=== PATIENT | female | born 1990 | race Caucasian/White ===

== ENCOUNTER 2019-07-28 18:10 | Observation (INO) | payer OTHER, SELFPAY ==
--- NOTE | ~2019-07-28 | CT_ITS ---
EXAMINATION: CT abdomen pelvis w con EXAM DATE: 07/28/2019 20:17 INDICATION: Abdominal pain. TECHNIQUE: Spiral CT of the abdomen and pelvis was performed following intravenous injection of 100 m L Omnipaque 350. Axial, coronal and sagittal images were reviewed. The dose-length product (DLP) fo r this examination was 205.25 mGy-cm. The exposure was tailored according to patient size (auto mA e xposure control), and iterative reconstruction (ASIR) was used as additional dose reduction technique . There is no prior study for comparison. FINDINGS: Bilobulated arterially enhancing small right liver lobe region likely flash filling hemangi madan or benign perfusion anomaly. No suspicious liver lesions. Spleen, adrenal glands, pancreas are un remarkable. There are cholecystectomy clips. Portal and splenic veins are patent. Kidneys enhance s ymmetrically. There is no hydronephrosis. The uterus is retroverted and morphologically normal. The bladder is collapsed at time of imaging limiting evaluation. There is no retroperitoneal or pelv ic lymphadenopathy. Probable identification of a normal appendix. No pericecal inflammation. The stomach and small johanna l are unremarkable. There is expected amount of colonic stool. No free intraperitoneal gas. The heart is normal in size. There are no pericardial or pleural effusions. The lung bases are unremark able. The bones are unremarkable. IMPRESSION: 1. No acute intra-abdominal findings. Reviewed, dictated and finalized at location A. ESS TRACK VEHICLE MECHANIC
--- NOTE | ~2019-07-28 | US_ITS ---
EXAMINATION: US pelvic complete w TV DATE: 07/29/2019 09:59 INDICATION: Pelvic pain. Mid abdominal pain. TECHNIQUE: Multiple transabdominal and transvaginal sonographic images of the pelvis were obtained. COMPARISON: CT abdomen and pelvis 07/28/2019 FINDINGS: TRANSABDOMINAL ULTRASOUND: The uterus measures 6.6 x 6.0 x 3.7 cm. There is no free fluid in the pelvis. TRANSVAGINAL ULTRASOUND: The endometrial complex measures 7 mm in thickness. There are small nabothian cysts in the cervix. Th e right ovary measures 3.1 x 1.5 x 1.2 cm. The left ovary measures 3.3 x 2.8 x 2.0 cm. There is shea l vascular flow in the ovaries. IMPRESSION: 1. Normal pelvis. Reviewed, dictated and finalized at location A. UTER SYSTEMS INTEGRATOR IMPRESSION: 1. Normal pelvis.
[2019-07-28 18:53] VITALS: BP 94/64; PULSE 100; RESP 18; TEMP 36.3; O2SAT 99
--- NOTE | 2019-07-28 19:00 | ED.ABDPAIN ---
HPI - Abdominal Pain General Chief Complaint: Abdominal Pain Stated Complaint: severe abdominal pain Time Seen by Provider: 07/28/19 18:58 Source: patient and RN notes reviewed Mode of arrival: ambulatory Limitations: no limitations History of Present Illness HPI narrative: Pt is a 28 y/o female who presents to the ED with c/o intermittent diffuse lower ABD pain starting several months ago. She notes that she has had intense lower ABD pain accompanying her periods for the past several months. Pt states that she began her most recent period earlier today, noting that she was passing clots of blood this morning. She states that she was evaluated for her symptoms at [facility] in [place], [place] earlier today. According to their records, she was discharged home with Oxycodone. Pt notes that due to her pain persisting, she wanted to be re-evaluated. She reports nausea and vomiting accompanying her pain, but denies any diarrhea. Pt states that she is scheduled to receive a pelvic laparoscopy procedure by her BIOMETRIC FINGERPRINTING TECHNICIAN, Dr. Worley. elicited complaint: abdominal pain Onset (ago): month(s) (several) Pain Consistency: intermittent Location: other (diffuse lower ABD) Exacerbating factors: other (menstruation) Associated symptoms: nausea, vomiting and other (vaginal bleeding) Related Data Home Medications Medication Instructions Recorded Confirmed ibuprofen 400 mg PO PRN PRN 07/25/19 07/25/19 insulin lispro [Admelog U-100 3 unit CONTINUOUS SUBCUTANEOUS 07/25/19 07/25/19 Insulin lispro] INFUSION DIRECTED levothyroxine 25 mcg PO DAILY 07/25/19 07/25/19 pantoprazole [Protonix] 40 mg PO QAM 07/25/19 07/25/19 Allergies Allergy/AdvReac Type Severity Reaction Status Date / Time No Known Allergies Allergy Verified 07/25/19 09:26 Review of Systems Review of Systems: All systems reviewed & are unremarkable except as noted in HPI and below Gastrointestinal: Gastrointestinal: Reports abdominal pain (diffuse lower ABD pain), Denies diarrhea, Reports nausea and Reports vomiting Genitourinary: Genitourinary: Reports other (vaginal bleeding) [facility] Past Medical History Medical History Healthy female adult Surgical History Surgical History No significant past surgical history Exam Narrative: Exam Narrative: APPEARANCE: No acute distress, nontoxic, resting in bed HEENT: Normocephalic, atraumatic, OMM RESPIRATORY: No respiratory distress, clear to auscultation bilaterally with no rhonchi wheezing or rales CARDIOVASCULAR: RRR s murmur ABDOMINAL: Soft, nondistended, tender palpation right lower quadrant left lower quadrant, no tenderness right upper quadrant left upper quadrant, no rebound or guarding MUSCULOSKELETAl: Moves all extremities. No clubbing, cyanosis or edema. NEURO: Awake and alert. Following commands, speech normal, no focal deficits SKIN:: Warm, dry. Normal Color PSYCHIATRIC: Normal affect/mood Course Course Emergency Course: Reviewed records patient brought from [facility]. Patient states she has chronically low blood pressure in the 90s Patient continues to have abdominal pain at this time will admit Discussed with patient and family results of workup and diagnosis. Discussed need for admission. Patient and family understand and agree to current treatment plan Consultations Consultation #1: Discussed case with pt's BIOMETRIC FINGERPRINTING TECHNICIAN, Dr. Worley. Advised to admit the pt to his service. Date: 07/28/19 Time: 20:35 Vital Signs Vital signs: Vital Signs Temperature 97.3 F L 07/28/19 18:53 Pulse Rate 100 07/28/19 18:53 Respiratory Rate 18 07/28/19 18:53 Blood Pressure 94/64 L 07/28/19 18:53 Pulse Oximetry 99 07/28/19 18:53 Temperature 97.3 F L 07/28/19 18:53 Pulse Rate 100 07/28/19 18:53 Respiratory Rate 18 07/28/19 18:53 Blood Pressure 94/64 L 07/28/19 18:53 Pulse Oximetry 99 07/28/19 18:53
[2019-07-28] MEDS: SODIUM CHLORIDE 0.9% IV 1,000 ML 999 ML IV CONT (19:32)
[2019-07-28] MEDS: KETOROLAC 30 MG/ML VIAL (*BKC) IV PUSH (19:32)
[2019-07-28] MEDS: ONDANSETRON INJ 4 MG/2 ML VIAL IV PUSH ×2 (19:32→23:38)
[2019-07-28 19:51] LABS: Basophils Absolute Auto 0.1 K/mm3 (0.0-0.1); Basophils Percent Auto 0.8 % (0.2-1.2); Eosinophils Absolute Auto 0.1 K/mm3 (0-0.3); Eosinophils Percent Auto 1.5 % (0-4.4); Hematocrit 44.6 % (37.0-47.0); Immature Granulocyte Absolute 0.01 K/mm3 (0.00-0.031); Immature Granulocyte Percent A 0.1 % (0-0.5); Lymphocytes Absolute Auto 2.45 K/mm3 (0.9-3.2); Lymphocytes Percent Auto 33.4 % (18.3-44.2); Mean Corpuscular HGB Conc 33.6 g/dl (32-36); Mean Corpuscular Hemoglobin 30.9 pg (26-34); Mean Platelet Volume 9.7 fl (7.4-10.4); Monocytes Absolute Auto 0.5 K/mm3 (0.1-0.6); Monocytes Percent Auto 7.1 % (2.6-8.5); Neutrophils Absolute Auto 4.2 K/mm3 (1.3-6.7); Neutrophils Percent Auto 57.1 % (45.5-73.1); Platelet Count Result 328 k/mm3 (150-375); Red Blood Count 4.85 M/mm3 (4.2-5.4); White Blood Count 7.3 K/mm3 (4.5-10.0)
[2019-07-28 19:56] LABS: Add Urine Microscopic? YES; Appearance Urine Clear (Clear); Bilirubin Urine Negative (Negative); Blood Urine Negative (Negative); Color Urine Yellow (Yellow); Glucose Urine UA Negative (Negative); Ketones Urine Trace mg/dL (Negative); Leukocyte Esterase Ur Negative LEU/UL (Negative); Mucus Urine Few /lpf; Nitrate Urine Negative (Negative); Protein Urine Negative (Negative); RBC Urine 0-2 /hpf (0-2); Specific Grav Ur 1.014 (1.001-1.035); Squamous Epithelial Cell Urine Many /hpf (Few); WBC Urine 0-3 /hpf
[2019-07-28 20:03] LABS: Alanine Aminotransferase 31 U/L (4-35); Albumin Level 4.8 g/dL (3.5-5.1); Alkaline Phosphatase 93 U/L (38-126); Aspartate Amino Transferase 36 U/L (14-36); Bilirubin,Total 0.6 mg/dL (0.2-1.3); Blood Urea Nitrogen 15 mg/dL (7-17); Calcium 10.1 mg/dL (8.4-10.2); Carbon Dioxide 28 mmol/L (22-30); Chloride 98 mmol/L (98-107); Estimated CRCL calculation 92 ml/min; Estimated Glomerular Filt Rate > 60; Glucose 143 mg/dL (65-105); Potassium 4.3 mmol/L (3.4-5.0); Sodium 138 mmol/L (137-145)
[2019-07-28 21:34] VITALS: BP 97/72; PULSE 81; RESP 19; TEMP 36.6; O2SAT 100
[2019-07-28 22:00] VITALS: BP 114/65; PULSE 92; RESP 18; TEMP 36.7; O2SAT 98; BMI 18.3
--- NOTE | 2019-07-28 22:07 | ADMGEN ---
This patient, Steph Camacho, was admitted to Medical Room 347-. Patient/family oriented to hospital policies and general routines including ID bracelet, bed and alarms, visiting hours, pain management, procedures, bathroom and other care routines, personal items, smoking policy, room service/diet, and visiting hours. Valuables list has been completed. Information on how to activate the Rapid Response Team has been discussed. Patient/Family are encouraged to report perceived risks to care and to ask questions if they do not understand what they are told or what they should do.
[2019-07-28] MEDS: LACTATED RINGERS 1,000 ML 125 ML IV CONT (22:15)
[2019-07-29] MEDS: ONDANSETRON INJ 4 MG/2 ML VIAL IV PUSH ×3 (04:01→21:19)
[2019-07-29 06:00] VITALS: BP 101/63; PULSE 81; RESP 16; TEMP 36.6; O2SAT 100
[2019-07-29] MEDS: LACTATED RINGERS 1,000 ML 125 ML IV CONT ×3 (06:12→22:34)
[2019-07-29 06:37] LABS: Basophils Percent Auto 0.5 % (0.2-1.2); Eosinophils Absolute Auto 0.1 K/mm3 (0-0.3); Eosinophils Percent Auto 1.7 % (0-4.4); Hematocrit 35.5 % (37.0-47.0); Hemoglobin 11.7 g/dL (12.0-15.0); Immature Granulocyte Absolute 0.01 K/mm3 (0.00-0.031); Immature Granulocyte Percent A 0.2 % (0-0.5); Lymphocytes Absolute Auto 2.35 K/mm3 (0.9-3.2); Lymphocytes Percent Auto 40.4 % (18.3-44.2); Mean Corpuscular Volume 93.9 fl (80-100); Mean Platelet Volume 10.1 fl (7.4-10.4); Monocytes Absolute Auto 0.5 K/mm3 (0.1-0.6); Monocytes Percent Auto 8.4 % (2.6-8.5); Neutrophils Absolute Auto 2.8 K/mm3 (1.3-6.7); Neutrophils Percent Auto 48.8 % (45.5-73.1); Platelet Count Result 264 k/mm3 (150-375); Red Blood Count 3.78 M/mm3 (4.2-5.4); Red Cell Distribution Width 11.9 % (11.5-14.5); White Blood Count 5.8 K/mm3 (4.5-10.0)
[2019-07-29 06:49] LABS: Alanine Aminotransferase 19 U/L (4-35); Albumin Level 3.2 g/dL (3.5-5.1); Alkaline Phosphatase 83 U/L (38-126); Aspartate Amino Transferase 21 U/L (14-36); Bilirubin,Total 0.2 mg/dL (0.2-1.3); Blood Urea Nitrogen 16 mg/dL (7-17); Calcium 8.2 mg/dL (8.4-10.2); Carbon Dioxide 26 mmol/L (22-30); Chloride 102 mmol/L (98-107); Estimated CRCL calculation 92 ml/min; Estimated Glomerular Filt Rate > 60; Glucose 244 mg/dL (65-105); Sodium 134 mmol/L (137-145)
--- NOTE | 2019-07-29 13:11 | PM.IMHP ---
H&P: HPI History of Present Illness Chief complaint: Abdominal pain-intractable Narrative: Steph Camacho is a 28 year old female this patient is a 28-year-old female presents for severe pelvic pain. Patient is incapacitated with pelvic pain. It appears to be strictly associated with her bleeding. She started having a regular. Yesterday and shortly after that she started having severe pain. Patient is known to have pelvic pain. She was diagnosed with pelvic pain in the clinic. She is also known to have some severe menorrhagia. She is not bleeding much at this time. She has a surgical plan that was proceed later this month. That includes diagnostic laparoscopy with tubal and endometrial ablation. She denies any nausea, vomiting, fever, chills. She denies any chest pain or shortness of breath. She reports normal bowel movements. Review of Systems Constitutional: Constitutional: Reports no additional constitutional complaints, Denies fatigue, Denies headache(s), Denies lethargy and Denies weakness Eyes: Eyes: Reports no additional eye complaints, Denies blurry vision and Denies photophobia ENT: Reports as per HPI, Denies headache(s) and Denies neck pain Cardiovascular: Cardiovascular: Denies chest pain, Denies diaphoresis, Denies leg edema, Denies palpitations and Denies dyspnea Respiratory: Respiratory: Denies hemoptysis, Denies dyspnea and Denies wheezing Gastrointestinal: Gastrointestinal: Denies abdominal pain, Denies melena, Denies bloating, Denies hematochezia, Denies nausea and Denies vomiting Genitourinary: Genitourinary: Reports no additional female genitourinary complaints Musculoskeletal: Musculoskeletal: Denies joint swelling, Denies neck pain, Denies numbness and Denies stiffness Neurologic: Denies Abnormal speech present, Denies confusion, Denies headache(s), Denies numbness and Denies weakness Psychiatric: Psychiatric: Denies anxiety, Denies confusion, Denies depression, Denies homicidal ideation and Denies suicidal ideation Endocrine: Endocrine: Denies fatigue and Denies palpitations Allergic/Immunologic: Allergic/Immunologic: Denies wheezing PMFSH Past Medical History Medical History Healthy female adult Surgical History Surgical History No significant past surgical history Social History Social History Alcohol intake: never Substance use: never Gender identity (if verbalized by the patient): Female Spiritual care concerns: No Agree to blood products: No Meds Home Medications and Allergies Home Medications Medication Instructions Recorded Confirmed Type ibuprofen 400 mg PO Q4-6H PRN 07/25/19 07/28/19 History insulin lispro [Admelog U-100 3 unit CONTINUOUS SUBCUTANEOUS 07/25/19 07/28/19 History Insulin lispro] INFUSION DIRECTED pantoprazole [Protonix] 40 mg PO QAM 07/25/19 07/28/19 History levothyroxine 25 mcg PO DAILY 07/28/19 07/28/19 History Allergies Allergy/AdvReac Type Severity Reaction Status Date / Time No Known Allergies Allergy Verified 07/25/19 09:26 Vital Signs Vital Signs - 24 hr 07/28/19 18:53 07/28/19 21:34 07/28/19 22:00 Temperature 97.3 F L 97.9 F 98.1 F Pulse Rate 100 81 92 Respiratory Rate 18 19 18 Blood Pressure 94/64 L 97/72 L 114/65 Pulse Oximetry 99 100 98 07/29/19 06:00 Temperature 97.8 F Pulse Rate 81 Respiratory Rate 16 Blood Pressure 101/63 Pulse Oximetry 100 Exam Const: General: healthy appearing, comfortable and no acute distress; No confused Orientation/consciousness: No confused Eyes: Direct Ophthalmoscopy: No photophobia Resp: Auscultation: clear to auscultation bilaterally, no rales, no rhonchi and no wheezes Cardio: Rate: regular rate Heart sounds: no click, no murmurs and no rubs GI: Inspection: non-distended GI Palp: No abdominal tenderness Auscultation: normal bowel sounds Neuro: General: No
[2019-07-29] MEDS: DEXTROSE 50% 25 GM/50 ML SYRINGE IV PUSH (13:21)
[2019-07-29 13:59] LABS: Glucose Point of Care 45 (65-105)
[2019-07-29 13:59] LABS: Glucose Point of Care 144 (65-105)
[2019-07-29 13:59] LABS: Glucose Point of Care 41 (65-105)
[2019-07-29 13:59] LABS: Glucose Point of Care 43 (65-105)
[2019-07-29 14:00] VITALS: BP 92/59; PULSE 89; RESP 16; TEMP 36.2; O2SAT 99
[2019-07-29 14:27] VITALS: BMI 18.3
[2019-07-29] MEDS: ESTROGENS, CONJUGATED 25 MG/5 ML VIAL IM (14:43)
[2019-07-29] MEDS: WATER, STERILE FOR INJECTION 10 ML VIAL XX (15:06)
[2019-07-29 16:49] LABS: Glucose Point of Care 228 (65-105)
[2019-07-29 21:33] LABS: Glucose Point of Care 223 (65-105)
[2019-07-29 22:00] VITALS: BP 82/54; PULSE 80; RESP 16; TEMP 36.2; O2SAT 100
[2019-07-29] MEDS: LACTATED RINGERS 500 ML 999 ML IV CONT (22:31)
--- NOTE | 2019-07-29 22:38 | ECG_ITS ---
Measurements Intervals Claude Rate: 86 P: 43 MT: 161 QRS: 68 QRSD: 78 T: 58 QT: 375 QTc: 449 Interpretive Statements SINUS RHYTHM NORMAL ECG Electronically Signed On 07-30-2019 7:27:25 CLOTH EXAMINER by Pete Hernandez D.O.
[2019-07-29 23:42] VITALS: BP 109/68
[2019-07-30] MEDS: LACTATED RINGERS 1,000 ML 125 ML IV CONT (03:17)
[2019-07-30] MEDS: ONDANSETRON INJ 4 MG/2 ML VIAL IV PUSH ×2 (03:19→09:00)
[2019-07-30 05:40] VITALS: BP 110/64; PULSE 92; RESP 18; TEMP 36.1; O2SAT 98
[2019-07-30 05:41] LABS: Glucose Point of Care 200 (65-105)
--- NOTE | 2019-07-30 05:43 | PC.NURSE ---
Patient has been NPO since midnight
[2019-07-30 10:00] LABS: Hematocrit 33.4 % (37.0-47.0); Hemoglobin 11.3 g/dL (12.0-15.0); Mean Corpuscular HGB Conc 33.8 g/dl (32-36); Mean Corpuscular Hemoglobin 31.6 pg (26-34); Mean Corpuscular Volume 93.3 fl (80-100); Platelet Count Result 262 k/mm3 (150-375); Red Blood Count 3.58 M/mm3 (4.2-5.4); Red Cell Distribution Width 11.9 % (11.5-14.5); White Blood Count 6.6 K/mm3 (4.5-10.0)
[2019-07-30 10:16] LABS: Blood Urea Nitrogen 12 mg/dL (7-17); Calcium 8.3 mg/dL (8.4-10.2); Carbon Dioxide 28 mmol/L (22-30); Chloride 101 mmol/L (98-107); Estimated CRCL calculation 108 ml/min; Estimated Glomerular Filt Rate > 60; Glucose 192 mg/dL (65-105); Potassium 3.8 mmol/L (3.4-5.0); Sodium 132 mmol/L (137-145)
[2019-07-30 12:24] LABS: Glucose Point of Care 173 (65-105)
--- NOTE | 2019-07-30 13:22 | PM.GYNPNOP ---
ASW SPECIALIST - A/P Assessment and plan (1) Dysmenorrhea: Code(s): N94.6 - Dysmenorrhea, unspecified Status: Acute (2) Intractable lower abdominal pain: Code(s): R10.30 - Lower abdominal pain, unspecified Status: Acute Assessment and Plan: Successful trial of oral pain medication was conducted this morning. She got IM Premarin yesterday. Her bleeding has tapered off. We have agreed to discharge her home a with oral pain medication. She is going to have diagnostic scope in ablation next week. Time Spent With Patient Time: Total time spent is greater than 50% in coordination of care (as documented) at patient's floor/unit and/or counseling patient: Time with patient: less than 15 minutes ASW SPECIALIST- PN:Subj Post-Op Subjective Date/time seen: 07/30/19 13:22 The patient was given an IM Premarin yesterday. Her bleeding has tapered off. Her pain is improved. She was given oral pain medication. Her pain is reasonably managed. Subjective: patient reports feeling better and patient is tolerating oral intake Exam Const: General: healthy appearing, comfortable and no acute distress Resp: Auscultation: clear to auscultation bilaterally, no rales, no rhonchi and no wheezes Cardio: Rate: regular rate Heart sounds: no click, no murmurs and no rubs GI: Inspection: non-distended GI Palp: No abdominal tenderness Auscultation: normal bowel sounds Extrem: General: normal to inspection, no pedal edema and no calf tenderness ASW SPECIALIST - PN: Obj Data Vital Signs Vital Signs: Vital Signs - 24 hr 07/29/19 14:00 07/29/19 22:00 07/29/19 23:42 Temperature 97.1 F L 97.2 F L Pulse Rate 89 80 Respiratory Rate 16 16 Blood Pressure 92/59 L 82/54 L 109/68 Pulse Oximetry 99 100 07/30/19 05:40 Temperature 97 F L Pulse Rate 92 Respiratory Rate 18 Blood Pressure 110/64 Pulse Oximetry 98 Intake/Output Intake/Output: Intake & Output 07/27/19 07/28/19 07/29/19 07/30/19 23:59 23:59 23:59 23:59 Intake Total 1000 4630 2690 Output Total 1800 200 Balance 1000 2830 2490 Meds/Results Medications: Active Medications Generic Name Dose Route Start Last Admin Trade Name Rohit PRN Reason Stop Dose Admin Dextrose 12.5 gm 07/29/19 12:49 07/29/19 13:21 Dextrose 50% Syringe IV PUSH 12.5 gm PRN PRN Administration Hypoglycemia Protocol Fentanyl Citrate 50 mcg 07/29/19 08:05 07/30/19 09:00 Sublimaze IV PUSH 50 mcg Q2HR PRN Administration Pain Rated 7-10 Glucagon 1 mg 07/29/19 12:49 Glucagon For Inj IM PRN PRN Hypoglycemia Protocol Glucose 15 gm 07/29/19 12:49 Glutose 15 PO PRN PRN Hypoglycemia Protocol Dextrose 1,000 mls @ 100 mls/hr 07/29/19 12:49 Dextrose 5% 1,000 Ml IVPB PRN PRN Hypoglycemia Protocol Insulin Aspart 2 - 5 units 07/29/19 17:00 07/30/19 11:34 Novolog SUB-Q Not Given TIDWM RACH Protocol Naloxone HCl 2 mg 07/29/19 13:03 Narcan IV PUSH ONCE PRN Opioid Reversal Ondansetron HCl 4 mg 07/28/19 20:48 07/30/19 09:00 Zofran Inj IV PUSH 4 mg Q4H PRN Administration Nausea Radiology Results: ITS Impressions Abdomen/Pelvis CT 07/28/19 20:20 IMPRESSION: 1. No acute intra-abdominal findings. Pelvic/Transvag US 07/29/19 10:05 IMPRESSION: 1. Normal pelvis. Labs CBC & Chem 7: 07/30/19 09:29 07/30/19 09:29 Labs: Laboratory Results - last 24 hr 07/29/19 07/29/19 07/29/19 12:45 13:01 13:18 WBC RBC Hgb Hct MCV MCH MCHC RDW Plt Count MPV Sodium Potassium Chloride Carbon Dioxide BUN Creatinine Estim Creat Clear Calc Estimated GFR Glucose POC Capillary Glucose 41 L* 45 L* 43 L* Calcium 07/29/19 07/29/19 07/29/19 13:44 16:44 21:25 WBC RBC Hgb Hct MCV MCH MCHC RDW Plt Count MPV So
--- NOTE | 2019-07-30 14:41 | PM.IMCN ---
Assessment and Plan Assessment and plan (1) Dysmenorrhea: Code(s): N94.6 - Dysmenorrhea, unspecified Status: Acute Assessment and Plan: Steph Camacho is a 28 year old female presented emergency department with a complaint of pelvic pain patient has history of endometriosis and menometrorrhagia patient was seen by her OBGYN started the patient on IV pain medication as well as or we were consulted as patient has history of type 1 diabetes and using her pump, and the blood sugars are reasonably well controlled patient denies any complaint of polyuria polydipsia polyphagia, denies any fever or chills, (2) Diabetes: Code(s): E11.9 - Type 2 diabetes mellitus without complications Status: Acute Assessment and Plan: Patient with history of type 1 diabetes on insulin pump which is managed by herself will continue to monitor with sliding scale if needed HPI Data of Consult Consult date: 08/04/19 Requesting Physician: Andreas Worley MD Primary Care Provider: Rodney Grier MD Consult Narrative Narrative: Steph Camacho is a 28 year old female presented emergency department with a complaint of pelvic pain patient has history of endometriosis and menometrorrhagia patient was seen by her OBGYN started the patient on IV pain medication as well as or we were consulted as patient has history of type 1 diabetes and using her pump, and the blood sugars are reasonably well controlled patient denies any complaint of polyuria polydipsia polyphagia, denies any fever or chills, Review of Systems Review of Systems: All systems reviewed & are unremarkable except as noted in HPI and below PMFSH Past Medical History Medical History Healthy female adult Surgical History Surgical History No significant past surgical history Social History Social History Smoking status: Never smoker Alcohol intake: never Substance use: never Gender identity (if verbalized by the patient): Female Spiritual care concerns: No Agree to blood products: No Meds Home Medications and Allergies Home Medications Medication Instructions Recorded Confirmed Type ibuprofen 400 mg PO Q4-6H PRN 07/25/19 07/28/19 History insulin lispro [Admelog U-100 3 unit CONTINUOUS SUBCUTANEOUS 07/25/19 07/28/19 History Insulin lispro] INFUSION DIRECTED pantoprazole [Protonix] 40 mg PO QAM 07/25/19 07/28/19 History levothyroxine 25 mcg PO DAILY 07/28/19 07/28/19 History hydrocodone-acetaminophen 1 - 2 tablet PO Q4H PRN #35 tablet 07/30/19 Rx Allergies Allergy/AdvReac Type Severity Reaction Status Date / Time No Known Allergies Allergy Verified 07/25/19 09:26 Vital Signs Vital Signs - 24 hr 07/29/19 22:00 07/29/19 23:42 07/30/19 05:40 Temperature 97.2 F L 97 F L Pulse Rate 80 92 Respiratory Rate 16 18 Blood Pressure 82/54 L 109/68 110/64 Pulse Oximetry 100 98 Exam Narrative: Exam Narrative: Patient does appear to be in pain Const: General: no acute distress and uncomfortable HENMT: General nose exam: nares normal Mouth: Yes moist mucous membranes Eyes: General: appearance normal, both eyes and all related structures Sclera: sclerae normal Neck: Neck: supple Resp: Effort & Inspection: normal respiratory effort Auscultation: clear to auscultation bilaterally Cardio: Rate: regular rate Rhythm: regular rhythm GI: Auscultation: normal bowel sounds Other: Diffusely tender Skin: General skin exam: normal color and no rashes or lesions noted Neuro: Speech: normal speech Sensory Exam: normal sensation Extrem: General: normal to inspection Psych: Affect: anxious affect Results Labs CBC & Chem 7: 07/30/19 09:29 07/30/19 09:29 Labs: Short CBC 07/30/19 Range/Units 09:29 WBC 6.6 (4.5-10.0) K/mm3 Hgb 11.3 L (12.0-15.0) g/dL Hct 33.4 L (37.0-
--- NOTE | 2019-08-16 12:56 | PM.DS ---
DS: Diagnosis Admitting Diagnosis Admitting Diagnosis: Lower abdominal pain, unspecified DS: Summary Hospital Course Reason for hospitalization: Severe pelvic pain Hospital Course: Patient was observed in the hospital for pain management and evaluation of pelvic pain. Over time she had better pain control. We able to discharge her after about 48 hours in the hospital. She was discharged to home with the hopes of completing a procedure to help for her bleeding and dysmenorrhea within a short time frame. Status at Discharge Functional status at discharge: independent ambulation Time Spent with Patient Time attestation: Total time spent providing and/or coordinating discharge services: Time spent: Less than 30 minutes Discharge Plan Discharge Consulting providers: Marisa Renee ; Pete Hernandez ; Mukund Troncoso V. ; Kulwinder Rankin Discharging Clinician: Andreas Worley Patient Disposition: Home, Self-Care Activity: as tolerated Diet: diabetic Patient Instructions: Antibiotic Form, Conjugated Estrogens (By injection), Pain Management Older Adults (DC), Opioid Pain Management (DC) Stand Alone Forms: General Discharge Information Follow-up/Referrals: primary care provider [Other] - 1 Week Discharge Medications: Continued pantoprazole [Protonix] 40 mg Tablet,Delayed Release (Dr/Ec) 40 mg PO QAM RF: 0 insulin lispro [Admelog U-100 Insulin lispro] 100 unit/mL Solution 3 unit continuous subcutaneous infusion DIRECTED RF: 0 ibuprofen 400 mg Tablet 400 mg PO Q4-6H PRN (Reason: Pain) RF: 0 levothyroxine 25 mcg Tablet 25 mcg PO DAILY RF: 0 No Action hydrocodone-acetaminophen 5-325 mg tablet 1 - 2 tablet PO Q4H PRN (Reason: pain) Qty: 25 RF: 0 Date of admission: 07/28/19 20:48 Primary Care Provider: Rodney Grier Admitting Provider: Andreas Worley Discharge Date/Time: 07/30/19 14:56 Attending physician on admission: Andreas Worley Condition: Stable
== END 2019-07-30 14:56 | disposition home or self-care (01) ==
LOC: ANHED 19:06 → ANH3MED 20:58
PROVIDERS: Family Medicine; Admitting Provider Obstetrics & Gynecology; Emergency Provider Emergency Medicine; PCP Family Medicine; Visit Provider Obstetrics & Gynecology
DX: R10.2 Pelvic and perineal pain (principal); N94.6 Dysmenorrhea, unspecified; N92.0 Excessive and frequent menstruation with regular cycle; E10.9 Type 1 diabetes mellitus without complications; Z79.4 Long term (current) use of insulin; Z96.41 Presence of insulin pump (external) (internal); Z79.899 Other long term (current) drug therapy
CPT/HCPCS: 36415; 74177; 76830; 76856; 80048; 80053; 81001; 81025; 85025; 85027; 93005; 96361; 96372; 96374; 96375; 96376; 99285; A9270; G0378; G0379; J1410; J1885; J2405; J3010; J7030; J7120; Q9967

== ENCOUNTER 2019-08-22 17:32 | Inpatient (IN) | payer OTHER, SELFPAY ==
[2019-08-22] VITALS (12 sets, daily range): BP systolic 86–113; BP diastolic 47–82; PULSE 93–109; RESP 13–22; TEMP 36.6–36.9; O2SAT 98–100
--- NOTE | ~2019-08-22 | CT_ITS ---
EXAMINATION: CT abdomen pelvis w con DATE: 08/22/2019 20:37 INDICATION: Abdominal pain TECHNIQUE: Computed tomography (CT) of the abdomen and pelvis was performed with 100 cc Omnipaque 350 intravenous contrast. The dose-length product was 203.34 mGy-cm. Automated exposure control and iterative reconstruction technique were employed. COMPARISON: CT dated 08/14/2019 FINDINGS: Lung bases are unremarkable. Heart size normal. No pleural or pericardial effusion. Status post cholecystectomy. The liver, spleen, pancreas, adrenal glands and kidneys are unremarkable. 3.7 c m left ovarian cyst. Small amount of free fluid in the left adnexa. There is fluid in the endometrial canal. No evidence for abscess. There is fluid with air-fluid levels throughout the small bowel whic h may reflect ileus or enteritis. Interval resolution of free air since prior examination. No acute o sseous abnormality. No significant vascular abnormality. No lymphadenopathy. IMPRESSION: 1. Small bowel contains fluid throughout with a few scattered air-fluid levels, ileus versus enteriti s. 2: 3.7 cm left ovarian cyst with small amount of adjacent free fluid. 3: Fluid in the endometrial canal, nonspecific. Reviewed, dictated and finalized at location A. ERY ATTENDANT IMPRESSION: 1. Small bowel contains fluid throughout with a few scattered air-fluid levels, ileus versus enteritis. 2: 3.7 cm left ovarian cyst with small amount of adjacent free fluid. 3: Fluid in the endometrial canal, nonspecific.
--- NOTE | ~2019-08-22 | XR_ITS ---
EXAMINATION: XR abdomen obstructive series DATE: 08/23/2019 08:03 INDICATION: Abdominal pain. TECHNIQUE: Upright and supine views of the abdomen on 3 radiographs were obtained. COMPARISON: CT abdomen and pelvis 08/22/2019 FINDINGS: There are no dilated loops of bowel. There is a large volume of stool in the colon. No free intraperitoneal gas. Surgical clips in the right upper quadrant are likely from cholecystectomy. IMPRESSION: 1. Nonobstructive bowel gas pattern. Reviewed, dictated and finalized at location A. ER
--- NOTE | ~2019-08-22 | XR_ITS ---
EXAMINATION: XR abdomen obstructive series DATE: 08/24/2019 09:40 INDICATION: Abdomen pain. Follow up obstipation/enteritis. TECHNIQUE: Supine and upright views of the abdomen. FINDINGS: 08/23/2019 The visualized lung parenchyma is normal.. There is a nonobstructive bowel gas pattern. Gas and stool are seen throughout the colon to the level of the rectum. There is no free air. Moderate colonic fe brittany loading. There are cholecystectomy clips. IMPRESSION: 1. No acute abdominal abnormality. Reviewed, dictated and finalized at location A. OOLER
--- NOTE | ~2019-08-22 | US_ITS ---
EXAMINATION: US pelvic complete DATE: 08/25/2019 16:35 INDICATION: Status post operative infection TECHNIQUE: Multiple transabdominal sonographic images of the pelvis were obtained. Patient refused tr ansvaginal imaging. COMPARISON: None. FINDINGS: The anteverted uterus measures 9.6 x 2.6 x 6.9 cm. The endometrial complex measures 6-7 mm in thickn ess. The right ovary measures 3.7 x 2.3 x 2.2 cm. After flow is identified in the right ovary on colo r Doppler. The left ovary is not visualized. There is a small amount of free fluid in the cul-de-sac. IMPRESSION: 1. Small amount of likely physiologic free fluid in the cul-de-sac. Otherwise unremarkable pelvic ult rasound. Reviewed, dictated and finalized at location A. OFF DRIVER IMPRESSION: 1. Small amount of likely physiologic free fluid in the cul-de-sac. Otherwise u nremarkable pelvic ultrasound.
[2019-08-22 18:46] LABS: Basophils Absolute Auto 0.1 K/mm3 (0.0-0.1); Basophils Percent Auto 1.3 % (0.2-1.2); Eosinophils Absolute Auto 0.1 K/mm3 (0-0.3); Eosinophils Percent Auto 2.2 % (0-4.4); Hematocrit 38.9 % (37.0-47.0); Immature Granulocyte Absolute 0.01 K/mm3 (0.00-0.031); Immature Granulocyte Percent A 0.2 % (0-0.5); Lymphocytes Absolute Auto 1.42 K/mm3 (0.9-3.2); Mean Corpuscular HGB Conc 33.4 g/dl (32-36); Mean Corpuscular Hemoglobin 30.5 pg (26-34); Mean Corpuscular Volume 91.3 fl (80-100); Mean Platelet Volume 9.9 fl (7.4-10.4); Monocytes Absolute Auto 0.6 K/mm3 (0.1-0.6); Monocytes Percent Auto 11.5 % (2.6-8.5); Neutrophils Absolute Auto 3.2 K/mm3 (1.3-6.7); Neutrophils Percent Auto 58.8 % (45.5-73.1); Platelet Count Result 304 k/mm3 (150-375); Red Blood Count 4.26 M/mm3 (4.2-5.4); Red Cell Distribution Width 12.3 % (11.5-14.5); White Blood Count 5.5 K/mm3 (4.5-10.0)
[2019-08-22 18:47] LABS: Glucose Point of Care 111 (65-105)
[2019-08-22 19:00] LABS: Alanine Aminotransferase 22 U/L (4-35); Albumin Level 4.3 g/dL (3.5-5.1); Alkaline Phosphatase 60 U/L (38-126); Aspartate Amino Transferase 30 U/L (14-36); Bilirubin,Total 0.7 mg/dL (0.2-1.3); Blood Urea Nitrogen 13 mg/dL (7-17); Calcium 9.3 mg/dL (8.4-10.2); Carbon Dioxide 22 mmol/L (22-30); Chloride 99 mmol/L (98-107); Estimated CRCL calculation 111 ml/min; Estimated Glomerular Filt Rate > 60; Glucose 122 mg/dL (65-105); Potassium 4.1 mmol/L (3.4-5.0); Sodium 133 mmol/L (137-145)
--- NOTE | 2019-08-22 19:28 | ED.FEVER ---
HPI - Fever General Chief Complaint: Fever Stated Complaint: FEVER, ABD PAIN, VOMITING Time Seen by Provider: 08/22/19 19:18 Source: patient and old records reviewed Mode of arrival: EMS Limitations: no limitations History of Present Illness HPI Narrative: The pt is a 28 y/o female who presents to the ED, via EMS, c/o fever onset 2-3 days ago. Pt states that her fever peaked at around 101 degrees at home, while EMS had a recorded temperature of 100.4 today. Pt states that she had an endometrial ablation, tubal ligation, and ovarian cyst removal. Old records indicate this was performed on 08/06/[address] Worley. Pt states that she had a bad infection at that time, so she was kept inpatient and discharged six days ago. Pt states that she received [place], Levofloxacin, and Metronidazole. She states that she has not been able to take her medications due to N/V. Pt reports cramping and stabbing lower ABD pain and brown vaginal discharge. MD elicited complaint: fever Onset (ago): day(s) (2-3) Context: recent procedure (Endometrial ablation, tubal ligation, ovarian cyst removal) Associated symptoms: abdominal pain (Cramping, stabbing, lower), nausea, vomiting and vaginal discharge (Brown) Treatments prior to arrival fever: antibiotics (Metronidazole and Levofloxacin) Related Data Home Medications Medication Instructions Recorded Confirmed ibuprofen 400 mg PO Q4-6H PRN 07/25/19 08/23/19 insulin lispro [Admelog U-100 3 unit CONTINUOUS SUBCUTANEOUS 07/25/19 08/23/19 Insulin lispro] INFUSION DIRECTED pantoprazole [Protonix] 40 mg PO QAM 07/25/19 08/23/19 levothyroxine 25 mcg PO QAM 07/28/19 08/23/19 Allergies Allergy/AdvReac Type Severity Reaction Status Date / Time Latex, Natural Rubber Allergy Hives Verified 08/14/19 12:28 peanut oil Allergy Difficulty Verified 08/14/19 12:28 Breathing metoclopramide [From Reglan] AdvReac Anxiety Verified 08/23/19 00:26 Review of Systems Review of Systems: Narrative: Review of Systems Constitutional: Positive for fever. Gastrointestinal: Positive for nausea, vomiting, and cramping/stabbing lower ABD pain. Genitourinary: Positive for brown vaginal discharge. All systems reviewed & are unremarkable except as noted in HPI and below PMFSH Past Medical History Medical History (Updated 08/23/19 @ 01:01 by Izzy Rosario MD) Acute cervicitis Dysmenorrhea Endometritis GERD (gastroesophageal reflux disease) History of seizure As a child. History of UTI Hypothyroidism Ovarian cyst Type 1 diabetes mellitus Surgical History Surgical History (Updated 08/14/19 @ 19:02 by Sigrid Mejía PA-C) Status post cholecystectomy Status post endometrial ablation Status post ovarian cystectomy Status post tubal ligation Social History Social History (Updated 08/14/19 @ 19:03 by Sigrid Mejía PA-C) Social History: The patient lives in [place], [place] with her 8-year-old daughter. She is a [id number] mother. She denies alcohol and drug abuse. Smoking packs per day: 0.33 Smoking cigarettes per day: 6.6 Years smoked: 10 Smoking pack-years: 3.30 Smoking status: Current every day smoker Tobacco type: cigarettes Second hand tobacco smoke exposure: Yes (significant other smokes) Alcohol intake: never Substance use: former Substance use type: marijuana Gender identity (if verbalized by the patient): Female Spiritual care concerns: No Agree to blood products: Yes Comments PCP: Dr. Grier LINE PERSON: Dr. Worley Exam Narrative: Exam Narrative: Constitutional: Appears well-developed. No distress. HENT: Head: Normocephalic. Nose: Nose normal. Mouth/Throat: Oropharynx is clear and moist. Eyes: Conjunctiva are normal. Neck: Normal range of motion. Neck supple. Cardiovascular: Normal rate and regular rhythm. Pulmonary/Chest: Effort normal and breath sounds normal. Abdominal: Soft. There is bilateral lower abdominal tenderness. Musculoskeletal:
[2019-08-22] MEDS: KETOROLAC 15 MG/ML VIAL (*BKC) IV PUSH (20:05)
--- NOTE | 2019-08-22 20:46 | PC.NURSE ---
PT STILL C/O PAIN. MADE AWARE, NO NEW ORDERS
[2019-08-22] MEDS: TRIMETHOBENZAMIDE HCL 200 MG/2 ML VIAL IM (20:47)
[2019-08-22 22:15] LABS: Glucose Point of Care 87 (65-105)
[2019-08-22 23:30] LABS: Glucose Point of Care 93 (65-105)
[2019-08-23] VITALS: BP 108/61; PULSE 92; RESP 16; TEMP 36.8; O2SAT 100; BMI 19.2
--- NOTE | 2019-08-23 | ADMGEN ---
This patient, Steph Camacho, was admitted to 3 [facility] Surg Room 304-01. Patient/family oriented to hospital policies and general routines including ID bracelet, bed and alarms, visiting hours, pain management, procedures, bathroom and other care routines, personal items, smoking policy, room service/diet, and visiting hours. Valuables list has been completed. Information on how to activate the Rapid Response Team has been discussed. Patient/Family are encouraged to report perceived risks to care and to ask questions if they do not understand what they are told or what they should do.
[2019-08-23] MEDS: DEXTROSE 5%/0.45% SOD CHL 1,000 ML 100 ML IV CONT ×3 (00:05→19:23)
[2019-08-23] MEDS: SODIUM CHLORIDE 0.9% IV 500 ML 999 ML IV CONT (02:15)
[2019-08-23] MEDS: HYDROMORPHONE HCL 1 MG/ML INJ 0.5 MG IV PUSH ×5 (02:35→20:46)
[2019-08-23 05:45] VITALS: BP 112/66; PULSE 88; RESP 18
[2019-08-23 06:00] VITALS: BP 90/48; PULSE 81; RESP 16; TEMP 36.7; O2SAT 98
[2019-08-23] MEDS: LEVOTHYROXINE SODIUM INJ 100 MCG/5 ML VIAL 12.5 MCG IV PUSH (06:04)
[2019-08-23] MEDS: PROMETHAZINE HCL 25 MG/ML AMPUL IM (06:15)
[2019-08-23 06:20] VITALS: BP 88/48
[2019-08-23 06:30] LABS: Glucose Point of Care 185 (65-105)
[2019-08-23 06:35] LABS: Basophils Percent Auto 1.1 % (0.2-1.2); Eosinophils Absolute Auto 0.1 K/mm3 (0-0.3); Eosinophils Percent Auto 3.2 % (0-4.4); Hematocrit 34.8 % (37.0-47.0); Hemoglobin 11.6 g/dL (12.0-15.0); Immature Granulocyte Absolute 0.01 K/mm3 (0.00-0.031); Immature Granulocyte Percent A 0.3 % (0-0.5); Lymphocytes Absolute Auto 1.65 K/mm3 (0.9-3.2); Lymphocytes Percent Auto 43.4 % (18.3-44.2); Mean Corpuscular HGB Conc 33.3 g/dl (32-36); Mean Corpuscular Hemoglobin 30.8 pg (26-34); Mean Corpuscular Volume 92.3 fl (80-100); Mean Platelet Volume 9.8 fl (7.4-10.4); Monocytes Absolute Auto 0.6 K/mm3 (0.1-0.6); Monocytes Percent Auto 15.8 % (2.6-8.5); Neutrophils Absolute Auto 1.4 K/mm3 (1.3-6.7); Neutrophils Percent Auto 36.2 % (45.5-73.1); Platelet Count Result 252 k/mm3 (150-375); Red Blood Count 3.77 M/mm3 (4.2-5.4); Red Cell Distribution Width 12.3 % (11.5-14.5); White Blood Count 3.8 K/mm3 (4.5-10.0)
[2019-08-23 06:49] LABS: Blood Urea Nitrogen 16 mg/dL (7-17); Calcium 8.4 mg/dL (8.4-10.2); Carbon Dioxide 22 mmol/L (22-30); Chloride 100 mmol/L (98-107); Estimated CRCL calculation 96 ml/min; Estimated Glomerular Filt Rate > 60; Glucose 176 mg/dL (65-105); Magnesium 1.8 mg/dL (1.6-2.3); Potassium 3.6 mmol/L (3.4-5.0); Sodium 132 mmol/L (137-145)
--- NOTE | 2019-08-23 08:21 | PM.CNGS ---
Assessment and Plan Assessment and plan (1) Ileus: Onset Date: ~08/22/19 Code(s): K56.7 - Ileus, unspecified Status: Acute Assessment and Plan: This time I would recommend NPO status until it appears by radiology radiologic studies that the ileus is resolving. Will also follow clinically to see if the patient is passing flatus and having bowel movements. If not nauseated may move patient to clear liquids and try MiraLax p.o. in the next 24-48 hours. Even though she has been on antibiotics will check urinalysis since she is having increased pain after each void. (2) Ovarian cyst: Qualifiers: Laterality: left Qualified Code(s): N83.202 - Unspecified ovarian cyst, left side Code(s): N83.209 - Unspecified ovarian cyst, unspecified side Status: Acute (3) Pelvic pain: Code(s): R10.2 - Pelvic and perineal pain Status: Acute Assessment and Plan: This may be constipation vs the endometritis suspected by Dr. San. Will give Fleets enema this AM as Pt states she has not had a normal BM in sometime and none at all since Thrus. (4) Smoker: Code(s): F17.200 - Nicotine dependence, unspecified, uncomplicated Status: Acute (5) Type 1 diabetes mellitus: Code(s): E10.9 - Type 1 diabetes mellitus without complications Status: Acute (6) Status post endometrial ablation: Code(s): Z98.890 - Other specified postprocedural states Status: Acute History of Present Illness Consult details Consult date: 08/23/19 Reason for consult: abdominal pain Narrative: This patient is a pleasant 28-year-old white female who approximately 2 weeks ago underwent an elective laparoscopy, D&C, hysteroscopy with uterine ablation. Please see Dr. Adams's note for details. Patient states that Dr. San noted a cyst at the time of her laparoscopy and tubal ligation. Otherwise the laparoscopy was apparently unremarkable. During her D and C however, he apparently found a area of blood clot within the uterus and then proceeded to a uterine ablation. Since her surgery on 08/06/2019 she has typically had an increase in pain each time after she urinated. Otherwise she has been OK with the expected amount of abd pain [id number]. Approximately 7 days after her surgery she was admitted to the hospital and just went home about 5 days ago. At that time she was placed on IV antibiotics and she went home on metronidazole and Levaquin. She has continued to experience lower abdominal pain. She states that she took hydrocodone pain medication for several days after the initial surgery but because she does not like the way it makes her feel she stopped it and then has been trying to stay off of it. She became somewhat constipated while on the hydrocodone and this has not yet resolved. She denies diarrhea over the last 2-3 days. She has continued and was still on the metronidazole and Levaquin when she return to the emergency room last night. She was not running a fever here but claimed to have a fever of 102 at home yesterday. Patient's age states she continues to have a brownish discharge from the vagina and pain with urination. Repeat urinalysis was not done last night in the emergency room probably because she has been on the antibiotics but I think it is reasonable to repeat this. (This was ordered for this morning). Workup in the [facility] ER last night including a CT scan of the abdomen [place] pelvis revealed that the patient has what is appears to be either an ileus or enteritis of the small bowel. She also had some free fluid in the lower abdomen. This was compared to a CT scan done when she came into the hospital on 08/12/2019 and apparently at that time she still had a little free air or CO2 gas in the abdomen and this had resolved. There was also a 3.7 cm left ovarian cyst which is probably the cyst that Dr. san mention seen when he did the laparoscopy. At this time have discus
[2019-08-23] MEDS: GLYCERIN ADULT 1 SUPP.RECT RECTAL (10:06)
--- NOTE | 2019-08-23 11:29 | PM.IMHP ---
H&P: HPI History of Present Illness Chief complaint: ileus Narrative: Date of Service 08/23/19 The supervising physician for this history and physical is Dr. Fariba Martin. Ms. Camacho is a 28 yo F with history of type 1 diabetes, hypothyroidism, GERD who presented to the ED for evaluation of pelvic pain, vaginal discharge, and nausea and vomiting. She underwent diagnostic laparoscopy, bilateral tubal ligation, left ovarian cystectomy, and adhesiolysis, endometrial ablation with hysteroscopy by Dr. Worley 08/06/19 for pelvic pain and menorrhagia. She notes that after her procedure she developed pelvic pain, nausea, and vomiting and [facility]. She was discharged from the ED and she called Dr. Worley's office and I believe directed her to [facility] ED same day 08/14/19. She was admitted from 08/14/19 to 08/16/19 under the care of Dr. Worley during which time postoperative infection, and endometritis is documented and she was treated with IV ampicillin and discharged with oral Levaquin and metronidazole. She was also noted to have malodorous vaginal discharge at that time. She re-presented to the ED yesterday 08/22/19 again with pelvic pain, nausea, and vomiting. She is still having brown malodorous vaginal discharge. She describes a constant pain across her lower abdomen/pelvis on both sides with intermittent episodes of sharp stabbing pain that are occurring around 4-5 times per hour. She tells me her last BM was 2 days ago. She reports she stopped taking [place] at home 08/20 due to constipation that she attributed to narcotics. She reports still feeling nauseous this morning at time of my exam, however has not vomited since she has been here. She continues with significant pelvic pain this morning that she rates 8/10 at time my exam. She is not designated any relieving or aggravating factors to her pain. She denies any chest pain, shortness of breath, dizziness, or calf tenderness. She reports constipation; denies hematochezia, melena, or hematemesis. She reports a fever at home up to 101 but has been afebrile here. CT abdomen/pelvis shows small bowel ileus vs. enteritis, fluid in the endometrial canal, 3.7 cm left ovarian cyst with a small amount of adjacent free fluid. Dr. Adams has been consulted for postoperative pelvic pain, nausea and vomiting. Dr Wills has been consulted for postoperative ileus. Review of Systems Review of Systems: Narrative: Nausea and vomiting have improved. Persistent pelvic pain continues this morning. Malodorous brown vaginal discharge still noted this morning. Twelve systems were reviewed with pertinent positives and negatives as per HPI. Except as documented, all other systems were reviewed and are negative. [facility] Past Medical History Medical History (Updated 08/23/19 @ 12:54 by Janae Adams MD) Acute cervicitis Dysmenorrhea Endometritis GERD (gastroesophageal reflux disease) History of seizure As a child. History of UTI Hypothyroidism Ovarian cyst Type 1 diabetes mellitus Surgical History Surgical History (Updated 08/23/19 @ 12:14 by Sabra Bro PA-C) Status post cholecystectomy Status post endometrial ablation 08/06/19 Dr Worley. Status post ovarian cystectomy 08/06/19 Dr Worley. Status post tubal ligation 08/06/19 Dr Worley. Family History Family History Mother Diabetes mellitus Lupus (systemic lupus erythematosus) Scleroderma Renal disease Heart disease Grandparent Hypertension Social History Social History (Updated 08/23/19 @ 12:19 by Sabra Bro PA-C) Social History: The patient lives in [place], [place] with her 8-year-old daughter. 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 She tells me she smokes 7-8 cigarettes a day for the last 10 years. She reports occasional marijuana use. She denies alcohol use. Her PCP is Dr. Ceja
[2019-08-23] MEDS: SCOPOLAMINE 1.5 MG PATCH TRANSDERM (12:27)
--- NOTE | 2019-08-23 12:48 | WPDCN ---
Assessment and Plan Assessment and plan (1) Pelvic pain: Code(s): R10.2 - Pelvic and perineal pain Status: Acute Assessment and Plan: Likely secondary to ileus / constipation. Management per hospitalist / surgery (2) Ovarian cyst: Qualifiers: Laterality: left Qualified Code(s): N83.202 - Unspecified ovarian cyst, left side Code(s): N83.209 - Unspecified ovarian cyst, unspecified side Status: Acute Assessment and Plan: Small left ovarian cyst, unlikely to be causing acute symptoms. She had ovarian cystectomy at surgery 08/06. Symptoms are more prominent on her right side currently. Behzad need outpatient ultrasound in 6-8 weeks (3) Endometritis: Code(s): N71.9 - Inflammatory disease of uterus, unspecified Status: Acute Assessment and Plan: Recent endometritis but no current evidence of infection. Observe closely for signs / symptoms of infection including fever, elevated WBC, uterine tenderness, foul vaginal discharge. Will stay off antibiotics for now HPI Data of Consult Date/Time: 08/23/19 12:48 Requesting Physician: EULA Sheth Primary Care Provider: Isaias GrierMD Consult Narrative Narrative: Steph Camacho is a 28 year old female who had L/S BTL, ovarian cystectomy, and endometrial ablation 08/[address] Worley and was admitted for IV antibiotics for endometritis postoperatively. She came to ER yesterday for N/V and increasing low abdominal pain. She was admitted for ileus. She still has nausea. She did have small BM in response to suppository this morning. She does have brownish vaginal discharge/bleeding but no itching or burning. No foul-smelling discharge. No dysuria or frequency. She has worsening pain just after urinating. Review of Systems Review of Systems: All systems reviewed & are unremarkable except as noted in HPI and below PMFSH Past Medical History Medical History (Updated 08/23/19 @ 12:54 by Janae Adams MD) Acute cervicitis Dysmenorrhea Endometritis GERD (gastroesophageal reflux disease) History of seizure As a child. History of UTI Hypothyroidism Ovarian cyst Type 1 diabetes mellitus Surgical History Surgical History (Updated 08/23/19 @ 12:14 by Sabra Bro PA-C) Status post cholecystectomy Status post endometrial ablation 08/06/19 Dr Worley. Status post ovarian cystectomy 08/06/19 Dr Worley. Status post tubal ligation 08/06/19 Dr Worley. Family History Family History Mother Diabetes mellitus Lupus (systemic lupus erythematosus) Scleroderma Renal disease Heart disease Grandparent Hypertension Social History Social History (Updated 08/23/19 @ 12:19 by Sabra Bro PA-C) Social History: The patient lives in [place], [place] with her 8-year-old daughter. 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 She tells me she smokes 7-8 cigarettes a day for the last 10 years. She reports occasional marijuana use. She denies alcohol use. Her PCP is Dr. Rodney Grier. She designates her mother, Olya Rodriguez, as her surrogate decision maker and she is full code status. Smoking packs per day: 0.33 Smoking cigarettes per day: 6.6 Years smoked: 10 Smoking pack-years: 3.30 Smoking status: Current every day smoker Tobacco type: cigarettes Second hand tobacco smoke exposure: Yes (significant other smokes) Alcohol intake: never Substance use: former Substance use type: marijuana Gender identity (if verbalized by the patient): Female Spiritual care concerns: No Agree to blood products: Yes Meds Home Medications and Allergies Home Medications Medication Instructions Recorded Confirmed Type ibuprofen 400 mg PO Q4-6H PRN 07/25/19 08/23/19 History insulin lispro [Admelog U-100 3 unit CONTINUOUS SUBCUTANEOUS 07/25/19 08/23/19 History Insulin lispro] INFUSION
[2019-08-23 12:52] LABS: Glucose Point of Care 204 (65-105)
[2019-08-23] MEDS: PANTOPRAZOLE SODIUM IV 40 MG VIAL IV PUSH (13:37)
[2019-08-23] MEDS: PROMETHAZINE HCL 25 MG SUPP.RECT 12.5 MG RECTAL (13:38)
[2019-08-23 14:22] LABS: Add Urine Microscopic? NO; Appearance Urine Clear (Clear); Bilirubin Urine Negative (Negative); Blood Urine Negative (Negative); Color Urine Straw (Yellow); Glucose Urine UA Negative (Negative); Ketones Urine Negative (Negative); Leukocyte Esterase Ur Negative LEU/UL (Negative); Nitrate Urine Negative (Negative); Protein Urine Negative (Negative); Specific Grav Ur 1.013 (1.001-1.035); Urobilinogen Urine Negative mg/dL (<2.0)
[2019-08-23 14:43] VITALS: BP 93/57; PULSE 82; RESP 16; TEMP 36.9; O2SAT 100
[2019-08-23 17:37] LABS: Glucose Point of Care 167 (65-105)
[2019-08-23 22:00] VITALS: BP 98/51; PULSE 88; RESP 16; TEMP 37.4; O2SAT 99
[2019-08-24 01:23] LABS: Glucose Point of Care 128 (65-105)
[2019-08-24] MEDS: HYDROMORPHONE HCL 1 MG/ML INJ 0.5 MG IV PUSH ×5 (02:13→21:21)
[2019-08-24 02:28] LABS: Glucose Point of Care 168 (65-105)
[2019-08-24 05:00] LABS: Glucose Point of Care 163 (65-105)
[2019-08-24 06:00] VITALS: BP 99/56; PULSE 88; RESP 16; TEMP 37.4; O2SAT 97
[2019-08-24 06:04] LABS: Basophils Percent Auto 0.8 % (0.2-1.2); Eosinophils Absolute Auto 0.2 K/mm3 (0-0.3); Hematocrit 35.3 % (37.0-47.0); Hemoglobin 11.6 g/dL (12.0-15.0); Lymphocytes Absolute Auto 1.87 K/mm3 (0.9-3.2); Lymphocytes Percent Auto 49.9 % (18.3-44.2); Mean Corpuscular HGB Conc 32.9 g/dl (32-36); Mean Corpuscular Hemoglobin 30.3 pg (26-34); Mean Corpuscular Volume 92.2 fl (80-100); Mean Platelet Volume 9.8 fl (7.4-10.4); Monocytes Absolute Auto 0.5 K/mm3 (0.1-0.6); Monocytes Percent Auto 12.3 % (2.6-8.5); Neutrophils Absolute Auto 1.2 K/mm3 (1.3-6.7); Platelet Count Result 258 k/mm3 (150-375); Red Blood Count 3.83 M/mm3 (4.2-5.4); Red Cell Distribution Width 12.2 % (11.5-14.5); White Blood Count 3.8 K/mm3 (4.5-10.0)
[2019-08-24 06:07] LABS: Blood Urea Nitrogen 7 mg/dL (7-17); Calcium 8.4 mg/dL (8.4-10.2); Carbon Dioxide 22 mmol/L (22-30); Chloride 105 mmol/L (98-107); Estimated CRCL calculation 114 ml/min; Estimated Glomerular Filt Rate > 60; Glucose 159 mg/dL (65-105); Magnesium 1.8 mg/dL (1.6-2.3); Phosphorus 3.2 mg/dL (2.5-4.5); Potassium 3.7 mmol/L (3.4-5.0); Sodium 137 mmol/L (137-145)
[2019-08-24] MEDS: LEVOTHYROXINE SODIUM INJ 100 MCG/5 ML VIAL 12.5 MCG IV PUSH (06:45)
[2019-08-24] MEDS: DEXTROSE 5%/0.45% SOD CHL 1,000 ML 100 ML IV CONT ×2 (06:45→15:24)
[2019-08-24] MEDS: PROMETHAZINE HCL 25 MG/ML AMPUL IM (06:45)
[2019-08-24] MEDS: PANTOPRAZOLE SODIUM IV 40 MG VIAL IV PUSH (08:46)
[2019-08-24 08:54] LABS: Glucose Point of Care 208 (65-105)
[2019-08-24 12:15] LABS: Glucose Point of Care 185 (65-105)
--- NOTE | 2019-08-24 12:25 | PM.PNGS ---
Progress Note: A&P Assessment and Plan (1) Ileus: Onset Date: ~08/22/19 Code(s): K56.7 - Ileus, unspecified Status: Acute Assessment and Plan: This appears to be resolving. It may be that the patient had constipation/obstipation and never really had an ileus. Will order daily MiraLax doses. Will start on clear liquids and see how she does. She still does complain of nausea so will leave treatment of this up to the hospitalist service since she has multiple reasons including her diabetes and chronic pelvic issues that could lead to this. (2) H/O tubal ligation: Code(s): Z98.51 - Tubal ligation status Status: Acute (3) Intractable lower abdominal pain: Code(s): R10.30 - Lower abdominal pain, unspecified Status: Acute (4) Type 1 diabetes mellitus: Code(s): E10.9 - Type 1 diabetes mellitus without complications Status: Acute (5) Smoker: Code(s): F17.200 - Nicotine dependence, unspecified, uncomplicated Status: Acute (6) Status post endometrial ablation: Code(s): Z98.890 - Other specified postprocedural states Status: Acute (7) Ovarian cyst: Qualifiers: Laterality: left Qualified Code(s): N83.202 - Unspecified ovarian cyst, left side Code(s): N83.209 - Unspecified ovarian cyst, unspecified side Status: Acute Subjective Subjective Date/Time Seen: 08/24/19 12:25 Patient seen earlier this morning. She is feeling somewhat better but still complaining of a lower abdominal pain and nausea. Did have 3 bowel movements yesterday the largest after a fleets enema. No vomiting overnight. Review of Systems Constitutional: Constitutional: Reports no additional constitutional complaints ENT: Reports other (Mucous Membranes moist.) Cardiovascular: Cardiovascular: Denies dyspnea Respiratory: Respiratory: Denies pain on inspiration and Denies dyspnea Musculoskeletal: Musculoskeletal: Reports other (No calf swelling or edema) Integumentary/Breasts: Skin/Breast: Reports system reviewed and no additional complaints, except as docu Exam Const: General: cooperative, no acute distress, alert and awake Orientation/consciousness: patient oriented x3 HENMT: Mouth: Yes moist mucous membranes Neck: Neck: normal visual inspection Chest: Chest palpation & inspection: normal inspection of the chest Resp: Effort & Inspection: normal respiratory effort Auscultation: clear to auscultation bilaterally Cardio: Jugular venous distension: no JVD Rate: regular rate Rhythm: regular rhythm GI: Inspection: incision (Clean and dry) and scar (From previous laparoscopic cholecystectomy) Auscultation: normal bowel sounds Rectal Exam: deferred Neuro: General: patient oriented x3 and moves all extremities Speech: normal speech Extrem: General: normal exam except as noted Psych: Mental Status: mental status grossly normal Speech and movement: Normal speech and movement present Affect: normal affect Thought content: Yes Normal thought content present Objective Data Vital Signs Vital Signs: Vital Signs - 24 hr 08/23/19 14:43 08/23/19 22:00 08/24/19 06:00 Temperature 36.9 C 37.4 C 37.4 C Pulse Rate 82 88 88 Respiratory Rate 16 16 16 Blood Pressure 93/57 L 98/51 L 99/56 L Pulse Oximetry 100 99 97 Intake/Output Intake/Output: Intake & Output 08/21/19 08/22/19 08/23/19 08/24/19 23:59 23:59 23:59 23:59 Intake Total 2600 1100 Output Total 700 800 Balance 1900 300 Meds/Results Medications: Active Medications Generic Name Dose Route Start Last Admin Trade Name Freq PRN Reason Stop Dose Admin Dextrose 12.5 gm 08/23/19 08:52 Dextrose 50% Syringe IV PUSH PRN PRN Hypoglycemia Protocol Glucagon 1 mg 08/23/19 08:52 Glucagon For Inj IM PRN PRN Hypoglycemia Protocol Glucose 15 gm 08/23/19 08:52 Glutose 15 PO PRN PRN Hypoglycemia Protocol
--- NOTE | 2019-08-24 12:53 | PM.GYNPNOP ---
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 Based on that history and pelvic exam findings, start IV gentamicin and clindamycin for probable endometritis. Plan to treat for 24-48 hours and await clinical improvement prior to discharge (2) Ileus: Onset Date: ~08/22/19 Code(s): K56.7 - Ileus, unspecified Status: Acute Assessment and Plan: Improving. Currently on clear liquid diet and consider advancing as tolerated Time Spent With Patient Time: Total time spent is greater than 50% in coordination of care (as documented) at patient's floor/unit and/or counseling patient: Time with patient: less than 15 minutes PIPE CLEANING MACHINE OPERATOR- PN:Subj Post-Op Subjective Date/time seen: 08/24/19 12:53 Interval history: She has had several BMs in response to suppository and Fleets enema and one spontaneous BM. She still c/o pelvic midline / RLQ pain shooting through vagina, and when pain comes she gets nausea. No emesis. No urinary complaints. Heavy yellowish brown vaginal discharge with foul smell. No parish bleeding Subjective: patient reports feeling better, pain is well controlled and patient reports nausea Review of Systems Review of Systems: All systems reviewed & are unremarkable except as noted in HPI and below Exam Const: General: no acute distress Resp: Auscultation: clear to auscultation bilaterally Cardio: Rate: regular rate Rhythm: regular rhythm GI: Inspection: non-distended Other: soft, mildlyl tender suprapubic / RLQ. No rebound/guarding : Other: bedside pelvic exam done. Uterus tender. + cervical motion tenderness. Dark yellow thick foul-smelling discharge noted. Minimal adnexal tenderness Extrem: General: no calf tenderness Psych: Mental Status: mental status grossly normal PIPE CLEANING MACHINE OPERATOR - PN: Obj Data Vital Signs Vital Signs: Vital Signs - 24 hr 08/23/19 14:43 08/23/19 22:00 08/24/19 06:00 Temperature 36.9 C 37.4 C 37.4 C Pulse Rate 82 88 88 Respiratory Rate 16 16 16 Blood Pressure 93/57 L 98/51 L 99/56 L Pulse Oximetry 100 99 97 Intake/Output Intake/Output: Intake & Output 08/21/19 08/22/19 08/23/19 08/24/19 23:59 23:59 23:59 23:59 Intake Total 2600 1100 Output Total 700 800 Balance 1900 300 Meds/Results Medications: Active Medications Generic Name Dose Route Start Last Admin Trade Name Freq PRN Reason Stop Dose Admin Dextrose 12.5 gm 08/23/19 08:52 Dextrose 50% Syringe IV PUSH PRN PRN Hypoglycemia Protocol Glucagon 1 mg 08/23/19 08:52 Glucagon For Inj IM PRN PRN Hypoglycemia Protocol Glucose 15 gm 08/23/19 08:52 Glutose 15 PO PRN PRN Hypoglycemia Protocol Hydromorphone HCl 0.5 mg 08/23/19 10:43 08/24/19 11:00 Dilaudid Inj IV PUSH 0.5 mg Q4H PRN Administration Pain Rated 7-10 Dextrose/Sodium Chloride 1,000 mls @ 100 mls/hr 08/22/19 23:40 08/24/19 06:45 Dextrose 5% Sodium Chloride 0.45% IV CONT 100 mls/hr .Q10H RACH Administration Dextrose 1,000 mls @ 100 mls/hr 08/23/19 08:52 Dextrose 5% 1,000 Ml IVPB PRN PRN Hypoglycemia Protocol Insulin Human Regular 3 each 08/23/19 10:45 Home Medication Insulin SUB-Q DIRECTED RACH Levothyroxine Sodium 12.5 mcg 08/23/19 06:30 08/24/19 06:45 Levothyroxine Sodium Inj IV PUSH 12.5 mcg DAILY@0630 RACH Administration Pantoprazole Sodium 40 mg 08/23/19 12:35 08/24/19 08:46 Protonix Iv IV PUSH 40 mg QAM RACH Administration Polyethylene Glycol 17 gm 08/24/19 10:40 Miralax PO BID RACH Promethazine HCl 12.5 mg 08/23/19 12:50 08/23/19 13:38 Phenergan Supp RECTAL 12.5 mg Q6H PRN Administration NAUSEA AND VOMITING Scopolamine 1.5 mg 08/23/19 09:00 08/23/19 12:27 Transderm-Sco
--- NOTE | 2019-08-24 13:11 | PM.IMPN ---
Progress Note: A&P Assessment and Plan (1) Postoperative complication: Qualifiers: Surgical complication system/body Area: genitourinary Surgical complication type: unspecified Procedure type: genitourinary Qualified Code(s): N99.89 - Other postprocedural complications and disorders of genitourinary system Code(s): T81.9XXA - Unspecified complication of procedure, initial encounter Status: Acute Assessment and Plan: Patient has postoperative pelvic pain, malodorous up vaginal discharge, nausea and vomiting. Discussed case with Dr Adams; she suspects probable endometritis and has started IV gentamicin and clindamycin. Appreciate recommendations. She is s/p diagnostic laparoscopy, bilateral tubal ligation, left ovarian cystectomy, and adhesiolysis, endometrial ablation with hysteroscopy by Dr. Worley 08/06/19. She was admitted 08/14/19 - 08/16/[address] Worley for similar symptoms and treated with IV antibiotics, discharged with oral levaquin and metronidazole. She has been afebrile. Blood cultures 08/14/19 are negative. Vital signs are stable aside from hypotension which appears to be near her baseline after review of previous records. Will defer antibiotic recommendations and pain control management per HEAD ESTHETICIAN. (2) Ileus: Onset Date: ~08/22/19 Code(s): K56.7 - Ileus, unspecified Status: Acute Assessment and Plan: Improving. Dr Wills consulted for postoperative ileus - appreciate recommendations. May be related to narcotic use postoperatively. Tolerating clear liquids today. No evidence of obstruction on imaging. (3) Type 1 diabetes mellitus: Qualifiers: Diabetes mellitus complication status: without complication Qualified Code(s): E10.9 - Type 1 diabetes mellitus without complications Code(s): E10.9 - Type 1 diabetes mellitus without complications Status: Acute Assessment and Plan: Continue insulin pump with her home Admelog and monitor with accu-cheks. (4) Hypothyroidism: Code(s): E03.9 - Hypothyroidism, unspecified Status: Acute Assessment and Plan: Her home Synthroid has been continued IV. (5) GERD (gastroesophageal reflux disease): Code(s): K21.9 - Gastro-esophageal reflux disease without esophagitis Status: Acute Assessment and Plan: Continue Protonix IV. Can switch to oral once she tolerates a diet. (6) DVT prophylaxis: Code(s): Z29.9 - Encounter for prophylactic measures, unspecified Status: Acute Assessment and Plan: SCDs Subjective Date/time seen: 08/24/19 13:15 Interval history: Ms. Camacho is a 28yo F admitted with postoperative pelvic pain felt to be endometritis. She continues to have significant pelvic pain today but overall feels a little better than yesterday. She has had a large BM last night that was soft, and another smaller BM this morning. Nausea has improved today. No chest pain or shortness of breath. Review of Systems Review of Systems: Narrative: Twelve systems were reviewed with pertinent positives and negatives as per HPI. Exam Narrative: Exam Narrative: General: Thin female resting supine in bed in no acute distress. HEENT: Normocephalic, EOMI, oral mucosa moist. Neck: Supple. Chest: Lungs clear to auscultation all perdue. Nonlabored breathing. Heart: Heart rate and rhythm regular with S1-S2. Abdomen: Soft, nondistended, bowel sounds present. Diffuse tenderness to palpation across lower abdomen/pelvis with guarding. Extremities: Peripheral pulses intact. No edema erythema, or pain to palpation. Neurologic: Alert and oriented. No focal neurological deficits noted. Speech is clear. Objective Data Vital Signs Vital Signs: Vital Signs - 24 hr 08/23/19 14:43 08/23/19 22:00 08/24/19 06:00
[2019-08-24 14:00] VITALS: BP 110/58; PULSE 79; RESP 16; TEMP 37.1; O2SAT 100
[2019-08-24] MEDS: CLINDAMYCIN 900 MG/NS 50 ML 900 MG/50 ML PIGGYBACK 50 MG IVPB (14:21)
[2019-08-24 17:21] LABS: Glucose Point of Care 301 (65-105)
[2019-08-24 20:45] VITALS: PULSE 79; RESP 16; O2SAT 100
[2019-08-24] MEDS: CLINDAMYCIN 900 MG/NS 50 ML 900 MG/50 ML PIGGYBACK 100 MG IVPB (21:20)
[2019-08-24 21:24] VITALS: BP 96/56; PULSE 91; RESP 16; TEMP 37.4; O2SAT 99
[2019-08-24 21:30] LABS: Glucose Point of Care 286 (65-105)
[2019-08-24 23:42] LABS: Glucose Point of Care 329 (65-105)
[2019-08-25] MEDS: HYDROMORPHONE HCL 1 MG/ML INJ 0.5 MG IV PUSH ×6 (01:43→21:42)
[2019-08-25 02:27] LABS: Gentamicin Random 1.5 ug/mL (5.0-12.0)
[2019-08-25] MEDS: DEXTROSE 5%/0.45% SOD CHL 1,000 ML 100 ML IV CONT (03:29)
[2019-08-25] MEDS: PROMETHAZINE HCL 25 MG SUPP.RECT 12.5 MG RECTAL (04:34)
[2019-08-25] MEDS: CLINDAMYCIN 900 MG/NS 50 ML 900 MG/50 ML PIGGYBACK 100 MG IVPB ×2 (04:56→13:12)
[2019-08-25 06:00] VITALS: BP 121/88; PULSE 86; RESP 16; TEMP 36.7; O2SAT 96
[2019-08-25 06:33] LABS: Basophils Percent Auto 0.8 % (0.2-1.2); Eosinophils Absolute Auto 0.2 K/mm3 (0-0.3); Eosinophils Percent Auto 6.3 % (0-4.4); Hematocrit 35.1 % (37.0-47.0); Hemoglobin 11.9 g/dL (12.0-15.0); Immature Granulocyte Absolute 0.01 K/mm3 (0.00-0.031); Immature Granulocyte Percent A 0.3 % (0-0.5); Lymphocytes Percent Auto 49.6 % (18.3-44.2); Mean Corpuscular HGB Conc 33.9 g/dl (32-36); Mean Corpuscular Volume 91.4 fl (80-100); Mean Platelet Volume 9.4 fl (7.4-10.4); Monocytes Absolute Auto 0.4 K/mm3 (0.1-0.6); Monocytes Percent Auto 10.2 % (2.6-8.5); Neutrophils Absolute Auto 1.3 K/mm3 (1.3-6.7); Neutrophils Percent Auto 32.8 % (45.5-73.1); Platelet Count Result 268 k/mm3 (150-375); Red Blood Count 3.84 M/mm3 (4.2-5.4); Red Cell Distribution Width 11.9 % (11.5-14.5); White Blood Count 3.8 K/mm3 (4.5-10.0)
[2019-08-25] MEDS: LEVOTHYROXINE SODIUM INJ 100 MCG/5 ML VIAL 12.5 MCG IV PUSH (06:41)
[2019-08-25 06:47] LABS: Blood Urea Nitrogen 5 mg/dL (7-17); Calcium 8.5 mg/dL (8.4-10.2); Carbon Dioxide 25 mmol/L (22-30); Chloride 101 mmol/L (98-107); Estimated CRCL calculation 114 ml/min; Estimated Glomerular Filt Rate > 60; Glucose 217 mg/dL (65-105); Magnesium 1.7 mg/dL (1.6-2.3); Phosphorus 3.6 mg/dL (2.5-4.5); Potassium 3.6 mmol/L (3.4-5.0); Sodium 134 mmol/L (137-145)
[2019-08-25 08:44] LABS: Glucose Point of Care 248 (65-105)
[2019-08-25] MEDS: SODIUM CHLORIDE 0.9% IV 1,000 ML 75 ML IV CONT (09:11)
[2019-08-25] MEDS: PANTOPRAZOLE SODIUM IV 40 MG VIAL IV PUSH (09:11)
[2019-08-25] MEDS: MAGNESIUM SULF 2 GM/WATER 50ML 2 GM/50 ML BAG IVPB (09:11)
--- NOTE | 2019-08-25 10:39 | PM.PNGS ---
Progress Note: A&P Assessment and Plan (1) Ileus: Onset Date: ~08/22/19 Code(s): K56.7 - Ileus, unspecified Status: Acute Assessment and Plan: This seems to be resolving and it is likely that she was dealing more with constipation/obstipation rather than an ileus. Bowels are moving. Patient refusing oral laxatives, but will take suppositories. I will advance her diet to a full liquid diet today. May advance her diet as tolerated. We will sign off at this point. Please let us know if you need our assistance for any surgical needs in the future. (2) H/O tubal ligation: Code(s): Z98.51 - Tubal ligation status Status: Acute (3) Intractable lower abdominal pain: Code(s): R10.30 - Lower abdominal pain, unspecified Status: Acute (4) Type 1 diabetes mellitus: Qualifiers: Diabetes mellitus complication status: without complication Qualified Code(s): E10.9 - Type 1 diabetes mellitus without complications Code(s): E10.9 - Type 1 diabetes mellitus without complications Status: Acute (5) Smoker: Code(s): F17.200 - Nicotine dependence, unspecified, uncomplicated Status: Acute (6) Status post endometrial ablation: Code(s): Z98.890 - Other specified postprocedural states Status: Acute (7) Ovarian cyst: Qualifiers: Laterality: left Qualified Code(s): N83.202 - Unspecified ovarian cyst, left side Code(s): N83.209 - Unspecified ovarian cyst, unspecified side Status: Acute Subjective Subjective Date/Time Seen: 08/25/19 10:15 Patient reports: no new complaints, tolerating liquids well, flatus and bowel movement Interval history: Patient seen and examined. Reports still having pelvic pain pointing primarily towards right side of midline. Denies vomiting or bloating. Reports only having nausea when her pain becomes intense. Tolerating liquids well but is only taking in very little due to the taste of the clear liquid diet. Reports having a good bowel movement this morning. No other complaints at this time. Review of Systems Review of Systems: All systems reviewed & are unremarkable except as noted in HPI and below Exam Const: General: cooperative, no acute distress, alert and awake Orientation/consciousness: patient oriented x3 GI: Inspection: normal to inspection, non-distended and incision (Clean and dry, healing well) GI Palp: Yes Soft to palpation, Yes Tenderness to palpation present (GI) (tender over entire very lower abdomen, no peritoneal signs), No Guarding due to palpation present (GI) and No Rebound tenderness present Auscultation: Hypoactive bowel sounds present Rectal Exam: deferred Skin: General skin exam: normal color Neuro: General: moves all extremities and no focal motor deficits Extrem: General: normal to inspection Psych: Appearance: grossly normal Mental Status: mental status grossly normal Attitude: cooperative Objective Data Vital Signs Vital Signs: Vital Signs - 24 hr 08/24/19 14:00 08/24/19 20:45 08/24/19 21:24 Temperature 37.1 C 37.4 C Pulse Rate 79 79 91 Respiratory Rate 16 16 16 Blood Pressure 110/58 L 96/56 L Pulse Oximetry 100 100 99 08/25/19 06:00 Temperature 36.7 C Pulse Rate 86 Respiratory Rate 16 Blood Pressure 121/88 Pulse Oximetry 96 Intake/Output Intake/Output: Intake & Output 08/22/19 08/23/19 08/24/19 08/25/19 23:59 23:59 23:59 23:59 Intake Total 2600 3656.5 1505 Output Total 698 551 6333 Balance 1900 2856.5 -95 Meds/Results Medications: Active Medications Generic Name Dose Route Start Last Admin Trade Name Freq PRN Reason Stop Dose Admin Dextrose 12.5 gm 08/23/19 08:52 Dextrose 50% Syringe IV PUSH PRN PRN Hypoglycemia Protocol Glucagon 1 mg 08/23/19 08:52 Glucagon For Inj IM PRN PRN Hypoglycemia Protocol Glucose 15 gm 08/23/19 08:52 Glutose 15 PO PRN PRN Hypoglycem
[2019-08-25 12:26] VITALS: BMI 19.2
--- NOTE | 2019-08-25 12:38 | PM.GYNPNOP ---
KOHINOOR OPERATOR - A/P Assessment and plan (1) Endometritis: Code(s): N71.9 - Inflammatory disease of uterus, unspecified Status: Acute (2) Ileus: Onset Date: ~08/22/19 Code(s): K56.7 - Ileus, unspecified Status: Acute (3) Intractable lower abdominal pain: Code(s): R10.30 - Lower abdominal pain, unspecified Status: Acute Assessment and Plan: Patient is a 28-year-old female who is approximately 4 weeks postop from an endometrial ablation. For the past 2 weeks she has been treated with antibiotics for endometritis. She was hospitalized previously for IV antibiotics for this endometritis. We continue IV antibiotics at this visit. Her gestational diabetes is being managed by internal medicine. Her ileus is been managed by General surgery. She also has constipation management General surgery. That appears to be improved. We are going to obtain a pelvic ultrasound to rule out pelvic abscess. Time Spent With Patient Time: Total time spent is greater than 50% in coordination of care (as documented) at patient's floor/unit and/or counseling patient: Time with patient: 15 - 25 minutes KOHINOOR OPERATOR- PN:Subj Post-Op Subjective Date/time seen: 08/25/19 12:38 persistent lower abdominal pain, persistent vaginal discharge. She says it is foul smelling. Purulence, by her estimation. She denies any overt recent fever. Interval history: Ms. Camacho is a 28yo F admitted with postoperative pelvic pain felt to be endometritis. She continues to have significant pelvic pain today but overall feels a little better than yesterday. She has had a large BM last night that was soft, and another smaller BM this morning. Nausea has improved today. No chest pain or shortness of breath. Exam Const: General: healthy appearing, comfortable and no acute distress Resp: Auscultation: clear to auscultation bilaterally, no rales, no rhonchi and no wheezes Cardio: Rate: regular rate Heart sounds: no click, no murmurs and no rubs GI: Inspection: non-distended Auscultation: normal bowel sounds Extrem: General: normal to inspection, no pedal edema and no calf tenderness KOHINOOR OPERATOR - PN: Obj Data Vital Signs Vital Signs: Vital Signs - 24 hr 08/24/19 14:00 08/24/19 20:45 08/24/19 21:24 Temperature 98.8 F 99.3 F Pulse Rate 79 79 91 Respiratory Rate 16 16 16 Blood Pressure 110/58 L 96/56 L Pulse Oximetry 100 100 99 08/25/19 06:00 Temperature 98.1 F Pulse Rate 86 Respiratory Rate 16 Blood Pressure 121/88 Pulse Oximetry 96 Intake/Output Intake/Output: Intake & Output 08/22/19 08/23/19 08/24/19 08/25/19 23:59 23:59 23:59 23:59 Intake Total 2600 3656.5 1505 Output Total 585 232 4229 Balance 1900 2856.5 -95 Meds/Results Medications: Active Medications Generic Name Dose Route Start Last Admin Trade Name Freq PRN Reason Stop Dose Admin Dextrose 12.5 gm 08/23/19 08:52 Dextrose 50% Syringe IV PUSH PRN PRN Hypoglycemia Protocol Glucagon 1 mg 08/23/19 08:52 Glucagon For Inj IM PRN PRN Hypoglycemia Protocol Glucose 15 gm 08/23/19 08:52 Glutose 15 PO PRN PRN Hypoglycemia Protocol Hydromorphone HCl 0.5 mg 08/23/19 10:43 08/25/19 09:36 Dilaudid Inj IV PUSH 0.5 mg Q4H PRN Administration Pain Rated 7-10 Dextrose 1,000 mls @ 100 mls/hr 08/23/19 08:52 Dextrose 5% 1,000 Ml IVPB PRN PRN Hypoglycemia Protocol Clindamycin/Sodium Chloride 900 mg in 50 mls @ 50 mls/hr 08/24/19 14:00 08/25/19 05:25 Cleocin 900 Mg/Ns 50 Ml IVPB Infused Q8HR RACH Infusion Gentamicin Sulfate 260 mg/ 106.5 mls @ 100 mls/hr 08/25/19 15:00 Dextrose IVPB Q24H RACH Sodium Chloride 1,000 mls @ 75 mls/hr 08/25/19 09:00 08/25/19 09:11 Normal Saline Iv IV CONT 75 mls/hr .[id number] RACH Administration Insulin Human Regular 3 each 08/23/19 10:45 Home Medication Insulin SUB-Q DIRECTED RACH Levothyroxine Sod
[2019-08-25 13:15] LABS: Glucose Point of Care 125 (65-105)
[2019-08-25 14:00] VITALS: BP 90/52; PULSE 81; RESP 16; TEMP 36.9; O2SAT 100
[2019-08-25 14:51] LABS: Glucose Point of Care 129 (65-105)
--- NOTE | 2019-08-25 15:13 | PCNSR ---
On 08/25/19, the student, Silvia Antunez, provided care and completed [facility] documentation on this patient. I have reviewed the student's documentation and agree with the findings.
--- NOTE | 2019-08-25 16:13 | PM.IMPN ---
Progress Note: A&P Assessment and Plan (1) Endometritis: Code(s): N71.9 - Inflammatory disease of uterus, unspecified Status: Acute Assessment and Plan: Patient has postoperative pelvic pain, malodorous up vaginal discharge, nausea and vomiting. She is s/p diagnostic laparoscopy, bilateral tubal ligation, left ovarian cystectomy, and adhesiolysis, endometrial ablation with hysteroscopy by Dr. Worley 08/06/19. She was admitted 08/14/19 - 08/16/[address] Worley for similar symptoms and treated with IV antibiotics, discharged with oral levaquin and metronidazole. She has been afebrile. Blood cultures 08/14/19 are negative. Vital signs are stable aside from hypotension which appears to be near her baseline after review of previous records. Will defer antibiotic recommendations and pain control management per TOLL BRIDGE OPERATOR. She remains on IV gentamicin and clindamycin. US shows small amount of free fluid in the pelvis likely physiologic. (2) Ileus: Onset Date: ~08/22/19 Code(s): K56.7 - Ileus, unspecified Status: Acute Assessment and Plan: Improving. Surgery consulted and has signed off. May be related to narcotic use postoperatively. Recommend continuing Dulcolax suppositories PRN. She is refusing her MiraLax. (3) Type 1 diabetes mellitus: Qualifiers: Diabetes mellitus complication status: without complication Qualified Code(s): E10.9 - Type 1 diabetes mellitus without complications Code(s): E10.9 - Type 1 diabetes mellitus without complications Status: Acute Assessment and Plan: Continue insulin pump with her home Admelog and monitor with accu-cheks. (4) Hypothyroidism: Code(s): E03.9 - Hypothyroidism, unspecified Status: Acute Assessment and Plan: Her home Synthroid has been continued IV, will switch back to PO. (5) GERD (gastroesophageal reflux disease): Code(s): K21.9 - Gastro-esophageal reflux disease without esophagitis Status: Acute Assessment and Plan: Continue Protonix IV, switch to PO. (6) DVT prophylaxis: Code(s): Z29.9 - Encounter for prophylactic measures, unspecified Status: Acute Assessment and Plan: SCDs Subjective Date/time seen: 08/25/19 1400 Interval history: Ms. Camacho is a 28yo F admitted with postoperative pelvic pain felt to be endometritis. She is upset because she is starving. We will advance her diet. She continues to have pelvic pain and tells me the pain feels like it shoots up into her vagina. She had a BM yesterday, but none so far today. She denies nausea or vomiting. She denies chest pain or shortness of breath. Review of Systems Review of Systems: Narrative: Twelve systems were reviewed with pertinent positives and negatives as per HPI. Exam Narrative: Exam Narrative: General: Thin female resting supine in bed in no acute distress. HEENT: Normocephalic, EOMI, oral mucosa moist. Neck: Supple. Chest: Lungs clear to auscultation all perdue. Nonlabored breathing. Heart: Heart rate and rhythm regular with S1-S2. Abdomen: Soft, nondistended, bowel sounds present. Diffuse tenderness to palpation across lower abdomen/pelvis with voluntary guarding. Extremities: Peripheral pulses intact. No edema erythema, or pain to palpation. Neurologic: Alert and oriented. No focal neurological deficits noted. Speech is clear. Objective Data Vital Signs Vital Signs: Last Vital Signs Temp 98.4 F 08/25/19 14:00 Pulse 81 08/25/19 14:00 Resp 16 08/25/19 14:00 BP 90/52 L 08/25/19 14:00 Pulse Ox 100 08/25/19 14:00 Intake/Output Intake/Output: Intake & Output 08/22/19 08/23/19 08/24/19 08/25/19 23:59 23:59 23:59 23:59 Intake Total 2600 3656.5 1675 Output Total 819 133 2864 Balance 1900 2856.5 75 Meds/
[2019-08-25 17:16] LABS: Glucose Point of Care 115 (65-105)
[2019-08-25] MEDS: CLINDAMYCIN 900 MG/NS 50 ML 900 MG/50 ML PIGGYBACK 50 MG IVPB (21:43)
[2019-08-25 21:46] VITALS: BP 99/58; PULSE 99; RESP 16; TEMP 37.3; O2SAT 98
[2019-08-25 21:52] LABS: Glucose Point of Care 120 (65-105)
[2019-08-26] MEDS: HYDROMORPHONE HCL 1 MG/ML INJ 0.5 MG IV PUSH ×3 (00:47→08:18)
[2019-08-26] MEDS: SODIUM CHLORIDE 0.9% IV 1,000 ML 75 ML IV CONT (02:30)
[2019-08-26] MEDS: CLINDAMYCIN 900 MG/NS 50 ML 900 MG/50 ML PIGGYBACK 100 MG IVPB (05:59)
[2019-08-26 06:00] VITALS: BP 103/56; PULSE 86; RESP 18; TEMP 37; O2SAT 100
[2019-08-26] MEDS: LEVOTHYROXINE SODIUM 25 MCG TABLET PO (06:00)
[2019-08-26 06:09] LABS: Glucose Point of Care 199 (65-105)
[2019-08-26 06:15] LABS: Basophils Percent Auto 0.7 % (0.2-1.2); Eosinophils Absolute Auto 0.4 K/mm3 (0-0.3); Eosinophils Percent Auto 7.1 % (0-4.4); Hematocrit 33.8 % (37.0-47.0); Hemoglobin 11.1 g/dL (12.0-15.0); Immature Granulocyte Absolute 0.01 K/mm3 (0.00-0.031); Immature Granulocyte Percent A 0.2 % (0-0.5); Lymphocytes Absolute Auto 2.31 K/mm3 (0.9-3.2); Lymphocytes Percent Auto 43.3 % (18.3-44.2); Mean Corpuscular HGB Conc 32.8 g/dl (32-36); Mean Corpuscular Hemoglobin 30.7 pg (26-34); Mean Corpuscular Volume 93.4 fl (80-100); Mean Platelet Volume 9.6 fl (7.4-10.4); Monocytes Absolute Auto 0.5 K/mm3 (0.1-0.6); Monocytes Percent Auto 8.6 % (2.6-8.5); Neutrophils Absolute Auto 2.1 K/mm3 (1.3-6.7); Neutrophils Percent Auto 40.1 % (45.5-73.1); Platelet Count Result 255 k/mm3 (150-375); Red Blood Count 3.62 M/mm3 (4.2-5.4); White Blood Count 5.3 K/mm3 (4.5-10.0)
[2019-08-26 06:27] LABS: Blood Urea Nitrogen 8 mg/dL (7-17); Calcium 8.3 mg/dL (8.4-10.2); Carbon Dioxide 26 mmol/L (22-30); Chloride 101 mmol/L (98-107); Estimated CRCL calculation 96 ml/min; Estimated Glomerular Filt Rate > 60; Glucose 163 mg/dL (65-105); Magnesium 1.6 mg/dL (1.6-2.3); Potassium 3.8 mmol/L (3.4-5.0); Sodium 135 mmol/L (137-145)
[2019-08-26 07:43] LABS: Glucose Point of Care 146 (65-105)
[2019-08-26] MEDS: SCOPOLAMINE 1.5 MG PATCH TRANSDERM (08:20)
[2019-08-26] MEDS: PANTOPRAZOLE 40 MG TABLET PO (08:21)
[2019-08-26 10:46] LABS: Glucose Point of Care 42 (65-105)
[2019-08-26 11:12] LABS: Glucose Point of Care 45 (65-105)
[2019-08-26 11:35] LABS: Glucose Point of Care 52 (65-105)
--- NOTE | 2019-08-26 12:07 | PM.DS ---
DS: Diagnosis Admitting Diagnosis Admitting Diagnosis: Ileus, unspecified Discharge Diagnosis (1) Ileus: Onset Date: ~08/22/19 Code(s): K56.7 - Ileus, unspecified Status: Acute Assessment and Plan: Pt eating and drinking well and did have a BM. Recommend continuing stool softners outpt. (2) Endometritis: Code(s): N71.9 - Inflammatory disease of uterus, unspecified Status: Acute Assessment and Plan: Continue clindamycin outpatient. She has had multiple antibiotics throughout this postop period. She sees Dr. san. Patient given a probiotic at discharge (3) Type 1 diabetes mellitus: Qualifiers: Diabetes mellitus complication status: without complication Qualified Code(s): E10.9 - Type 1 diabetes mellitus without complications Code(s): E10.9 - Type 1 diabetes mellitus without complications Status: Acute Assessment and Plan: Patient did have a few hypoglycemic events which responded to oral treatment. She is going to suspend her pump until she has improvement in her blood glucose. (4) Hypothyroidism: Code(s): E03.9 - Hypothyroidism, unspecified Status: Acute Assessment and Plan: Continue outpatient levothyroxine (5) GERD (gastroesophageal reflux disease): Code(s): K21.9 - Gastro-esophageal reflux disease without esophagitis Status: Acute Assessment and Plan: No acute symptoms (6) DVT prophylaxis: Code(s): Z29.9 - Encounter for prophylactic measures, unspecified Status: Acute Assessment and Plan: SCDs DS: Summary Hospital Course Reason for hospitalization: Abdominal pain Hospital Course: Patient is a 28-year-old female who was previously hospitalized after postop infection who presented emergency room for fever of 101 and nausea vomiting with inability to take her antibiotics. Vitals in the ER were temperature 36.9?, pulse 109, respiratory rate 16, blood pressure 101/63, pulse ox 100 on room air. White blood cell count 5.5. BMP within normal limits with the exception of sodium slightly low 133. Abdominal pelvis CT showed small-bowel fluid with scattered air-fluid levels ileus versus enteritis. She had a 3.7 cm left ovarian cyst with a small amount of adjacent free fluid and she also had fluid in the endometrial canal. Patient was admitted to the hospitalist service and started on clindamycin and gentamicin with conservative treatment for the ileus. She utilize a Dulcolax suppositories but refuse the MiraLax. She was having bowel movements and this ileus was thought to be due to narcotic use. Overall, the patient improved with IV antibiotics and conservative bowel treatment. The day of discharge she did have some low blood glucose and was able to call out and let us know that she was having symptoms. This improved with orange juice and breakfast. She knows had to suspend her insulin pump when she sick and she is going to do that. I talked to Dr. San who recommended a few more days of antibiotics in the follow up with him in his office. The patient was educated about the worrisome signs and symptoms come back to emergency room for was discharged stable condition. Status at Discharge Functional status at discharge: independent ambulation Overall status at discharge: patient is back to baseline Time Spent with Patient Time attestation: Total time spent providing and/or coordinating discharge services: 38 minutes Time spent: Greater than 30 minutes Exam Narrative: Exam Narrative: General: Well developed well nourished patient resting comfortably in bed in NAD HEENT: normocephalic Neck: supple Neuro: Alert and oriented x 4. CV:RRR Resp: CTA Abd: Soft, non distended. No pain to palpation to the abdomen. Incision sites clean and dry without dehiscence, bleeding, or discharge. Extremities: No swelling, erythema, or pain to palpation. DS: Data Data Completed and Pend
[2019-08-26 12:09] LABS: Glucose Point of Care 106 (65-105)
== END 2019-08-26 12:50 | disposition home or self-care (01) | DRG 247 ==
LOC: ANHED 22:47 → ANH3MEDSUR 23:10
PROVIDERS: Obstetrics & Gynecology; Physician Assistant; Surgery; Admitting Provider Family Medicine; Emergency Provider Emergency Medicine; PCP Family Medicine; Visit Provider Family Medicine
DX: K56.7 Ileus, unspecified (principal); N71.9 Inflammatory disease of uterus, unspecified; T40.605A Adverse effect of unspecified narcotics, initial encounter; E10.8 Type 1 diabetes mellitus with unspecified complications; E03.9 Hypothyroidism, unspecified; K21.9 Gastro-esophageal reflux disease without esophagitis; Z90.49 Acquired absence of other specified parts of digestive tract; F17.210 Nicotine dependence, cigarettes, uncomplicated; Z96.41 Presence of insulin pump (external) (internal)
CPT/HCPCS: 36415; 74019; 74177; 76856; 80048; 80053; 80170; 81003; 83735; 84100; 85025; 96361; 96365; 96372; 96374; 96375; 96376; 99285; A9270; C9113; G0378; G0379; J0131; J1170; J1580; J1885; J2550; J3010; J3250; J3475; J7030; J7040; Q9967

== ENCOUNTER 2019-12-02 01:35 | Observation (INO) | payer OTHER, SELFPAY ==
[2019-12-02] VITALS (7 sets, daily range): BP systolic 90–114; BP diastolic 53–71; PULSE 83–97; RESP 16–20; TEMP 36.6–37.1; O2SAT 97–100; BMI 19.6
--- NOTE | ~2019-12-02 | CT_ITS ---
EXAMINATION: CT abdomen pelvis w con DATE: 12/02/2019 03:16 INDICATION: Abdominal pain. TECHNIQUE: Computed tomography (CT) of the abdomen and pelvis was performed with 100 mL Omnipaque 350 intravenous contrast. Automated exposure control and iterative reconstruction technique were employe d. The dose-length product was 217.13 mGy-cm. COMPARISON: CT abdomen and pelvis 08/22/2019, 07/28/2019 FINDINGS: The visualized portions of the lung bases demonstrate minimal atelectasis. There are a few pulmonary nodules measuring up to 3 mm, likely benign. No pleural effusion. The heart size is normal. No pericardial effusion. Again seen is a 2.0 cm hyperdense mass in right hepatic lobe, likely a jessy ngioma or focal nodular hyperplasia. There are changes of cholecystectomy. The spleen, pancreas, and adrenal glands are normal. There are small areas of volume loss in the kidneys. There are no dilated loops of bowel. The appendix is normal. There are no pathologically enlarged lymph nodes. There is tr nimesh pelvic ascites. The bones are unremarkable. IMPRESSION: 1. 2.0 cm hyperdense liver mass without change from 07/28/2019, likely a hemangioma or focal nodular hy perplasia. Reviewed, dictated and finalized at location A. IMPRESSION: 1. 2.0 cm hyperdense liver mass without change from 07/28/2019, likely a hemangio ma or focal nodular hyperplasia.
--- NOTE | 2019-12-02 02:00 | ECG_ITS ---
Measurements Intervals [place] Rate: 93 P: 33 W[place]: 123 QRS: 70 QRSD: 77 T: 55 QT: 364 QTc: 453 Interpretive Statements SINUS RHYTHM NONSPECIFIC T-WAVE ABNORMALITY- INFERIOR LEADS BASELINE ARTIFACT- I, II, III, AVR, AVL, AVF, V1-V2 BORDERLINE ECG Electronically Signed On 12-02-2019 8:50:56 CDT by Pete Hernandez D.O.
[2019-12-02] MEDS: MORPHINE SULFATE 4 MG/ML INJ IV PUSH ×2 (02:27→06:31)
[2019-12-02] MEDS: ONDANSETRON INJ 4 MG/2 ML VIAL IV PUSH ×2 (02:30→07:41)
[2019-12-02] MEDS: PANTOPRAZOLE SODIUM IV 40 MG VIAL IV PUSH ×3 (02:31→20:51)
[2019-12-02] MEDS: SODIUM CHLORIDE 0.9% IV 1,000 ML 999 ML IV CONT (02:32)
[2019-12-02 02:34] LABS: Basophils Absolute Auto 0.06 K/mm3 (0.00-0.10); Basophils Percent Auto 0.5 % (0.0-1.0); Eosinophils Absolute Auto 0.06 K/mm3 (0.02-0.50); Eosinophils Percent Auto 0.5 % (1.0-6.0); Hematocrit 38.9 % (35.0-49.0); Hemoglobin 13.5 g/dL (12.0-15.0); Immature Granulocyte Absolute 0.03 K/mm3 (0.00-0.00); Immature Granulocyte Percent A 0.3 % (0.0-0.0); Lymphocytes Absolute Auto 2.14 K/mm3 (1.10-4.50); Lymphocytes Percent Auto 19.2 % (18.0-42.0); Mean Corpuscular HGB Conc 34.7 g/dL (32.0-36.0); Mean Corpuscular Hemoglobin 30.8 pg (27.0-31.0); Mean Corpuscular Volume 88.8 fL (78.0-102.0); Mean Platelet Volume 9.9 fl (9.2-11.8); Monocytes Absolute Auto 0.66 K/mm3 (0.10-0.90); Monocytes Percent Auto 5.9 % (2.0-11.0); Neutrophils Absolute Auto 8.2 K/mm3 (1.7-7.2); Neutrophils Percent Auto 73.6 % (50.0-70.0); Platelet Count Result 265 K/mm3 (150-420); Red Blood Count 4.38 M/mm3 (4.20-5.40); Red Cell Distribution Width 11.9 % (11.6-14.4); White Blood Count 11.2 K/mm3 (4.8-10.8)
[2019-12-02 02:35] LABS: Add Urine Microscopic? YES; Appearance Urine Sl Cloudy (Clear); Bilirubin Urine Negative (Negative); Blood Urine Negative (Negative); Color Urine Yellow (Yellow); Glucose Urine UA Negative (Negative); Ketones Urine 1+ (Negative); Leukocyte Esterase Ur Negative LEU/UL (Negative); Nitrate Urine Negative (Negative); Protein Urine Negative (Negative); Specific Grav Ur <= 1.005 (1.010-1.020); Urobilinogen Urine 0.2 mg/dL (0.2-1.0)
[2019-12-02 02:39] LABS: Pregnancy On Board Control Positive; Specific Gravity Ur < 1.005 (1.010-1.035); Urine Pregnancy Test Negative
[2019-12-02 02:47] LABS: Bacteria Urine 3+ /hpf; RBC Urine 0-2 /hpf (0-2); Squamous Epithelial Cell Urine Many /hpf (Few); WBC Urine 0-3 /hpf (0-3)
[2019-12-02 02:52] LABS: Occult Blood Positive (Negative)
[2019-12-02 02:53] LABS: Alanine Aminotransferase 17 U/L (14-59); Albumin Level 3.6 g/dL (3.4-5.0); Alkaline Phosphatase 62 U/L (46-116); Anion Gap 13.4 mmol/L (7-16); Aspartate Amino Transferase 18 U/L (15-37); Bilirubin,Total 0.6 mg/dL (0.00-1.00); Blood Urea Nitrogen 11 mg/dL (7-18); Calcium 8.6 mg/dL (8.5-10.1); Carbon Dioxide 26 mmol/L (21-32); Chloride 102 mmol/L (98-108); Estimated CRCL calculation 74 ml/min; Estimated Glomerular Filt Rate > 60; Glucose 142 mg/dL (70-99); Lipase 61 U/L (73-393); Osmolality Calculated 287 mOsm/kg (285-295); Partial Thromboplastin Time 29.3 SEC (22.3-31.6); Potassium 3.4 mmol/L (3.5-5.1); Prothrombin Time 10.7 Seconds (9.64-11.0); Sodium 138 mmol/L (136-145); Total Protein 7.3 g/dL (6.4-8.2)
[2019-12-02 02:58] LABS: Lactic Acid Reflex 1.1 mmol/L (0.4-2.0)
--- NOTE | 2019-12-02 03:05 | PC.NURSE ---
pt to xray per stretcher
--- NOTE | 2019-12-02 03:14 | PC.NURSE ---
pt returns to room, lights out for comfort. blanket on.
--- NOTE | 2019-12-02 03:36 | ED.ABDPAIN ---
HPI - Abdominal Pain General Chief Complaint: Abdominal Pain Stated Complaint: Abdominal Pain Source: patient Mode of arrival: EMS Limitations: no limitations History of Present Illness HPI narrative: this is a 29-year-old female with some presents via EMS with abdominal pain periumbilical and pelvic pain that started approximately 3 days ago and has intensified over the last 24 hours and got even worse overnight called EMS and she presented to our emergency department. Patient states she had a low-grade fever currently she is afebrile does have some nausea with no vomiting no radiation however abdominal pain, currently there is no dysuria no hematuria. No chest pain shortness of breath no diarrhea or constipation. The patient has an history of bilateral tubal ligation / adhesio lysis, and ablation of her endometrium. The patient has a nuclear logging engineer Dr. san and some is scheduled for hysterectomy in the beginning of December. The patient had admission at [facility] in August of 2019 for an ileus / enteritis and was treated with clindamycin and gentamicin and conservative treatment. Patient has been followed by her nuclear logging engineer and is status post laparoscopic bilateral tubal ligation, and endometrial ablation. Patient has a history of diabetes and hypothyroidism, for diabetes is currently on insulin pump. MD elicited complaint: abdominal pain Onset (ago): day(s) Pain Consistency: constant Location: periumbilical and pelvis Severity: severe Pain scale (0-10): 10 Quality: aching Migration to: periumbilical and suprapubic Exacerbating factors: nothing Relieving factors: nothing Associated symptoms: nausea and fever Related Data Home Medications Medication Instructions Recorded Confirmed ibuprofen 400 mg PO Q4-6H PRN 07/25/19 12/02/19 insulin lispro [Admelog U-100 3 unit CONTINUOUS SUBCUTANEOUS 07/25/19 12/02/19 Insulin lispro] INFUSION DIRECTED levothyroxine 25 mcg PO QAM 07/28/19 12/02/19 Allergies Allergy/AdvReac Type Severity Reaction Status Date / Time Latex, Natural Rubber Allergy Hives Verified 08/14/19 12:28 peanut oil Allergy Difficulty Verified 08/14/19 12:28 Breathing metoclopramide [From Reglan] AdvReac Anxiety Verified 08/23/19 00:26 Review of Systems Review of Systems: All systems reviewed & are unremarkable except as noted in HPI and below PMFSH Past Medical History Medical History Acute cervicitis Dysmenorrhea Endometritis GERD (gastroesophageal reflux disease) History of seizure As a child. History of UTI Hypothyroidism Ovarian cyst Type 1 diabetes mellitus Surgical History Surgical History Status post cholecystectomy Status post endometrial ablation 08/06/19 Dr San. Status post ovarian cystectomy 08/06/19 Dr San. Status post tubal ligation 08/06/19 Dr San. Family History Family History Mother Diabetes mellitus Lupus (systemic lupus erythematosus) Scleroderma Renal disease Heart disease Grandparent Hypertension Social History Social History (Updated 08/23/19 @ 12:19 by Sabra Bro PA-C) Social History: The patient lives in [place], [place] with her 8-year-old daughter. 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 She tells me she smokes 7-8 cigarettes a day for the last 10 years. She reports occasional marijuana use. She denies alcohol use. Her PCP is Dr. Rodney Grier. She designates her mother, Olya Rodriguez, as her surrogate decision maker and she is full code status. Smoking packs per day: 0.33 Smoking cigarettes per day: 6.6 Years smoked: 10 Smoking pack-years: 3.30 Smoking status: Current every day smoker Tobacco type: cigarettes Second hand tobacco smoke exposure: Yes (significant other smokes) Alcohol intake: never Substance us
[2019-12-02] MEDS: HYDROMORPHONE HCL 2 MG/ML VIAL IV PUSH (03:45)
[2019-12-02] MEDS: CLINDAMYCIN 600 MG/D5W 50 ML 600 MG/50 ML PIGGYBACK 100 MG IVPB ×2 (03:51→04:18)
--- NOTE | 2019-12-02 04:34 | PC.NURSE ---
pt to floor per stretcher with all personal belongings with rodriguez vilchis pt stable . states itching has improved since benadryl.
--- NOTE | 2019-12-02 05:00 | PC.NURSE ---
Patient on gentamiacin 60 mg. 80 mg/2ml vial available. Pharmacy called to verify dosing at 1.5 ml/50 ml bag.
[2019-12-02] MEDS: GENTAMICIN 60 MG/50 ML NS 60 MG/50 ML BAG 100 MG IVPB (05:10)
[2019-12-02] MEDS: SODIUM CHLORIDE 0.9% IV 1,000 ML 100 ML IV CONT ×2 (05:45→16:32)
--- NOTE | 2019-12-02 06:04 | ADMGEN ---
This patient, Steph Camacho, was admitted to 2nd Floor Room 208-2. Patient oriented to hospital policies and general routines including ID bracelet, bed and alarms, visiting hours, pain management, procedures, bathroom and other care routines, personal items, smoking policy, room service/diet, and visiting hours. Valuables list includes boots, clothes, purse, glasses, silver colored amanda ring. Patient had $630 in [place] with her and patient, this nurse and charge nurse all counted the money together and money is in med room. Information on how to activate the Rapid Response Team has been discussed. Patient are encouraged to report perceived risks to care and to ask questions if they do not understand what they are told or what they should do.
[2019-12-02 08:22] LABS: Glucose Point of Care 261 (65-105)
--- NOTE | 2019-12-02 08:38 | PC.NURSE ---
Diphenhydramine 25mg given at [address] Carrera. Give another 25mg in 30 minutes as needed for itching x1.
[2019-12-02] MEDS: HYDROMORPHONE HCL 2 MG/ML VIAL 1 MG IV PUSH (11:30)
[2019-12-02] MEDS: KETOROLAC 15 MG/ML VIAL (*BKC) IV PUSH ×2 (11:31→21:14)
[2019-12-02 11:42] LABS: Basophils Absolute Auto 0.05 K/mm3 (0.00-0.10); Basophils Percent Auto 0.9 % (0.0-1.0); Eosinophils Absolute Auto 0.06 K/mm3 (0.02-0.50); Eosinophils Percent Auto 1.1 % (1.0-6.0); Hematocrit 39.5 % (35.0-49.0); Hemoglobin 12.9 g/dL (12.0-15.0); Immature Granulocyte Absolute 0.01 K/mm3 (0.00-0.00); Immature Granulocyte Percent A 0.2 % (0.0-0.0); Lymphocytes Absolute Auto 2.25 K/mm3 (1.10-4.50); Lymphocytes Percent Auto 41.7 % (18.0-42.0); Mean Corpuscular HGB Conc 32.7 g/dL (32.0-36.0); Mean Corpuscular Hemoglobin 31.1 pg (27.0-31.0); Mean Corpuscular Volume 95.2 fL (78.0-102.0); Mean Platelet Volume 10.6 fl (9.2-11.8); Monocytes Absolute Auto 0.36 K/mm3 (0.10-0.90); Monocytes Percent Auto 6.7 % (2.0-11.0); Neutrophils Absolute Auto 2.7 K/mm3 (1.7-7.2); Neutrophils Percent Auto 49.4 % (50.0-70.0); Platelet Count Result 149 K/mm3 (150-420); Red Blood Count 4.15 M/mm3 (4.20-5.40); White Blood Count 5.4 K/mm3 (4.8-10.8)
[2019-12-02 12:02] LABS: Alanine Aminotransferase 15 U/L (14-59); Albumin Level 3.3 g/dL (3.4-5.0); Alkaline Phosphatase 57 U/L (46-116); Anion Gap 14.9 mmol/L (7-16); Aspartate Amino Transferase 16 U/L (15-37); Bilirubin,Total 0.7 mg/dL (0.00-1.00); Blood Urea Nitrogen 7 mg/dL (7-18); Carbon Dioxide 24 mmol/L (21-32); Chloride 106 mmol/L (98-108); Estimated CRCL calculation 88 ml/min; Estimated Glomerular Filt Rate > 60; Glucose 124 mg/dL (70-99); Osmolality Calculated 291 mOsm/kg (285-295); Potassium 3.9 mmol/L (3.5-5.1); Sodium 141 mmol/L (136-145); Total Protein 6.2 g/dL (6.4-8.2)
[2019-12-02 12:24] LABS: Gentamicin Trough 0.8 ug/mL (0.0-2.0)
--- NOTE | 2019-12-02 13:38 | PM.IMHP ---
H&P: HPI History of Present Illness Chief complaint: Abdominal Pain Narrative: Steph Camacho is a 29 year old female who was admitted with abdominal pain periumbilical and pelvic pain that started approximately 3 days ago and has intensified over the last 24 hours prior to calling EMS. Her pain worsened overnight and she presented to our emergency department. Patient states she had a low-grade fever at home, but in the ED whe was afebrile. She did have some nausea with no vomiting no radiation however abdominal pain, currently there is no dysuria no hematuria. No chest pain shortness of breath no diarrhea or constipation. The patient has an history of bilateral tubal ligation / adhesio lysis, and ablation of her endometrium. The patient has a OB/investigator internal revenue Dr. Worley in [place], [place] and is scheduled for hysterectomy in the beginning of December. The patient had admission at [facility] in August of 2019 for an ileus / enteritis and was treated with clindamycin and gentamicin and conservative treatment. Patient has been followed by her investigator internal revenue and is status post laparoscopic bilateral tubal ligation, and endometrial ablation. Patient has a history of diabetes and hypothyroidism, for diabetes is currently on insulin pump. The patient stated that she was instructed by her OBGYN to continue oral antibiotics, until her surgery in December. But she can't remember the name of the antibiotic, and admitted finally that she is out of the antibiotic at home and has no longer been taking it. I reviewed her discharge orders for when she was last at [facility] in August and she was discharged on Flagyl and Levaquin. She did not recognize either of those medications, but stated that she finished all of those doses as instructed. Possible related history: Acute cervicitis, Dysmenorrhea , Endometritis, History of UTI, Ovarian cyst, Status post cholecystectomy, Status post endometrial ablation, Status post ovarian cystectomy, Status post tubal ligation. This morning and went to examine the page Marry Choi and she did complain of lower abdominal suprapubic pain, slightly to the left lower abdomen. She has no distension, there is no palpable mass, she is not firm, her belly is soft and palpable with no rebound pain. Her abdominal exam is really asymptomatic. But when you ask her where her pain is located, she points to her left lower abdomen and suprapubic area. She states that this pain does not tied to any physical position her and is not related to eating or not eating. Steph did admit to taking high doses of ibuprofen anywhere from 800 mg to 1000 mg at a time, multiple times a day to relieve her inflammation at her teeth as well as her pelvic discomfort and inflammation due to endometriosis. This may have contributed to the creation of an ulcer in some form, within the GI tract. I highly recommended to the patient that she see a GI physician immediately after discharge to get any EGD and a colonoscopy. We tried clear liquids this morning and with her lunch, she denied having any worsening abdominal pain, no nausea vomiting or nausea today. She is concerned about her blood sugars and feels that they are bottoming out despite all the glucose checks we have today being above 90. She requested that her evening meal tonight be advanced to regular diet as she is very concerned about hypoglycemia. I did go ahead and advance her diet, but did warn the patient that advancing her diet too fast could cause a significant increase in her abdominal pain as well as return her nausea and vomiting. She voiced understanding. She denied IV fluids including dextrose IV fluids. I did speak with her about why we switched from IV clindamycin and gentamicin back to IV Flagyl and Cipro; as we feel this is more GI /Enteritis/ Ileus related than OBGYN/ pelvic abscess /endometriosis related. Her labs all remained stable today , blood cultures remain pending, her UA showed posit
[2019-12-02] MEDS: LORATADINE 10 MG TABLET PO (14:01)
[2019-12-02] MEDS: LORATADINE 10 MG TABLET (14:33)
[2019-12-02] MEDS: CIPROFLOXACIN 400 MG/D5W 200ML 200 ML 200 MG IVPB ×2 (14:33→21:13)
[2019-12-02 15:49] LABS: Add Urine Microscopic? NO; Appearance Urine Clear (Clear); Bilirubin Urine Negative (Negative); Blood Urine Negative (Negative); Color Urine Yellow (Yellow); Glucose Urine UA Negative (Negative); Ketones Urine Negative (Negative); Leukocyte Esterase Ur Negative (Negative); Nitrate Urine Negative (Negative); Protein Urine Negative (Negative); Specific Grav Ur 1.015 (1.010-1.020); Urobilinogen Urine 0.2 mg/dL (0.2-1.0)
--- NOTE | 2019-12-02 16:30 | PC.NURSE ---
Patient states she is bottoming out, blood sugar. Patient has automatic blood sugar monitor. Lowest blood sugar is 86.
[2019-12-02] MEDS: HYDROCORTISONE 1% 30 GM CREAM 1 APPLIC TOPICAL (16:32)
[2019-12-02] MEDS: metroNIDAZOLE 500 MG/ISO 100ML 500 MG/100 ML BAG 100 MG IVPB ×2 (16:41→23:30)
--- NOTE | 2019-12-02 21:00 | PC.NURSE ---
Blood sugar from patients sensor is 190
[2019-12-03] VITALS: BP 91/57; PULSE 86; RESP 18; TEMP 36.3; O2SAT 97
[2019-12-03] MEDS: KETOROLAC 15 MG/ML VIAL (*BKC) IV PUSH (03:52)
[2019-12-03] MEDS: SODIUM CHLORIDE 0.9% IV 1,000 ML 100 ML IV CONT (03:52)
[2019-12-03 04:00] VITALS: BP 93/59; PULSE 94; RESP 20; TEMP 36.8; O2SAT 99
--- NOTE | 2019-12-03 04:25 | PC.NURSE ---
Patient reporting increased abdominal pain and urinary urgency. She is reporting whitich, mucus consistency discharge when she voids. Production Crew Supervisor noted urine to be clear, dark yellow, with no visible mucus.
--- NOTE | 2019-12-03 04:53 | PC.NURSE ---
Dr. Carrera called regarding pt's c/o abdominal pain and discomfort. Orders received and noted.
[2019-12-03] MEDS: CIPROFLOXACIN 400 MG/D5W 200ML 200 ML 200 MG IVPB (05:00)
[2019-12-03] MEDS: MORPHINE SULFATE 2 MG/ML INJ (05:17)
[2019-12-03 06:06] LABS: Anion Gap 12.5 mmol/L (7-16); Blood Urea Nitrogen 6 mg/dL (7-18); Calcium 7.6 mg/dL (8.5-10.1); Carbon Dioxide 24 mmol/L (21-32); Chloride 106 mmol/L (98-108); Estimated CRCL calculation 73 ml/min; Estimated Glomerular Filt Rate > 60; Glucose 270 mg/dL (70-99); Magnesium 1.4 mg/dL (1.8-2.4); Osmolality Calculated 295 mOsm/kg (285-295); Phosphorus 3.8 mg/dL (2.6-4.7); Potassium 3.5 mmol/L (3.5-5.1); Sodium 139 mmol/L (136-145)
[2019-12-03] MEDS: metroNIDAZOLE 500 MG/ISO 100ML 500 MG/100 ML BAG 100 MG IVPB (06:12)
[2019-12-03] MEDS: MORPHINE SULFATE 2 MG/ML INJ IV PUSH (06:44)
--- NOTE | 2019-12-03 07:09 | PC.NURSE ---
Patient continues to report worsening abdominal pain after morphine. Patient states that she is miserable. She states that she feels worse now than she did when she came in. She states that her outpatient dietitian Dr. Worley [place] She also states that she has seen a dry cleaner apprentice at [facility] in the past. Patient states that she would like to transfer to [facility] if possible. Truck Shop Mechanic informed patient that charge nurse would be made aware of her wishes. Charge nurse was notified of the patients desire to transfer.
[2019-12-03 08:00] VITALS: BP 95/56; PULSE 88; RESP 16; TEMP 36.9; O2SAT 97
[2019-12-03] MEDS: LEVOTHYROXINE SODIUM 25 MCG TABLET PO (08:45)
[2019-12-03] MEDS: LORATADINE 10 MG TABLET PO (08:45)
[2019-12-03] MEDS: PANTOPRAZOLE SODIUM IV 40 MG VIAL IV PUSH (08:45)
[2019-12-03] MEDS: MAGNESIUM SULF 2 GM/WATER 50ML 2 GM/50 ML BAG IVPB (09:36)
[2019-12-03] MEDS: HYDROMORPHONE HCL 2 MG/ML VIAL 1 MG IV PUSH (09:50)
--- NOTE | 2019-12-03 10:31 | PCDIET ---
1905 pt will not allow staff to do fingerstick. has her own dexa-scan. claims bs @ this time. 179. wants to talk to . does not want to stay here. wants to go to [facility] were her personal doctor is. everyone aware.
--- NOTE | 2019-12-03 10:33 | PC.NURSE ---
0815 claims breakfast is to cold. wants more. did bring her did bring more. still wants to transfer out. wants Dilaudid back. would rather itch than have no pain control with morphine or oral meds. claims pain is constant pressure in lower abd and radiates to her back. CLAIM PROCESSOR aware.
--- NOTE | 2019-12-03 10:37 | PC.NURSE ---
1025 calls out claims her dexi scan claims she is 77 did show staff the reading. claims still feels fine but wants something sweet to keep her from dropping. candy bars at bedside and oj given with metamucil
[2019-12-03] MEDS: PSYLLIUM POWDER PACKET 1 PACKET PO (10:56)
[2019-12-03 12:00] VITALS: BP 102/45; PULSE 78; RESP 18; TEMP 36.6; O2SAT 96
--- NOTE | 2019-12-03 13:04 | PM.DS ---
DS: Diagnosis Admitting Diagnosis Admitting Diagnosis: Other fecal abnormalities Discharge Diagnosis (1) Occult blood positive stool: Code(s): R19.5 - Other fecal abnormalities Status: Acute Assessment and Plan: she has a recent history of diarrhea prior to this admission, with the patient stating that her diarrhea looked like coffee grinds Her H&H is stable and she has had no active bleeding today patient denies history of hemorrhoids but did admit that she was having 2-3 diarrhea episodes a day prior to this admission so perhaps that is why her stool sample showed occult blood. Educated the patient about the importance of her stopping her daily ibuprofen dosing at home, educated her about how ibuprofen can erode her GI tract and causes small bleeds. Emphasized the importance of her following up with GI after discharge, and encouraged her to get an EGD and a colonoscopy I was able to get a copy of her EGD and her colonoscopy completed at [facility] on December 12, 2018, those results show normal duodenum with biopsies collected to assess for celiac disease, minimal gastritis of the stomach and a normal esophagus, Dr. Valadez said he was going to order a new gastric emptying study to assess for gastroparesis. Her colonoscopy showed small internal hemorrhoids, a polyp in the sigmoid with a polypectomy and otherwise unremarkable colon mucosa with normal terminal ileum. Her CBC showed stable hemoglobin and hematocrit today, I have ordered repeat labs to be done in 3 days with results to go to Dr. Grier her primary care doctor I have instructed her to follow-up with Dr. Valadez and her primary care doctor within the next 1-2 weeks she was able to eat and drink today without any difficulty, no diarrhea no nausea no vomiting today or yesterday. (2) Suprapubic abdominal pain: Code(s): R10.2 - Pelvic and perineal pain Status: Acute Assessment and Plan: Change Protonix to IV b.i.d. will try clear liquid diet today, may advance diet as tolerated discontinued her Dilaudid, as the patient felt that was causing her hives and itching continued her IV fluids change her IV antibiotics from clindamycin and gentamicin to IV Flagyl and IV Cipro. Emphasize the importance of her following up with GI after discharge, and encouraged her to get an EGD and a colonoscopy I was able to get a copy of her EGD and her colonoscopy completed at [facility] on December 12, 2018, those results show normal duodenum with biopsies collected to assess for celiac disease, minimal gastritis of the stomach and a normal esophagus, Dr. Valadez said he was going to order a new gastric emptying study to assess for gastroparesis. Her colonoscopy showed small internal hemorrhoids, a polyp in the sigmoid with a polypectomy and otherwise unremarkable colon mucosa with normal terminal ileum. Her CBC showed stable hemoglobin and hematocrit today, I have ordered repeat labs to be done in 3 days with results to go to Dr. Grier her primary care doctor I have instructed her to follow-up with Dr. Valadez and her primary care doctor within the next 1-2 weeks she was able to eat and drink today without any difficulty, no diarrhea no nausea no vomiting today or yesterday. Continued her on oral Flagyl and oral Cipro at discharge continued her on oral Protonix, as well as a bland diet at discharge (3) Enteritis: Code(s): K52.9 - Noninfective gastroenteritis and colitis, unspecified Status: Acute Assessment and Plan: was likely the cause of her discomfort and abdominal pain she has a recent history of this as well and [facility] in August and October I have instructed her to follow-up with Dr. Valadez and her primary care doctor within the next 1-2 weeks she was able to eat and drink today without any difficulty, no diarrhea no nausea no vomiting today or yesterday. Continued her on oral Flagyl and oral Cip
[2019-12-03 13:14] LABS: Basophils Absolute Auto 0.03 K/mm3 (0.00-0.10); Basophils Percent Auto 0.7 % (0.0-1.0); Eosinophils Absolute Auto 0.08 K/mm3 (0.02-0.50); Eosinophils Percent Auto 1.9 % (1.0-6.0); Hematocrit 34.1 % (35.0-49.0); Hemoglobin 11.8 g/dL (12.0-15.0); Lymphocytes Absolute Auto 1.74 K/mm3 (1.10-4.50); Lymphocytes Percent Auto 41.4 % (18.0-42.0); Mean Corpuscular HGB Conc 34.6 g/dL (32.0-36.0); Mean Corpuscular Volume 89.5 fL (78.0-102.0); Mean Platelet Volume 9.8 fl (9.2-11.8); Monocytes Absolute Auto 0.37 K/mm3 (0.10-0.90); Monocytes Percent Auto 8.8 % (2.0-11.0); Neutrophils Percent Auto 47.2 % (50.0-70.0); Platelet Count Result 208 K/mm3 (150-420); Red Blood Count 3.81 M/mm3 (4.20-5.40); Red Cell Distribution Width 11.9 % (11.6-14.4); White Blood Count 4.2 K/mm3 (4.8-10.8)
[2019-12-03 13:37] LABS: SARS-CoV-2 RNA PCR Negative
--- NOTE | 2019-12-03 15:54 | PC.NURSE ---
1200 claims dexi scan reads 129. crying at this time. claims pain is better, but she needs to be discharged at this time.because she has no grid trimmer for childern. denies any itching from pain meds.
--- NOTE | 2019-12-03 15:57 | PC.NURSE ---
1400 ready for dc at this time. claims she will call her own dr for follow ups. Counted out $630 dollars and she placed in purse and was discharged to family roll picker at this time.
--- NOTE | 2019-12-03 22:30 | PM.EVENT ---
Event Note Event Note Event Note: The patient told me this morning that she does feel like her pain is well controlled. Her appetite is poor but feels that she must eat noted to keep her blood sugars from going down. Patient is checking her blood sugars frequently and adjusting her insulin pump on her own. She is not allowing fingersticks. Alert oriented. Mild acute distress. Lungs are clear to auscultation. Regular rate and rhythm without murmur rub or gallop. Extremities are warm dry and pink. Modest tenderness to palpation the abdomen without guarding or rigidity. Patient states that she must go home today to provide care for her child. She states that she is aware of the potential complications including hypoglycemia, further GI bleeding, and difficulty with pain control. She wants to sign out AMA. I have examined the patient and reviewed the chart. I discussed the patient's care with A Homero PERRY and agree with her assessment and plan
--- NOTE | 2019-12-12 15:05 | PC.NURSE ---
12-03-2019 !350 ns ivf stopped at this time.
--- NOTE | 2019-12-29 23:24 | PC.NURSE ---
Late entry for 12/02/2019 Gentamicin sulfate/sodium chloride started at 0510. Completed at 0540 12/03/2019
--- NOTE | 2019-12-30 16:53 | PC.NURSE ---
late entry on 12-03-2019 mag durhmafernando chew started @ 0936 and stopped 2 1036.
== END 2019-12-03 14:00 | disposition home or self-care (01) ==
LOC: CHSED 03:48 → CHS2ND 03:54
PROVIDERS: Nurse Practitioner; Admitting Provider Emergency Medicine; Emergency Provider Emergency Medicine; PCP Family Medicine; Visit Provider Emergency Medicine
DX: K52.9 Noninfective gastroenteritis and colitis, unspecified (principal); R19.5 Other fecal abnormalities; R82.90 Unspecified abnormal findings in urine; E03.9 Hypothyroidism, unspecified; K21.9 Gastro-esophageal reflux disease without esophagitis; E10.9 Type 1 diabetes mellitus without complications; N80.9 Endometriosis, unspecified; Z96.41 Presence of insulin pump (external) (internal); F17.210 Nicotine dependence, cigarettes, uncomplicated; Z20.828 Contact with and (suspected) exposure to other viral communicable diseases
CPT/HCPCS: 36415; 74177; 80048; 80053; 80170; 81001; 81003; 81025; 83605; 83690; 83735; 84100; 85025; 85610; 85730; 87040; 87635; 87661; 93005; 96361; 96365; 96367; 96368; 96375; 96376; 99285; A9270; C9113; G0378; G0379; J0744; J1170; J1200; J1580; J1885; J2270; J2405; J3475; J7030; Q9965; U0003

== ENCOUNTER 2019-12-20 00:08 | Outpatient (CLI) | payer OTHER, SELFPAY ==
[2019-12-20 18:00] LABS: SARS-CoV-2 RNA PCR Negative
== END 2019-12-20 00:09 | disposition home or self-care (01) ==
LOC: ANHCOVIDDT 00:08
PROVIDERS: PCP Family Medicine; Visit Provider Obstetrics & Gynecology
DX: Z01.818 Encounter for other preprocedural examination (principal); Z11.59 Encounter for screening for other viral diseases
CPT/HCPCS: 87635; C9803; U0003

== ENCOUNTER 2019-12-22 11:02 | Outpatient (CLI) | payer OTHER, SELFPAY | END 2019-12-22 11:03 | disposition home or self-care (01) | PROVIDERS: PCP Family Medicine; Referring Provider Anesthesiology; Visit Provider Obstetrics & Gynecology | DX: E10.9 Type 1 diabetes mellitus without complications (principal); R10.2 Pelvic and perineal pain; Z01.818 Encounter for other preprocedural examination | CPT/HCPCS: 36415; 83036; 86850; 86900; 86901 ==

== ENCOUNTER 2019-12-24 15:30 | Observation (INO) | payer OTHER, SELFPAY ==
[2019-12-16 07:28] VITALS: BMI 20.5
[2019-12-23] VITALS (18 sets, daily range): BP systolic 77–112; BP diastolic 37–72; PULSE 75–107; RESP 12–18; TEMP 36.4–37.4; O2SAT 95–100
[2019-12-23] MEDS: LACTATED RINGERS 1,000 ML 30 ML IV CONT ×2 (06:35→10:27)
[2019-12-23 06:53] LABS: Glucose Point of Care 127 (65-105)
--- NOTE | 2019-12-23 07:00 | WPDANESEPPF ---
Anes - Initial Pre Proc Eval Procedure: Operation Date: 12/23/19 07:30 Proposed Procedures p Total Laparoscopic Hysterectomy - Andreas Worley MD Date/Time: 12/23/19 07:00 Surgeon: Andreas Worley MD Pre Op Diagnosis: Menorrhea, dyspareunia and Pelvic Pain Patient Data Age: 29 Gender: F Height: 5 ft 5 in Weight: 55.79 kg Allergies Allergy/AdvReac Type Severity Reaction Status Date / Time Latex, Natural Rubber Allergy Severe Hives Verified 12/23/19 06:08 peanut oil Allergy Severe Difficulty Verified 12/23/19 06:08 Breathing metoclopramide [From Reglan] AdvReac Mild Anxiety Verified 12/23/19 06:08 Home Medications Medication Instructions Recorded Confirmed Type insulin lispro [Admelog U-100 3 unit CONTINUOUS SUBCUTANEOUS 07/25/19 12/23/19 History Insulin lispro] INFUSION DIRECTED hydrocortisone 1 applic TOPICAL Q4H PRN #28 gm 12/03/19 12/23/19 Rx levothyroxine 50 mcg PO DAILY 12/16/19 12/23/19 History loratadine 10 mg PO QAM PRN 12/16/19 12/23/19 History tramadol 50 mg PO Q8H PRN 12/16/19 12/23/19 History Laboratory Tests 12/23/19 06:38 POC Capillary Glucose 127 mg/dl H mg/dl (65-105) Patient hx anesthesia problems: none Family hx anesthesia problems: none [facility] Social History Social History (Updated 08/23/19 @ 12:19 by Sabra Bro PA-C) Social History: The patient lives in [place], [place] with her 8-year-old daughter. 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 She tells me she smokes 7-8 cigarettes a day for the last 10 years. She reports occasional marijuana use. She denies alcohol use. Her PCP is Dr. Rodney Grier. She designates her mother, Olya Rodriguez, as her surrogate decision maker and she is full code status. Smoking packs per day: 0.33 Smoking cigarettes per day: 6.6 Years smoked: 10 Smoking pack-years: 3.30 Smoking status: Current every day smoker Tobacco type: cigarettes Second hand tobacco smoke exposure: Yes Alcohol intake: never Substance use: former Substance use type: marijuana Gender identity (if verbalized by the patient): Female Spiritual care concerns: No Agree to blood products: Yes Anes - Eval Final PreProcedure Day of Procedure 12/23/19 07:00 Patient weight: normal Heart: regular rate and rhythm Lungs: clear to auscultation Airway: Mallampati scale class II Neurological: alert and oriented Last oral intake: >/= 8 hours ASA classification: III Emergent: no Anesthetic plan: proceed Anesthesia type and monitoring: general ETT and standard monitoring Informed Consent: The patient's anesthetic plan and its attendant risks and benefits were discussed with the patient/family/POA. Questions were solicited and answers provided to the satisfaction of the patient/family/POA.
[2019-12-23] MEDS: IBUPROFEN IV 800 MG/200 ML 800 MG/200 ML BAG 400 MG IVPB (07:04)
--- NOTE | 2019-12-23 07:19 | WPDHPUPDATE1 ---
History and Physical Update Update Date/Time: 12/23/19 07:19 History and Physical has been reviewed, including an updated exam of the patient. There are NO changes in the patient's condition. Risks, benefits, and alternatives have been discussed and questions answered. Patient agrees to proceed with procedure.
[2019-12-23] MEDS: ceFAZolin 2 GM/D5W 50 ML 2 GM/50 ML BAG IVPB (07:47)
--- NOTE | 2019-12-23 10:35 | P.OP_ITS ---
Procedure Note - Detailed Date of procedure: 12/23/19 Pre-op diagnosis: Menorrhea, dyspareunia and Pelvic Pain Severe menorrhagia, endometriosis Post-op diagnosis: same Procedure performed: Total laparoscopic hysterectomy bilateral salpingo- oophorectomy Description of procedure: The patient was taken to the operating room. She was prepped and draped in the dorsal lithotomy position. A speculum was placed in the vagina. The cervix was grasped with a tenaculum. Stay sutures were placed at 3 and 9:00 a.m. of 0 Vicryl. The stay sutures were brought through the Jorge up. The NITESH manipulator was placed in the vagina with a fixed Jorge cup. The cup was then pushed up around the cervix. The sutures were tied to the handle of the NITESH manipulator. A 5 mm incision was made on the abdominal skin of the left upper quadrant using a scalpel. A 5 mm trocar was inserted into the intra-abdominal cavity under direct visualization the scope. Pneumoperitoneum was achieved. An 11 mm incision was made in the left lower quadrant of the abdomen with a scalpel. A 11 mm trocar was inserted into the intra-abdominal cavity under direct visualization the scope. A 5 mm periumbilical incision was made. A 5 mm scope was placed into the intra-abdominal cavity under direct visualization of the scope. The ureters were identified. The ureters were observed to be away from the infundibulopelvic ligaments. These infundibulopelvic ligaments were isolated, cauterized, and transected with LigaSure cautery. This was done in a bilateral fashion. The para ovarian tissue along the pelvic sidewall was cauterized and transected in a bilateral fashion using the ligature cautery. The round ligaments were cauterized and transected bilaterally with LigaSure cautery. The broad ligaments were cauterized and transected along the lateral aspects of the uterus down the level of the uterine arteries. A bladder flap was created using sharp and blunt dissection. The ureters were dissected out bilaterally down to the level of the uterine arteries. The could be visualized from the pelvic brim down the uterine arteries. Staying very close to the cervix the parametrium was cauterized transected in a stepwise fashion down to the level of the Jorge cup. The Bladder flap was moved distally over the Jorge cup using sharp and blunt dissection. The cup was visualized and a complete 360 degree papillary around the cervix. An incision was made with unipolar cautery down under the Jorge cup creating a colpotomy incision all the way around the cervix. The uterus tubes and ovaries were taken out through the vagina. A pneumo occluder was placed in the vagina. The vagina was closed with 0 V lock suture in a running fashion. The ureters were identified again and found to be intact elevated and the uterine arteries. The pelvis was irrigated with a copious amount of antibiotic irrigation. The pneumoperitoneum was reduced. The trocars were removed. The skin was closed subcuticular 4 Monocryl covered with Dermabond. The pneumo occluder was removed from the vagina. The vagina was irrigated with Betadine. The patient tolerated the procedure well. She was taken to the recovery room in stable condition. Sponge lap and needle counts were correct x2. Anesthesia: GETA Surgeon: Andreas Worley MD Estimated blood loss (mL): 200 Drains: No Packing: No Pathology: yes Complications: No immediate complications Condition: stable Disposition: PACU Findings: Grossly normal-appearing uterus tubes and ovaries. Thickened peritoneum, endometriosis lesions - post cul de sac
[2019-12-23] MEDS: HYDROMORPHONE HCL 1 MG/ML INJ 0.5 MG IV PUSH ×2 (11:00→11:17)
[2019-12-23 11:04] LABS: Glucose Point of Care 215 (65-105)
[2019-12-23] MEDS: ONDANSETRON INJ 4 MG/2 ML VIAL IV PUSH (11:28)
--- NOTE | 2019-12-23 12:52 | PC.NURSE ---
This patient, Steph Camacho, was received from PACU on 12/23/19 at 1145. Patient/family oriented to unit policies and routines
[2019-12-23] MEDS: HYDROMORPHONE HCL 1 MG/ML INJ IV PUSH ×3 (13:15→23:40)
[2019-12-23 13:27] LABS: Glucose Point of Care 412 (65-105)
[2019-12-23] MEDS: PROMETHAZINE HCL 25 MG/ML AMPUL IV PUSH (14:03)
[2019-12-23] MEDS: SODIUM CHLORIDE 0.45% 1,000 ML 125 ML IV CONT ×2 (14:03→23:30)
[2019-12-23 15:12] LABS: Glucose Point of Care 333 (65-105)
--- NOTE | 2019-12-23 16:00 | PC.NURSE ---
Pt. insulin pump alerting to high level. Accu check done at bedside results of 412 at 1320. Pt. gave herself bolus through pump. Dr. Worley notified at 1326. IV fluids changed from D5 and 1/2 to .45 NaCl. Accu check done again at 1505 with result of 333. Pt gave herself another bolus.
--- NOTE | 2019-12-23 17:07 | PC.NURSE ---
Blood sugar per pt's monitor 303 at 1600, pt states I turned it off for a while, that is probably why it is high Blood sugar 270 per pt's monitor at 1700.
[2019-12-23] MEDS: ONDANSETRON INJ 4 MG/2 ML VIAL 8 MG IV PUSH (19:21)
--- NOTE | 2019-12-23 23:37 | PC.NURSE ---
1800 Patient has a continuous glucose monitor and her blood sugar is 233. Brandon DAVIS
--- NOTE | 2019-12-23 23:39 | PC.NURSE ---
2100 Patient has a CGM and her blood glucose is 210 with a basal rate of 3. Brandon DAVIS
[2019-12-24] MEDS: ONDANSETRON INJ 4 MG/2 ML VIAL 8 MG IV PUSH ×2 (03:32→09:19)
[2019-12-24 05:25] VITALS: BP 106/51; PULSE 101; RESP 14; TEMP 37.2; O2SAT 97
[2019-12-24] MEDS: IBUPROFEN 600 MG TABLET PO ×2 (09:20→15:12)
[2019-12-24] MEDS: LEVOTHYROXINE SODIUM 50 MCG TABLET PO (09:22)
[2019-12-24 09:30] VITALS: BP 89/51; PULSE 99; RESP 18; TEMP 37.2; O2SAT 99
--- NOTE | 2019-12-24 10:16 | PM.GYNPNOP ---
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 We will continue to observe. Postoperative day: 1 Postoperative status: doing well Time Spent With Patient Time: Total time spent is greater than 50% in coordination of care (as documented) at patient's floor/unit and/or counseling patient: Time with patient: less than 15 minutes VOYAGE MANAGEMENT SYSTEM OPERATOR- PN:Subj Post-Op Subjective Date/time seen: 12/24/19 10:16 Subjective: patient reports feeling better, pain is well controlled and patient reports nausea Exam Const: General: healthy appearing, comfortable and no acute distress Resp: Auscultation: clear to auscultation bilaterally, no rales, no rhonchi and no wheezes Cardio: Rate: regular rate Heart sounds: no click, no murmurs and no rubs GI: Inspection: non-distended Auscultation: normal bowel sounds Extrem: General: normal to inspection, no pedal edema and no calf tenderness VOYAGE MANAGEMENT SYSTEM OPERATOR - PN: Obj Data Vital Signs Vital Signs: Vital Signs - 24 hr 12/23/19 10:27 12/23/19 10:40 12/23/19 10:55 Temperature 97.6 F Pulse Rate 94 92 103 H Respiratory Rate 14 16 18 Blood Pressure 106/62 107/67 104/60 Pulse Oximetry 100 100 98 12/23/19 11:10 12/23/19 11:25 12/23/19 11:45 Temperature 97.5 F L Pulse Rate 103 H 100 98 Respiratory Rate 18 12 16 Blood Pressure 105/60 95/65 L 93/55 L Pulse Oximetry 95 97 100 12/23/19 12:00 12/23/19 12:15 12/23/19 12:30 Temperature Pulse Rate 99 99 Respiratory Rate Blood Pressure 101/55 L 104/56 L 95/53 L Pulse Oximetry 99 98 97 12/23/19 12:45 12/23/19 13:00 12/23/19 13:30 Temperature Pulse Rate 98 100 102 H Respiratory Rate Blood Pressure 96/49 L 77/37 L 104/61 Pulse Oximetry 98 95 95 12/23/19 14:00 12/23/19 15:00 12/23/19 16:00 Temperature 98.1 F Pulse Rate 100 107 H 99 Respiratory Rate 18 Blood Pressure 100/57 L 95/56 L 94/65 L Pulse Oximetry 99 98 12/23/19 20:00 12/23/19 23:00 12/24/19 05:25 Temperature 98.9 F 99.3 F 99.0 F Pulse Rate 75 102 H 101 H Respiratory Rate 18 12 14 Blood Pressure 112/64 105/57 L 106/51 L Pulse Oximetry 100 98 97 Intake/Output Intake/Output: Intake & Output 12/21/19 12/22/19 12/23/19 12/24/19 23:59 23:59 23:59 23:59 Intake Total 2752 0 Output Total 1665 500 Balance 1087 -500 Meds/Results Medications: Active Medications Generic Name Dose Route Start Last Admin Trade Name Freq PRN Reason Stop Dose Admin Hydrocodone Bitart/Acetaminophen 1 tab 12/23/19 11:30 [place] 5-325 Mg PO Q3H PRN Pain Rated 5 or Less Hydrocodone Bitart/Acetaminophen 1 tab 12/23/19 11:30 12/24/19 09:20 [place] 10-325 Mg PO 1 tab Q3H PRN Administration Pain Rated 6 or Greater Hydrocortisone 1 applic 12/23/19 11:30 Hydrocortisone 1% Cream TOPICAL Q4H PRN itching Hydromorphone HCl 1 mg 12/23/19 11:55 12/23/19 23:40 Dilaudid Inj IV PUSH 1 mg Q2H PRN Administration Pain Rated 7-10 Sodium Chloride 1,000 mls @ 125 mls/hr 12/23/19 13:45 12/24/19 07:18 Sodium Chloride 0.45% IV CONT Not Given .Q8H RACH Ibuprofen 600 mg 12/23/19 11:30 12/24/19 09:20 Motrin PO 600 mg Q6H PRN Administration Cramping Levothyroxine Sodium 50 mcg 12/24/19 06:30 12/24/19 09:22 Synthroid PO 50 mcg DAILY@0630 RACH Administration Loratadine 10 mg 12/23/19 11:30 Claritin PO QAM PRN Allergic Symptoms Naloxone HCl 0.1 mg 12/23/19 11:30 Narcan IV PUSH Q2M PRN Respiratory rate less than 10 Insulin Lispro [ 0 unit 12/23/19 11:30 Admelog U-100 SUB-Q 01/22/20 11:31 Insulin Lispro] Home DIRECTED [facility] Infusion Pump Per Home Instructions Ondansetron HCl 8 mg 12/23/19 19:00 12/24/19 09:19 Zofran Inj IV PUSH 8 mg Q6H PRN Administration Nausea And Vomiting Pr
--- NOTE | 2019-12-24 16:30 | PC.NURSE ---
PT received discharge instructions per protocol and verbalized understanding of such care.
--- NOTE | 2019-12-24 16:45 | PC.NURSE ---
PT discharged to home via wheelchair accompanied by spouse to waiting car. Follow up appts confirmed
--- NOTE | 2020-01-20 11:47 | PM.DS ---
DS: Admitting Diagnosis Admitting Diagnosis Admitting Diagnosis: Pelvic and perineal pain DS: Discharge Diagnosis Discharge Diagnosis (1) Pelvic pain: Code(s): R10.2 - Pelvic and perineal pain Status: Acute (2) Menorrhagia: Code(s): N92.0 - Excessive and frequent menstruation with regular cycle Status: Acute DS: Summary Hospital Course Reason for hospitalization: surgery - TLH/BSO Hospital Course: The hospital course is largely unremarkable. She has trouble with pain management, She required an addition day of observation for pain. She ambulated and ate at appropriate times. She was afebrile throughou. Status at Discharge Functional status at discharge: independent ambulation Overall status at discharge: patient is progressing back to baseline Time Spent with Patient Time attestation: Total time spent providing and/or coordinating discharge services: Time spent: Less than 30 minutes DS: Data Data Completed and Pending Completed studies during hospitalization: Pending at discharge 12/23/19 09:07 Surgical [PTH] Routine Surgical [PTH] Routine Discharge Plan Discharge Discharging Clinician: Andreas Worley Patient Disposition: Home, Self-Care Activity: may shower, no driving, as tolerated and pelvic rest Diet: as tolerated and diabetic Patient Instructions: Pain Management (DC), Laparoscopic Hysterectomy (DC) Follow-up/Referrals: Andreas Worley MD [Physician] - 1 Week (Call for appointment in one week) Discharge Medications: New hydrocodone-acetaminophen 5-325 mg tablet 1 - 2 tablet PO Q4H PRN (Reason: pain) Qty: 25 RF: 0 Continued hydrocortisone 1 % Cream 1 applic topical Q4H PRN (Reason: itching) Qty: 28 RF: 0 insulin lispro [Admelog U-100 Insulin lispro] 100 unit/mL Solution 3 unit continuous subcutaneous infusion DIRECTED RF: 0 tramadol 50 mg Tablet 50 mg PO Q8H PRN (Reason: Pain) RF: 0 levothyroxine 50 mcg Capsule 50 mcg PO DAILY RF: 0 loratadine 10 mg tablet 10 mg PO QAM PRN (Reason: Allergic Symptoms) RF: 0 No Action ondansetron 8 mg tablet,disintegrating 8 mg translingual DAILY PRN (Reason: Nausea) RF: 0 estradiol 1 mg tablet 7 mg PO DAILY RF: 0 Date of admission: 12/24/19 15:30 Primary Care Provider: Marvel,Isaias Admitting Provider: Andreas Worley Discharge Date/Time: 12/24/19 16:45 Attending physician on admission: Andreas Worley
== END 2019-12-24 16:45 | disposition home or self-care (01) ==
LOC: ANHSURGERY 15:44 → ANHOB2 15:44
PROVIDERS: Admitting Provider Obstetrics & Gynecology; PCP Family Medicine; Visit Provider Obstetrics & Gynecology
PROC: 0UT9FZZ Resection of Uterus, Via Natural or Artificial Opening With Percutaneous Endoscopic Assistance (ICD-10-PCS; CPT 58552; principal; 2019-12-23 07:30)
DX: N92.0 Excessive and frequent menstruation with regular cycle (principal); N80.0 Endometriosis of uterus; N83.02 Follicular cyst of left ovary; N94.89 Other specified conditions associated with female genital organs and menstrual cycle; N94.6 Dysmenorrhea, unspecified; N94.10 Unspecified dyspareunia; R10.2 Pelvic and perineal pain; F17.210 Nicotine dependence, cigarettes, uncomplicated
CPT/HCPCS: 58552; 88304; 88305; 88307; 99199; A9270; G0378; G0379; J0690; J1100; J1170; J1741; J2250; J2370; J2405; J2550; J2704; J2710; J3010; J7030; J7120

== ENCOUNTER 2019-12-26 07:31 | Observation (INO) | payer OTHER, SELFPAY ==
--- NOTE | ~2019-12-26 | CT_ITS ---
EXAMINATION: CT abdomen pelvis w con DATE: 12/26/2019 08:29 INDICATION: Low abdominal pain. TECHNIQUE: Computed tomography (CT) of the abdomen and pelvis was performed with 100 mL Omnipaque 350 intravenous contrast. Automated exposure control and iterative reconstruction technique were employe d. The dose-length product was 193.18 mGy-cm. COMPARISON: CT abdomen and pelvis 12/02/2019, 07/28/2019 FINDINGS: The visualized portions of the lung bases demonstrate mild atelectasis. No pleural effusion . The heart size is normal. No pericardial effusion. There is a 2.0 cm hyperdense mass in right hepat ic lobe. The spleen is normal. There are changes of cholecystectomy. The pancreas and adrenal glands are normal. There is cortical thinning of the kidneys. There are no dilated loops of bowel. The appen angel is not visualized. There is a small volume of pelvic ascites. There is free intraperitoneal gas, consistent with recent surgery. There are no pathologically enlarged lymph nodes. The bones are unrem arkable. IMPRESSION: 1. Small volume of pelvic ascites. 2. 2.0 cm hyperdense liver mass without change from 07/28/2019, likely a hemangioma or focal nodular hy perplasia. Reviewed, dictated and finalized at location A. IMPRESSION: 1. Small volume of pelvic ascites. 2. 2.0 cm hyperdense liver mass without change from 07/28/2019, likely a hemangio ma or focal nodular hyperplasia.
[2019-12-26 07:37] VITALS: BP 113/73; PULSE 100; RESP 24; TEMP 36.8; O2SAT 100
--- NOTE | 2019-12-26 07:46 | ED.ABDPAIN ---
HPI - Abdominal Pain General Chief Complaint: Abdominal Pain Stated Complaint: abd pain Time Seen by Provider: 12/26/19 07:38 History of Present Illness HPI narrative: BIBEMS c/o Suprapubic abdominal pain since laprascopic hysterectomy by Dr. Worley 3 days ago. Increasing in intensity to 10/10. Stabbing in quality. No radiation. Associated with constipation and nausea. She has been taking 1-2 [place] 5-325 without relief of her symptoms. No fever, distention, vomiting. Related Data Home Medications Medication Instructions Recorded Confirmed insulin lispro [Admelog U-100 3 unit CONTINUOUS SUBCUTANEOUS 07/25/19 12/26/19 Insulin lispro] INFUSION DIRECTED levothyroxine 50 mcg PO DAILY 12/16/19 12/26/19 loratadine 10 mg PO QAM PRN 12/16/19 12/26/19 tramadol 50 mg PO Q8H PRN 12/16/19 12/26/19 Allergies Allergy/AdvReac Type Severity Reaction Status Date / Time Latex, Natural Rubber Allergy Severe Hives Verified 12/26/19 07:43 peanut oil Allergy Severe Difficulty Verified 12/26/19 07:43 Breathing metoclopramide [From Reglan] AdvReac Mild Anxiety Verified 12/26/19 07:43 Review of Systems Review of Systems: All systems reviewed & are unremarkable except as noted in HPI and below Constitutional: Constitutional: Denies fever(s) Cardiovascular: Cardiovascular: Denies chest pain Respiratory: Respiratory: Denies dyspnea Gastrointestinal: Gastrointestinal: Reports abdominal pain, Reports constipation and Reports nausea Genitourinary: Genitourinary: Denies hematuria and Denies dysuria Musculoskeletal: Musculoskeletal: Denies back pain Neurologic: Denies weakness [facility] Past Medical History Medical History Acute cervicitis Dysmenorrhea Endometritis GERD (gastroesophageal reflux disease) History of seizure As a child. History of UTI Hypothyroidism Ovarian cyst Type 1 diabetes mellitus Surgical History Surgical History Status post cholecystectomy Status post endometrial ablation 08/06/19 Dr Worley. Status post ovarian cystectomy 08/06/19 Dr Worley. Status post tubal ligation 08/06/19 Dr Worley. Family History Family History (Updated 12/26/19 @ 10:58 by Kajal Banks RN) Mother Lupus (systemic lupus erythematosus) Scleroderma Diabetes mellitus Heart disease Renal disease Cerebrovascular accident History of blood clots Grandparent Hypertension Social History Social History Social History: The patient lives in [place], [place] with her 8-year-old daughter. 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 She tells me she smokes 7-8 cigarettes a day for the last 10 years. She reports occasional marijuana use. She denies alcohol use. Her PCP is Dr. Rodney Grier. She designates her mother, Olya Rodriguez, as her surrogate decision maker and she is full code status. Smoking packs per day: 0.5 Smoking cigarettes per day: 10.0 Years smoked: 13 Smoking pack-years: 6.50 Smoking status: Current every day smoker Tobacco type: cigarettes Second hand tobacco smoke exposure: Yes (significant other smokes daily) Alcohol intake: current Drinks per week: 1 Substance use: current Substance use type: marijuana Last use: Patient reports last use of Marijuana about 3 weeks ago Gender identity (if verbalized by the patient): Female Spiritual care concerns: No Agree to blood products: Yes Exam Const: General: healthy appearing, no acute distress and alert Nutritional Appearance: well nourished Orientation/consciousness: patient oriented x3 HENMT: Head: normal to inspection Resp: Effort & Inspection: normal respiratory effort Auscultation: clear to auscultation bilaterally Cardio: Rate: regular rate Rhythm: regular rhythm GI: GI Palp: Yes Soft to palpation, Yes Tendernes
[2019-12-26] MEDS: SODIUM CHLORIDE 0.9% IV 1,000 ML 999 ML IV CONT (07:48)
[2019-12-26] MEDS: MORPHINE SULFATE 4 MG/ML INJ IV PUSH ×4 (07:49→19:19)
[2019-12-26] MEDS: ONDANSETRON INJ 4 MG/2 ML VIAL IV PUSH ×4 (07:56→18:10)
[2019-12-26 08:17] LABS: Basophils Percent Auto 0.6 % (0.2-1.2); Eosinophils Absolute Auto 0.1 K/mm3 (0-0.3); Eosinophils Percent Auto 1.4 % (0-4.4); Hematocrit 40.1 % (37.0-47.0); Hemoglobin 13.4 g/dL (12.0-15.0); Immature Granulocyte Absolute 0.01 K/mm3 (0.00-0.031); Immature Granulocyte Percent A 0.2 % (0-0.5); Lymphocytes Absolute Auto 2.12 K/mm3 (0.9-3.2); Lymphocytes Percent Auto 33.1 % (18.3-44.2); Mean Corpuscular HGB Conc 33.4 g/dl (32-36); Mean Corpuscular Hemoglobin 30.5 pg (26-34); Mean Corpuscular Volume 91.1 fl (80-100); Mean Platelet Volume 10.1 fl (7.4-10.4); Monocytes Absolute Auto 0.4 K/mm3 (0.1-0.6); Monocytes Percent Auto 5.9 % (2.6-8.5); Neutrophils Absolute Auto 3.8 K/mm3 (1.3-6.7); Neutrophils Percent Auto 58.8 % (45.5-73.1); Platelet Count Result 235 k/mm3 (150-375); Red Cell Distribution Width 12.2 % (11.5-14.5); White Blood Count 6.4 K/mm3 (4.5-10.0)
[2019-12-26 08:23] LABS: Estimated CRCL calculation 106 ml/min; Estimated Glomerular Filt Rate > 60
[2019-12-26 08:29] LABS: Lactic Acid Reflex 1.1 mmol/L (0.7-2.1)
--- NOTE | 2019-12-26 08:29 | PC.NURSE ---
Pt taken to CT scan
[2019-12-26 08:30] LABS: Alanine Aminotransferase 13 U/L (4-35); Albumin Level 4.3 g/dL (3.5-5.1); Alkaline Phosphatase 69 U/L (38-126); Aspartate Amino Transferase 21 U/L (14-36); Bilirubin,Total 0.8 mg/dL (0.2-1.3); Blood Urea Nitrogen 12 mg/dL (7-17); Calcium 8.8 mg/dL (8.4-10.2); Carbon Dioxide 17 mmol/L (22-30); Chloride 101 mmol/L (98-107); Estimated CRCL calculation 78 ml/min; Estimated Glomerular Filt Rate > 60; Glucose 194 mg/dL (65-105); Lipase 29 U/L (23-300); Potassium 3.9 mmol/L (3.4-5.0); Sodium 134 mmol/L (137-145)
[2019-12-26 09:05] LABS: Add Urine Microscopic? YES; Appearance Urine Clear (Clear); Bilirubin Urine Negative (Negative); Blood Urine Negative (Negative); Color Urine Colorless (Yellow); Glucose Urine UA Negative (Negative); Ketones Urine 2+ mg/dL (Negative); Leukocyte Esterase Ur Negative LEU/UL (Negative); Mucus Urine Rare /lpf; Nitrate Urine Negative (Negative); Protein Urine Negative (Negative); Squamous Epithelial Cell Urine Many /hpf (Few); Urobilinogen Urine Negative mg/dL (<2.0); WBC Urine 0-3 /hpf
[2019-12-26 09:11] LABS: Specific Grav Ur 1.062 (1.001-1.035)
[2019-12-26] MEDS: MORPHINE SULFATE 2 MG/ML INJ IV PUSH (09:51)
[2019-12-26] MEDS: PROMETHAZINE HCL 25 MG/ML AMPUL 12.5 MG IV PUSH (09:54)
[2019-12-26 09:59] VITALS: BP 113/74; PULSE 99; RESP 18; O2SAT 98
--- NOTE | 2019-12-26 10:26 | PC.NURSE ---
Called to give report. Was told by nurse that accepting nurse was in middle of discharge and would call me back.
--- NOTE | 2019-12-26 10:30 | PC.NURSE ---
This patient, Steph Camacho, was admitted to Medical Room 252-01. Patient/family oriented to hospital policies and general routines including ID bracelet, bed and alarms, visiting hours, pain management, procedures, bathroom and other care routines, personal items, smoking policy, room service/diet, and visiting hours. Valuables list has been completed. Information on how to activate the Rapid Response Team has been discussed. Patient/Family are encouraged to report perceived risks to care and to ask questions if they do not understand what they are told or what they should do.
[2019-12-26 10:32] VITALS: BP 105/68; PULSE 100; RESP 17; O2SAT 100
[2019-12-26 11:04] VITALS: BP 93/60; PULSE 98; RESP 16; TEMP 36.7; O2SAT 99; BMI 19.1
[2019-12-26 12:52] VITALS: BMI 19.1
[2019-12-26 13:44] VITALS: BMI 19.1
[2019-12-26 14:00] VITALS: BP 108/53; PULSE 90; RESP 16; TEMP 36.9; O2SAT 96
--- NOTE | 2019-12-26 14:30 | PC.NURSE ---
Patient's insulin pump basal rate order adjusted to Admelog 0.6 units/hour. Original order placed by mistake for Admelog 3 units/hour.
[2019-12-26 16:48] LABS: Glucose Point of Care 118 (65-105)
[2019-12-26 16:48] LABS: Glucose Point of Care 92 (65-105)
[2019-12-26 16:49] LABS: Glucose Point of Care 73 (65-105)
[2019-12-26 17:58] LABS: Glucose Point of Care 62 (65-105)
[2019-12-26] MEDS: DEXTROSE 50% 25 GM/50 ML SYRINGE IV PUSH (18:10)
--- NOTE | 2019-12-26 18:12 | PC.NURSE ---
Patient found to have removed insulin pump while this RN out of room. Educated patient on importance of recognizing and reporting hypoglycemia, along with importance of complying with hospital's policy in regards to insulin pump use and management. Patient verbalized understanding. Notified her Dr. Worley would be notified and new orders obtained to manage diabetes during hospitalization. Obtained orders to discontinue use of insulin pump and start low dose sliding scale novolog.
[2019-12-26 18:45] LABS: Glucose Point of Care 153 (65-105)
[2019-12-26 21:03] VITALS: BP 88/46; PULSE 91; RESP 18; TEMP 36.6; O2SAT 97
--- NOTE | 2019-12-26 21:18 | PC.NURSE ---
At 2114 Pt said she has to leave now to be with her daughter. Its a family emergency. She signed AMA form and I removed her IV. She is crying and said she has to leave now. Notified nursing general car yard supervisor Che DAVIS.
--- NOTE | 2019-12-26 21:27 | PC.NURSE ---
Pt has all over her belongings and I unlocked the closet and gave her dexcon to her. She voiced she had all belongings with her.
--- NOTE | 2020-01-19 08:13 | P.PNOB_ITS ---
OB - Triage/Final Diagnosis Visit Information Date of evaluation: 12/27/19 Evaluation Laboratory results: Laboratory Tests 12/26/19 12/26/19 12/26/19 08:10 08:11 08:11 WBC 6.4 RBC 4.40 Hgb 13.4 Hct 40.1 MCV 91.1 MCH 30.5 MCHC 33.4 RDW 12.2 Plt Count 235 MPV 10.1 Immature Gran % (Auto) 0.2 Neut % (Auto) 58.8 Lymph % (Auto) 33.1 [place] % (Auto) 5.9 Eos % (Auto) 1.4 Baso % (Auto) 0.6 Lymph # (Auto) 2.12 [place] # (Auto) 0.4 Eos # (Auto) 0.1 Baso # (Auto) 0.0 Abs Immat Gran (auto) 0.01 Absolute Neuts (auto) 3.8 Absolute Nucleated RBC 0.0 Nucleated RBC % 0.0 Sodium 134 L Potassium 3.9 Chloride 101 Carbon Dioxide 17 L BUN 12 Creatinine 0.70 Estim Creat Clear Calc 78 Estimated GFR > 60 Glucose 194 H POC Capillary Glucose Lactic Acid 1.1 Calcium 8.8 Total Bilirubin 0.8 AST 21 ALT 13 Alkaline Phosphatase 69 Total Protein 7.0 Albumin 4.3 Lipase 29 Urine Color Urine Appearance Urine pH Ur Specific [place] Urine Protein Urine Glucose (UA) Urine Ketones Ur Blood (Man) Urine Nitrate Urine Bilirubin Urine Urobilinogen Leukocyte Esterase Rfl Urine RBC Urine WBC Ur Squamous Epith Cells Urine Mucus 12/26/19 12/26/19 12/26/19 08:22 08:49 11:13 WBC RBC Hgb Hct MCV MCH MCHC RDW Plt Count MPV Immature Gran % (Auto) Neut % (Auto) Lymph % (Auto) [place] % (Auto) Eos % (Auto) Baso % (Auto) Lymph # (Auto) [place] # (Auto) Eos # (Auto) Baso # (Auto) Abs Immat Gran (auto) Absolute Neuts (auto) Absolute Nucleated RBC Nucleated RBC % Sodium Potassium Chloride Carbon Dioxide BUN Creatinine 0.50 Estim Creat Clear Calc 106 Estimated GFR > 60 Glucose POC Capillary Glucose 118 H Lactic Acid Calcium Total Bilirubin AST ALT Alkaline Phosphatase Total Protein Albumin Lipase Urine Color Colorless Urine Appearance Clear Urine pH 6.0 Ur Specific [place] 1.062 H Urine Protein Negative Urine Glucose (UA) Negative Urine Ketones 2+ H Ur Blood (Man) Negative Urine Nitrate Negative Urine Bilirubin Negative Urine Urobilinogen Negative Leukocyte Esterase Rfl Negative Urine RBC 3-5 H Urine WBC 0-3 Ur Squamous Epith Cells Many H Urine Mucus Rare 12/26/19 12/26/19 12/26/19 11:42 16:42 17:54
--- NOTE | 2020-01-20 11:40 | PM.OBTRLD ---
OB - Triage/Final Diagnosis Visit Information Date of evaluation: 12/28/19 Evaluation Laboratory results: Laboratory Tests 12/26/19 12/26/19 12/26/19 08:10 08:11 08:11 WBC 6.4 RBC 4.40 Hgb 13.4 Hct 40.1 MCV 91.1 MCH 30.5 MCHC 33.4 RDW 12.2 Plt Count 235 MPV 10.1 Immature Gran % (Auto) 0.2 Neut % (Auto) 58.8 Lymph % (Auto) 33.1 [place] % (Auto) 5.9 Eos % (Auto) 1.4 Baso % (Auto) 0.6 Lymph # (Auto) 2.12 [place] # (Auto) 0.4 Eos # (Auto) 0.1 Baso # (Auto) 0.0 Abs Immat Gran (auto) 0.01 Absolute Neuts (auto) 3.8 Absolute Nucleated RBC 0.0 Nucleated RBC % 0.0 Sodium 134 L Potassium 3.9 Chloride 101 Carbon Dioxide 17 L BUN 12 Creatinine 0.70 Estim Creat Clear Calc 78 Estimated GFR > 60 Glucose 194 H POC Capillary Glucose Lactic Acid 1.1 Calcium 8.8 Total Bilirubin 0.8 AST 21 ALT 13 Alkaline Phosphatase 69 Total Protein 7.0 Albumin 4.3 Lipase 29 Urine Color Urine Appearance Urine pH Ur Specific [place] Urine Protein Urine Glucose (UA) Urine Ketones Ur Blood (Man) Urine Nitrate Urine Bilirubin Urine Urobilinogen Leukocyte Esterase Rfl Urine RBC Urine WBC Ur Squamous Epith Cells Urine Mucus 12/26/19 12/26/19 12/26/19 08:22 08:49 11:13 WBC RBC Hgb Hct MCV MCH MCHC RDW Plt Count MPV Immature Gran % (Auto) Neut % (Auto) Lymph % (Auto) [place] % (Auto) Eos % (Auto) Baso % (Auto) Lymph # (Auto) [place] # (Auto) Eos # (Auto) Baso # (Auto) Abs Immat Gran (auto) Absolute Neuts (auto) Absolute Nucleated RBC Nucleated RBC % Sodium Potassium Chloride Carbon Dioxide BUN Creatinine 0.50 Estim Creat Clear Calc 106 Estimated GFR > 60 Glucose POC Capillary Glucose 118 H Lactic Acid Calcium Total Bilirubin AST ALT Alkaline Phosphatase Total Protein Albumin Lipase Urine Color Colorless Urine Appearance Clear Urine pH 6.0 Ur Specific [place] 1.062 H Urine Protein Negative Urine Glucose (UA) Negative Urine Ketones 2+ H Ur Blood (Man) Negative Urine Nitrate Negative Urine Bilirubin Negative Urine Urobilinogen Negative Leukocyte Esterase Rfl Negative Urine RBC 3-5 H Urine WBC 0-3 Ur Squamous Epith Cells Many H Urine Mucus Rare 12/26/19 12/26/19 12/26/19 11:42 16:42 17:54 WBC RBC Hgb Hct MCV MCH MCHC RDW Plt Count MPV Immature Gran % (Auto) Neut % (Auto) Lymph % (Auto) [place] % (Auto) Eos % (Auto) Baso % (Auto) Lymph # (Auto) [place] # (Auto) Eos # (Auto) Baso # (Auto) Abs Immat Gran (auto) Absolute Neuts (auto) Absolute Nucleated RBC Nucleated RBC % Sodium Potassium Chloride Carbon Dioxide BUN Creatinine Estim Creat Clear Calc Estimated GFR Glucose POC Capillary Glucose 92 73 62 L Lactic Acid Calcium Total Bilirubin AST ALT Alkaline Phosphatase Total Protein Albumin Lipase Urine Color Urine Appearance Urine pH Ur Specific [place] Urine Protein Urine Glucose (UA) Urine Ketones Ur Blood (Man) Urine Nitrate Urine Bilirubin Urine Urobilinogen Leukocyte Esterase Rfl Urine RBC Urine WBC Ur Squamous Epith Cells Urine Mucus 12/26/19 18:33 WBC RBC Hgb Hct MCV MCH MCHC RDW Plt Count MPV Immature Gran % (Auto) Neut % (Auto) Lymph % (Auto) [place] % (Auto) Eos % (Auto) Baso % (Auto) Lymph # (Auto) [place] # (Auto) Eos # (Auto) Baso # (Auto) Abs Immat Gran (auto) Absolute Neuts (auto) Absolute Nucleated RBC Nucleated RBC % Sodium Potassium Chloride Carbon Dioxide BUN Creatinine Estim Creat Clear Calc
== END 2019-12-26 21:15 | disposition home or self-care (01) ==
LOC: ANHED 09:40 → ANH2MED 09:57
PROVIDERS: Admitting Provider Obstetrics & Gynecology; Emergency Provider Emergency Medicine; PCP Family Medicine; Visit Provider Obstetrics & Gynecology
DX: G89.18 Other acute postprocedural pain (principal); E10.10 Type 1 diabetes mellitus with ketoacidosis without coma; F17.210 Nicotine dependence, cigarettes, uncomplicated; E03.9 Hypothyroidism, unspecified; Z79.4 Long term (current) use of insulin
CPT/HCPCS: 36415; 74177; 80053; 81001; 83605; 83690; 85025; 96361; 96365; 96375; 96376; 99285; G0378; G0379; J0131; J1200; J2270; J2405; J2550; J7030; Q9967

== ENCOUNTER 2019-12-27 16:16 | Observation (INO) | payer OTHER, SELFPAY ==
[2019-12-27] VITALS (9 sets, daily range): BP systolic 102–122; BP diastolic 59–71; PULSE 122–137; RESP 16–26; TEMP 36.9–37.4; O2SAT 99–100; BMI 18.4
--- NOTE | ~2019-12-27 | XR_ITS ---
XR abdomen/kub 1V DATE: 12/28/2019 05:22 INDICATION: Abdominal pain. Constipation. TECHNIQUE: Portable supine AP view on 12/28/2019 at 0514 hours COMPARISON: 08/24/2019 obstructive series 12/26/2019 CT abdomen pelvis FINDINGS: Surgical clips, right upper quadrant, consistent with cholecystectomy. The psoas shadows are intact. No visceromegaly is evident. No significant abnormal calcification. There is a moderately prominent of fecal material in the colon. No bowel obstruction is detected. The lung bases appear clear. Included skeletal structures are unremarkable. IMPRESSION: Moderately prominent amount of fecal material within the colon; no evidence of bowel obst ruction Reviewed, dictated and finalized at Location A. Reviewed, dictated and finalized at location A. IMPRESSION: Moderately prominent amount of fecal material within the colon; no evidence of bowel obstruction
[2019-12-27] MEDS: PROMETHAZINE HCL 25 MG/ML AMPUL 12.5 MG IV PUSH ×2 (17:00→18:44)
[2019-12-27] MEDS: SODIUM CHLORIDE 0.9% IV 1,000 ML 999 ML IV CONT ×2 (17:00→17:54)
[2019-12-27 17:14] LABS: Basophils Absolute Auto 0.1 K/mm3 (0.0-0.1); Basophils Percent Auto 0.8 % (0.2-1.2); Eosinophils Absolute Auto 0.1 K/mm3 (0-0.3); Eosinophils Percent Auto 0.6 % (0-4.4); Hematocrit 39.9 % (37.0-47.0); Hemoglobin 13.3 g/dL (12.0-15.0); Immature Granulocyte Absolute 0.02 K/mm3 (0.00-0.031); Immature Granulocyte Percent A 0.2 % (0-0.5); Lymphocytes Absolute Auto 1.87 K/mm3 (0.9-3.2); Lymphocytes Percent Auto 20.2 % (18.3-44.2); Mean Corpuscular HGB Conc 33.3 g/dl (32-36); Mean Corpuscular Hemoglobin 30.5 pg (26-34); Mean Corpuscular Volume 91.5 fl (80-100); Mean Platelet Volume 10.2 fl (7.4-10.4); Monocytes Absolute Auto 0.6 K/mm3 (0.1-0.6); Monocytes Percent Auto 6.3 % (2.6-8.5); Neutrophils Absolute Auto 6.7 K/mm3 (1.3-6.7); Neutrophils Percent Auto 71.9 % (45.5-73.1); Platelet Count Result 273 k/mm3 (150-375); Red Blood Count 4.36 M/mm3 (4.2-5.4); Red Cell Distribution Width 12.2 % (11.5-14.5); White Blood Count 9.3 K/mm3 (4.5-10.0)
--- NOTE | 2019-12-27 17:22 | ED.ABDPAIN ---
HPI - Abdominal Pain General Chief Complaint: Abdominal Pain Stated Complaint: POST OP PAIN Time Seen by Provider: 12/27/19 16:33 History of Present Illness HPI narrative: Patient is a 29-year-old female who presents ER with abdominal pain as well as nausea and vomiting. Patient recently underwent laparoscopic hysterectomy by Dr. Worley. She was seen in the ER yesterday admitted to the hospital for intractable pain nausea and vomiting however she decided to leave AGAINST MEDICAL ADVICE because she went to be near her daughter. Patient requires an insulin pump for type 1 diabetes. Patient persistently retching upon arrival to ER. Reports vomit has been dark in color over the last 24 hours. No dark black stools. Reports she has not had a bowel movement since prior to her surgery. CT scan from yesterday shows no acute intra-abdominal pathology. Related Data Home Medications Medication Instructions Recorded Confirmed insulin lispro [Admelog U-100 3 unit CONTINUOUS SUBCUTANEOUS 07/25/19 12/26/19 Insulin lispro] INFUSION DIRECTED levothyroxine 50 mcg PO DAILY 12/16/19 12/26/19 loratadine 10 mg PO QAM PRN 12/16/19 12/26/19 tramadol 50 mg PO Q8H PRN 12/16/19 12/26/19 Allergies Allergy/AdvReac Type Severity Reaction Status Date / Time Latex, Natural Rubber Allergy Severe Hives Verified 12/27/19 16:40 peanut oil Allergy Severe Difficulty Verified 12/27/19 16:40 Breathing metoclopramide [From Reglan] AdvReac Mild Anxiety Verified 12/27/19 16:40 Review of Systems Review of Systems: All systems reviewed & are unremarkable except as noted in HPI and below Constitutional: Constitutional: Denies chills, Reports fatigue, Denies fever(s) and Reports weakness ENT: Denies nasal congestion and Denies sore throat Respiratory: Respiratory: Denies cough, Denies dyspnea and Denies wheezing Gastrointestinal: Gastrointestinal: Reports abdominal pain, Reports constipation, Reports nausea and Reports vomiting PMF Family History Family History (Updated 12/26/19 @ 10:58 by Kajal Banks RN) Mother Lupus (systemic lupus erythematosus) Scleroderma Diabetes mellitus Heart disease Renal disease Cerebrovascular accident History of blood clots Grandparent Hypertension Social History Social History Social History: The patient lives in [place], [place] with her 8-year-old daughter. 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 She tells me she smokes 7-8 cigarettes a day for the last 10 years. She reports occasional marijuana use. She denies alcohol use. Her PCP is Dr. Rodney Grier. She designates her mother, Olya Rodriguez, as her surrogate decision maker and she is full code status. Smoking packs per day: 0.5 Smoking cigarettes per day: 10.0 Years smoked: 13 Smoking pack-years: 6.50 Smoking status: Current every day smoker Tobacco type: cigarettes Second hand tobacco smoke exposure: Yes (significant other smokes daily) Alcohol intake: current Drinks per week: 1 Substance use: current Substance use type: marijuana Last use: Patient reports last use of Marijuana about 3 weeks ago Gender identity (if verbalized by the patient): Female Spiritual care concerns: No Agree to blood products: Yes Exam Narrative: Exam Narrative: GENERAL: Uncomfortable-appearing, well-nourished, and in mild distress. HEAD: Normocephalic, atraumatic. ENT: Mucous membranes moist. Breath smells like ketones. NECK: Supple. CHEST: Clear to auscultation. No respiratory distress. HEART: Tachycardic and regular. Normal peripheral pulses. ABDOMEN: Soft, mild diffuse tenderness, well-healing port sites, nondistended. EXTREMITIES: Normal range of motion. No edema. SKIN: Warm, dry, no rash. NEURO: Alert and oriented x3. PSYCH: Normal mood and affect. Course Course Emergency Course: Admit to the hospitalist service, ICU cont
[2019-12-27 17:23] LABS: Alveolar/Arterial O2 Gradient 6.6 mmHg; Base Excess ABG -21.4 mEq/l (+/-2.0); Carboxyhemoglobin 0.5 % THb (0-2.0); Fractional Inspired Oxygen 21 %; HCO3 ABG 6.5 mEq/l (22.0-26.0); Methemoglobin ABG 0.4 %THb (0-1.5); Oxygen Content ABG 16.8 %vol (16.0-22.0); Oxygen Saturation ABG 96.9 % (95.0-100.0); Oxyhemoglobin 96.1 % THb (90.0-100.0); PO2 ABG 117.7 mmHg (80.0-100.0); Total Hemoglobin 12.3 g/dL (12.0-18.0)
[2019-12-27 17:26] LABS: Device ROOM AIR; Modified Allen's Test Pass; PCO2 ABG 21.2 mmHg (35.0-45.0); Site Drawn RIGHT RADIAL; pH ABG 7.102 (7.350-7.450)
[2019-12-27] MEDS: PANTOPRAZOLE SODIUM IV 40 MG VIAL IV PUSH (17:27)
[2019-12-27 17:33] LABS: Alanine Aminotransferase 14 U/L (4-35); Albumin Level 4.4 g/dL (3.5-5.1); Alkaline Phosphatase 69 U/L (38-126); Aspartate Amino Transferase 21 U/L (14-36); Bilirubin,Total 0.6 mg/dL (0.2-1.3); Blood Urea Nitrogen 12 mg/dL (7-17); Calcium 8.9 mg/dL (8.4-10.2); Carbon Dioxide 7 mmol/L (22-30); Chloride 104 mmol/L (98-107); Estimated CRCL calculation 81 ml/min; Estimated Glomerular Filt Rate > 60; Glucose 415 mg/dL (65-105); Lipase 38 U/L (23-300); Sodium 133 mmol/L (137-145)
[2019-12-27 18:40] LABS: Add Urine Microscopic? YES; Appearance Urine Clear (Clear); Bilirubin Urine Negative (Negative); Blood Urine Negative (Negative); Color Urine Straw (Yellow); Glucose Urine UA 3+ mg/dL (Negative); Ketones Urine 2+ mg/dL (Negative); Leukocyte Esterase Ur Negative LEU/UL (Negative); Mucus Urine Rare /lpf; Nitrate Urine Negative (Negative); Protein Urine 1+ mg/dL (Negative); RBC Urine 0-2 /hpf (0-2); Specific Grav Ur 1.017 (1.001-1.035); Squamous Epithelial Cell Urine Rare /hpf (Few); Urobilinogen Urine Negative mg/dL (<2.0); WBC Urine 0-3 /hpf
[2019-12-27 19:03] LABS: Amphetamine Screen Urine Negative (Negative); Barbiturate Screen Urine Negative (Negative); Benzodiazepines Screen Urine Negative (Negative); Cannabinoid Screen Urine Positive (Negative); Cocaine Screen Urine Negative (Negative); Methadone Screen Urine Negative (Negative); Opiate Screen Urine Positive (Negative); Phencyclidine Screen Urine Negative (Negative)
[2019-12-27] MEDS: INSULIN HUMAN REGULAR (*BKC) 100 UNITS/ML IV PUSH (19:03)
[2019-12-27] MEDS: INSULIN HUMAN REGULAR (*BKC) 100 UNITS in SODIUM CHLORIDE 0.9% IV 99 ML 7.1 UNITS IV CONT (19:04)
[2019-12-27 19:12] LABS: Glucose Point of Care 361 (65-105)
[2019-12-27 19:50] LABS: Glucose Point of Care 350 (65-105)
[2019-12-27] MEDS: SODIUM CHLORIDE 0.9% IV 1,000 ML 125 ML IV CONT (19:58)
[2019-12-27] MEDS: ONDANSETRON INJ 4 MG/2 ML VIAL IV PUSH (20:19)
--- NOTE | 2019-12-27 20:31 | ADMGEN ---
This patient, Steph Camacho, was admitted to Intensive Care Unit-10. Patient/family oriented to hospital policies and general routines including ID bracelet, bed and alarms, visiting hours, pain management, procedures, bathroom and other care routines, personal items, smoking policy, room service/diet, and visiting hours. Valuables list has been completed. Information on how to activate the Rapid Response Team has been discussed. Patient/Family are encouraged to report perceived risks to care and to ask questions if they do not understand what they are told or what they should do.
[2019-12-27 20:53] LABS: Glucose Point of Care 241 (65-105)
[2019-12-27] MEDS: KCL 20 MEQ/D5/0.45% SOD CHL 1,000 ML 150 ML IV CONT (20:57)
[2019-12-27 21:24] LABS: Hemoglobin A1C 9.4 % (<5.7)
[2019-12-27 21:26] LABS: Blood Urea Nitrogen 12 mg/dL (7-17); Carbon Dioxide < 5 mmol/L (22-30); Chloride 111 mmol/L (98-107); Estimated CRCL calculation 80 ml/min; Estimated Glomerular Filt Rate > 60; Glucose 211 mg/dL (65-105); Potassium 4.5 mmol/L (3.4-5.0); Sodium 136 mmol/L (137-145)
[2019-12-27 21:27] LABS: Magnesium 1.5 mg/dL (1.6-2.3); Phosphorus 2.8 mg/dL (2.5-4.5)
[2019-12-27 21:35] LABS: Glucose Point of Care 209 (65-105)
[2019-12-27] MEDS: KETOROLAC 30 MG/ML VIAL (*BKC) IV PUSH (22:08)
[2019-12-27] MEDS: MAGNESIUM SULF 1 GM/D5W 100 ML 1 GM/100 ML BAG IVPB (22:11)
--- NOTE | 2019-12-27 22:20 | PM.IMHP ---
H&P: HPI History of Present Illness Chief complaint: dka Narrative: Steph Camacho is a 29 year old female who has a history of diabetes type 1. The patient stated that she had a hysterectomy by Dr. san this past Sunday. The patient has been having a lot of abdominal discomfort. She stated that she was sent home on [place] and that did seem to help. She stated that she was nauseated and not eating very well and her blood sugars were low so she took her insulin pump off. The patient was here yesterday for complaints of abdominal pain with nausea vomiting she was to be admitted however the patient's son out AMA due to family problems. Her CT from yesterday shows small volume of pelvic ascites. 2.0 cm hyperdense liver mass without change from 07/28/2019 likely hemangioma orfocal nodule hyperplasia. Blood sugar when she came to the emergency room today was 361 when it was checked last night it was only 153. Arterial blood gases pH 7.10 to CO2 21.2 PO2 was 117.7 bicarb 6.5. Magnesium was 1.5 I did replace that. DKA protocol was started and the patient was admitted to ICU. To be 9.4. She was given IV fluids in the emergency room as well as Phenergan IV. She states that the Zofran does not help her. Patient is complaining of some abdominal discomfort that she rates 7-10. Date of service 12/27/2019 Review of Systems Review of Systems: Narrative: No fever no chills no diarrhea. All systems reviewed & are unremarkable except as noted in HPI and below Constitutional: Constitutional: Reports as per HPI and Reports no additional constitutional complaints Eyes: Eyes: Reports as per HPI and Reports no additional eye complaints ENT: Reports system reviewed and no additional complaints, except as documented and Reports Normal hearing present Cardiovascular: Cardiovascular: Reports no additional cardiovascular complaints Respiratory: Respiratory: Reports no additional respiratory complaints and Reports no additional respiratory complaints Gastrointestinal: Gastrointestinal: Reports as per HPI and Reports no additional gastrointestinal complaints Musculoskeletal: Musculoskeletal: Reports no additional musculoskeletal complaints Integumentary/Breasts: Skin/Breast: Reports system reviewed and no additional complaints, except as docu and Reports as per HPI Neurologic: Reports system reviewed and no additional complaints, except as documented, Reports as per HPI and Reports Normal hearing present Psychiatric: Psychiatric: Reports no additional psychiatric complaints and Reports as per HPI Endocrine: Endocrine: Reports no additional endocrine complaints Hematologic/Lymphatic: Hematologic/Lymphatic: Reports no additional hematologic/lymphatic complaints Allergic/Immunologic: Allergic/Immunologic: Reports no additional allergic/immunologic complaints [facility] Past Medical History Medical History (Updated 12/27/19 @ 22:41 by Radha Owen NP) Acute cervicitis Dysmenorrhea Endometritis GERD (gastroesophageal reflux disease) History of seizure As a child. History of UTI Hypothyroidism Ovarian cyst Type 1 diabetes mellitus Surgical History Surgical History (Updated 12/27/19 @ 22:28 by Radha Owen NP) H/O: hysterectomy 12/23/[address] san Status post cholecystectomy Status post endometrial ablation 08/06/19 Dr San. Status post ovarian cystectomy 08/06/19 Dr San. Status post tubal ligation 08/06/19 Dr San. Family History Family History Mother Lupus (systemic lupus erythematosus) Scleroderma Diabetes mellitus Heart disease Renal disease Cerebrovascular accident History of blood clots Grandparent Hypertension Father CAD (coronary artery disease) Social History Social History Social History: The patient lives in [place], [place] with her 8-year-old daughter. She is a [id number]
[2019-12-27] MEDS: PROMETHAZINE HCL 12.5 MG SUPP.RECT RECTAL (22:42)
[2019-12-27 22:49] LABS: Glucose Point of Care 190 (65-105)
[2019-12-27 23:45] LABS: Glucose Point of Care 172 (65-105)
[2019-12-28] VITALS (14 sets, daily range): BP systolic 92–116; BP diastolic 53–71; PULSE 92–118; RESP 14–19; TEMP 36.7–37.4; O2SAT 99–100
[2019-12-28 00:40] LABS: Glucose Point of Care 154 (65-105)
[2019-12-28 01:17] LABS: Blood Urea Nitrogen 10 mg/dL (7-17); Calcium 8.4 mg/dL (8.4-10.2); Carbon Dioxide 11 mmol/L (22-30); Chloride 112 mmol/L (98-107); Estimated CRCL calculation 80 ml/min; Estimated Glomerular Filt Rate > 60; Glucose 154 mg/dL (65-105); Potassium 4.5 mmol/L (3.4-5.0); Sodium 135 mmol/L (137-145)
[2019-12-28 01:50] LABS: Glucose Point of Care 163 (65-105)
[2019-12-28 02:59] LABS: Glucose Point of Care 102 (65-105)
[2019-12-28] MEDS: KCL 20 MEQ/D5/0.45% SOD CHL 1,000 ML 150 ML IV CONT ×3 (03:49→17:31)
[2019-12-28 03:54] LABS: Glucose Point of Care 97 (65-105)
[2019-12-28 04:56] LABS: Basophils Absolute Auto 0.1 K/mm3 (0.0-0.1); Basophils Percent Auto 0.5 % (0.2-1.2); Eosinophils Percent Auto 0.3 % (0-4.4); Hematocrit 34.3 % (37.0-47.0); Hemoglobin 11.6 g/dL (12.0-15.0); Immature Granulocyte Absolute 0.01 K/mm3 (0.00-0.031); Immature Granulocyte Percent A 0.1 % (0-0.5); Lymphocytes Absolute Auto 1.84 K/mm3 (0.9-3.2); Lymphocytes Percent Auto 19.7 % (18.3-44.2); Mean Corpuscular HGB Conc 33.8 g/dl (32-36); Mean Corpuscular Hemoglobin 30.6 pg (26-34); Mean Corpuscular Volume 90.5 fl (80-100); Mean Platelet Volume 9.6 fl (7.4-10.4); Monocytes Absolute Auto 0.8 K/mm3 (0.1-0.6); Monocytes Percent Auto 8.1 % (2.6-8.5); Neutrophils Absolute Auto 6.7 K/mm3 (1.3-6.7); Neutrophils Percent Auto 71.3 % (45.5-73.1); Platelet Count Result 258 k/mm3 (150-375); Red Blood Count 3.79 M/mm3 (4.2-5.4); Red Cell Distribution Width 12.2 % (11.5-14.5); White Blood Count 9.4 K/mm3 (4.5-10.0)
[2019-12-28] MEDS: SODIUM CHLORIDE 0.9% IV 500 ML 999 ML IV CONT (04:58)
[2019-12-28 05:05] LABS: Glucose Point of Care 105 (65-105)
[2019-12-28 05:08] LABS: Blood Urea Nitrogen 9 mg/dL (7-17); Calcium 8.4 mg/dL (8.4-10.2); Carbon Dioxide 14 mmol/L (22-30); Chloride 111 mmol/L (98-107); Estimated CRCL calculation 93 ml/min; Estimated Glomerular Filt Rate > 60; Glucose 102 mg/dL (65-105); Potassium 4.6 mmol/L (3.4-5.0); Sodium 134 mmol/L (137-145)
[2019-12-28 05:10] LABS: CRP < 0.5 mg/dL (<1.0); Magnesium 1.9 mg/dL (1.6-2.3)
[2019-12-28 05:54] LABS: Glucose Point of Care 71 (65-105)
[2019-12-28 05:59] LABS: Thyroid Stimulating Hormone Reflex 0.912 uIU/mL (0.465-4.68)
[2019-12-28] MEDS: BISACODYL 10 MG SUPPOSITORY RECTAL (06:41)
[2019-12-28 06:52] LABS: Glucose Point of Care 106 (65-105)
[2019-12-28] MEDS: ONDANSETRON INJ 4 MG/2 ML VIAL IV PUSH ×4 (07:54→21:09)
[2019-12-28 08:05] LABS: Glucose Point of Care 97 (65-105)
--- NOTE | 2019-12-28 08:23 | WPDCNINT ---
Assessment and Plan Assessment and plan (1) DKA, type 1: Code(s): E10.10 - Type 1 diabetes mellitus with ketoacidosis without coma Status: Acute Assessment and Plan: Continue insulin drip and IV fluid resuscitation. She is currently on D5 half-normal saline. Her anion gap is down to 9 now but her bicarb is still 14. Will draw beta hydroxybutyric acid with the next set of labs which is scheduled for around 9 a.m.. If she continued to be nauseous and unable to tolerate anything p.o. then she may end up staying on insulin drip along with IV fluid until she is able to take anything p.o.. If she is able to take anything p.o. and once her anion gap closed, beta hydroxybutyric acid is within normal range and bicarb is within acceptable range then she can be transitioned to basal bolus insulin. She may need Endocrine consult/clinical unit educator consult to resume her insulin pump at the time of discharge. (2) Type 1 diabetes mellitus: Qualifiers: Diabetes mellitus complication status: without complication Qualified Code(s): E10.9 - Type 1 diabetes mellitus without complications Code(s): E10.9 - Type 1 diabetes mellitus without complications Status: Acute Assessment and Plan: She is currently on insulin drip and IV fluid. Continue it until her anion gap closed, bicarb is within acceptable range, beta hydroxybutyric acid is within acceptable range and she is able to tolerate p.o. diet. She will be transitioned to basal bolus insulin once her anion gap closed. She would need to be started on insulin pump at the time of discharge. Can consider endocrine consult/clinical unit educator consult for the same purpose. (3) Post-operative pain: Code(s): G89.18 - Other acute postprocedural pain Status: Acute Assessment and Plan: She had hysterectomy on 12/[address] Worley. Habitat Conservation Planner service has been consulted for their inputs. Continue pain control with Dilaudid. She did not have adequate pain control with fentanyl before which will be stopped. Her clinical presentation and abdominal imaging is not suggestive of any infectious process. Hold of antibiotics for now until metallurgist process recommendations. (4) Hypothyroidism: Code(s): E03.9 - Hypothyroidism, unspecified Status: Acute Assessment and Plan: Continue levothyroxine. Additional Plan DVT prophylaxis with subcu heparin GI prophylaxis not indicated Full code She will be downgraded to floor status later today when she is off insulin drip. Retail Client Solutions Analyst Consult Note Consult date: 12/28/19 Time Seen: 11:43 HPI: Steph Camacho is a 29 year old female with past medical history of type 1 diabetes mellitus and on insulin pump. She had hysterectomy performed on 12/22. She has been having significant abdominal pain/discomfort since then and has taking Williams. She was nauseous as well and was not eating well. She had been checking her blood sugar which are staying low. She has stopped her insulin pump because of her blood sugars on the lower side. She was evaluated in the emergency department yesterday with abdominal pain and nausea and vomiting. CT scan done yesterday showed small volume of pelvic ascites with 2 cm hyperdense liver mass with no change from prior CT scan. She was offered admission but she signed out against medical advice. She came in again to the emergency department yesterday with same symptoms. She was found to have DKA with pH of 7.1 bicarb of 6.5. She was started on insulin drip and IV fluids. Her labs are improving. She is still symptomatic with significant nausea and abdominal pain. Review of Systems Review of Systems: Narrative: A comprehensive review of systems has been reviewed with the patient and most of the symptoms are negative except the one's mentioned above in HPI. [facility] Past Medical History Medical History Acute cerviciti
[2019-12-28] MEDS: HYDROMORPHONE HCL 1 MG/ML INJ 0.5 MG IV PUSH ×3 (08:36→18:09)
[2019-12-28] MEDS: LACTULOSE 20 GM/30 ML UDC PO (09:13)
[2019-12-28 09:17] LABS: Glucose Point of Care 102 (65-105)
[2019-12-28 10:16] LABS: Glucose Point of Care 117 (65-105)
[2019-12-28 11:07] LABS: Blood Urea Nitrogen 8 mg/dL (7-17); Calcium 8.1 mg/dL (8.4-10.2); Carbon Dioxide 14 mmol/L (22-30); Chloride 111 mmol/L (98-107); Estimated CRCL calculation 109 ml/min; Estimated Glomerular Filt Rate > 60; Glucose 124 mg/dL (65-105); Potassium 4.1 mmol/L (3.4-5.0); Sodium 133 mmol/L (137-145)
[2019-12-28 11:20] LABS: Glucose Point of Care 110 (65-105)
[2019-12-28 11:40] LABS: Lactic Acid < 0.5 mmol/L (0.7-2.1)
[2019-12-28 12:15] LABS: Glucose Point of Care 105 (65-105)
--- NOTE | 2019-12-28 13:26 | PM.GYNPNOP ---
TRAVELING CLERK - A/P Assessment and plan (1) Low magnesium level: Code(s): R79.0 - Abnormal level of blood mineral Status: Acute (2) DKA, type 1: Code(s): E10.10 - Type 1 diabetes mellitus with ketoacidosis without coma Status: Acute (3) Post-operative pain: Code(s): G89.18 - Other acute postprocedural pain Status: Acute (4) Post-op pain: Code(s): G89.18 - Other acute postprocedural pain Status: Acute Assessment and Plan: Moderate abdominal pain - likely postop and severe constipation associated, medicine is treating both pain and constipation, she needs treatment for surgical menopause - estradiol patch. Time Spent With Patient Time: Total time spent is greater than 50% in coordination of care (as documented) at patient's floor/unit and/or counseling patient: Time with patient: 15 - 25 minutes TRAVELING CLERK- PN:[place] [facility] Subjective Date/time seen: 12/28/19 13:26 Interval history: Improved nausea and vomitting. reports abdominal pain - crampy, sharp, moderate Subjective: patient reports feeling better Exam Const: General: healthy appearing, comfortable and no acute distress Resp: Auscultation: clear to auscultation bilaterally, no rales, no rhonchi and no wheezes Cardio: Rate: regular rate Heart sounds: no click, no murmurs and no rubs GI: Inspection: non-distended Auscultation: normal bowel sounds Other: incisions are CDI, no erythema or tenderness Extrem: General: normal to inspection, no pedal edema and no calf tenderness TRAVELING CLERK - PN: Obj Data Vital Signs Vital Signs: Vital Signs - 24 hr 12/27/19 16:18 12/27/19 17:00 12/27/19 17:30 Temperature 98.4 F Pulse Rate 123 H 122 H 137 H Respiratory Rate 16 22 H 24 H Blood Pressure 102/71 107/71 115/69 Pulse Oximetry 99 100 100 12/27/19 18:00 12/27/19 18:30 12/27/19 19:00 Temperature Pulse Rate 135 H 131 H 132 H Respiratory Rate 22 H 26 H 22 H Blood Pressure 122/59 L 119/62 110/62 Pulse Oximetry 100 100 100 12/27/19 19:25 12/27/19 20:00 12/27/19 22:00 Temperature 99.3 F Pulse Rate 130 H 137 H 128 H Respiratory Rate 22 H 24 H 22 H Blood Pressure 109/61 117/63 102/63 Pulse Oximetry 100 100 99 12/28/19 00:00 12/28/19 02:00 12/28/19 04:00 Temperature 98.5 F 98.7 F Pulse Rate 116 H 105 H 97 Respiratory Rate 17 19 15 Blood Pressure 101/58 L 101/61 99/56 L Pulse Oximetry 100 100 100 12/28/19 06:00 12/28/19 08:00 12/28/19 10:00 Temperature 98.2 F Pulse Rate 100 111 H 98 Respiratory Rate 16 16 17 Blood Pressure 100/66 92/53 L 95/65 L Pulse Oximetry 99 100 100 12/28/19 12:00 Temperature Pulse Rate 98 Respiratory Rate 15 Blood Pressure 101/64 Pulse Oximetry 100 Intake/Output Intake/Output: Intake & Output 12/25/19 12/26/19 12/27/19 12/28/19 23:59 23:59 23:59 23:59 Intake Total 2200 2100 Output Total 700 Balance 2200 1400 Meds/Results Medications: Active Medications Generic Name Dose Route Start Last Admin Trade Name Freq PRN Reason Stop Dose Admin Bisacodyl 10 mg 12/27/19 22:16 12/28/19 06:41 Dulcolax Suppository RECTAL 10 mg QAM PRN Administration Constipation Dextrose 12.5 gm 12/27/19 18:24 Dextrose 50% Syringe IV PUSH PRN PRN Hypoglycemia Protocol Glucagon 1 mg 12/27/19 18:24 Glucagon For Inj IM PRN PRN Hypoglycemia Protocol Glucose 15 gm 12/27/19 18:24 Glutose 15 PO PRN PRN Hypoglycemia Protocol Hydrocortisone 1 applic 12/27/19 22:20 Hydrocortisone 1% Cream TOPICAL Q4H PRN itching Hydromorphone HCl 0.5 mg 12/28/19 07:22 12/28/19 12:27 Dilaudid Inj IV PUSH 0.5 mg Q3H PRN Administration Pain Rated 7-10 Hydromorphone HCl 0.25 mg 12/28/19 07:22 Dilaudid Inj IV PUSH Q3H PRN Pain Rated 4-6 Dextrose 1,000 mls @ 100 mls/hr 12/27/19 18:24 Dextrose 5% 1,000 Ml IVPB PRN PRN Hypoglycemia Protocol Insulin Asp
[2019-12-28 13:39] LABS: Glucose Point of Care 98 (65-105)
[2019-12-28 14:47] LABS: Glucose Point of Care 105 (65-105)
[2019-12-28] MEDS: ESTRADIOL 7 DAY 0.1 MG PATCH TRANSDERM (15:52)
[2019-12-28 15:56] LABS: Blood Urea Nitrogen 6 mg/dL (7-17); Calcium 8.1 mg/dL (8.4-10.2); Carbon Dioxide 17 mmol/L (22-30); Chloride 109 mmol/L (98-107); Estimated CRCL calculation 109 ml/min; Estimated Glomerular Filt Rate > 60; Glucose 108 mg/dL (65-105); Potassium 4.2 mmol/L (3.4-5.0); Sodium 133 mmol/L (137-145)
[2019-12-28 16:01] LABS: Glucose Point of Care 102 (65-105)
--- NOTE | 2019-12-28 16:13 | PM.IMPN ---
Progress Note: A&P Assessment and Plan (1) DKA, type 1: Code(s): E10.10 - Type 1 diabetes mellitus with ketoacidosis without coma Status: Acute Assessment and Plan: Hemoglobin A1c is 9.4. Her blood sugar was 350 when she came in to ER. Patient had taken her insulin pump off due to low readings. Patient is on DKA protocol with BMPs every 4 hours. . She is on insulin drip at this time. And would like to continue until CO2 rises and beta hydroxybutyrate decrease as per chicken stuffer planned. We will cover her with Lantus when she gets off of the drip. (2) Hypothyroidism: Code(s): E03.9 - Hypothyroidism, unspecified Status: Acute Assessment and Plan: Holding her levothyroxine at this time. Will check her thyroid levels. She is NPO at this time. (3) Post-operative pain: Code(s): G89.18 - Other acute postprocedural pain Status: Acute Assessment and Plan: Dr. san has seen the patient had agree with him the lot of her abdominal complaints are from the DKA and constipation. She stated she has had this postop pain since then. Try to avoid narcotics if possible which will only aggravate the constipation. Will try a Dulcolax suppository and transitioned MiraLax when she is able to take orally. She stated she was taking Colace. She did have a EGD and colonoscope exam at the end of November which were unrevealing CT scan from yesterday which shows postop changes. MPRESSION: 1. Small volume of pelvic ascites. 2. 2.0 cm hyperdense liver mass without change from 07/28/2019, likely a hemangioma or focal nodular hyperplasia. Pain could also be due to her gastroparesis. (4) Low magnesium level: Code(s): R79.0 - Abnormal level of blood mineral Status: Acute Assessment and Plan: Replace as necessary. Recheck in a.m. with phosphorus level Subjective Date/time seen: 12/28/19 16:13 Interval history: Date of visit 12/27. 29-year-old white female status post laparoscopic hysterectomy 12/22 admitted in diabetic ketoacidosis. She had taken her insulin pump off off because her sugars running low and continued to have more abdominal pain and nausea. She presented to the emergency room with abdominal discomfort found to be acidotic and diabetic ketoacidosis and transferred to the ICU for insulin drip. Presently Improved nausea and vomitting. But still reports abdominal pain - crampy, sharp, moderate Exam Narrative: Exam Narrative: Blood pressure 102/70 pulse is 94 saturating 100% on room air respirations 14 per minute afebrile Neck supple no adenopathy Lungs clear CV regular rate rhythm no murmurs Abdomen soft bowel sounds decreased no rebound or guarding Extremities without edema distal pulses are 2+ Neuro alert in some distress no focal deficits Objective Data Vital Signs Vital Signs: Vital Signs - 24 hr 12/27/19 16:18 12/27/19 17:00 12/27/19 17:30 Temperature 36.9 C Pulse Rate 123 H 122 H 137 H Respiratory Rate 16 22 H 24 H Blood Pressure 102/71 107/71 115/69 Pulse Oximetry 99 100 100 12/27/19 18:00 12/27/19 18:30 12/27/19 19:00 Temperature Pulse Rate 135 H 131 H 132 H Respiratory Rate 22 H 26 H 22 H Blood Pressure 122/59 L 119/62 110/62 Pulse Oximetry 100 100 100 12/27/19 19:25 12/27/19 20:00 12/27/19 22:00 Temperature 37.4 C Pulse Rate 130 H 137 H 128 H Respiratory Rate 22 H 24 H 22 H Blood Pressure 109/61 117/63 102/63 Pulse Oximetry 100 100 99 12/28/19 00:00 12/28/19 02:00 12/28/19 04:00 Temperature 36.9 C 37.1 C Pulse Rate 116 H 105 H 97 Respiratory Rate 17 19 15 Blood Pressure 101/58 L 101/61 99/56 L Pulse Oximetry 100 100 100 12/28/19 06:00 12/28/19 08:00 12/28/19 10:00 Temperature 36.8 C Pulse Rate 100 111 H 98 Respiratory Rate 16 16 17 Blood Pressure 100/66 92/53 L 95/65 L Pulse Oximetry 99 100 100 12/28/19 12:00 12/28/19 14:00 Temperature Pulse Rate 98 94 Respiratory Rate 15 15 Blood Pressure 101/64 102/71 Pulse
[2019-12-28 16:19] LABS: Beta-Hydroxybutyrate/Acetoacetate 2.46 mmol/L (0.02-0.27)
[2019-12-28 17:16] LABS: Glucose Point of Care 102 (65-105)
--- NOTE | 2019-12-28 17:56 | PC.NURSE ---
Dr. Almodovar notified of 1500 BMP/BetaHydroxy results. Will continue insulin drip per dka protocol. Patient tolerating well. Soap suds enema given, patient tolerated well. No bowel movement noted at this time, Will continue to monitor.
[2019-12-28 18:18] LABS: Glucose Point of Care 122 (65-105)
[2019-12-28 19:16] LABS: Glucose Point of Care 114 (65-105)
[2019-12-28 19:27] LABS: Blood Urea Nitrogen 4 mg/dL (7-17); Carbon Dioxide 16 mmol/L (22-30); Chloride 107 mmol/L (98-107); Estimated CRCL calculation 109 ml/min; Estimated Glomerular Filt Rate > 60; Glucose 126 mg/dL (65-105); Potassium 3.7 mmol/L (3.4-5.0); Sodium 133 mmol/L (137-145)
[2019-12-28 19:31] LABS: Beta-Hydroxybutyrate/Acetoacetate 2.74 mmol/L (0.02-0.27)
[2019-12-28 20:14] LABS: Glucose Point of Care 111 (65-105)
[2019-12-28 21:07] LABS: Glucose Point of Care 133 (65-105)
[2019-12-28] MEDS: HYDROMORPHONE HCL 1 MG/ML INJ 0.25 MG IV PUSH (21:09)
[2019-12-28] MEDS: polyethylene glycoL 3350 17 GM POWD.PACK PO (21:11)
[2019-12-28] MEDS: PROMETHAZINE HCL 12.5 MG SUPP.RECT RECTAL (21:17)
[2019-12-28 22:09] LABS: Glucose Point of Care 129 (65-105)
[2019-12-28] MEDS: KCL 20 MEQ/D5/0.45% SOD CHL 1,000 ML 250 ML IV CONT (23:02)
--- NOTE | 2019-12-28 23:22 | PC.NURSE ---
In to patient's room at 12/28/2019 at 2210 for capillary blood glucose reading and insulin titration. Patient states she is hungry and would like to eat now. States she has not eaten in 2 days. Discussed DKA protocols and that eating is contraindicatd in nauseated patients. I had just given her a phenergan suppository and zofran 2 hours prior for nausea and patient admitted she could not finish her miralax because I'll throw up. Patient states she would like to sign out AMA. Dr. Weinberg and Dr. Almodovar informed. Paperwork provided, but patient found to be on her cell phone at time papers were presented and refused to speak this nurse at that time. States I know my body and if you are giving me antibiotics, my sugar is just going to spike.
[2019-12-28 23:30] LABS: Glucose Point of Care 134 (65-105)
--- NOTE | 2019-12-28 23:37 | PC.NURSE ---
Dr Almodovar called on 12/28/2019 at 2034 with updated lab results. Notified of decreasing CO2 and increasing beta hydroxy. New orders received. Patient encouraged to try miralax due this evening due to significant constipation.
[2019-12-28 23:44] LABS: Blood Urea Nitrogen 2 mg/dL (7-17); Calcium 8.2 mg/dL (8.4-10.2); Carbon Dioxide 18 mmol/L (22-30); Chloride 107 mmol/L (98-107); Estimated CRCL calculation 93 ml/min; Estimated Glomerular Filt Rate > 60; Glucose 144 mg/dL (65-105); Potassium 3.5 mmol/L (3.4-5.0); Sodium 134 mmol/L (137-145)
[2019-12-29] VITALS: BP 124/76; PULSE 101; RESP 14; O2SAT 100
[2019-12-29 00:17] LABS: Glucose Point of Care 135 (65-105)
--- NOTE | 2019-12-29 01:11 | PC.NURSE ---
In to take patient's glucose. Patient noted to be pulling off electrodes. States Please take out my IV's I'm going home. Dr. Worley will fix this. Patient encouraged to stay. Educated on rebound hyperglycemia. Patient encouraged to return if glucose increases above 250 mg/dl or becomes unmanageable. Encouraged to see PCP in am. Patient's IV's removed with catheter tips intact. Gauze dressings applied and secured with tape. Patient belongings list reviewed and signed. Patient ambulatory out. Gait steady. No shortness of breath observed.
--- NOTE | 2019-12-29 01:44 | PC.NURSE ---
Patient requested AMA paperwork on 12/28/[address] Almodovar called. Patient offered half a turkey sandwich per Dr. Almodovar order. Patient refused. States My anxiety is just too high right now. Offered lorazepam. Patient began talking on cell phone. Capillary blood glucose obtained and insulin drip adjusted accordingly.
== END 2019-12-29 01:10 | disposition left against medical advice (07) ==
LOC: ANHED 19:07 → ANHICU 19:15
PROVIDERS: Family Medicine; Internal Medicine Critical Care Medicine; Nurse Practitioner; Admitting Provider Internal Medicine; Emergency Provider Emergency Medicine; PCP Family Medicine; Visit Provider Internal Medicine
DX: E10.10 Type 1 diabetes mellitus with ketoacidosis without coma (principal); E03.9 Hypothyroidism, unspecified; K59.00 Constipation, unspecified; G89.18 Other acute postprocedural pain; Z90.710 Acquired absence of both cervix and uterus; R79.0 Abnormal level of blood mineral; K21.9 Gastro-esophageal reflux disease without esophagitis; F17.210 Nicotine dependence, cigarettes, uncomplicated; Z79.4 Long term (current) use of insulin; Z96.41 Presence of insulin pump (external) (internal)
CPT/HCPCS: 36415; 36600; 74018; 80048; 80053; 80307; 81001; 82010; 82375; 82805; 83036; 83050; 83605; 83690; 83735; 84100; 84443; 85025; 86140; 96361; 96365; 96366; 96367; 96368; 96375; 96376; 99285; A9270; C9113; G0378; G0379; J0131; J1170; J1815; J1885; J2405; J2543; J2550; J3010; J3475; J3480; J7030; J7040

== ENCOUNTER 2020-06-10 07:17 | Inpatient (IN) | payer OTHER, SELFPAY ==
[2020-06-10] VITALS (10 sets, daily range): BP systolic 89–118; BP diastolic 45–62; PULSE 76–120; RESP 16–20; TEMP 36.4–37.4; O2SAT 98; BMI 19.1
--- NOTE | ~2020-06-10 | XR_ITS ---
EXAMINATION: XR chest 1V portable DATE: 06/10/2020 07:48 INDICATION: Chest pain. TECHNIQUE: A single frontal view of the chest was obtained. COMPARISON: Chest 2 views 08/16/2019, CT abdomen and pelvis 08/27/2019 FINDINGS: There is mild scarring at the lung apices. No pleural effusion or pneumothorax. The heart s ize is normal. Surgical clips in the right upper quadrant are likely from cholecystectomy. IMPRESSION: 1. Mild scarring at the lung apices. Reviewed, dictated and finalized at location A. IDE COLLECTOR
--- NOTE | ~2020-06-10 | CT_ITS ---
EXAMINATION: CT abd pelvis lumbar w con DATE: 06/10/2020 08:49 INDICATION: Nausea and vomiting. TECHNIQUE: Computed tomography (CT) of the abdomen and pelvis and lumbar spine was performed with 100 mL Omnipaque 350 intravenous contrast. Automated exposure control and iterative reconstruction techn ique were employed. The dose-length product was 229.23 mGy-cm. COMPARISON: CT abdomen and pelvis 12/26/2019, 07/28/19 FINDINGS: CT ABDOMEN AND PELVIS: The visualized portions of the lung bases demonstrate minimal atelectasis on t he right. No pleural effusion. The heart size is normal. No pericardial effusion. There is a 2.3 cm h yperenhancing mass in right hepatic lobe. There are changes of cholecystectomy. The spleen, pancreas, and adrenal glands are normal. There is cortical thinning of the kidneys. There are no dilated loops of bowel. The appendix is normal. There are no pathologically enlarged lymph nodes. There is no free intraperitoneal fluid. The bladder is distended. CT LUMBAR SPINE: Bone alignment is normal. Vertebral body heights and intervertebral disc heights are normal. The following disc levels are specifically discussed: L1-L2: The disc does not extend beyond the endplate margin. There is mild bilateral facet joint osteo arthritis. There is no neural foraminal stenosis. There is no central canal stenosis. L2-L3: The disc does not extend beyond the endplate margin. There is mild bilateral facet joint osteo arthritis. There is no neural foraminal stenosis. There is no central canal stenosis. L3-L4: The disc does not extend beyond the endplate margin. There is mild bilateral facet joint osteo arthritis. There is no neural foraminal stenosis. There is no central canal stenosis. L4-L5: The disc does not extend beyond the endplate margin. There is mild bilateral facet joint osteo arthritis. There is no neural foraminal stenosis. There is no central canal stenosis. L5-S1: The disc is bulging. There is mild bilateral facet joint osteoarthritis. There is no neural fo raminal stenosis. There is mild central canal stenosis. IMPRESSION: 1. 2.3 cm liver mass, stable from 07/28/2019, likely a hemangioma or focal nodular hyperplasia. 2. Mild lumbar spondylosis. Reviewed, dictated and finalized at location A. IFIED CRAFT WORKER ELECTRICIAN IMPRESSION: 1. 2.3 cm liver mass, stable from 07/28/2019, likely a hemangioma or focal nodula r hyperplasia. 2. Mild lumbar spondylosis.
--- NOTE | 2020-06-10 07:24 | ECG_ITS ---
Measurements Intervals [place] Rate: 96 P: 59 IA: 143 QRS: 82 QRSD: 78 T: 42 QT: 361 QTc: 456 Interpretive Statements SINUS RHYTHM NORMAL ECG Electronically Signed On 06-10-2020 8:45:33 COMPUTER TRAINER by Pete Hernandez D.O.
[2020-06-10 07:47] LABS: Basophils Absolute Auto 0.06 K/mm3 (0.00-0.10); Basophils Percent Auto 0.5 % (0.0-1.0); Eosinophils Absolute Auto 0.08 K/mm3 (0.02-0.50); Eosinophils Percent Auto 0.7 % (1.0-6.0); Hematocrit 39.2 % (35.0-49.0); Hemoglobin 12.9 g/dL (12.0-15.0); Immature Granulocyte Absolute 0.06 K/mm3 (0.00-0.00); Immature Granulocyte Percent A 0.5 % (0.0-0.0); Lymphocytes Absolute Auto 2.16 K/mm3 (1.10-4.50); Lymphocytes Percent Auto 18.8 % (18.0-42.0); Mean Corpuscular HGB Conc 32.9 g/dL (32.0-36.0); Mean Corpuscular Hemoglobin 29.9 pg (27.0-31.0); Mean Platelet Volume 10.6 fl (9.2-11.8); Monocytes Absolute Auto 0.71 K/mm3 (0.10-0.90); Monocytes Percent Auto 6.2 % (2.0-11.0); Neutrophils Absolute Auto 8.4 K/mm3 (1.7-7.2); Neutrophils Percent Auto 73.3 % (50.0-70.0); Platelet Count Result 232 K/mm3 (150-420); Red Blood Count 4.31 M/mm3 (4.20-5.40); Red Cell Distribution Width 12.7 % (11.6-14.4); White Blood Count 11.5 K/mm3 (4.8-10.8)
[2020-06-10 08:06] LABS: Lactic Acid Reflex 2.1 mmol/L (0.4-2.0)
[2020-06-10] MEDS: ONDANSETRON INJ 4 MG/2 ML VIAL IV PUSH ×4 (08:13→21:03)
[2020-06-10] MEDS: SODIUM CHLORIDE 0.9% IV 1,000 ML 999 ML IV CONT ×3 (08:14→09:54)
[2020-06-10 08:16] LABS: Alanine Aminotransferase 53 U/L (14-59); Alkaline Phosphatase 108 U/L (46-116); Anion Gap 21 mmol/L (8-16); Aspartate Amino Transferase 40 U/L (15-37); Bilirubin,Total 1.1 mg/dL (0.00-1.00); Blood Urea Nitrogen 27 mg/dL (7-18); Calcium 9.1 mg/dL (8.5-10.1); Carbon Dioxide 17 mmol/L (21-32); Chloride 95 mmol/L (98-108); Estimated CRCL calculation 54 ml/min; Estimated Glomerular Filt Rate 57; Glucose 532 mg/dL (70-99); Magnesium 1.7 mg/dL (1.8-2.4); Osmolality Calculated 305 mOsm/kg (285-295); Phosphorus 3.7 mg/dL (2.6-4.7); Potassium 4.2 mmol/L (3.5-5.1); Sodium 133 mmol/L (136-145)
[2020-06-10 08:17] LABS: Troponin I < 0.02 ng/mL (0.00-0.056)
[2020-06-10 09:11] LABS: Glucose Point of Care 399 (65-105)
[2020-06-10 09:12] LABS: Add Urine Microscopic? YES; Appearance Urine Clear (Clear); Bilirubin Urine Negative (Negative); Blood Urine Negative (Negative); Color Urine Yellow (Yellow); Glucose Urine UA 3+ (Negative); Ketones Urine 3+ (Negative); Leukocyte Esterase Ur Negative LEU/UL (Negative); Nitrate Urine Negative (Negative); Protein Urine Negative (Negative); Specific Grav Ur 1.015 (1.010-1.020); Urobilinogen Urine 0.2 mg/dL (0.2-1.0)
[2020-06-10 09:13] LABS: Amphetamine Screen Urine Negative (Negative); Barbiturate Screen Urine Negative (Negative); Benzodiazepines Screen Urine Negative (Negative); Cannabinoid Screen Urine Positive (Negative); Cocaine Screen Urine Negative (Negative); Methadone Screen Urine Negative (Negative); Opiate Screen Urine Negative (Negative); Phencyclidine Screen Urine Negative (Negative)
[2020-06-10 09:24] LABS: Bacteria Urine Trace /hpf; RBC Urine 0-2 /hpf (0-2); Squamous Epithelial Cell Urine Rare /hpf (Few); WBC Urine 0-3 /hpf (0-3)
[2020-06-10] MEDS: KCL 20 MEQ/SW 100 ML 100 ML 50 MEQ IVPB (09:32)
[2020-06-10] MEDS: INSULIN HUMAN REGULAR (*BKC) 100 UNITS in SODIUM CHLORIDE 0.9% IV 99 ML IV CONT (09:33)
[2020-06-10 09:44] LABS: Glucose Point of Care > 450 (65-105)
[2020-06-10] MEDS: LORazepam INJ (*CRX) 2 MG/ML VIAL 0.5 MG IV PUSH ×2 (10:00→13:28)
[2020-06-10 10:22] LABS: Glucose Point of Care 354 (65-105)
--- NOTE | 2020-06-10 10:22 | PC.NURSE ---
call to navid , health care consultant for pt admission for inpatient status. call to 2nd floor for bed assignment. pt to go to room 203.
--- NOTE | 2020-06-10 10:30 | PC.NURSE ---
report to denice serra
--- NOTE | 2020-06-10 10:50 | ED.GENADULT ---
HPI - General Adult General Chief complaint: Chest Pain Stated complaint: AMBULANCE Source: patient Mode of arrival: EMS Limitations: no limitations History of Present Illness HPI narrative: This is a 29-year-old female with a history of type 1 diabetes and hypothyroidism presents via EMS with increased blood sugars with persistent nausea and vomiting had received Zofran and IV fluids EN route via EMS. Currently the patient is having abdominal epigastric and chest pain with numerous episodes of nausea and vomiting with no fever or chills. The patient had elevated glucose level at over 400 via AMS. The patient has a history of type 1 diabetes and is on insulin, along with some hypo thyroidism and on levothyroxine. The patient is afebrile with no diarrhea or constipation initially upon arrival was confused and had altered mental status. Patient did receive IV fluids via EMS. Currently there is no dysuria no diarrhea constipation no shortness of breath. Onset (ago): hour(s) Location: abdomen Radiation: abdomen Severity: moderate Severity scale (1-10): 8 Quality: dull Pain Consistency: constant Exacerbating factors: none Associated symptoms: confusion, chest pain, loss of appetite and nausea/vomiting Treatments prior to arrival: none Related Data Home Medications Medication Instructions Recorded Confirmed insulin lispro [Admelog U-100 3 unit CONTINUOUS SUBCUTANEOUS 07/25/19 06/10/20 Insulin lispro] INFUSION DIRECTED levothyroxine 50 mcg PO DAILY 12/16/19 06/10/20 ondansetron 8 mg TRANSLINGUAL DAILY PRN 12/27/19 06/10/20 Allergies Allergy/AdvReac Type Severity Reaction Status Date / Time Latex, Natural Rubber Allergy Severe Hives Verified 12/27/19 16:40 peanut oil Allergy Severe Difficulty Verified 12/27/19 16:40 Breathing metoclopramide [From Reglan] AdvReac Mild Anxiety Verified 12/27/19 16:40 Review of Systems Review of Systems: All systems reviewed & are unremarkable except as noted in HPI and below PMFSH Past Medical History Medical History (Updated 06/10/20 @ 10:59 by Mik Henley MD) Acute cervicitis Dysmenorrhea Endometritis GERD (gastroesophageal reflux disease) History of seizure As a child. History of UTI Hypothyroidism Ovarian cyst Type 1 diabetes mellitus Surgical History Surgical History H/O: hysterectomy 12/23/[address] san Status post cholecystectomy Status post endometrial ablation 08/06/19 Dr San. Status post ovarian cystectomy 08/06/19 Dr San. Status post tubal ligation 08/06/19 Dr San. Family History Family History Mother Lupus (systemic lupus erythematosus) Scleroderma Diabetes mellitus Heart disease Renal disease Cerebrovascular accident History of blood clots Grandparent Hypertension Father CAD (coronary artery disease) Social History Social History Social History: The patient lives in [place], [place] with her 8-year-old daughter. 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 She tells me she smokes 7-8 cigarettes a day for the last 10 years. She reports occasional marijuana use. She denies alcohol use. Her PCP is Dr. Rodney Grier. She designates her mother, Olya Rodriguez, as her surrogate decision maker and she is full code status. Smoking packs per day: 0.5 Smoking cigarettes per day: 10.0 Years smoked: 10 Smoking pack-years: 5.00 Smoking status: Current some day smoker Tobacco type: cigarettes Second hand tobacco smoke exposure: Yes (significant other smokes daily) Smoking end date: 12/22/19 Alcohol intake: never Drinks per week: 1 Substance use: current Substance use type: marijuana Last use: Patient reports last use of Marijuana about 3 weeks ago Gender identity (if verbalized by the patient): Female Sp
[2020-06-10 10:57] LABS: Potassium 4.6 mmol/L (3.5-5.1)
[2020-06-10 10:57] LABS: Glucose 363 mg/dL (70-99)
[2020-06-10 11:07] LABS: Reflex Lactic Acid Yes or No Add Lactic
--- NOTE | 2020-06-10 11:13 | PC.NURSE ---
ADDITIONAL LITER STARTED AT TIME OF TRANSPORT AND INFUSING TO FLOOR
[2020-06-10 11:44] LABS: Glucose Point of Care 195 (65-105)
[2020-06-10 12:47] LABS: Base Excess ABG -9.5 mmol/L (0-2); HCO3 ABG 15.8 mmol/L (23-29); Oxygen Content ABG 14.6 %vol (16.0-22.0); Oxygen Saturation ABG 96.9 % (95-97); Oxyhemoglobin 96.2 % (94-100); PCO2 ABG 32.7 mmHg (35-45); PO2 ABG 98.2 mmHg (80-90); Total Hemoglobin 10.7 g/dL
[2020-06-10 12:48] LABS: Device ROOM AIR; Modified Allen's Test Pass; Site Drawn RIGHT RADIAL
--- NOTE | 2020-06-10 12:54 | PM.IMHP ---
H&P: HPI History of Present Illness Date/Time: 06/10/20 12:54 Chief complaint: DKA AMS Narrative: Steph Camacho is a 29 year old female that presented to the ED with nausea and vomiting patient has a past medical history of type 1 diabetes, hypothyroidism, GERD, and history of seizure. According to patient 2 days ago she started feeling fatigued with nauseated. According to patient she woke up this morning with several episodes of nausea and vomiting , chest discomfort according to patient after she vomited she felt pain in her abdominal area and on the left side of her chest that radiating from her back . She also noted that she had diarrhea she usually is constipation. she has episodes of DKA once before but she said it did not feel like this one. She noted that this particular episode hit her quicker than most. According to patient her Dexcom meter had malfunction she was unable to get her blood sugar reading. She did note that on occasion she manually checked her blood sugar. she is a brittle diabetic and her blood sugars fluctuates quickly. Patient is being admitted admitted for DKA. She does continue to have abdominal tenderness that she believes occurred as a result of her vomiting, she also remains fatigued and her vomiting is controlled with Zofran. She was able to tolerate her meals the patient denies SOB, CP, palpitation, extremity numbness, lightheadedness, dizziness, constipation, chills, or fever. Review of Systems Review of Systems: All systems reviewed & are unremarkable except as noted in HPI and below (10 point system review) [facility] Past Medical History Medical History (Updated 06/10/20 @ 13:14 by JJ Ignacio-William) Acute cervicitis Dysmenorrhea Endometritis GERD (gastroesophageal reflux disease) History of seizure As a child. History of UTI Hypothyroidism Ovarian cyst Type 1 diabetes mellitus Surgical History Surgical History H/O: hysterectomy 12/23/[address] san Status post cholecystectomy Status post endometrial ablation 08/06/19 Dr San. Status post ovarian cystectomy 08/06/19 Dr San. Status post tubal ligation 08/06/19 Dr San. Family History Family History Mother Lupus (systemic lupus erythematosus) Scleroderma Diabetes mellitus Heart disease Renal disease Cerebrovascular accident History of blood clots Grandparent Hypertension Father CAD (coronary artery disease) Social History Social History Social History: The patient lives in [place], [place] with her 8-year-old daughter. 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 She tells me she smokes 7-8 cigarettes a day for the last 10 years. She reports occasional marijuana use. She denies alcohol use. Her PCP is Dr. Rodney Grier. She designates her mother, Olya Rodriguez, as her surrogate decision maker and she is full code status. Smoking packs per day: 0.5 Smoking cigarettes per day: 10.0 Years smoked: 4 Smoking pack-years: 2.00 Smoking status: Current every day smoker Tobacco type: cigarettes Second hand tobacco smoke exposure: Yes Smoking end date: 12/22/19 Alcohol intake: never Drinks per week: 1 Substance use: current Substance use type: marijuana Last use: Patient reports last use of Marijuana about 3 weeks ago Gender identity (if verbalized by the patient): Female Sexual Orientation (if Verbalized by the Patient): Straight or Heterosexual Spiritual care concerns: No Agree to blood products: Yes Meds Home Medications and Allergies Home Medications Medication Instructions Recorded Confirmed Type insulin lispro [Admelog U-100 3 unit CONTINUOUS SUBCUTANEOUS 07/25/19 06/10/20 History Insulin lispro] INFUSION DIRECTED levothyroxine 50 mcg PO DAILY 12/16/19 1
[2020-06-10 13:05] LABS: Hemoglobin A1C 10.3 % (<5.7)
[2020-06-10 13:06] LABS: Alanine Aminotransferase 39 U/L (14-59); Alkaline Phosphatase 84 U/L (46-116); Anion Gap 12 mmol/L (8-16); Aspartate Amino Transferase 27 U/L (15-37); Bilirubin,Total 0.5 mg/dL (0.00-1.00); Blood Urea Nitrogen 19 mg/dL (7-18); Carbon Dioxide 19 mmol/L (21-32); Chloride 106 mmol/L (98-108); Estimated CRCL calculation 77 ml/min; Estimated Glomerular Filt Rate > 60; Glucose 122 mg/dL (70-99); Osmolality Calculated 287 mOsm/kg (285-295); Sodium 137 mmol/L (136-145)
[2020-06-10 13:10] LABS: Magnesium 1.3 mg/dL (1.8-2.4)
[2020-06-10] MEDS: MAGNESIUM SULF 2 GM/WATER 50ML 2 GM/50 ML BAG IVPB ×2 (13:38→20:02)
[2020-06-10] MEDS: DEXTROSE 5%/0.45% SOD CHL 1,000 ML 100 ML IV CONT ×2 (14:00→23:48)
[2020-06-10] MEDS: INSULIN GLARGINE (*BKC) 100 UNITS/ML 10 UNITS SUB-Q (14:01)
[2020-06-10 14:08] LABS: Glucose Point of Care 129 (65-105)
[2020-06-10 15:59] LABS: Glucose Point of Care 200 (65-105)
[2020-06-10 18:02] LABS: Glucose Point of Care 226 (65-105)
[2020-06-10 20:23] LABS: Glucose Point of Care 168 (65-105)
[2020-06-10] MEDS: traZODone HCL 25 MG TABLET PO (21:03)
--- NOTE | 2020-06-11 00:04 | PC.NURSE ---
Sleeping, D5.045NS infusing @ 100ml/hr per IV pump.
[2020-06-11] MEDS: ONDANSETRON INJ 4 MG/2 ML VIAL IV PUSH ×3 (03:39→23:39)
--- NOTE | 2020-06-11 03:46 | PC.NURSE ---
C/O of nausea, Zofran 4mg IVP given. Ambulated to bathroom with steady gait. Tolerated well.
[2020-06-11 04:00] VITALS: PULSE 90
[2020-06-11 05:26] LABS: Basophils Absolute Auto 0.05 K/mm3 (0.00-0.10); Basophils Percent Auto 0.6 % (0.0-1.0); Eosinophils Absolute Auto 0.05 K/mm3 (0.02-0.50); Eosinophils Percent Auto 0.6 % (1.0-6.0); Hematocrit 32.4 % (35.0-49.0); Hemoglobin 10.2 g/dL (12.0-15.0); Immature Granulocyte Absolute 0.02 K/mm3 (0.00-0.00); Immature Granulocyte Percent A 0.2 % (0.0-0.0); Lymphocytes Absolute Auto 1.95 K/mm3 (1.10-4.50); Lymphocytes Percent Auto 23.8 % (18.0-42.0); Mean Corpuscular HGB Conc 31.5 g/dL (32.0-36.0); Mean Corpuscular Hemoglobin 29.9 pg (27.0-31.0); Mean Platelet Volume 10.3 fl (9.2-11.8); Monocytes Absolute Auto 0.69 K/mm3 (0.10-0.90); Monocytes Percent Auto 8.4 % (2.0-11.0); Neutrophils Absolute Auto 5.4 K/mm3 (1.7-7.2); Neutrophils Percent Auto 66.4 % (50.0-70.0); Platelet Count Result 216 K/mm3 (150-420); Red Blood Count 3.41 M/mm3 (4.20-5.40); Red Cell Distribution Width 12.9 % (11.6-14.4); White Blood Count 8.2 K/mm3 (4.8-10.8)
[2020-06-11 05:44] LABS: Lactic Acid Reflex 0.5 mmol/L (0.4-2.0)
[2020-06-11 05:48] LABS: Magnesium 1.8 mg/dL (1.8-2.4)
[2020-06-11] MEDS: LEVOTHYROXINE SODIUM 50 MCG TABLET PO (05:55)
[2020-06-11 06:00] VITALS: BP 94/46; PULSE 98; RESP 20; TEMP 36.5; O2SAT 97
--- NOTE | 2020-06-11 06:31 | PC.NURSE ---
No further complaints of nausea.
--- NOTE | 2020-06-11 06:34 | PC.NURSE ---
Patient IV site began to leak. IV removed intact. Doctor notified and order received to DC fluids and allow patient to have breakfast.
--- NOTE | 2020-06-11 07:28 | ECG_ITS ---
Measurements Intervals [place] Rate: 91 P: 60 NV: 133 QRS: 89 QRSD: 75 T: 72 QT: 357 QTc: 440 Interpretive Statements SINUS RHYTHM CANNOT RULE OUT SEPTAL INFARCT, AGE INDETERMINATE ABNORMAL ECG Electronically Signed On 06-11-2020 9:33:08 CERTIFIED OPHTHALMIC TECHNOLOGIST by Pete Hernandez D.O.
[2020-06-11] MEDS: INSULIN GLARGINE (*BKC) 100 UNITS/ML 10 UNITS SUB-Q (07:48)
[2020-06-11 07:49] LABS: Alanine Aminotransferase 28 U/L (14-59); Albumin Level 2.9 g/dL (3.4-5.0); Alkaline Phosphatase 79 U/L (46-116); Anion Gap 21 mmol/L (8-16); Aspartate Amino Transferase 18 U/L (15-37); Blood Urea Nitrogen 11 mg/dL (7-18); Carbon Dioxide 13 mmol/L (21-32); Chloride 99 mmol/L (98-108); Estimated CRCL calculation 67 ml/min; Estimated Glomerular Filt Rate > 60; Glucose 327 mg/dL (70-99); Osmolality Calculated 288 mOsm/kg (285-295); Potassium 4.4 mmol/L (3.5-5.1); Sodium 133 mmol/L (136-145); Total Protein 5.7 g/dL (6.4-8.2)
[2020-06-11 08:00] VITALS: PULSE 97
[2020-06-11 08:23] VITALS: BP 91/47; PULSE 97; RESP 18; TEMP 37.1; O2SAT 98
[2020-06-11 08:29] LABS: Bilirubin,Total < 0.1 mg/dL (0.00-1.00)
[2020-06-11 08:48] LABS: Troponin I 0.07 ng/mL (0.00-0.056)
[2020-06-11] MEDS: PANTOPRAZOLE SOD SESQUIHYDRATE 20 MG TAB PO (08:59)
[2020-06-11] MEDS: MAG HYDROX/AL HYDROX/SIMETH 30 ML UDC PO (09:47)
--- NOTE | 2020-06-11 11:21 | P.PN_ITS ---
Progress Note: A&P Assessment and Plan (1) DKA (diabetic ketoacidoses): Qualifiers: Diabetes mellitus complication detail: without coma Diabetes mellitus type: type 1 Qualified Code(s): E10.10 - Type 1 diabetes mellitus with ketoacidosis without coma Code(s): E11.10 - Type 2 diabetes mellitus with ketoacidosis without coma Status: Acute Assessment and Plan: * As evidenced by patient's anion gap at 21, blood sugar 532, osmolarity and 305 * After insulin pump initiated patient's pH 7.30 and bicarb 15.8 * potassium 4.2, phosphorus 37, magnesium 1.7. Patient given potassium 20 mEq in ED and magnesium 2 g. * Insulin pump started in ED at 1 unit/h patient also received 3 L of fluid * Repeat labs collected at 1300 patient anion gap within normal limits blood sugar at 122, osmolarity at within normal limits insulin pump discontinued 10 units of Lantus given with moderate sliding scale and Accu-Cheks every 2 hours until 8:00 PM * D5 0.45 NACL started at 100 mL/h 06/11/2020 * Patient anion gap back at 21 restarted insulin pump at 1 unit/h with normal saline will monitor serum blood sugars every 4 hours and Accu-Cheks every 2 hours. (2) Diabetes 1.5, managed as type 1: Code(s): E13.9 - Other specified diabetes mellitus without complications Status: Acute Assessment and Plan: * Patient A1c 10.3 * Continue diabetic diet * Continue sliding scale with Accu-Cheks and hypoglycemic protocol * Will closely monitor patient's blood sugars (3) Nausea & vomiting: Qualifiers: Vomiting Intractability: non-intractable Vomiting type: unspecified Qualified Code(s): R11.2 - Nausea with vomiting, unspecified Code(s): R11.2 - Nausea with vomiting, unspecified Status: Acute Assessment and Plan: * Secondary to DKA * Resolved * Continue Zofran (4) Low magnesium level: Code(s): R79.0 - Abnormal level of blood mineral Status: Acute Assessment and Plan: * Replaced via IV * Will recheck level regularly 06/11/20-today within normal limits (5) Suprapubic abdominal pain: Code(s): R10.2 - Pelvic and perineal pain Status: Acute Assessment and Plan: * Secondary to DKA and vomiting * Resolved (6) GERD (gastroesophageal reflux disease): Code(s): K21.9 - Gastro-esophageal reflux disease without esophagitis Status: Acute Assessment and Plan: * Will start Protonix (7) Hypothyroidism: Code(s): E03.9 - Hypothyroidism, unspecified Status: Acute Assessment and Plan: * Continue Synthroid 50 mcg daily (8) DVT prophylaxis: Code(s): Z29.9 - Encounter for prophylactic measures, unspecified Status: Acute Assessment and Plan: * Started Lovenox (9) Smoker: Code(s): F17.200 - Nicotine dependence, unspecified, uncomplicated Status: Acute Assessment and Plan: * Started nicotine patch * Educated on cessation * (10) Substance abuse: Code(s): F19.10 - Other psychoactive substance abuse, uncomplicated Status: Acute Assessment and Plan: * Tested positive for cannabis * Educated on cessation Review of Systems Review of Systems: All systems reviewed & are unremarkable except as noted in HPI and below (10 point system review) Exam Narrative: Exam Narrative: GENERAL: This is a well-nourished, well-developed patient, in no apparent distress. HEAD: normocephalic, atraumatic. EYES: PERRL. Sclera clear/white. Vision is grossl
--- NOTE | 2020-06-11 11:21 | WPDPN ---
Progress Note: A&P Assessment and Plan (1) DKA (diabetic ketoacidoses): Qualifiers: Diabetes mellitus complication detail: without coma Diabetes mellitus type: type 1 Qualified Code(s): E10.10 - Type 1 diabetes mellitus with ketoacidosis without coma Code(s): E11.10 - Type 2 diabetes mellitus with ketoacidosis without coma Status: Acute Assessment and Plan: As evidenced by patient's anion gap at 21, blood sugar 532, osmolarity and 305 After insulin pump initiated patient's pH 7.30 and bicarb 15.8 potassium 4.2, phosphorus 37, magnesium 1.7. Patient given potassium 20 mEq in ED and magnesium 2 g. Insulin pump started in ED at 1 unit/h patient also received 3 L of fluid Repeat labs collected at 1300 patient anion gap within normal limits blood sugar at 122, osmolarity at within normal limits insulin pump discontinued 10 units of Lantus given with moderate sliding scale and Accu-Cheks every 2 hours until 8:00 PM D5 0.45 NACL started at 100 mL/h 06/11/2020 Patient anion gap back at 21 restarted insulin pump at 1 unit/h with normal saline will monitor serum blood sugars every 4 hours and Accu-Cheks every 2 hours. (2) Diabetes 1.5, managed as type 1: Code(s): E13.9 - Other specified diabetes mellitus without complications Status: Acute Assessment and Plan: Patient A1c 10.3 Continue diabetic diet Continue sliding scale with Accu-Cheks and hypoglycemic protocol Will closely monitor patient's blood sugars (3) Nausea & vomiting: Qualifiers: Vomiting Intractability: non-intractable Vomiting type: unspecified Qualified Code(s): R11.2 - Nausea with vomiting, unspecified Code(s): R11.2 - Nausea with vomiting, unspecified Status: Acute Assessment and Plan: Secondary to DKA Resolved Continue Zofran (4) Low magnesium level: Code(s): R79.0 - Abnormal level of blood mineral Status: Acute Assessment and Plan: Replaced via IV Will recheck level regularly 06/11/20-today within normal limits (5) Suprapubic abdominal pain: Code(s): R10.2 - Pelvic and perineal pain Status: Acute Assessment and Plan: Secondary to DKA and vomiting Resolved (6) GERD (gastroesophageal reflux disease): Code(s): K21.9 - Gastro-esophageal reflux disease without esophagitis Status: Acute Assessment and Plan: Will start Protonix (7) Hypothyroidism: Code(s): E03.9 - Hypothyroidism, unspecified Status: Acute Assessment and Plan: Continue Synthroid 50 mcg daily (8) DVT prophylaxis: Code(s): Z29.9 - Encounter for prophylactic measures, unspecified Status: Acute Assessment and Plan: Started Lovenox (9) Smoker: Code(s): F17.200 - Nicotine dependence, unspecified, uncomplicated Status: Acute Assessment and Plan: Started nicotine patch Educated on cessation (10) Substance abuse: Code(s): F19.10 - Other psychoactive substance abuse, uncomplicated Status: Acute Assessment and Plan: Tested positive for cannabis Educated on cessation Review of Systems Review of Systems: All systems reviewed & are unremarkable except as noted in HPI and below (10 point system review) Exam Narrative: Exam Narrative: GENERAL: This is a well-nourished, well-developed patient, in no apparent distress. HEAD: normocephalic, atraumatic. EYES: PERRL. Sclera clear/white. Vision is grossly intact. EARS: External ears normal, auditory canals clear and without drainage, TMs normal without perforation. Hearing grossly intact. NOSE: External nose normal with no obvious nasal discharge, nares without redness, no rhinorrhea. THROAT: Mucous membranes moist, posterior pharynx clear. NECK: Neck supple, non-tender without lymphadenopathy, masses or thyromegaly. CARDIOVASCULAR: Regular rate and rhythm without murmurs, gallops, or rubs. RESPIRATORY: Clear to auscu
[2020-06-11 11:35] LABS: Glucose Point of Care 257 (65-105)
[2020-06-11 11:36] LABS: Glucose Point of Care 319 (65-105)
[2020-06-11] MEDS: SODIUM CHLORIDE 0.9% IV 1,000 ML 150 ML IV CONT ×2 (12:06→20:12)
[2020-06-11] MEDS: INSULIN HUMAN REGULAR (*BKC) 100 UNITS in SODIUM CHLORIDE 0.9% IV 99 ML IV CONT (12:08)
[2020-06-11] MEDS: LORazepam INJ (*CRX) 2 MG/ML VIAL 0.5 MG IV PUSH (13:02)
[2020-06-11 14:00] VITALS: BP 108/54; PULSE 90; RESP 18; TEMP 36.8; O2SAT 99
[2020-06-11 14:47] LABS: Anion Gap 8 mmol/L (8-16); Blood Urea Nitrogen 8 mg/dL (7-18); Calcium 8.2 mg/dL (8.5-10.1); Carbon Dioxide 25 mmol/L (21-32); Chloride 103 mmol/L (98-108); Estimated CRCL calculation 71 ml/min; Estimated Glomerular Filt Rate > 60; Glucose 163 mg/dL (70-99); Osmolality Calculated 284 mOsm/kg (285-295); Potassium 3.6 mmol/L (3.5-5.1); Sodium 136 mmol/L (136-145)
[2020-06-11 15:07] LABS: Magnesium 1.5 mg/dL (1.8-2.4); Phosphorus 2.3 mg/dL (2.6-4.7)
[2020-06-11] MEDS: HYDROcodone/acetaminophen (*CRX) 5-325 MG TABLET 1 TAB PO (15:50)
[2020-06-11 16:45] LABS: Glucose Point of Care 86 (65-105)
[2020-06-11] MEDS: traZODone HCL 25 MG TABLET PO (20:22)
[2020-06-11] MEDS: LORazepam (*CRX) 0.5 MG TABLET PO (20:22)
[2020-06-11 21:08] LABS: Anion Gap 11 mmol/L (8-16); Blood Urea Nitrogen 8 mg/dL (7-18); Calcium 8.2 mg/dL (8.5-10.1); Carbon Dioxide 24 mmol/L (21-32); Chloride 104 mmol/L (98-108); Estimated CRCL calculation 68 ml/min; Estimated Glomerular Filt Rate > 60; Glucose 91 mg/dL (70-99); Osmolality Calculated 286 mOsm/kg (285-295); Potassium 3.9 mmol/L (3.5-5.1); Sodium 139 mmol/L (136-145)
[2020-06-11 22:00] VITALS: BP 101/60; PULSE 89; RESP 16; TEMP 36.6; O2SAT 98
[2020-06-11 23:32] LABS: Glucose Point of Care 81 (65-105)
[2020-06-11 23:33] LABS: Glucose Point of Care 85 (65-105)
--- NOTE | 2020-06-12 00:28 | PC.NURSE ---
0000 Pt. sleeping when entering room for assessment. Pt. awakens easily and reports still having nausea, Zofran 4 mg IVP given as per order for nausea. Pt. noted to be diaphoretic and requested dry gown. linen changed, VSS. Pt. refuses any drink due to nausea. BS checked and noted 81.
--- NOTE | 2020-06-12 01:27 | PC.NURSE ---
Pt. c/o increasing abd. pain, cramping and discomfort and feeling nauseated. Recheck of BS noted now at 78. ERP Dr. Padilla informed of pt. status and c/o, new orders received.
[2020-06-12] MEDS: METOCLOPRAMIDE HCL INJ 10 MG/2 ML VIAL IV PUSH (02:05)
--- NOTE | 2020-06-12 02:06 | PC.NURSE ---
Addendum entered by Billie Kaye RN 06/12/20 02:07: Dr. Padilla notified at 0136 for new orders. Original Note: Dr. Padilla notified of pt's c/o nausea and stomach cramps; New orders received and noted.
[2020-06-12] MEDS: DEXTROSE 5%/0.9% SOD CHL 1,000 ML 100 ML IV CONT (02:08)
[2020-06-12] MEDS: LORazepam (*CRX) 0.5 MG TABLET PO ×2 (02:23→10:24)
[2020-06-12 02:25] LABS: Glucose Point of Care 78 (65-105)
--- NOTE | 2020-06-12 02:27 | PC.NURSE ---
0200 New IV site placed in Lt. FA as Lt. hand is infiltrated. Pt. now c/o feeling agitated and restless p given Reglan and wanting something to help her rest. IV fluids infusing in new site s difficulty.
[2020-06-12 06:06] LABS: Alanine Aminotransferase 29 U/L (14-59); Alkaline Phosphatase 72 U/L (46-116); Anion Gap 14 mmol/L (8-16); Aspartate Amino Transferase 21 U/L (15-37); Bilirubin,Total 0.4 mg/dL (0.00-1.00); Blood Urea Nitrogen 8 mg/dL (7-18); Calcium 8.1 mg/dL (8.5-10.1); Carbon Dioxide 21 mmol/L (21-32); Chloride 105 mmol/L (98-108); Estimated CRCL calculation 74 ml/min; Estimated Glomerular Filt Rate > 60; Glucose 184 mg/dL (70-99); Osmolality Calculated 293 mOsm/kg (285-295); Potassium 3.9 mmol/L (3.5-5.1); Sodium 140 mmol/L (136-145); Total Protein 5.8 g/dL (6.4-8.2)
[2020-06-12 07:00] VITALS: BP 98/59; PULSE 84; RESP 18; TEMP 36.6; O2SAT 95
[2020-06-12 07:07] LABS: Glucose Point of Care 236 (65-105)
[2020-06-12] MEDS: LEVOTHYROXINE SODIUM 50 MCG TABLET PO (07:42)
[2020-06-12] MEDS: CALCIUM CARBONATE (OSCAL) 500 MG TABLET PO (07:42)
[2020-06-12] MEDS: ONDANSETRON INJ 4 MG/2 ML VIAL IV PUSH (07:48)
[2020-06-12 07:49] LABS: Hematocrit 32.1 % (35.0-49.0); Hemoglobin 10.7 g/dL (12.0-15.0); Mean Corpuscular HGB Conc 33.3 g/dL (32.0-36.0); Mean Corpuscular Hemoglobin 30.3 pg (27.0-31.0); Mean Corpuscular Volume 90.9 fL (78.0-102.0); Mean Platelet Volume 10.6 fl (9.2-11.8); Platelet Count Result 207 K/mm3 (150-420); Red Blood Count 3.53 M/mm3 (4.20-5.40); White Blood Count 4.4 K/mm3 (4.8-10.8)
[2020-06-12] MEDS: PANTOPRAZOLE SOD SESQUIHYDRATE 20 MG TAB PO (09:03)
--- NOTE | 2020-06-12 09:13 | P.DS_ITS ---
DS: Admitting Diagnosis Admitting Diagnosis Admitting Diagnosis: DKA AMS DS: Discharge Diagnosis Discharge Diagnosis (1) DKA (diabetic ketoacidoses): Qualifiers: Diabetes mellitus complication detail: without coma Diabetes mellitus type: type 1 Qualified Code(s): E10.10 - Type 1 diabetes mellitus with ketoaci dosis without coma Code(s): E11.10 - Type 2 diabetes mellitus with ketoacidosis without coma Status: Acute Assessment and Plan: * As evidenced by patient's anion gap at 21, blood sugar 532, osmolarity and 305 on admission * Currently anion gap a 14, blood sugar 184 and osmolality 293 * After insulin pump initiated patient's pH 7.30 and bicarb 15.8 * Electrolytes within normal limits * Patient was placed on a insulin pump with fluids her condition improved she is discharging home today * Patient will need to follow-up with her primary care physician to get a replacement dexcon.patient insulin pump restarted (2) Diabetes 1.5, managed as type 1: Code(s): E13.9 - Other specified diabetes mellitus without complications Status: Acute Assessment and Plan: * Patient A1c 10.3 * Continue insulin pump at home medication (3) Nausea & vomiting: Qualifiers: Vomiting Intractability: non-intractable Vomiting type: unspecified Qualified Code(s): R11.2 - Nausea with vomiting, unspecified Code(s): R11.2 - Nausea with vomiting, unspecified Status: Acute Assessment and Plan: * Secondary to DKA * Resolved * Continue Zofran (4) Low magnesium level: Code(s): R79.0 - Abnormal level of blood mineral Status: Acute Assessment and Plan: * Replaced via IV * Will recheck level regularly 06/11/20-today within normal limits (5) Suprapubic abdominal pain: Code(s): R10.2 - Pelvic and perineal pain Status: Acute Assessment and Plan: * Secondary to DKA and vomiting * Resolved (6) GERD (gastroesophageal reflux disease): Code(s): K21.9 - Gastro-esophageal reflux disease without esophagitis Status: Acute Assessment and Plan: * Will start Protonix (7) Hypothyroidism: Code(s): E03.9 - Hypothyroidism, unspecified Status: Acute Assessment and Plan: * Continue Synthroid 50 mcg daily (8) DVT prophylaxis: Code(s): Z29.9 - Encounter for prophylactic measures, unspecified Status: Acute Assessment and Plan: * Lovenox (9) Smoker: Code(s): F17.200 - Nicotine dependence, unspecified, uncomplicated Status: Acute Assessment and Plan: * Started nicotine patch * Educated on cessation * (10) Substance abuse: Code(s): F19.10 - Other psychoactive substance abuse, uncomplicated Status: Acute Assessment and Plan: * Tested positive for cannabis * Educated on cessation DS: Summary Time Spent with Patient Time attestation: Total time spent providing and/or coordinating discharge services: Exam Narrative: Exam Narrative: GENERAL: This is a well-nourished, well-developed patient, in no apparent distress. HEAD: normocephalic, atraumatic. EYES: PERRL. Sclera clear/white. Vision is grossly intact. EARS: External ears normal, auditory canals clear and without drainage, TMs normal without perforation. Hearing grossly intact. NOSE: External nose normal with no obvious nasal discharge, nares without redness, no rhinorrhea. THROAT: Mucous membranes moist, posterior pharynx clear. NECK: Neck supple, non-tende
--- NOTE | 2020-06-12 09:13 | PM.DS ---
DS: Admitting Diagnosis Admitting Diagnosis Admitting Diagnosis: DKA AMS DS: Discharge Diagnosis Discharge Diagnosis (1) DKA (diabetic ketoacidoses): Qualifiers: Diabetes mellitus complication detail: without coma Diabetes mellitus type: type 1 Qualified Code(s): E10.10 - Type 1 diabetes mellitus with ketoacidosis without coma Code(s): E11.10 - Type 2 diabetes mellitus with ketoacidosis without coma Status: Acute Assessment and Plan: As evidenced by patient's anion gap at 21, blood sugar 532, osmolarity and 305 on admission Currently anion gap a 14, blood sugar 184 and osmolality 293 After insulin pump initiated patient's pH 7.30 and bicarb 15.8 Electrolytes within normal limits Patient was placed on a insulin pump with fluids her condition improved she is discharging home today Patient will need to follow-up with her primary care physician to get a replacement dexcon.patient insulin pump restarted (2) Diabetes 1.5, managed as type 1: Code(s): E13.9 - Other specified diabetes mellitus without complications Status: Acute Assessment and Plan: Patient A1c 10.3 Continue insulin pump at home medication (3) Nausea & vomiting: Qualifiers: Vomiting Intractability: non-intractable Vomiting type: unspecified Qualified Code(s): R11.2 - Nausea with vomiting, unspecified Code(s): R11.2 - Nausea with vomiting, unspecified Status: Acute Assessment and Plan: Secondary to DKA Resolved Continue Zofran (4) Low magnesium level: Code(s): R79.0 - Abnormal level of blood mineral Status: Acute Assessment and Plan: Replaced via IV Will recheck level regularly 06/11/20-today within normal limits (5) Suprapubic abdominal pain: Code(s): R10.2 - Pelvic and perineal pain Status: Acute Assessment and Plan: Secondary to DKA and vomiting Resolved (6) GERD (gastroesophageal reflux disease): Code(s): K21.9 - Gastro-esophageal reflux disease without esophagitis Status: Acute Assessment and Plan: Will start Protonix (7) Hypothyroidism: Code(s): E03.9 - Hypothyroidism, unspecified Status: Acute Assessment and Plan: Continue Synthroid 50 mcg daily (8) DVT prophylaxis: Code(s): Z29.9 - Encounter for prophylactic measures, unspecified Status: Acute Assessment and Plan: Lovenox (9) Smoker: Code(s): F17.200 - Nicotine dependence, unspecified, uncomplicated Status: Acute Assessment and Plan: Started nicotine patch Educated on cessation (10) Substance abuse: Code(s): F19.10 - Other psychoactive substance abuse, uncomplicated Status: Acute Assessment and Plan: Tested positive for cannabis Educated on cessation DS: Summary Time Spent with Patient Time attestation: Total time spent providing and/or coordinating discharge services: Exam Narrative: Exam Narrative: GENERAL: This is a well-nourished, well-developed patient, in no apparent distress. HEAD: normocephalic, atraumatic. EYES: PERRL. Sclera clear/white. Vision is grossly intact. EARS: External ears normal, auditory canals clear and without drainage, TMs normal without perforation. Hearing grossly intact. NOSE: External nose normal with no obvious nasal discharge, nares without redness, no rhinorrhea. THROAT: Mucous membranes moist, posterior pharynx clear. NECK: Neck supple, non-tender without lymphadenopathy, masses or thyromegaly. CARDIOVASCULAR: Regular rate and rhythm without murmurs, gallops, or rubs. RESPIRATORY: Clear to auscultation. Breath sounds equal bilaterally. No wheezes, rales, or rhonchi. GASTROINTESTINAL: Abdomen soft, with tenderness, nondistended. Bowel sounds are active. No hepato-splenomegaly, or palpable masses. No guarding. SKIN: warm, intact with no suspicious lesions or rash, good texture and turgor. NEURO: awake, alert,
[2020-06-12 09:18] LABS: Add Urine Microscopic? YES; Appearance Urine Clear (Clear); Bilirubin Urine 1+ (Negative); Blood Urine Negative (Negative); Color Urine Yellow (Yellow); Glucose Urine UA Trace (Negative); Ketones Urine 3+ (Negative); Leukocyte Esterase Ur Negative LEU/UL (Negative); Nitrate Urine Negative (Negative); Protein Urine Negative (Negative); Specific Grav Ur >= 1.030 (1.010-1.020); Urobilinogen Urine 0.2 mg/dL (0.2-1.0)
[2020-06-12 09:24] LABS: RBC Urine None seen /hpf (0-2); Squamous Epithelial Cell Urine Few /hpf (Few); WBC Urine None seen /hpf (0-3)
[2020-06-12 09:25] LABS: Bacteria Urine Trace /hpf; Mucus Urine Few /lpf
--- NOTE | 2020-06-12 09:30 | PC.NURSE ---
Had small loose stool, urine obtained and taken to lab for testing, did not eat much breakfast, no vomiting, feeling better, less nausea
--- NOTE | 2020-06-12 10:15 | PC.NURSE ---
pacing in room, trying to get insurance to refill her dexcom, no mattress spring encaser today at her insurance and will have to call back on sunday, states frustrated due to not being able to have her monitor to check her sugars regularly, does have a manual one but feels that will not be enough once at home, her monitor that is needing re ordered early checks her sugars every 5 min, other jade she will have to finger stick to spot check her sugar and regulate her pump, it can be done but not as regular with her device
[2020-06-12 11:15] LABS: Glucose Point of Care 174 (65-105)
--- NOTE | 2020-06-12 13:15 | PC.NURSE ---
Discharged to home via wheel chair, instructons reviewed and verbalized understanding, no questions upon discharge home
--- NOTE | 2020-06-14 13:01 | PC.NURSE ---
Pt states she received and understood her discharge instructions. She also stated everything was excellent .
== END 2020-06-12 13:15 | disposition home or self-care (01) | DRG 420 ==
LOC: CHSED 10:59 → CHS2ND 11:13
PROVIDERS: Nurse Practitioner; Admitting Provider Emergency Medicine; Emergency Provider Emergency Medicine; PCP Family Medicine; Visit Provider Emergency Medicine
DX: E10.10 Type 1 diabetes mellitus with ketoacidosis without coma (principal); R11.2 Nausea with vomiting, unspecified; E03.9 Hypothyroidism, unspecified; K21.9 Gastro-esophageal reflux disease without esophagitis; F17.210 Nicotine dependence, cigarettes, uncomplicated; F12.90 Cannabis use, unspecified, uncomplicated; R16.0 Hepatomegaly, not elsewhere classified; E83.42 Hypomagnesemia; Z90.710 Acquired absence of both cervix and uterus
CPT/HCPCS: 36415; 36600; 71045; 72132; 74177; 80048; 80053; 80307; 81001; 82010; 82805; 82947; 82948; 83036; 83605; 83735; 84100; 84132; 84484; 85025; 85027; 86850; 86900; 86901; 87040; 93005; 96361; 96365; 96368; 96375; 96376; 99285; A9270; J1815; J2060; J2405; J2765; J3475; J3480; J7030; J7042; Q9965

== ENCOUNTER 2020-06-26 10:39 | Emergency (ER) | payer OTHER, SELFPAY ==
--- NOTE | ~2020-06-26 | CT_ITS ---
EXAMINATION: CT BRAIN W/O DATE: 06/26/2020 11:24 INDICATION: History of seizures. TECHNIQUE: Computed tomography (CT) of the head was performed without intravenous contrast. The dose- length product was 605.33 mGy-cm. Automated exposure control and iterative reconstruction technique w ere employed. COMPARISON: No prior studies for comparison. FINDINGS: Normal brain parenchymal volume for age. Normal link-white differentiation. No acute intrac ranial hemorrhage, infarction, mass or mass effect. No ventriculomegaly or midline shift. Midline sagittal images demonstrate a normal corpus callosum, c raniovertebral junction and sella turcica. Basilar cisterns are patent. Paranasal sinuses and mastoids are pneumatized. No depressed skull fractures. IMPRESSION: 1. No acute intracranial abnormality. Reviewed, dictated and finalized at location A. [employer]
--- NOTE | 2020-06-26 10:43 | ECG_ITS ---
Measurements Intervals [place] Rate: 80 P: 38 AR: 134 QRS: 77 QRSD: 78 T: 62 QT: 374 QTc: 433 Interpretive Statements SINUS RHYTHM CANNOT RULE OUT SEPTAL INFARCT, AGE INDETERMINATE BASELINE ARTIFACT- I, II, III, AVR, AVL, AVF ABNORMAL ECG Electronically Signed On 06-27-2020 7:24:37 SMELTER LINER by Pete Hernandez D.O.
[2020-06-26 10:51] VITALS: BP 109/84; PULSE 84; RESP 16; TEMP 36.7; O2SAT 95
[2020-06-26] MEDS: NALOXONE HCL INJ 2 MG/2 ML AMP 4 MG IV PUSH (10:59)
[2020-06-26] MEDS: SODIUM CHLORIDE 0.9% IV 1,000 ML 999 ML IV CONT (11:00)
[2020-06-26 11:12] LABS: Basophils Absolute Auto 0.06 K/mm3 (0.00-0.10); Basophils Percent Auto 1.2 % (0.0-1.0); Eosinophils Absolute Auto 0.05 K/mm3 (0.02-0.50); Hematocrit 41.3 % (35.0-49.0); Hemoglobin 13.9 g/dL (12.0-15.0); Immature Granulocyte Absolute 0.01 K/mm3 (0.00-0.00); Immature Granulocyte Percent A 0.2 % (0.0-0.0); Lymphocytes Absolute Auto 1.68 K/mm3 (1.10-4.50); Lymphocytes Percent Auto 33.3 % (18.0-42.0); Mean Corpuscular HGB Conc 33.7 g/dL (32.0-36.0); Mean Corpuscular Hemoglobin 29.9 pg (27.0-31.0); Mean Corpuscular Volume 88.8 fL (78.0-102.0); Mean Platelet Volume 9.6 fl (9.2-11.8); Monocytes Absolute Auto 0.44 K/mm3 (0.10-0.90); Monocytes Percent Auto 8.7 % (2.0-11.0); Neutrophils Absolute Auto 2.8 K/mm3 (1.7-7.2); Neutrophils Percent Auto 55.6 % (50.0-70.0); Platelet Count Result 309 K/mm3 (150-420); Red Blood Count 4.65 M/mm3 (4.20-5.40); Red Cell Distribution Width 12.7 % (11.6-14.4)
[2020-06-26 11:15] LABS: Add Urine Microscopic? YES; Appearance Urine Sl Cloudy (Clear); Bilirubin Urine Negative (Negative); Blood Urine Negative (Negative); Color Urine Yellow (Yellow); Glucose Urine UA 1+ (Negative); Ketones Urine Negative (Negative); Leukocyte Esterase Ur Negative LEU/UL (Negative); Nitrate Urine Negative (Negative); Protein Urine Negative (Negative); Specific Grav Ur 1.025 (1.010-1.020); Urobilinogen Urine 0.2 mg/dL (0.2-1.0)
[2020-06-26 11:19] LABS: Bacteria Urine Trace /hpf; RBC Urine None seen /hpf (0-2); Squamous Epithelial Cell Urine Few /hpf (Few); WBC Urine 0-3 /hpf (0-3)
[2020-06-26 11:23] LABS: Amphetamine Screen Urine Negative (Negative); Barbiturate Screen Urine Negative (Negative); Benzodiazepines Screen Urine Negative (Negative); Cannabinoid Screen Urine Positive (Negative); Cocaine Screen Urine Negative (Negative); Methadone Screen Urine Negative (Negative); Opiate Screen Urine Negative (Negative); Phencyclidine Screen Urine Negative (Negative)
[2020-06-26 11:25] LABS: Pregnancy On Board Control Positive; Urine Pregnancy Test Negative
[2020-06-26 11:32] LABS: Alanine Aminotransferase 32 U/L (14-59); Albumin Level 4.1 g/dL (3.4-5.0); Alkaline Phosphatase 100 U/L (46-116); Anion Gap 9 mmol/L (8-16); Aspartate Amino Transferase 21 U/L (15-37); Bilirubin,Total 0.6 mg/dL (0.00-1.00); Blood Urea Nitrogen 18 mg/dL (7-18); Calcium 9.6 mg/dL (8.5-10.1); Carbon Dioxide 28 mmol/L (21-32); Chloride 99 mmol/L (98-108); Estimated CRCL calculation 45 ml/min; Estimated Glomerular Filt Rate > 60; Glucose 175 mg/dL (70-99); Osmolality Calculated 287 mOsm/kg (285-295); Potassium 4.2 mmol/L (3.5-5.1); Sodium 136 mmol/L (136-145); Total Protein 8.5 g/dL (6.4-8.2)
[2020-06-26 11:39] LABS: Creatine Kinase 55 U/L (26-192)
[2020-06-26] MEDS: ONDANSETRON INJ 4 MG/2 ML VIAL IV PUSH (11:51)
[2020-06-26 11:54] VITALS: BP 118/70; PULSE 85; RESP 18; O2SAT 99
--- NOTE | 2020-06-26 12:07 | ED.SEIZURE ---
HPI - Seizure General Chief Complaint: Altered Mental Status Stated Complaint: ambulance Source: patient and EMS Mode of arrival: EMS Limitations: no limitations History of Present Illness HPI Narrative: this is a 29-year-old female with a history of diabetes presents via EMS for a possible seizure activity while at home witnessed by her not sure if an actual seizure the patient was brought in by EMS and with some weakness and confusion initially did receive 4 of Narcan and the patient became more alert. Currently there is some nausea with no vomiting no abdominal pain no fever chills, no chest pain or shortness of breath no flank pain or dysuria. Patient recently discharged about 2 to 3 weeks ago was admitted for DKA but currently her blood sugars via EMS were 118 and repeat blood sugar was in the 120s. Patient is alert responding appropriately to questions and currently in no acute distress no seizure activity witnessed in the emergency department. complaint: possible seizure Onset (ago): hour(s) Description of Episode: loss of consciousness Witnessed: Yes - by Other Trauma: No Seizure History: No (as a baby, and Diabetic induced seizures, last one in 2017) Place: home Possible Precipitating Event: none Associated symptoms: weakness and other ( Nausea) Treatments prior to arrival: none Related Data Home Medications Medication Instructions Recorded Confirmed insulin lispro [Admelog U-100 3 unit CONTINUOUS SUBCUTANEOUS 07/25/19 06/26/20 Insulin lispro] INFUSION DIRECTED levothyroxine 50 mcg PO DAILY 12/16/19 06/26/20 Allergies Allergy/AdvReac Type Severity Reaction Status Date / Time Latex, Natural Rubber Allergy Severe Hives Verified 12/27/19 16:40 peanut oil Allergy Severe Difficulty Verified 12/27/19 16:40 Breathing metoclopramide [From Reglan] AdvReac Mild Anxiety Verified 12/27/19 16:40 Review of Systems Review of Systems: All systems reviewed & are unremarkable except as noted in HPI and below PMFSH Past Medical History Medical History (Updated 06/26/20 @ 12:13 by Mik Henley MD) Acute cervicitis Dysmenorrhea Endometritis GERD (gastroesophageal reflux disease) History of seizure As a child. History of UTI Hypothyroidism Ovarian cyst Type 1 diabetes mellitus Surgical History Surgical History H/O: hysterectomy 12/23/[address] san Status post cholecystectomy Status post endometrial ablation 08/06/19 Dr San. Status post ovarian cystectomy 08/06/19 Dr San. Status post tubal ligation 08/06/19 Dr San. Family History Family History Mother Lupus (systemic lupus erythematosus) Scleroderma Diabetes mellitus Heart disease Renal disease Cerebrovascular accident History of blood clots Grandparent Hypertension Father CAD (coronary artery disease) Social History Social History Social History: The patient lives in [place], [place] with her 8-year-old daughter. 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 She tells me she smokes 7-8 cigarettes a day for the last 10 years. She reports occasional marijuana use. She denies alcohol use. Her PCP is Dr. Rodney Grier. She designates her mother, Olya Rodriguez, as her surrogate decision maker and she is full code status. Smoking packs per day: 0.5 Smoking cigarettes per day: 10.0 Years smoked: 4 Smoking pack-years: 2.00 Smoking status: Current every day smoker Tobacco type: cigarettes Second hand tobacco smoke exposure: Yes Smoking end date: 12/22/19 Alcohol intake: never Drinks per week: 1 Substance use: current Substance use type: marijuana Last use: Patient reports last use of Marijuana about 3 weeks ago Gender identity (if verbalized by the patient): Female Spiritual care concerns: No
== END 2020-06-26 12:27 | disposition home or self-care (01) ==
PROVIDERS: Emergency Provider Emergency Medicine; PCP Family Medicine
DX: R56.9 Unspecified convulsions (principal); R11.2 Nausea with vomiting, unspecified
CPT/HCPCS: 36415; 70450; 80053; 80307; 81001; 81025; 82550; 85025; 93005; 96361; 96374; 96375; 99284; J2310; J2405; J7030

== ENCOUNTER 2020-08-03 08:43 | Outpatient (CLI) | payer OTHER, SELFPAY ==
--- NOTE | ~2020-08-03 | US_ITS ---
EXAMINATION: US right upper quadrant EXAM DATE: 08/03/2020 09:31 INDICATION: Elevated liver enzymes. TECHNIQUE: Multiple grayscale and Doppler images of the abdomen right upper quadrant were obtained (b y a technologist who performed the scan) and subsequently reviewed. There is no prior study for dilip barajas. FINDINGS: The pancreatic head and body are normal in appearance. The pancreatic tail is not visualized. The l iver has normal echogenicity and contour. There are no focal liver lesions identified. There is no evidence of intrahepatic biliary duct dilation. Portal venous flow was seen in the hepatopedal, nor mal direction and has normal Doppler waveform. No right-sided hydronephrosis. Common bile duct measures 5 mm, which is normal. The gallbladder fossa is unremarkable. IMPRESSION: 1. Unremarkable abdominal ultrasound exam. Reviewed, dictated and finalized at location B. WINDER
== END 2020-08-03 08:44 | disposition home or self-care (01) ==
LOC: CHSIMG 08:45
PROVIDERS: PCP Family Medicine; Visit Provider Family Medicine
DX: R74.8 Abnormal levels of other serum enzymes (principal)
CPT/HCPCS: 76705

== ENCOUNTER 2020-11-06 20:49 | Emergency (ER) | payer OTHER, SELFPAY ==
[2020-11-06 21:10] VITALS: BP 117/79; PULSE 110; RESP 20; TEMP 36.5; O2SAT 100
--- NOTE | 2020-11-06 21:18 | ED.NAVMDI ---
HPI - Nausea/Vomiting/Diarrhea General Chief complaint: Nausea/Vomiting/Diarrhea Stated complaint: not feeling well Time Seen by Provider: 11/06/20 21:10 Source: patient Mode of arrival: ambulatory Limitations: no limitations History of Present Illness HPI Narrative: This young woman comes in complaining of recurrent nausea and vomiting. she states that she has had nausea and vomiting for the last 2 days. He tells me she does not feel that she is in DKA. She says that her blood sugar was 237. She states that she has had no fever or chills. She states that she has had some nasal discharge. She has had some minimal cough. This has been nonproductive. she denies shortness of breath. She denies any specific abdominal pain. She denies dysuria. She consumes comes into the hospital because of recurring nausea, this has lasted most of the day off and on. Related Data Home Medications Medication Instructions Recorded Confirmed insulin lispro [Admelog U-100 3 unit CONTINUOUS SUBCUTANEOUS 07/25/19 11/06/20 Insulin lispro] INFUSION DIRECTED levothyroxine 50 mcg PO DAILY 12/16/19 11/06/20 sucralfate 1 gram tablet 1 g PO Q4H tablet 08/10/20 11/06/20 blood-glucose sensor [Dexcom G6 11/06/20 11/06/20 Sensor] citalopram 20 mg PO DAILY 11/06/20 11/06/20 pantoprazole 40 mg PO BID 11/06/20 11/06/20 Allergies Allergy/AdvReac Type Severity Reaction Status Date / Time Latex, Natural Rubber Allergy Severe Hives Verified 08/10/20 14:56 peanut oil Allergy Severe Difficulty Verified 08/10/20 14:56 Breathing metoclopramide [From Reglan] AdvReac Mild Anxiety Verified 08/10/20 14:56 Review of Systems Constitutional: Constitutional: Reports fatigue and Reports weakness Eyes: Eyes: Reports no additional eye complaints ENT: Comments: some nasal discharge mostly clear, but some green nasal discharge. Cardiovascular: Cardiovascular: Reports no additional cardiovascular complaints Respiratory: Respiratory: Reports no additional respiratory complaints Gastrointestinal: Gastrointestinal: Reports no additional gastrointestinal complaints Genitourinary: Genitourinary: Reports no additional female genitourinary complaints Musculoskeletal: Musculoskeletal: Reports no additional musculoskeletal complaints Integumentary/Breasts: Skin/Breast: Reports system reviewed and no additional complaints, except as docu Neurologic: Reports system reviewed and no additional complaints, except as documented Psychiatric: Psychiatric: Reports no additional psychiatric complaints Endocrine: Endocrine: Reports no additional endocrine complaints Hematologic/Lymphatic: Hematologic/Lymphatic: Reports no additional hematologic/lymphatic complaints Allergic/Immunologic: Allergic/Immunologic: Reports no additional allergic/immunologic complaints [facility] Past Medical History Medical History Acute cervicitis Dysmenorrhea Endometriosis Endometritis GERD (gastroesophageal reflux disease) History of seizure As a child. History of UTI Hypothyroidism Irritable bowel syndrome with constipation Ovarian cyst Type 1 diabetes mellitus Surgical History Surgical History H/O: hysterectomy 12/23/[address] san Status post cholecystectomy Status post endometrial ablation 08/06/19 Dr San. Status post ovarian cystectomy 08/06/19 Dr San. Status post tubal ligation 08/06/19 Dr San. Family History Family History Mother Lupus (systemic lupus erythematosus) Scleroderma Diabetes mellitus Heart disease Renal disease Cerebrovascular accident History of blood clots Grandparent Hypertension Father CAD (coronary artery disease) Social History Social History Social History: The patient lives in [place], [place] with her 8-year-old daug
[2020-11-06] MEDS: SODIUM CHLORIDE 0.9% IV 1,000 ML 500 ML IV CONT (21:40)
[2020-11-06 21:41] LABS: Basophils Absolute Auto 0.05 K/mm3 (0.00-0.10); Basophils Percent Auto 0.8 % (0.0-1.0); Eosinophils Absolute Auto 0.09 K/mm3 (0.02-0.50); Eosinophils Percent Auto 1.4 % (1.0-6.0); Hematocrit 40.3 % (35.0-49.0); Hemoglobin 13.7 g/dL (12.0-15.0); Immature Granulocyte Absolute 0.02 K/mm3 (0.00-0.00); Immature Granulocyte Percent A 0.3 % (0.0-0.0); Lymphocytes Absolute Auto 1.56 K/mm3 (1.10-4.50); Lymphocytes Percent Auto 24.3 % (18.0-42.0); Mean Corpuscular Hemoglobin 30.5 pg (27.0-31.0); Mean Corpuscular Volume 89.8 fL (78.0-102.0); Mean Platelet Volume 9.7 fl (9.2-11.8); Monocytes Absolute Auto 0.56 K/mm3 (0.10-0.90); Monocytes Percent Auto 8.7 % (2.0-11.0); Neutrophils Absolute Auto 4.1 K/mm3 (1.7-7.2); Neutrophils Percent Auto 64.5 % (50.0-70.0); Platelet Count Result 265 K/mm3 (150-420); Red Blood Count 4.49 M/mm3 (4.20-5.40); Red Cell Distribution Width 12.4 % (11.6-14.4); White Blood Count 6.4 K/mm3 (4.8-10.8)
[2020-11-06] MEDS: ONDANSETRON INJ 4 MG/2 ML VIAL IV PUSH (21:45)
[2020-11-06 21:59] LABS: Add Urine Microscopic? YES; Appearance Urine Clear (Clear); Bilirubin Urine 2+ (Negative); Blood Urine Negative (Negative); Color Urine Yellow (Yellow); Glucose Urine UA 3+ (Negative); Ketones Urine 3+ (Negative); Leukocyte Esterase Ur Negative (Negative); Nitrate Urine Negative (Negative); Protein Urine Negative (Negative); Specific Grav Ur 1.025 (1.010-1.020); Urobilinogen Urine 0.2 mg/dL (0.2-1.0)
[2020-11-06 22:01] LABS: Alanine Aminotransferase 22 U/L (14-59); Albumin Level 3.8 g/dL (3.4-5.0); Alkaline Phosphatase 142 U/L (46-116); Anion Gap 11 mmol/L (8-16); Aspartate Amino Transferase 14 U/L (15-37); Bilirubin,Total 0.7 mg/dL (0.00-1.00); Blood Urea Nitrogen 19 mg/dL (7-18); Calcium 9.7 mg/dL (8.5-10.1); Carbon Dioxide 28 mmol/L (21-32); Chloride 96 mmol/L (98-108); Estimated CRCL calculation 55 ml/min; Estimated Glomerular Filt Rate > 60; Glucose 237 mg/dL (70-99); Osmolality Calculated 290 mOsm/kg (285-295); Potassium 4.2 mmol/L (3.5-5.1); Sodium 135 mmol/L (136-145); Total Protein 8.4 g/dL (6.4-8.2)
[2020-11-06 22:03] LABS: RBC Urine None seen /hpf (0-2); WBC Urine 0-3 /hpf (0-3)
[2020-11-06 22:05] LABS: Lactic Acid Reflex 1.6 mmol/L (0.4-2.0)
[2020-11-06 22:05] LABS: Squamous Epithelial Cell Urine Few /hpf (Few)
[2020-11-06 22:06] LABS: Bacteria Urine Trace /hpf
[2020-11-06 22:07] LABS: Mucus Urine Few /lpf
[2020-11-06] MEDS: LACTATED RINGERS 1,000 ML 500 ML IV CONT (22:16)
[2020-11-06] MEDS: MAG HYDROX/ALUMINUM HYD/SIMETH 30 ML, PHENobarb/HYOSCY/ATROPINE/SCOP 32.4 MG, LIDOCAINE... PO (22:20)
[2020-11-06 22:25] VITALS: BP 118/76; PULSE 105; RESP 20; O2SAT 100
[2020-11-06 22:36] VITALS: BP 119/76; PULSE 97; RESP 20; TEMP 36.4; O2SAT 97
== END 2020-11-06 23:09 | disposition home or self-care (01) ==
PROVIDERS: Emergency Provider Emergency Medicine; PCP Family Medicine
DX: R11.2 Nausea with vomiting, unspecified (principal)
CPT/HCPCS: 36415; 80053; 81001; 83605; 85025; 96361; 96374; 99283; 99284; A9270; J2405; J7030; J7120

== ENCOUNTER 2020-11-07 09:06 | Emergency (ER) | payer OTHER, SELFPAY ==
[2020-11-07 09:15] VITALS: BP 110/80; PULSE 101; RESP 15; TEMP 37; O2SAT 100
[2020-11-07 09:21] LABS: Glucose Point of Care 280 (65-105)
--- NOTE | 2020-11-07 09:27 | ED.NAVMDI ---
HPI - Nausea/Vomiting/Diarrhea General Chief complaint: Nausea/Vomiting/Diarrhea Stated complaint: sick Source: patient and RN notes reviewed Mode of arrival: wheelchair Limitations: no limitations History of Present Illness HPI Narrative: patient was seen last evening for same complaints. No evidence of DKA at that time. The pharmacy has not been opened so she has not been able to get her anti emetics. She received 2 L of fluid and antiemetics in the ER last evening and discharged home. She continues to have some nausea and vomiting at home she has not been able the eat. MD elicited complaint: nausea and vomiting Onset (ago): day(s) (2) Description of vomiting: bilious Associated nausea: Yes Associated abdominal pain: Yes Location of pain: diffuse ( Sore from vomiting) Severity: moderate Quality: cramping Exacerbating factors: vomiting Relieving factors: none Associated symptoms: weakness Related Data Home Medications Medication Instructions Recorded Confirmed insulin lispro [Admelog U-100 3 unit CONTINUOUS SUBCUTANEOUS 07/25/19 11/07/20 Insulin lispro] INFUSION DIRECTED levothyroxine 50 mcg PO DAILY 12/16/19 11/07/20 sucralfate 1 gram tablet 1 g PO Q4H tablet 08/10/20 11/07/20 blood-glucose sensor [Dexcom G6 11/06/20 11/07/20 Sensor] citalopram 20 mg PO DAILY 11/06/20 11/07/20 pantoprazole 40 mg PO BID 11/06/20 11/07/20 Allergies Allergy/AdvReac Type Severity Reaction Status Date / Time Latex, Natural Rubber Allergy Severe Hives Verified 08/10/20 14:56 peanut oil Allergy Severe Difficulty Verified 08/10/20 14:56 Breathing metoclopramide [From Reglan] AdvReac Mild Anxiety Verified 08/10/20 14:56 Review of Systems Review of Systems: All systems reviewed & are unremarkable except as noted in HPI and below Constitutional: Constitutional: Denies chills, Denies fever(s) and Reports weakness Cardiovascular: Cardiovascular: Reports no additional cardiovascular complaints Respiratory: Respiratory: Reports no additional respiratory complaints Gastrointestinal: Gastrointestinal: Reports as per HPI Genitourinary: Genitourinary: Reports no additional female genitourinary complaints Musculoskeletal: Musculoskeletal: Reports no additional musculoskeletal complaints PMFSH Past Medical History Medical History Acute cervicitis Dysmenorrhea Endometriosis Endometritis GERD (gastroesophageal reflux disease) History of seizure As a child. History of UTI Hypothyroidism Irritable bowel syndrome with constipation Ovarian cyst Type 1 diabetes mellitus Surgical History Surgical History H/O: hysterectomy 12/23/[address] san Status post cholecystectomy Status post endometrial ablation 08/06/19 Dr San. Status post ovarian cystectomy 08/06/19 Dr San. Status post tubal ligation 08/06/19 Dr San. Family History Family History Mother Lupus (systemic lupus erythematosus) Scleroderma Diabetes mellitus Heart disease Renal disease Cerebrovascular accident History of blood clots Grandparent Hypertension Father CAD (coronary artery disease) Social History Social History Social History: The patient lives in [place], [place] with her 8-year-old daughter. 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 She tells me she smokes 7-8 cigarettes a day for the last 10 years. She reports occasional marijuana use. She denies alcohol use. Her PCP is Dr. Rodney Grier. She designates her mother, Olya Rodriguez, as her surrogate decision maker and she is full code status. Smoking packs per day: 0.5 Smoking cigarettes per day: 10.0 Years smoked: 4 Smoking pack-years: 2.00 Smoking status: Current some day smoker Tobacco type: cigarettes Second hand to
[2020-11-07] MEDS: SODIUM CHLORIDE 0.9% IV 1,000 ML 999 ML (09:30)
[2020-11-07] MEDS: ONDANSETRON INJ 4 MG/2 ML VIAL IV PUSH ×2 (09:31→12:45)
[2020-11-07 09:40] LABS: Add Urine Microscopic? YES; Appearance Urine Clear (Clear); Bilirubin Urine 1+ (Negative); Blood Urine Negative (Negative); Color Urine Yellow (Yellow); Glucose Urine UA 2+ (Negative); Ketones Urine 3+ (Negative); Leukocyte Esterase Ur Negative LEU/UL (Negative); Nitrate Urine Negative (Negative); Protein Urine Negative (Negative); Specific Grav Ur 1.025 (1.010-1.020); Urobilinogen Urine 0.2 mg/dL (0.2-1.0); pH Urine 5.5 (5.0-8.0)
[2020-11-07 09:44] LABS: Bacteria Urine Trace /hpf; RBC Urine None seen /hpf (0-2); Squamous Epithelial Cell Urine Few /hpf (Few); WBC Urine 0-3 /hpf (0-3)
[2020-11-07 10:03] LABS: Base Excess ABG -3.9 mmol/L (0-2); Oxygen Saturation ABG 96.1 % (95-97); Oxyhemoglobin 95.1 % (94-100); PCO2 ABG 37.6 mmHg (35-45); PO2 ABG 83.5 mmHg (80-90); Total Hemoglobin 11.9 g/dL; pH ABG 7.37 (7.35-7.45)
[2020-11-07 10:04] LABS: Device ROOM AIR; Site Drawn LEFT BRACHIAL
[2020-11-07 10:06] LABS: Basophils Absolute Auto 0.03 K/mm3 (0.00-0.10); Basophils Percent Auto 0.4 % (0.0-1.0); Eosinophils Absolute Auto 0.08 K/mm3 (0.02-0.50); Eosinophils Percent Auto 1.2 % (1.0-6.0); Hematocrit 34.3 % (35.0-49.0); Hemoglobin 11.4 g/dL (12.0-15.0); Immature Granulocyte Absolute 0.02 K/mm3 (0.00-0.00); Immature Granulocyte Percent A 0.3 % (0.0-0.0); Lymphocytes Absolute Auto 1.39 K/mm3 (1.10-4.50); Lymphocytes Percent Auto 20.4 % (18.0-42.0); Mean Corpuscular HGB Conc 33.2 g/dL (32.0-36.0); Mean Corpuscular Hemoglobin 30.2 pg (27.0-31.0); Mean Platelet Volume 10.4 fl (9.2-11.8); Monocytes Absolute Auto 0.51 K/mm3 (0.10-0.90); Monocytes Percent Auto 7.5 % (2.0-11.0); Neutrophils Absolute Auto 4.8 K/mm3 (1.7-7.2); Neutrophils Percent Auto 70.2 % (50.0-70.0); Platelet Count Result 204 K/mm3 (150-420); Red Blood Count 3.77 M/mm3 (4.20-5.40); Red Cell Distribution Width 12.3 % (11.6-14.4); White Blood Count 6.8 K/mm3 (4.8-10.8)
[2020-11-07] MEDS: PROMETHAZINE HCL 25 MG/ML AMPUL (10:08)
[2020-11-07 10:21] LABS: Alanine Aminotransferase 17 U/L (14-59); Alkaline Phosphatase 115 U/L (46-116); Anion Gap 18 mmol/L (8-16); Aspartate Amino Transferase 14 U/L (15-37); Bilirubin,Total 0.7 mg/dL (0.00-1.00); Blood Urea Nitrogen 15 mg/dL (7-18); Calcium 8.2 mg/dL (8.5-10.1); Carbon Dioxide 18 mmol/L (21-32); Chloride 98 mmol/L (98-108); Estimated Glomerular Filt Rate > 60; Glucose 291 mg/dL (70-99); Osmolality Calculated 289 mOsm/kg (285-295); Sodium 134 mmol/L (136-145); Total Protein 6.6 g/dL (6.4-8.2)
[2020-11-07 10:22] LABS: Lipase 31 U/L (73-393)
[2020-11-07 10:26] LABS: Lactic Acid Reflex 0.9 mmol/L (0.4-2.0)
[2020-11-07] MEDS: LACTATED RINGERS 1,000 ML 999 ML IV CONT (11:00)
[2020-11-07] MEDS: INSULIN HUMAN REGULAR (*BKC) 100 UNITS/ML 12 UNITS SUB-Q (11:00)
[2020-11-07 11:59] LABS: Glucose Point of Care 132 (65-105)
[2020-11-07 12:10] VITALS: BP 106/70
== END 2020-11-07 12:10 | disposition home or self-care (01) ==
PROVIDERS: Emergency Provider Emergency Medicine; PCP Family Medicine
DX: R11.2 Nausea with vomiting, unspecified (principal)
CPT/HCPCS: 36415; 36600; 80053; 81001; 82805; 82948; 83605; 83690; 85025; 96361; 96374; 96375; 96376; 99283; 99284; J1815; J2405; J2550; J7030; J7120

== ENCOUNTER 2021-04-01 04:39 | Emergency (ER) | payer OTHER, SELFPAY ==
--- NOTE | ~2021-04-01 | CT_ITS ---
EXAMINATION: CT abdomen pelvis wo con DATE: 04/01/2021 05:33 INDICATION: Mid abdominal pain. Nausea and vomiting. TECHNIQUE: Computed tomography (CT) of the abdomen and pelvis was performed without intravenous contr ast. Automated exposure control and iterative reconstruction technique were employed. The dose-length product was 185.90 mGy-cm. COMPARISON: CT abdomen and pelvis 06/10/2020 FINDINGS: The visualized portions of the lung bases are clear without pneumonia or pleural effusion. The heart size is normal. No pericardial effusion. The liver demonstrates focal steatosis adjacent to ligamentum teres. Again seen is a 2.3 cm mass in the liver, most likely a hemangioma or focal nodula r hyperplasia. There are changes of cholecystectomy. The spleen, pancreas, adrenal glands, and kidney s are normal. There is no urolithiasis. There are no dilated loops of bowel. The appendix is normal. There are no pathologically enlarged lymph nodes. There is no free intraperitoneal fluid. The bones a re unremarkable. IMPRESSION: 1. No etiology for the patient's symptoms. Reviewed, dictated and finalized at location A.
[2021-04-01] MEDS: SODIUM CHLORIDE 0.9% IV 1,000 ML 999 ML IV CONT (04:39)
[2021-04-01 04:52] VITALS: BP 112/60; PULSE 106; RESP 16; TEMP 35.8; O2SAT 98
[2021-04-01] MEDS: METOCLOPRAMIDE HCL INJ 10 MG/2 ML VIAL IV PUSH (04:52)
--- NOTE | 2021-04-01 05:31 | PC.NURSE ---
PT CONTINUES WITH VOMITING PHLEGM BROWNISH IN COLOR.
[2021-04-01 05:42] LABS: Basophils Absolute Auto 0.05 K/mm3 (0.00-0.10); Basophils Percent Auto 0.8 % (0.0-1.0); Eosinophils Absolute Auto 0.03 K/mm3 (0.02-0.50); Eosinophils Percent Auto 0.5 % (1.0-6.0); Hematocrit 39.8 % (35.0-49.0); Hemoglobin 13.4 g/dL (12.0-15.0); Immature Granulocyte Absolute 0.02 K/mm3 (0.00-0.00); Immature Granulocyte Percent A 0.3 % (0.0-0.0); Lymphocytes Absolute Auto 1.71 K/mm3 (1.10-4.50); Lymphocytes Percent Auto 26.4 % (18.0-42.0); Mean Corpuscular HGB Conc 33.7 g/dL (32.0-36.0); Mean Corpuscular Hemoglobin 30.6 pg (27.0-31.0); Mean Corpuscular Volume 90.9 fL (78.0-102.0); Mean Platelet Volume 9.4 fl (9.2-11.8); Monocytes Absolute Auto 0.46 K/mm3 (0.10-0.90); Monocytes Percent Auto 7.1 % (2.0-11.0); Neutrophils Absolute Auto 4.2 K/mm3 (1.7-7.2); Neutrophils Percent Auto 64.9 % (50.0-70.0); Platelet Count Result 289 K/mm3 (150-420); Red Blood Count 4.38 M/mm3 (4.20-5.40); Red Cell Distribution Width 12.2 % (11.6-14.4); White Blood Count 6.5 K/mm3 (4.8-10.8)
[2021-04-01] MEDS: SODIUM CHLORIDE 0.9% IV 1,000 ML 999 ML (05:48)
[2021-04-01 05:59] LABS: Alanine Aminotransferase 20 U/L (14-59); Albumin Level 4.2 g/dL (3.4-5.0); Alkaline Phosphatase 95 U/L (46-116); Anion Gap 21 mmol/L (8-16); Aspartate Amino Transferase 18 U/L (15-37); Bilirubin,Total 0.7 mg/dL (0.00-1.00); Blood Urea Nitrogen 25 mg/dL (7-18); Calcium 9.3 mg/dL (8.5-10.1); Carbon Dioxide 18 mmol/L (21-32); Chloride 96 mmol/L (98-108); Estimated CRCL calculation 51 ml/min; Estimated Glomerular Filt Rate 59; Glucose 305 mg/dL (70-99); Lipase 25 U/L (73-393); Osmolality Calculated 295 mOsm/kg (285-295); Potassium 4.1 mmol/L (3.5-5.1); Sodium 135 mmol/L (136-145)
[2021-04-01 06:02] LABS: Lactic Acid Reflex 1.7 mmol/L (0.4-2.0)
[2021-04-01 06:04] LABS: Troponin I < 4.0 ng/L (0.00-60.4)
[2021-04-01 06:12] LABS: Add Urine Microscopic? YES; Appearance Urine Clear (Clear); Bilirubin Urine Negative (Negative); Blood Urine Negative (Negative); Color Urine Light Yellow (Yellow); Glucose Urine UA 2+ (Negative); Ketones Urine 3+ (Negative); Leukocyte Esterase Ur Negative (Negative); Nitrate Urine Negative (Negative); Protein Urine Negative (Negative); Specific Grav Ur >= 1.030 (1.010-1.020); Urobilinogen Urine 0.2 mg/dL (0.2-1.0); pH Urine 5.5 (5.0-8.0)
[2021-04-01 06:16] LABS: Bacteria Urine Trace /hpf; RBC Urine None seen /hpf (0-2); Squamous Epithelial Cell Urine Few /hpf (Few); WBC Urine 0-3 /hpf (0-3)
--- NOTE | 2021-04-01 06:35 | ED.ABDPAIN ---
HPI - Abdominal Pain General Chief Complaint: Abdominal Pain Stated Complaint: Vomiting Source: patient and EMS Mode of arrival: EMS Limitations: no limitations History of Present Illness HPI narrative: this is a 30-year-old insulin-dependent diabetic presents via EMS with abdominal pain with nausea vomiting over the past few days has had lower blood sugars and currently via EMS her blood sugars were in the low 200s. The patient recently had dental extraction was put on antibiotics. Currently afebrile with no shortness of breath no chest pain no dysuria. MD elicited complaint: abdominal pain Onset (ago): day(s) Pain Consistency: intermittent Location: diffuse Severity: mild Quality: aching Related Data Home Medications Medication Instructions Recorded Confirmed insulin lispro [Admelog U-100 3 unit CONTINUOUS SUBCUTANEOUS 07/25/19 04/01/21 Insulin lispro] INFUSION DIRECTED levothyroxine 50 mcg PO DAILY 12/16/19 04/01/21 blood-glucose sensor [Dexcom G6 11/06/20 04/01/21 Sensor] pantoprazole 40 mg PO BID 11/06/20 04/01/21 Allergies Allergy/AdvReac Type Severity Reaction Status Date / Time Latex, Natural Rubber Allergy Severe Hives Verified 08/10/20 14:56 peanut oil Allergy Severe Difficulty Verified 08/10/20 14:56 Breathing Review of Systems Review of Systems: All systems reviewed & are unremarkable except as noted in HPI and below PMFSH Past Medical History Medical History Acute cervicitis Dysmenorrhea Endometriosis Endometritis GERD (gastroesophageal reflux disease) History of seizure As a child. History of UTI Hypothyroidism Irritable bowel syndrome with constipation Ovarian cyst Type 1 diabetes mellitus Surgical History Surgical History H/O: hysterectomy 12/23/[address] san Status post cholecystectomy Status post endometrial ablation 08/06/19 Dr San. Status post ovarian cystectomy 08/06/19 Dr San. Status post tubal ligation 08/06/19 Dr San. Family History Family History Mother Lupus (systemic lupus erythematosus) Scleroderma Diabetes mellitus Heart disease Renal disease Cerebrovascular accident History of blood clots Grandparent Hypertension Father CAD (coronary artery disease) Social History Social History Social History: The patient lives in [place], [place] with her 8-year-old daughter. 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 She tells me she smokes 7-8 cigarettes a day for the last 10 years. She reports occasional marijuana use. She denies alcohol use. Her PCP is Dr. Rodney Grier. She designates her mother, Olya Rodriguez, as her surrogate decision maker and she is full code status. Smoking packs per day: 0.5 Smoking cigarettes per day: 10.0 Years smoked: 4 Smoking pack-years: 2.00 Smoking status: Current some day smoker Tobacco type: cigarettes Second hand tobacco smoke exposure: Yes Smoking end date: 12/22/19 Alcohol intake: never Drinks per week: 1 Substance use: current Substance use type: marijuana Last use: Patient reports last use of Marijuana about 3 weeks ago Gender identity (if verbalized by the patient): Female Sexual Orientation (if Verbalized by the Patient): Straight or Heterosexual Spiritual care concerns: No Agree to blood products: Yes Exam Const: General: no acute distress and alert Orientation/consciousness: patient oriented x3 HENMT: Head: normal to inspection Eyes: Conjunctivae: conjunctivae normal Pupils: Equal, round and reactive pupils present Neck: Neck: normal visual inspection Chest: Chest palpation & inspection: normal inspection of the chest Resp: Effort & Inspection: normal respiratory effort Auscultation: clear t
[2021-04-01 06:39] VITALS: BP 105/62; PULSE 99; RESP 20; TEMP 36.3; O2SAT 99
[2021-04-01] MEDS: METOCLOPRAMIDE HCL 10 MG TABLET PO (06:43)
== END 2021-04-01 06:58 | disposition home or self-care (01) ==
PROVIDERS: Emergency Provider Emergency Medicine; PCP Family Medicine
DX: E10.8 Type 1 diabetes mellitus with unspecified complications (principal); Z79.4 Long term (current) use of insulin; R11.2 Nausea with vomiting, unspecified
CPT/HCPCS: 36415; 74176; 80053; 81001; 83605; 83690; 84484; 85025; 96361; 96374; 99283; 99284; A9270; J2765; J7030

== ENCOUNTER 2021-05-30 13:12 | Outpatient (CLI) | payer OTHER, SELFPAY ==
--- NOTE | ~2021-05-30 | XR_ITS ---
EXAMINATION: XR ankle RT min 3V, XR foot RT min 3V EXAM DATE: 05/30/2021 13:45 INDICATION: Ankle and foot joint pain after jumping yesterday. Initial encounter. TECHNIQUE: Right foot dorsoplantar, lateral and oblique projections obtained and reviewed. Right ank le frontal, lateral and oblique projections obtained and reviewed. There is no prior study for samy oden. FINDINGS: Right metatarsal bones unremarkable. The right ankle mortise appears intact. There are no acute fractures or dislocations identified. There is no subcutaneous gas. The soft tissue is un remarkable. There are no radiopaque foreign bodies. IMPRESSION: Unremarkable right foot, ankle exam. Reviewed, dictated and finalized at location A. [employer] IMPRESSION: Unremarkable right foot, ankle exam.
--- NOTE | ~2021-05-30 | XR_ITS ---
EXAMINATION: XR ankle LT min 3V, XR foot LT min 3V EXAM DATE: 05/30/2021 13:45 (accession [id number]), 05/30/2021 13:46 (accession [id number]) INDICATION: Ankle and foot joint pain after jumping yesterday. TECHNIQUE: Left foot dorsoplantar, lateral and oblique projections obtained and reviewed. Left ankle frontal, lateral and oblique projections obtained and reviewed. There is no prior study for compari son. FINDINGS: Left metatarsal bones unremarkable. The left ankle mortise appears intact. There are no acute fractures or dislocations identified. There is no subcutaneous gas. The soft tissue is unrem arkable. There are no radiopaque foreign bodies. IMPRESSION: Unremarkable left ankle, foot exam. Reviewed, dictated and finalized at location A. SHAPER GRINDER IMPRESSION: Unremarkable left ankle, foot exam.
== END 2021-05-30 13:13 | disposition home or self-care (01) ==
LOC: CHSIMG 13:14
PROVIDERS: PCP Family Medicine; Visit Provider Family Medicine
DX: M24.9 Joint derangement, unspecified (principal)
CPT/HCPCS: 73610; 73630

== ENCOUNTER 2021-06-08 10:01 | Emergency (ER) | payer OTHER, SELFPAY ==
--- NOTE | ~2021-06-08 | CT_ITS ---
EXAMINATION: CT diagnostic chest wo con DATE: 06/08/2021 13:23 INDICATION: Left pleuritic chest pain for 6 months swelling and pain in the feet for 2 weeks. Smoker. TECHNIQUE: Computed tomography (CT) of the chest was performed without intravenous contrast. Automate d exposure control and iterative reconstruction technique were employed. Exam dose: 128.65 mGy-cm to mario exam DLP. COMPARISON: 06/10/2020 portable AP chest FINDINGS: There is focal atelectasis/consolidation at the medial segment of the middle lobe and minim al groundglass infiltrates of the remainder of the middle lobe. Mild bilateral apical scarring. Occasional probable calcified pulmonary granulomas. Normal heart size. No pericardial or pleural effusion. No hilar or mediastinal mass lesion or lymphad enopathy is evident. No thoracic aortic aneurysm. Normal morphology of the adrenal glands. Status post cholecystectomy. IMPRESSION: Medial segment middle lobe focal atelectasis/consolidation and scattered mild groundglas s infiltrates of the remainder of the middle lobe, suggesting middle pneumonia Reviewed, dictated and finalized at Location A. Reviewed, dictated and finalized at location A. OL BASED THERAPIST IMPRESSION: Medial segment middle lobe focal atelectasis/consolidation and sca ttered mild groundglass infiltrates of the remainder of the middle lobe, sugges ting middle pneumonia
[2021-06-08 12:54] VITALS: BP 112/81; PULSE 95; RESP 20; TEMP 37.1; O2SAT 100
--- NOTE | 2021-06-08 12:55 | ECG_ITS ---
Measurements Intervals [place] Rate: 91 P: 36 MS: 120 QRS: 80 QRSD: 78 T: 25 QT: 353 QTc: 435 Interpretive Statements SINUS RHYTHM CANNOT RULE OUT SEPTAL INFARCT, AGE INDETERMINATE NONSPECIFIC T-WAVE ABNORMALITY- INFERIOR LEADS BASELINE ARTIFACT- I, II, III, AVR, AVL, AVF, V1-V6 ABNORMAL ECG Electronically Signed On 06-08-2021 14:20:03 CATTERY OPERATOR by Pete Hernandez D.O.
[2021-06-08] MEDS: ACETAMINOPHEN 325 MG TABLET 650 MG PO (13:28)
[2021-06-08] MEDS: PROMETHAZINE HCL 25 MG/ML AMPUL IM (13:29)
[2021-06-08] MEDS: FUROSEMIDE INJ 40 MG/4 ML VIAL IV PUSH (13:29)
[2021-06-08 13:46] LABS: Basophils Absolute Auto 0.04 K/mm3 (0.00-0.10); Basophils Percent Auto 0.7 % (0.0-1.0); Eosinophils Absolute Auto 0.09 K/mm3 (0.02-0.50); Eosinophils Percent Auto 1.5 % (1.0-6.0); Hematocrit 41.4 % (35.0-49.0); Hemoglobin 13.9 g/dL (12.0-15.0); Immature Granulocyte Absolute 0.01 K/mm3 (0.00-0.00); Immature Granulocyte Percent A 0.2 % (0.0-0.0); Lymphocytes Absolute Auto 2.08 K/mm3 (1.10-4.50); Mean Corpuscular HGB Conc 33.6 g/dL (32.0-36.0); Mean Corpuscular Hemoglobin 30.8 pg (27.0-31.0); Mean Corpuscular Volume 91.8 fL (78.0-102.0); Mean Platelet Volume 9.3 fl (9.2-11.8); Monocytes Absolute Auto 0.41 K/mm3 (0.10-0.90); Monocytes Percent Auto 6.7 % (2.0-11.0); Neutrophils Absolute Auto 3.5 K/mm3 (1.7-7.2); Neutrophils Percent Auto 56.9 % (50.0-70.0); Platelet Count Result 407 K/mm3 (150-420); Red Blood Count 4.51 M/mm3 (4.20-5.40); Red Cell Distribution Width 11.7 % (11.6-14.4); White Blood Count 6.1 K/mm3 (4.8-10.8)
[2021-06-08 14:01] LABS: Lactic Acid Reflex 0.9 mmol/L (0.4-2.0)
[2021-06-08 14:05] LABS: Alanine Aminotransferase 15 U/L (14-59); Alkaline Phosphatase 195 U/L (46-116); Anion Gap 12 mmol/L (8-16); Aspartate Amino Transferase 10 U/L (15-37); Bilirubin,Total 0.4 mg/dL (0.00-1.00); Blood Urea Nitrogen 14 mg/dL (7-18); Calcium 9.8 mg/dL (8.5-10.1); Carbon Dioxide 29 mmol/L (21-32); Chloride 96 mmol/L (98-108); Estimated CRCL calculation 54 ml/min; Estimated Glomerular Filt Rate > 60; Glucose 108 mg/dL (70-99); NT Pro B Type Natriuretic Pept 75 pg/mL (0-125); Osmolality Calculated 285 mOsm/kg (285-295); Potassium 3.9 mmol/L (3.5-5.1); Sodium 137 mmol/L (136-145); Total Protein 8.9 g/dL (6.4-8.2)
[2021-06-08 14:08] LABS: Troponin I < 4.0 ng/L (0.00-60.4)
[2021-06-08 14:34] LABS: Add Urine Microscopic? NO; Appearance Urine Clear (Clear); Bilirubin Urine Negative (Negative); Blood Urine Negative (Negative); Color Urine Light Yellow (Yellow); Glucose Urine UA Negative (Negative); Ketones Urine Negative (Negative); Leukocyte Esterase Ur Negative (Negative); Nitrate Urine Negative (Negative); Protein Urine Negative (Negative); Urobilinogen Urine 0.2 mg/dL (0.2-1.0)
[2021-06-08] MEDS: AZITHROMYCIN 250 MG TABLET 500 MG PO (15:59)
--- NOTE | 2021-06-08 16:04 | PHAR ---
06/08/21: DISCUSSED POTENTIAL ALLERGY INTXN OF PT.'S PEANUT ALLERGY WITH ANGELYNN. AZITHROMYCIN CAN POTENTIALLY HAVE SOY LECITHIN IN IT, WHICH CAN HAVE PEANUT PROTEIN. PT IS GOING TO BE CLOSELY MONITORED. TLS
--- NOTE | 2021-06-08 16:13 | ED.GENADULT ---
HPI - General Adult General Chief complaint: Unspecified Stated complaint: both legs swollen and painful diabetic Time Seen by Provider: 06/08/21 10:05 Source: patient and RN notes reviewed Mode of arrival: wheelchair Limitations: no limitations History of Present Illness complaint: mild leg swelling, persistent Onset (ago): day(s) (2) Location: lower extremity Radiation: non-radiation Severity: mild Severity scale (1-10): 2 Quality: dull Pain Consistency: constant Relieving factors: none Exacerbating factors: movement Associated symptoms: denies other symptoms Treatments prior to arrival: none Related Data Home Medications Medication Instructions Recorded Confirmed insulin lispro [Admelog U-100 3 unit CONTINUOUS SUBCUTANEOUS 07/25/19 06/08/21 Insulin lispro] INFUSION DIRECTED levothyroxine 50 mcg PO DAILY 12/16/19 06/08/21 blood-glucose sensor [Dexcom G6 11/06/20 04/01/21 Sensor] Allergies Allergy/AdvReac Type Severity Reaction Status Date / Time Latex, Natural Rubber Allergy Severe Hives Verified 06/08/21 14:40 peanut oil Allergy Severe Difficulty Verified 06/08/21 14:40 Breathing Review of Systems Review of Systems: All systems reviewed & are unremarkable except as noted in HPI and below PMFSH Past Medical History Medical History Acute cervicitis Dysmenorrhea Endometriosis Endometritis GERD (gastroesophageal reflux disease) History of seizure As a child. History of UTI Hypothyroidism Irritable bowel syndrome with constipation Ovarian cyst Type 1 diabetes mellitus Surgical History Surgical History H/O: hysterectomy 12/23/[address] san Status post cholecystectomy Status post endometrial ablation 08/06/19 Dr San. Status post ovarian cystectomy 08/06/19 Dr San. Status post tubal ligation 08/06/19 Dr San. Family History Family History Mother Lupus (systemic lupus erythematosus) Scleroderma Diabetes mellitus Heart disease Renal disease Cerebrovascular accident History of blood clots Grandparent Hypertension Father CAD (coronary artery disease) Social History Social History Social History: The patient lives in [place], [place] with her 8-year-old daughter. 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 She tells me she smokes 7-8 cigarettes a day for the last 10 years. She reports occasional marijuana use. She denies alcohol use. Her PCP is Dr. Rodney Grier. She designates her mother, Olya Rodriguez, as her surrogate decision maker and she is full code status. Smoking packs per day: 0.5 Smoking cigarettes per day: 10.0 Years smoked: 4 Smoking pack-years: 2.00 Smoking status: Current some day smoker Tobacco type: cigarettes Second hand tobacco smoke exposure: Yes Smoking end date: 12/22/19 Alcohol intake: never Drinks per week: 1 Substance use: current Substance use type: marijuana Last use: Patient reports last use of Marijuana about 3 weeks ago Gender identity (if verbalized by the patient): Female Sexual Orientation (if Verbalized by the Patient): Straight or Heterosexual Spiritual care concerns: No Agree to blood products: Yes Exam Const: General: cooperative and comfortable Nutritional Appearance: thin Orientation/consciousness: oriented to person Limitations: no limitations HENMT: Head: normal to inspection, normocephalic and atraumatic Ears: hearing grossly normal bilaterally, external ears normal and TM's normal bilaterally General nose exam: Normal external nose present and Normal nares present Face and sinus: normal facial exam Mouth: Yes Normal oral and palatal mucosa present Eyes: General: appearance normal, both eyes and all related structures EO
[2021-06-08] MEDS: methylPREDNISolone SOD SUCC 125 MG VIAL IV PUSH (16:24)
[2021-06-08 16:27] VITALS: BP 91/62; PULSE 103; RESP 20; TEMP 36.9; O2SAT 100
[2021-06-08 16:53] LABS: SARS-CoV-2 RNA PCR Negative (Negative)
== END 2021-06-08 16:32 | disposition home or self-care (01) ==
PROVIDERS: Emergency Provider Emergency Medicine; PCP Family Medicine
DX: J18.9 Pneumonia, unspecified organism (principal); R60.9 Edema, unspecified; Z20.822 Contact with and (suspected) exposure to COVID-19; F17.200 Nicotine dependence, unspecified, uncomplicated
CPT/HCPCS: 36415; 71250; 80053; 81003; 83605; 83880; 84484; 85025; 87040; 93005; 96365; 96372; 96375; 99283; 99284; A9270; C9803; J0696; J1940; J2550; J2930; U0003; U0005

== ENCOUNTER 2021-07-29 13:18 | Emergency (ER) | payer OTHER, SELFPAY ==
--- NOTE | ~2021-07-29 | XR_ITS ---
EXAMINATION: XR chest 1V portable EXAM DATE: 07/29/2021 16:40 INDICATION: Cough w/ centralized chest pain x today. TECHNIQUE: Portable AP frontal chest x-ray was obtained. Comparison is made to prior examination from 06/10/2020. FINDINGS: The lungs are clear. There are no pleural effusions. The cardiomediastinal silhouette is within normal limits. There is no pneumothorax suspected. The bones and soft tissues are unremarkab le. There are cholecystectomy clips. IMPRESSION: No acute cardiopulmonary findings. Reviewed, dictated and finalized at location A. TENDER
[2021-07-29 13:31] VITALS: BP 103/72; PULSE 128; RESP 22; TEMP 36.2; O2SAT 98
[2021-07-29] MEDS: LORazepam INJ (*CRX) 2 MG/ML VIAL 1 MG IV PUSH (13:57)
[2021-07-29] MEDS: SODIUM CHLORIDE 0.9% IV 2,000 ML 999 ML IV CONT (13:57)
[2021-07-29] MEDS: ONDANSETRON INJ 4 MG/2 ML VIAL IV PUSH ×2 (13:57→17:09)
[2021-07-29 14:32] LABS: Acetone Moderate (Negative)
[2021-07-29 14:47] LABS: Glucose Point of Care 286 mg/dl (65-105)
--- NOTE | 2021-07-29 14:53 | ED.NAVMDI ---
HPI - Nausea/Vomiting/Diarrhea General Chief complaint: Nausea/Vomiting/Diarrhea Stated complaint: diabetic sick Related Data Home Medications Medication Instructions Recorded Confirmed insulin lispro [Admelog U-100 3 unit CONTINUOUS SUBCUTANEOUS 07/25/19 06/08/21 Insulin lispro] INFUSION DIRECTED levothyroxine 50 mcg PO DAILY 12/16/19 06/08/21 blood-glucose sensor [Dexcom G6 11/06/20 04/01/21 Sensor] Allergies Allergy/AdvReac Type Severity Reaction Status Date / Time Latex, Natural Rubber Allergy Severe Hives Verified 07/29/21 13:34 peanut oil Allergy Severe Difficulty Verified 07/29/21 13:34 Breathing PMFSH Past Medical History Medical History Acute cervicitis Dysmenorrhea Endometriosis Endometritis GERD (gastroesophageal reflux disease) History of seizure As a child. History of UTI Hypothyroidism Irritable bowel syndrome with constipation Ovarian cyst Type 1 diabetes mellitus Surgical History Surgical History H/O: hysterectomy 12/23/[address] san Status post cholecystectomy Status post endometrial ablation 08/06/19 Dr San. Status post ovarian cystectomy 08/06/19 Dr San. Status post tubal ligation 08/06/19 Dr San. Family History Family History Mother Lupus (systemic lupus erythematosus) Scleroderma Diabetes mellitus Heart disease Renal disease Cerebrovascular accident History of blood clots Grandparent Hypertension Father CAD (coronary artery disease) Social History Social History Social History: The patient lives in [place], [place] with her 8-year-old daughter. 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 She tells me she smokes 7-8 cigarettes a day for the last 10 years. She reports occasional marijuana use. She denies alcohol use. Her PCP is Dr. Rodney Grier. She designates her mother, Olya Rodriguez, as her surrogate decision maker and she is full code status. Smoking packs per day: 0.5 Smoking cigarettes per day: 10.0 Years smoked: 4 Smoking pack-years: 2.00 Smoking status: Current some day smoker Tobacco type: cigarettes Second hand tobacco smoke exposure: Yes Smoking end date: 12/22/19 Alcohol intake: never Drinks per week: 1 Substance use: current Substance use type: marijuana Last use: Patient reports last use of Marijuana about 3 weeks ago Gender identity (if verbalized by the patient): Female Sexual Orientation (if Verbalized by the Patient): Straight or Heterosexual Spiritual care concerns: No Agree to blood products: Yes Course Course Emergency Course: pts insulin pump is attached and working, bs is in 2--300 range, will support with IVF and moniter BS Pt related that she disconnected her pump this am and forgot about it. SHe states that what started this. She was told that i recommended admission, however she want to go home. SHe is aware of risks, and will sign out AMA Vital Signs Vital signs: Vital Signs Temperature 36.2 C L 07/29/21 13:31 Pulse Rate 128 H 07/29/21 13:31 Respiratory Rate 22 H 07/29/21 13:31 Blood Pressure 103/72 07/29/21 13:31 Pulse Oximetry 98 07/29/21 13:31 Temperature 36.6 C 07/29/21 15:00 Pulse Rate 89 07/29/21 15:00 Respiratory Rate 16 07/29/21 15:00 Blood Pressure 109/64 07/29/21 15:00 Pulse Oximetry 97 07/29/21 15:00 MDM - Nausea/Vomiting/Diarrhea Lab Data Result diagrams: 07/29/21 14:25 Labs: Lab Results 07/29/21 07/29/21 07/29/21 Range/Units 14:20 14:25 14:44 Sodium 136 (136-145) mmol/L Potassium 4.6 (3.5-5.1) mmol/L Chloride 95 L (98-108) mmol/L Carbon Dioxide 17 L (21-32) mmol/L Anion Gap 24 H (8-16) mmol/L BUN 41 H (7-18)
[2021-07-29 15:00] VITALS: BP 109/64; PULSE 89; RESP 16; TEMP 36.6; O2SAT 97
[2021-07-29 15:08] LABS: Anion Gap 24 mmol/L (8-16); Blood Urea Nitrogen 41 mg/dL (7-18); Calcium 9.7 mg/dL (8.5-10.1); Carbon Dioxide 17 mmol/L (21-32); Chloride 95 mmol/L (98-108); Estimated CRCL calculation 35 ml/min; Estimated Glomerular Filt Rate 38; Glucose 394 mg/dL (70-99); Osmolality Calculated 308 mOsm/kg (285-295); Potassium 4.6 mmol/L (3.5-5.1); Sodium 136 mmol/L (136-145)
[2021-07-29 17:14] VITALS: BP 111/65; PULSE 71; RESP 16; TEMP 36.7; O2SAT 97
== END 2021-07-29 17:16 | disposition left against medical advice (07) ==
PROVIDERS: Emergency Provider Emergency Medicine; PCP Family Medicine
DX: E10.10 Type 1 diabetes mellitus with ketoacidosis without coma (principal)
CPT/HCPCS: 36415; 71045; 80048; 82010; 82948; 96361; 96374; 96375; 99283; 99284; J2060; J2405; J7030

== ENCOUNTER 2021-10-14 17:28 | Emergency (ER) | payer OTHER, SELFPAY ==
--- NOTE | ~2021-10-14 | XR_ITS ---
EXAMINATION: XR chest 1V portable EXAM DATE: 10/14/2021 18:01 INDICATION: Central/RT sided chest pain x 4 days worsening today. TECHNIQUE: Portable AP frontal chest x-ray was obtained. Comparison is made to prior examination from 07/29/2021. FINDINGS: The lungs are clear. There are no pleural effusions. The cardiomediastinal silhouette is within normal limits. There is no pneumothorax suspected. The bones and soft tissues are unremarkab le. There are cholecystectomy clips. IMPRESSION: No acute cardiopulmonary findings. Reviewed, dictated and finalized at location G.
[2021-10-14 17:28] VITALS: BP 139/94; PULSE 95; RESP 18; TEMP 36.7; O2SAT 100
--- NOTE | 2021-10-14 17:46 | ECG_ITS ---
Measurements Intervals [place] Rate: 78 P: 42 AL: 133 QRS: 75 QRSD: 82 T: 62 QT: 358 QTc: 409 Interpretive Statements BASELINE ARTIFACT PRESENT SINUS RHYTHM CANNOT RULE OUT PREVIOUS SEPTAL INFARCTION COMPARED TO ECG 06/08/2021 13:23:36 NO SIGNIFICANT CHANGES Electronically Signed On 10-15-2021 8:43:31 CDT by Mik Newberry M.D.
--- NOTE | 2021-10-14 17:48 | ED.GENADULT ---
HPI - General Adult General Chief complaint: Abdominal Pain Stated complaint: chest pain Source: patient Mode of arrival: ambulatory Limitations: no limitations History of Present Illness HPI narrative: Steph is a 30F with a PMH of DMI, CAP, GERD, and a cholecystectomy that presented to the ED with epigastric/Right inferior chest pain that radiates to the back. It has been worsening for a few days. It is worse with palpation/movement but better with lying still. She has a lot of nausea but no vomiting. Related Data Home Medications Medication Instructions Recorded Confirmed insulin lispro [Admelog U-100 3 unit CONTINUOUS SUBCUTANEOUS 07/25/19 10/14/21 Insulin lispro] INFUSION DIRECTED levothyroxine 50 mcg PO DAILY 12/16/19 10/14/21 blood-glucose sensor [Dexcom G6 11/06/20 04/01/21 Sensor] Allergies Allergy/AdvReac Type Severity Reaction Status Date / Time Latex, Natural Rubber Allergy Severe Hives Verified 10/14/21 17:37 peanut oil Allergy Severe Difficulty Verified 07/29/21 13:34 Breathing Review of Systems Constitutional: Constitutional: Reports no additional constitutional complaints Eyes: Eyes: Reports no additional eye complaints ENT: Reports system reviewed and no additional complaints, except as documented Cardiovascular: Cardiovascular: Reports as per HPI Respiratory: Respiratory: Reports no additional respiratory complaints Gastrointestinal: Gastrointestinal: Reports as per HPI Genitourinary: Genitourinary: Reports no additional female genitourinary complaints Musculoskeletal: Musculoskeletal: Reports no additional musculoskeletal complaints Integumentary/Breasts: Skin/Breast: Reports system reviewed and no additional complaints, except as docu Neurologic: Reports system reviewed and no additional complaints, except as documented Psychiatric: Psychiatric: Reports no additional psychiatric complaints Endocrine: Endocrine: Reports no additional endocrine complaints Hematologic/Lymphatic: Hematologic/Lymphatic: Reports no additional hematologic/lymphatic complaints Allergic/Immunologic: Allergic/Immunologic: Reports no additional allergic/immunologic complaints [facility] Past Medical History Medical History Acute cervicitis Dysmenorrhea Endometriosis Endometritis GERD (gastroesophageal reflux disease) History of seizure As a child. History of UTI Hypothyroidism Irritable bowel syndrome with constipation Ovarian cyst Type 1 diabetes mellitus Surgical History Surgical History H/O: hysterectomy 12/23/[address] san Status post cholecystectomy Status post endometrial ablation 08/06/19 Dr San. Status post ovarian cystectomy 08/06/19 Dr San. Status post tubal ligation 08/06/19 Dr San. Family History Family History Mother Lupus (systemic lupus erythematosus) Scleroderma Diabetes mellitus Heart disease Renal disease Cerebrovascular accident History of blood clots Grandparent Hypertension Father CAD (coronary artery disease) Social History Social History Social History: The patient lives in [place], [place] with her 8-year-old daughter. 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 She tells me she smokes 7-8 cigarettes a day for the last 10 years. She reports occasional marijuana use. She denies alcohol use. Her PCP is Dr. Rodney Grier. She designates her mother, Olya Rodriguez, as her surrogate decision maker and she is full code status. Smoking packs per day: 0.5 Smoking cigarettes per day: 10.0 Years smoked: 4 Smoking pack-years: 2.00 Smoking status: Current some day smoker Tobacco type: cigarettes Second hand tobacco smoke exposure: Yes Smoking end date: 12/22/19 Alcohol intake:
[2021-10-14 18:04] LABS: Basophils Absolute Auto 0.03 K/mm3 (0.00-0.10); Basophils Percent Auto 0.5 % (0.0-1.0); Eosinophils Absolute Auto 0.06 K/mm3 (0.02-0.50); Eosinophils Percent Auto 1.1 % (1.0-6.0); Hematocrit 38.9 % (35.0-49.0); Immature Granulocyte Absolute 0.01 K/mm3 (0.00-0.00); Immature Granulocyte Percent A 0.2 % (0.0-0.0); Lymphocytes Absolute Auto 2.21 K/mm3 (1.10-4.50); Lymphocytes Percent Auto 38.8 % (18.0-42.0); Mean Corpuscular HGB Conc 33.4 g/dL (32.0-36.0); Mean Corpuscular Hemoglobin 30.9 pg (27.0-31.0); Mean Corpuscular Volume 92.4 fL (78.0-102.0); Mean Platelet Volume 9.8 fl (9.2-11.8); Monocytes Absolute Auto 0.32 K/mm3 (0.10-0.90); Monocytes Percent Auto 5.6 % (2.0-11.0); Neutrophils Absolute Auto 3.1 K/mm3 (1.7-7.2); Neutrophils Percent Auto 53.8 % (50.0-70.0); Platelet Count Result 282 K/mm3 (150-420); Red Blood Count 4.21 M/mm3 (4.20-5.40); Red Cell Distribution Width 12.2 % (11.6-14.4); White Blood Count 5.7 K/mm3 (4.8-10.8)
[2021-10-14] MEDS: MORPHINE SULFATE (*CRX) 4 MG/ML INJ IV PUSH (18:07)
[2021-10-14 18:16] LABS: Prothrombin Time 10.8 Seconds (9.50-12.10)
[2021-10-14 18:25] VITALS: BP 135/84; PULSE 88; RESP 18; O2SAT 100
[2021-10-14 18:27] LABS: CRP < 0.2 mg/dL (0.0-0.9); Lactic Acid Reflex 0.8 mmol/L (0.4-2.0)
[2021-10-14 18:30] LABS: Alanine Aminotransferase 57 U/L (14-59); Alkaline Phosphatase 121 U/L (46-116); Anion Gap 9 mmol/L (8-16); Aspartate Amino Transferase 26 U/L (15-37); Bilirubin,Total 0.4 mg/dL (0.00-1.00); Blood Urea Nitrogen 23 mg/dL (7-18); Calcium 9.3 mg/dL (8.5-10.1); Carbon Dioxide 29 mmol/L (21-32); Chloride 97 mmol/L (98-108); Estimated CRCL calculation 55 ml/min; Estimated Glomerular Filt Rate > 60; Glucose 213 mg/dL (70-99); Lipase 131 U/L (73-393); Magnesium 1.6 mg/dL (1.8-2.4); NT Pro B Type Natriuretic Pept 111 pg/mL (0-125); Osmolality Calculated 289 mOsm/kg (285-295); Sodium 135 mmol/L (136-145); Total Protein 7.7 g/dL (6.4-8.2)
[2021-10-14 18:31] LABS: Troponin I < 4.0 ng/L (0.00-60.4)
[2021-10-14 18:42] VITALS: BP 130/78; PULSE 81; RESP 16; O2SAT 99
[2021-10-14 18:55] LABS: Add Urine Microscopic? YES; Appearance Urine Clear (Clear); Bilirubin Urine Negative (Negative); Blood Urine Negative (Negative); Color Urine Yellow (Yellow); Glucose Urine UA Trace (Negative); Ketones Urine Negative (Negative); Leukocyte Esterase Ur Negative (Negative); Nitrate Urine Negative (Negative); Protein Urine Negative (Negative); Urobilinogen Urine 0.2 mg/dL (0.2-1.0); pH Urine 6.5 (5.0-8.0)
[2021-10-14 19:00] LABS: RBC Urine 0-2 /hpf (0-2); Squamous Epithelial Cell Urine Rare /hpf (Few); WBC Urine 0-3 /hpf (0-3)
[2021-10-14 19:01] LABS: Bacteria Urine Trace /hpf
[2021-10-14] MEDS: MAG HYDROX/ALUMINUM HYD/SIMETH 30 ML, PHENobarb/HYOSCY/ATROPINE/SCOP 32.4 MG, LIDOCAINE... PO (19:09)
[2021-10-14 19:40] VITALS: BP 115/80; PULSE 84; RESP 16; O2SAT 97
== END 2021-10-14 19:42 | disposition home or self-care (01) ==
PROVIDERS: Emergency Provider Family Medicine; PCP Family Medicine
DX: R07.81 Pleurodynia (principal); R07.9 Chest pain, unspecified; K21.9 Gastro-esophageal reflux disease without esophagitis
CPT/HCPCS: 36415; 71045; 80053; 81001; 83605; 83690; 83735; 83880; 84484; 85025; 85610; 86140; 93005; 96374; 99284; A9270; J2270

== ENCOUNTER 2022-10-05 10:45 | Emergency (ER) | payer OTHER, SELFPAY ==
[2022-10-05 10:45] VITALS: BP 130/80; PULSE 100; RESP 18; TEMP 36.2; O2SAT 100
[2022-10-05 10:50] VITALS: BP 130/80; PULSE 101; RESP 14; TEMP 36.4; O2SAT 100
[2022-10-05 10:54] VITALS: BP 130/80; PULSE 101; RESP 14; TEMP 36.4; O2SAT 100
--- NOTE | 2022-10-05 10:59 | ED.DENTAL ---
HPI - Dental/Oral General Chief complaint: Dental/Oral Stated complaint: Tooth Injury Time Seen by Provider: 10/05/22 10:57 Source: patient and family Mode of arrival: ambulatory Limitations: no limitations History of Present Illness HPI Narrative: this is a 31-year-old female with some dental pain with some history of tooth decay currently having increased pain with swelling in the right lower jaw area and dental pain with surrounding gum inflammation with no fever chills no shortness of breath, does have episodes of nausea and vomiting with no abdominal pain. MD Complaint: tooth pain Teeth map: 1. dental decay with surrounding gum inflammation and right-sided jaw swelling Onset (ago): day(s) Duration: constant Severity: moderate Severity scale (1-10): 7 Relieving factors: nothing Exacerbating factors: chewing and cold Context: history of dental caries Associated symptoms: gum swelling Related Data Home Medications Medication Instructions Recorded Confirmed insulin lispro 100 unit/mL 3 unit continuous subcutaneous 07/25/19 10/05/22 subcutaneous solution (Admelog infusion DIRECTED U-100 Insulin lispro) levothyroxine 50 mcg capsule 50 mcg PO DAILY 12/16/19 10/05/22 blood-glucose sensor (Dexcom G6 11/06/20 04/01/21 Sensor device) alprazolam 0.25 mg tablet 0.25 mg PO TID PRN Anxiety 10/05/22 10/05/22 Allergies Allergy/AdvReac Type Severity Reaction Status Date / Time Latex, Natural Rubber Allergy Severe Hives Verified 10/05/22 10:52 peanut oil Allergy Severe Difficulty Verified 10/05/22 10:52 Breathing Review of Systems Review of Systems: All systems reviewed & are unremarkable except as noted in HPI and below PMFSH Past Medical History Medical History Acute cervicitis Dysmenorrhea Endometriosis Endometritis GERD (gastroesophageal reflux disease) History of seizure As a child. History of UTI Hypothyroidism Irritable bowel syndrome with constipation Ovarian cyst Type 1 diabetes mellitus Surgical History Surgical History H/O: hysterectomy 12/23/[address] san Status post cholecystectomy Status post endometrial ablation 08/06/19 Dr San. Status post ovarian cystectomy 08/06/19 Dr San. Status post tubal ligation 08/06/19 Dr San. Family History Family History Mother Lupus (systemic lupus erythematosus) Scleroderma Diabetes mellitus Heart disease Renal disease Cerebrovascular accident History of blood clots Grandparent Hypertension Father CAD (coronary artery disease) Social History Social History Social History: The patient lives in [place], [place] with her 8-year-old daughter. 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 She tells me she smokes 7-8 cigarettes a day for the last 10 years. She reports occasional marijuana use. She denies alcohol use. Her PCP is Dr. Rodney Grier. She designates her mother, Olya Rodriguez, as her surrogate decision maker and she is full code status. Smoking packs per day: 0.5 Smoking cigarettes per day: 10.0 Years smoked: 4 Smoking pack-years: 2.00 Smoking status: Current some day smoker Tobacco type: cigarettes Second hand tobacco smoke exposure: Yes Smoking end date: 12/22/19 Alcohol intake: never Drinks per week: 1 Substance use: current Substance use type: marijuana Last use: Patient reports last use of Marijuana about 3 weeks ago Gender identity (if verbalized by the patient): Female Sexual Orientation (if Verbalized by the Patient): Straight or Heterosexual Spiritual care concerns: No Agree to blood products: Yes Exam Const: General: healthy appearing Nutritional Appearance: well nourished Orientation/consciousness: patient [place]
[2022-10-05] MEDS: KETOROLAC (*BKC) 60 MG/2 ML VIAL IM (11:13)
[2022-10-05] MEDS: cefTRIAXone 1 GM, LIDOCAINE HCL 1% LOCAL INJ 2.1 ML IM (11:13)
[2022-10-05] MEDS: ONDANSETRON HCL ODT 4 MG TABLET PO (11:13)
== END 2022-10-05 11:23 | disposition home or self-care (01) ==
PROVIDERS: Emergency Provider Emergency Medicine; PCP Family Medicine
DX: K02.9 Dental caries, unspecified (principal); K04.7 Periapical abscess without sinus; E10.9 Type 1 diabetes mellitus without complications; E03.9 Hypothyroidism, unspecified; F17.210 Nicotine dependence, cigarettes, uncomplicated; Z79.4 Long term (current) use of insulin
CPT/HCPCS: 96372; 99284; A9270; J0696; J1885

== ENCOUNTER 2023-01-07 06:01 | Emergency (ER) | payer OTHER, SELFPAY ==
[2023-01-07 06:01] VITALS: BP 111/89; PULSE 78; RESP 20; TEMP 37.1; O2SAT 96
--- NOTE | 2023-01-07 06:10 | ED.GENADULT ---
HPI - General Adult General Chief complaint: Nausea/Vomiting/Diarrhea Stated complaint: Belly Pain/Vomiting Time Seen by Provider: 01/07/23 06:56 History of Present Illness HPI narrative: This is a 32-year-old female presenting ED with a chief complaint of abdominal pain, nausea, vomiting. Three days ago she started a stabbing pain in the epigastric area that radiates to her back. Is 10 out 10 intensity and constant. She was seen in our emergency department in September of this year for similar complaints. Patient notes that she has had multiple episodes of nausea vomiting has difficulty keeping down water. No fever chills chest pain difficulty breathing or diarrhea. She does have an insulin pump and states that her blood sugars have actually been running low, likely due to decreased oral intake. Patient says she does not feel like DKA. Patient has not been placed on a PPI. Related Data Home Medications Medication Instructions Recorded Confirmed insulin lispro 100 unit/mL 3 unit continuous subcutaneous 07/25/19 10/05/22 subcutaneous solution (Admelog infusion DIRECTED U-100 Insulin lispro) levothyroxine 50 mcg capsule 50 mcg PO DAILY 12/16/19 10/05/22 blood-glucose sensor (Dexcom G6 11/06/20 04/01/21 Sensor device) alprazolam 0.25 mg tablet 0.25 mg PO TID PRN Anxiety 10/05/22 10/05/22 Allergies Allergy/AdvReac Type Severity Reaction Status Date / Time Latex, Natural Rubber Allergy Severe Hives Verified 10/05/22 10:52 peanut oil Allergy Severe Difficulty Verified 10/05/22 10:52 Breathing PMFSH Past Medical History Medical History Acute cervicitis Dysmenorrhea Endometriosis Endometritis GERD (gastroesophageal reflux disease) History of seizure As a child. History of UTI Hypothyroidism Irritable bowel syndrome with constipation Ovarian cyst Type 1 diabetes mellitus Surgical History Surgical History H/O: hysterectomy 12/23/[address] san Status post cholecystectomy Status post endometrial ablation 08/06/19 Dr San. Status post ovarian cystectomy 08/06/19 Dr San. Status post tubal ligation 08/06/19 Dr San. Family History Family History Mother Lupus (systemic lupus erythematosus) Scleroderma Diabetes mellitus Heart disease Renal disease Cerebrovascular accident History of blood clots Grandparent Hypertension Father CAD (coronary artery disease) Social History Social History Social History: The patient lives in [place], [place] with her 8-year-old daughter. 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 She tells me she smokes 7-8 cigarettes a day for the last 10 years. She reports occasional marijuana use. She denies alcohol use. Her PCP is Dr. Rodney Grier. She designates her mother, Olya Rodriguez, as her surrogate decision maker and she is full code status. Smoking packs per day: 0.5 Smoking cigarettes per day: 10.0 Years smoked: 4 Smoking pack-years: 2.00 Smoking status: Current some day smoker Tobacco type: cigarettes Second hand tobacco smoke exposure: Yes Smoking end date: 12/22/19 Alcohol intake: never Drinks per week: 1 Substance use: current Substance use type: marijuana Last use: Patient reports last use of Marijuana about 3 weeks ago Gender identity (if verbalized by the patient): Female Sexual Orientation (if Verbalized by the Patient): Straight or Heterosexual Spiritual care concerns: No Agree to blood products: Yes Exam Narrative: APPEARANCE: No apparent distress. Head: atraumatic. EYES: EOMI, NOSE: Atraumatic NECK: Trachea midline RESPIRATORY: No increased rate of breathing, clear to auscultation CARDIOVASCULAR: RRR, no peripheral edema ABDOMINAL: Tenderness palpat
[2023-01-07] MEDS: SODIUM CHLORIDE 0.9% IV 2,000 ML 999 ML IV CONT (06:26)
[2023-01-07 06:27] LABS: Basophils Absolute Auto 0.07 K/mm3 (0.00-0.10); Basophils Percent Auto 1.1 % (0.0-1.0); Eosinophils Percent Auto 1.6 % (1.0-6.0); Hematocrit 42.2 % (35.0-49.0); Hemoglobin 14.7 g/dL (12.0-15.0); Immature Granulocyte Absolute 0.01 K/mm3 (0.00-0.00); Immature Granulocyte Percent A 0.2 % (0.0-0.0); Lymphocytes Absolute Auto 2.45 K/mm3 (1.10-4.50); Lymphocytes Percent Auto 39.5 % (18.0-42.0); Mean Corpuscular HGB Conc 34.8 g/dL (32.0-36.0); Mean Corpuscular Hemoglobin 30.6 pg (27.0-31.0); Mean Corpuscular Volume 87.7 fL (78.0-102.0); Mean Platelet Volume 10.1 fl (9.2-11.8); Monocytes Absolute Auto 0.54 K/mm3 (0.10-0.90); Monocytes Percent Auto 8.7 % (2.0-11.0); Neutrophils Percent Auto 48.9 % (50.0-70.0); Platelet Count Result 264 K/mm3 (150-420); Red Blood Count 4.81 M/mm3 (4.20-5.40); Red Cell Distribution Width 11.6 % (11.6-14.4); White Blood Count 6.2 K/mm3 (4.8-10.8)
[2023-01-07] MEDS: ONDANSETRON INJ 4 MG/2 ML VIAL IV PUSH (06:27)
[2023-01-07] MEDS: FAMOTIDINE 20 MG/2 ML VIAL IV PUSH (06:27)
[2023-01-07 06:31] LABS: Appearance Urine Clear (Clear); Bilirubin Urine 2+ (Negative); Blood Urine Negative (Negative); Color Urine Light Yellow (Yellow); Glucose Urine UA Negative (Negative); Ketones Urine 2+ (Negative); Leukocyte Esterase Ur Trace LEU/UL (Negative); Nitrate Urine Negative (Negative); Protein Urine Trace (Negative); Urobilinogen Urine 0.2 mg/dL (0.2-1.0)
[2023-01-07 06:37] LABS: Amphetamine Screen Urine Negative (Negative); Barbiturate Screen Urine Negative (Negative); Benzodiazepines Screen Urine Negative (Negative); Cannabinoid Screen Urine Positive (Negative); Cocaine Screen Urine Negative (Negative); Methadone Screen Urine Negative (Negative); Opiate Screen Urine Negative (Negative); Phencyclidine Screen Urine Negative (Negative)
[2023-01-07 06:40] LABS: Add Urine Microscopic? YES; Amorphous Sediment Urine Moderate; Mucus Urine Moderate /lpf; Squamous Epithelial Cell Urine Few /hpf (Few); WBC Urine None seen /hpf (0-3)
[2023-01-07 06:41] LABS: Alanine Aminotransferase 29 U/L (14-59); Albumin Level 4.4 g/dL (3.4-5.0); Alkaline Phosphatase 113 U/L (46-116); Anion Gap 18 mmol/L (8-16); Aspartate Amino Transferase 23 U/L (15-37); Bilirubin,Total 0.8 mg/dL (0.00-1.00); Blood Urea Nitrogen 30 mg/dL (7-18); Calcium 9.8 mg/dL (8.5-10.1); Carbon Dioxide 23 mmol/L (21-32); Chloride 96 mmol/L (98-108); Estimated Glomerular Filt Rate 50; Glucose 131 mg/dL (70-99); Lipase 18 U/L (16-77); Magnesium 1.6 mg/dL (1.8-2.4); Osmolality Calculated 292 mOsm/kg (285-295); Potassium 3.8 mmol/L (3.5-5.1); Sodium 137 mmol/L (136-145); Total Protein 8.6 g/dL (6.4-8.2)
[2023-01-07] MEDS: HYDROmorphone HCL INJ (*CRX) 2 MG/ML VIAL 0.5 MG IV PUSH (06:53)
[2023-01-07] MEDS: MAG HYDROX/AL HYDROX/SIMETH 30 ML UDC PO (06:54)
--- NOTE | 2023-01-07 06:57 | ED.GENADULT ---
HPI - General Adult General Chief complaint: Nausea/Vomiting/Diarrhea Stated complaint: Belly Pain/Vomiting Time Seen by Provider: 01/07/23 06:56 History of Present Illness HPI narrative: Steph presented to the ED with abdominal pain, nausea, and vomiting. Please see Dr. Owusu's note for detail. Related Data Home Medications Medication Instructions Recorded Confirmed insulin lispro 100 unit/mL 3 unit continuous subcutaneous 07/25/19 10/05/22 subcutaneous solution (Admelog infusion DIRECTED U-100 Insulin lispro) levothyroxine 50 mcg capsule 50 mcg PO DAILY 12/16/19 10/05/22 blood-glucose sensor (Dexcom G6 11/06/20 04/01/21 Sensor device) alprazolam 0.25 mg tablet 0.25 mg PO TID PRN Anxiety 10/05/22 10/05/22 Allergies Allergy/AdvReac Type Severity Reaction Status Date / Time Latex, Natural Rubber Allergy Severe Hives Verified 10/05/22 10:52 peanut oil Allergy Severe Difficulty Verified 10/05/22 10:52 Breathing Review of Systems Review of Systems: All systems reviewed & are unremarkable except as noted in HPI and below PMFSH Past Medical History Medical History Acute cervicitis Dysmenorrhea Endometriosis Endometritis GERD (gastroesophageal reflux disease) History of seizure As a child. History of UTI Hypothyroidism Irritable bowel syndrome with constipation Ovarian cyst Type 1 diabetes mellitus Surgical History Surgical History H/O: hysterectomy 12/23/[address] san Status post cholecystectomy Status post endometrial ablation 08/06/19 Dr San. Status post ovarian cystectomy 08/06/19 Dr San. Status post tubal ligation 08/06/19 Dr San. Family History Family History Mother Lupus (systemic lupus erythematosus) Scleroderma Diabetes mellitus Heart disease Renal disease Cerebrovascular accident History of blood clots Grandparent Hypertension Father CAD (coronary artery disease) Social History Social History Social History: The patient lives in [place], [place] with her 8-year-old daughter. 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 She tells me she smokes 7-8 cigarettes a day for the last 10 years. She reports occasional marijuana use. She denies alcohol use. Her PCP is Dr. Rodney Grier. She designates her mother, Olya Rodriguez, as her surrogate decision maker and she is full code status. Smoking packs per day: 0.5 Smoking cigarettes per day: 10.0 Years smoked: 4 Smoking pack-years: 2.00 Smoking status: Current some day smoker Tobacco type: cigarettes Second hand tobacco smoke exposure: Yes Smoking end date: 12/22/19 Alcohol intake: never Drinks per week: 1 Substance use: current Substance use type: marijuana Last use: Patient reports last use of Marijuana about 3 weeks ago Gender identity (if verbalized by the patient): Female Sexual Orientation (if Verbalized by the Patient): Straight or Heterosexual Spiritual care concerns: No Agree to blood products: Yes Exam Const: General: healthy appearing and no acute distress Nutritional Appearance: well nourished HENMT: Head: normal to inspection Ears: external ears normal Face/Nose/Sinus: Normal external nose present Eyes: Conjunctivae: conjunctivae normal Pupils: Equal, round and reactive pupils present EOM: EOMs intact bilaterally Neck: Neck: normal visual inspection Chest: Chest palpation & inspection: normal inspection of the chest Resp: Effort & Inspection: normal respiratory effort Cardio: Rate: regular rate Rhythm: regular rhythm GI: Inspection: non-distended GI Palp: Yes Soft to palpation, No Tenderness to palpation present (GI) and No Guarding due to palpation present (GI) Auscultation: normal bowel sounds :
[2023-01-07] MEDS: METOCLOPRAMIDE HCL INJ 10 MG/2 ML VIAL IV PUSH (07:29)
[2023-01-07 07:30] VITALS: BP 121/68; PULSE 64; RESP 16; TEMP 36.8; O2SAT 98
[2023-01-07 08:40] VITALS: BP 103/61; PULSE 96; RESP 18; TEMP 36.6; O2SAT 98
[2023-01-25 12:36] LABS: Glucose Point of Care 131 mg/dl (65-105)
== END 2023-01-07 08:50 | disposition home or self-care (01) ==
PROVIDERS: Emergency Medicine; Emergency Provider Family Medicine; PCP Family Medicine
DX: K29.70 Gastritis, unspecified, without bleeding (principal); N17.9 Acute kidney failure, unspecified; E03.9 Hypothyroidism, unspecified; E10.9 Type 1 diabetes mellitus without complications; F17.210 Nicotine dependence, cigarettes, uncomplicated; Z79.4 Long term (current) use of insulin
CPT/HCPCS: 36415; 80053; 80307; 81001; 82948; 83690; 83735; 85025; 96361; 96374; 96375; 99284; A9270; J1170; J2405; J2765; J7030

== ENCOUNTER 2023-01-09 10:05 | Emergency (ER) | payer OTHER, SELFPAY ==
--- NOTE | ~2023-01-09 | CT_ITS ---
CT of the Abdomen and Pelvis: Indication: Abdominal pain Technique: 2.5 mm axial scans were obtained through the abdomen and pelvis following intravenous adm inistration of 100 cc of Omnipaque 350. Dose reduction technique was used on this scan by utilizing a utomated exposure control and iterative reconstruction technique. The dose-length product (DLP) was 1 88.08 mGy-cm. COMPARISON: 04/01/2021 Findings: Scans through the lung bases are unremarkable. The liver, spleen, pancreas, adrenals and kidneys are within normal limits. Cholecystectomy clips are present. No evidence of aortic aneurysm. No lymphadenopathy. Suspected mild wall thickening of ascending and transverse colon. No bowel obstruction. No abscess or free air. Images through the pelvis were performed. Urinary bladder unremarkable. No adnexal mass evident. No a scites. Impression: Suspected wall thickening of the ascending and transverse colon. Correlate for infectious/inflammator y colitis. Reviewed, dictated and finalized at [facility]. Impression: Suspected wall thickening of the ascending and transverse colon. Correlate for infectious/inflammatory colitis.
[2023-01-09 10:05] VITALS: BP 108/82; PULSE 99; RESP 18; TEMP 36.5; O2SAT 99
--- NOTE | 2023-01-09 10:19 | ED.ABDPAIN ---
HPI - Abdominal Pain General Chief Complaint: Abdominal Pain Stated Complaint: abdominal pain Time Seen by Provider: 01/09/23 10:14 Source: patient Mode of arrival: ambulatory Limitations: no limitations History of Present Illness HPI narrative: 32-year-old female with a history of smoking, diabetes mellitus on an insulin pump, anxiety, hypothyroidism, endometriosis status post hysterectomy status post tubal ligation, GERD, presents to the ER with a 7 day history of -- epigastric pain radiating to the back. The patient presented to our ER 2 days ago and had a workup which revealed normal blood counts, normal sugar and renal insufficiency. The patient received IV fluids and was discharged home on Pepcid and Zofran. she she saw her primary care physician yesterday. She is scheduled to see a podiatry doctor and have an endoscopy on the of next month. Currently the patient has ongoing pain -- multiple episodes of nausea and vomiting. Patient has had 2 episodes of vomiting today. The vomitus is green. No fever or chills. MD elicited complaint: abdominal pain Onset (ago): day(s) ( Started 7 days ago) Pain Consistency: constant Location: epigastric Severity: severe Quality: aching Radiation: back Exacerbating factors: nothing Relieving factors: nothing Associated symptoms: denies other symptoms, nausea and vomiting Related Data Patient : No Home Medications Medication Instructions Recorded Confirmed insulin lispro 100 unit/mL 3 unit continuous subcutaneous 07/25/19 01/09/23 subcutaneous solution (Admelog infusion DIRECTED U-100 Insulin lispro) levothyroxine 50 mcg capsule 50 mcg PO DAILY 12/16/19 01/09/23 blood-glucose sensor (Dexcom G6 11/06/20 01/09/23 Sensor device) Allergies Allergy/AdvReac Type Severity Reaction Status Date / Time Latex, Natural Rubber Allergy Severe Hives Verified 01/09/23 10:11 peanut oil Allergy Severe Difficulty Verified 01/09/23 10:11 Breathing Review of Systems Review of Systems: All systems reviewed & are unremarkable except as noted in HPI and below Constitutional: Constitutional: Reports as per HPI and Reports no additional constitutional complaints Eyes: Eyes: Reports as per HPI and Reports no additional eye complaints ENT: Reports system reviewed and no additional complaints, except as documented and Reports as per HPI Cardiovascular: Cardiovascular: Reports as per HPI and Reports no additional cardiovascular complaints Respiratory: Respiratory: Reports as per HPI and Reports no additional respiratory complaints Gastrointestinal: Gastrointestinal: Reports as per HPI, Reports no additional gastrointestinal complaints, Reports abdominal pain, Reports nausea and Reports vomiting Genitourinary: Genitourinary: Reports no additional female genitourinary complaints and Reports as per HPI Musculoskeletal: Musculoskeletal: Reports no additional musculoskeletal complaints and Reports as per HPI Integumentary/Breasts: Skin/Breast: Reports system reviewed and no additional complaints, except as docu and Reports as per HPI Neurologic: Reports system reviewed and no additional complaints, except as documented and Reports as per HPI Psychiatric: Psychiatric: Reports no additional psychiatric complaints and Reports as per HPI Endocrine: Endocrine: Reports no additional endocrine complaints and Reports as per HPI Hematologic/Lymphatic: Hematologic/Lymphatic: Reports no additional hematologic/lymphatic complaints and Reports as per HPI Allergic/Immunologic: Allergic/Immunologic: Reports no additional allergic/immunologic complaints and Reports as per HPI [facility] Past Medical History Medical History Acute cervicitis Dysmenorrhea Endometriosis Endometritis GERD (gastroesophageal reflux disease) History of seizure As a child. History of UTI Hypothyroidism Irritable bowel syndrome with constipation Ovarian
[2023-01-09 11:00] LABS: Basophils Absolute Auto 0.05 K/mm3 (0.00-0.10); Basophils Percent Auto 1.1 % (0.0-1.0); Eosinophils Absolute Auto 0.11 K/mm3 (0.02-0.50); Eosinophils Percent Auto 2.4 % (1.0-6.0); Hematocrit 37.3 % (35.0-49.0); Immature Granulocyte Absolute 0.01 K/mm3 (0.00-0.00); Immature Granulocyte Percent A 0.2 % (0.0-0.0); Lymphocytes Absolute Auto 2.01 K/mm3 (1.10-4.50); Lymphocytes Percent Auto 43.6 % (18.0-42.0); Mean Corpuscular HGB Conc 34.9 g/dL (32.0-36.0); Mean Corpuscular Hemoglobin 30.7 pg (27.0-31.0); Mean Platelet Volume 9.6 fl (9.2-11.8); Monocytes Absolute Auto 0.45 K/mm3 (0.10-0.90); Monocytes Percent Auto 9.8 % (2.0-11.0); Neutrophils Percent Auto 42.9 % (50.0-70.0); Platelet Count Result 203 K/mm3 (150-420); Red Blood Count 4.24 M/mm3 (4.20-5.40); Red Cell Distribution Width 11.7 % (11.6-14.4); White Blood Count 4.6 K/mm3 (4.8-10.8)
[2023-01-09] MEDS: LACTATED RINGERS 1,000 ML 999 ML IV CONT (11:12)
--- NOTE | 2023-01-09 11:14 | PC.NURSE ---
PT IS LYING ON STRETCHER WITH DAUGHTER AT BEDSIDE. PT IS AWAITING LAB AT THIS TIME. PT IS REQUESTING PAIN MEDICATION, TO NOTIFY ERP. WILL CONTINUE TO MONITOR.
[2023-01-09 11:15] VITALS: BP 117/77; PULSE 95; RESP 18; O2SAT 98
[2023-01-09 11:17] LABS: Anion Gap 12 mmol/L (8-16); Blood Urea Nitrogen 15 mg/dL (7-18); Calcium 9.3 mg/dL (8.5-10.1); Carbon Dioxide 26 mmol/L (21-32); Chloride 100 mmol/L (98-108); Estimated CRCL calculation 53 ml/min; Estimated Glomerular Filt Rate > 60; Glucose 190 mg/dL (70-99); Magnesium 1.4 mg/dL (1.8-2.4); Osmolality Calculated 291 mOsm/kg (285-295); Potassium 4.2 mmol/L (3.5-5.1); Sodium 138 mmol/L (136-145)
[2023-01-09 11:18] LABS: Troponin I < 4.0 ng/L (0.00-60.4)
--- NOTE | 2023-01-09 11:59 | PC.NURSE ---
ERP HAS ORDERED [facility] FOR PAIN, PT DROVE HERSELF TO ER WITH HER PEDIATRIC CHILD. PT HAS NO ONE TO PICK HER UP. MEDICATION IS HELD AT THIS TIME. ERP IS AWARE. PT IS TO HAVE CT, AWAITING ORDERS AT THIS TIME. WILL CONTINUE TO MONITOR.
[2023-01-09 12:02] VITALS: BP 103/87; PULSE 88; RESP 18; O2SAT 99
--- NOTE | 2023-01-09 12:33 | PC.NURSE ---
PT RETURNS FROM CT, CONTINUES TO COMPLAIN OF PAIN. PT NOW REPORTS SHE IS ABLE TO HAVE SOMEONE PICK HER UP AND WOULD LIKE PAIN MEDICATION. ERP NOTIFIED.
[2023-01-09] MEDS: HYDROcodone/acetaminophen (*CRX) 5-325 MG TABLET 1 TAB PO (12:48)
[2023-01-09 12:51] VITALS: BP 104/72; PULSE 92; RESP 18; O2SAT 98
== END 2023-01-09 13:07 | disposition home or self-care (01) ==
PROVIDERS: Emergency Provider Internal Medicine Critical Care Medicine; PCP Family Medicine
DX: K27.9 Peptic ulcer, site unspecified, unspecified as acute or chronic, without hemorrhage or perforation (principal); R10.13 Epigastric pain; E10.9 Type 1 diabetes mellitus without complications; E03.9 Hypothyroidism, unspecified; N80.9 Endometriosis, unspecified; F17.210 Nicotine dependence, cigarettes, uncomplicated; Z79.4 Long term (current) use of insulin; Z90.710 Acquired absence of both cervix and uterus
CPT/HCPCS: 36415; 74177; 80048; 83735; 84484; 85025; 96360; 99284; A9270; J7120; Q9967

== ENCOUNTER 2023-06-12 15:24 | Emergency (ER) | payer OTHER, SELFPAY ==
[2023-06-12 15:24] VITALS: BP 111/85; PULSE 100; RESP 16; TEMP 36.6; O2SAT 98
--- NOTE | 2023-06-12 15:27 | ED.URI ---
HPI - URI/Sore Throat General Chief Complaint: Upper Respiratory Infection Stated Complaint: congestion vomitimg Time Seen by Provider: 06/12/23 15:27 Source: patient and RN notes reviewed Mode of arrival: ambulatory Limitations: no limitations History of Present Illness MD elicited complaint: cough Onset (ago): day(s) (4) Consistency: intermittent Severity: moderate Description of mucous: clear Able to tolerate fluids by mouth: Yes Exacerbating factors: other ( coughing) Relieving factors: nothing Associated symptoms: chills, nasal congestion, cough and vomiting Treatments prior to arrival: none Related Data Home Medications Medication Instructions Recorded Confirmed insulin lispro 100 unit/mL 3 unit continuous subcutaneous 07/25/19 06/12/23 subcutaneous solution (Admelog infusion DIRECTED U-100 Insulin lispro) levothyroxine 50 mcg capsule 50 mcg PO DAILY 12/16/19 06/12/23 blood-glucose sensor (Dexcom G6 11/06/20 06/12/23 Sensor device) Allergies Allergy/AdvReac Type Severity Reaction Status Date / Time Latex, Natural Rubber Allergy Severe Hives Verified 06/12/23 15:29 peanut oil Allergy Severe Difficulty Verified 06/12/23 15:29 Breathing Review of Systems Review of Systems: All systems reviewed & are unremarkable except as noted in HPI and below PMFSH Past Medical History Medical History Acute cervicitis Dysmenorrhea Endometriosis Endometritis GERD (gastroesophageal reflux disease) History of seizure As a child. History of UTI Hypothyroidism Irritable bowel syndrome with constipation Ovarian cyst Type 1 diabetes mellitus Surgical History Surgical History H/O: hysterectomy 12/23/[address] san Status post cholecystectomy Status post endometrial ablation 08/06/19 Dr San. Status post ovarian cystectomy 08/06/19 Dr San. Status post tubal ligation 08/06/19 Dr San. Family History Family History Mother Lupus (systemic lupus erythematosus) Scleroderma Diabetes mellitus Heart disease Renal disease Cerebrovascular accident History of blood clots Grandparent Hypertension Father CAD (coronary artery disease) Social History Social History Social History: The patient lives in [place], [place] with her 8-year-old daughter. 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 She tells me she smokes 7-8 cigarettes a day for the last 10 years. She reports occasional marijuana use. She denies alcohol use. Her PCP is Dr. Rodney Grier. She designates her mother, Olya Rodriguez, as her surrogate decision maker and she is full code status. Smoking packs per day: 0.5 Smoking cigarettes per day: 10.0 Years smoked: 4 Smoking pack-years: 2.00 Smoking status: Current some day smoker Tobacco type: cigarettes Second hand tobacco smoke exposure: Yes Smoking end date: 12/22/19 Alcohol intake: never Drinks per week: 1 Substance use: current Substance use type: marijuana Last use: Patient reports last use of Marijuana about 3 weeks ago Gender identity (if verbalized by the patient): Female Sexual Orientation (if Verbalized by the Patient): Straight or Heterosexual Spiritual care concerns: No Agree to blood products: Yes Exam Const: General: no acute distress, alert and ill appearing acutely Nutritional Appearance: well nourished and thin Orientation/consciousness: patient oriented x3 Limitations: no limitations Other: female nurse in room during examination HENMT: Head: normal to inspection Ears: external ears normal Face/Nose/Sinus: Normal external nose present Face and sinus: normal facial exam Mouth: Yes moist mucous membranes Throat: posterior oropharynx normal and uvula midline Eyes: Conjunct
[2023-06-12 15:33] VITALS: O2SAT 100
[2023-06-12 16:15] LABS: Influenza A QL RT-PCR Negative (Negative); Influenza B QL RT-PCR Negative (Negative); SARS-CoV-2 RNA PCR Negative (Negative)
[2023-06-12 16:40] VITALS: BP 111/85; PULSE 100; RESP 16; TEMP 36.7; O2SAT 100
== END 2023-06-12 16:40 | disposition home or self-care (01) ==
PROVIDERS: Emergency Provider Emergency Medicine; PCP Family Medicine
DX: J00 Acute nasopharyngitis [common cold] (principal); E03.9 Hypothyroidism, unspecified; E10.9 Type 1 diabetes mellitus without complications; F17.210 Nicotine dependence, cigarettes, uncomplicated; Z79.4 Long term (current) use of insulin; Z79.899 Other long term (current) drug therapy; Z20.822 Contact with and (suspected) exposure to COVID-19
CPT/HCPCS: 87636; 99283

== ENCOUNTER 2023-07-05 16:43 | Emergency (ER) | payer OTHER, SELFPAY ==
[2023-07-05 16:43] VITALS: BP 102/71; PULSE 56; RESP 20; TEMP 36.6; O2SAT 97
[2023-07-05] MEDS: ONDANSETRON INJ 4 MG/2 ML VIAL IV PUSH (17:09)
[2023-07-05 17:17] LABS: Hematocrit 41.8 % (35.0-49.0); Hemoglobin 13.9 g/dL (12.0-15.0); Mean Corpuscular HGB Conc 33.3 g/dL (32.0-36.0); Mean Corpuscular Hemoglobin 30.4 pg (27.0-31.0); Mean Corpuscular Volume 91.5 fL (78.0-102.0); Mean Platelet Volume 10.6 fl (9.2-11.8); Platelet Count Result 152 K/mm3 (150-420); Red Blood Count 4.57 M/mm3 (4.20-5.40); Red Cell Distribution Width 11.9 % (11.6-14.4); White Blood Count 2.4 K/mm3 (4.8-10.8)
[2023-07-05] MEDS: SODIUM CHLORIDE 0.9% IV 1,000 ML 999 ML IV CONT (17:17)
[2023-07-05 17:44] LABS: SARS-CoV-2 RNA PCR Positive (Negative)
[2023-07-05 17:44] LABS: Band Neutrophils Percent 0 % (0-6); Basophils Percent Manual 0 % (0-1); Eosinophils Percent Manual 0 % (1-6); Lymphocytes Absolute Manual 0.55 K/mm3 (1.1-4.5); Lymphocytes Percent Manual 23 % (18-44); Monocytes Absolute Manual 0.43 K/mm3 (0.1-0.90); Monocytes Percent Manual 18 % (3-9); Neutrophils Absolute Manual 1.41 K/mm3 (1.7-7.2); Neutrophils Percent Manual 59 % (46-73); Platelet Estimate Adequate (Adequate); Total Cells Counted 100
[2023-07-05 17:45] LABS: Influenza A QL RT-PCR Negative (Negative); Influenza B QL RT-PCR Negative (Negative); RSV RNA, RT-PCR Negative (Negative)
--- NOTE | 2023-07-05 18:18 | ED.NAVMDI ---
HPI - Nausea/Vomiting/Diarrhea General Chief complaint: Nausea/Vomiting/Diarrhea Stated complaint: sick Time Seen by Provider: 07/05/23 16:57 Source: patient Mode of arrival: ambulatory Limitations: no limitations History of Present Illness HPI Narrative: this is a 32 year presents with nausea and episodes of vomiting with no fever chills patient states that she feels like she has body aches and weakness with no diarrhea or constipation no chest pain or shortness of breath. MD elicited complaint: nausea and vomiting Onset (ago): day(s) Related Data Home Medications Medication Instructions Recorded Confirmed insulin lispro 100 unit/mL 3 unit continuous subcutaneous 07/25/19 07/05/23 subcutaneous solution (Admelog infusion DIRECTED U-100 Insulin lispro) levothyroxine 50 mcg capsule 50 mcg PO DAILY 12/16/19 07/05/23 blood-glucose sensor (Dexcom G6 11/06/20 07/05/23 Sensor device) omeprazole 40 mg capsule,delayed 40 mg PO DAILY 07/05/23 07/05/23 release sucralfate 1 gram tablet 1 g PO QID 07/05/23 07/05/23 Allergies Allergy/AdvReac Type Severity Reaction Status Date / Time Latex, Natural Rubber Allergy Severe Hives Verified 07/05/23 17:23 peanut oil Allergy Severe Difficulty Verified 07/05/23 17:23 Breathing Review of Systems Review of Systems: All systems reviewed & are unremarkable except as noted in HPI and below PMFSH Past Medical History Medical History Acute cervicitis Dysmenorrhea Endometriosis Endometritis GERD (gastroesophageal reflux disease) History of seizure As a child. History of UTI Hypothyroidism Irritable bowel syndrome with constipation Ovarian cyst Type 1 diabetes mellitus Surgical History Surgical History H/O: hysterectomy 12/23/[address] san Status post cholecystectomy Status post endometrial ablation 08/06/19 Dr San. Status post ovarian cystectomy 08/06/19 Dr San. Status post tubal ligation 08/06/19 Dr San. Family History Family History Mother Lupus (systemic lupus erythematosus) Scleroderma Diabetes mellitus Heart disease Renal disease Cerebrovascular accident History of blood clots Grandparent Hypertension Father CAD (coronary artery disease) Social History Social History Social History: The patient lives in [place], [place] with her 8-year-old daughter. 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 She tells me she smokes 7-8 cigarettes a day for the last 10 years. She reports occasional marijuana use. She denies alcohol use. Her PCP is Dr. Rodney Grier. She designates her mother, Olya Rodriguez, as her surrogate decision maker and she is full code status. Smoking packs per day: 0.5 Smoking cigarettes per day: 10.0 Years smoked: 4 Smoking pack-years: 2.00 Smoking status: Current some day smoker Tobacco type: cigarettes Second hand tobacco smoke exposure: Yes Smoking end date: 12/22/19 Alcohol intake: never Drinks per week: 1 Substance use: current Substance use type: marijuana Last use: Patient reports last use of Marijuana about 3 weeks ago Gender identity (if verbalized by the patient): Female Sexual Orientation (if Verbalized by the Patient): Straight or Heterosexual Spiritual care concerns: No Agree to blood products: Yes Exam Const: General: no acute distress Nutritional Appearance: thin Orientation/consciousness: patient oriented x3 Limitations: no limitations Eyes: Conjunctivae: conjunctivae normal Pupils: Equal, round and reactive pupils present Neck: Neck: normal visual inspection and no lymphadenopathy Chest: Chest palpation & inspection: normal inspection of the chest Resp: Effort & Inspection: normal respiratory effort A
[2023-07-05] MEDS: METOCLOPRAMIDE HCL INJ 10 MG/2 ML VIAL IV PUSH (18:30)
[2023-07-05 18:47] VITALS: BP 94/64; PULSE 100; RESP 20; TEMP 36.7; O2SAT 99
== END 2023-07-05 18:57 | disposition home or self-care (01) ==
PROVIDERS: Emergency Provider Emergency Medicine; PCP Family Medicine
DX: U07.1 COVID-19 (principal); R11.2 Nausea with vomiting, unspecified; E03.9 Hypothyroidism, unspecified; E10.9 Type 1 diabetes mellitus without complications; F17.210 Nicotine dependence, cigarettes, uncomplicated; Z79.4 Long term (current) use of insulin; Z79.899 Other long term (current) drug therapy
CPT/HCPCS: 36415; 85025; 87637; 96361; 96374; 96375; 99284; J2405; J2765; J7030

== ENCOUNTER 2023-11-02 00:51 | Emergency (ER) | payer OTHER, SELFPAY ==
[2023-11-02 00:51] VITALS: BP 117/91; PULSE 101; RESP 18; TEMP 37.2; O2SAT 100
--- NOTE | 2023-11-02 01:23 | ED.SKABFB ---
HPI - Skin/Abscess/Foreign Bdy General Chief complaint: Skin/Abscess/Foreign Body Stated complaint: Insect Bite Time Seen by Provider: 11/02/23 01:22 Source: patient Mode of arrival: ambulatory Limitations: no limitations History of Present Illness HPI narrative: patient is a 32-year-old female present tense with a lesion on the left lower extremity it is red erythematous warm to touch about size of a dime with no drainage there is mild warmth and tenderness no fever chills no chest pain no shortness his breath. complaint: lesion Related Data Home Medications Medication Instructions Recorded Confirmed insulin lispro 100 unit/mL 3 unit continuous subcutaneous 07/25/19 11/02/23 subcutaneous solution (Admelog infusion DIRECTED U-100 Insulin lispro) levothyroxine 50 mcg capsule 50 mcg PO DAILY 12/16/19 11/02/23 blood-glucose sensor (Dexcom G6 11/06/20 11/02/23 Sensor device) omeprazole 40 mg capsule,delayed 40 mg PO DAILY 07/05/23 11/02/23 release Allergies Allergy/AdvReac Type Severity Reaction Status Date / Time Latex, Natural Rubber Allergy Severe Hives Verified 07/05/23 17:23 peanut oil Allergy Severe Difficulty Verified 07/05/23 17:23 Breathing Review of Systems Review of Systems: All systems reviewed & are unremarkable except as noted in HPI and below PMFSH Past Medical History Medical History Acute cervicitis Dysmenorrhea Endometriosis Endometritis GERD (gastroesophageal reflux disease) History of seizure As a child. History of UTI Hypothyroidism Irritable bowel syndrome with constipation Ovarian cyst Type 1 diabetes mellitus Surgical History Surgical History H/O: hysterectomy 12/23/[address] san Status post cholecystectomy Status post endometrial ablation 08/06/19 Dr San. Status post ovarian cystectomy 08/06/19 Dr San. Status post tubal ligation 08/06/19 Dr San. Family History Family History Mother Lupus (systemic lupus erythematosus) Scleroderma Diabetes mellitus Heart disease Renal disease Cerebrovascular accident History of blood clots Grandparent Hypertension Father CAD (coronary artery disease) Social History Social History Social History: The patient lives in [place], [place] with her 8-year-old daughter. 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 She tells me she smokes 7-8 cigarettes a day for the last 10 years. She reports occasional marijuana use. She denies alcohol use. Her PCP is Dr. Rodney Grier. She designates her mother, Olya Rodriguez, as her surrogate decision maker and she is full code status. Smoking packs per day: 0.5 Smoking cigarettes per day: 10.0 Years smoked: 4 Smoking pack-years: 2.00 Smoking status: Current some day smoker Tobacco type: cigarettes Second hand tobacco smoke exposure: Yes Smoking end date: 12/22/19 Alcohol intake: never Drinks per week: 1 Substance use: current Substance use type: marijuana Last use: Patient reports last use of Marijuana about 3 weeks ago Gender identity (if verbalized by the patient): Female Sexual Orientation (if Verbalized by the Patient): Straight or Heterosexual Spiritual care concerns: No Agree to blood products: Yes Exam Const: General: healthy appearing Nutritional Appearance: well nourished Orientation/consciousness: patient oriented x3 Limitations: no limitations Chest: Chest palpation & inspection: normal inspection of the chest Resp: Effort & Inspection: normal respiratory effort Auscultation: clear to auscultation bilaterally Cardio: Rate: regular rate Rhythm: regular rhythm GI: GI Palp: Yes Soft to palpation Auscultation: normal bowel sounds Skin: Wounds: wounds noted
[2023-11-02] MEDS: AMOXICILLIN/CLAVULANATE K 875-125 MG TAB 1 TABLET PO (01:35)
== END 2023-11-02 01:42 | disposition home or self-care (01) ==
LOC: CHSED 01:38
PROVIDERS: Emergency Provider Emergency Medicine; PCP Family Medicine
DX: L03.116 Cellulitis of left lower limb (principal); W57.XXXA Bitten or stung by nonvenomous insect and other nonvenomous arthropods, initial encounter; K21.9 Gastro-esophageal reflux disease without esophagitis; E03.9 Hypothyroidism, unspecified; E10.9 Type 1 diabetes mellitus without complications; Z79.4 Long term (current) use of insulin; F17.210 Nicotine dependence, cigarettes, uncomplicated
CPT/HCPCS: 99283; A9270

== ENCOUNTER 2024-01-04 01:27 | Emergency (ER) | payer OTHER, SELFPAY ==
--- NOTE | ~2024-01-04 | CT_ITS ---
CT of the Abdomen and Pelvis: Indication: Abdominal pain Technique: 2.5 mm axial scans were obtained through the abdomen and pelvis following intravenous adm inistration of 100 cc of Omnipaque 350. Dose reduction technique was used on this scan by utilizing a utomated exposure control and iterative reconstruction technique. The dose-length product (DLP) was 1 90.57 mGy-cm. COMPARISON: 01/09/2023 Findings: Scans through the lung bases are unremarkable. The liver, spleen, pancreas, adrenals and kidneys are within normal limits. Probable increased enhanc ement of the urothelium of the renal pelves and ureters bilaterally. Gallbladder absent. No evidence of aortic aneurysm. No lymphadenopathy. No bowel obstruction or bowel wall thickening. There is no evidence to suggest acute appendicitis. Images through the pelvis were performed. There is diffuse urinary bladder wall thickening. No pelvic mass seen. No ascites. Impression: Urinary bladder wall thickening is compatible with cystitis. Enhancing urothelium of the ureters and renal pelves suggests ascending urinary tract infection. No C T evidence of parish pyelonephritis at this time. Reviewed, dictated and finalized at location . Impression: Urinary bladder wall thickening is compatible with cystitis. Enhancing urothelium of the ureters and renal pelves suggests ascending urinary tract infection. No CT evidence of parish pyelonephritis at this time.
[2024-01-04 01:30] VITALS: BP 117/89; PULSE 110; RESP 18; TEMP 36.4; O2SAT 100
--- NOTE | 2024-01-04 01:46 | ECG_ITS ---
Test Date: 2024-01-04 01:56:49 Measurements Intervals [place] Rate: 104 P: 68 NM: 126 QRS: 78 QRSD: 68 T: 60 QT: 321 QTc: 424 Interpretive Statements SINUS TACHYCARDIA NONSPECIFIC T-WAVE ABNORMALITY ABNORMAL RHYTHM ECG No previous ECG available for comparison Electronically Signed On 01-04-2024 07:21:25 CDT by Mik Newberry M.D.
[2024-01-04 02:02] LABS: Basophils Absolute Auto 0.04 K/mm3 (0.00-0.10); Basophils Percent Auto 0.4 % (0.0-1.0); Eosinophils Absolute Auto 0.03 K/mm3 (0.02-0.50); Eosinophils Percent Auto 0.3 % (1.0-6.0); Hematocrit 44.4 % (35.0-49.0); Hemoglobin 14.8 g/dL (12.0-15.0); Immature Granulocyte Absolute 0.04 K/mm3 (0.00-0.00); Immature Granulocyte Percent A 0.4 % (0.0-0.0); Lymphocytes Absolute Auto 1.62 K/mm3 (1.10-4.50); Lymphocytes Percent Auto 14.9 % (18.0-42.0); Mean Corpuscular HGB Conc 33.3 g/dL (32-36); Mean Corpuscular Hemoglobin 30.2 pg (27.0-31.0); Mean Corpuscular Volume 90.6 fL (78.0-102.0); Mean Platelet Volume 10.4 fl (9.2-11.8); Monocytes Absolute Auto 1.09 K/mm3 (0.10-0.90); Neutrophils Absolute Auto 8.06 K/mm3 (1.70-7.20); Platelet Count Result 246 K/mm3 (150-420); Red Cell Distribution Width 11.7 % (11.6-14.4); White Blood Count 10.9 K/mm3 (4.8-10.8)
[2024-01-04] MEDS: SODIUM CHLORIDE 0.9% IV 1,000 ML 999 ML IV CONT (02:08)
[2024-01-04] MEDS: MORPHINE SULFATE (*CRX) 4 MG/ML INJ IV PUSH ×2 (02:08→05:20)
[2024-01-04 02:09] LABS: Appearance Urine Cloudy (Clear); Bilirubin Urine 1+ (Negative); Blood Urine 3+ (Negative); Color Urine Yellow (Yellow); Glucose Urine UA Negative (Negative); Ketones Urine Trace (Negative); Leukocyte Esterase Ur 2+ LEU/UL (Negative); Nitrate Urine Positive (Negative); Protein Urine 3+ (Negative); Specific Grav Ur 1.025 (1.010-1.020); Urobilinogen Urine 0.2 mg/dL (0.2-1.0)
[2024-01-04] MEDS: ONDANSETRON INJ 4 MG/2 ML VIAL IV PUSH ×2 (02:09→05:21)
[2024-01-04 02:16] LABS: INR 0.9; Partial Thromboplastin Time 28.9 Sec (23.9-30.70); Prothrombin Time 10.4 Seconds (9.50-12.1)
[2024-01-04 02:19] LABS: Lactic Acid Reflex 1.3 mmol/L (0.4-2.0)
[2024-01-04 02:22] LABS: Add Urine Microscopic? YES
[2024-01-04 02:23] LABS: Bacteria Urine 3+ /hpf; Squamous Epithelial Cell Urine Rare /hpf (Few); WBC Clumps Urine Present /hpf; WBC Urine >75 /hpf (0-3)
[2024-01-04 02:35] LABS: Alanine Aminotransferase 31 U/L (14-59); Albumin Level 3.7 g/dL (3.4-5.0); Alkaline Phosphatase 124 U/L (46-116); Anion Gap 12 mmol/L (4-12); Aspartate Amino Transferase 20 U/L (15-37); Bilirubin,Total 0.9 mg/dL (0.00-1.00); Blood Urea Nitrogen 38 mg/dL (7-18); Calcium 9.1 mg/dL (8.5-10.1); Carbon Dioxide 27 mmol/L (21-32); Chloride 93 mmol/L (98-108); Estimated CRCL calculation 37 ml/min; Estimated Glomerular Filt Rate 45; Glucose 201 mg/dL (70-99); Lipase 14 U/L (16-77); Osmolality Calculated 289 mOsm/kg (285-295); Potassium 4.5 mmol/L (3.5-5.1); Sodium 132 mmol/L (136-145); Total Protein 8.4 g/dL (6.4-8.2)
--- NOTE | 2024-01-04 05:13 | ED.ABDPAIN ---
HPI - Abdominal Pain General Chief Complaint: Abdominal Pain Stated Complaint: lower back pain Time Seen by Provider: 01/04/24 01:46 Source: patient and family Mode of arrival: ambulatory Limitations: no limitations History of Present Illness HPI narrative: this a 33-year-old female diabetes presents right flank pain radiating to her right groin right lower abdomen with no fever chills does have nausea and vomiting since Sunday with dysuria no hematuria no fever chills no chest pain no shortness of breath. MD elicited complaint: abdominal pain and flank pain Onset (ago): day(s) Pain Consistency: constant Location: RLQ and R flank Severity: severe Pain scale (0-10): 10 Related Data Home Medications Medication Instructions Recorded Confirmed insulin lispro 100 unit/mL 3 unit continuous subcutaneous 07/25/19 01/04/24 subcutaneous solution (Admelog infusion DIRECTED U-100 Insulin lispro) levothyroxine 50 mcg capsule 50 mcg PO DAILY 12/16/19 01/04/24 blood-glucose sensor (Dexcom G6 11/06/20 01/04/24 Sensor device) omeprazole 40 mg capsule,delayed 40 mg PO DAILY 07/05/23 01/04/24 release Allergies Allergy/AdvReac Type Severity Reaction Status Date / Time Latex, Natural Rubber Allergy Severe Hives Verified 01/04/24 01:55 peanut oil Allergy Severe Difficulty Verified 01/04/24 01:55 Breathing Review of Systems Review of Systems: All systems reviewed & are unremarkable except as noted in HPI and below PMFSH Past Medical History Medical History (Updated 01/04/24 @ 06:36 by Mik Henley MD) Acute cervicitis Dysmenorrhea Endometriosis Endometritis GERD (gastroesophageal reflux disease) History of seizure As a child. History of UTI Hypothyroidism Irritable bowel syndrome with constipation Ovarian cyst Type 1 diabetes mellitus Urinary tract infection Surgical History Surgical History H/O: hysterectomy 12/23/[address] san Status post cholecystectomy Status post endometrial ablation 08/06/19 Dr San. Status post ovarian cystectomy 08/06/19 Dr San. Status post tubal ligation 08/06/19 Dr San. Family History Family History Mother Lupus (systemic lupus erythematosus) Scleroderma Diabetes mellitus Heart disease Renal disease Cerebrovascular accident History of blood clots Grandparent Hypertension Father CAD (coronary artery disease) Social History Social History Social History: The patient lives in [place], [place] with her 8-year-old daughter. 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 She tells me she smokes 7-8 cigarettes a day for the last 10 years. She reports occasional marijuana use. She denies alcohol use. Her PCP is Dr. Rodney Grier. She designates her mother, Olya Rodriguez, as her surrogate decision maker and she is full code status. Smoking packs per day: 0.5 Smoking cigarettes per day: 10.0 Years smoked: 4 Smoking pack-years: 2.00 Smoking status: Current some day smoker Tobacco type: cigarettes Second hand tobacco smoke exposure: Yes Smoking end date: 12/22/19 Alcohol intake: never Drinks per week: 1 Substance use: current Substance use type: marijuana Last use: Patient reports last use of Marijuana about 3 weeks ago Gender identity (if verbalized by the patient): Female Sexual Orientation (if Verbalized by the Patient): Straight or Heterosexual Spiritual care concerns: No Agree to blood products: Yes Exam Const: General: no acute distress Nutritional Appearance: well nourished Orientation/consciousness: patient oriented x3 Limitations: no limitations Eyes: Conjunctivae: conjunctivae normal Pupils: Equal, round and reactive pupils present Chest: Chest palpation & inspection: normal inspection of the chest
[2024-01-04] MEDS: levoFLOXacin 500 MG/D5W 100 ML 500 MG/100 ML BAG 100 MG IVPB (06:39)
[2024-01-04] MEDS: KETOROLAC 30 MG/ML VIAL (*BKC) IV PUSH (06:45)
[2024-01-04 06:55] VITALS: BP 90/65; PULSE 83; RESP 18; O2SAT 100
--- NOTE | 2024-01-06 16:13 | PC.NURSE ---
final urine culture report reviewed. > [id number] E. coli isolated. pt discharged with levofloxacin rx. susceptibility report shows sensitivity to levofloxacin. no change in plan of care.
--- NOTE | 2024-01-10 12:41 | PC.NURSE ---
final blood cultures x2 reviewed. no growth after 5 days. no change in plan of care
--- NOTE | 2024-01-12 03:35 | PC.NURSE ---
stop time for Levaquin was 0715 on 01/04/24. PIV was then taken out per protocol with tip intact.
== END 2024-01-04 07:25 | disposition home or self-care (01) ==
PROVIDERS: Emergency Provider Emergency Medicine; PCP Family Medicine
DX: N39.0 Urinary tract infection, site not specified (principal); K21.9 Gastro-esophageal reflux disease without esophagitis; E03.9 Hypothyroidism, unspecified; E10.9 Type 1 diabetes mellitus without complications
CPT/HCPCS: 36415; 74177; 80053; 81001; 83605; 83690; 85025; 85610; 85730; 87040; 87077; 87086; 87088; 87186; 93005; 96361; 96365; 96375; 96376; 99284; J1885; J1956; J2270; J2405; J7030; Q9967

== ENCOUNTER 2024-05-30 23:36 | Emergency (ER) | payer OTHER, SELFPAY ==
[2024-05-30 23:37] VITALS: BP 122/94; PULSE 98; RESP 14; TEMP 36.7; O2SAT 99
[2024-05-30 23:44] VITALS: PULSE 94; RESP 23; O2SAT 100
[2024-05-30 23:45] VITALS: BP 117/76; PULSE 98; RESP 16; O2SAT 99
[2024-05-30 23:46] VITALS: PULSE 96; RESP 13; O2SAT 99
[2024-05-30 23:47] LABS: Glucose Point of Care 351 mg/dl (65-105)
--- NOTE | 2024-05-30 23:47 | PC.NURSE ---
Patient advised to turn insulin pump on for the time being since her blood sugar is so high until treatment plan is established. ERP aware.
--- NOTE | 2024-05-30 23:57 | ED_ITS ---
HPI - General Adult General Chief complaint: Abdominal Pain Stated complaint: abdominal pain Time Seen by Provider: 05/30/24 23:51 Source: patient Mode of arrival: ambulatory Limitations: no limitations History of Present Illness HPI narrative: 33 YEARS OLD WHITE FEMALE DROVE HERSELF TO THE EMERGENCY ROOM COMPLAINING OF NAUSEA AND VOMITING FOR OVER 2 WEEKS. PATIENT IS TELLING ME THAT SHE CANNOT STOP VOMITING FOR 2 WEEKS. PATIENT WAS SEEN BY HER FAMILY PHYSICIAN TWICE SINCE. PATIENT IS TELLING ME THAT HER THYROID HORMONE IS VERY HIGH AND HER FAMILY PHYSICIAN DID NOT DO ANYTHING FOR IT. HISTORY OF DIABETES, HYSTERECTOMY, CHOLECYSTECTOMY, SECTION. PATIENT SMOKES CIGARETTE AND USES MARIJUANA. DENIES ALCOHOL INTAKE. Related Data Home Medications Medication Instructions Recorded Confirmed insulin lispro 100 unit/mL 3 unit continuous subcutaneous 07/25/19 05/30/24 subcutaneous solution (Admelog infusion DIRECTED U-100 Insulin lispro) levothyroxine 50 mcg capsule 50 mcg PO DAILY 12/16/19 05/30/24 blood-glucose sensor (Dexcom G6 11/06/20 05/30/24 Sensor device) omeprazole 40 mg capsule,delayed 40 mg PO DAILY 07/05/23 05/30/24 release Allergies Allergy/AdvReac Type Severity Reaction Status Date / Time Latex, Natural Rubber Allergy Severe Hives Verified 05/30/24 23:55 peanut oil Allergy Severe Difficulty Verified 05/30/24 23:55 Breathing Review of Systems Review of Systems: All systems reviewed & are unremarkable except as noted in HPI and below PMFSH Past Medical History Medical History Acute cervicitis Dysmenorrhea Endometriosis Endometritis GERD (gastroesophageal reflux disease) History of seizure As a child. History of UTI Hypothyroidism Irritable bowel syndrome with constipation Ovarian cyst Type 1 diabetes mellitus Urinary tract infection Surgical History Surgical History H/O: hysterectomy 12/23/[address] san Status post cholecystectomy Status post endometrial ablation 08/06/19 Dr San. Status post ovarian cystectomy 08/06/19 Dr San. Status post tubal ligation 08/06/19 Dr San. Family History Family History Mother Lupus (systemic lupus erythematosus) Scleroderma Diabetes mellitus Heart disease Renal disease Cerebrovascular accident History of blood clots Grandparent Hypertension Father CAD (coronary artery disease) Social History Social History Social History: The patient lives in [place], [place] with her 8-year-old daughter. 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 She tells me she smokes 7-8 cigarettes a day for the last 10 years. She reports occasional marijuana use. She denies alcohol use. Her PCP is Dr. Rodney Grier. She designates her mother, Olya Rodriguez, as her surrogate decision maker and she is full code status. Smoking packs per day: 0.5 Smoking cigarettes per day: 10.0 Years smoked: 4 Smoking pack-years: 2.00 Smoking status: Current some day smoker Tobacco type: cigarettes Second hand tobacco smoke exposure: Yes Smoking end date: 12/22/19 Alcohol intake: never Drinks per week: 1 Substance use: current Substance use type: marijuana Last use: Patient reports last use of Marijuana about 3 weeks ago Gender identity (if verbalized by the patient): Female Sexual Orientation (if Verbalized by the Patient): Straight or Heterosexual Spiritual care concerns: No Agree to blood products: Yes Exam Narrative: GENERAL APPEARANCE: WELL-DEVELOPED, MALNOURISHED SKIN: NORMAL COLOR HEAD: NORMOCEPHALIC, NONTRAUMATIC EYES: CLEAR CONJUNCTIVA ENT: OROPHARYNX NORMAL, EARS NORMAL, NOSE NORMAL NECK: SUPPLE, NONTENDER CHEST AND RESPIRATORY: AIRWAY PATENT, NO RESPIRATORY DISTRESS, NO ACCESSORY MUSCLE USE HEART: REGULAR RATE/RHYTHM ABDOMEN: SOFT, MILD RIGHT UPPER QUADRANT TENDERNESS, NO GUARDING OR REBOUND, NO ORGANOMEGALY, QUIET BOWEL SOUNDS VASCULAR: NORMAL PERIPHERAL PULSES, NORMAL CAPILLARY REFILL. MUSCULOSKELETAL: NORMAL RANGE OF MOTION, NONTENDER BACK NEUROLOGIC: ALERT AND ORIENTED ?3, EPIC AMBULATORY ANALYST IS NORMAL TESTED, NO GROSS MOTOR DEFICIT Course Vital Signs Vital signs: Vital Signs Temperature 36.7 C 05/30/24 23:37 Pulse Rate 98 05/30/24 23:37 Respiratory Rate 14 05/30/24 23:37 Blood Pressure 122/94 H 05/30/24 23:37 Pulse Oximetry 99 05/30/24 23:37 Oxygen Delivery Room Air 05/30/24 23:37 Temperature 36.7 C 05/30/24 23:37 Pulse Rate 89 05/31/24 02:46 Respiratory Rate 17 05/31/24 02:46 Blood Pressure 104/73 05/31/24 02:45 Pulse Oximetry 98 05/31/24 02:46 Oxygen Delivery Room Air 05/30/24 23:37 Medical Decision Making MDM Narrative Medical decision making narrative: PATIENT DROVE HERSELF TO THE EMERGENCY ROOM WITH SEVERE NAUSEA AND VOMITING FOR OVER 2 WEEKS. VITAL SIGNS ARE STABLE PHYSICAL EXAMINATION SHOWING DEBILITATING MALNOURISHED PATIENT, DKA, MARIJUANA INDUCED HYPEREMESIS, ELECTROLYTE IMBALANCE, DEHYDRATION BLOOD WORKUP TODAY SHOWED BLOOD GLUCOSE OF 351, CREATININE OF 1.3, MAGNESIUM OF 1.7, HEMOGLOBIN A1C 11.9 TSH OF 12.25, VENOUS BLOOD GAS SHOWED PH OF 7.3 URINALYSIS SHOWED NO SIGN OF INFECTION PATIENT DECLINED TO BE TRANSFERRED FOR DKA MANAGEMENT AND SIGNED AMA. I DECLARE THAT I HAVE PERSONALLY EXPLAINED TO THE PATIENT THE RISKS AND CONSEQUENCES INVOLVED IN LEAVING THIS FACILITY AT THIS TIME. THE BENEFITS OF CONTINUED TREATMENT AND/OR HOSPITALIZATION. AND THE ALTERNATIVES. IF ANY. TO CONTINUED TREATMENT AND/OR HOSPITALIZATION. IF APPLICABLE.I HAVE NOT IDENTIFIED ANY PSYCHOSIS, DRUGS, MENTAL ILLNESS, OR MEDICAL ILLNESS THAT ALTERS DECISION- MAKING CAPACITY (REASONING ABILITIES ). Differential Diagnosis Differential Diagnosis: ABOVE Vital Signs Vital Signs: Vital Signs Temperature 36.7 C 05/30/24 23:37 Pulse Rate 98 05/30/24 23:37 Respiratory Rate 14 05/30/24 23:37 Blood Pressure 122/94 H 05/30/24 23:37 Pulse Oximetry 99 05/30/24 23:37 Oxygen Delivery Room Air 05/30/24 23:37 Temperature 36.7 C 05/30/24 23:37 Pulse Rate 89 05/31/24 02:46 Respiratory Rate 17 05/31/24 02:46 Blood Pressure 104/73 05/31/24 02:45 Pulse Oximetry 98 05/31/24 02:46 Oxygen Delivery Room Air 05/30/24 23:37 Lab Data 05/30/24 23:40 05/31/24 01:18 Labs: Lab Results 05/30/24 05/30/24 05/30/24 Range/Units 00:25 23:40 23:46 WBC 7.2 (4.8-10.8) K/mm3 RBC 4.67 (4.20-5.40) M/mm3 Hgb 14.4 (12.0-15.0) g/dL Hct 41.5 (35.0-49.0) % MCV 88.9 (78.0-102.0) fL MCH 30.8 (27.0-31.0) pg MCHC 34.7 (32-36) g/dL RDW 12.2 (11.6-14.4) % Plt Count 294 (150-420) K/mm3 MPV 9.9 (9.2-11.8) fl Immature Gran % (Auto) 0.3 H (0.0-0.0) % Neut % (Auto) 58.5 (50.0-70.0) % Lymph % (Auto) 33.4 (18.0-42.0) % [place] % (Auto) 5.6 (2.0-11.0) % Eos % (Auto) 1.1 (1.0-6.0) % Baso % (Auto) 1.1 H (0.0-1.0) % Lymph # (Auto) 2.39 (1.10-4.50) K/mm3 [place] # (Auto) 0.40 (0.10-0.90) K/mm3 Eos # (Auto) 0.08 (0.02-0.50) K/mm3 Baso # (Auto) 0.08 (0.00-0.10) K/mm3 Abs Immat Gran (auto) 0.02 H (0.00-0.00) K/mm3 Absolute Neuts (auto) 4.19 (1.70-7.20) K/mm3 Absolute Nucleated RBC 0.00 (0.00-0.00) K/mm3 Nucleated RBC % 0.0 (0-0.0) % Sodium 133 L (136-145) mmol/L Potassium 5.5 H (3.5-5.1) mmol/L Chloride 94 L (98-108) mmol/L Carbon Dioxide 26 (21-32) mmol/L Anion Gap 13 H (4-12) mmol/L BUN 26 H (7-18) mg/dL Creatinine 1.55 H (0.55-1.02) mg/dL Estim Creat Clear Calc 34 ml/min Estimated GFR 38 L (59 - ) Glucose 351 H (70-99) mg/dL POC Capillary Glucose 351 H (65-105) mg/dl Hemoglobin A1c (<5.7) % Calculated Osmolality 294 (285-295) mOsm/kg Calcium 9.7 (8.5-10.1) mg/dL Phosphorus (2.6-4.7) mg/dL Magnesium (1.8-2.4) mg/dL Total Bilirubin 0.8 (0.00-1.00) mg/dL AST 28 (15-37) U/L ALT 49 (14-59) U/L Alkaline Phosphatase 120 H (46-116) U/L Total Protein 8.9 H (6.4-8.2) g/dL Albumin 4.3 (3.4-5.0) g/dL Lipase 30 (16-77) U/L Beta-Hydroxybutyrate/Acetoacetate Pending TSH 12.25 H (0.36-3.74) uIU/mL Urine Color Yellow (Yellow) Urine Appearance Clear (Clear) Urine pH 5.0 (5.0-8.0) Ur Specific [place] >= 1.030 H (1.010-1.020) Urine Protein 1+ H (Negative) Urine Glucose (UA) 3+ H (Negative) Urine Ketones 1+ H (Negative) Ur Blood (Man) Negative (Negative) Urine Nitrate Negative (Negative) Urine Bilirubin 2+ H (Negative) Urine Urobilinogen 0.2 (0.2-1.0) mg/dL Leukocyte Esterase Rfl Negative (Negative) KURT/UL Urine RBC 0-2 (0-2) /hpf Urine WBC 4-6 H (0-3) /hpf Ur Squamous Epith Cells Few (Few) /hpf Urine Bacteria Trace (None) /hpf Urine Mucus Few H /lpf Urine Opiates Screen Negative (Negative) Urine Methadone Screen Negative (Negative) Ur Barbiturates Screen Negative (Negative) Ur Phencyclidine Scrn Negative (Negative) Ur Amphetamine Screen Negative (Negative) U Benzodiazepines Scrn Negative (Negative) Urine Cocaine Screen Negative (Negative) U Cannabinoids Screen Positive A (Negative) 05/31/24 05/31/24 Range/Units 01:18 01:59 WBC (4.8-10.8) K/mm3 RBC (4.20-5.40) M/mm3 Hgb (12.0-15.0) g/dL Hct (35.0-49.0) % MCV (78.0-102.0) fL MCH (27.0-31.0) pg MCHC (32-36) g/dL RDW (11.6-14.4) % Plt Count (150-420) K/mm3 MPV (9.2-11.8) fl Immature Gran % (Auto) (0.0-0.0) % Neut % (Auto) (50.0-70.0) % Lymph % (Auto) (18.0-42.0) % [place] % (Auto) (2.0-11.0) % Eos % (Auto) (1.0-6.0) % Baso % (Auto) (0.0-1.0) % Lymph # (Auto) (1.10-4.50) K/mm3 [place] # (Auto) (0.10-0.90) K/mm3 Eos # (Auto) (0.02-0.50) K/mm3 Baso # (Auto) (0.00-0.10) K/mm3 Abs Immat Gran (auto) (0.00-0.00) K/mm3 Absolute Neuts (auto) (1.70-7.20) K/mm3 Absolute Nucleated RBC (0.00-0.00) K/mm3 Nucleated RBC % (0-0.0) % Sodium 135 L (136-145) mmol/L Potassium 4.5 (3.5-5.1) mmol/L Chloride 100 (98-108) mmol/L Carbon Dioxide 27 (21-32) mmol/L Anion Gap 8 (4-12) mmol/L BUN 25 H (7-18) mg/dL Creatinine 1.33 H (0.55-1.02) mg/dL Estim Creat Clear Calc 40 ml/min Estimated GFR 45 L (59 - ) Glucose 266 H (70-99) mg/dL POC Capillary Glucose 220 H (65-105) mg/dl Hemoglobin A1c 11.9 H (<5.7) % Calculated Osmolality 293 (285-295) mOsm/kg Calcium 8.5 (8.5-10.1) mg/dL Phosphorus 4.5 (2.6-4.7) mg/dL Magnesium 1.7 L (1.8-2.4) mg/dL Total Bilirubin (0.00-1.00) mg/dL AST (15-37) U/L ALT (14-59) U/L Alkaline Phosphatase (46-116) U/L Total Protein (6.4-8.2) g/dL Albumin (3.4-5.0) g/dL Lipase (16-77) U/L Beta-Hydroxybutyrate/Acetoacetate TSH (0.36-3.74) uIU/mL Urine Color (Yellow) Urine Appearance (Clear) Urine pH (5.0-8.0) Ur Specific [place] (1.010-1.020) Urine Protein (Negative) Urine Glucose (UA) (Negative) Urine Ketones (Negative) Ur Blood (Man) (Negative) Urine Nitrate (Negative) Urine Bilirubin (Negative) Urine Urobilinogen (0.2-1.0) mg/dL Leukocyte Esterase Rfl (Negative) KURT/UL Urine RBC (0-2) /hpf Urine WBC (0-3) /hpf Ur Squamous Epith Cells (Few) /hpf Urine Bacteria (None) /hpf Urine Mucus /lpf Urine Opiates Screen (Negative) Urine Methadone Screen (Negative) Ur Barbiturates Screen (Negative) Ur Phencyclidine Scrn (Negative) Ur Amphetamine Screen (Negative) U Benzodiazepines Scrn (Negative) Urine Cocaine Screen (Negative) U Cannabinoids Screen (Negative) ABG Data ABG results: 05/30/24 23:40 VBG pH 7.30 L VBG pCO2 53.4 H VBG pO2 24.5 L VBG HCO3 25.7 O2 Delivery Device Room air O2 Liters/Min 0.0 Critical Care Time Critical Care Time Critical Care Time: No Discharge Plan Discharge Clinical Impression: DKA, type 1, Hypothyroidism, Left against medical advice Patient Disposition: Left Against Medical Advice Condition: Guarded Prognosis Additional Instructions: RETURN IF SYMPTOMS ARE WORSENING , CALL YOUR FAMILY PHYSICIAN FOR APPOINTMENT, Prescriptions: No Action (DME) Dexcom G6 Sensor Device MISCELLANEOUS omeprazole 40 mg capsule,delayed release(DR/EC) 40 mg PO DAILY levofloxacin 500 mg tablet 500 mg PO DAILY 6 Days Qty: 6 0RF tramadol 50 mg tablet 50 mg PO Q6H PRN (Reason: pain) Qty: 20 0RF insulin lispro [Admelog U-100 Insulin lispro] 100 unit/mL Solution 3 unit continuous subcutaneous infusion DIRECTED Rx Instructions: 3 UNITS/PER HOUR CONTINOUS INSULIN PUMP- BOLUS DOSE W MEALS levothyroxine 50 mcg Capsule 50 mcg PO DAILY Follow-up/Referrals: Mary,Renee Amato MD [Primary Care Provider] -
[2024-05-31] VITALS (32 sets, daily range): BP systolic 95–116; BP diastolic 57–79; PULSE 81–105; RESP 9–26; O2SAT 97–100
[2024-05-31] MEDS: ONDANSETRON INJ 4 MG/2 ML VIAL 8 MG IV PUSH
[2024-05-31] MEDS: SODIUM CHLORIDE 0.9% IV 1,000 ML 999 ML IV CONT ×2 (00:01→02:20)
[2024-05-31 00:06] LABS: Basophils Absolute Auto 0.08 K/mm3 (0.00-0.10); Basophils Percent Auto 1.1 % (0.0-1.0); Eosinophils Absolute Auto 0.08 K/mm3 (0.02-0.50); Eosinophils Percent Auto 1.1 % (1.0-6.0); Hematocrit 41.5 % (35.0-49.0); Hemoglobin 14.4 g/dL (12.0-15.0); Immature Granulocyte Absolute 0.02 K/mm3 (0.00-0.00); Immature Granulocyte Percent A 0.3 % (0.0-0.0); Lymphocytes Absolute Auto 2.39 K/mm3 (1.10-4.50); Lymphocytes Percent Auto 33.4 % (18.0-42.0); Mean Corpuscular HGB Conc 34.7 g/dL (32-36); Mean Corpuscular Hemoglobin 30.8 pg (27.0-31.0); Mean Corpuscular Volume 88.9 fL (78.0-102.0); Mean Platelet Volume 9.9 fl (9.2-11.8); Monocytes Percent Auto 5.6 % (2.0-11.0); Neutrophils Absolute Auto 4.19 K/mm3 (1.70-7.20); Neutrophils Percent Auto 58.5 % (50.0-70.0); Platelet Count Result 294 K/mm3 (150-420); Red Blood Count 4.67 M/mm3 (4.20-5.40); Red Cell Distribution Width 12.2 % (11.6-14.4); White Blood Count 7.2 K/mm3 (4.8-10.8)
[2024-05-31 00:22] LABS: HCO3 VBG 25.7 mEq/l (24.0-30.0); PCO2 VBG 53.4 mmHg (42.0-48.0)
[2024-05-31 00:24] LABS: Device ROOM AIR; PO2 VBG 24.5 mmHg (35.0-45.0)
[2024-05-31 00:28] LABS: Alanine Aminotransferase 49 U/L (14-59); Albumin Level 4.3 g/dL (3.4-5.0); Alkaline Phosphatase 120 U/L (46-116); Anion Gap 13 mmol/L (4-12); Aspartate Amino Transferase 28 U/L (15-37); Bilirubin,Total 0.8 mg/dL (0.00-1.00); Blood Urea Nitrogen 26 mg/dL (7-18); Calcium 9.7 mg/dL (8.5-10.1); Carbon Dioxide 26 mmol/L (21-32); Chloride 94 mmol/L (98-108); Estimated CRCL calculation 34 ml/min; Estimated Glomerular Filt Rate 38; Glucose 351 mg/dL (70-99); Lipase 30 U/L (16-77); Osmolality Calculated 294 mOsm/kg (285-295); Potassium 5.5 mmol/L (3.5-5.1); Sodium 133 mmol/L (136-145); Total Protein 8.9 g/dL (6.4-8.2)
[2024-05-31 00:29] LABS: Thyroid Stimulating Hormone 12.25 uIU/mL (0.36-3.74)
[2024-05-31 00:34] LABS: Bilirubin Urine 2+ (Negative); Blood Urine Negative (Negative); Glucose Urine UA 3+ (Negative); Ketones Urine 1+ (Negative); Leukocyte Esterase Ur Negative LEU/UL (Negative); Nitrate Urine Negative (Negative); Protein Urine 1+ (Negative); Specific Grav Ur >= 1.030 (1.010-1.020); Urobilinogen Urine 0.2 mg/dL (0.2-1.0)
[2024-05-31 00:40] LABS: Add Urine Microscopic? YES; Appearance Urine Clear (Clear); Bacteria Urine Trace /hpf; Color Urine Yellow (Yellow); Mucus Urine Few /lpf; RBC Urine 0-2 /hpf (0-2); Squamous Epithelial Cell Urine Few /hpf (Few)
[2024-05-31 00:43] LABS: Amphetamine Screen Urine Negative (Negative); Barbiturate Screen Urine Negative (Negative); Benzodiazepines Screen Urine Negative (Negative); Cannabinoid Screen Urine Positive (Negative); Cocaine Screen Urine Negative (Negative); Methadone Screen Urine Negative (Negative); Opiate Screen Urine Negative (Negative); Phencyclidine Screen Urine Negative (Negative)
--- NOTE | 2024-05-31 01:14 | PC.NURSE ---
patient updated on plan of care per ERP, also told to turn her insulin pump off at this time for insulin gtt management.
[2024-05-31 01:43] LABS: Anion Gap 8 mmol/L (4-12); Blood Urea Nitrogen 25 mg/dL (7-18); Calcium 8.5 mg/dL (8.5-10.1); Carbon Dioxide 27 mmol/L (21-32); Chloride 100 mmol/L (98-108); Estimated CRCL calculation 40 ml/min; Estimated Glomerular Filt Rate 45; Glucose 266 mg/dL (70-99); Osmolality Calculated 293 mOsm/kg (285-295); Potassium 4.5 mmol/L (3.5-5.1); Sodium 135 mmol/L (136-145)
[2024-05-31 01:48] LABS: Hemoglobin A1C 11.9 % (<5.7)
[2024-05-31 01:51] LABS: Magnesium 1.7 mg/dL (1.8-2.4); Phosphorus 4.5 mg/dL (2.6-4.7)
[2024-05-31 02:01] LABS: Glucose Point of Care 220 mg/dl (65-105)
[2024-05-31] MEDS: LEVOTHYROXINE SODIUM 100 MCG TABLET PO (02:20)
[2024-05-31] MEDS: diphenhydrAMINE HCl INJ 50 MG/ML VIAL 25 MG IV PUSH (02:20)
[2024-05-31] MEDS: METOCLOPRAMIDE HCL INJ 10 MG/2 ML VIAL IV PUSH (02:20)
--- NOTE | 2024-05-31 02:27 | PC.NURSE ---
This RN and ERP have spoke extensively with patient about not leaving AMA and trying to get transferred to another facility for further treatment. Patient states that she is willing to go but she needs to drive herself because she needs to check on her child before she arrive at the next facility. Patient educated on consequences of driving herself and not receiving further treatment as planned. Patient stated that she understands but she is not willing to take an ambulance to the next facility and would rather sign out AMA at this time. Patient educated on DKA and ROSEY and non treatment consequences, however patient is A/O x 4 and states that if she needs further treatment after here, she will drive to [place] if she needs to later to get further treatment.
[2024-05-31 03:06] LABS: Glucose Point of Care 178 mg/dl (65-105)
[2024-06-02 03:45] LABS: Beta-Hydroxybutyrate/Acetoacetate 0.98 mmol/L (0.02-0.27)
== END 2024-05-31 04:01 | disposition left against medical advice (07) ==
PROVIDERS: Emergency Provider Emergency Medicine; PCP Family Medicine
DX: E10.10 Type 1 diabetes mellitus with ketoacidosis without coma (principal); E03.9 Hypothyroidism, unspecified; F17.210 Nicotine dependence, cigarettes, uncomplicated; Z79.4 Long term (current) use of insulin; Z79.899 Other long term (current) drug therapy
CPT/HCPCS: 36415; 80048; 80053; 80307; 81001; 82010; 82803; 82948; 83036; 83690; 83735; 84100; 84443; 85025; 96361; 96374; 96375; 99284; A9270; J1200; J2405; J2765; J7030

== ENCOUNTER 2024-07-27 02:49 | Emergency (ER) | payer OTHER, SELFPAY ==
[2024-07-27 02:55] VITALS: BP 129/80; PULSE 107; RESP 18; TEMP 35.8; O2SAT 100
[2024-07-27 02:56] LABS: Glucose Point of Care 205 mg/dl (65-105)
--- NOTE | 2024-07-27 03:02 | ED_ITS ---
HPI - Nausea/Vomiting/Diarrhea General Chief complaint: Abdominal Pain Stated complaint: n/v/d Time Seen by Provider: 07/27/24 03:01 Source: patient Mode of arrival: EMS Limitations: no limitations History of Present Illness HPI Narrative: 33-year-old female with a history of diabetes mellitus, hypothyroidism, GERD, IBS presents to the ED with a 3 day history of -- multiple episodes of nausea and vomiting. no diarrhea. -- diffuse abdominal pain -- Fever with a T-max of 101? patient had a blood sugar of 205. MD elicited complaint: nausea and vomiting Pertinent past history: anorexia Onset (ago): day(s) ( Three days) Description of vomiting: watery Associated nausea: Yes Associated abdominal pain: Yes Location of pain: epigastric Pain consistency: constant Severity: moderate Quality: aching Exacerbating factors: none Relieving factors: none Associated symptoms: nausea/vomiting Related Data Home Medications ?Medication ?Instructions ?Recorded ?Confirmed ?Last Taken ?Type insulin lispro 100 unit/mL 3 unit continuous subcutaneous 07/25/19 07/27/24 07/27/24 History subcutaneous solution (Admelog infusion DIRECTED U-100 Insulin lispro) levothyroxine 50 mcg capsule 50 mcg PO DAILY 12/16/19 07/27/24 07/26/24 History blood-glucose sensor (Dexcom G6 11/06/20 07/27/24 05/30/24 History Sensor device) omeprazole 40 mg capsule,delayed 40 mg PO DAILY 07/05/23 07/27/24 07/26/24 History release Allergies Allergy/AdvReac Type Severity Reaction Status Date / Time Latex, Natural Rubber Allergy Severe Hives Verified 07/27/24 03:09 peanut oil Allergy Severe Difficulty Verified 07/27/24 03:09 Breathing Review of Systems 2 Review of Systems: All systems reviewed & are unremarkable except as noted in HPI and below Constitutional: Constitutional: Reports as per HPI, Reports no additional constitutional complaints and Reports fever(s) Eyes: Eyes: Reports as per HPI and Reports no additional eye complaints ENT: Reports system reviewed and no additional complaints, except as documented and Reports as per HPI Cardiovascular: Cardiovascular: Reports as per HPI and Reports no additional cardiovascular complaints Respiratory: Respiratory: Reports as per HPI and Reports no additional respiratory complaints Gastrointestinal: Gastrointestinal: Reports as per HPI, Reports no additional gastrointestinal complaints, Reports abdominal pain, Reports nausea and Reports vomiting Genitourinary: Genitourinary: Reports no additional female genitourinary complaints and Reports as per HPI Musculoskeletal: Musculoskeletal: Reports no additional musculoskeletal complaints and Reports as per HPI Integumentary/Breasts: Skin/Breast: Reports system reviewed and no additional complaints, except as docu and Reports as per HPI Neurologic: Reports system reviewed and no additional complaints, except as documented and Reports as per HPI Psychiatric: Psychiatric: Reports no additional psychiatric complaints and Reports as per HPI Endocrine: Endocrine: Reports no additional endocrine complaints and Reports as per HPI Hematologic/Lymphatic: Hematologic/Lymphatic: Reports no additional hematologic/lymphatic complaints and Reports as per HPI Allergic/Immunologic: Allergic/Immunologic: Reports no additional allergic/immunologic complaints and Reports as per HPI [facility] Past Medical History Medical History Urinary tract infection Endometriosis Irritable bowel syndrome with constipation Ovarian cyst Endometritis History of seizure As a child. History of UTI Hypothyroidism Type 1 diabetes mellitus Acute cervicitis GERD (gastroesophageal reflux disease) Dysmenorrhea Surgical History Surgical History H/O: hysterectomy 12/23/[address] san Status post cholecystectomy Status post ovarian cystectomy 08/06/19 Dr San. Status post tubal ligation 08/06/19 Dr San. Status post endometrial ablation 08/06/19 Dr San. Family History Family History Mother Lupus (systemic lupus erythematosus) Scleroderma Diabetes mellitus Heart disease Renal disease Cerebrovascular accident History of blood clots Grandparent Hypertension Father CAD (coronary artery disease) Social History Social History Social History: The patient lives in [place], [place] with her 8-year-old daughter. 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 She tells me she smokes 7-8 cigarettes a day for the last 10 years. She reports occasional marijuana use. She denies alcohol use. Her PCP is Dr. Rodney Grier. She designates her mother, Olya Rodriguez, as her surrogate decision maker and she is full code status. Smoking packs per day: 0.5 Smoking cigarettes per day: 10.0 Years smoked: 4 Smoking pack-years: 2.00 Smoking status: Current some day smoker Tobacco type: cigarettes Second hand tobacco smoke exposure: Yes Smoking end date: 12/22/19 Alcohol intake: never Drinks per week: 1 Substance use: current Substance use type: marijuana Last use: Patient reports last use of Marijuana about 3 weeks ago Gender identity (if verbalized by the patient): Female Sexual Orientation (if Verbalized by the Patient): Straight or Heterosexual Spiritual care concerns: No Agree to blood products: Yes Exam 2 Const: General: ill appearing Nutritional Appearance: thin O rientation/consciousness: patient oriented x3 Limitations: no limitations HENMT: Head: normal to inspection Ears: external ears normal F nimesh/Nose/Sinus: Normal external nose present Face and sinus: normal facial exam Mouth: Yes Normal oral and palatal mucosa present Throat: posterior oropharynx normal Eyes: Conjunctivae: conjunctivae normal Cornea: corneas normal Pupils: E qual, round and reactive pupils present EOM: EOMs intact bilaterally D irect Ophthalmoscopy: no photophobia Neck: Neck: normal visual inspection, no lymphadenopathy and no meningeal signs Chest: Chest palpation & inspection: normal inspection of the chest Resp: Effort & Inspection: normal respiratory effort Auscultation: clear to auscultation bilaterally Cardio: Rate: regular rate Rhythm: regular rhythm GI: GI Palp: Yes Soft to palpation Auscultation: normal bowel sounds O ther: Diffuse tenderness without any rigidity / rebound. : General: Yes no CVA tenderness Back/Spine/Pelvis: Back: no CVA tenderness Skin: General skin exam: normal color Rashes: no rashes Wounds: no wounds Neuro: General: patient oriented x3, moves all extremities, no meningeal signs, no focal motor deficits and CN's II-XI intact bilaterally Cranial nerves: Yes Nystagmus not present Speech: normal speech Extrem: General: normal to inspection and no clubbing, cyanosis or edema Psych: Mental Status: mental status grossly normal Affect: normal affect Attitude: cooperative Course Course Emergency Course: fever diabetes mellitus with elevated blood sugar of 200 with an anion gap of 16. serum bicarbonate and is noted to be 23. Will give IV fluids and IV insulin. Patient is on an insulin pump. nausea/vomiting /abdominal pain-- patient is noted to have a normal white cell count, normal lactate and normal lipase level. dehydration/ renal insufficiency BUN/ creatinine noted to be 36/1.3 Hypothyroidism influenza a repeat chemistry revealed a blood sugar of 126. BUN/ creatinine was noted to be 31/1.1 Vital Signs Vital signs: Vital Signs Oxygen Delivery Room Air 07/27/24 02:49 Temperature 35.8 C L 07/27/24 02:55 Pulse Rate 107 H 07/27/24 02:55 Respiratory Rate 18 07/27/24 02:55 Blood Pressure 129/80 07/27/24 02:55 Pulse Oximetry 100 07/27/24 02:55 Oxygen Delivery Room Air 07/27/24 02:55 MDM - Nausea/Vomiting/Diarrhea MDM Narrative Medical decision making narrative: influenza a hypothyroidism gastritis Type 1 diabetes mellitus with elevated blood sugars renal insufficiency secondary to dehydration Differential Diagnosis Differential diagnosis: Likely traveler's diarrhea and food poisoning Medical Records Attestation: I reviewed the patient's medical records. Lab Data Attestation: I reviewed the patient's lab results. 07/27/24 03:14 07/27/24 06:21 Labs: Lab Results 07/27/24 07/27/24 07/27/24 Range/Units 02:53 03:14 05:37 WBC 5.3 (4.8-10.8) K/mm3 RBC 4.66 (4.20-5.40) M/mm3 Hgb 14.2 (12.0-15.0) g/dL Hct 41.3 (35.0-49.0) % MCV 88.6 (78.0-102.0) fL MCH 30.5 (27.0-31.0) pg MCHC 34.4 (32-36) g/dL RDW 11.9 (11.6-14.4) % Plt Count 221 (150-420) K/mm3 MPV 9.7 (9.2-11.8) fl Immature Gran % (Auto) 0.2 H (0.0-0.0) % Neut % (Auto) 70.5 H (50.0-70.0) % Lymph % (Auto) 17.5 L (18.0-42.0) % Appling % (Auto) 10.4 (2.0-11.0) % Eos % (Auto) 0.8 L (1.0-6.0) % Baso % (Auto) 0.6 (0.0-1.0) % Lymph # (Auto) 0.93 L (1.10-4.50) K/mm3 Appling # (Auto) 0.55 (0.10-0.90) K/mm3 Eos # (Auto) 0.04 (0.02-0.50) K/mm3 Baso # (Auto) 0.03 (0.00-0.10) K/mm3 Abs Immat Gran (auto) 0.01 H (0.00-0.00) K/mm3 Absolute Neuts (auto) 3.74 (1.70-7.20) K/mm3 Absolute Nucleated RBC 0.00 (0.00-0.00) K/mm3 Nucleated RBC % 0.0 (0-0.0) % Sodium 134 L (136-145) mmol/L Potassium 3.9 (3.5-5.1) mmol/L Chloride 95 L (98-108) mmol/L Carbon Dioxide 23 (21-32) mmol/L Anion Gap 16 H (4-12) mmol/L BUN 36 H (7-18) mg/dL Creatinine 1.31 H (0.55-1.02) mg/dL Estim Creat Clear Calc 40 ml/min Estimated GFR 46 L (59 - ) Glucose 200 H (70-99) mg/dL POC Capillary Glucose 205 H 179 H (65-105) mg/dl Calculated Osmolality 292 (285-295) mOsm/kg Lactic Acid 1.3 (0.4-2.0) mmol/L Calcium 9.3 (8.5-10.1) mg/dL Total Bilirubin 0.5 (0.00-1.00) mg/dL AST 25 (15-37) U/L ALT 36 (14-59) U/L Alkaline Phosphatase 102 (46-116) U/L Troponin I < 4.0 (0.00-60.4) ng/L Total Protein 8.5 H (6.4-8.2) g/dL Albumin 4.2 (3.4-5.0) g/dL Lipase 22 (16-77) U/L TSH 17.37 H (0.36-3.74) uIU/mL Urine Color Yellow (Yellow) Urine Appearance Clear (Clear) Urine pH 5.5 (5.0-8.0) Ur Specific Deweese >= 1.030 H (1.010-1.020) Urine Protein 2+ H (Negative) Urine Glucose (UA) Negative (Negative) Urine Ketones 2+ H (Negative) Ur Blood (Man) Negative (Negative) Urine Nitrate Negative (Negative) Urine Bilirubin 2+ H (Negative) Urine Urobilinogen 0.2 (0.2-1.0) mg/dL Leukocyte Esterase Rfl Negative (Negative) KURT/UL Ur Squamous Epith Cells Moderate H (Few) /hpf Amorphous Sediment Heavy H (None) Urine Mucus Moderate H /lpf Influenza A (RT-PCR) Positive A (Negative) Influenza B (RT-PCR) Negative (Negative) RSV (RT-PCR) Negative (Negative) SARS-CoV-2 RNA (RT-PCR) Negative (Negative) 07/27/24 Range/Units 06:21 WBC (4.8-10.8) K/mm3 RBC (4.20-5.40) M/mm3 Hgb (12.0-15.0) g/dL Hct (35.0-49.0) % MCV (78.0-102.0) fL MCH (27.0-31.0) pg MCHC (32-36) g/dL RDW (11.6-14.4) % Plt Count (150-420) K/mm3 MPV (9.2-11.8) fl Immature Gran % (Auto) (0.0-0.0) % Neut % (Auto) (50.0-70.0) % Lymph % (Auto) (18.0-42.0) % Appling % (Auto) (2.0-11.0) % Eos % (Auto) (1.0-6.0) % Baso % (Auto) (0.0-1.0) % Lymph # (Auto) (1.10-4.50) K/mm3 Appling # (Auto) (0.10-0.90) K/mm3 Eos # (Auto) (0.02-0.50) K/mm3 Baso # (Auto) (0.00-0.10) K/mm3 Abs Immat Gran (auto) (0.00-0.00) K/mm3 Absolute Neuts (auto) (1.70-7.20) K/mm3 Absolute Nucleated RBC (0.00-0.00) K/mm3 Nucleated RBC % (0-0.0) % Sodium 137 (136-145) mmol/L Potassium 3.7 (3.5-5.1) mmol/L Chloride 102 (98-108) mmol/L Carbon Dioxide 23 (21-32) mmol/L Anion Gap 12 (4-12) mmol/L BUN 31 H (7-18) mg/dL Creatinine 1.08 H (0.55-1.02) mg/dL Estim Creat Clear Calc 49 ml/min Estimated GFR 58 L (59 - ) Glucose 126 H (70-99) mg/dL POC Capillary Glucose (65-105) mg/dl Calculated Osmolality 292 (285-295) mOsm/kg Lactic Acid (0.4-2.0) mmol/L Calcium 8.1 L (8.5-10.1) mg/dL Total Bilirubin (0.00-1.00) mg/dL AST (15-37) U/L ALT (14-59) U/L Alkaline Phosphatase (46-116) U/L Troponin I (0.00-60.4) ng/L Total Protein (6.4-8.2) g/dL Albumin (3.4-5.0) g/dL Lipase (16-77) U/L TSH (0.36-3.74) uIU/mL Urine Color (Yellow) Urine Appearance (Clear) Urine pH (5.0-8.0) Ur Specific Deweese (1.010-1.020) Urine Protein (Negative) Urine Glucose (UA) (Negative) Urine Ketones (Negative) Ur Blood (Man) (Negative) Urine Nitrate (Negative) Urine Bilirubin (Negative) Urine Urobilinogen (0.2-1.0) mg/dL Leukocyte Esterase Rfl (Negative) KURT/UL Ur Squamous Epith Cells (Few) /hpf Amorphous Sediment (None) Urine Mucus /lpf Influenza A (RT-PCR) (Negative) Influenza B (RT-PCR) (Negative) RSV (RT-PCR) (Negative) SARS-CoV-2 RNA (RT-PCR) (Negative) Discharge Plan Discharge Clinical Impression: Influenza A, Hyperglycemia due to diabetes mellitus Hypothyroidism Qualifiers: Hypothyroidism type: unspecified Qualified Code(s): E03.9 - Hypothyroidism, unspecified Gastritis Qualifiers: Gastritis type: unspecified gastritis Chronicity: unspecified Gastritis bleeding: without bleeding Qualified Code(s): K29.70 - Gastritis, unspecified, without bleeding Patient Disposition: Home, Self-Care Condition: Stable Instructions: Antibiotic Form, Gastritis (ED), Hypothyroidism (ED), Influenza (ED) Patient Language: Malian Prescriptions: New levothyroxine 75 mcg capsule 75 mcg PO DAILY Qty: 90 0RF prochlorperazine [Compazine] 25 mg suppository 25 mg RECTAL Q12H PRN (Reason: nausea and vomiting) Qty: 12 0RF No Action (DME) Dexcom G6 Sensor Device MISCELLANEOUS omeprazole 40 mg capsule,delayed release(DR/EC) 40 mg PO DAILY insulin lispro [Admelog U-100 Insulin lispro] 100 unit/mL Solution 3 unit continuous subcutaneous infusion DIRECTED Rx Instructions: 3 UNITS/PER HOUR CONTINOUS INSULIN PUMP- BOLUS DOSE W MEALS levothyroxine 50 mcg Capsule 50 mcg PO DAILY Follow-up/Referrals: Mary,Renee Amato MD [Primary Care Provider] - Time of Disposition: 06:46
--- NOTE | 2024-07-27 03:17 | PC.NURSE ---
COVID PCR obtained and sent to lab
[2024-07-27 03:30] LABS: Basophils Absolute Auto 0.03 K/mm3 (0.00-0.10); Basophils Percent Auto 0.6 % (0.0-1.0); Eosinophils Absolute Auto 0.04 K/mm3 (0.02-0.50); Eosinophils Percent Auto 0.8 % (1.0-6.0); Hematocrit 41.3 % (35.0-49.0); Hemoglobin 14.2 g/dL (12.0-15.0); Immature Granulocyte Absolute 0.01 K/mm3 (0.00-0.00); Immature Granulocyte Percent A 0.2 % (0.0-0.0); Lymphocytes Absolute Auto 0.93 K/mm3 (1.10-4.50); Lymphocytes Percent Auto 17.5 % (18.0-42.0); Mean Corpuscular HGB Conc 34.4 g/dL (32-36); Mean Corpuscular Hemoglobin 30.5 pg (27.0-31.0); Mean Corpuscular Volume 88.6 fL (78.0-102.0); Mean Platelet Volume 9.7 fl (9.2-11.8); Monocytes Absolute Auto 0.55 K/mm3 (0.10-0.90); Monocytes Percent Auto 10.4 % (2.0-11.0); Neutrophils Absolute Auto 3.74 K/mm3 (1.70-7.20); Neutrophils Percent Auto 70.5 % (50.0-70.0); Platelet Count Result 221 K/mm3 (150-420); Red Blood Count 4.66 M/mm3 (4.20-5.40); Red Cell Distribution Width 11.9 % (11.6-14.4); White Blood Count 5.3 K/mm3 (4.8-10.8)
[2024-07-27 03:51] LABS: Lactic Acid Reflex 1.3 mmol/L (0.4-2.0)
[2024-07-27 03:54] LABS: Alanine Aminotransferase 36 U/L (14-59); Albumin Level 4.2 g/dL (3.4-5.0); Alkaline Phosphatase 102 U/L (46-116); Anion Gap 16 mmol/L (4-12); Aspartate Amino Transferase 25 U/L (15-37); Bilirubin,Total 0.5 mg/dL (0.00-1.00); Blood Urea Nitrogen 36 mg/dL (7-18); Calcium 9.3 mg/dL (8.5-10.1); Carbon Dioxide 23 mmol/L (21-32); Chloride 95 mmol/L (98-108); Estimated CRCL calculation 40 ml/min; Estimated Glomerular Filt Rate 46; Glucose 200 mg/dL (70-99); Lipase 22 U/L (16-77); Osmolality Calculated 292 mOsm/kg (285-295); Potassium 3.9 mmol/L (3.5-5.1); Sodium 134 mmol/L (136-145); Thyroid Stimulating Hormone 17.37 uIU/mL (0.36-3.74); Total Protein 8.5 g/dL (6.4-8.2)
[2024-07-27] MEDS: LACTATED RINGERS 1,000 ML 999 ML IV CONT (03:54)
[2024-07-27 03:55] LABS: Troponin I < 4.0 ng/L (0.00-60.4)
[2024-07-27] MEDS: ONDANSETRON INJ 4 MG/2 ML VIAL IV PUSH (03:56)
[2024-07-27] MEDS: HYDROmorphone HCL INJ (*CRX) 2 MG/ML VIAL 0.5 MG IV PUSH (03:56)
[2024-07-27 04:07] LABS: SARS-CoV-2 RNA PCR Negative (Negative)
[2024-07-27 04:08] LABS: Influenza A QL RT-PCR Positive (Negative); Influenza B QL RT-PCR Negative (Negative); RSV RNA, RT-PCR Negative (Negative)
[2024-07-27 04:29] LABS: Add Urine Microscopic? YES; Appearance Urine Clear (Clear); Bilirubin Urine 2+ (Negative); Blood Urine Negative (Negative); Color Urine Yellow (Yellow); Glucose Urine UA Negative (Negative); Ketones Urine 2+ (Negative); Leukocyte Esterase Ur Negative LEU/UL (Negative); Nitrate Urine Negative (Negative); Protein Urine 2+ (Negative); Specific Grav Ur >= 1.030 (1.010-1.020); Urobilinogen Urine 0.2 mg/dL (0.2-1.0); pH Urine 5.5 (5.0-8.0)
[2024-07-27 04:35] LABS: Amorphous Sediment Urine Heavy; Squamous Epithelial Cell Urine Moderate /hpf (Few)
[2024-07-27 04:36] LABS: Mucus Urine Moderate /lpf
[2024-07-27] MEDS: PROCHLORPERAZINE EDISYLATE 10 MG/2 ML VIAL IV PUSH (04:54)
--- NOTE | 2024-07-27 05:19 | PC.NURSE ---
Gave pt cup of apple juice per ERP request.
[2024-07-27 05:40] LABS: Glucose Point of Care 179 mg/dl (65-105)
[2024-07-27] MEDS: SODIUM CHLORIDE 0.9% IV 1,000 ML 999 ML IV CONT (05:40)
[2024-07-27] MEDS: INSULIN HUMAN REGULAR (*BKC) 1,000 UNITS/10 ML VIAL 5 UNITS IV PUSH (05:41)
[2024-07-27 06:37] LABS: Anion Gap 12 mmol/L (4-12); Blood Urea Nitrogen 31 mg/dL (7-18); Calcium 8.1 mg/dL (8.5-10.1); Carbon Dioxide 23 mmol/L (21-32); Chloride 102 mmol/L (98-108); Estimated CRCL calculation 49 ml/min; Estimated Glomerular Filt Rate 58; Glucose 126 mg/dL (70-99); Osmolality Calculated 292 mOsm/kg (285-295); Potassium 3.7 mmol/L (3.5-5.1); Sodium 137 mmol/L (136-145)
[2024-07-27 07:07] LABS: Glucose Point of Care 122 mg/dl (65-105)
[2024-07-27 07:10] VITALS: BP 112/70; PULSE 110; RESP 18; TEMP 36.6; O2SAT 98
--- OUTSIDE RECORDS SUMMARY | 2024-08-03 01:10 | XMS_ITS | Encounter Summary ---
Author Organization [facility] Address Formerly [facility], [facility] [place] [address] [place] [address] Care Team Providers Care Pin Chaser Name Role Phone Renee Hernandez MD Primary Care Provider [phone] Encounter Details Date Type Department Care Team (Latest Contact Info) Description 05/22/2024 Travel Social History Tobacco Use Types Packs/Day Years Used Date Smoking Tobacco: Every Day Cigarettes Smokeless Tobacco: Never Alcohol Use Standard Drinks/Week Comments No 0 (1 standard drink = 0.6 oz pur e alcohol) AUDIT-C Answer Date Recorded Frequency of Alcohol Consumption Never 04/09/2018 Average Number of Drinks Not on file 018 Frequency of Binge Drinking Not on file 03/23 Comments No Sex and Gender Information Value Date Recorded Sex Assigned at Female 04/08/2018 12:39 PM CDT Legal Sex Female 10:27 PM CDT Gender Identity Female 04/08/2018 12:39 PM CDT Sexual Orientation Straight 04/08/2018 12 :39 PM CDT documented as of this encounter Plan of Treatment Not on file documented as of this encounter Visit Diagnoses Not on filedocumented in this encounter Additional Health Concerns Infection Onset Date Last Indicated Resolved Time COVID-19 Rule Out 05/22/2024 05/22/2024 05/23/2024 2:08 PM CDT documented as of this encounter Care Teams Pin Chaser Relationship Specialty Start Date End Date Renee Hernandez MD [address] [place] [address] PCP - General FAMILY PRACTICE 03/19/21 documented as of this encounter
--- OUTSIDE RECORDS SUMMARY | 2024-08-03 01:10 | XMS_ITS | Encounter Summary ---
Author Organization [facility] Address [address] [place] [address]. [place] [address] [place] [address] Care Team Providers Care Associate Professor Of Theatre Name Role Phone Renee Hernandez MD Primary Care Provider [phone] Encounter Details Date Type Department Care Team (Late st Contact Info) Description 07/29/2021 Orders Only [facility] [address] [place], [place] [id number] Renee Hernandez MD [address] [place] [address] Social History Tobacco Use Types Packs/Day Years [...] Orientation Straight 04/08/2018 12 :39 PM CDT COVID-19 Exposure Response Date Recorded In the last month, have you been in contact with someone who was confirmed or suspected to have Coronavirus / COVID-19? No / Unsure 07/29/2021 11:22 AM BLOOD SPLATTER ANALYST documented as of this encounter Plan of Treatment Not on file documented as of this encounter Results * AMYLASE (07/29/2021 11:47 AM BLOOD SPLATTER ANALYST) AMYLASE S/P/B 49 25 - 115 UNITS/L 07/29/2021 12:08 PM BLOOD SPLATTER ANALYST [facility] 07/29/2021 11:4 7 AM BLOOD SPLATTER ANALYST us Renee Hernandez MD LABORATORY Final Result Performing Organization Address [facility] Co de Phone Number [facility] [address] [place] [phone], * (ABNORMAL) LIPASE (07/29/2021 11:47 AM BLOOD SPLATTER ANALYST) LIPASE 52(L) 73 - 393 UNITS/L 07/29/2021 12:08 PM BLOOD SPLATTER ANALYST [facility] 07/29/2021 11:4 7 AM BLOOD SPLATTER ANALYST us Renee Hernandez MD LABORATORY Final Result Performing Organization Address [facility] de Phone Number [facility] [address] [place] [address], [place] [phone] * LACTIC ACID (07/29/2021 11:47 AM BLOOD SPLATTER ANALYST) LACTIC ACID VENOUS 1.9 0.4 - 2.0 MMOL/L 07/29/2021 12:11 PM BLOOD SPLATTER ANALYST [facility] 07/29/2021 11:4 7 AM BLOOD SPLATTER ANALYST us Renee Hernandez MD LABORATORY Final Result Performing Organization Address [facility] de Phone Number [facility] [address] [place] [address], [place] [phone] * (ABNORMAL) COMPREHENSIVE METABOLIC PANEL (07/29/2021 11:47 AM BLOOD SPLATTER ANALYST) SODIUM S/P/B 135(L) 136 - 145 MMOL/L 07/29/2021 12:08 PM BLOOD SPLATTER ANALYST [facility] POTASSIUM S/P/B 5.5(H) 3.5 - 5.1 MMOL/L 07/29/2021 12:08 PM [facility] CHLORIDE S/P/B 96(L) 98 - 107 MMOL/L 07/29/2021 12:08 PM [facility] CO2 20.5(L) 21.0 - 32.0 MMOL/L 07/29/2021 12:08 PM [facility] GLUCOSE 452(H) 70 - 99 MG/DL 07/29/2021 12:08 PM [facility] Comment: FASTING GLUCOSE 100 TO 125 MG/DL IS CONSISTENT WITH IMPAIRED FASTING GLUCOSE. FASTING GLUCOSE >125 MG/DL IS CONSISTENT WITH DIABETES. RANDOM GLUCOSE >200 MG/DL WITH HYPERGLYCEMIC SYMPTOMS IS CONSISTENT WITH DIABETES. PER ADA GUIDELINES BUN 38(H) 6 - 24 MG/DL 07/29/2021 12:08 PM [facility] CREATININE S/P/B 1.44(H) 0.55 - 1.02 MG/DL 07/29/2021 12:08 PM [facility] CALCIUM S/P/B 9.4 8.4 - 10.5 MG/DL 07/29/2021 12:08 PM [facility] BILIRUBIN TOTAL S/P/B 0.9 0.2 - 1.0 MG/DL 07/29/2021 12:08 PM [facility] Comment: THIS ASSAY IS NOT RECOMMENDED FOR PATIENTS UNDERGOING TREATMENT WITH ELTROMBOPAG DUE TO THE POTENTIAL FOR FALSELY ELEVATED RESULTS. ALKALINE PHOSPHATASE S/P/B 136(H) 37 - 98 U/L 07/29/2021 12:08 PM [facility] AST 25 15 - 37 U/L 07/29/2021 12:08 PM [facility] ALT 35 14 - 59 U/L 07/29/2021 12:08 PM [facility] TOTAL PROTEIN S/P/B 8.3(H) 6.4 - 8.2 G/DL 07/29/2021 12:08 PM [facility] ALBUMIN S/P/B 4.4 3.4 - 5.0 G/DL 07/29/2021 12:08 PM [facility] ANION GAP 18.5(H) 5.0 - 15.0 MMOL/L 07/29/2021 12:08 PM [facility] OSMOLALITY (CALC) 309 MOSM/KG 022 12:08 PM [facility] Comment:REFERENCE RANGE NOT ESTABLISHED EGFR NON-AFR. AMER. 48(L) >89 ML/MIN/1. 73 M2 07/29/2021 12:08 PM [facility] EGFR AFR. AMER. 56(L) >89 ML/MIN/1. 73 M2 07/29/2021 12:08 PM [facility] GFR NOTES GFR REFERENCE S: 07/29/2021 12:08 PM [facility] Comment: THE ESTIMATED GFR IS CALCULATED USING THE 2009 CKD-EPI EQUATION. THE FOLLOWING CATEGORIES FOR GRADING RENAL FUNCTION ARE RECOMMENDED BY THE INTERNATIONAL SOCIETY OF NEPHROLOGY (KDIGO 2012 CLINICAL PRACTICE GUIDELINE). G1,NORMAL OR HIGH: >89 ml/min/1.73 m2 G2,MILDLY DECREASED: 60-89 ml/min/1.73 m2 G3A,MILDLY TO MODERATELY DECREASED: 45-59 ml/min/1.73 m2 G3B,MODERATELY TO SEVERELY DECREASED: 30-44 ml/min/1.73 m2 G4,SEVERELY DECREASED: 15-29 ml/min/1.73 m2 G5,KIDNEY FAILURE: <15 ml/min/1.73 m2 07/29/2021 11:4 7 AM BLOOD SPLATTER ANALYST us Renee Hernandez MD LABORATORY Final Result [facility] [address] [place] [address], * (ABNORMAL) CBC W/DIFF AUTOMATED (07/29/2021 11:47 AM BLOOD SPLATTER ANALYST) WBC 8.7 4.0 - 10.8 x10'3/uL 07/29/2021 11:55 AM BLOOD SPLATTER ANALYST [facility] RBC 4.52 4.10 - 5.40 x10'6/uL 07/29/2021 11:55 AM BLOOD SPLATTER ANALYST [facility] HGB 13.6 12.0 - 16.0 G/DL 07/29/2021 11:55 AM [facility] HCT 42.2 36.0 - 47.0 % 07/29/2021 11:55 AM [facility] MCV 93.4 78.0 - 100.0 FL 07/29/2021 11:55 AM [facility] MCH 30.1 27.0 - 31.0 PG 07/29/2021 11:55 AM [facility] MCHC 32.2(L) 33.0 - 36.0 G/DL 07/29/2021 11:55 AM [facility] RDW 12.6 11.5 - 14.5 % 07/29/2021 11:55 AM [facility] PLT 256 150 - 350 x10'3/uL 07/29/2021 11:55 AM [facility] MPV 9.9 7.4 - 10.4 FL 07/29/2021 11:55 AM [facility] DIFFERENTIAL COMMENT NORMAL REFERENCE RANGE NOT ESTABLISHED FOR THE PROPORTIONAL LEUKOCYTE DIFFERENTIAL. 07/29/2021 11:55 AM [facility] SEG NEUTROPHILS 70.1 % 11:55 AM [facility] LYMPHOCYTES 23.5 % 07/29/2021 11:55 AM [facility] MONOCYTES 5.2 % 07/29/2021 11:55 AM [facility] EOSINOPHILS 0.5 % 07/29/2021 11:55 AM [facility] BASOPHILS 0.5 % 07/29/2021 11:55 AM [facility] IMMATURE GRANS % 0.2 % 07/29/19 11:55 AM [facility] NRBC 0.0 % 07/29/2021 11:55 AM [facility] ABS. NEUTROPHILS 6.07 1.60 - 8.30 x10'3/uL 07/29/2021 11:55 AM [facility] ABS. LYMPHOCYTES 2.03 0.80 - 4.70 x10'3/uL 07/29/2021 11:55 AM BLOOD SPLATTER ANALYST [facility] ABS. MONOCYTES 0.45 0.00 - 1.50 x10'3/uL 07/29/2021 11:55 AM BLOOD SPLATTER ANALYST [facility] ABS. EOSINOPHILS 0.04 0.00 - 0.40 x10'3/uL 07/29/2021 11:55 AM BLOOD SPLATTER ANALYST [facility] ABS. BASOPHILS 0.04 0.00 - 0.20 x10'3/uL 07/29/2021 11:55 AM BLOOD SPLATTER ANALYST [facility] ABS. IMMATURE GRANULOCYTES 0.02 0.00 - 0.03 x10'3/uL 07/29/2021 11:55 AM BLOOD SPLATTER ANALYST [facility] ABS. NUCLEATED RBC'S 0.00 0.00 x10'3/uL 07/29/2021 11:55 AM BLOOD SPLATTER ANALYST [facility] 07/29/2021 11:4 7 AM BLOOD SPLATTER ANALYST us Renee Hernandez MD LABORATORY Final Result [facility] [address] [place], [place] [address] [phone] documented in this encounter Visit Diagnoses Diagnosis Abdominal pain, acute- Primary Abdominal pain, unspecified site documented in this encounter Care Teams Associate Professor Of Theatre Relationship Specialty Start Date End Date Renee Hernandez MD [address] [place] [address] PCP - General FAMILY PRACTICE 03/19/21 documented as of this encounter
--- OUTSIDE RECORDS SUMMARY | 2024-08-03 01:10 | XMS_ITS | Encounter Summary ---
Author Organization [facility] Address [facility] [place] [address] [place] [address] Care Team Providers Care Breeder Hen Service Technician Name Role Phone Renee Hernandez MD Primary Care Provider [phone] Reason for Visit * Reason Comments Dental Pain Encounter Details Date Type Department Care Team ([facility] st Contact Info) Description 03/30/2021 6:37 PM CDT - 03/30/2021 7:08 PM CDT Emergency [facility] [place] [address] Sami Aguilera MD [address] [place] [id number] Dental Pain Discharge Disposition: Home or Self Care (Routine Discharge) Social History Tobacco Use Types Packs/Day Years [...] have Coronavirus / COVID-19? No / Unsure 03/30/2021 6:39 PM CDT documented as of this encounter Last Filed Vital Signs Vital Sign Reading Time Taken Comments Blood Pressure 119/76 03/30/2021 6:40 PM CDT Pulse 110 03/30/2021 6:40 PM CDT Temperature 36.4 ??C (97.5 ??F) 03/30/2021 6:40 PM CD T Respiratory Rate 18 03/30/2021 6:40 PM CDT Oxygen Saturation 97% 03/30/2021 6:40 PM CDT Inhaled Oxygen Concentration - - Weight 48.7 kg (107 lb 6 oz) 03/30/2021 6:40 PM CDT Height 165.1 cm (5' 5 ) 03/30/2021 6:40 PM CDT Body Mass Index 17.87 03/30/2021 6:40 PM CDT documented in this encounter Discharge Instructions * Attachments The following attachments cannot be sent through Care Everywhere. * Dental Pain (Colombian) documented in this encounter Medications at Time of Discharge HYDROcodone-acetami nophen 5-325 MG tabletIndications:A cute Pain < 7 Day Supply Take 1-2 tablets by mouth every 6 (six) hours as needed. Indications: Acute Pain < 7 Day Supply 20 tablet 03/30/2021 levothyroxine 25 MCG tablet Take 40 mcg by mouth daily. 4 05/22/2019 NON FORMULARYIndication s:avalog insulin via continuous pump Indications: avalog insulin via continuous pump ondansetron 4 MG disintegrating tablet Take 1 tablet (4 mg total) by mouth every 8 (eight) hours as needed for Nausea. 20 tablet 03/01/2020 pantoprazole EC 40 MG tablet Take 40 mg by mouth daily. 3 05/22/2019 metoclopramide 10 MG tablet Take 1 tablet (10 mg total) by mouth 2 (two) times daily as needed. 15 tablet 03/19/2021 1 penicillin VK 500 MG tabletIndications:P ain, dental Take 1 tablet (500 mg total) by mouth 4 (four) times daily for 7 days. 28 tablet 03/30/2021 1 documented as of this encounter ED Notes * Millie Cintron, RN - 03/30/2021 6:41 PM CDT Arrives ambulatory with c/o mouth pain. Pt reports she got all of her top teeth pulled Sunday and now her face is swollen and she is having a lot of pain. Taking ibuprofen as prescribed per dentist. * Sami Aguilera MD - 03/30/2021 6:36 PM CDT eMERGENCY dEPARTMENT eNCOUnter CHIEF COMPLAINT Chief Complaint Patient presents with ??? Dental Pain HPI HPI Steph Camacho is a 30-year-old female who presents to the ER with a complaint of pain related tohaving her teeth pulled. Patient states she had all of her top teeth pulled on Sunday last week. She states she is not prescribed any antibiotics has been taking ibuprofen for pain but she had increased pain over the last 48 hours. She feels like her gums are more swollen and she believes there aresome remnants of teeth in the left upper area. She has not spoken to the dentist nor talk to her primary care physician but decided to come to the emergency department tonight. Denies fevers chills or other complaints. ALLERGIES Allergies Allergen Reactions ??? Peanut-Containing Drug Products Anaphylaxis ??? Latex Hives CURRENT MEDICATIONS Current Outpatient Medications Medication Sig ??? HYDROcodone-acetaminophen 5-325 MG tablet Take 1-2 tablets by mouth every 6 (six) hours as needed. Indications: Acute Pain < 7 Day Supply ??? levothyroxine 25 MCG tablet Take 40 mcg by mouth daily. ??? metoclopramide 10 MG tablet Take 1 tablet (10 mg total) by mouth 2 (two) times daily as needed. ??? NON FORMULARY Indications: avalog insulin via continuous pump ??? ondansetron 4 MG disintegrating tablet Take 1 tablet (4 mg total) by mouth every 8 (eight) hours as needed for Nausea. (Patient taking differently: Take 8 mg by mouth every 8 (eight) hours as needed for Nausea. ) ??? pantoprazole EC 40 MG tablet Take 40 mg by mouth daily. ??? penicillin VK 500 MG tablet Take 1 tablet (500 mg total) by mouth 4 (four) times daily for 7 days. PAST MEDICAL HISTORY Past Medical History: Diagnosis Date ??? Anxiety ??? Bronchitis ??? Diabetes mellitus (CMS/HCC) ??? Gastrointestinal ulcer ??? GERD (gastroesophageal reflux disease) ??? Hx of insertion of insulin pump has been removed ??? Hypercholesteremia ??? Hypotension ??? UTI (urinary tract infection) SURGICAL HISTORY Past Surgical History: Procedure Laterality Date ??? COLONOSCOPY SOCIAL HISTORY Social History Socioeconomic History ??? Marital status: Spouse name: Not on file ??? Number of children: Not on file ??? Years of education: Not on file ??? Highest education level: Not on file Occupational History ??? Not on file Tobacco Use ??? Smoking status: Current Every Day Smoker Types: Cigarettes ??? Smokeless tobacco: Never Used Substance and Sexual Activity ??? Alcohol use: No ??? Drug use: Yes Types: Marijuana ??? Sexual activity: Not on file Other Topics Concern ??? Not on file Social History Narrative ??? Not on file Social Determinants of Health Financial Resource Strain: ??? Difficulty of Paying Living Expenses: Food Insecurity: ??? Worried About Running Out of Food in the Last Year: ??? Ran Out of Food in the Last Year: Transportation Needs: ??? Lack of Transportation (Medical): ??? Lack of Transportation (Non-Medical): Physical Activity: ??? Days of Exercise per Week: ??? Minutes of Exercise per Session: Stress: ??? Feeling of Stress : Social Connections: ??? Frequency of Communication with Friends and Family: ??? Frequency of Social Gatherings with Friends and Family: ??? Attends Baptism Services: ??? Active Member of Clubs or Organizations: ??? Attends Club or Organization Meetings: ??? Marital Status: Intimate Partner Violence: ??? Fear of Current or Ex-Partner: ??? Emotionally Abused: ??? Physically Abused: ??? Sexually Abused: FAMILY HISTORY Family History Problem Relation Name Age of Onset ??? Diabetes Mother ??? Asthma Mother REVIEW OF SYSTEMS Review of Systems All other ROS negative unless noted above in HPI. PHYSICAL EXAM Physical Exam Filed Vitals: 03/30/21 1840 BP: 119/76 Pulse: 110 Resp: 18 Temp: 97.5 ??F (36.4 ??C) TempSrc: Oral SpO2: 97% Weight: 48.7 kg (107 lb 6 oz) Height: 5' 5 (1.651 m) The patient is a well developed and well nourished adult female in moderate painful distress, alertand oriented, tearful. HEENT: PERRL, EOMI Nose without drainage Throat without lesions, mucous membranes moist, generalized gingival inflammation of the maxillary region, edentulous, no active bleeding NECK: Supple without adenopathy or rigidity CHEST: Respirations are easy and unlabored EXT: No clubbing, cyanosis, edema NEURO: CN II-XII intact, no focal weakness EKG RADIOLOGY No orders to display LABS No results found for this visit on 03/30/21. ED MEDICATIONS Medications - No data to display PROCEDURES Procedures CONSULTS: ED COURSE & MEDICAL DECISION MAKING MDM Explained to the patient that I am not completely sure that she has an infection as this all might be within normal limits, but that being said because of her insulin-dependent diabetes we should probably cover her with an antibiotic. I will prescribe a small quantity of narcotic pain medication told her we cannot prescribe any more she really need to follow-up with her primary care physician Hamzah strongly recommend she contact her dentist tomorrow for follow-up. FINAL IMPRESSION SNOMED CT(R) 1. Pain, dental TOOTHACHE Renee Hernandez MD [address] [place] [address] In 2 days If not improving as well as recommended speaking to your dentist tomorrow. New Prescriptions HYDROCODONE-ACETAMINOPHEN 5-325 MG TABLET Take 1-2 tablets by mouth every 6 (six) hours as needed. Indications: Acute Pain < 7 Day Supply PENICILLIN VK 500 MG TABLET Take 1 tablet (500 mg total) by mouth 4 (four) times daily for 7 days. Sami Aguilera MD 03/30/211900 documented in this encounter Plan of Treatment Not on file documented as of this encounter Visit Diagnoses Diagnosis Pain, dental- Primary Unspecified disorder of the teeth and supporting structures documented in this encounter Care Teams Breeder Hen Service Technician Relationship Specialty Start Date End Date Renee Hernandez MD [address] [place] [id number] PCP - General FAMILY PRACTICE 03/19/21 documented as of this encounter
--- OUTSIDE RECORDS SUMMARY | 2024-08-03 01:10 | XMS_ITS | Encounter Summary ---
Author Organization [facility] Address [facility] [facility] [place] [address] [place] [address] Care Team Providers Care Body Design Checker Name Role Phone Renee Hernandez MD Primary Care Provider [phone] Encounter Details Date Type Department Care Team (Late st Contact Info) Description 05/22/2024 Orders Only [facility] [address] [place] [address] Rayna Irving NP [address] [employer] [place] [address] Social History Tobacco Use Types Packs/Day Years [...] documented as of this encounter Results * RESPIRATORY PCR PANEL (W COVID) (05/22/2024 2:11 PM CDT) ADENOVIRUS PCR (RESP) NOT DETECTED NOT DETECTED 05/23/2024 2:08 PM CDT [facility] CORONAVIRUS 229E PCR (RESP) NOT DETECTED NOT DETECTED 05/23/2024 2:08 PM CDT [facility] CORONAVIRUS HKU1 PCR (RESP) NOT DETECTED NOT DETECTED 05/23/2024 2:08 PM CDT [facility] CORONAVIRUS NL63 PCR (RESP) NOT DETECTED NOT DETECTED 05/23/2024 2:08 PM CDT [facility] CORONAVIRUS OC43 PCR (RESP) NOT DETECTED NOT DETECTED 05/23/2024 2:08 PM CDT [facility] METAPNEUMOVIRUS PCR (RESP) NOT DETECTED NOT DETECTED 05/23/2024 2:08 PM CDT [facility] RHINOVIRUS/ENTEROV IRUS PCR (RESP) NOT DETECTED NOT DETECTED 05/23/2024 2:08 PM CDT [facility] INFLUENZA A PCR (RESP) NOT DETECTED NOT DETECTED 05/23/2024 2:08 PM CDT [facility] INFLUENZA B PCR (RESP) NOT DETECTED NOT DETECTED 05/23/2024 2:08 PM CDT [facility] PARAINFLUENZA 1 PCR (RESP) NOT DETECTED NOT DETECTED 05/23/2024 2:08 PM CDT [facility] PARAINFLUENZA 2 PCR (RESP) NOT DETECTED NOT DETECTED 05/23/2024 2:08 PM CDT [facility] PARAINFLUENZA 3 PCR (RESP) NOT DETECTED NOT DETECTED 05/23/2024 2:08 PM CDT [facility] PARAINFLUENZA 4 PCR (RESP) NOT DETECTED NOT DETECTED 05/23/2024 2:08 PM CDT [facility] RSV PCR (RESP) NOT DETECTED NOT DETECTED 05/23/2024 2:08 PM CDT [facility] B PARAPERTUSIS PCR (RESP) NOT DETECTED NOT DETECTED 05/23/2024 2:08 PM CDT [facility] BORDETELLA PERTUSSIS PCR (RESP) NOT DETECTED NOT DETECTED 05/23/2024 2:08 PM CDT [facility] CHLAMYDOPHILA PNEUMONIAE PCR (RESP) NOT DETECTED NOT DETECTED 05/23/2024 2:08 PM CDT [facility] MYCOPLASMA PNEUMONIAE PCR (RESP) NOT DETECTED NOT DETECTED 05/23/2024 2:08 PM CDT [facility] CORONAVIRUS SARS COV 2 PCR (RESP) NOT DETECTED NOT DETECTED 05/23/2024 2:08 PM CDT [facility] NASOPHARYNGEAL SWAB / Unknown 05/22/2024 2:11 PM CDT Rayna Irving SENIOR ABAP DEVELOPER MICROBIOLOGY - GENERAL ORDERABLE S Final Result [facility] [address] [place] [address], [id number] documented in this encounter Visit Diagnoses Diagnosis Acute upper respiratory infection- Primary Acute upper respiratory infections of unspecified site documented in this encounter Care Teams Body Design Checker Relationship Specialty Start Date End Date Renee Hernandez MD [address] [place] [address] PCP - General FAMILY PRACTICE 03/19/21 documented as of this encounter
--- OUTSIDE RECORDS SUMMARY | 2024-08-03 01:10 | XMS_ITS | Encounter Summary ---
Author Organization [facility] Address [facility] [facility] [place] [address] [place] [address] Care Team Providers Care Production Artist Name Role Phone Renee Hernandez MD Primary Care Provider [phone] Encounter Details Date Type Department Care Team (Late st Contact Info) Description 05/22/2024 Orders Only [facility] [address] [place] [address] Rayna Irving NP [address] [place] [address] Social History Tobacco Use Types [...] documented as of this encounter Results * CBC W/DIFF AUTOMATED (05/22/2024 2:11 PM CDT) WBC 5.55 4.00 - 10.80 x10'3/uL 05/22/2024 2:39 PM CDT [facility] RBC 4.38 4.10 - 5.40 x10'6/uL 05/22/2024 2:39 PM CDT [facility] HGB 13.4 12.0 - 16.0 G/DL 05/22/2024 2:39 PM CDT [facility] HCT 39.2 36.0 - 47.0 % 05/22/2024 2:39 PM CDT [facility] MCV 89.5 78.0 - 100.0 FL 05/22/2024 2:39 PM CDT [facility] MCH 30.6 27.0 - 31.0 PG 05/22/2024 2:39 PM CDT [facility] MCHC 34.2 33.0 - 36.0 G/DL 05/22/2024 2:39 PM CDT [facility] RDW 11.9 11.5 - 14.5 % 05/22/2024 2:39 PM CDT [facility] PLT 255 150 - 350 x10'3/uL 05/22/2024 2:39 PM CDT [facility] MPV 9.4 7.4 - 10.4 FL 05/22/2024 2:39 PM CDT [facility] CBC COMMENT NORMAL REFERENCE RANGE NOT ESTABLISHED FOR THE PROPORTIONAL LEUKOCYTE DIFFERENTIAL. 05/22/2024 2:39 PM CDT [facility] NEUTROPHILS % 47.8 % 05/22/2024 2:39 PM CDT [facility] LYMPHOCYTES % 42.0 % 05/22/2024 2:39 PM CDT [facility] MONOCYTES % 7.9 % 05/22/2024 2:39 PM CDT [facility] EOSINOPHILS % 1.4 % 05/22/2024 2:39 PM CDT [facility] BASOPHILS % 0.9 % 05/22/2024 2:39 PM CDT [facility] IMMATURE GRANS % 0.0 % 05/22/20 2:39 PM CDT [facility] NRBC % 0.0 % 05/22/2024 2:39 PM CDT [facility] ABS. NEUTROPHILS 2.65 1.60 - 8.30 x10'3/uL 05/22/2024 2:39 PM CDT [facility] ABS. LYMPHOCYTES 2.33 0.80 - 4.70 x10'3/uL 05/22/2024 2:39 PM CDT [facility] ABS. MONOCYTES 0.44 0.00 - 1.50 x10'3/uL 05/22/2024 2:39 PM CDT [facility] ABS. EOSINOPHILS 0.08 0.00 - 0.40 x10'3/uL 05/22/2024 2:39 PM CDT [facility] ABS. BASOPHILS 0.05 0.00 - 0.20 x10'3/uL 05/22/2024 2:39 PM CDT [facility] ABS. IMMATURE GRANULOCYTES 0.00 0.00 - 0.03 x10'3/uL 05/22/2024 2:39 PM CDT [facility] ABS. NUCLEATED RBC'S 0.00 0.00 - 0.01 x10'3/uL 05/22/2024 2:39 PM CDT [facility] 05/22/2024 2:11 PM CDT Rayna Irving NP LABORATORY Final Result [facility] [place] [address], * (ABNORMAL) COMPREHENSIVE METABOLIC PANEL (05/22/2024 2:11 PM CDT) SODIUM S/P/B 136 136 - 145 MMOL/L 05/22/2024 3:00 PM CDT [facility] POTASSIUM S/P/B 5.2(H) 3.5 - 5.1 MMOL/L 05/22/2024 3:00 PM CDT [facility] CHLORIDE S/P/B 98 98 - 107 MMOL/L 05/22/2024 3:00 PM CDT [facility] CO2 30.3 21.0 - 32.0 MMOL/L 05/22/2024 3:00 PM CDT [facility] GLUCOSE 174(H) 70 - 99 MG/DL 05/22/2024 3:00 PM [facility] Comment: FASTING GLUCOSE 100 TO 125 MG/DL IS CONSISTENT WITH IMPAIRED FASTING GLUCOSE. FASTING GLUCOSE >125 MG/DL IS CONSISTENT WITH DIABETES. RANDOM GLUCOSE >200 MG/DL WITH HYPERGLYCEMIC SYMPTOMS IS CONSISTENT WITH DIABETES. PER ADA GUIDELINES BUN 21 6 - 24 MG/DL 05/22/2024 3:00 PM T [facility] CREATININE S/P/B 0.98 0.55 - 1.02 MG/DL 05/22/2024 3:00 PM [facility] CALCIUM S/P/B 9.5 8.4 - 10.5 MG/DL 05/22/2024 3:00 PM [facility] BILIRUBIN TOTAL S/P/B 0.5 0.2 - 1.0 MG/DL 05/22/2024 3:00 PM T [facility] Comment: THIS ASSAY IS NOT RECOMMENDED FOR PATIENTS UNDERGOING TREATMENT WITH ELTROMBOPAG DUE TO THE POTENTIAL FOR FALSELY ELEVATED RESULTS. ALKALINE PHOSPHATASE S/P/B 120(H) 37 - 98 U/L 05/22/2024 3:00 PM T [facility] AST 26 15 - 37 U/L 05/22/2024 3:00 PM [facility] ALT 44 14 - 59 U/L 05/22/2024 3:00 PM [facility] TOTAL PROTEIN S/P/B 8.2 6.4 - 8.2 G/DL 05/22/2024 3:00 PM [facility] ALBUMIN S/P/B 4.0 3.4 - 5.0 G/DL 05/22/2024 3:00 PM [facility] ANION GAP 7.7 5.0 - 15.0 MMOL/L 05/22/2024 3:00 PM [facility] OSMOLALITY (CALC) 289 MOSM/KG 024 3:00 PM T [facility] Comment:REFERENCE RANGE NOT ESTABLISHED GFR ESTIMATE 77(L) >89 ML/MIN/1. 73 M2 05/22/2024 3:00 PM CDT [facility] GFR NOTES GFR REFERENCE S: 05/22/2024 3:00 PM CDT [facility] Comment: THE ESTIMATED GFR IS CALCULATED USING THE 2020 CKD-EPI EQUATION. THE FOLLOWING CATEGORIES FOR GRADING RENAL FUNCTION ARE RECOMMENDED BY THE INTERNATIONAL SOCIETY OF NEPHROLOGY (KDIGO 2012 CLINICAL PRACTICE GUIDELINE). G1,NORMAL OR HIGH: >89 ml/min/1.73 m2 G2,MILDLY DECREASED: 60-89 ml/min/1.73 m2 G3A,MILDLY TO MODERATELY DECREASED: 45-59 ml/min/1.73 m2 G3B,MODERATELY TO SEVERELY DECREASED: 30-44 ml/min/1.73 m2 G4,SEVERELY DECREASED: 15-29 ml/min/1.73 m2 G5,KIDNEY FAILURE: <15 ml/min/1.73 m2 05/22/2024 2:11 PM CDT Rayna Irving NP LABORATORY Final Result [facility] [address] [place] [address], * THYROXINE, FREE (FT4) (05/22/2024 2:11 PM CDT) FREE T4 0.93 0.76 - 1.46 NG/DL 05/22/2024 3:00 PM CDT [facility] 05/22/2024 2:11 PM CDT Rayna Irving NP LABORATORY Final Result [facility] [address] [place] [address], * (ABNORMAL) THYROID STIM HORMONE TSH (05/22/2024 2:11 PM CDT) TSH 6.564(H) 0.358 - 3.740 uIU/ML 05/22/2024 3:00 PM CDT [facility] Comment: ASSAY PERFORMED BY CHEMILUMINESCENT IMMUNOASSAY METHODOLOGY USING SIEMENS DIMENSION REAGENT. PATIENT RESULTS DETERMINED BY ASSAYS FROM DIFFERENT MANUFACTURERS AND/OR BY DIFFERENT METHODS MAY NOT BE COMPARABLE. 05/22/2024 2:11 PM CDT Rayna Irving NP LABORATORY Final Result [facility] [address] [place] [address], documented in this encounter Visit Diagnoses Diagnosis Hypothyroidism- Primary Unspecified hypothyroidism Hematemesis Acute upper respiratory infection Acute upper respiratory infections of unspecified site documented in this encounter Care Teams Production Artist Relationship Specialty Start Date End Date Renee Hernandez MD [address] [place] [address] PCP - General FAMILY PRACTICE 03/19/21 documented as of this encounter
--- OUTSIDE RECORDS SUMMARY | 2024-08-03 01:10 | XMS_ITS | Encounter Summary ---
Author Organization [facility] Address [facility] [place] [address] [place] [address] Care Team Providers Care Treatment Supervisor Name Role Phone Renee Hernandez MD Primary Care Provider [phone] Encounter Details Date Type Department Care Team (Latest Contact Info) Description 07/29/2021 Travel Social History Tobacco Use Types Packs/Day [...] COVID-19? No / Unsure 07/29/2021 11:22 AM CLEAN ROOM ASSEMBLER documented as of this encounter Plan of Treatment Not on file documented as of this encounter Visit Diagnoses Not on filedocumented in this encounter Care Teams Treatment Supervisor Relationship Specialty [place] [address] [place] [address] [place] [address] PCP - General FAMILY PRACTICE 03/19/21 documented as of this encounter
--- OUTSIDE RECORDS SUMMARY | 2024-08-03 01:10 | XMS_ITS | Encounter Summary ---
Author Organization [facility] Address [facility] [place] [address] [place] [address] Care Team Providers Care Ict Security Specialist Name Role Phone Isaias Grier MD Primary Care Provider [phone]- [phone] Reason for Referral * Imaging (Emergency) - Closed Specialty Diagnoses / Procedures Referred By Alexis salazar Referred To Contact RADIOLOGY Procedures CT ABD+PEL W IV CON ONLY Sami Aguilera MD Phone: tel: fax: Referral ID Status Reason Start Date Expiration Date Visits Re quested Visits Authorized [id number] Closed 12/04/2019 01/03/2021 1 1 Reason for Visit * Reason Comments Abdominal Pain Encounter Details Date Type Department Care Team (Late st Contact Info) Description 12/04/2019 3:46 PM CDT - 12/04/2019 6:05 PM CDT Emergency [facility] [address] [place] [address] [place] [address] Sami Aguilera MD [address] [place] [address] [id number] Abdominal Pain Discharge Disposition: Home or Self Care [...] have Coronavirus / COVID-19? No / Unsure 12/04/2019 3:59 PM CDT documented as of this encounter Last Filed Vital Signs Vital Sign Reading Time Taken Comments Blood Pressure 118/83 12/04/2019 6:00 PM CDT Pulse 108 12/04/2019 5:45 PM CDT Temperature 37.2 ??C (98.9 ??F) 12/04/2019 3:48 PM CD T Respiratory Rate 18 12/04/2019 5:45 PM CDT Oxygen Saturation 100% 12/04/2019 6:00 PM CDT Inhaled Oxygen Concentration - - Weight 54 kg (119 lb) 12/04/2019 3:48 PM CDT Height 165.1 cm (5' 5 ) 12/04/2019 3:48 PM CDT Body Mass Index 19.8 12/04/2019 3:48 PM CDT documented in this encounter Discharge Instructions * Attachments The following attachments cannot be sent through Care Everywhere. * Severe Abdominal Pain Discharge Instructions, Adult (Mongolian) * Gastritis Discharge Instructions (Mongolian) documented in this encounter Medications at Time of Discharge levothyroxine 25 MCG tablet Take 40 mcg by mouth daily. 4 05/22/2019 NON FORMULARYIndica tions:avalog insulin via continuous pump Indications: avalog insulin via continuous pump pantoprazole EC 40 MG tablet Take 40 mg by mouth daily. 3 05/22/2019 albuterol sulfate HFA (PROAIR HFA) 108 (90 Base) MCG/ACT inhaler Inhale 2 puffs into the lungs every 6 (six) hours as needed for Wheezing. 0 B-D UF III MINI PEN NEEDLES 31G X 5 MM Misc USE FOR INJECTIONS FOUR TIMES A DAY 5 01/02/2018 0 Blood Glucose Monitoring Suppl (ONE TOUCH ULTRA MINI) w/Device Kit see administration instructions. 0 04/24/2017 0 ciprofloxacin 500 MG tablet Take 500 mg by mouth 2 (two) times daily. 0 docusate sodium 100 MG capsule Take 100 mg by mouth 2 (two) times daily. 0 HYDROcodone-nimesh taminophen 5-325 MG tablet Take 1 tablet by mouth every 6 (six) hours as needed for Pain. 0 HYDROcodone-nimesh taminophen 5-325 MG tabletIndicatio ns:Acute Pain < 3 Day Supply Take 1-2 tablets by mouth every 6 (six) hours as needed. Indications: Acute Pain < 3 Day Supply 12 tablet 12/04/2019 0 KETOCARE Strip USE FOR TESTING DIRECTED 0 07/20/2017 0 metroNIDAZOLE 500 MG tablet Take 500 mg by mouth 2 (two) times a day. 0 ONE TOUCH ULTRA TEST STRIPS test strip CHECK BLOOD SUGARS FOUR TIMES A DAY NEEDED 1 11/09/2017 0 ONETOUCH DELICA LANCETS 33G Misc TEST BLOOD BLOOD SUGAR FOUR TIMES A DAY AND NEEDED 1 04/24/2017 0 documented as of this encounter ED Notes * Evi Martinez RN - 12/04/2019 4:50 PM CDT Pt states blood sugar monitor is reading 79 and needs some sugar intake. Dr aguilera consulted; ok for pt to drink oj, 4 oz provided. Pt's mom also calls to check on pt; pt states 'can tell her anything' and report given * Evi Martinez RN - 12/04/2019 4:25 PM CDT Blood drawn by lab * Evi Martinez RN - 12/04/2019 3:45 PM CDT Pt arrives via ems from friend's home where friend called ems when pt was found on floor of bathroom while vomiting. Pt states on 11/29 noted black on tp after bm and went to [facility] where was admitted, discharged yest with rx cipro and flagyl and referral to see gi specialist in a few weeks. Pt states has been having abd pain and intermittent n/v since. Took last norco 5/325 at 1100. Came home from [facility] with worsening of pain, went to bathroom to vomit and doesn't remember if passed out or fell. * Sami Aguilera MD - 12/04/2019 3:43 PM CDT eMERGENCY dEPARTMENT eNCOUnter CHIEF COMPLAINT Chief Complaint Patient presents with ??? Abdominal Pain HPI HPI Steph Camacho is a 29-year-old female who presents to the ER with a complaint of recurrent abdominal pain with vomiting and possibly a syncopal episode. Patient states that 48 hours ago or so she developed abdominal pain and some blood in her stool. She was seen at [facility] and apparently kept overnight and was advised to follow-up with a GI specialist. She states that she made an appointment with her specialist in [place] but will be for several weeks. She is been taking Rock for the pain is not really controlling it well. She took her last dose this morning. Afternoon the pain became worse and she was vomiting and may have had a brief syncopal episode. EMS was called to transport her to the hospital. Denies possibility being as she is had tubal ligation in the past. She also had her gallbladder removed and believes that she will be getting a hysterectomy soon due to some chronic gynecological issues as well. Is never had GI bleeding before. No other complaints at this time including fevers chills or other illness. ALLERGIES Allergies Allergen Reactions ??? Peanut-Containing Drug Products Anaphylaxis ??? Latex Hives CURRENT MEDICATIONS Current Outpatient Medications Medication Sig ??? albuterol sulfate HFA (PROAIR HFA) 108 (90 Base) MCG/ACT inhaler Inhale 2 puffs into the lungs every 6 (six) hours as needed for Wheezing. ??? ciprofloxacin 500 MG tablet Take 500 mg by mouth 2 (two) times daily. ??? docusate sodium 100 MG capsule Take 100 mg by mouth 2 (two) times daily. ??? HYDROcodone-acetaminophen 5-325 MG tablet Take 1 tablet by mouth every 6 (six) hours as needed for Pain. ??? HYDROcodone-acetaminophen 5-325 MG tablet Take 1-2 tablets by mouth every 6 (six) hours as needed. Indications: Acute Pain < 3 Day Supply ??? levothyroxine 25 MCG tablet Take 25 mcg by mouth daily. ??? metroNIDAZOLE 500 MG tablet Take 500 mg by mouth 2 (two) times a day. ??? NON FORMULARY Indications: avalog insulin via continuous pump ??? pantoprazole EC 40 MG tablet Take 40 mg by mouth daily. ??? B-D UF III MINI PEN NEEDLES 31G X 5 MM Misc USE FOR INJECTIONS FOUR TIMES A DAY ??? Blood Glucose Monitoring Suppl (ONE TOUCH ULTRA MINI) w/Device Kit see administration instructions. ??? KETOCARE Strip USE FOR TESTING DIRECTED ??? ONE TOUCH ULTRA TEST STRIPS test strip CHECK BLOOD SUGARS FOUR TIMES A DAY NEEDED ??? ONETOUCH DELICA LANCETS 33G Misc TEST BLOOD BLOOD SUGAR FOUR TIMES A DAY AND NEEDED PAST MEDICAL HISTORY Past Medical History: Diagnosis [...] file Occupational History ??? Not on file Social Needs ??? Financial resource strain: Not on file ??? Food insecurity: Worry: Not on file Inability: Not on file ??? Transportation needs: Medical: Not on file Non-medical: Not on file Tobacco Use ??? Smoking status: Current Every Day Smoker Types: Cigarettes ??? Smokeless tobacco: Never Used Substance and Sexual Activity ??? Alcohol use: No Frequency: Never ??? Drug use: Yes Types: Marijuana ??? Sexual activity: Not on file Lifestyle ??? Physical activity: Days per week: Not on file Minutes per session: Not on file ??? Stress: Not on file Relationships ??? Social connections: Talks on phone: Not on file Gets together: Not on file Attends protestant service: Not on file Active member of club or organization: Not on file Attends meetings of clubs or organizations: Not on file Relationship status: Not on file ??? Intimate partner violence: Fear of current or ex partner: Not on file Emotionally abused: Not on file Physically abused: Not on file Forced sexual activity: Not on file Other Topics Concern ??? Not on file Social History Narrative ??? Not on file FAMILY HISTORY Family History Problem Relation Name Age of Onset ??? Diabetes Mother ??? Asthma Mother REVIEW OF SYSTEMS Review of Systems All other ROS negative unless noted above in HPI. PHYSICAL EXAM Physical Exam Filed Vitals: 12/04/19 1630 12/04/19 1700 12/04/19 1730 12/04/19 1745 BP: 103/70 99/63 116/73 Pulse: 108 Resp: 16 18 Temp: TempSrc: SpO2: 100% 100% 100% 100% Weight: Height: The patient is a well developed and well nourished adult female in no painful distress, alert and oriented. HEENT: PERRL, EOMI Throat without lesions, mucous membranes moist NECK: Supple without adenopathy or rigidity CHEST: Lungs clear and equal to auscultation Heart regular rate and rhythm without murmur ABD: Soft, NABS, mild diffuse tenderness without rebound guarding or mass RECTAL: Patient brown stool sent for guaiac EXT: No clubbing, cyanosis, edema NEURO: CN II-XII intact, no focal weakness SKIN: No rash or significant lesions EKG RADIOLOGY CT ABD+PEL W IV CON ONLY Final Result by User, [id number] (12/03 1354) Examination: CT ABD+PEL W CON Clinical history: Abdominal pain, bloody stool Comparison: 04/10/2018, 04/10/2018, 09/15/2017, 06/15/2014 DATE/TIME: 12/04/2019 5:20 PM Technique: Multiplanar images of the abdomen and pelvis were obtained following the uneventful intravenous administration of 95 mL Isovue 370. A dose lowering technique was used for this procedure, which may include, but is not limited to, dose reduction technique, automated exposure control, the use of iterative reconstruction, and ALARA (As Low As Reasonably Achievable) / Image Gently techniques. Findings: Stable 4 mm left lower lobe nodule, benign. Minimal centrally located patchy ground glass opacity in the left lower lobe, entirely nonspecific but could be infectious/inflammatory. Viral infection not excluded, correlate clinically. Included right lung base is clear. Liver is normal in size and contour. Oval enhancing 2 cm lesion in the right hepatic lobe, stable from 2018. This has been present since at least 2013 but may be slightly enlarged since that time. Somewhat discontinuous nodular enhancement on the ninth 04/10/2018 exam suggestive of hemangioma. Could consider nonemergent contrast-enhanced liver MRI for more detailed characterization. Liver otherwise negative. Stable faint low density 1 cm lesion in the anterior aspect of the spleen, nonspecific. This could also be evaluated further with MRI if desired. Spleen otherwise negative. Pancreas negative. Cholecystomy. No bile duct dilatation. Adrenal glands are negative. Kidneys are normal size and enhance symmetrically. There is mild right hydronephrosis and hydroureter. No left hydronephrosis. No renal or ureteral calculi identified. No renal mass. There is marked distention of the urinary bladder which extends the level of the umbilicus. Abdominal aorta normal caliber. Uterus and ovaries are within normal limits with a left ovarian corpus luteum. Uterus is retroflexed. No free intraperitoneal air or fluid. No bowel obstruction or bowel wall thickening. Moderate to large amount stool throughout colon. Appendix within normal limits. Tiny umbilical hernia containing only fat. Question mild wall thickening of the gastric antrum/pylorus, mild gastritis not excluded. No acute osseous abnormality or destructive bone lesion. IMPRESSION: 1. Question mild gastritis. Otherwise no acute gastrointestinal abnormality identified. 2. Markedly distended urinary bladder. Mild right hydronephrosis without urinary tract stone disease. 3. Minimal patchy left lower lobe ground glass opacity, nonspecific but possibly infectious/inflammatory. Recommend clinical correlation for fever/respiratory symptoms. 4. Small stable nonspecific lesions in the liver and spleen, as above. Interpreted By: Sami Castillo MD, 12/04/2019 5:25 PM LABS Results for orders placed or performed during the hospital encounter of 12/04/19 CBC W/DIFF AUTOMATED Result Value Ref Range WBC 9.1 4.5 - 10.8 x10'3/uL RBC 3.70 (L) 4.10 - 5.40 x10'6/uL HGB 11.3 (L) 12.0 - 16.0 G/DL HCT 32.8 (L) 36.0 - 47.0 % MCV 88.6 78.0 - 100.0 FL MCH 30.5 27.0 - 31.0 PG MCHC 34.5 33.0 - 36.0 G/DL RDW 12.0 11.5 - 14.5 % PLT 218 150 - 350 x10'3/uL MPV 9.6 7.4 - 10.4 FL Differential Comment NORMAL REFERENCE RANGE NOT ESTABLISHED FOR THE PROPORTIONAL LEUKOCYTE DIFFERENTIAL. SEG NEUTROPHILS 69.4 % LYMPHOCYTES 22.4 % MONOCYTES 6.6 % EOSINOPHILS 1.0 % BASOPHILS 0.3 % IMMATURE GRANS 0.3 % NRBC 0.0 % ABS. NEUTROPHILS 6.29 1.60 - 8.30 x10'3/uL ABS. LYMPHOCYTES 2.03 0.80 - 4.70 x10'3/uL ABS. MONOCYTES 0.60 0.00 - 1.50 x10'3/uL ABS. EOSINOPHILS 0.09 0.00 - 0.40 x10'3/uL ABS. BASOPHILS 0.03 0.00 - 0.20 x10'3/uL ABS. IMMATURE GRANULOCYTES 0.03 0.00 - 0.03 x10'3/uL ABS. NUCLEATED RBC'S 0.00 0.00 x10'3/uL COMPREHENSIVE METABOLIC PANEL Result Value Ref Range SODIUM 143 136 - 145 MMOL/L POTASSIUM 3.6 3.5 - 5.1 MMOL/L CHLORIDE S/P/B 108 (H) 98 - 107 MMOL/L CO2 28.7 21.0 - 32.0 MMOL/L GLUCOSE 82 70 - 99 MG/DL BUN 8 6 - 24 MG/DL CREATININE S/P/B 0.74 0.55 - 1.02 MG/DL CALCIUM 8.4 8.4 - 10.5 MG/DL BILIRUBIN TOTAL S/P/B 0.5 0.2 - 1.0 MG/DL ALK PHOS 48 37 - 98 U/L AST 13 (L) 15 - 37 U/L ALT 16 14 - 59 U/L TOTAL PROTEIN 6.4 6.4 - 8.2 G/DL ALBUMIN S/P/B 3.3 (L) 3.4 - 5.0 G/DL ANION GAP 6.3 5.0 - 15.0 MMOL/L OSMOLALITY (CALC) 293 MOSM/KG eGFR Non-Afr. Amer. >90 >89 ML/MIN/1.73 M2 eGFR Afr. Amer. >90 >89 ML/MIN/1.73 M2 GFR NOTES GFR REFERENCES: LIPASE Result Value Ref Range LIPASE 56 (L) 73 - 393 UNITS/L BETA-HYDROXYBUTYRATE Result Value Ref Range BETA-HYDROXYBUTYRATE 0.5 (H) 0.0 - 0.3 MMOL/L Blood gas, venous Result Value Ref Range O2 SAT VENOUS 47 40 - 70 % PH VENOUS 7.37 7.35 - 7.45 PC02 VENOUS 44.1 41.0 - 51.0 MMHG PO2 VENOUS 34.0 20.0 - 40.0 MM HG VENOUS BASE EXCESS 0.0 MMOL/L BICARB-VENOUS 24.9 22.0 - 29.0 MMOL/L TCO2 26.3 25.0 - 29.0 MMOL/L LITER FLOW ROOM AIR OCCULT BLOOD, FECES Result Value Ref Range OCCULT BLOOD, FECAL NEGATIVE NEGATIVE ED MEDICATIONS Medications sodium chloride 0.9% bolus infusion SOLN 1,000 mL (0 mLs Intravenous Infusion Stop Time 12/04/19 1745) ondansetron (ZOFRAN) injection 4 mg (4 mg Intravenous Given 12/04/19 1621) morphine injection 4 mg (4 mg Intravenous Given 12/04/19 1622) iopamidol (ISOVUE-370) 76 % injection 95 mL (95 mLs Intravenous Given 12/04/19 1710) PROCEDURES Procedures CONSULTS: ED COURSE & MEDICAL DECISION MAKING MDM Patient presents with recurrent abdominal pain and history of possibly gastrointestinal bleeding. Her work-up in the emergency department is fairly unremarkable in terms of her labs were things in her CT scan shows possible gastritis which certainly could be causing her symptoms. However she is already on a proton pump inhibitor. She is also concerned because her blood sugars been on the low sideemergency department but she also has not been eating well today and also vomited so she is turned off her insulin pump. We are giving her some food. She has an appointment scheduled with her GI specialist I have encouraged her to call to see if they can move that up. Meantime she will continue her proton pump another and I will prescribe a very small quantity of pain medication and attempt to bridge her over but I did explain to her we cannot prescribe further narcotics for the same condition. FINAL IMPRESSION SNOMED CT(R) 1. Abdominal pain ABDOMINAL PAIN 2. Gastritis GASTRITIS Isaias Grier MD [address] [place] [phone] Call As well as call your GI specialist tomorrow to see if they can move up your appointment New Prescriptions HYDROCODONE-ACETAMINOPHEN 5-325 MG TABLET Take 1-2 tablets by mouth every 6 (six) hours as needed. Indications: Acute Pain < 3 Day Supply Sami Aguilera MD 12/04/19 8836 documented in this encounter Plan of Treatment Not on file documented as of this encounter Procedures Procedure Name Priority Date/Time Associated Diagnosis Comments CT ABD+PEL W CON STAT 12/04/2019 5:20 PM CDT BETA-HYDROXYBUTYRATE STAT 12/04/2019 4:30 PM CDT BLOOD GAS, VENOUS STAT 12/04/2019 4:3 0 PM CDT COMPREHENSIVE METABOLIC PANEL STAT 12/04/2019 4:30 PM CDT CBC W/DIFF AUTOMATED STAT 12/04/2019 4:30 PM CDT LIPASE STAT 12/04/2019 4:30 PM CDT OCCULT BLOOD, FECES STAT 12/04/2019 4 :05 PM CDT documented in this encounter Results * CT ABD+PEL W IV CON ONLY (12/04/2019 5:20 PM CDT) Anatomical Region Laterality Modality Abdomen Computed Tomogra phy 12/04/2019 5:25 PM CDT Impressions 12/04/2019 5:37 PM CDT IMPRESSION: 1. ??Question mild gastritis. ??Otherwise no acute gastrointestinal abnormality identified. 2. ??Markedly distended urinary bladder. ??Mild right hydronephrosis without urinary tract stone disease. 3. ??Minimal patchy left lower lobe ground glass opacity, nonspecific but possibly infectious/inflammatory. ??Recommend clinical correlation for fever/respiratory symptoms. 4. ??Small stable nonspecific lesions in the liver and spleen, as above. Interpreted By: Sami Castillo MD, 12/04/2019 5:25 PM Narrative 12/04/2019 5:37 PM CDT Examination: CT ABD+PEL W CON Clinical history: Abdominal pain, bloody stool Comparison: 04/10/2018, 04/10/2018, 09/15/2017, 06/15/2014 DATE/TIME: 12/04/2019 5:20 PM Technique: Multiplanar images of the abdomen and pelvis were obtained following the uneventful intravenous administration of 95 mL Isovue 370. A dose lowering technique was used for this procedure, which may include, but is not limited to, dose reduction technique, automated exposure control, the use of iterative reconstruction, and ALARA (As Low As Reasonably Achievable) / Image Gently techniques. Findings: Stable 4 mm left lower lobe nodule, benign. ??Minimal centrally located patchy ground glass opacity in the left lower lobe, entirely nonspecific but could be infectious/inflammatory. ??Viral infection not excluded, correlate clinically. ??Included right lung base is clear. Liver is normal in size and contour. ??Oval enhancing 2 cm lesion in the right hepatic lobe, stable from 2017. ??This has been present since at least 2013 but may be slightly enlarged since that time. ??Somewhat discontinuous nodular enhancement on the ninth 04/10/2018 exam suggestive of hemangioma. ??Could consider nonemergent contrast-enhanced liver MRI for more detailed characterization. ??Liver otherwise negative. ??Stable faint low density 1 cm lesion in the anterior aspect of the spleen, nonspecific. ??This could also be evaluated further with MRI if desired. ??Spleen otherwise negative. ??Pancreas negative. ??Cholecystomy. ??No bile duct dilatation. Adrenal glands are negative. ??Kidneys are normal size and enhance symmetrically. ??There is mild right hydronephrosis and hydroureter. ??No left hydronephrosis. ??No renal or ureteral calculi identified. ??No renal mass. ??There is marked distention of the urinary bladder which extends the level of the umbilicus. Abdominal aorta normal caliber. ??Uterus and ovaries are within normal limits with a left ovarian corpus luteum. ??Uterus is retroflexed. No free intraperitoneal air or fluid. ??No bowel obstruction or bowel wall thickening. ??Moderate to large amount stool throughout colon. ??Appendix within normal limits. ??Tiny umbilical hernia containing only fat. ??Question mild wall thickening of the gastric antrum/pylorus, mild gastritis not excluded. ??No acute osseous abnormality or destructive bone lesion. Procedure Note Sami Castillo MD - 12/04/2019 Examination: CT ABD+PEL W CON Clinical history: Abdominal pain, bloody stool Comparison: 04/10/2018, 04/10/2018, 09/15/2017, 06/15/2014 DATE/TIME: 12/04/2019 5:20 PM Technique: Multiplanar images of the abdomen and pelvis were obtainedfollowing the uneventful intravenous administration of 95 mL Isovue 370. Adose lowering technique was used for this procedure, which may include,but is not limited to, dose reduction technique, automated exposurecontrol, the use of iterative reconstruction, and ALARA (As Low AsReasonably Achievable) / Image Gently techniques. Findings: Stable 4 mm left lower lobe nodule, benign. Minimal centrallylocated patchy ground glass opacity in the left lower lobe, entirelynonspecific but could be infectious/inflammatory. Viral infection notexcluded, correlate clinically. Included right lung base is clear. Liver is normal in size and contour. Oval enhancing 2 cm lesion in theright hepatic lobe, stable from 2018. This has been present since atleast 2013 but may be slightly enlarged since that time. Somewhatdiscontinuous nodular enhancement on the ninth 04/10/2018 exam suggestiveof hemangioma. Could consider nonemergent contrast- enhanced liver MRI formore detailed characterization. Liver otherwise negative. Stable faintlow density 1 cm lesion in the anterior aspect of the spleen, nonspecific.This could also be evaluated further with MRI if desired. Spleenotherwise negative. Pancreas negative. Cholecystomy. No bile ductdilatation. Adrenal glands are negative. Kidneys are normal size and enhancesymmetrically. There is mild right hydronephrosis and hydroureter. Noleft hydronephrosis. No renal or ureteral calculi identified. No renalmass. There is marked distention of the urinary bladder which extends thelevel of the umbilicus. Abdominal aorta normal caliber. Uterus and ovaries are within normallimits with a left ovarian corpus luteum. Uterus is retroflexed. No free intraperitoneal air or fluid. No bowel obstruction or bowel wallthickening. Moderate to large amount stool throughout colon. Appendixwithin normal limits. Tiny umbilical hernia containing only fat.Question mild wall thickening of the gastric antrum/pylorus, mildgastritis not excluded. No acute osseous abnormality or destructive bonelesion. IMPRESSION: 1. Question mild gastritis. Otherwise no acute gastrointestinalabnormality identified. 2. Markedly distended urinary bladder. Mild right hydronephrosis withouturinary tract stone disease. 3. Minimal patchy left lower lobe ground glass opacity, nonspecific butpossibly infectious/inflammatory. Recommend clinical correlation forfever/respiratory symptoms. 4. Small stable nonspecific lesions in the liver and spleen, as above. Interpreted By: Sami Castillo MD, 12/04/2019 5:25 PM Sami Aguilera MD CT Final Result * Blood gas, venous (12/04/2019 4:30 PM CDT) O2 SAT VENOUS 47 40 - 70 % 12/04/2019 4:42 PM CDT [facility] PH VENOUS 7.37 7.35 - 7.45 12/04/2019 4:42 PM CDT [facility] PCO2 VENOUS 44.1 41.0 - 51.0 MMHG 12/04/2019 4:42 PM CDT [facility] PO2 VENOUS 34.0 20.0 - 40.0 MM HG 12/04/2019 4:42 PM CDT [facility] VENOUS BASE EXCESS 0.0 MMOL/L 12/04/2019 4:42 PM CDT [facility] BICARB VENOUS 24.9 22.0 - 29.0 MMOL/L 12/04/2019 4:42 PM CDT [facility] TCO2 26.3 25.0 - 29.0 MMOL/L 12/04/2019 4:42 PM CDT [facility] LITER FLOW ROOM AIR 12/04/2019 4:33 PM CDT [facility] Blood specimen (specimen) 12/04/2019 4:30 PM CDT us Sami Aguilera MD LABORATORY Final Result Performing Organization Address [facility] Co de Phone Number [facility] [address] [place] [address], * (ABNORMAL) BETA-HYDROXYBUTYRATE (12/04/2019 4:30 PM CDT) BETA-HYDROXYBU TYRATE 0.5(H) 0.0 - 0.3 MMOL/L 12/04/2019 4:42 PM CDT [facility] 12/04/2019 4:30 PM CDT us Sami Aguilera MD LABORATORY Final Result Performing Organization Address [facility] Co de Phone Number [facility] [address] [place] [address], * (ABNORMAL) LIPASE (12/04/2019 4:30 PM CDT) LIPASE 56(L) 73 - 393 UNITS/L 12/04/2019 4:59 PM CDT [facility] 12/04/2019 4:30 PM CDT us Sami Aguilera MD LABORATORY Final Result Performing Organization Address [facility] Co de Phone Number [facility] [address] [place] [address], [place] [phone] * (ABNORMAL) COMPREHENSIVE METABOLIC PANEL (12/04/2019 4:30 PM CDT) SODIUM S/P/B 143 136 - 145 MMOL/L 12/04/2019 4:59 PM CDT [facility] POTASSIUM S/P/B 3.6 3.5 - 5.1 MMOL/L 12/04/2019 4:59 PM CDT [facility] CHLORIDE S/P/B 108(H) 98 - 107 MMOL/L 12/04/2019 4:59 PM CDT [facility] CO2 28.7 21.0 - 32.0 MMOL/L 12/04/2019 4:59 PM T [facility] GLUCOSE 82 70 - 99 MG/DL 12/04/2019 4:59 PM T [facility] Comment: FASTING GLUCOSE 100 TO 125 MG/DL IS CONSISTENT WITH IMPAIRED FASTING GLUCOSE. FASTING GLUCOSE >125 MG/DL IS CONSISTENT WITH DIABETES. RANDOM GLUCOSE >200 MG/DL WITH HYPERGLYCEMIC SYMPTOMS IS CONSISTENT WITH DIABETES. PER ADA GUIDELINES BUN 8 6 - 24 MG/DL 12/04/2019 4:59 PM CDT [facility] CREATININE S/P/B 0.74 0.55 - 1.02 MG/DL 12/04/2019 4:59 PM CDT [facility] CALCIUM S/P/B 8.4 8.4 - 10.5 MG/DL 12/04/2019 4:59 PM CDT [facility] BILIRUBIN TOTAL S/P/B 0.5 0.2 - 1.0 MG/DL 12/04/2019 4:59 PM T [facility] Comment: THIS ASSAY IS NOT RECOMMENDED FOR PATIENTS UNDERGOING TREATMENT WITH ELTROMBOPAG DUE TO THE POTENTIAL FOR FALSELY ELEVATED RESULTS. ALKALINE PHOSPHATASE S/P/B 48 37 - 98 U/L 12/04/2019 4:59 PM T [facility] AST 13(L) 15 - 37 U/L 12/04/2019 4:59 PM CDT [facility] ALT 16 14 - 59 U/L 12/04/2019 4:59 PM CDT [facility] TOTAL PROTEIN S/P/B 6.4 6.4 - 8.2 G/DL 12/04/2019 4:59 PM T [facility] ALBUMIN S/P/B 3.3(L) 3.4 - 5.0 G/DL 12/04/2019 4:59 PM T [facility] ANION GAP 6.3 5.0 - 15.0 MMOL/L 12/04/2019 4:59 PM CDT [facility] OSMOLALITY (CALC) 293 MOSM/KG 05/14/2 020 4:59 PM CDT [facility] Comment:REFERENCE RANGE NOT ESTABLISHED EGFR NON-AFR. AMER. >90 >89 ML/MIN/1. 73 M2 12/04/2019 4:59 PM CDT [facility] EGFR AFR. AMER. >90 >89 ML/MIN/1. 73 M2 12/04/2019 4:59 PM CDT [facility] GFR NOTES GFR REFERENCE S: 12/04/2019 4:59 PM CDT [facility] Comment: THE ESTIMATED GFR IS [...] ml/min/1.73 m2 G5,KIDNEY FAILURE: <15 ml/min/1.73 m2 12/04/2019 4:30 PM CDT Sami Aguilera MD LABORATORY Final Result [facility] [address] [place] [address], * (ABNORMAL) CBC W/DIFF AUTOMATED (12/04/2019 4:30 PM CDT) WBC 9.1 4.5 - 10.8 x10'3/uL 12/04/2019 4:39 PM CDT [facility] RBC 3.70(L) 4.10 - 5.40 x10'6/uL 12/04/2019 4:39 PM CDT [facility] HGB 11.3(L) 12.0 - 16.0 G/DL 12/04/2019 4:39 PM CDT [facility] HCT 32.8(L) 36.0 - 47.0 % 12/04/2019 4:39 PM CDT [facility] MCV 88.6 78.0 - 100.0 FL 12/04/2019 4:39 PM CDT [facility] MCH 30.5 27.0 - 31.0 PG 12/04/2019 4:39 PM CDT [facility] MCHC 34.5 33.0 - 36.0 G/DL 12/04/2019 4:39 PM CDT [facility] RDW 12.0 11.5 - 14.5 % 12/04/2019 4:39 PM CDT [facility] PLT 218 150 - 350 x10'3/uL 12/04/2019 4:39 PM CDT [facility] MPV 9.6 7.4 - 10.4 FL 12/04/2019 4:39 PM CDT [facility] DIFFERENTIAL COMMENT NORMAL REFERENCE RANGE NOT ESTABLISHED FOR THE PROPORTIONAL LEUKOCYTE DIFFERENTIAL. 12/04/2019 4:39 PM CDT [facility] SEG NEUTROPHILS 69.4 % 0 4:39 PM CDT [facility] LYMPHOCYTES 22.4 % 12/04/2019 4:39 PM CDT [facility] MONOCYTES 6.6 % 12/04/2019 4:39 PM CDT [facility] EOSINOPHILS 1.0 % 12/04/2019 4:39 PM CDT [facility] BASOPHILS 0.3 % 12/04/2019 4:39 PM CDT [facility] IMMATURE GRANS % 0.3 % 12/04/19 20 4:39 PM CDT [facility] NRBC 0.0 % 12/04/2019 4:39 PM CDT [facility] ABS. NEUTROPHILS 6.29 1.60 - 8.30 x10'3/uL 12/04/2019 4:39 PM CDT [facility] ABS. LYMPHOCYTES 2.03 0.80 - 4.70 x10'3/uL 12/04/2019 4:39 PM CDT [facility] ABS. MONOCYTES 0.60 0.00 - 1.50 x10'3/uL 12/04/2019 4:39 PM CDT [facility] ABS. EOSINOPHILS 0.09 0.00 - 0.40 x10'3/uL 12/04/2019 4:39 PM CDT [facility] ABS. BASOPHILS 0.03 0.00 - 0.20 x10'3/uL 12/04/2019 4:39 PM CDT [facility] ABS. IMMATURE GRANULOCYTES 0.03 0.00 - 0.03 x10'3/uL 12/04/2019 4:39 PM CDT [facility] ABS. NUCLEATED RBC'S 0.00 0.00 x10'3/uL 12/04/2019 4:39 PM CDT [facility] 12/04/2019 4:30 PM CDT us Sami Aguilera MD LABORATORY Final Result Performing Organization Address [facility] [place] [place] [address], * OCCULT BLOOD, FECES (12/04/2019 4:05 PM CDT) OCCULT BLOOD FECAL NEGATIVE NEGATIVE 12/04/2019 4:41 PM CDT [facility] STOOL SPECIMEN / Unknown 12/04/2019 4:05 PM CDT us Sami Aguilera MD BODY FLUIDS AND STOOLS ORDERA BLES Final Result Performing Organization Address [facility] de Phone Number [facility] [address] [place] [address], documented in this encounter Visit Diagnoses Diagnosis Abdominal pain- Primary Abdominal pain, unspecified site Gastritis Unspecified gastritis and gastroduodenitis without mention of hemorrhage documented in this encounter Administered Medications Inactive Administered Medications - up to 3 most recent administrations Medication Order MAR Action Action Date Dose Rate Site iopamidol (ISOVUE-370) 76 % injection 95 mL 95 mL, Intravenous, IMG once as needed, Contrast, 1 dose, Starting on Sun12/04/19 at 1710, Until Dennise 12/04/19 at 1710 Given 12/04/2019 5:10 PM CDT 95 mLs Left Arm morphine injection 4 mg 4 mg, Intravenous, Once, 1 dose, On Dennise 12/04/19 at 1615 Given 12/04/2019 4:22 PM CDT 4 mg ondansetron (ZOFRAN) injection 4 mg 4 mg, Intravenous, Once, 1 dose, On Dennise 12/04/19 at 1615, IV push over 2-5 minutes. Given 12/04/2019 4:21 PM CDT 4 mg sodium chloride 0.9% bolus infusion SOLN 1,000 mL 1,000 mL, Intravenous, Administer over 15 Minutes, Once, 1 dose, On Dennise 12/04/19 at 1615 New Bag 12/04/2019 4:22 PM CDT 1,000 mLs 999 mL/hr documented in this encounter Active and Recently Administered Medications Times are shown in CDT. Scheduled Medication Order 12/02/2019 12/03/2019 12/04/2019 morphine injection 4 mg (COMPLETED) 4 mg, Intravenous, Once, 1 dose, On Dennise 12/04/19 at 1615 1622 (Given - Provid er: Evi Martinez RN) ondansetron (ZOFRAN) injection 4 mg (COMPLETED) 4 mg, Intravenous, Once, 1 dose, On Dennise 12/04/19 at 1615, IV push over 2-5 minutes. 1621 (Given - Provid er: Evi Martinez RN) sodium chloride 0.9% bolus infusion SOLN 1,000 mL (COMPLETED) 1,000 mL, Intravenous, Administer over 15 Minutes, Once, 1 dose, On Dennise 12/04/19 at 1615 1622 (New Bag - Prov ider: Evi Martinez RN)1745 (Infusion Stop Time - Provider: Evi Martinez RN) PRN Medication Order 12/02/2019 12/03/2019 12/04/2019 iopamidol (ISOVUE-370) 76 % injection 95 mL (COMPLETED) 95 mL, Intravenous, IMG once as needed, Contrast, 1 dose, Starting on Dennise 12/04/19 at 1710, Until Dennise 12/04/19 at 1710 1710 (Given - Provid er: Agustin Cortes RTR) documented in this encounter Care Teams Ict Security Specialist Relationship Specialty Start Date End Date Isaias Grier MD [address] [place] [phone] PCP - General FAMILY PRACTICE 01/29/19 03/18/21 documented as of this encounter
--- OUTSIDE RECORDS SUMMARY | 2024-08-03 01:10 | XMS_ITS | Encounter Summary ---
Author Organization [facility] Address [facility]6 [facility]. [place], [place] [address] [place] [id number] Care Team Providers Care Sewer Cleaner Name Role Phone Isaias Grier MD Primary Care Provider Encounter Details Date Type Department Care Team (Latest Contact Info) Description 12/04/2019 Travel Social History Tobacco Use Types Packs/Day [...] on filedocumented in this encounter Care Teams Sewer Cleaner Relationship Specialty Start Date End Date Isaias Grier MD [address] [place] [phone] PCP - General FAMILY PRACTICE 01/29/19 03/18/21 documented as of this encounter
--- OUTSIDE RECORDS SUMMARY | 2024-08-03 01:10 | XMS_ITS | Encounter Summary ---
Author Organization [facility] Address [facility] [place] [address] [place] [address] Care Team Providers Care Welding Machine Operator Friction Name Role Phone Isaias Grier MD Primary Care Provider Encounter Details Date Type Department Care Team (Latest Contact Info) Description 11/26/2019 3:12 PM CDT - 11/26/2019 11:59 PM CDT Hospital Encounter [facility] [address] [place] [address] Isaias Grier MD [address] [place] [phone] Discharge Disposition: Home or Self Care (Routine [...] have Coronavirus / COVID-19? No / Unsure 11/26/2019 3:09 PM CDT documented as of this encounter Medications at Time of Discharge levothyroxine 25 MCG tablet Take 40 mcg by mouth daily. 4 05/22/2019 pantoprazole EC 40 MG tablet Take 40 [...] Kit see administration instructions. 0 04/24/2017 0 docusate sodium 100 MG capsule Take 100 mg by mouth 2 (two) times daily. 0 IBU 800 MG tablet TAKE 1 TABLET BY MOUTH THREE TIMES A DAY NEEDED 0 03/20/2019 0 insulin glargine 100 UNIT/ML injection (VIAL) Inject 20 Units into the skin 2 (two) times daily. 0 insulin lispro (ADMELOG) 100 UNIT/ML injection (VIAL) 85 unit daily as directed per information provided seperatly per insulin pump, max daily dose 85 Unit 06/26/2018 0 insulin lispro 100 UNIT/ML injection (VIAL) Inject 10 Units into the skin 3 (three) times daily before meals. This is average dose, but uses sliding scale with it 0 KETOCARE Strip USE FOR TESTING DIRECTED 0 07/20/2017 0 metroNIDAZOLE 0.75 % gel Apply topically 2 (two) times daily. 0 ONE TOUCH ULTRA TEST STRIPS test strip CHECK BLOOD SUGARS FOUR TIMES A DAY NEEDED 1 11/09/2017 0 ONETOUCH DELICA LANCETS 33G Misc TEST BLOOD BLOOD SUGAR FOUR TIMES A DAY AND NEEDED 1 04/24/2017 0 documented as of this encounter Plan of Treatment Not on file documented as of this encounter Procedures Procedure Name Priority Date/Time Associated Diagnosis Comments XR CHEST PA+LAT Routine 11/26/2019 3:18 PM CDT Cough documented in this encounter Results * XR CHEST PA+LAT (11/26/2019 3:18 PM CDT) Anatomical Region Laterality Modality Chest Radiographic Angela ging 11/26/2019 3:20 PM CDT Impressions 11/26/2019 3:21 PM CDT IMPRESSION: No radiographic evidence of active chest disease. Interpreted By: Syl Puentes MD, 11/26/2019 3:20 PM Narrative 11/26/2019 3:21 PM CDT EXAMINATION: XR CHEST PA+LAT HISTORY:Cough. COMPARISON:Radiograph October 10, 2019. TECHNIQUE: PA and lateral images were obtained. FINDINGS: The cardiomediastinal silhouette is normal. There is no pulmonary consolidation, pleural effusion or pneumothorax. The pulmonary vasculature is normal. Procedure Note Sly Puentes MD - 11/26/2019 EXAMINATION: XR CHEST PA+LAT HISTORY:Cough. COMPARISON:Radiograph October 10, 2019. TECHNIQUE: PA and lateral images were obtained. FINDINGS: The cardiomediastinal silhouette is normal. There is no pulmonaryconsolidation, pleural effusion or pneumothorax. The pulmonary vasculatureis normal. IMPRESSION: No radiographic evidence of active chest disease. Interpreted By: Sly Puentes MD, 11/26/2019 3:20 PM us Isaias Grier MD GENERAL IMAGING Final Resul t documented in this encounter Visit Diagnoses Diagnosis Cough documented in this encounter Care Teams Welding Machine Operator Friction Relationship Specialty Start Date End Date Isaias Grier MD [address] [place] [phone] PCP - General FAMILY PRACTICE 01/29/19 03/18/21 documented as of this encounter
--- OUTSIDE RECORDS SUMMARY | 2024-08-03 01:10 | XMS_ITS | Encounter Summary ---
Author Organization [facility] Address [facility]6 [facility] [place], [place] [address] [place] [address] Care Team Providers Care Retail Coordinator Name Role Phone Isaias Grier MD Primary Care Provider [phone] Encounter Details Date Type Department Care Team (Latest Contact Info) Description 11/26/2019 Travel Social History Tobacco Use Types Packs/Day [...] on filedocumented in this encounter Care Teams Retail Coordinator Relationship Specialty Start Date End Date Isaias Grier MD [address] [place] [phone] PCP - General FAMILY PRACTICE 01/29/19 03/18/21 documented as of this encounter
--- OUTSIDE RECORDS SUMMARY | 2024-08-03 01:10 | XMS_ITS | Encounter Summary ---
Author Organization [facility] Address [facility]6 [facility] [place] [address] [place] [address] Care Team Providers Care Assembly Associate Name Role Phone Renee Hernandez MD Primary Care Provider [phone] Encounter Details Date Type Department Care Team (Latest Contact Info) Description 03/30/2021 Travel Social History Tobacco Use Types Packs/Day [...] on filedocumented in this encounter Care Teams Assembly Associate Relationship Specialty Start Date End Date Renee Hernandez MD [address] [place] [phone] PCP - General FAMILY PRACTICE 03/19/21 documented as of this encounter
--- OUTSIDE RECORDS SUMMARY | 2024-08-03 01:10 | XMS_ITS | Encounter Summary ---
Author Organization [facility] Address [facility]6 [facility] [place] [address] [place] [address] Care Team Providers Care Exerciser Name Role Phone Renee Hernandez MD Primary Care Provider [phone] Encounter Details Date Type Department Care Team (Late st Contact Info) Description 07/29/2021 11:25 AM SEISMIC OBSERVER - 07/29/2021 11:59 PM SEISMIC OBSERVER Hospital Encounter [facility] [address] [place] [id number] Renee Hernandez MD [address] [place] [phone] Discharge Disposition: Home or Self Care (Routine [...] COVID-19? No / Unsure 07/29/2021 11:22 AM SEISMIC OBSERVER documented as of this encounter Medications at [...] 40 mg by mouth daily. 3 05/22/2019 documented as of this encounter Plan of Treatment Not on file documented as of this encounter Procedures Procedure Name Priority Date/Time Associated Diagnosis Comments COMPREHENSIVE METABOLIC PANEL STAT 07/29/2021 11:47 AM SEISMIC OBSERVER Abdominal pain, acute LACTIC ACID STAT 07/29/2021 11:47 AM SEISMIC OBSERVER Abdominal pain, acute CBC W/DIFF AUTOMATED STAT 07/29/2021 11:47 AM SEISMIC OBSERVER Abdominal pain, acute AMYLASE STAT 07/29/2021 11:47 AM SEISMIC OBSERVER Abdominal pain, acute LIPASE STAT 07/29/2021 11:47 AM SEISMIC OBSERVER Abdominal pain, acute documented in this encounter Results * AMYLASE (07/29/2021 11:47 AM SEISMIC OBSERVER) AMYLASE S/P/B 49 25 - 115 UNITS/L 07/29/2021 12:08 PM SEISMIC OBSERVER [facility] 07/29/2021 11:4 7 AM SEISMIC OBSERVER us Renee Hernandez MD LABORATORY Final Result [facility] [address] [place] [address], * (ABNORMAL) LIPASE (07/29/2021 11:47 AM SEISMIC OBSERVER) LIPASE 52(L) 73 - 393 UNITS/L 07/29/2021 12:08 PM SEISMIC OBSERVER [facility] 07/29/2021 11:4 7 AM SEISMIC OBSERVER us Renee Hernandez MD LABORATORY Final Result Performing Organization Address [facility]/ZIP Co de Phone Number [facility] [address] [place] [address], * LACTIC ACID (07/29/2021 11:47 AM SEISMIC OBSERVER) LACTIC ACID VENOUS 1.9 0.4 - 2.0 MMOL/L 07/29/2021 12:11 PM [facility] 07/29/2021 11:4 7 AM SEISMIC OBSERVER Renee Hernandez MD LABORATORY Final Result Performing Organization Address [facility] Co de Phone Number [facility] [address] [place] [address], * (ABNORMAL) COMPREHENSIVE METABOLIC PANEL (07/29/2021 11:47 AM SEISMIC OBSERVER) SODIUM S/P/B 135(L) 136 - 145 MMOL/L 07/29/2021 12:08 PM [facility] POTASSIUM S/P/B 5.5(H) 3.5 - 5.1 MMOL/L 07/29/2021 12:08 PM [facility] CHLORIDE S/P/B 96(L) 98 - 107 MMOL/L 07/29/2021 12:08 PM [facility] CO2 20.5(L) 21.0 - 32.0 MMOL/L 07/29/2021 12:08 PM [facility] GLUCOSE 452(H) 70 - 99 MG/DL 07/29/2021 12:08 PM [facility] Comment: FASTING GLUCOSE 100 TO 125 MG/DL IS CONSISTENT WITH IMPAIRED FASTING GLUCOSE. FASTING GLUCOSE >125 MG/DL IS CONSISTENT WITH DIABETES. RANDOM GLUCOSE >200 MG/DL WITH HYPERGLYCEMIC SYMPTOMS IS CONSISTENT WITH DIABETES. PER ADA GUIDELINES BUN 38(H) 6 - 24 MG/DL 07/29/2021 12:08 PM [facility] CREATININE S/P/B 1.44(H) 0.55 - 1.02 MG/DL 07/29/2021 12:08 PM [facility] CALCIUM S/P/B 9.4 8.4 - 10.5 MG/DL 07/29/2021 12:08 PM [facility] BILIRUBIN TOTAL S/P/B 0.9 0.2 - 1.0 MG/DL 07/29/2021 12:08 PM [facility] Comment: THIS ASSAY IS NOT RECOMMENDED FOR PATIENTS UNDERGOING TREATMENT WITH ELTROMBOPAG DUE TO THE POTENTIAL FOR FALSELY ELEVATED RESULTS. ALKALINE PHOSPHATASE S/P/B 136(H) 37 - 98 U/L 07/29/2021 12:08 PM [facility] AST 25 15 - 37 U/L 07/29/2021 12:08 PM [facility] ALT 35 14 - 59 U/L 07/29/2021 12:08 PM [facility] TOTAL PROTEIN S/P/B 8.3(H) 6.4 - 8.2 G/DL 07/29/2021 12:08 PM [facility] ALBUMIN S/P/B 4.4 3.4 - 5.0 G/DL 07/29/2021 12:08 PM [facility] ANION GAP 18.5(H) 5.0 - 15.0 MMOL/L 07/29/2021 12:08 PM [facility] OSMOLALITY (CALC) 309 MOSM/KG 022 12:08 PM [facility] Comment:REFERENCE RANGE NOT ESTABLISHED EGFR NON-AFR. AMER. 48(L) >89 ML/MIN/1. 73 M2 07/29/2021 12:08 PM [facility] EGFR AFR. AMER. 56(L) >89 ML/MIN/1. 73 M2 07/29/2021 12:08 PM SEISMIC OBSERVER [facility] GFR NOTES GFR REFERENCE S: 07/29/2021 12:08 PM SEISMIC OBSERVER [facility] Comment: THE ESTIMATED GFR IS [...] <15 ml/min/1.73 m2 07/29/2021 11:4 7 AM SEISMIC OBSERVER us Renee Hernandez MD LABORATORY Final Result [facility] [employer] [place] [address], * (ABNORMAL) CBC W/DIFF AUTOMATED (07/29/2021 11:47 AM SEISMIC OBSERVER) WBC 8.7 4.0 - 10.8 x10'3/uL 07/29/2021 11:55 AM SEISMIC OBSERVER [facility] RBC 4.52 4.10 - 5.40 x10'6/uL 07/29/2021 11:55 AM [facility] HGB 13.6 12.0 - 16.0 G/DL 07/29/2021 11:55 AM [facility] HCT 42.2 36.0 - 47.0 % 07/29/2021 11:55 AM [facility] MCV 93.4 78.0 - 100.0 FL 07/29/2021 11:55 AM [facility] MCH 30.1 27.0 - 31.0 PG 07/29/2021 11:55 AM [facility] MCHC 32.2(L) 33.0 - 36.0 G/DL 07/29/2021 11:55 AM [facility] RDW 12.6 11.5 - 14.5 % 07/29/2021 11:55 AM [facility] PLT 256 150 - 350 x10'3/uL 07/29/2021 11:55 AM [facility] MPV 9.9 7.4 - 10.4 FL 07/29/2021 11:55 AM [facility] DIFFERENTIAL COMMENT NORMAL REFERENCE RANGE NOT ESTABLISHED FOR THE PROPORTIONAL LEUKOCYTE DIFFERENTIAL. 07/29/2021 11:55 AM [facility] SEG NEUTROPHILS 70.1 % 11:55 AM [facility] LYMPHOCYTES 23.5 % 07/29/2021 11:55 AM [facility] MONOCYTES 5.2 % 07/29/2021 11:55 AM [facility] EOSINOPHILS 0.5 % 07/29/2021 11:55 AM [facility] BASOPHILS 0.5 % 07/29/2021 11:55 AM [facility] IMMATURE GRANS % 0.2 % 07/29/19 11:55 AM [facility] NRBC 0.0 % 07/29/2021 11:55 AM [facility] ABS. NEUTROPHILS 6.07 1.60 - 8.30 x10'3/uL 07/29/2021 11:55 AM [facility] ABS. LYMPHOCYTES 2.03 0.80 - 4.70 x10'3/uL 07/29/2021 11:55 AM [facility] ABS. MONOCYTES 0.45 0.00 - 1.50 x10'3/uL 07/29/2021 11:55 AM [facility] ABS. EOSINOPHILS 0.04 0.00 - 0.40 x10'3/uL 07/29/2021 11:55 AM [facility] ABS. BASOPHILS 0.04 0.00 - 0.20 x10'3/uL 07/29/2021 11:55 AM [facility] ABS. IMMATURE GRANULOCYTES 0.02 0.00 - 0.03 x10'3/uL 07/29/2021 11:55 AM SEISMIC OBSERVER [facility] ABS. NUCLEATED RBC'S 0.00 0.00 x10'3/uL 07/29/2021 11:55 AM SEISMIC OBSERVER [facility] 07/29/2021 11:4 7 AM SEISMIC OBSERVER us Renee Hernandez MD LABORATORY Final Result [facility] [address] [place] [address], documented in this encounter Visit Diagnoses Diagnosis Abdominal pain, acute Abdominal pain, unspecified site documented in this encounter Care Teams Exerciser Relationship Specialty Start Date End Date Renee Hernandez MD [address] [place] [place] [phone] PCP - General FAMILY PRACTICE 03/19/21 documented as of this encounter
--- OUTSIDE RECORDS SUMMARY | 2024-08-03 01:10 | XMS_ITS | Encounter Summary ---
Author Organization [facility] Address [address] [place] [address]. [place] [address] [place] [address] Care Team Providers Care Service Order Taker Name Role Phone Isaias Grier MD Primary Care Provider Reason for Visit * Reason Comments Medical Problem Encounter Details Date Type Department Care Team (Late st Contact Info) Description 10/10/2019 4:22 PM CDT - 10/10/2019 7:03 PM CDT Emergency [facility] [facility] [place] [address] Antonia Ambriz, DO [address] [place] [address] Medical Problem Discharge Disposition: Home or Self Care (Routine [...] Sign Reading Time Taken Comments Blood Pressure 107/75 10/10/2019 6:30 PM CDT Pulse 110 10/10/2019 4:26 PM CDT Temperature 37.2 ??C (99 ??F) 10/10/2019 4:26 PM CDT Respiratory Rate 18 10/10/2019 4:26 PM CDT Oxygen Saturation 99% 10/10/2019 6:30 PM CDT Inhaled Oxygen Concentration - - Weight 49.9 kg (110 lb 0.2 oz) 10/10/2019 4:26 P M CDT Height 165.1 cm (5' 5 ) 10/10/2019 4:26 PM CDT Body Mass Index 18.31 10/10/2019 4:26 PM CDT documented in this encounter Discharge Instructions * Discharge Instructions* Antonia Ambriz DO - 10/10/2019 6:57 PM CDT Continue medications as previously prescribed. * Attachments The following attachments cannot be sent through Care Everywhere. * Acute Bronchitis Discharge Instructions, Adult (Martiniquais) * Smoking: Not Just Harmful to Your Lungs and Heart (Martiniquais) documented in this encounter Medications at Time [...] unit daily as directed per information provided austintlsergo per insulin pump, max daily dose 85 [...] as of this encounter ED Notes * Martina Lee RN - 10/10/2019 5:42 PM CDT Pt has insulin pump. Updated that Glucose on labs was 420. Pt giving self insulin bolus. * Antonia Ambriz DO - 10/10/2019 4:44 PM CDT I, ar Patton, am personally taking down the notes in the presence of Antonia Ambriz DO.?Take no action on this note until reviewed and authenticated??by the physician. Chief Complaint Chief Complaint Patient presents with ??? Medical Problem History of Present Illness History provided by: Patient Steph Camacho is a 28-year-old female presenting to the ED for evaluation of medical problem x 2weeks. The patient reports that she has been having a fever, cough, TIJERINA, myalgias, SOB, and sore throat. She states that her daughter was sick and when she took her to the PCP they gave them both a Zpack and prednisone. The patient reports that her symptoms have just been getting worse with a fever of 101 and worsening TIJERINA. Patient denies N/V/D abdominal pain, and chest pain. The patient states that she was swabbed for strep and was negative. She has a medical history of DM, and HLD. She has a social history of smoking and was advised to stop. They report no alleviating or exacerbating factors.Patient is otherwise in their baseline state of health and no other positive complaints were reported upon review of systems. Medical History ALLERGIES: Allergies Allergen Reactions ??? Peanut-Containing Drug Products Anaphylaxis ??? Latex Hives MEDICATIONS: Prior to Admission medications Medication Sig Start Date End Date Taking? Authorizing Provider albuterol sulfate HFA (PROAIR HFA) 108 (90 Base) MCG/ACT inhaler Inhale 2 puffs into the lungs every 6 (six) hours as needed for Wheezing. Yes Doc Abstract docusate sodium 100 MG capsule Take 100 mg by mouth 2 (two) times daily. Yes Doc Abstract metroNIDAZOLE 0.75 % gel Apply topically 2 (two) times daily. Yes Doc Abstract B-D UF III MINI PEN NEEDLES 31G X 5 MM [facility] [place] INJECTIONS FOUR TIMES A DAY 01/02/18 Doc Abstract Blood Glucose Monitoring Suppl (ONE TOUCH ULTRA MINI) w/Device Kit see administration instructions.04/24/17 Doc Abstract IBU 800 MG tablet TAKE 1 TABLET BY MOUTH THREE TIMES A DAY NEEDED 03/20/19 Doc Abstract insulin glargine 100 UNIT/ML injection (VIAL) Inject 20 Units into the skin 2 (two) times daily. Doc Abstract insulin lispro (ADMELOG) 100 UNIT/ML injection (VIAL) 85 unit daily as directed per information provided seperatly per insulin pump, max daily dose 85 Unit 06/26/18 Doc Abstract insulin lispro 100 UNIT/ML injection (VIAL) Inject 10 Units into the skin 3 (three) times daily before meals. This is average dose, but uses sliding scale with it Doc Abstract KETOCARE Strip USE FOR TESTING DIRECTED 07/20/17 Doc Abstract levothyroxine 25 MCG tablet Take 25 mcg by mouth daily. 05/22/19 Doc Abstract ONE TOUCH ULTRA TEST STRIPS test strip CHECK BLOOD SUGARS FOUR TIMES A DAY NEEDED 11/09/17 Doc Abstract ONETOUCH DELICA LANCETS 33G Misc TEST BLOOD BLOOD SUGAR FOUR TIMES A DAY AND NEEDED 04/24/17 DocAbstract pantoprazole EC 40 MG tablet Take 40 mg by mouth daily. 05/22/19 Doc Abstract PAST MEDICAL HISTORY: Past Medical History: Diagnosis Date ??? Anxiety ??? Bronchitis ??? Diabetes mellitus (CMS/HCC) ??? Gastrointestinal ulcer ??? GERD (gastroesophageal reflux disease) ??? Hx of insertion of insulin pump has been removed ??? Hypercholesteremia ??? Hypotension ??? UTI (urinary tract infection) PAST SURGICAL HISTORY: Past Surgical History: Procedure Laterality Date ??? COLONOSCOPY FAMILY HISTORY: Family History Problem Relation Name Age of Onset ??? Diabetes Mother ??? Asthma Mother SOCIAL HISTORY: Social History Tobacco Use ??? Smoking status: Current Every Day Smoker Types: Cigarettes ??? Smokeless tobacco: Never Used Substance Use Topics ??? Alcohol use: No Frequency: Never ??? Drug use: No Review of Systems Review of Systems Constitutional: Positive for fever. HENT: Positive for sore throat. Eyes: Negative. Respiratory: Positive for cough and shortness of breath. Cardiovascular: Negative. Negative for chest pain. Gastrointestinal: Negative. Negative for abdominal pain, diarrhea, nausea and vomiting. Endocrine: Negative. Genitourinary: Negative. Musculoskeletal: Positive for myalgias. Skin: Negative. Allergic/Immunologic: Negative. Neurological: Positive for headaches. Hematological: Negative. Psychiatric/Behavioral: Negative. Physical Exam Filed Vitals: 10/10/19 1740 10/10/19 1750 10/10/19 1800 10/10/19 1830 BP: 112/76 109/73 107/75 Pulse: Resp: Temp: TempSrc: SpO2: 100% 98% 99% 99% Weight: Height: Physical Exam Nursing note and vitals reviewed. Generalized Appearance: No apparent distress. Well developed. Well nourished. Skin: Warm and dry. No rash. Head: Normocephalic and atraumatic Eyes: Conjunctiva clear with no scleral icterus or jaundice. PERRL/EOMI ENT: TM's are clear. Oral mucosa is moist. Uvula is midline and nonedematous. Tonsils are normal size and symmetric with no erythema present. Oropharynx is clear. Chest and Respiratory: Airway patent. Breath sounds equal. Lungs clear with auscultation. No stridor, wheezes, rales, or rhonchi. No accessory muscle use. No respiratory distress. Cardiovascular: Regular rate and rhythm. No murmur, rubs, or gallops. Abdominal: Non-tender. Bowel sounds present. Soft. Non-distended. No obvious masses or hernias. No rebound, guarding, or rigidity. Musculoskeletal: Normal ROM. No deformity. Neurologic: Alert and oriented x 3. No gross motor deficits. Mental Status: Normal affect. Genital-Rectal: female deferred Diagnostic Studies / Procedures ELECTROCARDIOGRAMS: No results found for this visit on 10/10/19. LABORATORY STUDIES: Results for orders placed or performed during the hospital encounter of 10/10/19 CBC W/DIFF AUTOMATED Result Value Ref Range WBC 7.3 4.5 - 10.8 x10'3/uL RBC 4.02 (L) 4.10 - 5.40 x10'6/uL HGB 12.4 12.0 - 16.0 G/DL HCT 36.5 36.0 - 47.0 % MCV 90.8 78.0 - 100.0 FL MCH 30.8 27.0 - 31.0 PG MCHC 34.0 33.0 - 36.0 G/DL RDW 12.3 11.5 - 14.5 % PLT 251 150 - 350 x10'3/uL MPV 10.2 7.4 - 10.4 FL Differential Comment NORMAL REFERENCE RANGE NOT ESTABLISHED FOR THE PROPORTIONAL LEUKOCYTE DIFFERENTIAL. SEG NEUTROPHILS 87 % LYMPHOCYTES 8 % MONOCYTES 4 % EOSINOPHILS 1 % ABS. NEUTROPHIL COUNT 6.36 1.60 - 8.30 x10'3/uL ABS. LYMPHOCYTES 0.58 (L) 0.80 - 4.70 x10'3/uL ABS. MONOCYTES 0.29 0.10 - 1.50 x10'3/uL ABS. EOSINOPHILS 0.07 0.00 - 0.40 x10'3/uL PLT MORPH. NORMAL RBC MORPHOLOGY NORMAL COMPREHENSIVE METABOLIC PANEL Result Value Ref Range SODIUM 134 (L) 136 - 145 MMOL/L POTASSIUM 4.5 3.5 - 5.1 MMOL/L CHLORIDE S/P/B 99 98 - 107 MMOL/L CO2 24.4 21.0 - 32.0 MMOL/L GLUCOSE 420 (H) 70 - 99 MG/DL BUN 18 6 - 24 MG/DL CREATININE S/P/B 1.17 (H) 0.55 - 1.02 MG/DL CALCIUM 8.3 (L) 8.4 - 10.5 MG/DL TOTAL BILIRUBIN S/P/B 0.2 0.2 - 1.0 MG/DL ALK PHOS 114 (H) 37 - 98 U/L AST 11 (L) 15 - 37 U/L ALT 25 14 - 59 U/L TOTAL PROTEIN 7.0 6.4 - 8.2 G/DL ALBUMIN S/P/B 3.3 (L) 3.4 - 5.0 G/DL ANION GAP 10.6 5.0 - 15.0 MMOL/L OSMOLALITY (CALC) 298 MOSM/KG eGFR Non-Afr. Amer. 62 (L) >89 ML/MIN/1.73 M2 eGFR Afr. Amer. 72 (L) >89 ML/MIN/1.73 M2 GFR NOTES GFR REFERENCES: HCG QUANT (SERUM)-CHORIONIC GONADOTROPIN Result Value Ref Range HCG, QUANTITATIVE <1 0.0 - 6.0 MIU/ML POCT glucose Result Value Ref Range GLUCOSE POC 345 (H) 70 - 99 MG/DL INFLUENZA A & B Result Value Ref Range Spec. Description NASOPHARYNGEAL SWAB Special Requests: NO SPECIAL REQUEST Result NEGATIVE Result A NEGATIVE RESULT DOES NOT EXCLUDE INFLUENZA VIRUS INFECTION. IF INFLUENZA IS CIRCULATING IN YOUR COMMUNITY, A DIAGNOSIS OF INFLUENZA SHOULD BE CONSIDERED BASED ON A PATIENT'S CLINICAL PRESENTATION AND EMPIRIC ANTIVIRAL TREATMENT SHOULD BE CONSIDERED IF INDICATED. RAPID STREP A Result Value Ref Range Spec. Description THROAT Special Requests: NO SPECIAL REQUEST RAPID STREP TEST NEGATIVE STREP A, DNA Result Value Ref Range Spec. Description THROAT Special Requests: NO SPECIAL REQUEST Result NEGATIVE IMAGING STUDIES XR CHEST PA+LAT Final Result by User, [id number] (10/09 1800) Date: 10/10/2019 5:51 PM Exam: XR CHEST PA+LAT Comparison: Chest radiography dated 12/07/2018. Technique: Two-view chest. History: Cough and shortness of breath. Chest tightness since Sunday. Diabetes, current smoker. Findings: The cardiac silhouette and pulmonary vascularity are within normal limits. The lungs are clear without consolidation or pleural effusion. There is no pneumothorax. There is bronchial wall thickening. The osseous structures appear normal. Impression: Bronchial wall thickening could indicate bronchitis, reactive airway disease and/or be attributable to smoking. Interpreted By: Adolfo Brush, 10/10/2019 5:59 PM ED Course / Medical Decision Making MDM Number of Diagnoses or Management Options Acute bronchitis: new and requires workup Tobacco abuse: minor Amount and/or Complexity of Data Reviewed Clinical lab tests: reviewed and ordered Tests in the radiology section of CPT??: reviewed and ordered Risk of Complications, Morbidity, and/or Mortality Presenting problems: moderate Diagnostic procedures: moderate Management options: low Patient Progress Patient progress: stable Clinical Impression Acute bronchitis (Primary) Tobacco abuse Medications - No data to display Discharge Medication List as of 10/10/2019 6:59 PM Isaias Grier MD [address] [place] [phone] In 1 week If symptoms not improving Disposition: Discharge Phani Cruz, 10/10/19, 17:13. Provider Attestation: I,ANTONIA AMBRIZ DO attest that I supervised the patient care provided and have reviewed the documentation recorded by the scribe in conjunction with myself for the duration of our concurrent shift. Any documentation I have added that may be in conflict with that documented by the scribe should be considered the documentation of record. Antonia Ambriz DO 10/26/19 1357 * Fela Rojas RN - 10/10/2019 4:23 PM CDT Arrives w cough, and is sob, seen PCP on Sunday and was Rx'd Zpack, and Prednisone, called her PCP today due to having a temp of 99, was directed to come into ED. documented in this encounter Plan of Treatment Not on file documented as of this encounter Procedures Procedure Name Priority Date/Time Associated Diagnosis Comments POCT GLUCOSE - ALARCON DOCKED DEVICE Routine 10/10/2019 6:14 PM CDT XR CHEST PA+LAT STAT 10/10/2019 5:51 PM CDT INFLUENZA A & B STAT 10/10/2019 5:20 PM CDT COMPREHENSIVE METABOLIC PANEL STAT 10/10/2019 5:07 PM CDT HCG QUANT (SERUM)-CHORIONIC GONADOTROPIN STAT 10/10/2019 5:07 PM CDT CBC W/DIFF AUTOMATED STAT 10/10/2019 5:07 PM CDT STREP A, DNA Routine 10/10/2019 5:00 PM CDT RAPID STREP A STAT 10/10/2019 5:00 PM CDT documented in this encounter Results * (ABNORMAL) POCT glucose (10/10/2019 6:14 PM CDT) GLUCOSE POC 345(H) 70 - 99 MG/DL 10/10/2019 6:15 PM CDT [facility] ORDERS INTERFACE 10/10/2019 6:14 PM CDT us Antonia Ambriz DO POCT ORDERABLES - DEVICE Final R esult [facility] ORDERS INTERFACE US * XR CHEST PA+LAT (10/10/2019 5:51 PM CDT) Anatomical Region Laterality Modality Chest Radiographic Angela ging 10/10/2019 5:59 PM CDT Impressions 10/10/2019 6:00 PM CDT Impression: Bronchial wall thickening could indicate bronchitis, reactive airway disease and/or be attributable to smoking. Interpreted By: Adolfo Brush, 10/10/2019 5:59 PM Narrative 10/10/2019 6:00 PM CDT Date: 10/10/2019 5:51 PM Exam: XR CHEST PA+LAT Comparison: Chest radiography dated 12/07/2018. Technique: Two-view chest. History: Cough and shortness of breath. Chest tightness since Sunday. Diabetes, current smoker. Findings: The cardiac silhouette and pulmonary vascularity are within normal limits. The lungs are clear without consolidation or pleural effusion. There is no pneumothorax. There is bronchial wall thickening. The osseous structures appear normal. Procedure Note Adolfo Brush MD - 10/10/2019 Date: 10/10/2019 5:51 PM Exam: XR CHEST PA+LAT Comparison: Chest radiography dated 12/07/2018. Technique: Two-view chest. History: Cough and shortness of breath. Chest tightness since Sunday. Diabetes, current smoker. Findings: The cardiac silhouette and pulmonary vascularity are within normal limits. The lungs are clear without consolidation or pleural effusion. There is no pneumothorax. There is bronchial wall thickening.The osseous structures appear normal. Impression: Bronchial wall thickening could indicate bronchitis,reactive airway disease and/or be attributable to smoking. Interpreted By: Adolfo Brush, 10/10/2019 5:59 PM us Antonia Ambriz DO GENERAL IMAGING Final Result * INFLUENZA A & B (10/10/2019 5:20 PM CDT) SPEC DESCRIPTION NASOPHARYNGEAL SWAB 10/10/2019 5:07 PM CDT [facility] SPECIAL REQUESTS NO SPECIAL REQUEST 10/10/2019 5:07 PM CDT [facility] RESULT NEGATIVE 10/10/2019 5:44 PM CDT [facility] RESULT A NEGATIVE RESULT DOES NOT EXCLUDE INFLUENZA VIRUS INFECTION. ??IF INFLUENZA IS CIRCULATING IN YOUR COMMUNITY, A DIAGNOSIS OF INFLUENZA SHOULD BE CONSIDERED BASED ON A PATIENT'S CLINICAL PRESENTATION AND EMPIRIC ANTIVIRAL TREATMENT SHOULD BE CONSIDERED IF INDICATED. 10/10/2019 5:44 PM CDT [facility] NASOPHARYNGEAL SWAB / Unknown 10/10/2019 5:20 PM CDT 10/10/2019 5:23 PM CDT us Antonia Ambriz DO MICROBIOLOGY - GENERAL ORDERABLE S Final Result [facility] [address] [place] [address], * HCG QUANT (SERUM)-CHORIONIC GONADOTROPIN (10/10/2019 5:07 PM CDT) HCG QUANTITATIVE <1 0.0 - 6.0 MIU/ML 10/10/2019 5:34 PM CDT [facility] Comment:NON- FEMALE 0-6 10/10/2019 5:07 PM CDT Antonia Ambriz DO LABORATORY Final Result [facility] [address] [place] [address], * (ABNORMAL) COMPREHENSIVE METABOLIC PANEL (10/10/2019 5:07 PM CDT) SODIUM S/P/B 134(L) 136 - 145 MMOL/L 10/10/2019 5:34 PM CDT [facility] POTASSIUM S/P/B 4.5 3.5 - 5.1 MMOL/L 10/10/2019 5:34 PM CDT [facility] CHLORIDE S/P/B 99 98 - 107 MMOL/L 10/10/2019 5:34 PM CDT [facility] CO2 24.4 21.0 - 32.0 MMOL/L 10/10/2019 5:34 PM CDT [facility] GLUCOSE 420(H) 70 - 99 MG/DL 10/10/2019 5:34 PM CDT [facility] Comment: FASTING GLUCOSE 100 TO 125 MG/DL IS CONSISTENT WITH IMPAIRED FASTING GLUCOSE. FASTING GLUCOSE >125 MG/DL IS CONSISTENT WITH DIABETES. RANDOM GLUCOSE >200 MG/DL WITH HYPERGLYCEMIC SYMPTOMS IS CONSISTENT WITH DIABETES. PER ADA GUIDELINES BUN 18 6 - 24 MG/DL 10/10/2019 5:34 PM CDT [facility] CREATININE S/P/B 1.17(H) 0.55 - 1.02 MG/DL 10/10/2019 5:34 PM CDT [facility] CALCIUM S/P/B 8.3(L) 8.4 - 10.5 MG/DL 10/10/2019 5:34 PM CDT [facility] BILIRUBIN TOTAL S/P/B 0.2 0.2 - 1.0 MG/DL 10/10/2019 5:34 PM CDT [facility] Comment: THIS ASSAY IS NOT RECOMMENDED FOR PATIENTS UNDERGOING TREATMENT WITH ELTROMBOPAG DUE TO THE POTENTIAL FOR FALSELY ELEVATED RESULTS. ALKALINE PHOSPHATASE S/P/B 114(H) 37 - 98 U/L 10/10/2019 5:34 PM T [facility] AST 11(L) 15 - 37 U/L 10/10/2019 5:34 PM [facility] ALT 25 14 - 59 U/L 10/10/2019 5:34 PM [facility] TOTAL PROTEIN S/P/B 7.0 6.4 - 8.2 G/DL 10/10/2019 5:34 PM [facility] ALBUMIN S/P/B 3.3(L) 3.4 - 5.0 G/DL 10/10/2019 5:34 PM [facility] ANION GAP 10.6 5.0 - 15.0 MMOL/L 10/10/2019 5:34 PM T [facility] OSMOLALITY (CALC) 298 MOSM/KG 020 5:34 PM [facility] Comment:REFERENCE RANGE NOT ESTABLISHED EGFR NON-AFR. AMER. 62(L) >89 ML/MIN/1. 73 M2 10/10/2019 5:34 PM [facility] EGFR AFR. AMER. 72(L) >89 ML/MIN/1. 73 M2 10/10/2019 5:34 PM [facility] GFR NOTES GFR REFERENCE S: 10/10/2019 5:34 PM [facility] Comment: THE ESTIMATED GFR IS CALCULATED [...] ml/min/1.73 m2 G5,KIDNEY FAILURE: <15 ml/min/1.73 m2 10/10/2019 5:07 PM CDT us Antonia Ambriz DO LABORATORY Final Result [facility] [address] [place] [address], * (ABNORMAL) CBC W/DIFF AUTOMATED (10/10/2019 5:07 PM CDT) WBC 7.3 4.5 - 10.8 x10'3/uL 10/10/2019 5:31 PM CDT [facility] RBC 4.02(L) 4.10 - 5.40 x10'6/uL 10/10/2019 5:31 PM CDT [facility] HGB 12.4 12.0 - 16.0 G/DL 10/10/2019 5:31 PM CDT [facility] HCT 36.5 36.0 - 47.0 % 10/10/2019 5:31 PM CDT [facility] MCV 90.8 78.0 - 100.0 FL 10/10/2019 5:31 PM CDT [facility] MCH 30.8 27.0 - 31.0 PG 10/10/2019 5:31 PM CDT [facility] MCHC 34.0 33.0 - 36.0 G/DL 10/10/2019 5:31 PM CDT [facility] RDW 12.3 11.5 - 14.5 % 10/10/2019 5:31 PM CDT [facility] PLT 251 150 - 350 x10'3/uL 10/10/2019 5:31 PM CDT [facility] MPV 10.2 7.4 - 10.4 FL 10/10/2019 5:31 PM CDT [facility] DIFFERENTIAL COMMENT NORMAL REFERENCE RANGE NOT ESTABLISHED FOR THE PROPORTIONAL LEUKOCYTE DIFFERENTIAL. 10/10/2019 5:31 PM CDT [facility] SEG NEUTROPHILS 87 % 0 5:39 PM CDT [facility] LYMPHOCYTES 8 % 10/10/2019 5:39 PM CDT [facility] MONOCYTES 4 % 10/10/2019 5:39 PM CDT [facility] EOSINOPHILS 1 % 10/10/2019 5:39 PM CDT [facility] ABS. NEUTROPHILS CALCULATED 6.36 1.60 - 8.30 x10'3/uL 10/10/2019 5:39 PM CDT [facility] ABS. LYMPHOCYTES 0.58(L) 0.80 - 4.70 x10'3/uL 10/10/2019 5:39 PM CDT [facility] ABS. MONOCYTES 0.29 0.10 - 1.50 x10'3/uL 10/10/2019 5:39 PM CDT [facility] ABS. EOSINOPHILS 0.07 0.00 - 0.40 x10'3/uL 10/10/2019 5:39 PM CDT [facility] PLT MORPH. NORMAL 10/10/2019 5:39 PM CDT [facility] RBC MORPHOLOGY NORMAL 10/10/2019 5:39 PM CDT [facility] 10/10/2019 5:07 PM CDT us Antonia Ambriz DO LABORATORY Final Result [facility] [address] [place] [address], * STREP A, DNA (10/10/2019 5:00 PM CDT) SPEC DESCRIPTION THROAT 10/10/2019 5:30 PM CDT [facility] SPECIAL REQUESTS NO SPECIAL REQUEST 10/10/2019 5:30 PM CDT [facility] RESULT NEGATIVE 10/10/2019 6:33 PM CDT [facility] THROAT SWAB / Unknown 10/10/2019 5:00 PM CDT 10/10/2019 5:30 PM CDT us Antonia Ambriz DO MICROBIOLOGY - GENERAL ORDERABLE S Final Result [facility] [address] [place] [address], * RAPID STREP A (10/10/2019 5:00 PM CDT) SPEC DESCRIPTION THROAT 10/10/2019 5:07 PM CDT [facility] SPECIAL REQUESTS NO SPECIAL REQUEST 10/10/2019 5:07 PM CDT [facility] RAPID STREP TEST NEGATIVE 10/10/2019 5:30 PM CDT [facility] THROAT SWAB / Unknown 10/10/2019 5:00 PM CDT 10/10/2019 5:12 PM CDT Antonia Ambriz DO MICROBIOLOGY - GENERAL ORDERABLE S Final Result [facility] [place] [id number] [place] [address], documented in this encounter Visit Diagnoses Diagnosis Acute bronchitis- Primary Tobacco abuse Tobacco use disorder documented in this encounter Care Teams Service Order Taker Relationship Specialty Start Date End Date Isaias Grier MD [address] [place] [phone] PCP - General FAMILY PRACTICE 01/29/19 03/18/21 documented as of this encounter
--- OUTSIDE RECORDS SUMMARY | 2024-08-03 01:10 | XMS_ITS | Clinical Summary ---
Author Organization [facility] Address [facility] [place] [address] [place] [address] Care Team Providers Care Brazer Electronic Name Role Phone Renee Hernandez MD Primary Care Provider [phone] Allergies Active Allergy Reactions Criticality Noted Date Comments Latex Hives 07/27/2019 Peanut-Containing Drug Products Anaphylaxis High 11/2019 Medications levothyroxine 25 MCG tablet Take 40 mcg by mouth daily. 4 05/22/20 19 Active pantoprazole EC 40 MG tablet Take 40 mg by mouth daily. 3 05/22/20 Active NON FORMULARYIndicatio ns:avalog insulin via continuous pump Indications: avalog insulin via continuous pump Active ondansetron 4 MG disintegrating tablet Take 1 tablet (4 mg total) by mouth every 8 (eight) hours as needed for Nausea. 20 tablet 03/01/20 20 Active Additional Information Patient taking differently: 8 mgOral Every 8 hours PRN, Nausea, Reported on 03/19/2021 HYDROcodone-acetam inophen 5-325 MG tabletIndications: Acute Pain < 7 Day Supply Take 1-2 tablets by mouth every 6 (six) hours as needed. Indications: Acute Pain < 7 Day Supply 20 tablet 03/30/20 21 Active Active Problems Problem Noted Date Diagnosed Date Diabetic ketoacidosis ([facility]) 04/08/20 18 High anion gap metabolic acidosis 04/08/2018 Type 1 diabetes mellitus ([facility]) 04/08 Hyponatremia 04/08/2018 Hyperglycemia 04/08/2018 Hyperlipidemia 04/08/2018 Smoker 04/08/2018 Anxiety 04/08/2018 Depression 04/08/2018 UTI (urinary tract infection) 04/08/2018 Encounters Date Type Department Care Team Description 05/22/2024 2:02 PM CDT - 05/22/2024 11:59 PM CDT Hospital Encounter [facility] [address] [place] [address] Rayna Dior NP Discharge Disposition: Home or Self Care (Routine Discharge) 05/22/2024 2:00 PM CDT - 05/22/2024 2:01 PM CDT Hospital Encounter [facility] [address] [place] [address] Rayna Dior NP Discharge Disposition: Home or Self Care (Routine Discharge) 05/22/[address] [facility] [address] [place] [address] Rayna Dior NP 05/22/[address] [facility] [address] [place] [address] Rayna Dior NP 05/22/2024 Travel from Last 3 Months Immunizations Name Administration Dates Next Due Dtp (Generic) 03/01/1994,10/10/1991,01/31/1991 ,09/07/1989 Fluarix (IIV4) 04/09/2018 Hepatitis B Pediatric 10/11/1998,06/14/1998,03/24 Influenza Adult (Generic) 04/24/2017 MMR (Generic) 03/01/1994,10/10/1991 Opv 03/01/1994,10/10/1991,01/31/1991 ,09/07/1989 Pneumococcal (Pneumovax 23) 06/23/2015 Td (Tenivac) preservative free 03/06/2003 Family History Medical History Relation Comments Asthma Mother Diabetes Mother Relation Status Comments Mother Social History Tobacco Use Types Packs/Day Years [...] Orientation Straight 04/08/2018 12 :39 PM CDT Last Filed Vital Signs Vital Sign Reading [...] Mass Index 17.87 03/30/2021 6:40 PM CDT Plan of Treatment Health Maintenance Due Date Last Done Comments Kidney Health Evaluation 1988 Annual Physical 11/28/1991 DTaP, Tdap and Td Vaccines (5 - Tdap) 03/07/2003 03/06/2003, 03/01/1994, 10/10/1991, Additional history exists Diabetes: Retinopathy Eye Exam 2006 Hepatitis C 2006 Pneumococcal Vaccine: Pediatrics (0 to 5 Years) and At-Risk Patients (6 to 64 Years) (2 of 2 - PCV) 06/23/2016 06/23/2015 Hemoglobin A1C 10/06/2018 04/08/2018, 04/24/2017 Lipid Panel 04/08/2019 04/08/2018 Cervical Cancer Screening Pap Smear (Age 21 to 29) Every 3 Years 04/08/2021 04/08/2018, 04/08/2018 Cervical Cancer Screening 04/08/2021 COVID-19 Vaccine ( season) 2024 Influenza Adult (#1) 2024 04/09/2018, 04/24/20 17 Hepatitis B Vaccines Completed 10/11/1998, 06/14/1998, 04/15/1998 HPV Vaccines Aged Out No longer eligi ble based on patient's age to complete this topic Meningococcal Vaccine Aged Out No fernanda criselda eligible based on patient's age to complete this topic RSV Immunizations Under 20 Months Aged Out No longer eligible based on patient's age to complete this topic Procedures Procedure Name Priority Date/Time Associated Diagnosis Comments XR CHEST PA+LAT Routine 05/22/2024 2:40 PM CDT Upper respiratory virus RESPIRATORY PCR PANEL 2 Routine 05/22/2024 2:11 PM CDT Acute upper respiratory infection CBC W/DIFF AUTOMATED Routine 05/22/2024 2:11 PM CDT Hypothyroidism Hematemesis Acute upper respiratory infection COMPREHENSIVE METABOLIC PANEL Routine 05/22/2024 2:11 PM CDT Hypothyroidism Hematemesis Acute upper respiratory infection THYROXINE, FREE (FT4) Routine 05/22/2024 2:11 PM CDT Hypothyroidism Hematemesis Acute upper respiratory infection THYROID STIM HORMONE TSH Routine 05/22/2024 2:11 PM CDT Hypothyroidism Hematemesis Acute upper respiratory infection HEMOGLOBIN, GLYCOSYLATED Routine 04/08/2018 12:41 PM CDT LIPID PANEL Routine 04/08/2018 12:13 PM CDT CYTOPATH CERV/VAG THIN LAYER Routine 04/08/2018 6:52 AM CDT from Last 3 Months or Most Recently Relevant to Health Maintenance Results * XR CHEST PA+LAT (05/22/2024 2:40 PM CDT) Anatomical Region Laterality Modality Chest Radiographic Anglea ging 05/22/2024 2:46 PM CDT Impressions 05/22/2024 2:48 PM CDT IMPRESSION: No active cardiopulmonary disease. Ordered By: RAYNA DIOR Interpreted By: Rodger Andrade MD, 05/22/2024 2:46 PM Narrative 05/22/2024 2:48 PM [address]T [address] [place] [address] 05/22/2024, 1423 hours. HISTORY: Upper respiratory virus. Cough and chest congestion for one week. EXAM: PA and lateral views of chest. Correlation to study 03/19/2021. FINDINGS: The lungs are clear of active infiltrates. The heart size and pulmonary vascularity are within normal limits. No pleural effusion. No pneumothorax. Surgical clips right upper quadrant of the abdomen suggesting previous cholecystectomy. Procedure Note Rodger Andrade MD - 05/22/2024 [facility] [address] [place] [address] 05/22/2024, 1423 hours. HISTORY: Upper respiratory virus. Cough and chest congestion for oneweek. EXAM: PA and lateral views of chest. Correlation to study 03/19/2021. FINDINGS: The lungs are clear of active infiltrates. The heart size andpulmonary vascularity are within normal limits. No pleural effusion. Nopneumothorax. Surgical clips right upper quadrant of the abdomensuggesting previous cholecystectomy. IMPRESSION: No active cardiopulmonary disease. Ordered By: RAYNA DIOR Interpreted By: Rodger Andrade MD, 05/22/2024 2:46 PM Rayna Dior MATERIAL DAMAGE APPRAISER GENERAL IMAGING Final Result * RESPIRATORY PCR PANEL (W COVID) (05/22/2024 2:11 PM CDT) ADENOVIRUS PCR (RESP) NOT DETECTED NOT DETECTED 05/23/2024 2:08 PM CDT [facility] CORONAVIRUS 229E PCR (RESP) NOT DETECTED NOT DETECTED 05/23/2024 2:08 PM CDT [facility] CORONAVIRUS HKU1 PCR (RESP) NOT DETECTED NOT DETECTED 05/23/2024 2:08 PM CDT [facility] CORONAVIRUS NL63 PCR (RESP) NOT DETECTED NOT DETECTED 05/23/2024 2:08 PM CDT [facility] CORONAVIRUS OC43 PCR (RESP) NOT DETECTED NOT DETECTED 05/23/2024 2:08 PM CDT [facility] METAPNEUMOVIRUS PCR (RESP) NOT DETECTED NOT DETECTED 05/23/2024 2:08 PM CDT [facility] RHINOVIRUS/ENTEROV IRUS PCR (RESP) NOT DETECTED NOT DETECTED 05/23/2024 2:08 PM CDT [facility] INFLUENZA A PCR (RESP) NOT DETECTED NOT DETECTED 05/23/2024 2:08 PM CDT [facility] INFLUENZA B PCR (RESP) NOT DETECTED NOT DETECTED 05/23/2024 2:08 PM CDT [facility] PARAINFLUENZA 1 PCR (RESP) NOT DETECTED NOT DETECTED 05/23/2024 2:08 PM CDT [facility] PARAINFLUENZA 2 PCR (RESP) NOT DETECTED NOT DETECTED 05/23/2024 2:08 PM CDT [facility] PARAINFLUENZA 3 PCR (RESP) NOT DETECTED NOT DETECTED 05/23/2024 2:08 PM CDT [facility] PARAINFLUENZA 4 PCR (RESP) NOT DETECTED NOT DETECTED 05/23/2024 2:08 PM CDT [facility] RSV PCR (RESP) NOT DETECTED NOT DETECTED 05/23/2024 2:08 PM CDT [facility] B PARAPERTUSIS PCR (RESP) NOT DETECTED NOT DETECTED 05/23/2024 2:08 PM CDT [facility] BORDETELLA PERTUSSIS PCR (RESP) NOT DETECTED NOT DETECTED 05/23/2024 2:08 PM CDT [facility] CHLAMYDOPHILA PNEUMONIAE PCR (RESP) NOT DETECTED NOT DETECTED 05/23/2024 2:08 PM CDT [facility] MYCOPLASMA PNEUMONIAE PCR (RESP) NOT DETECTED NOT DETECTED 05/23/2024 2:08 PM CDT [facility] CORONAVIRUS SARS COV 2 PCR (RESP) NOT DETECTED NOT DETECTED 05/23/2024 2:08 PM CDT [facility] NASOPHARYNGEAL SWAB / Unknown 05/22/2024 2:11 PM CDT us Rayna Dior MAIDA MICROBIOLOGY - GENERAL ORDERABLE S Final Result [facility] [address] [place] [address], [id number] * (ABNORMAL) COMPREHENSIVE METABOLIC PANEL (05/22/2024 2:11 PM CDT) SODIUM S/P/B 136 136 - 145 MMOL/L 05/22/2024 3:00 PM CDT [facility] POTASSIUM S/P/B 5.2(H) 3.5 - 5.1 MMOL/L 05/22/2024 3:00 PM CDT [facility] CHLORIDE S/P/B 98 98 - 107 MMOL/L 05/22/2024 3:00 PM CDT [facility] CO2 30.3 21.0 - 32.0 MMOL/L 05/22/2024 3:00 PM CDT [facility] GLUCOSE 174(H) 70 - 99 MG/DL 05/22/2024 3:00 PM CDT [facility] Comment: FASTING GLUCOSE 100 TO 125 MG/DL IS CONSISTENT WITH IMPAIRED FASTING GLUCOSE. FASTING GLUCOSE >125 MG/DL IS CONSISTENT WITH DIABETES. RANDOM GLUCOSE >200 MG/DL WITH HYPERGLYCEMIC SYMPTOMS IS CONSISTENT WITH DIABETES. PER ADA GUIDELINES BUN 21 6 - 24 MG/DL 05/22/2024 3:00 PM CDT [facility] CREATININE S/P/B 0.98 0.55 - 1.02 MG/DL 05/22/2024 3:00 PM CDT [facility] CALCIUM S/P/B 9.5 8.4 - 10.5 MG/DL 05/22/2024 3:00 PM CDT [facility] BILIRUBIN TOTAL S/P/B 0.5 0.2 - 1.0 MG/DL 05/22/2024 3:00 PM CDT [facility] Comment: THIS ASSAY IS NOT RECOMMENDED FOR PATIENTS UNDERGOING TREATMENT WITH ELTROMBOPAG DUE TO THE POTENTIAL FOR FALSELY ELEVATED RESULTS. ALKALINE PHOSPHATASE S/P/B 120(H) 37 - 98 U/L 05/22/2024 3:00 PM CDT [facility] AST 26 15 - 37 U/L 05/22/2024 3:00 PM CDT [facility] ALT 44 14 - 59 U/L 05/22/2024 3:00 PM CDT [facility] TOTAL PROTEIN S/P/B 8.2 6.4 - 8.2 G/DL 05/22/2024 3:00 PM CDT [facility] ALBUMIN S/P/B 4.0 3.4 - 5.0 G/DL 05/22/2024 3:00 PM CDT [facility] ANION GAP 7.7 5.0 - 15.0 MMOL/L 05/22/2024 3:00 PM CDT [facility] OSMOLALITY (CALC) 289 MOSM/KG 024 3:00 PM CDT [facility] Comment:REFERENCE RANGE NOT ESTABLISHED GFR ESTIMATE 77(L) >89 ML/MIN/1. 73 M2 05/22/2024 3:00 PM CDT [facility] GFR NOTES GFR REFERENCE S: 05/22/2024 3:00 PM CDT [facility] Comment: THE ESTIMATED GFR IS [...] <15 ml/min/1.73 m2 05/22/2024 2:11 PM CDT us Rayna Dior NP LABORATORY Final Result [facility] [address] [place] [address], * CBC W/DIFF AUTOMATED (05/22/2024 2:11 PM CDT) WBC 5.55 4.00 - 10.80 x10'3/uL 05/22/2024 2:39 PM CDT [facility] RBC 4.38 4.10 - 5.40 x10'6/uL 05/22/2024 2:39 PM CDT [facility] HGB 13.4 12.0 - 16.0 G/DL 05/22/2024 2:39 PM CDT [facility] HCT 39.2 36.0 - 47.0 % 05/22/2024 2:39 PM CDT [facility] MCV 89.5 78.0 - 100.0 FL 05/22/2024 2:39 PM CDT [facility] MCH 30.6 27.0 - 31.0 PG 05/22/2024 2:39 PM CDT [facility] MCHC 34.2 33.0 - 36.0 G/DL 05/22/2024 2:39 PM CDT [facility] RDW 11.9 11.5 - 14.5 % 05/22/2024 2:39 PM CDT [facility] PLT 255 150 - 350 x10'3/uL 05/22/2024 2:39 PM CDT [facility] MPV 9.4 7.4 - 10.4 FL 05/22/2024 2:39 PM CDT [facility] CBC COMMENT NORMAL REFERENCE RANGE NOT ESTABLISHED FOR THE PROPORTIONAL LEUKOCYTE DIFFERENTIAL. 05/22/2024 2:39 PM CDT [facility] NEUTROPHILS % 47.8 % 05/22/2024 2:39 PM CDT [facility] LYMPHOCYTES % 42.0 % 05/22/2024 2:39 PM CDT [facility] MONOCYTES % 7.9 % 05/22/2024 2:39 PM CDT [facility] EOSINOPHILS % 1.4 % 05/22/2024 2:39 PM CDT [facility] BASOPHILS % 0.9 % 05/22/2024 2:39 PM CDT [facility] IMMATURE GRANS % 0.0 % 05/22/20 2:39 PM CDT [facility] NRBC % 0.0 % 05/22/2024 2:39 PM CDT [facility] ABS. NEUTROPHILS 2.65 1.60 - 8.30 x10'3/uL 05/22/2024 2:39 PM CDT [facility] ABS. LYMPHOCYTES 2.33 0.80 - 4.70 x10'3/uL 05/22/2024 2:39 PM CDT [facility] ABS. MONOCYTES 0.44 0.00 - 1.50 x10'3/uL 05/22/2024 2:39 PM CDT [facility] ABS. EOSINOPHILS 0.08 0.00 - 0.40 x10'3/uL 05/22/2024 2:39 PM CDT [facility] ABS. BASOPHILS 0.05 0.00 - 0.20 x10'3/uL 05/22/2024 2:39 PM CDT [facility] ABS. IMMATURE GRANULOCYTES 0.00 0.00 - 0.03 x10'3/uL 05/22/2024 2:39 PM CDT [facility] ABS. NUCLEATED RBC'S 0.00 0.00 - 0.01 x10'3/uL 05/22/2024 2:39 PM CDT [facility] 05/22/2024 2:11 PM CDT us Rayna Dior NP LABORATORY Final Result [facility] [address] [place] [address], * THYROXINE, FREE (FT4) (05/22/2024 2:11 PM CDT) FREE T4 0.93 0.76 - 1.46 NG/DL 05/22/2024 3:00 PM CDT [facility] 05/22/2024 2:11 PM CDT Rayna Dior NP LABORATORY Final Result Performing Organization Address [facility] Co de Phone Number [facility] [address] [place] [phone], * (ABNORMAL) THYROID STIM HORMONE TSH (05/22/2024 2:11 PM CDT) TSH 6.564(H) 0.358 - 3.740 uIU/ML 05/22/2024 3:00 PM CDT [facility] Comment: ASSAY PERFORMED BY CHEMILUMINESCENT IMMUNOASSAY METHODOLOGY USING [employer] REAGENT. PATIENT RESULTS DETERMINED BY ASSAYS FROM DIFFERENT MANUFACTURERS AND/OR BY DIFFERENT METHODS MAY NOT BE COMPARABLE. 05/22/2024 2:11 PM CDT Rayna Dior NP LABORATORY Final Result Performing Organization Address [facility] Co de Phone Number [facility] [place] [address], * (ABNORMAL) HEMOGLOBIN, GLYCATED (04/08/2018 12:41 PM CDT) HGB A1C 10.2(H) 4.2 - 6.3 % 04/09/2018 4:13 AM CDT [facility] ESTIMATED AVG GLUCOSE 246(H) 74 - 106 MG/DL 04/09/2018 4:13 AM CDT [facility] 04/08/2018 12:4 1 PM CDT [facility] Godfrey APRN LABORATORY Final R esult Performing Organization Address City/[facility]/ZIP Co de Phone Number [facility] [address] [place] [address], [place] [phone] * (ABNORMAL) LIPID PANEL (04/08/2018 12:13 PM CDT) CHOLESTEROL 206 MG/DL 04/08/2018 2:19 PM CDT [facility] Comment:HIGH: > OR = 240 TRIGLYCERIDES 385 MG/DL 04/08/2018 2:19 PM CDT [facility] Comment:200-499 HIGH HDL 43(L) >49 MG/DL 04/08/2018 2:19 PM CDT [facility] LDL (CALCULATED) 86 MG/DL 04/08/20 18 2:19 PM CDT [facility] Comment:<100 OPTIMAL VLDL CALCULATION 77 MG/DL 04/08/20 18 2:19 PM CDT [facility] Comment:REFERENCE RANGE NOT ESTABLISHED CHOL/HDL RATIO 4.8 04/08/2018 2:19 PM CDT [facility] Comment:REFERENCE RANGE NOT ESTABLISHED LDL/HDL 2.0 04/08/2018 2:19 PM CDT [facility] Comment:REFERENCE RANGE NOT ESTABLISHED NON HDL CHOLESTEROL 163 MG/DL 04/08/2018 2:19 PM CDT [facility] Comment:REFERENCE RANGE NOT ESTABLISHED 04/08/2018 12:1 3 PM CDT [facility] LABORATORY Final R esult [facility] [address] [place] [id number], [id number] * Cytopath Cerv/Vag Thin Layer (04/08/2018 6:52 AM CDT) PAP SMEAR [facility] ?[address] ?[place] [address] ? Department of Pathology ? Pathology Report ? CERVICAL/VAGINAL PAP SMEAR REPORT Name: KATHY ROBERTO ? Age: 5 1990 (Age: 27) ? Location: [id number] Sex: F ?Collected Date: 04/08/2018 Hospital #: [id number] ?Date Received: 04/11/2018 Date Reported: 04/12/2018 Provider: SABA JUDGE ?ANSON MICHAELSIKH INTERPRETATION CERVICAL/ENDOCERVIC AL, PAP TEST: ? SATISFACTORY FOR EVALUATION. ENDOCERVICAL/TRANSF ORMATION ZONE COMPONENT PRESENT. ? NEGATIVE FOR INTRAEPITHELIAL LESION OR MALIGNANCY. SHIFT IN BACTERIAL DENNIS SUGGESTIVE OF BACTERIAL VAGINOSIS. Electronically Signed Out Chet Durant M.D. Brooke [place], [place] ([facility]) CLINICAL HISTORY HEALTH MAINTENANCE ThinPrep Pap Test Only Date of Last Menstrual Period: ? 03/16/18 Menstrual Status: Regular SPECIMEN SUBMITTED CERVICAL/ENDOCERVIC AL ?Specimen Received:1 Thin Prep Vial, Image Assisted Pap (SMD) Please note: The Pap smear is not a diagnostic test. ??It is a screening test. ??Negative results on combined screening (Pap test and HPV-DNA) have a high negative predictive value (99.1-100 percent) for cervical cancer. ?? The pap test is not effective in detecting cervical adenocarcinoma. [employer] TO EPIC CONVERSION 04/08/2018 6:52 AM CDT 04/08/2018 6:52 AM CDT Narrative [employer] TO EPIC CONVERSION - 04/11/2018 6:52 AM CDT Result Communication: No patient communication needed at this time us Generic Conversion Md MIR PATHOLOGY/CYTOLOGY SIA ARMENTA Final Result [employer] TO EPIC CONVERSION from Last 3 Months or Most Recently Relevant to Health Maintenance Insurance [address] [place] [address] Advance Directives * Full Code (Latest Code Status on File) Date Activated Date Inactivated Comments 04/08/2018 12:45 PM 04/11/2018 7:42 PM Care Teams Brazer Electronic Relationship Specialty Start Date End Date Renee Hernandez MD [address] [place] [address] PCP - General FAMILY PRACTICE 03/19/21
--- OUTSIDE RECORDS SUMMARY | 2024-08-03 01:10 | XMS_ITS | Encounter Summary ---
Author Organization [facility] Address [facility] [place] [address] [place] [address] Care Team Providers Care Business Office Technician Name Role Phone Rodri Hernandez MD Primary Care Provider [phone] Reason for Referral * Imaging (Emergency) - Closed Specialty Diagnoses / Procedures Referred By Sanyaac marie Referred To Contact RADIOLOGY Diagnoses Acute abdominal pain Procedures CT ABD+PEL WO CON Rodri Hernandez MD [address] [place] [address] Phone: tel: fax: Referral ID Status Reason Start Date Expiration Date Visits Re quested Visits Authorized [id number] Closed 07/29/2021 07/29/2022 1 1 NESS LAW PROFESSOR Reason for Visit * Imaging (Emergency) - Closed Specialty Diagnoses / Procedures Referred By Alexis salazar Referred To Contact RADIOLOGY Diagnoses Acute abdominal pain Procedures CT ABD+PEL WO CON Rodri Hernandez MD [address] [place] [address] Phone: tel: fax: Referral ID Status Reason Start Date Expiration Date Visits Re quested Visits Authorized [id number] Closed 07/29/2021 07/29/2022 1 1 Encounter Details Date Type Department Care Team (Late st Contact Info) Description 07/29/2021 11:00 AM BUSINESS LAW PROFESSOR - 07/29/2021 11:24 AM BUSINESS LAW PROFESSOR Hospital Encounter [facility] [address] [place] [address] Rodri Hernandez MD [address] [place] [address] Discharge Disposition: Home or Self Care (Routine [...] COVID-19? No / Unsure 07/29/2021 11:22 AM BUSINESS LAW PROFESSOR documented as of this encounter Medications at [...] Priority Date/Time Associated Diagnosis Comments CT ABD+PEL WO CON STAT 07/29/2021 11: 34 AM BUSINESS LAW PROFESSOR Acute abdominal pain documented in this encounter Results * CT ABD+PEL WO CON (07/29/2021 11:34 AM BUSINESS LAW PROFESSOR) Anatomical Region Laterality Modality Abdomen Computed Tomogra phy 07/29/2021 11:5 2 AM BUSINESS LAW PROFESSOR Impressions 07/29/2021 12:07 PM BUSINESS LAW PROFESSOR IMPRESSION: 1. No definite acute CT findings within the abdomen or pelvis. 2. Mild arteriosclerotic calcification of the abdominal aorta greater than expected for age. 3. Slightly increased size of the probable hemangioma within the right hepatic lobe, better demonstrated on the prior CT abdomen and pelvis examination from 12/04/2019 Ordered By: RODRI HERNANDEZ Interpreted By: Adolfo Millan MD, 07/29/2021 11:52 AM Narrative 07/29/2021 12:07 PM BUSINESS LAW PROFESSOR Examination: CT ABD+PEL WO CON, 07/29/2021 11:53 AM. Technique: Computed tomographic images of the abdomen and pelvis were obtained without intravenous contrast. Additional coronal and sagittal reformatted images were generated at a separate workstation. A dose lowering technique was used for this procedure, which may include, but is not limited to, dose reduction technique, automated exposure control, the use of iterative reconstruction, and ALARA (As Low As Reasonably Achievable) / Image Gently techniques. Clinical history: Diffuse abdominal pain, nausea and vomiting for one month. Comparison: CT abdomen and pelvis 12/04/2019 Findings: The lung bases are clear. ABDOMEN: Focal fat about the falciform ligament within the left hepatic lobe. There is slightly increased prominence of the 2.4 x 1.8 centimeter hypoattenuating focus within the superior portion of the right hepatic lobe when compared with the prior CT abdomen and pelvis examination from 12/04/2019. Prior cholecystectomy. No bile duct dilation. No peripancreatic inflammatory change. The spleen is normal in size. There is no adrenal mass. There is no perinephric abnormality. There is no nephrolithiasis. There is no hydronephrosis. The caliber of the abdominal aorta is normal. Minimal arteriosclerotic calcification of the distal abdominal aorta. No retroperitoneal adenopathy. PELVIS: The appendix is normal. There is no bowel dilation or wall thickening. Hysterectomy. No pelvic mass or adenopathy. Urinary bladder is decompressed. Right abdominal insulin pump. No acute fracture nor destructive process of the visualized osseous structures. Procedure Note Adolfo Millan MD - 07/29/2021 Examination: CT ABD+PEL WO CON, 07/29/2021 11:53 AM. Technique: Computed tomographic images of the abdomen and pelvis wereobtained without intravenous contrast. Additional coronal and sagittalreformatted images were generated at a separate workstation. A doselowering technique was used for this procedure, which may include, but isnot limited to, dose reduction technique, automated exposure control, theuse of iterative reconstruction, and ALARA (As Low As ReasonablyAchievable) / Image Gently techniques. Clinical history: Diffuse abdominal pain, nausea and vomiting for onemonth. Comparison: CT abdomen and pelvis 12/04/2019 Findings: The lung bases are clear. ABDOMEN: Focal fat about the falciform ligament within the left hepaticlobe. There is slightly increased prominence of the 2.4 x 1.8 centimeterhypoattenuating focus within the superior portion of the right hepaticlobe when compared with the prior CT abdomen and pelvis examination from12/04/2019. Prior cholecystectomy. No bile duct dilation. No peripancreaticinflammatory change. The spleen is normal in size. There is no adrenalmass. There is no perinephric abnormality. There is no nephrolithiasis.There is no hydronephrosis. The caliber of the abdominal aorta is normal.Minimal arteriosclerotic calcification of the distal abdominal aorta. Noretroperitoneal adenopathy. PELVIS: The appendix is normal. There is no bowel dilation or wallthickening. Hysterectomy. No pelvic mass or adenopathy. Urinary bladder isdecompressed. Right abdominal insulin pump. No acute fracture nordestructive process of the visualized osseous structures. IMPRESSION: 1. No definite acute CT findings within the abdomen or pelvis. 2. Mild arteriosclerotic calcification of the abdominal aorta greater thanexpected for age. 3. Slightly increased size of the probable hemangioma within the righthepatic lobe, better demonstrated on the prior CT abdomen and pelvisexamination from 12/04/2019 Ordered By: RODRI HERNANDEZ Interpreted By: Adolfo Millan MD, 07/29/2021 11:52 AM us Rodri Hernandez MD CT Final Result documented in this encounter Visit Diagnoses Diagnosis Acute abdominal pain Abdominal pain, unspecified site documented in this encounter Care Teams Business Office Technician Relationship Specialty Start Date End Date Rodri Hernandez MD [address] [place] [address] PCP - General FAMILY PRACTICE 03/19/21 documented as of this encounter
--- OUTSIDE RECORDS SUMMARY | 2024-08-03 01:10 | XMS_ITS | Encounter Summary ---
Author Organization [place] Address [facility] [place] [address] [place] [address] Care Team Providers Care Timber Trimmer Name Role Phone Renee Hernandez MD Primary Care Provider [phone] Encounter Details Date Type Department Care Team (Late st Contact Info) Description 05/22/2024 2:00 PM CDT - 05/22/2024 2:01 PM CDT Hospital Encounter [facility] [address] [place] [address] Rayna Dior NP [address] [place] [address] Discharge Disposition: Home or Self Care (Routine [...] 05/22/2024 2:40 PM CDT Upper respiratory virus documented in this encounter Results * XR CHEST PA+LAT (05/22/2024 2:40 PM CDT) Anatomical Region Laterality Modality Chest Radiographic Angela ging 05/22/2024 2:46 PM CDT Impressions 05/22/2024 2:48 PM CDT IMPRESSION: No active cardiopulmonary disease. Ordered By: RAYNA DIOR Interpreted By: Rodger Andrade MD, 05/22/2024 2:46 PM Narrative 05/22/2024 2:[address]T [address] [place] [address] 05/22/2024, 1423 hours. HISTORY: Upper respiratory virus. [...] Procedure Note Rodger Andrade MD - 05/22/[address] [place] [address] 05/22/2024, 1423 hours. HISTORY: Upper respiratory virus. [...] Andrade MD, 05/22/2024 2:46 PM Rayna Dior MILITARY COMMUNICATIONS SPECIALIST GENERAL IMAGING Final Result documented in this encounter Visit Diagnoses Diagnosis Upper respiratory virus Acute upper respiratory infections of unspecified site documented in this encounter Care Teams Timber Trimmer Relationship Specialty Start Date End Date Renee Hernandez MD [address] [place] [address] PCP - General FAMILY PRACTICE 03/19/21 documented as of this encounter
--- OUTSIDE RECORDS SUMMARY | 2024-08-03 01:10 | XMS_ITS | Encounter Summary ---
Author Organization [facility] Address [facility]6 [facility] [place] [address] [place] [address] Care Team Providers Care Sheep Farm Worker Name Role Phone Renee Hernandez MD Primary Care Provider [phone] Encounter Details Date Type Department Care Team (Late st Contact Info) Description 05/22/2024 2:02 PM CDT - 05/22/2024 11:59 PM CDT Hospital Encounter [facility] [address] [place] [address] Rayna Irving NP [address] [place] [address] Discharge Disposition: Home or Self [...] Procedure Name Priority Date/Time Associated Diagnosis Comments RESPIRATORY PCR PANEL 2 Routine 05/22/2024 2:11 PM CDT Acute upper respiratory infection COMPREHENSIVE METABOLIC PANEL Routine 05/22/2024 2:11 PM CDT Hypothyroidism Hematemesis Acute upper respiratory infection CBC W/DIFF AUTOMATED Routine 05/22/2024 2:11 PM CDT Hypothyroidism Hematemesis Acute upper respiratory infection THYROXINE, FREE (FT4) Routine 05/22/2024 2:11 PM CDT Hypothyroidism Hematemesis Acute upper respiratory infection THYROID STIM HORMONE TSH Routine 05/22/2024 2:11 PM CDT Hypothyroidism Hematemesis Acute upper respiratory infection documented in this encounter Results * RESPIRATORY PCR PANEL (W COVID) (05/22/2024 2:11 PM CDT) ADENOVIRUS PCR (RESP) NOT DETECTED NOT DETECTED 05/23/2024 2:08 PM CDT [facility] CORONAVIRUS 229E PCR (RESP) NOT DETECTED NOT DETECTED 05/23/2024 2:08 PM CDT [facility] CORONAVIRUS HKU1 PCR (RESP) NOT DETECTED NOT DETECTED 05/23/2024 2:08 PM CDT [facility] CORONAVIRUS NL63 PCR (RESP) NOT DETECTED NOT DETECTED 05/23/2024 2:08 PM CDT [facility] CORONAVIRUS OC43 PCR (RESP) NOT DETECTED NOT DETECTED 05/23/2024 2:08 PM CDT [facility] METAPNEUMOVIRUS PCR (RESP) NOT DETECTED NOT DETECTED 05/23/2024 2:08 PM CDT [facility] RHINOVIRUS/ENTEROV IRUS PCR (RESP) NOT DETECTED NOT DETECTED 05/23/2024 2:08 PM CDT [facility] INFLUENZA A PCR (RESP) NOT DETECTED NOT DETECTED 05/23/2024 2:08 PM CDT [facility] INFLUENZA B PCR (RESP) NOT DETECTED NOT DETECTED 05/23/2024 2:08 PM CDT [facility] PARAINFLUENZA 1 PCR (RESP) NOT DETECTED NOT DETECTED 05/23/2024 2:08 PM CDT [facility] PARAINFLUENZA 2 PCR (RESP) NOT DETECTED NOT DETECTED 05/23/2024 2:08 PM CDT [facility] PARAINFLUENZA 3 PCR (RESP) NOT DETECTED NOT DETECTED 05/23/2024 2:08 PM CDT [facility] PARAINFLUENZA 4 PCR (RESP) NOT DETECTED NOT DETECTED 05/23/2024 2:08 PM CDT [facility] RSV PCR (RESP) NOT DETECTED NOT DETECTED 05/23/2024 2:08 PM CDT [facility] B PARAPERTUSIS PCR (RESP) NOT DETECTED NOT DETECTED 05/23/2024 2:08 PM CDT [facility] BORDETELLA PERTUSSIS PCR (RESP) NOT DETECTED NOT DETECTED 05/23/2024 2:08 PM CDT [facility] CHLAMYDOPHILA PNEUMONIAE PCR (RESP) NOT DETECTED NOT DETECTED 05/23/2024 2:08 PM CDT [facility] MYCOPLASMA PNEUMONIAE PCR (RESP) NOT DETECTED NOT DETECTED 05/23/2024 2:08 PM CDT [facility] CORONAVIRUS SARS COV 2 PCR (RESP) NOT DETECTED NOT DETECTED 05/23/2024 2:08 PM CDT [facility] NASOPHARYNGEAL SWAB / Unknown 05/22/2024 2:11 PM CDT us Rayna Irving NP MICROBIOLOGY - GENERAL ORDERABLE S Final Result [facility] [address] [place] [address], [place] [phone] * CBC W/DIFF AUTOMATED (05/22/2024 2:11 PM CDT) WBC 5.55 4.00 - 10.80 x10'3/uL 05/22/2024 2:39 PM CDT [facility] RBC 4.38 4.10 - 5.40 x10'6/uL 05/22/2024 2:39 PM CDT [facility] HGB 13.4 12.0 - 16.0 G/DL 05/22/2024 2:39 PM CDT [facility] HCT 39.2 36.0 - 47.0 % 05/22/2024 2:39 PM CDT [facility] MCV 89.5 78.0 - 100.0 FL 05/22/2024 2:39 PM CDT [facility] MCH 30.6 27.0 - 31.0 PG 05/22/2024 2:39 PM CDT [facility] MCHC 34.2 33.0 - 36.0 G/DL 05/22/2024 2:39 PM CDT [facility] RDW 11.9 11.5 - 14.5 % 05/22/2024 2:39 PM CDT [facility] PLT 255 150 - 350 x10'3/uL 05/22/2024 2:39 PM CDT [facility] MPV 9.4 7.4 - 10.4 FL 05/22/2024 2:39 PM CDT [facility] CBC COMMENT NORMAL REFERENCE RANGE NOT ESTABLISHED FOR THE PROPORTIONAL LEUKOCYTE DIFFERENTIAL. 05/22/2024 2:39 PM CDT [facility] NEUTROPHILS % 47.8 % 05/22/2024 2:39 PM CDT [facility] LYMPHOCYTES % 42.0 % 05/22/2024 2:39 PM CDT [facility] MONOCYTES % 7.9 % 05/22/2024 2:39 PM CDT [facility] EOSINOPHILS % 1.4 % 05/22/2024 2:39 PM CDT [facility] BASOPHILS % 0.9 % 05/22/2024 2:39 PM CDT [facility] IMMATURE GRANS % 0.0 % 05/22/20 2:39 PM CDT [facility] NRBC % 0.0 % 05/22/2024 2:39 PM CDT [facility] ABS. NEUTROPHILS 2.65 1.60 - 8.30 x10'3/uL 05/22/2024 2:39 PM CDT [facility] ABS. LYMPHOCYTES 2.33 0.80 - 4.70 x10'3/uL 05/22/2024 2:39 PM CDT [facility] ABS. MONOCYTES 0.44 0.00 - 1.50 x10'3/uL 05/22/2024 2:39 PM CDT [facility] ABS. EOSINOPHILS 0.08 0.00 - 0.40 x10'3/uL 05/22/2024 2:39 PM CDT [facility] ABS. BASOPHILS 0.05 0.00 - 0.20 x10'3/uL 05/22/2024 2:39 PM CDT [facility] ABS. IMMATURE GRANULOCYTES 0.00 0.00 - 0.03 x10'3/uL 05/22/2024 2:39 PM CDT [facility] ABS. NUCLEATED RBC'S 0.00 0.00 - 0.01 x10'3/uL 05/22/2024 2:39 PM CDT [facility] 05/22/2024 2:11 PM CDT us Rayna Irving NP LABORATORY Final Result [facility] [address] [place], [place] [address] [phone] * (ABNORMAL) COMPREHENSIVE METABOLIC PANEL (05/22/2024 2:11 PM CDT) SODIUM S/P/B 136 136 - 145 MMOL/L 05/22/2024 3:00 PM CDT [facility] POTASSIUM S/P/B 5.2(H) 3.5 - 5.1 MMOL/L 05/22/2024 3:00 PM CDT [facility] CHLORIDE S/P/B 98 98 - 107 MMOL/L 05/22/2024 3:00 PM CDT [facility] CO2 30.3 21.0 - 32.0 MMOL/L 05/22/2024 3:00 PM CDT [facility] GLUCOSE 174(H) 70 - 99 MG/DL 05/22/2024 3:00 PM CDT [facility] Comment: FASTING GLUCOSE 100 TO 125 MG/DL IS CONSISTENT WITH IMPAIRED FASTING GLUCOSE. FASTING GLUCOSE >125 MG/DL IS CONSISTENT WITH DIABETES. RANDOM GLUCOSE >200 MG/DL WITH HYPERGLYCEMIC SYMPTOMS IS CONSISTENT WITH DIABETES. PER ADA GUIDELINES BUN 21 6 - 24 MG/DL 05/22/2024 3:00 PM CDT [facility] CREATININE S/P/B 0.98 0.55 - 1.02 MG/DL 05/22/2024 3:00 PM CDT [facility] CALCIUM S/P/B 9.5 8.4 - 10.5 MG/DL 05/22/2024 3:00 PM CDT [facility] BILIRUBIN TOTAL S/P/B 0.5 0.2 - 1.0 MG/DL 05/22/2024 3:00 PM CDT [facility] Comment: THIS ASSAY IS NOT RECOMMENDED FOR PATIENTS UNDERGOING TREATMENT WITH ELTROMBOPAG DUE TO THE POTENTIAL FOR FALSELY ELEVATED RESULTS. ALKALINE PHOSPHATASE S/P/B 120(H) 37 - 98 U/L 05/22/2024 3:00 PM CDT [facility] AST 26 15 - 37 U/L 05/22/2024 3:00 PM CDT [facility] ALT 44 14 - 59 U/L 05/22/2024 3:00 PM CDT [facility] TOTAL PROTEIN S/P/B 8.2 6.4 - 8.2 G/DL 05/22/2024 3:00 PM CDT [facility] ALBUMIN S/P/B 4.0 3.4 - 5.0 G/DL 05/22/2024 3:00 PM CDT [facility] ANION GAP 7.7 5.0 - 15.0 MMOL/L 05/22/2024 3:00 PM CDT [facility] OSMOLALITY (CALC) 289 MOSM/KG 024 3:00 PM CDT [facility] Comment:REFERENCE RANGE NOT ESTABLISHED GFR ESTIMATE 77(L) >89 ML/MIN/1. 73 M2 05/22/2024 3:00 PM CDT [facility] GFR NOTES GFR REFERENCE S: 05/22/2024 3:00 PM CDT [facility] Comment: THE ESTIMATED GFR IS CALCULATED [...] m2 05/22/2024 2:11 PM CDT us Rayna Irving NP LABORATORY Final Result [facility] [address] [place] [address], * THYROXINE, FREE (FT4) (05/22/2024 2:11 PM CDT) FREE T4 0.93 0.76 - 1.46 NG/DL 05/22/2024 3:00 PM CDT [facility] 05/22/2024 2:11 PM CDT Rayna Irving NP LABORATORY Final Result Performing Organization Address [facility] Co de Phone Number [facility] [address] [place] [address], * (ABNORMAL) THYROID STIM HORMONE TSH (05/22/2024 2:11 PM CDT) TSH 6.564(H) 0.358 - 3.740 uIU/ML 05/22/2024 3:00 PM CDT [facility] Comment: ASSAY PERFORMED BY CHEMILUMINESCENT IMMUNOASSAY METHODOLOGY USING SIEMENS DIMENSION REAGENT. PATIENT RESULTS DETERMINED BY ASSAYS FROM DIFFERENT MANUFACTURERS AND/OR BY DIFFERENT METHODS MAY NOT BE COMPARABLE. 05/22/2024 2:11 PM CDT Rayna Irving NP LABORATORY Final Result Performing Organization Address [facility] de Phone Number [facility] [address] [place] [id number], documented in this encounter Visit Diagnoses Diagnosis Hypothyroidism Unspecified hypothyroidism Hematemesis Acute upper respiratory infection Acute upper respiratory infections of unspecified site documented in this encounter Additional Health Concerns Infection Onset Date Last Indicated Resolved Time COVID-19 Rule Out 05/22/2024 05/22/2024 05/23/2024 2:08 PM CDT documented as of this encounter Care Teams Sheep Farm Worker Relationship Specialty Start Date End Date Renee Hernandez MD [address] [place] [address] PCP - General FAMILY PRACTICE 03/19/21 documented as of this encounter
--- OUTSIDE RECORDS SUMMARY | 2024-08-03 01:10 | XMS_ITS | Encounter Summary ---
Author Organization [facility] Address [address] [place] [address]. [place] [address] [place] [address] Care Team Providers Care Project Structural Engineer Name Role Phone Renee Hernandez MD Primary Care Provider [phone] Encounter Details Date Type Department Care Team (Latest Contact Info) Description 03/19/2021 Travel Social History Tobacco Use Types Packs/Day [...] have Coronavirus / COVID-19? No / Unsure 03/19/2021 12:15 PM CDT documented as of this encounter Plan of Treatment Not on file documented as of this encounter Visit Diagnoses Not on filedocumented in this encounter Additional Health Concerns Infection Onset Date Last Indicated Resolved Time COVID-19 Rule Out 03/19/2021 03/19/2021 03/19/2021 1:12 PM CDT documented as of this encounter Care Teams Project Structural Engineer Relationship Specialty Start Date End Date Renee Hernandez MD [address] [place] [address] [place] [address] PCP - General FAMILY PRACTICE 03/19/21 documented as of this encounter
--- OUTSIDE RECORDS SUMMARY | 2024-08-03 01:10 | XMS_ITS | Encounter Summary ---
Author Organization [facility] Address [address] [place] [address]. [place] [address] [place] [address] Care Team Providers Care Crm Solution Architect Name Role Phone Isaias Grier MD Primary Care Provider Reason for Visit * Reason Comments Vomiting Encounter Details Date Type Department Care Team ([facility] st Contact Info) Description 03/01/2020 10:32 AM CDT - 03/01/2020 1:45 PM CDT Emergency [facility] [place] [address] Harvinder Stallings Jr., MD [address] [place] [address] Vomiting Discharge Disposition: Home or Self Care (Routine [...] have Coronavirus / COVID-19? No / Unsure 03/01/2020 10:33 AM CDT documented as of this encounter Last Filed Vital Signs Vital Sign Reading Time Taken Comments Blood Pressure 112/72 03/01/2020 1:45 PM CDT Pulse 91 03/01/2020 10:32 AM CDT Temperature 36.5 ??C (97.7 ??F) 03/01/2020 10:41 AM C DT Respiratory Rate 16 03/01/2020 1:45 PM CDT Oxygen Saturation 98% 03/01/2020 1:45 PM CDT Inhaled Oxygen Concentration - - Weight 51.3 kg (113 lb) 03/01/2020 10:32 AM CDT Height 165.1 cm (5' 5 ) 03/01/2020 10:32 AM CDT Body Mass Index 18.8 03/01/2020 10:32 AM CDT documented in this encounter Discharge Instructions * Discharge Instructions* Harvinder Stallings Jr., MD - 03/01/2020 1:40 PM CDT Recommend you self quarantine at home and to you have received your COVID testing results. Once received please contact your primary care physician's office for further instructions * Attachments The following attachments cannot be sent through Care Everywhere. * Coronavirus Disease 2019 (COVID-19) Discharge Instructions (Frisian) documented in this encounter Medications at Time [...] 3 05/22/2019 documented as of this encounter ED Notes * Christelle Da Silva RN - 03/01/2020 1:45 PM CDT 03/03/2020 0745 Steph calls requesting results of Coronavirus test. Job Analysis Manager advises that test is negative. * Millie Cintron RN - 03/01/2020 1:15 PM CDT Pt inquires about plan. Advised pt dr janna almazan at all results and speak with her. Pt states she feels like crap and doesn't want to go home . * Millie Cintron RN - 03/01/2020 12:45 PM CDT Pt asks xray for more meds for nausea. no vomiting while in er. Dr. Stallings advised. * Harvinder Stallings Jr., MD - 03/01/2020 11:02 AM CDT eMERGENCY dEPARTMENT eNCOUnter CHIEF COMPLAINT Chief Complaint Patient presents with ??? Vomiting HPI HPI Steph Camacho is a 29-year-old female who presents to the ER with a complaint of cough, dyspnea,runny nose, and general malaise for 1 week. Her cough is productive of discolored sputum. she denies any fevers at home. But her symptoms have progressed and she developed nausea and vomiting this morning. She is a juvenile diabetic. She denies any chest pain, abdominal pain or dysuria, with the exception of pain on coughing. ALLERGIES Allergies Allergen Reactions ??? Peanut-Containing Drug Products Anaphylaxis ??? Latex Hives CURRENT MEDICATIONS Current Outpatient Medications Medication Sig ??? ondansetron 4 MG disintegrating tablet Take 1 tablet (4 mg total) by mouth every 8 (eight) hours as needed for Nausea. ??? levothyroxine 25 MCG tablet Take 40 mcg by mouth daily. ??? NON FORMULARY Indications: avalog insulin via continuous pump ??? pantoprazole EC 40 MG tablet Take 40 mg by mouth daily. PAST MEDICAL HISTORY Past Medical History: Diagnosis [...] file Gets together: Not on file Attends druze service: Not on file Active member of [...] Mother REVIEW OF SYSTEMS Review of Systems No change in bowel habits All other ROS negative unless noted above in HPI. PHYSICAL EXAM Physical Exam Filed Vitals: 03/01/20 1032 03/01/20 1041 BP: 100/76 Pulse: 91 Resp: 20 Temp: 97.7 ??F (36.5 ??C) SpO2: 97% Weight: 51.3 kg (113 lb) Height: 5' 5 (1.651 m) General; patient appears mildly ill H EENT; unremarkable Neck supple; Heart; regular Lungs; clear Abdomen; soft nontender Extremities; unremarkable Neuro; nonfocal EKG RADIOLOGY XR CHEST PORTABLE Final Result by User, [id number] (03/01 131) EXAMINATION: Chest radiograph EXAM DATE: 03/01/2020 12:45 PM REASON FOR EXAM: cough COMPARISON: 11/26/2019 TECHNIQUE: Single view FINDINGS: Heart size normal. Proximal airways unremarkable. No pneumothorax or pleural effusion. IMPRESSION: 1. No acute findings. Interpreted By: Star Castillo MD, 03/01/2020 1:17 PM LABS Results for orders placed or performed during the hospital encounter of 03/01/20 CBC W/DIFF AUTOMATED Result Value Ref Range WBC 6.7 4.5 - 10.8 x10'3/uL RBC 4.07 (L) 4.10 - 5.40 x10'6/uL HGB 12.4 12.0 - 16.0 G/DL HCT 36.9 36.0 - 47.0 % MCV 90.7 78.0 - 100.0 FL MCH 30.5 27.0 - 31.0 PG MCHC 33.6 33.0 - 36.0 G/DL RDW 12.2 11.5 - 14.5 % PLT 214 150 - 350 x10'3/uL MPV 10.1 7.4 - 10.4 FL Differential Comment NORMAL REFERENCE RANGE NOT ESTABLISHED FOR THE PROPORTIONAL LEUKOCYTE DIFFERENTIAL. SEG NEUTROPHILS 71.7 % LYMPHOCYTES 20.8 % MONOCYTES 6.1 % EOSINOPHILS 0.9 % BASOPHILS 0.4 % IMMATURE GRANS 0.1 % NRBC 0.0 % ABS. NEUTROPHILS 4.83 1.60 - 8.30 x10'3/uL ABS. LYMPHOCYTES 1.40 0.80 - 4.70 x10'3/uL ABS. MONOCYTES 0.41 0.00 - 1.50 x10'3/uL ABS. EOSINOPHILS 0.06 0.00 - 0.40 x10'3/uL ABS. BASOPHILS 0.03 0.00 - 0.20 x10'3/uL ABS. IMMATURE GRANULOCYTES 0.01 0.00 - 0.03 x10'3/uL ABS. NUCLEATED RBC'S 0.00 0.00 x10'3/uL COMPREHENSIVE METABOLIC PANEL Result Value Ref Range SODIUM 137 136 - 145 MMOL/L POTASSIUM 4.2 3.5 - 5.1 MMOL/L CHLORIDE S/P/B 101 98 - 107 MMOL/L CO2 26.4 21.0 - 32.0 MMOL/L GLUCOSE 175 (H) 70 - 99 MG/DL BUN 12 6 - 24 MG/DL CREATININE S/P/B 0.75 0.55 - 1.02 MG/DL CALCIUM 8.7 8.4 - 10.5 MG/DL BILIRUBIN TOTAL S/P/B 0.3 0.2 - 1.0 MG/DL ALKALINE PHOSPHATASE S/P/B 84 37 - 98 U/L AST 14 (L) 15 - 37 U/L ALT 29 14 - 59 U/L TOTAL PROTEIN S/P/B 7.4 6.4 - 8.2 G/DL ALBUMIN S/P/B 3.2 (L) 3.4 - 5.0 G/DL ANION GAP 9.6 5.0 - 15.0 MMOL/L OSMOLALITY (CALC) 288 MOSM/KG eGFR Non-Afr. Amer. >90 >89 ML/MIN/1.73 M2 eGFR Afr. Amer. >90 >89 ML/MIN/1.73 M2 GFR NOTES GFR REFERENCES: URINALYSIS Result Value Ref Range COLOR (U) YELLOW TRANSPARENCY SLIGHTLY CLOUDY Specific [place] (U) 1.020 1.000 - 1.025 U PH 7.5 5.0 - 8.0 LEUKOCYTE ESTERASE NEGATIVE NEGATIVE NITRITES NEGATIVE NEGATIVE PROTEIN (U) NEGATIVE NEGATIVE URINE GLUCOSE TRACE (A) NEGATIVE U KETONES TRACE (A) NEGATIVE UROBILINOGEN 0.2 <1.0 EU/DL BILIRUBIN (U) NEGATIVE NEGATIVE BLOOD NEGATIVE NEGATIVE WBC/HPF 0-5 0 - 5 /HPF EPI/HPF MODERATE /LPF BACTERIA (URINE) TRACE /HPF TEST URINE Result Value Ref Range PREG TEST NEGATIVE Specific [place] (U) 1.020 ED MEDICATIONS Medications ondansetron (ZOFRAN) 4 MG/2ML injection (has no administration in time range) ondansetron (ZOFRAN) injection 4 mg (4 mg Intravenous Given 03/01/20 1136) sodium chloride 0.9% bolus infusion SOLN 1,000 mL (0 mLs Intravenous Infusion Stop Time 03/01/20 1230) metoclopramide (REGLAN) injection 10 mg (10 mg Intravenous Given 03/01/20 1316) PROCEDURES Procedures CONSULTS: ED COURSE & MEDICAL DECISION MAKING MDM Upper respiratory infection, pneumonia, viral syndrome FINAL IMPRESSION SNOMED CT(R) 1. Viral syndrome VIRAL DISEASE 2. Person under investigation for COVID-19 SUSPECTED COVID-19 Isaias Grier MD [address] [place] [phone] In 1 week New Prescriptions ONDANSETRON 4 MG DISINTEGRATING TABLET Take 1 tablet (4 mg total) by mouth every 8 (eight) hours as needed for Nausea. Harvinder Stallings Jr., MD 03/01/20 1340 * Veronica Ferreira RN - 03/01/2020 10:35 AM CDT PT ARRIVES EMS FROM HOME. PT C/O RUNNY NOSE AND COUGH THAT STARTED LAST . PT STATES SX HAVEPROGRESSED AND STATES NOW SHE FEELS WORSE. PT C/O WEAKNESS AND VOMITING. PT STATES VOMITING STARTEDTODAY. PT STATES COUGH IS WORSE AND NOW SHE IS COUGHING UP NASTY STUFF . PT ALERT ORIENTED. documented in this encounter Plan of Treatment Not on file documented as of this encounter Procedures Procedure Name Priority Date/Time Associated Diagnosis Comments XR CHEST PORTABLE STAT 03/01/2020 1:0 8 PM CDT HC URINALYSIS AUTO W/MICRO STAT 03/01/2020 12:35 PM CDT TEST URINE STAT 03/01/2020 12:35 PM CDT CORONAVIRUS (COVID 19) Routine 0 11:28 AM CDT COMPREHENSIVE METABOLIC PANEL STAT 03/01/2020 11:25 AM CDT CBC W/DIFF AUTOMATED STAT 03/01/2020 11:25 AM CDT documented in this encounter Results * XR CHEST PORTABLE (03/01/2020 1:08 PM CDT) Anatomical Region Laterality Modality Chest Radiographic Angela ging 03/01/2020 1:17 PM CDT Impressions 03/01/2020 1:18 PM CDT IMPRESSION: 1. ?? No acute findings. Interpreted By: Star Castillo MD, 03/01/2020 1:17 PM Narrative 03/01/2020 1:18 PM CDT EXAMINATION: Chest radiograph EXAM DATE: 03/01/2020 12:45 PM REASON FOR EXAM: ??cough ?? COMPARISON: 11/26/2019 TECHNIQUE: Single view FINDINGS: Heart size normal. ??Proximal airways unremarkable. ??No pneumothorax or pleural effusion. Procedure Note Star Castillo MD - 03/01/2020 EXAMINATION: Chest radiograph EXAM DATE: 03/01/2020 12:45 PM REASON FOR EXAM: cough COMPARISON: 11/26/2019 TECHNIQUE: Single view FINDINGS: Heart size normal. Proximal airways unremarkable. No pneumothorax orpleural effusion. IMPRESSION: 1. No acute findings. Interpreted By: Star Castillo MD, 03/01/2020 1:17 PM Harvinder Stallings Jr., MD GENERAL IMAGING Final Re sult * TEST URINE (03/01/2020 12:35 PM CDT) Pathologist [facility] PREG TEST NEGATIVE 03/01/2020 12:[address] [facility] SPECIFIC GRAVITY (U) 1.020 03/01/2020 12:[address] [facility] URINE SPECIMEN FROM URETHRA / Unknown 03/01/2020 12:35 PM CDT Harvinder Stallings Jr., MD URINE ORDERABLES Final R esult [facility] [address] [place] [address], * (ABNORMAL) URINALYSIS (03/01/2020 12:35 PM CDT) Pathologist [facility] COLOR (U) YELLOW 03/01/2020 12:[address] [facility] TRANSPARENCY SLIGHTLY CLOUDY 03/01/2020 12:[address] [facility] SPECIFIC GRAVITY (U) 1.020 1.000 - 1.025 03/01/2020 12:[address] [facility] U PH 7.5 5.0 - 8.0 03/01/2020 12:[address] [facility] LEUKOCYTES (U) NEGATIVE NEGATIVE 03/01/2020 12:[address] [facility] NITRITES NEGATIVE NEGATIVE 03/01/2020 12:[address] [facility] PROTEIN (U) NEGATIVE NEGATIVE 03/01/2020 12:[address] [facility] URINE GLUCOSE TRACE(A) NEGATIVE 03/01/2020 12:[address] [facility] KETONES MG/DL (U) TRACE(A) NEGATIVE 03/01/2020 12:[address] [facility] UROBILINOGEN 0.2 <1.0 EU/DL 03/01/2020 12:[address] [facility] BILIRUBIN (U) NEGATIVE NEGATIVE 03/01/2020 12:[address] [facility] BLOOD (U) NEGATIVE NEGATIVE 03/01/2020 12:[address] [facility] WBC/HPF 0-5 0 - 5 /HPF 03/01/2020 12:[address] [facility] EPI/HPF MODERATE /LPF 03/01/2020 12:[address] [facility] BACTERIA (U) TRACE /HPF 03/01/2020 12:[address] [facility] URINE SPECIMEN OBTAINED BY CLEAN CATCH PROCEDURE / Unknown 03/01/2020 12:35 PM CDT us Harvinder Stallings Jr., MD URINE ORDERABLES Final R esult [facility] [address] [place] [address], * CORONAVIRUS (COVID 19) (03/01/2020 11:28 AM CDT) CORONAVIRUS SARS COV 2 PCR (RESP) NOT DETECTED NOT DETECTED 03/02/2020 10:[address] [facility] Comment:REFER TO [facility] REPORT 03/01/2020 11:2 8 AM CDT us Harvinder Stallings Jr., MD MICROBIOLOGY - GENERAL O RDERABLES Final Result [facility] [address] [place] [address], * (ABNORMAL) COMPREHENSIVE METABOLIC PANEL (03/01/2020 11:25 AM CDT) SODIUM S/P/B 137 136 - 145 MMOL/L 03/01/2020 11:[address] [facility] POTASSIUM S/P/B 4.2 3.5 - 5.1 MMOL/L 03/01/2020 11:[address] [facility] CHLORIDE S/P/B 101 98 - 107 MMOL/L 03/01/2020 11:[address] [facility] CO2 26.4 21.0 - 32.0 MMOL/L 03/01/2020 11:[address] [facility] GLUCOSE 175(H) 70 - 99 MG/DL 03/01/2020 11:[address] [facility] Comment: FASTING GLUCOSE 100 TO 125 MG/DL IS CONSISTENT WITH IMPAIRED FASTING GLUCOSE. FASTING GLUCOSE >125 MG/DL IS CONSISTENT WITH DIABETES. RANDOM GLUCOSE >200 MG/DL WITH HYPERGLYCEMIC SYMPTOMS IS CONSISTENT WITH DIABETES. PER ADA GUIDELINES BUN 12 6 - 24 MG/DL 03/01/2020 11:[address] [facility] CREATININE S/P/B 0.75 0.55 - 1.02 MG/DL 03/01/2020 11:[address] [facility] CALCIUM S/P/B 8.7 8.4 - 10.5 MG/DL 03/01/2020 11:52 AM [facility] BILIRUBIN TOTAL S/P/B 0.3 0.2 - 1.0 MG/DL 03/01/2020 11:52 AM [facility] Comment: THIS ASSAY IS NOT RECOMMENDED FOR PATIENTS UNDERGOING TREATMENT WITH ELTROMBOPAG DUE TO THE POTENTIAL FOR FALSELY ELEVATED RESULTS. ALKALINE PHOSPHATASE S/P/B 84 37 - 98 U/L 03/01/2020 11:52 AM [facility] AST 14(L) 15 - 37 U/L 03/01/2020 11:52 AM [facility] ALT 29 14 - 59 U/L 03/01/2020 11:52 AM [facility] TOTAL PROTEIN S/P/B 7.4 6.4 - 8.2 G/DL 03/01/2020 11:52 AM [facility] ALBUMIN S/P/B 3.2(L) 3.4 - 5.0 G/DL 03/01/2020 11:52 AM [facility] ANION GAP 9.6 5.0 - 15.0 MMOL/L 03/01/2020 11:52 AM [facility] OSMOLALITY (CALC) 288 MOSM/KG 020 11:52 AM [facility] Comment:REFERENCE RANGE NOT ESTABLISHED EGFR NON-AFR. AMER. >90 >89 ML/MIN/1. 73 M2 03/01/2020 11:52 AM [facility] EGFR AFR. AMER. >90 >89 ML/MIN/1. 73 M2 03/01/2020 11:52 AM [facility] GFR NOTES GFR REFERENCE S: 03/01/2020 11:52 AM [facility] Comment: THE ESTIMATED GFR IS [...] ml/min/1.73 m2 G5,KIDNEY FAILURE: <15 ml/min/1.73 m2 03/01/2020 11:2 5 AM CDT us Harvinder Stallings Jr., MD LABORATORY Final Re sult [facility] [address] [place] [address], * (ABNORMAL) CBC W/DIFF AUTOMATED (03/01/2020 11:25 AM CDT) WBC 6.7 4.5 - 10.8 x10'3/uL 03/01/2020 11:[address] [facility] RBC 4.07(L) 4.10 - 5.40 x10'6/uL 03/01/2020 11:[address] [facility] HGB 12.4 12.0 - 16.0 G/DL 03/01/2020 11:[address] [facility] HCT 36.9 36.0 - 47.0 % 03/01/2020 11:[address] [facility] MCV 90.7 78.0 - 100.0 FL 03/01/2020 11:[address] [facility] MCH 30.5 27.0 - 31.0 PG 03/01/2020 11:[address] [facility] MCHC 33.6 33.0 - 36.0 G/DL 03/01/2020 11:[address] [facility] RDW 12.2 11.5 - 14.5 % 03/01/2020 11:[address] [facility] PLT 214 150 - 350 x10'3/uL 03/01/2020 11:[address] [facility] MPV 10.1 7.4 - 10.4 FL 03/01/2020 11:[address] [facility] DIFFERENTIAL COMMENT NORMAL REFERENCE RANGE NOT ESTABLISHED FOR THE PROPORTIONAL LEUKOCYTE DIFFERENTIAL. 03/01/2020 11:[address] [facility] SEG NEUTROPHILS 71.7 % 0 11:[address] [facility] LYMPHOCYTES 20.8 % 03/01/2020 11:[address] [facility] MONOCYTES 6.1 % 03/01/2020 11:[address] [facility] EOSINOPHILS 0.9 % 03/01/2020 11:[address] [facility] BASOPHILS 0.4 % 03/01/2020 11:[address] [facility] IMMATURE GRANS % 0.1 % 03/01/20 20 11:[address] [facility] NRBC 0.0 % 03/01/2020 11:[address] [facility] ABS. NEUTROPHILS 4.83 1.60 - 8.30 x10'3/uL 03/01/2020 11:[address] [facility] ABS. LYMPHOCYTES 1.40 0.80 - 4.70 x10'3/uL 03/01/2020 11:[address] [facility] ABS. MONOCYTES 0.41 0.00 - 1.50 x10'3/uL 03/01/2020 11:[address] [facility] ABS. EOSINOPHILS 0.06 0.00 - 0.40 x10'3/uL 03/01/2020 11:[address] [facility] ABS. BASOPHILS 0.03 0.00 - 0.20 x10'3/uL 03/01/2020 11:[address] [facility] ABS. IMMATURE GRANULOCYTES 0.01 0.00 - 0.03 x10'3/uL 03/01/2020 11:[address] [facility] ABS. NUCLEATED RBC'S 0.00 0.00 x10'3/uL 03/01/2020 11:[address] [facility] 03/01/2020 11:2 5 AM CDT Harvinder Stallings Jr., MD LABORATORY Final Re sult [facility] [address] [place] [address], documented in this encounter Visit Diagnoses Diagnosis Viral syndrome- Primary Unspecified viral infection, in conditions classified elsewhere and of unspecified site Person under investigation for COVID-19 documented in this encounter Administered Medications Inactive Administered Medications - up to 3 most recent administrations Medication Order MAR Action Action Date Dose Rate Site metoclopramide (REGLAN) injection 10 mg 10 mg, Intravenous, Once, 1 dose, On Sun03/01/20 at 1300, Administer IV over 1-2 minutes Given 03/01/2020 1:16 PM CDT 10 mg ondansetron (ZOFRAN) injection 4 mg 4 mg, Intravenous, Once, 1 dose, On Sun03/01/20 at 1115, IV push over 2-5 minutes. Given 03/01/2020 11:36 AM CDT 4 mg sodium chloride 0.9 % infusion 1 dose, Starting on Sun03/01/20 at 1037, Until Sun03/01/20 at 1230, [place]: luciano rueda sodium chloride 0.9% bolus infusion SOLN 1,000 mL 1,000 mL, Intravenous, Administer over 15 Minutes, Once, 1 dose, On Sun03/01/20 at 1115 New Bag 03/01/2020 11:36 AM CDT 1,000 mLs 999 mL/hr documented in this encounter Active and Recently Administered Medications Times are shown in CDT. Scheduled Medication Order 02/28/2020 02/29/2020 03/01/2020 metoclopramide (REGLAN) injection 10 mg (COMPLETED) 10 mg, Intravenous, Once, 1 dose, On Sun03/01/20 at 1300, Administer IV over 1-2 minutes 1316 (Given - Provid er: Millie Cintron RN) ondansetron (ZOFRAN) injection 4 mg (COMPLETED) 4 mg, Intravenous, Once, 1 dose, On Sun03/01/20 at 1115, IV push over 2-5 minutes. 1136 (Given - Provid er: Millie Cintron RN) sodium chloride 0.9% bolus infusion SOLN 1,000 mL (COMPLETED) 1,000 mL, Intravenous, Administer over 15 Minutes, Once, 1 dose, On Sun03/01/20 at 1115 1136 (New Bag - Prov ider: Millie Cintron RN)1230 (Infusion Stop Time - Provider: Millie Cintron RN) documented in this encounter Additional Health Concerns Infection Onset Date Last Indicated Resolved Time COVID-19 Rule Out 03/01/2020 03/01/2020 03/02/2020 10:39 PM CDT documented as of this encounter Care Teams Crm Solution Architect Relationship Specialty Start Date End Date Isaias Grier MD [address] [place] [phone] PCP - General FAMILY PRACTICE 01/29/19 03/18/21 documented as of this encounter
--- OUTSIDE RECORDS SUMMARY | 2024-08-03 01:10 | XMS_ITS | Encounter Summary ---
Author Organization [facility] Address [address] [place] [address]. [place] [address] [place] [address] Care Team Providers Care Recycler Name Role Phone Renee Hernandez MD Primary Care Provider [phone] Reason for Visit * Reason Comments Vomiting Weakness Encounter Details Date Type Department Care Team ([facility] st Contact Info) Description 03/19/2021 12:11 PM CDT - 03/19/2021 4:12 PM CDT Emergency [facility] [address] [place] [address] [place] [address] Bernardo Gale MD [address] [place] [id number] Vomiting; Weakness Discharge Disposition: Home or Self Care (Routine [...] Sign Reading Time Taken Comments Blood Pressure 100/67 03/19/2021 3:00 PM CDT Pulse 89 03/19/2021 3:00 PM CDT Temperature 36.7 ??C (98.1 ??F) 03/19/2021 12:22 PM C DT Respiratory Rate 17 03/19/2021 3:00 PM CDT Oxygen Saturation 100% 03/19/2021 3:00 PM CDT Inhaled Oxygen Concentration - - Weight 49 kg (108 lb) 03/19/2021 12:22 PM CDT Height 165.1 cm (5' 5 ) 03/19/2021 12:22 PM CDT Body Mass Index 17.97 03/19/2021 12:22 PM CDT documented in this encounter Discharge Instructions * Discharge Instructions* Bernardo Gale MD - 03/19/2021 4:06 PM CDT Rest, stay well-hydrated. Add Pedialyte or Gatorade for fluids. Use medication as prescribed. Closefollow-up with primary care-call for appointment. Return to the ER for any worsening symptoms or concerns. * Attachments The following attachments cannot be sent through Care Everywhere. * Nausea and Vomiting Discharge Instructions, Adult (Armenian) documented in this encounter Medications at Time [...] times daily as needed. 15 tablet 03/19/2021 documented as of this encounter ED Notes * Bernardo Gale MD - 03/19/2021 2:59 PM CDT Chief Complaint Chief Complaint Patient presents with ??? Vomiting ??? Weakness History of Present Illness 30-year-old female presents with nausea, vomiting, dehydration. She states that the symptoms began on Sunday. She was prescribed doxycycline by her primary care physician for a MRSA infection of herscalp. She since stopped the medication but has persistent emesis. This is been nonbloody or nonbilious. No fevers or chills. She does have some abdominal discomfort around the time when she vomits. Currently no abdominal pain. No back or flank pain. She has been urinating normally. No frequency, dysuria, hematuria. No fevers or chills. No chest pain or shortness of breath. No diarrhea. No other GI or complaints. No other complaints at this time. Medical History ALLERGIES: Allergies Allergen Reactions ??? Peanut-Containing Drug Products Anaphylaxis ??? Latex Hives MEDICATIONS: Prior to Admission medications Medication Sig Start Date End Date Taking? Authorizing Provider levothyroxine 25 MCG tablet Take 40 mcg by mouth daily. 05/22/19 Yes Doc Abstract metoclopramide 10 MG tablet Take 1 tablet (10 mg total) by mouth 2 (two) times daily as needed. 03/19/21 04/03/21 Yes Bernardo Gale MD NON FORMULARY Indications: avalog insulin via continuous pump Yes Doc Abstract ondansetron 4 MG disintegrating tablet Take 1 tablet (4 mg total) by mouth every 8 (eight) hours asneeded for Nausea. Patient taking differently: Take 8 mg by mouth every 8 (eight) hours as needed for Nausea. 03/01/20 Yes Harvinder Stallings Jr., MD pantoprazole EC 40 MG tablet Take 40 mg by mouth daily. 05/22/19 Yes Doc Abstract PAST MEDICAL HISTORY: Past Medical [...] Substance Use Topics ??? Alcohol use: No ??? Drug use: Yes Types: Marijuana Review of Systems Review of Systems All other systems reviewed and are negative. Physical Exam Filed Vitals: 03/19/21 1222 BP: 116/79 Pulse: 103 Resp: 16 Temp: 98.1 ??F (36.7 ??C) TempSrc: Temporal SpO2: 98% Weight: 49 kg (108 lb) Height: 5' 5 (1.651 m) Physical Exam Gen: alert and oriented x 3. GCS 15. Well nourished, well hydrated in no distress. Heent: perrl, eomi, op clear, neck supple no meningismus/meningitic signs, no lad Cardiac: Nl S1/S2, RRR, no murmurs rubs gallops. Pulmonary: Clear to auscultation b/l. No wheeze, rhonchi, crackles Abdomen: s/nt/nd NABS. No rebound, guarding or rigidity. No CVA tenderness Extremity: Pt. able to move all four extremities. No rash, Cyanosis, Edema Neuro: Moves all four extremities equally Diagnostic Studies / Procedures ELECTROCARDIOGRAMS: No results found for this visit on 03/19/21. LABORATORY STUDIES: Results for orders placed or performed during the hospital encounter of 03/19/21 CBC W/DIFF AUTOMATED Result Value Ref Range WBC 7.8 4.0 - 10.8 x10'3/uL RBC 4.53 4.10 - 5.40 x10'6/uL HGB 13.6 12.0 - 16.0 G/DL HCT 41.0 36.0 - 47.0 % MCV 90.5 78.0 - 100.0 FL MCH 30.0 27.0 - 31.0 PG MCHC 33.2 33.0 - 36.0 G/DL RDW 12.3 11.5 - 14.5 % PLT 281 150 - 350 x10'3/uL MPV 9.8 7.4 - 10.4 FL Differential Comment NORMAL REFERENCE RANGE NOT ESTABLISHED FOR THE PROPORTIONAL LEUKOCYTE DIFFERENTIAL. SEG NEUTROPHILS 60.6 % LYMPHOCYTES 30.2 % MONOCYTES 7.5 % EOSINOPHILS 0.8 % BASOPHILS 0.8 % IMMATURE GRANS 0.1 % NRBC 0.0 % ABS. NEUTROPHILS 4.71 1.60 - 8.30 x10'3/uL ABS. LYMPHOCYTES 2.35 0.80 - 4.70 x10'3/uL ABS. MONOCYTES 0.58 0.00 - 1.50 x10'3/uL ABS. EOSINOPHILS 0.06 0.00 - 0.40 x10'3/uL ABS. BASOPHILS 0.06 0.00 - 0.20 x10'3/uL ABS. IMMATURE GRANULOCYTES 0.01 0.00 - 0.03 x10'3/uL ABS. NUCLEATED RBC'S 0.00 0.00 x10'3/uL COMPREHENSIVE METABOLIC PANEL Result Value Ref Range SODIUM 133 (L) 136 - 145 MMOL/L POTASSIUM 4.5 3.5 - 5.1 MMOL/L CHLORIDE S/P/B 96 (L) 98 - 107 MMOL/L CO2 24.5 21.0 - 32.0 MMOL/L GLUCOSE 152 (H) 70 - 99 MG/DL BUN 20 6 - 24 MG/DL CREATININE S/P/B 1.02 0.55 - 1.02 MG/DL CALCIUM 9.3 8.4 - 10.5 MG/DL BILIRUBIN TOTAL S/P/B 0.9 0.2 - 1.0 MG/DL ALKALINE PHOSPHATASE S/P/B 123 (H) 37 - 98 U/L AST 16 15 - 37 U/L ALT 21 14 - 59 U/L TOTAL PROTEIN S/P/B 8.9 (H) 6.4 - 8.2 G/DL ALBUMIN S/P/B 4.4 3.4 - 5.0 G/DL ANION GAP 12.5 5.0 - 15.0 MMOL/L OSMOLALITY (CALC) 282 MOSM/KG eGFR Non-Afr. Amer. 73 (L) >89 ML/MIN/1.73 M2 eGFR Afr. Amer. 84 (L) >89 ML/MIN/1.73 M2 GFR NOTES GFR REFERENCES: Blood gas, venous Result Value Ref Range O2 SAT VENOUS 46 40 - 70 % PH VENOUS 7.38 7.35 - 7.45 PC02 VENOUS 40.9 (L) 41.0 - 51.0 MMHG PO2 VENOUS 27.0 20.0 - 40.0 MM HG BASE DEFICIT,VENOUS 0.9 MMOL/L BICARB-VENOUS 23.6 22.0 - 29.0 MMOL/L TCO2 24.9 (L) 25.0 - 29.0 MMOL/L LITER FLOW ROOM AIR BETA-HYDROXYBUTYRATE Result Value Ref Range BETA-HYDROXYBUTYRATE 4.1 (H) 0.0 - 0.3 MMOL/L URINALYSIS WI REFLEX TO CULTURE Specimen: URINE, CLEAN CATCH Result Value Ref Range COLOR (U) YELLOW TRANSPARENCY SLIGHTLY CLOUDY Specific [place] (U) 1.030 (H) 1.000 - 1.025 U PH 5.5 5.0 - 8.0 LEUKOCYTE ESTERASE NEGATIVE NEGATIVE NITRITES NEGATIVE NEGATIVE PROTEIN (U) 1+ (A) NEGATIVE URINE GLUCOSE NEGATIVE NEGATIVE U KETONES 4+ (A) NEGATIVE UROBILINOGEN 1.0 (H) <1.0 EU/DL BLOOD TRACE (A) NEGATIVE WBC/HPF 5-10 (A) 0 - 5 /HPF RBC/HPF 5-10 (A) 0 - 5 /HPF EPI/HPF FEW /LPF BACTERIA (URINE) 3+ /HPF MUCUS PRESENT URINE, OTHER CASTS HYALINE /LPF BILIRUBIN (U) POSITIVE (A) NEGATIVE CULTURE & SENSITIVITY INDICATED? SPECIMEN SETUP FOR CULTURE TEST URINE Result Value Ref Range PREG TEST NEGATIVE Specific [place] (U) >1.030 LIPASE Result Value Ref Range LIPASE 75 73 - 393 UNITS/L POCT glucose Result Value Ref Range GLUCOSE POC 136 (H) 70 - 99 MG/DL POCT glucose Result Value Ref Range GLUCOSE POC 71 70 - 99 MG/DL CORONAVIRUS (COVID-19) ANTIGEN DIRECT OPTICAL Specimen: NASAL Result Value Ref Range CORONAVIRUS ANTIGEN IA NEGATIVE NEGATIVE Specimen Type NASAL FIRST TEST YES EMPLOYED IN HEALTHCARE NO SYMPTOMATIC DEFINED BY CDC YES DATE OF SYMPTOM ONSET [id number] HOSPITALIZATION STATUS NO RESIDENT OF [facility] CARE NO UNKNOWN IMAGING STUDIES XR ABD SERIES W CHEST 1V Final Result by User, [id number] (03/19 6294) Examination: XR ABD SERIES W CHEST 1V Exam time: 03/19/2021 3:34 PM Clinical history: Nausea and vomiting Comparison: Chest radiograph 03/01/2020 Technique: Single view chest, supine and upright abdomen/pelvis Findings: CHEST: Heart size and pulmonary vasculature within normal limits. No pulmonary parenchymal opacity. No pleural effusion. No hyperinflation. ABDOMEN: Nonobstructive bowel gas pattern. No evidence of free air. No evidence of organomegaly nor mass lesion. IMPRESSION: 1) No radiographic evidence of active disease the chest. 2. Nonobstructive bowel gas, no evidence of free air. Referred By: BERNARDO GALE Interpreted By: Zain Calles MD, 03/19/2021 3:38 PM ED Course / Medical Decision Making Patient had IV placed and was given 2 L of normal saline. COVID-19 screen is negative. All labs arereviewed. This is consistent with dehydration. No evidence for DKA. Patient was given Zofran and Reglan with Benadryl for nausea. She has had no further episodes of emesis in the ED. She does currently feel improved. Surgical series of the abdomen is unremarkable. Patient will be prescribed a course of Reglan to use as needed for nausea and vomiting. Recommend close follow-up with primary care for recheck return to the ER for any worsening symptoms or concerns. Patient expressed understanding. We will wait for the results of the urine culture given the patient has no urinary symptoms at this t afshan. Clinical Impression Vomiting (Primary) Dehydration Disposition: Discharge Bernardo Gale MD 03/19/21 1606 * Millie Cintron RN - 03/19/2021 12:18 PM CDT Arrives per w/c with c/ovomiting and weakness. Was on abx 9 days ago for abscess on head, was getting sick taking it so dr had her stop. States she is sicker since she stopped taking it. Reports her blood sugar has been under control. documented in this encounter Plan of Treatment Not on file documented as of this encounter Procedures Procedure Name Priority Date/Time Associated Diagnosis Comments XR ABD SERIES W CHEST 1V STAT 03/19/2021 3:34 PM CDT POCT GLUCOSE - ALARCON DOCKED DEVICE Routine 03/19/2021 2:45 PM CDT URINALYSIS WI REFLEX TO CULTURE STAT 03/19/2021 1:25 PM CDT TEST URINE STAT 03/19/2021 1:25 PM CDT URINE BACTERIA CULTURE Routine 1:25 PM CDT CORONAVIRUS (COVID-19) ANTIGEN DIRECT OPTICAL STAT 03/19/2021 12:38 PM CDT BETA-HYDROXYBUTYRATE STAT 03/19/2021 12:21 PM CDT BLOOD GAS, VENOUS STAT 03/19/2021 12: 21 PM CDT COMPREHENSIVE METABOLIC PANEL STAT 03/19/2021 12:21 PM CDT CBC W/DIFF AUTOMATED STAT 03/19/2021 12:21 PM CDT LIPASE STAT 03/19/2021 12:21 PM CDT POCT GLUCOSE - ALARCON DOCKED DEVICE Routine 03/19/2021 12:17 PM CDT documented in this encounter Results * XR ABD SERIES W CHEST 1V (03/19/2021 3:34 PM CDT) Anatomical Region Laterality Modality Abdomen, Chest Radiographic Angela ging 03/19/2021 3:38 PM CDT Impressions 03/19/2021 3:39 PM CDT IMPRESSION: 1) No radiographic evidence of active disease the chest. 2. Nonobstructive bowel gas, no evidence of free air. Referred By: BERNARDO GALE Interpreted By: Zain Calles MD, 03/19/2021 3:38 PM Narrative 03/19/2021 3:39 PM CDT Examination: XR ABD SERIES W CHEST 1V Exam time: 03/19/2021 3:34 PM Clinical history: Nausea and vomiting Comparison: Chest radiograph 03/01/2020 Technique: Single view chest, supine and upright abdomen/pelvis Findings: CHEST: Heart size and pulmonary vasculature within normal limits. No pulmonary parenchymal opacity. No pleural effusion. No hyperinflation. ABDOMEN: Nonobstructive bowel gas pattern. No evidence of free air. No evidence of organomegaly nor mass lesion. Procedure Note Zain Calles MD - 03/19/2021 Examination: XR ABD SERIES W CHEST 1V Exam time: 03/19/2021 3:34 PM Clinical history: Nausea and vomiting Comparison: Chest radiograph 03/01/2020 Technique: Single view chest, supine and upright abdomen/pelvis Findings: CHEST: Heart size and pulmonary vasculature within normal limits. Nopulmonary parenchymal opacity. No pleural effusion. No hyperinflation. ABDOMEN: Nonobstructive bowel gas pattern. No evidence of free air. Noevidence of organomegaly nor mass lesion. IMPRESSION: 1) No radiographic evidence of active disease the chest. 2. Nonobstructive bowel gas, no evidence of free air. Referred By: BERNARDO GALE Interpreted By: Zain Calles MD, 03/19/2021 3:38 PM Bernardo Gale MD GENERAL IMAGING Final Resul t * POCT glucose (03/19/2021 2:45 PM CDT) [facility] GLUCOSE POC 71 70 - 99 MG/DL 03/19/2021 2:47 PM CDT [facility] 03/19/2021 2:45 PM CDT Bernardo Gale MD POCT ORDERABLES - DEVICE Fi nal Result [facility] [address] [place] [address], [place] [phone] * CULTURE URINE (03/19/2021 1:25 PM CDT) [facility] SPEC DESCRIPTION URINE CLEAN CATCH 03/19/2021 1:44 PM CDT [facility] SPECIAL REQUESTS NO SPECIAL REQUEST 03/19/2021 1:44 PM CDT [facility] CULTURE RESULT FEW CONTAMINANTS 02/21 3:33 PM CDT [facility] URINE SPECIMEN OBTAINED BY CLEAN CATCH PROCEDURE / Unknown 03/19/2021 1:25 PM CDT 03/19/2021 1:44 PM CDT us Bernardo Gale MD MICROBIOLOGY - [facility]AL [facility] Final Result Performing Organization Address [facility] de Phone Number [facility] [address] [place] [address], [id number] [facility] [address] [place] [id number], * TEST URINE (03/19/2021 1:25 PM CDT) PREG TEST NEGATIVE 03/19/2021 1:40 PM CDT [facility] SPECIFIC GRAVITY (U) >1.030 03/19/2021 1:40 PM CDT [facility] URINE SPECIMEN OBTAINED BY CLEAN CATCH PROCEDURE / Unknown 03/19/2021 1:25 PM CDT us Bernardo Gale MD URINE ORDERABLES Final Resu lt Performing Organization Address [facility] de Phone Number [facility] [address] [place] [phone], * (ABNORMAL) URINALYSIS WI REFLEX TO CULTURE (03/19/2021 1:25 PM CDT) COLOR (U) YELLOW 03/19/2021 1:43 PM CDT [facility] TRANSPARENCY SLIGHTLY CLOUDY 03/19/2021 1:43 PM CDT [facility] SPECIFIC GRAVITY (U) 1.030(H) 1.000 - 1.025 03/19/2021 1:43 PM CDT [facility] Comment:EQUAL TO OR GREATER THAN U PH 5.5 5.0 - 8.0 03/19/2021 1:43 PM CDT [facility] LEUKOCYTES (U) NEGATIVE NEGATIVE 03/19/2021 1:43 PM CDT [facility] NITRITES NEGATIVE NEGATIVE 03/19/2021 1:43 PM CDT [facility] PROTEIN (U) 1+(A) NEGATIVE 03/19/2021 1:43 PM CDT [facility] URINE GLUCOSE NEGATIVE NEGATIVE 03/19/2021 1:43 PM CDT [facility] KETONES MG/DL (U) 4+(A) NEGATIVE 03/19/2021 1:43 PM CDT [facility] UROBILINOGEN 1.0(H) <1.0 EU/DL 03/19/2021 1:43 PM CDT [facility] BLOOD (U) TRACE(A) NEGATIVE 03/19/2021 1:43 PM CDT [facility] WBC/HPF 5-10(A) 0 - 5 /HPF 03/19/2021 1:43 PM CDT [facility] RBC/HPF 5-10(A) 0 - 5 /HPF 03/19/2021 1:43 PM CDT [facility] EPI/HPF FEW /LPF 03/19/2021 1:43 PM CDT [facility] BACTERIA (U) 3+ /HPF 03/19/2021 1:43 PM CDT [facility] MUCUS PRESENT 03/19/2021 1:43 PM CDT [facility] OTHER CASTS (U) HYALINE /LPF 1:43 PM CDT [facility] Comment:50-100 BILIRUBIN (U) POSITIVE(A) NEGATIVE 03/19/2021 1:43 PM CDT [facility] CULTURE & SENSITIVITY INDICATED? SPECIMEN SETUP FOR CULTURE 03/19/2021 1:43 PM CDT [facility] URINE SPECIMEN OBTAINED BY CLEAN CATCH PROCEDURE / Unknown 03/19/2021 1:25 PM CDT us Bernardo Gale MD URINE ORDERABLES Final Resu lt [facility] [address] [place] [address], * CORONAVIRUS (COVID-19) ANTIGEN DIRECT OPTICAL (03/19/2021 12:38 PM CDT) CORONAVIRUS ANTIGEN IA NEGATIVE NEGATIVE 03/19/2021 1:11 PM CDT [facility] Comment: NEGATIVE RESULTS DO NOT RULE OUT SARS-COV-2 INFECTION AND SHOULD NOT BE USED THE SOLE BASIS FOR TREATMENT OR PATIENT MANAGEMENT DECISIONS, INCLUDING INFECTION CONTROL DECISIONS. NEGATIVE RESULTS SHOULD BE CONSIDERED IN THE CONTEXT OF A PATIENT'S RECENT EXPOSURES, HISTORY AND THE PRESENCE OF CLINICAL SIGNS AND SYMPTOMS CONSISTENT WITH COVID 19. THIS TEST HAS BEEN AUTHORIZED BY THE FDA UNDER AN EMERGENCY USE AUTHORIZATION (EUA) FOR USE BY AUTHORIZED LABORATORIES. SPECIMEN TYPE NASAL 03/19/2021 12:48 PM CDT [facility] FIRST TEST YES 03/19/2021 12:48 PM CDT [facility] EMPLOYED IN HEALTHCARE NO 03/19/2021 12:48 PM CDT [facility] SYMPTOMATIC DEFINED BY CDC YES 03/19/2021 12:48 PM CDT [facility] DATE OF SYMPTOM ONSET 2021031703/19/2021 12:48 PM CDT [facility] HOSPITALIZATION STATUS NO 03/19/2021 12:48 PM CDT [facility] RESIDENT OF [facility] NO 03/19/2021 12:48 PM CDT [facility] UNKNOWN 03/19/2021 12:48 PM CDT [facility] Specimen from nose (specimen) NASAL STRUCTURE / Unknown 03/19/2021 12:38 PM CDT Bernardo Gale MD MICROBIOLOGY - GENERAL SIA ARMENTA Final Result [facility] [address] [place] [address], * LIPASE (03/19/2021 12:21 PM CDT) LIPASE 75 73 - 393 UNITS/L 03/19/2021 2:18 PM CDT [facility] 03/19/2021 12:2 1 PM CDT us Bernardo Gale MD LABORATORY Final Resul t Performing Organization Address [facility]/ZIP Co de Phone Number [facility] [address] [place] [address], * (ABNORMAL) BETA-HYDROXYBUTYRATE (03/19/2021 12:21 PM CDT) BETA-HYDROXYBU TYRATE 4.1(H) 0.0 - 0.3 MMOL/L 03/19/2021 12:33 PM CDT [facility] 03/19/2021 12:2 1 PM CDT us Bernardo Gale MD LABORATORY Final Resul t Performing Organization Address [facility] Co de Phone Number [facility] [address] [place] [address], * (ABNORMAL) Blood gas, venous (03/19/2021 12:21 PM CDT) O2 SAT VENOUS 46 40 - 70 % 03/19/2021 12:35 PM CDT [facility] PH VENOUS 7.38 7.35 - 7.45 03/19/2021 12:35 PM CDT [facility] PCO2 VENOUS 40.9(L) 41.0 - 51.0 MMHG 03/19/2021 12:35 PM CDT [facility] PO2 VENOUS 27.0 20.0 - 40.0 MM HG 03/19/2021 12:35 PM CDT [facility] BASE DEFICIT VENOUS 0.9 MMOL/L 03/19/2021 12:35 PM CDT [facility] BICARB VENOUS 23.6 22.0 - 29.0 MMOL/L 03/19/2021 12:35 PM CDT [facility] TCO2 24.9(L) 25.0 - 29.0 MMOL/L 03/19/2021 12:35 PM CDT [facility] LITER FLOW ROOM AIR 03/19/2021 12:34 PM CDT [facility] Blood specimen (specimen) 03/19/2021 12:21 PM CDT us Bernardo Gale MD LABORATORY Final Resul t [facility] [address] [place] [address], * (ABNORMAL) COMPREHENSIVE METABOLIC PANEL (03/19/2021 12:21 PM CDT) SODIUM S/P/B 133(L) 136 - 145 MMOL/L 03/19/2021 12:54 PM CDT [facility] POTASSIUM S/P/B 4.5 3.5 - 5.1 MMOL/L 03/19/2021 12:54 PM CDT [facility] CHLORIDE S/P/B 96(L) 98 - 107 MMOL/L 03/19/2021 12:54 PM CDT [facility] CO2 24.5 21.0 - 32.0 MMOL/L 03/19/2021 12:54 PM CDT [facility] GLUCOSE 152(H) 70 - 99 MG/DL 03/19/2021 12:54 PM CDT [facility] Comment: FASTING GLUCOSE 100 TO 125 MG/DL IS CONSISTENT WITH IMPAIRED FASTING GLUCOSE. FASTING GLUCOSE >125 MG/DL IS CONSISTENT WITH DIABETES. RANDOM GLUCOSE >200 MG/DL WITH HYPERGLYCEMIC SYMPTOMS IS CONSISTENT WITH DIABETES. PER ADA GUIDELINES BUN 20 6 - 24 MG/DL 03/19/2021 12:54 PM CDT [facility] CREATININE S/P/B 1.02 0.55 - 1.02 MG/DL 03/19/2021 12:54 PM CDT [facility] CALCIUM S/P/B 9.3 8.4 - 10.5 MG/DL 03/19/2021 12:54 PM [facility] BILIRUBIN TOTAL S/P/B 0.9 0.2 - 1.0 MG/DL 03/19/2021 12:54 PM [facility] Comment: THIS ASSAY IS NOT RECOMMENDED FOR PATIENTS UNDERGOING TREATMENT WITH ELTROMBOPAG DUE TO THE POTENTIAL FOR FALSELY ELEVATED RESULTS. ALKALINE PHOSPHATASE S/P/B 123(H) 37 - 98 U/L 03/19/2021 12:54 PM [facility] AST 16 15 - 37 U/L 03/19/2021 12:54 PM [facility] ALT 21 14 - 59 U/L 03/19/2021 12:54 PM [facility] TOTAL PROTEIN S/P/B 8.9(H) 6.4 - 8.2 G/DL 03/19/2021 12:54 PM [facility] ALBUMIN S/P/B 4.4 3.4 - 5.0 G/DL 03/19/2021 12:54 PM [facility] ANION GAP 12.5 5.0 - 15.0 MMOL/L 03/19/2021 12:54 PM [facility] OSMOLALITY (CALC) 282 MOSM/KG 021 12:54 PM [facility] Comment:REFERENCE RANGE NOT ESTABLISHED EGFR NON-AFR. AMER. 73(L) >89 ML/MIN/1. 73 M2 03/19/2021 12:54 PM [facility] EGFR AFR. AMER. 84(L) >89 ML/MIN/1. 73 M2 03/19/2021 12:54 PM [facility] GFR NOTES GFR REFERENCE S: 03/19/2021 12:54 PM [facility] Comment: THE ESTIMATED GFR IS [...] ml/min/1.73 m2 G5,KIDNEY FAILURE: <15 ml/min/1.73 m2 03/19/2021 12:2 1 PM CDT us Bernardo Gale MD LABORATORY Final Resul t [facility] [address] [place] [address], * CBC W/DIFF AUTOMATED (03/19/2021 12:21 PM CDT) WBC 7.8 4.0 - 10.8 x10'3/uL 03/19/2021 12:32 PM CDT [facility] RBC 4.53 4.10 - 5.40 x10'6/uL 03/19/2021 12:32 PM CDT [facility] HGB 13.6 12.0 - 16.0 G/DL 03/19/2021 12:32 PM CDT [facility] HCT 41.0 36.0 - 47.0 % 03/19/2021 12:32 PM CDT [facility] MCV 90.5 78.0 - 100.0 FL 03/19/2021 12:32 PM CDT [facility] MCH 30.0 27.0 - 31.0 PG 03/19/2021 12:32 PM CDT [facility] MCHC 33.2 33.0 - 36.0 G/DL 03/19/2021 12:32 PM CDT [facility] RDW 12.3 11.5 - 14.5 % 03/19/2021 12:32 PM CDT [facility] PLT 281 150 - 350 x10'3/uL 03/19/2021 12:32 PM CDT [facility] MPV 9.8 7.4 - 10.4 FL 03/19/2021 12:32 PM CDT [facility] DIFFERENTIAL COMMENT NORMAL REFERENCE RANGE NOT ESTABLISHED FOR THE PROPORTIONAL LEUKOCYTE DIFFERENTIAL. 03/19/2021 12:32 PM CDT [facility] SEG NEUTROPHILS 60.6 % 12:32 PM CDT [facility] LYMPHOCYTES 30.2 % 03/19/2021 12:32 PM CDT [facility] MONOCYTES 7.5 % 03/19/2021 12:32 PM CDT [facility] EOSINOPHILS 0.8 % 03/19/2021 12:32 PM CDT [facility] BASOPHILS 0.8 % 03/19/2021 12:32 PM CDT [facility] IMMATURE GRANS % 0.1 % 03/19/20 12:32 PM CDT [facility] NRBC 0.0 % 03/19/2021 12:32 PM CDT [facility] ABS. NEUTROPHILS 4.71 1.60 - 8.30 x10'3/uL 03/19/2021 12:32 PM CDT [facility] ABS. LYMPHOCYTES 2.35 0.80 - 4.70 x10'3/uL 03/19/2021 12:32 PM CDT [facility] ABS. MONOCYTES 0.58 0.00 - 1.50 x10'3/uL 03/19/2021 12:32 PM CDT [facility] ABS. EOSINOPHILS 0.06 0.00 - 0.40 x10'3/uL 03/19/2021 12:32 PM CDT [facility] ABS. BASOPHILS 0.06 0.00 - 0.20 x10'3/uL 03/19/2021 12:32 PM CDT [facility] ABS. IMMATURE GRANULOCYTES 0.01 0.00 - 0.03 x10'3/uL 03/19/2021 12:32 PM CDT [facility] ABS. NUCLEATED RBC'S 0.00 0.00 x10'3/uL 03/19/2021 12:32 PM CDT [facility] 03/19/2021 12:2 1 PM CDT us Bernardo Gale MD LABORATORY Final Resul t [facility] [address] [place] [address], [place] [phone] * (ABNORMAL) POCT glucose (03/19/2021 12:17 PM CDT) GLUCOSE POC 136(H) 70 - 99 MG/DL 03/19/2021 12:23 PM CDT [facility] 03/19/2021 12:1 7 PM CDT us Bernardo Gale MD POCT ORDERABLES - DEVICE Fi nal Result Performing Organization Address [facility] Co de Phone Number [facility] [place] [address], [place] [phone] documented in this encounter Visit Diagnoses Diagnosis Vomiting- Primary Vomiting alone Dehydration documented in this encounter Administered Medications Inactive Administered Medications - up to 3 most recent administrations Medication Order MAR Action Action Date Dose Rate Site dextrose 10 % bolus infusion 250 mL 250 mL, Intravenous, Administer over 15 Minutes, Once, 1 dose, On 03/19/21 at 1500 New Bag 03/19/2021 2:57 PM CDT 250 mLs dextrose 10 % infusion 1 dose, Starting on 03/19/21 at 1451, Until 03/19/21 at 1607, Created by luciano rueda diphenhydrAMINE (BENADRYL) injection 25 mg 25 mg, Intravenous, Once, 1 dose, On 03/19/21 at 1400, For IV administration, give no faster than 25 mg/min. Given 03/19/2021 2:08 PM CDT 25 mg metoclopramide (REGLAN) injection 10 mg 10 mg, Intravenous, Once, 1 dose, On 03/19/21 at 1400, Administer IV over 1-2 minutes Given 03/19/2021 2:08 PM CDT 10 mg ondansetron (ZOFRAN) 4 MG/2ML injection 1 dose, Starting on 03/19/21 at 1235, Until 03/19/21 at 1248, Created by cabinet override ondansetron (ZOFRAN) injection 4 mg 4 mg, Intravenous, Once, 1 dose, On 03/19/21 at 1215, IV push over 2-5 minutes. Given 03/19/2021 12:48 PM CDT 4 mg ondansetron (ZOFRAN) injection 4 mg 4 mg, Intravenous, Once, 1 dose, On 03/19/21 at 1400, IV push over 2-5 minutes. Given 03/19/2021 1:53 PM CDT 4 mg sodium chloride 0.9 % infusion 1 dose, Starting on 03/19/21 at 1235, Until 03/19/21 at 1304, Created by cabinet override sodium chloride 0.9% bolus infusion SOLN 1,000 mL 1,000 mL, Intravenous, Administer over 15 Minutes, Bolus (Once), 1 dose, On 03/19/21 at 1215 New Bag 03/19/2021 12:49 PM CDT 1,000 mLs sodium chloride 0.9% bolus infusion SOLN 1,000 mL 1,000 mL, Intravenous, Administer over 15 Minutes, Bolus (Once), 1 dose, On 03/19/21 at 1445 New Bag 03/19/2021 2:41 PM CDT 1,000 mLs documented in this encounter Active and Recently Administered Medications Times are shown in CDT. Scheduled Medication Order 03/17/2021 03/18/2021 03/19/2021 dextrose 10 % bolus infusion 250 mL (COMPLETED) 250 mL, Intravenous, Administer over 15 Minutes, Once, 1 dose, On 03/19/21 at 1500 1457 (New Bag - Prov ider: Fela Rojas RN)1607 (Infusion Stop Time - Provider: Fela Rojas RN) diphenhydrAMINE (BENADRYL) injection 25 mg (COMPLETED) 25 mg, Intravenous, Once, 1 dose, On 03/19/21 at 1400, For IV administration, give no faster than 25 mg/min. 1408 (Given - Provid er: Fela Rojas RN) metoclopramide (REGLAN) injection 10 mg (COMPLETED) 10 mg, Intravenous, Once, 1 dose, On 03/19/21 at 1400, Administer IV over 1-2 minutes 1408 (Given - Provid er: Fela Rojas, RYAN) ondansetron (ZOFRAN) injection 4 mg (COMPLETED) 4 mg, Intravenous, Once, 1 dose, On 03/19/21 at 1215, IV push over 2-5 minutes. 1248 (Given - Provid er: Fela Rojas, RYAN) ondansetron (ZOFRAN) injection 4 mg (COMPLETED) 4 mg, Intravenous, Once, 1 dose, On 03/19/21 at 1400, IV push over 2-5 minutes. 1353 (Given - Provid er: Fela Rojas RN) sodium chloride 0.9% bolus infusion SOLN 1,000 mL (COMPLETED) 1,000 mL, Intravenous, Administer over 15 Minutes, Bolus (Once), 1 dose, On 03/19/21 at 1215 1249 (New Bag - Prov ider: Fela Rojas RN)1304 (Infusion Stop Time - Provider: Fela Rojas RN) sodium chloride 0.9% bolus infusion SOLN 1,000 mL (COMPLETED) 1,000 mL, Intravenous, Administer over 15 Minutes, Bolus (Once), 1 dose, On 03/19/21 at 1445 1441 (New Bag - Prov ider: Fela Rojas RN)1607 (Infusion Stop Time - Provider: Fela Rojas RN) documented in this encounter Additional Health Concerns Infection Onset Date Last Indicated Resolved Time COVID-19 Rule Out 03/19/2021 03/19/2021 03/19/2021 1:12 PM CDT documented as of this encounter Care Teams Recycler Relationship Specialty Start Date End Date Renee Hernandez MD [address] [place] [phone] PCP - General FAMILY PRACTICE 03/19/21 documented as of this encounter
--- OUTSIDE RECORDS SUMMARY | 2024-08-03 01:10 | XMS_ITS | Encounter Summary ---
Author Organization [facility] Address [facility]. [place], [place] [address] [place] [id number] Care Team Providers Care Hydroelectric Operator Name Role Phone Isaias Grier MD Primary Care Provider +- [phone] Encounter Details Date Type Department Care Team (Latest Contact Info) Description 03/01/2020 Travel Social History Tobacco Use Types Packs/Day [...] AM CDT documented as of this encounter Plan of Treatment Not on file documented as of this encounter Visit Diagnoses Not on filedocumented in this encounter Additional Health Concerns Infection Onset Date Last Indicated Resolved Time COVID-19 Rule Out 03/01/2020 03/01/2020 03/02/2020 10:39 PM CDT documented as of this encounter Care Teams Hydroelectric Operator Relationship Specialty Start Date End Date Isaias Grier MD [address] [place] [phone] PCP - General FAMILY PRACTICE 01/29/19 03/18/21 documented as of this encounter
--- OUTSIDE RECORDS SUMMARY | 2024-08-03 01:11 | XMS_ITS | Encounter Summary ---
Author Organization [facility] Address [facility] [place] [address] [place] [address] Care Team Providers Care Manager Infusion Name Role Phone Unavailable Primary Care Provider Unavailabl e Reason for Visit * Reason Comments Echo (SCAN) Encounter Details Date Type Department Care Team ([facility] st Contact Info) Description 09/30/2018 Scan [facility] [address] [place] [phone] Scanned, Documents Echo (SCAN) Social History Tobacco Use Types Packs/Day Years Used Date Smoking Tobacco: Every Day Cigarettes Smokeless Tobacco: Never Alcohol Use Standard Drinks/Week Comments No 0 (1 standard drink = 0.6 oz pur e alcohol) AUDIT-C Answer Date Recorded Frequency of Alcohol Consumption Never 04/09/2018 Average Number of Drinks Not on file 018 Frequency of Binge Drinking Not on file 03/23 Comments Unknown Sex and Gender Information Value Date Recorded Sex Assigned at Female 04/08/2018 12:39 PM CDT Legal Sex Female 10:27 PM CDT Gender Identity Female 04/08/2018 12:39 PM CDT Sexual Orientation Straight 04/08/2018 12 :39 PM CDT documented as of this encounter Plan of Treatment Not on file documented as of this encounter Procedures Procedure Name Priority Date/Time Associated Diagnosis Comments ECHO GENERIC (SCAN ORDER) Routine 09/30/2018 documented in this encounter Results * ECHO (09/30/2018) Anatomical Region Laterality Modality Other us Documents Scanned SCANNING Final Result documented in this encounter Visit Diagnoses Not on filedocumented in this encounter
--- OUTSIDE RECORDS SUMMARY | 2024-08-03 01:11 | XMS_ITS | Encounter Summary ---
Author Organization [facility] Address [facility] [place] [address] [place] [address] Care Team Providers Care Pencil Sorter Name Role Phone Unavailable Primary Care Provider Unavailabl e Encounter Details Date Type Department Care Team (Late st Contact Info) Description 01/01/2018 Abstract [facility] [address] [place] [address] Sami Aguilera MD [address] [place] [id number] Social History Tobacco Use Types Packs/Day Years Used Date Smoking Tobacco: Never Assessed AUDIT-C Answer Date Recorded Frequency of Alcohol [...] as of this encounter Visit Diagnoses Diagnosis Acute bronchitis documented in this encounter
--- OUTSIDE RECORDS SUMMARY | 2024-08-03 01:11 | XMS_ITS | Encounter Summary ---
Author Organization [facility] Address [facility] [place] [address] [place] [address] Care Team Providers Care Regasification Plant Operator Name Role Phone Unavailable Primary Care Provider Unavailabl e Encounter Details Date Type Department Care Team (Late st Contact Info) Description 09/30/[address] [address] [place] [address] Isaias Grier MD [address] [place] [phone] Social History Tobacco Use Types Packs/Day Years [...] as of this encounter Visit Diagnoses Diagnosis Family history of ischemic heart disease and other diseases of the circulatory system documented in this encounter
--- OUTSIDE RECORDS SUMMARY | 2024-08-03 01:11 | XMS_ITS | Encounter Summary ---
Author Organization [facility] Address [facility] [place] [address] [place] [address] Care Team Providers Care Ripshear Operator Name Role Phone Unavailable Primary Care Provider Unavailabl e Encounter Details Date Type Department Care Team (Late st Contact Info) Description 04/04/2018 Abstract [facility] [address] [place] [address] Sami Aguilera MD [address] [place] [phone] Social History Tobacco Use Types Packs/Day [...] Procedure Name Priority Date/Time Associated Diagnosis Comments URINALYSIS STAT 04/04/2018 7:35 AM CDT TEST URINE STAT 04/04/2018 7:35 AM CDT URINE BACTERIA CULTURE Routine 04/04/2018 7:35 AM CDT documented in this encounter Results * CULTURE URINE (04/04/2018 7:35 AM CDT) SPEC DESCRIPTION URINE CLEAN CATCH 04/04/2018 7:49 AM CDT [facility] SPECIAL REQUESTS NO SPECIAL REQUEST 04/04/2018 7:49 AM CDT [facility] CULTURE RESULT >25,000 TO 50,000 CFU/mLESCHE RICHIA COLI 04/05/2018 9:51 PM CDT [facility] URINE SPECIMEN OBTAINED BY CLEAN CATCH PROCEDURE / Unknown 04/04/2018 7:35 AM CDT 04/04/2018 7:49 AM CDT Narrative Organism Antibiotic Method Susceptibility Unknown AMPICILLIN JASON (VITEK) Sensitive Unknown AMOXICILLIN/CLAVULANIC A JASON (VITEK) Sensitive Unknown AZTREONAM JASON (VITEK) Sensitive Unknown CEFEPIME JASON (VITEK) Sensitive Unknown CEFTRIAXONE JASON (VITEK) Sensitive Unknown CEFAZOLIN JASON (VITEK) Sensitive Unknown CIPROFLOXACIN JASON (VITEK) Sensitive Unknown ESBL JASON (VITEK) NEG: Sensitive Unknown ERTAPENEM JASON (VITEK) Sensitive Unknown NITROFURANTOIN AJSON (VITEK) Sensitive Unknown GENTAMICIN JASON (VITEK) Sensitive Unknown IMIPENEM JASON (VITEK) Sensitive Unknown LEVOFLOXACIN JASON (VITEK) Sensitive Unknown MEROPENEM JASON (VITEK) Sensitive Unknown PIPRACIL/TAZO JASON (VITEK) Sensitive Unknown TRIMETH-SULFAMETH. JASON (VITEK) Sensitive Unknown TETRACYCLINE JASON (VITEK) Sensitive Comment: Organism code(s) sent by the ancillary, '>25,000 TO 50,000 CFU/mLESCHERICHIA COLI', not recognized. Organism 'UNKNOWN' was substituted in its place. us Generic Conversion Md MIR MICROBIOLOGY - GENERAL ORDERABLES Final Result [facility] [address] [place] [address], [place] [phone] [id number] [facility] [address] [place] [address], * (ABNORMAL) URINALYSIS (04/04/2018 7:35 AM CDT) COLOR (U) BRIGHT 04/04/2018 7:53 AM CDT [facility] TRANSPARENCY CLOUDY 04/04/2018 7:53 AM CDT [facility] SPECIFIC GRAVITY (U) 1.010 1.000 - 1.025 04/04/2018 7:53 AM CDT [facility] U PH 7.0 5.0 - 8.0 04/04/2018 7:53 AM CDT [facility] LEUKOCYTES (U) TRACE(A) NEGATIVE 04/04/2018 7:53 AM CDT [facility] NITRITES POSITIVE(A) NEGATIVE 04/04/2018 7:53 AM CDT [facility] PROTEIN (U) 1+(A) NEGATIVE 04/04/2018 7:53 AM CDT [facility] URINE GLUCOSE 3+(A) NEGATIVE 04/04/2018 7:53 AM CDT [facility] KETONES MG/DL (U) NEGATIVE NEGATIVE 04/04/2018 7:53 AM CDT [facility] UROBILINOGEN 1.0(H) <1.0 EU/DL 04/04/2018 7:53 AM CDT [facility] BILIRUBIN (U) NEGATIVE NEGATIVE 04/04/2018 7:53 AM CDT [facility] BLOOD (U) TRACE(A) NEGATIVE 04/04/2018 7:53 AM CDT [facility] WBC/HPF 20-50(A) 0 - 5 /HPF 04/04/2018 7:53 AM CDT [facility] RBC/HPF 0-5 0 - 5 /HPF 04/04/2018 7:53 AM CDT [facility] EPI/HPF MANY /LPF 04/04/2018 7:53 AM CDT [facility] BACTERIA (U) 2+ /HPF 04/04/2018 7:53 AM CDT [facility] MUCUS PRESENT 04/04/2018 7:53 AM CDT [facility] COMMENT (U) FEW WHITE BLOOD CELL CLUMPS. 04/04/2018 7:53 AM CDT [facility] 04/04/2018 7:35 AM CDT 04/04/2018 7:42 AM CDT us Generic Conversion Md MIR URINE ORDERABLES Final Result Performing Organization Address [facility]/ZIP Co de Phone Number [facility] [address] [place] [address], [place] [phone] * TEST URINE (04/04/2018 7:35 AM CDT) PREG TEST NEGATIVE 04/04/2018 7:48 AM CDT [facility] SPECIFIC GRAVITY (U) 1.010 04/04/2018 7:48 AM CDT [facility] URINE SPECIMEN / Unknown 04/04/2018 7:35 AM CDT 04/04/2018 7:42 AM CDT us Generic Conversion Md MIR URINE ORDERABLES Final Result Performing Organization Address [facility] Co de Phone Number [facility] [address] [place] [address], [place] [phone] documented in this encounter Visit Diagnoses Diagnosis Acute bronchitis documented in this encounter
--- OUTSIDE RECORDS SUMMARY | 2024-08-03 01:11 | XMS_ITS | Encounter Summary ---
Author Organization [facility] Address [facility] [place] [address] [place] [address] Care Team Providers Care Quarrying Manager Name Role Phone Unavailable Primary Care Provider Unavailabl e Reason for Referral * Imaging (Urgent) - Closed Specialty Diagnoses / Procedures Referred By Alexis t Referred To Contact Procedures CT ABD+PEL W CON Aissatou Hughes MD Phone: tel: fax: Referral ID Status Reason Start Date Expiration Date Visits Re quested Visits Authorized [id number] Closed 04/10/2018 05/10/2019 1 1 * Imaging (Urgent) - Closed Specialty Diagnoses / Procedures Referred By Alexis t Referred To Contact Procedures US RETROPERITONEAL COMP US RENAL Anson Dominique DO Referral ID Status Reason Start Date Expiration Date Visits Re quested Visits Authorized [id number] Closed 04/08/2018 05/08/2019 1 1 * Imaging (Routine) - Closed Specialty Diagnoses / Procedures Referred By Alexis t Referred To Contact Procedures USE ECHOCARDIOGRAM Lissy Godfrey APRN Phone: tel: fax: Referral ID Status Reason Start Date Expiration Date Visits Re quested Visits Authorized [id number] Closed 04/08/2018 05/08/2019 1 1 Reason for Visit * Auth/Cert Specialty Diagnoses / Procedures Referred By Alexis t Referred To Contact Diagnoses DKA Diabetic ketoacidosis Procedures GENERAL Referral ID Status Reason Start Date Expiration Date Visits Re quested Visits Authorized [id number] 1 1 Encounter Details Date Type Department Care Team (Latest Contact Info) Description 04/08/2018 12:18 PM CDT - 04/11/2018 5:41 PM CDT Hospital Encounter [facility] [address] [place] [address] Anson Dominique DO Patel, Parth R, MD [address] [place] [id number] Sanjana Samson MD Discharge Disposition: Left Against Medical Advice Social History Tobacco Use Types Packs/Day Years [...] Sign Reading Time Taken Comments Blood Pressure 115/71 04/11/2018 12:41 PM CDT Pulse 77 04/11/2018 12:41 PM CDT Temperature 36.7 ??C (98.1 ??F) 04/11/2018 12:41 PM C DT Respiratory Rate 04/11/2018 12:41 PM CDT Oxygen Saturation 100% 04/11/2018 12:41 PM CDT Inhaled Oxygen Concentration - - Weight 50.4 kg (111 lb 1.8 oz) 04/10/2018 4:27 A M CDT Height 165.1 cm (5' 5 ) 04/08/2018 12:36 PM CDT Body Mass Index 18.49 04/08/2018 12:36 PM CDT documented in this encounter Discharge Summaries * Sanjana Samson MD - 04/11/2018 4:59 PM CDT Physician Discharge Summary Patient ID: Steph Roberto [id number] 27-year-old 1990 Admit date: 04/08/2018 Expected Discharge Date: Admitting Physician: Sanjana Samson MD Discharge Physician: SANJANA SAMSON MD Admission Diagnoses: DKA Diabetic ketoacidosis Discharge Diagnoses: DKA, hypoglycemia, UTI Discharged Condition: fair Hospital Course: A 27-year-old female with a past medical history of DMI, HLD, GERD, anxiety, depression, smoker, and UTI who presented to [facility] ICU from [facility] in [place] for Diabetic Ketoacidosis. .? #Diabetic Ketoacidosis: with High anion gap metabolic acidosis, admited to ICU, s/p IV insulin, total of 6L+ IVFs for hypovolemia, gap is closed -hypoglysemia to 40s this am symptomatic, give juice, pt refused D50. -on hypoglycemic protocol -consult [place] [facility]o for futher rec ?? #UTI: failed PO ABO, on Vancomycin and Zosyn on admission. UC fond contamination, deescalated to Nitrofurantoin BID x 5 days -UC from [facility] grew E.Coli SS to Macrobid ?? #Concern for PID as patient reports new sexual partner and poor adherence to condom use, along withnot being seen by her BEHAVIORAL HEALTH COUNSELOR for pap or STI testing in several years. Urine test negative. Renal US negative for pyelonephritis -[facility]INDI BEHAVIORAL HEALTH COUNSELOR consulted for suspected PID, we appreciate your help -Chlamydia neg and gonorrhea pending -Vaginitis showed gardnerella but no trichomonas, likely an overgrowth of the normal vaginal bacteria and not a sexually transmitted infection -recommend flagyl 500mg BID x7 days ?? #Palpitations; last night noted feeling palpitation and EKG showed possible a flutter, mg 1.5, givemg supplement -appreciated EP input, Echo EF 67%, EP think possibility of movement of the arms or leads during this timeframe, no further w/u at this point. ?? # N/V: Beside of DKA patient report having intermittent nauseous vomiting for a few month, ?patienthas gastroparesis from uncontrolled DM. also noted splited out black staff frequently,? Manuel Cabrera related to nauseous vomiting,appreciated GI rec. -Gastric emptying study when not on pain medications (outpatient) -Possible EGD if there is a significant drop in hemoglobin or patient experiences overt bleeding. -CT a/p no mass noted -c/w Protonix, relan ?? #Active smoker: Discussed with patient about quitting smoking, counseling time 5 minute, offered nicotine patch , but refused. ?? #??Anxiety/Depression:Did not take any medications for this at home, continue to monitor for s/s ?? #Hyperlipidemia: LDL of 86, was initiate Pravastatin 20mg daily and recommend OP follow-up ?? #DVT prophylaxis: no SQH possibel GIB, on SCD # Code status is full code. # Pt wants to go home, d/w her that she had hypoglycemic, neeed to be mornitor 24 hr, once her FS stable she can be d/c. Pt voiced understanding but upset that she can't go home, her father agreed onplan. However later in PM, Patient desires to leave against medical advice. I came to d/w pt at length. The patient has expressed an understanding of these risks and the evaluation and treatment that we would like to perform. The patient is able to repeat the risks, and desired treatment being refused back to me. Patient has the capacity to understand, is clearly competent, but continues to want to leav e, and is not intoxicated. The patient was advised that there is always a possibility that a more serious condition could develop. The patient was instructed to arrange mandatory close follow-up with their physician, or with the referral physician given within 24 hours. The patient is encouraged to return immediately to the Emergency Department for completion of the work-up if they change their mind. Consults: pulmonary/intensive care and Endo and EP Code Status: Full Code Procedures: Procedures (From admission, onward) CT ABD+PEL W CON Today THYROID STIM HORMONE, TSH Routine ECG 12-LEAD Routine URINALYSIS Routine BASIC METABOLIC PANEL Routine MAGNESIUM Routine PHOSPHORUS,INORGANIC PHOSPHATE Routine ELECTROLYTE PANEL Routine MAGNESIUM Routine CBC, AUTO, NO DIFF Routine BASIC METABOLIC PANEL Routine MAGNESIUM Routine PHOSPHORUS,INORGANIC PHOSPHATE Routine HEMOGLOBIN GLYCOSYLATED Routine BETA-HYDROXYBUTYRATE Routine MAGNESIUM Routine, Status: Canceled PHOSPHORUS,INORGANIC PHOSPHATE Routine, Status: Canceled CHLAMYDIA GC RNA Routine VAGINITIS SCREEN Routine CYTOPATH CERV/VAG THIN LAYER Routine US RETROPERITONEAL COMP Today HIV - RAPID Routine SYPHILIS/RPR/VDRL; QUAL Routine MRSA SCREENING Routine LIPID PANEL Routine URINALYSIS Routine URINE TEST Routine ECG 12-LEAD Routine USE ECHOCARDIOGRAM Routine COMPREHENSIVE METABOLIC PANEL Routine CK (CPK) Routine TROPONIN, QUANT Routine MAGNESIUM Routine LACTIC ACID Routine PHOSPHORUS,INORGANIC PHOSPHATE Routine THYROID STIM HORMONE, TSH Routine LIPASE Routine CBC W/DIFF AUTOMATED Routine PROTHROMBIN TIME, VENOUS Routine PARTIAL THROMBOPLASTIN TIME,PTT Routine CULTURE, BACTERIA, BLOOD (BLOOD CULTURE X2) Routine CULTURE, BACTERIA, BLOOD (BLOOD CULTURE X2) Routine CULTURE URINE Routine XR CHEST PORTABLE STAT BASIC METABOLIC PANEL Routine, Status: Canceled PHOSPHORUS,INORGANIC PHOSPHATE Routine, Status: Canceled BETA-HYDROXYBUTYRATE Routine, Status: Canceled BLOOD GAS VENOUS Routine, Status: Canceled Referrals: No orders of the defined types were placed in this encounter. Significant Diagnostic Studies: Ct Abd+pel W Con Result Date: 04/10/2018 PATIENT NAME: STEPH ROBERTO EXAM: CT abdomen/pelvis with contrast DATE OF EXAM: 04/10/2018 COMPARISON EXAM: None INDICATION: Pelvic pain, vaginal discharge, evaluation for PID. Negative test. TECHNIQUE: Axial images obtained from the xiphoid process to pubic symphysis with intravenous injection of 100 cc Isovue 370 contrast using low-dose CT technique. Sagittal and coronal reconstruction. FINDINGS: CT ABDOMEN: Shortness portions of the lung bases are unremarkable. The liver is normal in size. No focal intrahepatic lesions are demonstrated. The gallbladder is been removed. No biliary duct dilatation. The spleen, pancreas, and the adrenal glands are unremarkable. Kidneys demonstrate no evidence of abnormal striated nephrogram or perirenal inflammatory stranding or fluid. There is no evidence of ureteral stone nor hydronephrosis on either side. No evidence of renal mass lesion.There is no acute inflammatory change, abscess or ascites. Bowel gas pattern suggests mild diffuse ileus. No evidence of mechanical bowel obstruction or perforation. No evidence of adenopathy. Abdominal aorta and IVC are unremarkable. CT PELVIS: The uterus is retroverted but otherwise unremarkable.There is a focal dense rim cystic structure in the right adnexa suggesting a recently ruptured right ovarian follicle. No left adnexal mass or fluid collection. Small amount of slightly high attenuation pelvic ascites suggesting small amount of hemorrhagic ascites related to recent follicular rupture. No evidence of inflammatory change or abscess. IMPRESSION: 1. NO ACUTE INFLAMMATORY CHANGE, NOR ABSCESS. 2. DENSE RIM CYSTIC STRUCTURE WITHIN THE RIGHT OVARY ASSOCIATED WITH SMALL AMOUNT OF HEMORRHAGIC ASCITES IN THE PELVIS SUGGESTING RECENT RUPTURED OVARIAN FOLLICLE. 3. BOWEL GAS PATTERN SUGGESTING ILEUS. NO MECHANICAL BOWEL OBSTRUCTION OR PERFORATION. Signed: Zain Calles MD Interpreted By: Zain Calles MD,04/10/2018 6:47 PM Order Doctor: AISSATOU Oconnell Echocardiogram Result Date: 04/09/2018 Echocardiography Report Pat.Name: STEPH ROBERTO Pat.ID: [id number] St.Date: 04/08/2018 Refer.MD: LISSY GODFREY Exam Time: 2:27:00 PM Study Type:ECHO WITH CARDIAC DOPPLER COMP Height: 165cmWeight: 50kg BSA: 1.53 m2 Age: 5 1990,27Y Sex: FEMALE BP: 108/57 HR: 97 bpm Sonogrphr: Noel Alfonso [facility] Pat. Stat.:Inpatient Room: [place] [address] CPT: 85737 Reason for Study:LV function assessment Procedures:2D, M-mode, Doppler, Color Flow, Portable Race: W ++++++++++++++++++++++++++++++++++++ SUMMARY: ++++++++++++++++++++++++++++++++++++ The calculated ejection fraction is 67%. Left ventricular diastolic function is normal. The right ventricular size is normal. Right ventricular systolic function is normal. Right ventricular systolic pressure is 25 mmHg. No significant valve stenosis or regurgitation. ++++++++++++++++++++++++++++++++++++ FINDINGS: ++++++++++++++++++++++++++++++++++++ LV:The left ventricular size is normal. The left ventricular systolic function is normal. The calculated ejection fraction is 67%. The septal E/e' is indeterminate at 8-15. The lateral E/e' is normal at <8. The average E/e' is normal at <8. Left ventricular diastolic function is normal. Left ventricular filling pressure is normal. Overall wall motion is normal. All uribe are normal WM: Wall motion appears normal in all segments. LVOT: The left ventricular outflow tract size is normal. The LVOT stroke volume index is 41.8 ml/m2. RV: The right ventricular size is normal. Right ventricular systolic function is normal. Right ventricular systolic pressure is 25 mmHg. TAPSE = 21.1mm (<16 mm indicates systolic RV dysfunction). LA: The left atrial volume is normal ( less than 34 ml/M2). RA: Right atrial size is normal. YORDY: No evidence of pericardial effusion. AO: Aortic root is not dilated. PA: Estimated right atrial pressure of 3 mmHg. PVn: The pulmonary vein doppler wave form is normal suggestive of normal left atrial pressures. SVn: Inferior vena cava shows >50% collapse withrespiration consistent with normal right atrial pressure. AV: The aortic valve is trileaflet. No evidence of aortic valve stenosis. No evidence of aortic valve regurgitation. MV: Trace mitral regurgi tation. No evidence of mitral stenosis. PV: The pulmonic valve is normal There is trace pulmonic regurgitation TV: The tricuspid valve appears structurally normal. There is trace tricuspid regurgitation. ++++++++++++++++++++++++++++++++++++ MEASUREMENTS: ++++++++++++++++++++++++++++++++++++ DOPPLERLVOT LVOTpkPG 5 mmHg LVOTmnPG 2 mmHg LVOTpkVel 113 cm/s (70-110)* LVOT SV 64 ml Index 41.8 ml/m2 LVOT TVI 20.5 cm LVOT CO 106.6688 l/min AV Forward Flow AV TVI 25.2 cm AV pkPG 7 mmHg AV pkVel 135 cm/s (100-170) Area (TVI) 2.55 cm2 (3-5)* Index 1.67 cm2/m2 AV mnVel 92.8 cm/s Area (Jesus) 2.63 cm2 (3-5)* AV mnPG 4 mmHg MV Forward Flow MV DeTm 151 msec MV E/A 1 MV mnPG 3 mmHg MV pkE 90.7 cm/s (60-130) MV pkPG 6 mmHg MV pkA 94.1 cm/s TV Regurg Flow TV pkPG 22 mmHg TV pkVel 235 cm/s (30-70)* Lat E'Lat e 14.1 cm/s Lat E/E' Lat E/e 6.4 Med E' Med e 9.57 cm/s Med E/E' Med E/e 9.5 Aortic Valve Aortic Valve Ar 1.67 Aortic Valve Ve 0.84 AV DI Value 0.8 DORIS (VTI) Index Value 1.67 LV Mass 2D Value 79.7 g LV Mass Nuosg3Z Value 52.1 g/m2 RA Volume Atrial Vaz 3.99 cm Atrial Vaz 8.17 cm2 Atrial Vaz 14.2 ml Right Ventricle Right Ventricle 13.5 cm/s 2D Left Ventricle LVIDd 4.08 cm (3.6-5.2)LV EF(Bi-Plane) 66.5 % (55-75) LVIDs 2.56 cm (2.3-3.9) LVPW LVPWd 0.706 cm LVPWth 43.1 % LVPWs 1.01cm Ventricular Septum IVSd 0.676 cm IVSs 0.879 cm Aorta Ao Rtd 2.9 cm (zsc 1.4) Ao Asc 2.6 cm (zsc 1.6) Index 1.7 cm/m2 LVOT LVOT 2 cm Ratios IVS Aortic Sinotubular Junction Diameter 2.51 cm LA Biplane LAVol I BP 17.6 ml/m2 Right Ventricle Right Ventricle 2.46 cm Right Ventricle 2.53 cm Major [place] 6.37 cm MMODE TA Tricuspid Annul 2.11 cm ++++++++++++++++++++++++++++++++++++ WALL MOTION: ++++++++++++++++++++++++++++++++++++ RESTING WALL MOTION: All uribe are normal Wall Index = 1 Signed 04/09/2018 06:59 AM Adama Hicks M.D. Xr Chest Portable Result Date: 04/08/2018 Exam description: Chest 1 view Exam Time : 1407 hours Comparison Film : 11/28/2015 Indications: DKA, SOB Findings: Semiupright portable AP film obtained.Heart and mediastinum within normal limits. Lungs clear of active disease. No consolidation, CHF or effusions. No pneumothorax. No acute bony abnormality. IMPRESSION: No active chest disease. Interpreted By: Israel Huber MD, 04/08/2018 2:30 PM Order Doctor: LISSY GODFREY Us Retroperitoneal Comp Result Date: 04/08/2018 EXAM: ULTRASOUND BILATERAL KIDNEYS AND BLADDER CLINICAL STATEMENT: Evaluate for Pyelonephritis COMPARISON: None available. TECHNIQUE: Focused sonographic images of the kidneys and bladder are obtained to assess grayscale appearance color flow. FINDINGS: The right kidney measures 9.7 x 4.4 x 4.7 cm.The right renal parenchymal echogenicity is unremarkable . There is no evidence for masses, calculi, or hydronephrosis.. There is appropriate color flow to the right kidney. The left kidney measures 11.7 x 5.2 x 4.6 cm. The left renal parenchymal echogenicity is unremarkable . There is no evidence for masses, calculi, or hydronephrosis. . There is appropriate color flow to the left kidney. The handy dder is physiologically distended. There is normal wall thickness. The Left and right ureteral jetsis identified. IMPRESSION: Unremarkable ultrasound of the kidneys Nonvisualization of the ureters Interpreted By: Harpreet Khan, 04/08/2018 3:22 PM Order Doctor: ANSON DOMINIQUE Discharge Exam: Filed Vitals: 04/11/18 0442 04/11/18 0500 04/11/18 0617 04/11/18 1241 BP: (!) 85/50 100/65 115/71 Pulse: 77 Resp: 20 Temp: 98.5 ??F (36.9 ??C) 98.1 ??F (36.7 ??C) TempSrc: Oral SpO2: 98% 100% Weight: Height: PainSc: Patient sleeping (0-3) General Appearance: : No Apparent Distress: Well Developed: Thin skin: : Normal Color: Warm/Dry Head: : Normocephalic Eyes: : Conjunctiva Clear: PERRL/EOMI ENT: : Ears Normal: Nose Normal: Oropharynx Normal Neck: : Non-Tender: Supple Chest and Respiratory: : Airway Patent: Breath Sounds Equal: Lungs Clear-Auscultation Heart: : Regular Rate/Rythm Abdominal: No Organomegaly Non-Tender Normal Bowel Sounds Soft Vascular: : Normal Capillary Refill: Normal Peripheral Musculoskeletal: : Normal Range of Motion Neurologic: : Alert and Oriented X3: Generalized motor weakness but no Gross Motor Deficits Mental Status: : Normal Affect Back: : Non Tender Genital-Rectal : Deferred Rectal: : Deferred Disposition: Leave AMA Patient Instructions: Current Discharge Medication List START taking these medications Details metroNIDAZOLE 500 MG tablet Take 1 tablet (500 mg total) by mouth every 12 (twelve) hours for 4 days. Qty: 8 tablet, Refills: 0 nitrofurantoin, macrocrystal-monohydrate, 100 MG capsule Take 1 capsule (100 mg total) by mouth every 12 (twelve) hours for 2 days. Qty: 4 capsule, Refills: 0 CONTINUE these medications which have NOT CHANGED Details amoxicillin-clavulanate 875-125 MG tablet Take 1 tablet by mouth 2 (two) times daily. benzonatate 100 MG capsule Take 200 mg by mouth 3 (three) times daily as needed for Cough. insulin glargine 100 UNIT/ML injection (VIAL) Inject 20 Units into the skin 2 (two) times daily. insulin lispro 100 UNIT/ML injection (VIAL) Inject 10 Units into the skin 3 (three) times daily before meals. This is average dose, but uses sliding scale with it B-D UF III MINI PEN NEEDLES 31G X 5 MM [facility] USE FOR INJECTIONS FOUR TIMES A DAY Refills: 5 Blood Glucose Monitoring Suppl (ONE TOUCH ULTRA MINI) w/Device Kit see administration instructions. Refills: 0 KETOCARE Strip USE FOR TESTING DIRECTED Refills: 0 NOVOLOG FLEXPEN 100 UNIT/ML injection (PEN) INJECT THREE TIMES A DAY AFTER MEALS PER INSULIN TO CARB RATIO AND SLIDING SCALE. UP TO 90 UNITS DAILY Refills: 0 ondansetron 4 MG disintegrating tablet dissolve 1 tablet BY MOUTH EVERY 6 HOURS NEEDED FOR NAUSEA / VOMITING Refills: 0 ONE TOUCH ULTRA TEST STRIPS test strip CHECK BLOOD SUGARS FOUR TIMES A DAY NEEDED Refills: 1 ONETOUCH DELICA LANCETS 33G Misc TEST BLOOD BLOOD SUGAR FOUR TIMES A DAY AND NEEDED Refills: 1 Activity: activity as tolerated Diet: diabetic diet Wound Care: none needed Signed: SANJANA SAMSON MD 04/11/2018 4:59 PM documented in this encounter Medications at Time of Discharge amoxicillin-clavula debbie 875-125 MG tablet Take 1 tablet by mouth 2 (two) times daily. 06/04/20 19 B-D UF III MINI PEN NEEDLES 31G X 5 MM Misc USE FOR INJECTIONS FOUR TIMES A DAY 5 8 03/01/20 20 benzonatate 100 MG capsule Take 200 mg by mouth 3 (three) times daily as needed for Cough. 06/04/20 19 Blood Glucose Monitoring Suppl (ONE TOUCH ULTRA MINI) w/Device Kit see administration instructions. 0 7 03/01/20 20 insulin glargine 100 UNIT/ML injection (VIAL) Inject 20 Units into the skin 2 (two) times daily. 12/04/19 20 insulin lispro 100 UNIT/ML injection (VIAL) Inject 10 Units into the skin 3 (three) times daily before meals. This is average dose, but uses sliding scale with it 12/04/19 KETOCARE Strip USE FOR TESTING DIRECTED 0 7 03/01/20 20 metroNIDAZOLE 500 MG tablet Take 1 tablet (500 mg total) by mouth every 12 (twelve) hours for 4 days. 8 tablet 8 04/15/20 18 nitrofurantoin, macrocrystal-monohy drate, 100 MG capsule Take 1 capsule (100 mg total) by mouth every 12 (twelve) hours for 2 days. 4 capsule 8 04/13/20 18 NOVOLOG FLEXPEN 100 UNIT/ML injection (PEN) INJECT THREE TIMES A DAY AFTER MEALS PER INSULIN TO CARB RATIO AND SLIDING SCALE. UP TO 90 UNITS DAILY 0 8 07/27/19 20 ondansetron 4 MG disintegrating tablet dissolve 1 tablet BY MOUTH EVERY 6 HOURS NEEDED FOR NAUSEA / VOMITING 0 8 10/10/19 20 ONE TOUCH ULTRA TEST STRIPS test strip CHECK BLOOD SUGARS FOUR TIMES A DAY NEEDED 1 8 03/01/20 20 ONETOUCH DELICA LANCETS 33G Misc TEST BLOOD BLOOD SUGAR FOUR TIMES A DAY AND NEEDED 1 7 03/01/20 20 documented as of this encounter Progress Notes * Wallace Neville, MAIDA - 04/11/2018 2:43 PM CDT Gastroenterology Progress Note Steph Roberto is a 27-year-old female patient. Subjective:Patient denies any nausea or vomiting, but states that her abdominal pain is unchanged. No diagnosis found. Past Medical History: Diagnosis Date ??? Anxiety ??? Bronchitis ??? Diabetes mellitus ??? Gastrointestinal ulcer ??? GERD (gastroesophageal reflux disease) ??? Hx of insertion of insulin pump has been removed ??? Hypercholesteremia ??? Hypotension ??? UTI (urinary tract infection) Current Facility-Administered Medications Medication Dose Route Frequency Provider Last Rate Last Dose ??? acetaminophen (TYLENOL) tablet 650 mg 650 mg Oral Q4H PRN Lissy Godfrey APRN 650 mg at 04/09/182127 Or ??? acetaminophen (TYLENOL) suppository 650 mg 650 mg Rectal Q4H PRN Lissy Godfrey APRN Or ??? acetaminophen (TYLENOL) 160 MG/5ML solution 650 mg 650 mg Oral Q4H PRN Lissy Godfrey APRN ??? dextrose (GLUTOSE) 40 % oral gel 15-30 g 15-30 g Oral PRN Lissy Godfrey APRN ??? dextrose 50 % solution 12.5 g 12.5 g Intravenous Once Sanjana Samson MD ??? dextrose 50 % solution 25-50 mL 25-50 mL Intravenous PRN Lissy Godfrey APRN ??? docusate sodium (COLACE) capsule 100 mg 100 mg Oral Daily Lissy Godfrey APRN 100 mg at 04/11/18 0759 ??? glucagon injection 1 mg 1 mg Intramuscular Once PRN Lissy Godfrey APRN ??? hydrocodone-acetaminophen (NORCO) 5-325 MG tablet 1 tablet 1 tablet Oral Q6H PRN Rand Loredo APRN 1 tablet at 04/11/18 0954 ??? insulin glargine (LANTUS) injection 20 Units 20 Units Subcutaneous Nightly at bedtime Hui Sampson MD ??? insulin lispro (HUMALOG) injection 1-4 Units 1-4 Units Subcutaneous TID AC Hui Sampson MD ??? insulin lispro (HUMALOG) injection 6 Units 6 Units Subcutaneous TID AC Hui Sampson MD ??? ipratropium-albuterol (DUONEB) 0.5-2.5 (3) MG/3ML nebulizer solution 3 mL 3 mL Nebulization Q4HPRN Lissy Godfrey, PAYROLL [employer] BENEFITS SPECIALIST ??? magnesium oxide (MAG-OX) tablet 400 mg 400 mg Oral Daily Sanjana Samson MD 400 mg at 04/11/18758 ??? metoclopramide (REGLAN) tablet 10 mg 10 mg Oral BID AC Sanjana Samson MD ??? metroNIDAZOLE (FLAGYL) tablet 500 mg 500 mg Oral 2 times per day Saba Judge MD 500 mg at 04/11/18758 ??? nitrofurantoin (macrocrystal-monohydrate) (MACROBID) capsule 100 mg 100 mg Oral 2 times per dayAnson Dominique DO 100 mg at 04/11/18758 ??? ondansetron (ZOFRAN) injection 4 mg 4 mg Intravenous Q6H PRN Eder Sexton MD 4 mg at 04/09/18 0557 ??? pantoprazole (PROTONIX) EC tablet 40 mg 40 mg Oral Daily Sanjana Samson MD 40 mg at 04/11/18 0800 ??? pravastatin (PRAVACHOL) tablet 20 mg 20 mg Oral QPM Lissy Godfrey, PAYRO[employer] AND BENEFITS SPECIALIST 20 mg at ??? senna-docusate (SENOKOT-S) 8.6-50 MG tablet 1 tablet 1 tablet Oral Nightly at bedtime Lissy Godfrey, PA[employer] AND BENEFITS SPECIALIST 1 tablet at 04/09/182128 Allergies Allergen Reactions ??? Peanut-Containing Drug Products Anaphylaxis ??? Latex Hives Principal Problem: Diabetic ketoacidosis SNOMED CT(R): DIABETIC KETOACIDOSIS Active Problems: High anion gap metabolic acidosis SNOMED CT(R): METABOLIC ACIDOSIS, INCREASED ANION GAP (IAG) Type [address](R): TYPE 1 DIABETES MELLITUS Hyponatremia SNOMED CT(R): HYPONATREMIA Hyperglycemia SNOMED CT(R): HYPERGLYCEMIA Hyperlipidemia SNOMED CT(R): HYPERLIPIDEMIA Smoker SNOMED CT(R): SMOKER Anxiety SNOMED CT(R): ANXIETY Depression SNOMED CT(R): DEPRESSIVE DISORDER UTI (urinary tract infection) SNOMED CT(R): URINARY TRACT INFECTIOUS DISEASE Review of Systems See HPI for positives Constitutional: Negative for chills, fever and weight loss. HENT: Negative for nosebleeds and sore throat. Eyes: Negative for discharge. Respiratory: Negative for cough and shortness of breath. Cardiovascular: Negative for chest pain and palpitations. Genitourinary: Negative for hematuria. Musculoskeletal: Negative for back pain and joint pain. Skin: Negative for rash. Neurological: Negative for dizziness and loss of consciousness. Endo/Heme/Allergies: Does not bruise/bleed easily. Psychiatric/Behavioral: Negative for memory loss. The patient is not nervous/anxious. All other systems reviewed and are negative. Blood pressure 115/71, pulse 77, temperature 98.1 ??F (36.7 ??C), resp. rate 14, height 5' 5 (1.651 m), weight 50.4 kg (111 lb 1.8 oz), SpO2 100 %. Physical Exam Constitutional: Patient is oriented to person, place, and time. Appears well- developed and well-nourished. Head: Normocephalic and atraumatic. Mouth/Throat: Oropharynx is clear and moist. Eyes: Conjunctivae are normal. Pupils are equal, round, and reactive to light. No scleral icterus. Cardiovascular: Normal rate, regular rhythm and normal heart sounds. Pulmonary/Chest: Effort normal and breath sounds normal. Abdominal: Soft. Tenderness. Musculoskeletal: He exhibits no edema. Lymphadenopathy: No cervical adenopathy. Neurological: Patient is alert and oriented to person, place, and time. Skin: No rash noted. No erythema. Labs: Recent Labs Lab 04/08/18 1241 04/09/18 0405 04/10/18 0330 04/11/18 0748 WBC 8.0 5.9 3.8* 2.6* RBC 4.09* 3.31* 3.67* 3.95* HGB 12.6 10.2* 11.3* 12.1 HCT 37.2 29.1* 32.8* 34.5* MCV 91.0 87.9 89.4 87.3 MCH 30.8 30.8 30.8 30.6 MCHC 33.9 35.1 34.5 35.1 PLT 210 210 182 167 RDW 11.9 11.9 11.9 11.7 MPV 10.3 9.7 9.8 9.6 LYMC 1.81 -- -- -- MONOC 0.49 -- -- -- EOSC 0.04 -- -- -- BASOC 0.06 -- -- -- Recent Labs Lab 04/08/18 1213 04/09/18 0405 04/10/18 0329 04/11/18 0748 NA 132* < > 141 136 136 139 K 4.4 < > 3.6 4.2 4.2 3.5 CL 104 < > 113* 105 105 104 CO2 12.3* < > 19.2* 24.5 24.3 29.3 AGAP 15.7 < > 8.8 6.5 6.7 5.7 BUN 16 < > 5* 5* 5* CR 0.95 < > 0.62 0.63 0.55 GFRNON 81* < > >90 >90 >90 GFR >90 < > >90 >90 >90 GLU 264* < > 171* 245* 55* CA 7.8* < > 7.4* 8.1* 8.4 TP 7.8 -- -- -- -- ALB 3.7 -- -- -- -- TBIL 0.6 -- -- -- -- ALKP 85 -- -- -- -- AST 18 -- -- -- -- ALT 27 -- -- -- -- < > = values in this interval not displayed. Recent Labs Lab 04/08/18 1313 PTT 24.6 INR 1.1 Radiology: Ct Abd+pel W Con Result Date: 04/10/2018 PATIENT NAME: STEPH ROBERTO EXAM: CT abdomen/pelvis with contrast DATE OF EXAM: 04/10/2018 COMPARISON EXAM: None INDICATION: Pelvic pain, vaginal discharge, evaluation for PID. Negative test. TECHNIQUE: Axial images obtained from the xiphoid process to pubic symphysis with intravenous injection of 100 cc Isovue 370 contrast using low-dose CT technique. Sagittal and coronal reconstruction. FINDINGS: CT ABDOMEN: Shortness portions of the lung bases are unremarkable. The liver is normal in size. No focal intrahepatic lesions are demonstrated. The gallbladder is been removed. No biliary duct dilatation. The spleen, pancreas, and the adrenal glands are unremarkable. Kidneys demonstrate no evidence of abnormal striated nephrogram or perirenal inflammatory stranding or fluid. There is no evidence of ureteral stone nor hydronephrosis on either side. No evidence of renal mass lesion.There is no acute inflammatory change, abscess or ascites. Bowel gas pattern suggests mild diffuse ileus. No evidence of mechanical bowel obstruction or perforation. No evidence of adenopathy. Abdominal aorta and IVC are unremarkable. CT PELVIS: The uterus is retroverted but otherwise unremarkable.There is a focal dense rim cystic structure in the right adnexa suggesting a recently ruptured right ovarian follicle. No left adnexal mass or fluid collection. Small amount of slightly high attenuation pelvic ascites suggesting small amount of hemorrhagic ascites related to recent follicular rupture. No evidence of inflammatory change or abscess. IMPRESSION: 1. NO ACUTE INFLAMMATORY CHANGE, NOR ABSCESS. 2. DENSE RIM CYSTIC STRUCTURE WITHIN THE RIGHT OVARY ASSOCIATED WITH SMALL AMOUNT OF HEMORRHAGIC ASCITES IN THE PELVIS SUGGESTING RECENT RUPTURED OVARIAN FOLLICLE. 3. BOWEL GAS PATTERN SUGGESTING ILEUS. NO MECHANICAL BOWEL OBSTRUCTION OR PERFORATION. Signed: Zain Calles MD Interpreted By: Zain Calles MD,04/10/2018 6:47 PM Order Doctor: AISSATOU Oconnell Echocardiogram Result Date: 04/09/2018 Echocardiography Report Pat.Name: PARDEEPRAFATTabitha Huffman Pat.ID: [id number] St.Date: 04/08/2018 Refer.:LISSY GODFREY Exam Time: 2:27:00 PM Study Type:ECHO WITH CARDIAC DOPPLER COMP Height: 165cm Weight: 50kg BSA: 1.53 m2 Age: 5 1990,27Y Sex: FEMALE BP: 108/57 HR: 97 bpm Sonogrphr: Noel Alfonso [facility] Pat. Stat.:Inpatient Room: [place] [address] CPT: 51818 Reason for Study:LV function assessment Procedures:2D, M-mode, Doppler, Color Flow, Portable Race: W ++++++++++++++++++++++++++++++++++++ SUMMARY: ++++++++++++++++++++++++++++++++++++ The calculated ejection fraction is 67%. Left ventricular diastolic function is normal. The right ventricular size is normal. Right ventricular systolic function is normal. Right ventricular systolic pressure is 25 mmHg. No significant valve stenosis or regurgitation. ++++++++++++++++++++++++++++++++++++ FINDINGS: ++++++++++++++++++++++++++++++++++++ LV: The left ventricular size is normal. The left ventricular systolic function is normal. The calculated ejection fraction is 67%. The septal E/e' is indeterminate at 8-15. The lateral E/e' is normal at <8. The average E/e' is normal at <8. Left ventricular diastolic function is normal. Left ventricular filling pressure is normal. Overall wall motion is normal. All uribe are normal WM: Wall motion appears normal in all segments. LVOT: The left ventricular outflow tract size is normal. The LVOT stroke volume index is 41.8 ml/m2. RV: The right ventricular size is normal. Right ventricular systolic function is normal. Right ventricular systolic pressure is 25 mmHg. TAPSE = 21.1mm (<16 mm indicates systolic RV dysfunction). LA: The left atrial volume is normal ( less than 34 ml/M2). RA: Right atrial size is normal. YORDY: No evidence of pericardial effusion. AO: Aortic root is not dilated. PA: Estimated right atrial pressure of 3 mmHg. PVn: The pulmonary vein doppler wave form is normal suggestive of normal left atrial pressures. SVn: Inferior vena cava shows >50% collapse with respiration consistent with normal right atrial pressure. AV: The aortic valve is trileaflet. No evidence of aortic valve stenosis. No evidence of aortic valve regurgitation. MV: Trace mitral regurgitation. No evidence of mitral stenosis. PV: The pulmonic valve is normal There is trace pulmonic regurgitation TV: The tricuspid valve appears structurally normal. There is trace tricuspid regurgitation. ++++++++++++++++++++++++++++++++++++ MEASUREMENTS: ++++++++++++++++++++++++++++++++++++ DOPPLER LVOT LVOTpkPG 5 mmHg LVOTmnPG 2 mmHg LVOTpkVel 113 cm/s (70-110)* LVOT SV 64 ml Index 41.8 ml/m2 LVOT TVI 20.5 cm LVOT CO 106.6688 l/min AV Forward Flow AV TVI 25.2 cm AV pkPG 7 mmHg AV pkVel 135 cm/s (100-170) Area (TVI) 2.55 cm2 (3-5)* Index 1.67 cm2/m2 AV mnVel 92.8 cm/s Area (Jesus) 2.63 cm2 (3-5)* AV mnPG 4 mmHg MV Forward Flow MV DeTm 151 msec MV E/A 1 MV mnPG 3 mmHg MV pkE 90.7 cm/s (60-130) MV pkPG 6 mmHg MV pkA 94.1 cm/s TV Regurg Flow TV pkPG 22 mmHg TV pkVel 235 cm/s (30-70)* Lat E'Lat e 14.1 cm/s Lat E/E' Lat E/e 6.4 Med E' Med e 9.57 cm/s Med E/E' Med E/e 9.5 Aortic Valve Aortic Valve Ar 1.67 Aortic Valve Ve 0.84 AV DI Value 0.8 DORIS (VTI) Index Value 1.67 LV Mass 2D Value 79.7 g LV Mass Fyppj1K Value 52.1 g/m2 RA Volume Atrial Vaz 3.99 cm Atrial Vaz 8.17 cm2 Atrial Vaz 14.2 ml Right Ventricle Right Ventricle 13.5 cm/s 2D Left Ventricle LVIDd 4.08 cm (3.6-5.2) LV EF(Bi-Plane) 66.5 % (55-75) LVIDs 2.56 cm (2.3-3.9) LVPW LVPWd 0.706 cm LVPWth 43.1 % LVPWs 1.01 cm Ventricular Septum IVSd 0.676 cm IVSs 0.879 cm Aorta Ao Rtd 2.9 cm (zsc 1.4) Ao Asc 2.6 cm (zsc 1.6) Index 1.7 cm/m2 LVOT LVOT 2 cm Ratios IVS Aortic Sinotubular Junction Diameter 2.51 cm LA Bip christ LAVol I BP 17.6 ml/m2 Right Ventricle Right Ventricle 2.46 cm Right Ventricle 2.53 cm Major [place] 6.37 cm MMODE TA Tricuspid Annul 2.11 cm ++++++++++++++++++++++++++++++++++++ WALL MOTION: ++++++ ++++++++++++++++++++++++++++++ RESTING WALL MOTION: All uribe are normal Wall Index = 1 Signed 04/09/2018 06:59 AM Adama Hicks M.D. Xr Chest Portable Result Date: 04/08/2018 Exam description: Chest 1 view Exam Time : 1407 hours Comparison Film : 11/28/2015 Indications: DKA, SOB Findings: Semiupright portable AP film obtained.Heart and mediastinum within normal limits. Lungs clear of active disease. No consolidation, CHF or effusions. No pneumothorax. No acute bony abnormality. IMPRESSION: No active chest disease. Interpreted By: Israel Huber MD, 04/08/2018 2:30 PM Order Doctor: LISSY GODFREY Us Retroperitoneal Comp Result Date: 04/08/2018 EXAM: ULTRASOUND BILATERAL KIDNEYS AND BLADDER CLINICAL STATEMENT: Evaluate for Pyelonephritis COMPARISON: None available. TECHNIQUE: Focused sonographic images of the kidneys and bladder are obtained to assess grayscale appearance color flow. FINDINGS: The right kidney measures 9.7 x 4.4 x 4.7 cm.The right renal parenchymal echogenicity is unremarkable . There is no evidence for masses, calculi, or hydronephrosis.. There is appropriate color flow to the right kidney. The left kidney measures 11.7 x 5.2 x 4.6 cm. The left renal parenchymal echogenicity is unremarkable . There is no evidence for masses, calculi, or hydronephrosis. . There is appropriate color flow to the left kidney. The handy dder is physiologically distended. There is normal wall thickness. The Left and right ureteral jetsis identified. IMPRESSION: Unremarkable ultrasound of the kidneys Nonvisualization of the ureters Interpreted By: Harpreet Khan, 04/08/2018 3:22 PM Order Doctor: ANSON DOMINIQUE Assessment /Recommendations: Patient is a 27-year-old female with a past medical history of DMI, HLD, GERD, anxiety, depression,smoker, and UTI who presented to [facility] ICU from [facility] in [place] for DKA. GI was consulted for abdominal pain, nausea, and vomiting. CT scan revealed bowel gas pattern suggesting ileus,but no bowel obstruction or perforation; small amount of hemorrhagic ascites in the right ovary suggesting recent ruptured ovarian follicle. ?? -Miralax daily for constipation -Minimize pain medication -PPI daily-continue PPI at discharge -Possible EGD if there is a significant drop in hemoglobin or patient experiences overt bleeding. WALLACE NEVILLE NP 04/11/2018 Cosigned by Aissatou Hughes MD at 04/11/2018 3:20 PM CDT Associated attestation - Aissatou Hughes MD - 04/11/2018 3:20 PM CDT I, AISSATOU HUGHES MD, performed an examination of the patient and discussed the management with the Advanced Practice Provider (ERIC). I reviewed the ERIC's progress note and agree with the findings andplan of care, except as I have documented. * Scott Gonzalez MD - 04/11/2018 1:51 PM CDT Electrophysiology Progress Note ID: Steph Roberto is a 27-year-old female : 1990 LOS: 3 days SUBJECTIVE Telemetry revealed possibly atrial flutter, atypical in nature at a cycle length of 200 milliseconds with apparent approximately 5-1 AV conduction. I am not, however, convinced that it is in fact an atrial arrhythmia as the QRS cycle length does not seem to change virtually at all. There were minorfluctuations in the RR interval, but there does not appear to be any difference in the RR interval compared to the cycle length of the QRS not associated with the deflections on the baseline. Cannot rule out the possibility of movement of the arms or leads during this timeframe. On the other hand, I am not convinced that is not a problem. In any event, it was very short duration, less than 15 seconds and asymptomatic occurring in the timeframe of diabetic ketoacidosis. ?? 04-11-2018 - nsr, no arrhythmia noted REVIEW OF SYSTEMS: Review of Systems Constitutional: Negative. HENT: Negative. Respiratory: Negative. Cardiovascular: Negative. Gastrointestinal: Negative. Genitourinary: Negative. Skin: Negative. Neurological: Negative. Psychiatric/Behavioral: Negative. All other systems reviewed and are negative. Medications: Scheduled Meds: ??? dextrose 12.5 g Intravenous Once ??? docusate sodium 100 mg Oral Daily ??? insulin glargine 20 Units Subcutaneous Nightly at bedtime ??? insulin lispro 1-4 Units Subcutaneous TID AC ??? insulin lispro 6 Units Subcutaneous TID AC ??? magnesium oxide 400 mg Oral Daily ??? metoclopramide 10 mg Oral BID AC ??? metroNIDAZOLE 500 mg Oral 2 times per day ??? nitrofurantoin (macrocrystal-monohydrate) 100 mg Oral 2 times per day ??? pantoprazole 40 mg Oral Daily ??? pravastatin 20 mg Oral QPM ??? senna-docusate 1 tablet Oral Nightly at bedtime Continuous Infusions: PRN Meds: acetaminophen OR acetaminophen OR acetaminophen, dextrose, dextrose, glucagon, hydrocodone-acetaminophen, ipratropium-albuterol, ondansetron OBJECTIVE Intake/Output last 3 shifts: I/O last 3 completed shifts: In: 960 [P.O.:960] Out: 940 [Urine:940] Today's Weight: Last Recorded Weight 04/10/18 0427 Weight: 50.4 kg (111 lb 1.8 oz) Weight change in the last 24 hours: 0.5 kg (1 lb 1.6 oz) Vital signs in the last 24 hours: Temp: [98.1 ??F (36.7 ??C)-98.7 ??F (37.1 ??C)] 98.1 ??F (36.7 ??C) Pulse: [73-92] 77 Resp: [12-14] 14 BP: (85-119)/(50-75) 115/71 Physical Exam Constitutional: She is oriented to person, place, and time. She appears well- developed and well-nourished. No distress. HENT: Nose: No mucosal edema. Mouth/Throat: Oropharynx is clear and moist and mucous membranes are normal. No oropharyngeal exudate. Neck: Neck supple. No JVD present. Carotid bruit is not present. Cardiovascular: Normal rate, regular rhythm, S1 normal, S2 normal and intact distal pulses. No extrasystoles are present. Exam reveals no gallop. No murmur heard. Pulmonary/Chest: Effort normal and breath sounds normal. No respiratory distress. Abdominal: She exhibits no mass. There is no hepatosplenomegaly. There is no tenderness. Musculoskeletal: She exhibits no deformity. Neurological: She is alert and oriented to person, place, and time. Skin: Skin is warm and dry. No erythema. Psychiatric: She has a normal mood and affect. Her behavior is normal. Thought content normal. Telemetry and 12 lead ECG: nsr Results for orders placed or performed during the hospital encounter of 04/08/18 ECG 12 lead Narrative [place] [address] [place] [address] Test Date: 2018-04-08 Pat Name: STEPH ROBERTO Department: 1 Room: [place] [address] Gender: Female Maintenance Instructor: TERESA RM : 1990 Requested By: LISSY GODFREY Order Number: [id number] Reading MD: Galen Hernandez Measurements Intervals [place] Rate: 99 P: 57 MA: 135 QRS: 68 QRSD: 73 T: 44 QT: 348 QTc: 447 Interpretive Statements SINUS RHYTHM ECG 12 lead Narrative [place] [address] [place] [address] Test Date: 2018-04-10 Pat Name: SETPH ROBERTO Department: 1 Room: [facility] Gender: Female Maintenance Instructor: [place] : 1990 Requested By: SANJANA SAMSON Order Number: [id number] Reading MD: Galen Hernandez Measurements Intervals [place] Rate: 82 P: 34 MA: 132 QRS: 63 QRSD: 78 T: 43 QT: 356 QTc: 418 Interpretive Statements SINUS RHYTHM POSSIBLE RIGHT VENTRICULAR CONDUCTION DELAY NONSPECIFIC T-WAVE ABNORMALITY Labs and Cultures: Recent Results (from the past 24 hour(s)) POCT glucose Collection Time: 04/10/18 2:31 PM Result Value Ref Range GLUCOSE POC 54 (L) 70 - 109 POCT glucose Collection Time: 04/10/18 2:49 PM Result Value Ref Range GLUCOSE POC 87 70 - 109 POCT glucose Collection Time: 04/10/18 4:21 PM Result Value Ref Range GLUCOSE POC 168 (H) 70 - 109 POCT glucose Collection Time: 04/10/18 8:17 PM Result Value Ref Range GLUCOSE POC 237 (H) 70 - 109 POCT glucose Collection Time: 04/10/18 9:31 PM Result Value Ref Range GLUCOSE POC 188 (H) 70 - 109 POCT glucose Collection Time: 04/10/18 11:33 PM Result Value Ref Range GLUCOSE POC 168 (H) 70 - 109 POCT glucose Collection Time: 04/11/18 3:38 AM Result Value Ref Range GLUCOSE POC 130 (H) 70 - 109 POCT glucose Collection Time: 04/11/18 5:33 AM Result Value Ref Range GLUCOSE POC 95 70 - 109 CBC, AUTO, NO DIFF Collection Time: 04/11/18 7:48 AM Result Value Ref Range WBC 2.6 (L) 4.0 - 10.8 x10'3/uL RBC 3.95 (L) 4.10 - 5.40 x10'6/uL HGB 12.1 12.0 - 16.0 G/DL HCT 34.5 (L) 36.0 - 47.0 % MCV 87.3 78.0 - 100.0 FL MCH 30.6 27.0 - 31.0 PG MCHC 35.1 33.0 - 36.0 G/DL RDW 11.7 11.5 - 14.5 % PLT 167 150 - 350 x10'3/uL MPV 9.6 7.4 - 10.4 FL BASIC METABOLIC PANEL Collection Time: 04/11/18 7:48 AM Result Value Ref Range SODIUM 139 136 - 145 MMOL/L POTASSIUM 3.5 3.5 - 5.1 MMOL/L CHLORIDE 104 98 - 107 MMOL/L CO2 29.3 21.0 - 32.0 MMOL/L GLUCOSE 55 (L) 74 - 106 MG/DL BUN 5 (L) 7 - 18 MG/DL CREATININE 0.55 0.55 - 1.02 MG/DL CALCIUM 8.4 8.4 - 10.5 MG/DL ANION GAP 5.7 MMOL/L OSMOLALITY (CALC) 283 MOSM/KG eGFR Non-Afr. Amer. >90 >90 ML/MIN/1.73 M2 eGFR Afr. Amer. >90 >90 ML/MIN/1.73 M2 POCT glucose Collection Time: 04/11/18 8:42 AM Result Value Ref Range GLUCOSE POC 43 (L) 70 - 109 POCT glucose Collection Time: 04/11/18 9:10 AM Result Value Ref Range GLUCOSE POC 74 70 - 109 POCT glucose Collection Time: 04/11/18 10:28 AM Result Value Ref Range GLUCOSE POC 229 (H) 70 - 109 ASSESSMENT Patient Active Problem List Diagnosis ??? Diabetic ketoacidosis ??? High anion gap metabolic acidosis ??? Type 1 diabetes mellitus ??? Hyponatremia ??? Hyperglycemia ??? Hyperlipidemia ??? Smoker ??? Anxiety ??? Depression ??? UTI (urinary tract infection) PLAN monitor - ok with me for discharge Signed SCOTT GONZALEZ MD 04/11/2018 * Sanjana Samson MD - 04/11/2018 1:11 PM CDT Progress note SUBJECTIVE Patient seen and examined. Not in acute distress, feel better, no N/V. Her FS 40s this am with symptomatic. Pt wants to go home, V/S stable, no fever. OBJECTIVE Wt Readings from Last 3 Encounters: 04/10/18 50.4 kg (111 lb 1.8 oz) Temp: 98.1 ??F (36.7 ??C) BP Readings from Last 3 Encounters: 04/11/18 115/71 Pulse Readings from Last 3 Encounters: 04/11/18 77 ROS Positive for palpitation, no chest pain, no shortness of breath, the remainder of the systems were negative except that mentioned in HPI. PHYSICAL EXAMINATION: General Appearance: : No Apparent Distress: Well Developed: Thin skin: : Normal Color: Warm/Dry Head: : Normocephalic Eyes: : Conjunctiva Clear: PERRL/EOMI ENT: : Ears Normal: Nose Normal: Oropharynx Normal Neck: : Non-Tender: Supple Chest and Respiratory: : Airway Patent: Breath Sounds Equal: Lungs Clear-Auscultation Heart: : Regular Rate/Rythm Abdominal: No Organomegaly Non-Tender Normal Bowel Sounds Soft Vascular: : Normal Capillary Refill: Normal Peripheral Musculoskeletal: : Normal Range of Motion Neurologic: : Alert and Oriented X3: Generalized motor weakness but no Gross Motor Deficits Mental Status: : Normal Affect Back: : Non Tender Genital-Rectal : Deferred Rectal: : Deferred LABS: Recent Labs 04/09/18 0405 04/10/18 0330 04/11/18 0748 WBC 5.9 3.8* 2.6* HGB 10.2* 11.3* 12.1 HCT 29.1* 32.8* 34.5* MCV 87.9 89.4 87.3 PLT 210 182 167 RBC 3.31* 3.67* 3.95* Recent Labs 04/09/18 0405 04/10/18 0329 04/11/18 0748 CO2 19.2* 24.5 24.3 29.3 CL 113* 105 105 104 GLU 171* 245* 55* K 3.6 4.2 4.2 3.5 NA 141 136 136 139 BUN 5* 5* 5* Intake/Output Summary (Last 24 hours) at 04/11/2018 1311 Last data filed at 04/10/2018 1443 Gross per 24 hour Intake 480 ml Output 400 ml Net 80 ml RADIOLOGY : REVIEWED MEDICATIONS Scheduled medications ??? dextrose 12.5 g Intravenous Once ??? docusate sodium 100 mg Oral Daily ??? insulin glargine 20 Units Subcutaneous Nightly at bedtime ??? insulin lispro 1-4 Units Subcutaneous TID AC ??? insulin lispro 6 Units Subcutaneous TID AC ??? magnesium oxide 400 mg Oral Daily ??? metoclopramide 10 mg Oral TID AC ??? metroNIDAZOLE 500 mg Oral 2 times per day ??? nitrofurantoin (macrocrystal-monohydrate) 100 mg Oral 2 times per day ??? pantoprazole 40 mg Oral Daily ??? pravastatin 20 mg Oral QPM ??? senna-docusate 1 tablet Oral Nightly at bedtime Infusion PRN acetaminophen OR acetaminophen OR acetaminophen, dextrose, dextrose, glucagon, hydrocodone-acetaminophen, ipratropium-albuterol, ondansetron @LASTMICRO@ ASSESSMENT /PLAN Steph Roberto is a 27-year-old female with the following history as recorded in EpicCare: Problem List Items Addressed This Visit None PLAN: A 27-year-old female with a past medical history of DMI, HLD, GERD, anxiety, depression, smoker, and UTI who presented to [facility] ICU from [facility] in [place] for Diabetic Ketoacidosis. . ? #Diabetic Ketoacidosis: with High anion gap metabolic acidosis, admited to ICU, s/p IV insulin, total of 6L+ IVFs for hypovolemia, gap is closed -hypoglysemia to 40s this am symptomatic, give juice, pt refused D50. -will d/c Lantus 20 u BID, add pre meal lispro 4 U, and sliding scale Humalog for now -on hypoglycemic protocol -consult [place] [facility] for futher rec ?? #UTI: failed PO ABO, on Vancomycin and Zosyn on admission. UC fond contamination, deescalated to Nitrofurantoin BID x 5 days -UC from [facility] grew E.Coli SS to Macrobid #Concern for PID as patient reports new sexual partner and poor adherence to condom use, along withnot being seen by her BEHAVIORAL HEALTH COUNSELOR for pap or STI testing in several years. Urine test negative. Renal US negative for pyelonephritis -MINDI BEHAVIORAL HEALTH COUNSELOR consulted for suspected PID, we appreciate your help -Chlamydia neg and gonorrhea pending -Vaginitis showed gardnerella but no trichomonas, likely an overgrowth of the normal vaginal bacteria and not a sexually transmitted infection -recommend flagyl 500mg BID x7 days #Palpitations; last night noted feeling palpitation and EKG showed possible a flutter, mg 1.5, givemg supplement -appreciated EP input, Echo EF 67% -Continue on telemetry # N/V: Beside of DKA patient report having intermittent nauseous vomiting for a few month, ?patienthas gastroparesis from uncontrolled DM. also noted splited out black staff frequently,? Manuel Cabrera related to nauseous vomiting,appreciated GI rec. -Gastric emptying study when not on pain medications (outpatient) -Possible EGD if there is a significant drop in hemoglobin or patient experiences overt bleeding. -CT a/p no mass noted -c/w Protonix, relan -monitor H&H #Active smoker: Discussed with patient about quitting smoking, counseling time 5 minute, offered nicotine patch , but refused. ?? # Anxiety/Depression:Did not take any medications for this at home, continue to monitor for s/s ?? #Hyperlipidemia: LDL of 86, was initiate Pravastatin 20mg daily and recommend OP follow-up ?? #DVT prophylaxis: no SQH possibel GIB, on SCD # Code status is full code. # Pt wants to go home, d/w her that she had hypoglycemic, neeed to be mornitor 24 hr, once her FS stable she can be d/c. Pt voiced understanding but upset that she can't go home, her father agreed onplan. All questions answered. ?? SANJANA SAMSON MD 1:11 PM 04/11/2018 * Emely Edouard - 04/11/2018 12:11 PM CDT ACCOUNTANT SUPERVISOR provided Pt a list of endocrinologists that cover Pt's area. 1 listed in [place]. Pt frustrated and trying to get a diffferent insurance assigned. * Saba Judge MD - 04/10/2018 4:11 PM CDT Brief Progress Note SUBJECTIVE Patient having some loose stools and some cramping abdominal pain as a result of this. She also complains of some urinary urgency but not dysuria. Says vaginal discharge is the same and denies vaginal bleeding. OBJECTIVE Temp: [97.6 ??F (36.4 ??C)-98.7 ??F (37.1 ??C)] 98.7 ??F (37.1 ??C) Pulse: [86-92] 92 Resp: [12-19] 12 BP: (101-119)/(40-71) 119/71 GEN: AAOx3, NAD, appears comfortable in bed ABD: soft, nontender, nondistended ASSESSMENT/PLAN Steph Roberto??is a 27-year-old?? with Type 1 Diabetes who presents as a transport from [facility] in [place] due to concern for diabetic ketoacidosis.??MINDI BEHAVIORAL HEALTH COUNSELOR consulted dueto concern for PID with new sexual partner and vaginal discharge -vaginitis positive for BV, receiving treatment with flagyl 500mg BID x7 days. GC negative. -pap collected 04/08 and still pending final result -afebrile and with no uterine or cervical motion tenderness on presentation, very low concern for PID and vaginal discharge is likely due to BV. No further testing for PID is recommended given this clinical picture -MINDI BEHAVIORAL HEALTH COUNSELOR will sign off at this time and defer management to primary team. . Please call for any additional questions or concerns. SABA JUDGE MD 04/10/2018 Cosigned by César Spain MD at 04/14/2018 9:25 AM CDT * Sanjana Samson MD - 04/10/2018 9:38 AM CDT Progress note SUBJECTIVE Patient seen and examined. Not in acute distress, feel better, last night has an episode of palpitation. Denies any chest pain or shortness of breath. Also noted split out black mucus. No vomiting but feels nauseous sometimes. V/S stable, no fever. OBJECTIVE Wt Readings from Last 3 Encounters: 04/10/18 50.4 kg (111 lb 1.8 oz) Temp: 98.7 ??F (37.1 ??C) BP Readings from Last 3 Encounters: 04/10/18 106/68 Pulse Readings from Last 3 Encounters: 04/10/18 86 ROS Positive for palpitation, no chest pain, no shortness of breath, the remainder of the systems were negative except that mentioned in HPI. PHYSICAL EXAMINATION: General Appearance: : No Apparent Distress: Well Developed: Thin skin: : Normal Color: Warm/Dry Head: : Normocephalic Eyes: : Conjunctiva Clear: PERRL/EOMI ENT: : Ears Normal: Nose Normal: Oropharynx Normal Neck: : Non-Tender: Supple Chest and Respiratory: : Airway Patent: Breath Sounds Equal: Lungs Clear-Auscultation Heart: : Regular Rate/Rythm Abdominal: No Organomegaly Non-Tender Normal Bowel Sounds Soft Vascular: : Normal Capillary Refill: Normal Peripheral Musculoskeletal: : Normal Range of Motion Neurologic: : Alert and Oriented X3: Generalized motor weakness but no Gross Motor Deficits Mental Status: : Normal Affect Back: : Non Tender Genital-Rectal : Deferred Rectal: : Deferred LABS: Recent Labs 04/08/18 1241 04/09/18 0405 04/10/18 0330 WBC 8.0 5.9 3.8* HGB 12.6 10.2* 11.3* HCT 37.2 29.1* 32.8* MCV 91.0 87.9 89.4 PLT 210 210 182 RBC 4.09* 3.31* 3.67* Recent Labs 04/08/18 1213 04/09/18 0017 04/09/18 0405 04/10/18 0329 ALT 27 -- -- -- -- AST 18 -- -- -- -- CO2 12.3* < > 18.5* 19.2* 24.3 24.5 CL 104 < > 111* 113* 105 105 GLU 264* < > 174* 171* 245* K 4.4 < > 3.8 3.6 4.2 4.2 NA 132* < > 140 141 136 136 BUN 16 < > 6* 5* 5* < > = values in this interval not displayed. Intake/Output Summary (Last 24 hours) at 04/10/2018937 Last data filed at 04/09/20182035 Gross per 24 hour Intake 240 ml Output 900 ml Net -660 ml RADIOLOGY : REVIEWED MEDICATIONS Scheduled medications ??? docusate sodium 100 mg Oral Daily ??? heparin (porcine) 5,000 Units Subcutaneous 3 times per day ??? insulin glargine 20 Units Subcutaneous BID ??? insulin lispro 0-8 Units Subcutaneous 4x Daily AC and at bedtime ??? insulin lispro 4 Units Subcutaneous TID WC ??? magnesium oxide 400 mg Oral Daily ??? metroNIDAZOLE 500 mg Oral 2 times per day ??? nitrofurantoin (macrocrystal-monohydrate) 100 mg Oral 2 times per day ??? pravastatin 20 mg Oral QPM ??? senna-docusate 1 tablet Oral Nightly at bedtime Infusion PRN acetaminophen OR acetaminophen OR acetaminophen, dextrose, dextrose, glucagon, hydrocodone-acetaminophen, ipratropium-albuterol, ondansetron @BANNERRO@ ASSESSMENT /PLAN Steph Roberto is a 27-year-old female with the following history as recorded in EpicCare: Problem List Items Addressed This Visit None PLAN: A 27-year-old female with a past medical history of DMI, HLD, GERD, anxiety, depression, smoker, and UTI who presented to [facility] ICU from [facility] in [place] for Diabetic Ketoacidosis. . ? #Diabetic Ketoacidosis: with High anion gap metabolic acidosis, admited to ICU, s/p IV insulin, total of 6L+ IVFs for hypovolemia, gap is closed -c/w Lantus 20 u BID, add pre meal lispro 4 U, and sliding scale Humalog ?? #UTI: failed PO ABO, on Vancomycin and Zosyn on admission. UC fond contamination, deescalated to Nitrofurantoin BID x 5 days -will follow UC from [facility] #Concern for PID as patient reports new sexual partner and poor adherence to condom use, along withnot being seen by her BEHAVIORAL HEALTH COUNSELOR for pap or STI testing in several years. Urine test negative. Renal US negative for pyelonephritis -MINDI BEHAVIORAL HEALTH COUNSELOR consulted for suspected PID, we appreciate your help -Chlamydia neg and gonorrhea pending -Vaginitis showed gardnerella but no trichomonas, likely an overgrowth of the normal vaginal bacteria and not a sexually transmitted infection -recommend flagyl 500mg BID x7 days #Palpitations; last night noted feeling palpitation and EKG showed possible a flutter, mg 1.5, givemg supplement -Check EKG, consult EP for further recommendation -Continue on telemetry- # N/V: Beside of DKA patient report having intermittent nauseous vomiting for a few month, ?patienthas gastroparesis from uncontrolled DM. also noted splited out black staff frequently,? Mullally Cabrera related to nauseous vomiting -s/w Protonix, relan -monitor H&H -We will consult GI for further evaluation. #Active smoker: Discussed with patient about quitting smoking, counseling time 5 minute, offered nicotine patch , but refused. ?? # Anxiety/Depression:Did not take any medications for this at home, continue to monitor for s/s ?? #Hyperlipidemia: LDL of 86, was initiate Pravastatin 20mg daily and recommend OP follow-up ?? #DVT prophylaxis:will d/c SQH possibel GIB, on SCD# Code status is full code. Plan of care discussed with patient at bedside the findings and treatment plan. Patient verbalized understanding and agreement. All questions answered. ?? SANJANA SAMSON MD 9:38 AM 04/10/2018 * Marge Leon RN - 04/10/2018 5:03 AM CDT Problem: Venous Thromboembolism - Risk of Goal: Absence of venous thromboembolism Outcome: Progressing Patient refusing VTE prevention, but no S&S of VTE Problem: Injury - Risk of, Abnormal Serum Glucose Level Goal: Glucose level within specified parameters Outcome: Progressing Glucose level being monitored and managed * Saba Judge MD - 04/09/2018 5:35 PM CDT Brief Progress Note SUBJECTIVE Doing well, much quieter room down in C. Says pain is much better. Says no difference in vaginal discharge or in odor. OBJECTIVE Temp: [98.2 ??F (36.8 ??C)-98.8 ??F (37.1 ??C)] 98.4 ??F (36.9 ??C) Pulse: [79-98] 87 Resp: [13-20] 19 BP: (82-120)/(48-87) 109/70 GEN: AAOx3, NAD ASSESSMENT/PLAN Steph Roberto is a 27-year-old with Type 1 Diabetes who presents as a transport from [facility] in [place] due to concern for diabetic ketoacidosis. -discussed vaginitis swab positive for BV and that this is an overgrowth of the normal vaginal bacteria and not a sexually transmitted infection -recommend flagyl 500mg BID x7 days -GC still pending Patient expressed understanding and all questions were answered. SABA JUDGE MD 04/09/2018 Cosigned by César Spain MD at 04/14/2018 9:21 AM CDT * Veronica Melgar - 04/09/2018 4:32 PM CDT Patient lives with her 7 year old daughter and her mother. Patient works for [employer]. Patient has been having difficulty connecting with a PCP due to having [place] managed Medicaid. IT PROJECT COORDINATOR locatedtwo clinics near her that accept that insurance but patient states that she has been to both and does not find the level of care provided at either to be satisfactory. 04/09/18 2929 Referral Data Referral Source Self-referral Referral Reason Discharge Planning Source of Information Patient;Nurse;Chart review Patient Information OB Patient < 19 yrs old No Primary Caregiver Self Support System Immediate family;Extended family;Friends Baseline ADL's Functional Status Independent Living Arrangements Children;Parent Type of Residence Private residence Ambulation Independent Bathing/Grooming Independent Dressing Independent Behavior Oriented;Cooperative Communication Talks;Understands speaking;Understands [place] Socioeconomic Needs Caregiver Needed No At Risk of Abuse or Neglect No Income Information Financial Concerns Medication;Other (comment) (Patient has [place] managed Medicaid and is having difficulty finding a satisfactory PCP that accepts her insurance) Psychological Needs: Mental health concerns No Potential Harm to Self or Others No Suspected Drug or Alcohol Abuse No Inappropriate Patient/Family Behaviors No Difficult Adjustment to Diagnosis No Recent Hospitalization Recent Hospitalization within 30 days No Anticipated Discharge Needs Change in Living Arrangements No In-Home Care or Equipment No Vocational and/or Role Loss No Inability to Complete ADL's No Discharge Planning Living Arrangements Children;Parent Support Systems Parent;Children;Family members;Friends/neighbors Type of Residence Private residence Assistance Needed No Patient expects to be discharged to: Home * Lissy Godfrey APRN - 04/09/2018 1:58 PM CDT ASSESSMENT AND PLAN Admitting Diagnosis: Diabetic Ketoacidosis HPI: The presenting patient is a pleasant 27-year-old female with a past medical history of DMI, HLD, GERD, anxiety, depression, smoker, and UTI who presented to [facility] ICU from [facility] in [place] for Diabetic Ketoacidosis. The patient had been seen in [facility] ED about a week prior to this for UTI and bronchitis, for which she was sent home on Augmentin. The patient went back to the [facility] ED on 04/08 in the morning with complaints of nausea/vomiting with inability to take PO x 2 days and abdominal pain. Upon evaluation, she was found to be in DKA, she was transferred to [facility] ICU for a higher level of care. Interval History: The patient remained stable overnight with no issues of note. She explains she feels much better and actually has an appetite now. Problems: 1. Diabetic Ketoacidosis 2. High anion gap metabolic acidosis --DKA protocol initiated on admission --Q4H labs no longer needed as patient's gap is closed --Transitioned off insulin drip to home dose of Lantus and sliding scale Humalog --Received a total of 6L+ IVFs for hypovolemia --Carb controlled diet with ACHS blood sugar monitoring, goal to keep between 80 and 180 3. Urinary tract infection --Despite completion of Augmentin course --Initiate Vancomycin and Zosyn on admission --> deescalated to Nitrofurantoin BID x 5 days --Concern for PID as patient reports new sexual partner and poor adherence to condom use, along with not being seen by her BEHAVIORAL HEALTH COUNSELOR for pap or STI testing in several years --MINDI BEHAVIORAL HEALTH COUNSELOR consulted for suspected PID, we appreciate your help --Urine test negative --Yellow vaginal discharge noted by patient --No CVA tenderness on physical exam --Renal US negative for pyelonephritis --Chlamydia and gonorrhea pending --Vaginitis showed gardnerella but no trichomonas --BEHAVIORAL HEALTH COUNSELOR to follow-up on swab results with no plans for further PID testing given patient's clinical picture 4. Smoker --Educated on smoking cessation --Denies current need for nicotine patch 5. Anxiety/Depression --Did not take any medications for this at home, continue to monitor for s/s 6. Hyperlipidemia --Total cholesterol this morning of 206 with LDL of 86, will initiate Pravastatin 20mg daily and recommend OP follow-up VTE Mechanical Prophylaxis: SCDs VTE Pharmacological Prophylaxis: Sub-cu Heparin TID GI Prophylaxis: Not indicated Pack Catheter: Not indicated Central Line: Not indicated Arterial Line: Not indicated Restraints: Not indicated Code Status: FULL CODE Disposition: The patient is hemodynamically stable with a closed anion gap and tolerating PO carb controlled diet. She is able to be transferred out of ICU to [facility] Hospitalist Dr. Albin Sims. Past Medical History: Diagnosis Date ??? Anxiety ??? Bronchitis ??? Diabetes mellitus ??? Gastrointestinal ulcer ??? GERD (gastroesophageal reflux disease) ??? Hx of insertion of insulin pump has been removed ??? Hypercholesteremia ??? Hypotension ??? UTI (urinary tract infection) Current Facility-Administered Medications Medication Dose Route Frequency Provider Last Rate Last Dose ??? acetaminophen (TYLENOL) tablet 650 mg 650 mg Oral Q4H PRN Lissy Godfrey APRN 650 mg at 04/08/183 Or ??? acetaminophen (TYLENOL) suppository 650 mg 650 mg Rectal Q4H PRN Lissy Godfrey APRN Or ??? acetaminophen (TYLENOL) 160 MG/5ML solution 650 mg 650 mg Oral Q4H PRN Lissy Godfrey, PAYROLL AND BENEFITS SPECIALIST ??? dextrose (GLUTOSE) 40 % oral gel 15-30 g 15-30 g Oral PRN Lissy Godfrey APRN ??? dextrose 50 % solution 25-50 mL 25-50 mL Intravenous PRN Lissy Godfrey APRN ??? docusate sodium (COLACE) capsule 100 mg 100 mg Oral Daily Lissy Godfrey APRN 100 mg at 04/09/18 0819 ??? glucagon injection 1 mg 1 mg Intramuscular Once PRN Lissy Godfrey APRN ??? heparin (porcine) injection 5,000 Units 5,000 Units Subcutaneous 3 times per day Lissy Godfrey APRN 5,000 Units at 04/08/18 1844 ??? insulin glargine (LANTUS) injection 20 Units 20 Units Subcutaneous BID Anson Dominique, 20 Units at 04/09/18 0820 ??? insulin lispro (HUMALOG) injection 0-8 Units 0-8 Units Subcutaneous 4x Daily AC and at bedtime Anson Dominique, DO ??? ipratropium-albuterol (DUONEB) 0.5-2.5 (3) MG/3ML nebulizer solution 3 mL 3 mL Nebulization Q4HPRN Lissy Godfrey, PAYROLL AND BENEFITS SPECIALIST ??? nitrofurantoin (macrocrystal-monohydrate) (MACROBID) capsule 100 mg 100 mg Oral 2 times per dayAnsno Dominique, DO 100 mg at 04/09/18 1122 ??? ondansetron (ZOFRAN) injection 4 mg 4 mg Intravenous Q6H PRN Eder Sexton MD 4 mg at 04/09/18 0557 ??? pravastatin (PRAVACHOL) tablet 20 mg 20 mg Oral QPM Lissy Godfrey, PAYROLL AND BENEFITS SPECIALIST ??? senna-docusate (SENOKOT-S) 8.6-50 MG tablet 1 tablet 1 tablet Oral Nightly at bedtime Lissy Godfrey, PAYROLL AND BENEFITS SPECIALIST 1 tablet at 04/08/182032 Allergies Allergen Reactions ??? Peanut-Containing Drug Products Anaphylaxis ??? Latex Hives Principal Problem: Diabetic ketoacidosis SNOMED CT(R): DIABETIC KETOACIDOSIS Active Problems: High anion gap metabolic acidosis SNOMED CT(R): METABOLIC ACIDOSIS, INCREASED ANION GAP (IAG) Type [address](R): TYPE 1 DIABETES MELLITUS Hyponatremia SNOMED CT(R): HYPONATREMIA Hyperglycemia SNOMED CT(R): HYPERGLYCEMIA Hyperlipidemia SNOMED CT(R): HYPERLIPIDEMIA Smoker SNOMED CT(R): SMOKER Anxiety SNOMED CT(R): ANXIETY Depression SNOMED CT(R): DEPRESSIVE DISORDER UTI (urinary tract infection) SNOMED CT(R): URINARY TRACT INFECTIOUS DISEASE Blood pressure 108/68, pulse 90, temperature 98.2 ??F (36.8 ??C), temperature source Axillary, resp. rate 19, height 5' 5 (1.651 m), weight 49.9 kg (110 lb 0.2 oz), SpO2 100 %. The patient was seen and examined during multidisciplinary rounds and overnight events were reviewed. The patient's labs and medications were addressed. The patient's ROS and PE are as mentioned below. Review of Systems Constitutional: Negative for chills and fever. Respiratory: Negative for cough and shortness of breath. Cardiovascular: Negative for chest pain, palpitations and leg swelling. Gastrointestinal: Negative for abdominal pain, nausea and vomiting. Genitourinary: Positive for urgency. Negative for dysuria, flank pain, frequency and hematuria. Musculoskeletal: Negative for back pain. Physical Exam Constitutional: She is oriented to person, place, and time. No distress. Eyes: Pupils are equal, round, and reactive to light. Cardiovascular: Normal rate, regular rhythm, normal heart sounds and intact distal pulses. Pulmonary/Chest: No respiratory distress. She has no wheezes. She has no rales. Abdominal: Soft. Bowel sounds are normal. There is no tenderness. Neurological: She is alert and oriented to person, place, and time. Skin: Skin is warm and dry. LISSY GARCIA APRN 04/09/2018 Cosigned by Anson Dominique DO at 04/09/2018 2:20 PM CDT Associated attestation - Anson Dominique DO - 04/09/2018 2:20 PM CDT ICU Attending Note S: Patient seen and examined at multidisciplinary rounds this morning. O: Vital signs reviewed. Physical exam: Awake alert and oriented, S1-S2, decreased breath sounds at bilateral bases, soft nontender nondistended abdomen with positive bowel sounds, minimal lower extremity edema bilaterally. Outside hospital records, labs, microbiologic studies, radiologic studies, EKG, echo report, medications were all reviewed by myself. A: DKA, urinary tract infection. P: Restarted on home dose Lantus with sliding scale coverage. Follow-up on RPR, chlamydia and gonorrhea NAAT. De-escalate antibiotics to nitrofurantoin ??5 days. Patient advised of orange discoloration of bodily fluids and skin. [facility]. Patient will be signed out to Dr. Nancy Sims by TRAFFIC CLERK. * Adam Waters [facility] - 04/09/2018 1:09 PM CDT Pharmacy Clinical Services: Sign off note Pharmacy has been consulted to dose vancomycin per Dr. Dominique. Pharmacy will now sign off dosing asthe drug has been discontinued. Thank you for allowing us the opportunity to participate in the care of Steph Roberto. Please let pharmacy know if we can be of further assistance. ADAM WATERS [facility] Phone number: [phone] 04/09/2018 1:09 PM * Leta Saenz, RD - 04/09/2018 8:22 AM CDT CLINICAL DIETITIAN ASSESSMENT NUTRITION ASSESSMENT RD completing an initial assessment secondary to BMI<19. Patient is a 27-year-old female admitted secondary to DKA Diabetic ketoacidosis. Past Medical History: Diagnosis Date ??? Anxiety ??? Bronchitis ??? Diabetes mellitus ??? Gastrointestinal ulcer ??? GERD (gastroesophageal reflux disease) ??? Hx of insertion of insulin pump has been removed ??? Hypercholesteremia ??? Hypotension ??? UTI (urinary tract infection) Weight history: Pt states that she has always been thin. Pt has a UBW of 117#, which she remembers weighing last month. She states she does not know why she has lost this weight. Current weight is 110# indicating a 6% weight loss within 1 month (significant). Diet history: Pt has not had a decrease in appetite or intake recently and states that she has beentaking her insulin regularly as indicated/prescribed. Pt eats 3 meals per day with a snack at timeswhen she feels her BG is low. Pt then went on to say that she actually had been eating less due to feeling sick for the past 5 days. Chewing/swallowing problems: No Food allergies/intolerances: peanuts in large quantities but she states she iis able to choose foods for herself and has never had a problem eating foods that contain small amounts of peanuts. Cultural/Baptism food preferences: none Neuro: WDL Cardiorespiratory: room air Edema: none Skin: no breakdown GI: WDL Nutrition-focused physical findings (04/09/2018): Pt appears well-nourished, not underweight, with no overt signs of subcutaneous fat or muscle losses seen. Labs: Mg 1.5 (L), glucose 171 (H), POC glucose 114-174 past 24 hours. Nutrition-related meds: Lantus, Humalog, magnesium replacements, ABx, Zofran Anthropometrics Height: 165.1 cm ABW: 49.9 kg IBW: 56.7 kg (ABW is 88% of IBW) UBW: 53.2 kg (ABW is 94% of UBW) DW: 49.9 kg BMI: 18.3 kg/m?? (underweight) Admission weight: 49.9 kg (Date: 04/08/18; Method: bed) Last 5 Recorded Weights 04/08/18 1236 Weight: 49.9 kg (110 lb 0.2 oz) Admission weight was taken using bed scale. Summary of Estimated Nutrient Needs Calories: 1531 kcal/day, based on Walworth-St Jeor x 1.25 Protein: 60 gm/day, based on 1.2 gm/kg using ABW of 49.9 kg Fluid: 1531 mL/day, based on1 mL/kcal estimated needs Current diet order: Diet Carb Controlled Appropriate; 60g/meal Current diet appropriate? Yes Current intake sufficient to meet nutritional needs? Pt just had diet advanced this morning. No meals consumed yet. Pain affecting PO intake? No Nutrition Education: Pt has no questions at this time. Pt has had T1DM for past 10 years and is usually able to control BG very well. NUTRITION DIAGNOSIS Malnutrition Severe in the context of acute illness related to inadequate protein/energy intake as evidenced by weight loss of 6% BW within 1 month and intake Meeting <50% estimated needs for 5 days. Nutrition risk: moderate NUTRITION INTERVENTION Nutrition prescription: CHO controlled with 60 gm/meal Plan: 1. Continue current diet 2. Weights at least q72h to monitor fluid and nutritional status Discharge nutrition plan: Discharge needs assessed. Will provide/update discharge instructions as needed. MONITORING/EVALUATION 04/09/2018 Goals: 1. Pt will consume at least 50% of 3 meals daily through follow up 2. Pt wt will stay within +/-2% current weight (49.9 kg) at follow up LETA SAENZ RD, LDN * Veronica Jiménez RN - 04/08/2018 11:47 PM CDT Problem: Venous Thromboembolism - Risk of Goal: Absence of venous thromboembolism Outcome: Progressing Will continue to monitor Problem: Discharge Planning Goal: Knowledge of discharge instructions Outcome: Progressing Will continue to monitor Problem: Injury - Risk of, Abnormal Serum Glucose Level Goal: Glucose level within specified parameters Outcome: Progressing Pt confused. Unable to participate. * Adam Waters RP - 04/08/2018 2:49 PM CDT Vancomycin Protocol: Pharmacokinetic note Steph Roberto is a 27-year-old female for which pharmacy has been consulted to dose vancomycin for Pelvic Inflammatory disease/sepsis. Goal trough is 15 - 20 mcg/mL. Today is day 0 of therapy. Other antibiotics being used include zosyn. Height: 5' 5 (1.651 m) Weight: 49.9 kg (110 lb 0.2 oz) Today's labs and vitals: WBC Date Value Ref Range Status 04/08/2018 8.0 4.0 - 10.8 x10'3/uL Final CREATININE (MG/DL) Date Value 04/08/2018 0.95 CrCl = estimated creatinine clearance is 68.8 mL/min (based on SCr of 0.95 mg/dL). No intake or output data in the 24 hours ending 04/08/18 1450 Temp Readings from Last 1 Encounters: 04/08/18 98.8 ??F (37.1 ??C) (Tympanic) Cultures: Date Drawn Site Organism Pertinent Sensitivity Levels: Date Time Level Trough or Random? Drawn appropriately? Dose/frequency According to the patient's age, weight, renal function, and level, vancomycin will be dosed at 750 mg every 12 hours with a trough level on 04/10 at 1200 prior to the fifth dose. Pharmacy will monitordosing, labs, and cultures daily adjusting the dose/regimen as clinically appropriate. Thank you for the consult. Pharmacy to dose per Dr. Sheikh ADAM WATERS RP Phone number: [phone] 04/08/2018 2:50 PM * Anson Dominique DO - 04/08/2018 1:28 PM CDT ICU Attending Note S: Patient seen and examined at multidisciplinary rounds this morning. Complaining of vaginal discharge along with abdominal pain, positive new sexual partner. O: Vital signs reviewed. Physical exam: Awake alert and oriented, S1-S2, decreased breath sounds at bilateral bases, soft nontender nondistended abdomen with positive bowel sounds, minimal lower extremity edema bilaterally. Outside hospital records, labs, microbiologic studies, radiologic studies, EKG, echo report, medications were all reviewed by myself. A: DKA, rule out pelvic inflammatory disease, venereal diseases, urinary tract infection. P: Serial labs, IV fluids and insulin drip per DKA protocol. Anticipate converting to subcu insulinonce gap closes. We will obtain a test along with RPR, chlamydia and gonorrhea NAAT, HIV and STD screen. Will obtain an OB consult to assess for cervical motion tenderness to rule out PID. We will utilize broad-spectrum antibiotics (vancomycin, Zosyn) pending cultures. We will obtain a renal bladder ultrasound to rule out pyelonephritis as failed outpatient therapy for urinary tract infection. ANSON DOMINIQUE DO documented in this encounter H&P Notes * Lissy Armida Godfrey, PAYROLL AND BENEFITS SPECIALIST - 04/08/2018 3:59 PM CDT Attending Provider: Anson Dominique DO Primary Care Provider: No primary care provider on file. Reason for Admission: Diabetic ketoacidosis High anion gap metabolic acidosis Type 1 diabetes mellitus Hyponatremia Hyperglycemia Hyperlipidemia Smoker Anxiety Depression UTI (urinary tract infection) HPI: The presenting patient is a pleasant 27-year-old female with a past medical history of DMI, HLD, GERD, anxiety, depression, smoker, and UTI who presented to [facility] ICU from [facility] in [place] for Diabetic Ketoacidosis. The patient had been seen in [place]'s ED about a week prior to this for UTI and bronchitis, for which she was sent home on Augmentin. The patient went back to the [facility] ED on 04/08 in the morning with complaints of nausea/vomiting with inability to take PO x 2 days and abdominal pain. Upon evaluation, she was found to be in DKA, she [facility]. Past Medical History: DMI, HLD, GERD, anxiety, depression, smoker Past Surgical History: N/A Social History: Smoker Family History: Mother (asthma, diabetes) Allergies: Peanut (anaphylaxis), Latex (hives) Travel Exposure: None Principal Problem: Diabetic ketoacidosis SNOMED CT(R): DIABETIC KETOACIDOSIS Active Problems: High anion gap metabolic acidosis SNOMED CT(R): METABOLIC ACIDOSIS, INCREASED ANION GAP (IAG) Type [address](R): TYPE 1 DIABETES MELLITUS Hyponatremia SNOMED CT(R): HYPONATREMIA Hyperglycemia SNOMED CT(R): HYPERGLYCEMIA Hyperlipidemia SNOMED CT(R): HYPERLIPIDEMIA Smoker SNOMED CT(R): SMOKER Anxiety SNOMED CT(R): ANXIETY Depression SNOMED CT(R): DEPRESSIVE DISORDER UTI (urinary tract infection) SNOMED CT(R): URINARY TRACT INFECTIOUS DISEASE Blood pressure 117/63, pulse 104, temperature 98.8 ??F (37.1 ??C), temperature source Tympanic, resp. rate 16, height 5' 5 (1.651 m), weight 49.9 kg (110 lb 0.2 oz), SpO2 97 %. Review of Systems Constitutional: Positive for malaise/fatigue. Negative for chills and fever. Eyes: Negative for blurred vision. Respiratory: Negative for cough and shortness of breath. Cardiovascular: Negative for chest pain, palpitations and leg swelling. Gastrointestinal: Positive for abdominal pain and nausea. Negative for constipation, diarrhea and vomiting. Genitourinary: Positive for dysuria and urgency. Negative for flank pain, frequency and hematuria. Neurological: Positive for weakness. Negative for dizziness and headaches. Physical Exam Constitutional: She is oriented to person, place, and time. She appears distressed. Eyes: Pupils are equal, round, and reactive to light. Cardiovascular: Regular rhythm, normal heart sounds and intact distal pulses. ST Pulmonary/Chest: No respiratory distress. She has no wheezes. She has rales. Abdominal: Soft. Bowel sounds are normal. There is tenderness. Neurological: She is alert and oriented to person, place, and time. Skin: Skin is warm and dry. ASSESSMENT AND PLAN Admitting Diagnosis: Diabetic Ketoacidosis HPI: The presenting patient is a pleasant 27-year-old female with a past medical history of DMI, HLD, GERD, anxiety, depression, smoker, and UTI who presented to [facility] ICU from [facility] in [place] for Diabetic Ketoacidosis. The patient had been seen in [place]'s ED about a week prior to this for UTI and bronchitis, for which she was sent home on Augmentin. The patient went back to the [facility] ED on 04/08 in the morning with complaints of nausea/vomiting with inability to take PO x 2 days and abdominal pain. Upon evaluation, she was found to be in DKA, she was transferred to [facility] ICU for a higher level of care. Problems: 1. Diabetic Ketoacidosis 2. High anion gap metabolic acidosis --DKA protocol initiated with serial labs ordered --Replace electrolytes aggressively --Plan to transition off insulin drip once gap is closed --Received a total of 6L+ IVFs for hypovolemia --Will resume patient's home dose of Lantus 20u BID and sliding scale Humalog --NPO diet except minimal sips of water --Suspect DKA episode stemmed from persistent UTI and possibly PID, for which BEHAVIORAL HEALTH COUNSELOR consulted for further work-up --Testing also being performed to rule out STIs, HIV, , etc. as mentioned below 3. Urinary tract infection --Despite completion of Augmentin course --Initiate Vancomycin and Zosyn and deescalate as appropriate --Concern for PID as patient reports new sexual partner and poor adherence to condom use, along with not being seen by her BEHAVIORAL HEALTH COUNSELOR for pap or STI testing in several years --MINDI BEHAVIORAL HEALTH COUNSELOR consulted for suspected PID, we appreciate your help --Urine test negative --Yellow vaginal discharge noted by patient --No CVA tenderness on physical exam --Renal US negative for pyelonephritis --Chlamydia and gonorrhea pending --Vaginitis pending 4. Smoker --Educated on smoking cessation --Denies current need for nicotine patch 5. Anxiety/Depression --Did not take any medications for this at home, continue to monitor for s/s 6. Hyperlipidemia --Lipid panel ordered and pending ?? VTE Mechanical Prophylaxis: SCDs VTE Pharmacological Prophylaxis: Sub-cu Heparin TID GI Prophylaxis: Not indicated Pack Catheter: Not indicated Central Line: Not indicated Arterial Line: Not indicated Restraints: Not indicated Code Status: FULL CODE Disposition: The patient is suffering from diabetic ketoacidosis along with elevated anion gap metabolic acidosis requiring insulin drip, fluid boluses, and further diagnostic work-up to determine the cause of her DKA episode. She will remain in ICU overnight. Critical Care Time: 42 minutes excluding billable procedures and teaching. LISSY GARCIA APRN 04/08/2018 Cosigned by Anson Dominique DO at 04/09/2018 2:20 PM CDT Associated attestation - Anson Dominique DO - 04/09/2018 2:20 PM CDT See ICU attending attestation note timed earlier today. documented in this encounter Consult Notes * Hui Sampson MD - 04/11/2018 10:58 AM CDTAssociated Order(s): IP CONSULT TO ENDOCRINOLOGY Patient Name: Steph Roberto Date of : 1990 Admission Date: 04/08/2018 Requested Consult By: Inpatient Consult to Endocrinology Consult performed by: Hui Sampson MD Consult ordered by: Sanjana Samson MD Reason for Consult: diabetes type 1, Consult Date: 04/11/2018 HPI: Steph Roberto is a 27-year-old female patient With history of DM type 1 who was admitted with DKA, secondary to Bronchitis, and insufficient insulin dosing. She was switched to basal bolus insulinregimen ( home regimen) Yesterday. Today morning she had an episode of severe hypoglycemia when herblood sugar dropped in 40s and [facility] endocrinology was consulted to assist in management of her type 1 diabetes. She was diagnosed with diabetes type 1 in 2007 . Her diabetes is complicated with micro-vascular complications; Peripheral neuropathy, she denies any worsening of tingling and numbness on her feet. Last Last dilated eye examination was 2 years ago , no DR. . No known Macrovascular complications. Patient Denies polyuria, polydipsia, change in weight, blurry vision. She follow up with Dr. Graham in clinic. Her alst Ac was 10.9 %. Home diabetes regimen. Lantus 20 units BID, Humalog with ICR 1: 10 and ISF 1: 50 > 150 AC TID and she usually takes 10 units AC TID She checks her Bg 5 to 6 times a day and her BG runes in 200s at home. Hypoglycemia pattern. She denies any hypoglycemia at home MEAL PATTERN; She eats 3 meals and 3 snacks at home PHYSICAL ACTIVITY; She does not have regular exercise schedule at home Review of systems: REVEIW OF SYSTEMS 10 point review of systems was obtained, it was negative except for symptoms mentioned above Past Medical History: Past Medical History: Diagnosis Date ??? Anxiety ??? Bronchitis ??? Diabetes mellitus ??? Gastrointestinal ulcer ??? GERD (gastroesophageal reflux disease) ??? Hx of insertion of insulin pump has been removed ??? Hypercholesteremia ??? Hypotension ??? UTI (urinary tract infection) Surgical History: No past surgical history on file. Allergies: Allergies Allergen Reactions ??? Peanut-Containing Drug Products Anaphylaxis ??? Latex Hives Social History: Social History Socioeconomic History ??? Marital status: Spouse name: Not on file ??? Number of children: Not on file ??? Years of education: Not on file ??? Highest education level: Not on file Social Needs ??? Financial resource strain: Not on file ??? Food insecurity - worry: Not on file ??? Food insecurity - inability: Not on file ??? Transportation needs - medical: Not on file ??? Transportation needs - non-medical: Not on file Occupational History ??? Not on file Tobacco Use ??? Smoking status: Current Every Day Smoker Types: Cigarettes ??? Smokeless tobacco: Never Used Substance and Sexual Activity ??? Alcohol use: No Frequency: Never ??? Drug use: No ??? Sexual activity: Not on file Other Topics Concern ??? Not on file Social History Narrative ??? Not on file Family History: Family History Problem Relation Age of Onset ??? Diabetes Mother ??? Asthma Mother Medications: No current outpatient medications on file. Weight: Last Recorded Weight 04/10/18 0427 Weight: 50.4 kg (111 lb 1.8 oz) Height: Ht Readings from Last 1 Encounters: 04/08/18 5' 5 (1.651 m) BMI: Body mass index is 18.49 kg/m??. Current Vitals: Vitals: 04/11/18 0617 BP: 100/65 Pulse: Resp: Temp: SpO2: Physical Exam: PHYSICAL EXAMINATION: GENERAL: well-developed, well-nourished .No apparent distress. Alert and oriented x3. VITAL SIGNS: As above HEENT: Head is normocephalic and atraumatic. Extraocular muscles are intact. Pupils are equal, round, and reactive to light and accommodation. Nares appeared normal. Mouth is well hydrated and without lesions. Mucous membranes are moist. Posterior pharynx clear of any exudate or lesions. NECK: Supple. No carotid bruits. No lymphadenopathy, no acanthosis or skin tag on ncek LUNGS: Clear to auscultation. Normal respiratory effort HEART: Regular rate and rhythm without murmur. ABDOMEN: Soft, nontender, and nondistended. Positive bowel sounds. No hepatosplenomegaly was noted. EXTREMITIES: Without any cyanosis or edema. NEUROLOGIC: Grossly intact. Power is 5/5 in all extremities. Reflexes 1+ PSYCHIATRIC: Normal mood and affect. Labs: Recent Results (from the past 24 hour(s)) URINALYSIS Collection Time: 04/10/18 11:40 AM Result Value Ref Range COLOR YELLOW TRANSPARENCY HAZY Specific [place] (U) 1.013 1.002 - 1.035 U PH 6.0 5 - 8 PROTEIN, URINE NEGATIVE NEGATIVE URINE GLUCOSE NEGATIVE NEGATIVE MG/DL U KETONES 20 (A) NEGATIVE Urine Bilirubin NEGATIVE NEGATIVE BLOOD NEGATIVE NEGATIVE NITRITES NEGATIVE NEGATIVE UROBILINOGEN NORMAL 0 - 1 EU/DL LEUKOCYTE ESTERASE NEGATIVE NEGATIVE RBC/HPF <1 0 - 3 /HPF WBC/HPF 1 0 - 6 /HPF BACTERIA (URINE) NONE /HPF SQUAMOUS EPITHELIALS 12 POCT glucose Collection Time: 04/10/18 2:31 PM Result Value Ref Range GLUCOSE POC 54 (L) 70 - 109 POCT glucose Collection Time: 04/10/18 2:49 PM Result Value Ref Range GLUCOSE POC 87 70 - 109 POCT glucose Collection Time: 04/10/18 4:21 PM Result Value Ref Range GLUCOSE POC 168 (H) 70 - 109 POCT glucose Collection Time: 04/10/18 8:17 PM Result Value Ref Range GLUCOSE POC 237 (H) 70 - 109 POCT glucose Collection Time: 04/10/18 9:31 PM Result Value Ref Range GLUCOSE POC 188 (H) 70 - 109 POCT glucose Collection Time: 04/10/18 11:33 PM Result Value Ref Range GLUCOSE POC 168 (H) 70 - 109 POCT glucose Collection Time: 04/11/18 3:38 AM Result Value Ref Range GLUCOSE POC 130 (H) 70 - 109 POCT glucose Collection Time: 04/11/18 5:33 AM Result Value Ref Range GLUCOSE POC 95 70 - 109 CBC, AUTO, NO DIFF Collection Time: 04/11/18 7:48 AM Result Value Ref Range WBC 2.6 (L) 4.0 - 10.8 x10'3/uL RBC 3.95 (L) 4.10 - 5.40 x10'6/uL HGB 12.1 12.0 - 16.0 G/DL HCT 34.5 (L) 36.0 - 47.0 % MCV 87.3 78.0 - 100.0 FL MCH 30.6 27.0 - 31.0 PG MCHC 35.1 33.0 - 36.0 G/DL RDW 11.7 11.5 - 14.5 % PLT 167 150 - 350 x10'3/uL MPV 9.6 7.4 - 10.4 FL BASIC METABOLIC PANEL Collection Time: 04/11/18 7:48 AM Result Value Ref Range SODIUM 139 136 - 145 MMOL/L POTASSIUM 3.5 3.5 - 5.1 MMOL/L CHLORIDE 104 98 - 107 MMOL/L CO2 29.3 21.0 - 32.0 MMOL/L GLUCOSE 55 (L) 74 - 106 MG/DL BUN 5 (L) 7 - 18 MG/DL CREATININE 0.55 0.55 - 1.02 MG/DL CALCIUM 8.4 8.4 - 10.5 MG/DL ANION GAP 5.7 MMOL/L OSMOLALITY (CALC) 283 MOSM/KG eGFR Non-Afr. Amer. >90 >90 ML/MIN/1.73 M2 eGFR Afr. Amer. >90 >90 ML/MIN/1.73 M2 POCT glucose Collection Time: 04/11/18 8:42 AM Result Value Ref Range GLUCOSE POC 43 (L) 70 - 109 POCT glucose Collection Time: 04/11/18 9:10 AM Result Value Ref Range GLUCOSE POC 74 70 - 109 POCT glucose Collection Time: 04/11/18 10:28 AM Result Value Ref Range GLUCOSE POC 229 (H) 70 - 109 Problem List: Patient Active Problem List Diagnosis ??? Diabetic ketoacidosis ??? High anion gap metabolic acidosis ??? Type 1 diabetes mellitus ??? Hyponatremia ??? Hyperglycemia ??? Hyperlipidemia ??? Smoker ??? Anxiety ??? Depression ??? UTI (urinary tract infection) Assessment: Ms. Steph Roberto, is a 27-year-old female, with DM type 2 who was admitted for DKA and she had an episode of sever hypoglycemia today morning after that her insulin was held and she had hyperglycemia with bg of 243. In the hospital her insulin requirement is less because she eats differently at home and her home diet is high in carbs while in the hospital she is on carbohydrate consistent diet. I will adjust herinsulin regimen. I will start her on Lispro 6 units AC TID in addition to correctional scale of 1:50 >150 --Lantus 20 units at HS -- Accucheck AC and HS --Please call [facility] for BG < 70 or > 280 -- Carbohydrate consistent diet Thank you for consulting us, will follow HUI SAMPSON MD 04/11/2018 * Wallace Neville NP - 04/10/2018 1:32 PM CDTAssociated Order(s): IP CONSULT TO GASTROENTEROLOGY Gastroenterology Consult Note Consulting Provider: WALLACE NEVILLE NP Attending Provider: Sanjana Samson MD PCP: No primary care provider on file. Reason for Consult: Abdominal pain, nausea, vomiting HPI: Steph Roberto is an 27-year-old female.consulted for abdominal pain, nausea, and vomiting. Patient states that she has been having lower abdominal pain for several months. Patient states that she only has 1-2 BM per week, but when she does have a BM it is loose. She describes having occasional extreme abdominal pain that causes her to experience nausea and vomiting. She states that sometimes when she vomits it is black in color. Patient also adds that she has on occasion had black stool. Patient denies any history of EGD, but states that she had a colonoscopy at the age of 13 or 14. Past Medical History: Diagnosis Date ??? Anxiety ??? Bronchitis ??? Diabetes mellitus ??? Gastrointestinal ulcer ??? GERD (gastroesophageal reflux disease) ??? Hx of insertion of insulin pump has been removed ??? Hypercholesteremia ??? Hypotension ??? UTI (urinary tract infection) Allergies: Allergies Allergen Reactions ??? Peanut-Containing Drug Products Anaphylaxis ??? Latex Hives Social History Tobacco Use ??? Smoking status: Current Every Day Smoker Types: Cigarettes ??? Smokeless tobacco: Never Used Substance Use Topics ??? Alcohol use: No Frequency: Never No past surgical history on file. Family History Problem Relation Age of Onset ??? Diabetes Mother ??? Asthma Mother No current facility-administered medications on file prior to encounter. Current Outpatient Medications on File Prior to Encounter Medication Sig ??? amoxicillin-clavulanate 875-125 MG tablet Take 1 tablet by mouth 2 (two) times daily. ??? benzonatate 100 MG capsule Take 200 mg by mouth 3 (three) times daily as needed for Cough. ??? insulin glargine 100 UNIT/ML injection (VIAL) Inject 20 Units into the skin 2 (two) times daily. ??? insulin lispro 100 UNIT/ML injection (VIAL) Inject 10 Units into the skin 3 (three) times dailybefore meals. This is average dose, but uses sliding scale with it ??? B-D UF III MINI PEN NEEDLES 31G X 5 MM Misc USE FOR INJECTIONS FOUR TIMES A DAY ??? Blood Glucose Monitoring Suppl (ONE TOUCH ULTRA MINI) w/Device Kit see administration instructions. ??? KETOCARE Strip USE FOR TESTING DIRECTED ??? NOVOLOG FLEXPEN 100 UNIT/ML injection (PEN) INJECT THREE TIMES A DAY AFTER MEALS PER INSULIN TOCARB RATIO AND SLIDING SCALE. UP TO 90 UNITS DAILY ??? ondansetron 4 MG disintegrating tablet dissolve 1 tablet BY MOUTH EVERY 6 HOURS NEEDED FOR NAUSEA / VOMITING ??? ONE TOUCH ULTRA TEST STRIPS test strip CHECK BLOOD SUGARS FOUR TIMES A DAY NEEDED ??? ONETOUCH DELICA LANCETS 33G Misc TEST BLOOD BLOOD SUGAR FOUR TIMES A DAY AND NEEDED Principal Problem: Diabetic ketoacidosis SNOMED CT(R): DIABETIC KETOACIDOSIS Active Problems: High anion gap metabolic acidosis SNOMED CT(R): METABOLIC ACIDOSIS, INCREASED ANION GAP (IAG) Type [address](R): TYPE 1 DIABETES MELLITUS Hyponatremia SNOMED CT(R): HYPONATREMIA Hyperglycemia SNOMED CT(R): HYPERGLYCEMIA Hyperlipidemia SNOMED CT(R): HYPERLIPIDEMIA Smoker SNOMED CT(R): SMOKER Anxiety SNOMED CT(R): ANXIETY Depression SNOMED CT(R): DEPRESSIVE DISORDER UTI (urinary tract infection) SNOMED CT(R): URINARY TRACT INFECTIOUS DISEASE Review of Systems See HPI for positives Constitutional: Negative for chills, fever and weight loss. HENT: Negative for nosebleeds and sore throat. Eyes: Negative for discharge. Respiratory: Negative for cough and shortness of breath. Cardiovascular: Negative for chest pain and palpitations. Genitourinary: Negative for hematuria. Musculoskeletal: Negative for back pain and joint pain. Skin: Negative for rash. Neurological: Negative for dizziness and loss of consciousness. Endo/Heme/Allergies: Does not bruise/bleed easily. Psychiatric/Behavioral: Negative for memory loss. The patient is not nervous/anxious. All other systems reviewed and are negative. Blood pressure 106/68, pulse 86, temperature 98.7 ??F (37.1 ??C), temperature source Oral, resp. rate 14, height 5' 5 (1.651 m), weight 50.4 kg (111 lb 1.8 oz), SpO2 96 %. Physical Exam Constitutional: Patient is oriented to person, place, and time. Appears well- developed and well-nourished. Head: Normocephalic and atraumatic. Mouth/Throat: Oropharynx is clear and moist. Eyes: Conjunctivae are normal. Pupils are equal, round, and reactive to light. No scleral icterus. Cardiovascular: Normal rate, regular rhythm and normal heart sounds. Pulmonary/Chest: Effort normal and breath sounds normal. Abdominal: Soft. Tenderness. Musculoskeletal: He exhibits no edema. Lymphadenopathy: No cervical adenopathy. Neurological: Patient is alert and oriented to person, place, and time. Skin: No rash noted. No erythema. Labs: Recent Labs Lab 04/08/18 1241 04/09/18 0405 04/10/18 0330 WBC 8.0 5.9 3.8* RBC 4.09* 3.31* 3.67* HGB 12.6 10.2* 11.3* HCT 37.2 29.1* 32.8* MCV 91.0 87.9 89.4 MCH 30.8 30.8 30.8 MCHC 33.9 35.1 34.5 PLT 210 210 182 RDW 11.9 11.9 11.9 MPV 10.3 9.7 9.8 LYMC 1.81 -- -- MONOC 0.49 -- -- EOSC 0.04 -- -- BASOC 0.06 -- -- Recent Labs Lab 04/08/18 1213 04/09/18 0017 04/09/18 0405 04/10/18 0329 NA 132* < > 140 141 136 136 K 4.4 < > 3.8 3.6 4.2 4.2 CL 104 < > 111* 113* 105 105 CO2 12.3* < > 18.5* 19.2* 24.3 24.5 AGAP 15.7 < > 10.5 8.8 6.7 6.5 BUN 16 < > 6* 5* 5* CR 0.95 < > 0.61 0.62 0.63 GFRNON 81* < > >90 >90 >90 GFR >90 < > >90 >90 >90 GLU 264* < > 174* 171* 245* CA 7.8* < > 7.7* 7.4* 8.1* TP 7.8 -- -- -- -- ALB 3.7 -- -- -- -- TBIL 0.6 -- -- -- -- ALKP 85 -- -- -- -- AST 18 -- -- -- -- ALT 27 -- -- -- -- < > = values in this interval not displayed. Recent Labs Lab 04/08/18 1313 PTT 24.6 INR 1.1 Radiology: Use Echocardiogram Result Date: 04/09/2018 Echocardiography Report Pat.Name: STEPH ROBERTO Armida Pat.ID: [id number] .Date: 04/08/2018 Refer.MD:LISSY GODFREY Exam Time: 2:27:00 PM Study Type:ECHO WITH CARDIAC DOPPLER COMP Height: 165cm Weight: 50kg BSA: 1.53 m2 Age: 5 1990,27Y Sex: FEMALE BP: 108/57 HR: 97 bpm Sonogrphr: Noel Alfonso [facility] Pat. Stat.:Inpatient Room: [place] [address] CPT: 97570 Reason for Study:LV function assessment Procedures:2D, M-mode, Doppler, Color Flow, Portable Race: W ++++++++++++++++++++++++++++++++++++ SUMMARY: ++++++++++++++++++++++++++++++++++++ The calculated ejection fraction is 67%. Left ventricular diastolic function is normal. The right ventricular size is normal. Right ventricular systolic function is normal. Right ventricular systolic pressure is 25 mmHg. No significant valve stenosis or regurgitation. ++++++++++++++++++++++++++++++++++++ FINDINGS: ++++++++++++++++++++++++++++++++++++ LV:The left ventricular size is normal. The left ventricular systolic function is normal. The calculated ejection fraction is 67%. The septal E/e' is indeterminate at 8-15. The lateral E/e' is normal at <8. The average E/e' is normal at <8. Left ventricular diastolic function is normal. Left ventricular filling pressure is normal. Overall wall motion is normal. All uribe are normal WM: Wall motion appears normal in all segments. LVOT: The left ventricular outflow tract size is normal. The LVOT stroke volume index is 41.8 ml/m2. RV: The right ventricular size is normal. Right ventricular systolic function is normal. Right ventricular systolic pressure is 25 mmHg. TAPSE = 21.1mm (<16 mmindicates systolic RV dysfunction). LA: The left atrial volume is normal ( less than 34 ml/M2). RA:Right atrial size is normal. YORDY: No evidence of pericardial effusion. AO: Aortic root is not dilated. PA: Estimated right atrial pressure of 3 mmHg. PVn: The pulmonary vein doppler wave form is normal suggestive of normal left atrial pressures. SVn: Inferior vena cava shows >50% collapse with respiration consistent with normal right atrial pressure. AV: The aortic valve is trileaflet. No evidence of aortic valve stenosis. No evidence of aortic valve regurgitation. MV: Trace mitral regurgitation. No evidence of mitral stenosis. PV: The pulmonic valve is normal There is trace pulmonic regurgitation TV: The tricuspid valve appears structurally normal. There is trace tricuspid regurgitation. ++++++++++++++++++++++++++++++++++++ MEASUREMENTS: ++++++++++++++++++++++++++++++++++++ DOPPLER LVOT LVOTpkPG 5 mmHg LVOTmnPG 2 mmHg LVOTpkVel 113 cm/s (70-110)* LVOT SV 64 ml Index 41.8 ml/m2 LVOT TVI 20.5 cm LVOT CO 106.6688 l/min AV Forward Flow AV TVI 25.2 cm AV pkPG 7 mmHg AV pkVel 135 cm/s (100-170) Area (TVI) 2.55 cm2 (3-5)* Index 1.67 cm2/m2 AV mnVel 92.8 cm/s Area (Jesus) 2.63 cm2 (3-5)*AV mnPG 4 mmHg MV Forward Flow MV DeTm 151 msec MV E/A 1 MV mnPG 3 mmHg MV pkE 90.7 cm/s (60-130) MV pkPG 6 mmHg MV pkA 94.1 cm/s TV Regurg Flow TV pkPG 22 mmHg TV pkVel 235 cm/s (30-70)* Lat E' Late 14.1 cm/s Lat E/E' Lat E/e 6.4 Med E' Med e 9.57 cm/s Med E/E' Med E/e 9.5 Aortic Valve Aortic Valve Ar 1.67 Aortic Valve Ve 0.84 AV DI Value 0.8 DORIS (VTI) Index Value 1.67 LV Mass 2D Value 79.7 gLV Mass Unfaf9S Value 52.1 g/m2 RA Volume Atrial Vaz 3.99 cm Atrial Vaz 8.17 cm2 Atrial Vaz 14.2 ml Right Ventricle Right Ventricle 13.5 cm/s 2D Left Ventricle LVIDd 4.08 cm (3.6- 5.2) LV EF(Bi-Plane) 66.5 % (55-75) LVIDs 2.56 cm (2.3-3.9) LVPW LVPWd 0.706 cm LVPWth 43.1 % LVPWs 1.01 cmVentricular Septum IVSd 0.676 cm IVSs 0.879 cm Aorta Ao Rtd 2.9 cm (zsc 1.4) Ao Asc 2.6 cm (zsc 1.6) Index 1.7 cm/m2 LVOT LVOT 2 cm Ratios IVS Aortic Sinotubular Junction Diameter 2.51 cm LA Biplane LAVol I BP 17.6 ml/m2 Right Ventricle Right Ventricle 2.46 cm Right Ventricle 2.53 cm Major [place] 6.37 cm MMODE TA Tricuspid Annul 2.11 cm ++++++++++++++++++++++++++++++++++++ WALL MOTION: ++++++++++ ++++++++++++++++++++++++++ RESTING WALL MOTION: All uribe are normal Wall Index = 1 Signed 04/09/2018 06:59 AM Adama Hicks M.D. Xr Chest Portable Result Date: 04/08/2018 Exam description: Chest 1 view Exam Time : 1407 hours Comparison Film : 11/28/2015 Indications: DKA, SOB Findings: Semiupright portable AP film obtained.Heart and mediastinum within normal limits. Lungs clear of active disease. No consolidation, CHF or effusions. No pneumothorax. No acute bony abnormality. IMPRESSION: No active chest disease. Interpreted By: Israel Huber MD, 04/08/2018 2:30 PM Order Doctor: LISSY GODFREY Us Retroperitoneal Comp Result Date: 04/08/2018 EXAM: ULTRASOUND BILATERAL KIDNEYS AND BLADDER CLINICAL STATEMENT: Evaluate for Pyelonephritis COMPARISON: None available. TECHNIQUE: Focused sonographic images of the kidneys and bladder are obtained to assess grayscale appearance color flow. FINDINGS: The right kidney measures 9.7 x 4.4 x 4.7 cm.The right renal parenchymal echogenicity is unremarkable . There is no evidence for masses, calculi, or hydronephrosis.. There is appropriate color flow to the right kidney. The left kidney measures 11.7 x 5.2 x 4.6 cm. The left renal parenchymal echogenicity is unremarkable . There is no evidence for masses, calculi, or hydronephrosis. . There is appropriate color flow to the left kidney. The handy dder is physiologically distended. There is normal wall thickness. The Left and right ureteral jetsis identified. IMPRESSION: Unremarkable ultrasound of the kidneys Nonvisualization of the ureters Interpreted By: Harpreet Khan, 04/08/2018 3:22 PM Order Doctor: ANSON DOMINIQUE Assessment/Recommendations: Patient is a 27-year-old female with a past medical history of DMI, HLD, GERD, anxiety, depression,smoker, and UTI who presented to [facility] ICU from [facility] in [place] for DKA. GI was consulted for abdominal pain, nausea, and vomiting. Hemoglobin stable at 11.3. -Miralax daily for constipation -Minimize pain medication -PPI daily -Gastric emptying study when not on pain medications (outpatient) -Possible EGD if there is a significant drop in hemoglobin or patient experiences overt bleeding. WALLACE NEVILLE NP 04/10/2018 Cosigned by Aissatou Hughes MD at 04/10/2018 8:26 PM CDT Associated attestation - Aissatou Hughes MD - 04/10/2018 8:26 PM CDT I, AISSATOU HUGHES MD, performed a Consultation and History & Physical examination of the patientand discussed the management with the Advanced Practice Provider (ERIC). I reviewed the ERIC's note and agree with the findings and plan of care, except as I have documented. Plan of care developed under my direct supervision. Will order CT abdomen since pt reports concern about FH of pancreatic cancer. Will order TSH for weight loss & heat intolerance. Pt reports she had a GES before which was normal. If PPI does not improve symptoms in 2 weeks, will plan for outpatient EGD. * Scott Gonzalez MD - 04/10/2018 12:00 AM CDT HISTORY OF PRESENT ILLNESS: This is a 27-year-old woman who has a prior history of type 1 diabetes mellitus, who was admitted with diabetic ketoacidosis, electrolyte disorders with a urinary tract infection. The patient has been treated for such and retrospectively over the last 2 months has been having some palpitations described as a butterfly in her chest. No chest pressure or chest pain, just an unusual sensation. This usually occurs at night when she is sleeping, not during the daytime. Nothing seems to provoke it. Nothing occurring in the previous day or previous evening prior to going to bed associated with these spells seem to be provoking. Denies TIA, denies CVA, denies angina. Overnight, the patient on telemetry was thought to possibly have a rhythm abnormality developed. This is asymptomatic, short duration while she was sleeping. PAST MEDICAL HISTORY: Includes that of: 1. Diabetes mellitus type 1. 2. Hyperlipidemia. 3. GERD. 4. Anxiety disorder. 5. Depression. 6. Smoking history. 7. UTI, this hospitalization SOCIAL HISTORY: Smoker, as above. FAMILY HISTORY: Mother with asthma and diabetes. ALLERGIES: HAS ALLERGY TO PEANUTS -ANAPHYLAXIS AND LATEX. - HIVES. REVIEW OF SYSTEMS: Otherwise negative. MEDICATIONS: Currently include Amoxicillin-Clavulanate 875/125 twice a day, Tessalon Perles 3 timesa day p.r.n. narcotics for pain, Glargine and Lispro Insulin, Magnesium Oxide, Flagyl 500 mg twice a day, Nitrofurantoin 100 mg twice a day, Pravastatin 20 mg a day, Protonix 40 mg a day, and stool softener. PHYSICAL EXAMINATION: General: Patient is awake, she is alert. She appears to be thin, certainly not obese. Vital Signs: Blood pressure is 118/75, heart rate is 86, respiratory rate is 14, patient isafebrile. Eyes: There are no xanthelasma. Ears, Nose and Throat: Oral mucosa is without pallor or cyanosis. Neck: Supple, without jugulovenous distention. Carotids are 2+ bilaterally, without bruits. Respiratory: No intercostal retractions noted. Chest is clear to auscultation. Cardiovascular: The point of maximal impulse is of normal size and nondisplaced. Normal S1 and S2, without S3 or S4 gallop. No significant murmur is present. Abdomen: Benign, without hepatosplenomegaly, mass or tenderness. The abdominal aorta is not palpably enlarged. No abdominal bruit. Extremities: No clubbing, cyanosis, or edema. The femoral and pedal pulses are 2+ bilaterally. Musculoskeletal: No severe kyphoscoliosis. Skin: Without evidence of xanthoma. Neurologic: Alert and oriented x3. Affect appropriate. Neurologic examination is grossly normal. A 12-lead EKG reveals normal sinus rhythm, minimal nonspecific ST-T wave changes. Laboratories were reviewed. IMPRESSION: Telemetry revealed possibly atrial flutter, atypical in nature at a cycle length of 200milliseconds with apparent approximately 5-1 AV conduction. I am not, however, convinced that it isin fact an atrial arrhythmia as the QRS cycle length does not seem to change virtually at all. There were minor fluctuations in the RR interval, but there does not appear to be any difference in the RR interval compared to the cycle length of the QRS not associated with the deflections on the baseline. Cannot rule out the possibility of movement of the arms or leads during this timeframe. On the other hand, I am not convinced that is not a problem. In any event, it was very short duration, lessthan 15 seconds and asymptomatic occurring in the timeframe of diabetic ketoacidosis. At this point, I will continue to monitor, obtain echocardiogram, and I believe thyroid function thyroid function should have already been ordered. #[id number] /[id number] * Saba Judge MD - 04/08/2018 3:44 PM CDTAssociated Order(s): IP CONSULT TO INSTRUMENT MECHANICS SUPERVISOR OBGYN Consult Note Patient Name: Steph Roberto Date of : 1990 Admission Date: 04/08/2018 Attending Physician: César Jenkins MD Resident Physician: Saba Judge MD Reason for Consultation: R/O pelvic inflammatory disease History of Present Illness: Steph Roberto is a 27-year-old with Type 1 Diabetes who presents as a transport from [facility] in [place] due to concern for diabetic ketoacidosis. MINDI BEHAVIORAL HEALTH COUNSELOR is consulted dueto concern for pelvic inflammatory disease. She was initially seen at [facility] 4 days ago with cough, urinary frequency and nausea and vomiting. It was determined that she had a UTI and bronchitis and was sent home on augmentin. For the past 2 days her nausea and vomiting has become worse and she was unable to tolerate PO. She additionally began to experience lower cramping abdominal pain. She was found to have laboratory studies consistent with diabetic ketoacidosis and was transpor jacob from [place] [facility] to [facility] ICU. Her abdominal pain is localized to the suprapubic area and rated 8/10 that she describes as cramping pain. She also reports malodorous yellow vagnal discharge for the past few months. Denies any fevers, chills, vaginal spotting, diarrhea. OBHx: G1 IUFD at 8 months G2 C/S due to arrest of stage 2 GYNHx: LMP: 03/16/18, has regular menses q4 weeks. Last 3 days. Reports last pap 7 months ago but unable to see this result in [employer]. Reports remote history of yeast and chlamydia infection 6 years ago for which she was treated. She has had 2 sexual partners in the past year and does not consistently use condoms. Uses OCPs for contraception but reports poor compliance as the result of her nausea and vomiting. PMH: Type 1 diabetes, seizure disorder, last seizure 6 years ago PSxH: x1, cholecystectomy, excision of chest lesion FH: Reports history of cervical and ovarian cancer in her aunts on both her maternal and paternal sides SOC: current smoker, smokes 4-5 cig/day, denies alcohol or illicit drug use MEDS: lantus 20U QAM, lantus 20U QHS, humalog sliding scale ALL: Allergies Allergen Reactions ??? Peanut-Containing Drug Products Anaphylaxis ??? Latex Hives ROS: GEN: denies fever, weight loss, or weight gain. Reports fatigue, weakness HEAD: denies headaches, dizziness, or lightheadedness. EYES: denies visual changes or blurry vision. EARS: denies hearing loss or ear pain. NOSE/THROAT: denies rhinnorhea, or painful swallowing. Reports sore throat. CHEST: denies chest pain, SOB, or palpitations. Reports cough. GI: denies diarrhea, melena, or hematochezia. Reports nausea, vomiting, constipation- has not had bowel movement in a few days. : denies urinary urgency, dysuria, hematuria, or urinary incontinence. Reports increased urinary frequency. SKIN: denies any rashes or lesions. ADMISSIONS ADVISOR: see HPI PHYSICAL Temp: [98.8 ??F (37.1 ??C)] 98.8 ??F (37.1 ??C) Pulse: [95-108] 104 Resp: [16-26] 16 BP: (107-117)/(57-68) 117/63 GEN: AAOx3, thin woman, not in acute distress. HEENT: normocephalic, atraumatic CV: RRR, no murmurs PULM: CTAB, breaths non-labored on room air ABD: soft, nontender, non-distended. Positive bowel sounds. Well healed phannenstiel scar No palpable masses. BACK: no CVA tenderness bilaterally EXT: warm, well perfused, no edema. SKIN: no lesions : normal appearing external genitalia. Vaginal mucosa is pink and moist. Copious amounts of milkywhite-yellow discharge seen from the cervix. Cervix is friable with bleeding upon collection of pap. SVE: cervix is closed. Bimanual exam well tolerated. Uterus is anteverted with no uterine tenderness. No adnexal fullness appreciated. No cervical motion tenderness. LABS Results for orders placed or performed during the hospital encounter of 04/08/18 XR CHEST PORTABLE Narrative Exam description: Chest 1 view Exam Time : 1407 hours Comparison Film : 11/28/2015 Indications: DKA, SOB Findings: Semiupright portable AP film obtained.Heart and mediastinum within normal limits. Lungs clear of active disease. No consolidation, CHF or effusions. No pneumothorax. No acute bony abnormality. Impression IMPRESSION: No active chest disease. Interpreted By: Israel Huber MD, 04/08/2018 2:30 PM Order Doctor: LISSY GODFREY COMPREHENSIVE METABOLIC PANEL Result Value Ref Range SODIUM 132 (L) 136 - 145 MMOL/L POTASSIUM 4.4 3.5 - 5.1 MMOL/L CHLORIDE 104 98 - 107 MMOL/L CO2 12.3 (L) 21.0 - 32.0 MMOL/L GLUCOSE 264 (H) 74 - 106 MG/DL BUN 16 7 - 18 MG/DL CREATININE 0.95 0.55 - 1.02 MG/DL CALCIUM 7.8 (L) 8.4 - 10.5 MG/DL TOTAL BILIRUBIN 0.6 0.2 - 1.0 MG/DL ALK PHOS 85 37 - 98 U/L AST 18 15 - 37 U/L ALT 27 13 - 56 U/L TOTAL PROTEIN 7.8 6.4 - 8.2 G/DL ALBUMIN 3.7 3.4 - 5.0 G/DL ANION GAP 15.7 MMOL/L OSMOLALITY (CALC) 284 MOSM/KG eGFR Non-Afr. Amer. 81 (L) >90 ML/MIN/1.73 M2 eGFR Afr. Amer. >90 >90 ML/MIN/1.73 M2 CK (CPK) Result Value Ref Range CPK 52 26 - 192 U/L TROPONIN, QUANT Result Value Ref Range TROPONIN I <0.015 <0.045 ng/mL. MAGNESIUM Result Value Ref Range MAGNESIUM 1.7 1.6 - 2.6 MG/DL LACTIC ACID Result Value Ref Range LACTIC ACID 0.8 0.4 - 2.0 MMOL/L PHOSPHORUS, INORGANIC PHOSPHATE Result Value Ref Range PHOSPHORUS 2.6 2.5 - 4.9 MG/DL THYROID STIM HORMONE, TSH Result Value Ref Range TSH 3.200 0.358 - 3.740 uIU/ML LIPASE Result Value Ref Range LIPASE 60 (L) 73 - 393 UNITS/L CBC W/DIFF AUTOMATED Result Value Ref Range WBC 8.0 4.0 - 10.8 x10'3/uL RBC 4.09 (L) 4.10 - 5.40 x10'6/uL HGB 12.6 12.0 - 16.0 G/DL HCT 37.2 36.0 - 47.0 % MCV 91.0 78.0 - 100.0 FL MCH 30.8 27.0 - 31.0 PG MCHC 33.9 33.0 - 36.0 G/DL RDW 11.9 11.5 - 14.5 % PLT 210 150 - 350 x10'3/uL MPV 10.3 7.4 - 10.4 FL ABS. NEUTROPHILS TOTAL 5.55 1.60 - 8.30 x10'3/uL ABS. LYMPHOCYTES 1.81 0.80 - 4.70 x10'3/uL ABS. MONOCYTES 0.49 0.00 - 1.50 x10'3/uL ABS. EOSINOPHILS 0.04 0.00 - 0.40 x10'3/uL ABS. BASOPHILS 0.06 0.00 - 0.20 x10'3/uL ABS. IMMATURE GRANULOCYTES 0.02 0.00 - 0.03 x10'3/uL ABS. NUCLEATED RBC'S 0.00 0.0 x10'3/uL PROTHROMBIN TIME, VENOUS Result Value Ref Range Protime 13.7 11.6 - 14.3 SEC INR 1.1 0.9 - 1.1 THROMBOPLASTIN TIME PARTIAL,PTT Result Value Ref Range PTT 24.6 22.0 - 35.0 SEC URINALYSIS Result Value Ref Range COLOR LIGHT YELLOW TRANSPARENCY SLIGHTLY CLOUDY Specific Moseley (U) 1.017 1.002 - 1.035 U PH 5.0 5 - 8 PROTEIN, URINE NEGATIVE NEGATIVE URINE GLUCOSE >=500 (A) NEGATIVE MG/DL U KETONES 80 (A) NEGATIVE Urine Bilirubin NEGATIVE NEGATIVE BLOOD NEGATIVE NEGATIVE NITRITES NEGATIVE NEGATIVE UROBILINOGEN NORMAL 0 - 1 EU/DL LEUKOCYTE ESTERASE NEGATIVE NEGATIVE RBC/HPF 3 0 - 3 /HPF WBC/HPF 1 0 - 6 /HPF BACTERIA (URINE) NONE /HPF SQUAMOUS EPITHELIALS 20 TEST URINE Result Value Ref Range PREG TEST NEGATIVE BETA-HYDROXYBUTYRATE Result Value Ref Range BETA-HYDROXYBUTYRATE 6.1 (H) 0.0 - 0.3 MMOL/L Blood gas, venous Result Value Ref Range pH-Venous 7.20 (L) 7.32 - 7.42 PCO2 29.7 (L) 41 - 51 MMHG pO2-Venous 116.0 (H) 25 - 40 MM HG Bicarb-Venous 11.2 (L) 24 - 28 MMOL/L TCO2 12.1 (L) 25 - 40 MMOL/L Base Deficit,Venous 15.6 (H) 0 - 2 MMOL/L CARBONIC ACID, VENOUS 0.9 MMOL/L LIPID PANEL Result Value Ref Range CHOLESTEROL 206 MG/DL TRIGLYCERIDE 385 MG/DL HDL 43 (L) >49 MG/DL LDL (CALCULATED) 86 MG/DL VLDL Calculation 77 MG/DL CHOL/HDL RATIO 4.8 LDL/HDL 2.0 NON HDL CHOLESTEROL 163 MG/DL US RETROPERITONEAL COMP Narrative EXAM: ULTRASOUND BILATERAL KIDNEYS AND BLADDER CLINICAL STATEMENT: Evaluate for Pyelonephritis COMPARISON: None available. TECHNIQUE: Focused sonographic images of the kidneys and bladder are obtained to assess grayscale appearance color flow. FINDINGS: The right kidney measures 9.7 x 4.4 x 4.7 cm. The right renal parenchymal echogenicity is unremarkable . There is no evidence for masses, calculi, or hydronephrosis.. There is appropriate color flow to the right kidney. The left kidney measures 11.7 x 5.2 x 4.6 cm. The left renal parenchymal echogenicity is unremarkable . There is no evidence for masses, calculi, or hydronephrosis. . There is appropriate color flow to the left kidney. The bladder is physiologically distended. There is normal wall thickness. The Left and right ureteral jets is identified. Impression IMPRESSION: Unremarkable ultrasound of the kidneys Nonvisualization of the ureters Interpreted By: Harpreet Khan, 04/08/2018 3:22 PM Order Doctor: ANSON DOMINIQUE POCT glucose Result Value Ref Range GLUCOSE POC 247 (H) 70 - 109 ECG 12 lead Narrative [facility] [place] [address] [place] [address] Test Date: 2018-04-08 Pat Name: STEPH ROBERTO Department: 1 Room: [id number] Gender: Female Maintenance Instructor: TERESA RM : 1990 Requested By: LISSY GODFREY Order Number: [id number] Reading MD: Galen Hernandez Measurements Intervals [place] Rate: 99 P: 57 MA: 135 QRS: 68 QRSD: 73 T: 44 QT: 348 QTc: 447 Interpretive Statements SINUS RHYTHM ASSESSMENT/PLAN Steph Roberto is a 27-year-old with Type 1 Diabetes who presents as a transport from [facility] in [place] due to concern for diabetic ketoacidosis. MINDI BEHAVIORAL HEALTH COUNSELOR is consulted dueto concern for pelvic inflammatory disease. -Low concern for PID given no uterine or cervical motion tenderness, normal white count and afebrile. Vaginal discharge is likely physiologic or infectious etiology. -gonorrhea, chlamydia and vaginitis swabs collected. Pap collected -MINDI BEHAVIORAL HEALTH COUNSELOR will follow up results of swabs. No further testing for PID is recommended given this clinical picture. Please call for any additional concerns or questions. SABA JUDGE MD 04/08/2018 Cosigned by César Spain MD at 04/12/2018 2:01 PM CDT Associated attestation - César Spain MD - 04/12/2018 2:01 PM CDT Teaching Physician - I, CÉSAR SPAIN MD, performed a History and Physical examination of the patient and discussed the management with the resident. I reviewed the Resident's note and agree with the findings and plan of care, except as I have documented. documented in this encounter Nursing Notes * Milli Bean RN - 04/11/2018 3:40 PM CDT Patient leaving AMA. Risks of leaving against medical advice explained to patient. * Sarah Guzman RN - 04/11/2018 3:44 AM CDT Patient voiced concerns to ad writer about becoming hypoglycemic related to insulin dosages prescribedand being sent diabetic foods (diet soda, diet desserts, etc.). Patient states that that is not the way I eat at home so when I am served that food and given high amounts of insulin, I bottom out . Patient did have an hypoglycemic episode during day shift yesterday. Blood glucose has been stable during this shift but patient did refuse some humalog because she felt it would bottom her out . Gave patient education about importance of insulin and diet management. Will continue to monitor blood glucose closely. * Harjinder Olmstead RN - 04/10/2018 5:49 PM CDT Pt will go to new room on third floor directly after CT. Vitals WNL, report called to new nurse andall questions answered. HARJINDER OLMSTEAD RN documented in this encounter Plan of Treatment Not on file documented as of this encounter Procedures Procedure Name Priority Date/Time Associated Diagnosis Comments POCT GLUCOSE - ALARCON DOCKED DEVICE Routine 04/11/2018 12:43 PM CDT POCT GLUCOSE - ALARCON DOCKED DEVICE Routine 04/11/2018 10:28 AM CDT POCT GLUCOSE - ALARCON DOCKED DEVICE Routine 04/11/2018 9:10 AM CDT POCT GLUCOSE - ALARCON DOCKED DEVICE Routine 04/11/2018 8:42 AM CDT BASIC METABOLIC PANEL Routine 04/11/2018 7:48 AM CDT CBC, AUTO, NO DIFF Routine 04/11/2018 7: 48 AM CDT POCT GLUCOSE - ALARCON DOCKED DEVICE Routine 04/11/2018 5:33 AM CDT POCT GLUCOSE - ALARCON DOCKED DEVICE Routine 04/11/2018 3:38 AM CDT POCT GLUCOSE - ALARCON DOCKED DEVICE Routine 04/10/2018 11:33 PM CDT POCT GLUCOSE - ALARCON DOCKED DEVICE Routine 04/10/2018 9:31 PM CDT POCT GLUCOSE - ALARCON DOCKED DEVICE Routine 04/10/2018 8:[address] ABD+PEL W CON Today 04/10/2018 5:47 PM CDT POCT GLUCOSE - ALARCON DOCKED DEVICE Routine 04/10/2018 4:21 PM CDT POCT GLUCOSE - ALARCON DOCKED DEVICE Routine 04/10/2018 2:49 PM CDT POCT GLUCOSE - ALARCON DOCKED DEVICE Routine 04/10/2018 2:31 PM CDT ECG 12-LEAD Routine 04/10/2018 12:24 PM CDT URINALYSIS Nurse Collected Priority 04/10/2018 11:40 AM CDT POCT GLUCOSE - ALARCON DOCKED DEVICE Routine 04/10/2018 10:27 AM CDT CBC, AUTO, NO DIFF Routine 04/10/2018 3: 30 AM CDT BASIC METABOLIC PANEL Routine 04/10/2018 3:29 AM CDT ELECTROLYTE PANEL STAT 04/10/2018 3:2 9 AM CDT THYROID STIM HORMONE TSH Routine 04/10/2018 3:29 AM CDT PHOSPHORUS, INORGANIC PHOSPHATE Routine 04/10/2018 3:29 AM CDT MAGNESIUM STAT 04/10/2018 3:29 AM CDT MAGNESIUM Routine 04/10/2018 3:29 AM CDT POCT GLUCOSE - ALARCON DOCKED DEVICE Routine 04/10/2018 2:38 AM CDT POCT GLUCOSE - ALARCON DOCKED DEVICE Routine 04/09/2018 8:35 PM CDT POCT GLUCOSE - ALARCON DOCKED DEVICE Routine 04/09/2018 4:11 PM CDT POCT GLUCOSE - ALARCON DOCKED DEVICE Routine 04/09/2018 9:53 AM CDT POCT GLUCOSE - ALARCON DOCKED DEVICE Routine 04/09/2018 6:53 AM CDT POCT GLUCOSE - ALARCON DOCKED DEVICE Routine 04/09/2018 6:00 AM CDT POCT GLUCOSE - ALARCON DOCKED DEVICE Routine 04/09/2018 4:10 AM CDT BETA-HYDROXYBUTYRATE TIMED 04/09/2018 4:05 AM CDT BASIC METABOLIC PANEL TIMED 04/09/2018 4:05 AM CDT CBC, AUTO, NO DIFF Routine 04/09/2018 4: 05 AM CDT PHOSPHORUS, INORGANIC PHOSPHATE TIMED 04/09/2018 4:05 AM CDT MAGNESIUM TIMED 04/09/2018 4:05 AM CDT POCT GLUCOSE - ALARCON DOCKED DEVICE Routine 04/09/2018 2:04 AM CDT POCT GLUCOSE - ALARCON DOCKED DEVICE Routine 04/09/2018 12:17 AM CDT BETA-HYDROXYBUTYRATE TIMED 04/09/2018 12:17 AM CDT BASIC METABOLIC PANEL Routine 04/09/2018 12:17 AM CDT PHOSPHORUS, INORGANIC PHOSPHATE Routine 04/09/2018 12:17 AM CDT MAGNESIUM Routine 04/09/2018 12:17 AM CDT POCT GLUCOSE - ALARCON DOCKED DEVICE Routine 04/08/2018 11:11 PM CDT BETA-HYDROXYBUTYRATE Routine 04/08/2018 8:58 PM CDT BASIC METABOLIC PANEL TIMED 04/08/2018 8:58 PM CDT PHOSPHORUS, INORGANIC PHOSPHATE TIMED 04/08/2018 8:58 PM CDT MAGNESIUM TIMED 04/08/2018 8:58 PM CDT POCT GLUCOSE - ALARCON DOCKED DEVICE Routine 04/08/2018 7:14 PM CDT POCT GLUCOSE - ALARCON DOCKED DEVICE Routine 04/08/2018 6:10 PM CDT POCT GLUCOSE - ALARCON DOCKED DEVICE Routine 04/08/2018 5:10 PM CDT HIV - RAPID Routine 04/08/2018 4:30 PM CDT BASIC METABOLIC PANEL TIMED 04/08/2018 4:30 PM CDT SYPHILIS/RPR/VDRL; QUAL Routine 04/08/2018 4:30 PM CDT PHOSPHORUS, INORGANIC PHOSPHATE TIMED 04/08/2018 4:30 PM CDT POCT GLUCOSE - ALARCON DOCKED DEVICE Routine 04/08/2018 3:57 PM CDT VAGINITIS SCREEN Nurse Collected Priority 04/08/2018 3:28 PM CDT US RETROPERITONEAL COMP Today 04/08/2018 3:21 PM CDT USE ECHOCARDIOGRAM Routine 04/08/2018 3: 08 PM CDT CHLAMYDIA GC RNA Nurse Collected Priority 04/08/2018 3:00 PM CDT URINALYSIS Nurse Collected Priority 04/08/2018 2:25 PM CDT TEST URINE Nurse Collected Priority 04/08/2018 2:25 PM CDT URINE BACTERIA CULTURE Nurse Collected Priority 04/08/2018 2:25 PM CDT XR CHEST PORTABLE STAT 04/08/2018 2:0 5 PM CDT POCT GLUCOSE - ALARCON DOCKED DEVICE Routine 04/08/2018 1:52 PM CDT ECG 12-LEAD Routine 04/08/2018 1:15 PM CDT BETA-HYDROXYBUTYRATE TIMED 04/08/2018 1:13 PM CDT MRSA SCREENING Nurse Collected Priority 04/08/2018 1:13 PM CDT BLOOD GAS, VENOUS TIMED 04/08/2018 1:1 3 PM CDT PARTIAL THROMBOPLASTIN TIME,PTT Routine 04/08/2018 1:13 PM CDT PROTHROMBIN TIME, VENOUS Routine 04/08/2018 1:13 PM CDT HEMOGLOBIN, GLYCOSYLATED Routine 04/08/2018 12:41 PM CDT LACTIC ACID Routine 04/08/2018 12:41 PM CDT CULTURE, BACTERIA, BLOOD Routine 04/08/2018 12:41 PM CDT CULTURE, BACTERIA, BLOOD Routine 04/08/2018 12:41 PM CDT CBC W/DIFF AUTOMATED Routine 04/08/2018 12:41 PM CDT POCT GLUCOSE - ALARCON DOCKED DEVICE Routine 04/08/2018 12:26 PM CDT COMPREHENSIVE METABOLIC PANEL Routine 04/08/2018 12:13 PM CDT LIPID PANEL Routine 04/08/2018 12:13 PM CDT TROPONIN, QUANT Routine 04/08/2018 12:13 PM CDT THYROID STIM HORMONE TSH Routine 04/08/2018 12:13 PM CDT PHOSPHORUS, INORGANIC PHOSPHATE Routine 04/08/2018 12:13 PM CDT MAGNESIUM Routine 04/08/2018 12:13 PM CDT LIPASE Routine 04/08/2018 12:13 PM CDT CK (CPK) Routine 04/08/2018 12:13 PM CDT CYTOPATH CERV/VAG THIN LAYER Routine 04/08/2018 6:52 AM CDT documented in this encounter Results * (ABNORMAL) POCT glucose (04/11/2018 12:43 PM CDT) GLUCOSE POC 209(H) 70 - 109 04/11/2018 6:12 PM CDT [facility] INTERFACE 04/11/2018 12:4 3 PM CDT us Sanjana Samson MD POCT ORDERABLES - DEVICE Fi nal Result [facility] INTERFACE US * (ABNORMAL) POCT glucose (04/11/2018 10:28 AM CDT) GLUCOSE POC 229(H) 70 - 109 04/11/2018 10:30 AM CDT [facility] INTERFACE 04/11/2018 10:2 8 AM CDT us Sanjana Samson MD POCT ORDERABLES - DEVICE Fi nal Result [facility] INTERFACE US * POCT glucose (04/11/2018 9:10 AM CDT) GLUCOSE POC 74 70 - 109 04/11/2018 9:15 AM CDT [facility] INTERFACE 04/11/2018 9:10 AM CDT us Sanjana Samson MD POCT ORDERABLES - DEVICE Fi nal Result Performing Organization Address [facility] de Phone Number [facility] INTERFACE US * (ABNORMAL) POCT glucose (04/11/2018 8:42 AM CDT) GLUCOSE POC 43(L) 70 - 109 04/11/2018 9:14 AM CDT [facility] INTERFACE 04/11/2018 8:42 AM CDT us Sanjana Samson MD POCT ORDERABLES - DEVICE Fi nal Result Performing Organization Address [facility] de Phone Number [facility] INTERFACE US * (ABNORMAL) BASIC METABOLIC PANEL (04/11/2018 7:48 AM CDT) SODIUM S/P/B 139 136 - 145 MMOL/L 04/11/2018 8:27 AM CDT [facility] POTASSIUM S/P/B 3.5 3.5 - 5.1 MMOL/L 04/11/2018 8:27 AM CDT [facility] CHLORIDE S/P/B 104 98 - 107 MMOL/L 04/11/2018 8:27 AM CDT [facility] CO2 29.3 21.0 - 32.0 MMOL/L 04/11/2018 8:27 AM CDT [facility] GLUCOSE 55(L) 74 - 106 MG/DL 04/11/2018 8:27 AM CDT [facility] BUN 5(L) 7 - 18 MG/DL 04/11/2018 8:27 AM CDT [facility] CREATININE S/P/B 0.55 0.55 - 1.02 MG/DL 04/11/2018 8:27 AM T [facility] CALCIUM S/P/B 8.4 8.4 - 10.5 MG/DL 04/11/2018 8:27 AM [facility] ANION GAP 5.7 MMOL/L 04/11/2018 8:27 AM [facility] Comment:REFERENCE RANGE NOT ESTABLISHED OSMOLALITY (CALC) 283 MOSM/KG 018 8:27 AM [facility] Comment:REFERENCE RANGE NOT ESTABLISHED EGFR NON-AFR. AMER. >90 >90 ML/MIN/1.7 3 M2 04/11/2018 8:27 AM [facility] Comment: THE ESTIMATED GFR IS CALCULATED [...] ml/min/1.73 m2 G5,KIDNEY FAILURE: <15 ml/min/1.73 m2 EGFR AFR. AMER. >90 >90 ML/MIN/1.7 3 M2 04/11/2018 8:27 AM [facility] Comment: THE ESTIMATED GFR IS CALCULATED [...] ml/min/1.73 m2 G5,KIDNEY FAILURE: <15 ml/min/1.73 m2 04/11/2018 7:48 AM CDT Anson Dominique DO LABORATORY Final Result [facility] [address] [place] [address], [place] [phone] * (ABNORMAL) CBC, AUTO, NO DIFF (04/11/2018 7:48 AM CDT) WBC 2.6(L) 4.0 - 10.8 x10'3/uL 04/11/2018 8:04 AM CDT [facility] RBC 3.95(L) 4.10 - 5.40 x10'6/uL 04/11/2018 8:04 AM CDT [facility] HGB 12.1 12.0 - 16.0 G/DL 04/11/2018 8:04 AM CDT [facility] HCT 34.5(L) 36.0 - 47.0 % 04/11/2018 8:04 AM CDT [facility] MCV 87.3 78.0 - 100.0 FL 04/11/2018 8:04 AM CDT [facility] MCH 30.6 27.0 - 31.0 PG 04/11/2018 8:04 AM CDT [facility] MCHC 35.1 33.0 - 36.0 G/DL 04/11/2018 8:04 AM CDT [facility] RDW 11.7 11.5 - 14.5 % 04/11/2018 8:04 AM CDT [facility] PLT 167 150 - 350 x10'3/uL 04/11/2018 8:04 AM CDT [facility] MPV 9.6 7.4 - 10.4 FL 04/11/2018 8:04 AM CDT [facility] 04/11/2018 7:48 AM CDT Lissy Godfrey [employer]EF[employer] SPECIALIST LABORATORY Final R esult [facility] [address] [place] [address], [id number] * POCT glucose (04/11/2018 5:33 AM CDT) GLUCOSE POC 95 70 - 109 04/11/2018 5:34 AM CDT [facility] ORDERS INTERFACE 04/11/2018 5:33 AM CDT Sanjana Samson MD POCT ORDERABLES - DEVICE Fi nal Result Performing Organization Address [facility] Co de Phone Number [facility] ORDERS INTERFACE US * (ABNORMAL) POCT glucose (04/11/2018 3:38 AM CDT) GLUCOSE POC 130(H) 70 - 109 04/11/2018 3:41 AM CDT [facility] ORDERS INTERFACE 04/11/2018 3:38 AM CDT Sanjana Samson MD POCT ORDERABLES - DEVICE Fi nal Result Performing Organization Address [facility] Co de Phone Number [facility] ORDERS INTERFACE US * (ABNORMAL) POCT glucose (04/10/2018 11:33 PM CDT) GLUCOSE POC 168(H) 70 - 109 04/10/2018 11:37 PM CDT [facility] ORDERS INTERFACE 04/10/2018 11:3 3 PM CDT us Sanjana Samson MD POCT ORDERABLES - DEVICE Fi nal Result Performing Organization Address [facility] Co de Phone Number [facility] ORDERS INTERFACE US * (ABNORMAL) POCT glucose (04/10/2018 9:31 PM CDT) GLUCOSE POC 188(H) 70 - 109 04/10/2018 9:45 PM CDT [facility] ORDERS INTERFACE 04/10/2018 9:31 PM CDT us Sanjana Samson MD POCT ORDERABLES - DEVICE Fi nal Result Performing Organization Address [facility] Co de Phone Number [facility] ORDERS INTERFACE US * (ABNORMAL) POCT glucose (04/10/2018 8:17 PM CDT) GLUCOSE POC 237(H) 70 - 109 04/10/2018 8:20 PM CDT [facility] ORDERS INTERFACE 04/10/2018 8:17 PM CDT us Sanjana Samson MD POCT ORDERABLES - DEVICE Fi nal Result Performing Organization Address [facility] de Phone Number [facility] LAB ORDERS INTERFACE US * CT ABD+PEL W CON (04/10/2018 5:47 PM CDT) Anatomical Region Laterality Modality Abdomen Computed Tomogra phy 04/10/2018 6:47 PM CDT Narrative 04/10/2018 7:04 PM CDT PATIENT NAME: STEPH ROBERTO EXAM: CT abdomen/pelvis with contrast DATE OF EXAM: 04/10/2018 COMPARISON EXAM: None INDICATION: Pelvic pain, vaginal discharge, evaluation for PID. ??Negative test. TECHNIQUE: Axial images obtained from the xiphoid process to pubic symphysis with intravenous injection of 100 cc Isovue 370 contrast using low-dose CT technique. ??Sagittal and coronal reconstruction. FINDINGS: CT ABDOMEN: Shortness portions of the lung bases are unremarkable. The liver is normal in size. ??No focal intrahepatic lesions are demonstrated. ??The gallbladder is been removed. ??No biliary duct dilatation. The spleen, pancreas, and the adrenal glands are unremarkable. Kidneys demonstrate no evidence of abnormal striated nephrogram or perirenal inflammatory stranding or fluid. ??There is no evidence of ureteral stone nor hydronephrosis on either side. ??No evidence of renal mass lesion. There is no acute inflammatory change, abscess or ascites. ??Bowel gas pattern suggests mild diffuse ileus. ??No evidence of mechanical bowel obstruction or perforation. ??No evidence of adenopathy. ??Abdominal aorta and IVC are unremarkable. CT PELVIS: The uterus is retroverted but otherwise unremarkable. ??There is a focal dense rim cystic structure in the right adnexa suggesting a recently ruptured right ovarian follicle. ??No left adnexal mass or fluid collection. ??Small amount of slightly high attenuation pelvic ascites suggesting small amount of hemorrhagic ascites related to recent follicular rupture. ??No evidence of inflammatory change or abscess. IMPRESSION: 1. ??NO ACUTE INFLAMMATORY CHANGE, NOR ABSCESS. 2. DENSE RIM CYSTIC STRUCTURE WITHIN THE RIGHT OVARY ASSOCIATED WITH SMALL AMOUNT OF HEMORRHAGIC ASCITES IN THE PELVIS SUGGESTING RECENT RUPTURED OVARIAN FOLLICLE. 3. ??BOWEL GAS PATTERN SUGGESTING ILEUS. ??NO MECHANICAL BOWEL OBSTRUCTION OR PERFORATION. Signed: Zain Calles MD Interpreted By: Zain Calles MD, 04/10/2018 6:47 PM Order Doctor: AISSATOU HUGHES Procedure Note Zain Calles MD - 04/10/2018 PATIENT NAME: STEPH ROBERTO EXAM: CT abdomen/pelvis with contrast DATE OF EXAM: 04/10/2018 COMPARISON EXAM: None INDICATION: Pelvic pain, vaginal discharge, evaluation for PID. Negativepregnancy test. TECHNIQUE: Axial images obtained from the xiphoid process to pubicsymphysis with intravenous injection of 100 cc Isovue 370 contrast usinglow-dose CT technique. Sagittal and coronal reconstruction. FINDINGS: CT ABDOMEN: Shortness portions of the lung bases are unremarkable. The liver is normal in size. No focal intrahepatic lesions aredemonstrated. The gallbladder is been removed. No biliary ductdilatation. The spleen, pancreas, and the adrenal glands are unremarkable. Kidneys demonstrate no evidence of abnormal striated nephrogram orperirenal inflammatory stranding or fluid. There is no evidence ofureteral stone nor hydronephrosis on either side. No evidence of renalmass lesion. There is no acute inflammatory change, abscess or ascites. Bowel gaspattern suggests mild diffuse ileus. No evidence of mechanical bowelobstruction or perforation. No evidence of adenopathy. Abdominal aortaand IVC are unremarkable. CT PELVIS: The uterus is retroverted but otherwise unremarkable. There sade focal dense rim cystic structure in the right adnexa suggesting arecently ruptured right ovarian follicle. No left adnexal mass or fluidcollection. Small amount of slightly high attenuation pelvic ascitessuggesting small amount of hemorrhagic ascites related to recentfollicular rupture. No evidence of inflammatory change or abscess. IMPRESSION: 1. NO ACUTE INFLAMMATORY CHANGE, NOR ABSCESS. 2. DENSE RIM CYSTIC STRUCTURE WITHIN THE RIGHT OVARY ASSOCIATED WITH SMALLAMOUNT OF HEMORRHAGIC ASCITES IN THE PELVIS SUGGESTING RECENT RUPTUREDOVARIAN FOLLICLE. 3. BOWEL GAS PATTERN SUGGESTING ILEUS. NO MECHANICAL BOWEL OBSTRUCTIONOR PERFORATION. Signed: Zain Calles MD Interpreted By: Zain Calles MD, 04/10/2018 6:47 PM Order Doctor: AISSATOU HUGHES Aissatou Hughes MD CT Final Result * (ABNORMAL) POCT glucose (04/10/2018 4:21 PM CDT) GLUCOSE POC 168(H) 70 - 109 04/10/2018 5:12 PM CDT [facility] ORDERS INTERFACE 04/10/2018 4:21 PM CDT Sanjana Samson MD POCT ORDERABLES - DEVICE Fi nal Result Performing Organization Address [facility]/ZIP Co de Phone Number [facility] ORDERS INTERFACE US * POCT glucose (04/10/2018 2:49 PM CDT) GLUCOSE POC 87 70 - 109 04/10/2018 2:52 PM CDT [facility] ORDERS INTERFACE Comment:RN Notified 04/10/2018 2:49 PM CDT Sanjana Samson MD POCT ORDERABLES - DEVICE Fi nal Result Performing Organization Address [facility]/State/ZIP Co de Phone Number [facility] ORDERS INTERFACE US * (ABNORMAL) POCT glucose (04/10/2018 2:31 PM CDT) GLUCOSE POC 54(L) 70 - 109 04/10/2018 2:33 PM CDT [facility] ORDERS INTERFACE Comment:RN Notified 04/10/2018 2:31 PM CDT us Sanjana Samson MD POCT ORDERABLES - DEVICE Fi nal Result [facility] ORDERS INTERFACE US * ECG 12 lead (04/10/2018 12:24 PM CDT) 04/10/2018 12:2 4 PM CDT Narrative [facility] - 04/10/2018 1:45 PM CDT ? [facility] ? [address] [place], [place] ??[address] ? Test Date: ?2018-04-10 Pat Name: ? STEPHTabitha ROBERTO ? Department: ?? 1 ? Room: ? 712AA Gender: ? Female ? 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 [place] : ?1990 ? Requested By: SANJANA SAMSON Order Number: [id number] ? Reading : ?? Galen Hernandez ? Measurements Intervals ?[place] ? Rate: ? 82 ? P: ?34 MA: ? 132 ?QRS: ?63 QRSD: ? 78 ? T: ?43 QT: ? 356 ? QTc: ?418 ? 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: [place] : 1990 Requested By: SANJANA SAMSON Order Number: [id number] Rony MD: Galen Hernandez Measurements Intervals [place] Rate: 82 P: 34 MA: 132 QRS: 63 QRSD: 78 T: 43 QT: 356 QTc: 418 Interpretive Statements SINUS RHYTHM POSSIBLE RIGHT VENTRICULAR CONDUCTION DELAY NONSPECIFIC T-WAVE ABNORMALITY us Sanjana Samson MD ECG ORDERABLES Final Resul t [facility] * (ABNORMAL) URINALYSIS (04/10/2018 11:40 AM CDT) COLOR (U) YELLOW 04/10/2018 1:32 PM CDT [facility] TRANSPARENCY HAZY 04/10/2018 1:32 PM CDT [facility] SPECIFIC GRAVITY (U) 1.013 1.002 - 1.035 04/10/2018 1:32 PM CDT [facility] U PH 6.0 5 - 8 04/10/2018 1:32 PM CDT [facility] PROTEIN (U) NEGATIVE NEGATIVE 04/10/2018 1:32 PM CDT [facility] URINE GLUCOSE NEGATIVE NEGATIVE MG/DL 04/10/2018 1:32 PM CDT [facility] KETONES MG/DL (U) 20(A) NEGATIVE 04/10/2018 1:32 PM CDT [facility] BILIRUBIN (U) NEGATIVE NEGATIVE 04/10/2018 1:32 PM CDT [facility] BLOOD (U) NEGATIVE NEGATIVE 04/10/2018 1:32 PM CDT [facility] NITRITES NEGATIVE NEGATIVE 04/10/2018 1:32 PM CDT [facility] UROBILINOGEN NORMAL 0 - 1 EU/DL 04/10/2018 1:32 PM CDT [facility] LEUKOCYTES (U) NEGATIVE NEGATIVE 04/10/2018 1:32 PM CDT [facility] RBC/HPF <1 0 - 3 /HPF 04/10/2018 1:32 PM CDT [facility] WBC/HPF 1 0 - 6 /HPF 04/10/2018 1:32 PM CDT [facility] BACTERIA (U) NONE /HPF 04/10/2018 1:32 PM CDT [facility] SQUAMOUS EPITHELIALS 12 04/10/2018 1:32 PM CDT [facility] URINE SPECIMEN OBTAINED BY CLEAN CATCH PROCEDURE / Unknown 04/10/2018 11:40 AM CDT Sanjana Samson MD URINE ORDERABLES Final Resu lt Performing Organization Address City/[facility]/ZIP Co de Phone Number [facility] [address] [place] [address], [phone] * (ABNORMAL) POCT glucose (04/10/2018 10:27 AM CDT) GLUCOSE POC 162(H) 70 - 109 04/10/2018 10:34 AM CDT [facility] ORDERS INTERFACE 04/10/2018 10:2 7 AM CDT Albin Sims MD POCT ORDERABLES - DEVICE Final Result Performing Organization Address [facility] Co de Phone Number [facility] ORDERS INTERFACE US * (ABNORMAL) CBC, AUTO, NO DIFF (04/10/2018 3:30 AM CDT) WBC 3.8(L) 4.0 - 10.8 x10'3/uL 04/10/2018 3:54 AM CDT [facility] RBC 3.67(L) 4.10 - 5.40 x10'6/uL 04/10/2018 3:54 AM CDT [facility] HGB 11.3(L) 12.0 - 16.0 G/DL 04/10/2018 3:54 AM CDT [facility] HCT 32.8(L) 36.0 - 47.0 % 04/10/2018 3:54 AM CDT [facility] MCV 89.4 78.0 - 100.0 FL 04/10/2018 3:54 AM CDT [facility] MCH 30.8 27.0 - 31.0 PG 04/10/2018 3:54 AM CDT [facility] MCHC 34.5 33.0 - 36.0 G/DL 04/10/2018 3:54 AM CDT [facility] RDW 11.9 11.5 - 14.5 % 04/10/2018 3:54 AM CDT [facility] PLT 182 150 - 350 x10'3/uL 04/10/2018 3:54 AM CDT [facility] MPV 9.8 7.4 - 10.4 FL 04/10/2018 3:54 AM CDT [facility] 04/10/2018 3:30 AM CDT Lissy Godfrey APRN LABORATORY Final R esult Performing Organization Address [facility] Co de Phone Number [facility] [address] [place] [address], [phone] * (ABNORMAL) THYROID STIM HORMONE, TSH (04/10/2018 3:29 AM CDT) TSH 6.290(H) 0.358 - 3.740 uIU/ML 04/10/2018 5:59 PM CDT [facility] 04/10/2018 3:29 AM CDT Aissatou Hughes MD LABORATORY Final Result Performing Organization Address [facility] Co de Phone Number [facility] [address] [place] [address], [id number] * (ABNORMAL) MAGNESIUM (04/10/2018 3:29 AM CDT) MAGNESIUM 1.5(L) 1.6 - 2.6 MG/DL 04/10/2018 4:03 AM CDT [facility] 04/10/2018 3:29 AM CDT Albin Sims MD LABORATORY Final Result Performing Organization Address [facility] de Phone Number [facility] [address] [place] [address], [phone] * ELECTROLYTE PANEL (04/10/2018 3:29 AM CDT) SODIUM S/P/B 136 136 - 145 MMOL/L 04/10/2018 5:35 PM CDT [facility] Comment: ELECTROLYTE PANEL AND MG CREDITED. DUPLICATE ORDER POTASSIUM S/P/B 4.2 3.5 - 5.1 MMOL/L 04/10/2018 4:03 AM CDT [facility] CHLORIDE S/P/B 105 98 - 107 MMOL/L 04/10/2018 4:03 AM CDT [facility] CO2 24.5 21.0 - 32.0 MMOL/L 04/10/2018 4:03 AM CDT [facility] ANION GAP 6.5 MMOL/L 04/10/2018 5:35 PM CDT [facility] Comment:REFERENCE RANGE NOT ESTABLISHED 04/10/2018 3:29 AM CDT Albin Sims MD LABORATORY Final Result Performing Organization Address [facility] de Phone Number [facility] [address] [place] [address], [phone] * (ABNORMAL) BASIC METABOLIC PANEL (04/10/2018 3:29 AM CDT) SODIUM S/P/B 136 136 - 145 MMOL/L 04/10/2018 4:07 AM CDT [facility] POTASSIUM S/P/B 4.2 3.5 - 5.1 MMOL/L 04/10/2018 4:07 AM CDT [facility] CHLORIDE S/P/B 105 98 - 107 MMOL/L 04/10/2018 4:07 AM CDT [facility] CO2 24.3 21.0 - 32.0 MMOL/L 04/10/2018 4:07 AM [facility] GLUCOSE 245(H) 74 - 106 MG/DL 04/10/2018 4:07 AM [facility] BUN 5(L) 7 - 18 MG/DL 04/10/2018 4:07 AM [facility] CREATININE S/P/B 0.63 0.55 - 1.02 MG/DL 04/10/2018 4:07 AM [facility] CALCIUM S/P/B 8.1(L) 8.4 - 10.5 MG/DL 04/10/2018 4:07 AM [facility] ANION GAP 6.7 MMOL/L 04/10/2018 4:07 AM [facility] Comment:REFERENCE RANGE NOT ESTABLISHED OSMOLALITY (CALC) 287 MOSM/KG 018 4:07 AM [facility] Comment:REFERENCE RANGE NOT ESTABLISHED EGFR NON-AFR. AMER. >90 >90 ML/MIN/1.7 3 M2 04/10/2018 4:07 AM [facility] Comment: THE ESTIMATED GFR IS CALCULATED [...] ml/min/1.73 m2 G5,KIDNEY FAILURE: <15 ml/min/1.73 m2 EGFR AFR. AMER. >90 >90 ML/MIN/1.7 3 M2 04/10/2018 4:07 AM [facility] Comment: THE ESTIMATED GFR IS CALCULATED [...] ml/min/1.73 m2 G5,KIDNEY FAILURE: <15 ml/min/1.73 m2 04/10/2018 3:29 AM CDT [facility] LABORATORY Final Result Performing Organization Address [facility] de Phone Number [facility] [address] [place] [address], [phone] * PHOSPHORUS, INORGANIC PHOSPHATE (04/10/2018 3:29 AM CDT) PHOSPHORUS 2.9 2.5 - 4.9 MG/DL 04/10/2018 4:07 AM CDT [facility] 04/10/2018 3:29 AM CDT [facility] LABORATORY Final Result Performing Organization Address [facility] de Phone Number [facility] [address] [place] [address], [place] [phone] * MAGNESIUM (04/10/2018 3:29 AM CDT) MAGNESIUM 1.6 1.6 - 2.6 MG/DL 04/10/2018 4:07 AM CDT [facility] 04/10/2018 3:29 AM CDT [facility] LABORATORY Final Result Performing Organization Address [facility] Co de Phone Number [facility] [address] [place] [address], [place] [phone] * (ABNORMAL) POCT glucose (04/10/2018 2:38 AM CDT) GLUCOSE POC 254(H) 70 - 109 04/10/2018 2:43 AM CDT [facility] ORDERS INTERFACE 04/10/2018 2:38 AM CDT us Albin Sims MD POCT ORDERABLES - DEVICE Final Result Performing Organization Address [facility] Co de Phone Number [facility] ORDERS INTERFACE US * (ABNORMAL) POCT glucose (04/09/2018 8:35 PM CDT) GLUCOSE POC 121(H) 70 - 109 04/09/2018 9:13 PM CDT [facility] ORDERS INTERFACE 04/09/2018 8:35 PM CDT us Albin Sims MD POCT ORDERABLES - DEVICE Final Result Performing Organization Address [facility] de Phone Number [facility] ORDERS INTERFACE US * (ABNORMAL) POCT glucose (04/09/2018 4:11 PM CDT) GLUCOSE POC 372(H) 70 - 109 04/09/2018 4:13 PM CDT [facility] ORDERS INTERFACE Comment:RN Notified 04/09/2018 4:11 PM CDT us Albin Sims MD POCT ORDERABLES - DEVICE Final Result Performing Organization Address [facility] Co de Phone Number [facility] ORDERS INTERFACE US * POCT glucose (04/09/2018 9:53 AM CDT) GLUCOSE POC 77 70 - 109 04/09/2018 9:55 AM CDT [facility] ORDERS INTERFACE Comment:RN Notified 04/09/2018 9:53 AM CDT us Anson Dominique DO POCT ORDERABLES - DEVICE Final Result Performing Organization Address [facility] Co de Phone Number [facility] ORDERS INTERFACE US * (ABNORMAL) POCT glucose (04/09/2018 6:53 AM CDT) GLUCOSE POC 130(H) 70 - 109 04/09/2018 6:55 AM CDT [facility] ORDERS INTERFACE 04/09/2018 6:53 AM CDT us Anson Dominique DO POCT ORDERABLES - DEVICE Final Result Performing Organization Address City/[facility]/ZIP Co de Phone Number [facility] ORDERS INTERFACE US * (ABNORMAL) POCT glucose (04/09/2018 6:00 AM CDT) GLUCOSE POC 154(H) 70 - 109 04/09/2018 6:03 AM CDT [facility] ORDERS INTERFACE 04/09/2018 6:00 AM CDT us Anson Dominique DO POCT ORDERABLES - DEVICE Final Result Performing Organization Address [facility] Co de Phone Number [facility] ORDERS INTERFACE US * (ABNORMAL) POCT glucose (04/09/2018 4:10 AM CDT) GLUCOSE POC 195(H) 70 - 109 04/09/2018 4:14 AM CDT [facility] ORDERS INTERFACE 04/09/2018 4:10 AM CDT us Anson Dominique DO POCT ORDERABLES - DEVICE Final Result Performing Organization Address [facility] Co de Phone Number [facility] ORDERS INTERFACE US * PHOSPHORUS, INORGANIC PHOSPHATE (04/09/2018 4:05 AM CDT) PHOSPHORUS 2.7 2.5 - 4.9 MG/DL 04/09/2018 4:49 AM CDT [facility] 04/09/2018 4:05 AM CDT us Anson Dominique DO LABORATORY Final Result Performing Organization Address City/[facility]/ZIP Co de Phone Number [facility] [address] [place] [address], [place] [phone] * (ABNORMAL) MAGNESIUM (04/09/2018 4:05 AM CDT) Pathologist [facility] MAGNESIUM 1.5(L) 1.6 - 2.6 MG/DL 04/09/2018 4:49 AM CDT [facility] 04/09/2018 4:05 AM CDT [facility] LABORATORY Final Result [facility] [address] [place] [address], [phone] * (ABNORMAL) CBC, AUTO, NO DIFF (04/09/2018 4:05 AM CDT) Pathologist [facility] WBC 5.9 4.0 - 10.8 x10'3/uL 04/09/2018 4:25 AM CDT [facility] RBC 3.31(L) 4.10 - 5.40 x10'6/uL 04/09/2018 4:25 AM CDT [facility] HGB 10.2(L) 12.0 - 16.0 G/DL 04/09/2018 4:25 AM CDT [facility] HCT 29.1(L) 36.0 - 47.0 % 04/09/2018 4:25 AM CDT [facility] MCV 87.9 78.0 - 100.0 FL 04/09/2018 4:25 AM CDT [facility] MCH 30.8 27.0 - 31.0 PG 04/09/2018 4:25 AM CDT [facility] MCHC 35.1 33.0 - 36.0 G/DL 04/09/2018 4:25 AM CDT [facility] RDW 11.9 11.5 - 14.5 % 04/09/2018 4:25 AM CDT [facility] PLT 210 150 - 350 x10'3/uL 04/09/2018 4:25 AM CDT [facility] MPV 9.7 7.4 - 10.4 FL 04/09/2018 4:25 AM CDT [facility] 04/09/2018 4:05 AM CDT Lissy Godfrey [employer]EF[employer] SPECIALIST LABORATORY Final R esult [facility] [address] [place] [address], [phone] * (ABNORMAL) BASIC METABOLIC PANEL (04/09/2018 4:05 AM CDT) SODIUM S/P/B 141 136 - 145 MMOL/L 04/09/2018 4:49 AM CDT [facility] POTASSIUM S/P/B 3.6 3.5 - 5.1 MMOL/L 04/09/2018 4:49 AM CDT [facility] CHLORIDE S/P/B 113(H) 98 - 107 MMOL/L 04/09/2018 4:49 AM CDT [facility] CO2 19.2(L) 21.0 - 32.0 MMOL/L 04/09/2018 4:49 AM CDT [facility] GLUCOSE 171(H) 74 - 106 MG/DL 04/09/2018 4:49 AM CDT [facility] BUN 5(L) 7 - 18 MG/DL 04/09/2018 4:49 AM CDT [facility] CREATININE S/P/B 0.62 0.55 - 1.02 MG/DL 04/09/2018 4:49 AM CDT [facility] CALCIUM S/P/B 7.4(L) 8.4 - 10.5 MG/DL 04/09/2018 4:49 AM CDT [facility] ANION GAP 8.8 MMOL/L 04/09/2018 4:49 AM CDT [facility] Comment:REFERENCE RANGE NOT ESTABLISHED OSMOLALITY (CALC) 293 MOSM/KG 018 4:49 AM CDT [facility] Comment:REFERENCE RANGE NOT ESTABLISHED EGFR NON-AFR. AMER. >90 >90 ML/MIN/1. 73 M2 04/09/2018 4:49 AM CDT [facility] Comment: THE ESTIMATED GFR [...] ml/min/1.73 m2 G5,KIDNEY FAILURE: <15 ml/min/1.73 m2 EGFR AFR. AMER. >90 >90 ML/MIN/1. 73 M2 04/09/2018 4:49 AM CDT [facility] Comment: THE ESTIMATED GFR [...] ml/min/1.73 m2 G5,KIDNEY FAILURE: <15 ml/min/1.73 m2 04/09/2018 4:05 AM CDT us Lissy Godfrey [employer] [facility] Final R esult [facility] [address] [place] [address], [id number] * BETA-HYDROXYBUTYRATE (04/09/2018 4:05 AM CDT) BETA-HYDROXYBUT YRATE 0.3 0.0 - 0.3 MMOL/L 04/09/2018 4:47 AM CDT [facility] 04/09/2018 4:05 AM CDT Anson Dominique DO LABORATORY Final Result Performing Organization Address City/[facility] Co de Phone Number [facility] [address] [place] [address], [id number] * (ABNORMAL) POCT glucose (04/09/2018 2:04 AM CDT) GLUCOSE POC 199(H) 70 - 109 04/09/2018 2:06 AM CDT [facility] ORDERS INTERFACE 04/09/2018 2:04 AM CDT [place] [facility] POCT ORDERABLES - DEVICE Final Result Performing Organization Address [facility] de Phone Number [facility] ORDERS INTERFACE US * PHOSPHORUS, INORGANIC PHOSPHATE (04/09/2018 12:17 AM CDT) PHOSPHORUS 3.8 2.5 - 4.9 MG/DL 04/09/2018 12:55 AM CDT [facility] 04/09/2018 12:1 7 AM CDT Lissy Godfrey [employer]EF[employer] SPECIALIST LABORATORY Final R esult Performing Organization Address [facility] Co de Phone Number [facility] [address] [place] [address], [phone] * MAGNESIUM (04/09/2018 12:17 AM CDT) MAGNESIUM 1.7 1.6 - 2.6 MG/DL 04/09/2018 12:53 AM CDT [facility] 04/09/2018 12:1 7 AM CDT us Lissy Godfrey [employer]IST LABORATORY Final R esult [facility] [address] [place] [address], [phone] * (ABNORMAL) BASIC METABOLIC PANEL (04/09/2018 12:17 AM CDT) SODIUM S/P/B 140 136 - 145 MMOL/L 04/09/2018 12:53 AM CDT [facility] POTASSIUM S/P/B 3.8 3.5 - 5.1 MMOL/L 04/09/2018 12:53 AM CDT [facility] CHLORIDE S/P/B 111(H) 98 - 107 MMOL/L 04/09/2018 12:53 AM CDT [facility] CO2 18.5(L) 21.0 - 32.0 MMOL/L 04/09/2018 12:53 AM CDT [facility] GLUCOSE 174(H) 74 - 106 MG/DL 04/09/2018 12:53 AM CDT [facility] BUN 6(L) 7 - 18 MG/DL 04/09/2018 12:53 AM CDT [facility] CREATININE S/P/B 0.61 0.55 - 1.02 MG/DL 04/09/2018 12:53 AM CDT [facility] CALCIUM S/P/B 7.7(L) 8.4 - 10.5 MG/DL 04/09/2018 12:53 AM CDT [facility] ANION GAP 10.5 MMOL/L 04/09/2018 12:53 AM CDT [facility] Comment:REFERENCE RANGE NOT ESTABLISHED OSMOLALITY (CALC) 292 MOSM/KG 018 12:53 AM CDT [facility] Comment:REFERENCE RANGE NOT ESTABLISHED EGFR NON-AFR. AMER. >90 >90 ML/MIN/1. 73 M2 04/09/2018 12:53 AM CDT [facility] Comment: THE ESTIMATED GFR [...] ml/min/1.73 m2 G5,KIDNEY FAILURE: <15 ml/min/1.73 m2 EGFR AFR. AMER. >90 >90 ML/MIN/1. 73 M2 04/09/2018 12:53 AM CDT [facility] Comment: THE ESTIMATED GFR [...] ml/min/1.73 m2 G5,KIDNEY FAILURE: <15 ml/min/1.73 m2 04/09/2018 12:1 7 AM CDT us Lissy Godfrey [employer]IST LABORATORY Final R esult [facility] [address] [place] [address], [phone] * (ABNORMAL) POCT glucose (04/09/2018 12:17 AM CDT) [facility] Signature GLUCOSE POC 184(H) 70 - 109 04/09/2018 12:21 AM CDT [facility] ORDERS INTERFACE 04/09/2018 12:1 7 AM CDT us Anson Dominique DO POCT ORDERABLES - DEVICE Final Result Performing Organization Address [facility] Co de Phone Number [facility] ORDERS INTERFACE US * (ABNORMAL) BETA-HYDROXYBUTYRATE (04/09/2018 12:17 AM CDT) BETA-HYDROXYBU TYRATE 0.4(H) 0.0 - 0.3 MMOL/L 04/09/2018 12:30 AM CDT [facility] 04/09/2018 12:1 7 AM CDT us Anson Dominique DO LABORATORY Final Result Performing Organization Address [facility] de Phone Number [facility] [address] [place] [address], [phone] * (ABNORMAL) POCT glucose (04/08/2018 11:11 PM CDT) GLUCOSE POC 178(H) 70 - 109 04/08/2018 11:13 PM CDT [facility] ORDERS INTERFACE 04/08/2018 11:1 1 PM CDT us Anson Dominique DO POCT ORDERABLES - DEVICE Final Result Performing Organization Address [facility] Co de Phone Number [facility] ORDERS INTERFACE US * (ABNORMAL) PHOSPHORUS, INORGANIC PHOSPHATE (04/08/2018 8:58 PM CDT) PHOSPHORUS 1.2(L) 2.5 - 4.9 MG/DL 04/08/2018 9:58 PM CDT [facility] 04/08/2018 8:58 PM CDT us Anson Dominique DO LABORATORY Final Result Performing Organization Address [facility] Co de Phone Number [facility] [address] [place] [address], [phone] * MAGNESIUM (04/08/2018 8:58 PM CDT) MAGNESIUM 2.0 1.6 - 2.6 MG/DL 04/08/2018 9:40 PM CDT [facility] 04/08/2018 8:58 PM CDT [facility] LABORATORY Final Result Performing Organization Address [facility] Co de Phone Number [facility] [address] [place] [address], [phone] * (ABNORMAL) BETA-HYDROXYBUTYRATE (04/08/2018 8:58 PM CDT) BETA-HYDROXYBU TYRATE 0.8(H) 0.0 - 0.3 MMOL/L 04/08/2018 9:16 PM CDT [facility] 04/08/2018 8:58 PM CDT [facility] LABORATORY Final Result Performing Organization Address City/State/[facility] Co de Phone Number [facility] [address] [place] [address], [id number] * (ABNORMAL) BASIC METABOLIC PANEL (04/08/2018 8:58 PM CDT) SODIUM S/P/B 138 136 - 145 MMOL/L 04/08/2018 9:40 PM CDT [facility] POTASSIUM S/P/B 3.8 3.5 - 5.1 MMOL/L 04/08/2018 9:40 PM CDT [facility] CHLORIDE S/P/B 110(H) 98 - 107 MMOL/L 04/08/2018 9:40 PM CDT [facility] CO2 18.5(L) 21.0 - 32.0 MMOL/L 04/08/2018 9:40 PM [facility] GLUCOSE 137(H) 74 - 106 MG/DL 04/08/2018 9:40 PM [facility] BUN 7 7 - 18 MG/DL 04/08/2018 9:42 PM [facility] CREATININE S/P/B 0.68 0.55 - 1.02 MG/DL 04/08/2018 9:40 PM [facility] CALCIUM S/P/B 7.6(L) 8.4 - 10.5 MG/DL 04/08/2018 9:40 PM [facility] ANION GAP 9.5 MMOL/L 04/08/2018 9:40 PM [facility] Comment:REFERENCE RANGE NOT ESTABLISHED OSMOLALITY (CALC) 286 MOSM/KG 018 9:42 PM [facility] Comment:REFERENCE RANGE NOT ESTABLISHED EGFR NON-AFR. AMER. >90 >90 ML/MIN/1. 73 M2 04/08/2018 9:40 PM [facility] Comment: THE ESTIMATED GFR IS CALCULATED [...] ml/min/1.73 m2 G5,KIDNEY FAILURE: <15 ml/min/1.73 m2 EGFR AFR. AMER. >90 >90 ML/MIN/1. 73 M2 04/08/2018 9:40 PM [facility] Comment: THE ESTIMATED GFR IS CALCULATED [...] ml/min/1.73 m2 G5,KIDNEY FAILURE: <15 ml/min/1.73 m2 04/08/2018 8:58 PM CDT Lissy Godfrey [employer] SPECIALIST LABORATORY Final R esult [facility] [address] [place] [id number], [phone] * (ABNORMAL) POCT glucose (04/08/2018 7:14 PM CDT) GLUCOSE POC 151(H) 70 - 109 04/08/2018 7:26 PM CDT [facility] ORDERS INTERFACE 04/08/2018 7:14 PM CDT Anson Dominique DO POCT ORDERABLES - DEVICE Final Result Performing Organization Address [facility] Co de Phone Number [facility] ORDERS INTERFACE US * (ABNORMAL) POCT glucose (04/08/2018 6:10 PM CDT) GLUCOSE POC 154(H) 70 - 109 04/08/2018 6:40 PM CDT [facility] ORDERS INTERFACE 04/08/2018 6:10 PM CDT Anson Dominique DO POCT ORDERABLES - DEVICE Final Result [facility] ORDERS INTERFACE US * (ABNORMAL) POCT glucose (04/08/2018 5:10 PM CDT) GLUCOSE POC 132(H) 70 - 109 04/08/2018 5:11 PM CDT [facility] ORDERS INTERFACE 04/08/2018 5:10 PM CDT us Anson Dominique POCT ORDERABLES - DEVICE Final Result Performing Organization Address [facility] Co de Phone Number [facility] ORDERS INTERFACE US * SYPHILIS/RPR/VDRL; QUAL (04/08/2018 4:30 PM CDT) RPR NON-REACTIV E NON-REACTI VE 04/09/2018 11:29 AM CDT [facility] 04/08/2018 4:30 PM CDT Lissy Godfrey APRN LABORATORY Final R esult Performing Organization Address [facility] de Phone Number [facility] [address] [place] [address], [phone] * HIV - RAPID (04/08/2018 4:30 PM CDT) HIV RAPID NON-REACTI VE NON-REACTI VE 04/08/2018 8:08 PM CDT [facility] Comment:HIV 1 p24 Ag and HIV 1/ HIV 2 Ab not detected. 04/08/2018 4:30 PM CDT Lissy Godfrey APRN LABORATORY Final R esult Performing Organization Address [facility] de Phone Number [facility] [address] [place] [address], [place] [phone] * (ABNORMAL) PHOSPHORUS, INORGANIC PHOSPHATE (04/08/2018 4:30 PM CDT) PHOSPHORUS 1.3(L) 2.5 - 4.9 MG/DL 04/08/2018 5:36 PM CDT [facility] 04/08/2018 4:30 PM CDT us Lissy Godfrey [employer] SPECIALIST LABORATORY Final R esult [facility] [address] [place] [address], [phone] * (ABNORMAL) BASIC METABOLIC PANEL (04/08/2018 4:30 PM CDT) SODIUM S/P/B 134(L) 136 - 145 MMOL/L 04/08/2018 5:36 PM CDT [facility] POTASSIUM S/P/B 4.0 3.5 - 5.1 MMOL/L 04/08/2018 5:36 PM CDT [facility] CHLORIDE S/P/B 112(H) 98 - 107 MMOL/L 04/08/2018 5:36 PM CDT [facility] CO2 11.7(L) 21.0 - 32.0 MMOL/L 04/08/2018 5:36 PM CDT [facility] GLUCOSE 114(H) 74 - 106 MG/DL 04/08/2018 5:36 PM CDT [facility] BUN 11 7 - 18 MG/DL 04/08/2018 5:36 PM CDT [facility] CREATININE S/P/B 0.75 0.55 - 1.02 MG/DL 04/08/2018 5:36 PM CDT [facility] CALCIUM S/P/B 6.8(L) 8.4 - 10.5 MG/DL 04/08/2018 5:36 PM CDT [facility] ANION GAP 10.3 MMOL/L 04/08/2018 5:36 PM CDT [facility] Comment:REFERENCE RANGE NOT ESTABLISHED OSMOLALITY (CALC) 278 MOSM/KG 018 5:36 PM CDT [facility] Comment:REFERENCE RANGE NOT ESTABLISHED EGFR NON-AFR. AMER. >90 >90 ML/MIN/1. 73 M2 04/08/2018 5:36 PM CDT [facility] Comment: THE ESTIMATED GFR [...] ml/min/1.73 m2 G5,KIDNEY FAILURE: <15 ml/min/1.73 m2 EGFR AFR. AMER. >90 >90 ML/MIN/1. 73 M2 04/08/2018 5:36 PM CDT [facility] Comment: THE ESTIMATED GFR [...] ml/min/1.73 m2 G5,KIDNEY FAILURE: <15 ml/min/1.73 m2 04/08/2018 4:30 PM CDT Lissy Godfrey APRN LABORATORY Final R esult [facility] [address] [place] [address], [id number] * (ABNORMAL) POCT glucose (04/08/2018 3:57 PM CDT) GLUCOSE POC 120(H) 70 - 109 04/08/2018 5:11 PM CDT [facility] ORDERS INTERFACE 04/08/2018 3:57 PM CDT Anson Dominique DO POCT ORDERABLES - DEVICE Final Result [facility] ORDERS INTERFACE US * VAGINITIS SCREEN (04/08/2018 3:28 PM CDT) SPEC DESCRIPTION CERVIX 04/08/2018 4:33 PM CDT [facility] SPECIAL REQUESTS NO SPECIAL REQUEST 04/08/2018 4:33 PM CDT [facility] RESULT TRICHOMONAS VAGINALIS NEGATIVE 04/08/2018 5:21 PM CDT [facility] RESULT GARDNERELLA VAGINALIS POSITIVE 04/08/2018 5:21 PM CDT [facility] RESULT JOHNY SPECIES NEGATIVE 04/08/2018 5:21 PM CDT [facility] SPECIMEN FROM UTERINE CERVIX / Unknown 04/08/2018 3:28 PM CDT 04/08/2018 4:33 PM CDT us Saba Judge MD MICROBIOLOGY - GENERAL ORDERABL ES Final Result Performing Organization Address [facility] Co de Phone Number [facility] [address] [place] [address], [phone] * US RETROPERITONEAL COMP (04/08/2018 3:21 PM CDT) Anatomical Region Laterality Modality Abdomen Ultrasound 04/08/2018 3:22 PM CDT Impressions 04/08/2018 3:23 PM CDT IMPRESSION: Unremarkable ultrasound of the kidneys Nonvisualization of the ureters Interpreted By: Harpreet Khan, 04/08/2018 3:22 PM Order Doctor: ANSON Vázquez 04/08/2018 3:23 PM CDT EXAM: ULTRASOUND BILATERAL ??KIDNEYS AND BLADDER CLINICAL STATEMENT: ? Evaluate for Pyelonephritis ?? COMPARISON: None available. TECHNIQUE: Focused sonographic images of the kidneys and bladder are obtained to assess grayscale appearance color flow. FINDINGS: The right kidney measures ??9.7 x 4.4 x 4.7 cm. The right renal parenchymal echogenicity is unremarkable . ??There is no evidence for masses, calculi, or hydronephrosis.. There is appropriate color flow to the right kidney. The left kidney measures ??11.7 x 5.2 x 4.6 cm. The left renal parenchymal echogenicity is unremarkable . ??There is no evidence for masses, calculi, or hydronephrosis. . There is appropriate color flow to the left kidney. The bladder is physiologically distended. There is normal wall thickness. The Left and right ureteral jets is identified. Procedure Note Harpreet Khan MD - 04/08/2018 EXAM: ULTRASOUND BILATERAL KIDNEYS AND BLADDER CLINICAL STATEMENT: Evaluate for Pyelonephritis COMPARISON: None available. TECHNIQUE: Focused sonographic images of the kidneys and bladder are obtained to assess grayscale appearance color flow. FINDINGS: The right kidney measures 9.7 x 4.4 x 4.7 cm. The right renalparenchymal echogenicity is unremarkable . There is no evidence for masses,calculi, or hydronephrosis.. There is appropriate color flow to the right kidney. The left kidney measures 11.7 x 5.2 x 4.6 cm. The left renalparenchymal echogenicity is unremarkable . There is no evidence for masses,calculi, or hydronephrosis. . There is appropriate color flow to the left kidney. The bladder is physiologically distended. There is normal wallthickness. The Left and right ureteral jets is identified. IMPRESSION: Unremarkable ultrasound of the kidneys Nonvisualization of the ureters Interpreted By: Harpreet Khan, 04/08/2018 3:22 PM Order Doctor: ANSON DOMINIQUE us Anson Dominique DO ULTRASOUND Final Result * USE ECHOCARDIOGRAM (04/08/2018 3:08 PM CDT) Anatomical Region Laterality Modality Cardiac Echocardiogram 04/08/2018 2:27 PM CDT Narrative 04/09/2018 6:59 AM CDT ?Echocardiography Report Pat.Name: ??STEPH ROBERTO ? Pat.ID: ?[id number] ? St.Date: ?? 04/08/2018 ? Refer.MD: ??LISSY GODFREY ? Exam Time: 2:27:00 PM ? Study Type:ECHO WITH CARDIAC DOPPLER COMP Height: ?165cm ? Weight: ?50kg ? BSA: ? 1.53 m2 ?Age: ??1990,27Y ? Sex: ? FEMALE ?BP: ?108/57 ? HR: ?97 bpm ?Sonogrphr: Noel Alfonso RDCS ? Pat. Stat.:Inpatient ? Room: ?[facility] ? CPT: ?? 24709 ? Reason for Study:LV function assessment Procedures:2D, M-mode, Doppler, Color Flow, Portable Race: ?W ? ++++++++++++++++++++++++++++++++++++ SUMMARY: ++++++++++++++++++++++++++++++++++++ The calculated ejection fraction is 67%. Left ventricular diastolic function is normal. The right ventricular size is normal. Right ventricular systolic function is normal. Right ventricular systolic pressure is 25 mmHg. No significant valve stenosis or regurgitation. ++++++++++++++++++++++++++++++++++++ FINDINGS: ++++++++++++++++++++++++++++++++++++ LV: ? The left ventricular size is normal. The left ventricular ?systolic ??function is normal. The calculated ejection ?fraction ??is 67%. The septal E/e' is indeterminate at 8-15. ?The ??lateral E/e' is normal at <8. The average E/e' is ?normal ??at <8. Left ventricular diastolic function is ?normal. ??Left ventricular filling pressure is normal. ?Overall ??wall motion is normal. All uribe are normal WM: ? Wall motion appears normal in all segments. LVOT: ? The left ventricular outflow tract size is normal. The LVOT ?stroke ??volume index is 41.8 ml/m2. RV: ? The right ventricular size is normal. Right ventricular ?systolic ??function is normal. Right ventricular systolic ?pressure ??is 25 mmHg. TAPSE = 21.1mm (<16 mm indicates ?systolic ??RV dysfunction). LA: ? The left atrial volume is normal ( less than 34 ml/M2). RA: ? Right atrial size is normal. YORDY: ? No evidence of pericardial effusion. AO: ? Aortic root is not dilated. PA: ? Estimated right atrial pressure of 3 mmHg. PVn: ?The pulmonary vein doppler wave form is normal suggestive of ?normal ??left atrial pressures. SVn: ?Inferior vena cava shows >50% collapse with respiration ?consistent ??with normal right atrial pressure. AV: ? The aortic valve is trileaflet. No evidence of aortic valve ?stenosis. ??No evidence of aortic valve regurgitation. MV: ? Trace mitral regurgitation. No evidence of mitral stenosis. PV: ? The pulmonic valve is normal There is trace pulmonic ?regurgitation TV: ? The tricuspid valve appears structurally normal. There is ?trace ??tricuspid regurgitation. ++++++++++++++++++++++++++++++++++++ MEASUREMENTS: ++++++++++++++++++++++++++++++++++++ ?DOPPLER LVOT ?? LVOTpkPG ? 5 mmHg ?LVOTmnPG ? 2 mmHg LVOTpkVel ?113 cm/s (70-110)* LVOT SV ? 64 ml ?? Index ?41.8 ml/m2 LVOT TVI ?20.5 cm ?LVOT CO ?106.6688 l/min AV Forward Flow AV TVI ?25.2 cm ?AV pkPG ?7 mmHg AV pkVel ? 135 cm/s (100-170) Area (TVI) ?2.55 cm2 ??(3-5)* Index ?1.67 cm2/m2 AV mnVel ?92.8 cm/s ?Area (Jesus) ?2.63 cm2 ??(3-5)* AV mnPG ?4 mmHg ? MV Forward Flow MV DeTm ?151 msec ?MV E/A ? 1 ? MV mnPG ?3 mmHg ?MV pkE ?90.7 cm/s (60-130) MV pkPG ?6 mmHg ?MV pkA ?94.1 cm/s TV Regurg Flow TV pkPG ? 22 mmHg ?TV pkVel ? 235 cm/s (30- 70)* Lat E' ?? Lat e ? 14.1 cm/s ? Lat E/E' ?? Lat E/e ?6.4 ? Med E' ?? Med e ? 9.57 cm/s ? Med E/E' ?? Med E/e ?9.5 ? Aortic Valve ?? Aortic Valve Ar ??1.67 ?Aortic Valve Ve ??0.84 ? AV DI ?? Value ?0.8 ? DORIS (VTI) Index ?? Value ? 1.67 ? LV Mass 2D ?? Value ? 79.7 g ? LV Mass [id number] ?? Value ? 52.1 g/m2 ? RA Volume ?? Atrial Vaz ?? 3.99 cm ? Atrial Vaz ?? 8.17 cm2 Atrial Vaz ?? 14.2 ml ? Right Ventricle ?? Right Ventricle ??13.5 cm/s ?2D Left Ventricle ?? LVIDd ? 4.08 cm ?? (3.6-5.2) LV EF(Bi-Plane) ??66.5 % ?(55-75) LVIDs ? 2.56 cm ?? (2.3-3.9) LVPW ?? LVPWd ?0.706 cm ?LVPWth ?43.1 % ?? LVPWs ? 1.01 cm ? Ventricular Septum ?? IVSd ? 0.676 cm ?IVSs ? 0.879 cm ?? Aorta ?? Ao Rtd ? 2.9 cm ?? (zsc 1.4) Ao Asc ? 2.6 cm ?? (zsc 1.6) Index ?1.7 cm/m2 LVOT ?? LVOT ? 2 cm ? Ratios ?? IVS Aortic Sinotubular Junction ?? Diameter ?2.51 cm ? LA Biplane LAVol I BP ?17.6 ml/m2 ? Right Ventricle ?? Right Ventricle ??2.46 cm ? Right Ventricle ??2.53 cm ?? Major [place] ?6.37 cm ?MMODE TA ?? Tricuspid Annul ??2.11 cm ? ++++++++++++++++++++++++++++++++++++ WALL MOTION: ++++++++++++++++++++++++++++++++++++ RESTING WALL MOTION: All uribe are normal Wall Index = 1 Signed 04/09/2018 06:59 AM Adama Hicks M.D. Procedure Note Osmar Hicks MD - 04/09/2018 Echocardiography Report Pat.Name: STEPH ROBERTO Pat.ID: [id number] .Date: 04/08/2018 Refer.MD: LISSY GODFREY Exam Time: 2:27:00 PM Study Type:ECHO WITH CARDIAC DOPPLER COMP Height: 165cm Weight: 50kg BSA: 1.53 m2 Age: 5 1990,27Y Sex: FEMALE BP: 108/57 HR: 97 bpm Sonogrphr: Noel Alfonso [facility] Pat. Stat.:Inpatient Room: [place] [address] CPT: 20925 Reason for Study:LV function assessment Procedures:2D, M-mode, Doppler, Color Flow, Portable Race: W ++++++++++++++++++++++++++++++++++++ SUMMARY: ++++++++++++++++++++++++++++++++++++ The calculated ejection fraction is 67%. Left ventricular diastolic function is normal. The right ventricular size is normal. Right ventricular systolic function is normal. Right ventricular systolic pressure is 25 mmHg. No significant valve stenosis or regurgitation. ++++++++++++++++++++++++++++++++++++ FINDINGS: ++++++++++++++++++++++++++++++++++++ LV: The left ventricular size is normal. The left ventricular systolic function is normal. The calculated ejection fraction is 67%. The septal E/e' is indeterminate at 8-15. The lateral E/e' is normal at <8. The average E/e' is normal at <8. Left ventricular diastolic function is normal. Left ventricular filling pressure is normal. Overall wall motion is normal. All uribe are normal WM: Wall motion appears normal in all segments. LVOT: The left ventricular outflow tract size is normal. The LVOT stroke volume index is 41.8 ml/m2. RV: The right ventricular size is normal. Right ventricular systolic function is normal. Right ventricular systolic pressure is 25 mmHg. TAPSE = 21.1mm (<16 mm indicates systolic RV dysfunction). LA: The left atrial volume is normal ( less than 34 ml/M2). RA: Right atrial size is normal. YORDY: No evidence of pericardial effusion. AO: Aortic root is not dilated. PA: Estimated right atrial pressure of 3 mmHg. PVn: The pulmonary vein doppler wave form is normal suggestive of normal left atrial pressures. SVn: Inferior vena cava shows >50% collapse with respiration consistent with normal right atrial pressure. AV: The aortic valve is trileaflet. No evidence of aortic valve stenosis. No evidence of aortic valve regurgitation. MV: Trace mitral regurgitation. No evidence of mitral stenosis. PV: The pulmonic valve is normal There is trace pulmonic regurgitation TV: The tricuspid valve appears structurally normal. There is trace tricuspid regurgitation. ++++++++++++++++++++++++++++++++++++ MEASUREMENTS: ++++++++++++++++++++++++++++++++++++ DOPPLER LVOT LVOTpkPG 5 mmHg LVOTmnPG 2 mmHg LVOTpkVel 113 cm/s (70-110)* LVOT SV 64 ml Index 41.8 ml/m2 LVOT TVI 20.5 cm LVOT CO 106.6688 l/min AV Forward Flow AV TVI 25.2 cm AV pkPG 7 mmHg AV pkVel 135 cm/s (100-170) Area (TVI) 2.55 cm2 (3-5)* Index 1.67 cm2/m2 AV mnVel 92.8 cm/s Area (Jesus) 2.63 cm2 (3-5)* AV mnPG 4 mmHg MV Forward Flow MV DeTm 151 msec MV E/A 1 MV mnPG 3 mmHg MV pkE 90.7 cm/s (60-130) MV pkPG 6 mmHg MV pkA 94.1 cm/s TV Regurg Flow TV pkPG 22 mmHg TV pkVel 235 cm/s (30-70)* Lat E' Lat e 14.1 cm/s Lat E/E' Lat E/e 6.4 Med E' Med e 9.57 cm/s Med E/E' Med E/e 9.5 Aortic Valve Aortic Valve Ar 1.67 Aortic Valve Ve 0.84 AV DI Value 0.8 DORIS (VTI) Index Value 1.67 LV Mass 2D Value 79.7 g LV Mass [id number] Value 52.1 g/m2 RA Volume Atrial Vaz 3.99 cm Atrial Vaz 8.17 cm2 Atrial Vaz 14.2 ml Right Ventricle Right Ventricle 13.5 cm/s 2D Left Ventricle LVIDd 4.08 cm (3.6-5.2) LV EF(Bi-Plane) 66.5 % (55-75) LVIDs 2.56 cm (2.3-3.9) LVPW LVPWd 0.706 cm LVPWth 43.1 % LVPWs 1.01 cm Ventricular Septum IVSd 0.676 cm IVSs 0.879 cm Aorta Ao Rtd 2.9 cm (zsc 1.4) Ao Asc 2.6 cm (zsc 1.6) Index 1.7 cm/m2 LVOT LVOT 2 cm Ratios IVS Aortic Sinotubular Junction Diameter 2.51 cm LA Biplane LAVol I BP 17.6 ml/m2 Right Ventricle Right Ventricle 2.46 cm Right Ventricle 2.53 cm [place] 6.37 cm MMODE TA Tricuspid Annul 2.11 cm ++++++++++++++++++++++++++++++++++++ WALL MOTION: ++++++++++++++++++++++++++++++++++++ RESTING WALL MOTION: All uribe are normal Wall Index = 1 Signed 04/09/2018 06:59 AM Adama Hicks M.D. us Lissy Godfrey [employer] SPECIALIST ECHO Final R esult * CHLAMYDIA GC RNA (04/08/2018 3:00 PM CDT) SPECIMEN CERVIX 04/09/2018 10:39 AM CDT [facility] CHLAMYDIA RNA TMA NEGATIVE NEGATIVE 04/10/2018 2:32 PM CDT [facility] Comment: A NEGATIVE RESULT DOES NOT PRECLUDE THE PRESENCE OF A CT INFECTION BECAUSE RESULTS ARE DEPENDENT ON ADEQUATE SPECIMEN COLLECTION, ABSENCE OF INHIBITORS, AND SUFFICIENT rRNA TO BE DETECTED. N.GONORRHOEAE RNA TMA NEGATIVE NEGATIVE 04/10/2018 2:32 PM CDT [facility] Comment: A NEGATIVE RESULT DOES NOT PRECLUDE THE PRESENCE OF A GC INFECTION BECAUSE RESULTS ARE DEPENDENT ON ADEQUATE SPECIMEN COLLECTION, ABSENCE OF INHIBITORS, AND SUFFICIENT rRNA TO BE DETECTED. CERVIX UTERI STRUCTURE / Unknown 04/08/2018 3:00 PM CDT Saba Judge MD MICROBIOLOGY - GENERAL ORDERABL ES Final Result [facility] [address] [place] [address], [facility] [address] [place] [address], [id number] * TEST URINE (04/08/2018 2:25 PM CDT) PREG TEST NEGATIVE 04/08/2018 2:50 PM CDT [facility] URINE SPECIMEN FROM URETHRA / Unknown 04/08/2018 2:25 PM CDT us Lissy Godfrey APRN URINE ORDERABLES Final Result [facility] [address] [place] [address], [place] [phone] [id number] * (ABNORMAL) URINALYSIS (04/08/2018 2:25 PM CDT) COLOR (U) LIGHT YELLOW 04/08/2018 2:58 PM CDT [facility] TRANSPARENCY SLIGHTLY CLOUDY 04/08/2018 2:58 PM CDT [facility] SPECIFIC GRAVITY (U) 1.017 1.002 - 1.035 04/08/2018 2:58 PM CDT [facility] U PH 5.0 5 - 8 04/08/2018 2:58 PM CDT [facility] PROTEIN (U) NEGATIVE NEGATIVE 04/08/2018 2:58 PM CDT [facility] URINE GLUCOSE >=500(A) NEGATIVE MG/DL 04/08/2018 2:58 PM CDT [facility] KETONES MG/DL (U) 80(A) NEGATIVE 04/08/2018 2:58 PM CDT [facility] BILIRUBIN (U) NEGATIVE NEGATIVE 04/08/2018 2:58 PM CDT [facility] BLOOD (U) NEGATIVE NEGATIVE 04/08/2018 2:58 PM CDT [facility] NITRITES NEGATIVE NEGATIVE 04/08/2018 2:58 PM CDT [facility] UROBILINOGEN NORMAL 0 - 1 EU/DL 04/08/2018 2:58 PM CDT [facility] LEUKOCYTES (U) NEGATIVE NEGATIVE 04/08/2018 2:58 PM CDT [facility] RBC/HPF 3 0 - 3 /HPF 04/08/2018 2:58 PM CDT [facility] WBC/HPF 1 0 - 6 /HPF 04/08/2018 2:58 PM CDT [facility] BACTERIA (U) NONE /HPF 04/08/2018 2:58 PM CDT [facility] SQUAMOUS EPITHELIALS 20 04/08/2018 2:58 PM CDT [facility] URINE SPECIMEN OBTAINED BY CLEAN CATCH PROCEDURE / Unknown 04/08/2018 2:25 PM CDT Lissy Godfrey [employer]YROLL AND BENEFITS SPECIALIST URINE ORDERABLES Final Result [facility] [address] [place] [address], [id number] * CULTURE URINE (04/08/2018 2:25 PM CDT) SPEC DESCRIPTION URINE CLEAN CATCH 04/08/2018 2:23 PM CDT [facility] SPECIAL REQUESTS NO SPECIAL REQUEST 04/08/2018 2:23 PM CDT [facility] CULTURE RESULT FEW CONTAMINANTS 03/23 8:41 PM CDT [facility] URINE SPECIMEN OBTAINED BY CLEAN CATCH PROCEDURE / Unknown 04/08/2018 2:25 PM CDT 04/08/2018 2:31 PM CDT us Lissy Godfrey [employer] BENEFITS SPECIALIST MICROBIOLOGY - GENERAL ORDERABLES Final Result [facility] [address] [place] [address], [id number] * XR CHEST PORTABLE (04/08/2018 2:05 PM CDT) Anatomical Region Laterality Modality Chest Radiographic Angela ging 04/08/2018 2:30 PM CDT Impressions 04/08/2018 2:30 PM CDT IMPRESSION: No active chest disease. Interpreted By: Israel Huber MD, 04/08/2018 2:30 PM Order Doctor: LISSY GODFREY Narrative 04/08/2018 2:30 PM CDT Exam description: Chest 1 view Exam Time : 1407 hours Comparison Film : 11/28/2015 Indications: DKA, SOB ?? Findings: Semiupright portable AP film obtained.Heart and mediastinum within normal limits. ??Lungs clear of active disease. No consolidation, CHF or effusions. ?No pneumothorax. No acute bony abnormality. Procedure Note Israel Huber MD - 04/08/2018 Exam description: Chest 1 view Exam Time : 1407 hours Comparison Film : 11/28/2015 Indications: DKA, SOB Findings: Semiupright portable AP film obtained.Heart and mediastinum withinnormal limits. Lungs clear of active disease. No consolidation, CHF oreffusions. No pneumothorax. No acute bony abnormality. IMPRESSION: No active chest disease. Interpreted By: Israel Huber MD, 04/08/2018 2:30 PM Order Doctor: LISSY GODFREY Lissy Godfrey [employer] BENEFITS SPECIALIST GENERAL IMAGING Final R esult * (ABNORMAL) POCT glucose (04/08/2018 1:52 PM CDT) GLUCOSE POC 274(H) 70 - 109 04/08/2018 5:11 PM CDT [facility] ORDERS INTERFACE 04/08/2018 1:52 PM CDT Anson Dominique DO POCT ORDERABLES - DEVICE Final Result [facility] ORDERS INTERFACE US * ECG 12 lead (04/08/2018 1:15 PM CDT) 04/08/2018 1:15 PM CDT Narrative [facility] - 04/08/2018 3:49 PM CDT ? [facility] ? [address], [place] ??[address] ? Test Date: ?2018-04-08 Pat Name: ? STEPH PARDEEP ? Department: ?? 1 ? Room: ? [id number] Gender: ? Female ? 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 TERESA RM : ?1990 ? Requested By: LISSY MENDESWORTH Order Number: [id number] ? Reading MD: ?? Galen eHrnandez ? Measurements Intervals ?[place] ? Rate: ? 99 ? P: ?57 MA: ? 135 ?QRS: ?68 QRSD: ? 73 ? T: ?44 QT: ? 348 ? QTc: ?447 ? Interpretive Statements SINUS RHYTHM Procedure Note Galen Hernandez MD - 04/08/2018 [facility] [address] [place] [address] Test Date: 2018-04-08 Pat Name: STEPH ROBERTO Department: 1 Room: [place] [address] Gender: Female Maintenance Instructor: TERESA RM : 1990 Requested By: LISSY GODFREY Order Number: [id number] Reading MD: Galen Hernandez Measurements Intervals [place] Rate: 99 P: 57 MA: 135 QRS: 68 QRSD: 73 T: 44 QT: 348 QTc: 447 Interpretive Statements SINUS RHYTHM us Lissy Godfrey [employer] BENEFITS SPECIALIST ECG ORDERABLES Final R esult Performing Organization Address City/[facility]/ZIP Co de Phone Number [facility] * MRSA PCR nares Screening (04/08/2018 1:13 PM CDT) SPECIMEN SOURCE RESPIRATORY, NOSE 04/08/2018 1:18 PM CDT [facility] MRSA BY PCR NASAL METHICILLIN RESISTANT STAPH AUREUS NOT DETECTED 04/09/2018 11:49 AM CDT [facility] NASAL STRUCTURE / Unknown 04/08/2018 1:13 PM CDT Anson Dominique DO MICROBIOLOGY - GENERAL ORDERABL ES Final Result Performing Organization Address [facility] Co de Phone Number [facility] [address] [place] [address], [phone] * (ABNORMAL) Blood gas, venous (04/08/2018 1:13 PM CDT) PH VENOUS 7.20(L) 7.32 - 7.42 04/08/2018 1:53 PM CDT [facility] PCO2 29.7(L) 41 - 51 MMHG 04/08/2018 1:53 PM CDT [facility] PO2 VENOUS 116.0(H) 25 - 40 MM HG 04/08/2018 1:53 PM CDT [facility] BICARB VENOUS 11.2(L) 24 - 28 MMOL/L 04/08/2018 1:53 PM CDT [facility] TCO2 12.1(L) 25 - 40 MMOL/L 04/08/2018 1:53 PM CDT [facility] BASE DEFICIT VENOUS 15.6(H) 0 - 2 MMOL/L 04/08/2018 1:53 PM CDT [facility] CARBONIC ACID VENOUS 0.9 MMOL/L 04/08/2018 1:53 PM CDT [facility] Blood specimen (specimen) 04/08/2018 1:13 PM CDT Lissy Godfrey [employer] BENEFITS SPECIALIST LABORATORY Final R esult Performing Organization Address [facility] Co de Phone Number [facility] [address] [place] [address], [phone] * (ABNORMAL) BETA-HYDROXYBUTYRATE (04/08/2018 1:13 PM CDT) BETA-HYDROXYBU TYRATE 6.1(H) 0.0 - 0.3 MMOL/L 04/08/2018 1:51 PM CDT [facility] 04/08/2018 1:13 PM CDT Lissy Godfrey APRN LABORATORY Final R esult Performing Organization Address [facility] Co de Phone Number [facility] [address] [place] [address], [place] [phone] * THROMBOPLASTIN TIME PARTIAL,PTT (04/08/2018 1:13 PM CDT) PTT 24.6 22.0 - 35.0 SEC 04/08/2018 1:54 PM CDT [facility] 04/08/2018 1:13 PM CDT Lissy Godfrey APRN LABORATORY Final R esult Performing Organization Address [facility] Co de Phone Number [facility] [address] [place] [address], [place] [phone] * PROTHROMBIN TIME, VENOUS (04/08/2018 1:13 PM CDT) [facility] PROTIME 13.7 11.6 - 14.3 SEC 04/08/2018 1:53 PM CDT [facility] INR 1.1 0.9 - 1.1 04/08/2018 1:53 PM CDT [facility] 04/08/2018 1:13 PM CDT Lissy Godfrey APRN LABORATORY Final R [facility] Performing Organization Address [facility] Co de Phone Number [facility] [address] [place] [address], [phone] * (ABNORMAL) HEMOGLOBIN, GLYCATED (04/08/2018 12:41 PM CDT) [facility] HGB A1C 10.2(H) 4.2 - 6.3 % 04/09/2018 4:13 AM CDT [facility] ESTIMATED AVG GLUCOSE 246(H) 74 - 106 MG/DL 04/09/2018 4:13 AM CDT [facility] 04/08/2018 12:4 1 PM CDT Lissy Godfrey APRN LABORATORY Final R eslucina Performing Organization Address City/[facility] Co de Phone Number [facility] [address] [place] [address], [place] [phone] * CULTURE, BACTERIA, BLOOD (04/08/2018 12:41 PM CDT) [facility] SPEC DESCRIPTION BLOOD 04/08/2018 12:47 PM CDT [facility] SPECIAL REQUESTS NO SPECIAL REQUEST 04/08/2018 12:47 PM CDT [facility] CULTURE RESULT NO GROWTH 5 DAYS 04/13/2018 11:45 PM CDT [facility] BLOOD SPECIMEN OBTAINED FOR BLOOD CULTURE / Unknown 04/08/2018 12:41 PM CDT 04/08/2018 5:04 PM CDT Lissy Godfrey [employer]EF[employer] SPECIALIST MICROBIOLOGY - GENERAL ORDERABLES Final Result Performing Organization Address [facility]/ZIP Co de Phone Number [facility] [address] [place] [address], [phone] * CULTURE, BACTERIA, BLOOD (04/08/2018 12:41 PM CDT) SPEC DESCRIPTION BLOOD 04/08/20 5:05 PM CDT [facility] SPECIAL REQUESTS BLOOD-AERO BIC BOTTLE ONLY 04/08/2018 5:05 PM CDT [facility] CULTURE RESULT NO GROWTH 5 DAYS 04/13/2018 11:45 PM CDT [facility] BLOOD SPECIMEN OBTAINED FOR BLOOD CULTURE / Unknown 04/08/2018 12:41 PM CDT 04/08/2018 5:05 PM CDT Lissy Godfrey [employer]EF[employer] SPECIALIST MICROBIOLOGY - GENERAL ORDERABLES Final Result Performing Organization Address [facility] Co de Phone Number [facility] [address] [place] [address], [phone] * (ABNORMAL) CBC W/DIFF AUTOMATED (04/08/2018 12:41 PM CDT) WBC 8.0 4.0 - 10.8 x10'3/uL 04/08/2018 2:14 PM CDT [facility] RBC 4.09(L) 4.10 - 5.40 x10'6/uL 04/08/2018 2:14 PM CDT [facility] HGB 12.6 12.0 - 16.0 G/DL 04/08/2018 2:14 PM CDT [facility] HCT 37.2 36.0 - 47.0 % 04/08/2018 2:14 PM CDT [facility] MCV 91.0 78.0 - 100.0 FL 04/08/2018 2:14 PM CDT [facility] MCH 30.8 27.0 - 31.0 PG 04/08/2018 2:14 PM CDT [facility] MCHC 33.9 33.0 - 36.0 G/DL 04/08/2018 2:14 PM CDT [facility] RDW 11.9 11.5 - 14.5 % 04/08/2018 2:14 PM CDT [facility] PLT 210 150 - 350 x10'3/uL 04/08/2018 2:14 PM CDT [facility] MPV 10.3 7.4 - 10.4 FL 04/08/2018 2:14 PM CDT [facility] ABS. NEUTROPHILS TOTAL 5.55 1.60 - 8.30 x10'3/uL 04/08/2018 2:14 PM CDT [facility] ABS. LYMPHOCYTES 1.81 0.80 - 4.70 x10'3/uL 04/08/2018 2:14 PM CDT [facility] ABS. MONOCYTES 0.49 0.00 - 1.50 x10'3/uL 04/08/2018 2:14 PM CDT [facility] ABS. EOSINOPHILS 0.04 0.00 - 0.40 x10'3/uL 04/08/2018 2:14 PM CDT [facility] ABS. BASOPHILS 0.06 0.00 - 0.20 x10'3/uL 04/08/2018 2:14 PM CDT [facility] ABS. IMMATURE GRANULOCYTES 0.02 0.00 - 0.03 x10'3/uL 04/08/2018 2:14 PM CDT [facility] ABS. NUCLEATED RBC'S 0.00 0.0 x10'3/uL 04/08/2018 2:14 PM CDT [facility] 04/08/2018 12:4 1 PM CDT us Donaldson Armida Godfrey [employer]ENEFITS SPECIALIST LABORATORY Final R esult Performing Organization Address [facility] Co de Phone Number [facility] [address] [place] [address], [id number] * LACTIC ACID (04/08/2018 12:41 PM CDT) Pathologist [facility] LACTIC ACID VENOUS 0.8 0.4 - 2.0 MMOL/L 04/08/2018 2:49 PM CDT [facility] 04/08/2018 12:4 1 PM CDT us Donaldson Armida Godfrey APRN LABORATORY Final R esult Performing Organization Address [facility] de Phone Number [facility] [address] [place] [address], [place] [phone] * (ABNORMAL) POCT glucose (04/08/2018 12:26 PM CDT) [facility] GLUCOSE POC 247(H) 70 - 109 04/08/2018 12:31 PM CDT [facility] ORDERS INTERFACE 04/08/2018 12:2 6 PM CDT Anson Dominique DO POCT ORDERABLES - DEVICE Final Result Performing Organization Address [facility] Co de Phone Number [facility] ORDERS INTERFACE US * (ABNORMAL) LIPID PANEL (04/08/2018 12:13 PM CDT) CHOLESTEROL 206 MG/DL 04/08/2018 2:19 PM CDT [facility] Comment:HIGH: > OR = 240 TRIGLYCERIDES 385 MG/DL 04/08/2018 2:19 PM CDT [facility] Comment:200-499 HIGH HDL 43(L) >49 MG/DL 04/08/2018 2:19 PM CDT [facility] LDL (CALCULATED) 86 MG/DL 04/08/20 18 2:19 PM CDT [facility] Comment:<100 OPTIMAL VLDL CALCULATION 77 MG/DL 04/08/20 18 2:19 PM CDT [facility] Comment:REFERENCE RANGE NOT ESTABLISHED CHOL/HDL RATIO 4.8 04/08/2018 2:19 PM CDT [facility] Comment:REFERENCE RANGE NOT ESTABLISHED LDL/HDL 2.0 04/08/2018 2:19 PM CDT [facility] Comment:REFERENCE RANGE NOT ESTABLISHED NON HDL CHOLESTEROL 163 MG/DL 04/08/2018 2:19 PM CDT [facility] Comment:REFERENCE RANGE NOT ESTABLISHED 04/08/2018 12:1 3 PM CDT Lissy Godfrey [facility] LABORATORY Final R [facility] Performing Organization Address City/[facility] Co de Phone Number [facility] [address] [place] [address], [phone] * (ABNORMAL) LIPASE (04/08/2018 12:13 PM CDT) Pathologist [facility] LIPASE 60(L) 73 - 393 UNITS/L 04/08/2018 2:19 PM CDT [facility] 04/08/2018 12:1 3 PM CDT Lissy Godfrey [facility] LABORATORY Final R [facility] Performing Organization Address [facility] Co de Phone Number [facility] [address] [place] [address], [phone] * THYROID STIM HORMONE, TSH (04/08/2018 12:13 PM CDT) TSH 3.200 0.358 - 3.740 uIU/ML 04/08/2018 2:19 PM CDT [facility] 04/08/2018 12:1 3 PM CDT us Lissy Godfrey APRN LABORATORY Final R esult Performing Organization Address [facility] Co de Phone Number [facility] [address] [place] [address], [place] [phone] * PHOSPHORUS, INORGANIC PHOSPHATE (04/08/2018 12:13 PM CDT) PHOSPHORUS 2.6 2.5 - 4.9 MG/DL 04/08/2018 2:19 PM CDT [facility] 04/08/2018 12:1 3 PM CDT us Lissy Godfrey APRN LABORATORY Final R esult Performing Organization Address [facility] de Phone Number [facility] [address] [place] [address], [place] [phone] * MAGNESIUM (04/08/2018 12:13 PM CDT) MAGNESIUM 1.7 1.6 - 2.6 MG/DL 04/08/2018 2:19 PM CDT [facility] 04/08/2018 12:1 3 PM CDT us Lissy Godfrey APRN LABORATORY Final R esult Performing Organization Address [facility] Co de Phone Number [facility] [address] [place] [address], [place] [phone] * TROPONIN, QUANT (04/08/2018 12:13 PM CDT) TROPONIN I <0.015 <0.045 ng/mL. 04/08/2018 2:19 PM CDT [facility] 04/08/2018 12:1 3 PM CDT us Lissy Huffman Garett [employer]EF[employer] SPECIALIST LABORATORY Final R esult Performing Organization Address City/[facility]/ZIP Co de Phone Number [facility] [address] [place] [address], [place] [phone] * CK (CPK) (04/08/2018 12:13 PM CDT) CPK 52 26 - 192 U/L 04/08/2018 2:19 PM CDT [facility] 04/08/2018 12:1 3 PM CDT Lissy Godfrey [employer]EF[employer] SPECIALIST LABORATORY Final R esult Performing Organization Address [facility] Co de Phone Number [facility] [address] [place] [address], [place] [phone] * (ABNORMAL) COMPREHENSIVE METABOLIC PANEL (04/08/2018 12:13 PM CDT) SODIUM S/P/B 132(L) 136 - 145 MMOL/L 04/08/2018 2:19 PM CDT [facility] POTASSIUM S/P/B 4.4 3.5 - 5.1 MMOL/L 04/08/2018 2:19 PM CDT [facility] CHLORIDE S/P/B 104 98 - 107 MMOL/L 04/08/2018 2:19 PM CDT [facility] CO2 12.3(L) 21.0 - 32.0 MMOL/L 04/08/2018 2:19 PM CDT [facility] GLUCOSE 264(H) 74 - 106 MG/DL 04/08/2018 2:19 PM CDT [facility] BUN 16 7 - 18 MG/DL 04/08/2018 2:19 PM CDT [facility] CREATININE S/P/B 0.95 0.55 - 1.02 MG/DL 04/08/2018 2:19 PM CDT [facility] CALCIUM S/P/B 7.8(L) 8.4 - 10.5 MG/DL 04/08/2018 2:19 PM T [facility] BILIRUBIN TOTAL S/P/B 0.6 0.2 - 1.0 MG/DL 04/08/2018 2:19 PM [facility] ALKALINE PHOSPHATASE S/P/B 85 37 - 98 U/L 04/08/2018 2:19 PM [facility] AST 18 15 - 37 U/L 04/08/2018 2:19 PM [facility] ALT 27 13 - 56 U/L 04/08/2018 2:19 PM [facility] TOTAL PROTEIN S/P/B 7.8 6.4 - 8.2 G/DL 04/08/2018 2:19 PM [facility] ALBUMIN S/P/B 3.7 3.4 - 5.0 G/DL 04/08/2018 2:19 PM [facility] ANION GAP 15.7 MMOL/L 04/08/2018 2:19 PM [facility] Comment:REFERENCE RANGE NOT ESTABLISHED OSMOLALITY (CALC) 284 MOSM/KG 018 2:19 PM [facility] Comment:REFERENCE RANGE NOT ESTABLISHED EGFR NON-AFR. AMER. 81(L) >90 ML/MIN/1. 73 M2 04/08/2018 2:19 PM [facility] Comment: THE ESTIMATED GFR IS CALCULATED [...] ml/min/1.73 m2 G5,KIDNEY FAILURE: <15 ml/min/1.73 m2 EGFR AFR. AMER. >90 >90 ML/MIN/1. 73 M2 04/08/2018 2:19 PM CDT [facility] Comment: THE ESTIMATED GFR [...] ml/min/1.73 m2 G5,KIDNEY FAILURE: <15 ml/min/1.73 m2 04/08/2018 12:1 3 PM CDT us Lissy Godfrey [employer]EF[employer] SPECIALIST LABORATORY Final R esult [facility] [address] [place] [address], [phone] * Cytopath Cerv/Vag Thin Layer (04/08/2018 6:52 AM CDT) THIN PREP PAP ? [facility] ?[address] ?[place] [address] ? Department of Pathology ? Pathology Report ? CERVICAL/VAGINAL PAP SMEAR REPORT Name: STEPH ROBERTO ? Age: 5 1990 (Age: 27) ? Location: [address] Sex: F ?Collected Date: 04/08/2018 Hospital #: [id number] ?Date Received: 04/11/2018 Date Reported: 04/12/2018 Provider: SABA JUDGE ?[facility] INTERPRETATION CERVICAL/ENDOCERVI KENN, PAP TEST: ? SATISFACTORY FOR EVALUATION. ENDOCERVICAL/TRANS FORMATION ZONE COMPONENT PRESENT. ? NEGATIVE FOR INTRAEPITHELIAL LESION OR MALIGNANCY. SHIFT IN BACTERIAL DENNIS SUGGESTIVE OF BACTERIAL VAGINOSIS. Electronically Signed Out ? Chet Durant M.D. Brooke Stoll, LYNDSEY (ASCP) CLINICAL HISTORY HEALTH MAINTENANCE ThinPrep Pap Test Only Date of Last Menstrual Period: ? 03/16/18 Menstrual Status: Regular SPECIMEN SUBMITTED CERVICAL/ENDOCERVI KENN ?Specimen Received:1 Thin Prep Vial, Image Assisted Pap (SMD) ? Please note: The Pap smear is not a diagnostic test. ??It is a screening test. ??Negative results on combined screening (Pap test and HPV-DNA) have a high negative predictive value (99.1-100 percent) for cervical cancer. ??The pap test is not effective in detecting cervical adenocarcinoma. [facility] 04/08/2018 6:52 AM CDT 04/11/2018 6:52 AM CDT Comment:CERVICAL/ENDOCERVICA L us Saba Judge MD PATHOLOGY/CYTOLOGY ORDERABLES F inal Result [facility] [address] [place] [address], documented in this encounter Visit Diagnoses Diagnosis Diabetic ketoacidosis ([facility])- Primary Type II or unspecified type diabetes mellitus with ketoacidosis, not stated as uncontrolled High anion gap metabolic acidosis Acidosis Type 1 diabetes mellitus ([facility]) Type I (juvenile type) diabetes mellitus without mention of complication, not stated as uncontrolled Hyponatremia Hyposmolality and/or hyponatremia Hyperglycemia Other abnormal glucose Hyperlipidemia Other and unspecified hyperlipidemia Smoker Tobacco use disorder Anxiety Anxiety state, unspecified Depression Depressive disorder, not elsewhere classified UTI (urinary tract infection) Urinary tract infection, site not specified documented in this encounter Administered Medications Inactive Administered Medications - up to 3 most recent administrations Medication Order MAR Action Action Date Dose Rate Site 0.45 % NaCl with KCl 20 mEq infusion at 300 mL/hr, Intravenous, Continuous, Starting on Sun04/08/18 at 1315, Until Sun04/09/18 at 0749, IV fluid #1 until glucose is less than 200 mg/dL. Do not give if potassium is greater than 5 mEq/L. New Bag 04/08/2018 2:49 PM CDT 300 mL/hr acetaminophen (TYLENOL) 160 MG/5ML solution 650 mg 650 mg, Oral, Every 4 hours PRN, Mild pain (Scale 1 - 3), Starting on Sun04/08/18 at 1242, Until Dennise 04/11/18 at 1942, Give if unable to swallow tablets/capsules or if patient prefers liquid. Maximum dose of acetaminophen is 4000 mg from all sources in 24 hours. acetaminophen (TYLENOL) suppository 650 mg 650 mg, Rectal, Every 4 hours PRN, Mild pain (Scale 1 - 3), Starting on Sun04/08/18 at 1242, Until Dennise 04/11/18 at 1942, Give if unable to take PO. Maximum dose of acetaminophen is 4000 mg from all sources in 24 hours. acetaminophen (TYLENOL) tablet 650 mg 650 mg, Oral, Every 4 hours PRN, Mild pain (Scale 1 - 3), Starting on Sun04/08/18 at 1242, Until Dennise 04/11/18 at 1942, Maximum dose of acetaminophen is 4000 mg from all sources in 24 hours. Given 04/09/2018 9:28 PM CDT 650 mg Given 04/08/2018 6:43 PM CDT 650 mg calcium chloride 1 g in sodium chloride 0.9 % 100 mL IVPB 1 g, Intravenous, Administer over 60 Minutes, Once, 1 dose, On Sun04/08/18 at 1900, Maximum concentration is 20 mg/ml. Rate should not exceed 1 gm/hr. New Bag 04/08/2018 8:29 PM CDT 1 g 100 mL/hr dextrose (GLUTOSE) 40 % oral gel 15-30 g 15-30 g, Oral, As needed, Low blood sugar, Starting on Sun04/08/18 at 1238, Until Dennise 04/11/18 at 1942, If patient is verbally responsive and taking thickened liquids or oral medications: Blood glucose less than 50 mg/dL - give 30 g (2 tubes), repeat until blood glucose reaches 70 mg/dL Blood glucose 50-69 mg/dL - give 15 g (1 tube), repeat until blood glucose reaches 70 mg/dL dextrose 5 % and 0.45 % NaCl with KCl 20 mEq infusion at 250 mL/hr, Intravenous, Continuous, Starting on Sun04/08/18 at 1315, Until Sun04/09/18 at 0749, IV fluid #2 after glucose is less than 200 mg/dL. Do not give if potassium is greater than 5 mEq/L. New Bag 04/09/2018 4:15 AM CDT 250 mL/hr New Bag 04/09/2018 12:22 AM CDT 250 mL/hr New Bag 04/08/2018 8:27 PM CDT 250 mL/hr dextrose 50 % solution 25-50 mL 25-50 mL, Intravenous, As needed, Low blood sugar, Starting on Sun04/08/18 at 1238, Until Sun04/11/18 at 1942, If patient is verbally responsive and NPO or unable to swallow: Blood glucose less than 50 mg/dL - give 50 mL (1 syringe), repeat until blood glucose reaches 70 mg/dL Blood glucose 50-69 mg/dL - give 25 mL (0.5 syringe), repeat until blood glucose reaches 70 mg/dL If patient is verbally UNresponsive and NPO or unable to swallow: Blood glucose less than 70 mg/dL - give 50 mL (1 syringe), repeat until blood glucose reaches 70 mg/dL docusate sodium (COLACE) capsule 100 mg 100 mg, Oral, Daily, First dose on Sun04/09/18 at 0900, Until Discontinued Given 04/11/2018 7:59 AM CDT 100 mg Given 04/09/2018 8:19 AM CDT 100 mg fentaNYL (SUBLIMAZE) injection 25 mcg 25 mcg, Intravenous, Every 4 hours PRN, Severe pain (Scale 8 - 10), Starting on Sun04/08/18 at 1800, Until Sun04/09/18 at 1329, If intravenous (IV) route has been ordered, give over 1-2 minutes. Given 04/09/2018 6:04 AM CDT 25 mcg Given 04/09/2018 1:09 AM CDT 25 mcg Given 04/08/2018 9:04 PM CDT 25 mcg glucagon injection 1 mg 1 mg, Intramuscular, Once as needed, Other, Low blood sugar, 1 dose, Starting on Sun04/08/18 at 1238, Until Sun04/11/18 at 194, If patient is verbally UNresponsive and no IV access with blood glucose less than 70 mg/dL. Do NOT repeat administration. heparin (porcine) injection 5,000 Units 5,000 Units, Subcutaneous, Every 8 hours scheduled (3 times per day), First dose on Sun04/08/18 at 1700, Until Discontinued Given 04/08/2018 6:44 PM CDT 5,000 Units hydrocodone-acetaminophen (NORCO) 5-325 MG tablet 1 tablet 1 tablet, Oral, Every 6 hours PRN, Moderate pain (Scale 4 - 7), Starting on Sun04/09/18 at 2234, Until Sun04/11/18 at 1942, Maximum dose of acetaminophen is 4000 mg from all sources in 24 hours. Given 04/11/2018 9:54 AM CDT 1 t ablet Given 04/11/2018 3:42 AM CDT 1 tablet Given 04/10/2018 9:36 PM CDT 1 tablet insulin glargine (LANTUS) injection 20 Units 20 Units, Subcutaneous, 2 times daily, First dose on Sun04/09/18 at 0815, Until Discontinued Given 04/10/2018 11:40 PM CDT 20 Units Given 04/10/2018 9:10 AM CDT 20 Units Given 04/09/2018 9:34 PM CDT 20 Units insulin glargine (LANTUS) injection 20 Units 20 Units, Subcutaneous, Nightly at bedtime, First dose on Sun04/11/18 at 2100, Until Discontinued insulin lispro (HUMALOG) injection 0-8 Units 0-8 Units, Subcutaneous, 4 times daily before meals and nightly, First dose on Sun04/09/18 at 1100, Until Discontinued, From sliding scale insulin subcut med order set - For TDI 30 - 59 units Blood Glucose: (Less than 70: Initiate Hypoglycemia Standing Orders) (70 - 149, administer 0 units) (150 - 199, administer 2 units) (200 - 249, administer 3 units) (250 - 299, administer 5 units) (300 - 349, administer 7 units) (Greater than 349, administer 8 units and Call Physician) Given 04/10/2018 8:33 PM CDT 3 Units Given 04/10/2018 10:29 AM CDT 2 Units Given 04/09/2018 4:27 PM CDT 8 Units insulin lispro (HUMALOG) injection 1-4 Units 1-4 Units, Subcutaneous, 3 times daily before meals, First dose on Sun04/11/18 at 1130, Until Discontinued, BG-- 150--200-- GIVE 1 UNIT OF INSULIN BG-- 201--250-- GIVE 2 UNIT OF INSULIN BG-- 251--300-- GIVE 3 UNIT OF INSULIN Blood sugar above 300 give 4 units of insulin and call [facility] insulin lispro (HUMALOG) injection 4 Units 4 Units, Subcutaneous, 3 times daily with meals, First dose on Sun04/10/18 at 1200, Until Discontinued, For sliding scale, activate Sliding Scale Insulin order set Given 04/10/2018 9:12 AM CDT 4 Units insulin lispro (HUMALOG) injection 6 Units 6 Units, Subcutaneous, 3 times daily before meals, First dose on Dennise 04/11/18 at 1130, Until Discontinued, For sliding scale, activate Sliding Scale Insulin order set insulin regular (NOVOLIN R/HUMULIN R) 1 Units/mL in sodium chloride 0.9 % 100 mL infusion 0.05 Units/kg/hr ? 49.9 kg (2.495 mL/hr, rounded to 2.5 mL/hr), Intravenous, Continuous, Starting on Sun04/08/18 at 1345, Until Sun04/09/18 at 0747, Step 1 - Initial rate of 0.14 unit/kg/hr. Notify MD if glucose has not fallen by at least 10% from presenting value after one hour. Step 2 - When glucose first falls below 200 mg/dL REDUCE to 0.05 unit/kg/hr and notify MD. Step 3 - If any subsequent glucose above 200 mg/dL or below 150 mg/dL contact MD for orders Rate/Dose Change 04/09/2018 2:20 AM CDT 0.05 Units/kg/hr 2.5 mL/hr Rate/Dose Change 04/08/2018 6:41 PM CDT 0.025 Units/kg/hr 1.25 mL/hr Rate/Dose Change 04/08/2018 3:59 PM CDT 0.05 Units/kg/hr 2 .5 mL/hr iopamidol (ISOVUE-370) 76 % injection 100 mL 100 mL, Intravenous, IMG once as needed, Contrast, 1 dose, Starting on Sun04/10/18 at 1747, Until Sun04/10/18 at 1747 Given 04/10/2018 5:47 PM CDT 100 mLs ipratropium-albuterol (DUONEB) 0.5-2.5 (3) MG/3ML nebulizer solution 3 mL 3 mL, Nebulization, Every 4 hours PRN, Shortness of breath, respiratory distress, Starting on Sun04/08/18 at 1242, Until Dennise 04/11/18 at 1942 lactated ringers bolus infusion 1,000 mL 1,000 mL, Intravenous, Administer over 15 Minutes, Once, 1 dose, On Sun04/08/18 at 1415 New Bag 04/08/2018 2:59 PM CDT 1,000 mLs lactated ringers bolus infusion 1,000 mL 1,000 mL, Intravenous, Administer over 15 Minutes, Once, 1 dose, On Sun04/08/18 at 1415 [facility] 04/08/2018 2:59 PM CDT 1,000 mLs lactated ringers bolus infusion 2,000 mL 2,000 mL, Intravenous, Administer over 15 Minutes, Once, 1 dose, On Sun04/08/[address] [facility] 04/08/2018 6:39 PM CDT 2,000 mLs magnesium oxide (MAG-OX) tablet 400 mg 400 mg, Oral, Daily, First dose on Sun04/10/18 at 1000, Until Discontinued Given 04/11/2018 7:59 AM CDT 400 mg Given 04/10/2018 11:00 AM CDT 400 mg magnesium sulfate IVPB 2 g 2 g, Intravenous, at 25 mL/hr, Once, 1 dose, On Sun04/08/[address] [facility] 04/08/2018 6:43 PM CDT 2 g 25 mL/hr magnesium sulfate IVPB 2 g 2 g, Intravenous, at 25 mL/hr, Once, 1 dose, On Sun04/09/[address] [facility] 04/09/2018 8:21 AM CDT 2 g 25 mL/hr metoclopramide (REGLAN) tablet 10 mg 10 mg, Oral, 2 times daily before meals, First dose (after last modification) on Sun04/11/18 at 1600, Until Discontinued metroNIDAZOLE (FLAGYL) tablet 500 mg 500 mg, Oral, Every 12 hours scheduled (2 times per day), 14 doses, First dose on Sun04/09/18 at 2100, Last dose on Sun04/16/18 at 0900 Given 04/11/2018 7:59 AM CDT 500 mg Given 04/10/2018 8:35 PM CDT 500 mg Given 04/10/2018 9:10 AM CDT 500 mg nitrofurantoin (macrocrystal-monohydrate) (MACROBID) capsule 100 mg 100 mg, Oral, Every 12 hours scheduled (2 times per day), 10 doses, First dose (after last modification) on Sun04/09/18 at 1030, Last dose on Sun04/13/18 at 2100 Given 04/11/2018 7:59 AM CDT 100 mg Given 04/10/2018 8:35 PM CDT 100 mg Given 04/10/2018 9:10 AM CDT 100 mg ondansetron (ZOFRAN) injection 4 mg 4 mg, Intravenous, Once, 1 dose, On Sun04/08/18 at 1315, IV push over 2-5 minutes. Given 04/08/2018 1:56 PM CDT 4 mg ondansetron (ZOFRAN) injection 4 mg 4 mg, Intravenous, Every 6 hours PRN, Nausea, Starting on Sun04/08/18 at 2034, Until Dennise 04/11/18 at 1942, IV push over 2-5 minutes. Given 04/09/2018 5:57 AM CDT 4 mg Given 04/08/2018 8:49 PM CDT 4 mg pantoprazole (PROTONIX) EC tablet 40 mg 40 mg, Oral, Daily, First dose on Sun04/10/18 at 1330, Until Discontinued Given 04/11/2018 8:00 AM CDT 40 mg Given 04/10/2018 1:51 PM CDT 40 mg piperacillin-tazobactam (ZOSYN) 3.375 g in sodium chloride 0.9 % 50 mL IVPB 3.375 g, Intravenous, Administer over 30 Minutes, Once, 1 dose, On Sun04/08/18 at 1400, Administer over 30 minutes. New Bag 04/08/2018 3:57 PM CDT 3.375 g 100 mL/hr piperacillin-tazobactam (ZOSYN) 3.375 g in sodium chloride 0.9 % 50 mL IVPB 3.375 g, Intravenous, Administer over 240 Minutes, Every 8 hours, First dose (after last modification) on Sun04/09/18 at 0000, Until Discontinued, Administer over 4 hours (extended infusion). New Bag 04/09/2018 8:19 AM CDT 3.375 g 12.5 mL/hr New Bag 04/09/2018 12:04 AM CDT 3.375 g 12.5 mL/hr potassium chloride CR (KLOR-CON M) tablet 40 mEq 40 mEq, Oral, Once, 1 dose, On Sun04/09/18 at 0815 Given 04/09/2018 8:20 AM CDT 40 mEq pravastatin (PRAVACHOL) tablet 20 mg 20 mg, Oral, Every evening, First dose on Sun04/09/18 at 2100, Until Discontinued Given 04/10/2018 8:35 PM CDT 20 mg Given 04/09/2018 9:29 PM CDT 20 mg senna-docusate (SENOKOT-S) 8.6-50 MG tablet 1 tablet 1 tablet, Oral, Nightly at bedtime, First dose on Sun04/08/18 at 2100, Until Discontinued Given 04/09/2018 9:29 PM CDT 1 tablet Given 04/08/2018 8:33 PM CDT 1 tablet sodium chloride 0.9% bolus infusion SOLN 2,000 mL 2,000 mL, Intravenous, Administer over 15 Minutes, Once, 1 dose, On Sun04/08/18 at 1315, Minimum of 2 liters if not already given in ED New Bag 04/08/2018 1:55 PM CDT 2,000 mLs 999 mL/hr sodium phosphate 30 mmol in sodium chloride 0.45 % 500 mL IVPB 30 mmol, Intravenous, Once, 1 dose, On Sun04/08/18 at 1900, Infuse at a rate of up to 15 mmol/hr. Given 04/08/2018 8:29 PM CDT 30 mmol vancomycin (VANCOCIN) 750 mg in sodium chloride 0.9 % 250 mL IVPB 750 mg, Intravenous, at 265 mL/hr, Every 12 hours, First dose on Sun04/08/18 at 1445, Until Discontinued New Bag 04/09/2018 2:44 AM CDT 750 mg 265 mL/hr New Bag 04/08/2018 5:13 PM CDT 750 mg 265 mL/hr documented in this encounter Active and Recently Administered Medications Times are shown in CDT. Scheduled Medication Order 04/09/2018 04/10/2018 04/11/2018 dextrose 50 % solution 12.5 g 12.5 g, Intravenous, Once, 1 dose, On Dennise 04/11/18 at 0915, Administration rate 3 mL/min 0934 (Not Given - Provider: Milli Bean RN - Reason: Patient/family declined) docusate sodium (COLACE) capsule 100 mg 100 mg, Oral, Daily, First dose on Sun04/09/18 at 0900, Until Discontinued 08 (Given - Provider: Martina Benitez RN) 0911 (Not Given - Provider: Harjinder Olmstead RN - Reason: Patient/family declined) 0759 (Given - Provider: Milli Bean, RYAN) insulin glargine (LANTUS) injection 20 Units (CANCELED) 20 Units, Subcutaneous, 2 times daily, First dose on Sun04/09/18 at 0815, Until Discontinued 0820 (Given - Provider: Martina Benitez RN)213 (Given - Provider: Marge Leon RN) 09 (Given - Provider: Harjinder Olmstead RN)234 (Given - Provider: Sarah Guzman, RYAN) insulin glargine (LANTUS) injection 20 Units 20 Units, Subcutaneous, Nightly at bedtime, First dose on Sun04/11/18 at 2100, Until Discontinued insulin lispro (HUMALOG) injection 0-8 Units (CANCELED) 0-8 Units, Subcutaneous, 4 times daily before meals and nightly, First dose on Sun04/09/18 at 1100, Until Discontinued, From sliding scale insulin subcut med order set - For TDI 30 - 59 units Blood Glucose: (Less than 70: Initiate Hypoglycemia Standing Orders) (70 - 149, administer 0 units) (150 - 199, administer 2 units) (200 - 249, administer 3 units) (250 - 299, administer 5 units) (300 - 349, administer 7 units) (Greater than 349, administer 8 units and Call Physician) 1046 (Not Given - Provider: Martina Benitez RN - Reason: Other)1627 (Given - Provider: Martina Benitez RN)213 (Not Given - Provider: Marge Leon RN - Reason: Order parameters not met) 1029 (Given - Provider: Harjinder Olmstead RN)1508 (Not Given - Provider: Harjinder Olmstead RN - Reason: Order parameters not met - Comment: pt hypoglycemic)2032 (Given - Provider: Sarah Guzman, RYAN)233 (Not Given - Provider: Sarah Guzman RN - Reason: Patient/family declined) 0935 (Not Given - Provider: Milli Bean RN - Reason: Order parameters not met) insulin lispro (HUMALOG) injection 1-4 Units 1-4 Units, Subcutaneous, 3 times daily before meals, First dose on Sun04/11/18 at 1130, Until Discontinued, BG-- 150--200-- GIVE 1 UNIT OF INSULIN BG-- 201--250-- GIVE 2 UNIT OF INSULIN BG-- 251--300-- GIVE 3 UNIT OF INSULIN Blood sugar above 300 give 4 units of insulin and call [facility] 1549 (Not Given - Provider: Milli Bean RN - Reason: Patient/family declined)1600 (Canceled Entry - Provider: Automatic Discharge Provider - Comment: Automatically canceled at discontinue of medication order) insulin lispro (HUMALOG) injection 4 Units (CANCELED) 4 Units, Subcutaneous, 3 times daily with meals, First dose on Sun04/10/18 at 1200, Until Discontinued, For sliding scale, activate Sliding Scale Insulin order set 0912 (Given - Provider: Harjinder Olmstead RN)1028 (Not Given - Provider: Harijnder Olmstead RN - Reason: Other - Comment: double charting)2032 (Not Given - Provider: Sarah Guzman RN - Reason: Patient/family declined) insulin lispro (HUMALOG) injection 6 Units 6 Units, Subcutaneous, 3 times daily before meals, First dose on Sun04/11/18 at 1130, Until Discontinued, For sliding scale, activate Sliding Scale Insulin order set 1549 (Not Given - Provider: Milli Bean RN - Reason: Patient/family declined)1600 (Canceled Entry - Provider: Automatic Discharge Provider - Comment: Automatically canceled at discontinue of medication order) magnesium oxide (MAG-OX) tablet 400 mg 400 mg, Oral, Daily, First dose on Sun04/10/18 at 1000, Until Discontinued 1100 (Given - Provider: Harjinder Olmstead RN) 0759 (Given - Provider: Milli Bean, RYAN) magnesium sulfate IVPB 2 g (COMPLETED) 2 g, Intravenous, at 25 mL/hr, Once, 1 dose, On Sun04/09/18 at 0815 0821 (New Bag - Provider: Martina Benitez, RN)1021 (Infusion Stop Time - Provider: Martina Benitez, RN) metoclopramide (REGLAN) tablet 10 mg 10 mg, Oral, 2 times daily before meals, First dose (after last modification) on Sun04/11/18 at 1600, Until Discontinued 1600 (Canceled Entry - Provider: Automatic Discharge Provider - Comment: Automatically canceled at discontinue of medication order) metroNIDAZOLE (FLAGYL) tablet 500 mg 500 mg, Oral, Every 12 hours scheduled (2 times per day), 14 doses, First dose on Sun04/09/18 at 2100, Last dose on Sun04/16/18 at 0900 212 (Given - Provider: Marge Leon, RYAN) 09 (Given - Provider: Harjinder Olmstead RN)2034 (Given - Provider: Sarah Guzman, RYAN) 075 (Given - Provider: Milli Bean RN) nitrofurantoin (macrocrystal-monohydrat e) (MACROBID) capsule 100 mg 100 mg, Oral, Every 12 hours scheduled (2 times per day), 10 doses, First dose (after last modification) on Sun04/09/18 at 1030, Last dose on Sun04/13/18 at 2100 1122 (Given - Provider: Martina Benitez RN)2128 (Given - Provider: Marge Leon RN) 09 (Given - Provider: Harjinder Olmstead RN)2034 (Given - Provider: Sarah Guzman, RYAN) 0759 (Given - Provider: Milli Bean RN) pantoprazole (PROTONIX) EC tablet 40 mg 40 mg, Oral, Daily, First dose on Sun04/10/18 at 1330, Until Discontinued 1351 (Given - Provider: Harjinder Olmstead RN) 0800 (Given - Provider: Milli Bean RN) piperacillin-tazobactam (ZOSYN) 3.375 g in sodium chloride 0.9 % 50 mL IVPB (CANCELED)(Linked Group 1) 3.375 g, Intravenous, Administer over 240 Minutes, Every 8 hours, First dose (after last modification) on Sun04/09/18 at 0000, Until Discontinued, Administer over 4 hours (extended infusion). 0004 (New Bag - Provider: Veronica Jiménez RN)0415 (Infusion Stop Time - Provider: Veronica Jiménez RN)0819 (New Bag - Provider: Martina Benitez RN)1738 (Infusion Stop Time - Provider: Maylin Fontaine RN) potassium chloride CR (KLOR-CON M) tablet 40 mEq (COMPLETED) 40 mEq, Oral, Once, 1 dose, On Sun04/09/18 at 0815 0820 (Given - Provider: Martina Benitez RN) pravastatin (PRAVACHOL) tablet 20 mg 20 mg, Oral, Every evening, First dose on Sun04/09/18 at 2100, Until Discontinued 2128 (Given - Provider: Marge Leon, RYNA) 2034 (Given - Provider: Sarah Guzman, RYAN) senna-docusate (SENOKOT-S) 8.6-50 MG tablet 1 tablet 1 tablet, Oral, Nightly at bedtime, First dose on Sun04/08/18 at 2100, Until Discontinued 2128 (Given - Provider: Marge Leon RN) 2035 (Not Given - Provider: Sarah Guzman RN - Reason: Patient/family declined) vancomycin (VANCOCIN) 750 mg in sodium chloride 0.9 % 250 mL IVPB (CANCELED) 750 mg, Intravenous, at 265 mL/hr, Every 12 hours, First dose on Sun04/08/18 at 1445, Until Discontinued 243 (New Bag - Provider: Veronica Jiménez, RYAN)0344 (Infusion Stop Time - Provider: Veronica Jiménez RN) Continuous Medication Order 04/09/2018 04/10/2018 04/11/2018 dextrose 5 % and 0.45 % NaCl with KCl 20 mEq infusion (CANCELED) at 250 mL/hr, Intravenous, Continuous, Starting on Sun04/08/18 at 1315, Until Sun04/09/18 at 0749, IV fluid #2 after glucose is less than 200 mg/dL. Do not give if potassium is greater than 5 mEq/L. 0022 (New Bag - Provider: Veronica Jiménez, RYAN)0415 (New Bag - Provider: Veronica Jiménez RN) insulin regular (NOVOLIN R/HUMULIN R) 1 Units/mL in sodium chloride 0.9 % 100 mL infusion (CANCELED) 0.05 Units/kg/hr ? 49.9 kg (2.495 mL/hr, rounded to 2.5 mL/hr), Intravenous, Continuous, Starting on Sun04/08/18 at 1345, Until Sun18 at 0747, Step 1 - Initial rate of 0.14 unit/kg/hr. Notify MD if glucose has not fallen by at least 10% from presenting value after one hour. Step 2 - When glucose first falls below 200 mg/dL REDUCE to 0.05 unit/kg/hr and notify MD. Step 3 - If any subsequent glucose above 200 mg/dL or below 150 mg/dL contact MD for orders 0220 (Rate/Dose Change - Provider: Veronica Jiménez RN) PRN Medication Order 04/09/2018 04/10/2018 04/11/2018 acetaminophen (TYLENOL) 160 MG/5ML solution 650 mg(Linked Group 2) 650 mg, Oral, Every 4 hours PRN, Mild pain (Scale 1 - 3), Starting on Sun04/08/18 at 1242, Until Dennise 04/11/18 at 1942, Give if unable to swallow tablets/capsules or if patient prefers liquid. Maximum dose of acetaminophen is 4000 mg from all sources in 24 hours. 2127 (See Alternative - Provider: Marge Leon RN) acetaminophen (TYLENOL) suppository 650 mg(Linked Group 2) 650 mg, Rectal, Every 4 hours PRN, Mild pain (Scale 1 - 3), Starting on Sun04/08/18 at 1242, Until Dennise 04/11/18 at 1942, Give if unable to take PO. Maximum dose of acetaminophen is 4000 mg from all sources in 24 hours. 2127 (See Alternative - Provider: Marge Leon RN) acetaminophen (TYLENOL) tablet 650 mg(Linked Group 2) 650 mg, Oral, Every 4 hours PRN, Mild pain (Scale 1 - 3), Starting on Sun04/08/18 at 1242, Until Dennise 04/11/18 at 1942, Maximum dose of acetaminophen is 4000 mg from all sources in 24 hours. 2127 (Given - Provider: Marge Leon RN) dextrose (GLUTOSE) 40 % oral gel 15-30 g 15-30 g, Oral, As needed, Low blood sugar, Starting on Sun04/08/18 at 1238, Until Dennise 04/11/18 at 1942, If patient is verbally responsive and taking thickened liquids or oral medications: Blood glucose less than 50 mg/dL - give 30 g (2 tubes), repeat until blood glucose reaches 70 mg/dL Blood glucose 50-69 mg/dL - give 15 g (1 tube), repeat until blood glucose reaches 70 mg/dL dextrose 50 % solution 25-50 mL 25-50 mL, Intravenous, As needed, Low blood sugar, Starting on Sun04/08/18 at 1238, Until Sun04/11/18 at 1942, If patient is verbally responsive and NPO or unable to swallow: Blood glucose less than 50 mg/dL - give 50 mL (1 syringe), repeat until blood glucose reaches 70 mg/dL Blood glucose 50-69 mg/dL - give 25 mL (0.5 syringe), repeat until blood glucose reaches 70 mg/dL If patient is verbally UNresponsive and NPO or unable to swallow: Blood glucose less than 70 mg/dL - give 50 mL (1 syringe), repeat until blood glucose reaches 70 mg/dL fentaNYL (SUBLIMAZE) injection 25 mcg (CANCELED) 25 mcg, Intravenous, Every 4 hours PRN, Severe pain (Scale 8 - 10), Starting on Sun04/08/18 at 1800, Until Sun04/09/18 at 1329, If intravenous (IV) route has been ordered, give over 1-2 minutes. 0109 (Given - Provider: Veronica Jiménez RN)0604 (Given - Provider: Veronica Jiménez RN) glucagon injection 1 mg 1 mg, Intramuscular, Once as needed, Other, Low blood sugar, 1 dose, Starting on Sun04/08/18 at 1238, Until Sun04/11/18 at 1942, If patient is verbally UNresponsive and no IV access with blood glucose less than 70 mg/dL. Do NOT repeat administration. hydrocodone-acetaminophe n (NORCO) 5-325 MG tablet 1 tablet 1 tablet, Oral, Every 6 hours PRN, Moderate pain (Scale 4 - 7), Starting on Sun04/09/18 at 2234, Until Sun04/11/18 at 1942, Maximum dose of acetaminophen is 4000 mg from all sources in 24 hours. 2242 (Given - Provider: Marge Leon RN) 0653 (Given - Provider: Marge Leon RN)1355 (Given - Provider: Katharyn S Havey, RN)2136 (Given - Provider: Sarah Guzman, RN) 0342 (Given - Provider: Sarah Guzman, RYAN)0981 (Given - Provider: Milli Bean RN) iopamidol (ISOVUE-370) 76 % injection 100 mL (COMPLETED) 100 mL, Intravenous, IMG once as needed, Contrast, 1 dose, Starting on Sun04/10/18 at 1747, Until Sun04/10/18 at 1747 1747 (Given - Provider: Katiana Fuentes, RTR) ipratropium-albuterol (DUONEB) 0.5-2.5 (3) MG/3ML nebulizer solution 3 mL 3 mL, Nebulization, Every 4 hours PRN, Shortness of breath, respiratory distress, Starting on Sun04/08/18 at 1242, Until Dennise 04/11/18 at 194 ondansetron (ZOFRAN) injection 4 mg 4 mg, Intravenous, Every 6 hours PRN, Nausea, Starting on Sun04/08/18 at 2034, Until Sun04/11/18 at 194, IV push over 2-5 minutes. 0557 (Given - Provider: Veronica Jiménez RN) Linked Groups Order Group 1: piperacillin-tazobactam (ZOSYN) 3.375 g in sodium chloride 0.9 % 50 mL IVPB (CANCELED)Jump to med 3.375 g, Intravenous, Administer over 240 Minutes, Every 8 hours, First dose (after last modification) on Sun04/09/18 at 0000, Until Discontinued, Administer over 4 hours (extended infusion). Group 2: acetaminophen (TYLENOL) tablet 650 mgJump to med 650 mg, Oral, Every 4 hours PRN, Mild pain (Scale 1 - 3), Starting on Sun04/08/18 at 1242, Until Dennise 04/11/18 at 1942, Maximum dose of acetaminophen is 4000 mg from all sources in 24 hours. Or acetaminophen (TYLENOL) suppository 650 mgJump to med 650 mg, Rectal, Every 4 hours PRN, Mild pain (Scale 1 - 3), Starting on Sun04/08/18 at 1242, Until Sun04/11/18 at 194, Give if unable to take PO. Maximum dose of acetaminophen is 4000 mg from all sources in 24 hours. Or acetaminophen (TYLENOL) 160 MG/5ML solution 650 mgJump to med 650 mg, Oral, Every 4 hours PRN, Mild pain (Scale 1 - 3), Starting on 04/08/18 at 1242, Until Dennise 04/11/18 at 1942, Give if unable to swallow tablets/capsules or if patient prefers liquid. Maximum dose of acetaminophen is 4000 mg from all sources in 24 hours. documented in this encounter
--- OUTSIDE RECORDS SUMMARY | 2024-08-03 01:11 | XMS_ITS | Encounter Summary ---
Author Organization [facility] Address [facility] [facility] 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 [address] [place] [address] Isaias Grier MD [address] [place] [id number] Social History Tobacco Use Types Packs/Day [...] as of this encounter Visit Diagnoses Diagnosis Other specified noninflammatory disorders of cervix uteri documented in this encounter
--- OUTSIDE RECORDS SUMMARY | 2024-08-03 01:11 | XMS_ITS | Encounter Summary ---
Author Organization [facility] Address [address] 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 Phone Unavailable Primary Care Provider Unavailabl e Encounter Details Date Type Department Care Team (Late st Contact Info) Description 12/07/2018 Abstract [facility] [address] [place] [address] Nahum Bang MD [address] [address] Social History Tobacco Use Types Packs/Day Years [...] Name Priority Date/Time Associated Diagnosis Comments URINALYSIS WI REFLEX TO CULTURE STAT 12/07/2018 2:25 PM CDT DRUG SCREEN RAPID STAT 12/07/2018 2:2 5 PM CDT COMPREHENSIVE METABOLIC PANEL STAT 12/07/2018 1:15 PM CDT CBC W/DIFF AUTOMATED STAT 12/07/2018 1:15 PM CDT LIPASE STAT 12/07/2018 1:15 PM CDT documented in this encounter Results * (ABNORMAL) URINALYSIS WI REFLEX TO CULTURE (12/07/2018 2:25 PM CDT) COLOR (U) YELLOW 12/07/2018 2:55 PM CDT [facility] TRANSPARENCY CLEAR 12/07/2018 2:55 PM CDT [facility] SPECIFIC GRAVITY (U) 1.020 1.000 - 1.025 12/07/2018 2:55 PM CDT [facility] U PH 7.0 5.0 - 8.0 12/07/2018 2:55 PM CDT [facility] LEUKOCYTES (U) NEGATIVE NEGATIVE 12/07/2018 2:55 PM CDT [facility] NITRITES NEGATIVE NEGATIVE 12/07/2018 2:55 PM CDT [facility] PROTEIN (U) NEGATIVE NEGATIVE 12/07/2018 2:55 PM CDT [facility] URINE GLUCOSE 2+(A) NEGATIVE 12/07/2018 2:55 PM CDT [facility] KETONES MG/DL (U) TRACE(A) NEGATIVE 12/07/2018 2:55 PM CDT [facility] UROBILINOGEN 1.0(H) <1.0 EU/DL 12/07/2018 2:55 PM CDT [facility] BILIRUBIN (U) NEGATIVE NEGATIVE 12/07/2018 2:55 PM CDT [facility] BLOOD (U) NEGATIVE NEGATIVE 12/07/2018 2:55 PM CDT [facility] WBC/HPF 0-5 0 - 5 /HPF 12/07/2018 2:55 PM CDT [facility] EPI/HPF OCCASIONAL /LPF 12/07/2018 2:55 PM CDT [facility] MUCUS PRESENT 12/07/2018 2:55 PM CDT [facility] CULTURE & SENSITIVITY INDICATED? NOT INDICATED 12/07/2018 2:55 PM CDT [facility] OTHER (type in comments) 12/07/2018 2:25 PM CDT 12/07/2018 2:42 PM CDT Comment:URINE SPECIMEN~URINE SPECIMEN us Generic Conversion Md MIR URINE ORDERABLES Final Result [facility] [address] [place] [address], * (ABNORMAL) DRUG SCREEN RAPID (12/07/2018 2:25 PM CDT) CANNABINOIDS SCREEN (U) POSITIVE(A) NEGATIVE 12/07/2018 3:04 PM CDT [facility] PHENCYCLIDINE PCP (U) NEGATIVE NEGATIVE 12/07/2018 3:04 PM CDT [facility] COCAINE METABOLITES (U) NEGATIVE NEGATIVE 12/07/2018 3:04 PM CDT [facility] METHAMPHETAMINE (U) NEGATIVE NEGATIVE 12/07/2018 3:04 PM CDT [facility] OPIATE SCREEN (U) NEGATIVE NEGATIVE 019 3:04 PM CDT [facility] AMPHETAMINE (U) NEGATIVE NEGATIVE 9 3:04 PM CDT [facility] BENZODIAZEPINES SCREEN (U) NEGATIVE NEGATIVE 12/07/2018 3:04 PM CDT [facility] TRICYCLIC ANTIDEPRESSANT SCREEN (U) NEGATIVE NEGATIVE 12/07/2018 3:04 PM CDT [facility] METHADONE (U) NEGATIVE NEGATIVE 12/07/2018 3:04 PM CDT [facility] BARBITURATES SCREEN (U) NEGATIVE NEGATIVE 12/07/2018 3:04 PM CDT [facility] OXYCODONE SCREEN (U) NEGATIVE NEGATIVE 12/07/2018 3:04 PM CDT [facility] PROPOXYPHENE SCREEN (U) NEGATIVE NEGATIVE 12/07/2018 3:04 PM CDT [facility] URINE TOX COMMENT THIS TEST METHODOLOGY IS DESIGNED AND OFFERED A RAPID TURNAROUND, QUALITATIVE SCREENING PROCEDURE TO AID IN THE IMMEDIATE MEDICAL ASSESSMENT OF PATIENTS SUSPECTED OF SUBSTANCE ABUSE. 12/07/2018 2:26 PM CDT [facility] Comment: CLINICAL CONSIDERATION AND PROFESSIONAL JUDGMENT MUST BE APPLIED TO ANY DRUG OF ABUSE TEST RESULT, BOTH POSITIVE AND NEGATIVE. CONFIRMATORY QUANTITATIVE RESULTS ARE AVAILABLE THROUGH OUR [facility]. 12/07/2018 2:25 PM CDT 12/07/2018 2:42 PM CDT us Generic Conversion Md MIR URINE ORDERABLES Final Result Performing Organization Address [facility]/ZIP Co de Phone Number [facility] [address] [place] [address], [place] [phone] * (ABNORMAL) LIPASE (12/07/2018 1:15 PM CDT) LIPASE 68(L) 73 - 393 UNITS/L 12/07/2018 2:04 PM CDT [facility] SERUM OR PLASMA SPECIMEN / Unknown 12/07/2018 1:15 PM CDT 12/07/2018 1:45 PM CDT us Generic Conversion Md MIR LABORATORY Final R esult Performing Organization Address [facility] Co de Phone Number [facility] [address] [place] [address], [place] [phone] * (ABNORMAL) COMPREHENSIVE METABOLIC PANEL (12/07/2018 1:15 PM CDT) SODIUM S/P/B 135(L) 136 - 145 MMOL/L 12/07/2018 2:04 PM CDT [facility] POTASSIUM S/P/B 3.8 3.5 - 5.1 MMOL/L 12/07/2018 2:04 PM CDT [facility] CHLORIDE S/P/B 99 98 - 107 MMOL/L 12/07/2018 2:04 PM CDT [facility] CO2 24.5 21.0 - 32.0 MMOL/L 12/07/2018 2:04 PM CDT [facility] GLUCOSE 148(H) 70 - 140 MG/DL 12/07/2018 2:04 [facility] BUN 13 6 - 24 MG/DL 12/07/2018 2:04 PM [facility] CREATININE S/P/B 0.80 0.55 - 1.02 MG/DL 12/07/2018 2:04 PM [facility] CALCIUM S/P/B 9.6 8.4 - 10.5 MG/DL 12/07/2018 2:04 PM [facility] BILIRUBIN TOTAL S/P/B 0.6 0.2 - 1.0 MG/DL 12/07/2018 2:04 PM [facility] ALKALINE PHOSPHATASE S/P/B 87 37 - 98 U/L 12/07/2018 2:04 PM [facility] AST 20 15 - 37 U/L 12/07/2018 2:04 PM [facility] ALT 27 14 - 59 U/L 12/07/2018 2:04 PM [facility] TOTAL PROTEIN S/P/B 8.7(H) 6.4 - 8.2 G/DL 12/07/2018 2:04 PM [facility] ALBUMIN S/P/B 4.3 3.4 - 5.0 G/DL 12/07/2018 2:04 PM [facility] ANION GAP 11.5 5.0 - 15.0 MMOL/L 12/07/2018 2:04 PM [facility] OSMOLALITY (CALC) 283 MOSM/KG 12/07/2018 2:04 PM [facility] Comment:REFERENCE RANGE NOT ESTABLISHED EGFR NON-AFR. AMER. >90 >89 ML/MIN/1 .73 M2 12/07/2018 2:04 PM [facility] EGFR AFR. AMER. >90 >89 ML/MIN/1 .73 M2 12/07/2018 2:04 PM [facility] GFR NOTES THE ESTIMATED GFR IS CALCULATED USING THE 2009 CKD-EPI EQUATION. THE FOLLOWING CATEGORIES FOR GRADING RENAL FUNCTION ARE RECOMMENDED BY THE INTERNATIONAL SOCIETY OF NEPHROLOGY (KDIGO 2012 CLINICAL PRACTICE GUIDELINE). 12/07/2018 2:04 PM [facility] Comment: G1,NORMAL OR HIGH: >89 ml/min/1.73 m2G2,MILDLY DECREASED: 60-89 ml/min/1.73 m2G3A,MILDLY TO MODERATELY DECREASED: 45-59 ml/min/1.73 m2G3B,MODERATELY TO SEVERELY DECREASED: 30-44 ml/min/1.73 m2G4,SEVERELY DECREASED: 15-29 ml/min/1.73 m2G5,KIDNEY FAILURE: <15 ml/min/1.73 m2 PLASMA SPECIMEN / Unknown 12/07/2018 1:15 PM CDT 12/07/2018 1:45 PM CDT us Generic Conversion Md MIR LABORATORY Final R esult [facility] [address] [place] [address], * CBC W/DIFF AUTOMATED (12/07/2018 1:15 PM CDT) WBC 6.1 4.5 - 10.8 x10'3/uL 12/07/2018 1:47 PM CDT [facility] RBC 4.71 4.10 - 5.40 x10'6/uL 12/07/2018 1:47 PM CDT [facility] HGB 14.6 12.0 - 16.0 G/DL 12/07/2018 1:47 PM CDT [facility] HCT 42.4 36.0 - 47.0 % 12/07/2018 1:47 PM CDT [facility] MCV 90.0 78.0 - 100.0 FL 12/07/2018 1:47 PM CDT [facility] MCH 31.0 27.0 - 31.0 PG 12/07/2018 1:47 PM CDT [facility] MCHC 34.4 33.0 - 36.0 G/DL 12/07/2018 1:47 PM CDT [facility] RDW 12.2 11.5 - 14.5 % 12/07/2018 1:47 PM CDT [facility] PLT 283 150 - 350 x10'3/uL 12/07/2018 1:47 PM CDT [facility] MPV 10.0 7.4 - 10.4 FL 12/07/2018 1:47 PM CDT [facility] DIFFERENTIAL COMMENT NORMAL REFERENCE RANGE NOT ESTABLISHED FOR THE PROPORTIONAL LEUKOCYTE DIFFERENTIAL. 12/07/2018 1:47 PM CDT [facility] SEG NEUTROPHILS 51.6 % 9 1:47 PM CDT [facility] LYMPHOCYTES 36.6 % 12/07/2018 1:47 PM CDT [facility] MONOCYTES 8.3 % 12/07/2018 1:47 PM CDT [facility] EOSINOPHILS 2.5 % 12/07/2018 1:47 PM CDT [facility] BASOPHILS 1.0 % 12/07/2018 1:47 PM CDT [facility] IMMATURE GRANS % 0.0 % 12/08/19 19 1:47 PM CDT [facility] NRBC 0.0 % 12/07/2018 1:47 PM CDT [facility] ABS. NEUTROPHILS 3.16 1.60 - 8.30 x10'3/uL 12/07/2018 1:47 PM CDT [facility] ABS. LYMPHOCYTES 2.24 0.80 - 4.70 x10'3/uL 12/07/2018 1:47 PM CDT [facility] ABS. MONOCYTES 0.51 0.00 - 1.50 x10'3/uL 12/07/2018 1:47 PM CDT [facility] ABS. EOSINOPHILS 0.15 0.00 - 0.40 x10'3/uL 12/07/2018 1:47 PM CDT [facility] ABS. BASOPHILS 0.06 0.00 - 0.20 x10'3/uL 12/07/2018 1:47 PM CDT [facility] ABS. IMMATURE GRANULOCYTES 0.00 0.00 - 0.03 x10'3/uL 12/07/2018 1:47 PM CDT [facility] ABS. NUCLEATED RBC'S 0.00 0.00 x10'3/uL 12/07/2018 1:47 PM CDT [facility] OTHER (type in comments) 12/07/2018 1:15 PM CDT 12/07/2018 1:45 PM CDT Comment:WHOLE BLOOD SAMPLE us Generic Conversion Md MIR LABORATORY Final R esult [facility] [address] [place] [address], documented in this encounter Visit Diagnoses Not on filedocumented in this encounter
--- OUTSIDE RECORDS SUMMARY | 2024-08-03 01:11 | XMS_ITS | Encounter Summary ---
Author Organization [facility] Address [address] [place] [address]. [place] [address] [place] [address] Care Team Providers Care Pulmonary Fellow Name Role Phone Isaias Grier MD Primary Care Provider Reason for Visit * Reason Comments Abdominal Pain Encounter Details Date Type Department Care Team ([facility] st Contact Info) Description 06/04/2019 8:19 AM STEEL WOOL MACHINE OPERATOR - 06/04/2019 10:34 AM [facility] Emergency [facility] [place], [place] [id number] Sami Aguilera MD [address] [place] [id number] Abdominal Pain Discharge Disposition: Home or Self [...] Sign Reading Time Taken Comments Blood Pressure 92/65 06/04/2019 10:30 AM STEEL WOOL MACHINE OPERATOR Pulse 84 06/04/2019 9:45 AM STEEL WOOL MACHINE OPERATOR Temperature 36.3 ??C (97.4 ??F) 06/04/2019 8:20 AM CS T Respiratory Rate 18 06/04/2019 9:45 AM STEEL WOOL MACHINE OPERATOR Oxygen Saturation 100% 06/04/2019 10:30 AM STEEL WOOL MACHINE OPERATOR Inhaled Oxygen Concentration - - Weight 49.9 kg (110 lb) 06/04/2019 8:20 AM STEEL WOOL MACHINE OPERATOR Height 165.1 cm (5' 5 ) 06/04/2019 8:20 AM STEEL WOOL MACHINE OPERATOR Body Mass Index 18.3 06/04/2019 8:20 AM STEEL WOOL MACHINE OPERATOR documented in this encounter Discharge Instructions * Attachments The following attachments cannot be sent through Care Everywhere. * Severe Abdominal Pain (Georgian) documented in this encounter Medications at Time of Discharge levothyroxine 25 MCG tablet Take 40 mcg by mouth daily. 4 9 pantoprazole EC 40 MG tablet Take 40 mg by mouth daily. 3 9 B-D UF III MINI PEN NEEDLES 31G X 5 MM Misc USE FOR INJECTIONS FOUR TIMES A DAY 5 8 03/01/20 20 Blood Glucose Monitoring Suppl (ONE TOUCH ULTRA MINI) w/Device Kit see administration instructions. 0 7 03/01/20 20 citalopram 20 MG tablet Take 20 mg by mouth daily. 3 9 10/10/19 20 fluconazole 150 MG tablet Take 150 mg by mouth every other day. 1 9 10/10/19 20 HM MAGNESIUM CITRATE 1.745 GM/30ML Solution USE DIRECTED PER INSTRUCTIONS PROVIDED SEPARATELY 0 9 10/10/19 20 hydrocodone-acetami nophen 5-325 MG tabletIndications:A cute Pain < 3 Day Supply Take 1-2 tablets by mouth every 6 (six) hours as needed. Indications: Acute Pain < 3 Day Supply 12 tablet 9 06/10/20 19 IBU 800 MG tablet TAKE 1 TABLET BY MOUTH THREE TIMES A DAY NEEDED 0 9 12/04/19 20 insulin glargine 100 UNIT/ML injection (VIAL) Inject 20 Units into the skin 2 (two) times daily. 12/04/19 insulin lispro (ADMELOG) 100 UNIT/ML injection (VIAL) 85 unit daily as directed per information provided seperatly per insulin pump, max daily dose 85 Unit 8 12/04/19 20 insulin lispro 100 UNIT/ML injection (VIAL) Inject 10 Units into the skin 3 (three) times daily before meals. This is average dose, but uses sliding scale with it 12/04/19 KETOCARE Strip USE FOR TESTING DIRECTED 0 7 03/01/20 metroNIDAZOLE 0.75 % vaginal gel INSTILL ONE APPLICATORFUL VAGINALLY EVERY DAY AT BEDTIME 1 9 10/10/19 NOVOLOG FLEXPEN 100 UNIT/ML injection (PEN) INJECT THREE TIMES A DAY AFTER MEALS PER INSULIN TO CARB RATIO AND SLIDING SCALE. UP TO 90 UNITS DAILY 0 8 07/27/19 ondansetron 4 MG disintegrating tablet dissolve 1 tablet BY MOUTH EVERY 6 HOURS NEEDED FOR NAUSEA / VOMITING 0 8 10/10/19 ondansetron 4 MG tablet TAKE 1 TABLET BY MOUTH THREE TIMES A DAY NEEDED FOR NAUSEA / VOMITING 0 8 07/27/19 ONE TOUCH ULTRA TEST STRIPS test strip CHECK BLOOD SUGARS FOUR TIMES A DAY NEEDED 1 8 03/01/[address]ICA LANCETS [address] [facility] TEST BLOOD BLOOD SUGAR FOUR TIMES A DAY AND NEEDED 1 7 03/01/20 traMADol 50 MG tablet TAKE 1 TO 2 TABLETS BY MOUTH TWO TIMES A DAY 0 9 10/10/19 documented as of this encounter ED Notes * Martina Lee RN - 06/04/2019 9:39 AM CST Patient to xray 0935 L WOOL MACHINE OPERATOR * Martina Lee RN - 06/04/2019 8:20 AM CST amb to er with c/o abdominal pain for a week, worse today. Threw up once this am. States it was bloody. Pain to center of abdomen 03/01. Blood sugar 305. L WOOL MACHINE OPERATOR L WOOL MACHINE OPERATOR * Sami Aguilera MD - 06/04/2019 8:17 AM CST eMERGENCY dEPARTMENT eNCOUnter CHIEF COMPLAINT Chief Complaint Patient presents with ??? Abdominal Pain HPI HPI Steph Camacho is a 28-year-old female who presents to the ER with a complaint of 1 week of abdominal pain getting progressively worse. Patient states the pain is not related to eating urinating ormoving her bowels. Its in the lower abdomen and nonradiating. She is had a previous section as well as cholecystectomy. She states her blood sugar was high this morning but in general is been well controlled. She is been prescribed tramadol for her pain but is not helping. No other complaints this time. ALLERGIES Allergies Allergen Reactions ??? Peanut-Containing Drug Products Anaphylaxis ??? Latex Hives CURRENT MEDICATIONS Current Outpatient Medications Medication Sig ??? hydrocodone-acetaminophen 5-325 MG tablet Take 1-2 tablets by mouth every 6 (six) hours as needed. Indications: Acute Pain < 3 Day Supply ??? B-D UF III MINI PEN NEEDLES 31G X 5 MM Misc USE FOR INJECTIONS FOUR TIMES A DAY ??? Blood Glucose Monitoring Suppl (ONE TOUCH ULTRA MINI) w/Device Kit see administration instructions. ??? insulin glargine 100 UNIT/ML injection (VIAL) Inject 20 Units into the skin 2 (two) times daily. ??? insulin lispro 100 UNIT/ML injection (VIAL) Inject 10 Units into the skin 3 (three) times dailybefore meals. This is average dose, but uses sliding scale with it ??? KETOCARE Strip USE FOR TESTING DIRECTED [...] No ??? Sexual activity: Not on file Lifestyle ??? Physical activity: Days per week: Not on file Minutes per session: Not on file ??? Stress: Not on file Relationships ??? Social connections: Talks on phone: Not on file Gets together: Not on file Attends mandaen service: Not on file Active member of [...] HPI. PHYSICAL EXAM Physical Exam Filed Vitals: 06/04/19 0830 06/04/19 0900 06/04/19 0915 06/04/19 0945 BP: 113/80 (!) 170/75 107/75 100/76 Pulse: 84 Resp: 18 Temp: TempSrc: SpO2: 100% 100% 99% 100% Weight: Height: The patient is a well developed and well nourished adult female in mild painful distress, alert andoriented. HEENT: PERRL, EOMI Nose without drainage Throat without lesions, mucous membranes moist NECK: Supple without adenopathy or rigidity CHEST: Lungs clear and equal to auscultation Heart regular rate and rhythm without murmur ABD: Soft, NABS, mild diffuse tenderness without rebound guarding or mass EXT: No clubbing, cyanosis, edema NEURO: CN II-XII intact, no focal weakness SKIN: No rash or significant lesions EKG RADIOLOGY XR ABD FLAT+UPRIGHT Final Result by User, [id number] (06/04 948) Examination: Two-view abdomen. Exam time: 0935 hours. Clinical history: Abdominal and low back pain. Vomiting. Comparison: 09/02/2014. Technique: AP supine and upright views. Findings: The visualized lungs are clear. There is no free air. The bowel gas pattern is unremarkable. No organomegaly, mass or significant calcification is identified. The bony structures are unremarkable for age. Clips from cholecystectomy are again evident. IMPRESSION: No acute findings. Interpreted By: Otis Anders, 06/04/2019 9:46 AM LABS Results for orders placed or performed during the hospital encounter of 06/04/19 CBC W/DIFF AUTOMATED Result Value Ref Range WBC 7.1 4.5 - 10.8 x10'3/uL RBC 5.22 4.10 - 5.40 x10'6/uL HGB 16.3 (H) 12.0 - 16.0 G/DL HCT 47.3 (H) 36.0 - 47.0 % MCV 90.6 78.0 - 100.0 FL MCH 31.2 (H) 27.0 - 31.0 PG MCHC 34.5 33.0 - 36.0 G/DL RDW 12.1 11.5 - 14.5 % PLT 355 (H) 150 - 350 x10'3/uL MPV 10.4 7.4 - 10.4 FL Differential Comment NORMAL REFERENCE RANGE NOT ESTABLISHED FOR THE PROPORTIONAL LEUKOCYTE DIFFERENTIAL. SEG NEUTROPHILS 63.7 % LYMPHOCYTES 26.6 % MONOCYTES 7.6 % EOSINOPHILS 1.0 % BASOPHILS 0.8 % IMMATURE GRANS 0.3 % NRBC 0.0 % ABS. NEUTROPHILS 4.55 1.60 - 8.30 x10'3/uL ABS. LYMPHOCYTES 1.90 0.80 - 4.70 x10'3/uL ABS. MONOCYTES 0.54 0.00 - 1.50 x10'3/uL ABS. EOSINOPHILS 0.07 0.00 - 0.40 x10'3/uL ABS. BASOPHILS 0.06 0.00 - 0.20 x10'3/uL ABS. IMMATURE GRANULOCYTES 0.02 0.00 - 0.03 x10'3/uL ABS. NUCLEATED RBC'S 0.00 0.00 x10'3/uL COMPREHENSIVE METABOLIC PANEL Result Value Ref Range SODIUM 135 (L) 136 - 145 MMOL/L POTASSIUM 4.7 3.5 - 5.1 MMOL/L CHLORIDE 96 (L) 98 - 107 MMOL/L CO2 28.3 21.0 - 32.0 MMOL/L GLUCOSE 358 (H) 70 - 99 MG/DL BUN 20 6 - 24 MG/DL CREATININE 0.87 0.55 - 1.02 MG/DL CALCIUM 9.8 8.4 - 10.5 MG/DL TOTAL BILIRUBIN 0.8 0.2 - 1.0 MG/DL ALK PHOS 100 (H) 37 - 98 U/L AST 28 15 - 37 U/L ALT 31 14 - 59 U/L TOTAL PROTEIN 8.9 (H) 6.4 - 8.2 G/DL ALBUMIN 4.2 3.4 - 5.0 G/DL ANION GAP 10.7 5.0 - 15.0 MMOL/L OSMOLALITY (CALC) 297 MOSM/KG eGFR Non-Afr. Amer. 89 (L) >89 ML/MIN/1.73 M2 eGFR Afr. Amer. >90 >89 ML/MIN/1.73 M2 GFR NOTES THE ESTIMATED GFR IS CALCULATED USING THE 2009 CKD-EPI EQUATION. THE FOLLOWING CATEGORIES FOR GRADING RENAL FUNCTION ARE RECOMMENDED BY THE INTERNATIONAL SOCIETY OF NEPHROLOGY (KDIGO 2012 CLINICAL PRACTICE GUIDELINE). LIPASE Result Value Ref Range LIPASE 71 (L) 73 - 393 UNITS/L BETA-HYDROXYBUTYRATE Result Value Ref Range BETA-HYDROXYBUTYRATE 0.7 (H) 0.0 - 0.3 MMOL/L Blood gas, venous Result Value Ref Range O2 Sat.-Venous 29 (L) 40 - 70 % pH-Venous 7.37 7.35 - 7.45 PC02 VENOUS 49.7 41.0 - 51.0 MMHG PO2 VENOUS 25.0 20.0 - 40.0 MM HG VENOUS BASE EXCESS 2.0 MMOL/L Bicarb-Venous 27.9 22.0 - 29.0 MMOL/L TCO2 29.4 (H) 25.0 - 29.0 MMOL/L LITER FLOW ROOM AIR TEST URINE Result Value Ref Range PREG TEST NEGATIVE Specific [place] (U) >1.030 URINALYSIS WI REFLEX TO CULTURE Result Value Ref Range COLOR YELLOW TRANSPARENCY CLEAR Specific [place] (U) 1.030 (H) 1.000 - 1.025 U PH 5.5 5.0 - 8.0 LEUKOCYTE ESTERASE NEGATIVE NEGATIVE NITRITES NEGATIVE NEGATIVE PROTEIN, URINE 2+ (A) NEGATIVE URINE GLUCOSE 2+ (A) NEGATIVE U KETONES 1+ (A) NEGATIVE UROBILINOGEN 0.2 <1.0 EU/DL BLOOD 2+ (A) NEGATIVE WBC/HPF 0-5 0 - 5 /HPF RBC/HPF 5-10 (A) 0 - 5 /HPF EPI/HPF MANY /LPF BACTERIA (URINE) 1+ /HPF MUCUS PRESENT Urine Bilirubin NEGATIVE NEGATIVE CULTURE & SENSITIVITY INDICATED? NOT INDICATED POCT glucose Result Value Ref Range GLUCOSE POC 305 (H) 70 - 99 MG/DL POCT glucose Result Value Ref Range GLUCOSE POC 294 (H) 70 - 99 MG/DL ED MEDICATIONS Medications sodium chloride 0.9% bolus infusion SOLN 1,000 mL (0 mLs Intravenous Infusion Stop Time 06/04/19957) morphine injection 4 mg (4 mg Intravenous Given 06/04/19 0859) ondansetron (ZOFRAN) injection 4 mg (4 mg Intravenous Given 06/04/19 0858) insulin regular (NOVOLIN R/HUMULIN R) injection 5 Units (5 Units Intravenous Given 06/04/19 0948) morphine injection 4 mg (4 mg Intravenous Given 06/04/19 1004) PROCEDURES Procedures CONSULTS: ED COURSE & MEDICAL DECISION MAKING MDM Patient with hyperglycemia but no sign of acidosis and normal anion gap. In terms of her abdominal pain is unclear to me what is causing it and I do not feel that she needs a CT as she is had severalin the past since all her labs are really normal aside from the elevated blood sugar. She states that the pain is mainly around her menstrual cycle and so likely gynecological causes need to be further investigated. At this point time she is feeling better after pain medication and her blood sugarsdown so we will discharge her and she will follow-up with either her primary care physician or hardboard grinder for further evaluation. FINAL IMPRESSION SNOMED CT(R) 1. Abdominal pain ABDOMINAL PAIN 2. Hyperglycemia HYPERGLYCEMIA Isaias Grier MD [address] [facility] [id number] Schedule an appointment as soon as possible for a visit New Prescriptions HYDROCODONE-ACETAMINOPHEN 5-325 MG TABLET Take 1-2 tablets by mouth every 6 (six) hours as needed. Indications: Acute Pain < 3 Day Supply Sami Aguilera MD 06/04/19 1028 L WOOL MACHINE OPERATOR documented in this encounter Plan of Treatment Not on file documented as of this encounter Procedures Procedure Name Priority Date/Time Associated Diagnosis Comments POCT GLUCOSE - ALARCON DOCKED DEVICE Routine 06/04/2019 9:47 AM STEEL WOOL MACHINE OPERATOR XR ABD FLAT+UPRIGHT STAT 06/04/2019 9 :42 AM STEEL WOOL MACHINE OPERATOR BETA-HYDROXYBUTYRATE STAT 06/04/2019 8:40 AM STEEL WOOL MACHINE OPERATOR BLOOD GAS, VENOUS STAT 06/04/2019 8:4 0 AM STEEL WOOL MACHINE OPERATOR COMPREHENSIVE METABOLIC PANEL STAT 06/04/2019 8:40 AM STEEL WOOL MACHINE OPERATOR CBC W/DIFF AUTOMATED STAT 06/04/2019 8:40 AM STEEL WOOL MACHINE OPERATOR LIPASE STAT 06/04/2019 8:40 AM STEEL WOOL MACHINE OPERATOR URINALYSIS WI REFLEX TO CULTURE STAT 06/04/2019 8:30 AM STEEL WOOL MACHINE OPERATOR TEST URINE STAT 06/04/2019 8:30 AM STEEL WOOL MACHINE OPERATOR POCT GLUCOSE - ALARCON DOCKED DEVICE Routine 06/04/2019 8:23 AM STEEL WOOL MACHINE OPERATOR documented in this encounter Results * (ABNORMAL) POCT glucose (06/04/2019 9:47 AM STEEL WOOL MACHINE OPERATOR) GLUCOSE POC 294(H) 70 - 99 MG/DL 06/04/2019 9:51 AM STEEL WOOL MACHINE OPERATOR [facility] INTERFACE 06/04/2019 9:47 AM STEEL WOOL MACHINE OPERATOR us Sami Aguilera MD POCT ORDERABLES - DEVICE Lavern l Result [facility] INTERFACE US * XR ABD FLAT+UPRIGHT (06/04/2019 9:42 AM STEEL WOOL MACHINE OPERATOR) Anatomical Region Laterality Modality Abdomen Radiographic Angela ging 06/04/2019 9:46 AM STEEL WOOL MACHINE OPERATOR Impressions 06/04/2019 9:47 AM STEEL WOOL MACHINE OPERATOR IMPRESSION: No acute findings. Interpreted By: Otis Anders, 06/04/2019 9:46 AM Narrative 06/04/2019 9:47 AM STEEL WOOL MACHINE OPERATOR Examination: Two-view abdomen. Exam time: 0935 hours. Clinical history: Abdominal and low back pain. Vomiting. Comparison: 09/02/2014. Technique: AP supine and upright views. Findings: The visualized lungs are clear. There is no free air. The bowel gas pattern is unremarkable. No organomegaly, mass or significant calcification is identified. The bony structures are unremarkable for age. Clips from cholecystectomy are again evident. Procedure Note Otis Anders MD - 06/04/2019 Examination: Two-view abdomen. Exam time: 0935 hours. Clinical history: Abdominal and low back pain. Vomiting. Comparison: 09/02/2014. Technique: AP supine and upright views. Findings: The visualized lungs are clear. There is no free air. Thebowel gas pattern is unremarkable. No organomegaly, mass or significant calcification is identified. The bony structures are unremarkable forage. Clips from cholecystectomy are again evident. IMPRESSION: No acute findings. Interpreted By: Otis Anders, 06/04/2019 9:46 AM Sami Aguilera MD GENERAL IMAGING Final Result * (ABNORMAL) Blood gas, venous (06/04/2019 8:40 AM STEEL WOOL MACHINE OPERATOR) O2 SAT VENOUS 29(L) 40 - 70 % 06/04/2019 8:53 AM STEEL WOOL MACHINE OPERATOR [facility] PH VENOUS 7.37 7.35 - 7.45 06/04/2019 8:53 AM [facility] PCO2 VENOUS 49.7 41.0 - 51.0 MMHG 06/04/2019 8:53 AM [facility] PO2 VENOUS 25.0 20.0 - 40.0 MM HG 06/04/2019 8:53 AM [facility] VENOUS BASE EXCESS 2.0 MMOL/L 06/04/2019 8:53 AM [facility] BICARB VENOUS 27.9 22.0 - 29.0 MMOL/L 06/04/2019 8:53 AM [facility] TCO2 29.4(H) 25.0 - 29.0 MMOL/L 06/04/2019 8:53 AM [facility] LITER FLOW ROOM AIR 06/04/2019 8:48 AM [facility] Blood specimen (specimen) 06/04/2019 8:40 AM STEEL WOOL MACHINE OPERATOR us Sami Aguilera MD LABORATORY Final Result Performing Organization Address City/[facility]/ZIP Co de Phone Number [facility] [address] [place] [address], * (ABNORMAL) BETA-HYDROXYBUTYRATE (06/04/2019 8:40 AM STEEL WOOL MACHINE OPERATOR) BETA-HYDROXYBU TYRATE 0.7(H) 0.0 - 0.3 MMOL/L 06/04/2019 8:53 AM STEEL WOOL MACHINE OPERATOR [facility] 06/04/2019 8:40 AM STEEL WOOL MACHINE OPERATOR us Sami Aguilera MD LABORATORY Final Result [facility] [address] [place] [address], * (ABNORMAL) LIPASE (06/04/2019 8:40 AM STEEL WOOL MACHINE OPERATOR) LIPASE 71(L) 73 - 393 UNITS/L 06/04/2019 9:21 AM STEEL WOOL MACHINE OPERATOR [facility] 06/04/2019 8:40 AM STEEL WOOL MACHINE OPERATOR us Sami Aguilera MD LABORATORY Final Result [facility] [address] [place] [address], * (ABNORMAL) COMPREHENSIVE METABOLIC PANEL (06/04/2019 8:40 AM STEEL WOOL MACHINE OPERATOR) SODIUM S/P/B 135(L) 136 - 145 MMOL/L 06/04/2019 9:11 AM [facility] POTASSIUM S/P/B 4.7 3.5 - 5.1 MMOL/L 06/04/2019 9:11 AM [facility] Comment:SLIGHT HEMOLYSIS, RE SULT MAY BE AFFECTED. CHLORIDE S/P/B 96(L) 98 - 107 MMOL/L 06/04/2019 9:11 AM [facility] CO2 28.3 21.0 - 32.0 MMOL/L 06/04/2019 9:11 AM [facility] GLUCOSE 358(H) 70 - 99 MG/DL 06/04/2019 9:11 AM [facility] Comment: FASTING GLUCOSE 100 TO 125 MG/DL IS CONSISTENT WITH IMPAIRED FASTING GLUCOSE. FASTING GLUCOSE >125 MG/DL IS CONSISTENT WITH DIABETES. RANDOM GLUCOSE >200 MG/DL WITH HYPERGLYCEMIC SYMPTOMS IS CONSISTENT WITH DIABETES. PER ADA GUIDELINES BUN 20 6 - 24 MG/DL 06/04/2019 9:11 AM [facility] CREATININE S/P/B 0.87 0.55 - 1.02 MG/DL 06/04/2019 9:11 AM [facility] CALCIUM S/P/B 9.8 8.4 - 10.5 MG/DL 06/04/2019 9:11 AM [facility] BILIRUBIN TOTAL S/P/B 0.8 0.2 - 1.0 MG/DL 06/04/2019 9:11 AM [facility] ALKALINE PHOSPHATASE S/P/B 100(H) 37 - 98 U/L 06/04/2019 9:11 AM [facility] AST 28 15 - 37 U/L 06/04/2019 9:11 AM [facility] ALT 31 14 - 59 U/L 06/04/2019 9:11 AM [facility] TOTAL PROTEIN S/P/B 8.9(H) 6.4 - 8.2 G/DL 06/04/2019 9:11 AM [facility] ALBUMIN S/P/B 4.2 3.4 - 5.0 G/DL 06/04/2019 9:11 AM [facility] ANION GAP 10.7 5.0 - 15.0 MMOL/L 06/04/2019 9:11 AM [facility] OSMOLALITY (CALC) 297 MOSM/KG 06/04/2019 9:11 AM [facility] Comment:REFERENCE RANGE NOT ESTABLISHED EGFR NON-AFR. AMER. 89(L) >89 ML/MIN/1 .73 M2 06/04/2019 9:11 AM STEEL WOOL MACHINE OPERATOR [facility] EGFR AFR. AMER. >90 >89 ML/MIN/1 .73 M2 06/04/2019 9:11 AM [facility] GFR NOTES THE ESTIMATED GFR IS CALCULATED USING THE 2009 CKD-EPI EQUATION. THE FOLLOWING CATEGORIES FOR GRADING RENAL FUNCTION ARE RECOMMENDED BY THE INTERNATIONAL SOCIETY OF NEPHROLOGY (KDIGO 2012 CLINICAL PRACTICE GUIDELINE). 06/04/2019 9:11 AM [facility] Comment: G1,NORMAL OR HIGH: >89 ml/min/1.73 m2 G2,MILDLY DECREASED: 60-89 ml/min/1.73 m2 G3A,MILDLY TO MODERATELY DECREASED: 45-59 ml/min/1.73 m2 G3B,MODERATELY TO SEVERELY DECREASED: 30-44 ml/min/1.73 m2 G4,SEVERELY DECREASED: 15-29 ml/min/1.73 m2 G5,KIDNEY FAILURE: <15 ml/min/1.73 m2 06/04/2019 8:40 AM STEEL WOOL MACHINE OPERATOR us Sami Aguilera MD LABORATORY Final Result [facility] [address] [place] [address], * (ABNORMAL) CBC W/DIFF AUTOMATED (06/04/2019 8:40 AM STEEL WOOL MACHINE OPERATOR) WBC 7.1 4.5 - 10.8 x10'3/uL 06/04/2019 8:55 AM [facility] RBC 5.22 4.10 - 5.40 x10'6/uL 06/04/2019 8:55 AM [facility] HGB 16.3(H) 12.0 - 16.0 G/DL 06/04/2019 8:55 AM [facility] HCT 47.3(H) 36.0 - 47.0 % 06/04/2019 8:55 AM [facility] MCV 90.6 78.0 - 100.0 FL 06/04/2019 8:55 AM [facility] MCH 31.2(H) 27.0 - 31.0 PG 06/04/2019 8:55 AM [facility] MCHC 34.5 33.0 - 36.0 G/DL 06/04/2019 8:55 AM [facility] RDW 12.1 11.5 - 14.5 % 06/04/2019 8:55 AM [facility] PLT 355(H) 150 - 350 x10'3/uL 06/04/2019 8:55 AM [facility] MPV 10.4 7.4 - 10.4 FL 06/04/2019 8:55 AM [facility] DIFFERENTIAL COMMENT NORMAL REFERENCE RANGE NOT ESTABLISHED FOR THE PROPORTIONAL LEUKOCYTE DIFFERENTIAL. 06/04/2019 8:55 AM [facility] SEG NEUTROPHILS 63.7 % 9 8:55 AM [facility] LYMPHOCYTES 26.6 % 06/04/2019 8:55 AM [facility] MONOCYTES 7.6 % 06/04/2019 8:55 AM [facility] EOSINOPHILS 1.0 % 06/04/2019 8:55 AM [facility] BASOPHILS 0.8 % 06/04/2019 8:55 AM [facility] IMMATURE GRANS % 0.3 % 06/04/20 19 8:55 AM [facility] NRBC 0.0 % 06/04/2019 8:55 AM [facility] ABS. NEUTROPHILS 4.55 1.60 - 8.30 x10'3/uL 06/04/2019 8:55 AM [facility] ABS. LYMPHOCYTES 1.90 0.80 - 4.70 x10'3/uL 06/04/2019 8:55 AM [facility] ABS. MONOCYTES 0.54 0.00 - 1.50 x10'3/uL 06/04/2019 8:55 AM [facility] ABS. EOSINOPHILS 0.07 0.00 - 0.40 x10'3/uL 06/04/2019 8:55 AM [facility] ABS. BASOPHILS 0.06 0.00 - 0.20 x10'3/uL 06/04/2019 8:55 AM [facility] ABS. IMMATURE GRANULOCYTES 0.02 0.00 - 0.03 x10'3/uL 06/04/2019 8:55 AM [facility] ABS. NUCLEATED RBC'S 0.00 0.00 x10'3/uL 06/04/2019 8:55 AM [facility] 06/04/2019 8:40 AM STEEL WOOL MACHINE OPERATOR us Sami Aguilera MD LABORATORY Final Result [place] [id number] [place] [address], * (ABNORMAL) URINALYSIS WI REFLEX TO CULTURE (06/04/2019 8:30 AM STEEL WOOL MACHINE OPERATOR) COLOR (U) YELLOW 06/04/2019 9:01 AM [facility] TRANSPARENCY CLEAR 06/04/2019 9:01 AM [facility] SPECIFIC GRAVITY (U) 1.030(H) 1.000 - 1.025 06/04/2019 9:01 AM [facility] Comment:EQUAL TO OR GREATER THAN U PH 5.5 5.0 - 8.0 06/04/2019 9:01 AM [facility] LEUKOCYTES (U) NEGATIVE NEGATIVE 06/04/2019 9:01 AM [facility] NITRITES NEGATIVE NEGATIVE 06/04/2019 9:01 AM [facility] PROTEIN (U) 2+(A) NEGATIVE 06/04/2019 9:01 AM [facility] URINE GLUCOSE 2+(A) NEGATIVE 06/04/2019 9:01 AM [facility] KETONES MG/DL (U) 1+(A) NEGATIVE 06/04/2019 9:01 AM [facility] UROBILINOGEN 0.2 <1.0 EU/DL 06/04/2019 9:01 AM [facility] BLOOD (U) 2+(A) NEGATIVE 06/04/2019 9:01 AM [facility] WBC/HPF 0-5 0 - 5 /HPF 06/04/2019 9:01 AM [facility] RBC/HPF 5-10(A) 0 - 5 /HPF 06/04/2019 9:01 AM [facility] EPI/HPF MANY /LPF 06/04/2019 9:01 AM [facility] BACTERIA (U) 1+ /HPF 06/04/2019 9:01 AM [facility] MUCUS PRESENT 06/04/2019 9:01 AM [facility] BILIRUBIN (U) NEGATIVE NEGATIVE 06/04/2019 9:01 AM [facility] CULTURE & SENSITIVITY INDICATED? NOT INDICATED 06/04/2019 9:01 AM [facility] URINE SPECIMEN OBTAINED BY CLEAN CATCH PROCEDURE / Unknown 06/04/2019 8:30 AM [employer]ACHINE OPERATOR us Sami Aguilera MD URINE ORDERABLES Final Result [facility] [address] [place] [address], * TEST URINE (06/04/2019 8:30 AM [employer] MACHINE OPERATOR) PREG TEST NEGATIVE 06/04/2019 8:59 AM [employer] MACHINE OPERATOR [facility] SPECIFIC GRAVITY (U) >1.030 06/04/2019 8:59 AM [employer] MACHINE OPERATOR [facility] URINE SPECIMEN OBTAINED BY CLEAN CATCH PROCEDURE / Unknown 06/04/2019 8:30 AM [employer] MACHINE OPERATOR Sami Aguilera MD URINE ORDERABLES Final Result Performing Organization Address City/[facility]/ZIP Co de Phone Number [facility] [place] [address], * (ABNORMAL) POCT glucose (06/04/2019 8:23 AM [employer] MACHINE OPERATOR) [facility] GLUCOSE POC 305(H) 70 - 99 MG/DL 06/04/2019 8:25 AM [employer] MACHINE OPERATOR [facility] ORDERS INTERFACE 06/04/2019 8:23 AM [employer] MACHINE OPERATOR Sami Aguilera MD POCT ORDERABLES - DEVICE Lavern l Result Performing Organization Address [facility]/ZIP Co de Phone Number [facility] ORDERS INTERFACE US documented in this encounter Visit Diagnoses Diagnosis Abdominal pain- Primary Abdominal pain, unspecified site Hyperglycemia Other abnormal glucose documented in this encounter Administered Medications Inactive Administered Medications - up to 3 most recent administrations Medication Order MAR Action Action Date Dose Rate Site insulin regular (NOVOLIN R/HUMULIN R) injection 5 Units 5 Units, Intravenous, Once, 1 dose, On Sun06/04/19 at 0930 Given 06/04/2019 9:48 AM STEEL WOOL MACHINE OPERATOR 5 Units morphine injection 4 mg 4 mg, Intravenous, Once, 1 dose, On Sun06/04/19 at 0830 Given 06/04/2019 8:59 AM STEEL WOOL MACHINE OPERATOR 4 mg morphine injection 4 mg 4 mg, Intravenous, Once, 1 dose, On Sun06/04/19 at 1000 Given 06/04/2019 10:04 AM STEEL WOOL MACHINE OPERATOR 4 mg ondansetron (ZOFRAN) injection 4 mg 4 mg, Intravenous, Once, 1 dose, On Sun06/04/19 at 0830, IV push over 2-5 minutes. Given 06/04/2019 8:58 AM STEEL WOOL MACHINE OPERATOR 4 mg sodium chloride 0.9% bolus infusion SOLN 1,000 mL 1,000 mL, Intravenous, Administer over 15 Minutes, Once, 1 dose, On Sun06/04/19 at 0830 New Bag 06/04/2019 8:57 AM STEEL WOOL MACHINE OPERATOR 1,000 mLs documented in this encounter Active and Recently Administered Medications Times are shown in STEEL WOOL MACHINE OPERATOR. Scheduled Medication Order 06/02/2019 06/03/2019 06/04/2019 insulin regular (NOVOLIN R/HUMULIN R) injection 5 Units (COMPLETED) 5 Units, Intravenous, Once, 1 dose, On Sun06/04/19 at 0930 0948 (Given - Provid er: Martina Lee RN) morphine injection 4 mg (COMPLETED) 4 mg, Intravenous, Once, 1 dose, On Sun06/04/19 at 0830 0859 (Given - Provid er: Martina Lee RN) morphine injection 4 mg (COMPLETED) 4 mg, Intravenous, Once, 1 dose, On Sun06/04/19 at 1000 1004 (Given - Provid er: Martina Lee RN) ondansetron (ZOFRAN) injection 4 mg (COMPLETED) 4 mg, Intravenous, Once, 1 dose, On Sun06/04/19 at 0830, IV push over 2-5 minutes. 0858 (Given - Provid er: Martina Lee RN) sodium chloride 0.9% bolus infusion SOLN 1,000 mL (COMPLETED) 1,000 mL, Intravenous, Administer over 15 Minutes, Once, 1 dose, On Sun06/04/19 at 0830 0857 (New Bag - Prov ider: Martina Lee RN)0958 (Infusion Stop Time - Provider: Marge Diez RN) documented in this encounter Care Teams Pulmonary Fellow Relationship Specialty Start Date End Date Isaias Grier MD [address] [place] [address] PCP - General FAMILY PRACTICE 01/29/19 03/18/21 documented as of this encounter
--- OUTSIDE RECORDS SUMMARY | 2024-08-03 01:11 | XMS_ITS | Encounter Summary ---
Author Organization [facility] Address [address] [place] [address] [place] [address] Care Team Providers Care Electronic Components Assembler Name Role Phone Unavailable Primary Care Provider Unavailabl e Encounter Details Date Type Department Care Team (Late st Contact Info) Description 04/08/2018 Abstract [facility] [address] [place] [address] Sami Aguilera MD [address] [place] [id number] Social History Tobacco Use Types Packs/Day [...] Procedure Name Priority Date/Time Associated Diagnosis Comments GLUCOSE BLOOD, QNT Routine 04/08/2018 10 :56 AM CDT BETA-HYDROXYBUTYRATE STAT 04/08/2018 10:04 AM CDT BLOOD GAS, VENOUS STAT 04/08/2018 10: 04 AM CDT COMPREHENSIVE METABOLIC PANEL STAT 04/08/2018 8:48 AM CDT CBC W/DIFF AUTOMATED STAT 04/08/2018 8:48 AM CDT documented in this encounter Results * (ABNORMAL) GLUCOSE BLOOD, QNT (04/08/2018 10:56 AM CDT) [facility] GLUCOSE POC 224(H) 70 - 140 MG/DL 04/08/2018 10:57 AM CDT [facility] ORDERS INTERFACE 04/08/2018 10:5 6 AM CDT 04/08/2018 10:57 AM CDT us Generic Conversion Md [facility] Final R esult [facility] ORDERS INTERFACE US * (ABNORMAL) BETA-HYDROXYBUTYRATE (04/08/2018 10:04 AM CDT) [facility] BETA-HYDROXYBU TYRATE 6.5(H) 0.0 - 0.3 MMOL/L 04/08/2018 10:10 AM CDT [facility] SERUM OR PLASMA SPECIMEN / Unknown 04/08/2018 10:04 AM CDT 04/08/2018 10:06 AM CDT us Generic Conversion Md [facility] Final R esult [facility] [place] [address], * (ABNORMAL) Blood gas, venous (04/08/2018 10:04 AM CDT) [facility] O2 SAT VENOUS 39(L) 40 - 70 % 04/08/2018 10:10 AM CDT [facility] PH VENOUS 7.23(L) 7.35 - 7.45 04/08/2018 10:10 AM CDT [facility] PCO2 32.9(L) 41.0 - 51.0 MMHG 04/08/2018 10:10 AM CDT [facility] PO2 VENOUS 33.0 20.0 - 40.0 MM HG 04/08/2018 10:10 AM CDT [facility] BASE DEFICIT VENOUS 13.0 MMOL/L 04/08/2018 10:10 AM CDT [facility] BICARB VENOUS 13.3(L) 22.0 - 29.0 MMOL/L 04/08/2018 10:10 AM CDT [facility] TCO2 14.3(L) 25.0 - 29.0 MMOL/L 04/08/2018 10:10 AM CDT [facility] LITER FLOW ROOM AIR 04/08/2018 10:06 AM CDT [facility] 04/08/2018 10:0 4 AM CDT 04/08/2018 10:06 AM CDT us Generic Conversion Md [facility] Final R esult [facility] [address] [place] [address], * (ABNORMAL) COMPREHENSIVE METABOLIC PANEL (04/08/2018 8:48 AM CDT) SODIUM S/P/B 129(L) 136 - 145 MMOL/L 04/08/2018 9:10 AM CDT [facility] POTASSIUM S/P/B 4.4 3.5 - 5.1 MMOL/L 04/08/2018 9:10 AM CDT [facility] CHLORIDE S/P/B 93(L) 98 - 107 MMOL/L 04/08/2018 9:10 AM CDT [facility] CO2 15.2(L) 21.0 - 32.0 MMOL/L 04/08/2018 9:10 AM CDT [facility] GLUCOSE 387(H) 70 - 140 MG/DL 04/08/2018 9:10 AM CDT [facility] BUN 21 6 - 24 MG/DL 04/08/2018 9:10 AM CDT [facility] CREATININE S/P/B 1.13(H) 0.55 - 1.02 MG/DL 04/08/2018 9:10 AM CDT [facility] CALCIUM S/P/B 9.0 8.4 - 10.5 MG/DL 04/08/2018 9:10 AM [facility] BILIRUBIN TOTAL S/P/B 0.8 0.2 - 1.0 MG/DL 04/08/2018 9:10 AM [facility] ALKALINE PHOSPHATASE S/P/B 94 37 - 98 U/L 04/08/2018 9:10 AM [facility] AST 19 15 - 37 U/L 04/08/2018 9:10 AM [facility] ALT 30 14 - 59 U/L 04/08/2018 9:10 AM [facility] TOTAL PROTEIN S/P/B 8.2 6.4 - 8.2 G/DL 04/08/2018 9:10 AM [facility] ALBUMIN S/P/B 3.8 3.4 - 5.0 G/DL 04/08/2018 9:10 AM [facility] ANION GAP 20.8 MMOL/L 04/08/2018 9:10 AM [facility] Comment:REFERENCE RANGE NOT ESTABLISHED OSMOLALITY (CALC) 287 MOSM/KG 018 9:10 AM [facility] Comment:REFERENCE RANGE NOT ESTABLISHED EGFR NON-AFR. AMER. 66(L) >89 ML/MIN/1. 73 M2 04/08/2018 9:10 AM [facility] Comment: THE ESTIMATED GFR IS CALCULATED USING THE 2009 CKD-EPI EQUATION. THE FOLLOWING CATEGORIES FOR GRADING RENAL FUNCTION ARE RECOMMENDED BY THE INTERNATIONAL SOCIETY OF NEPHROLOGY (KDIGO 2012 CLINICAL PRACTICE GUIDELINE).G1,NORMAL OR HIGH: >89 ml/min/1.73 m2G2,MILDLY DECREASED: 60-89 ml/min/1.73 m2G3A,MILDLY TO MODERATELY DECREASED: 45-59 ml/min/1.73 m2G3B,MODERATELY TO SEVERELY DECREASED: 30-44 ml/min/1.73 m2G4,SEVERELY DECREASED: 15-29 ml/min/1.73 m2G5,KIDNEY FAILURE: <15 ml/min/1.73 m2 EGFR AFR. AMER. 76(L) >89 ML/MIN/1. 73 M2 04/08/2018 9:10 AM CDT [facility] Comment: THE ESTIMATED GFR IS CALCULATED USING THE 2009 CKD-EPI EQUATION. THE FOLLOWING CATEGORIES FOR GRADING RENAL FUNCTION ARE RECOMMENDED BY THE INTERNATIONAL SOCIETY OF NEPHROLOGY (KDIGO 2012 CLINICAL PRACTICE GUIDELINE).G1,NORMAL OR HIGH: >89 ml/min/1.73 m2G2,MILDLY DECREASED: 60-89 ml/min/1.73 m2G3A,MILDLY TO MODERATELY DECREASED: 45-59 ml/min/1.73 m2G3B,MODERATELY TO SEVERELY DECREASED: 30-44 ml/min/1.73 m2G4,SEVERELY DECREASED: 15-29 ml/min/1.73 m2G5,KIDNEY FAILURE: <15 ml/min/1.73 m2 PLASMA SPECIMEN / Unknown 04/08/2018 8:48 AM CDT 04/08/2018 8:51 AM CDT us Generic Conversion Md [facility] Final R esult [facility] [address] [place] [address], * (ABNORMAL) CBC W/DIFF AUTOMATED (04/08/2018 8:48 AM CDT) WBC 7.4 4.5 - 10.8 x10'3/uL 04/08/2018 8:53 AM CDT [facility] RBC 4.39 4.10 - 5.40 x10'6/uL 04/08/2018 8:53 AM CDT [facility] HGB 13.7 12.0 - 16.0 G/DL 04/08/2018 8:53 AM CDT [facility] HCT 39.7 36.0 - 47.0 % 04/08/2018 8:53 AM CDT [facility] MCV 90.4 78.0 - 100.0 FL 04/08/2018 8:53 AM CDT [facility] MCH 31.2(H) 27.0 - 31.0 PG 04/08/2018 8:53 AM CDT [facility] MCHC 34.5 33.0 - 36.0 G/DL 04/08/2018 8:53 AM CDT [facility] RDW 11.6 11.5 - 14.5 % 04/08/2018 8:53 AM CDT [facility] PLT 252 150 - 350 x10'3/uL 04/08/2018 8:53 AM CDT [facility] MPV 9.8 7.4 - 10.4 FL 04/08/2018 8:53 AM CDT [facility] SEG NEUTROPHILS 70.1 % 8 8:53 AM CDT [facility] LYMPHOCYTES 21.1 % 04/08/2018 8:53 AM CDT [facility] MONOCYTES 7.3 % 04/08/2018 8:53 AM CDT [facility] EOSINOPHILS 0.5 % 04/08/2018 8:53 AM CDT [facility] BASOPHILS 0.7 % 04/08/2018 8:53 AM CDT [facility] IMMATURE GRANS % 0.3 % 04/08/20 18 8:53 AM CDT [facility] NRBC 0.0 % 04/08/2018 8:53 AM CDT [facility] ABS. NEUTROPHILS 5.20 1.60 - 8.30 x10'3/uL 04/08/2018 8:53 AM CDT [facility] ABS. LYMPHOCYTES 1.56 0.80 - 4.70 x10'3/uL 04/08/2018 8:53 AM CDT [facility] ABS. MONOCYTES 0.54 0.00 - 1.50 x10'3/uL 04/08/2018 8:53 AM CDT [facility] ABS. EOSINOPHILS 0.04 0.00 - 0.40 x10'3/uL 04/08/2018 8:53 AM CDT [facility] ABS. BASOPHILS 0.05 0.00 - 0.20 x10'3/uL 04/08/2018 8:53 AM CDT [facility] ABS. IMMATURE GRANULOCYTES 0.02 0.00 - 0.03 x10'3/uL 04/08/2018 8:53 AM CDT [facility] ABS. NUCLEATED RBC'S 0.00 0.00 x10'3/uL 04/08/2018 8:53 AM CDT [facility] OTHER (type in comments) 04/08/2018 8:48 AM CDT 04/08/2018 8:51 AM CDT Comment:WHOLE BLOOD SAMPLE us Generic Conversion Md [facility] Final R esult [facility] [address] [place] [address], documented in this encounter Visit Diagnoses Diagnosis Type 1 diabetes mellitus with ketoacidosis and without coma (CMS/HCC HHS/HCC) Type I (juvenile type) diabetes mellitus with ketoacidosis, not stated as uncontrolled documented in this encounter
--- OUTSIDE RECORDS SUMMARY | 2024-08-03 01:11 | XMS_ITS | Encounter Summary ---
Author Organization [facility] Address [facility] [place] [address] [place] [address] Care Team Providers Care Education Research Analyst Name Role Phone Isaias Grier MD Primary Care Provider [phone] Encounter Details Date Type Department Care Team (Latest Contact Info) Description 03/20/2019 3:26 PM CDT - 03/20/2019 11:59 PM CDT Hospital Encounter [facility] [address] [facility] [place] [address] Isaias Grier MD [address] [place] [phone] Discharge Disposition: Home or Self Care [...] FOR INJECTIONS FOUR TIMES A DAY 5 06/13/201 8 03/01/20 benzonatate 100 MG capsule Take 200 mg by mouth 3 (three) times daily as needed for Cough. 06/04/20 Blood Glucose Monitoring Suppl (ONE TOUCH ULTRA MINI) w/Device Kit see administration instructions. 0 7 03/01/20 citalopram 20 MG tablet Take 20 mg by mouth daily. 3 9 10/10/19 fluconazole 150 MG tablet Take 150 mg by mouth every other day. 1 9 10/10/19 HM MAGNESIUM CITRATE 1.745 GM/30ML Solution USE DIRECTED PER INSTRUCTIONS PROVIDED SEPARATELY 0 9 10/10/19 IBU 800 MG tablet TAKE 1 TABLET BY MOUTH THREE TIMES A DAY NEEDED 0 9 12/04/19 insulin glargine 100 UNIT/ML injection (VIAL) Inject 20 Units into the skin 2 (two) times daily. 12/04/19 insulin lispro (ADMELOG) 100 UNIT/ML injection (VIAL) 85 unit daily as directed per information provided frederick per insulin pump, max daily dose 85 Unit 8 12/04/19 insulin lispro 100 UNIT/ML injection (VIAL) Inject [...] 03/01/20 20 documented as of this encounter Plan of Treatment Not on file documented as of this encounter Procedures Procedure Name Priority Date/Time Associated Diagnosis Comments XR TMJ BILAT Routine 03/20/2019 3:59 PM CDT TMJ arthralgia documented in this encounter Results * XR TMJ BILAT (03/20/2019 3:59 PM CDT) Anatomical Region Laterality Modality Head Radiographic Angela ging 03/21/2019 1:09 PM CDT Impressions 03/21/2019 1:12 PM CDT IMPRESSION: Limited degree of anterior mandibular condyle motion during mouth opening both temporomandibular joints, see report. Interpreted By: Rodger Andrade MD, 03/21/2019 1:09 PM Narrative 03/21/2019 1:12 PM CDT 03/20/2019, 1545 hours. HISTORY: Pain left side of face for 2 weeks. Temporomandibular joint arthralgia. EXAM: Temporomandibular joints, 5 views. Oblique lateral open and closed mouth views of the temporomandibular joints and in either AP or condylar view of the temporomandibular joints. No comparison. FINDINGS: No fracture. No gross bone destruction. No remarkable narrowing of the temporomandibular joints. No bony sclerosis nor cystic lucency in the head of either mandibular condyle. On mouth opening, each mandibular condyle does not pass anterior to the anterior cortical surface of the articular eminence of either temporal bone. This could be due to incomplete mouth opening or could be due to obstruction amount opening by displaced meniscus. Intrameniscal anatomy is required one could consider MR evaluation with open and closed mouth imaging. Procedure Note Rodger Andrade MD - 03/21/2019 03/20/2019, 1545 hours. HISTORY: Pain left side of face for 2 weeks. Temporomandibular joint arthralgia. EXAM: Temporomandibular joints, 5 views. Oblique lateral open and closed mouth views of the temporomandibular joints and in either AP or condylar view of the temporomandibular joints. No comparison. FINDINGS: No fracture. No gross bone destruction. No remarkablenarrowing of the temporomandibular joints. No bony sclerosis nor cystic lucency in the head of either mandibular condyle. On mouth opening, each mandibular condyle does not pass anterior to the anterior cortical surface of the articular eminence of either temporal bone. This could be due toincomplete mouth opening or could be due to obstruction amount opening by displaced meniscus. Intrameniscal anatomy is required one could consider MR evaluation with open and closed mouth imaging. IMPRESSION: Limited degree of anterior mandibular condyle motion during mouthopening both temporomandibular joints, see report. Interpreted By: Rodger Andrade MD, 03/21/2019 1:09 PM us Isaias Grier MD GENERAL IMAGING Final Resul t documented in this encounter Visit Diagnoses Diagnosis TMJ arthralgia Arthralgia of temporomandibular joint documented in this encounter Care Teams Education Research Analyst Relationship Specialty Start Date End Date Isaias Grier MD [address] [place] [address] PCP - General FAMILY PRACTICE 01/29/19 03/18/21 documented as of this encounter
--- OUTSIDE RECORDS SUMMARY | 2024-08-03 01:11 | XMS_ITS | Encounter Summary ---
Author Organization [facility] Address [facility] [place] [address] [place] [address] Care Team Providers Care Real Property Evaluator Name Role Phone Unavailable Primary Care Provider Unavailabl e Reason for Visit * Reason Comments Holter Monitor Report (SCAN) Encounter Details Date Type Department Care Team ([facility] Contact Info) Description 12/20/2018 Scan [facility] [address] [place] [id number] Scanned, Documents Holter Monitor Report (SCAN) Social History Tobacco Use Types Packs/Day [...] Procedure Name Priority Date/Time Associated Diagnosis Comments HOLTER DOCUMENT (SCAN ORDER) Routine 12/20/2018 ECHO GENERIC (SCAN ORDER) Routine 12/20/2018 documented in this encounter Results * ECHO (12/20/2018) Anatomical Region Laterality Modality Other us Documents Scanned SCANNING Final Result * HOLTER DOCUMENT (12/20/2018) us Documents Scanned SCANNING Final Result documented in this encounter Visit Diagnoses Not on filedocumented in this encounter
--- OUTSIDE RECORDS SUMMARY | 2024-08-03 01:11 | XMS_ITS | Encounter Summary ---
Author Organization [facility] Address [address] [place] [address] [place] [address] Care Team Providers Care Vitamin Manager Name Role Phone Unavailable Primary Care Provider Unavailabl e Encounter Details Date Type Department Care Team (Latest Contact Info) Description 04/10/2018 Abstract [facility] Aissatou Pascal MD [address] [place] [address] Social History Tobacco Use Types Packs/Day Years [...] Associated Diagnosis Comments CT ABD+PEL W CON Routine 04/10/2018 5:10 PM CDT documented in this encounter Results * CT ABD+PEL W CON (04/10/2018 5:10 PM CDT) Anatomical Region Laterality Modality Abdomen Computed Tomogra phy 04/10/2018 5:10 PM CDT 04/10/2018 5:10 PM CDT Narrative 04/10/2018 7:05 [address] [address] PATIENT NAME: STEPH ROBERTO EXAM: CT abdomen/pelvis [...] MD, 04/10/2018 6:47 PM Order Doctor: AISSATOU Mccray Procedure Note Carolee Back MD - 06/04/2018 [facility] [address] [place], [place] [address] PATIENT NAME: STEPH ROBERTO EXAM: CT abdomen/pelvis [...] either side. No evidence of renal mass lesion. There is no acute inflammatory change, abscess or ascites. Bowel gas pattern suggests mild diffuse ileus. No evidence of mechanical bowel obstruction or perforation. No evidence of adenopathy. Abdominal aorta and IVC are unremarkable. CT PELVIS: The uterus is retroverted but otherwise unremarkable. There is a focal dense rim cystic structure [...] MD, 04/10/2018 6:47 PM Order Doctor: AISSATOU Mccray Aissatou Pascal MD CT Final Result documented in this encounter Visit Diagnoses Not on filedocumented in this encounter
--- OUTSIDE RECORDS SUMMARY | 2024-08-03 01:11 | XMS_ITS | Encounter Summary ---
Author Organization [facility] Address [facility] [facility] [place] [address] [place] [address] Care Team Providers Care Clean In Places Operator Name Role Phone Isaias Grier MD Primary Care Provider [phone] Encounter Details Date Type Department Care Team (Latest Contact Info) Description 01/29/2019 3:54 PM CDT - 01/29/2019 11:59 PM CDT Hospital Encounter [facility] [address] [facility] [place] [address] Isaias Grier MD [address] [place] [phone] Discharge Disposition: Home or Self Care [...] PER INSTRUCTIONS PROVIDED SEPARATELY 0 9 10/10/19 insulin glargine 100 UNIT/ML injection (VIAL) Inject [...] 1 8 03/01/20 ONETOUCH DELICA LANCETS 33G [facility] TEST BLOOD BLOOD SUGAR FOUR TIMES A DAY AND NEEDED 1 7 03/01/20 20 documented as of this encounter Plan of Treatment Not on file documented as of this encounter Procedures Procedure Name Priority Date/Time Associated Diagnosis Comments XR KNEE LT 3V Routine 01/29/2019 4:15 PM CDT Left knee pain documented in this encounter Results * XR KNEE LT 3V (01/29/2019 4:15 PM CDT) Anatomical Region Laterality Modality Knee Radiographic Angela ging 01/29/2019 4:59 PM CDT Impressions 01/29/2019 5:00 PM CDT IMPRESSION: No acute bony abnormality. Interpreted By: Homero Navarrete MD, 01/29/2019 4:59 PM Narrative 01/29/2019 5:00 PM CDT Examination: Left knee, 3 views Exam time: 01/29/2019 Clinical history: Pain all around knee. Fall. Injury. Comparison: None. Technique: Frontal, lateral, and sunrise views of the left knee were obtained. Findings: No acute fracture. No dislocation. No evidence of bone destruction or erosive arthropathy. No pathologic soft tissue calcifications. Procedure Note Homero aNvarrete MD - 01/29/2019 Examination: Left knee, 3 views Exam time: 01/29/2019 Clinical history: Pain all around knee. Fall. Injury. Comparison: None. Technique: Frontal, lateral, and sunrise views of the left knee were obtained. Findings: No acute fracture. No dislocation. No evidence of bone destruction or erosive arthropathy. No pathologic soft tissue calcifications. IMPRESSION: No acute bony abnormality. Interpreted By: Homero Navarrete MD, 01/29/2019 4:59 PM Isaias Grier MD GENERAL IMAGING Final Resul t documented in this encounter Visit Diagnoses Diagnosis Left knee pain Pain in joint, lower leg documented in this encounter Care Teams Clean In Places Operator Relationship Specialty Start Date End Date Isaias Grier MD [address] [place] [phone] PCP - General FAMILY PRACTICE 01/29/19 03/18/21 documented as of this encounter
--- OUTSIDE RECORDS SUMMARY | 2024-08-03 01:11 | XMS_ITS | Encounter Summary ---
Author Organization [facility] Address [address] [place] [address]. [place] [address] [place] [address] Care Team Providers Care Assistant Housekeeping Manager Name Role Phone Isaias Grier MD Primary Care Provider [phone] Reason for Visit * Reason Comments Abdominal Pain Encounter Details Date Type Department Care Team (Late st Contact Info) Description 07/27/2019 1:49 PM WINDOW/DISTRIBUTION CLERK - 07/27/2019 6:53 PM WINDOW/DISTRIBUTION CLERK Emergency [place] [facility] [place] [address] Antonia Ambriz, DO [address] [place] [address] Abdominal Pain Discharge Disposition: Home or Self [...] Sign Reading Time Taken Comments Blood Pressure 93/70 07/27/2019 6:30 PM WINDOW/DISTRIBUTION CLERK Pulse 86 07/27/2019 5:00 PM WINDOW/DISTRIBUTION CLERK Temperature 36.3 ??C (97.4 ??F) 07/27/2019 1:53 PM CS T Respiratory Rate 16 07/27/2019 5:00 PM WINDOW/DISTRIBUTION CLERK Oxygen Saturation 100% 07/27/2019 6:30 PM WINDOW/DISTRIBUTION CLERK Inhaled Oxygen Concentration - - Weight 49.9 kg (110 lb) 07/27/2019 1:53 PM WINDOW/DISTRIBUTION CLERK Height 165.1 cm (5' 5 ) 07/27/2019 1:53 PM WINDOW/DISTRIBUTION CLERK Body Mass Index 18.3 07/27/2019 1:53 PM WINDOW/DISTRIBUTION CLERK documented in this encounter Discharge Instructions * Attachments The following attachments cannot be sent through Care Everywhere. * Endometriosis Discharge Instructions (Lithuanian) documented in this encounter Medications at Time [...] INSTRUCTIONS PROVIDED SEPARATELY 0 9 10/10/19 20 IBU 800 MG tablet TAKE 1 TABLET [...] but uses sliding scale with it 12/04/19 20 KETOCARE Strip USE FOR TESTING DIRECTED 0 7 03/01/20 metroNIDAZOLE 0.75 % vaginal gel INSTILL ONE APPLICATORFUL VAGINALLY EVERY DAY AT BEDTIME 1 9 10/10/19 ondansetron 4 MG disintegrating tablet dissolve 1 tablet BY MOUTH EVERY 6 HOURS NEEDED FOR NAUSEA / VOMITING 0 8 10/10/19 ONE TOUCH ULTRA TEST STRIPS test strip CHECK BLOOD SUGARS FOUR TIMES A DAY NEEDED 1 8 03/01/20 ONETOUCH DELICA LANCETS 33G Misc TEST BLOOD BLOOD SUGAR FOUR TIMES A DAY AND NEEDED 1 7 03/01/20 oxyCODONE-acetamino phen 5-325 MG tabletIndications:A cute Pain < 3 Day Supply Take 1 tablet by mouth every 8 (eight) hours as needed for Pain. Indications: Acute Pain < 3 Day Supply 9 tablet 0 10/10/19 traMADol 50 MG tablet TAKE 1 TO 2 TABLETS BY MOUTH TWO TIMES A DAY 0 9 10/10/19 20 documented as of this encounter ED Notes * Millie Cintron RN - 07/27/2019 5:10 PM CST Pt drinking bruce mist, eating saltine crackers. OW/DISTRIBUTION CLERK * Millie Cintron RN - 07/27/2019 5:03 PM CST Pt states she feels like her blood sugar is dropping. fsbs 112. Dr. ambriz aware. Advised to allow pt to eat. OW/DISTRIBUTION CLERK OW/DISTRIBUTION CLERK * Millie Cintron RN - 07/27/2019 4:00 PM CST Requests additional pain meds. Dr. ambriz aware. Pt advised we need lab results back before he willgive more meds. OW/DISTRIBUTION CLERK * Antonia Ambriz DO - 07/27/2019 2:14 PM CST I, ar Dougherty, am personally taking down the notes in the presence of Antonia Ambriz DO.?Take no action on this note until reviewed and authenticated??by the physician. Chief Complaint Chief Complaint Patient presents with ??? Abdominal Pain History of Present Illness History provided by: Patient Steph Camacho is a 28-year-old female presenting to the ED seeking evaluation for lower abdominal pain x 3 days. She notes the associated symptoms of vomiting x today, nausea, dark colored urine, fever (102F), chills, weakness, dizziness, and light-headedness. She denies diarrhea, blood in vomit, dysuria, and urinary frequency. She reports her vomit is brown colored. Patient states that is she diabetic and due to her pain and vomiting she is unable to keep her sugars under control. They are running in the 200's. Patient reports that she is suppose to have surgery in 10 days to get a tuballigation and burn her uterus due to it causing this pain. Patient states the pain flares up when she is about to start her period. LNMP: 1 month ago. She reports taking tylenol and ibuprofen at home without relief. Patient states a surgical history of a and cholecystectomy. No other pertinent medical history. No other positive complaints were reported upon review of systems. Medical History ALLERGIES: Allergies Allergen Reactions ??? Peanut-Containing Drug Products Anaphylaxis ??? Latex Hives MEDICATIONS: Prior to Admission medications Medication Sig Start Date End Date Taking? Authorizing Provider insulin lispro (ADMELOG) 100 UNIT/ML injection (VIAL) 85 unit daily as directed per information provided seperatly per insulin pump, max daily dose 85 Unit 06/26/18 Yes Doc Abstract levothyroxine 25 MCG tablet Take 25 mcg by mouth daily. 05/22/19 Yes Doc Abstract ondansetron 4 MG disintegrating tablet dissolve 1 tablet BY MOUTH EVERY 6 HOURS NEEDED FOR NAUSEA / VOMITING 04/04/18 Yes Doc Abstract oxyCODONE-acetaminophen 5-325 MG tablet Take 1 tablet by mouth every 8 (eight) hours as needed for Pain. Indications: Acute Pain < 3 Day Supply 07/27/19 Yes Antonia Ambriz, DO pantoprazole EC 40 MG tablet Take 40 mg by mouth daily. 05/22/19 Yes Doc Abstract B-D UF III MINI PEN NEEDLES 31G X 5 MM Misc USE FOR INJECTIONS FOUR TIMES A DAY 01/02/18 Doc Abstract Blood Glucose Monitoring Suppl (ONE TOUCH ULTRA MINI) w/Device Kit see administration instructions.04/24/17 Doc Abstract citalopram 20 MG tablet Take 20 mg by mouth daily. 01/01/19 Doc Abstract fluconazole 150 MG tablet Take 150 mg by mouth every other day. 01/01/19 Doc Abstract HM MAGNESIUM CITRATE 1.745 GM/30ML Solution USE DIRECTED PER INSTRUCTIONS PROVIDED SEPARATELY 12/11/18 Doc Abstract IBU 800 MG tablet TAKE 1 TABLET BY MOUTH THREE TIMES A DAY NEEDED 03/20/19 Doc Abstract insulin glargine 100 UNIT/ML injection (VIAL) Inject 20 Units into the skin 2 (two) times daily. Doc Abstract insulin lispro 100 UNIT/ML injection (VIAL) Inject 10 Units into the skin 3 (three) times daily before meals. This is average dose, but uses sliding scale with it Doc Abstract KETOCARE Strip USE FOR TESTING DIRECTED 07/20/17 Doc Abstract metroNIDAZOLE 0.75 % vaginal gel INSTILL ONE APPLICATORFUL VAGINALLY EVERY DAY AT BEDTIME 01/01/19 Doc Abstract ONE TOUCH ULTRA TEST STRIPS test strip CHECK BLOOD SUGARS FOUR TIMES A DAY NEEDED 11/09/17 Doc Abstract ONETOUCH DELICA LANCETS 33G Misc TEST BLOOD BLOOD SUGAR FOUR TIMES A DAY AND NEEDED 04/24/17 Doc Abstract traMADol 50 MG tablet TAKE 1 TO 2 TABLETS BY MOUTH TWO TIMES A DAY 05/07/19 Doc Abstract PAST MEDICAL HISTORY: Past Medical History: Diagnosis Date ??? Anxiety ??? Bronchitis ??? Diabetes mellitus ([facility]/HCC) ??? Gastrointestinal ulcer ??? GERD (gastroesophageal reflux [...] Systems Review of Systems Constitutional: Positive for chills and fever. HENT: Negative. Eyes: Negative. Respiratory: Negative. Cardiovascular: Negative. Gastrointestinal: Positive for abdominal pain, nausea and vomiting. Negative for diarrhea. Endocrine: Negative. Genitourinary: Negative. Negative for dysuria, frequency and hematuria. Reports: dark colored urine Musculoskeletal: Negative. Skin: Negative. Allergic/Immunologic: Negative. Neurological: Positive for dizziness, weakness and light-headedness. Hematological: Negative. Psychiatric/Behavioral: Negative. Physical Exam Filed Vitals: 07/27/19 1445 07/27/19 1530 07/27/19 1700 07/27/19 1745 BP: 101/79 105/77 94/65 (!) 88/55 Pulse: 88 86 86 Resp: 18 18 16 Temp: SpO2: 98% 98% 99% 98% Weight: Height: Physical Exam Nursing note and [...] with no erythema present. Oropharynx is clear. Dry oral mucosa. Pale lips. Neck: Supple. Back: Normal ROM. Chest and Respiratory: Airway patent. Breath sounds equal. Lungs clear with auscultation. No stridor, wheezes, rales, or rhonchi. No accessory muscle use. No respiratory distress. Cardiovascular: Regular rate and rhythm. No murmur, rubs, or gallops. Abdominal: Bowel sounds present. Soft. Non-distended. No obvious masses or hernias. No rebound, guarding, or rigidity. Periumbilical tenderness to palpation. Vascular: Brisk capillary refill. Radial and pedal pulses 2+ bilaterally. No edema to BLE. Musculoskeletal: Normal ROM. No deformity. Neurologic: Alert and oriented x 3. No gross motor deficits. Mental Status: Normal affect. Genital-Rectal: female deferred Diagnostic Studies / Procedures ELECTROCARDIOGRAMS: No results found for this visit on 07/27/19. LABORATORY STUDIES: Results for orders placed or performed during the hospital encounter of 07/27/19 CBC W/DIFF AUTOMATED Result Value Ref Range WBC 7.5 4.5 - 10.8 x10'3/uL RBC 4.25 4.10 - 5.40 x10'6/uL HGB 13.3 12.0 - 16.0 G/DL HCT 38.4 36.0 - 47.0 % MCV 90.4 78.0 - 100.0 FL MCH 31.3 (H) 27.0 - 31.0 PG MCHC 34.6 33.0 - 36.0 G/DL RDW 11.9 11.5 - 14.5 % PLT 280 150 - 350 x10'3/uL MPV 9.8 7.4 - 10.4 FL Differential Comment NORMAL REFERENCE RANGE NOT ESTABLISHED FOR THE PROPORTIONAL LEUKOCYTE DIFFERENTIAL. SEG NEUTROPHILS 64.3 % LYMPHOCYTES 27.7 % MONOCYTES 5.7 % EOSINOPHILS 1.5 % BASOPHILS 0.7 % IMMATURE GRANS 0.1 % NRBC 0.0 % ABS. NEUTROPHILS 4.81 1.60 - 8.30 x10'3/uL ABS. LYMPHOCYTES 2.07 0.80 - 4.70 x10'3/uL ABS. MONOCYTES 0.43 0.00 - 1.50 x10'3/uL ABS. EOSINOPHILS 0.11 0.00 - 0.40 x10'3/uL ABS. BASOPHILS 0.05 0.00 - 0.20 x10'3/uL ABS. IMMATURE GRANULOCYTES 0.01 0.00 - 0.03 x10'3/uL ABS. NUCLEATED RBC'S 0.00 0.00 x10'3/uL COMPREHENSIVE METABOLIC PANEL Result Value Ref Range SODIUM 134 (L) 136 - 145 MMOL/L POTASSIUM 4.0 3.5 - 5.1 MMOL/L CHLORIDE 98 98 - 107 MMOL/L CO2 27.0 21.0 - 32.0 MMOL/L GLUCOSE 207 (H) 70 - 99 MG/DL BUN 16 6 - 24 MG/DL CREATININE 0.65 0.55 - 1.02 MG/DL CALCIUM 9.4 8.4 - 10.5 MG/DL TOTAL BILIRUBIN 0.6 0.2 - 1.0 MG/DL ALK PHOS 86 37 - 98 U/L AST 18 15 - 37 U/L ALT 32 14 - 59 U/L TOTAL PROTEIN 7.8 6.4 - 8.2 G/DL ALBUMIN 3.8 3.4 - 5.0 G/DL ANION GAP 9.0 5.0 - 15.0 MMOL/L OSMOLALITY (CALC) 285 MOSM/KG eGFR Non-Afr. Amer. >90 >89 ML/MIN/1.73 M2 eGFR Afr. Amer. >90 >89 ML/MIN/1.73 M2 GFR NOTES GFR REFERENCES: HCG QUANT (SERUM)-CHORIONIC GONADOTROPIN Result Value Ref Range HCG, QUANTITATIVE <1 0.0 - 6.0 MIU/ML LIPASE Result Value Ref Range LIPASE 102 73 - 393 UNITS/L MAGNESIUM Result Value Ref Range MAGNESIUM 1.8 1.8 - 2.4 MG/DL TSH W/REFLEX Result Value Ref Range TSH 6.845 (H) 0.358 - 3.740 uIU/ML URINALYSIS WI REFLEX TO CULTURE Result Value Ref Range COLOR YELLOW TRANSPARENCY CLEAR Specific [place] (U) 1.030 (H) 1.000 - 1.025 U PH 6.0 5.0 - 8.0 LEUKOCYTE ESTERASE NEGATIVE NEGATIVE NITRITES NEGATIVE NEGATIVE PROTEIN, URINE 1+ (A) NEGATIVE URINE GLUCOSE TRACE (A) NEGATIVE U KETONES TRACE (A) NEGATIVE UROBILINOGEN 0.2 <1.0 EU/DL Urine Bilirubin NEGATIVE NEGATIVE BLOOD NEGATIVE NEGATIVE WBC/HPF 0-5 0 - 5 /HPF EPI/HPF OCCASIONAL /LPF CULTURE & SENSITIVITY INDICATED? NOT INDICATED Blood gas, venous Result Value Ref Range O2 Sat.-Venous 88 (H) 40 - 70 % pH-Venous 7.44 7.35 - 7.45 PC02 VENOUS 38.7 (L) 41.0 - 51.0 MMHG PO2 VENOUS 59.0 (H) 20.0 - 40.0 MM HG VENOUS BASE EXCESS 1.9 MMOL/L Bicarb-Venous 25.6 22.0 - 29.0 MMOL/L TCO2 26.8 25.0 - 29.0 MMOL/L LITER FLOW ROOM AIR BETA-HYDROXYBUTYRATE Result Value Ref Range BETA-HYDROXYBUTYRATE 0.1 0.0 - 0.3 MMOL/L THYROXINE, FREE (FT4) Result Value Ref Range FREE T4 0.96 0.76 - 1.46 NG/DL IMAGING STUDIES No orders to display ED Course / Medical Decision Making MDM Number of Diagnoses or Management Options Endometriosis: established and worsening Amount and/or Complexity of Data Reviewed Clinical lab tests: reviewed and ordered Risk of Complications, Morbidity, and/or Mortality Presenting problems: low Diagnostic procedures: low Management options: moderate Patient Progress Patient progress: improved ED Course as of Jul 27 1837 Sun Jul 27, [id number] Patient reports that pain is still present but tolerable now. She is comfortable with going home to recover there. Discharge plans with pain control discussed. She is agreeable for a few days ofPercocet and to follow-up with her primary doctors or psych tech if pain is not controllable withthat. She will keep her scheduled appointments with gynecology. [JW] ED Course User Index [JW] Antonia Ambriz DO Clinical Impression Endometriosis (Primary) Medications oxyCODONE-acetaminophen (PERCOCET) 5-325 MG tablet 1 tablet (not administered) ondansetron (ZOFRAN) injection 4 mg (4 mg Intravenous Given 07/27/19 1505) lactated ringers infusion (1,000 mLs Intravenous New Bag 07/27/19 1504) fentaNYL (SUBLIMAZE) injection 25 mcg (25 mcg Intravenous Given 07/27/19 1506) fentaNYL (SUBLIMAZE) injection 50 mcg ( Intravenous Given 07/27/19 1648) Current Discharge Medication List START taking these medications Details oxyCODONE-acetaminophen 5-325 MG tablet Take 1 tablet by mouth every 8 (eight) hours as needed for Pain. Indications: Acute Pain < 3 Day Supply Qty: 9 tablet, Refills: 0 Class: Print Pharmacy: [address] (Ph #: [phone]) Isaias Grier MD [address] [place] [phone] In 3 days If symptoms not improving Zeb Worley MD [address] [facility] [address] As scheduled Disposition: Discharge Douglas Man, 07/27/19, 14:27. Provider Attestation: I,ANTONIA AMBRIZ, DO attest that I supervised the patient care provided and have reviewed the documentation recorded by the scribe in conjunction with myself for the duration of our concurrent shift. Any documentation I have added that may be in conflict with that documented by the scribe should be considered the documentation of record. Antonia Ambriz DO 07/27/19 1838 OW/DISTRIBUTION CLERK * Christelle Da Silva RN - 07/27/2019 1:52 PM CST Here with abdominal pain and vomiting. Onset 3 days ago for abdominal pain. Vomiting at 4 am today. Schedule for gyny procedure 08/06/19 Pt is diabetic last FSBS 271 - has an insulin pump. OW/DISTRIBUTION CLERK documented in this encounter Plan of Treatment Not on file documented as of this encounter Procedures Procedure Name Priority Date/Time Associated Diagnosis Comments POCT GLUCOSE - ALARCON DOCKED DEVICE Routine 07/27/2019 5:04 PM WINDOW/DISTRIBUTION CLERK URINALYSIS WI REFLEX TO CULTURE STAT 07/27/2019 4:00 PM WINDOW/DISTRIBUTION CLERK BETA-HYDROXYBUTYRATE STAT 07/27/2019 2:30 PM WINDOW/DISTRIBUTION CLERK TSH W/REFLEX STAT 07/27/2019 2:30 PM WINDOW/DISTRIBUTION CLERK BLOOD GAS, VENOUS STAT 07/27/2019 2:3 0 PM WINDOW/DISTRIBUTION CLERK COMPREHENSIVE METABOLIC PANEL STAT 07/27/2019 2:30 PM WINDOW/DISTRIBUTION CLERK HCG QUANT (SERUM)-CHORIONIC GONADOTROPIN STAT 07/27/2019 2:30 PM WINDOW/DISTRIBUTION CLERK CBC W/DIFF AUTOMATED STAT 07/27/2019 2:30 PM WINDOW/DISTRIBUTION CLERK THYROXINE, FREE (FT4) STAT 07/27/2019 2:30 PM WINDOW/DISTRIBUTION CLERK MAGNESIUM STAT 07/27/2019 2:30 PM WINDOW/DISTRIBUTION CLERK LIPASE STAT 07/27/2019 2:30 PM WINDOW/DISTRIBUTION CLERK documented in this encounter Results * (ABNORMAL) POCT glucose (07/27/2019 5:04 PM WINDOW/DISTRIBUTION CLERK) GLUCOSE POC 112(H) 70 - 99 MG/DL 07/29/2019 7:07 AM WINDOW/DISTRIBUTION CLERK [facility] ORDERS INTERFACE 07/27/2019 5:04 PM WINDOW/DISTRIBUTION CLERK us Antonia Ambriz DO POCT ORDERABLES - DEVICE Final R esult [facility] ORDERS INTERFACE US * (ABNORMAL) URINALYSIS WI REFLEX TO CULTURE (07/27/2019 4:00 PM WINDOW/DISTRIBUTION CLERK) COLOR (U) YELLOW 07/27/2019 4:14 PM [facility] TRANSPARENCY CLEAR 07/27/2019 4:14 PM [facility] SPECIFIC GRAVITY (U) 1.030(H) 1.000 - 1.025 07/27/2019 4:14 PM [facility] Comment:EQUAL TO OR GREATER THAN U PH 6.0 5.0 - 8.0 07/27/2019 4:14 PM [facility] LEUKOCYTES (U) NEGATIVE NEGATIVE 07/27/2019 4:14 PM [facility] NITRITES NEGATIVE NEGATIVE 07/27/2019 4:14 PM [facility] PROTEIN (U) 1+(A) NEGATIVE 07/27/2019 4:14 PM [facility] URINE GLUCOSE TRACE(A) NEGATIVE 07/27/2019 4:14 PM [facility] KETONES MG/DL (U) TRACE(A) NEGATIVE 07/27/2019 4:14 PM [facility] UROBILINOGEN 0.2 <1.0 EU/DL 07/27/2019 4:14 PM [facility] BILIRUBIN (U) NEGATIVE NEGATIVE 07/27/2019 4:14 PM [facility] BLOOD (U) NEGATIVE NEGATIVE 07/27/2019 4:14 PM [facility] WBC/HPF 0-5 0 - 5 /HPF 07/27/2019 4:14 PM [facility] EPI/HPF OCCASIONAL /LPF 07/27/2019 4:14 PM WINDOW/DISTRIBUTION CLERK [facility] CULTURE & SENSITIVITY INDICATED? NOT INDICATED 07/27/2019 4:14 PM WINDOW/DISTRIBUTION CLERK [facility] URINE SPECIMEN OBTAINED BY CLEAN CATCH PROCEDURE / Unknown 07/27/2019 4:00 PM WINDOW/DISTRIBUTION CLERK us Antonia Ambriz DO URINE ORDERABLES Final Result Performing Organization Address [facility]/ZIP Co de Phone Number [facility] [address] [place] [address], * THYROXINE, FREE (FT4) (07/27/2019 2:30 PM WINDOW/DISTRIBUTION CLERK) FREE T4 0.96 0.76 - 1.46 NG/DL 07/27/2019 3:47 PM WINDOW/DISTRIBUTION CLERK [facility] 07/27/2019 2:30 PM WINDOW/DISTRIBUTION CLERK us Antonia Ambriz DO LABORATORY Final Result Performing Organization Address [facility] Co de Phone Number [facility] [address] [place] [address], * BETA-HYDROXYBUTYRATE (07/27/2019 2:30 PM WINDOW/DISTRIBUTION CLERK) BETA-HYDROXYBUT YRATE 0.1 0.0 - 0.3 MMOL/L 07/27/2019 2:51 PM WINDOW/DISTRIBUTION CLERK [facility] 07/27/2019 2:30 PM WINDOW/DISTRIBUTION CLERK us Antonia Ambriz DO LABORATORY Final Result Performing Organization Address [facility] Co de Phone Number [facility] [address] [place] [address], * (ABNORMAL) Blood gas, venous (07/27/2019 2:30 PM WINDOW/DISTRIBUTION CLERK) O2 SAT VENOUS 88(H) 40 - 70 % 07/27/2019 2:48 PM WINDOW/DISTRIBUTION CLERK [facility] PH VENOUS 7.44 7.35 - 7.45 07/27/2019 2:48 PM WINDOW/DISTRIBUTION CLERK [facility] PCO2 VENOUS 38.7(L) 41.0 - 51.0 MMHG 07/27/2019 2:48 PM WINDOW/DISTRIBUTION CLERK [facility] PO2 VENOUS 59.0(H) 20.0 - 40.0 MM HG 07/27/2019 2:48 PM WINDOW/DISTRIBUTION CLERK [facility] VENOUS BASE EXCESS 1.9 MMOL/L 07/27/2019 2:48 PM WINDOW/DISTRIBUTION CLERK [facility] BICARB VENOUS 25.6 22.0 - 29.0 MMOL/L 07/27/2019 2:48 PM WINDOW/DISTRIBUTION CLERK [facility] TCO2 26.8 25.0 - 29.0 MMOL/L 07/27/2019 2:48 PM WINDOW/DISTRIBUTION CLERK [facility] LITER FLOW ROOM AIR 07/27/2019 2:40 PM WINDOW/DISTRIBUTION CLERK [facility] Blood specimen (specimen) 07/27/2019 2:30 PM WINDOW/DISTRIBUTION CLERK us Antonia Ambriz DO LABORATORY Final Result Performing Organization Address City/[facility]/ZIP Co de Phone Number [facility] [address] [place] [address], * (ABNORMAL) TSH W/REFLEX (07/27/2019 2:30 PM WINDOW/DISTRIBUTION CLERK) TSH 6.845(H) 0.358 - 3.740 uIU/ML 07/27/2019 3:28 PM WINDOW/DISTRIBUTION CLERK [facility] 07/27/2019 2:30 PM WINDOW/DISTRIBUTION CLERK us Antonia Ambriz DO LABORATORY Final Result Performing Organization Address City/[facility]/ZIP Co de Phone Number [facility] [address] [place] [address], * MAGNESIUM (07/27/2019 2:30 PM WINDOW/DISTRIBUTION CLERK) MAGNESIUM 1.8 1.8 - 2.4 MG/DL 07/27/2019 3:05 PM WINDOW/DISTRIBUTION CLERK [facility] 07/27/2019 2:30 PM WINDOW/DISTRIBUTION CLERK us Antonia Ambriz DO LABORATORY Final Result Performing Organization Address [facility] Co de Phone Number [facility] [address] [place] [address], [place] [phone] * LIPASE (07/27/2019 2:30 PM WINDOW/DISTRIBUTION CLERK) LIPASE 102 73 - 393 UNITS/L 07/27/2019 3:05 PM WINDOW/DISTRIBUTION CLERK [facility] 07/27/2019 2:30 PM WINDOW/DISTRIBUTION CLERK us Antonia Ambriz DO LABORATORY Final Result Performing Organization Address [facility] de Phone Number [facility] [address] [place] [address], [place] [phone] * HCG QUANT (SERUM)-CHORIONIC GONADOTROPIN (07/27/2019 2:30 PM WINDOW/DISTRIBUTION CLERK) HCG QUANTITATIVE <1 0.0 - 6.0 MIU/ML 07/27/2019 3:28 PM WINDOW/DISTRIBUTION CLERK [facility] Comment:NON- FEMALE 0-6 07/27/2019 2:3 0 PM WINDOW/DISTRIBUTION CLERK us Antonia Ambriz DO LABORATORY Final Result Performing Organization Address [facility] Co de Phone Number [facility] [address] [place] [address], [place] [phone] * (ABNORMAL) COMPREHENSIVE METABOLIC PANEL (07/27/2019 2:30 PM WINDOW/DISTRIBUTION CLERK) SODIUM S/P/B 134(L) 136 - 145 MMOL/L 07/27/2019 3:05 PM WINDOW/DISTRIBUTION CLERK [facility] POTASSIUM S/P/B 4.0 3.5 - 5.1 MMOL/L 07/27/2019 3:05 PM WINDOW/DISTRIBUTION CLERK [facility] CHLORIDE S/P/B 98 98 - 107 MMOL/L 07/27/2019 3:05 PM [facility] CO2 27.0 21.0 - 32.0 MMOL/L 07/27/2019 3:05 PM [facility] GLUCOSE 207(H) 70 - 99 MG/DL 07/27/2019 3:05 PM [facility] Comment: FASTING GLUCOSE 100 TO 125 MG/DL IS CONSISTENT WITH IMPAIRED FASTING GLUCOSE. FASTING GLUCOSE >125 MG/DL IS CONSISTENT WITH DIABETES. RANDOM GLUCOSE >200 MG/DL WITH HYPERGLYCEMIC SYMPTOMS IS CONSISTENT WITH DIABETES. PER ADA GUIDELINES BUN 16 6 - 24 MG/DL 07/27/2019 3:05 PM [facility] CREATININE S/P/B 0.65 0.55 - 1.02 MG/DL 07/27/2019 3:05 PM [facility] CALCIUM S/P/B 9.4 8.4 - 10.5 MG/DL 07/27/2019 3:05 PM [facility] BILIRUBIN TOTAL S/P/B 0.6 0.2 - 1.0 MG/DL 07/27/2019 3:05 PM [facility] ALKALINE PHOSPHATASE S/P/B 86 37 - 98 U/L 07/27/2019 3:05 PM [facility] AST 18 15 - 37 U/L 07/27/2019 3:05 PM [facility] ALT 32 14 - 59 U/L 07/27/2019 3:05 PM [facility] TOTAL PROTEIN S/P/B 7.8 6.4 - 8.2 G/DL 07/27/2019 3:05 PM [facility] ALBUMIN S/P/B 3.8 3.4 - 5.0 G/DL 07/27/2019 3:05 PM [facility] ANION GAP 9.0 5.0 - 15.0 MMOL/L 07/27/2019 3:05 PM [facility] OSMOLALITY (CALC) 285 MOSM/KG 020 3:05 PM [facility] Comment:REFERENCE RANGE NOT ESTABLISHED EGFR NON-AFR. AMER. >90 >89 ML/MIN/1. 73 M2 07/27/2019 3:05 PM [facility] EGFR AFR. AMER. >90 >89 ML/MIN/1. 73 M2 07/27/2019 3:05 PM [facility] GFR NOTES GFR REFERENCE S: 07/27/2019 3:05 PM [facility] Comment: THE ESTIMATED GFR [...] ml/min/1.73 m2 G5,KIDNEY FAILURE: <15 ml/min/1.73 m2 07/27/2019 2:30 PM WINDOW/DISTRIBUTION CLERK Antonia Ambriz DO LABORATORY Final Result [facility] [address] [place] [address], * (ABNORMAL) CBC W/DIFF AUTOMATED (07/27/2019 2:30 PM WINDOW/DISTRIBUTION CLERK) WBC 7.5 4.5 - 10.8 x10'3/uL 07/27/2019 2:44 PM [facility] RBC 4.25 4.10 - 5.40 x10'6/uL 07/27/2019 2:44 PM [facility] HGB 13.3 12.0 - 16.0 G/DL 07/27/2019 2:44 PM [facility] HCT 38.4 36.0 - 47.0 % 07/27/2019 2:44 PM [facility] MCV 90.4 78.0 - 100.0 FL 07/27/2019 2:44 PM [facility] MCH 31.3(H) 27.0 - 31.0 PG 07/27/2019 2:44 PM [facility] MCHC 34.6 33.0 - 36.0 G/DL 07/27/2019 2:44 PM [facility] RDW 11.9 11.5 - 14.5 % 07/27/2019 2:44 PM [facility] PLT 280 150 - 350 x10'3/uL 07/27/2019 2:44 PM [facility] MPV 9.8 7.4 - 10.4 FL 07/27/2019 2:44 PM [facility] DIFFERENTIAL COMMENT NORMAL REFERENCE RANGE NOT ESTABLISHED FOR THE PROPORTIONAL LEUKOCYTE DIFFERENTIAL. 07/27/2019 2:44 PM [facility] SEG NEUTROPHILS 64.3 % 0 2:44 PM [facility] LYMPHOCYTES 27.7 % 07/27/2019 2:44 PM [facility] MONOCYTES 5.7 % 07/27/2019 2:44 PM [facility] EOSINOPHILS 1.5 % 07/27/2019 2:44 PM [facility] BASOPHILS 0.7 % 07/27/2019 2:44 PM [facility] IMMATURE GRANS % 0.1 % 07/27/19 20 2:44 PM [facility] NRBC 0.0 % 07/27/2019 2:44 PM [facility] ABS. NEUTROPHILS 4.81 1.60 - 8.30 x10'3/uL 07/27/2019 2:44 PM [facility] ABS. LYMPHOCYTES 2.07 0.80 - 4.70 x10'3/uL 07/27/2019 2:44 PM [facility] ABS. MONOCYTES 0.43 0.00 - 1.50 x10'3/uL 07/27/2019 2:44 PM [facility] ABS. EOSINOPHILS 0.11 0.00 - 0.40 x10'3/uL 07/27/2019 2:44 PM [facility] ABS. BASOPHILS 0.05 0.00 - 0.20 x10'3/uL 07/27/2019 2:44 PM WINDOW/DISTRIBUTION CLERK [facility] ABS. IMMATURE GRANULOCYTES 0.01 0.00 - 0.03 x10'3/uL 07/27/2019 2:44 PM WINDOW/DISTRIBUTION CLERK [facility] ABS. NUCLEATED RBC'S 0.00 0.00 x10'3/uL 07/27/2019 2:44 PM WINDOW/DISTRIBUTION CLERK [facility] 07/27/2019 2:30 PM WINDOW/DISTRIBUTION CLERK Antonia Ambriz DO LABORATORY Final Result [facility] [address] [place] [address], documented in this encounter Visit Diagnoses Diagnosis Endometriosis- Primary Endometriosis, site unspecified documented in this encounter Administered Medications Inactive Administered Medications - up to 3 most recent administrations Medication Order MAR Action Action Date Dose Rate Site fentaNYL (SUBLIMAZE) injection 25 mcg 25 mcg, Intravenous, Once, 1 dose, On 07/27/19 at 1430, If intravenous (IV) route has been ordered, give over 1-2 minutes. Given 07/27/2019 3:06 PM WINDOW/DISTRIBUTION CLERK 25 mcg fentaNYL (SUBLIMAZE) injection 50 mcg 50 mcg, Intravenous, Once, 1 dose, On 07/27/19 at 1630, If intravenous (IV) route has been ordered, give over 1-2 minutes. Given 07/27/2019 4:48 PM WINDOW/DISTRIBUTION CLERK lactated ringers infusion at 999 mL/hr, Intravenous, Once, 1 dose, On 07/27/19 at 1430 New Bag 07/27/2019 3:04 PM WINDOW/DISTRIBUTION CLERK 1,000 mLs 999 mL/hr ondansetron (ZOFRAN) injection 4 mg 4 mg, Intravenous, Once, 1 dose, On 07/27/19 at 1430, IV push over 2-5 minutes. Given 07/27/2019 3:05 PM WINDOW/DISTRIBUTION CLERK 4 mg oxyCODONE-acetaminophen (PERCOCET) 5-325 MG tablet 1 tablet 1 tablet, Oral, Every 4 hours PRN, Severe pain (Scale 8 - 10), 3 doses, Starting on 07/27/19 at 1833, Until 07/27/19 at 2101, MEDICATION FOR TAKE HOME Given 07/27/2019 6:53 PM WINDOW/DISTRIBUTION CLERK 1 tablet documented in this encounter Active and Recently Administered Medications Times are shown in WINDOW/DISTRIBUTION CLERK. Scheduled Medication Order 07/25/2019 07/26/2019 07/27/2019 fentaNYL (SUBLIMAZE) injection 25 mcg (COMPLETED) 25 mcg, Intravenous, Once, 1 dose, On 07/27/19 at 1430, If intravenous (IV) route has been ordered, give over 1-2 minutes. 1506 (Given - Provid er: Millie Cintron RN) fentaNYL (SUBLIMAZE) injection 50 mcg (COMPLETED) 50 mcg, Intravenous, Once, 1 dose, On 07/27/19 at 1630, If intravenous (IV) route has been ordered, give over 1-2 minutes. 1648 (Given - Provid er: Millie Cintron RN) lactated ringers infusion (COMPLETED) at 999 mL/hr, Intravenous, Once, 1 dose, On 07/27/19 at 1430 1504 (New Bag - Prov ider: Millie Cintron RN)1606 (Infusion Stop Time - Provider: Millie Cintron RN) ondansetron (ZOFRAN) injection 4 mg (COMPLETED) 4 mg, Intravenous, Once, 1 dose, On 07/27/19 at 1430, IV push over 2-5 minutes. 1505 (Given - Provid er: Millie Cintron RN) PRN Medication Order 07/25/2019 07/26/2019 07/27/2019 oxyCODONE-acetaminophen (PERCOCET) 5-325 MG tablet 1 tablet 1 tablet, Oral, Every 4 hours PRN, Severe pain (Scale 8 - 10), 3 doses, Starting on 07/27/19 at 1833, Until 07/27/19 at 2101, MEDICATION FOR TAKE HOME 1853 (Given - Provid er: Millie Cintron RN) documented in this encounter Care Teams Assistant Housekeeping Manager Relationship Specialty Start Date End Date Isaias Grier MD [address] [place] [phone] PCP - General FAMILY PRACTICE 01/29/19 03/18/21 documented as of this encounter
--- OUTSIDE RECORDS SUMMARY | 2024-08-03 01:11 | XMS_ITS | Encounter Summary ---
Author Organization [facility] Address [facility] [place] [address] [place] [address] Care Team Providers Care Personnel And Payroll Technician Name Role Phone Isaias Grier MD Primary Care Provider [phone] Renee Hernandez MD Primary Care Provider [phone] Encounter Details Date Type Department Care Team (Late st Contact Info) Description 12/28/2018 Abstract [facility] [address] [place] [address] , Generic Conversion, Social History Tobacco Use Types Packs/Day Years [...] Out 03/01/2020 03/01/2020 03/02/2020 10:39 PM CDT COVID-19 Rule Out 03/19/2021 03/19/2021 03/19/2021 1:12 PM CDT COVID-19 Rule Out 05/22/2024 05/22/2024 05/23/2024 2:08 PM CDT documented as of this encounter Care Teams Personnel And Payroll Technician Relationship Specialty Start Date End Date Isaias Grier MD [address] [place] [phone] PCP - General FAMILY PRACTICE 01/29/19 03/18/21 Renee Hernandez MD [address] [place] [address] [place] [phone] PCP - General FAMILY PRACTICE 03/19/21 documented as of this encounter
--- OUTSIDE RECORDS SUMMARY | 2024-08-03 01:11 | XMS_ITS | Encounter Summary ---
Author Organization [facility] Address [address] [facility] [place] [address] [place] [address] Care Team Providers Care Shuttle Van Driver Name Role Phone Unavailable Primary Care Provider Unavailabl e Encounter Details Date Type Department Care Team (Late st Contact Info) Description 09/03/2018 Abstract [facility] [address] [place] [address] Monserrat Kim MD [address] [place] [address] Social History Tobacco Use Types Packs/Day Years [...] Associated Diagnosis Comments GLUCOSE BLOOD, QNT Routine 09/03/2018 8: 46 AM PHYSICIAN ASSISTANT CERTIFIED PARTIAL THROMBOPLASTIN TIME,PTT STAT 09/03/2018 8:25 AM PHYSICIAN ASSISTANT CERTIFIED PROTHROMBIN TIME, VENOUS STAT 09/03/2018 8:25 AM PHYSICIAN ASSISTANT CERTIFIED COMPREHENSIVE METABOLIC PANEL STAT 09/03/2018 8:25 AM PHYSICIAN ASSISTANT CERTIFIED LACTIC ACID STAT 09/03/2018 8:25 AM PHYSICIAN ASSISTANT CERTIFIED CBC W/DIFF AUTOMATED STAT 09/03/2018 8:25 AM PHYSICIAN ASSISTANT CERTIFIED LIPASE STAT 09/03/2018 8:25 AM PHYSICIAN ASSISTANT CERTIFIED documented in this encounter Results * (ABNORMAL) GLUCOSE BLOOD, QNT (09/03/2018 8:46 AM PHYSICIAN ASSISTANT CERTIFIED) GLUCOSE POC 161(H) 70 - 140 MG/DL 09/03/2018 9:48 AM PHYSICIAN ASSISTANT CERTIFIED [facility] ORDERS INTERFACE 09/03/2018 8:46 AM PHYSICIAN ASSISTANT CERTIFIED 09/03/2018 9:48 AM PHYSICIAN ASSISTANT CERTIFIED us Generic Conversion Md MIR LABORATORY Final R esult [facility] ORDERS INTERFACE US * PARTIAL THROMBOPLASTIN TIME,PTT (09/03/2018 8:25 AM PHYSICIAN ASSISTANT CERTIFIED) Pathologist [facility] PTT 29.9 25.0 - 34.0 SEC 09/03/2018 9:45 AM PHYSICIAN ASSISTANT CERTIFIED [facility] Comment:THERAPEUTIC RANGE: 4 5.0-75.0 SEC PLASMA SPECIMEN / Unknown 09/03/2018 8:25 AM PHYSICIAN ASSISTANT CERTIFIED 09/03/2018 9:31 AM PHYSICIAN ASSISTANT CERTIFIED us Generic Conversion Md MIR LABORATORY Final R esult [facility] [place] [address], * PROTIME/INR, VENOUS (09/03/2018 8:25 AM PHYSICIAN ASSISTANT CERTIFIED) PROTIME 12.8 10.9 - 13.3 SEC 09/03/2018 9:45 AM PHYSICIAN ASSISTANT CERTIFIED [facility] INR 1.1 0.9 - 1.1 09/03/2018 9:45 AM PHYSICIAN ASSISTANT CERTIFIED [facility] 09/03/2018 8:25 AM PHYSICIAN ASSISTANT CERTIFIED 09/03/2018 9:31 AM PHYSICIAN ASSISTANT CERTIFIED us Generic Conversion Md MIR LABORATORY Final R eslucina Performing Organization Address [facility]/ZIP Co de Phone Number [facility] [address] [place] [id number], * (ABNORMAL) LIPASE (09/03/2018 8:25 AM PHYSICIAN ASSISTANT CERTIFIED) LIPASE 45(L) 73 - 393 UNITS/L 09/03/2018 9:58 AM PHYSICIAN ASSISTANT CERTIFIED [facility] SERUM OR PLASMA SPECIMEN / Unknown 09/03/2018 8:25 AM PHYSICIAN ASSISTANT CERTIFIED 09/03/2018 9:31 AM PHYSICIAN ASSISTANT CERTIFIED us Generic Conversion Md MIR LABORATORY Final R theo Performing Organization Address [facility] Co de Phone Number [facility] [address] [place] [address], [place] [phone] * LACTIC ACID (09/03/2018 8:25 AM PHYSICIAN ASSISTANT CERTIFIED) LACTIC ACID VENOUS 0.7 0.4 - 2.0 MMOL/L 09/03/2018 10:01 AM PHYSICIAN ASSISTANT CERTIFIED [facility] PLASMA SPECIMEN / Unknown 09/03/2018 8:25 AM PHYSICIAN ASSISTANT CERTIFIED 09/03/2018 9:31 AM PHYSICIAN ASSISTANT CERTIFIED us Generic Conversion Md MIR LABORATORY Final R eslucina Performing Organization Address [facility]/ZIP Co de Phone Number [facility] [address] [place] [phone], [place] [phone] * (ABNORMAL) COMPREHENSIVE METABOLIC PANEL (09/03/2018 8:25 AM PHYSICIAN ASSISTANT CERTIFIED) SODIUM S/P/B 137 136 - 145 MMOL/L 09/03/2018 9:58 AM PHYSICIAN ASSISTANT CERTIFIED [facility] POTASSIUM S/P/B 3.7 3.5 - 5.1 MMOL/L 09/03/2018 9:58 AM [facility] CHLORIDE S/P/B 100 98 - 107 MMOL/L 09/03/2018 9:58 AM [facility] CO2 20.9(L) 21.0 - 32.0 MMOL/L 09/03/2018 9:58 AM [facility] GLUCOSE 175(H) 70 - 140 MG/DL 09/03/2018 9:58 AM [facility] BUN 12 6 - 24 MG/DL 09/03/2018 9:58 AM [facility] CREATININE S/P/B 0.72 0.55 - 1.02 MG/DL 09/03/2018 9:58 AM [facility] CALCIUM S/P/B 8.7 8.4 - 10.5 MG/DL 09/03/2018 9:58 AM [facility] BILIRUBIN TOTAL S/P/B 0.7 0.2 - 1.0 MG/DL 09/03/2018 9:58 AM [facility] ALKALINE PHOSPHATASE S/P/B 67 37 - 98 U/L 09/03/2018 9:58 AM [facility] AST 14(L) 15 - 37 U/L 09/03/2018 9:58 AM [facility] ALT 19 14 - 59 U/L 09/03/2018 9:58 AM [facility] TOTAL PROTEIN S/P/B 7.1 6.4 - 8.2 G/DL 09/03/2018 9:58 AM [facility] ALBUMIN S/P/B 3.4 3.4 - 5.0 G/DL 09/03/2018 9:58 AM [facility] ANION GAP 16.1 MMOL/L 09/03/2018 9:58 AM [facility] Comment:REFERENCE RANGE NOT ESTABLISHED OSMOLALITY (CALC) 288 MOSM/KG 09/03/2018 9:58 AM [facility] Comment:REFERENCE RANGE NOT ESTABLISHED EGFR NON-AFR. AMER. >90 >89 ML/MIN/1 .73 M2 09/03/2018 9:58 AM [facility] EGFR AFR. AMER. >90 >89 ML/MIN/1 .73 M2 09/03/2018 9:58 AM [facility] GFR NOTES THE ESTIMATED GFR IS CALCULATED USING THE 2009 CKD-EPI EQUATION. THE FOLLOWING CATEGORIES FOR GRADING RENAL FUNCTION ARE RECOMMENDED BY THE INTERNATIONAL SOCIETY OF NEPHROLOGY (KDIGO 2012 CLINICAL PRACTICE GUIDELINE). 09/03/2018 9:58 AM [facility] Comment: G1,NORMAL OR HIGH: >89 ml/min/1.73 m2G2,MILDLY DECREASED: 60-89 ml/min/1.73 m2G3A,MILDLY TO MODERATELY DECREASED: 45-59 ml/min/1.73 m2G3B,MODERATELY TO SEVERELY DECREASED: 30-44 ml/min/1.73 m2G4,SEVERELY DECREASED: 15-29 ml/min/1.73 m2G5,KIDNEY FAILURE: <15 ml/min/1.73 m2 PLASMA SPECIMEN / Unknown 09/03/2018 8:25 AM PHYSICIAN ASSISTANT CERTIFIED 09/03/2018 9:31 AM PHYSICIAN ASSISTANT CERTIFIED us Generic Conversion Md MIR LABORATORY Final R esult [facility] [address] [place] [address], * (ABNORMAL) CBC W/DIFF AUTOMATED (09/03/2018 8:25 AM PHYSICIAN ASSISTANT CERTIFIED) WBC 6.0 4.5 - 10.8 x10'3/uL 09/03/2018 9:34 AM [facility] RBC 4.09(L) 4.10 - 5.40 x10'6/uL 09/03/2018 9:34 AM [facility] HGB 12.7 12.0 - 16.0 G/DL 09/03/2018 9:34 AM [facility] HCT 37.7 36.0 - 47.0 % 09/03/2018 9:34 AM [facility] MCV 92.2 78.0 - 100.0 FL 09/03/2018 9:34 AM [facility] MCH 31.1(H) 27.0 - 31.0 PG 09/03/2018 9:34 AM [facility] MCHC 33.7 33.0 - 36.0 G/DL 09/03/2018 9:34 AM [facility] RDW 12.4 11.5 - 14.5 % 09/03/2018 9:34 AM [facility] PLT 244 150 - 350 x10'3/uL 09/03/2018 9:34 AM [facility] MPV 9.9 7.4 - 10.4 FL 09/03/2018 9:34 AM [facility] SEG NEUTROPHILS 64.2 % 9 9:34 AM [facility] LYMPHOCYTES 26.0 % 09/03/2018 9:34 AM [facility] MONOCYTES 7.5 % 09/03/2018 9:34 AM [facility] EOSINOPHILS 1.3 % 09/03/2018 9:34 AM [facility] BASOPHILS 0.7 % 09/03/2018 9:34 AM [facility] IMMATURE GRANS % 0.3 % 09/03/19 19 9:34 AM [facility] NRBC 0.0 % 09/03/2018 9:34 AM [facility] ABS. NEUTROPHILS 3.87 1.60 - 8.30 x10'3/uL 09/03/2018 9:34 AM [facility] ABS. LYMPHOCYTES 1.57 0.80 - 4.70 x10'3/uL 09/03/2018 9:34 AM [facility] ABS. MONOCYTES 0.45 0.00 - 1.50 x10'3/uL 09/03/2018 9:34 AM [facility] ABS. EOSINOPHILS 0.08 0.00 - 0.40 x10'3/uL 09/03/2018 9:34 AM [facility] ABS. BASOPHILS 0.04 0.00 - 0.20 x10'3/uL 09/03/2018 9:34 AM [facility] ABS. IMMATURE GRANULOCYTES 0.02 0.00 - 0.03 x10'3/uL 09/03/2018 9:34 AM PHYSICIAN ASSISTANT CERTIFIED [facility] ABS. NUCLEATED RBC'S 0.00 0.00 x10'3/uL 09/03/2018 9:34 AM PHYSICIAN ASSISTANT CERTIFIED [facility] OTHER (type in comments) 09/03/2018 8:25 AM PHYSICIAN ASSISTANT CERTIFIED 09/03/2018 9:31 AM PHYSICIAN ASSISTANT CERTIFIED Comment:WHOLE BLOOD SAMPLE us Generic Conversion Md MIR LABORATORY Final R esult [facility] [address] [place] [address], documented in this encounter Visit Diagnoses Diagnosis Vomiting Vomiting alone documented in this encounter
--- OUTSIDE RECORDS SUMMARY | 2024-08-03 01:11 | XMS_ITS | Encounter Summary ---
Author Organization [facility] Address [address] [facility] [place] [address] [place] [address] Care Team Providers Care Cork Floor Installer Name Role Phone Unavailable Primary Care Provider Unavailabl e Encounter Details Date Type Department Care Team (Late st Contact Info) Description 01/26/2018 Abstract [place] [address] [place] [address] Nahum Bang MD [address] [address] Social History Tobacco Use Types [...] Comments URINALYSIS WI REFLEX TO CULTURE STAT 01/26/2018 4:42 PM CDT TEST URINE STAT 01/26/2018 4:42 PM CDT COMPREHENSIVE METABOLIC PANEL STAT 01/26/2018 4:34 PM CDT CBC W/DIFF AUTOMATED Routine 01/26/2018 4:34 PM CDT GLUCOSE BLOOD, QNT Routine 01/26/2018 3: 50 PM CDT documented in this encounter Results * (ABNORMAL) URINALYSIS WI REFLEX TO CULTURE (01/26/2018 4:42 PM CDT) COLOR (U) YELLOW 01/26/2018 5:05 PM CDT [facility] TRANSPARENCY CLEAR 01/26/2018 5:05 PM CDT [facility] SPECIFIC GRAVITY (U) 1.015 1.000 - 1.025 01/26/2018 5:05 PM CDT [facility] U PH 6.0 5.0 - 8.0 01/26/2018 5:05 PM CDT [facility] LEUKOCYTES (U) NEGATIVE NEGATIVE 01/26/2018 5:05 PM CDT [facility] NITRITES NEGATIVE NEGATIVE 01/26/2018 5:05 PM CDT [facility] PROTEIN (U) NEGATIVE NEGATIVE 01/26/2018 5:05 PM CDT [facility] URINE GLUCOSE NEGATIVE NEGATIVE 01/26/2018 5:05 PM CDT [facility] KETONES MG/DL (U) NEGATIVE NEGATIVE 01/26/2018 5:05 PM CDT [facility] UROBILINOGEN 0.2 <1.0 EU/DL 01/26/2018 5:05 PM CDT [facility] BILIRUBIN (U) NEGATIVE NEGATIVE 01/26/2018 5:05 PM CDT [facility] BLOOD (U) TRACE(A) NEGATIVE 01/26/2018 5:05 PM CDT [facility] WBC/HPF 0-5 0 - 5 /HPF 01/26/2018 5:05 PM CDT [facility] RBC/HPF 0-5 0 - 5 /HPF 01/26/2018 5:05 PM CDT [facility] EPI/HPF MANY /LPF 01/26/2018 5:05 PM CDT [facility] BACTERIA (U) 1+ /HPF 01/26/2018 5:05 PM CDT [facility] MUCUS PRESENT 01/26/2018 5:05 PM CDT [facility] CULTURE & SENSITIVITY INDICATED? NOT INDICATED 01/26/2018 5:05 PM CDT [facility] OTHER (type in comments) 01/26/2018 4:42 PM CDT 01/26/2018 4:54 PM CDT Comment:URINE SPECIMEN~URINE SPECIMEN us Generic Conversion Md MIR URINE ORDERABLES Final Result Performing Organization Address City/[facility]/ZIP Co de Phone Number [facility] [address] [place] [address], [place] [phone] * TEST URINE (01/26/2018 4:42 PM CDT) PREG TEST NEGATIVE 01/26/2018 4:59 PM CDT [facility] SPECIFIC GRAVITY (U) 1.015 01/26/2018 4:59 PM CDT [facility] URINE SPECIMEN / Unknown 01/26/2018 4:42 PM CDT 01/26/2018 4:54 PM CDT us Generic Conversion Md MIR URINE ORDERABLES Final Result Performing Organization Address [facility] Co de Phone Number [facility] [address] [place] [address], [place] [phone] * (ABNORMAL) COMPREHENSIVE METABOLIC PANEL (01/26/2018 4:34 PM CDT) GLUCOSE 161(H) 70 - 99 MG/DL 01/26/2018 4:56 PM CDT [facility] BUN 9 7 - 19 MG/DL 01/26/2018 4:56 PM CDT [facility] CREATININE S/P/B 0.77 0.57 - 1.11 MG/DL 01/26/2018 4:56 PM CDT [facility] SODIUM S/P/B 138 136 - 145 MMOL/L 01/26/2018 4:56 PM CDT [facility] POTASSIUM S/P/B 3.6 3.5 - 5.1 MMOL/L 01/26/2018 4:56 PM CDT [facility] CHLORIDE S/P/B 103 98 - 107 MMOL/L 01/26/2018 4:56 PM CDT [facility] CO2 25.0 22.0 - 29.0 MMOL/L 01/26/2018 4:56 PM CDT [facility] CALCIUM S/P/B 9.4 8.4 - 10.2 MG/DL 01/26/2018 4:56 PM CDT [facility] BILIRUBIN TOTAL S/P/B 0.5 0.2 - 1.2 MG/DL 01/26/2018 4:56 PM CDT [facility] TOTAL PROTEIN S/P/B 7.3 6.0 - 8.3 G/DL 01/26/2018 4:56 PM CDT [facility] ALBUMIN S/P/B 4.2 3.5 - 5.2 G/DL 01/26/2018 4:56 PM T [facility] AST 19 5 - 34 U/L 01/26/2018 4:56 PM T [facility] ALT 32 0 - 55 U/L 01/26/2018 4:56 PM T [facility] ALKALINE PHOSPHATASE S/P/B 97 50 - 136 U/L 01/26/2018 4:56 PM T [facility] OSMOLALITY (CALC) 278 275 - 300 MOSM/KG 01/26/2018 4:56 PM T [facility] A/G RATIO 1.4 1.0 - 1.6 RATIO 01/26/2018 4:56 PM T [facility] BUN CREATININE RATIO 11.7(L) 12 - 20 01/26/2018 4:56 PM T [facility] ANION GAP 10.0 7 - 16 MMOL/L 01/26/2018 4:56 PM T [facility] EGFR NON-AFR. AMER. >60 >60 ML/MIN/1.7 3 M2 01/26/2018 4:56 PM T [facility] EGFR AFR. AMER. >60 >60 ML/MIN/1.7 3 M2 01/26/2018 4:56 PM CDT [facility] 01/26/2018 4:34 PM CDT 01/26/2018 4:36 PM CDT us Generic Conversion Md MIR LABORATORY Final R esult [facility] [address] [place] [address], * CBC W/DIFF AUTOMATED (01/26/2018 4:34 PM CDT) WBC 5.2 4.5 - 10.8 x10'3/uL 01/26/2018 4:46 PM CDT [facility] RBC 4.23 4.10 - 5.40 x10'6/uL 01/26/2018 4:46 PM CDT [facility] HGB 12.8 12.0 - 16.0 G/DL 01/26/2018 4:46 PM CDT [facility] HCT 37.7 36.0 - 47.0 % 01/26/2018 4:46 PM CDT [facility] MCV 89.1 78.0 - 100.0 FL 01/26/2018 4:46 PM CDT [facility] MCH 30.3 27.0 - 31.0 PG 01/26/2018 4:46 PM CDT [facility] MCHC 34.0 33.0 - 36.0 G/DL 01/26/2018 4:46 PM CDT [facility] RDW 12.1 11.5 - 14.5 % 01/26/2018 4:46 PM CDT [facility] PLT 288 150 - 350 x10'3/uL 01/26/2018 4:46 PM CDT [facility] MPV 9.5 7.4 - 10.4 FL 01/26/2018 4:46 PM CDT [facility] SEG NEUTROPHILS 50 % 8 5:03 PM CDT [facility] LYMPHOCYTES 45 % 01/26/2018 5:03 PM CDT [facility] MONOCYTES 3 % 01/26/2018 5:03 PM CDT [facility] EOSINOPHILS 2 % 01/26/2018 5:03 PM CDT [facility] ABS. NEUTROPHILS CALCULATED 2.60 1.60 - 8.30 x10'3/uL 01/26/2018 5:03 PM CDT [facility] ABS. LYMPHOCYTES 2.34 0.80 - 4.70 x10'3/uL 01/26/2018 5:03 PM CDT [facility] ABS. MONOCYTES 0.16 0.10 - 1.50 x10'3/uL 01/26/2018 5:03 PM CDT [facility] ABS. EOSINOPHILS 0.10 0.00 - 0.40 x10'3/uL 01/26/2018 5:03 PM CDT [facility] PLT MORPH. NORMAL 01/26/2018 5:03 PM CDT [facility] RBC MORPHOLOGY NORMAL 01/26/2018 5:03 PM CDT [facility] WBC MORPHOLOGY ATYPICAL LYMPHS 01/26/2018 5:03 PM CDT [facility] OTHER (type in comments) 01/26/2018 4:34 PM CDT 01/26/2018 4:36 PM CDT Comment:WHOLE BLOOD SAMPLE us Generic Conversion [facility] Final R esult [facility] [address] [phone] * (ABNORMAL) GLUCOSE BLOOD, QNT (01/26/2018 3:50 PM CDT) GLUCOSE POC 157(H) 70 - 99 MG/DL 01/26/2018 3:53 PM CDT [facility] ORDERS INTERFACE 01/26/2018 3:50 PM CDT 01/26/2018 3:53 PM CDT us Generic Conversion [facility] Final R esult [facility] ORDERS INTERFACE US documented in this encounter Visit Diagnoses Diagnosis Nausea with vomiting documented in this encounter
--- OUTSIDE RECORDS SUMMARY | 2024-08-03 01:11 | XMS_ITS | Encounter Summary ---
Author Organization [facility] Address [facility] [place] [address] [place] [address] Care Team Providers Care Mask Designer Name Role Phone Unavailable Primary Care Provider Unavailabl e Encounter Details Date Type Department Care Team (Latest Contact Info) Description 04/08/2018 Abstract [facility] , Carolee Duenas MD Social History Tobacco Use Types Packs/Day Years [...] Procedure Name Priority Date/Time Associated Diagnosis Comments CYTOPATH CERV/VAG THIN LAYER Routine 04/08/2018 6:52 AM CDT documented in this encounter Results * Cytopath Cerv/Vag Thin Layer (04/08/2018 6:52 AM CDT) PAP SMEAR [facility] ?[address] ?[place] [id number] ? Department of Pathology ? Pathology Report ? CERVICAL/VAGINAL PAP SMEAR REPORT Name: STEPH ROBERTO ? Age: 5 1990 (Age: 27) ? Location: [id number] Sex: F ?Collected Date: 04/08/2018 Hospital #: [id number] ?Date Received: 04/11/2018 Date Reported: 04/12/2018 Provider: SABA JUDGE ?[facility] INTERPRETATION CERVICAL/ENDOCERVIC AL, PAP TEST: ? SATISFACTORY FOR EVALUATION. ENDOCERVICAL/TRANSF ORMATION ZONE COMPONENT PRESENT. ? NEGATIVE FOR INTRAEPITHELIAL LESION OR MALIGNANCY. SHIFT IN BACTERIAL DENNIS SUGGESTIVE OF BACTERIAL VAGINOSIS. Electronically Signed Out Chet Durant M.D. Brooke Stoll, [place] [facility] CLINICAL HISTORY HEALTH MAINTENANCE ThinPrep Pap Test [...] ARMENTA Final Result [facility] TO EPIC CONVERSION documented in this encounter Visit Diagnoses Not on filedocumented in this encounter
--- OUTSIDE RECORDS SUMMARY | 2024-08-03 01:11 | XMS_ITS | Encounter Summary ---
Author Organization [facility] Address [facility] access hospital[facility] [place] [address] [place] [address] Care Team Providers Care Furniture Shampooer Name Role Phone Unavailable Primary Care Provider Unavailabl e Encounter Details Date Type Department Care Team (Late st Contact Info) Description 12/09/[address] [address] [place] [address] Isaias Grier MD [address] [place] [phone] Social History Tobacco Use Types Packs/Day [...] as of this encounter Visit Diagnoses Diagnosis Syncope and collapse documented in this encounter
--- OUTSIDE RECORDS SUMMARY | 2024-08-03 01:11 | XMS_ITS | Encounter Summary ---
Author Organization [facility] Address [facility] [place] [address] [place] [address] Care Team Providers Care Manufacturing Maintenance Manager Name Role Phone Unavailable Primary Care Provider Unavailabl e Encounter Details Date Type Department Care Team (Late st Contact Info) Description 10/21/[address] [facility] [address] [facility] [address] [place] [address] Isaias Grier MD [address] [place] [phone] Social History Tobacco Use Types Packs/Day [...] Procedure Name Priority Date/Time Associated Diagnosis Comments HCG QUANT (SERUM)-CHORIONIC GONADOTROPIN Routine 10/21/2018 11:55 AM CDT documented in this encounter Results * HCG QUANT (SERUM)-CHORIONIC GONADOTROPIN (10/21/2018 11:55 AM CDT) HCG QUANTITATIVE <1 0.0 - 6.0 MIU/ML 10/21/2018 12:22 PM CDT [facility] Comment:NON- FEMALE 0-6 SERUM OR PLASMA SPECIMEN / Unknown 10/21/2018 11:55 AM CDT 10/21/2018 11:58 AM CDT us Generic Conversion Md [facility] Final R esult [facility] [address] [place] [address], documented in this encounter Visit Diagnoses Diagnosis Amenorrhea Absence of menstruation documented in this encounter
--- OUTSIDE RECORDS SUMMARY | 2024-08-03 01:11 | XMS_ITS | Encounter Summary ---
Author Organization [facility] Address Formerly [facility], [facility] [facility] [place] [address] [place] [address] Care Team Providers Care Electronics Technician Apprentice Name Role Phone Isaias Grier MD Primary Care Provider [phone] Reason for Referral * Imaging (Emergency) - Closed Specialty Diagnoses / Procedures Referred By Alexis salazar Referred To Contact RADIOLOGY Procedures CT HEAD WO CON Sami Aguilera MD Phone: tel: fax: Referral ID Status Reason Start Date Expiration Date Visits Re quested Visits Authorized [id number] Closed 06/10/2019 07/10/2020 1 1 ERMAKER WELDER Reason for Visit * Reason Comments Abdominal Pain Encounter Details Date Type Department Care Team (Late st Contact Info) Description 06/10/2019 5:57 AM BOILERMAKER WELDER - 06/10/2019 7:42 AM BOILERMAKER WELDER Emergency [facility] [address] [place] [address] [place] [address] Sami Aguilera MD [address] [place] [id number] Abdominal Pain Discharge Disposition: Home or [...] Sign Reading Time Taken Comments Blood Pressure 98/75 06/10/2019 7:00 AM BOILERMAKER WELDER Pulse 95 06/10/2019 6:29 AM BOILERMAKER WELDER Temperature 36.3 ??C (97.3 ??F) 06/10/2019 5:50 AM CS T Respiratory Rate 16 06/10/2019 6:29 AM BOILERMAKER WELDER Oxygen Saturation 100% 06/10/2019 7:30 AM BOILERMAKER WELDER Inhaled Oxygen Concentration - - Weight 50.1 kg (110 lb 6.4 oz) 06/10/2019 5:50 A M BOILERMAKER WELDER Height 165.1 cm (5' 5 ) 06/10/2019 5:50 AM BOILERMAKER WELDER Body Mass Index 18.37 06/10/2019 5:50 AM BOILERMAKER WELDER documented in this encounter Discharge Instructions * Attachments The following attachments cannot be sent through Care Everywhere. * Headache, Adult (Uzbek) * Hyperglycemia Discharge Instructions, Adult (Uzbek) documented in this encounter Medications at Time [...] A DAY AND NEEDED 1 7 03/01/20 promethazine 25 MG tablet Take 1 tablet (25 mg total) by mouth every 6 (six) hours as needed for Nausea. 10 tablet 9 06/17/20 traMADol 50 MG tablet TAKE 1 TO 2 TABLETS BY MOUTH TWO TIMES A DAY 0 9 10/10/19 20 documented as of this encounter ED Notes * Fela Rojas RN - 06/10/2019 6:54 AM CST Report given to RYAN Martin ERMAKER WELDER * Fela Rojas RN - 06/10/2019 6:48 AM CST LEFT ER 0620/RETURN TO ER 0625 ERMAKER WELDER * Fela Rojas RN - 06/10/2019 6:48 AM CST LEFT ER 0620/RETURN TO ER 0625 ERMAKER WELDER * Fela Rojas RN - 06/10/2019 6:47 AM CST LEFT ER 0620/RETURN TO ER 0625 ERMAKER WELDER * Fela Rojas RN - 06/10/2019 6:47 AM CST LEFT ER 0620/RETURN TO ER 0625 ERMAKER WELDER * Fela Rojas RN - 06/10/2019 6:24 AM CST Back from CT ERMAKER WELDER * Fela Rojas RN - 06/10/2019 6:20 AM CST Down to CT ERMAKER WELDER * Soheila Trujillo - 06/10/2019 5:52 AM CST Blood Glucose obtained. 265. ERMAKER WELDER * Fela Rojas RN - 06/10/2019 5:50 AM CST Arrives via EMS, abdominal pain, n/v and head ache. States she might of had a seizure last night, but is unaware. Is a type 1 DM, states her blood sugar has been high. ERMAKER WELDER * Nahum Bang MD - 06/10/2019 5:49 AM CST eMERGENCY dEPARTMENT eNCOUnter CHIEF COMPLAINT Chief Complaint Patient presents with ??? Abdominal Pain HPI HPI Steph Camacho is a 28-year-old female who presents to the ER with a complaint of headache and vomiting by ambulance. Patient was seen by me 6 days ago with abdominal pain and states she feels similar now although she did have abdominal pain she is having a headache. This apparently started last night. She also states her daughter told her that for period of time she was not focused it may havebriefly passed out. She denies fevers or chills but is been having months of left-sided jaw pain. No bowel or bladder symptoms or other complaints. EMS found her blood sugar in the 200s and administered intravenous fluids and Zofran. ALLERGIES Allergies Allergen Reactions ??? Peanut-Containing Drug Products Anaphylaxis ??? Latex Hives CURRENT MEDICATIONS Current Outpatient Medications Medication Sig ??? B-D UF III MINI PEN NEEDLES [...] SUGAR FOUR TIMES A DAY AND NEEDED ??? promethazine 25 MG tablet Take 1 tablet (25 mg total) by mouth every 6 (six) hours as needed for Nausea. PAST MEDICAL HISTORY Past Medical History: Diagnosis [...] file Gets together: Not on file Attends yazdanism service: Not on file Active member of [...] HPI. PHYSICAL EXAM Physical Exam Filed Vitals: 06/10/19 0550 06/10/19 0600 06/10/19 0630 BP: 122/86 98/79 110/60 Pulse: 94 Resp: 16 Temp: 97.3 ??F (36.3 ??C) TempSrc: Temporal SpO2: 100% 100% 100% Weight: 50.1 kg (110 lb 6.4 oz) Height: 5' 5 (1.651 m) The patient is a well developed and well nourished adult female in no distress, alert and oriented. HEENT: PERRL, EOMI Nose without drainage Throat without lesions, mucous membranes slightly dry NECK: Supple without adenopathy or rigidity CHEST: Lungs clear and equal to auscultation Heart regular rate and rhythm without murmur ABD: Soft, NABS, non tender EXT: No clubbing, cyanosis, edema NEURO: CN II-XII intact, no focal weakness SKIN: No rash or significant lesions EKG RADIOLOGY CT HEAD WO CON Final Result by User, [id number] (06/10 639) EXAMINATION: CT HEAD WITHOUT CONTRAST DATE: 06/10/2019 6:17 AM INDICATION: Headache COMPARISON: None available at the time of this dictation. TECHNIQUE: Noncontrast imaging obtained from the vertex to the skull base. CT dose lowering techniques were used, to include: automated exposure control, adjustment for patient size, and or use of iterative reconstruction.? FINDINGS: Soft Tissues: No significant soft tissue abnormality. Skull: No underlying skull fracture or radiopaque foreign body. Sinuses: Paranasal sinuses are clear. Mastoids: Mastoid air cells are clear. Globes and Orbits: Globes and orbits are intact. Brain: No acute hemorrhage. No midline shift, masses, or mass effect. No evidence of acute infarct by noncontrast CT. Ventricles and Cisterns: Ventricular size and configuration is within normal limits. Basal cisterns are patent. No abnormal extra-axial fluid collection. Senescent Changes: None. IMPRESSION: No acute intracranial abnormality. Electronically signed by: Javon Davis M.D. 06/10/2019 6:38:00 AM LABS Results for orders placed or performed during the hospital encounter of 06/10/19 CBC W/DIFF AUTOMATED Result Value Ref Range WBC 7.2 4.5 - 10.8 x10'3/uL RBC 4.51 4.10 - 5.40 x10'6/uL HGB 14.0 12.0 - 16.0 G/DL HCT 40.8 36.0 - 47.0 % MCV 90.5 78.0 - 100.0 FL MCH 31.0 27.0 - 31.0 PG MCHC 34.3 33.0 - 36.0 G/DL RDW 11.9 11.5 - 14.5 % PLT 282 150 - 350 x10'3/uL MPV 10.0 7.4 - 10.4 FL Differential Comment NORMAL REFERENCE RANGE NOT ESTABLISHED FOR THE PROPORTIONAL LEUKOCYTE DIFFERENTIAL. SEG NEUTROPHILS 65.7 % LYMPHOCYTES 26.1 % MONOCYTES 6.3 % EOSINOPHILS 1.1 % BASOPHILS 0.7 % IMMATURE GRANS 0.1 % NRBC 0.0 % ABS. NEUTROPHILS 4.71 1.60 - 8.30 x10'3/uL ABS. LYMPHOCYTES 1.87 0.80 - 4.70 x10'3/uL ABS. MONOCYTES 0.45 0.00 - 1.50 x10'3/uL ABS. EOSINOPHILS 0.08 0.00 - 0.40 x10'3/uL ABS. BASOPHILS 0.05 0.00 - 0.20 x10'3/uL ABS. IMMATURE GRANULOCYTES 0.01 0.00 - 0.03 x10'3/uL ABS. NUCLEATED RBC'S 0.00 0.00 x10'3/uL COMPREHENSIVE METABOLIC PANEL Result Value Ref Range SODIUM 133 (L) 136 - 145 MMOL/L POTASSIUM 4.1 3.5 - 5.1 MMOL/L CHLORIDE 99 98 - 107 MMOL/L CO2 22.0 21.0 - 32.0 MMOL/L GLUCOSE 288 (H) 70 - 99 MG/DL BUN 22 6 - 24 MG/DL CREATININE 0.75 0.55 - 1.02 MG/DL CALCIUM 8.8 8.4 - 10.5 MG/DL TOTAL BILIRUBIN 0.6 0.2 - 1.0 MG/DL ALK PHOS 76 37 - 98 U/L AST 18 15 - 37 U/L ALT 23 14 - 59 U/L TOTAL PROTEIN 7.4 6.4 - 8.2 G/DL ALBUMIN 3.7 3.4 - 5.0 G/DL ANION GAP 12.0 5.0 - 15.0 MMOL/L OSMOLALITY (CALC) 290 MOSM/KG eGFR Non-Afr. Amer. >90 >89 ML/MIN/1.73 M2 eGFR Afr. Amer. >90 >89 ML/MIN/1.73 M2 GFR NOTES THE ESTIMATED GFR IS CALCULATED USING THE 2009 CKD-EPI EQUATION. THE FOLLOWING CATEGORIES FOR GRADING RENAL FUNCTION ARE RECOMMENDED BY THE INTERNATIONAL SOCIETY OF NEPHROLOGY (KDIGO 2012 CLINICAL PRACTICE GUIDELINE). LIPASE Result Value Ref Range LIPASE 84 73 - 393 UNITS/L BETA-HYDROXYBUTYRATE Result Value Ref Range BETA-HYDROXYBUTYRATE 2.9 (H) 0.0 - 0.3 MMOL/L Blood gas, venous Result Value Ref Range O2 Sat.-Venous 93 (H) 40 - 70 % pH-Venous 7.35 7.35 - 7.45 PC02 VENOUS 42.2 41.0 - 51.0 MMHG PO2 VENOUS 74.0 (H) 20.0 - 40.0 MM HG Base Deficit,Venous 2.5 MMOL/L Bicarb-Venous 22.5 22.0 - 29.0 MMOL/L TCO2 23.8 (L) 25.0 - 29.0 MMOL/L LITER FLOW AIR ED MEDICATIONS Medications morphine injection 4 mg (4 mg Intravenous Given 06/10/19625) sodium chloride 0.9% bolus infusion SOLN 1,000 mL (1,000 mLs Intravenous New Bag 06/10/19626) promethazine (PHENERGAN) injection 12.5 mg (12.5 mg Intravenous Given 06/10/19635) PROCEDURES Procedures CONSULTS: ED COURSE & MEDICAL DECISION MAKING MDM Patient with headache and vomiting with a history of insulin-dependent diabetes. Work-up thus far show some ketosis but there is no acidosis or elevated anion gap. CT scan is negative. The end of my shift is approaching and the patient is started her second liter of saline. I anticipate that she will be able to go home at some point in the near future although it be nice to check her urinalysis first. We treated her pain and nausea and I am recommending again follow-up with her primary care physician. Patient is endorsed the next emergency physician pending urinalysis. 7.27 am ua negative will discharge home. FINAL IMPRESSION SNOMED CT(R) 1. Headache HEADACHE 2. Hyperglycemia HYPERGLYCEMIA Isaias Grier MD [address] [place] [phone] Schedule an appointment as soon as possible for a visit New Prescriptions PROMETHAZINE 25 MG TABLET Take 1 tablet (25 mg total) by mouth every 6 (six) hours as needed for Nausea. Sami Aguilera MD 06/10/19 0653 Nahum Bang MD 06/10/19 0728 ERMAKER WELDER ERMAKER WELDER documented in this encounter Plan of Treatment Not on file documented as of this encounter Procedures Procedure Name Priority Date/Time Associated Diagnosis Comments URINALYSIS WI REFLEX TO CULTURE STAT 06/10/2019 7:10 AM BOILERMAKER WELDER TEST URINE STAT 06/10/2019 7:[address] HEAD WO CON STAT 06/10/2019 6:28 AM BOILERMAKER WELDER BETA-HYDROXYBUTYRATE STAT 06/10/2019 6:02 AM BOILERMAKER WELDER BLOOD GAS, VENOUS STAT 06/10/2019 6:0 2 AM BOILERMAKER WELDER COMPREHENSIVE METABOLIC PANEL STAT 06/10/2019 6:02 AM BOILERMAKER WELDER CBC W/DIFF AUTOMATED STAT 06/10/2019 6:02 AM BOILERMAKER WELDER LIPASE STAT 06/10/2019 6:02 AM BOILERMAKER WELDER documented in this encounter Results * (ABNORMAL) URINALYSIS WI REFLEX TO CULTURE (06/10/2019 7:10 AM BOILERMAKER WELDER) COLOR (U) YELLOW 06/10/2019 7:24 AM BOILERMAKER WELDER [facility] TRANSPARENCY CLEAR 06/10/2019 7:24 AM BOILERMAKER WELDER [facility] SPECIFIC GRAVITY (U) 1.025 1.000 - 1.025 06/10/2019 7:24 AM BOILERMAKER WELDER [facility] U PH 5.5 5.0 - 8.0 06/10/2019 7:24 AM BOILERMAKER WELDER [facility] LEUKOCYTES (U) NEGATIVE NEGATIVE 06/10/2019 7:24 AM BOILERMAKER WELDER [facility] NITRITES NEGATIVE NEGATIVE 06/10/2019 7:[address] [facility] PROTEIN (U) NEGATIVE NEGATIVE 06/10/2019 7:[address] [facility] URINE GLUCOSE 2+(A) NEGATIVE 06/10/2019 7:24 AM BOILERMAKER WELDER [facility] KETONES MG/DL (U) 2+(A) NEGATIVE 06/10/2019 7:24 AM BOILERMAKER WELDER [facility] UROBILINOGEN 0.2 <1.0 EU/DL 06/10/2019 7:[address] [facility] BLOOD (U) NEGATIVE NEGATIVE 06/10/2019 7:[address] [facility] WBC/HPF 0-5 0 - 5 /HPF 06/10/2019 7:24 AM BOILERMAKER WELDER [facility] EPI/HPF MANY /LPF 06/10/2019 7:24 AM BOILERMAKER WELDER [facility] BACTERIA (U) 1+ /HPF 06/10/2019 7:[address] [facility] BILIRUBIN (U) NEGATIVE NEGATIVE 06/10/2019 7:24 AM BOILERMAKER WELDER [facility] CULTURE & SENSITIVITY INDICATED? NOT INDICATED 06/10/2019 7:24 AM BOILERMAKER WELDER [facility] URINE SPECIMEN FROM URETHRA / Unknown 06/10/2019 7:10 AM BOILERMAKER WELDER Sami Aguilera MD URINE [place] [address], * TEST URINE (06/10/2019 7:10 AM BOILERMAKER WELDER) PREG TEST NEGATIVE 06/10/2019 7:24 AM BOILERMAKER WELDER [facility] SPECIFIC GRAVITY (U) 1.025 06/10/2019 7:24 AM BOILERMAKER WELDER [facility] URINE SPECIMEN FROM URETHRA / Unknown 06/10/2019 7:10 AM BOILERMAKER WELDER us Sami Aguilera MD URINE ORDERABLES Final Result [facility] [address] [place] [address], [place] [phone] * CT HEAD WO CON (06/10/2019 6:28 AM BOILERMAKER WELDER) Anatomical Region Laterality Modality Head Computed Tomogra phy 06/10/2019 6:36 AM BOILERMAKER WELDER Impressions 06/10/2019 6:38 AM BOILERMAKER WELDER IMPRESSION: No acute intracranial abnormality. Electronically signed by: ??Javon Davis M.D. 06/10/2019 6:38:00 AM Narrative 06/10/2019 6:38 AM BOILERMAKER WELDER EXAMINATION: CT HEAD WITHOUT CONTRAST DATE: 06/10/2019 6:17 AM INDICATION: Headache COMPARISON: None available at the time of this dictation. TECHNIQUE: Noncontrast imaging obtained from the vertex to the skull base. ??CT dose lowering techniques were used, to include: automated exposure control, adjustment for patient size, and or use of iterative reconstruction.? FINDINGS: Soft Tissues: No significant soft tissue abnormality. Skull: No underlying skull fracture or radiopaque foreign body. Sinuses: Paranasal sinuses are clear. Mastoids: Mastoid air cells are clear. Globes and Orbits: Globes and orbits are intact. Brain: No acute hemorrhage. ??No midline shift, masses, or mass effect. ??No evidence of acute infarct by noncontrast CT. Ventricles and Cisterns: Ventricular size and configuration is within normal limits. Basal cisterns are patent. No abnormal extra-axial fluid collection. Senescent Changes: None. Procedure Note Javon Davis MD - 06/10/2019 EXAMINATION: CT HEAD WITHOUT CONTRAST DATE: 06/10/2019 6:17 AM INDICATION: Headache COMPARISON: None available at the time of this dictation. TECHNIQUE: Noncontrast imaging obtained from the vertex to the skull base.CT dose lowering techniques were used, to include: automated exposurecontrol, adjustment for patient size, and or use of iterativereconstruction.? FINDINGS: Soft Tissues: No significant soft tissue abnormality. Skull: No underlying skull fracture or radiopaque foreign body. Sinuses: Paranasal sinuses are clear. Mastoids: Mastoid air cells are clear. Globes and Orbits: Globes and orbits are intact. Brain: No acute hemorrhage. No midline shift, masses, or mass effect. Noevidence of acute infarct by noncontrast CT. Ventricles and Cisterns: Ventricular size and configuration is withinnormal limits. Basal cisterns are patent. No abnormal extra-axial fluidcollection. Senescent Changes: None. IMPRESSION: No acute intracranial abnormality. Electronically signed by: Javon Davis M.D. 06/10/2019 6:38:00 AM Sami Aguilera MD CT Final Result * (ABNORMAL) Blood gas, venous (06/10/2019 6:02 AM BOILERMAKER WELDER) O2 SAT VENOUS 93(H) 40 - 70 % 06/10/2019 6:12 AM BOILERMAKER WELDER [facility] PH VENOUS 7.35 7.35 - 7.45 06/10/2019 6:[address] [facility] PCO2 VENOUS 42.2 41.0 - 51.0 MMHG 06/10/2019 6:[address] [facility] PO2 VENOUS 74.0(H) 20.0 - 40.0 MM HG 06/10/2019 6:[address] [facility] BASE DEFICIT VENOUS 2.5 MMOL/L 06/10/2019 6:[address] [facility] BICARB VENOUS 22.5 22.0 - 29.0 MMOL/L 06/10/2019 6:[address] [facility] TCO2 23.8(L) 25.0 - 29.0 MMOL/L 06/10/2019 6:[address] [facility] LITER FLOW AIR 06/10/2019 6:[address] [facility] Blood specimen (specimen) 06/10/2019 6:02 AM BOILERMAKER WELDER Sami Aguilera MD LABORATORY Final Result [facility] [address] [place] [address], * (ABNORMAL) BETA-HYDROXYBUTYRATE (06/10/2019 6:02 AM BOILERMAKER WELDER) BETA-HYDROXYBU TYRATE 2.9(H) 0.0 - 0.3 MMOL/L 06/10/2019 6:12 AM BOILERMAKER WELDER [facility] 06/10/2019 6:02 AM BOILERMAKER WELDER us Sami Aguilera MD LABORATORY Final Result [facility] [address] [place] [address], * LIPASE (06/10/2019 6:02 AM BOILERMAKER WELDER) LIPASE 84 73 - 393 UNITS/L 06/10/2019 6:[address] [facility] 06/10/2019 6:02 AM BOILERMAKER WELDER Sami Aguilera MD LABORATORY Final Result Performing Organization Address City/[facility]/ZIP Co de Phone Number [facility] [address] [place] [address], * (ABNORMAL) COMPREHENSIVE METABOLIC PANEL (06/10/2019 6:02 AM BOILERMAKER WELDER) SODIUM S/P/B 133(L) 136 - 145 MMOL/L 06/10/2019 6:[address] [facility] POTASSIUM S/P/B 4.1 3.5 - 5.1 MMOL/L 06/10/2019 6:[address] [facility] CHLORIDE S/P/B 99 98 - 107 MMOL/L 06/10/2019 6:[address] [facility] CO2 22.0 21.0 - 32.0 MMOL/L 06/10/2019 6:[address] [facility] GLUCOSE 288(H) 70 - 99 MG/DL 06/10/2019 6:[address] [facility] Comment: FASTING GLUCOSE 100 TO 125 MG/DL IS CONSISTENT WITH IMPAIRED FASTING GLUCOSE. FASTING GLUCOSE >125 MG/DL IS CONSISTENT WITH DIABETES. RANDOM GLUCOSE >200 MG/DL WITH HYPERGLYCEMIC SYMPTOMS IS CONSISTENT WITH DIABETES. PER ADA GUIDELINES BUN 22 6 - 24 MG/DL 06/10/2019 6:[address] [facility] CREATININE S/P/B 0.75 0.55 - 1.02 MG/DL 06/10/2019 6:[address] [facility] CALCIUM S/P/B 8.8 8.4 - 10.5 MG/DL 06/10/2019 6:[address] [facility] BILIRUBIN TOTAL S/P/B 0.6 0.2 - 1.0 MG/DL 06/10/2019 6:[address] [facility] ALKALINE PHOSPHATASE S/P/B 76 37 - 98 U/L 06/10/2019 6:[address] [facility] AST 18 15 - 37 U/L 06/10/2019 6:[address] [facility] ALT 23 14 - 59 U/L 06/10/2019 6:[address] [facility] TOTAL PROTEIN S/P/B 7.4 6.4 - 8.2 G/DL 06/10/2019 6:[address] [facility] ALBUMIN S/P/B 3.7 3.4 - 5.0 G/DL 06/10/2019 6:[address] [facility] ANION GAP 12.0 5.0 - 15.0 MMOL/L 06/10/2019 6:[address] [facility] OSMOLALITY (CALC) 290 MOSM/KG 06/10/2019 6:[address] [facility] Comment:REFERENCE RANGE NOT ESTABLISHED EGFR NON-AFR. AMER. >90 >89 ML/MIN/1 .73 M2 06/10/2019 6:[address] [facility] EGFR AFR. AMER. >90 >89 ML/MIN/1 .73 M2 06/10/2019 6:[address] [facility] GFR NOTES THE ESTIMATED GFR IS CALCULATED USING THE 2009 CKD-EPI EQUATION. THE FOLLOWING CATEGORIES FOR GRADING RENAL FUNCTION ARE RECOMMENDED BY THE INTERNATIONAL SOCIETY OF NEPHROLOGY (KDIGO 2012 CLINICAL PRACTICE GUIDELINE). 06/10/2019 6:[address] [facility] Comment: G1,NORMAL OR HIGH: >89 ml/min/1.73 m2 G2,MILDLY DECREASED: 60-89 ml/min/1.73 m2 G3A,MILDLY TO MODERATELY DECREASED: 45-59 ml/min/1.73 m2 G3B,MODERATELY TO SEVERELY DECREASED: 30-44 ml/min/1.73 m2 G4,SEVERELY DECREASED: 15-29 ml/min/1.73 m2 G5,KIDNEY FAILURE: <15 ml/min/1.73 m2 06/10/2019 6:02 AM BOILERMAKER WELDER Sami Aguilera MD LABORATORY Final Result [facility] [address] [place] [address], * CBC W/DIFF AUTOMATED (06/10/2019 6:02 AM BOILERMAKER WELDER) WBC 7.2 4.5 - 10.8 x10'3/uL 06/10/2019 6:[address] [facility] RBC 4.51 4.10 - 5.40 x10'6/uL 06/10/2019 6:[address] [facility] HGB 14.0 12.0 - 16.0 G/DL 06/10/2019 6:[address] [facility] HCT 40.8 36.0 - 47.0 % 06/10/2019 6:[address] [facility] MCV 90.5 78.0 - 100.0 FL 06/10/2019 6:[address] [facility] MCH 31.0 27.0 - 31.0 PG 06/10/2019 6:[address] [facility] MCHC 34.3 33.0 - 36.0 G/DL 06/10/2019 6:[address] [facility] RDW 11.9 11.5 - 14.5 % 06/10/2019 6:[address] [facility] PLT 282 150 - 350 x10'3/uL 06/10/2019 6:[address] [facility] MPV 10.0 7.4 - 10.4 FL 06/10/2019 6:[address] [facility] DIFFERENTIAL COMMENT NORMAL REFERENCE RANGE NOT ESTABLISHED FOR THE PROPORTIONAL LEUKOCYTE DIFFERENTIAL. 06/10/2019 6:[address] [facility] SEG NEUTROPHILS 65.7 % 9 6:[address] [facility] LYMPHOCYTES 26.1 % 06/10/2019 6:13 AM BOILERMAKER WELDER [facility] MONOCYTES 6.3 % 06/10/2019 6:13 AM BOILERMAKER WELDER [facility] EOSINOPHILS 1.1 % 06/10/2019 6:[address] [facility] BASOPHILS 0.7 % 06/10/2019 6:[address] [facility] IMMATURE GRANS % 0.1 % 06/10/20 6:13 AM BOILERMAKER WELDER [facility] NRBC 0.0 % 06/10/2019 6:13 AM BOILERMAKER WELDER [facility] ABS. NEUTROPHILS 4.71 1.60 - 8.30 x10'3/uL 06/10/2019 6:13 AM BOILERMAKER WELDER [facility] ABS. LYMPHOCYTES 1.87 0.80 - 4.70 x10'3/uL 06/10/2019 6:[address] [facility] ABS. MONOCYTES 0.45 0.00 - 1.50 x10'3/uL 06/10/2019 6:13 AM BOILERMAKER WELDER [facility] ABS. EOSINOPHILS 0.08 0.00 - 0.40 x10'3/uL 06/10/2019 6:13 AM BOILERMAKER WELDER [facility] ABS. BASOPHILS 0.05 0.00 - 0.20 x10'3/uL 06/10/2019 6:[address] [facility] ABS. IMMATURE GRANULOCYTES 0.01 0.00 - 0.03 x10'3/uL 06/10/2019 6:[address] [facility] ABS. NUCLEATED RBC'S 0.00 0.00 x10'3/uL 06/10/2019 6:[address] [facility] 06/10/2019 6:02 AM [employer] [facility] us Sami Aguilera MD LABORATORY Final Result [facility] [address] [place] [address], documented in this encounter Visit Diagnoses Diagnosis Headache- Primary Hyperglycemia Other abnormal glucose documented in this encounter Administered Medications Inactive Administered Medications - up to 3 most recent administrations Medication Order MAR Action Action Date Dose Rate Site morphine injection 4 mg 4 mg, Intravenous, Once, 1 dose, On Sun06/10/19 at 0615 Given 06/10/2019 6:26 AM [employer] [facility] 4 mg promethazine (PHENERGAN) injection 12.5 mg 12.5 mg, Intravenous, Once, 1 dose, On Sun06/10/19 at 0645 Given 06/10/2019 6:36 AM [employer] [facility] 12.5 mg sodium chloride 0.9% bolus infusion SOLN 1,000 mL 1,000 mL, Intravenous, Administer over 15 Minutes, Once, 1 dose, On Sun06/10/19 at 0615 New Bag 06/10/2019 6:27 AM [employer] [facility] 1,000 mLs documented in this encounter Active and Recently Administered Medications Times are shown in [employer] [facility]. Scheduled Medication Order 06/08/2019 06/09/2019 06/10/2019 morphine injection 4 mg (COMPLETED) 4 mg, Intravenous, Once, 1 dose, On Sun06/10/19 at 0615 0626 (Given - Provid er: Fela Rojas RN) promethazine (PHENERGAN) injection 12.5 mg (COMPLETED) 12.5 mg, Intravenous, Once, 1 dose, On Sun06/10/19 at 0645 0636 (Given - Provid er: Fela Rojas RN) sodium chloride 0.9% bolus infusion SOLN 1,000 mL (COMPLETED) 1,000 mL, Intravenous, Administer over 15 Minutes, Once, 1 dose, On Sun06/10/19 at 0615 0627 (New Bag - Prov ider: Fela Rojas RN)[id number] (Infusion Stop Time - Provider: Veronica Ferreira RN) documented in this encounter Care Teams Electronics Technician Apprentice Relationship Specialty Start Date End Date Isaias Grier MD [address] [place] [address] [id number] PCP - General FAMILY PRACTICE 01/29/19 03/18/21 documented as of this encounter
--- OUTSIDE RECORDS SUMMARY | 2024-08-03 01:11 | XMS_ITS | Encounter Summary ---
Author Organization [facility] Address [facility] [place] [address] [place] [address] Care Team Providers Care Primary Special Education Teacher Name Role Phone Unavailable Primary Care Provider Unavailabl e Encounter Details Date Type Department Care Team (Late st Contact Info) Description 11/14/2018 Abstract [facility] [address] [place] [address] Sami Aguilera MD [address] [place] [address] Social History Tobacco Use Types Packs/Day [...] Associated Diagnosis Comments GLUCOSE BLOOD, QNT Routine 11/14/2018 6: 57 AM CDT BETA-HYDROXYBUTYRATE STAT 11/14/2018 5:17 AM CDT BLOOD GAS, VENOUS STAT 11/14/2018 5:1 7 AM CDT COMPREHENSIVE METABOLIC PANEL STAT 11/14/2018 5:17 AM CDT LACTIC ACID STAT 11/14/2018 5:17 AM CDT CBC W/DIFF AUTOMATED STAT 11/14/2018 5:17 AM CDT LIPASE STAT 11/14/2018 5:17 AM CDT GLUCOSE BLOOD, QNT Routine 11/14/2018 5: 05 AM CDT documented in this encounter Results * (ABNORMAL) GLUCOSE BLOOD, QNT (11/14/2018 6:57 AM CDT) [facility] GLUCOSE POC 360(H) 70 - 140 MG/DL 11/14/2018 6:59 AM CDT [facility] ORDERS INTERFACE 11/14/2018 6:57 AM CDT 11/14/2018 6:59 AM CDT us Generic Conversion Md MIR LABORATORY Final R esult [facility] ORDERS INTERFACE US * (ABNORMAL) Blood gas, venous (11/14/2018 5:17 AM CDT) [facility] O2 SAT VENOUS 90(H) 40 - 70 % 11/14/2018 5:30 AM CDT [facility] PH VENOUS 7.17(LL) 7.35 - 7.45 11/14/2018 5:30 AM CDT [facility] Comment:CRITICAL VALUECALLED [facility] AT 0530READ BACK AND VERIFIED PCO2 26.2(L) 41.0 - 51.0 MMHG 11/14/2018 5:30 AM CDT [facility] PO2 VENOUS 82.0(H) 20.0 - 40.0 MM HG 11/14/2018 5:30 AM CDT [facility] BASE DEFICIT VENOUS 18.4 MMOL/L 11/14/2018 5:30 AM CDT [facility] BICARB VENOUS 9.1(L) 22.0 - 29.0 MMOL/L 11/14/2018 5:30 AM CDT [facility] TCO2 9.9(L) 25.0 - 29.0 MMOL/L 11/14/2018 5:30 AM CDT [facility] LITER FLOW ROOM AIR 11/14/2018 5:23 AM CDT [facility] 11/14/2018 5:17 AM CDT 11/14/2018 5:22 AM CDT us Generic Conversion Md MIR LABORATORY Final R esult Performing Organization Address [facility]/ZIP Co de Phone Number [facility] [address] [place] [address], * (ABNORMAL) LIPASE (11/14/2018 5:17 AM CDT) LIPASE 61(L) 73 - 393 UNITS/L 11/14/2018 5:50 AM CDT [facility] SERUM OR PLASMA SPECIMEN / Unknown 11/14/2018 5:17 AM CDT 11/14/2018 5:21 AM CDT us Generic Conversion Md MIR LABORATORY Final R esult Performing Organization Address [facility] Co de Phone Number [facility] [address] [place] [address], [place] [phone] * (ABNORMAL) LACTIC ACID (11/14/2018 5:17 AM CDT) LACTIC ACID VENOUS 3.0(H) 0.4 - 2.0 MMOL/L 11/14/2018 5:44 AM CDT [facility] Comment: AN ORDER FOR A REPEAT LACTIC ACID TEST IS REQUIRED WITHIN 6 HOURS OF DIAGNOSIS ON A PATIENT WITH SEVERE SEPSIS. PLASMA SPECIMEN / Unknown 11/14/2018 5:17 AM CDT 11/14/2018 5:21 AM CDT us Generic Conversion Md MIR LABORATORY Final R esult Performing Organization Address City/[facility]/ZIP Co de Phone Number [facility] [address] [place] [address], * (ABNORMAL) COMPREHENSIVE METABOLIC PANEL (11/14/2018 5:17 AM CDT) SODIUM S/P/B 129(L) 136 - 145 MMOL/L 11/14/2018 5:50 AM CDT [facility] POTASSIUM S/P/B 4.6 3.5 - 5.1 MMOL/L 11/14/2018 5:50 AM CDT [facility] CHLORIDE S/P/B 92(L) 98 - 107 MMOL/L 11/14/2018 5:50 AM CDT [facility] CO2 9.3(LL) 21.0 - 32.0 MMOL/L 11/14/2018 5:50 AM CDT [facility] Comment:ETCR CALLED CRITICAL RESULTS AT [id number] TO AND READ BACK BY DIANDRA GLUCOSE 522(HH) 70 - 140 MG/DL 11/14/2018 5:50 AM CDT [facility] Comment:ETCR CALLED CRITICAL RESULTS AT [id number] TO AND READ BACK BY DIANDRA BUN 28(H) 6 - 24 MG/DL 11/14/2018 5:50 AM CDT [facility] CREATININE S/P/B 1.31(H) 0.55 - 1.02 MG/DL 11/14/2018 5:50 AM CDT [facility] CALCIUM S/P/B 9.3 8.4 - 10.5 MG/DL 11/14/2018 5:50 AM CDT [facility] BILIRUBIN TOTAL S/P/B 1.2(H) 0.2 - 1.0 MG/DL 11/14/2018 5:50 AM CDT [facility] ALKALINE PHOSPHATASE S/P/B 98 37 - 98 U/L 11/14/2018 5:50 AM CDT [facility] AST 26 15 - 37 U/L 11/14/2018 5:50 AM CDT [facility] ALT 29 14 - 59 U/L 11/14/2018 5:50 AM CDT [facility] TOTAL PROTEIN S/P/B 8.7(H) 6.4 - 8.2 G/DL 11/14/2018 5:50 AM CDT [facility] ALBUMIN S/P/B 4.6 3.4 - 5.0 G/DL 11/14/2018 5:50 AM CDT [facility] ANION GAP 27.7 MMOL/L 11/14/2018 5:50 AM CDT [facility] Comment:REFERENCE RANGE NOT ESTABLISHED OSMOLALITY (CALC) 297 MOSM/KG 11/14/2018 5:50 AM CDT [facility] Comment:REFERENCE RANGE NOT ESTABLISHED EGFR NON-AFR. AMER. 55(L) >89 ML/MIN/1 .73 M2 11/14/2018 5:50 AM CDT [facility] EGFR AFR. AMER. 64(L) >89 ML/MIN/1 .73 M2 11/14/2018 5:50 AM CDT [facility] GFR NOTES THE ESTIMATED GFR IS CALCULATED USING THE 2009 CKD-EPI EQUATION. THE FOLLOWING CATEGORIES FOR GRADING RENAL FUNCTION ARE RECOMMENDED BY THE INTERNATIONAL SOCIETY OF NEPHROLOGY (KDIGO 2012 CLINICAL PRACTICE GUIDELINE). 11/14/2018 5:50 AM CDT [facility] Comment: G1,NORMAL OR HIGH: >89 ml/min/1.73 m2G2,MILDLY DECREASED: 60-89 ml/min/1.73 m2G3A,MILDLY TO MODERATELY DECREASED: 45-59 ml/min/1.73 m2G3B,MODERATELY TO SEVERELY DECREASED: 30-44 ml/min/1.73 m2G4,SEVERELY DECREASED: 15-29 ml/min/1.73 m2G5,KIDNEY FAILURE: <15 ml/min/1.73 m2 PLASMA SPECIMEN / Unknown 11/14/2018 5:17 AM CDT 11/14/2018 5:21 AM CDT us Generic Conversion Md MIR LABORATORY Final R esult [facility] [address] [place] [address], * (ABNORMAL) CBC W/DIFF AUTOMATED (11/14/2018 5:17 AM CDT) WBC 20.1(H) 4.5 - 10.8 x10'3/uL 11/14/2018 5:29 AM CDT [facility] RBC 4.75 4.10 - 5.40 x10'6/uL 11/14/2018 5:29 AM CDT [facility] HGB 14.6 12.0 - 16.0 G/DL 11/14/2018 5:29 AM CDT [facility] HCT 43.0 36.0 - 47.0 % 11/14/2018 5:29 AM CDT [facility] MCV 90.5 78.0 - 100.0 FL 11/14/2018 5:29 AM CDT [facility] MCH 30.7 27.0 - 31.0 PG 11/14/2018 5:29 AM CDT [facility] MCHC 34.0 33.0 - 36.0 G/DL 11/14/2018 5:29 AM CDT [facility] RDW 11.4(L) 11.5 - 14.5 % 11/14/2018 5:29 AM CDT [facility] PLT 283 150 - 350 x10'3/uL 11/14/2018 5:29 AM CDT [facility] MPV 10.6(H) 7.4 - 10.4 FL 11/14/2018 5:29 AM CDT [facility] DIFFERENTIAL COMMENT NORMAL REFERENCE RANGE NOT ESTABLISHED FOR THE PROPORTIONAL LEUKOCYTE DIFFERENTIAL. 11/14/2018 5:29 AM CDT [facility] SEG NEUTROPHILS 81.0 % 9 5:29 AM CDT [facility] LYMPHOCYTES 10.8 % 11/14/2018 5:29 AM CDT [facility] MONOCYTES 6.9 % 11/14/2018 5:29 AM CDT [facility] EOSINOPHILS 0.2 % 11/14/2018 5:29 AM CDT [facility] BASOPHILS 0.6 % 11/14/2018 5:29 AM CDT [facility] IMMATURE GRANS % 0.5 % 04/25/20 19 5:29 AM CDT [facility] NRBC 0.0 % 11/14/2018 5:29 AM CDT [facility] ABS. NEUTROPHILS 16.26(H) 1.60 - 8.30 x10'3/uL 11/14/2018 5:29 AM CDT [facility] ABS. LYMPHOCYTES 2.18 0.80 - 4.70 x10'3/uL 11/14/2018 5:29 AM CDT [facility] ABS. MONOCYTES 1.39 0.00 - 1.50 x10'3/uL 11/14/2018 5:29 AM CDT [facility] ABS. EOSINOPHILS 0.04 0.00 - 0.40 x10'3/uL 11/14/2018 5:29 AM CDT [facility] ABS. BASOPHILS 0.13 0.00 - 0.20 x10'3/uL 11/14/2018 5:29 AM CDT [facility] ABS. IMMATURE GRANULOCYTES 0.10(H) 0.00 - 0.03 x10'3/uL 11/14/2018 5:29 AM CDT [facility] ABS. NUCLEATED RBC'S 0.00 0.00 x10'3/uL 11/14/2018 5:29 AM CDT [facility] OTHER (type in comments) 11/14/2018 5:17 AM CDT 11/14/2018 5:21 AM CDT Comment:WHOLE BLOOD SAMPLE us Generic Conversion Md MIR LABORATORY Final R esult [facility] [address] [place] [address], * (ABNORMAL) BETA-HYDROXYBUTYRATE (11/14/2018 5:17 AM CDT) BETA-HYDROXYBU TYRATE 5.6(H) 0.0 - 0.3 MMOL/L 11/14/2018 5:30 AM CDT [facility] SERUM OR PLASMA SPECIMEN / Unknown 11/14/2018 5:17 AM CDT 11/14/2018 5:21 AM CDT us Generic Conversion Md MIR LABORATORY Final R theo [facility] [address] [place] [address], * (ABNORMAL) GLUCOSE BLOOD, QNT (11/14/2018 5:05 AM CDT) Pathologist [facility] GLUCOSE POC 475(H) 70 - 140 MG/DL 11/14/2018 5:06 AM CDT [facility] ORDERS INTERFACE 11/14/2018 5:05 AM CDT 11/14/2018 5:06 AM CDT us Generic Conversion Md MIR LABORATORY Final R theo [facility] ORDERS INTERFACE US documented in this encounter Visit Diagnoses Diagnosis Type 1 diabetes mellitus with ketoacidosis and without coma (CMS/HCC [facility]) Type I (juvenile type) diabetes mellitus with ketoacidosis, not stated as uncontrolled documented in this encounter
--- OUTSIDE RECORDS SUMMARY | 2024-08-03 01:11 | XMS_ITS | Encounter Summary ---
Author Organization [facility] Address [facility] [place] [address] [place] [address] Care Team Providers Care Fire Sprinkler Installer Name Role Phone Unavailable Primary Care Provider Unavailabl e Encounter Details Date Type Department Care Team (Late st Contact Info) Description 01/24/2018 Abstract [facility] [address] [address] eY Vincent MD [address] [place], [place] [id number] Social History Tobacco Use Types Packs/Day Years [...] as of this encounter Visit Diagnoses Diagnosis Latex allergy status Allergy, unspecified not elsewhere classified documented in this encounter
--- OUTSIDE RECORDS SUMMARY | 2024-08-03 01:12 | XMS_ITS | Encounter Summary ---
Author Organization [facility] Address [facility] [place] [address] [place] [address] Care Team Providers Care Traffic Control Specialist Name Role Phone Unavailable Primary Care Provider Unavailabl e Encounter Details Date Type Department Care Team (Late st Contact Info) Description 04/23/2012 Abstract [facility] [address] [place], [place] [id number] Manuel Kwok MD [address] [place] [address] Social History Tobacco Use Types Packs/Day Years [...] as of this encounter Visit Diagnoses Diagnosis Nausea with vomiting documented in this encounter
--- OUTSIDE RECORDS SUMMARY | 2024-08-03 01:12 | XMS_ITS | Encounter Summary ---
Author Organization [facility] Address [address] [facility] [place] [place] [address] [place] [address] Care Team Providers Care Electronic Calibration Technician Name Role Phone Unavailable Primary Care Provider Unavailabl e Encounter Details Date Type Department Care Team (Late st Contact Info) Description 04/22/2017 Abstract [facility] [address] [place] [address] Rudy Martin MD [address] [place] [address] Social History Tobacco Use Types Packs/Day Years [...] Associated Diagnosis Comments GLUCOSE BLOOD, QNT Routine 04/22/2017 12 :05 PM CDT URINALYSIS WI REFLEX TO CULTURE STAT 04/22/2017 10:00 AM CDT BETA-HYDROXYBUTYRATE STAT 04/22/2017 10:00 AM CDT TEST URINE STAT 04/22/2017 10:00 AM CDT COMPREHENSIVE METABOLIC PANEL STAT 04/22/2017 10:00 AM CDT CBC W/DIFF AUTOMATED STAT 04/22/2017 10:00 AM CDT LIPASE STAT 04/22/2017 10:00 AM CDT GLUCOSE BLOOD, QNT Routine 04/22/2017 9: 50 AM CDT documented in this encounter Results * (ABNORMAL) GLUCOSE BLOOD, QNT (04/22/2017 12:05 PM CDT) GLUCOSE POC 235(H) 70 - 99 MG/DL 04/23/2017 7:10 AM CDT [facility] ORDERS INTERFACE 04/22/2017 12:0 5 PM CDT 04/23/2017 7:10 AM CDT us Generic Conversion Md MIR LABORATORY Final R esult Performing Organization Address City/[facility]/ZIP Co de Phone Number [facility] ORDERS INTERFACE US * (ABNORMAL) LIPASE (04/22/2017 10:00 AM CDT) Pathologist [facility] [place] LIPASE 7(L) 8 - 78 UNITS/L 04/22/2017 10:50 AM CDT [facility] SERUM OR PLASMA SPECIMEN / Unknown 04/22/2017 10:00 AM CDT 04/22/2017 10:25 AM CDT us Generic Conversion Md MIR LABORATORY Final R esult [facility] [place] [address], * (ABNORMAL) COMPREHENSIVE METABOLIC PANEL (04/22/2017 10:00 AM CDT) GLUCOSE 328(H) 70 - 99 MG/DL 04/22/2017 10:50 AM CDT [facility] BUN 18 7 - 19 MG/DL 04/22/2017 10:50 AM CDT [facility] CREATININE S/P/B 1.15(H) 0.57 - 1.11 MG/DL 04/22/2017 10:50 AM CDT [facility] SODIUM S/P/B 132(L) 136 - 145 MMOL/L 04/22/2017 10:50 AM CDT [facility] POTASSIUM S/P/B 4.4 3.5 - 5.1 MMOL/L 04/22/2017 10:50 AM CDT [facility] CHLORIDE S/P/B 94(L) 98 - 107 MMOL/L 04/22/2017 10:50 AM CDT [facility] CO2 17.0(L) 22.0 - 29.0 MMOL/L 04/22/2017 10:50 AM CDT [facility] CALCIUM S/P/B 10.4(H) 8.4 - 10.2 MG/DL 04/22/2017 10:50 AM CDT [facility] BILIRUBIN TOTAL S/P/B 1.1 0.2 - 1.2 MG/DL 04/22/2017 10:50 AM CDT [facility] TOTAL PROTEIN S/P/B 9.2(H) 6.0 - 8.3 G/DL 04/22/2017 10:50 AM CDT [facility] ALBUMIN S/P/B 4.9 3.5 - 5.2 G/DL 04/22/2017 10:50 AM CDT [facility] AST 19 5 - 34 U/L 04/22/2017 10:50 AM CDT [facility] ALT 24 0 - 55 U/L 04/22/2017 10:50 AM CDT [facility] ALKALINE PHOSPHATASE S/P/B 122 50 - 136 U/L 04/22/2017 10:50 AM CDT [facility] OSMOLALITY (CALC) 279 275 - 300 MOSM/KG 04/22/2017 10:50 AM CDT [facility] A/G RATIO 1.1 1.0 - 1.6 RATIO 04/22/2017 10:50 AM CDT [facility] BUN CREATININE RATIO 15.7 12 - 20 04/22/2017 10:50 AM CDT [facility] ANION GAP 21.0(H) 7 - 16 MMOL/L 04/22/2017 10:50 AM CDT [facility] EGFR NON-AFR. AMER. >60 >60 ML/MIN/1.7 3 M2 04/22/2017 10:50 AM CDT [facility] EGFR AFR. AMER. >60 >60 ML/MIN/1.7 3 M2 04/22/2017 10:50 AM CDT [facility] 04/22/2017 10:0 0 AM CDT 04/22/2017 10:25 AM CDT us Generic Conversion Md MIR LABORATORY Final R esult [facility] [address] [place] [address], * (ABNORMAL) CBC W/DIFF AUTOMATED (04/22/2017 10:00 AM CDT) WBC 7.4 4.5 - 10.8 x10'3/uL 04/22/2017 10:27 AM CDT [facility] RBC 4.91 4.10 - 5.40 x10'6/uL 04/22/2017 10:27 AM CDT [facility] HGB 14.9 12.0 - 16.0 G/DL 04/22/2017 10:27 AM CDT [facility] HCT 42.4 36.0 - 47.0 % 04/22/2017 10:27 AM CDT [facility] MCV 86.4 78.0 - 100.0 FL 04/22/2017 10:27 AM CDT [facility] MCH 30.3 27.0 - 31.0 PG 04/22/2017 10:27 AM CDT [facility] MCHC 35.1 33.0 - 36.0 G/DL 04/22/2017 10:27 AM CDT [facility] RDW 12.1 11.5 - 14.5 % 04/22/2017 10:27 AM CDT [facility] PLT 290 150 - 350 x10'3/uL 04/22/2017 10:27 AM CDT [facility] MPV 10.2 7.4 - 10.4 FL 04/22/2017 10:27 AM CDT [facility] SEG NEUTROPHILS 54.4 % 7 10:27 AM CDT [facility] LYMPHOCYTES 29.3 % 04/22/2017 10:27 AM CDT [facility] MONOCYTES 6.9 % 04/22/2017 10:27 AM CDT [facility] EOSINOPHILS 8.1 % 04/22/2017 10:27 AM CDT [facility] BASOPHILS 1.2 % 04/22/2017 10:27 AM T [facility] IMMATURE GRANS % 0.1 % 04/22/20 17 10:27 AM CDT [facility] NRBC 0.0 % 04/22/2017 10:27 AM T [facility] ABS. NEUTROPHILS 4.02 1.60 - 8.30 x10'3/uL 04/22/2017 10:27 AM T [facility] ABS. LYMPHOCYTES 2.17 0.80 - 4.70 x10'3/uL 04/22/2017 10:27 AM T [facility] ABS. MONOCYTES 0.51 0.00 - 1.50 x10'3/uL 04/22/2017 10:27 AM T [facility] ABS. EOSINOPHILS 0.60(H) 0.00 - 0.40 x10'3/uL 04/22/2017 10:27 AM T [facility] ABS. BASOPHILS 0.09 0.00 - 0.20 x10'3/uL 04/22/2017 10:27 AM T [facility] ABS. IMMATURE GRANULOCYTES 0.01 0.00 - 0.03 x10'3/uL 04/22/2017 10:27 AM T [facility] ABS. NUCLEATED RBC'S 0.00 0.00 x10'3/uL 04/22/2017 10:27 AM T [facility] OTHER (type in comments) 04/22/2017 10:00 AM CDT 04/22/2017 10:25 AM CDT Comment:WHOLE BLOOD SAMPLE us Generic Conversion Md MIR LABORATORY Final R esult Performing Organization Address [facility]/ZIP Co de Phone Number [facility] [address] [place] [phone], * (ABNORMAL) BETA-HYDROXYBUTYRATE (04/22/2017 10:00 AM CDT) BETA-HYDROXYBU TYRATE 4.9(H) 0.0 - 0.3 MMOL/L 04/22/2017 10:26 AM CDT [facility] SERUM OR PLASMA SPECIMEN / Unknown 04/22/2017 10:00 AM CDT 04/22/2017 10:25 AM CDT us Generic Conversion Md MIR LABORATORY Final R theo Performing Organization Address [facility]/ZIP Co de Phone Number [facility] [address] [place] [phone], * (ABNORMAL) URINALYSIS WI REFLEX TO CULTURE (04/22/2017 10:00 AM CDT) COLOR (U) YELLOW 04/22/2017 10:31 AM CDT [facility] TRANSPARENCY CLEAR 04/22/2017 10:31 AM CDT [facility] SPECIFIC GRAVITY (U) 1.030(H) 1.000 - 1.025 04/22/2017 10:31 AM CDT [facility] Comment:EQUAL TO OR GREATER THAN U PH 6.0 5.0 - 8.0 04/22/2017 10:31 AM CDT [facility] LEUKOCYTES (U) NEGATIVE NEGATIVE 04/22/2017 10:31 AM CDT [facility] NITRITES NEGATIVE NEGATIVE 04/22/2017 10:31 AM CDT [facility] PROTEIN (U) 1+(A) NEGATIVE 04/22/2017 10:31 AM CDT [facility] URINE GLUCOSE 2+(A) NEGATIVE 04/22/2017 10:31 AM CDT [facility] KETONES MG/DL (U) 3+(A) NEGATIVE 04/22/2017 10:31 AM CDT [facility] UROBILINOGEN 0.2 <1.0 EU/DL 04/22/2017 10:31 AM CDT [facility] BLOOD (U) NEGATIVE NEGATIVE 04/22/2017 10:31 AM CDT [facility] WBC/HPF 0-5 0 - 5 /HPF 04/22/2017 10:31 AM CDT [facility] RBC/HPF 0-5 0 - 5 /HPF 04/22/2017 10:31 AM CDT [facility] EPI/HPF MANY /LPF 04/22/2017 10:31 AM CDT [facility] MUCUS PRESENT 04/22/2017 10:31 AM CDT [facility] BILIRUBIN (U) NEGATIVE NEGATIVE 04/22/2017 10:31 AM CDT [facility] CULTURE & SENSITIVITY INDICATED? NOT INDICATED 04/22/2017 10:34 AM CDT [facility] OTHER (type in comments) 04/22/2017 10:00 AM CDT 04/22/2017 10:17 AM CDT Comment:URINE SPECIMEN~URINE SPECIMEN us Generic Conversion Md MIR URINE ORDERABLES Final Result [facility] [address] [place] [address], * TEST URINE (04/22/2017 10:00 AM CDT) PREG TEST NEGATIVE 04/22/2017 10:29 AM CDT [facility] SPECIFIC GRAVITY (U) >1.030 04/22/2017 10:29 AM CDT [facility] URINE SPECIMEN / Unknown 04/22/2017 10:00 AM CDT 04/22/2017 10:17 AM CDT us Generic Conversion Md MIR URINE ORDERABLES Final Result [facility] [place] [address], * (ABNORMAL) GLUCOSE BLOOD, QNT (04/22/2017 9:50 AM CDT) GLUCOSE POC 276(H) 70 - 99 MG/DL 04/22/2017 9:52 AM CDT [facility] ORDERS INTERFACE 04/22/2017 9:50 AM CDT 04/22/2017 9:51 AM CDT us Generic Conversion Md MIR LABORATORY Final R esult [facility] ORDERS INTERFACE US documented in this encounter Visit Diagnoses Diagnosis Noninfective gastroenteritis and colitis Other and unspecified noninfectious gastroenteritis and colitis documented in this encounter
--- OUTSIDE RECORDS SUMMARY | 2024-08-03 01:12 | XMS_ITS | Encounter Summary ---
Author Organization [facility] Address [facility] [facility] [place] [address] [place] [address] Care Team Providers Care Shotblast Operator Name Role Phone Unavailable Primary Care Provider Unavailabl e Encounter Details Date Type Department Care Team (Late st Contact Info) Description 06/22/2015 [facility] [address] [place] [address] Richard Esquivel MD [address] [place] [phone] Social History Tobacco Use Types Packs/Day [...] as of this encounter Visit Diagnoses Diagnosis Dehydration documented in this encounter
--- OUTSIDE RECORDS SUMMARY | 2024-08-03 01:12 | XMS_ITS | Encounter Summary ---
Author Organization [facility] Address [address] 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 Name Role Phone Unavailable Primary Care Provider Unavailabl e Encounter Details Date Type Department Care Team (Late st Contact Info) Description 09/15/2017 Abstract [place] [facility] [address] [place] [address] [place] [address] [place] [address] Social History Tobacco Use Types Packs/Day Years [...] Associated Diagnosis Comments GLUCOSE BLOOD, QNT Routine 09/19/2017 9: 15 AM DISPERSION MIXER GLUCOSE BLOOD, QNT Routine 09/19/2017 5: 57 AM DISPERSION MIXER GLUCOSE BLOOD, QNT Routine 09/18/2017 10 :46 PM DISPERSION MIXER GLUCOSE BLOOD, QNT Routine 09/18/2017 8: 04 PM DISPERSION MIXER GLUCOSE BLOOD, QNT Routine 09/18/2017 7: 09 PM DISPERSION MIXER GLUCOSE BLOOD, QNT Routine 09/18/2017 6: 56 PM DISPERSION MIXER GLUCOSE BLOOD, QNT Routine 09/18/2017 6: 41 PM DISPERSION MIXER GLUCOSE BLOOD, QNT Routine 09/18/2017 4: 13 PM DISPERSION MIXER GLUCOSE BLOOD, QNT Routine 09/18/2017 12 :17 PM DISPERSION MIXER GLUCOSE BLOOD, QNT Routine 09/18/2017 11 :43 AM DISPERSION MIXER GLUCOSE BLOOD, QNT Routine 09/18/2017 10 :59 AM DISPERSION MIXER BASIC METABOLIC PANEL Routine 09/18/2017 5:00 AM DISPERSION MIXER CBC W/DIFF AUTOMATED Routine 09/18/2017 5:00 AM DISPERSION MIXER GLUCOSE BLOOD, QNT Routine 09/18/2017 5: 00 AM DISPERSION MIXER GLUCOSE BLOOD, QNT Routine 09/17/2017 8: 09 PM DISPERSION MIXER GLUCOSE BLOOD, QNT Routine 09/17/2017 4: 22 PM DISPERSION MIXER GLUCOSE BLOOD, QNT Routine 09/17/2017 11 :58 AM DISPERSION MIXER BASIC METABOLIC PANEL Routine 09/17/2017 9:42 AM DISPERSION MIXER CBC W/DIFF AUTOMATED Routine 09/17/2017 9:42 AM DISPERSION MIXER GLUCOSE BLOOD, QNT Routine 09/17/2017 5: 58 AM DISPERSION MIXER GLUCOSE BLOOD, QNT Routine 09/16/2017 9: 10 PM DISPERSION MIXER GLUCOSE BLOOD, QNT Routine 09/16/2017 4: 43 PM DISPERSION MIXER GLUCOSE BLOOD, QNT Routine 09/16/2017 11 :52 AM DISPERSION MIXER BASIC METABOLIC PANEL Routine 09/16/2017 5:45 AM DISPERSION MIXER CBC W/DIFF AUTOMATED Routine 09/16/2017 5:45 AM DISPERSION MIXER GLUCOSE BLOOD, QNT Routine 09/16/2017 3: 15 AM DISPERSION MIXER GLUCOSE BLOOD, QNT Routine 09/16/2017 2: 38 AM DISPERSION MIXER URINALYSIS WI REFLEX TO CULTURE STAT 09/15/2017 7:00 PM DISPERSION MIXER TEST URINE STAT 09/15/2017 7:00 PM DISPERSION MIXER INFLUENZA A & B STAT 09/15/2017 6:34 PM DISPERSION MIXER CULTURE, BACTERIA, BLOOD STAT 09/15/2017 5:42 PM DISPERSION MIXER COMPREHENSIVE METABOLIC PANEL STAT 09/15/2017 5:35 PM DISPERSION MIXER LACTIC ACID STAT 09/15/2017 5:35 PM DISPERSION MIXER CULTURE, BACTERIA, BLOOD STAT 09/15/2017 5:35 PM DISPERSION MIXER CBC W/DIFF AUTOMATED STAT 09/15/2017 5:35 PM DISPERSION MIXER LIPASE STAT 09/15/2017 5:35 PM DISPERSION MIXER documented in this encounter Results * GLUCOSE BLOOD, QNT (09/19/2017 9:15 AM DISPERSION MIXER) [facility] GLUCOSE POC 89 70 - 99 MG/DL 09/19/2017 9:22 AM DISPERSION MIXER [facility] INTERFACE 09/19/2017 9:15 AM DISPERSION MIXER 09/19/2017 9:22 AM DISPERSION MIXER us Generic Conversion Md [facility] LABORAT[facility] Final R esult [facility] INTERFACE US * (ABNORMAL) GLUCOSE BLOOD, QNT (09/19/2017 5:57 AM DISPERSION MIXER) GLUCOSE POC 62(L) 70 - 99 MG/DL 09/19/2017 6:00 AM DISPERSION MIXER [facility] INTERFACE 09/19/2017 5:57 AM DISPERSION MIXER 09/19/2017 6:00 AM DISPERSION MIXER us Generic Conversion Md MIR LABORATORY Final R esult Performing Organization Address [facility] Co de Phone Number [facility] INTERFACE US * (ABNORMAL) GLUCOSE BLOOD, QNT (09/18/2017 10:46 PM DISPERSION MIXER) GLUCOSE POC 126(H) 70 - 99 MG/DL 09/18/2017 10:48 PM DISPERSION MIXER [facility] INTERFACE 09/18/2017 10:4 6 PM DISPERSION MIXER 09/18/2017 10:48 PM DISPERSION MIXER us Generic Conversion Md MIR LABORATORY Final R esult Performing Organization Address [facility] Co de Phone Number [facility] INTERFACE US * GLUCOSE BLOOD, QNT (09/18/2017 8:04 PM DISPERSION MIXER) GLUCOSE POC 83 70 - 99 MG/DL 09/18/2017 8:08 PM DISPERSION MIXER [facility] INTERFACE 09/18/2017 8:04 PM DISPERSION MIXER 09/18/2017 8:08 PM DISPERSION MIXER us Generic Conversion Md MIR LABORATORY Final R esult Performing Organization Address City/[facility]/ZIP Co de Phone Number [facility] INTERFACE US * (ABNORMAL) GLUCOSE BLOOD, QNT (09/18/2017 7:09 PM DISPERSION MIXER) GLUCOSE POC 59(L) 70 - 99 MG/DL 09/18/2017 7:11 PM DISPERSION MIXER [facility] INTERFACE 09/18/2017 7:09 PM DISPERSION MIXER 09/18/2017 7:11 PM DISPERSION MIXER us Generic Conversion Md [facility] LABOR[facility] Final R theo [facility] INTERFACE US * (ABNORMAL) GLUCOSE BLOOD, QNT (09/18/2017 6:56 PM DISPERSION MIXER) GLUCOSE POC 48(L) 70 - 99 MG/DL 09/18/2017 7:11 PM DISPERSION MIXER [facility] INTERFACE 09/18/2017 6:56 PM DISPERSION MIXER 09/18/2017 7:11 PM DISPERSION MIXER us Generic Conversion Md M[facility] LABORAT[facility] Final R esult Performing Organization Address [facility]/ZIP Co de Phone Number [facility] INTERFACE US * (ABNORMAL) GLUCOSE BLOOD, QNT (09/18/2017 6:41 PM DISPERSION MIXER) GLUCOSE POC 35(L) 70 - 99 MG/DL 09/18/2017 7:11 PM DISPERSION MIXER [facility] INTERFACE 09/18/2017 6:41 PM DISPERSION MIXER 09/18/2017 7:11 PM DISPERSION MIXER us Generic Conversion Md MIR LABORATORY Final R [facility] Performing Organization Address [facility] Co de Phone Number [facility] ORDERS INTERFACE US * (ABNORMAL) GLUCOSE BLOOD, QNT (09/18/2017 4:13 PM DISPERSION MIXER) GLUCOSE POC 234(H) 70 - 99 MG/DL 09/18/2017 4:21 PM DISPERSION MIXER [facility] INTERFACE 09/18/2017 4:13 PM DISPERSION MIXER 09/18/2017 4:21 PM DISPERSION MIXER us Generic Conversion Md MIR LABORATORY Final R esult Performing Organization Address City/[facility]/ZIP Co de Phone Number [facility] INTERFACE US * GLUCOSE BLOOD, QNT (09/18/2017 12:17 PM DISPERSION MIXER) GLUCOSE POC 72 70 - 99 MG/DL 09/18/2017 12:21 PM DISPERSION MIXER [facility] INTERFACE 09/18/2017 12:1 7 PM DISPERSION MIXER 09/18/2017 12:21 PM DISPERSION MIXER us Generic Conversion Md M[facility] LABORAT[facility] Final R theo Performing Organization Address [facility] Co de Phone Number [facility] INTERFACE US * (ABNORMAL) GLUCOSE BLOOD, QNT (09/18/2017 11:43 AM DISPERSION MIXER) GLUCOSE POC 52(L) 70 - 99 MG/DL 09/18/2017 11:48 AM DISPERSION MIXER [facility] INTERFACE 09/18/2017 11:4 3 AM DISPERSION MIXER 09/18/2017 11:48 AM DISPERSION MIXER us Generic Conversion Md MIR LABORATORY Final R lucina Performing Organization Address [facility] Phone Number [facility] INTERFACE US * (ABNORMAL) GLUCOSE BLOOD, QNT (09/18/2017 10:59 AM DISPERSION MIXER) GLUCOSE POC 57(L) 70 - 99 MG/DL 09/18/2017 11:01 AM DISPERSION MIXER [facility] INTERFACE 09/18/2017 10:5 9 AM DISPERSION MIXER 09/18/2017 11:01 AM DISPERSION MIXER us Generic Conversion Md MIR LABORATORY Final R [facility] Performing Organization Address [facility] Phone Number [facility] INTERFACE US * GLUCOSE BLOOD, QNT (09/18/2017 5:00 AM DISPERSION MIXER) GLUCOSE POC 82 70 - 99 MG/DL 09/18/2017 5:02 AM DISPERSION MIXER [facility] INTERFACE 09/18/2017 5:00 AM DISPERSION MIXER 09/18/2017 5:02 AM DISPERSION MIXER us Generic Conversion Md MIR LABORATORY Final R [facility] Performing Organization Address [facility] Co de Phone Number [facility] INTERFACE US * (ABNORMAL) CBC W/DIFF AUTOMATED (09/18/2017 5:00 AM DISPERSION MIXER) WBC 6.2 4.5 - 10.8 x10'3/uL 09/18/2017 5:37 AM [facility] RBC 3.38(L) 4.10 - 5.40 x10'6/uL 09/18/2017 5:37 AM [facility] HGB 10.3(L) 12.0 - 16.0 G/DL 09/18/2017 5:37 AM [facility] HCT 30.8(L) 36.0 - 47.0 % 09/18/2017 5:37 AM [facility] MCV 91.1 78.0 - 100.0 FL 09/18/2017 5:37 AM [facility] MCH 30.5 27.0 - 31.0 PG 09/18/2017 5:37 AM [facility] MCHC 33.4 33.0 - 36.0 G/DL 09/18/2017 5:37 AM [facility] RDW 12.1 11.5 - 14.5 % 09/18/2017 5:37 AM [facility] PLT 238 150 - 350 x10'3/uL 09/18/2017 5:37 AM [facility] MPV 9.8 7.4 - 10.4 FL 09/18/2017 5:37 AM [facility] SEG NEUTROPHILS 59.7 % 8 5:37 AM [facility] LYMPHOCYTES 30.6 % 09/18/2017 5:37 AM [facility] MONOCYTES 6.0 % 09/18/2017 5:37 AM [facility] EOSINOPHILS 3.2 % 09/18/2017 5:37 AM [facility] BASOPHILS 0.3 % 09/18/2017 5:37 AM [facility] IMMATURE GRANS % 0.2 % 09/18/19 18 5:37 AM [facility] NRBC 0.0 % 09/18/2017 5:37 AM [facility] ABS. NEUTROPHILS 3.71 1.60 - 8.30 x10'3/uL 09/18/2017 5:37 AM [facility] ABS. LYMPHOCYTES 1.90 0.80 - 4.70 x10'3/uL 09/18/2017 5:37 AM [facility] ABS. MONOCYTES 0.37 0.00 - 1.50 x10'3/uL 09/18/2017 5:37 AM [facility] ABS. EOSINOPHILS 0.20 0.00 - 0.40 x10'3/uL 09/18/2017 5:37 AM DISPERSION MIXER [facility] ABS. BASOPHILS 0.02 0.00 - 0.20 x10'3/uL 09/18/2017 5:37 AM [facility] ABS. IMMATURE GRANULOCYTES 0.01 0.00 - 0.03 x10'3/uL 09/18/2017 5:37 AM [facility] ABS. NUCLEATED RBC'S 0.00 0.00 x10'3/uL 09/18/2017 5:37 AM [facility] OTHER (type in comments) 09/18/2017 5:00 AM DISPERSION MIXER 09/18/2017 5:29 AM DISPERSION MIXER Comment:WHOLE BLOOD SAMPLE us Generic Conversion Md [facility]IR LABORAT[facility] Final R esult [facility] [address] [place] [address], * (ABNORMAL) BASIC METABOLIC PANEL (09/18/2017 5:00 AM DISPERSION MIXER) GLUCOSE 92 70 - 99 MG/DL 09/18/2017 5:52 AM [facility] BUN 4(L) 7 - 19 MG/DL 09/18/2017 5:52 AM [facility] CREATININE S/P/B 0.63 0.57 - 1.11 MG/DL 09/18/2017 5:52 AM [facility] SODIUM S/P/B 141 136 - 145 MMOL/L 09/18/2017 5:52 AM [facility] POTASSIUM S/P/B 3.6 3.5 - 5.1 MMOL/L 09/18/2017 5:52 AM [facility] CHLORIDE S/P/B 109(H) 98 - 107 MMOL/L 09/18/2017 5:52 AM [facility] CO2 25.0 22.0 - 29.0 MMOL/L 09/18/2017 5:52 AM [facility] CALCIUM S/P/B 8.4 8.4 - 10.2 MG/DL 09/18/2017 5:52 AM [facility] EGFR NON-AFR. AMER. >60 >60 ML/MIN/1.7 3 M2 09/18/2017 5:52 AM [facility] EGFR AFR. AMER. >60 >60 ML/MIN/1.7 3 M2 09/18/2017 5:52 AM [facility] ANION GAP 7.0 7 - 16 MMOL/L 09/18/2017 5:52 AM [facility] 09/18/2017 5:00 AM DISPERSION MIXER 09/18/2017 5:29 AM DISPERSION MIXER us Generic Conversion Md MIR LABORATORY Final R esult [facility] [address] [place] [address] * (ABNORMAL) GLUCOSE BLOOD, QNT (09/17/2017 8:09 PM DISPERSION MIXER) GLUCOSE POC 171(H) 70 - 99 MG/DL 09/17/2017 9:07 PM DISPERSION MIXER [facility]DERS INTERFACE 09/17/2017 8:09 PM DISPERSION MIXER 09/17/2017 9:07 PM DISPERSION MIXER us Generic Conversion Md MIR LABORATORY Final R esult [facility] INTERFACE US * GLUCOSE BLOOD, QNT (09/17/2017 4:22 PM DISPERSION MIXER) GLUCOSE POC 96 70 - 99 MG/DL 09/17/2017 4:25 PM DISPERSION MIXER [facility] INTERFACE 09/17/2017 4:22 PM DISPERSION MIXER 09/17/2017 4:25 PM DISPERSION MIXER us Generic Conversion Md MIR LABORATORY Final R esult [facility] INTERFACE US * (ABNORMAL) GLUCOSE BLOOD, QNT (09/17/2017 11:58 AM DISPERSION MIXER) Pathologist [facility] GLUCOSE POC 247(H) 70 - 99 MG/DL 09/17/2017 12:02 PM DISPERSION MIXER [facility] INTERFACE 09/17/2017 11:5 8 AM DISPERSION MIXER 09/17/2017 12:01 PM DISPERSION MIXER us Generic Conversion Md MIR LABORAT[facility] Final R esult Performing Organization Address City/[facility]/ZIP Co de Phone Number [facility] INTERFACE US * (ABNORMAL) CBC W/DIFF AUTOMATED (09/17/2017 9:42 AM DISPERSION MIXER) [facility] WBC 9.2 4.5 - 10.8 x10'3/uL 09/17/2017 9:50 AM [facility] RBC 3.65(L) 4.10 - 5.40 x10'6/uL 09/17/2017 9:50 AM [facility] HGB 11.1(L) 12.0 - 16.0 G/DL 09/17/2017 9:50 AM [facility] HCT 32.9(L) 36.0 - 47.0 % 09/17/2017 9:50 AM [facility] MCV 90.1 78.0 - 100.0 FL 09/17/2017 9:50 AM [facility] MCH 30.4 27.0 - 31.0 PG 09/17/2017 9:50 AM [facility] MCHC 33.7 33.0 - 36.0 G/DL 09/17/2017 9:50 AM [facility] RDW 12.0 11.5 - 14.5 % 09/17/2017 9:50 AM [facility] PLT 199 150 - 350 x10'3/uL 09/17/2017 9:50 AM [facility] MPV 9.8 7.4 - 10.4 FL 09/17/2017 9:50 AM [facility] SEG NEUTROPHILS 81.0 % 8 9:50 AM [facility] LYMPHOCYTES 14.0 % 09/17/2017 9:50 AM [facility] MONOCYTES 4.2 % 09/17/2017 9:50 AM [facility] EOSINOPHILS 0.5 % 09/17/2017 9:50 AM [facility] BASOPHILS 0.1 % 09/17/2017 9:50 AM [facility] IMMATURE GRANS % 0.2 % 09/17/19 18 9:50 AM [facility] NRBC 0.0 % 09/17/2017 9:50 AM [facility] ABS. NEUTROPHILS 7.41 1.60 - 8.30 x10'3/uL 09/17/2017 9:50 AM [facility] ABS. LYMPHOCYTES 1.28 0.80 - 4.70 x10'3/uL 09/17/2017 9:50 AM [facility] ABS. MONOCYTES 0.38 0.00 - 1.50 x10'3/uL 09/17/2017 9:50 AM [facility] ABS. EOSINOPHILS 0.05 0.00 - 0.40 x10'3/uL 09/17/2017 9:50 AM [facility] ABS. BASOPHILS 0.01 0.00 - 0.20 x10'3/uL 09/17/2017 9:50 AM [facility] ABS. IMMATURE GRANULOCYTES 0.02 0.00 - 0.03 x10'3/uL 09/17/2017 9:50 AM [facility] ABS. NUCLEATED RBC'S 0.00 0.00 x10'3/uL 09/17/2017 9:50 AM [facility] OTHER (type in comments) 09/17/2017 9:42 AM DISPERSION MIXER 09/17/2017 9:48 AM DISPERSION MIXER Comment:WHOLE BLOOD SAMPLE us Generic Conversion Md [facility] LABORAT[facility] Final R esult [facility] [address] [place] [address], * (ABNORMAL) BASIC METABOLIC PANEL (09/17/2017 9:42 AM DISPERSION MIXER) GLUCOSE 161(H) 70 - 99 MG/DL 09/17/2017 10:05 AM [facility] BUN 6(L) 7 - 19 MG/DL 09/17/2017 10:05 AM [facility] CREATININE S/P/B 0.65 0.57 - 1.11 MG/DL 09/17/2017 10:05 AM [facility] SODIUM S/P/B 136 136 - 145 MMOL/L 09/17/2017 10:05 AM [facility] POTASSIUM S/P/B 3.8 3.5 - 5.1 MMOL/L 09/17/2017 10:05 AM [facility] CHLORIDE S/P/B 105 98 - 107 MMOL/L 09/17/2017 10:05 AM [facility] CO2 19.0(L) 22.0 - 29.0 MMOL/L 09/17/2017 10:05 AM [facility] CALCIUM S/P/B 8.8 8.4 - 10.2 MG/DL 09/17/2017 10:05 AM [facility] EGFR NON-AFR. AMER. >60 >60 ML/MIN/1.7 3 M2 09/17/2017 10:05 AM [facility] EGFR AFR. AMER. >60 >60 ML/MIN/1.7 3 M2 09/17/2017 10:05 AM [facility] ANION GAP 12.0 7 - 16 MMOL/L 09/17/2017 10:05 AM [facility] 09/17/2017 9:42 AM DISPERSION MIXER 09/17/2017 9:48 AM DISPERSION MIXER us Generic Conversion Md MIR LABORATORY Final R esult [facility] [place] [id number], * (ABNORMAL) GLUCOSE BLOOD, QNT (09/17/2017 5:58 AM DISPERSION MIXER) GLUCOSE POC 288(H) 70 - 99 MG/DL 09/17/2017 6:02 AM DISPERSION MIXER [facility]DERS INTERFACE 09/17/2017 5:58 AM DISPERSION MIXER 09/17/2017 6:02 AM DISPERSION MIXER us Generic Conversion Md MIR LABORATORY Final R theo Performing Organization Address [facility] Co de Phone Number [facility]DERS INTERFACE US * (ABNORMAL) GLUCOSE BLOOD, QNT (09/16/2017 9:10 PM DISPERSION MIXER) GLUCOSE POC 215(H) 70 - 99 MG/DL 09/16/2017 9:15 PM DISPERSION MIXER [facility] INTERFACE 09/16/2017 9:10 PM DISPERSION MIXER 09/16/2017 9:15 PM DISPERSION MIXER us Generic Conversion Md MIR LABORATORY Final [facility] Performing Organization Address [facility] Co de Phone Number [facility]DERS INTERFACE US * (ABNORMAL) GLUCOSE BLOOD, QNT (09/16/2017 4:43 PM DISPERSION MIXER) GLUCOSE POC 296(H) 70 - 99 MG/DL 09/16/2017 4:56 PM DISPERSION MIXER [facility] INTERFACE 09/16/2017 4:43 PM DISPERSION MIXER 09/16/2017 4:55 PM DISPERSION MIXER us Generic Conversion Md MIR LABORATORY Final R [facility] Performing Organization Address City/[facility]/ZIP Co de Phone Number [facility] ORDERS INTERFACE US * (ABNORMAL) GLUCOSE BLOOD, QNT (09/16/2017 11:52 AM DISPERSION MIXER) GLUCOSE POC 160(H) 70 - 99 MG/DL 09/16/2017 12:07 PM DISPERSION MIXER [facility] INTERFACE 09/16/2017 11:5 2 AM DISPERSION MIXER 09/16/2017 12:07 PM DISPERSION MIXER us Generic Conversion Md [facility]IR LABORAT[facility] Final R esult [facility] INTERFACE US * (ABNORMAL) CBC W/DIFF AUTOMATED (09/16/2017 5:45 AM DISPERSION MIXER) WBC 10.7 4.5 - 10.8 x10'3/uL 09/16/2017 6:17 AM [facility] RBC 3.61(L) 4.10 - 5.40 x10'6/uL 09/16/2017 6:17 AM [facility] HGB 11.4(L) 12.0 - 16.0 G/DL 09/16/2017 6:17 AM [facility] HCT 32.5(L) 36.0 - 47.0 % 09/16/2017 6:17 AM [facility] MCV 90.0 78.0 - 100.0 FL 09/16/2017 6:17 AM [facility] MCH 31.6(H) 27.0 - 31.0 PG 09/16/2017 6:17 AM [facility] MCHC 35.1 33.0 - 36.0 G/DL 09/16/2017 6:17 AM [facility] RDW 11.9 11.5 - 14.5 % 09/16/2017 6:17 AM [facility] PLT 155 150 - 350 x10'3/uL 09/16/2017 6:17 AM [facility] MPV 10.1 7.4 - 10.4 FL 09/16/2017 6:17 AM [facility] SEG NEUTROPHILS 82.3 % 8 6:17 AM [facility] LYMPHOCYTES 11.9 % 09/16/2017 6:17 AM [facility] MONOCYTES 5.3 % 09/16/2017 6:17 AM [facility] EOSINOPHILS 0.1 % 09/16/2017 6:17 AM [facility] BASOPHILS 0.1 % 09/16/2017 6:17 AM [facility] IMMATURE GRANS % 0.3 % 09/16/19 18 6:17 AM [facility] NRBC 0.0 % 09/16/2017 6:17 AM [facility] ABS. NEUTROPHILS 8.78(H) 1.60 - 8.30 x10'3/uL 09/16/2017 6:17 AM [facility] ABS. LYMPHOCYTES 1.27 0.80 - 4.70 x10'3/uL 09/16/2017 6:17 AM [facility] ABS. MONOCYTES 0.56 0.00 - 1.50 x10'3/uL 09/16/2017 6:17 AM [facility] ABS. EOSINOPHILS 0.01 0.00 - 0.40 x10'3/uL 09/16/2017 6:17 AM [facility] ABS. BASOPHILS 0.01 0.00 - 0.20 x10'3/uL 09/16/2017 6:17 AM [facility] ABS. IMMATURE GRANULOCYTES 0.03 0.00 - 0.03 x10'3/uL 09/16/2017 6:17 AM [facility] ABS. NUCLEATED RBC'S 0.00 0.00 x10'3/uL 09/16/2017 6:17 AM [facility] OTHER (type in comments) 09/16/2017 5:45 AM DISPERSION MIXER 09/16/2017 6:12 AM DISPERSION MIXER Comment:WHOLE BLOOD SAMPLE us Generic Conversion Md [facility] LABORAT[facility] Final R esult [facility] [address] [employer] [place] [address], * (ABNORMAL) BASIC METABOLIC PANEL (09/16/2017 5:45 AM DISPERSION MIXER) [facility] Signature GLUCOSE 89 70 - 99 MG/DL 09/16/2017 6:37 AM [facility] BUN 5(L) 7 - 19 MG/DL 09/16/2017 6:37 AM [facility] CREATININE S/P/B 0.63 0.57 - 1.11 MG/DL 09/16/2017 6:37 AM [facility] SODIUM S/P/B 139 136 - 145 MMOL/L 09/16/2017 6:37 AM [facility] POTASSIUM S/P/B 3.3(L) 3.5 - 5.1 MMOL/L 09/16/2017 6:37 AM [facility] CHLORIDE S/P/B 106 98 - 107 MMOL/L 09/16/2017 6:37 AM [facility] CO2 23.0 22.0 - 29.0 MMOL/L 09/16/2017 6:37 AM [facility] CALCIUM S/P/B 7.8(L) 8.4 - 10.2 MG/DL 09/16/2017 6:37 AM [facility] EGFR NON-AFR. AMER. >60 >60 ML/MIN/1.7 3 M2 09/16/2017 6:37 AM [facility] EGFR AFR. AMER. >60 >60 ML/MIN/1.7 3 M2 09/16/2017 6:37 AM [facility] ANION GAP 10.0 7 - 16 MMOL/L 09/16/2017 6:37 AM [facility] 09/16/2017 5:45 AM DISPERSION MIXER 09/16/2017 6:12 AM [facility] us Generic Conversion Md [facility]IR LABORATORY Final R esult [facility] [address] [place] [address], * GLUCOSE BLOOD, QNT (09/16/2017 3:15 AM DISPERSION MIXER) GLUCOSE POC 78 70 - 99 MG/DL 09/16/2017 3:17 AM [facility] ORDERS INTERFACE 09/16/2017 3:15 AM DISPERSION MIXER 09/16/2017 3:17 AM DISPERSION MIXER us Generic Conversion Md [facility] LABORATORY Final R esult [facility] ORDERS INTERFACE US * (ABNORMAL) GLUCOSE BLOOD, QNT (09/16/2017 2:38 AM DISPERSION MIXER) GLUCOSE POC 49(L) 70 - 99 MG/DL 09/16/2017 2:40 AM [facility] ORDERS INTERFACE 09/16/2017 2:38 AM DISPERSION MIXER 09/16/2017 2:40 AM DISPERSION MIXER us Generic Conversion Md [facility] LABORAT[facility] Final R esult Performing Organization Address [facility] Co de Phone Number [facility] ORDERS INTERFACE US * (ABNORMAL) URINALYSIS WI REFLEX TO CULTURE (09/15/2017 7:00 PM DISPERSION MIXER) COLOR (U) YELLOW 09/15/2017 7:20 PM [facility] TRANSPARENCY SLIGHTLY CLOUDY 09/15/2017 7:20 PM [facility] SPECIFIC GRAVITY (U) 1.015 1.000 - 1.025 09/15/2017 7:20 PM [facility] U PH 6.0 5.0 - 8.0 09/15/2017 7:20 PM [facility] LEUKOCYTES (U) NEGATIVE NEGATIVE 09/15/2017 7:20 PM [facility] NITRITES NEGATIVE NEGATIVE 09/15/2017 7:20 PM [facility] PROTEIN (U) NEGATIVE NEGATIVE 09/15/2017 7:20 PM [facility] URINE GLUCOSE NEGATIVE NEGATIVE 09/15/2017 7:20 PM [facility] KETONES MG/DL (U) 1+(A) NEGATIVE 09/15/2017 7:20 PM [facility] UROBILINOGEN 0.2 <1.0 EU/DL 09/15/2017 7:20 PM [facility] BILIRUBIN (U) NEGATIVE NEGATIVE 09/15/2017 7:20 PM [facility] BLOOD (U) NEGATIVE NEGATIVE 09/15/2017 7:20 PM DISPERSION MIXER [facility] WBC/HPF 0-5 0 - 5 /HPF 09/15/2017 7:20 PM [facility] RBC/HPF 0-5 0 - 5 /HPF 09/15/2017 7:20 PM [facility] EPI/HPF MODERATE /LPF 09/15/2017 7:20 PM [facility] BACTERIA (U) 1+ /HPF 09/15/2017 7:20 PM [facility] MUCUS PRESENT 09/15/2017 7:20 PM [facility] CULTURE & SENSITIVITY INDICATED? NOT INDICATED NOT INDICATED 09/15/2017 7:20 PM [facility] OTHER (type in comments) 09/15/2017 7:00 PM DISPERSION MIXER 09/15/2017 7:07 PM DISPERSION MIXER Comment:URINE SPECIMEN~URINE SPECIMEN us Generic Conversion Md MIR URINE [place] [address], [place] [phone] * TEST URINE (09/15/2017 7:00 PM DISPERSION MIXER) PREG TEST NEGATIVE 09/15/2017 7:17 PM [facility] SPECIFIC GRAVITY (U) 1.015 09/15/2017 7:17 PM [facility] URINE SPECIMEN / Unknown 09/15/2017 7:00 PM DISPERSION MIXER 09/15/2017 7:07 PM DISPERSION MIXER us Generic Conversion Md MIR URINE ORDERABLES Final Result Performing Organization Address City/[facility]/ZIP Co de Phone Number [facility] [address] [place] [address], [place] [phone] * INFLUENZA A & B (09/15/2017 6:34 PM DISPERSION MIXER) SPEC DESCRIPTION NASOPHARYNGEAL SWAB 09/15/2017 6:13 PM DISPERSION MIXER [facility] SPECIAL REQUESTS NO SPECIAL REQUEST 09/15/2017 6:13 PM DISPERSION MIXER [facility] RESULT NEGATIVE 09/15/2017 7:05 PM DISPERSION MIXER [facility] RESULT A NEGATIVE RESULT DOES NOT EXCLUDE INFLUENZA VIRUS INFECTION. ??IF INFLUENZA IS CIRCULATING IN YOUR COMMUNITY, A DIAGNOSIS OF INFLUENZA SHOULD BE CONSIDERED BASED ON A PATIENT'S CLINICAL PRESENTATION AND EMPIRIC ANTIVIRAL TREATMENT SHOULD BE CONSIDERED IF INDICATED. 09/15/2017 7:05 PM DISPERSION MIXER [facility] NASOPHARYNGEAL SWAB / Unknown 09/15/2017 6:34 PM DISPERSION MIXER 09/15/2017 6:42 PM DISPERSION MIXER us Generic Conversion Md MIR MICROBIOLOGY - GENERAL ORDERABLES Final Result Performing Organization Address City/[facility]/ZIP Co de Phone Number [facility] [address] [place], [place] [address], [place] [phone] * CULTURE, BACTERIA, BLOOD (09/15/2017 5:42 PM DISPERSION MIXER) SPEC DESCRIPTION BLOOD 09/15/2017 5:25 PM DISPERSION MIXER [facility] SPECIAL REQUESTS NO SPECIAL REQUEST 09/15/2017 5:25 PM DISPERSION MIXER [facility] CULTURE RESULT NO GROWTH 5 DAYS 09/20/2017 6:22 AM DISPERSION MIXER [facility] BLOOD SPECIMEN OBTAINED FOR BLOOD CULTURE / Unknown 09/15/2017 5:42 PM DISPERSION MIXER 09/15/2017 5:48 PM DISPERSION MIXER us Generic Conversion Md MIR MICROBIOLOGY - GENERAL ORDERABLES Final Result [facility] [address] [place] [address], [place] [phone] * CULTURE, BACTERIA, BLOOD (09/15/2017 5:35 PM DISPERSION MIXER) SPEC DESCRIPTION BLOOD 09/15/2017 5:25 PM DISPERSION MIXER [facility] SPECIAL REQUESTS NO SPECIAL REQUEST 09/15/2017 5:25 PM DISPERSION MIXER [facility] CULTURE RESULT NO GROWTH 5 DAYS 09/20/2017 6:22 AM DISPERSION MIXER [facility] BLOOD SPECIMEN OBTAINED FOR BLOOD CULTURE / Unknown 09/15/2017 5:35 PM DISPERSION MIXER 09/15/2017 5:48 PM DISPERSION MIXER us Generic Conversion Md MIR MICROBIOLOGY - GENERAL ORDERABLES Final Result Performing Organization Address [facility]/ZIP Co de Phone Number [facility] [address] [place] [address], [place] [phone] * (ABNORMAL) LIPASE (09/15/2017 5:35 PM DISPERSION MIXER) LIPASE <2(L) 8 - 78 UNITS/L 09/15/2017 6:07 PM DISPERSION MIXER [facility] SERUM OR PLASMA SPECIMEN / Unknown 09/15/2017 5:35 PM DISPERSION MIXER 09/15/2017 5:47 PM DISPERSION MIXER us Generic Conversion Md MIR LABORATORY Final R esult Performing Organization Address [facility] Co de Phone Number [facility] [address] [place] [address], [place] [phone] * LACTIC ACID (09/15/2017 5:35 PM DISPERSION MIXER) LACTIC ACID VENOUS 0.9 0.5 - 2.2 MMOL/L 09/15/2017 6:00 PM DISPERSION MIXER [facility] PLASMA SPECIMEN / Unknown 09/15/2017 5:35 PM DISPERSION MIXER 09/15/2017 5:47 PM DISPERSION MIXER us Generic Conversion Md MIR LABORATORY Final R esult Performing Organization Address [facility]/ZIP Co de Phone Number [facility] [address] [place] [address], [place] [phone] * (ABNORMAL) COMPREHENSIVE METABOLIC PANEL (09/15/2017 5:35 PM DISPERSION MIXER) GLUCOSE 151(H) 70 - 99 MG/DL 09/15/2017 6:07 PM DISPERSION MIXER [facility] BUN 6(L) 7 - 19 MG/DL 09/15/2017 6:07 PM [facility] CREATININE S/P/B 0.72 0.57 - 1.11 MG/DL 09/15/2017 6:07 PM [facility] SODIUM S/P/B 133(L) 136 - 145 MMOL/L 09/15/2017 6:07 PM [facility] POTASSIUM S/P/B 3.6 3.5 - 5.1 MMOL/L 09/15/2017 6:07 PM [facility] CHLORIDE S/P/B 98 98 - 107 MMOL/L 09/15/2017 6:07 PM [facility] CO2 24.0 22.0 - 29.0 MMOL/L 09/15/2017 6:07 PM [facility] CALCIUM S/P/B 9.1 8.4 - 10.2 MG/DL 09/15/2017 6:07 PM [facility] BILIRUBIN TOTAL S/P/B 0.4 0.2 - 1.2 MG/DL 09/15/2017 6:07 PM [facility] TOTAL PROTEIN S/P/B 7.6 6.0 - 8.3 G/DL 09/15/2017 6:07 PM [facility] ALBUMIN S/P/B 3.9 3.5 - 5.2 G/DL 09/15/2017 6:07 PM [facility] AST 22 5 - 34 U/L 09/15/2017 6:07 PM [facility] ALT 14 0 - 55 U/L 09/15/2017 6:07 PM [facility] ALKALINE PHOSPHATASE S/P/B 83 50 - 136 U/L 09/15/2017 6:07 PM [facility] OSMOLALITY (CALC) 267(L) 275 - 300 MOSM/KG 09/15/2017 6:07 PM [facility] A/G RATIO 1.1 1.0 - 1.6 RATIO 09/15/2017 6:07 PM [facility] BUN CREATININE RATIO 8.3(L) 12 - 20 09/15/2017 6:07 PM [facility] ANION GAP 11.0 7 - 16 MMOL/L 09/15/2017 6:07 PM DISPERSION MIXER [facility] EGFR NON-AFR. AMER. >60 >60 ML/MIN/1.7 3 M2 09/15/2017 6:07 PM DISPERSION MIXER [facility] EGFR AFR. AMER. >60 >60 ML/MIN/1.7 3 M2 09/15/2017 6:07 PM DISPERSION MIXER [facility] 09/15/2017 5:35 PM DISPERSION MIXER 09/15/2017 5:47 PM DISPERSION MIXER us Generic Conversion Md MIR LABORATORY Final R esult [facility] [address] [employer] [place] [address], * (ABNORMAL) CBC W/DIFF AUTOMATED (09/15/2017 5:35 PM DISPERSION MIXER) WBC 9.0 4.5 - 10.8 x10'3/uL 09/15/2017 5:50 PM [facility] RBC 4.21 4.10 - 5.40 x10'6/uL 09/15/2017 5:50 PM [facility] HGB 13.1 12.0 - 16.0 G/DL 09/15/2017 5:50 PM [facility] HCT 37.1 36.0 - 47.0 % 09/15/2017 5:50 PM [facility] MCV 88.1 78.0 - 100.0 FL 09/15/2017 5:50 PM [facility] MCH 31.1(H) 27.0 - 31.0 PG 09/15/2017 5:50 PM [facility] MCHC 35.3 33.0 - 36.0 G/DL 09/15/2017 5:50 PM [facility] RDW 11.8 11.5 - 14.5 % 09/15/2017 5:50 PM [facility] PLT 183 150 - 350 x10'3/uL 09/15/2017 5:50 PM [facility] MPV 9.6 7.4 - 10.4 FL 09/15/2017 5:50 PM DISPERSION MIXER [facility] SEG NEUTROPHILS 81.3 % 8 5:50 PM [facility] LYMPHOCYTES 14.0 % 09/15/2017 5:50 PM [facility] MONOCYTES 4.1 % 09/15/2017 5:50 PM [facility] EOSINOPHILS 0.2 % 09/15/2017 5:50 PM [facility] BASOPHILS 0.1 % 09/15/2017 5:50 PM [facility] IMMATURE GRANS % 0.3 % 09/15/19 18 5:50 PM [facility] NRBC 0.0 % 09/15/2017 5:50 PM [facility] ABS. NEUTROPHILS 7.31 1.60 - 8.30 x10'3/uL 09/15/2017 5:50 PM [facility] ABS. LYMPHOCYTES 1.26 0.80 - 4.70 x10'3/uL 09/15/2017 5:50 PM [facility] ABS. MONOCYTES 0.37 0.00 - 1.50 x10'3/uL 09/15/2017 5:50 PM [facility] ABS. EOSINOPHILS 0.02 0.00 - 0.40 x10'3/uL 09/15/2017 5:50 PM [facility] ABS. BASOPHILS 0.01 0.00 - 0.20 x10'3/uL 09/15/2017 5:50 PM [facility] ABS. IMMATURE GRANULOCYTES 0.03 0.00 - 0.03 x10'3/uL 09/15/2017 5:50 PM [facility] ABS. NUCLEATED RBC'S 0.00 0.00 x10'3/uL 09/15/2017 5:50 PM [facility] OTHER (type in comments) 09/15/2017 5:35 PM DISPERSION MIXER 09/15/2017 5:47 PM DISPERSION MIXER Comment:WHOLE BLOOD SAMPLE us Generic Conversion Md MIR LABORATORY Final R esult [facility] [address] [place] [address], documented in this encounter Visit Diagnoses Diagnosis Pneumonia Pneumonia, organism unspecified documented in this encounter
--- OUTSIDE RECORDS SUMMARY | 2024-08-03 01:12 | XMS_ITS | Encounter Summary ---
Author Organization [facility] Address [facility] [facility] [place] [address] [place] [address] Care Team Providers Care Truck Washer Name Role Phone Unavailable Primary Care Provider Unavailabl e Encounter Details Date Type Department Care Team (Late st Contact Info) Description 08/07/2017 Abstract [facility] [address] [place] [address] Raz [place] Jr., MD [address] [place] [address] Social History Tobacco Use Types Packs/Day Years Used Date Smoking Tobacco: Never Assessed Comments Unknown Sex and Gender Information Value Date Recorded Sex Assigned at Female 04/08/2018 12:39 PM CDT Legal Sex Female 10:27 PM CDT Gender Identity Female 04/08/2018 12:39 PM CDT Sexual Orientation Straight 04/08/2018 12 :39 PM CDT documented as of this encounter Plan of Treatment Not on file documented as of this encounter Visit Diagnoses Diagnosis Acute noninfective otitis externa of left ear Other acute otitis externa documented in this encounter
--- OUTSIDE RECORDS SUMMARY | 2024-08-03 01:12 | XMS_ITS | Encounter Summary ---
Author Organization [facility] Address [address] [facility] [place] [address] [place] [address] Care Team Providers Care Geological Specialist Name Role Phone Unavailable Primary Care Provider Unavailabl e Encounter Details Date Type Department Care Team (Late st Contact Info) Description 01/05/2017 Abstract [facility] [address] [facility] [place] [address] Cindy Moon MD [address] [place] [address] Social History Tobacco Use Types Packs/Day [...] Priority Date/Time Associated Diagnosis Comments URINALYSIS STAT 01/05/2017 9:10 AM CDT URINE BACTERIA CULTURE STAT 01/05/2017 9:10 AM CDT BETA-HYDROXYBUTYRATE STAT 01/05/2017 9:07 AM CDT BLOOD GAS, VENOUS STAT 01/05/2017 9:0 7 AM CDT PROTHROMBIN TIME, VENOUS STAT 01/05/2017 9:07 AM CDT BASIC METABOLIC PANEL STAT 01/05/2017 9:07 AM CDT CBC W/DIFF AUTOMATED STAT 01/05/2017 9:07 AM CDT POCT GLUCOSE - ALARCON DOCKED DEVICE Routine 01/05/2017 8:42 AM CDT documented in this encounter Results * CULTURE URINE (01/05/2017 9:10 AM CDT) SPEC DESCRIPTION URINE CLEAN CATCH 01/05/2017 9:15 AM CDT [facility] SPECIAL REQUESTS NO SPECIAL REQUEST 01/05/2017 9:15 AM CDT [facility] CULTURE RESULT FEW CONTAMINANTS 12/21 3:59 AM CDT [facility] URINE SPECIMEN OBTAINED BY CLEAN CATCH PROCEDURE / Unknown 01/05/2017 9:10 AM CDT 01/05/2017 9:17 AM CDT us Generic Conversion Md MIR MICROBIOLOGY - GENERAL ORDERABLES Final Result Performing Organization Address City/State/[facility] Co de Phone Number [facility] [address] [place] [address], [place] [phone] [id number] [facility] [address] [place] [address], [place] [phone] * (ABNORMAL) URINALYSIS (01/05/2017 9:10 AM CDT) COLOR (U) YELLOW 01/05/2017 9:32 AM CDT [facility] TRANSPARENCY HAZY 01/05/2017 9:32 AM CDT [facility] SPECIFIC GRAVITY (U) 1.025 1.000 - 1.025 01/05/2017 9:32 AM CDT [facility] U PH 6.0 5.0 - 8.0 01/05/2017 9:32 AM CDT [facility] LEUKOCYTES (U) NEGATIVE NEGATIVE 01/05/2017 9:32 AM CDT [facility] NITRITES NEGATIVE NEGATIVE 01/05/2017 9:32 AM CDT [facility] PROTEIN (U) TRACE(A) NEGATIVE 01/05/2017 9:32 AM CDT [facility] URINE GLUCOSE 2+(A) NEGATIVE 01/05/2017 9:32 AM CDT [facility] KETONES MG/DL (U) TRACE(A) NEGATIVE 01/05/2017 9:32 AM CDT [facility] UROBILINOGEN 0.2 <1.0 EU/DL 01/05/2017 9:32 AM CDT [facility] BILIRUBIN (U) NEGATIVE NEGATIVE 01/05/2017 9:32 AM CDT [facility] BLOOD (U) NEGATIVE NEGATIVE 01/05/2017 9:32 AM CDT [facility] WBC/HPF 5-10(A) 0 - 5 /HPF 01/05/2017 9:32 AM CDT [facility] RBC/HPF 0-5 0 - 5 /HPF 01/05/2017 9:32 AM CDT [facility] EPI/HPF MANY /LPF 01/05/2017 9:32 AM CDT [facility] MUCUS PRESENT 01/05/2017 9:32 AM CDT [facility] 01/05/2017 9:10 AM CDT 01/05/2017 9:17 AM CDT us Generic Conversion Md MIR URINE ORDERABLES Final Result [facility] [address] [place] [address], * Blood gas, venous (01/05/2017 9:07 AM CDT) O2 SAT VENOUS 51 40 - 70 % 01/05/2017 9:22 AM CDT [facility] PH VENOUS 7.39 7.35 - 7.45 01/05/2017 9:22 AM CDT [facility] PCO2 45.6 41.0 - 51.0 MMHG 01/05/2017 9:22 AM CDT [facility] PO2 VENOUS 30.0 20.0 - 40.0 MM HG 01/05/2017 9:22 AM CDT [facility] VENOUS BASE EXCESS 1.9 MMOL/L 01/05/2017 9:22 AM CDT [facility] BICARB VENOUS 26.9 22.0 - 29.0 MMOL/L 01/05/2017 9:22 AM CDT [facility] TCO2 28.3 25.0 - 29.0 MMOL/L 01/05/2017 9:22 AM CDT [facility] LITER FLOW ROOM AIR 01/05/2017 9:13 AM CDT [facility] 01/05/2017 9:07 AM CDT 01/05/2017 9:13 AM CDT us Generic Conversion Md MIR LABORATORY Final R eslucina Performing Organization Address City/[facility]/ZIP Co de Phone Number [facility] [address] [place] [address], [place] [phone] * PROTIME/INR, VENOUS (01/05/2017 9:07 AM CDT) PROTIME 12.0 10.5 - 12.9 SEC 01/05/2017 9:22 AM CDT [facility] INR 1.0 0.9 - 1.1 01/05/2017 9:22 AM CDT [facility] 01/05/2017 9:07 AM CDT 01/05/2017 9:13 AM CDT us Generic Conversion Md MIR LABORATORY Final R eslucina [facility] [address] [place] [address], * CBC W/DIFF AUTOMATED (01/05/2017 9:07 AM CDT) WBC 7.4 4.5 - 10.8 x10'3/uL 01/05/2017 9:15 AM CDT [facility] RBC 4.76 4.10 - 5.40 x10'6/uL 01/05/2017 9:15 AM CDT [facility] HGB 14.6 12.0 - 16.0 G/DL 01/05/2017 9:15 AM CDT [facility] HCT 40.8 36.0 - 47.0 % 01/05/2017 9:15 AM CDT [facility] MCV 85.7 78.0 - 100.0 FL 01/05/2017 9:15 AM CDT [facility] MCH 30.7 27.0 - 31.0 PG 01/05/2017 9:15 AM CDT [facility] MCHC 35.8 33.0 - 36.0 G/DL 01/05/2017 9:15 AM CDT [facility] RDW 11.8 11.5 - 14.5 % 01/05/2017 9:15 AM CDT [facility] PLT 304 150 - 350 x10'3/uL 01/05/2017 9:15 AM CDT [facility] MPV 9.8 7.4 - 10.4 FL 01/05/2017 9:15 AM CDT [facility] SEG NEUTROPHILS 60.2 % 7 9:15 AM CDT [facility] LYMPHOCYTES 31.4 % 01/05/2017 9:15 AM CDT [facility] MONOCYTES 5.9 % 01/05/2017 9:15 AM CDT [facility] EOSINOPHILS 1.9 % 01/05/2017 9:15 AM CDT [facility] BASOPHILS 0.5 % 01/05/2017 9:15 AM CDT [facility] IMMATURE GRANS % 0.1 % 01/06/20 17 9:15 AM CDT [facility] NRBC 0.0 % 01/05/2017 9:15 AM CDT [facility] ABS. NEUTROPHILS 4.45 1.60 - 8.30 x10'3/uL 01/05/2017 9:15 AM CDT [facility] ABS. LYMPHOCYTES 2.32 0.80 - 4.70 x10'3/uL 01/05/2017 9:15 AM CDT [facility] ABS. MONOCYTES 0.44 0.00 - 1.50 x10'3/uL 01/05/2017 9:15 AM CDT [facility] ABS. EOSINOPHILS 0.14 0.00 - 0.40 x10'3/uL 01/05/2017 9:15 AM CDT [facility] ABS. BASOPHILS 0.04 0.00 - 0.20 x10'3/uL 01/05/2017 9:15 AM CDT [facility] ABS. IMMATURE GRANULOCYTES 0.01 0.00 - 0.03 x10'3/uL 01/05/2017 9:15 AM CDT [facility] ABS. NUCLEATED RBC'S 0.00 0.00 x10'3/uL 01/05/2017 9:15 AM CDT [facility] OTHER (type in comments) 01/05/2017 9:07 AM CDT 01/05/2017 9:13 AM CDT Comment:WHOLE BLOOD SAMPLE us Generic Conversion Md MIR LABORATORY Final R esult [facility] [address] [place] [address], * (ABNORMAL) BASIC METABOLIC PANEL (01/05/2017 9:07 AM CDT) GLUCOSE 174(H) 70 - 99 MG/DL 01/05/2017 9:33 AM CDT [facility] BUN 13 7 - 19 MG/DL 01/05/2017 9:33 AM CDT [facility] CREATININE S/P/B 0.81 0.57 - 1.11 MG/DL 01/05/2017 9:33 AM CDT [facility] SODIUM S/P/B 142 136 - 145 MMOL/L 01/05/2017 9:33 AM CDT [facility] POTASSIUM S/P/B 3.9 3.5 - 5.1 MMOL/L 01/05/2017 9:33 AM CDT [facility] CHLORIDE S/P/B 102 98 - 107 MMOL/L 01/05/2017 9:33 AM CDT [facility] CO2 27.0 22.0 - 29.0 MMOL/L 01/05/2017 9:33 AM CDT [facility] CALCIUM S/P/B 10.0 8.4 - 10.2 MG/DL 01/05/2017 9:33 AM CDT [facility] EGFR NON-AFR. AMER. >60 >60 ML/MIN/1.7 3 M2 01/05/2017 9:33 AM CDT [facility] EGFR AFR. AMER. >60 >60 ML/MIN/1.7 3 M2 01/05/2017 9:33 AM CDT [facility] ANION GAP 13.0 7 - 16 MMOL/L 01/05/2017 9:33 AM CDT [facility] 01/05/2017 9:07 AM CDT 01/05/2017 9:13 AM CDT us Generic Conversion Md MIR LABORATORY [place] [address], * (ABNORMAL) BETA-HYDROXYBUTYRATE (01/05/2017 9:07 AM CDT) BETA-HYDROXYBU TYRATE 0.9(H) 0.0 - 0.3 MMOL/L 01/05/2017 9:17 AM CDT [facility] SERUM OR PLASMA SPECIMEN / Unknown 01/05/2017 9:07 AM CDT 01/05/2017 9:13 AM CDT us Generic Conversion Md MIR LABORATORY Final R esult [facility] [address] [place], [place] [address] [address], * (ABNORMAL) POCT glucose (01/05/2017 8:42 AM CDT) GLUCOSE POC 176(H) 70 - 99 MG/DL 01/05/2017 9:12 PM CDT [facility] ORDERS INTERFACE 01/05/2017 8:42 AM CDT 01/05/2017 9:11 PM CDT us Generic Conversion Md MIR POCT ORDERABLES - DEVIC E Final Result [facility] ORDERS INTERFACE US documented in this encounter Visit Diagnoses Diagnosis Gastritis without bleeding Unspecified gastritis and gastroduodenitis without mention of hemorrhage documented in this encounter
--- OUTSIDE RECORDS SUMMARY | 2024-08-03 01:12 | XMS_ITS | Encounter Summary ---
Author Organization [facility] Address [facility] [place] [address] [place] [address] Care Team Providers Care Maintenance Supervisor 2Nd Shift Name Role Phone Unavailable Primary Care Provider Unavailabl e Encounter Details Date Type Department Care Team (Late st Contact Info) Description 12/22/2014 Abstract [facility] [address] [facility] [place] [address] Sami Aguilera MD [address] [place] [address] Social History Tobacco Use Types Packs/Day [...] as of this encounter Visit Diagnoses Diagnosis Allergy to latex documented in this encounter
--- OUTSIDE RECORDS SUMMARY | 2024-08-03 01:12 | XMS_ITS | Encounter Summary ---
Author Organization [facility] Address [facility] [facility] [place] [address] [place] [address] Care Team Providers Care Blending Tank Tender Name Role Phone Unavailable Primary Care Provider Unavailabl e Encounter Details Date Type Department Care Team (Late st Contact Info) Description 07/16/2012 Abstract [facility] [address] [facility] [place] [address] Isaias Grier MD [address] [place] [phone] Social History Tobacco Use Types Packs/Day [...] as of this encounter Visit Diagnoses Diagnosis Acidosis documented in this encounter
--- OUTSIDE RECORDS SUMMARY | 2024-08-03 01:12 | XMS_ITS | Encounter Summary ---
Author Organization [facility] Address [facility] [place] [address] [place] [address] Care Team Providers Care Refractory Furnace Designer Name Role Phone Unavailable Primary Care Provider Unavailabl e Encounter Details Date Type Department Care Team (Late st Contact Info) Description 04/20/2012 Abstract [facility] [address] [facility] [place] [address] Social History Tobacco Use Types Packs/Day Years [...] as of this encounter Visit Diagnoses Diagnosis Intestinal infections due to other organisms documented in this encounter
--- OUTSIDE RECORDS SUMMARY | 2024-08-03 01:12 | XMS_ITS | Encounter Summary ---
Author Organization [facility] Address [facility] [facility] [place] [address] [place] [address] Care Team Providers Care Service Transformer Repair Supervisor Name Role Phone Unavailable Primary Care Provider Unavailabl e Encounter Details Date Type Department Care Team (Late st Contact Info) Description 06/02/[address] [facility] [address] [place] [address] , Carolee Duenas MD Social History Tobacco [...] as of this encounter Visit Diagnoses Diagnosis Abdominal pain Abdominal pain, unspecified site documented in this encounter
--- OUTSIDE RECORDS SUMMARY | 2024-08-03 01:12 | XMS_ITS | Encounter Summary ---
Author Organization [facility] Address [address] [facility] [place] [address] [place] [address] Care Team Providers Care Filtration Supervisor Name Role Phone Unavailable Primary Care Provider Unavailabl e Encounter Details Date Type Department Care Team (Late st Contact Info) Description 11/28/2015 Abstract [facility] [address] [place] [address] Shane De La Rosa MD [address] [facility] [address] [place] [address] Social History Tobacco Use Types Packs/Day Years [...] as of this encounter Visit Diagnoses Diagnosis Type 1 diabetes mellitus with ketoacidosis and without coma ([facility]) Type I (juvenile type) diabetes mellitus with ketoacidosis, not stated as uncontrolled documented in this encounter
--- OUTSIDE RECORDS SUMMARY | 2024-08-03 01:12 | XMS_ITS | Encounter Summary ---
Author Organization [facility] Address [facility] [facility] [place] [address] [place] [address] Care Team Providers Care Network Lead Name Role Phone Unavailable Primary Care Provider Unavailabl e Encounter Details Date Type Department Care Team (Late st Contact Info) Description 06/15/2014 Abstract [facility] [address] [facility] [place] [address] Social History Tobacco Use Types Packs/Day Years [...]
--- OUTSIDE RECORDS SUMMARY | 2024-08-03 01:12 | XMS_ITS | Encounter Summary ---
Author Organization [facility] Address [facility]6 [facility] [place] [address] [place] [address] Care Team Providers Care Cover Mat Machine Operator Name Role Phone Unavailable Primary Care Provider Unavailabl e Encounter Details Date Type Department Care Team (Late st Contact Info) Description 08/07/2017 Abstract [place] [facility] [address] [place] [address] Rigo Le MD [address] [place], [place] [id number] Social History Tobacco Use Types Packs/Day Years [...] Procedure Name Priority Date/Time Associated Diagnosis Comments CULTURE, WOUND, W/GRAM STAIN Routine 08/07/2017 7:30 PM FOUNDRY EQUIPMENT MECHANIC CULTURE, BACTERIA, BLOOD STAT 08/07/2017 7:02 PM FOUNDRY EQUIPMENT MECHANIC BASIC METABOLIC PANEL STAT 08/07/2017 5:05 PM FOUNDRY EQUIPMENT MECHANIC CBC W/DIFF AUTOMATED STAT 08/07/2017 5:05 PM FOUNDRY EQUIPMENT MECHANIC documented in this encounter Results * CULTURE, WOUND, W/GRAM STAIN (08/07/2017 7:30 PM FOUNDRY EQUIPMENT MECHANIC) SPEC DESCRIPTION EAR 08/07/2017 7:28 PM FOUNDRY EQUIPMENT MECHANIC [facility] SPECIAL REQUESTS NO SPECIAL REQUEST 08/07/2017 7:28 PM FOUNDRY EQUIPMENT MECHANIC [facility] CULTURE RESULT MANYSTAPHYLOCOCCUS AUREUS 08/10/2017 10:10 AM FOUNDRY EQUIPMENT MECHANIC [facility] EAR SWAB SPECIMEN / Unknown 08/07/2017 7:30 PM FOUNDRY EQUIPMENT MECHANIC 08/07/2017 7:39 PM FOUNDRY EQUIPMENT MECHANIC Narrative Organism Antibiotic Method Susceptibility Unknown CLINDAMYCIN JASON (VITEK) Sensitive Unknown ERYTHROMYCIN JASON (VITEK) Sensitive Unknown GENTAMICIN JASON (VITEK) Sensitive Unknown OXACILLIN JASON (VITEK) Sensitive Unknown PENICILLIN G JASON (VITEK) Resistant Unknown RIFAMPIN JASON (VITEK) Sensitive Unknown TRIMETH-SULFAMETH. JASON (VITEK) Sensitive Unknown TETRACYCLINE JASON (VITEK) Sensitive Unknown TIGECYCLINE JASON (VITEK) Sensitive Unknown VANCOMYCIN JASON (VITEK) Sensitive Comment: Organism code(s) sent by the ancillary, 'MANYSTAPHYLOCOCCUS AUREUS', not recognized. Organism 'UNKNOWN' was substituted in its place. us Generic Conversion Md MIR MICROBIOLOGY - GENERAL ORDERABLES Final Result [facility] [address] [place] [address], [id number] [facility] [place] [address], * CULTURE, BACTERIA, BLOOD (08/07/2017 7:02 PM FOUNDRY EQUIPMENT MECHANIC) SPEC DESCRIPTION BLOOD 08/07/2017 6:46 PM FOUNDRY EQUIPMENT MECHANIC [facility] SPECIAL REQUESTS NO SPECIAL REQUEST 08/07/2017 6:46 PM FOUNDRY EQUIPMENT MECHANIC [facility] CULTURE RESULT NO GROWTH 5 DAYS 08/12/2017 6:45 AM FOUNDRY EQUIPMENT MECHANIC [facility] BLOOD SPECIMEN OBTAINED FOR BLOOD CULTURE / Unknown 08/07/2017 7:02 PM FOUNDRY EQUIPMENT MECHANIC 08/07/2017 7:07 PM FOUNDRY EQUIPMENT MECHANIC us Generic Conversion Md MIR MICROBIOLOGY - GENERAL ORDERABLES Final Result [facility] [address] [place] [address], * (ABNORMAL) CBC W/DIFF AUTOMATED (08/07/2017 5:05 PM FOUNDRY EQUIPMENT MECHANIC) WBC 10.3 4.5 - 10.8 x10'3/uL 08/07/2017 5:11 PM FOUNDRY EQUIPMENT MECHANIC [facility] RBC 3.67(L) 4.10 - 5.40 x10'6/uL 08/07/2017 5:11 PM FOUNDRY EQUIPMENT MECHANIC [facility] HGB 11.3(L) 12.0 - 16.0 G/DL 08/07/2017 5:11 PM FOUNDRY EQUIPMENT MECHANIC [facility] HCT 32.1(L) 36.0 - 47.0 % 08/07/2017 5:11 PM FOUNDRY EQUIPMENT MECHANIC [facility] MCV 87.5 78.0 - 100.0 FL 08/07/2017 5:11 PM FOUNDRY EQUIPMENT MECHANIC [facility] MCH 30.8 27.0 - 31.0 PG 08/07/2017 5:11 PM FOUNDRY EQUIPMENT MECHANIC [facility] MCHC 35.2 33.0 - 36.0 G/DL 08/07/2017 5:11 PM [facility] RDW 11.9 11.5 - 14.5 % 08/07/2017 5:11 PM FOUNDRY EQUIPMENT MECHANIC [facility] PLT 267 150 - 350 x10'3/uL 08/07/2017 5:11 PM FOUNDRY EQUIPMENT MECHANIC [facility] MPV 9.4 7.4 - 10.4 FL 08/07/2017 5:11 PM FOUNDRY EQUIPMENT MECHANIC [facility] SEG NEUTROPHILS 66.2 % 8 5:11 PM FOUNDRY EQUIPMENT MECHANIC [facility] LYMPHOCYTES 27.0 % 08/07/2017 5:11 PM FOUNDRY EQUIPMENT MECHANIC [facility] MONOCYTES 4.2 % 08/07/2017 5:11 PM FOUNDRY EQUIPMENT MECHANIC [facility] EOSINOPHILS 1.8 % 08/07/2017 5:11 PM [facility] BASOPHILS 0.6 % 08/07/2017 5:11 PM [facility] IMMATURE GRANS % 0.2 % 08/07/19 18 5:11 PM [facility] NRBC 0.0 % 08/07/2017 5:11 PM [facility] ABS. NEUTROPHILS 6.83 1.60 - 8.30 x10'3/uL 08/07/2017 5:11 PM [facility] ABS. LYMPHOCYTES 2.78 0.80 - 4.70 x10'3/uL 08/07/2017 5:11 PM [facility] ABS. MONOCYTES 0.43 0.00 - 1.50 x10'3/uL 08/07/2017 5:11 PM [facility] ABS. EOSINOPHILS 0.19 0.00 - 0.40 x10'3/uL 08/07/2017 5:11 PM [facility] ABS. BASOPHILS 0.06 0.00 - 0.20 x10'3/uL 08/07/2017 5:11 PM [facility] ABS. IMMATURE GRANULOCYTES 0.02 0.00 - 0.03 x10'3/uL 08/07/2017 5:11 PM [facility] ABS. NUCLEATED RBC'S 0.00 0.00 x10'3/uL 08/07/2017 5:11 PM [facility] OTHER (type in comments) 08/07/2017 5:05 PM FOUNDRY EQUIPMENT MECHANIC 08/07/2017 5:09 PM FOUNDRY EQUIPMENT MECHANIC Comment:WHOLE BLOOD SAMPLE us Generic Conversion Md MIR LABORATORY Final R esult [facility] [address] [place] [address], * (ABNORMAL) BASIC METABOLIC PANEL (08/07/2017 5:05 PM FOUNDRY EQUIPMENT MECHANIC) GLUCOSE 318(H) 70 - 99 MG/DL 08/07/2017 5:27 PM [facility] BUN 11 7 - 19 MG/DL 08/07/2017 5:27 PM [facility] CREATININE S/P/B 0.80 0.57 - 1.11 MG/DL 08/07/2017 5:27 PM [facility] SODIUM S/P/B 133(L) 136 - 145 MMOL/L 08/07/2017 5:27 PM [facility] POTASSIUM S/P/B 3.8 3.5 - 5.1 MMOL/L 08/07/2017 5:27 PM [facility] CHLORIDE S/P/B 101 98 - 107 MMOL/L 08/07/2017 5:27 PM [facility] CO2 24.0 22.0 - 29.0 MMOL/L 08/07/2017 5:27 PM [facility] CALCIUM S/P/B 9.0 8.4 - 10.2 MG/DL 08/07/2017 5:27 PM [facility] EGFR NON-AFR. AMER. >60 >60 ML/MIN/1.7 3 M2 08/07/2017 5:27 PM [facility] EGFR AFR. AMER. >60 >60 ML/MIN/1.7 3 M2 08/07/2017 5:27 PM [facility] ANION GAP 8.0 7 - 16 MMOL/L 08/07/2017 5:27 PM [facility] 08/07/2017 5:05 PM FOUNDRY EQUIPMENT MECHANIC 08/07/2017 5:09 PM FOUNDRY EQUIPMENT MECHANIC us Generic Conversion Md MIR LABORATORY Final R esult [facility] [address] [place] [address], documented in this encounter Visit Diagnoses Diagnosis Other otitis externa, left ear documented in this encounter
--- OUTSIDE RECORDS SUMMARY | 2024-08-03 01:12 | XMS_ITS | Encounter Summary ---
Author Organization [facility] Address [facility] [place] [address] [place] [address] Care Team Providers Care Court Specialist Name Role Phone Unavailable Primary Care Provider Unavailabl e Encounter Details Date Type Department Care Team (Late st Contact Info) Description 09/02/2014 Abstract [place] [facility] [address] [place] [address] [place] [address] [facility] [address] [place] [address] Social History Tobacco Use Types Packs/Day Years [...] as of this encounter Visit Diagnoses Diagnosis Person with feared complaint in whom no diagnosis was made documented in this encounter
--- OUTSIDE RECORDS SUMMARY | 2024-08-03 01:12 | XMS_ITS | Encounter Summary ---
Author Organization [facility] Address [facility] [place] [address] [place] [address] Care Team Providers Care Dust Collector Operator Name Role Phone Unavailable Primary Care Provider Unavailabl e Encounter Details Date Type Department Care Team (Late st Contact Info) Description 10/31/2016 Abstract [place] [facility] [address] [place] [address] Sami Aguilera MD [address] [place] [address] Social History Tobacco Use Types Packs/Day [...] as of this encounter Visit Diagnoses Diagnosis Vomiting Vomiting alone documented in this encounter
--- OUTSIDE RECORDS SUMMARY | 2024-08-03 01:12 | XMS_ITS | Encounter Summary ---
Author Organization [facility] Address [facility]6 [facility] [place] [address] [place] [address] Care Team Providers Care Tap And Die Maker Technician Name Role Phone Unavailable Primary Care Provider Unavailabl e Encounter Details Date Type Department Care Team (Late st Contact Info) Description 02/22/2014 Abstract [place] [facility] [address] [place] [address] Jose Delgado MD [address] [place] [address] Social History Tobacco Use Types [...] as of this encounter Visit Diagnoses Diagnosis Uncontrolled type 2 or unspecified diabetes mellitus with ketoacidosis (CMS/HCC HHS/HCC) documented in this encounter
--- OUTSIDE RECORDS SUMMARY | 2024-08-03 01:12 | XMS_ITS | Encounter Summary ---
Author Organization [facility] Address [facility]6 [facility] [place] [address] [place] [address] Care Team Providers Care Bounty Trapper Name Role Phone Unavailable Primary Care Provider Unavailabl e Encounter Details Date Type Department Care Team (Late st Contact Info) Description 07/23/2012 Abstract [place] [facility] [address] [place] [place] [address] Social History Tobacco Use Types Packs/Day Years [...] as of this encounter Visit Diagnoses Diagnosis Urinary tract infection Urinary tract infection, site not specified documented in this encounter
--- OUTSIDE RECORDS SUMMARY | 2024-08-03 01:12 | XMS_ITS | Encounter Summary ---
Author Organization [facility] Address [facility] [facility] [place] [address] [place] [address] Care Team Providers Care Director Of Cardiopulmonary Services Name Role Phone Unavailable Primary Care Provider Unavailabl e Encounter Details Date Type Department Care Team (Late st Contact Info) Description 04/28/2013 Abstract [place] [facility] [address] [place] [place] [address] Karen Jalloh MD [address] [place] [address] Social History Tobacco Use Types [...] of this encounter Visit Diagnoses Diagnosis Type 2 or unspecified type diabetes mellitus, uncontrolled documented in this encounter
--- OUTSIDE RECORDS SUMMARY | 2024-08-03 01:12 | XMS_ITS | Encounter Summary ---
Author Organization [facility] Address [facility] [place] [address] [place] [address] Care Team Providers Care Forest Fire Control Officer Name Role Phone Unavailable Primary Care Provider Unavailabl e Encounter Details Date Type Department Care Team (Late st Contact Info) Description 08/25/2013 Abstract [place] [facility] [address] [place] [address] Social History Tobacco Use Types Packs/Day Years [...]
--- OUTSIDE RECORDS SUMMARY | 2024-08-03 01:12 | XMS_ITS | Encounter Summary ---
Author Organization [facility] Address [facility]6 [facility]. [place], [place] [address] [place] [address] Care Team Providers Care Probate Paralegal Name Role Phone Unavailable Primary Care Provider Unavailabl e Encounter Details Date Type Department Care Team (Latest Contact Info) Description 08/08/2017 Abstract [facility] Social History Tobacco Use Types Packs/Day Years [...]
--- OUTSIDE RECORDS SUMMARY | 2024-08-03 01:12 | XMS_ITS | Encounter Summary ---
Author Organization [facility] Address [address] [place] [address] [place] [address] Care Team Providers Care Neonatal Surgeon Name Role Phone Unavailable Primary Care Provider Unavailabl e Encounter Details Date Type Department Care Team (Late st Contact Info) Description 04/14/2016 Abstract [place] [facility] [address] [place] [address] Eliz Carrera MD [address] [place] [address] Social History Tobacco Use Types Packs/Day Years [...] as of this encounter Visit Diagnoses Diagnosis Chest pain Chest pain, unspecified documented in this encounter
--- OUTSIDE RECORDS SUMMARY | 2024-08-03 01:12 | XMS_ITS | Encounter Summary ---
Author Organization [facility] Address [facility]6 [facility] [place] [address] [place] [address] Care Team Providers Care Medical Technologist Chief Name Role Phone Unavailable Primary Care Provider Unavailabl e Encounter Details Date Type Department Care Team (Late st Contact Info) Description 04/24/[address] [address] [place] [address] Manuel Kwok MD [address] [place] [address] Social History Tobacco Use Types [...] as of this encounter Visit Diagnoses Diagnosis Diverticulitis of colon Diverticulitis of colon (without mention of hemorrhage) documented in this encounter
--- OUTSIDE RECORDS SUMMARY | 2024-08-03 01:12 | XMS_ITS | Encounter Summary ---
Author Organization [facility] Address [facility] [place] [place] [address] [place] [address] Care Team Providers Care Bleach Tester Name Role Phone Unavailable Primary Care Provider Unavailabl e Encounter Details Date Type Department Care Team (Late st Contact Info) Description 09/02/2014 Abstract [place] [facility] [address] [place] [address] [place] [id number] [place] [address] [place] [address] Social History Tobacco Use Types Packs/Day [...] as of this encounter Visit Diagnoses Diagnosis Esophageal reflux documented in this encounter
--- OUTSIDE RECORDS SUMMARY | 2024-08-03 01:12 | XMS_ITS | Encounter Summary ---
Author Organization [place] Address [address] [facility] [place] [address] [place] [address] Care Team Providers Care Track Machine Operator Repairer Name Role Phone Unavailable Primary Care Provider Unavailabl e Encounter Details Date Type Department Care Team (Late st Contact Info) Description 08/08/2017 Orders Only [facility] CONVERSION [address] [place] [address] , Generic Conversion, Social History Tobacco Use [...] POCT GLUCOSE - ALARCON DOCKED DEVICE Routine 08/09/2017 11:35 AM [facility] VANCOMYCIN TROUGH TIMED 08/09/2017 6:3 6 AM [facility] BASIC METABOLIC PANEL TIMED 08/09/2017 6:36 AM [facility] CBC, AUTO, NO DIFF TIMED 08/09/2017 6: 36 AM [facility] POCT GLUCOSE - ALARCON DOCKED DEVICE Routine 08/09/2017 6:23 AM [facility] POCT GLUCOSE - ALARCON DOCKED DEVICE Routine 08/09/2017 3:58 AM [facility] POCT GLUCOSE - ALARCON DOCKED DEVICE Routine 08/08/2017 8:22 PM [facility] POCT GLUCOSE - ALARCON DOCKED DEVICE Routine 08/08/2017 7:42 PM [facility] POCT GLUCOSE - ALARCON DOCKED DEVICE Routine 08/08/2017 4:58 PM [facility] POCT GLUCOSE - ALARCON DOCKED DEVICE Routine 08/08/2017 12:52 PM [facility] POCT GLUCOSE - ALARCON DOCKED DEVICE Routine 08/08/2017 12:12 PM [facility] POCT GLUCOSE - ALARCON DOCKED DEVICE Routine 08/08/2017 10:23 AM [facility] POCT GLUCOSE - ALARCON DOCKED DEVICE Routine 08/08/2017 10:03 AM [facility] POCT GLUCOSE - ALARCON DOCKED DEVICE Routine 08/08/2017 7:42 AM [facility] BASIC METABOLIC PANEL TIMED 08/08/2017 3:41 AM [facility] CBC W/DIFF AUTOMATED TIMED 08/08/2017 3:40 AM [facility] POCT GLUCOSE - ALARCON DOCKED DEVICE Routine 08/08/2017 1:11 AM [facility] documented in this encounter Results * (ABNORMAL) POCT glucose (08/09/2017 11:35 AM [facility]) Pathologist [facility] GLUCOSE POC 157(H) 70 - 109 08/09/2017 12:41 PM [facility] ORDERS INTERFACE WHOLE BLOOD SPECIMEN / Unknown 08/09/2017 11:35 AM [facility] 08/09/2017 12:41 PM [facility] us Generic Conversion Md MIR POCT ORDERABLES - DEVIC E Final Result [facility] ORDERS INTERFACE US * (ABNORMAL) BASIC METABOLIC PANEL (08/09/2017 6:36 AM [facility]) Pathologist [facility] SODIUM S/P/B 134(L) 135 - 147 MMOL/L 08/09/2017 8:10 AM [facility] POTASSIUM S/P/B 4.3 3.5 - 5.0 MMOL/L 08/09/2017 8:10 AM [facility] CHLORIDE S/P/B 105 98 - 107 MMOL/L 08/09/2017 8:10 AM [facility] CO2 22.6 22 - 29 MMOL/L 08/09/2017 8:10 AM [facility] GLUCOSE 403(H) 70 - 109 MG/DL 08/09/2017 8:10 AM [facility] BUN 16 7 - 19 MG/DL 08/09/2017 8:10 AM [facility] CREATININE S/P/B 0.86 0.60 - 1.10 MG/DL 08/09/2017 8:10 AM [facility] CALCIUM S/P/B 8.9 8.4 - 10.2 MG/DL 08/09/2017 8:10 AM [facility] EGFR NON-AFR. AMER. 79 >60 ML/MIN/1.7 3 M2 08/09/2017 8:10 AM [facility] EGFR AFR. AMER. 95 >60 ML/MIN/1.7 3 M2 08/09/2017 8:10 AM [facility] ANION GAP 6.4 MMOL/L 08/09/2017 8:10 AM [facility] OSMOLALITY (CALC) 286 MOSM/KG 08/09/2017 8:10 AM [facility] PLASMA SPECIMEN / Unknown 08/09/2017 6:36 AM [facility] 08/09/2017 7:39 AM [facility] us Generic Conversion Md MIR LABORATORY Final R esult [facility] [address] [place] [address], [id number] * (ABNORMAL) CBC, AUTO, NO DIFF (08/09/2017 6:36 AM [facility]) WBC 6.9 4.0 - 10.8 x10'3/uL 08/09/2017 7:53 AM [facility] RBC 3.91(L) 4.10 - 5.40 x10'6/uL 08/09/2017 7:53 AM [facility] HGB 12.0 12.0 - 16.0 G/DL 08/09/2017 7:53 AM [facility] HCT 34.4(L) 36.0 - 47.0 % 08/09/2017 7:53 AM [facility] MCV 88.0 78.0 - 100.0 FL 08/09/2017 7:53 AM [facility] MCH 30.7 27.0 - 31.0 PG 08/09/2017 7:53 AM [facility] MCHC 34.9 33.0 - 36.0 G/DL 08/09/2017 7:53 AM [facility] RDW 12.1 11.5 - 14.5 % 08/09/2017 7:53 AM [facility] PLT 265 150 - 350 x10'3/uL 08/09/2017 7:53 AM [facility] MPV 10.1 7.4 - 10.4 FL 08/09/2017 7:53 AM [facility] PLASMA SPECIMEN / Unknown 08/09/2017 6:36 AM [facility] 08/09/2017 7:39 AM [facility] us Generic Conversion Md MIR LABORATORY Final R esult [facility] [address] [place] [address], [id number] * VANCOMYCIN TROUGH (08/09/2017 6:36 AM [facility]) VANCOMYCIN TROUGH 15.3 10 - 20 MCG/ML 08/09/2017 10:02 AM [facility] SERUM OR PLASMA SPECIMEN / Unknown 08/09/2017 6:36 AM [facility] 08/09/2017 7:39 AM [facility] us Generic Conversion Md MIR LABORATORY Final R esult Performing Organization Address [facility]/ZIP Co de Phone Number [facility] [address] [place] [address], [id number] * (ABNORMAL) POCT glucose (08/09/2017 6:23 AM [facility]) GLUCOSE POC 382(H) 70 - 109 08/09/2017 7:26 AM [facility] ORDERS INTERFACE WHOLE BLOOD SPECIMEN / Unknown 08/09/2017 6:23 AM [facility] 08/09/2017 7:26 AM [facility] us Generic Conversion Md MIR POCT ORDERABLES - DEVIC E Final Result Performing Organization Address [facility] Co de Phone Number [facility] ORDERS INTERFACE US * (ABNORMAL) POCT glucose (08/09/2017 3:58 AM [facility]) GLUCOSE POC 324(H) 70 - 109 08/09/2017 5:00 AM [facility] ORDERS INTERFACE WHOLE BLOOD SPECIMEN / Unknown 08/09/2017 3:58 AM [facility] 08/09/2017 5:00 AM [facility] us Generic Conversion Md MIR POCT ORDERABLES - DEVIC E Final Result Performing Organization Address City/[facility]/ZIP Co de Phone Number [facility] ORDERS INTERFACE US * (ABNORMAL) POCT glucose (08/08/2017 8:22 PM [facility]) GLUCOSE POC 111(H) 70 - 109 08/09/2017 6:05 AM [facility] ORDERS INTERFACE WHOLE BLOOD SPECIMEN / Unknown 08/08/2017 8:22 PM [facility] 08/09/2017 6:04 AM [facility] us Generic Conversion Md MIR POCT ORDERABLES - DEVIC E Final Result Performing Organization Address City/[facility]/ZIP Co de Phone Number [facility] ORDERS INTERFACE US * (ABNORMAL) POCT glucose (08/08/2017 7:42 PM [facility]) GLUCOSE POC 42(L) 70 - 109 08/08/2017 8:45 PM [facility] ORDERS INTERFACE WHOLE BLOOD SPECIMEN / Unknown 08/08/2017 7:42 PM [facility] 08/08/2017 8:45 PM [facility] us Generic Conversion Md MIR POCT ORDERABLES - DEVIC E Final Result Performing Organization Address [facility]/ZIP Co de Phone Number [facility] ORDERS INTERFACE US * (ABNORMAL) POCT glucose (08/08/2017 4:58 PM [facility]) GLUCOSE POC 112(H) 70 - 109 08/08/2017 6:07 PM [facility] ORDERS INTERFACE WHOLE BLOOD SPECIMEN / Unknown 08/08/2017 4:58 PM [facility] 08/08/2017 6:07 PM [facility] us Generic Conversion Md MIR POCT ORDERABLES - DEVIC E Final Result Performing Organization Address [facility] Co de Phone Number [facility] ORDERS INTERFACE US * (ABNORMAL) POCT glucose (08/08/2017 12:52 PM [facility]) GLUCOSE POC 223(H) 70 - 109 08/08/2017 1:54 PM [facility] ORDERS INTERFACE WHOLE BLOOD SPECIMEN / Unknown 08/08/2017 12:52 PM [facility] 08/08/2017 1:54 PM [facility] us Generic Conversion Md MIR POCT ORDERABLES - DEVIC E Final Result [facility] ORDERS INTERFACE US * (ABNORMAL) POCT glucose (08/08/2017 12:12 PM [facility]) GLUCOSE POC 32(L) 70 - 109 08/08/2017 1:14 PM [facility] ORDERS INTERFACE WHOLE BLOOD SPECIMEN / Unknown 08/08/2017 12:12 PM [facility] 08/08/2017 1:14 PM [facility] us Generic Conversion Md MIR POCT ORDERABLES - DEVIC E Final Result [facility] ORDERS INTERFACE US * (ABNORMAL) POCT glucose (08/08/2017 10:23 AM [facility]) GLUCOSE POC 159(H) 70 - 109 08/08/2017 11:26 AM [facility] ORDERS INTERFACE WHOLE BLOOD SPECIMEN / Unknown 08/08/2017 10:23 AM [facility] 08/08/2017 11:26 AM [facility] us Generic Conversion Md MIR POCT ORDERABLES - DEVIC E Final Result Performing Organization Address [facility] Co de Phone Number [facility] ORDERS INTERFACE US * (ABNORMAL) POCT glucose (08/08/2017 10:03 AM [facility]) GLUCOSE POC 22(L) 70 - 109 08/08/2017 5:42 PM [facility] ORDERS INTERFACE WHOLE BLOOD SPECIMEN / Unknown 08/08/2017 10:03 AM [facility] 08/08/2017 5:42 PM [facility] us Generic Conversion Md MIR POCT ORDERABLES - DEVIC E Final Result Performing Organization Address [facility]/ZIP Co de Phone Number [facility] ORDERS INTERFACE US * POCT glucose (08/08/2017 7:42 AM [facility]) GLUCOSE POC 84 70 - 109 08/08/2017 8:52 AM [facility] ORDERS INTERFACE WHOLE BLOOD SPECIMEN / Unknown 08/08/2017 7:42 AM [facility] 08/08/2017 8:52 AM [facility] us Generic Conversion Md MIR POCT ORDERABLES - DEVIC E Final Result [facility] ORDERS INTERFACE US * (ABNORMAL) BASIC METABOLIC PANEL (08/08/2017 3:41 AM [facility]) SODIUM S/P/B 138 135 - 147 MMOL/L 08/08/2017 5:53 AM [facility] POTASSIUM S/P/B 3.6 3.5 - 5.0 MMOL/L 08/08/2017 5:53 AM [facility] CHLORIDE S/P/B 104 98 - 107 MMOL/L 08/08/2017 5:53 AM [facility] CO2 25.5 22 - 29 MMOL/L 08/08/2017 5:53 AM [facility] GLUCOSE 128(H) 70 - 109 MG/DL 08/08/2017 5:53 AM [facility] BUN 10 7 - 19 MG/DL 08/08/2017 5:53 AM [facility] CREATININE S/P/B 0.72 0.60 - 1.10 MG/DL 08/08/2017 5:53 AM [facility] CALCIUM S/P/B 8.9 8.4 - 10.2 MG/DL 08/08/2017 5:53 AM [facility] EGFR NON-AFR. AMER. 96 >60 ML/MIN/1.7 3 M2 08/08/2017 5:53 AM [facility] EGFR AFR. AMER. 117 >60 ML/MIN/1.7 3 M2 08/08/2017 5:53 AM [facility] ANION GAP 8.5 MMOL/L 08/08/2017 5:53 AM [facility] OSMOLALITY (CALC) 276 MOSM/KG 08/08/2017 5:53 AM [facility] PLASMA SPECIMEN / Unknown 08/08/2017 3:41 AM [facility] 08/08/2017 5:20 AM [facility] us Generic Conversion Md MIR LABORATORY Final R esult [facility] [address] [place] [address], [id number] * (ABNORMAL) CBC W/DIFF AUTOMATED (08/08/2017 3:40 AM [facility]) [facility] WBC 6.9 4.0 - 10.8 x10'3/uL 08/08/2017 5:31 AM [facility] RBC 3.87(L) 4.10 - 5.40 x10'6/uL 08/08/2017 5:31 AM [facility] HGB 11.7(L) 12.0 - 16.0 G/DL 08/08/2017 5:31 AM [facility] HCT 34.3(L) 36.0 - 47.0 % 08/08/2017 5:31 AM [facility] MCV 88.6 78.0 - 100.0 FL 08/08/2017 5:31 AM [facility] MCH 30.2 27.0 - 31.0 PG 08/08/2017 5:31 AM [facility] MCHC 34.1 33.0 - 36.0 G/DL 08/08/2017 5:31 AM [facility] RDW 12.0 11.5 - 14.5 % 08/08/2017 5:31 AM [facility] PLT 292 150 - 350 x10'3/uL 08/08/2017 5:31 AM [facility] MPV 9.8 7.4 - 10.4 FL 08/08/2017 5:31 AM [facility] ABS. NEUTROPHILS TOTAL 3.85 1.60 - 8.30 x10'3/uL 08/08/2017 5:31 AM [facility] ABS. LYMPHOCYTES 2.46 0.80 - 4.70 x10'3/uL 08/08/2017 5:31 AM [facility] ABS. MONOCYTES 0.39 0.00 - 1.50 x10'3/uL 08/08/2017 5:31 AM [facility] ABS. EOSINOPHILS 0.13 0.00 - 0.40 x10'3/uL 08/08/2017 5:31 AM [facility] ABS. BASOPHILS 0.04 0.00 - 0.20 x10'3/uL 08/08/2017 5:31 AM [facility] ABS. IMMATURE GRANULOCYTES 0.04(H) 0.00 - 0.03 x10'3/uL 08/08/2017 5:31 AM [facility] ABS. NUCLEATED RBC'S 0.04(H) 0.0 x10'3/uL 08/08/2017 5:31 AM [facility] PLASMA SPECIMEN / Unknown 08/08/2017 3:40 AM [facility] 08/08/2017 5:20 AM [facility] us Generic Conversion Md MIR LABORATORY Final R esult Performing Organization Address City/[facility]/ZIP Co de Phone Number [facility] [address] [place] [address], [phone] * (ABNORMAL) POCT glucose (08/08/2017 1:11 AM [facility]) [facility] GLUCOSE POC 128(H) 70 - 109 08/08/2017 11:26 AM [facility] ORDERS INTERFACE WHOLE BLOOD SPECIMEN / Unknown 08/08/2017 1:11 AM [facility] 08/08/2017 11:26 AM [facility] us Generic Conversion Md MIR POCT ORDERABLES - DEVIC E Final Result [facility] ORDERS INTERFACE US documented in this encounter Visit Diagnoses Not on filedocumented in this encounter
--- OUTSIDE RECORDS SUMMARY | 2024-08-03 01:12 | XMS_ITS | Encounter Summary ---
Author Organization [facility] Address [facility] [facility] [place] [address] [place] [address] Care Team Providers Care Door Attendant Name Role Phone Unavailable Primary Care Provider Unavailabl e Encounter Details Date Type Department Care Team (Late st Contact Info) Description 05/23/2012 Abstract [facility] [address] [place] [address] Manuel Kwok MD [address] [place] [address] Social History Tobacco Use Types [...] as of this encounter Visit Diagnoses Diagnosis Diarrhea documented in this encounter
--- OUTSIDE RECORDS SUMMARY | 2024-08-03 01:12 | XMS_ITS | Encounter Summary ---
Author Organization [facility] Address [facility] [facility] [place] [address] [place] [address] Care Team Providers Care Vacuum Cleaner Repair Person Name Role Phone Unavailable Primary Care Provider Unavailabl e Encounter Details Date Type Department Care Team (Late st Contact Info) Description 05/15/2012 Abstract [facility] [address] [facility] [address] Isaias Saenz MD [address] [employer] [place] [address] Social History Tobacco Use Types [...] of this encounter Visit Diagnoses Diagnosis Type I diabetes mellitus, uncontrolled Type I (juvenile type) diabetes mellitus without mention of complication, uncontrolled documented in this encounter
--- OUTSIDE RECORDS SUMMARY | 2024-08-03 01:12 | XMS_ITS | Encounter Summary ---
Author Organization [facility] Address [facility] [facility] [place] [address] [place] [address] Care Team Providers Care Operations Administrator Name Role Phone Unavailable Primary Care Provider Unavailabl e Encounter Details Date Type Department Care Team (Late st Contact Info) Description 10/15/2016 Abstract [facility] [address] [address] Social History Tobacco Use Types Packs/Day Years [...]
--- OUTSIDE RECORDS SUMMARY | 2024-08-03 01:12 | XMS_ITS | Encounter Summary ---
Author Organization [facility] Address [facility] [facility] [address] [place] [address] Care Team Providers Care Patrol Community Service Officer Name Role Phone Unavailable Primary Care Provider Unavailabl e Encounter Details Date Type Department Care Team (Late st Contact Info) Description 06/06/2013 Abstract [place] [address] [place] [place] [address] Kaleb Hernandez Jr., MD [address] [place] [address] Social History Tobacco Use Types Packs/Day Years [...] this encounter Visit Diagnoses Diagnosis Abdominal pain of other specified site documented in this encounter
--- OUTSIDE RECORDS SUMMARY | 2024-08-03 01:12 | XMS_ITS | Encounter Summary ---
Author Organization [facility] Address [facility] [place] [address] [place] [address] Care Team Providers Care Chemistry Instructor Name Role Phone Unavailable Primary Care Provider Unavailabl e Encounter Details Date Type Department Care Team (Late st Contact Info) Description 03/10/[address] [facility] [address] [place] [address] Timothy Graham MD [address] [place] [address] Social History Tobacco Use Types Packs/Day Years [...] as of this encounter Visit Diagnoses Diagnosis Dysthymic disorder documented in this encounter
--- OUTSIDE RECORDS SUMMARY | 2024-08-03 01:12 | XMS_ITS | Encounter Summary ---
Author Organization [facility] Address [facility] [place] [address] [place] [address] Care Team Providers Care Banking Pin Adjuster Name Role Phone Unavailable Primary Care Provider Unavailabl e Encounter Details Date Type Department Care Team (Late st Contact Info) Description 04/24/[address] [facility] [address] [place] [address] Timothy Graham MD [address] [place] [address] Social History Tobacco Use Types [...] Diagnoses Diagnosis Type 1 diabetes mellitus with hyperglycemia (CMS/HCC HHS/HCC) Type I (juvenile type) diabetes mellitus without mention of complication, not stated as uncontrolled documented in this encounter
--- OUTSIDE RECORDS SUMMARY | 2024-08-03 01:12 | XMS_ITS | Encounter Summary ---
Author Organization [facility] Address [address] 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 Name Role Phone Unavailable Primary Care Provider Unavailabl e Encounter Details Date Type Department Care Team (Late st Contact Info) Description 04/23/2017 Abstract [facility] [address] [place] [address] Lalit Logan MD [address] [place] [address] Social History Tobacco Use Types [...] Associated Diagnosis Comments GLUCOSE BLOOD, QNT Routine 04/24/2017 6: 30 AM CDT HEMOGLOBIN, GLYCOSYLATED Routine 04/24/2017 5:58 AM CDT THYROID STIM HORMONE TSH Routine 04/24/2017 5:58 AM CDT GLUCOSE BLOOD, QNT TIMED 04/24/2017 5: 58 AM CDT BETA-HYDROXYBUTYRATE TIMED 04/24/2017 4:58 AM CDT BASIC METABOLIC PANEL TIMED 04/24/2017 4:58 AM CDT PHOSPHORUS, INORGANIC PHOSPHATE TIMED 04/24/2017 4:58 AM CDT GLUCOSE BLOOD, QNT TIMED 04/24/2017 3: 53 AM CDT BASIC METABOLIC PANEL TIMED 04/24/2017 2:56 AM CDT GLUCOSE BLOOD, QNT TIMED 04/24/2017 1: 57 AM CDT BASIC METABOLIC PANEL TIMED 04/24/2017 1:06 AM CDT GLUCOSE BLOOD, QNT TIMED 04/24/2017 12 :27 AM CDT BETA-HYDROXYBUTYRATE TIMED 04/23/2017 10:55 PM CDT BASIC METABOLIC PANEL TIMED 04/23/2017 10:55 PM CDT PHOSPHORUS, INORGANIC PHOSPHATE TIMED 04/23/2017 10:55 PM CDT GLUCOSE BLOOD, QNT TIMED 04/23/2017 10 :03 PM CDT BASIC METABOLIC PANEL TIMED 04/23/2017 8:58 PM CDT GLUCOSE BLOOD, QNT TIMED 04/23/2017 7: 57 PM CDT BASIC METABOLIC PANEL TIMED 04/23/2017 7:05 PM CDT BLOOD GAS, ARTERIAL LAB TIMED 04/23/2017 7:05 PM CDT CALCIUM TIMED 04/23/2017 7:05 PM CDT URINALYSIS Routine 04/23/2017 6:00 PM CDT GLUCOSE BLOOD, QNT TIMED 04/23/2017 5: 52 PM CDT GLUCOSE BLOOD, QNT Routine 04/23/2017 5: 16 PM CDT BETA-HYDROXYBUTYRATE TIMED 04/23/2017 5:05 PM CDT BASIC METABOLIC PANEL TIMED 04/23/2017 5:05 PM CDT PHOSPHORUS, INORGANIC PHOSPHATE TIMED 04/23/2017 5:05 PM CDT GLUCOSE BLOOD, QNT Routine 04/23/2017 4: 09 PM CDT BASIC METABOLIC PANEL TIMED 04/23/2017 3:30 PM CDT PH-VENOUS TIMED 04/23/2017 3:30 PM CDT GLUCOSE BLOOD, QNT Routine 04/23/2017 3: 06 PM CDT GLUCOSE BLOOD, QNT Routine 04/23/2017 1: 38 PM CDT BASIC METABOLIC PANEL TIMED 04/23/2017 1:30 PM CDT GLUCOSE BLOOD, QNT Routine 04/23/2017 12 :19 PM CDT URINALYSIS WI REFLEX TO CULTURE STAT 04/23/2017 11:15 AM CDT TEST URINE STAT 04/23/2017 11:15 AM CDT BETA-HYDROXYBUTYRATE TIMED 04/23/2017 11:05 AM CDT BASIC METABOLIC PANEL STAT 04/23/2017 11:05 AM CDT PHOSPHORUS, INORGANIC PHOSPHATE TIMED 04/23/2017 11:05 AM CDT MAGNESIUM STAT 04/23/2017 11:05 AM CDT GLUCOSE BLOOD, QNT Routine 04/23/2017 10 :20 AM CDT BLOOD GAS, VENOUS STAT 04/23/2017 9:3 0 AM CDT BETA-HYDROXYBUTYRATE STAT 04/23/2017 8:35 AM CDT COMPREHENSIVE METABOLIC PANEL STAT 04/23/2017 8:35 AM CDT LACTIC ACID STAT 04/23/2017 8:35 AM CDT CBC W/DIFF AUTOMATED STAT 04/23/2017 8:35 AM CDT LIPASE STAT 04/23/2017 8:35 AM CDT GLUCOSE BLOOD, QNT Routine 04/23/2017 8: 20 AM CDT documented in this encounter Results * GLUCOSE BLOOD, QNT (04/24/2017 6:30 AM CDT) GLUCOSE POC 76 70 - 99 MG/DL 04/24/2017 6:32 AM CDT [facility] ORDERS INTERFACE 04/24/2017 6:30 AM CDT 04/24/2017 6:32 AM CDT us Generic Conversion Md MIR LABORATORY Final R eslucina [facility] ORDERS INTERFACE US * THYROID STIM HORMONE, TSH (04/24/2017 5:58 AM CDT) TSH 4.838 0.350 - 4.940 uIU/ML 04/24/2017 6:45 AM CDT [facility] SERUM OR PLASMA SPECIMEN / Unknown 04/24/2017 5:58 AM CDT 04/24/2017 6:03 AM CDT us Generic Conversion Md MIR LABORATORY Final R esult [facility] [address] [place] [phone], * (ABNORMAL) GLUCOSE BLOOD, QNT (04/24/2017 5:58 AM CDT) GLUCOSE 61(L) 70 - 99 MG/DL 04/24/2017 6:19 AM CDT [facility] SERUM OR PLASMA SPECIMEN / Unknown 04/24/2017 5:58 AM CDT 04/24/2017 6:03 AM CDT us Generic Conversion Md MIR LABORATORY Final R esult Performing Organization Address [facility] Co de Phone Number [facility] [address] [place] [phone], * (ABNORMAL) HEMOGLOBIN, GLYCOSYLATED (04/24/2017 5:58 AM CDT) HGB A1C 12.7(H) 4.5 - 6.0 % 04/24/2017 6:18 AM CDT [facility] Comment: ADA GUIDELINES 22430.7 TO 6.4% INCREASED RISK OF DIABETES> OR = 6.5% CONSISTENT WITH DIABETES ESTIMATED AVG GLUCOSE 318(H) 70 - 99 MG/DL 04/24/2017 6:18 AM CDT [facility] 04/24/2017 5:58 AM CDT 04/24/2017 6:04 AM CDT us Generic Conversion Md MIR LABORATORY Final R esult Performing Organization Address City/[facility]/ZIP Co de Phone Number [facility] [address] [place] [phone], * (ABNORMAL) PHOSPHORUS, INORGANIC PHOSPHATE (04/24/2017 4:58 AM CDT) PHOSPHORUS 1.8(L) 2.5 - 4.9 MG/DL 04/24/2017 5:21 AM CDT [facility] SERUM OR PLASMA SPECIMEN / Unknown 04/24/2017 4:58 AM CDT 04/24/2017 5:01 AM CDT us Generic Conversion Md MIR LABORATORY Final R esult [facility] [address] [place] [phone], * (ABNORMAL) BASIC METABOLIC PANEL (04/24/2017 4:58 AM CDT) GLUCOSE 80 70 - 99 MG/DL 04/24/2017 5:21 AM CDT [facility] BUN 5(L) 7 - 19 MG/DL 04/24/2017 5:21 AM CDT [facility] CREATININE S/P/B 0.69 0.57 - 1.11 MG/DL 04/24/2017 5:21 AM CDT [facility] SODIUM S/P/B 136 136 - 145 MMOL/L 04/24/2017 5:21 AM CDT [facility] POTASSIUM S/P/B 3.7 3.5 - 5.1 MMOL/L 04/24/2017 5:21 AM CDT [facility] CHLORIDE S/P/B 109(H) 98 - 107 MMOL/L 04/24/2017 5:21 AM CDT [facility] CO2 19.0(L) 22.0 - 29.0 MMOL/L 04/24/2017 5:21 AM CDT [facility] CALCIUM S/P/B 8.3(L) 8.4 - 10.2 MG/DL 04/24/2017 5:21 AM CDT [facility] EGFR NON-AFR. AMER. >60 >60 ML/MIN/1.7 3 M2 04/24/2017 5:21 AM CDT [facility] EGFR AFR. AMER. >60 >60 ML/MIN/1.7 3 M2 04/24/2017 5:21 AM CDT [facility] ANION GAP 8.0 7 - 16 MMOL/L 04/24/2017 5:21 AM CDT [facility] 04/24/2017 4:58 AM CDT 04/24/2017 5:01 AM CDT us Generic Conversion Md MIR LABORATORY Final R theo Performing Organization Address [facility]/ZIP Co de Phone Number [facility] [address] [place] [phone], * BETA-HYDROXYBUTYRATE (04/24/2017 4:58 AM CDT) BETA-HYDROXYBUT YRATE 0.2 0.0 - 0.3 MMOL/L 04/24/2017 5:09 AM CDT [facility] SERUM OR PLASMA SPECIMEN / Unknown 04/24/2017 4:58 AM CDT 04/24/2017 5:01 AM CDT us Generic Conversion Md MIR LABORATORY Final R theo Performing Organization Address City/[facility]/ZIP Co de Phone Number [facility] [address] [place] [address], [place] [phone] * GLUCOSE BLOOD, QNT (04/24/2017 3:53 AM CDT) GLUCOSE 89 70 - 99 MG/DL 04/24/2017 4:13 AM CDT [facility] SERUM OR PLASMA SPECIMEN / Unknown 04/24/2017 3:53 AM CDT 04/24/2017 3:59 AM CDT us Generic Conversion Md MIR LABORATORY Final R theo Performing Organization Address City/[facility] Co de Phone Number [facility] [address] [place] [phone], * (ABNORMAL) BASIC METABOLIC PANEL (04/24/2017 2:56 AM CDT) GLUCOSE 127(H) 70 - 99 MG/DL 04/24/2017 3:23 AM CDT [facility] BUN 7 7 - 19 MG/DL 04/24/2017 3:23 AM CDT [facility] CREATININE S/P/B 0.74 0.57 - 1.11 MG/DL 04/24/2017 3:23 AM CDT [facility] SODIUM S/P/B 133(L) 136 - 145 MMOL/L 04/24/2017 3:23 AM CDT [facility] POTASSIUM S/P/B 3.8 3.5 - 5.1 MMOL/L 04/24/2017 3:23 AM CDT [facility] CHLORIDE S/P/B 107 98 - 107 MMOL/L 04/24/2017 3:23 AM CDT [facility] CO2 19.0(L) 22.0 - 29.0 MMOL/L 04/24/2017 3:23 AM CDT [facility] CALCIUM S/P/B 8.3(L) 8.4 - 10.2 MG/DL 04/24/2017 3:23 AM CDT [facility] EGFR NON-AFR. AMER. >60 >60 ML/MIN/1.7 3 M2 04/24/2017 3:23 AM CDT [facility] EGFR AFR. AMER. >60 >60 ML/MIN/1.7 3 M2 04/24/2017 3:23 AM CDT [facility] ANION GAP 7.0 7 - 16 MMOL/L 04/24/2017 3:23 AM CDT [facility] 04/24/2017 2:56 AM CDT 04/24/2017 3:03 AM CDT us Generic Conversion Md MIR LABORATORY Final R esult [facility] [address] [place] [address], * (ABNORMAL) GLUCOSE BLOOD, QNT (04/24/2017 1:57 AM CDT) GLUCOSE 140(H) 70 - 99 MG/DL 04/24/2017 2:23 AM CDT [facility] SERUM OR PLASMA SPECIMEN / Unknown 04/24/2017 1:57 AM CDT 04/24/2017 2:03 AM CDT us Generic Conversion Md MIR LABORATORY Final R esult [facility] [address] [place] [address], * (ABNORMAL) BASIC METABOLIC PANEL (04/24/2017 1:06 AM CDT) GLUCOSE 149(H) 70 - 99 MG/DL 04/24/2017 1:30 AM CDT [facility] BUN 7 7 - 19 MG/DL 04/24/2017 1:30 AM CDT [facility] CREATININE S/P/B 0.79 0.57 - 1.11 MG/DL 04/24/2017 1:30 AM CDT [facility] SODIUM S/P/B 132(L) 136 - 145 MMOL/L 04/24/2017 1:30 AM CDT [facility] POTASSIUM S/P/B 3.9 3.5 - 5.1 MMOL/L 04/24/2017 1:30 AM CDT [facility] CHLORIDE S/P/B 105 98 - 107 MMOL/L 04/24/2017 1:30 AM CDT [facility] CO2 18.0(L) 22.0 - 29.0 MMOL/L 04/24/2017 1:30 AM CDT [facility] CALCIUM S/P/B 8.1(L) 8.4 - 10.2 MG/DL 04/24/2017 1:30 AM CDT [facility] EGFR NON-AFR. AMER. >60 >60 ML/MIN/1.7 3 M2 04/24/2017 1:30 AM CDT [facility] EGFR AFR. AMER. >60 >60 ML/MIN/1.7 3 M2 04/24/2017 1:30 AM CDT [facility] ANION GAP 9.0 7 - 16 MMOL/L 04/24/2017 1:30 AM CDT [facility] 04/24/2017 1:06 AM CDT 04/24/2017 1:09 AM CDT us Generic Conversion Md MIR LABORATORY Final R theo Performing Organization Address [facility]/ZIP Co de Phone Number [facility] [address] [place] [address], [place] [phone] * (ABNORMAL) GLUCOSE BLOOD, QNT (04/24/2017 12:27 AM CDT) GLUCOSE 157(H) 70 - 99 MG/DL 04/24/2017 12:46 AM CDT [facility] SERUM OR PLASMA SPECIMEN / Unknown 04/24/2017 12:27 AM CDT 04/24/2017 12:31 AM CDT us Generic Conversion Md MIR LABORATORY Final R theo Performing Organization Address [facility] Co de Phone Number [facility] [address] [place] [address], [place] [phone] * (ABNORMAL) PHOSPHORUS, INORGANIC PHOSPHATE (04/23/2017 10:55 PM CDT) PHOSPHORUS 1.4(L) 2.5 - 4.9 MG/DL 04/23/2017 11:21 PM CDT [facility] SERUM OR PLASMA SPECIMEN / Unknown 04/23/2017 10:55 PM CDT 04/23/2017 11:01 PM CDT us Generic Conversion Md MIR LABORATORY Final R theo Performing Organization Address [facility]/ZIP Co de Phone Number [facility] [address] [place] [phone], [place] [phone] * (ABNORMAL) BASIC METABOLIC PANEL (04/23/2017 10:55 PM CDT) GLUCOSE 135(H) 70 - 99 MG/DL 04/23/2017 11:21 PM CDT [facility] BUN 8 7 - 19 MG/DL 04/23/2017 11:21 PM CDT [facility] CREATININE S/P/B 0.78 0.57 - 1.11 MG/DL 04/23/2017 11:21 PM CDT [facility] SODIUM S/P/B 133(L) 136 - 145 MMOL/L 04/23/2017 11:21 PM CDT [facility] POTASSIUM S/P/B 3.9 3.5 - 5.1 MMOL/L 04/23/2017 11:21 PM CDT [facility] CHLORIDE S/P/B 106 98 - 107 MMOL/L 04/23/2017 11:21 PM CDT [facility] CO2 20.0(L) 22.0 - 29.0 MMOL/L 04/23/2017 11:21 PM CDT [facility] CALCIUM S/P/B 8.0(L) 8.4 - 10.2 MG/DL 04/23/2017 11:21 PM CDT [facility] EGFR NON-AFR. AMER. >60 >60 ML/MIN/1.7 3 M2 04/23/2017 11:21 PM CDT [facility] EGFR AFR. AMER. >60 >60 ML/MIN/1.7 3 M2 04/23/2017 11:21 PM CDT [facility] ANION GAP 7.0 7 - 16 MMOL/L 04/23/2017 11:21 PM CDT [facility] 04/23/2017 10:5 5 PM CDT 04/23/2017 11:01 PM CDT us Generic Conversion Md MIR LABORATORY Final R esult [facility] [address] [place] [address], * (ABNORMAL) BETA-HYDROXYBUTYRATE (04/23/2017 10:55 PM CDT) BETA-HYDROXYBU TYRATE 0.8(H) 0.0 - 0.3 MMOL/L 04/23/2017 11:04 PM CDT [facility] SERUM OR PLASMA SPECIMEN / Unknown 04/23/2017 10:55 PM CDT 04/23/2017 11:01 PM CDT us Generic Conversion Md MIR LABORATORY Final R esult Performing Organization Address [facility]/ZIP Co de Phone Number [facility] [address] [place] [address], * GLUCOSE BLOOD, QNT (04/23/2017 10:03 PM CDT) GLUCOSE 98 70 - 99 MG/DL 04/23/2017 10:41 PM CDT [facility] SERUM OR PLASMA SPECIMEN / Unknown 04/23/2017 10:03 PM CDT 04/23/2017 10:11 PM CDT us Generic Conversion Md [facility] LABORAT[facility] Final R esult Performing Organization Address City/[facility] Co de Phone Number [facility] [address] [place] [address], [place] [phone] * (ABNORMAL) BASIC METABOLIC PANEL (04/23/2017 8:58 PM CDT) GLUCOSE 97 70 - 99 MG/DL 04/23/2017 9:32 PM CDT [facility] BUN 9 7 - 19 MG/DL 04/23/2017 9:32 PM CDT [facility] CREATININE S/P/B 0.75 0.57 - 1.11 MG/DL 04/23/2017 9:32 PM CDT [facility] SODIUM S/P/B 134(L) 136 - 145 MMOL/L 04/23/2017 9:32 PM CDT [facility] POTASSIUM S/P/B 4.0 3.5 - 5.1 MMOL/L 04/23/2017 9:32 PM CDT [facility] CHLORIDE S/P/B 108(H) 98 - 107 MMOL/L 04/23/2017 9:32 PM CDT [facility] CO2 18.0(L) 22.0 - 29.0 MMOL/L 04/23/2017 9:32 PM CDT [facility] CALCIUM S/P/B 8.0(L) 8.4 - 10.2 MG/DL 04/23/2017 9:32 PM CDT [facility] EGFR NON-AFR. AMER. >60 >60 ML/MIN/1.7 3 M2 04/23/2017 9:32 PM CDT [facility] EGFR AFR. AMER. >60 >60 ML/MIN/1.7 3 M2 04/23/2017 9:32 PM CDT [facility] ANION GAP 8.0 7 - 16 MMOL/L 04/23/2017 9:32 PM CDT [facility] 04/23/2017 8:58 PM CDT 04/23/2017 9:04 PM CDT us Generic Conversion Md MIR LABORAT[facility] Final R esult Performing Organization Address City/[facility]/ZIP Co de Phone Number [facility] [address] [place] [address], * (ABNORMAL) GLUCOSE BLOOD, QNT (04/23/2017 7:57 PM CDT) GLUCOSE 114(H) 70 - 99 MG/DL 04/23/2017 8:20 PM CDT [facility] SERUM OR PLASMA SPECIMEN / Unknown 04/23/2017 7:57 PM CDT 04/23/2017 8:04 PM CDT us Generic Conversion Md MIR LABORATORY Final R esult [facility] [place] [address], [place] [phone] * (ABNORMAL) CALCIUM (04/23/2017 7:05 PM CDT) CALCIUM S/P/B 8.1(L) 8.4 - 10.2 MG/DL 04/23/2017 7:28 PM CDT [facility] SERUM OR PLASMA SPECIMEN / Unknown 04/23/2017 7:05 PM CDT 04/23/2017 7:11 PM CDT us Generic Conversion Md M[facility] LABORAT[facility] Final R esult [facility] [address] [place] [address], * (ABNORMAL) ARTERIAL BLOOD GAS (04/23/2017 7:05 PM CDT) O2 SATURATION 100 95 - 100 % 04/23/2017 7:12 PM CDT [facility] PH ARTERIAL 7.38 7.35 - 7.45 04/23/2017 7:12 PM CDT [facility] PCO2 27.5(L) 34.0 - 45.0 MMHG 04/23/2017 7:12 PM CDT [facility] PO2 139.0(H) 80.0 - 95.0 MMHG 04/23/2017 7:12 PM CDT [facility] BASE DEFICIT 7.4 MMOL/L 04/23/2017 7:12 PM CDT [facility] BICARB ARTERIAL 16.1(L) 18.0 - 23.0 MMOL/L 04/23/2017 7:12 PM CDT [facility] TCO2 16.9(L) 18.0 - 23.0 MMOL/L 04/23/2017 7:12 PM CDT [facility] LITER FLOW ROOM AIR 04/23/2017 7:10 PM CDT [facility] SURJIT TEST N/A 04/23/2017 7:10 PM CDT [facility] DRAW SITE LT BRACH 04/23/2017 7:10 PM CDT [facility] 04/23/2017 7:05 PM CDT 04/23/2017 7:10 PM CDT us Generic Conversion Md [facility] LABORAT[facility] Final R esult [facility] [address] [place] [address], * (ABNORMAL) BASIC METABOLIC PANEL (04/23/2017 7:05 PM CDT) GLUCOSE 151(H) 70 - 99 MG/DL 04/23/2017 7:30 PM CDT [facility] BUN 9 7 - 19 MG/DL 04/23/2017 7:30 PM CDT [facility] CREATININE S/P/B 0.78 0.57 - 1.11 MG/DL 04/23/2017 7:30 PM CDT [facility] SODIUM S/P/B 133(L) 136 - 145 MMOL/L 04/23/2017 7:30 PM CDT [facility] POTASSIUM S/P/B 4.1 3.5 - 5.1 MMOL/L 04/23/2017 7:30 PM CDT [facility] CHLORIDE S/P/B 109(H) 98 - 107 MMOL/L 04/23/2017 7:30 PM CDT [facility] CO2 15.0(L) 22.0 - 29.0 MMOL/L 04/23/2017 7:30 PM CDT [facility] CALCIUM S/P/B 8.0(L) 8.4 - 10.2 MG/DL 04/23/2017 7:30 PM CDT [facility] EGFR NON-AFR. AMER. >60 >60 ML/MIN/1.7 3 M2 04/23/2017 7:30 PM CDT [facility] EGFR AFR. AMER. >60 >60 ML/MIN/1.7 3 M2 04/23/2017 7:30 PM CDT [facility] ANION GAP 9.0 7 - 16 MMOL/L 04/23/2017 7:30 PM CDT [facility] 04/23/2017 7:05 PM CDT 04/23/2017 7:11 PM CDT us Generic Conversion Md MIR LABORATORY Final R esult [facility] [address] [place] [address], * (ABNORMAL) URINALYSIS (04/23/2017 6:00 PM CDT) COLOR (U) STRAW 04/23/2017 6:11 PM CDT [facility] TRANSPARENCY HAZY 04/23/2017 6:11 PM CDT [facility] SPECIFIC GRAVITY (U) 1.020 1.000 - 1.025 04/23/2017 6:11 PM CDT [facility] U PH 5.5 5.0 - 8.0 04/23/2017 6:11 PM CDT [facility] LEUKOCYTES (U) NEGATIVE NEGATIVE 04/23/2017 6:11 PM CDT [facility] NITRITES NEGATIVE NEGATIVE 04/23/2017 6:11 PM CDT [facility] PROTEIN (U) NEGATIVE NEGATIVE 04/23/2017 6:11 PM CDT [facility] URINE GLUCOSE 2+(A) NEGATIVE 04/23/2017 6:11 PM CDT [facility] KETONES MG/DL (U) 3+(A) NEGATIVE 04/23/2017 6:11 PM CDT [facility] UROBILINOGEN 0.2 <1.0 EU/DL 04/23/2017 6:11 PM CDT [facility] BILIRUBIN (U) NEGATIVE NEGATIVE 04/23/2017 6:11 PM CDT [facility] BLOOD (U) NEGATIVE NEGATIVE 04/23/2017 6:11 PM CDT [facility] WBC/HPF 0-5 0 - 5 /HPF 04/23/2017 6:11 PM CDT [facility] EPI/HPF MANY /LPF 04/23/2017 6:11 PM CDT [facility] 04/23/2017 6:00 PM CDT 04/23/2017 6:04 PM CDT us Generic Conversion Md MIR URINE ORDERABLES Final Result Performing Organization Address City/[facility]/ZIP Co de Phone Number [facility] [address] [place] [address], * (ABNORMAL) GLUCOSE BLOOD, QNT (04/23/2017 5:52 PM CDT) GLUCOSE 145(H) 70 - 99 MG/DL 04/23/2017 6:14 PM CDT [facility] SERUM OR PLASMA SPECIMEN / Unknown 04/23/2017 5:52 PM CDT 04/23/2017 5:59 PM CDT us Generic Conversion Md MIR LABORATORY Final R eslucina Performing Organization Address [facility] Co de Phone Number [facility] [address] [place] [id number], * (ABNORMAL) GLUCOSE BLOOD, QNT (04/23/2017 5:16 PM CDT) GLUCOSE POC 164(H) 70 - 99 MG/DL 04/23/2017 5:19 PM CDT [facility] ORDERS INTERFACE 04/23/2017 5:16 PM CDT 04/23/2017 5:19 PM CDT us Generic Conversion Md MIR LABORATORY Final R esult Performing Organization Address City/[facility]/ZIP Co de Phone Number [facility] ORDERS INTERFACE US * (ABNORMAL) PHOSPHORUS, INORGANIC PHOSPHATE (04/23/2017 5:05 PM CDT) PHOSPHORUS 0.8(LL) 2.5 - 4.9 MG/DL 04/23/2017 5:32 PM CDT [facility] Comment:CRITICAL [place] [id number] BACK AND VERIFIED SERUM OR PLASMA SPECIMEN / Unknown 04/23/2017 5:05 PM CDT 04/23/2017 5:06 PM CDT us Generic Conversion Md MIR LABORATORY Final R eslucina [facility] [address] [place] [address], * (ABNORMAL) BASIC METABOLIC PANEL (04/23/2017 5:05 PM CDT) [facility] Signature GLUCOSE 140(H) 70 - 99 MG/DL 04/23/2017 5:32 PM CDT [facility] BUN 9 7 - 19 MG/DL 04/23/2017 5:32 PM CDT [facility] CREATININE S/P/B 0.84 0.57 - 1.11 MG/DL 04/23/2017 5:32 PM CDT [facility] SODIUM S/P/B 135(L) 136 - 145 MMOL/L 04/23/2017 5:32 PM CDT [facility] POTASSIUM S/P/B 3.7 3.5 - 5.1 MMOL/L 04/23/2017 5:32 PM CDT [facility] CHLORIDE S/P/B 108(H) 98 - 107 MMOL/L 04/23/2017 5:32 PM CDT [facility] CO2 14.0(L) 22.0 - 29.0 MMOL/L 04/23/2017 5:32 PM CDT [facility] CALCIUM S/P/B 7.8(L) 8.4 - 10.2 MG/DL 04/23/2017 5:32 PM CDT [facility] EGFR NON-AFR. AMER. >60 >60 ML/MIN/1.7 3 M2 04/23/2017 5:32 PM CDT [facility] EGFR AFR. AMER. >60 >60 ML/MIN/1.7 3 M2 04/23/2017 5:32 PM CDT [facility] ANION GAP 13.0 7 - 16 MMOL/L 04/23/2017 5:32 PM CDT [facility] 04/23/2017 5:05 PM CDT 04/23/2017 5:06 PM CDT us Generic Conversion Md MIR LABORATORY Final R esult [facility] [address] [place] [address], [place] [phone] * (ABNORMAL) BETA-HYDROXYBUTYRATE (04/23/2017 5:05 PM CDT) BETA-HYDROXYBU TYRATE 3.6(H) 0.0 - 0.3 MMOL/L 04/23/2017 5:09 PM CDT [facility] SERUM OR PLASMA SPECIMEN / Unknown 04/23/2017 5:05 PM CDT 04/23/2017 5:06 PM CDT us Generic Conversion Md MIR LABORATORY Final R esult Performing Organization Address City/[facility]/ZIP Co de Phone Number [facility] [place] [address], [place] [phone] * (ABNORMAL) GLUCOSE BLOOD, QNT (04/23/2017 4:09 PM CDT) Pathologist [facility] GLUCOSE POC 219(H) 70 - 99 MG/DL 04/23/2017 4:14 PM CDT [facility] ORDERS INTERFACE 04/23/2017 4:09 PM CDT 04/23/2017 4:14 PM CDT us Generic Conversion Md MIR LABORATORY Final R eslucina Performing Organization Address City/[facility]/ZIP Co de Phone Number [facility] ORDERS INTERFACE US * (ABNORMAL) PH-VENOUS (04/23/2017 3:30 PM CDT) Pathologist [facility] PH VENOUS 7.19(LL) 7.35 - 7.45 04/23/2017 4:17 PM CDT [facility] Comment:CRITICAL [place] [id number] BACK AND VERIFIEDRESULT CHECKED VENOUS BLOOD SPECIMEN / Unknown 04/23/2017 3:30 PM CDT 04/23/2017 4:15 PM CDT us Generic Conversion Md MIR LABORATORY Final R esult [facility] [address] [place] [address], [place] [phone] * (ABNORMAL) BASIC METABOLIC PANEL (04/23/2017 3:30 PM CDT) GLUCOSE 260(H) 70 - 99 MG/DL 04/23/2017 4:06 PM CDT [facility] BUN 10 7 - 19 MG/DL 04/23/2017 4:06 PM CDT [facility] CREATININE S/P/B 0.89 0.57 - 1.11 MG/DL 04/23/2017 4:06 PM CDT [facility] [facility] SODIUM S/P/B 133(L) 136 - 145 MMOL/L 04/23/2017 4:06 PM CDT [facility] POTASSIUM S/P/B 4.1 3.5 - 5.1 MMOL/L 04/23/2017 4:06 PM CDT [facility] CHLORIDE S/P/B 107 98 - 107 MMOL/L 04/23/2017 4:06 PM CDT [facility] CO2 10.0(LL) 22.0 - 29.0 MMOL/L 04/23/2017 4:06 PM CDT [facility] Comment:CRITICAL VALUECALLED TOKATIE IN ICU AT 1607READ BACK AND VERIFIED CALCIUM S/P/B 7.6(L) 8.4 - 10.2 MG/DL 04/23/2017 4:06 PM CDT [facility] EGFR NON-AFR. AMER. >60 >60 ML/MIN/1.7 3 M2 04/23/2017 4:06 PM CDT [facility] EGFR AFR. AMER. >60 >60 ML/MIN/1.7 3 M2 04/23/2017 4:06 PM CDT [facility] ANION GAP 16.0 7 - 16 MMOL/L 04/23/2017 4:06 PM CDT [facility] 04/23/2017 3:30 PM CDT 04/23/2017 3:44 PM CDT us Generic Conversion Md MIR LABORATORY Final R esult Performing Organization Address City/[facility]/ZIP Co de Phone Number [facility] [address] [place] [address], * (ABNORMAL) GLUCOSE BLOOD, QNT (04/23/2017 3:06 PM CDT) GLUCOSE POC 325(H) 70 - 99 MG/DL 04/23/2017 3:07 PM CDT [facility] ORDERS INTERFACE 04/23/2017 3:06 PM CDT 04/23/2017 3:07 PM CDT us Generic Conversion Md M[facility] LABORATORY Final R lucina Performing Organization Address [facility]/ZIP Co de Phone Number [facility] ORDERS INTERFACE US * (ABNORMAL) GLUCOSE BLOOD, QNT (04/23/2017 1:38 PM CDT) GLUCOSE POC 262(H) 70 - 99 MG/DL 04/23/2017 1:41 PM CDT [facility] ORDERS INTERFACE 04/23/2017 1:38 PM CDT 04/23/2017 1:41 PM CDT us Generic Conversion Md [facility] LABORATORY Luis venegas Performing Organization Address [facility]/ZIP Co de Phone Number [facility] ORDERS INTERFACE US * (ABNORMAL) BASIC METABOLIC PANEL (04/23/2017 1:30 PM CDT) GLUCOSE 319(H) 70 - 99 MG/DL 04/23/2017 2:14 PM CDT [facility] BUN 12 7 - 19 MG/DL 04/23/2017 2:14 PM CDT [facility] CREATININE S/P/B 0.86 0.57 - 1.11 MG/DL 04/23/2017 2:14 PM CDT [facility] SODIUM S/P/B 133(L) 136 - 145 MMOL/L 04/23/2017 2:14 PM CDT [facility] POTASSIUM S/P/B 4.9 3.5 - 5.1 MMOL/L 04/23/2017 2:14 PM CDT [facility] CHLORIDE S/P/B 106 98 - 107 MMOL/L 04/23/2017 2:14 PM CDT [facility] CO2 9.0(LL) 22.0 - 29.0 MMOL/L 04/23/2017 2:14 PM CDT [facility] Comment:CRITICAL VALUECALLED TOHEATHER ON 3RD AT 1414READ BACK AND VERIFIED CALCIUM S/P/B 7.6(L) 8.4 - 10.2 MG/DL 04/23/2017 2:14 PM CDT [facility] EGFR NON-AFR. AMER. >60 >60 ML/MIN/1.7 3 M2 04/23/2017 2:14 PM CDT [facility] EGFR AFR. AMER. >60 >60 ML/MIN/1.7 3 M2 04/23/2017 2:14 PM CDT [facility] ANION GAP 18.0(H) 7 - 16 MMOL/L 04/23/2017 2:14 PM CDT [facility] 04/23/2017 1:30 PM CDT 04/23/2017 1:53 PM CDT us Generic Conversion Md M[facility] LABORATORY Final R esult [facility] [place] [address], * (ABNORMAL) GLUCOSE BLOOD, QNT (04/23/2017 12:19 PM CDT) Pathologist [facility] GLUCOSE POC 204(H) 70 - 99 MG/DL 04/24/2017 4:19 AM CDT [facility] ORDERS INTERFACE 04/23/2017 12:1 9 PM CDT 04/24/2017 4:19 AM CDT us Generic Conversion Md M[facility] LABORATORY Final R esult [facility] ORDERS INTERFACE US * (ABNORMAL) URINALYSIS WI REFLEX TO CULTURE (04/23/2017 11:15 AM CDT) COLOR (U) YELLOW 04/23/2017 11:29 AM CDT [facility] TRANSPARENCY CLEAR 04/23/2017 11:29 AM CDT [facility] SPECIFIC GRAVITY (U) 1.030(H) 1.000 - 1.025 04/23/2017 11:29 AM CDT [facility] Comment:EQUAL TO OR GREATER THAN U PH 5.5 5.0 - 8.0 04/23/2017 11:29 AM CDT [facility] LEUKOCYTES (U) NEGATIVE NEGATIVE 04/23/2017 11:29 AM CDT [facility] NITRITES NEGATIVE NEGATIVE 04/23/2017 11:29 AM CDT [facility] PROTEIN (U) TRACE(A) NEGATIVE 04/23/2017 11:29 AM CDT [facility] URINE GLUCOSE NEGATIVE NEGATIVE 04/23/2017 11:29 AM CDT [facility] KETONES MG/DL (U) 3+(A) NEGATIVE 04/23/2017 11:29 AM CDT [facility] UROBILINOGEN 0.2 <1.0 EU/DL 04/23/2017 11:29 AM CDT [facility] BLOOD (U) NEGATIVE NEGATIVE 04/23/2017 11:29 AM CDT [facility] WBC/HPF 0-5 0 - 5 /HPF 04/23/2017 11:29 AM CDT [facility] EPI/HPF MANY /LPF 04/23/2017 11:29 AM CDT [facility] BACTERIA (U) TRACE /HPF 04/23/2017 11:29 AM CDT [facility] MUCUS PRESENT 04/23/2017 11:29 AM CDT [facility] OTHER CASTS (U) HYALINE /LPF 7 11:29 AM CDT [facility] Comment:5-10 BILIRUBIN (U) NEGATIVE NEGATIVE 04/23/2017 11:29 AM CDT [facility] CULTURE & SENSITIVITY INDICATED? NOT INDICATED 04/23/2017 11:29 AM CDT [facility] OTHER (type in comments) 04/23/2017 11:15 AM CDT 04/23/2017 11:18 AM CDT Comment:URINE SPECIMEN~URINE SPECIMEN us Generic Conversion Md MIR URINE ORDERABLES Final Result Performing Organization Address [facility] de Phone Number [address] [address], * TEST URINE (04/23/2017 11:15 AM CDT) PREG TEST NEGATIVE 04/23/2017 11:24 AM CDT [facility] SPECIFIC GRAVITY (U) >1.030 04/23/2017 11:24 AM CDT [facility] URINE SPECIMEN / Unknown 04/23/2017 11:15 AM CDT 04/23/2017 11:18 AM CDT us Generic Conversion Md MIR URINE ORDERABLES Final Result Performing Organization Address [facility] de Phone Number [facility] [address] [place] [address], * (ABNORMAL) PHOSPHORUS, INORGANIC PHOSPHATE (04/23/2017 11:05 AM CDT) PHOSPHORUS 1.9(L) 2.5 - 4.9 MG/DL 04/23/2017 12:13 PM CDT [facility] SERUM OR PLASMA SPECIMEN / Unknown 04/23/2017 11:05 AM CDT 04/23/2017 11:50 AM CDT us Generic Conversion Md M[facility] LABORATORY Final R esult Performing Organization Address [facility] Co de Phone Number [facility] [address] [place] [address], * (ABNORMAL) MAGNESIUM (04/23/2017 11:05 AM CDT) MAGNESIUM 1.4(L) 1.6 - 2.6 MG/DL 04/23/2017 12:13 PM CDT [facility] SERUM OR PLASMA SPECIMEN / Unknown 04/23/2017 11:05 AM CDT 04/23/2017 11:50 AM CDT us Generic Conversion Md M[facility] LABORATORY Final R esult Performing Organization Address City/[facility]/ZIP Co de Phone Number [facility] [address] [place] [address], * (ABNORMAL) BETA-HYDROXYBUTYRATE (04/23/2017 11:05 AM CDT) BETA-HYDROXYBU TYRATE 5.7(H) 0.0 - 0.3 MMOL/L 04/23/2017 11:52 AM CDT [facility] SERUM OR PLASMA SPECIMEN / Unknown 04/23/2017 11:05 AM CDT 04/23/2017 11:50 AM CDT us Generic Conversion Md MIR LABORATORY Final R esult Performing Organization Address City/[facility]/ZIP Co de Phone Number [facility] [address] [place] [address], * (ABNORMAL) BASIC METABOLIC PANEL (04/23/2017 11:05 AM CDT) GLUCOSE 137(H) 70 - 99 MG/DL 04/23/2017 11:34 AM CDT [facility] BUN 16 7 - 19 MG/DL 04/23/2017 11:34 AM CDT [facility] CREATININE S/P/B 0.84 0.57 - 1.11 MG/DL 04/23/2017 11:34 AM CDT [facility] SODIUM S/P/B 135(L) 136 - 145 MMOL/L 04/23/2017 11:34 AM CDT [facility] POTASSIUM S/P/B 4.6 3.5 - 5.1 MMOL/L 04/23/2017 11:34 AM CDT [facility] CHLORIDE S/P/B 105 98 - 107 MMOL/L 04/23/2017 11:34 AM CDT [facility] CO2 14.0(L) 22.0 - 29.0 MMOL/L 04/23/2017 11:34 AM CDT [facility] CALCIUM S/P/B 8.0(L) 8.4 - 10.2 MG/DL 04/23/2017 11:34 AM CDT [facility] EGFR NON-AFR. AMER. >60 >60 ML/MIN/1.7 3 M2 04/23/2017 11:34 AM CDT [facility] EGFR AFR. AMER. >60 >60 ML/MIN/1.7 3 M2 04/23/2017 11:34 AM CDT [facility] ANION GAP 16.0 7 - 16 MMOL/L 04/23/2017 11:34 AM CDT [facility] 04/23/2017 11:0 5 AM CDT 04/23/2017 11:10 AM CDT us Generic Conversion Md [facility] [phone] * (ABNORMAL) GLUCOSE BLOOD, QNT (04/23/2017 10:20 AM CDT) GLUCOSE POC 156(H) 70 - 99 MG/DL 04/23/2017 10:22 AM CDT [facility] ORDERS INTERFACE 04/23/2017 10:2 0 AM CDT 04/23/2017 10:22 AM CDT us Generic Conversion Md MIR LABORATORY Final R esult [facility] ORDERS INTERFACE US * (ABNORMAL) Blood gas, venous (04/23/2017 9:30 AM CDT) O2 SAT VENOUS 51 40 - 70 % 04/23/2017 9:52 AM CDT [facility] PH VENOUS 7.24(L) 7.35 - 7.45 04/23/2017 9:52 AM CDT [facility] PCO2 35.9(L) 41.0 - 51.0 MMHG 04/23/2017 9:52 AM CDT [facility] PO2 VENOUS 28.0 20.0 - 40.0 MM HG 04/23/2017 9:52 AM CDT [facility] BASE DEFICIT VENOUS 11.2 MMOL/L 04/23/2017 9:52 AM CDT [facility] BICARB VENOUS 15.0(L) 22.0 - 29.0 MMOL/L 04/23/2017 9:52 AM CDT [facility] TCO2 16.1(L) 25.0 - 29.0 MMOL/L 04/23/2017 9:52 AM CDT [facility] LITER FLOW ROOM AIR 04/23/2017 9:34 AM CDT [facility] 04/23/2017 9:30 AM CDT 04/23/2017 9:34 AM CDT us Generic Conversion Md MIR LABORATORY Final R esult Performing Organization Address City/[facility]/ZIP Co de Phone Number [facility] [address] [place] [address], * (ABNORMAL) BETA-HYDROXYBUTYRATE (04/23/2017 8:35 AM CDT) BETA-HYDROXYBU TYRATE 5.6(H) 0.0 - 0.3 MMOL/L 04/23/2017 8:52 AM CDT [facility] SERUM OR PLASMA SPECIMEN / Unknown 04/23/2017 8:35 AM CDT 04/23/2017 8:47 AM CDT us Generic Conversion Md MIR LABORATORY Final R esult [facility] [address] [place] [address], * LIPASE (04/23/2017 8:35 AM CDT) LIPASE 8 8 - 78 UNITS/L 04/23/2017 9:31 AM CDT [facility] SERUM OR PLASMA SPECIMEN / Unknown 04/23/2017 8:35 AM CDT 04/23/2017 8:39 AM CDT us Generic Conversion Md MIR LABORATORY Final R esult Performing Organization Address City/[facility]/ZIP Co de Phone Number [facility] [address] [place] [address], * LACTIC ACID (04/23/2017 8:35 AM CDT) [facility] LACTIC ACID VENOUS 1.4 0.5 - 2.2 MMOL/L 04/23/2017 9:10 AM CDT [facility] PLASMA SPECIMEN / Unknown 04/23/2017 8:35 AM CDT 04/23/2017 8:39 AM CDT us Generic Conversion Md [facility] Final R [facility] Performing Organization Address City/[facility]/ZIP Co de Phone Number [facility] [address] [place] [address], * (ABNORMAL) COMPREHENSIVE METABOLIC PANEL (04/23/2017 8:35 AM CDT) [facility] GLUCOSE 250(H) 70 - 99 MG/DL 04/23/2017 9:14 AM CDT [facility] BUN 17 7 - 19 MG/DL 04/23/2017 9:14 AM CDT [facility] CREATININE S/P/B 1.16(H) 0.57 - 1.11 MG/DL 04/23/2017 9:14 AM CDT [facility] SODIUM S/P/B 131(L) 136 - 145 MMOL/L 04/23/2017 9:14 AM CDT [facility] POTASSIUM S/P/B 3.9 3.5 - 5.1 MMOL/L 04/23/2017 9:14 AM [facility] CHLORIDE S/P/B 94(L) 98 - 107 MMOL/L 04/23/2017 9:14 AM [facility] CO2 14.0(L) 22.0 - 29.0 MMOL/L 04/23/2017 9:14 AM [facility] CALCIUM S/P/B 10.3(H) 8.4 - 10.2 MG/DL 04/23/2017 9:14 AM [facility] BILIRUBIN TOTAL S/P/B 1.2 0.2 - 1.2 MG/DL 04/23/2017 9:14 AM [facility] TOTAL PROTEIN S/P/B 9.1(H) 6.0 - 8.3 G/DL 04/23/2017 9:14 AM [facility] ALBUMIN S/P/B 4.9 3.5 - 5.2 G/DL 04/23/2017 9:31 AM [facility] AST 24 5 - 34 U/L 04/23/2017 9:14 AM [facility] ALT 26 0 - 55 U/L 04/23/2017 9:14 AM [facility] ALKALINE PHOSPHATASE S/P/B 116 50 - 136 U/L 04/23/2017 9:14 AM [facility] OSMOLALITY (CALC) 273(L) 275 - 300 MOSM/KG 04/23/2017 9:14 AM [facility] A/G RATIO 1.2 1.0 - 1.6 RATIO 04/23/2017 9:31 AM [facility] BUN CREATININE RATIO 14.7 12 - 20 04/23/2017 9:14 AM [facility] ANION GAP 23.0(H) 7 - 16 MMOL/L 04/23/2017 9:14 AM [facility] EGFR NON-AFR. AMER. 59(L) >60 ML/MIN/1.7 3 M2 04/23/2017 9:14 AM [facility] EGFR AFR. AMER. >60 >60 ML/MIN/1.7 3 M2 04/23/2017 9:14 AM CDT [facility] 04/23/2017 8:35 AM CDT 04/23/2017 8:39 AM CDT us Generic Conversion Md MIR LABORATORY Final R esult [facility] [address] [place] [address], * (ABNORMAL) CBC W/DIFF AUTOMATED (04/23/2017 8:35 AM CDT) WBC 10.3 4.5 - 10.8 x10'3/uL 04/23/2017 8:44 AM CDT [facility] RBC 5.09 4.10 - 5.40 x10'6/uL 04/23/2017 8:44 AM CDT [facility] HGB 15.5 12.0 - 16.0 G/DL 04/23/2017 8:44 AM CDT [facility] HCT 44.9 36.0 - 47.0 % 04/23/2017 8:44 AM CDT [facility] MCV 88.2 78.0 - 100.0 FL 04/23/2017 8:44 AM CDT [facility] MCH 30.5 27.0 - 31.0 PG 04/23/2017 8:44 AM CDT [facility] MCHC 34.5 33.0 - 36.0 G/DL 04/23/2017 8:44 AM CDT [facility] RDW 12.1 11.5 - 14.5 % 04/23/2017 8:44 AM CDT [facility] PLT 314 150 - 350 x10'3/uL 04/23/2017 8:44 AM CDT [facility] MPV 9.5 7.4 - 10.4 FL 04/23/2017 8:44 AM CDT [facility] SEG NEUTROPHILS 56.1 % 7 8:44 AM CDT [facility] LYMPHOCYTES 27.8 % 04/23/2017 8:44 AM CDT [facility] MONOCYTES 6.2 % 04/23/2017 8:44 AM CDT [facility] EOSINOPHILS 8.4 % 04/23/2017 8:44 AM CDT [facility] BASOPHILS 1.2 % 04/23/2017 8:44 AM CDT [facility] IMMATURE GRANS % 0.3 % 04/23/20 17 8:44 AM CDT [facility] NRBC 0.0 % 04/23/2017 8:44 AM CDT [facility] ABS. NEUTROPHILS 5.77 1.60 - 8.30 x10'3/uL 04/23/2017 8:44 AM CDT [facility] ABS. LYMPHOCYTES 2.86 0.80 - 4.70 x10'3/uL 04/23/2017 8:44 AM CDT [facility] ABS. MONOCYTES 0.64 0.00 - 1.50 x10'3/uL 04/23/2017 8:44 AM CDT [facility] ABS. EOSINOPHILS 0.86(H) 0.00 - 0.40 x10'3/uL 04/23/2017 8:44 AM CDT [facility] ABS. BASOPHILS 0.12 0.00 - 0.20 x10'3/uL 04/23/2017 8:44 AM CDT [facility] ABS. IMMATURE GRANULOCYTES 0.03 0.00 - 0.03 x10'3/uL 04/23/2017 8:44 AM CDT [facility] ABS. NUCLEATED RBC'S 0.00 0.00 x10'3/uL 04/23/2017 8:44 AM CDT [facility] OTHER (type in comments) 04/23/2017 8:35 AM CDT 04/23/2017 8:39 AM CDT Comment:WHOLE BLOOD SAMPLE us Generic Conversion Md MIR LABORATORY Final R esult [facility] [address] [place], [place] [address] [phone] * (ABNORMAL) GLUCOSE BLOOD, QNT (04/23/2017 8:20 AM CDT) GLUCOSE POC 188(H) 70 - 99 MG/DL 04/23/2017 8:22 AM CDT [facility] ORDERS INTERFACE 04/23/2017 8:20 AM CDT 04/23/2017 8:22 AM CDT us Generic Conversion Md MIR LABORATORY Final R esult [facility] ORDERS INTERFACE US documented in this encounter Visit Diagnoses Diagnosis Type 1 diabetes mellitus with ketoacidosis and without coma ([facility]/HCC HHS/HCC) Type I (juvenile type) diabetes mellitus with ketoacidosis, not stated as uncontrolled documented in this encounter
--- OUTSIDE RECORDS SUMMARY | 2024-08-03 01:12 | XMS_ITS | Encounter Summary ---
Author Organization [facility] Address [address] [facility] [place] [address] [place] [address] Care Team Providers Care Music Copyist Name Role Phone Unavailable Primary Care Provider Unavailabl e Encounter Details Date Type Department Care Team (Late st Contact Info) Description 08/25/2013 Abstract [facility] [address] [place] [address] Bigg Riley MD [address] [place], [place] [address] Social History Tobacco Use Types Packs/Day Years [...] of this encounter Visit Diagnoses Diagnosis Vomiting alone documented in this encounter
--- OUTSIDE RECORDS SUMMARY | 2024-08-03 01:12 | XMS_ITS | Encounter Summary ---
Author Organization [facility] Address [facility] [facility]. [place], [place] [id number] [place] [address] Care Team Providers Care Heart Specialist Name Role Phone Unavailable Primary Care Provider Unavailabl e Encounter Details Date Type Department Care Team (Latest Contact Info) Description 08/09/[address] [facility] Social History Tobacco Use Types [...]
--- OUTSIDE RECORDS SUMMARY | 2024-08-03 01:12 | XMS_ITS | Encounter Summary ---
Author Organization [facility] Address [address] [facility] [address] [place] [address] Care Team Providers Care Laborer Wrecking And Salvaging Name Role Phone Unavailable Primary Care Provider Unavailabl e Encounter Details Date Type Department Care Team (Late st Contact Info) Description 03/10/2014 Abstract [facility] [address] [place], [place] [address] Kirk Hurtado, ENZYME CHEMIST [address], [place], [place] [address] Social History Tobacco Use Types Packs/Day Years [...]
--- OUTSIDE RECORDS SUMMARY | 2024-08-03 01:12 | XMS_ITS | Encounter Summary ---
Author Organization [facility] Address On license of [facility] [facility] [place] [address] [place] [address] Care Team Providers Care Employment Specialist/Program Manager Name Role Phone Unavailable Primary Care Provider Unavailabl e Encounter Details Date Type Department Care Team (Late st Contact Info) Description 04/28/[address] [facility] [address] [place] [address] Alli Villegas MD [address] [place] [address] Social History Tobacco Use Types Packs/Day Years [...] as of this encounter Visit Diagnoses Diagnosis Gastroparesis documented in this encounter
--- OUTSIDE RECORDS SUMMARY | 2024-08-03 01:12 | XMS_ITS | Encounter Summary ---
Author Organization [facility] Address [facility] [facility]. [place], [place] [address] [place] [address] Care Team Providers Care Blocker Polishing Name Role Phone Unavailable Primary Care Provider Unavailabl e Encounter Details Date Type Department Care Team (Latest Contact Info) Description 08/07/2017 Abstract [facility] Social History Tobacco Use Types [...]
--- OUTSIDE RECORDS SUMMARY | 2024-08-03 01:12 | XMS_ITS | Encounter Summary ---
Author Organization [facility] Address [facility] [facility] [place] [address] [place] [address] Care Team Providers Care Litigation Coordinator Name Role Phone Unavailable Primary Care Provider Unavailabl e Encounter Details Date Type Department Care Team (Late st Contact Info) Description 02/02/2013 Abstract [facility] [address] [place] [address] Social History Tobacco Use Types Packs/Day Years [...]
--- OUTSIDE RECORDS SUMMARY | 2024-08-03 01:12 | XMS_ITS | Encounter Summary ---
Author Organization [facility] Address [facility], [id number] [facility] [place] [address] [place] [address] Care Team Providers Care Leadership Recruiter Name Role Phone Unavailable Primary Care Provider Unavailabl e Encounter Details Date Type Department Care Team (Late st Contact Info) Description 10/04/2015 Abstract [facility] [address] [place] [address] Social History Tobacco Use [...]
--- OUTSIDE RECORDS SUMMARY | 2024-08-03 01:12 | XMS_ITS | Encounter Summary ---
Author Organization [facility] Address [facility] [facility] [place] [address] [place] [address] Care Team Providers Care Felt Puller Name Role Phone Unavailable Primary Care Provider Unavailabl e Encounter Details Date Type Department Care Team (Late st Contact Info) Description 11/28/2015 Abstract [facility] [address] [place] [place] [address] Eduardo Oakley MD [address] [place] [address] Social History Tobacco Use Types Packs/Day [...] Procedure Name Priority Date/Time Associated Diagnosis Comments ECG 12-LEAD Routine 11/28/2015 8:49 AM CDT documented in this encounter Results * ECG 12 lead (11/28/2015 8:49 AM CDT) 11/28/2015 8:49 AM CDT Narrative [facility] - 11/29/2015 9:39 AM CDT ? [facility] ? [address], [place] ??[address] ? Test Date: ?2015-11-28 Pat Name: ? STEPH PARDEEP ? Department: ?? 1 ? Room: ? 0718 Gender: ? F ?Mold Insert Changer: ?? [place] : ?1990 ? Requested By: LETA PERDUE Order Number: [id number] ? Reading MD: ?? Galen Mary ? Measurements Intervals ?[place] ? Rate: ? 87 ? P: ?42 AK: ? 146 ?QRS: ?69 QRSD: ? 79 ? T: ?31 QT: ? 377 ? QTc: ?454 ? Interpretive Statements SINUS RHYTHM NONSPECIFIC T-WAVE ABNORMALITY Procedure Note , Generic Conversion, - 03/18/2019 [facility] [address] [place] [address] Test Date: 2015-11-28 Pat Name: STEPH ROBERTO Department: 1 Room: 0718 Gender: F Mold Insert Changer: [place] : 1990 Requested By: LETA PERDUE Order Number: [id number] Reading MD: Galen Hernandez Measurements Intervals [place] Rate: 87 P: 42 [place]: 146 QRS: 69 QRSD: 79 T: 31 QT: 377 QTc: 454 Interpretive Statements SINUS RHYTHM NONSPECIFIC T-WAVE ABNORMALITY us Generic Conversion Md MIR ECG ORDERABLES Final R esult [facility] documented in this encounter Visit Diagnoses Diagnosis Type 1 diabetes mellitus with ketoacidosis and without coma ([facility]) Type I (juvenile type) diabetes mellitus with ketoacidosis, not stated as uncontrolled documented in this encounter
--- OUTSIDE RECORDS SUMMARY | 2024-08-03 01:12 | XMS_ITS | Encounter Summary ---
Author Organization [facility] Address [address] [facility] [place] [address] [place] [address] Care Team Providers Care Production Machine Shop Supervisor Name Role Phone Unavailable Primary Care Provider Unavailabl e Encounter Details Date Type Department Care Team (Late st Contact Info) Description 08/29/2017 Abstract [facility] [address] [place] [address] Arnoldo Gale MD [address] [place] [address] Social History Tobacco Use Types Packs/Day Years [...] Associated Diagnosis Comments GLUCOSE BLOOD, QNT Routine 08/29/2017 4: 41 PM ACCOUNTING SUPERVISOR BLOOD GAS, VENOUS STAT 08/29/2017 3:4 0 PM ACCOUNTING SUPERVISOR COMPREHENSIVE METABOLIC PANEL STAT 08/29/2017 3:40 PM ACCOUNTING SUPERVISOR LACTIC ACID STAT 08/29/2017 3:40 PM ACCOUNTING SUPERVISOR CULTURE, BACTERIA, BLOOD STAT 08/29/2017 3:40 PM ACCOUNTING SUPERVISOR CULTURE, BACTERIA, BLOOD STAT 08/29/2017 3:40 PM ACCOUNTING SUPERVISOR CBC W/DIFF AUTOMATED STAT 08/29/2017 3:40 PM ACCOUNTING SUPERVISOR PHOSPHORUS, INORGANIC PHOSPHATE STAT 08/29/2017 3:40 PM ACCOUNTING SUPERVISOR MAGNESIUM STAT 08/29/2017 3:40 PM ACCOUNTING SUPERVISOR documented in this encounter Results * (ABNORMAL) GLUCOSE BLOOD, QNT (08/29/2017 4:41 PM ACCOUNTING SUPERVISOR) [facility] GLUCOSE POC 243(H) 70 - 99 MG/DL 08/29/2017 4:42 PM ACCOUNTING SUPERVISOR [facility] ORDERS INTERFACE 08/29/2017 4:41 PM ACCOUNTING SUPERVISOR 08/29/2017 4:42 PM ACCOUNTING SUPERVISOR us Generic Conversion Md MIR LABORATORY Final R esult [facility] ORDERS INTERFACE US * CULTURE, BACTERIA, BLOOD (08/29/2017 3:40 PM ACCOUNTING SUPERVISOR) Pathologist [facility] SPEC DESCRIPTION BLOOD 08/29/2017 3:47 PM ACCOUNTING SUPERVISOR [facility] SPECIAL REQUESTS NO SPECIAL REQUEST 08/29/2017 3:47 PM ACCOUNTING SUPERVISOR [facility] CULTURE RESULT NO GROWTH 5 DAYS 09/03/2017 5:46 AM ACCOUNTING SUPERVISOR [facility] BLOOD SPECIMEN OBTAINED FOR BLOOD CULTURE / Unknown 08/29/2017 3:40 PM ACCOUNTING SUPERVISOR 08/29/2017 3:51 PM ACCOUNTING SUPERVISOR us Generic Conversion Md MIR MICROBIOLOGY - GENERAL ORDERABLES Final Result [facility] [address] [place] [address], * CULTURE, BACTERIA, BLOOD (08/29/2017 3:40 PM ACCOUNTING SUPERVISOR) SPEC DESCRIPTION BLOOD 08/29/2017 3:47 PM ACCOUNTING SUPERVISOR [facility] SPECIAL REQUESTS NO SPECIAL REQUEST 08/29/2017 3:47 PM ACCOUNTING SUPERVISOR [facility] CULTURE RESULT NO GROWTH 5 DAYS 09/03/2017 5:46 AM [facility] BLOOD SPECIMEN OBTAINED FOR BLOOD CULTURE / Unknown 08/29/2017 3:40 PM ACCOUNTING SUPERVISOR 08/29/2017 3:50 PM ACCOUNTING SUPERVISOR us Generic Conversion Md MIR MICROBIOLOGY - GENERAL ORDERABLES Final Result [facility] [address] [place] [address], * (ABNORMAL) Blood gas, venous (08/29/2017 3:40 PM ACCOUNTING SUPERVISOR) O2 SAT VENOUS 92(H) 40 - 70 % 08/29/2017 3:52 PM [facility] PH VENOUS 7.35 7.35 - 7.45 08/29/2017 3:52 PM [facility] PCO2 42.8 41.0 - 51.0 MMHG 08/29/2017 3:52 PM [facility] PO2 VENOUS 66.0(H) 20.0 - 40.0 MM HG 08/29/2017 3:52 PM [facility] BASE DEFICIT VENOUS 2.0 MMOL/L 08/29/2017 3:52 PM [facility] BICARB VENOUS 23.1 22.0 - 29.0 MMOL/L 08/29/2017 3:52 PM [facility] TCO2 24.4(L) 25.0 - 29.0 MMOL/L 08/29/2017 3:52 PM [facility] LITER FLOW ROOM AIR 08/29/2017 3:50 PM [facility] 08/29/2017 3:40 PM ACCOUNTING SUPERVISOR 08/29/2017 3:48 PM ACCOUNTING SUPERVISOR us Generic Conversion Md MIR LABORATORY Final R esult [facility] [address] [place] [address], * PHOSPHORUS, INORGANIC PHOSPHATE (08/29/2017 3:40 PM ACCOUNTING SUPERVISOR) PHOSPHORUS 2.6 2.5 - 4.9 MG/DL 08/29/2017 4:12 PM ACCOUNTING SUPERVISOR [facility] SERUM OR PLASMA SPECIMEN / Unknown 08/29/2017 3:40 PM ACCOUNTING SUPERVISOR 08/29/2017 3:48 PM ACCOUNTING SUPERVISOR us Generic Conversion Md MIR LABORATORY Final R esult Performing Organization Address City/[facility]/[place] [address], * MAGNESIUM (08/29/2017 3:40 PM ACCOUNTING SUPERVISOR) MAGNESIUM 1.8 1.6 - 2.6 MG/DL 08/29/2017 4:12 PM ACCOUNTING SUPERVISOR [facility] SERUM OR PLASMA SPECIMEN / Unknown 08/29/2017 3:40 PM ACCOUNTING SUPERVISOR 08/29/2017 3:48 PM ACCOUNTING SUPERVISOR us Generic Conversion Md MIR LABORATORY Final R eslucina Performing Organization Address City/[facility]/ZIP Co de Phone Number [facility] [address] [place] [address], [place] [phone] * LACTIC ACID (08/29/2017 3:40 PM ACCOUNTING SUPERVISOR) LACTIC ACID VENOUS 1.2 0.5 - 2.2 MMOL/L 08/29/2017 4:06 PM ACCOUNTING SUPERVISOR [facility] PLASMA SPECIMEN / Unknown 08/29/2017 3:40 PM ACCOUNTING SUPERVISOR 08/29/2017 3:48 PM ACCOUNTING SUPERVISOR us Generic Conversion Md MIR LABORATORY Final R theo Performing Organization Address [facility]/ZIP Co de Phone Number [facility] [address] [place] [address], [place] [phone] * (ABNORMAL) COMPREHENSIVE METABOLIC PANEL (08/29/2017 3:40 PM ACCOUNTING SUPERVISOR) GLUCOSE 311(H) 70 - 99 MG/DL 08/29/2017 4:12 PM [facility] BUN 15 7 - 19 MG/DL 08/29/2017 4:12 PM [facility] CREATININE S/P/B 0.85 0.57 - 1.11 MG/DL 08/29/2017 4:12 PM [facility] SODIUM S/P/B 137 136 - 145 MMOL/L 08/29/2017 4:12 PM [facility] POTASSIUM S/P/B 4.1 3.5 - 5.1 MMOL/L 08/29/2017 4:12 PM [facility] CHLORIDE S/P/B 101 98 - 107 MMOL/L 08/29/2017 4:12 PM [facility] CO2 21.0(L) 22.0 - 29.0 MMOL/L 08/29/2017 4:12 PM [facility] CALCIUM S/P/B 9.2 8.4 - 10.2 MG/DL 08/29/2017 4:12 PM [facility] BILIRUBIN TOTAL S/P/B 1.0 0.2 - 1.2 MG/DL 08/29/2017 4:12 PM [facility] TOTAL PROTEIN S/P/B 7.6 6.0 - 8.3 G/DL 08/29/2017 4:12 PM [facility] ALBUMIN S/P/B 4.2 3.5 - 5.2 G/DL 08/29/2017 4:12 PM [facility] AST 18 5 - 34 U/L 08/29/2017 4:12 PM [facility] ALT 14 0 - 55 U/L 08/29/2017 4:12 PM [facility] ALKALINE PHOSPHATASE S/P/B 72 50 - 136 U/L 08/29/2017 4:12 PM [facility] OSMOLALITY (CALC) 286 275 - 300 MOSM/KG 08/29/2017 4:12 PM [facility] A/G RATIO 1.2 1.0 - 1.6 RATIO 08/29/2017 4:12 PM ACCOUNTING SUPERVISOR [facility] BUN CREATININE RATIO 17.6 12 - 20 08/29/2017 4:12 PM [facility] ANION GAP 15.0 7 - 16 MMOL/L 08/29/2017 4:12 PM [facility] EGFR NON-AFR. AMER. >60 >60 ML/MIN/1.7 3 M2 08/29/2017 4:12 PM ACCOUNTING SUPERVISOR [facility] EGFR AFR. AMER. >60 >60 ML/MIN/1.7 3 M2 08/29/2017 4:12 PM [facility] 08/29/2017 3:40 PM ACCOUNTING SUPERVISOR 08/29/2017 3:48 PM ACCOUNTING SUPERVISOR us Generic Conversion Md MIR LABORATORY Final R esult [facility] [place] [address], * CBC W/DIFF AUTOMATED (08/29/2017 3:40 PM ACCOUNTING SUPERVISOR) WBC 8.8 4.5 - 10.8 x10'3/uL 08/29/2017 3:55 PM [facility] RBC 4.49 4.10 - 5.40 x10'6/uL 08/29/2017 3:55 PM [facility] HGB 13.7 12.0 - 16.0 G/DL 08/29/2017 3:55 PM [facility] HCT 39.7 36.0 - 47.0 % 08/29/2017 3:55 PM [facility] MCV 88.4 78.0 - 100.0 FL 08/29/2017 3:55 PM [facility] MCH 30.5 27.0 - 31.0 PG 08/29/2017 3:55 PM [facility] MCHC 34.5 33.0 - 36.0 G/DL 08/29/2017 3:55 PM [facility] RDW 12.1 11.5 - 14.5 % 08/29/2017 3:55 PM [facility] PLT 250 150 - 350 x10'3/uL 08/29/2017 3:55 PM [facility] MPV 10.0 7.4 - 10.4 FL 08/29/2017 3:55 PM [facility] SEG NEUTROPHILS 72.9 % 8 3:55 PM [facility] LYMPHOCYTES 18.6 % 08/29/2017 3:55 PM [facility] MONOCYTES 5.2 % 08/29/2017 3:55 PM [facility] EOSINOPHILS 2.3 % 08/29/2017 3:55 PM [facility] BASOPHILS 0.8 % 08/29/2017 3:55 PM [facility] IMMATURE GRANS % 0.2 % 08/29/19 18 3:55 PM [facility] NRBC 0.0 % 08/29/2017 3:55 PM [facility] ABS. NEUTROPHILS 6.45 1.60 - 8.30 x10'3/uL 08/29/2017 3:55 PM [facility] ABS. LYMPHOCYTES 1.64 0.80 - 4.70 x10'3/uL 08/29/2017 3:55 PM [facility] ABS. MONOCYTES 0.46 0.00 - 1.50 x10'3/uL 08/29/2017 3:55 PM [facility] ABS. EOSINOPHILS 0.20 0.00 - 0.40 x10'3/uL 08/29/2017 3:55 PM [facility] ABS. BASOPHILS 0.07 0.00 - 0.20 x10'3/uL 08/29/2017 3:55 PM [facility] ABS. IMMATURE GRANULOCYTES 0.02 0.00 - 0.03 x10'3/uL 08/29/2017 3:55 PM [facility] ABS. NUCLEATED RBC'S 0.00 0.00 x10'3/uL 08/29/2017 3:55 PM ACCOUNTING SUPERVISOR [facility] OTHER (type in comments) 08/29/2017 3:40 PM ACCOUNTING SUPERVISOR 08/29/2017 3:48 PM ACCOUNTING SUPERVISOR Comment:WHOLE BLOOD SAMPLE us Generic Conversion Md MIR LABORATORY Final R esult [facility] [address] [place] [address], documented in this encounter Visit Diagnoses Diagnosis Vomiting Vomiting alone documented in this encounter
--- OUTSIDE RECORDS SUMMARY | 2024-08-03 01:12 | XMS_ITS | Encounter Summary ---
Author Organization [facility] Address [facility] [facility] [place] [address] [place] [address] Care Team Providers Care Sales Support Advisor Name Role Phone Unavailable Primary Care Provider Unavailabl e Encounter Details Date Type Department Care Team (Late st Contact Info) Description 04/08/[address] [facility] [address] [place] [address] Social History Tobacco Use Types [...] of this encounter Visit Diagnoses Diagnosis Other chest pain documented in this encounter
--- OUTSIDE RECORDS SUMMARY | 2024-08-03 01:12 | XMS_ITS | Encounter Summary ---
Author Organization [facility] Address [facility]6 [facility]. [place], [place] [address] [place] [address] Care Team Providers Care Antique Dealer Name Role Phone Unavailable Primary Care Provider Unavailabl e Encounter Details Date Type Department Care Team (Latest Contact Info) Description 12/13/2012 Abstract [facility] Medical Group Social History Tobacco [...]
--- OUTSIDE RECORDS SUMMARY | 2024-08-03 01:12 | XMS_ITS | Encounter Summary ---
Author Organization [facility] Address [facility]. [place], [place] [address] [place] [address] Care Team Providers Care Assisted Living Assistant Name Role Phone Unavailable Primary Care Provider Unavailabl e Encounter Details Date Type Department Care Team (Latest Contact Info) Description 11/29/2015 Abstract [facility] Medical Group Social History Tobacco Use Types [...]
--- OUTSIDE RECORDS SUMMARY | 2024-08-03 01:12 | XMS_ITS | Encounter Summary ---
Author Organization [facility] Address [facility] [place] [address] [place] [address] Care Team Providers Care Marker Shipments Name Role Phone Unavailable Primary Care Provider Unavailabl e Encounter Details Date Type Department Care Team (Late st Contact Info) Description 03/26/2015 Real [facility] [address] [place] [address] , Carolee Duenas MD Social History Tobacco [...]
--- OUTSIDE RECORDS SUMMARY | 2024-08-03 01:12 | XMS_ITS | Encounter Summary ---
Author Organization [facility] Address [facility] [place] [address] [place] [address] Care Team Providers Care Director Of Parks And Recreation Name Role Phone Unavailable Primary Care Provider Unavailabl e Encounter Details Date Type Department Care Team (Late st Contact Info) Description 09/02/[address] [facility] [address] [place] [address] Alli Villegas MD [address] [place], [place] [id number] Social History Tobacco Use Types Packs/Day Years [...]
--- OUTSIDE RECORDS SUMMARY | 2024-08-03 01:12 | XMS_ITS | Encounter Summary ---
Author Organization [facility] Address [facility] [place] [address] [place] [address] Care Team Providers Care Industrial Maintenance Repairer Helper Name Role Phone Unavailable Primary Care Provider Unavailabl e Encounter Details Date Type Department Care Team (Late st Contact Info) Description 08/04/[address] [address] [place] [place] [address] Timothy Graham MD [address] [place] [address] Social History Tobacco Use Types [...]
--- OUTSIDE RECORDS SUMMARY | 2024-08-03 01:12 | XMS_ITS | Encounter Summary ---
Author Organization [facility] Address [address] [facility] [place] [address] [place] [address] Care Team Providers Care Head Of Advertising Name Role Phone Unavailable Primary Care Provider Unavailabl e Encounter Details Date Type Department Care Team (Late st Contact Info) Description 03/18/2015 Abstract [facility] [address] [place] [address] [place] [address] [place] [address] Social History Tobacco Use Types [...] encounter Visit Diagnoses Diagnosis Type I diabetes mellitus with ketoacidosis (CMS/HCC HHS/HCC) Type I (juvenile type) diabetes mellitus with ketoacidosis, uncontrolled documented in this encounter
--- OUTSIDE RECORDS SUMMARY | 2024-08-03 01:12 | XMS_ITS | Encounter Summary ---
Author Organization [facility] Address Replaced by [facility] [place] [address] [place] [address] Care Team Providers Care Pit And Auxiliaries Supervisor Name Role Phone Unavailable Primary Care Provider Unavailabl e Encounter Details Date Type Department Care Team (Late st Contact Info) Description 01/28/2016 Abstract [facility] [address] [place] [address] Social History Tobacco Use Types [...]
--- OUTSIDE RECORDS SUMMARY | 2024-08-03 01:12 | XMS_ITS | Encounter Summary ---
Author Organization [facility] Address [address] [facility] [address] [place] [address] Care Team Providers Care Mri Special Procedures Technologist Name Role Phone Unavailable Primary Care Provider Unavailabl e Encounter Details Date Type Department Care Team (Late st Contact Info) Description 07/22/2012 Abstract [facility] Nuclear Medicine [address] [place] [address] Katalina Ospina MD [address] [address] [place] [address] Social History Tobacco Use Types Packs/Day Years [...]
--- OUTSIDE RECORDS SUMMARY | 2024-08-03 01:12 | XMS_ITS | Encounter Summary ---
Author Organization [facility] Address [facility]. [place], [place] [address] [place] [address] Care Team Providers Care Human Service Coordinator Name Role Phone Unavailable Primary Care Provider Unavailabl e Encounter Details Date Type Department Care Team (Latest Contact Info) Description 11/28/2015 Abstract [facility] Medical Group Social History Tobacco Use [...]
--- OUTSIDE RECORDS SUMMARY | 2024-08-03 01:12 | XMS_ITS | Encounter Summary ---
Author Organization [facility] Address [facility] [place] [address] [place] [address] Care Team Providers Care Procedure Manager Name Role Phone Unavailable Primary Care Provider Unavailabl e Encounter Details Date Type Department Care Team (Late st Contact Info) Description 06/04/2014 Abstract [place] [facility] [address] [place] [address] Chiqui Saunders, DO [address] [place], [place] [address] Social History Tobacco Use Types Packs/Day Years [...] of this encounter Visit Diagnoses Diagnosis Other and unspecified noninfectious gastroenteritis and colitis documented in this encounter
--- OUTSIDE RECORDS SUMMARY | 2024-08-03 01:12 | XMS_ITS | Encounter Summary ---
Author Organization [facility] Address [facility]6 [facility] [address] [place] [address] Care Team Providers Care Substation Engineer Name Role Phone Unavailable Primary Care Provider Unavailabl e Encounter Details Date Type Department Care Team (Late st Contact Info) Description 06/02/2014 Abstract [place] [facility] [address] [place] [place] [address] Sami Aguilera MD [address] [place] [address] Social History Tobacco Use Types Packs/Day [...]
--- OUTSIDE RECORDS SUMMARY | 2024-08-03 01:13 | XMS_ITS | Encounter Summary ---
Author Organization [facility] Address [facility] [place] [address] [place] [address] Care Team Providers Care Special Warfare Boat Operator Name Role Phone Unavailable Primary Care Provider Unavailabl e Encounter Details Date Type Department Care Team (Late st Contact Info) Description 04/14/2010 Abstract [facility] [address] [place] [address] Social History Tobacco Use Types Packs/Day Years [...] as of this encounter Visit Diagnoses Diagnosis Maternal diabetes mellitus, antepartum (HHS/HCC) Diabetes mellitus, antepartum documented in this encounter
--- OUTSIDE RECORDS SUMMARY | 2024-08-03 01:13 | XMS_ITS | Encounter Summary ---
Author Organization [facility] Address [facility] [place] [address] [place] [address] Care Team Providers Care Warp Yarn Sorter Name Role Phone Unavailable Primary Care Provider Unavailabl e Encounter Details Date Type Department Care Team (Late st Contact Info) Description 10/04/[address] [facility] & Delivery [address] [place] [address] Social History Tobacco Use Types Packs/Day Years [...] as of this encounter Visit Diagnoses Diagnosis Threatened premature labor, antepartum (HHS/HCC) documented in this encounter
--- OUTSIDE RECORDS SUMMARY | 2024-08-03 01:13 | XMS_ITS | Encounter Summary ---
Author Organization [facility] Address [facility]6 [facility] [place] [address] [place] [address] Care Team Providers Care Technical Sales Manager Name Role Phone Unavailable Primary Care Provider Unavailabl e Encounter Details Date Type Department Care Team (Late st Contact Info) Description 11/17/2010 Abstract [facility] Outpatient Labor & Delivery [address] [place] [address] Social History Tobacco Use Types Packs/Day Years [...]
--- OUTSIDE RECORDS SUMMARY | 2024-08-03 01:13 | XMS_ITS | Encounter Summary ---
Author Organization [facility] Address [address] [facility] [place] [address] [place] [address] Care Team Providers Care Brush Maker Name Role Phone Unavailable Primary Care Provider Unavailabl e Encounter Details Date Type Department Care Team (Late st Contact Info) Description 06/22/2010 Abstract [facility] [address] [place] [address] Karlo Lopez MD [address] [facility] [address] [place] [address] Social History Tobacco Use Types Packs/Day Years [...] as of this encounter Visit Diagnoses Diagnosis Screening examination for sexually transmitted disease Screening examination for venereal disease documented in this encounter
--- OUTSIDE RECORDS SUMMARY | 2024-08-03 01:13 | XMS_ITS | Encounter Summary ---
Author Organization [facility] Address [facility]6 [facility] [place] [address] [place] [address] Care Team Providers Care Gold Assayer Name Role Phone Unavailable Primary Care Provider Unavailabl e Encounter Details Date Type Department Care Team (Late st Contact Info) Description 09/26/2011 Abstract [facility] [address] [place] [address] Isaias Saenz MD [address] [place] [address] Social History Tobacco Use Types [...]
--- OUTSIDE RECORDS SUMMARY | 2024-08-03 01:13 | XMS_ITS | Encounter Summary ---
Author Organization [facility] Address [facility] [place] [address] [place] [address] Care Team Providers Care Director Cloud Transformation Name Role Phone Unavailable Primary Care Provider Unavailabl e Encounter Details Date Type Department Care Team (Late st Contact Info) Description 05/18/[address] [facility] [address] [place] [address] Karen Jallho MD [address] [place] [address] Social History Tobacco Use Types [...]
--- OUTSIDE RECORDS SUMMARY | 2024-08-03 01:13 | XMS_ITS | Encounter Summary ---
Author Organization [facility] Address [facility]6 [facility] [place] [address] [place] [address] Care Team Providers Care Manufacturing Engineering Technologist Name Role Phone Unavailable Primary Care Provider Unavailabl e Encounter Details Date Type Department Care Team (Late st Contact Info) Description 11/19/2011 Abstract [facility] [address] [place] [address] Bigg Riley MD [address] [place], [place] [address] Social History Tobacco Use Types Packs/Day Years [...]
--- OUTSIDE RECORDS SUMMARY | 2024-08-03 01:13 | XMS_ITS | Encounter Summary ---
Author Organization [facility] Address [address] [place] [address] [place] [address] Care Team Providers Care Termite Inspector Name Role Phone Unavailable Primary Care Provider Unavailabl e Encounter Details Date Type Department Care Team (Late st Contact Info) Description 11/22/2010 Abstract [facility] [address] [place] [address] Raz Amador MD [address] [place] [address] Social History Tobacco Use Types [...] this encounter Visit Diagnoses Diagnosis Maternal diabetes mellitus with delivery (HHS/HCC) Diabetes mellitus of mother, with delivery documented in this encounter
--- OUTSIDE RECORDS SUMMARY | 2024-08-03 01:13 | XMS_ITS | Encounter Summary ---
Author Organization [facility] Address [facility] [facility] [place] [address] [place] [address] Care Team Providers Care Haul Truck Driver Name Role Phone Unavailable Primary Care Provider Unavailabl e Encounter Details Date Type Department Care Team (Late st Contact Info) Description 06/19/2010 Abstract [facility] [address] [place] [address] Social History Tobacco Use Types [...] of this encounter Visit Diagnoses Diagnosis Other complication of , antepartum (HHS/HCC) documented in this encounter
--- OUTSIDE RECORDS SUMMARY | 2024-08-03 01:13 | XMS_ITS | Encounter Summary ---
Author Organization [facility] Address [facility]6 [facility] [place] [address] [place] [address] Care Team Providers Care Ring Spinner Name Role Phone Unavailable Primary Care Provider Unavailabl e Encounter Details Date Type Department Care Team (Late st Contact Info) Description 05/25/[address] [facility] [address] [place] [address] Social History Tobacco Use Types Packs/Day Years [...]
--- OUTSIDE RECORDS SUMMARY | 2024-08-03 01:13 | XMS_ITS | Encounter Summary ---
Author Organization [facility] Address [facility] [place] [address] [place] [address] Care Team Providers Care Pumper Hand Name Role Phone Unavailable Primary Care Provider Unavailabl e Encounter Details Date Type Department Care Team (Late st Contact Info) Description 04/24/2010 Abstract [facility] [address] [place] [address] Chuy Ponce MD [address] [place] [id number] Social History Tobacco Use Types Packs/Day Years [...]
--- OUTSIDE RECORDS SUMMARY | 2024-08-03 01:13 | XMS_ITS | Encounter Summary ---
Author Organization [facility] Address [facility]6 [facility] [place] [address] [place] [address] Care Team Providers Care Final Inspection Supervisor Name Role Phone Unavailable Primary Care Provider Unavailabl e Encounter Details Date Type Department Care Team (Late st Contact Info) Description 11/05/[address] [facility] [address] [place] [address] Humble Wills MD [address] [place] [address] Social History Tobacco Use Types [...]
--- OUTSIDE RECORDS SUMMARY | 2024-08-03 01:13 | XMS_ITS | Encounter Summary ---
Author Organization [facility] Address Critical access hospital6 [facility] [place] [address] [place] [address] Care Team Providers Care Pug Machine Operator Name Role Phone Unavailable Primary Care Provider Unavailabl e Encounter Details Date Type Department Care Team (Late st Contact Info) Description 09/26/2011 Abstract [facility] [address] [place], [place] [address] Ed Jasso MD [address] [place] [address] Social History Tobacco Use Types [...] Diagnoses Diagnosis Type I diabetes mellitus with ketoacidosis, uncontrolled (CMS/HCC [facility]) Type I (juvenile type) diabetes mellitus with ketoacidosis, uncontrolled documented in this encounter
--- OUTSIDE RECORDS SUMMARY | 2024-08-03 01:13 | XMS_ITS | Encounter Summary ---
Author Organization [facility] Address Critical access hospital6 [facility] [place] [address] [place] [address] Care Team Providers Care Hybrid Car Mechanic Name Role Phone Unavailable Primary Care Provider Unavailabl e Encounter Details Date Type Department Care Team (Late st Contact Info) Description 05/04/[address] [address] [place] [address] Karen Jalloh MD [address] [place] [address] Social History Tobacco Use Types [...]
--- OUTSIDE RECORDS SUMMARY | 2024-08-03 01:13 | XMS_ITS | Encounter Summary ---
Author Organization [facility] Address [facility]6 [facility] [place] [address] [place] [address] Care Team Providers Care Devulcanizer Head Name Role Phone Unavailable Primary Care Provider Unavailabl e Encounter Details Date Type Department Care Team (Late st Contact Info) Description 10/27/[address] [address] [place] [address] Karen Jalloh MD [address] [place] [address] Social History Tobacco Use Types [...] Diagnosis Type 2 or unspecified type diabetes mellitus (CMS/HCC HHS/HCC) documented in this encounter
--- OUTSIDE RECORDS SUMMARY | 2024-08-03 01:13 | XMS_ITS | Encounter Summary ---
Author Organization [facility] Address [facility] [place] [address] [place] [address] Care Team Providers Care Director Of Child Welfare Services Name Role Phone Unavailable Primary Care Provider Unavailabl e Encounter Details Date Type Department Care Team (Late st Contact Info) Description 11/06/2010 Abstract [facility] [address] [place] [address] Social History Tobacco Use Types Packs/Day Years [...] as of this encounter Visit Diagnoses Diagnosis Polyhydramnios, antepartum complication (HHS/HCC) Polyhydramnios, antepartum complication documented in this encounter
--- OUTSIDE RECORDS SUMMARY | 2024-08-03 01:13 | XMS_ITS | Encounter Summary ---
Author Organization [facility] Address [facility] [place] [address] [place] [address] Care Team Providers Care Business Machine Operator Name Role Phone Unavailable Primary Care Provider Unavailabl e Encounter Details Date Type Department Care Team (Late st Contact Info) Description 05/03/[address] [facility] [address] [place] [address] Karen Jalloh MD [address] [place] [address] Social History Tobacco Use Types [...]
--- OUTSIDE RECORDS SUMMARY | 2024-08-03 01:13 | XMS_ITS | Encounter Summary ---
Author Organization [facility] Address [facility]6 [place] [address] [place] [address] Care Team Providers Care Charge Poster Name Role Phone Unavailable Primary Care Provider Unavailabl e Encounter Details Date Type Department Care Team (Late st Contact Info) Description 05/18/[address] [address] [place] [address] Karen Jalloh MD [address] [place] [address] Social History Tobacco Use Types [...]
--- OUTSIDE RECORDS SUMMARY | 2024-08-03 01:13 | XMS_ITS | Encounter Summary ---
Author Organization [facility] Address [facility]6 [facility] [place] [address] [place] [address] Care Team Providers Care Templer Head Name Role Phone Unavailable Primary Care Provider Unavailabl e Encounter Details Date Type Department Care Team (Late st Contact Info) Description 01/10/2010 Abstract [facility] [address] [place] [address] Karen Jalloh MD [address] [place] [address] Social History Tobacco Use Types [...] of this encounter Visit Diagnoses Diagnosis Acute pyelonephritis without medullary necrosis Acute pyelonephritis without lesion of renal medullary necrosis documented in this encounter
--- OUTSIDE RECORDS SUMMARY | 2024-08-03 01:13 | XMS_ITS | Encounter Summary ---
Author Organization [facility] Address [facility]6 [facility] [place] [address] [place] [address] Care Team Providers Care Reconciliation Accountant Name Role Phone Unavailable Primary Care Provider Unavailabl e Encounter Details Date Type Department Care Team (Late st Contact Info) Description 05/11/[address] [facility] [address] [place] [address] Karen Jalloh MD [address] [place] [address] Social History Tobacco Use Types [...]
--- OUTSIDE RECORDS SUMMARY | 2024-08-03 01:13 | XMS_ITS | Encounter Summary ---
Author Organization [facility] Address [address] [facility] [place] [address] [place] [address] Care Team Providers Care Dock Coordinator Name Role Phone Unavailable Primary Care Provider Unavailabl e Encounter Details Date Type Department Care Team (Late st Contact Info) Description 11/15/[address] [facility] [address] [place] [address] Chuy Jimenez MD [address] [place] [address] Social History Tobacco Use Types Packs/Day Years [...]
--- OUTSIDE RECORDS SUMMARY | 2024-08-03 01:13 | XMS_ITS | Encounter Summary ---
Author Organization [facility] Address [facility]6 [facility] [place] [address] [place] [address] Care Team Providers Care Business Instructor Name Role Phone Unavailable Primary Care Provider Unavailabl e Encounter Details Date Type Department Care Team (Late st Contact Info) Description 05/28/[address] [facility] [address] [place] [address] Karen Jalloh MD [address] [place] [address] Social History Tobacco Use Types [...]
--- OUTSIDE RECORDS SUMMARY | 2024-08-03 01:13 | XMS_ITS | Encounter Summary ---
Author Organization [facility] Address [facility]6 [facility] [place] [address] [place] [address] Care Team Providers Care Baling Machine Tender Name Role Phone Unavailable Primary Care Provider Unavailabl e Encounter Details Date Type Department Care Team (Late st Contact Info) Description 05/21/[address] [facility] [address] [place] [address] Karen Jalloh MD [address] [place] [address] Social History Tobacco Use Types [...]
--- OUTSIDE RECORDS SUMMARY | 2024-08-03 01:13 | XMS_ITS | Encounter Summary ---
Author Organization [facility] Address [facility]6 [facility] [address] [place] [address] Care Team Providers Care Combine Operator Name Role Phone Unavailable Primary Care Provider Unavailabl e Encounter Details Date Type Department Care Team (Late st Contact Info) Description 05/07/[address] [facility] [address] [place] [address] Karen Jalloh MD [address] [place] [address] Social History Tobacco Use Types [...]
--- OUTSIDE RECORDS SUMMARY | 2024-08-03 01:13 | XMS_ITS | Encounter Summary ---
Author Organization [facility] Address [facility]6 [place] [address] [place] [address] Care Team Providers Care Store Keeper Name Role Phone Unavailable Primary Care Provider Unavailabl e Encounter Details Date Type Department Care Team (Late st Contact Info) Description 05/14/[address] [facility] [address] [place] [address] Karen Jalloh MD [address] [place] [address] Social History Tobacco Use Types [...]
--- OUTSIDE RECORDS SUMMARY | 2024-08-03 01:13 | XMS_ITS | Encounter Summary ---
Author Organization [facility] Address [facility]6 [facility] [place] [address] [place] [address] Care Team Providers Care Lead Manufacturing Technician Name Role Phone Unavailable Primary Care Provider Unavailabl e Encounter Details Date Type Department Care Team (Late st Contact Info) Description 04/20/[address] [address] [place] [address] Karen Jalloh MD [address] [place] [address] Social History Tobacco Use Types [...] this encounter Visit Diagnoses Diagnosis Other specified screening (HHS/HCC) documented in this encounter
--- OUTSIDE RECORDS SUMMARY | 2024-08-03 01:13 | XMS_ITS | Encounter Summary ---
Author Organization [facility] Address [facility]6 [facility] [place] [address] [place] [address] Care Team Providers Care Adjunct Physics Instructor Name Role Phone Unavailable Primary Care Provider Unavailabl e Encounter Details Date Type Department Care Team (Late st Contact Info) Description 11/03/[address] [facility] [address] [place] [address] Adolfo Logan MD [address] [place] [address] Social History Tobacco Use Types [...]
--- OUTSIDE RECORDS SUMMARY | 2024-08-03 01:13 | XMS_ITS | Encounter Summary ---
Author Organization [facility] Address [facility]6 [facility] [place] [address] [place] [address] Care Team Providers Care Size Marker Name Role Phone Unavailable Primary Care Provider Unavailabl e Encounter Details Date Type Department Care Team (Late st Contact Info) Description 11/14/[address] [facility] [address] [place] [address] Social History Tobacco Use Types Packs/Day Years [...] as of this encounter Visit Diagnoses Diagnosis Encounter for supervision of normal in multigravida ([facility]) documented in this encounter
--- OUTSIDE RECORDS SUMMARY | 2024-08-03 01:13 | XMS_ITS | Encounter Summary ---
Author Organization [facility] Address [facility]6 [facility] [place] [address] [place] [address] Care Team Providers Care Winding Rack Operator Name Role Phone Unavailable Primary Care Provider Unavailabl e Encounter Details Date Type Department Care Team (Late st Contact Info) Description 05/31/[address] [address] [place] [address] Karen Jalloh MD [address] [place] [address] Social History Tobacco Use Types [...]
--- OUTSIDE RECORDS SUMMARY | 2024-08-03 01:13 | XMS_ITS | Encounter Summary ---
Author Organization [facility] Address [facility]6 [facility] [place] [address] [place] [address] Care Team Providers Care Front End Driver Name Role Phone Unavailable Primary Care Provider Unavailabl e Encounter Details Date Type Department Care Team (Late st Contact Info) Description 06/17/[address] [facility] [address] [place] [address] , Carolee Duenas MD Social [...]
--- OUTSIDE RECORDS SUMMARY | 2024-08-03 01:13 | XMS_ITS | Encounter Summary ---
Author Organization [facility] Address [facility]6 [place] [address] [place] [address] Care Team Providers Care Traveling Electrician Name Role Phone Unavailable Primary Care Provider Unavailabl e Encounter Details Date Type Department Care Team (Late st Contact Info) Description 11/03/2008 Abstract [facility] [address] [place] [address] Social History Tobacco Use Types Packs/Day Years [...] as of this encounter Visit Diagnoses Diagnosis Conversion disorder documented in this encounter
--- OUTSIDE RECORDS SUMMARY | 2024-08-03 01:13 | XMS_ITS | Encounter Summary ---
Author Organization [facility] Address [facility]6 [facility] [place] [address] [place] [address] Care Team Providers Care Yarn Twister Name Role Phone Unavailable Primary Care Provider Unavailabl e Encounter Details Date Type Department Care Team (Late st Contact Info) Description 08/17/[address] [facility] [address] [place] [address] Social History Tobacco Use Types Packs/Day Years [...] Encounter for supervision of normal in multigravida ([facility]) documented in this encounter
--- OUTSIDE RECORDS SUMMARY | 2024-08-03 01:13 | XMS_ITS | Encounter Summary ---
Author Organization [facility] Address [facility]6 [facility] [place] [address] [place] [address] Care Team Providers Care Staff Development Manager Name Role Phone Unavailable Primary Care Provider Unavailabl e Encounter Details Date Type Department Care Team (Late st Contact Info) Description 02/09/2011 Abstract [facility] [address] [place] [address] Social History Tobacco Use Types Packs/Day Years [...] as of this encounter Visit Diagnoses Diagnosis Surveillance of previously prescribed intrauterine contraceptive device documented in this encounter
--- OUTSIDE RECORDS SUMMARY | 2024-08-03 01:13 | XMS_ITS | Encounter Summary ---
Author Organization [facility] Address [facility]6 [facility] [place] [address] [place] [address] Care Team Providers Care Radiological Defense Officer Name Role Phone Unavailable Primary Care Provider Unavailabl e Encounter Details Date Type Department Care Team (Late st Contact Info) Description 07/11/2010 Abstract [facility] [address] [place] [address] Chuy Ponce MD [address] [place] [address] Social History Tobacco Use Types Packs/Day Years [...] as of this encounter Visit Diagnoses Diagnosis Decreased movements affecting management of mother, antepartum (HHS/HCC) Decreased movements, affecting management of mother, antepartum documented in this encounter
--- OUTSIDE RECORDS SUMMARY | 2024-08-03 01:13 | XMS_ITS | Encounter Summary ---
Author Organization [facility] Address [address] [facility] [place] [place] [address] [place] [address] Care Team Providers Care Oncology Rep Name Role Phone Unavailable Primary Care Provider Unavailabl e Encounter Details Date Type Department Care Team (Late st Contact Info) Description 08/29/[address] [facility] [place] [address] [place] [address] Cierra Collier MD [address] [place] [address] Social History Tobacco Use Types [...]
--- OUTSIDE RECORDS SUMMARY | 2024-08-03 01:13 | XMS_ITS | Encounter Summary ---
Author Organization [facility] Address [facility]6 [facility] [place] [address] [place] [address] Care Team Providers Care Convex Grinder Name Role Phone Unavailable Primary Care Provider Unavailabl e Encounter Details Date Type Department Care Team (Late st Contact Info) Description 09/30/2008 Abstract [facility] [address] [place] [address] Chuy Ponce MD [address] [place] [address] Social History Tobacco Use Types Packs/Day Years [...] as of this encounter Visit Diagnoses Diagnosis Constipation Unspecified constipation documented in this encounter
--- OUTSIDE RECORDS SUMMARY | 2024-08-03 01:13 | XMS_ITS | Encounter Summary ---
Author Organization [facility] Address [facility] [place] [address] [place] [address] Care Team Providers Care Entrepreneurship Program Director Name Role Phone Unavailable Primary Care Provider Unavailabl e Encounter Details Date Type Department Care Team (Late st Contact Info) Description 11/20/2011 Abstract [facility] Intensive [facility] Unit - 4B [address] [place] [address] Izaiah Parker MD Social History Tobacco Use Types Packs/Day [...] I diabetes mellitus with ketoacidosis, uncontrolled (CMS/HCC HHS/HCC) Type I (juvenile type) diabetes mellitus with ketoacidosis, uncontrolled documented in this encounter
--- OUTSIDE RECORDS SUMMARY | 2024-08-03 01:13 | XMS_ITS | Encounter Summary ---
Author Organization [facility] Address [address] [facility] [place] [address] [place] [address] Care Team Providers Care Plastic Die Maker Apprentice Name Role Phone Unavailable Primary Care Provider Unavailabl e Encounter Details Date Type Department Care Team (Late st Contact Info) Description 05/09/2010 Abstract [facility] [address] [place], [place] [address] Sana Brantley MD [address] [place] [address] Social History Tobacco Use Types [...] Encounter for supervision of normal in multigravida ([facility]) documented in this encounter
--- OUTSIDE RECORDS SUMMARY | 2024-08-03 01:13 | XMS_ITS | Encounter Summary ---
Author Organization [facility] Address [facility] [place] [address] [place] [address] Care Team Providers Care Jewelry Engraver Name Role Phone Unavailable Primary Care Provider Unavailabl e Encounter Details Date Type Department Care Team (Late st Contact Info) Description 01/04/2012 Abstract [facility] [address] [place], [place] [address] Manuel Kwok MD [address] [place] [address] Social History Tobacco Use Types [...] of this encounter Visit Diagnoses Diagnosis Nausea without vomiting documented in this encounter
--- OUTSIDE RECORDS SUMMARY | 2024-08-03 01:13 | XMS_ITS | Encounter Summary ---
Author Organization [facility] Address [facility]6 [place] [address] [place] [address] Care Team Providers Care Manager Of Environmental Services Name Role Phone Unavailable Primary Care Provider Unavailabl e Encounter Details Date Type Department Care Team (Late st Contact Info) Description 11/02/[address] [place] [address] Karen Jalloh MD [address] [place] [address] Social History Tobacco Use Types Packs/Day Years [...]
--- OUTSIDE RECORDS SUMMARY | 2024-08-03 01:13 | XMS_ITS | Encounter Summary ---
Author Organization [facility] Address [facility]6 [facility] [place] [address] [place] [address] Care Team Providers Care Health Underwriter Name Role Phone Unavailable Primary Care Provider Unavailabl e Encounter Details Date Type Department Care Team (Late st Contact Info) Description 05/04/[address] [facility] [address] [place] [address] Karen Jalloh MD [address] [place] [address] Social History Tobacco Use Types [...]
--- OUTSIDE RECORDS SUMMARY | 2024-08-03 01:14 | XMS_ITS | Encounter Summary ---
Author Organization [facility] Address [facility]6 [place] [address] [place] [address] Care Team Providers Care Lead Java J2Ee Developer Name Role Phone Unavailable Primary Care Provider Unavailabl e Encounter Details Date Type Department Care Team (Late st Contact Info) Description 10/11/2005 Abstract [facility] [address] [place] [address] Manuel Kwok MD [address] [place] [address] Social History Tobacco Use Types [...]
--- OUTSIDE RECORDS SUMMARY | 2024-08-03 01:14 | XMS_ITS | Encounter Summary ---
Author Organization [facility] Address [facility]6 [facility] [place] [address] [place] [address] Care Team Providers Care Compressed Gas Tester Name Role Phone Unavailable Primary Care Provider Unavailabl e Encounter Details Date Type Department Care Team (Late st Contact Info) Description 01/31/1990 Abstract [facility] [address] [place] [address] , Generic Conversion, Social History [...]
--- OUTSIDE RECORDS SUMMARY | 2024-08-03 01:14 | XMS_ITS | Encounter Summary ---
Author Organization [facility] Address [facility]6 [place] [address] [place] [address] Care Team Providers Care Tag Meter Operator Name Role Phone Unavailable Primary Care Provider Unavailabl e Encounter Details Date Type Department Care Team (Late st Contact Info) Description 12/27/2005 Abstract [facility] [address] [place] [address] Manuel Kwok MD [address] [place] [address] Social History Tobacco Use Types [...]
--- OUTSIDE RECORDS SUMMARY | 2024-08-03 01:14 | XMS_ITS | Encounter Summary ---
Author Organization [facility] Address [facility]6 [facility] [place] [address] [place] [address] Care Team Providers Care Director Of Women'S Services Name Role Phone Unavailable Primary Care Provider Unavailabl e Encounter Details Date Type Department Care Team (Late st Contact Info) Description 04/16/[address] [facility] [address] [place] [address] Karen Jalloh MD [address] [place] [address] Social History Tobacco Use Types [...]
--- OUTSIDE RECORDS SUMMARY | 2024-08-03 01:14 | XMS_ITS | Encounter Summary ---
Author Organization [facility] Address [facility] [place] [address] [place] [address] Care Team Providers Care Quality Auditor Name Role Phone Unavailable Primary Care Provider Unavailabl e Encounter Details Date Type Department Care Team (Late st Contact Info) Description 12/20/2006 Abstract [facility] [address] [place] [address] Manuel Kwok MD [address] [place] [address] Social History Tobacco Use Types [...]
--- OUTSIDE RECORDS SUMMARY | 2024-08-03 01:14 | XMS_ITS | Encounter Summary ---
Author Organization [facility] Address [facility] [place] [address] [place] [address] Care Team Providers Care Whittling Room Operator Name Role Phone Unavailable Primary Care Provider Unavailabl e Encounter Details Date Type Department Care Team (Late st Contact Info) Description 01/11/2006 Abstract [facility] [address] [place] [address] Manuel Kwok MD [address] [place] [address] Social History Tobacco Use Types [...]
--- OUTSIDE RECORDS SUMMARY | 2024-08-03 01:14 | XMS_ITS | Encounter Summary ---
Author Organization [facility] Address [facility]6 [facility] [place] [address] [place] [address] Care Team Providers Care Corn Press Operator Name Role Phone Unavailable Primary Care Provider Unavailabl e Encounter Details Date Type Department Care Team (Late st Contact Info) Description 10/01/2007 Abstract [facility] [address] [place] [address] Chuy Ponce MD [address] [place] [id number] Social History Tobacco Use Types Packs/Day Years [...]
--- OUTSIDE RECORDS SUMMARY | 2024-08-03 01:14 | XMS_ITS | Encounter Summary ---
Author Organization [facility] Address [facility]6 [facility] [place] [address] [place] [address] Care Team Providers Care Long Term Care Pharmacist Name Role Phone Unavailable Primary Care Provider Unavailabl e Encounter Details Date Type Department Care Team (Late st Contact Info) Description 04/26/[address] [facility] [address] [place] [address] Manuel Kowk MD [address] [place] [address] Social History Tobacco Use Types [...]
--- OUTSIDE RECORDS SUMMARY | 2024-08-03 01:14 | XMS_ITS | Encounter Summary ---
Author Organization [facility] Address [facility]6 [facility] [place] [address] [place] [address] Care Team Providers Care Patient Safety Tech Name Role Phone Unavailable Primary Care Provider Unavailabl e Encounter Details Date Type Department Care Team (Late st Contact Info) Description 09/11/2005 Abstract [facility] [address] [place] [address] Manuel Kwok MD [address] [place] [address] Social History Tobacco Use Types [...]
--- OUTSIDE RECORDS SUMMARY | 2024-08-03 01:14 | XMS_ITS | Encounter Summary ---
Author Organization [facility] Address [facility]6 [place] [address] [place] [address] Care Team Providers Care Truant Officer Name Role Phone Unavailable Primary Care Provider Unavailabl e Encounter Details Date Type Department Care Team (Late st Contact Info) Description 11/21/2007 Abstract [facility] [address] [place] [address] Karen Jalloh MD [address] [place] [address] Social History Tobacco Use Types [...]
--- OUTSIDE RECORDS SUMMARY | 2024-08-03 01:14 | XMS_ITS | Encounter Summary ---
Author Organization [facility] Address [facility]6 [facility] [place] [address] [place] [address] Care Team Providers Care Rn Document Improvement Specialist Name Role Phone Unavailable Primary Care Provider Unavailabl e Encounter Details Date Type Department Care Team (Late st Contact Info) Description 01/21/2002 Abstract [facility] [address] [place] [address] , Generic Conversion, Social History [...]
--- OUTSIDE RECORDS SUMMARY | 2024-08-03 01:14 | XMS_ITS | Encounter Summary ---
Author Organization [facility] Address [facility]6 [facility] [address] [place] [address] Care Team Providers Care Cotton Weigher Name Role Phone Unavailable Primary Care Provider Unavailabl e Encounter Details Date Type Department Care Team (Late st Contact Info) Description 05/02/[address] [facility] [address] [place] [address] Karen Jalloh MD [address] [place] [address] Social History Tobacco Use Types [...]
--- OUTSIDE RECORDS SUMMARY | 2024-08-03 01:14 | XMS_ITS | Encounter Summary ---
Author Organization [facility] Address [facility] [place] [address] [place] [address] Care Team Providers Care Communication Equipment Mechanic Name Role Phone Unavailable Primary Care Provider Unavailabl e Encounter Details Date Type Department Care Team (Late st Contact Info) Description 11/10/1995 Abstract [facility] [address] [place] [address] , Generic Conversion, Social History [...]
--- OUTSIDE RECORDS SUMMARY | 2024-08-03 01:14 | XMS_ITS | Encounter Summary ---
Author Organization [facility] Address [facility]6 [facility] [place] [address] [place] [address] Care Team Providers Care Casework Supervisor Name Role Phone Unavailable Primary Care Provider Unavailabl e Encounter Details Date Type Department Care Team (Late st Contact Info) Description 10/08/2005 Abstract [facility] [address] [place] [address] Social History Tobacco Use Types Packs/Day Years [...]
--- OUTSIDE RECORDS SUMMARY | 2024-08-03 01:14 | XMS_ITS | Encounter Summary ---
Author Organization [facility] Address [facility] [place] [address] [place] [address] Care Team Providers Care Ammonia Solution Preparer Name Role Phone Unavailable Primary Care Provider Unavailabl e Encounter Details Date Type Department Care Team (Late st Contact Info) Description 01/26/2003 Abstract [facility] [address] [place] [address] , Generic Conversion, Social History [...]
--- OUTSIDE RECORDS SUMMARY | 2024-08-03 01:14 | XMS_ITS | Encounter Summary ---
Author Organization [facility] Address [facility]6 [place] [address] [place] [address] Care Team Providers Care Cotton Converter Name Role Phone Unavailable Primary Care Provider Unavailabl e Encounter Details Date Type Department Care Team (Late st Contact Info) Description 12/27/2005 Abstract [facility] [address] [place] [address] Jose R Ramirez MD [address] [place] [address] Social History Tobacco Use Types Packs/Day Years [...]
--- OUTSIDE RECORDS SUMMARY | 2024-08-03 01:14 | XMS_ITS | Encounter Summary ---
Author Organization [facility] Address [facility] [place] [address] [place] [address] Care Team Providers Care Carpet Winder Name Role Phone Unavailable Primary Care Provider Unavailabl e Encounter Details Date Type Department Care Team (Late st Contact Info) Description 10/04/1995 Abstract [facility] [address] [place] [address] , Generic Conversion, Social History [...]
--- OUTSIDE RECORDS SUMMARY | 2024-08-03 01:14 | XMS_ITS | Encounter Summary ---
Author Organization [facility] Address [facility]6 [facility] [place] [address] [place] [address] Care Team Providers Care Electrician Assistant Name Role Phone Unavailable Primary Care Provider Unavailabl e Encounter Details Date Type Department Care Team (Late st Contact Info) Description 08/16/1998 Abstract [facility] [address] [place] [address] , Generic Conversion, Social History [...]
--- OUTSIDE RECORDS SUMMARY | 2024-08-03 01:14 | XMS_ITS | Encounter Summary ---
Author Organization [facility] Address [facility]6 [place] [address] [place] [address] Care Team Providers Care Cane Stripper Name Role Phone Unavailable Primary Care Provider Unavailabl e Encounter Details Date Type Department Care Team (Late st Contact Info) Description 10/05/1995 Abstract [facility] [address] [place] [address] , Generic Conversion, Social History [...]
--- OUTSIDE RECORDS SUMMARY | 2024-08-03 01:14 | XMS_ITS | Encounter Summary ---
Author Organization [facility] Address [facility] [place] [address] [place] [address] Care Team Providers Care Movie Star Name Role Phone Unavailable Primary Care Provider Unavailabl e Encounter Details Date Type Department Care Team (Late st Contact Info) Description 01/20/2002 Abstract [facility] [address] [place] [address] , Generic Conversion, Social History [...]
--- OUTSIDE RECORDS SUMMARY | 2024-08-03 01:14 | XMS_ITS | Encounter Summary ---
Author Organization [facility] Address [address] [place] [address] [place] [address] Care Team Providers Care Flash Drier Operator Name Role Phone Unavailable Primary Care Provider Unavailabl e Encounter Details Date Type Department Care Team (Late st Contact Info) Description 01/06/2008 Abstract [facility] [address] [facility] [place] [address] Carlos Rodriguez, DO Social History Tobacco Use Types Packs/Day Years [...]
--- OUTSIDE RECORDS SUMMARY | 2024-08-03 01:14 | XMS_ITS | Encounter Summary ---
Author Organization [facility] Address [facility]6 [facility] [address] [place] [address] Care Team Providers Care Petroleum Geologist Name Role Phone Unavailable Primary Care Provider Unavailabl e Encounter Details Date Type Department Care Team (Late st Contact Info) Description 04/30/[address] [facility] [address] [place] [address] Karen Jalloh MD [address] [place] [address] Social History Tobacco Use Types [...]
--- OUTSIDE RECORDS SUMMARY | 2024-08-03 01:14 | XMS_ITS | Encounter Summary ---
Author Organization [facility] Address [facility]6 [place] [address] [place] [address] Care Team Providers Care Electronic Equipment Set Up Operator Name Role Phone Unavailable Primary Care Provider Unavailabl e Encounter Details Date Type Department Care Team (Late st Contact Info) Description 12/21/2006 Abstract [facility] [address] [address] Social History Tobacco Use Types Packs/Day Years [...]
--- OUTSIDE RECORDS SUMMARY | 2024-08-03 01:14 | XMS_ITS | Encounter Summary ---
Author Organization [facility] Address [facility]6 [place] [address] [place] [address] Care Team Providers Care Truck Driver Helper Name Role Phone Unavailable Primary Care Provider Unavailabl e Encounter Details Date Type Department Care Team (Late st Contact Info) Description 10/09/1999 Abstract [facility] [address] [place] [address] , Generic Conversion, Social History [...]
--- OUTSIDE RECORDS SUMMARY | 2024-08-03 01:14 | XMS_ITS | Encounter Summary ---
Author Organization [facility] Address [facility] [place] [address] [place] [address] Care Team Providers Care Wedger Name Role Phone Unavailable Primary Care Provider Unavailabl e Encounter Details Date Type Department Care Team (Late st Contact Info) Description 10/03/1997 Abstract [facility] [address] [place] [address] , Generic Conversion, Social History [...]
--- OUTSIDE RECORDS SUMMARY | 2024-08-03 01:14 | XMS_ITS | Encounter Summary ---
Author Organization [facility] Address [facility] [place] [address] [place] [address] Care Team Providers Care Electrical And Radio Mock Up Mechanic Name Role Phone Unavailable Primary Care Provider Unavailabl e Encounter Details Date Type Department Care Team (Late st Contact Info) Description 01/26/2003 Abstract [facility] [address] [place] [address] , Generic Conversion, Social History [...]
--- OUTSIDE RECORDS SUMMARY | 2024-08-03 01:14 | XMS_ITS | Encounter Summary ---
Author Organization [facility] Address [facility]6 [facility] [place] [address] [place] [address] Care Team Providers Care Male Model Name Role Phone Unavailable Primary Care Provider Unavailabl e Encounter Details Date Type Department Care Team (Late st Contact Info) Description 05/10/2004 Abstract [facility] [address] [place] [address] Manuel Kwok MD [address] [place] [address] Social History Tobacco Use Types [...]
--- OUTSIDE RECORDS SUMMARY | 2024-08-03 01:14 | XMS_ITS | Encounter Summary ---
Author Organization [facility] Address [facility]6 [facility] [place] [address] [place] [address] Care Team Providers Care Pull Over Name Role Phone Unavailable Primary Care Provider Unavailabl e Encounter Details Date Type Department Care Team (Late st Contact Info) Description 02/13/2002 Abstract [facility] [address] [place] [address] , Generic Conversion, Social History [...]
--- OUTSIDE RECORDS SUMMARY | 2024-08-03 01:14 | XMS_ITS | Encounter Summary ---
Author Organization [facility] Address [facility] [place] [address] [place] [address] Care Team Providers Care Foster Parent Name Role Phone Unavailable Primary Care Provider Unavailabl e Encounter Details Date Type Department Care Team (Late st Contact Info) Description 03/25/[address] [facility] [address] [place] [address] Karen Jalloh MD [address] [place] [address] Social History Tobacco Use Types [...]
--- OUTSIDE RECORDS SUMMARY | 2024-08-03 01:14 | XMS_ITS | Encounter Summary ---
Author Organization [facility] Address [facility]6 [facility] [place] [address] [place] [address] Care Team Providers Care Facility Manager Name Role Phone Unavailable Primary Care Provider Unavailabl e Encounter Details Date Type Department Care Team (Late st Contact Info) Description 10/17/[address] [facility] [address] [place] [address] Manuel Kwok MD [address] [place] [address] Social History Tobacco Use Types [...]
--- OUTSIDE RECORDS SUMMARY | 2024-08-03 01:14 | XMS_ITS | Encounter Summary ---
Author Organization [facility] Address [facility] [place] [address] [place] [address] Care Team Providers Care Software Build Engineer Name Role Phone Unavailable Primary Care Provider Unavailabl e Encounter Details Date Type Department Care Team (Late st Contact Info) Description 02/23/1997 Abstract [facility] [address] [place] [address] , Generic Conversion, Social History [...]
--- OUTSIDE RECORDS SUMMARY | 2024-08-03 01:14 | XMS_ITS | Encounter Summary ---
Author Organization [facility] Address [facility] [place] [address] [place] [address] Care Team Providers Care Percussion Tuner Name Role Phone Unavailable Primary Care Provider Unavailabl e Encounter Details Date Type Department Care Team (Late st Contact Info) Description 02/14/1990 Abstract [facility] [address] [place] [address] , Generic Conversion, Social History [...]
--- OUTSIDE RECORDS SUMMARY | 2024-08-03 01:14 | XMS_ITS | Encounter Summary ---
Author Organization [facility] Address [address] [facility] [address] [place] [address] Care Team Providers Care Ply Splicer Name Role Phone Unavailable Primary Care Provider Unavailabl e Encounter Details Date Type Department Care Team (Late st Contact Info) Description 11/25/2007 Abstract [facility] [address] [place] [address] Mireya Cruz MD [address] [place] [address] Social History Tobacco Use Types [...]
--- OUTSIDE RECORDS SUMMARY | 2024-08-03 02:06 | XMS_ITS | Data Portability ---
Author Organization [facility] Address [address] [place] [address] Assessment No assessment recorded. Plan of Treatment Reminders Order Date Submit Date Provider Last Modified By Organization Details Last Modified Time Details Appointments None record ed. Lab None record ed. Referral None record ed. Procedures None record ed. Surgeries None record ed. Imaging None record ed. Medication Orders None record ed. Patient TargetsNo targets recorded. Patient InstructionsNo instructions recorded. Reason for Referral None Reported. Results Created Date Observation Date Name Description Value Unit Range Abnormal Flag Note LastModifiedBy Organization Detail LastModifiedTime Result Notes None recorded. Problems Name Problem SNOMED Code Status Onset Date Resolution Date Notes Provider Name and Address Organization Details Recorded Time Acute vaginitis 97777175 Active 2019 Vulvovagin itis;Recor ded Elsewhere: No Locatio n: [facility] rce: EHR Chroni c: N Practice ID: [id number] Billa ble Time: 03:30:00 PM Not Available [facility] 0 17:45:04 Bleeding 129609192 Active 2018 Abnormal uterine and vaginal bleeding, unspecifie d;Recorded Elsewhere: No Locatio n: [facility] Cecile rce: EHR Chroni c: N Practice ID: [id number] Billa ble Time: 01:00:00 PM Not Available [facility] 0 17:45:04 Pelvic and perineal pain 884830470 Active 2018 Pelvic and perineal pain;Pract ice ID: 0001 Not Available [facility] 0 17:45:04 test negative 602586421 Active 2018 Encounter for test, result negative;P ractice ID: 0001 Not Available [facility] 0 17:45:04 Finding of menstrual bleeding Active 2018 Excessive and frequent menstruati on with regular cycle;Prac kylee ID: 0001 Not Available [facility] 0 17:45:04 Steriliza tion procedure Active 2019 Encounter for sterilizat ion;Practi ce ID: 0001 Not Available [facility] 0 17:45:05 Lesion of ovary Active 2019 Other ovarian cyst, right side;Pract ice ID: 0001 Not Available [facility] 0 17:45:[address] Concept Active 2019 Oth complicati ons of procedures , NEC, init;Pract ice ID: 0001 Not Available [facility] 0 17:45:05 Inflammat ory disease of the uterus 73413456 Active 2019 Inflammato ry disease of uterus, unspecifie d;Practice ID: 0001 Not Available [facility] 0 17:45:05 Urinary tract infectiou s disease 14003415 Active 2019 Urinary tract infection, site not specified; Practice ID: 0001 Not Available [facility] 0 17:45:[address] Concept Active 2019 Oth complicati ons of procedures , NEC, subs;Pract ice ID: 0001 Not Available [facility] 0 17:45:05 Sexual function painful Active 2019 Dyspareuni a;Recorded Elsewhere: No Locatio n: [facility] Cec[facility] rce: EHR Chroni c: N Practice ID: 0001 Billa ble Time: 03:30:00 PM Not Available [facility] 0 17:45:07 Notes:Infection following a procedure, unspecified, init Practice ID: 0001 Problem Notes None recorded. Procedures Surgical History Date Name Laterality Status Provider Name and Address Organization Details Recorded Time 020 TOTAL LAPAROSCOPIC HYSTERECTOMY (SURG) completed Rufina Luz [facility] 12/23/2019 14:32:37 013 cholecystectomy completed Elena Cross [facility] 12/16/2019 13:36:17 011 section completed Elena TRINH KIRAN SAHU [facility] 12/16/2019 13:36:52 Imaging Results None recorded. Procedure Notes None recorded. Medical Equipment None Reported. Allergies Allergen ID Allergen Name Allergen Category Reaction Reaction Severity Criticality Documentation Date Start Date Code Code System Note Provider Name and Address Organization Details Recorded Time 99687 latex environme nt,medica tion Not available Not available Not available 07/09/2020 51275 91 RxNorm Comme nt: Locat ion: Kiran sahu [facility]; Not Available [facility] 0 14:20:58 Medications Name Sig Start Date Stop Date Status Note LastModified by Organization Details LastModified Time amoxicill in 500 mg capsule 01/01 completed Not Available Not Available Not Available atorvasta tin 40 mg tablet active Not Available Not Available Not Available prednison e 10 mg tablet active Not Available Not Available Not Available clindamyc in HCl 300 mg capsule 01/01 completed Not Available Not Available Not Available azithromy jerson 250 mg tablet 01/01 completed Not Available Not Available Not Available IBU 800 mg tablet 01/01 completed Not Available Not Available Not Available fluconazo le 150 mg tablet take 1 tablet by oral route once every other week 01/01 completed Not Available Not Available Not Available hydrocodo ne 5 mg-acetam inophen 325 mg tablet 01/01 completed Not Available Not Available Not Available metronida zole 0.75 % (37.5 mg/5 gram) vaginal gel insert 1 applicat orful by vaginal route every day at bedtime 01/04 completed Not Available Not Available Not Available estradiol 0.1 mg/24 hr semiweekl y transderm al patch APPLY 1 PATCH TWICE A WEEK 2019 active Not Available Not Available Not Avai lable metronida zole 500 mg tablet take 1 tablet by oral route every 12 hours 01/04 completed Not Available Not Available Not Available ciproflox acin 500 mg tablet 01/01 completed Not Available Not Available Not Available tramadol 50 mg tablet active Not Available Not Available Not Available ondansetr on 8 mg disintegr ating tablet Place 1 tablet every 8 hours by translin gual route for 2 days. active Not Available Not Available No t Available levothyro xine 25 mcg tablet 01/04 completed Not Available Not Available Not Available citalopra m 20 mg tablet 01/01 completed Not Available Not Available Not Available estradiol 1 mg tablet Take 1 tablet every day by oral route. active Not Available Not Available No t Available levothyro xine 50 mcg tablet active Not Available Not Available Not Available promethaz ine 25 mg tablet active Not Available Not Available Not Available clindamyc in 2 % vaginal cream insert 1 applicat orful by vaginal route every day for 7 days at bedtime 01/01 completed Not Available Not Available Not Available bisacodyl 5 mg tablet,de layed release 01/01 completed Not Available Not Available Not Available levofloxa jerson 500 mg tablet take 1 tablet by oral route every 24 hours 01/01 completed Not Available Not Available Not Available lisinopri l 2.5 mg tablet active Not Available Not Available Not Available doxycycli ne hyclate 100 mg tablet take 1 tablet by oral route every day 01/01 completed Not Available Not Available Not Available Allergy Relief (loratadi ne) 10 mg tablet 01/01 completed Not Available Not Available Not Available Senna Plus 8.6 mg-50 mg tablet active Not Available Not Available Not Available Protonix active Not Available Not Avai lable Not Available ProAir HFA 90 mcg/actua tion aerosol inhaler active Not Available Not Available Not Available Protonix 40 mg granules delayed-r elease packet take 1 packet by oral route every day mixed in 1 teaspoon ful of applesau ce or apple juice active Prescrib ed Elsewher e: Yes Loca tion: [facility] odify By: anitra Encounte r DateTime : 12/05/19 19 01:00:00 PM Not Available Not Available Not Available ClearLax 17 gram/dose oral powder 01/01 completed Not Available Not Available Not Available Tirosint 13 mcg capsule take 1 capsule by oral route every day 09/02 completed Prescrib ed Elsewher e: Yes Loca tion: [facility] odify By: anitra Encounte r DateTime : 12/05/19 19 01:00:00 PM Not Available Not Available Not Available Dexcom G4 Transmitt er device active Not Available Not Available No t Available Snap Insulin Pump Controlle r active Not Available Not Available Not Available Admelog U-100 Insulin lispro 100 unit/mL subcutane ous solution active Not Available Not Available Not Available OneTouch Ultra Blue Test Strip active Not Available Not Available Not Available Dexcom G6 Sensor device active Not Available Not Available Not Available Dexcom G6 Reed Press Feeder active Not Available Not Available Not Available Vitals Date Recorded Body height Body mass index (BMI) Body weight Systolic blood pressure Diastolic blood pressure Provider Name and Address Organization Details Last Updated DateTime 12/16/2019 165.1 cm 19.1 kg/m2 51381.12 g 99 mm[Hg] 64 mm[Hg] [facility] 0 11:42:35 Date Recorded Body height Body mass index (BMI) Body weight Systolic blood pressure Diastolic blood pressure Provider Name and Address Organization Details Last Updated DateTime 01/02/2020 165.1 cm 19 kg/m2 10735.53 g 106 mm[Hg] 72 mm[Hg] Anyi [facility] 0 12:19:02 Date Recorded Body height Body mass index (BMI) Body weight Systolic blood pressure Diastolic blood pressure Provider Name and Address Organization Details Last Updated DateTime 01/05/2020 165.1 cm 19.3 kg/m2 42350.71 g 106 mm[Hg] 73 mm[Hg] [facility] 0 13:00:35 Social History None recorded. Functional Status None recorded. Mental Status None recorded. Family History Relationship Description Onset Age of this Age Resolved Age Notes LastModified by Organization Details LastModified Time Mother Heart disease [email or web address] Not available 2019 13:38:41 Mother Diabetes mellitus [email or web address] Not available 2019 13:38:49 Mother Hypertensive disorder [email or web address] Not available 2019 13:38:57 Mother Hypercholest erolemia smcaley Not available 2019 13:40:03 Maternal Grandmother Carcinoma of uterine cervix, invasive smcaley Not available 2019 13:39:11 Maternal Grandmother Heart disease smcaley Not available 2019 13:39:22 Maternal Grandmother Diabetes mellitus smcaley Not available 2019 13:39:35 Maternal Grandmother Hypertensive disorder smcaley Not available 2019 13:39:51 Maternal Grandfather Diabetes mellitus smcaley Not available 2019 13:40:14 Maternal Grandfather Hypertensive disorder smcaley Not available 2019 13:40:37 Brother Asthma smcaley Not available 0 12/16/2019 13:40:46 Notes:Brother: Asthma Matern al grandfather: Diabetes mellitus, Hypertension Maternal grandmother: Diabetes mellitus, Hypertension, Heart disease, Cancer, cervical Mother: Heart disease, Hypertension, high cholesterol, Diabetes mellitus Medical History Condition Response Diabetes Y Thyroid Problems Y Gynecological HistoryNo gynecological history recorded. Obstetrics History GPAL:G 0 P 0 0 0 0 Past Encounters Encounter ID Performer Location Encounter Start Date Encounter Closed Date Diagnosis/Indication Diagnosis SNOMED-CT Code Diagnosis ICD10 Code Diagnosis Note [id number] Zeb Worley MD [place] [address] [address] 12/16/2019 11:30:01 12/16/2019 15:48:11 Menorrhagia 753649281 N92.0 Chronic pe lvic pain of female 026347129 R10.2 Dysmenorrhea 369063226 N 94.6 This patient is a 29-year-ol d female with severe menorrhagi a, dysmenorrh ea, pelvic pain and dyspareuni a. We have agreed to perform total laparoscop ic hysterecto my and bilateral salpingo-o ophorectom y. She understand s the risk, benefits, and alternativ es. She is completed the informed consent process and is ready to proceed. [id number] Zeb Worley MD [place] [address] [address] 01/02/2020 12:03:07 01/05/2020 20:37:39 Postoperative visit 510427268 Z09 This patient is a 29-year-ol d female presents forpostopf ollow-up. She is 1weekposto pfrom aTLH.It was aTLHBSO. She is recovering normally. She feels great.She is having minimalmen opausal symptoms. She is receiving estrogen replacemen t therapy. e will follow-up as needed.She has no signsor symptoms ofDKA. [id number] Zeb Worley MD [place] [address] [address] 01/05/2020 12:35:13 01/06/2020 15:29:36 Postoperative visit 014624174 Z09 This patient is a 29-year-ol d female presents forpostopf ollow-up. She is 1weekposto pfrom aTL.It was aTLHBSO. She is recovering normally. She feels great.She is having minimalmen opausal symptoms. She is receiving estrogen replacemen t therapy.Camelia villatoro will follow-up as needed.She has no signsor symptoms ofDKA. Health Concerns Section Related Observation LastModified by Organization Detai ls LastModified Time None Recorded Concern Status LastModified by Organization Details LastModified Time None Recorded Advance Directives Directive None Recorded Payers Encounter Date Sequence Insurance Name Policy Number Policy Cantu Covered Member ID Cantu Member ID Guarantor Name 12/16/2019 1 [facility] PRIOR TO 01/20/2021 (MEDICAID REPLACEMENT - HMO) Steph Camacho [id number] 01/02/2020 1 [facility] PRIOR TO 01/20/2021 (MEDICAID REPLACEMENT - HMO) Steph Camacho [id number] 01/05/2020 1 [facility] PRIOR TO 01/20/2021 (MEDICAID REPLACEMENT - HMO) Steph Camacho [id number] Notes Date Note Type Note Provider Name and Address Organization Details Recorded Time 12/16/2019 text/html This patient is a 29-year-old female with severe menorrhagia dysmenorrhea and pelvic pain. It is longstanding and the failed other, multiple treatment trials. We have agreed to perform. Total laparoscopic hysterectomy and bilateral salpingo-oophorect екатерина. The patient understands the procedure. The procedure was described to the patient in great detail. the patient also understands the risks. The risks were also explained in detail. She understands that injuries May occur during surgery. She understands these injuries can result in hospitalization, more surgery, and severe illness. She understands there is risk of hemorrhage and infection. Zeb Worley MD [address], [place], [address], [facility] 12/16/2019 14:37:13 01/02/2020 text/html Patient is a 29-year-old female presents for postop follow-up. She is one-week postop from a total laparoscopic hysterectomy and bilateral salpingo-oophorect екатерина. She is recovering normally. No evidence of DKA. Her blood sugars are well controlled Zeb Worley MD [address], [place], [address], [facility] 01/05/2020 20:37:38 01/05/2020 text/html This patient is a 29-year-old female presents for postop follow-up. She is 1 week postop from a H. It was a [facility] BSO. She is recovering normally. She feels great. She is having minimal menopausal symptoms. She is receiving estrogen replacement therapy. She will follow-up as needed. She has no signs or symptoms of DKA. Zeb Worley MD [address], [place], [address], [facility] 01/05/2020 17:45:19 OBGyn Episode Ob Episode Information Episode Created Date Number of Fetuses Patient Bloodtype Patient rh Status Prepregnancy Weight lbs Domestic Partner Domestic Partner Phone Father Name Office Cleaner Status 12/16/19 20 1 CLOSED Fetus Data First Name Last Name Admitted to NICU Weight (g) Sex Living Outcome Pediatric Complications Fetus ID Race Codes Race Delivery Type Full Term 1720 Primary Parish Calculation Initial Parish Date Initial Exam Date Initial Exam Provider Initial Ultrasound Date Last Menstrual Period Date Ultra Sound Weeks Gestation 0 Eighteen To Twenty Week Parish Update Ultra Sound Date Fundal Height At Umbil Quickening Date Ultra Sound Latest Weeks Gestation Final Parish Confirmed By Final Parish Confirmed Date Final Parish Date Ultra Sound Latest Days Gestation 0 0 Menstrual History Last Menstrual Date Menses Monthly On Bcp Conception Prior Menses Frequency Hcg Plus Date Menarche Onset Age Delivery Information Delivery Date Delivery Type Labor Anesthesia Weeks Gestation Incision Type Labor Labor Length Hrs Delivered By Post Complications Tubal Sterilization Discharge Date Comments 1 Discharge Information Feeding Method Contraceptive Method Maternal HG B and HCT Levels
--- OUTSIDE RECORDS SUMMARY | 2024-08-03 02:08 | XMS_ITS | Encounter Summary ---
Author Organization [facility] Address [facility] [place], [place] [id number] [place] [id number] Care Team Providers Care Electromechanical Technician Name Role Phone Isaias Grier MD Primary Care Provider [phone]- [phone] Encounter Details Date Type Department Care Team [...] documented as of this encounter Care Teams Electromechanical Technician Relationship Specialty Start Date End Date Isaias Grier MD [address] [place] [phone] PCP - General FAMILY PRACTICE 01/29/19 03/18/21 documented as of this encounter
--- OUTSIDE RECORDS SUMMARY | 2024-08-03 02:08 | XMS_ITS | Encounter Summary ---
Author Organization [facility] Address [facility] [facility] [place] [address] [place] [address] Care Team Providers Care Real Time Trader Name Role Phone Renee Hernandez MD Primary Care Provider [phone] Encounter Details Date Type Department Care Team (Late st Contact Info) Description 07/29/2021 11:25 AM PERSONAL BANKING ADVISOR - 07/29/2021 11:59 PM PERSONAL BANKING ADVISOR Hospital Encounter [facility] [address] [place], [place] [id number] Renee Hernandez MD [address] [facility] [place] [phone] Discharge Disposition: Home or Self Care (Routine [...] COVID-19? No / Unsure 07/29/2021 11:22 AM PERSONAL BANKING ADVISOR documented as of this encounter Medications at [...] COMPREHENSIVE METABOLIC PANEL STAT 07/29/2021 11:47 AM PERSONAL BANKING ADVISOR Abdominal pain, acute LACTIC ACID STAT 07/29/2021 11:47 AM PERSONAL BANKING ADVISOR Abdominal pain, acute CBC W/DIFF AUTOMATED STAT 07/29/2021 11:47 AM PERSONAL BANKING ADVISOR Abdominal pain, acute AMYLASE STAT 07/29/2021 11:47 AM PERSONAL BANKING ADVISOR Abdominal pain, acute LIPASE STAT 07/29/2021 11:47 AM PERSONAL BANKING ADVISOR Abdominal pain, acute documented in this encounter Results * AMYLASE (07/29/2021 11:47 AM PERSONAL BANKING ADVISOR) AMYLASE S/P/B 49 25 - 115 UNITS/L 07/29/2021 12:08 PM PERSONAL BANKING ADVISOR [facility] 07/29/2021 11:4 7 AM PERSONAL BANKING ADVISOR us Renee Hernandez MD LABORATORY Final Result [facility] [address] [place] [address], * (ABNORMAL) LIPASE (07/29/2021 11:47 AM PERSONAL BANKING ADVISOR) LIPASE 52(L) 73 - 393 UNITS/L 07/29/2021 12:08 PM PERSONAL BANKING ADVISOR [facility] 07/29/2021 11:4 7 AM PERSONAL BANKING ADVISOR us Renee Hernandez MD LABORATORY Final Result Performing Organization Address [facility]/ZIP Co de Phone Number [facility] [address] [place] [address], * LACTIC ACID (07/29/2021 11:47 AM PERSONAL BANKING ADVISOR) LACTIC ACID VENOUS 1.9 0.4 - 2.0 MMOL/L 07/29/2021 12:11 PM [facility] 07/29/2021 11:4 7 AM PERSONAL BANKING ADVISOR Renee Hernandez MD LABORATORY Final Result Performing Organization Address [facility] Co de Phone Number [facility] [address] [place] [address], * (ABNORMAL) COMPREHENSIVE METABOLIC PANEL (07/29/2021 11:47 AM PERSONAL BANKING ADVISOR) SODIUM S/P/B 135(L) 136 - 145 MMOL/L 07/29/2021 12:08 PM [facility] POTASSIUM S/P/B 5.5(H) 3.5 - 5.1 MMOL/L 07/29/2021 12:08 PM [facility] CHLORIDE S/P/B 96(L) 98 - 107 MMOL/L 07/29/2021 12:08 PM [facility] CO2 20.5(L) 21.0 - 32.0 MMOL/L 07/29/2021 12:08 PM [facility] GLUCOSE 452(H) 70 - 99 MG/DL 07/29/2021 12:08 PM [facility] Comment: FASTING GLUCOSE 100 TO 125 MG/DL IS CONSISTENT WITH IMPAIRED FASTING GLUCOSE. FASTING GLUCOSE >125 MG/DL IS CONSISTENT WITH DIABETES. RANDOM GLUCOSE >200 MG/DL WITH HYPERGLYCEMIC SYMPTOMS IS CONSISTENT WITH DIABETES. PER ADA GUIDELINES BUN 38(H) 6 - 24 MG/DL 07/29/2021 12:08 PM [facility] CREATININE S/P/B 1.44(H) 0.55 - 1.02 MG/DL 07/29/2021 12:08 PM [facility] CALCIUM S/P/B 9.4 8.4 - 10.5 MG/DL 07/29/2021 12:08 PM [facility] BILIRUBIN TOTAL S/P/B 0.9 0.2 - 1.0 MG/DL 07/29/2021 12:08 PM [facility] Comment: THIS ASSAY IS NOT RECOMMENDED FOR PATIENTS UNDERGOING TREATMENT WITH ELTROMBOPAG DUE TO THE POTENTIAL FOR FALSELY ELEVATED RESULTS. ALKALINE PHOSPHATASE S/P/B 136(H) 37 - 98 U/L 07/29/2021 12:08 PM [facility] AST 25 15 - 37 U/L 07/29/2021 12:08 PM [facility] ALT 35 14 - 59 U/L 07/29/2021 12:08 PM [facility] TOTAL PROTEIN S/P/B 8.3(H) 6.4 - 8.2 G/DL 07/29/2021 12:08 PM [facility] ALBUMIN S/P/B 4.4 3.4 - 5.0 G/DL 07/29/2021 12:08 PM [facility] ANION GAP 18.5(H) 5.0 - 15.0 MMOL/L 07/29/2021 12:08 PM [facility] OSMOLALITY (CALC) 309 MOSM/KG 022 12:08 PM [facility] Comment:REFERENCE RANGE NOT ESTABLISHED EGFR NON-AFR. AMER. 48(L) >89 ML/MIN/1. 73 M2 07/29/2021 12:08 PM [facility] EGFR AFR. AMER. 56(L) >89 ML/MIN/1. 73 M2 07/29/2021 12:08 PM PERSONAL BANKING ADVISOR [facility] GFR NOTES GFR REFERENCE S: 07/29/2021 12:08 PM PERSONAL BANKING ADVISOR [facility] Comment: THE ESTIMATED GFR IS CALCULATED [...] <15 ml/min/1.73 m2 07/29/2021 11:4 7 AM PERSONAL BANKING ADVISOR us Renee Hernandez MD LABORATORY Final Result [facility] [place] [address], * (ABNORMAL) CBC W/DIFF AUTOMATED (07/29/2021 11:47 AM PERSONAL BANKING ADVISOR) WBC 8.7 4.0 - 10.8 x10'3/uL 07/29/2021 11:55 AM PERSONAL BANKING ADVISOR [facility] RBC 4.52 4.10 - 5.40 x10'6/uL 07/29/2021 11:55 AM [facility] HGB 13.6 12.0 - 16.0 G/DL 07/29/2021 11:55 AM [facility] HCT 42.2 36.0 - 47.0 % 07/29/2021 11:55 AM [facility] MCV 93.4 78.0 - 100.0 FL 07/29/2021 11:55 AM [facility] MCH 30.1 27.0 - 31.0 PG 07/29/2021 11:55 AM [facility] MCHC 32.2(L) 33.0 - 36.0 G/DL 07/29/2021 11:55 AM [facility] RDW 12.6 11.5 - 14.5 % 07/29/2021 11:55 AM [facility] PLT 256 150 - 350 x10'3/uL 07/29/2021 11:55 AM [facility] MPV 9.9 7.4 - 10.4 FL 07/29/2021 11:55 AM [facility] DIFFERENTIAL COMMENT NORMAL REFERENCE RANGE NOT ESTABLISHED FOR THE PROPORTIONAL LEUKOCYTE DIFFERENTIAL. 07/29/2021 11:55 AM [facility] SEG NEUTROPHILS 70.1 % 11:55 AM [facility] LYMPHOCYTES 23.5 % 07/29/2021 11:55 AM [facility] MONOCYTES 5.2 % 07/29/2021 11:55 AM [facility] EOSINOPHILS 0.5 % 07/29/2021 11:55 AM [facility] BASOPHILS 0.5 % 07/29/2021 11:55 AM [facility] IMMATURE GRANS % 0.2 % 07/29/19 11:55 AM [facility] NRBC 0.0 % 07/29/2021 11:55 AM [facility] ABS. NEUTROPHILS 6.07 1.60 - 8.30 x10'3/uL 07/29/2021 11:55 AM [facility] ABS. LYMPHOCYTES 2.03 0.80 - 4.70 x10'3/uL 07/29/2021 11:55 AM [facility] ABS. MONOCYTES 0.45 0.00 - 1.50 x10'3/uL 07/29/2021 11:55 AM [facility] ABS. EOSINOPHILS 0.04 0.00 - 0.40 x10'3/uL 07/29/2021 11:55 AM [facility] ABS. BASOPHILS 0.04 0.00 - 0.20 x10'3/uL 07/29/2021 11:55 AM [facility] ABS. IMMATURE GRANULOCYTES 0.02 0.00 - 0.03 x10'3/uL 07/29/2021 11:55 AM PERSONAL BANKING ADVISOR [facility] ABS. NUCLEATED RBC'S 0.00 0.00 x10'3/uL 07/29/2021 11:55 AM PERSONAL BANKING ADVISOR [facility] 07/29/2021 11:4 7 AM PERSONAL BANKING ADVISOR us Renee Hernandez MD LABORATORY Final Result [facility] [address] [place] [address], documented in this encounter Visit Diagnoses Diagnosis Abdominal pain, acute Abdominal pain, unspecified site documented in this encounter Care Teams Real Time Trader Relationship Specialty Start Date End Date Renee Hernandez MD [address] [place] [phone] PCP - General FAMILY PRACTICE 03/19/21 documented as of this encounter
--- OUTSIDE RECORDS SUMMARY | 2024-08-03 02:08 | XMS_ITS | Encounter Summary ---
Author Organization [facility] Address [address] [place] [address]. [place] [address] [place] [address] Care Team Providers Care Hydraulic Assembler Name Role Phone Renee Hernandez MD Primary Care Provider [phone] Encounter Details Date Type Department Care Team (Late st Contact Info) Description 07/29/2021 Orders Only [facility] [address] [place], [place] [phone] Renee Hernandez MD [address] [place] [address] Social History Tobacco Use Types [...] COVID-19? No / Unsure 07/29/2021 11:22 AM ZOO VETERINARIAN documented as of this encounter Plan of Treatment Not on file documented as of this encounter Results * AMYLASE (07/29/2021 11:47 AM ZOO VETERINARIAN) AMYLASE S/P/B 49 25 - 115 UNITS/L 07/29/2021 12:08 PM ZOO VETERINARIAN [facility] 07/29/2021 11:4 7 AM ZOO VETERINARIAN us Renee Hernandez MD LABORATORY Final Result Performing Organization Address [facility] Co de Phone Number [facility] [address] [place] [address], * (ABNORMAL) LIPASE (07/29/2021 11:47 AM ZOO VETERINARIAN) LIPASE 52(L) 73 - 393 UNITS/L 07/29/2021 12:08 PM ZOO VETERINARIAN [facility] 07/29/2021 11:4 7 AM ZOO VETERINARIAN us Renee Hernandez MD LABORATORY Final Result Performing Organization Address [facility] de Phone Number [facility] [address] [place] [address], [place] [phone] * LACTIC ACID (07/29/2021 11:47 AM ZOO VETERINARIAN) LACTIC ACID VENOUS 1.9 0.4 - 2.0 MMOL/L 07/29/2021 12:11 PM ZOO VETERINARIAN [facility] 07/29/2021 11:4 7 AM ZOO VETERINARIAN us Renee Hernandez MD LABORATORY Final Result Performing Organization Address [facility] de Phone Number [facility] [address] [place] [address], [place] [phone] * (ABNORMAL) COMPREHENSIVE METABOLIC PANEL (07/29/2021 11:47 AM ZOO VETERINARIAN) SODIUM S/P/B 135(L) 136 - 145 MMOL/L 07/29/2021 12:08 PM ZOO VETERINARIAN [facility] POTASSIUM S/P/B 5.5(H) 3.5 - 5.1 MMOL/L 07/29/2021 12:08 PM [facility] CHLORIDE S/P/B 96(L) 98 - 107 MMOL/L 07/29/2021 12:08 PM [facility] CO2 20.5(L) 21.0 - 32.0 MMOL/L 07/29/2021 12:08 PM [facility] GLUCOSE 452(H) 70 - 99 MG/DL 07/29/2021 12:08 PM [facility] Comment: FASTING GLUCOSE 100 TO 125 MG/DL IS CONSISTENT WITH IMPAIRED FASTING GLUCOSE. FASTING GLUCOSE >125 MG/DL IS CONSISTENT WITH DIABETES. RANDOM GLUCOSE >200 MG/DL WITH HYPERGLYCEMIC SYMPTOMS IS CONSISTENT WITH DIABETES. PER ADA GUIDELINES BUN 38(H) 6 - 24 MG/DL 07/29/2021 12:08 PM [facility] CREATININE S/P/B 1.44(H) 0.55 - 1.02 MG/DL 07/29/2021 12:08 PM [facility] CALCIUM S/P/B 9.4 8.4 - 10.5 MG/DL 07/29/2021 12:08 PM [facility] BILIRUBIN TOTAL S/P/B 0.9 0.2 - 1.0 MG/DL 07/29/2021 12:08 PM [facility] Comment: THIS ASSAY IS NOT RECOMMENDED FOR PATIENTS UNDERGOING TREATMENT WITH ELTROMBOPAG DUE TO THE POTENTIAL FOR FALSELY ELEVATED RESULTS. ALKALINE PHOSPHATASE S/P/B 136(H) 37 - 98 U/L 07/29/2021 12:08 PM [facility] AST 25 15 - 37 U/L 07/29/2021 12:08 PM [facility] ALT 35 14 - 59 U/L 07/29/2021 12:08 PM [facility] TOTAL PROTEIN S/P/B 8.3(H) 6.4 - 8.2 G/DL 07/29/2021 12:08 PM [facility] ALBUMIN S/P/B 4.4 3.4 - 5.0 G/DL 07/29/2021 12:08 PM [facility] ANION GAP 18.5(H) 5.0 - 15.0 MMOL/L 07/29/2021 12:08 PM [facility] OSMOLALITY (CALC) 309 MOSM/KG 022 12:08 PM [facility] Comment:REFERENCE RANGE NOT ESTABLISHED EGFR NON-AFR. AMER. 48(L) >89 ML/MIN/1. 73 M2 07/29/2021 12:08 PM [facility] EGFR AFR. AMER. 56(L) >89 ML/MIN/1. 73 M2 07/29/2021 12:08 PM [facility] GFR NOTES GFR REFERENCE S: 07/29/2021 12:08 PM [facility] Comment: THE ESTIMATED GFR IS [...] <15 ml/min/1.73 m2 07/29/2021 11:4 7 AM ZOO VETERINARIAN us Renee Hernandez MD LABORATORY Final Result [facility] [address] [employer] [place] [address], * (ABNORMAL) CBC W/DIFF AUTOMATED (07/29/2021 11:47 AM ZOO VETERINARIAN) WBC 8.7 4.0 - 10.8 x10'3/uL 07/29/2021 11:55 AM ZOO VETERINARIAN [facility] RBC 4.52 4.10 - 5.40 x10'6/uL 07/29/2021 11:55 AM ZOO VETERINARIAN [facility] HGB 13.6 12.0 - 16.0 G/DL 07/29/2021 11:55 AM [facility] HCT 42.2 36.0 - 47.0 % 07/29/2021 11:55 AM [facility] MCV 93.4 78.0 - 100.0 FL 07/29/2021 11:55 AM [facility] MCH 30.1 27.0 - 31.0 PG 07/29/2021 11:55 AM [facility] MCHC 32.2(L) 33.0 - 36.0 G/DL 07/29/2021 11:55 AM [facility] RDW 12.6 11.5 - 14.5 % 07/29/2021 11:55 AM [facility] PLT 256 150 - 350 x10'3/uL 07/29/2021 11:55 AM [facility] MPV 9.9 7.4 - 10.4 FL 07/29/2021 11:55 AM [facility] DIFFERENTIAL COMMENT NORMAL REFERENCE RANGE NOT ESTABLISHED FOR THE PROPORTIONAL LEUKOCYTE DIFFERENTIAL. 07/29/2021 11:55 AM [facility] SEG NEUTROPHILS 70.1 % 11:55 AM [facility] LYMPHOCYTES 23.5 % 07/29/2021 11:55 AM [facility] MONOCYTES 5.2 % 07/29/2021 11:55 AM [facility] EOSINOPHILS 0.5 % 07/29/2021 11:55 AM [facility] BASOPHILS 0.5 % 07/29/2021 11:55 AM [facility] IMMATURE GRANS % 0.2 % 07/29/19 11:55 AM [facility] NRBC 0.0 % 07/29/2021 11:55 AM [facility] ABS. NEUTROPHILS 6.07 1.60 - 8.30 x10'3/uL 07/29/2021 11:55 AM [facility] ABS. LYMPHOCYTES 2.03 0.80 - 4.70 x10'3/uL 07/29/2021 11:55 AM ZOO VETERINARIAN [facility] ABS. MONOCYTES 0.45 0.00 - 1.50 x10'3/uL 07/29/2021 11:55 AM ZOO VETERINARIAN [facility] ABS. EOSINOPHILS 0.04 0.00 - 0.40 x10'3/uL 07/29/2021 11:55 AM ZOO VETERINARIAN [facility] ABS. BASOPHILS 0.04 0.00 - 0.20 x10'3/uL 07/29/2021 11:55 AM ZOO VETERINARIAN [facility] ABS. IMMATURE GRANULOCYTES 0.02 0.00 - 0.03 x10'3/uL 07/29/2021 11:55 AM ZOO VETERINARIAN [facility] ABS. NUCLEATED RBC'S 0.00 0.00 x10'3/uL 07/29/2021 11:55 AM ZOO VETERINARIAN [facility] 07/29/2021 11:4 7 AM ZOO VETERINARIAN us Renee Hernandez MD LABORATORY Final Result [facility] [address] [place], [place] [address] [phone] documented in this encounter Visit Diagnoses Diagnosis Abdominal pain, acute- Primary Abdominal pain, unspecified site documented in this encounter Care Teams Hydraulic Assembler Relationship Specialty Start Date End Date Renee Hernandez MD [address] [place] [address] PCP - General FAMILY PRACTICE 03/19/21 documented as of this encounter
--- OUTSIDE RECORDS SUMMARY | 2024-08-03 02:08 | XMS_ITS | Clinical Summary ---
Author Organization [facility] Address [facility] [place] [address] [place] [address] Care Team Providers Care Loom Fixer Helper Name Role Phone Renee Hernandez MD Primary Care Provider Allergies Active Allergy Reactions Criticality Noted Date [...] Problem Noted Date Diagnosed Date Diabetic ketoacidosis ([facility]) 04/08/20 18 High anion gap metabolic acidosis 04/08/2018 Type 1 diabetes mellitus ([facility]) 04/08 Hyponatremia 04/08/2018 Hyperglycemia 04/08/2018 Hyperlipidemia 04/08/2018 Smoker 04/08/2018 Anxiety 04/08/2018 Depression 04/08/2018 UTI (urinary tract infection) 04/08/2018 Encounters Date Type Department Care Team Description 05/22/2024 2:02 PM CDT - 05/22/2024 11:59 PM CDT Hospital Encounter [facility] [address] [place] [address] Rayna Dior NP Discharge Disposition: Home or Self Care (Routine Discharge) 05/22/2024 2:00 PM CDT - 05/22/2024 2:01 PM CDT Hospital Encounter [facility] [address] [place] [address] Rayna Dior NP Discharge Disposition: Home or Self Care (Routine Discharge) 05/22/[address] [facility] [address] [place] [address] Rayna Dior NP 05/22/[address] [facility] [address] [place] [address] Rayna Dior NP 05/22/2024 Travel from Last [...] 2:46 PM Narrative 05/22/2024 2:48 PM CDT [address] [place] [address] 05/22/2024, 1423 hours. HISTORY: Upper respiratory virus. [...] Procedure Note Rodger Andrade MD - 05/22/2024 [facility] [address] [place] [address] 05/22/2024, 1423 hours. HISTORY: Upper respiratory virus. [...] Andrade MD, 05/22/2024 2:46 PM Rayna Dior AGRICULTURAL CROP FARM MANAGER GENERAL IMAGING Final Result * RESPIRATORY PCR PANEL (W COVID) (05/22/2024 2:11 PM CDT) ADENOVIRUS PCR (RESP) NOT DETECTED NOT DETECTED 05/23/2024 2:08 PM CDT [facility] CORONAVIRUS 229E PCR (RESP) NOT DETECTED NOT DETECTED 05/23/2024 2:08 PM CDT [facility] CORONAVIRUS HKU1 PCR (RESP) NOT DETECTED NOT DETECTED 05/23/2024 2:08 PM CDT [facility] CORONAVIRUS NL63 PCR (RESP) NOT DETECTED NOT DETECTED 05/23/2024 2:08 PM CDT [facility] CORONAVIRUS OC43 PCR (RESP) NOT DETECTED NOT DETECTED 05/23/2024 2:08 PM CDT [facility] METAPNEUMOVIRUS PCR (RESP) NOT DETECTED NOT DETECTED 05/23/2024 2:08 PM CDT [facility] RHINOVIRUS/ENTEROV IRUS PCR (RESP) NOT DETECTED NOT DETECTED 05/23/2024 2:08 PM CDT [facility] INFLUENZA A PCR (RESP) NOT DETECTED NOT DETECTED 05/23/2024 2:08 PM CDT [facility] INFLUENZA B PCR (RESP) NOT DETECTED NOT DETECTED 05/23/2024 2:08 PM CDT [facility] PARAINFLUENZA 1 PCR (RESP) NOT DETECTED NOT DETECTED 05/23/2024 2:08 PM CDT [facility] PARAINFLUENZA 2 PCR (RESP) NOT DETECTED NOT DETECTED 05/23/2024 2:08 PM CDT [facility] PARAINFLUENZA 3 PCR (RESP) NOT DETECTED NOT DETECTED 05/23/2024 2:08 PM CDT [facility] PARAINFLUENZA 4 PCR (RESP) NOT DETECTED NOT DETECTED 05/23/2024 2:08 PM CDT [facility] RSV PCR (RESP) NOT DETECTED NOT DETECTED 05/23/2024 2:08 PM CDT [facility] B PARAPERTUSIS PCR (RESP) NOT DETECTED NOT DETECTED 05/23/2024 2:08 PM CDT [facility] BORDETELLA PERTUSSIS PCR (RESP) NOT DETECTED NOT DETECTED 05/23/2024 2:08 PM CDT [facility] CHLAMYDOPHILA PNEUMONIAE PCR (RESP) NOT DETECTED NOT DETECTED 05/23/2024 2:08 PM CDT [facility] MYCOPLASMA PNEUMONIAE PCR (RESP) NOT DETECTED NOT DETECTED 05/23/2024 2:08 PM CDT [facility] CORONAVIRUS SARS COV 2 PCR (RESP) NOT DETECTED NOT DETECTED 05/23/2024 2:08 PM CDT [facility] NASOPHARYNGEAL SWAB / Unknown 05/22/2024 2:11 PM CDT us Rayna Dior MAIDA MICROBIOLOGY - GENERAL ORDERABLE S Final Result [facility] [address] [place] [address], [id number] * (ABNORMAL) COMPREHENSIVE METABOLIC PANEL (05/22/2024 2:11 PM CDT) SODIUM S/P/B 136 136 - 145 MMOL/L 05/22/2024 3:00 PM CDT [facility] POTASSIUM S/P/B 5.2(H) 3.5 - 5.1 MMOL/L 05/22/2024 3:00 PM CDT [facility] CHLORIDE S/P/B 98 98 - 107 MMOL/L 05/22/2024 3:00 PM CDT [facility] CO2 30.3 21.0 - 32.0 MMOL/L 05/22/2024 3:00 PM CDT [facility] GLUCOSE 174(H) 70 - 99 MG/DL 05/22/2024 3:00 PM CDT [facility] Comment: FASTING GLUCOSE 100 TO 125 MG/DL IS CONSISTENT WITH IMPAIRED FASTING GLUCOSE. FASTING GLUCOSE >125 MG/DL IS CONSISTENT WITH DIABETES. RANDOM GLUCOSE >200 MG/DL WITH HYPERGLYCEMIC SYMPTOMS IS CONSISTENT WITH DIABETES. PER ADA GUIDELINES BUN 21 6 - 24 MG/DL 05/22/2024 3:00 PM CDT [facility] CREATININE S/P/B 0.98 0.55 - 1.02 MG/DL 05/22/2024 3:00 PM CDT [facility] CALCIUM S/P/B 9.5 8.4 - 10.5 MG/DL 05/22/2024 3:00 PM CDT [facility] BILIRUBIN TOTAL S/P/B 0.5 0.2 - 1.0 MG/DL 05/22/2024 3:00 PM CDT [facility] Comment: THIS ASSAY IS NOT RECOMMENDED FOR PATIENTS UNDERGOING TREATMENT WITH ELTROMBOPAG DUE TO THE POTENTIAL FOR FALSELY ELEVATED RESULTS. ALKALINE PHOSPHATASE S/P/B 120(H) 37 - 98 U/L 05/22/2024 3:00 PM CDT [facility] AST 26 15 - 37 U/L 05/22/2024 3:00 PM CDT [facility] ALT 44 14 - 59 U/L 05/22/2024 3:00 PM CDT [facility] TOTAL PROTEIN S/P/B 8.2 6.4 - 8.2 G/DL 05/22/2024 3:00 PM CDT [facility] ALBUMIN S/P/B 4.0 3.4 - 5.0 G/DL 05/22/2024 3:00 PM CDT [facility] ANION GAP 7.7 5.0 - 15.0 MMOL/L 05/22/2024 3:00 PM CDT [facility] OSMOLALITY (CALC) 289 MOSM/KG 024 3:00 PM CDT [facility] Comment:REFERENCE RANGE NOT ESTABLISHED GFR ESTIMATE 77(L) >89 ML/MIN/1. 73 M2 05/22/2024 3:00 PM CDT [facility] GFR NOTES GFR REFERENCE S: 05/22/2024 3:00 PM CDT [facility] Comment: THE ESTIMATED GFR [...] us Rayna Dior NP LABORATORY Final Result [facility] [address] [place] [address], * CBC W/DIFF AUTOMATED (05/22/2024 2:11 PM CDT) WBC 5.55 4.00 - 10.80 x10'3/uL 05/22/2024 2:39 PM CDT [facility] RBC 4.38 4.10 - 5.40 x10'6/uL 05/22/2024 2:39 PM CDT [facility] HGB 13.4 12.0 - 16.0 G/DL 05/22/2024 2:39 PM CDT [facility] HCT 39.2 36.0 - 47.0 % 05/22/2024 2:39 PM CDT [facility] MCV 89.5 78.0 - 100.0 FL 05/22/2024 2:39 PM CDT [facility] MCH 30.6 27.0 - 31.0 PG 05/22/2024 2:39 PM CDT [facility] MCHC 34.2 33.0 - 36.0 G/DL 05/22/2024 2:39 PM CDT [facility] RDW 11.9 11.5 - 14.5 % 05/22/2024 2:39 PM CDT [facility] PLT 255 150 - 350 x10'3/uL 05/22/2024 2:39 PM CDT [facility] MPV 9.4 7.4 - 10.4 FL 05/22/2024 2:39 PM CDT [facility] CBC COMMENT NORMAL REFERENCE RANGE NOT ESTABLISHED FOR THE PROPORTIONAL LEUKOCYTE DIFFERENTIAL. 05/22/2024 2:39 PM CDT [facility] NEUTROPHILS % 47.8 % 05/22/2024 2:39 PM CDT [facility] LYMPHOCYTES % 42.0 % 05/22/2024 2:39 PM CDT [facility] MONOCYTES % 7.9 % 05/22/2024 2:39 PM CDT [facility] EOSINOPHILS % 1.4 % 05/22/2024 2:39 PM CDT [facility] BASOPHILS % 0.9 % 05/22/2024 2:39 PM CDT [facility] IMMATURE GRANS % 0.0 % 05/22/20 2:39 PM CDT [facility] NRBC % 0.0 % 05/22/2024 2:39 PM CDT [facility] ABS. NEUTROPHILS 2.65 1.60 - 8.30 x10'3/uL 05/22/2024 2:39 PM CDT [facility] ABS. LYMPHOCYTES 2.33 0.80 - 4.70 x10'3/uL 05/22/2024 2:39 PM CDT [facility] ABS. MONOCYTES 0.44 0.00 - 1.50 x10'3/uL 05/22/2024 2:39 PM CDT [facility] ABS. EOSINOPHILS 0.08 0.00 - 0.40 x10'3/uL 05/22/2024 2:39 PM CDT [facility] ABS. BASOPHILS 0.05 0.00 - 0.20 x10'3/uL 05/22/2024 2:39 PM CDT [facility] ABS. IMMATURE GRANULOCYTES 0.00 0.00 - 0.03 x10'3/uL 05/22/2024 2:39 PM CDT [facility] ABS. NUCLEATED RBC'S 0.00 0.00 - 0.01 x10'3/uL 05/22/2024 2:39 PM CDT [facility] 05/22/2024 2:11 PM CDT us Rayna Dior NP LABORATORY Final Result [facility] [address] [address], * THYROXINE, FREE (FT4) (05/22/2024 2:11 PM CDT) FREE T4 0.93 0.76 - 1.46 NG/DL 05/22/2024 3:00 PM CDT [facility] 05/22/2024 2:11 PM CDT Rayna Dior NP LABORATORY Final Result Performing Organization Address [facility] Co de Phone Number [facility] [address] [place] [id number], * (ABNORMAL) THYROID STIM HORMONE TSH (05/22/2024 2:11 PM CDT) TSH 6.564(H) 0.358 - 3.740 uIU/ML 05/22/2024 3:00 PM CDT [facility] Comment: ASSAY PERFORMED BY CHEMILUMINESCENT IMMUNOASSAY METHODOLOGY USING MTailor REAGENT. PATIENT RESULTS DETERMINED BY ASSAYS FROM DIFFERENT MANUFACTURERS AND/OR BY DIFFERENT METHODS MAY NOT BE COMPARABLE. 05/22/2024 2:11 PM CDT Rayna Dior NP LABORATORY Final Result Performing Organization Address [facility] Co de Phone Number [facility] [place] [address], * (ABNORMAL) HEMOGLOBIN, GLYCATED (04/08/2018 12:41 PM CDT) HGB A1C 10.2(H) 4.2 - 6.3 % 04/09/2018 4:13 AM CDT [facility] ESTIMATED AVG GLUCOSE 246(H) 74 - 106 MG/DL 04/09/2018 4:13 AM CDT [facility] 04/08/2018 12:4 1 PM CDT Mendoza Godfrey APRN LABORATORY Final R esult Performing Organization Address City/[facility]/ZIP Co de Phone Number [facility] [address] [place] [address], [place] [phone] * (ABNORMAL) LIPID PANEL (04/08/2018 12:13 PM CDT) CHOLESTEROL 206 MG/DL 04/08/2018 2:19 PM CDT [facility] Comment:HIGH: > OR = 240 TRIGLYCERIDES 385 MG/DL 04/08/2018 2:19 PM CDT [facility] Comment:200-499 HIGH HDL 43(L) >49 MG/DL 04/08/2018 2:19 PM CDT [facility] LDL (CALCULATED) 86 MG/DL 04/08/20 18 2:19 PM CDT [facility] Comment:<100 OPTIMAL VLDL CALCULATION 77 MG/DL 04/08/20 18 2:19 PM CDT [facility] Comment:REFERENCE RANGE NOT ESTABLISHED CHOL/HDL RATIO 4.8 04/08/2018 2:19 PM CDT [facility] Comment:REFERENCE RANGE NOT ESTABLISHED LDL/HDL 2.0 04/08/2018 2:19 PM CDT [facility] Comment:REFERENCE RANGE NOT ESTABLISHED NON HDL CHOLESTEROL 163 MG/DL 04/08/2018 2:19 PM CDT [facility] Comment:REFERENCE RANGE NOT ESTABLISHED 04/08/2018 12:1 3 PM CDT Mendoza Godfrey MIXED CROP FARMER LABORATORY Final R esult [facility] [address] [place] [address], [id number] * Cytopath Cerv/Vag Thin Layer (04/08/2018 6:52 AM CDT) PAP SMEAR [facility] ?[address] ?[place] [address] ? Department of Pathology ? Pathology Report ? CERVICAL/VAGINAL PAP SMEAR REPORT Name: KATHY ROBERTO ? Age: 5 1990 (Age: 27) ? Location: [id number] Sex: F ?Collected Date: 04/08/2018 Hospital #: [id number] ?Date Received: 04/11/2018 Date Reported: 04/12/2018 Provider: SABA JUDGE ?ANSON MICHAELSIKH INTERPRETATION CERVICAL/ENDOCERVIC AL, PAP TEST: ? SATISFACTORY FOR EVALUATION. ENDOCERVICAL/TRANSF ORMATION ZONE COMPONENT PRESENT. ? NEGATIVE FOR INTRAEPITHELIAL LESION OR MALIGNANCY. SHIFT IN BACTERIAL DENNIS SUGGESTIVE OF BACTERIAL VAGINOSIS. Electronically Signed Out Chet Durant M.D. Brooke Stoll, [place] ([facility]) CLINICAL HISTORY HEALTH MAINTENANCE ThinPrep Pap Test [...] Most Recently Relevant to Health Maintenance Insurance [address] [place] [address] Advance Directives * Full Code (Latest Code Status on File) Date Activated Date Inactivated Comments 04/08/2018 12:45 PM 04/11/2018 7:42 PM Care Teams Loom Fixer Helper Relationship Specialty Start Date End Date Renee Hernandez MD [address] [place] [address] PCP - General FAMILY PRACTICE 03/19/21
--- OUTSIDE RECORDS SUMMARY | 2024-08-03 02:08 | XMS_ITS | Encounter Summary ---
Author Organization [facility] Address [facility] [facility] [place] [address] [place] [address] Care Team Providers Care Public Health Name Role Phone Renee Hernandez MD Primary Care Provider [phone] Encounter Details Date Type Department Care Team (Late st Contact Info) Description 05/22/2024 2:00 PM CDT - 05/22/2024 2:01 PM CDT Hospital Encounter [facility] [address] [place] [address] Rayna Dior NP [address] [place] [address] Discharge Disposition: Home or Self [...] 2:46 PM Narrative 05/22/2024 2:48 PM [address] [place] [address] 05/22/2024, 1423 hours. HISTORY: Upper respiratory virus. [...] Procedure Note Rodger Andrade MD - 05/22/[address] [place] [address] 05/22/2024, 1423 hours. HISTORY: Upper respiratory virus. [...] Andrade MD, 05/22/2024 2:46 PM Rayna Dior BIOMEDICAL ENGINEER GENERAL IMAGING Final Result documented in this encounter Visit Diagnoses Diagnosis Upper respiratory virus Acute upper respiratory infections of unspecified site documented in this encounter Care Teams Public Health Relationship Specialty Start Date End Date Renee Hernandez MD [address] [place] [address] PCP - General FAMILY PRACTICE 03/19/21 documented as of this encounter
--- OUTSIDE RECORDS SUMMARY | 2024-08-03 02:08 | XMS_ITS | Encounter Summary ---
Author Organization [facility] Address [facility] [place] [address] [place] [address] Care Team Providers Care Tanyard Worker Name Role Phone Renee Hernandez MD Primary Care Provider [phone] Reason for Visit * Reason Comments Dental Pain Encounter Details Date Type Department Care Team ([facility] st Contact Info) Description 03/30/2021 6:37 PM CDT - 03/30/2021 7:08 PM CDT Emergency [facility] [place] [address] Sami Aguilera MD [address] [place] [address] Dental Pain Discharge Disposition: Home or [...] sent through Care Everywhere. * Dental Pain (Scottish) documented in this encounter Medications at Time [...] Gatherings with Friends and Family: ??? Attends Congregation Services: ??? Active Member of Clubs or [...] TOOTHACHE Renee Hernandez MD [address] [place] [address] In 2 days If not improving [...] structures documented in this encounter Care Teams Tanyard Worker Relationship Specialty Start Date End Date Renee Hernandez MD [address] [place] [phone] PCP - General FAMILY PRACTICE 03/19/21 documented as of this encounter
--- OUTSIDE RECORDS SUMMARY | 2024-08-03 02:08 | XMS_ITS | Encounter Summary ---
Author Organization [facility] Address [facility] [place] [address] [place] [address] Care Team Providers Care Facsimile Operator Name Role Phone Renee Hernandez MD Primary Care Provider [phone] Encounter Details Date Type Department Care Team [...] on filedocumented in this encounter Care Teams Facsimile Operator Relationship Specialty Start Date End Date Renee Hernandez MD [address] [place] [address] PCP - General FAMILY PRACTICE 03/19/21 documented as of this encounter
--- OUTSIDE RECORDS SUMMARY | 2024-08-03 02:08 | XMS_ITS | Encounter Summary ---
Author Organization [facility] Address [facility] [place] [address] [place] [address] Care Team Providers Care Inspector Crystal Name Role Phone Renee Hernandez MD Primary Care Provider [phone] Encounter Details Date Type Department Care Team [...] documented as of this encounter Care Teams Inspector Crystal Relationship Specialty Start Date End Date Renee Hernandez MD [address] [place] [address] PCP - General FAMILY PRACTICE 03/19/21 documented as of this encounter
--- OUTSIDE RECORDS SUMMARY | 2024-08-03 02:08 | XMS_ITS | Encounter Summary ---
Author Organization [facility] Address [facility] [place] [address] [place] [address] Care Team Providers Care Federal Air Marshal Name Role Phone Renee Hernandez MD Primary Care Provider [phone] Encounter Details Date Type Department Care Team (Late st Contact Info) Description 05/22/2024 Orders Only [facility] [address] [place] [address] Rayna Irving NP [address] [place] [address] Social History Tobacco Use Types [...] - 10.80 x10'3/uL 05/22/2024 2:39 PM CDT [facility] RBC 4.38 4.10 - 5.40 x10'6/uL 05/22/2024 2:39 PM CDT [facility] HGB 13.4 12.0 - 16.0 G/DL 05/22/2024 2:39 PM CDT [facility] HCT 39.2 36.0 - 47.0 % 05/22/2024 2:39 PM CDT [facility] MCV 89.5 78.0 - 100.0 FL 05/22/2024 2:39 PM CDT [facility] MCH 30.6 27.0 - 31.0 PG 05/22/2024 2:39 PM CDT [facility] MCHC 34.2 33.0 - 36.0 G/DL 05/22/2024 2:39 PM CDT [facility] RDW 11.9 11.5 - 14.5 % 05/22/2024 2:39 PM CDT [facility] PLT 255 150 - 350 x10'3/uL 05/22/2024 2:39 PM CDT [facility] MPV 9.4 7.4 - 10.4 FL 05/22/2024 2:39 PM CDT [facility] CBC COMMENT NORMAL REFERENCE RANGE NOT ESTABLISHED FOR THE PROPORTIONAL LEUKOCYTE DIFFERENTIAL. 05/22/2024 2:39 PM CDT [facility] NEUTROPHILS % 47.8 % 05/22/2024 2:39 PM CDT [facility] LYMPHOCYTES % 42.0 % 05/22/2024 2:39 PM CDT [facility] MONOCYTES % 7.9 % 05/22/2024 2:39 PM CDT [facility] EOSINOPHILS % 1.4 % 05/22/2024 2:39 PM CDT [facility] BASOPHILS % 0.9 % 05/22/2024 2:39 PM CDT [facility] IMMATURE GRANS % 0.0 % 05/22/20 2:39 PM CDT [facility] NRBC % 0.0 % 05/22/2024 2:39 PM CDT [facility] ABS. NEUTROPHILS 2.65 1.60 - 8.30 x10'3/uL 05/22/2024 2:39 PM CDT [facility] ABS. LYMPHOCYTES 2.33 0.80 - 4.70 x10'3/uL 05/22/2024 2:39 PM CDT [facility] ABS. MONOCYTES 0.44 0.00 - 1.50 x10'3/uL 05/22/2024 2:39 PM CDT [facility] ABS. EOSINOPHILS 0.08 0.00 - 0.40 x10'3/uL 05/22/2024 2:39 PM CDT [facility] ABS. BASOPHILS 0.05 0.00 - 0.20 x10'3/uL 05/22/2024 2:39 PM CDT [facility] ABS. IMMATURE GRANULOCYTES 0.00 0.00 - 0.03 x10'3/uL 05/22/2024 2:39 PM CDT [facility] ABS. NUCLEATED RBC'S 0.00 0.00 - 0.01 x10'3/uL 05/22/2024 2:39 PM CDT [facility] 05/22/2024 2:11 PM CDT Rayna Irving NP LABORATORY Final Result [facility] [place] [address], * (ABNORMAL) COMPREHENSIVE METABOLIC PANEL (05/22/2024 2:11 PM CDT) SODIUM S/P/B 136 136 - 145 MMOL/L 05/22/2024 3:00 PM CDT [facility] POTASSIUM S/P/B 5.2(H) 3.5 - 5.1 MMOL/L 05/22/2024 3:00 PM CDT [facility] CHLORIDE S/P/B 98 98 - 107 MMOL/L 05/22/2024 3:00 PM CDT [facility] CO2 30.3 21.0 - 32.0 MMOL/L 05/22/2024 3:00 PM CDT [facility] GLUCOSE 174(H) 70 - 99 MG/DL 05/22/2024 3:00 PM [facility] Comment: FASTING GLUCOSE 100 TO 125 MG/DL IS CONSISTENT WITH IMPAIRED FASTING GLUCOSE. FASTING GLUCOSE >125 MG/DL IS CONSISTENT WITH DIABETES. RANDOM GLUCOSE >200 MG/DL WITH HYPERGLYCEMIC SYMPTOMS IS CONSISTENT WITH DIABETES. PER ADA GUIDELINES BUN 21 6 - 24 MG/DL 05/22/2024 3:00 PM T [facility] CREATININE S/P/B 0.98 0.55 - 1.02 MG/DL 05/22/2024 3:00 PM [facility] CALCIUM S/P/B 9.5 8.4 - 10.5 MG/DL 05/22/2024 3:00 PM [facility] BILIRUBIN TOTAL S/P/B 0.5 0.2 - 1.0 MG/DL 05/22/2024 3:00 PM T [facility] Comment: THIS ASSAY IS NOT RECOMMENDED FOR PATIENTS UNDERGOING TREATMENT WITH ELTROMBOPAG DUE TO THE POTENTIAL FOR FALSELY ELEVATED RESULTS. ALKALINE PHOSPHATASE S/P/B 120(H) 37 - 98 U/L 05/22/2024 3:00 PM T [facility] AST 26 15 - 37 U/L 05/22/2024 3:00 PM [facility] ALT 44 14 - 59 U/L 05/22/2024 3:00 PM [facility] TOTAL PROTEIN S/P/B 8.2 6.4 - 8.2 G/DL 05/22/2024 3:00 PM [facility] ALBUMIN S/P/B 4.0 3.4 - 5.0 G/DL 05/22/2024 3:00 PM [facility] ANION GAP 7.7 5.0 - 15.0 MMOL/L 05/22/2024 3:00 PM [facility] OSMOLALITY (CALC) 289 MOSM/KG 024 3:00 PM T [facility] Comment:REFERENCE RANGE NOT ESTABLISHED GFR ESTIMATE 77(L) >89 ML/MIN/1. 73 M2 05/22/2024 3:00 PM CDT [facility] GFR NOTES GFR REFERENCE S: 05/22/2024 3:00 PM CDT [facility] Comment: THE ESTIMATED GFR IS [...] CDT Rayna Irving NP LABORATORY Final Result [facility] [address] [place] [address], * THYROXINE, FREE (FT4) (05/22/2024 2:11 PM CDT) FREE T4 0.93 0.76 - 1.46 NG/DL 05/22/2024 3:00 PM CDT [facility] 05/22/2024 2:11 PM CDT Rayna Irving NP LABORATORY Final Result [facility] [address] [place] [address], * (ABNORMAL) THYROID STIM HORMONE TSH (05/22/2024 2:11 PM CDT) TSH 6.564(H) 0.358 - 3.740 uIU/ML 05/22/2024 3:00 PM CDT [facility] Comment: ASSAY PERFORMED BY CHEMILUMINESCENT IMMUNOASSAY METHODOLOGY USING SIEMENS DIMENSION REAGENT. PATIENT RESULTS DETERMINED BY ASSAYS FROM DIFFERENT MANUFACTURERS AND/OR BY DIFFERENT METHODS MAY NOT BE COMPARABLE. 05/22/2024 2:11 PM CDT Rayna Irving NP LABORATORY Final Result [facility] [address] [place] [address], documented in this encounter Visit Diagnoses Diagnosis Hypothyroidism- Primary Unspecified hypothyroidism Hematemesis Acute upper respiratory infection Acute upper respiratory infections of unspecified site documented in this encounter Care Teams [employer] Relationship Specialty Start Date End Date Renee Hernandez MD [address] [place] [id number] PCP - General FAMILY PRACTICE 03/19/21 documented as of this encounter
--- OUTSIDE RECORDS SUMMARY | 2024-08-03 02:08 | XMS_ITS | Encounter Summary ---
Author Organization [facility] Address [facility] [place] [address] [place] [address] Care Team Providers Care Senior Architect/Design Manager Name Role Phone Renee Hernandez MD Primary Care Provider [phone] Encounter Details Date Type Department Care Team [...] COVID-19? 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
--- OUTSIDE RECORDS SUMMARY | 2024-08-03 02:08 | XMS_ITS | Encounter Summary ---
Author Organization [facility] Address Formerly [facility], [id number] [facility] [place] [place] [address] [place] [address] Care Team Providers Care Lockstitch Front Edge Tape Sewer Name Role Phone Renee Hernandez MD Primary Care Provider [phone] Encounter Details Date Type Department Care Team (Late st Contact Info) Description 05/22/2024 2:02 PM CDT - 05/22/2024 11:59 PM CDT Hospital Encounter [facility] [address] [place] [address] Rayna Irving NP [address] [place] [address] Discharge Disposition: Home or Self [...] DETECTED NOT DETECTED 05/23/2024 2:08 PM CDT [facility] CORONAVIRUS 229E PCR (RESP) NOT DETECTED NOT DETECTED 05/23/2024 2:08 PM CDT [facility] CORONAVIRUS HKU1 PCR (RESP) NOT DETECTED NOT DETECTED 05/23/2024 2:08 PM CDT [facility] CORONAVIRUS NL63 PCR (RESP) NOT DETECTED NOT DETECTED 05/23/2024 2:08 PM CDT [facility] CORONAVIRUS OC43 PCR (RESP) NOT DETECTED NOT DETECTED 05/23/2024 2:08 PM CDT [facility] METAPNEUMOVIRUS PCR (RESP) NOT DETECTED NOT DETECTED 05/23/2024 2:08 PM CDT [facility] RHINOVIRUS/ENTEROV IRUS PCR (RESP) NOT DETECTED NOT DETECTED 05/23/2024 2:08 PM CDT [facility] INFLUENZA A PCR (RESP) NOT DETECTED NOT DETECTED 05/23/2024 2:08 PM CDT [facility] INFLUENZA B PCR (RESP) NOT DETECTED NOT DETECTED 05/23/2024 2:08 PM CDT [facility] PARAINFLUENZA 1 PCR (RESP) NOT DETECTED NOT DETECTED 05/23/2024 2:08 PM CDT [facility] PARAINFLUENZA 2 PCR (RESP) NOT DETECTED NOT DETECTED 05/23/2024 2:08 PM CDT [facility] PARAINFLUENZA 3 PCR (RESP) NOT DETECTED NOT DETECTED 05/23/2024 2:08 PM CDT [facility] PARAINFLUENZA 4 PCR (RESP) NOT DETECTED NOT DETECTED 05/23/2024 2:08 PM CDT [facility] RSV PCR (RESP) NOT DETECTED NOT DETECTED 05/23/2024 2:08 PM CDT [facility] B PARAPERTUSIS PCR (RESP) NOT DETECTED NOT DETECTED 05/23/2024 2:08 PM CDT [facility] BORDETELLA PERTUSSIS PCR (RESP) NOT DETECTED NOT DETECTED 05/23/2024 2:08 PM CDT [facility] CHLAMYDOPHILA PNEUMONIAE PCR (RESP) NOT DETECTED NOT DETECTED 05/23/2024 2:08 PM CDT [facility] MYCOPLASMA PNEUMONIAE PCR (RESP) NOT DETECTED NOT DETECTED 05/23/2024 2:08 PM CDT [facility] CORONAVIRUS SARS COV 2 PCR (RESP) NOT DETECTED NOT DETECTED 05/23/2024 2:08 PM CDT [facility] NASOPHARYNGEAL SWAB / Unknown 05/22/2024 2:11 PM CDT us Rayna Irving NP MICROBIOLOGY - GENERAL ORDERABLE S Final Result [facility] [address] [place] [address], [place] [phone] [id number] * CBC W/DIFF AUTOMATED (05/22/2024 2:11 PM CDT) WBC 5.55 4.00 - 10.80 x10'3/uL 05/22/2024 2:39 PM CDT [facility] RBC 4.38 4.10 - 5.40 x10'6/uL 05/22/2024 2:39 PM CDT [facility] HGB 13.4 12.0 - 16.0 G/DL 05/22/2024 2:39 PM CDT [facility] HCT 39.2 36.0 - 47.0 % 05/22/2024 2:39 PM CDT [facility] MCV 89.5 78.0 - 100.0 FL 05/22/2024 2:39 PM CDT [facility] MCH 30.6 27.0 - 31.0 PG 05/22/2024 2:39 PM CDT [facility] MCHC 34.2 33.0 - 36.0 G/DL 05/22/2024 2:39 PM CDT [facility] RDW 11.9 11.5 - 14.5 % 05/22/2024 2:39 PM CDT [facility] PLT 255 150 - 350 x10'3/uL 05/22/2024 2:39 PM CDT [facility] MPV 9.4 7.4 - 10.4 FL 05/22/2024 2:39 PM CDT [facility] CBC COMMENT NORMAL REFERENCE RANGE NOT ESTABLISHED FOR THE PROPORTIONAL LEUKOCYTE DIFFERENTIAL. 05/22/2024 2:39 PM CDT [facility] NEUTROPHILS % 47.8 % 05/22/2024 2:39 PM CDT [facility] LYMPHOCYTES % 42.0 % 05/22/2024 2:39 PM CDT [facility] MONOCYTES % 7.9 % 05/22/2024 2:39 PM CDT [facility] EOSINOPHILS % 1.4 % 05/22/2024 2:39 PM CDT [facility] BASOPHILS % 0.9 % 05/22/2024 2:39 PM CDT [facility] IMMATURE GRANS % 0.0 % 05/22/20 2:39 PM CDT [facility] NRBC % 0.0 % 05/22/2024 2:39 PM CDT [facility] ABS. NEUTROPHILS 2.65 1.60 - 8.30 x10'3/uL 05/22/2024 2:39 PM CDT [facility] ABS. LYMPHOCYTES 2.33 0.80 - 4.70 x10'3/uL 05/22/2024 2:39 PM CDT [facility] ABS. MONOCYTES 0.44 0.00 - 1.50 x10'3/uL 05/22/2024 2:39 PM CDT [facility] ABS. EOSINOPHILS 0.08 0.00 - 0.40 x10'3/uL 05/22/2024 2:39 PM CDT [facility] ABS. BASOPHILS 0.05 0.00 - 0.20 x10'3/uL 05/22/2024 2:39 PM CDT [facility] ABS. IMMATURE GRANULOCYTES 0.00 0.00 - 0.03 x10'3/uL 05/22/2024 2:39 PM CDT [facility] ABS. NUCLEATED RBC'S 0.00 0.00 - 0.01 x10'3/uL 05/22/2024 2:39 PM CDT [facility] 05/22/2024 2:11 PM CDT us Rayna Irving NP LABORATORY Final Result [facility] [address] [place], [place] [address] [phone] * (ABNORMAL) COMPREHENSIVE METABOLIC PANEL (05/22/2024 2:11 PM CDT) SODIUM S/P/B 136 136 - 145 MMOL/L 05/22/2024 3:00 PM CDT [facility] POTASSIUM S/P/B 5.2(H) 3.5 - 5.1 MMOL/L 05/22/2024 3:00 PM CDT [facility] CHLORIDE S/P/B 98 98 - 107 MMOL/L 05/22/2024 3:00 PM CDT [facility] CO2 30.3 21.0 - 32.0 MMOL/L 05/22/2024 3:00 PM CDT [facility] GLUCOSE 174(H) 70 - 99 MG/DL 05/22/2024 3:00 PM CDT [facility] Comment: FASTING GLUCOSE 100 TO 125 MG/DL IS CONSISTENT WITH IMPAIRED FASTING GLUCOSE. FASTING GLUCOSE >125 MG/DL IS CONSISTENT WITH DIABETES. RANDOM GLUCOSE >200 MG/DL WITH HYPERGLYCEMIC SYMPTOMS IS CONSISTENT WITH DIABETES. PER ADA GUIDELINES BUN 21 6 - 24 MG/DL 05/22/2024 3:00 PM CDT [facility] CREATININE S/P/B 0.98 0.55 - 1.02 MG/DL 05/22/2024 3:00 PM CDT [facility] CALCIUM S/P/B 9.5 8.4 - 10.5 MG/DL 05/22/2024 3:00 PM CDT [facility] BILIRUBIN TOTAL S/P/B 0.5 0.2 - 1.0 MG/DL 05/22/2024 3:00 PM CDT [facility] Comment: THIS ASSAY IS NOT RECOMMENDED FOR PATIENTS UNDERGOING TREATMENT WITH ELTROMBOPAG DUE TO THE POTENTIAL FOR FALSELY ELEVATED RESULTS. ALKALINE PHOSPHATASE S/P/B 120(H) 37 - 98 U/L 05/22/2024 3:00 PM CDT [facility] AST 26 15 - 37 U/L 05/22/2024 3:00 PM CDT [facility] ALT 44 14 - 59 U/L 05/22/2024 3:00 PM CDT [facility] TOTAL PROTEIN S/P/B 8.2 6.4 - 8.2 G/DL 05/22/2024 3:00 PM CDT [facility] ALBUMIN S/P/B 4.0 3.4 - 5.0 G/DL 05/22/2024 3:00 PM CDT [facility] ANION GAP 7.7 5.0 - 15.0 MMOL/L 05/22/2024 3:00 PM CDT [facility] OSMOLALITY (CALC) 289 MOSM/KG 024 3:00 PM CDT [facility] Comment:REFERENCE RANGE NOT ESTABLISHED GFR ESTIMATE 77(L) >89 ML/MIN/1. 73 M2 05/22/2024 3:00 PM CDT [facility] GFR NOTES GFR REFERENCE S: 05/22/2024 3:00 PM CDT [facility] Comment: THE ESTIMATED GFR IS CALCULATED [...] us Rayna Irving NP LABORATORY Final Result [facility] [address] [place] [address], * THYROXINE, FREE (FT4) (05/22/2024 2:11 PM CDT) FREE T4 0.93 0.76 - 1.46 NG/DL 05/22/2024 3:00 PM CDT [facility] 05/22/2024 2:11 PM CDT Rayna Irving NP LABORATORY Final Result Performing Organization Address [facility] Co de Phone Number [facility] [address] [place] [address], * (ABNORMAL) THYROID STIM HORMONE TSH (05/22/2024 2:11 PM CDT) TSH 6.564(H) 0.358 - 3.740 uIU/ML 05/22/2024 3:00 PM CDT [facility] Comment: ASSAY PERFORMED BY CHEMILUMINESCENT IMMUNOASSAY METHODOLOGY USING SIEMENS DIMENSION REAGENT. PATIENT RESULTS DETERMINED BY ASSAYS FROM DIFFERENT MANUFACTURERS AND/OR BY DIFFERENT METHODS MAY NOT BE COMPARABLE. 05/22/2024 2:11 PM CDT Rayna Irving NP LABORATORY Final Result Performing Organization Address [facility] de Phone Number [facility] [address] [place] [address], documented in this encounter Visit Diagnoses Diagnosis Hypothyroidism Unspecified hypothyroidism Hematemesis Acute upper respiratory infection Acute upper respiratory infections of unspecified site documented in this encounter Additional Health Concerns Infection Onset Date Last Indicated Resolved Time COVID-19 Rule Out 05/22/2024 05/22/2024 05/23/2024 2:08 PM CDT documented as of this encounter Care Teams Lockstitch Front Edge Tape Sewer Relationship Specialty Start Date End Date Renee Hernandez MD [address] [place] [address] PCP - General FAMILY PRACTICE 03/19/21 documented as of this encounter
--- OUTSIDE RECORDS SUMMARY | 2024-08-03 02:08 | XMS_ITS | Encounter Summary ---
Author Organization [facility] Address [address] [place] [address]. [place] [address] [place] [address] Care Team Providers Care Cdl Company Driver Name Role Phone Renee Hernandez MD Primary Care Provider [phone] Reason for Visit * Reason Comments Vomiting Weakness Encounter Details Date Type Department Care Team ([facility] st Contact Info) Description 03/19/2021 12:11 PM CDT - 03/19/2021 4:12 PM CDT [facility] [address] [place] [address] [place] [address] Bernardo Gale MD [address] [place] [phone] Vomiting; Weakness Discharge Disposition: Home or Self [...] this encounter Discharge Instructions * Discharge Instructions* Beranrdo Gale MD - 03/19/2021 4:06 PM CDT Rest, stay well-hydrated. Add Pedialyte or Gatorade for fluids. Use medication as prescribed. Closefollow-up with primary care-call for appointment. Return to the ER for any worsening symptoms or concerns. * Attachments The following attachments cannot be sent through Care Everywhere. * Nausea and Vomiting Discharge Instructions, Adult (Burundian) documented in this encounter Medications at Time [...] COLOR (U) YELLOW TRANSPARENCY SLIGHTLY CLOUDY Specific Gilman (U) 1.030 (H) 1.000 - 1.025 U [...] Value Ref Range PREG TEST NEGATIVE Specific Gilman (U) >1.030 LIPASE Result Value Ref Range [...] ONSET [id number] HOSPITALIZATION STATUS NO RESIDENT OF [facility] CARE NO UNKNOWN IMAGING STUDIES XR ABD SERIES W CHEST 1V Final Result by User, [id number] (03/19 8739) Examination: XR ABD SERIES W CHEST 1V [...] * POCT glucose (03/19/2021 2:45 PM CDT) [facility] GLUCOSE POC 71 70 - 99 MG/DL 03/19/2021 2:47 PM CDT [facility] 03/19/2021 2:45 PM CDT Bernardo Gale MD POCT ORDERABLES - DEVICE Fi nal Result [facility] [address] [place] [address], [place] [phone] * CULTURE URINE (03/19/2021 1:25 PM CDT) [facility] SPEC DESCRIPTION URINE CLEAN CATCH 03/19/2021 1:44 PM CDT [facility] SPECIAL REQUESTS NO SPECIAL REQUEST 03/19/2021 1:44 PM CDT [facility] CULTURE RESULT FEW CONTAMINANTS 02/21 3:33 PM CDT [facility] URINE SPECIMEN OBTAINED BY CLEAN CATCH PROCEDURE / Unknown 03/19/2021 1:25 PM CDT 03/19/2021 1:44 PM CDT us Bernardo Gale MD [facility] Final Result Performing Organization Address [facility] de Phone Number [facility] [address] [place] [address], [id number] [facility] [address] [place] [address], * TEST URINE (03/19/2021 1:25 PM CDT) PREG TEST NEGATIVE 03/19/2021 1:40 PM CDT [facility] SPECIFIC GRAVITY (U) >1.030 03/19/2021 1:40 PM CDT [facility] URINE SPECIMEN OBTAINED BY CLEAN CATCH PROCEDURE / Unknown 03/19/2021 1:25 PM CDT us Bernardo Gale MD URINE ORDERABLES Final Resu lt Performing Organization Address [facility] de Phone Number [facility] [address] [place] [address], * (ABNORMAL) URINALYSIS WI REFLEX TO CULTURE (03/19/2021 1:25 PM CDT) COLOR (U) YELLOW 03/19/2021 1:43 PM CDT [facility] TRANSPARENCY SLIGHTLY CLOUDY 03/19/2021 1:43 PM CDT [facility] SPECIFIC GRAVITY (U) 1.030(H) 1.000 - 1.025 03/19/2021 1:43 PM CDT [facility] Comment:EQUAL TO OR GREATER THAN U PH 5.5 5.0 - 8.0 03/19/2021 1:43 PM CDT [facility] LEUKOCYTES (U) NEGATIVE NEGATIVE 03/19/2021 1:43 PM CDT [facility] NITRITES NEGATIVE NEGATIVE 03/19/2021 1:43 PM CDT [facility] PROTEIN (U) 1+(A) NEGATIVE 03/19/2021 1:43 PM CDT [facility] URINE GLUCOSE NEGATIVE NEGATIVE 03/19/2021 1:43 PM CDT [facility] KETONES MG/DL (U) 4+(A) NEGATIVE 03/19/2021 1:43 PM CDT [facility] UROBILINOGEN 1.0(H) <1.0 EU/DL 03/19/2021 1:43 PM CDT [facility] BLOOD (U) TRACE(A) NEGATIVE 03/19/2021 1:43 PM CDT [facility] WBC/HPF 5-10(A) 0 - 5 /HPF 03/19/2021 1:43 PM CDT [facility] RBC/HPF 5-10(A) 0 - 5 /HPF 03/19/2021 1:43 PM CDT [facility] EPI/HPF FEW /LPF 03/19/2021 1:43 PM CDT [facility] BACTERIA (U) 3+ /HPF 03/19/2021 1:43 PM CDT [facility] MUCUS PRESENT 03/19/2021 1:43 PM CDT [facility] OTHER CASTS (U) HYALINE /LPF 1:43 PM CDT [facility] Comment:50-100 BILIRUBIN (U) POSITIVE(A) NEGATIVE 03/19/2021 1:43 PM CDT [facility] CULTURE & SENSITIVITY INDICATED? SPECIMEN SETUP FOR CULTURE 03/19/2021 1:43 PM CDT [facility] URINE SPECIMEN OBTAINED BY CLEAN CATCH PROCEDURE / Unknown 03/19/2021 1:25 PM CDT us Bernardo Gale MD URINE ORDERABLES Final Resu lt [facility] [address] [place] [address], * CORONAVIRUS (COVID-19) ANTIGEN DIRECT OPTICAL (03/19/2021 12:38 PM CDT) CORONAVIRUS ANTIGEN IA NEGATIVE NEGATIVE 03/19/2021 1:11 PM CDT [facility] Comment: NEGATIVE RESULTS DO NOT RULE [...] SPECIMEN TYPE NASAL 03/19/2021 12:48 PM CDT [facility] FIRST TEST YES 03/19/2021 12:48 PM CDT [facility] EMPLOYED IN HEALTHCARE NO 03/19/2021 12:48 PM CDT [facility] SYMPTOMATIC DEFINED BY CDC YES 03/19/2021 12:48 PM CDT [facility] DATE OF SYMPTOM ONSET [id number]/19/2021 12:48 PM CDT [facility] HOSPITALIZATION STATUS NO 03/19/2021 12:48 PM CDT [facility] NO 03/19/2021 12:48 PM CDT [facility] UNKNOWN 03/19/2021 12:48 PM CDT [facility] Specimen from nose (specimen) NASAL STRUCTURE / Unknown 03/19/2021 12:38 PM CDT Bernardo Gale MD MICROBIOLOGY - GENERAL SIA ARMENTA Final Result [facility] [address] [place] [address], * LIPASE (03/19/2021 12:21 PM CDT) LIPASE 75 73 - 393 UNITS/L 03/19/2021 2:18 PM CDT [facility] 03/19/2021 12:2 1 PM CDT us Bernardo Gale MD LABORATORY Final Resul t Performing Organization Address [facility]/ZIP Co de Phone Number [facility] [address] [place] [address], * (ABNORMAL) BETA-HYDROXYBUTYRATE (03/19/2021 12:21 PM CDT) BETA-HYDROXYBU TYRATE 4.1(H) 0.0 - 0.3 MMOL/L 03/19/2021 12:33 PM CDT [facility] 03/19/2021 12:2 1 PM CDT us Bernardo Gale MD LABORATORY Final Resul t Performing Organization Address [facility] Co de Phone Number [facility] [address] [place] [address], * (ABNORMAL) Blood gas, venous (03/19/2021 12:21 PM CDT) O2 SAT VENOUS 46 40 - 70 % 03/19/2021 12:35 PM CDT [facility] PH VENOUS 7.38 7.35 - 7.45 03/19/2021 12:35 PM CDT [facility] PCO2 VENOUS 40.9(L) 41.0 - 51.0 MMHG 03/19/2021 12:35 PM CDT [facility] PO2 VENOUS 27.0 20.0 - 40.0 MM HG 03/19/2021 12:35 PM CDT [facility] BASE DEFICIT VENOUS 0.9 MMOL/L 03/19/2021 12:35 PM CDT [facility] BICARB VENOUS 23.6 22.0 - 29.0 MMOL/L 03/19/2021 12:35 PM CDT [facility] TCO2 24.9(L) 25.0 - 29.0 MMOL/L 03/19/2021 12:35 PM CDT [facility] LITER FLOW ROOM AIR 03/19/2021 12:34 PM CDT [facility] Blood specimen (specimen) 03/19/2021 12:21 PM CDT us Bernardo Gale MD LABORATORY Final Resul t [facility] [address] [place] [address], * (ABNORMAL) COMPREHENSIVE METABOLIC PANEL (03/19/2021 12:21 PM CDT) SODIUM S/P/B 133(L) 136 - 145 MMOL/L 03/19/2021 12:54 PM CDT [facility] POTASSIUM S/P/B 4.5 3.5 - 5.1 MMOL/L 03/19/2021 12:54 PM CDT [facility] CHLORIDE S/P/B 96(L) 98 - 107 MMOL/L 03/19/2021 12:54 PM CDT [facility] CO2 24.5 21.0 - 32.0 MMOL/L 03/19/2021 12:54 PM CDT [facility] GLUCOSE 152(H) 70 - 99 MG/DL 03/19/2021 12:54 PM CDT [facility] Comment: FASTING GLUCOSE 100 TO 125 MG/DL IS CONSISTENT WITH IMPAIRED FASTING GLUCOSE. FASTING GLUCOSE >125 MG/DL IS CONSISTENT WITH DIABETES. RANDOM GLUCOSE >200 MG/DL WITH HYPERGLYCEMIC SYMPTOMS IS CONSISTENT WITH DIABETES. PER ADA GUIDELINES BUN 20 6 - 24 MG/DL 03/19/2021 12:54 PM CDT [facility] CREATININE S/P/B 1.02 0.55 - 1.02 MG/DL 03/19/2021 12:54 PM CDT [facility] CALCIUM S/P/B 9.3 8.4 - 10.5 MG/DL 03/19/2021 12:54 PM [facility] BILIRUBIN TOTAL S/P/B 0.9 0.2 - 1.0 MG/DL 03/19/2021 12:54 PM [facility] Comment: THIS ASSAY IS NOT RECOMMENDED FOR PATIENTS UNDERGOING TREATMENT WITH ELTROMBOPAG DUE TO THE POTENTIAL FOR FALSELY ELEVATED RESULTS. ALKALINE PHOSPHATASE S/P/B 123(H) 37 - 98 U/L 03/19/2021 12:54 PM [facility] AST 16 15 - 37 U/L 03/19/2021 12:54 PM [facility] ALT 21 14 - 59 U/L 03/19/2021 12:54 PM [facility] TOTAL PROTEIN S/P/B 8.9(H) 6.4 - 8.2 G/DL 03/19/2021 12:54 PM [facility] ALBUMIN S/P/B 4.4 3.4 - 5.0 G/DL 03/19/2021 12:54 PM [facility] ANION GAP 12.5 5.0 - 15.0 MMOL/L 03/19/2021 12:54 PM [facility] OSMOLALITY (CALC) 282 MOSM/KG 021 12:54 PM [facility] Comment:REFERENCE RANGE NOT ESTABLISHED EGFR NON-AFR. AMER. 73(L) >89 ML/MIN/1. 73 M2 03/19/2021 12:54 PM [facility] EGFR AFR. AMER. 84(L) >89 ML/MIN/1. 73 M2 03/19/2021 12:54 PM [facility] GFR NOTES GFR REFERENCE S: 03/19/2021 12:54 PM [facility] Comment: THE ESTIMATED GFR IS CALCULATED [...] Bernardo Gale MD LABORATORY Final Resul t [facility] [address] [place] [address], * CBC W/DIFF AUTOMATED (03/19/2021 12:21 PM CDT) WBC 7.8 4.0 - 10.8 x10'3/uL 03/19/2021 12:32 PM CDT [facility] RBC 4.53 4.10 - 5.40 x10'6/uL 03/19/2021 12:32 PM CDT [facility] HGB 13.6 12.0 - 16.0 G/DL 03/19/2021 12:32 PM CDT [facility] HCT 41.0 36.0 - 47.0 % 03/19/2021 12:32 PM CDT [facility] MCV 90.5 78.0 - 100.0 FL 03/19/2021 12:32 PM CDT [facility] MCH 30.0 27.0 - 31.0 PG 03/19/2021 12:32 PM CDT [facility] MCHC 33.2 33.0 - 36.0 G/DL 03/19/2021 12:32 PM CDT [facility] RDW 12.3 11.5 - 14.5 % 03/19/2021 12:32 PM CDT [facility] PLT 281 150 - 350 x10'3/uL 03/19/2021 12:32 PM CDT [facility] MPV 9.8 7.4 - 10.4 FL 03/19/2021 12:32 PM CDT [facility] DIFFERENTIAL COMMENT NORMAL REFERENCE RANGE NOT ESTABLISHED FOR THE PROPORTIONAL LEUKOCYTE DIFFERENTIAL. 03/19/2021 12:32 PM CDT [facility] SEG NEUTROPHILS 60.6 % 12:32 PM CDT [facility] LYMPHOCYTES 30.2 % 03/19/2021 12:32 PM CDT [facility] MONOCYTES 7.5 % 03/19/2021 12:32 PM CDT [facility] EOSINOPHILS 0.8 % 03/19/2021 12:32 PM CDT [facility] BASOPHILS 0.8 % 03/19/2021 12:32 PM CDT [facility] IMMATURE GRANS % 0.1 % 03/19/20 12:32 PM CDT [facility] NRBC 0.0 % 03/19/2021 12:32 PM CDT [facility] ABS. NEUTROPHILS 4.71 1.60 - 8.30 x10'3/uL 03/19/2021 12:32 PM CDT [facility] ABS. LYMPHOCYTES 2.35 0.80 - 4.70 x10'3/uL 03/19/2021 12:32 PM CDT [facility] ABS. MONOCYTES 0.58 0.00 - 1.50 x10'3/uL 03/19/2021 12:32 PM CDT [facility] ABS. EOSINOPHILS 0.06 0.00 - 0.40 x10'3/uL 03/19/2021 12:32 PM CDT [facility] ABS. BASOPHILS 0.06 0.00 - 0.20 x10'3/uL 03/19/2021 12:32 PM CDT [facility] ABS. IMMATURE GRANULOCYTES 0.01 0.00 - 0.03 x10'3/uL 03/19/2021 12:32 PM CDT [facility] ABS. NUCLEATED RBC'S 0.00 0.00 x10'3/uL 03/19/2021 12:32 PM CDT [facility] 03/19/2021 12:2 1 PM CDT us Bernardo Gale MD LABORATORY Final Resul t [facility] [address] [place] [address], [place] [phone] * (ABNORMAL) POCT glucose (03/19/2021 12:17 PM CDT) GLUCOSE POC 136(H) 70 - 99 MG/DL 03/19/2021 12:23 PM CDT [facility] 03/19/2021 12:1 7 PM CDT us Bernadro Gale MD POCT ORDERABLES - DEVICE Fi nal Result Performing Organization Address [facility] Co de Phone Number [facility] [place] [address], [place] [phone] documented in this encounter Visit Diagnoses Diagnosis [...] documented as of this encounter Care Teams [employer] Driver Relationship Specialty Start Date End Date Renee Hernandez MD [address] [place] [id number] PCP - General FAMILY PRACTICE 03/19/21 documented as of this encounter
--- OUTSIDE RECORDS SUMMARY | 2024-08-03 02:08 | XMS_ITS | Encounter Summary ---
Author Organization [facility] Address [facility] [place] [address] [place] [address] Care Team Providers Care Skin Pass Operator Name Role Phone Renee Hernandez MD Primary Care Provider [phone] Encounter Details Date Type Department Care Team (Late st Contact Info) Description 05/22/2024 Orders Only [facility] [address] [email or web address] [address] Rayna Irving NP [address] [place] [address] Social History Tobacco Use Types [...] DETECTED NOT DETECTED 05/23/2024 2:08 PM CDT [facility] CORONAVIRUS 229E PCR (RESP) NOT DETECTED NOT DETECTED 05/23/2024 2:08 PM CDT [facility] CORONAVIRUS HKU1 PCR (RESP) NOT DETECTED NOT DETECTED 05/23/2024 2:08 PM CDT [facility] CORONAVIRUS NL63 PCR (RESP) NOT DETECTED NOT DETECTED 05/23/2024 2:08 PM CDT [facility] CORONAVIRUS OC43 PCR (RESP) NOT DETECTED NOT DETECTED 05/23/2024 2:08 PM CDT [facility] METAPNEUMOVIRUS PCR (RESP) NOT DETECTED NOT DETECTED 05/23/2024 2:08 PM CDT [facility] RHINOVIRUS/ENTEROV IRUS PCR (RESP) NOT DETECTED NOT DETECTED 05/23/2024 2:08 PM CDT [facility] INFLUENZA A PCR (RESP) NOT DETECTED NOT DETECTED 05/23/2024 2:08 PM CDT [facility] INFLUENZA B PCR (RESP) NOT DETECTED NOT DETECTED 05/23/2024 2:08 PM CDT [facility] PARAINFLUENZA 1 PCR (RESP) NOT DETECTED NOT DETECTED 05/23/2024 2:08 PM CDT [facility] PARAINFLUENZA 2 PCR (RESP) NOT DETECTED NOT DETECTED 05/23/2024 2:08 PM CDT [facility] PARAINFLUENZA 3 PCR (RESP) NOT DETECTED NOT DETECTED 05/23/2024 2:08 PM CDT [facility] PARAINFLUENZA 4 PCR (RESP) NOT DETECTED NOT DETECTED 05/23/2024 2:08 PM CDT [facility] RSV PCR (RESP) NOT DETECTED NOT DETECTED 05/23/2024 2:08 PM CDT [facility] B PARAPERTUSIS PCR (RESP) NOT DETECTED NOT DETECTED 05/23/2024 2:08 PM CDT [facility] BORDETELLA PERTUSSIS PCR (RESP) NOT DETECTED NOT DETECTED 05/23/2024 2:08 PM CDT [facility] CHLAMYDOPHILA PNEUMONIAE PCR (RESP) NOT DETECTED NOT DETECTED 05/23/2024 2:08 PM CDT [facility] MYCOPLASMA PNEUMONIAE PCR (RESP) NOT DETECTED NOT DETECTED 05/23/2024 2:08 PM CDT [facility] CORONAVIRUS SARS COV 2 PCR (RESP) NOT DETECTED NOT DETECTED 05/23/2024 2:08 PM CDT [facility] NASOPHARYNGEAL SWAB / Unknown 05/22/2024 2:11 PM CDT Rayna Irving SHEET ROCK APPLICATOR MICROBIOLOGY - GENERAL ORDERABLE S Final Result [facility] [address] [place] [address], [id number] documented in this encounter Visit Diagnoses Diagnosis Acute upper respiratory infection- Primary Acute upper respiratory infections of unspecified site documented in this encounter Care Teams Skin Pass Operator Relationship Specialty Start Date End Date Renee Hernandez MD [address] [place] [address] PCP - General FAMILY PRACTICE 03/19/21 documented as of this encounter
--- OUTSIDE RECORDS SUMMARY | 2024-08-03 02:08 | XMS_ITS | Encounter Summary ---
Author Organization [facility] Address [facility] [place] [address] [place] [address] Care Team Providers Care Estimating Engineer Name Role Phone Rodri Hernandez MD Primary Care Provider [phone] Reason for Referral * Imaging (Emergency) - Closed Specialty Diagnoses / Procedures Referred By Sanyaac marie Referred To Contact RADIOLOGY Diagnoses Acute abdominal pain Procedures CT ABD+PEL WO CON Rodri Hernandez MD [address] [place] [address] Phone: tel: fax: Referral ID Status Reason Start Date Expiration Date Visits Re quested Visits Authorized [id number] Closed 07/29/2021 07/29/2022 1 1 OW DECORATOR Reason for Visit * Imaging (Emergency) - Closed Specialty Diagnoses / Procedures Referred By Alexis salazar Referred To Contact RADIOLOGY Diagnoses Acute abdominal pain Procedures CT ABD+PEL WO CON Rodri Hernandez MD [address] [place] [address] Phone: tel: fax: Referral ID Status Reason Start Date Expiration Date Visits Re quested Visits Authorized [id number] Closed 07/29/2021 07/29/2022 1 1 Encounter Details Date Type Department Care Team (Late st Contact Info) Description 07/29/2021 11:00 AM WINDOW DECORATOR - 07/29/2021 11:24 AM WINDOW DECORATOR Hospital Encounter [facility] [address] [place] [address] Rodri Hernandez MD [address] [place] [address] Discharge Disposition: Home or Self Care (Routine [...] COVID-19? No / Unsure 07/29/2021 11:22 AM WINDOW DECORATOR documented as of this encounter Medications at [...] WO CON STAT 07/29/2021 11: 34 AM WINDOW DECORATOR Acute abdominal pain documented in this encounter Results * CT ABD+PEL WO CON (07/29/2021 11:34 AM WINDOW DECORATOR) Anatomical Region Laterality Modality Abdomen Computed Tomogra phy 07/29/2021 11:5 2 AM WINDOW DECORATOR Impressions 07/29/2021 12:07 PM WINDOW DECORATOR IMPRESSION: 1. No definite acute CT findings [...] 07/29/2021 11:52 AM Narrative 07/29/2021 12:07 PM WINDOW DECORATOR Examination: CT ABD+PEL WO CON, 07/29/2021 11:53 [...] site documented in this encounter Care Teams Estimating Engineer Relationship Specialty Start Date End Date Rodri Hernandez MD [address] [facility] [place] [address] PCP - General FAMILY PRACTICE 03/19/21 documented as of this encounter
--- OUTSIDE RECORDS SUMMARY | 2024-08-03 02:08 | XMS_ITS | Encounter Summary ---
Author Organization [facility] Address [address] [place] [address]. [place] [address] [place] [address] Care Team Providers Care Mild Disabilities Teacher Name Role Phone Renee Hernandez MD Primary Care Provider [phone] Encounter Details Date Type Department Care Team [...] documented as of this encounter Care Teams Mild Disabilities Teacher Relationship Specialty Start Date End Date Renee Hernandez MD [address] [place] [address] [place] [address] PCP - General FAMILY PRACTICE 03/19/21 documented as of this encounter
--- OUTSIDE RECORDS SUMMARY | 2024-08-03 02:09 | XMS_ITS | Encounter Summary ---
Author Organization [facility] Address [address] [place] [address]. [place] [address] [place] [address] Care Team Providers Care Optician Manager Name Role Phone Isaias Grier MD Primary Care Provider Reason for Visit * Reason Comments Medical Problem Encounter Details Date Type Department Care Team (Late st Contact Info) Description 10/10/2019 4:22 PM CDT - 10/10/2019 7:03 PM CDT Emergency [facility] [facility] [address] Antonia Ambriz, DO [address] [place] [address] Medical Problem Discharge Disposition: Home or Self [...] Everywhere. * Acute Bronchitis Discharge Instructions, Adult (Spanish) * Smoking: Not Just Harmful to Your Lungs and Heart (Spanish) documented in this encounter Medications at Time [...] MINI PEN NEEDLES 31G X 5 MM [facility] USE FOR INJECTIONS FOUR TIMES A DAY [...] XR CHEST PA+LAT Final Result by User, [email or web address] (10/09 1800) Date: 10/10/2019 5:51 PM Exam: [...] of 10/10/2019 6:59 PM Isaias Grier MD [address] [place] [phone] In 1 week If symptoms not improving [...] - 99 MG/DL 10/10/2019 6:15 PM CDT [facility] ORDERS INTERFACE 10/10/2019 6:14 PM CDT us Antonia Ambriz DO POCT ORDERABLES - DEVICE Final R esult [facility] ORDERS INTERFACE US * XR CHEST [...] DESCRIPTION NASOPHARYNGEAL SWAB 10/10/2019 5:07 PM CDT [facility] SPECIAL REQUESTS NO SPECIAL REQUEST 10/10/2019 5:07 PM CDT [facility] RESULT NEGATIVE 10/10/2019 5:44 PM CDT [facility] RESULT A NEGATIVE RESULT DOES NOT EXCLUDE INFLUENZA VIRUS INFECTION. ??IF INFLUENZA IS CIRCULATING IN YOUR COMMUNITY, A DIAGNOSIS OF INFLUENZA SHOULD BE CONSIDERED BASED ON A PATIENT'S CLINICAL PRESENTATION AND EMPIRIC ANTIVIRAL TREATMENT SHOULD BE CONSIDERED IF INDICATED. 10/10/2019 5:44 PM CDT [facility] NASOPHARYNGEAL SWAB / Unknown 10/10/2019 5:20 PM CDT 10/10/2019 5:23 PM CDT us Antonia Ambriz DO MICROBIOLOGY - GENERAL ORDERABLE S Final Result [facility] [address] [place] [address], * HCG QUANT (SERUM)-CHORIONIC GONADOTROPIN (10/10/2019 5:07 PM CDT) HCG QUANTITATIVE <1 0.0 - 6.0 MIU/ML 10/10/2019 5:34 PM CDT [facility] Comment:NON- FEMALE 0-6 10/10/2019 5:07 PM CDT Antonia Ambriz DO LABORATORY Final Result [facility] [address] [employer] [place] [address], * (ABNORMAL) COMPREHENSIVE METABOLIC PANEL (10/10/2019 5:07 PM CDT) SODIUM S/P/B 134(L) 136 - 145 MMOL/L 10/10/2019 5:34 PM CDT [facility] POTASSIUM S/P/B 4.5 3.5 - 5.1 MMOL/L 10/10/2019 5:34 PM CDT [facility] CHLORIDE S/P/B 99 98 - 107 MMOL/L 10/10/2019 5:34 PM CDT [facility] CO2 24.4 21.0 - 32.0 MMOL/L 10/10/2019 5:34 PM CDT [facility] GLUCOSE 420(H) 70 - 99 MG/DL 10/10/2019 5:34 PM CDT [facility] Comment: FASTING GLUCOSE 100 TO 125 MG/DL IS CONSISTENT WITH IMPAIRED FASTING GLUCOSE. FASTING GLUCOSE >125 MG/DL IS CONSISTENT WITH DIABETES. RANDOM GLUCOSE >200 MG/DL WITH HYPERGLYCEMIC SYMPTOMS IS CONSISTENT WITH DIABETES. PER ADA GUIDELINES BUN 18 6 - 24 MG/DL 10/10/2019 5:34 PM CDT [facility] CREATININE S/P/B 1.17(H) 0.55 - 1.02 MG/DL 10/10/2019 5:34 PM CDT [facility] CALCIUM S/P/B 8.3(L) 8.4 - 10.5 MG/DL 10/10/2019 5:34 PM CDT [facility] BILIRUBIN TOTAL S/P/B 0.2 0.2 - 1.0 MG/DL 10/10/2019 5:34 PM CDT [facility] Comment: THIS ASSAY IS NOT RECOMMENDED FOR PATIENTS UNDERGOING TREATMENT WITH ELTROMBOPAG DUE TO THE POTENTIAL FOR FALSELY ELEVATED RESULTS. ALKALINE PHOSPHATASE S/P/B 114(H) 37 - 98 U/L 10/10/2019 5:34 PM T [facility] AST 11(L) 15 - 37 U/L 10/10/2019 5:34 PM [facility] ALT 25 14 - 59 U/L 10/10/2019 5:34 PM [facility] TOTAL PROTEIN S/P/B 7.0 6.4 - 8.2 G/DL 10/10/2019 5:34 PM [facility] ALBUMIN S/P/B 3.3(L) 3.4 - 5.0 G/DL 10/10/2019 5:34 PM [facility] ANION GAP 10.6 5.0 - 15.0 MMOL/L 10/10/2019 5:34 PM T [facility] OSMOLALITY (CALC) 298 MOSM/KG 020 5:34 PM [facility] Comment:REFERENCE RANGE NOT ESTABLISHED EGFR NON-AFR. AMER. 62(L) >89 ML/MIN/1. 73 M2 10/10/2019 5:34 PM [facility] EGFR AFR. AMER. 72(L) >89 ML/MIN/1. 73 M2 10/10/2019 5:34 PM [facility] GFR NOTES GFR REFERENCE S: 10/10/2019 5:34 PM [facility] Comment: THE ESTIMATED GFR IS CALCULATED [...] us Antonia Ambriz DO LABORATORY Final Result [facility] [address] [employer] [place] [place] [address], * (ABNORMAL) CBC W/DIFF AUTOMATED (10/10/2019 5:07 PM CDT) WBC 7.3 4.5 - 10.8 x10'3/uL 10/10/2019 5:31 PM CDT [facility] RBC 4.02(L) 4.10 - 5.40 x10'6/uL 10/10/2019 5:31 PM CDT [facility] HGB 12.4 12.0 - 16.0 G/DL 10/10/2019 5:31 PM CDT [facility] HCT 36.5 36.0 - 47.0 % 10/10/2019 5:31 PM CDT [facility] MCV 90.8 78.0 - 100.0 FL 10/10/2019 5:31 PM CDT [facility] MCH 30.8 27.0 - 31.0 PG 10/10/2019 5:31 PM CDT [facility] MCHC 34.0 33.0 - 36.0 G/DL 10/10/2019 5:31 PM CDT [facility] RDW 12.3 11.5 - 14.5 % 10/10/2019 5:31 PM CDT [facility] PLT 251 150 - 350 x10'3/uL 10/10/2019 5:31 PM CDT [facility] MPV 10.2 7.4 - 10.4 FL 10/10/2019 5:31 PM CDT [facility] DIFFERENTIAL COMMENT NORMAL REFERENCE RANGE NOT ESTABLISHED FOR THE PROPORTIONAL LEUKOCYTE DIFFERENTIAL. 10/10/2019 5:31 PM CDT [facility] SEG NEUTROPHILS 87 % 0 5:39 PM CDT [facility] LYMPHOCYTES 8 % 10/10/2019 5:39 PM CDT [facility] MONOCYTES 4 % 10/10/2019 5:39 PM CDT [facility] EOSINOPHILS 1 % 10/10/2019 5:39 PM CDT [facility] ABS. NEUTROPHILS CALCULATED 6.36 1.60 - 8.30 x10'3/uL 10/10/2019 5:39 PM CDT [facility] ABS. LYMPHOCYTES 0.58(L) 0.80 - 4.70 x10'3/uL 10/10/2019 5:39 PM CDT [facility] ABS. MONOCYTES 0.29 0.10 - 1.50 x10'3/uL 10/10/2019 5:39 PM CDT [facility] ABS. EOSINOPHILS 0.07 0.00 - 0.40 x10'3/uL 10/10/2019 5:39 PM CDT [facility] PLT MORPH. NORMAL 10/10/2019 5:39 PM CDT [facility] RBC MORPHOLOGY NORMAL 10/10/2019 5:39 PM CDT [facility] 10/10/2019 5:07 PM CDT us Antonia Ambriz DO LABORATORY Final Result [facility] [address] [place] [address], * STREP A, DNA (10/10/2019 5:00 PM CDT) SPEC DESCRIPTION THROAT 10/10/2019 5:30 PM CDT [facility] SPECIAL REQUESTS NO SPECIAL REQUEST 10/10/2019 5:30 PM CDT [facility] RESULT NEGATIVE 10/10/2019 6:33 PM CDT [facility] THROAT SWAB / Unknown 10/10/2019 5:00 PM CDT 10/10/2019 5:30 PM CDT us Antonia Ambriz DO MICROBIOLOGY - GENERAL ORDERABLE S Final Result [facility] [address] [place] [address], * RAPID STREP A (10/10/2019 5:00 PM CDT) SPEC DESCRIPTION THROAT 10/10/2019 5:07 PM CDT [facility] SPECIAL REQUESTS NO SPECIAL REQUEST 10/10/2019 5:07 PM CDT [facility] RAPID STREP TEST NEGATIVE 10/10/2019 5:30 PM CDT [facility] THROAT SWAB / Unknown 10/10/2019 5:00 PM CDT 10/10/2019 5:12 PM CDT Antonia Ambriz DO MICROBIOLOGY - GENERAL ORDERABLE S Final Result [facility] [address] [place] [address], documented in this encounter Visit Diagnoses Diagnosis Acute bronchitis- Primary Tobacco abuse Tobacco use disorder documented in this encounter Care Teams Optician Manager Relationship Specialty Start Date End Date Isaias Grier MD [address] [place] [phone] PCP - General FAMILY PRACTICE 01/29/19 03/18/21 documented as of this encounter
--- OUTSIDE RECORDS SUMMARY | 2024-08-03 02:09 | XMS_ITS | Encounter Summary ---
Author Organization [facility] Address [facility] [facility]. [place], [place] [address] [place] [address] Care Team Providers Care Insolvency Practitioner Name Role Phone Isaias Grier MD Primary Care Provider [phone] Encounter Details Date Type Department Care Team [...] on filedocumented in this encounter Care Teams Insolvency Practitioner Relationship Specialty Start Date End Date Isaias Grier MD [address] [place] [phone] PCP - General FAMILY PRACTICE 01/29/19 03/18/21 documented as of this encounter
--- OUTSIDE RECORDS SUMMARY | 2024-08-03 02:09 | XMS_ITS | Encounter Summary ---
Author Organization [facility] Address [facility] [place] [address] [place] [address] Care Team Providers Care Medical Accounts Receivable Specialist Name Role Phone Isaias Grier MD Primary Care Provider Encounter Details Date Type Department Care Team (Latest Contact Info) Description 11/26/2019 3:12 PM CDT - 11/26/2019 11:59 PM CDT Hospital Encounter [facility] [address] [place] [address] Isaias Grier MD [address] [place] [phone] Discharge Disposition: Home or Self Care [...] By: Sly Puentes MD, 11/26/2019 3:20 PM Narrative 11/26/2019 [...] Cough documented in this encounter Care Teams Medical Accounts Receivable Specialist Relationship Specialty Start Date End Date Isaias Grier MD [address] [place] [phone] PCP - General FAMILY PRACTICE 01/29/19 03/18/21 documented as of this encounter
--- OUTSIDE RECORDS SUMMARY | 2024-08-03 02:09 | XMS_ITS | Encounter Summary ---
Author Organization [facility] Address [address] [place] [address]. [place] [address] [place] [address] Care Team Providers Care Wet Mixer Name Role Phone Isaias Grier MD Primary Care Provider Reason for Visit * Reason Comments Abdominal Pain Encounter Details Date Type Department Care Team (Late st Contact Info) Description 07/27/2019 1:49 PM ROLL WRAPPER - 07/27/2019 6:53 PM ROLL WRAPPER Emergency [place] [place] [address] Antonia Ambriz, DO [address] [place] [address] Abdominal Pain Discharge Disposition: Home or Self [...] Comments Blood Pressure 93/70 07/27/2019 6:30 PM ROLL WRAPPER Pulse 86 07/27/2019 5:00 PM ROLL WRAPPER Temperature 36.3 ??C (97.4 ??F) 07/27/2019 1:53 PM CS T Respiratory Rate 16 07/27/2019 5:00 PM ROLL WRAPPER Oxygen Saturation 100% 07/27/2019 6:30 PM ROLL WRAPPER Inhaled Oxygen Concentration - - Weight 49.9 kg (110 lb) 07/27/2019 1:53 PM ROLL WRAPPER Height 165.1 cm (5' 5 ) 07/27/2019 1:53 PM ROLL WRAPPER Body Mass Index 18.3 07/27/2019 1:53 PM ROLL WRAPPER documented in this encounter Discharge Instructions * Attachments The following attachments cannot be sent through Care Everywhere. * Endometriosis Discharge Instructions (Slovak) documented in this encounter Medications at Time [...] Pt drinking bruce mist, eating saltine crackers. WRAPPER * Millie Cintron RN - 07/27/2019 5:03 PM CST Pt states she feels like her blood sugar is dropping. fsbs 112. Dr. ambriz aware. Advised to allow pt to eat. WRAPPER WRAPPER * Millie Cintron RN - 07/27/2019 4:00 PM CST Requests additional pain meds. Dr. ambriz aware. Pt advised we need lab results back before he willgive more meds. WRAPPER * Antonia Ambriz DO - 07/27/2019 2:14 [...] ??? Anxiety ??? Bronchitis ??? Diabetes mellitus ([facility]/HCC) ??? Gastrointestinal ulcer ??? GERD (gastroesophageal reflux [...] Ref Range COLOR YELLOW TRANSPARENCY CLEAR Specific [place] (U) 1.030 (H) 1.000 - 1.025 U [...] to follow-up with her primary doctors or rn occupational if pain is not controllable withthat. She [...] 9 tablet, Refills: 0 Class: Print Pharmacy: [address] (Ph #: [phone]) Isaias Grier MD [address] [place] [phone] In 3 days If symptoms not improving Zeb Worley MD [address] [facility] [address] As scheduled Disposition: Discharge Douglas Man, [...] of record. Antonia Ambriz DO 07/27/19 1838 WRAPPER * Christelle Da Silva RN - 07/27/2019 1:52 PM CST Here with abdominal pain and vomiting. Onset 3 days ago for abdominal pain. Vomiting at 4 am today. Schedule for gyny procedure 08/06/19 Pt is diabetic last FSBS 271 - has an insulin pump. WRAPPER documented in this encounter Plan of Treatment Not on file documented as of this encounter Procedures Procedure Name Priority Date/Time Associated Diagnosis Comments POCT GLUCOSE - ALARCON DOCKED DEVICE Routine 07/27/2019 5:04 PM ROLL WRAPPER URINALYSIS WI REFLEX TO CULTURE STAT 07/27/2019 4:00 PM ROLL WRAPPER BETA-HYDROXYBUTYRATE STAT 07/27/2019 2:30 PM ROLL WRAPPER TSH W/REFLEX STAT 07/27/2019 2:30 PM ROLL WRAPPER BLOOD GAS, VENOUS STAT 07/27/2019 2:3 0 PM ROLL WRAPPER COMPREHENSIVE METABOLIC PANEL STAT 07/27/2019 2:30 PM ROLL WRAPPER HCG QUANT (SERUM)-CHORIONIC GONADOTROPIN STAT 07/27/2019 2:30 PM ROLL WRAPPER CBC W/DIFF AUTOMATED STAT 07/27/2019 2:30 PM ROLL WRAPPER THYROXINE, FREE (FT4) STAT 07/27/2019 2:30 PM ROLL WRAPPER MAGNESIUM STAT 07/27/2019 2:30 PM ROLL WRAPPER LIPASE STAT 07/27/2019 2:30 PM ROLL WRAPPER documented in this encounter Results * (ABNORMAL) POCT glucose (07/27/2019 5:04 PM ROLL WRAPPER) GLUCOSE POC 112(H) 70 - 99 MG/DL 07/29/2019 7:07 AM ROLL WRAPPER [facility] ORDERS INTERFACE 07/27/2019 5:04 PM ROLL WRAPPER us Antonia Ambriz DO POCT ORDERABLES - DEVICE Final R esult [facility] ORDERS INTERFACE US * (ABNORMAL) URINALYSIS WI REFLEX TO CULTURE (07/27/2019 4:00 PM ROLL WRAPPER) COLOR (U) YELLOW 07/27/2019 4:14 PM [facility] TRANSPARENCY CLEAR 07/27/2019 4:14 PM [facility] SPECIFIC GRAVITY (U) 1.030(H) 1.000 - 1.025 07/27/2019 4:14 PM [facility] Comment:EQUAL TO OR GREATER THAN U PH 6.0 5.0 - 8.0 07/27/2019 4:14 PM [facility] LEUKOCYTES (U) NEGATIVE NEGATIVE 07/27/2019 4:14 PM [facility] NITRITES NEGATIVE NEGATIVE 07/27/2019 4:14 PM [facility] PROTEIN (U) 1+(A) NEGATIVE 07/27/2019 4:14 PM [facility] URINE GLUCOSE TRACE(A) NEGATIVE 07/27/2019 4:14 PM [facility] KETONES MG/DL (U) TRACE(A) NEGATIVE 07/27/2019 4:14 PM [facility] UROBILINOGEN 0.2 <1.0 EU/DL 07/27/2019 4:14 PM [facility] BILIRUBIN (U) NEGATIVE NEGATIVE 07/27/2019 4:14 PM [facility] BLOOD (U) NEGATIVE NEGATIVE 07/27/2019 4:14 PM [facility] WBC/HPF 0-5 0 - 5 /HPF 07/27/2019 4:14 PM [facility] EPI/HPF OCCASIONAL /LPF 07/27/2019 4:14 PM ROLL WRAPPER [facility] CULTURE & SENSITIVITY INDICATED? NOT INDICATED 07/27/2019 4:14 PM ROLL WRAPPER [facility] URINE SPECIMEN OBTAINED BY CLEAN CATCH PROCEDURE / Unknown 07/27/2019 4:00 PM ROLL WRAPPER us Antonia Ambriz DO URINE ORDERABLES Final Result Performing Organization Address [facility]/ZIP Co de Phone Number [facility] [address] [place] [address], * THYROXINE, FREE (FT4) (07/27/2019 2:30 PM ROLL WRAPPER) FREE T4 0.96 0.76 - 1.46 NG/DL 07/27/2019 3:47 PM ROLL WRAPPER [facility] 07/27/2019 2:30 PM ROLL WRAPPER us Antonia Ambriz DO LABORATORY Final Result Performing Organization Address [facility] Co de Phone Number [facility] [address] [place] [address], * BETA-HYDROXYBUTYRATE (07/27/2019 2:30 PM ROLL WRAPPER) BETA-HYDROXYBUT YRATE 0.1 0.0 - 0.3 MMOL/L 07/27/2019 2:51 PM ROLL WRAPPER [facility] 07/27/2019 2:30 PM ROLL WRAPPER us Antonia Ambriz DO LABORATORY Final Result Performing Organization Address [facility] Co de Phone Number [facility] [address] [place] [address], * (ABNORMAL) Blood gas, venous (07/27/2019 2:30 PM ROLL WRAPPER) O2 SAT VENOUS 88(H) 40 - 70 % 07/27/2019 2:48 PM ROLL WRAPPER [facility] PH VENOUS 7.44 7.35 - 7.45 07/27/2019 2:48 PM ROLL WRAPPER [facility] PCO2 VENOUS 38.7(L) 41.0 - 51.0 MMHG 07/27/2019 2:48 PM ROLL WRAPPER [facility] PO2 VENOUS 59.0(H) 20.0 - 40.0 MM HG 07/27/2019 2:48 PM ROLL WRAPPER [facility] VENOUS BASE EXCESS 1.9 MMOL/L 07/27/2019 2:48 PM ROLL WRAPPER [facility] BICARB VENOUS 25.6 22.0 - 29.0 MMOL/L 07/27/2019 2:48 PM ROLL WRAPPER [facility] TCO2 26.8 25.0 - 29.0 MMOL/L 07/27/2019 2:48 PM ROLL WRAPPER [facility] LITER FLOW ROOM AIR 07/27/2019 2:40 PM ROLL WRAPPER [facility] Blood specimen (specimen) 07/27/2019 2:30 PM ROLL WRAPPER us Antonia Ambriz DO LABORATORY Final Result Performing Organization Address City/[facility]/ZIP Co de Phone Number [facility] [address] [place] [address], * (ABNORMAL) TSH W/REFLEX (07/27/2019 2:30 PM ROLL WRAPPER) TSH 6.845(H) 0.358 - 3.740 uIU/ML 07/27/2019 3:28 PM ROLL WRAPPER [facility] 07/27/2019 2:30 PM ROLL WRAPPER us Antonia Ambriz DO LABORATORY Final Result Performing Organization Address City/[facility]/ZIP Co de Phone Number [facility] [address] [place] [address], * MAGNESIUM (07/27/2019 2:30 PM ROLL WRAPPER) MAGNESIUM 1.8 1.8 - 2.4 MG/DL 07/27/2019 3:05 PM ROLL WRAPPER [facility] 07/27/2019 2:30 PM ROLL WRAPPER us Antonia Ambriz DO LABORATORY Final Result Performing Organization Address [facility] Co de Phone Number [facility] [address] [place] [address], [place] [phone] * LIPASE (07/27/2019 2:30 PM ROLL WRAPPER) LIPASE 102 73 - 393 UNITS/L 07/27/2019 3:05 PM ROLL WRAPPER [facility] 07/27/2019 2:30 PM ROLL WRAPPER us Antonia Ambriz DO LABORATORY Final Result Performing Organization Address [facility] de Phone Number [facility] [address] [place] [address], [place] [phone] * HCG QUANT (SERUM)-CHORIONIC GONADOTROPIN (07/27/2019 2:30 PM ROLL WRAPPER) HCG QUANTITATIVE <1 0.0 - 6.0 MIU/ML 07/27/2019 3:28 PM ROLL WRAPPER [facility] Comment:NON- FEMALE 0-6 07/27/2019 2:3 0 PM ROLL WRAPPER us Antonia Ambriz DO LABORATORY Final Result Performing Organization Address [facility] Co de Phone Number [facility] [address] [place] [address], [place] [phone] * (ABNORMAL) COMPREHENSIVE METABOLIC PANEL (07/27/2019 2:30 PM ROLL WRAPPER) SODIUM S/P/B 134(L) 136 - 145 MMOL/L 07/27/2019 3:05 PM ROLL WRAPPER [facility] POTASSIUM S/P/B 4.0 3.5 - 5.1 MMOL/L 07/27/2019 3:05 PM ROLL WRAPPER [facility] CHLORIDE S/P/B 98 98 - 107 MMOL/L 07/27/2019 3:05 PM [facility] CO2 27.0 21.0 - 32.0 MMOL/L 07/27/2019 3:05 PM [facility] GLUCOSE 207(H) 70 - 99 MG/DL 07/27/2019 3:05 PM [facility] Comment: FASTING GLUCOSE 100 TO 125 MG/DL IS CONSISTENT WITH IMPAIRED FASTING GLUCOSE. FASTING GLUCOSE >125 MG/DL IS CONSISTENT WITH DIABETES. RANDOM GLUCOSE >200 MG/DL WITH HYPERGLYCEMIC SYMPTOMS IS CONSISTENT WITH DIABETES. PER ADA GUIDELINES BUN 16 6 - 24 MG/DL 07/27/2019 3:05 PM [facility] CREATININE S/P/B 0.65 0.55 - 1.02 MG/DL 07/27/2019 3:05 PM [facility] CALCIUM S/P/B 9.4 8.4 - 10.5 MG/DL 07/27/2019 3:05 PM [facility] BILIRUBIN TOTAL S/P/B 0.6 0.2 - 1.0 MG/DL 07/27/2019 3:05 PM [facility] ALKALINE PHOSPHATASE S/P/B 86 37 - 98 U/L 07/27/2019 3:05 PM [facility] AST 18 15 - 37 U/L 07/27/2019 3:05 PM [facility] ALT 32 14 - 59 U/L 07/27/2019 3:05 PM [facility] TOTAL PROTEIN S/P/B 7.8 6.4 - 8.2 G/DL 07/27/2019 3:05 PM [facility] ALBUMIN S/P/B 3.8 3.4 - 5.0 G/DL 07/27/2019 3:05 PM [facility] ANION GAP 9.0 5.0 - 15.0 MMOL/L 07/27/2019 3:05 PM [facility] OSMOLALITY (CALC) 285 MOSM/KG 020 3:05 PM [facility] Comment:REFERENCE RANGE NOT ESTABLISHED EGFR NON-AFR. AMER. >90 >89 ML/MIN/1. 73 M2 07/27/2019 3:05 PM [facility] EGFR AFR. AMER. >90 >89 ML/MIN/1. 73 M2 07/27/2019 3:05 PM [facility] GFR NOTES GFR REFERENCE S: 07/27/2019 3:05 PM [facility] Comment: THE ESTIMATED GFR [...] FAILURE: <15 ml/min/1.73 m2 07/27/2019 2:30 PM ROLL WRAPPER Antonia Ambriz DO LABORATORY Final Result [facility] [address] [place] [address], * (ABNORMAL) CBC W/DIFF AUTOMATED (07/27/2019 2:30 PM ROLL WRAPPER) WBC 7.5 4.5 - 10.8 x10'3/uL 07/27/2019 2:44 PM [facility] RBC 4.25 4.10 - 5.40 x10'6/uL 07/27/2019 2:44 PM [facility] HGB 13.3 12.0 - 16.0 G/DL 07/27/2019 2:44 PM [facility] HCT 38.4 36.0 - 47.0 % 07/27/2019 2:44 PM [facility] MCV 90.4 78.0 - 100.0 FL 07/27/2019 2:44 PM [facility] MCH 31.3(H) 27.0 - 31.0 PG 07/27/2019 2:44 PM [facility] MCHC 34.6 33.0 - 36.0 G/DL 07/27/2019 2:44 PM [facility] RDW 11.9 11.5 - 14.5 % 07/27/2019 2:44 PM [facility] PLT 280 150 - 350 x10'3/uL 07/27/2019 2:44 PM [facility] MPV 9.8 7.4 - 10.4 FL 07/27/2019 2:44 PM [facility] DIFFERENTIAL COMMENT NORMAL REFERENCE RANGE NOT ESTABLISHED FOR THE PROPORTIONAL LEUKOCYTE DIFFERENTIAL. 07/27/2019 2:44 PM [facility] SEG NEUTROPHILS 64.3 % 0 2:44 PM [facility] LYMPHOCYTES 27.7 % 07/27/2019 2:44 PM [facility] MONOCYTES 5.7 % 07/27/2019 2:44 PM [facility] EOSINOPHILS 1.5 % 07/27/2019 2:44 PM [facility] BASOPHILS 0.7 % 07/27/2019 2:44 PM [facility] IMMATURE GRANS % 0.1 % 07/27/19 20 2:44 PM [facility] NRBC 0.0 % 07/27/2019 2:44 PM [facility] ABS. NEUTROPHILS 4.81 1.60 - 8.30 x10'3/uL 07/27/2019 2:44 PM [facility] ABS. LYMPHOCYTES 2.07 0.80 - 4.70 x10'3/uL 07/27/2019 2:44 PM [facility] ABS. MONOCYTES 0.43 0.00 - 1.50 x10'3/uL 07/27/2019 2:44 PM [facility] ABS. EOSINOPHILS 0.11 0.00 - 0.40 x10'3/uL 07/27/2019 2:44 PM [facility] ABS. BASOPHILS 0.05 0.00 - 0.20 x10'3/uL 07/27/2019 2:44 PM ROLL WRAPPER [facility] ABS. IMMATURE GRANULOCYTES 0.01 0.00 - 0.03 x10'3/uL 07/27/2019 2:44 PM ROLL WRAPPER [facility] ABS. NUCLEATED RBC'S 0.00 0.00 x10'3/uL 07/27/2019 2:44 PM ROLL WRAPPER [facility] 07/27/2019 2:30 PM ROLL WRAPPER Antonia Ambriz DO LABORATORY Final Result [facility] [address] [place] [address], documented in this encounter Visit Diagnoses Diagnosis [...] over 1-2 minutes. Given 07/27/2019 3:06 PM ROLL WRAPPER 25 mcg fentaNYL (SUBLIMAZE) injection 50 mcg 50 mcg, Intravenous, Once, 1 dose, On 07/27/19 at 1630, If intravenous (IV) route has been ordered, give over 1-2 minutes. Given 07/27/2019 4:48 PM ROLL WRAPPER lactated ringers infusion at 999 mL/hr, Intravenous, Once, 1 dose, On 07/27/19 at 1430 New Bag 07/27/2019 3:04 PM ROLL WRAPPER 1,000 mLs 999 mL/hr ondansetron (ZOFRAN) injection 4 mg 4 mg, Intravenous, Once, 1 dose, On 07/27/19 at 1430, IV push over 2-5 minutes. Given 07/27/2019 3:05 PM ROLL WRAPPER 4 mg oxyCODONE-acetaminophen (PERCOCET) 5-325 MG tablet 1 tablet 1 tablet, Oral, Every 4 hours PRN, Severe pain (Scale 8 - 10), 3 doses, Starting on 07/27/19 at 1833, Until 07/27/19 at 2101, MEDICATION FOR TAKE HOME Given 07/27/2019 6:53 PM ROLL WRAPPER 1 tablet documented in this encounter Active and Recently Administered Medications Times are shown in ROLL WRAPPER. Scheduled Medication Order 07/25/2019 07/26/2019 07/27/2019 fentaNYL [...] RN) documented in this encounter Care Teams Wet Mixer Relationship Specialty Start Date End Date Isaias Grier MD [address] [place] [phone] PCP - General FAMILY PRACTICE 01/29/19 03/18/21 documented as of this encounter
--- OUTSIDE RECORDS SUMMARY | 2024-08-03 02:09 | XMS_ITS | Encounter Summary ---
Author Organization [facility] Address [address] [place] [address]. [place] [address] [place] [address] Care Team Providers Care Genetic Coordinator Name Role Phone Isaias Grier MD Primary Care Provider [phone] Reason for Visit * Reason Comments Vomiting Encounter Details Date Type Department Care Team ([facility] st Contact Info) Description 03/01/2020 10:32 AM CDT - 03/01/2020 1:45 PM CDT Emergency [facility] [place] [address] Harvinder Stallings Jr., MD [address] [place] [address] Vomiting Discharge Disposition: Home or Self Care [...] * Coronavirus Disease 2019 (COVID-19) Discharge Instructions (Maori) documented in this encounter Medications at Time [...] Steph calls requesting results of Coronavirus test. Manager Science advises that test is negative. * Millie [...] file Gets together: Not on file Attends zoroastrianism service: Not on file Active member of [...] XR CHEST PORTABLE Final Result by User, [email or web address] (03/01 131) EXAMINATION: Chest radiograph EXAM DATE: [...] COLOR (U) YELLOW TRANSPARENCY SLIGHTLY CLOUDY Specific [place] (U) 1.020 1.000 - 1.025 U PH [...] Value Ref Range PREG TEST NEGATIVE Specific [place] (U) 1.020 ED MEDICATIONS Medications ondansetron (ZOFRAN) [...] for COVID-19 SUSPECTED COVID-19 Isaias Grier MD [address] [place] [phone] In 1 week New Prescriptions ONDANSETRON 4 MG DISINTEGRATING TABLET Take 1 tablet (4 mg total) by mouth every 8 (eight) hours as needed for Nausea. Harvinder Stallings Jr., MD 03/01/20 1340 * eVronica Ferreira RN - 03/01/2020 10:35 AM CDT [...] TEST URINE (03/01/2020 12:35 PM CDT) Pathologist [facility] PREG TEST NEGATIVE 03/01/2020 12:51 PM CDT [facility] SPECIFIC GRAVITY (U) 1.020 03/01/2020 12:51 PM CDT [facility] URINE SPECIMEN FROM URETHRA / Unknown 03/01/2020 12:35 PM CDT Harvinder Stallings Jr., MD URINE ORDERABLES Final R esult [facility] [address] [place] [address], * (ABNORMAL) URINALYSIS (03/01/2020 12:35 PM CDT) Pathologist [facility] COLOR (U) YELLOW 03/01/2020 12:54 PM CDT [facility] TRANSPARENCY SLIGHTLY CLOUDY 03/01/2020 12:54 PM CDT [facility] SPECIFIC GRAVITY (U) 1.020 1.000 - 1.025 03/01/2020 12:54 PM CDT [facility] U PH 7.5 5.0 - 8.0 03/01/2020 12:54 PM CDT [facility] LEUKOCYTES (U) NEGATIVE NEGATIVE 03/01/2020 12:54 PM CDT [facility] NITRITES NEGATIVE NEGATIVE 03/01/2020 12:54 PM CDT [facility] PROTEIN (U) NEGATIVE NEGATIVE 03/01/2020 12:54 PM CDT [facility] URINE GLUCOSE TRACE(A) NEGATIVE 03/01/2020 12:54 PM CDT [facility] KETONES MG/DL (U) TRACE(A) NEGATIVE 03/01/2020 12:54 PM CDT [facility] UROBILINOGEN 0.2 <1.0 EU/DL 03/01/2020 12:54 PM CDT [facility] BILIRUBIN (U) NEGATIVE NEGATIVE 03/01/2020 12:54 PM CDT [facility] BLOOD (U) NEGATIVE NEGATIVE 03/01/2020 12:54 PM CDT [facility] WBC/HPF 0-5 0 - 5 /HPF 03/01/2020 12:54 PM CDT [facility] EPI/HPF MODERATE /LPF 03/01/2020 12:54 PM CDT [facility] BACTERIA (U) TRACE /HPF 03/01/2020 12:54 PM CDT [facility] URINE SPECIMEN OBTAINED BY CLEAN CATCH PROCEDURE / Unknown 03/01/2020 12:35 PM CDT us Harvinder Stallings Jr., MD URINE ORDERABLES Final R esult [facility] [address] [place] [address], * CORONAVIRUS (COVID 19) (03/01/2020 11:28 AM CDT) CORONAVIRUS SARS COV 2 PCR (RESP) NOT DETECTED NOT DETECTED 03/02/2020 10:38 PM CDT [facility] Comment:REFER TO IDPH REPORT 03/01/2020 11:2 8 AM CDT us Harvinder Stallings Jr., MD MICROBIOLOGY - GENERAL O RDERABLES Final Result [facility] [address] [place] [address], * (ABNORMAL) COMPREHENSIVE METABOLIC PANEL (03/01/2020 11:25 AM CDT) SODIUM S/P/B 137 136 - 145 MMOL/L 03/01/2020 11:52 AM CDT [facility] POTASSIUM S/P/B 4.2 3.5 - 5.1 MMOL/L 03/01/2020 11:52 AM CDT [facility] CHLORIDE S/P/B 101 98 - 107 MMOL/L 03/01/2020 11:52 AM CDT [facility] CO2 26.4 21.0 - 32.0 MMOL/L 03/01/2020 11:52 AM CDT [facility] GLUCOSE 175(H) 70 - 99 MG/DL 03/01/2020 11:52 AM CDT [facility] Comment: FASTING GLUCOSE 100 TO 125 MG/DL IS CONSISTENT WITH IMPAIRED FASTING GLUCOSE. FASTING GLUCOSE >125 MG/DL IS CONSISTENT WITH DIABETES. RANDOM GLUCOSE >200 MG/DL WITH HYPERGLYCEMIC SYMPTOMS IS CONSISTENT WITH DIABETES. PER ADA GUIDELINES BUN 12 6 - 24 MG/DL 03/01/2020 11:52 AM CDT [facility] CREATININE S/P/B 0.75 0.55 - 1.02 MG/DL 03/01/2020 11:52 AM CDT [facility] CALCIUM S/P/B 8.7 8.4 - 10.5 MG/DL 03/01/2020 11:52 AM [facility] BILIRUBIN TOTAL S/P/B 0.3 0.2 - 1.0 MG/DL 03/01/2020 11:52 AM [facility] Comment: THIS ASSAY IS NOT RECOMMENDED FOR PATIENTS UNDERGOING TREATMENT WITH ELTROMBOPAG DUE TO THE POTENTIAL FOR FALSELY ELEVATED RESULTS. ALKALINE PHOSPHATASE S/P/B 84 37 - 98 U/L 03/01/2020 11:52 AM [facility] AST 14(L) 15 - 37 U/L 03/01/2020 11:52 AM [facility] ALT 29 14 - 59 U/L 03/01/2020 11:52 AM [facility] TOTAL PROTEIN S/P/B 7.4 6.4 - 8.2 G/DL 03/01/2020 11:52 AM [facility] ALBUMIN S/P/B 3.2(L) 3.4 - 5.0 G/DL 03/01/2020 11:52 AM [facility] ANION GAP 9.6 5.0 - 15.0 MMOL/L 03/01/2020 11:52 AM [facility] OSMOLALITY (CALC) 288 MOSM/KG 020 11:52 AM [facility] Comment:REFERENCE RANGE NOT ESTABLISHED EGFR NON-AFR. AMER. >90 >89 ML/MIN/1. 73 M2 03/01/2020 11:52 AM [facility] EGFR AFR. AMER. >90 >89 ML/MIN/1. 73 M2 03/01/2020 11:52 AM [facility] GFR NOTES GFR REFERENCE S: 03/01/2020 11:52 AM [facility] Comment: THE [...] Stallings Jr., MD LABORATORY Final Re sult [facility] [address] [place] [address], * (ABNORMAL) CBC W/DIFF AUTOMATED (03/01/2020 11:25 AM CDT) WBC 6.7 4.5 - 10.8 x10'3/uL 03/01/2020 11:35 AM CDT [facility] RBC 4.07(L) 4.10 - 5.40 x10'6/uL 03/01/2020 11:35 AM CDT [facility] HGB 12.4 12.0 - 16.0 G/DL 03/01/2020 11:35 AM CDT [facility] HCT 36.9 36.0 - 47.0 % 03/01/2020 11:35 AM CDT [facility] MCV 90.7 78.0 - 100.0 FL 03/01/2020 11:35 AM CDT [facility] MCH 30.5 27.0 - 31.0 PG 03/01/2020 11:35 AM CDT [facility] MCHC 33.6 33.0 - 36.0 G/DL 03/01/2020 11:35 AM CDT [facility] RDW 12.2 11.5 - 14.5 % 03/01/2020 11:35 AM CDT [facility] PLT 214 150 - 350 x10'3/uL 03/01/2020 11:35 AM CDT [facility] MPV 10.1 7.4 - 10.4 FL 03/01/2020 11:35 AM CDT [facility] DIFFERENTIAL COMMENT NORMAL REFERENCE RANGE NOT ESTABLISHED FOR THE PROPORTIONAL LEUKOCYTE DIFFERENTIAL. 03/01/2020 11:35 AM CDT [facility] SEG NEUTROPHILS 71.7 % 0 11:35 AM CDT [facility] LYMPHOCYTES 20.8 % 03/01/2020 11:35 AM CDT [facility] MONOCYTES 6.1 % 03/01/2020 11:35 AM CDT [facility] EOSINOPHILS 0.9 % 03/01/2020 11:35 AM CDT [facility] BASOPHILS 0.4 % 03/01/2020 11:35 AM CDT [facility] IMMATURE GRANS % 0.1 % 03/01/20 20 11:35 AM CDT [facility] NRBC 0.0 % 03/01/2020 11:35 AM CDT [facility] ABS. NEUTROPHILS 4.83 1.60 - 8.30 x10'3/uL 03/01/2020 11:35 AM CDT [facility] ABS. LYMPHOCYTES 1.40 0.80 - 4.70 x10'3/uL 03/01/2020 11:35 AM CDT [facility] ABS. MONOCYTES 0.41 0.00 - 1.50 x10'3/uL 03/01/2020 11:35 AM CDT [facility] ABS. EOSINOPHILS 0.06 0.00 - 0.40 x10'3/uL 03/01/2020 11:35 AM CDT [facility] ABS. BASOPHILS 0.03 0.00 - 0.20 x10'3/uL 03/01/2020 11:35 AM CDT [facility] ABS. IMMATURE GRANULOCYTES 0.01 0.00 - 0.03 x10'3/uL 03/01/2020 11:35 AM CDT [facility] ABS. NUCLEATED RBC'S 0.00 0.00 x10'3/uL 03/01/2020 11:35 AM CDT [facility] 03/01/2020 11:2 5 AM CDT Harvinder Stallings Jr., MD LABORATORY Final Re sult [facility] [address] [place] [address], documented in this encounter Visit Diagnoses Diagnosis [...] documented as of this encounter Care Teams Genetic Coordinator Relationship Specialty Start Date End Date Isaias Grier MD [address] [place] [phone] PCP - General FAMILY PRACTICE 01/29/19 03/18/21 documented as of this encounter
--- OUTSIDE RECORDS SUMMARY | 2024-08-03 02:09 | XMS_ITS | Encounter Summary ---
Author Organization [facility] Address [facility]. [place], [place] [address] [place] [address] Care Team Providers Care Client Support Analyst Name Role Phone Isaias Grier MD [...] on filedocumented in this encounter Care Teams Client Support Analyst Relationship Specialty Start Date End Date Isaias Grier MD [address] [place] [phone] PCP - General FAMILY PRACTICE 01/29/19 03/18/21 documented as of this encounter
--- OUTSIDE RECORDS SUMMARY | 2024-08-03 02:09 | XMS_ITS | Encounter Summary ---
Author Organization [facility] Address Critical access hospital[facility] [place] [address] [place] [address] Care Team Providers Care Emergency Vehicle Driver Name Role Phone Isaias Grier MD Primary Care Provider [phone] Reason for Referral * Imaging (Emergency) - Closed Specialty Diagnoses / Procedures Referred By Alexis salazar Referred To Contact RADIOLOGY Procedures CT ABD+PEL W IV CON ONLY Sami Aguilera MD Phone: tel: fax: Referral ID Status Reason Start Date Expiration Date Visits Re quested Visits Authorized [id number] Closed 12/04/2019 01/03/2021 1 1 Reason for Visit * Reason Comments Abdominal Pain Encounter Details Date Type Department Care Team (Late st Contact Info) Description 12/04/2019 3:46 PM CDT - 12/04/2019 6:05 PM CDT Emergency [facility] [address] [place] [address] [place] [address] Sami Aguilera MD [address] [place] [id number] Abdominal Pain Discharge Disposition: Home or Self [...] * Severe Abdominal Pain Discharge Instructions, Adult (Luxembourgish) * Gastritis Discharge Instructions (Luxembourgish) documented in this encounter Medications at Time [...] on tp after bm and went to [facility] where was admitted, discharged yest with rx cipro and flagyl and referral to see gi specialist in a few weeks. Pt states has been having abd pain and intermittent n/v since. Took last norco 5/325 at 1100. Came home from [facility] with worsening of pain, went to [...] in her stool. She was seen at [facility] and apparently kept overnight and was advised to follow-up with a GI specialist. She states that she made an appointment with her specialist in [place] but will be for several weeks. She is been taking [place] for the pain is not really controlling [...] file Gets together: Not on file Attends evangelical service: Not on file Active member of [...] IV CON ONLY Final Result by User, [email or web address] (12/03 4212) Examination: CT ABD+PEL W CON Clinical history: [...] PAIN 2. Gastritis GASTRITIS Isaias Grier MD [address] [place] [phone] Call As well as call your GI specialist tomorrow to see if they can move up your appointment New Prescriptions HYDROCODONE-ACETAMINOPHEN 5-325 MG TABLET Take 1-2 tablets by mouth every 6 (six) hours as needed. Indications: Acute Pain < 3 Day Supply Sami Aguilera MD 12/04/19 6240 documented in this encounter Plan of Treatment [...] - 70 % 12/04/2019 4:42 PM CDT [facility] PH VENOUS 7.37 7.35 - 7.45 12/04/2019 4:42 PM CDT [facility] PCO2 VENOUS 44.1 41.0 - 51.0 MMHG 12/04/2019 4:42 PM CDT [facility] PO2 VENOUS 34.0 20.0 - 40.0 MM HG 12/04/2019 4:42 PM CDT [facility] VENOUS BASE EXCESS 0.0 MMOL/L 12/04/2019 4:42 PM CDT [facility] BICARB VENOUS 24.9 22.0 - 29.0 MMOL/L 12/04/2019 4:42 PM CDT [facility] TCO2 26.3 25.0 - 29.0 MMOL/L 12/04/2019 4:42 PM CDT [facility] LITER FLOW ROOM AIR 12/04/2019 4:33 PM CDT [facility] Blood specimen (specimen) 12/04/2019 4:30 PM CDT us Sami Aguilera MD LABORATORY Final Result Performing Organization Address [facility] Co de Phone Number [facility] [address] [place] [address], * (ABNORMAL) BETA-HYDROXYBUTYRATE (12/04/2019 4:30 PM CDT) BETA-HYDROXYBU TYRATE 0.5(H) 0.0 - 0.3 MMOL/L 12/04/2019 4:42 PM CDT [facility] 12/04/2019 4:30 PM CDT us Sami Aguilera MD LABORATORY Final Result Performing Organization Address [facility] Co de Phone Number [facility] [address] [place] [address], * (ABNORMAL) LIPASE (12/04/2019 4:30 PM CDT) LIPASE 56(L) 73 - 393 UNITS/L 12/04/2019 4:59 PM CDT [facility] 12/04/2019 4:30 PM CDT us Sami Aguilera MD LABORATORY Final Result Performing Organization Address [facility] Co de Phone Number [facility] [address] [place] [address], [place] [phone] * (ABNORMAL) COMPREHENSIVE METABOLIC PANEL (12/04/2019 4:30 PM CDT) SODIUM S/P/B 143 136 - 145 MMOL/L 12/04/2019 4:59 PM CDT [facility] POTASSIUM S/P/B 3.6 3.5 - 5.1 MMOL/L 12/04/2019 4:59 PM CDT [facility] CHLORIDE S/P/B 108(H) 98 - 107 MMOL/L 12/04/2019 4:59 PM CDT [facility] CO2 28.7 21.0 - 32.0 MMOL/L 12/04/2019 4:59 PM T [facility] GLUCOSE 82 70 - 99 MG/DL 12/04/2019 4:59 PM T [facility] Comment: FASTING GLUCOSE 100 TO 125 MG/DL IS CONSISTENT WITH IMPAIRED FASTING GLUCOSE. FASTING GLUCOSE >125 MG/DL IS CONSISTENT WITH DIABETES. RANDOM GLUCOSE >200 MG/DL WITH HYPERGLYCEMIC SYMPTOMS IS CONSISTENT WITH DIABETES. PER ADA GUIDELINES BUN 8 6 - 24 MG/DL 12/04/2019 4:59 PM CDT [facility] CREATININE S/P/B 0.74 0.55 - 1.02 MG/DL 12/04/2019 4:59 PM CDT [facility] CALCIUM S/P/B 8.4 8.4 - 10.5 MG/DL 12/04/2019 4:59 PM CDT [facility] BILIRUBIN TOTAL S/P/B 0.5 0.2 - 1.0 MG/DL 12/04/2019 4:59 PM T [facility] Comment: THIS ASSAY IS NOT RECOMMENDED FOR PATIENTS UNDERGOING TREATMENT WITH ELTROMBOPAG DUE TO THE POTENTIAL FOR FALSELY ELEVATED RESULTS. ALKALINE PHOSPHATASE S/P/B 48 37 - 98 U/L 12/04/2019 4:59 PM T [facility] AST 13(L) 15 - 37 U/L 12/04/2019 4:59 PM CDT [facility] ALT 16 14 - 59 U/L 12/04/2019 4:59 PM CDT [facility] TOTAL PROTEIN S/P/B 6.4 6.4 - 8.2 G/DL 12/04/2019 4:59 PM T [facility] ALBUMIN S/P/B 3.3(L) 3.4 - 5.0 G/DL 12/04/2019 4:59 PM T [facility] ANION GAP 6.3 5.0 - 15.0 MMOL/L 12/04/2019 4:59 PM CDT [facility] OSMOLALITY (CALC) 293 MOSM/KG 05/14/2 020 4:59 PM CDT [facility] Comment:REFERENCE RANGE NOT ESTABLISHED EGFR NON-AFR. AMER. >90 >89 ML/MIN/1. 73 M2 12/04/2019 4:59 PM CDT [facility] EGFR AFR. AMER. >90 >89 ML/MIN/1. 73 M2 12/04/2019 4:59 PM CDT [facility] GFR NOTES GFR REFERENCE S: 12/04/2019 4:59 PM CDT [facility] Comment: THE ESTIMATED GFR IS [...] CDT Sami Aguilera MD LABORATORY Final Result [facility] [address] [place] [address], * (ABNORMAL) CBC W/DIFF AUTOMATED (12/04/2019 4:30 PM CDT) WBC 9.1 4.5 - 10.8 x10'3/uL 12/04/2019 4:39 PM CDT [facility] RBC 3.70(L) 4.10 - 5.40 x10'6/uL 12/04/2019 4:39 PM CDT [facility] HGB 11.3(L) 12.0 - 16.0 G/DL 12/04/2019 4:39 PM CDT [facility] HCT 32.8(L) 36.0 - 47.0 % 12/04/2019 4:39 PM CDT [facility] MCV 88.6 78.0 - 100.0 FL 12/04/2019 4:39 PM CDT [facility] MCH 30.5 27.0 - 31.0 PG 12/04/2019 4:39 PM CDT [facility] MCHC 34.5 33.0 - 36.0 G/DL 12/04/2019 4:39 PM CDT [facility] RDW 12.0 11.5 - 14.5 % 12/04/2019 4:39 PM CDT [facility] PLT 218 150 - 350 x10'3/uL 12/04/2019 4:39 PM CDT [facility] MPV 9.6 7.4 - 10.4 FL 12/04/2019 4:39 PM CDT [facility] DIFFERENTIAL COMMENT NORMAL REFERENCE RANGE NOT ESTABLISHED FOR THE PROPORTIONAL LEUKOCYTE DIFFERENTIAL. 12/04/2019 4:39 PM CDT [facility] SEG NEUTROPHILS 69.4 % 0 4:39 PM CDT [facility] LYMPHOCYTES 22.4 % 12/04/2019 4:39 PM CDT [facility] MONOCYTES 6.6 % 12/04/2019 4:39 PM CDT [facility] EOSINOPHILS 1.0 % 12/04/2019 4:39 PM CDT [facility] BASOPHILS 0.3 % 12/04/2019 4:39 PM CDT [facility] IMMATURE GRANS % 0.3 % 12/04/19 20 4:39 PM CDT [facility] NRBC 0.0 % 12/04/2019 4:39 PM CDT [facility] ABS. NEUTROPHILS 6.29 1.60 - 8.30 x10'3/uL 12/04/2019 4:39 PM CDT [facility] ABS. LYMPHOCYTES 2.03 0.80 - 4.70 x10'3/uL 12/04/2019 4:39 PM CDT [facility] ABS. MONOCYTES 0.60 0.00 - 1.50 x10'3/uL 12/04/2019 4:39 PM CDT [facility] ABS. EOSINOPHILS 0.09 0.00 - 0.40 x10'3/uL 12/04/2019 4:39 PM CDT [facility] ABS. BASOPHILS 0.03 0.00 - 0.20 x10'3/uL 12/04/2019 4:39 PM CDT [facility] ABS. IMMATURE GRANULOCYTES 0.03 0.00 - 0.03 x10'3/uL 12/04/2019 4:39 PM CDT [facility] ABS. NUCLEATED RBC'S 0.00 0.00 x10'3/uL 12/04/2019 4:39 PM CDT [facility] 12/04/2019 4:30 PM CDT us Sami Aguilera MD LABORATORY Final Result Performing Organization Address [facility] [place] [address], * OCCULT BLOOD, FECES (12/04/2019 4:05 PM CDT) OCCULT BLOOD FECAL NEGATIVE NEGATIVE 12/04/2019 4:41 PM CDT [facility] STOOL SPECIMEN / Unknown 12/04/2019 4:05 PM CDT us Sami Aguilera MD BODY FLUIDS AND STOOLS ORDERA BLES Final Result Performing Organization Address [facility] de Phone Number [facility] [address] [place] [address], documented in this encounter Visit Diagnoses Diagnosis [...] RTR) documented in this encounter Care Teams Emergency Vehicle Driver Relationship Specialty Start Date End Date Isaias Grier MD [address] [place] [phone] PCP - General FAMILY PRACTICE 01/29/19 03/18/21 documented as of this encounter
--- OUTSIDE RECORDS SUMMARY | 2024-08-03 02:10 | XMS_ITS | Encounter Summary ---
Author Organization [facility] Address [facility] [facility] [place] [address] [place] [address] Care Team Providers Care Polymer Chemist Name Role Phone Unavailable Primary Care Provider Unavailabl e Encounter Details Date Type Department Care Team (Late st Contact Info) Description 12/09/[address] [facility] [address] [place] [address] Isaias Grier MD [address] [place] [phone] Social History Tobacco Use Types Packs/Day [...]
--- OUTSIDE RECORDS SUMMARY | 2024-08-03 02:10 | XMS_ITS | Encounter Summary ---
Author Organization [facility] Address [address] [place] [address]. [place] [address] [place] [address] Care Team Providers Care Neonatal Doctor Name Role Phone Isaias Grier MD Primary Care Provider Reason for Visit * Reason Comments Abdominal Pain Encounter Details Date Type Department Care Team ([facility] st Contact Info) Description 06/04/2019 8:19 AM PROFILER OPERATOR - 06/04/2019 10:34 AM [facility] [place], [place] [id number] Sami Aguilera MD [address] [place] [address] Abdominal Pain Discharge Disposition: Home or [...] Comments Blood Pressure 92/65 06/04/2019 10:30 AM PROFILER OPERATOR Pulse 84 06/04/2019 9:45 AM PROFILER OPERATOR Temperature 36.3 ??C (97.4 ??F) 06/04/2019 8:20 AM CS T Respiratory Rate 18 06/04/2019 9:45 AM PROFILER OPERATOR Oxygen Saturation 100% 06/04/2019 10:30 AM PROFILER OPERATOR Inhaled Oxygen Concentration - - Weight 49.9 kg (110 lb) 06/04/2019 8:20 AM PROFILER OPERATOR Height 165.1 cm (5' 5 ) 06/04/2019 8:20 AM PROFILER OPERATOR Body Mass Index 18.3 06/04/2019 8:20 AM PROFILER OPERATOR documented in this encounter Discharge Instructions * Attachments The following attachments cannot be sent through Care Everywhere. * Severe Abdominal Pain (Mauritian) documented in this encounter Medications at Time [...] 1 8 03/01/20 ONETOUCH DELICA LANCETS 33G [facility] [place] TEST BLOOD BLOOD SUGAR FOUR TIMES A DAY AND NEEDED 1 7 03/01/20 traMADol 50 MG tablet TAKE 1 TO 2 TABLETS BY MOUTH TWO TIMES A DAY 0 9 10/10/19 documented as of this encounter ED Notes * Martina Lee RN - 06/04/2019 9:39 AM CST Patient to xray 0935 ILER OPERATOR * Martina Lee RN - 06/04/2019 8:20 AM CST amb to er with c/o abdominal pain for a week, worse today. Threw up once this am. States it was bloody. Pain to center of abdomen 03/01. Blood sugar 305. ILER OPERATOR ILER OPERATOR * Sami Aguilera MD - 06/04/2019 [...] file Gets together: Not on file Attends congregational service: Not on file Active member of [...] XR ABD FLAT+UPRIGHT Final Result by User, [id number] (06/04 948) Examination: Two-view abdomen. Exam time: [...] Value Ref Range PREG TEST NEGATIVE Specific Angela (U) >1.030 URINALYSIS WI REFLEX TO CULTURE Result Value Ref Range COLOR YELLOW TRANSPARENCY CLEAR Specific Angela (U) 1.030 (H) 1.000 - 1.025 U [...] with either her primary care physician or gis technician for further evaluation. FINAL IMPRESSION SNOMED CT(R) 1. Abdominal pain ABDOMINAL PAIN 2. Hyperglycemia HYPERGLYCEMIA Isaias Grier MD 5 [facility] [phone] Schedule an appointment as soon as possible for a visit New Prescriptions HYDROCODONE-ACETAMINOPHEN 5-325 MG TABLET Take 1-2 tablets by mouth every 6 (six) hours as needed. Indications: Acute Pain < 3 Day Supply Sami Aguilera MD 06/04/19 1028 ILER OPERATOR documented in this encounter Plan of Treatment Not on file documented as of this encounter Procedures Procedure Name Priority Date/Time Associated Diagnosis Comments POCT GLUCOSE - ALARCON DOCKED DEVICE Routine 06/04/2019 9:47 AM PROFILER OPERATOR XR ABD FLAT+UPRIGHT STAT 06/04/2019 9 :42 AM PROFILER OPERATOR BETA-HYDROXYBUTYRATE STAT 06/04/2019 8:40 AM PROFILER OPERATOR BLOOD GAS, VENOUS STAT 06/04/2019 8:4 0 AM PROFILER OPERATOR COMPREHENSIVE METABOLIC PANEL STAT 06/04/2019 8:40 AM PROFILER OPERATOR CBC W/DIFF AUTOMATED STAT 06/04/2019 8:40 AM PROFILER OPERATOR LIPASE STAT 06/04/2019 8:40 AM PROFILER OPERATOR URINALYSIS WI REFLEX TO CULTURE STAT 06/04/2019 8:30 AM PROFILER OPERATOR TEST URINE STAT 06/04/2019 8:30 AM PROFILER OPERATOR POCT GLUCOSE - ALARCON DOCKED DEVICE Routine 06/04/2019 8:23 AM PROFILER OPERATOR documented in this encounter Results * (ABNORMAL) POCT glucose (06/04/2019 9:47 AM PROFILER OPERATOR) GLUCOSE POC 294(H) 70 - 99 MG/DL 06/04/2019 9:51 AM PROFILER OPERATOR [facility] ORDERS INTERFACE 06/04/2019 9:47 AM PROFILER OPERATOR us Sami Aguilera MD POCT ORDERABLES - DEVICE Lavern l Result [facility] ORDERS INTERFACE US * XR ABD FLAT+UPRIGHT (06/04/2019 9:42 AM PROFILER OPERATOR) Anatomical Region Laterality Modality Abdomen Radiographic Angela ging 06/04/2019 9:46 AM PROFILER OPERATOR Impressions 06/04/2019 9:47 AM PROFILER OPERATOR IMPRESSION: No acute findings. Interpreted By: Otis Anders, 06/04/2019 9:46 AM Narrative 06/04/2019 9:47 AM PROFILER OPERATOR Examination: Two-view abdomen. Exam time: 0935 [...] (ABNORMAL) Blood gas, venous (06/04/2019 8:40 AM PROFILER OPERATOR) O2 SAT VENOUS 29(L) 40 - 70 % 06/04/2019 8:53 AM PROFILER OPERATOR [facility] PH VENOUS 7.37 7.35 - 7.45 06/04/2019 8:53 AM [facility] PCO2 VENOUS 49.7 41.0 - 51.0 MMHG 06/04/2019 8:53 AM [facility] PO2 VENOUS 25.0 20.0 - 40.0 MM HG 06/04/2019 8:53 AM [facility] VENOUS BASE EXCESS 2.0 MMOL/L 06/04/2019 8:53 AM [facility] BICARB VENOUS 27.9 22.0 - 29.0 MMOL/L 06/04/2019 8:53 AM [facility] TCO2 29.4(H) 25.0 - 29.0 MMOL/L 06/04/2019 8:53 AM [facility] LITER FLOW ROOM AIR 06/04/2019 8:48 AM [facility] Blood specimen (specimen) 06/04/2019 8:40 AM PROFILER OPERATOR us Sami Aguilera MD LABORATORY Final Result Performing Organization Address City/[facility]/ZIP Co de Phone Number [facility] [address] [place] [address], * (ABNORMAL) BETA-HYDROXYBUTYRATE (06/04/2019 8:40 AM PROFILER OPERATOR) BETA-HYDROXYBU TYRATE 0.7(H) 0.0 - 0.3 MMOL/L 06/04/2019 8:53 AM PROFILER OPERATOR [facility] 06/04/2019 8:40 AM PROFILER OPERATOR us Sami Aguilera MD LABORATORY Final Result [facility] [address] [place] [address], * (ABNORMAL) LIPASE (06/04/2019 8:40 AM PROFILER OPERATOR) LIPASE 71(L) 73 - 393 UNITS/L 06/04/2019 9:21 AM PROFILER OPERATOR [facility] 06/04/2019 8:40 AM PROFILER OPERATOR us Sami Aguilera MD LABORATORY Final Result [facility] [address] [place] [address], * (ABNORMAL) COMPREHENSIVE METABOLIC PANEL (06/04/2019 8:40 AM PROFILER OPERATOR) SODIUM S/P/B 135(L) 136 - 145 MMOL/L 06/04/2019 9:11 AM [facility] POTASSIUM S/P/B 4.7 3.5 - 5.1 MMOL/L 06/04/2019 9:11 AM [facility] Comment:SLIGHT HEMOLYSIS, RE SULT MAY BE AFFECTED. CHLORIDE S/P/B 96(L) 98 - 107 MMOL/L 06/04/2019 9:11 AM [facility] CO2 28.3 21.0 - 32.0 MMOL/L 06/04/2019 9:11 AM [facility] GLUCOSE 358(H) 70 - 99 MG/DL 06/04/2019 9:11 AM [facility] Comment: FASTING GLUCOSE 100 TO 125 MG/DL IS CONSISTENT WITH IMPAIRED FASTING GLUCOSE. FASTING GLUCOSE >125 MG/DL IS CONSISTENT WITH DIABETES. RANDOM GLUCOSE >200 MG/DL WITH HYPERGLYCEMIC SYMPTOMS IS CONSISTENT WITH DIABETES. PER ADA GUIDELINES BUN 20 6 - 24 MG/DL 06/04/2019 9:11 AM [facility] CREATININE S/P/B 0.87 0.55 - 1.02 MG/DL 06/04/2019 9:11 AM [facility] CALCIUM S/P/B 9.8 8.4 - 10.5 MG/DL 06/04/2019 9:11 AM [facility] BILIRUBIN TOTAL S/P/B 0.8 0.2 - 1.0 MG/DL 06/04/2019 9:11 AM [facility] ALKALINE PHOSPHATASE S/P/B 100(H) 37 - 98 U/L 06/04/2019 9:11 AM [facility] AST 28 15 - 37 U/L 06/04/2019 9:11 AM [facility] ALT 31 14 - 59 U/L 06/04/2019 9:11 AM [facility] TOTAL PROTEIN S/P/B 8.9(H) 6.4 - 8.2 G/DL 06/04/2019 9:11 AM [facility] ALBUMIN S/P/B 4.2 3.4 - 5.0 G/DL 06/04/2019 9:11 AM [facility] ANION GAP 10.7 5.0 - 15.0 MMOL/L 06/04/2019 9:11 AM [facility] OSMOLALITY (CALC) 297 MOSM/KG 06/04/2019 9:11 AM [facility] Comment:REFERENCE RANGE NOT ESTABLISHED EGFR NON-AFR. AMER. 89(L) >89 ML/MIN/1 .73 M2 06/04/2019 9:11 AM PROFILER OPERATOR [facility] EGFR AFR. AMER. >90 >89 ML/MIN/1 .73 M2 06/04/2019 9:11 AM [facility] GFR NOTES THE ESTIMATED GFR IS CALCULATED USING THE 2009 CKD-EPI EQUATION. THE FOLLOWING CATEGORIES FOR GRADING RENAL FUNCTION ARE RECOMMENDED BY THE INTERNATIONAL SOCIETY OF NEPHROLOGY (KDIGO 2012 CLINICAL PRACTICE GUIDELINE). 06/04/2019 9:11 AM [facility] Comment: G1,NORMAL OR HIGH: >89 ml/min/1.73 m2 G2,MILDLY DECREASED: 60-89 ml/min/1.73 m2 G3A,MILDLY TO MODERATELY DECREASED: 45-59 ml/min/1.73 m2 G3B,MODERATELY TO SEVERELY DECREASED: 30-44 ml/min/1.73 m2 G4,SEVERELY DECREASED: 15-29 ml/min/1.73 m2 G5,KIDNEY FAILURE: <15 ml/min/1.73 m2 06/04/2019 8:40 AM PROFILER OPERATOR us Sami Aguilera MD LABORATORY Final Result [facility] [address] [place] [address], * (ABNORMAL) CBC W/DIFF AUTOMATED (06/04/2019 8:40 AM PROFILER OPERATOR) WBC 7.1 4.5 - 10.8 x10'3/uL 06/04/2019 8:55 AM [facility] RBC 5.22 4.10 - 5.40 x10'6/uL 06/04/2019 8:55 AM [facility] HGB 16.3(H) 12.0 - 16.0 G/DL 06/04/2019 8:55 AM [facility] HCT 47.3(H) 36.0 - 47.0 % 06/04/2019 8:55 AM [facility] MCV 90.6 78.0 - 100.0 FL 06/04/2019 8:55 AM [facility] MCH 31.2(H) 27.0 - 31.0 PG 06/04/2019 8:55 AM [facility] MCHC 34.5 33.0 - 36.0 G/DL 06/04/2019 8:55 AM [facility] RDW 12.1 11.5 - 14.5 % 06/04/2019 8:55 AM [facility] PLT 355(H) 150 - 350 x10'3/uL 06/04/2019 8:55 AM [facility] MPV 10.4 7.4 - 10.4 FL 06/04/2019 8:55 AM [facility] DIFFERENTIAL COMMENT NORMAL REFERENCE RANGE NOT ESTABLISHED FOR THE PROPORTIONAL LEUKOCYTE DIFFERENTIAL. 06/04/2019 8:55 AM [facility] SEG NEUTROPHILS 63.7 % 9 8:55 AM [facility] LYMPHOCYTES 26.6 % 06/04/2019 8:55 AM [facility] MONOCYTES 7.6 % 06/04/2019 8:55 AM [facility] EOSINOPHILS 1.0 % 06/04/2019 8:55 AM [facility] BASOPHILS 0.8 % 06/04/2019 8:55 AM [facility] IMMATURE GRANS % 0.3 % 06/04/20 19 8:55 AM [facility] NRBC 0.0 % 06/04/2019 8:55 AM [facility] ABS. NEUTROPHILS 4.55 1.60 - 8.30 x10'3/uL 06/04/2019 8:55 AM [facility] ABS. LYMPHOCYTES 1.90 0.80 - 4.70 x10'3/uL 06/04/2019 8:55 AM [facility] ABS. MONOCYTES 0.54 0.00 - 1.50 x10'3/uL 06/04/2019 8:55 AM [facility] ABS. EOSINOPHILS 0.07 0.00 - 0.40 x10'3/uL 06/04/2019 8:55 AM [facility] ABS. BASOPHILS 0.06 0.00 - 0.20 x10'3/uL 06/04/2019 8:55 AM [facility] ABS. IMMATURE GRANULOCYTES 0.02 0.00 - 0.03 x10'3/uL 06/04/2019 8:55 AM [facility] ABS. NUCLEATED RBC'S 0.00 0.00 x10'3/uL 06/04/2019 8:55 AM [facility] 06/04/2019 8:40 AM PROFILER OPERATOR us Sami Aguilera MD LABORATORY Final Result [place] [id number] [place] [address], * (ABNORMAL) URINALYSIS WI REFLEX TO CULTURE (06/04/2019 8:30 AM PROFILER OPERATOR) COLOR (U) YELLOW 06/04/2019 9:01 AM [facility] TRANSPARENCY CLEAR 06/04/2019 9:01 AM [facility] SPECIFIC GRAVITY (U) 1.030(H) 1.000 - 1.025 06/04/2019 9:01 AM [facility] Comment:EQUAL TO OR GREATER THAN U PH 5.5 5.0 - 8.0 06/04/2019 9:01 AM [facility] LEUKOCYTES (U) NEGATIVE NEGATIVE 06/04/2019 9:01 AM [facility] NITRITES NEGATIVE NEGATIVE 06/04/2019 9:01 AM [facility] PROTEIN (U) 2+(A) NEGATIVE 06/04/2019 9:01 AM [facility] URINE GLUCOSE 2+(A) NEGATIVE 06/04/2019 9:01 AM [facility] KETONES MG/DL (U) 1+(A) NEGATIVE 06/04/2019 9:01 AM [facility] UROBILINOGEN 0.2 <1.0 EU/DL 06/04/2019 9:01 AM [facility] BLOOD (U) 2+(A) NEGATIVE 06/04/2019 9:01 AM [facility] WBC/HPF 0-5 0 - 5 /HPF 06/04/2019 9:01 AM [facility] RBC/HPF 5-10(A) 0 - 5 /HPF 06/04/2019 9:01 AM [facility] EPI/HPF MANY /LPF 06/04/2019 9:01 AM [facility] BACTERIA (U) 1+ /HPF 06/04/2019 9:01 AM [facility] MUCUS PRESENT 06/04/2019 9:01 AM [facility] BILIRUBIN (U) NEGATIVE NEGATIVE 06/04/2019 9:01 AM [facility] CULTURE & SENSITIVITY INDICATED? NOT INDICATED 06/04/2019 9:01 AM [facility] URINE SPECIMEN OBTAINED BY CLEAN CATCH PROCEDURE / Unknown 06/04/2019 8:30 AM PROFILER OPERATOR us Saim Aguilera MD URINE ORDERABLES Final Result [facility] [address] [place] [address], * TEST URINE (06/04/2019 8:30 AM PROFILER OPERATOR) PREG TEST NEGATIVE 06/04/2019 8:59 AM PROFILER OPERATOR [facility] SPECIFIC GRAVITY (U) >1.030 06/04/2019 8:59 AM PROFILER OPERATOR [facility] URINE SPECIMEN OBTAINED BY CLEAN CATCH PROCEDURE / Unknown 06/04/2019 8:30 AM PROFILER OPERATOR Sami Aguilera MD URINE ORDERABLES Final Result Performing Organization Address City/[facility]/ZIP Co de Phone Number [facility] [place] [address], * (ABNORMAL) POCT glucose (06/04/2019 8:23 AM PROFILER OPERATOR) [facility] GLUCOSE POC 305(H) 70 - 99 MG/DL 06/04/2019 8:25 AM PROFILER OPERATOR [facility] ORDERS INTERFACE 06/04/2019 8:23 AM PROFILER OPERATOR Sami Aguilera MD POCT ORDERABLES - DEVICE Lavern l Result Performing Organization Address [facility]/ZIP Co de Phone Number [facility] ORDERS INTERFACE US documented in [...] Sun06/04/19 at 0930 Given 06/04/2019 9:48 AM PROFILER OPERATOR 5 Units morphine injection 4 mg 4 mg, Intravenous, Once, 1 dose, On Sun06/04/19 at 0830 Given 06/04/2019 8:59 AM PROFILER OPERATOR 4 mg morphine injection 4 mg 4 mg, Intravenous, Once, 1 dose, On Sun06/04/19 at 1000 Given 06/04/2019 10:04 AM PROFILER OPERATOR 4 mg ondansetron (ZOFRAN) injection 4 mg 4 mg, Intravenous, Once, 1 dose, On Sun06/04/19 at 0830, IV push over 2-5 minutes. Given 06/04/2019 8:58 AM PROFILER OPERATOR 4 mg sodium chloride 0.9% bolus infusion SOLN 1,000 mL 1,000 mL, Intravenous, Administer over 15 Minutes, Once, 1 dose, On Sun06/04/19 at 0830 New Bag 06/04/2019 8:57 AM PROFILER OPERATOR 1,000 mLs documented in this encounter Active and Recently Administered Medications Times are shown in PROFILER OPERATOR. Scheduled Medication Order 06/02/2019 06/03/2019 06/04/2019 [...] RN) documented in this encounter Care Teams Neonatal Doctor Relationship Specialty Start Date End Date Isaias Grier MD [address] [place] [address] PCP - General FAMILY PRACTICE 01/29/19 03/18/21 documented as of this encounter
--- OUTSIDE RECORDS SUMMARY | 2024-08-03 02:10 | XMS_ITS | Encounter Summary ---
Author Organization [facility] Address [facility] [place] [address] [place] [address] Care Team Providers Care Adoption Worker Name Role Phone Unavailable Primary Care Provider Unavailabl e Encounter Details Date Type Department Care Team (Late st Contact Info) Description 10/21/[address] [facility] [address] [place] [address] Isaias Grier MD [address] [place] [phone] Social History Tobacco Use Types Packs/Day [...] - 6.0 MIU/ML 10/21/2018 12:22 PM CDT [facility] Comment:NON- FEMALE 0-6 SERUM OR PLASMA SPECIMEN / Unknown 10/21/2018 11:55 AM CDT 10/21/2018 11:58 AM CDT us Generic Conversion Md [facility] Final R esult [facility] [address] [place] [address], documented in this encounter Visit Diagnoses Diagnosis Amenorrhea Absence of menstruation documented in this encounter
--- OUTSIDE RECORDS SUMMARY | 2024-08-03 02:10 | XMS_ITS | Encounter Summary ---
Author Organization [facility] Address [facility] [place] [address] [place] [address] Care Team Providers Care Tree Girdler Name Role Phone Isaias Grier MD Primary Care Provider [phone] Renee Hernandez MD Primary Care Provider [phone] Encounter Details Date Type Department Care Team (Late st Contact Info) Description 12/28/2018 Abstract [facility] [address] [place] [address] , Generic Conversion, Social History [...] documented as of this encounter Care Teams Tree Girdler Relationship Specialty Start Date End Date Isaias Grier MD [address] [place] [phone] PCP - General FAMILY PRACTICE 01/29/19 03/18/21 Renee Hernandez MD [address] [place] [address] [place] [phone] PCP - General FAMILY PRACTICE 03/19/21 documented as of this encounter
--- OUTSIDE RECORDS SUMMARY | 2024-08-03 02:10 | XMS_ITS | Encounter Summary ---
Author Organization [facility] Address [address] [place] [address] [place] [address] Care Team Providers Care Vacuum Extractor Operator Name Role Phone Unavailable Primary Care Provider Unavailabl e Encounter Details Date Type Department Care Team (Late st Contact Info) Description 12/07/2018 Abstract [facility] [address] [place] [address] Nahum Bang MD [address] [address] Social History Tobacco Use Types [...] COLOR (U) YELLOW 12/07/2018 2:55 PM CDT [facility] TRANSPARENCY CLEAR 12/07/2018 2:55 PM CDT [facility] SPECIFIC GRAVITY (U) 1.020 1.000 - 1.025 12/07/2018 2:55 PM CDT [facility] U PH 7.0 5.0 - 8.0 12/07/2018 2:55 PM CDT [facility] LEUKOCYTES (U) NEGATIVE NEGATIVE 12/07/2018 2:55 PM CDT [facility] NITRITES NEGATIVE NEGATIVE 12/07/2018 2:55 PM CDT [facility] PROTEIN (U) NEGATIVE NEGATIVE 12/07/2018 2:55 PM CDT [facility] URINE GLUCOSE 2+(A) NEGATIVE 12/07/2018 2:55 PM CDT [facility] KETONES MG/DL (U) TRACE(A) NEGATIVE 12/07/2018 2:55 PM CDT [facility] UROBILINOGEN 1.0(H) <1.0 EU/DL 12/07/2018 2:55 PM CDT [facility] BILIRUBIN (U) NEGATIVE NEGATIVE 12/07/2018 2:55 PM CDT [facility] BLOOD (U) NEGATIVE NEGATIVE 12/07/2018 2:55 PM CDT [facility] WBC/HPF 0-5 0 - 5 /HPF 12/07/2018 2:55 PM CDT [facility] EPI/HPF OCCASIONAL /LPF 12/07/2018 2:55 PM CDT [facility] MUCUS PRESENT 12/07/2018 2:55 PM CDT [facility] CULTURE & SENSITIVITY INDICATED? NOT INDICATED 12/07/2018 2:55 PM CDT [facility] OTHER (type in comments) 12/07/2018 2:25 PM CDT 12/07/2018 2:42 PM CDT Comment:URINE SPECIMEN~URINE SPECIMEN us Generic Conversion Md MIR URINE ORDERABLES Final Result [facility] [address] [place] [address], * (ABNORMAL) DRUG SCREEN RAPID (12/07/2018 2:25 PM CDT) CANNABINOIDS SCREEN (U) POSITIVE(A) NEGATIVE 12/07/2018 3:04 PM CDT [facility] PHENCYCLIDINE PCP (U) NEGATIVE NEGATIVE 12/07/2018 3:04 PM CDT [facility] COCAINE METABOLITES (U) NEGATIVE NEGATIVE 12/07/2018 3:04 PM CDT [facility] METHAMPHETAMINE (U) NEGATIVE NEGATIVE 12/07/2018 3:04 PM CDT [facility] OPIATE SCREEN (U) NEGATIVE NEGATIVE 019 3:04 PM CDT [facility] AMPHETAMINE (U) NEGATIVE NEGATIVE 9 3:04 PM CDT [facility] BENZODIAZEPINES SCREEN (U) NEGATIVE NEGATIVE 12/07/2018 3:04 PM CDT [facility] TRICYCLIC ANTIDEPRESSANT SCREEN (U) NEGATIVE NEGATIVE 12/07/2018 3:04 PM CDT [facility] METHADONE (U) NEGATIVE NEGATIVE 12/07/2018 3:04 PM CDT [facility] BARBITURATES SCREEN (U) NEGATIVE NEGATIVE 12/07/2018 3:04 PM CDT [facility] OXYCODONE SCREEN (U) NEGATIVE NEGATIVE 12/07/2018 3:04 PM CDT [facility] PROPOXYPHENE SCREEN (U) NEGATIVE NEGATIVE 12/07/2018 3:04 PM CDT [facility] URINE TOX COMMENT THIS TEST METHODOLOGY IS DESIGNED AND OFFERED A RAPID TURNAROUND, QUALITATIVE SCREENING PROCEDURE TO AID IN THE IMMEDIATE MEDICAL ASSESSMENT OF PATIENTS SUSPECTED OF SUBSTANCE ABUSE. 12/07/2018 2:26 PM CDT [facility] Comment: CLINICAL CONSIDERATION AND PROFESSIONAL JUDGMENT MUST BE APPLIED TO ANY DRUG OF ABUSE TEST RESULT, BOTH POSITIVE AND NEGATIVE. CONFIRMATORY QUANTITATIVE RESULTS ARE AVAILABLE THROUGH OUR [facility]. 12/07/2018 2:25 PM CDT 12/07/2018 2:42 PM CDT us Generic Conversion Md MIR URINE ORDERABLES Final Result Performing Organization Address [facility]/ZIP Co de Phone Number [facility] [address] [place] [address], [place] [phone] * (ABNORMAL) LIPASE (12/07/2018 1:15 PM CDT) LIPASE 68(L) 73 - 393 UNITS/L 12/07/2018 2:04 PM CDT [facility] SERUM OR PLASMA SPECIMEN / Unknown 12/07/2018 1:15 PM CDT 12/07/2018 1:45 PM CDT us Generic Conversion Md MIR LABORATORY Final R esult Performing Organization Address [facility] Co de Phone Number [facility] [address] [place] [address], [place] [phone] * (ABNORMAL) COMPREHENSIVE METABOLIC PANEL (12/07/2018 1:15 PM CDT) SODIUM S/P/B 135(L) 136 - 145 MMOL/L 12/07/2018 2:04 PM CDT [facility] POTASSIUM S/P/B 3.8 3.5 - 5.1 MMOL/L 12/07/2018 2:04 PM CDT [facility] CHLORIDE S/P/B 99 98 - 107 MMOL/L 12/07/2018 2:04 PM CDT [facility] CO2 24.5 21.0 - 32.0 MMOL/L 12/07/2018 2:04 PM CDT [facility] GLUCOSE 148(H) 70 - 140 MG/DL 12/07/2018 2:04 [facility] BUN 13 6 - 24 MG/DL 12/07/2018 2:04 PM [facility] CREATININE S/P/B 0.80 0.55 - 1.02 MG/DL 12/07/2018 2:04 PM [facility] CALCIUM S/P/B 9.6 8.4 - 10.5 MG/DL 12/07/2018 2:04 PM [facility] BILIRUBIN TOTAL S/P/B 0.6 0.2 - 1.0 MG/DL 12/07/2018 2:04 PM [facility] ALKALINE PHOSPHATASE S/P/B 87 37 - 98 U/L 12/07/2018 2:04 PM [facility] AST 20 15 - 37 U/L 12/07/2018 2:04 PM [facility] ALT 27 14 - 59 U/L 12/07/2018 2:04 PM [facility] TOTAL PROTEIN S/P/B 8.7(H) 6.4 - 8.2 G/DL 12/07/2018 2:04 PM [facility] ALBUMIN S/P/B 4.3 3.4 - 5.0 G/DL 12/07/2018 2:04 PM [facility] ANION GAP 11.5 5.0 - 15.0 MMOL/L 12/07/2018 2:04 PM [facility] OSMOLALITY (CALC) 283 MOSM/KG 12/07/2018 2:04 PM [facility] Comment:REFERENCE RANGE NOT ESTABLISHED EGFR NON-AFR. AMER. >90 >89 ML/MIN/1 .73 M2 12/07/2018 2:04 PM [facility] EGFR AFR. AMER. >90 >89 ML/MIN/1 .73 M2 12/07/2018 2:04 PM [facility] GFR NOTES THE ESTIMATED GFR IS CALCULATED USING THE 2009 CKD-EPI EQUATION. THE FOLLOWING CATEGORIES FOR GRADING RENAL FUNCTION ARE RECOMMENDED BY THE INTERNATIONAL SOCIETY OF NEPHROLOGY (KDIGO 2012 CLINICAL PRACTICE GUIDELINE). 12/07/2018 2:04 PM [facility] Comment: G1,NORMAL OR HIGH: >89 ml/min/1.73 m2G2,MILDLY DECREASED: 60-89 ml/min/1.73 m2G3A,MILDLY TO MODERATELY DECREASED: 45-59 ml/min/1.73 m2G3B,MODERATELY TO SEVERELY DECREASED: 30-44 ml/min/1.73 m2G4,SEVERELY DECREASED: 15-29 ml/min/1.73 m2G5,KIDNEY FAILURE: <15 ml/min/1.73 m2 PLASMA SPECIMEN / Unknown 12/07/2018 1:15 PM CDT 12/07/2018 1:45 PM CDT us Generic Conversion Md MIR LABORATORY Final R esult [facility] [address] [place] [address], * CBC W/DIFF AUTOMATED (12/07/2018 1:15 PM CDT) WBC 6.1 4.5 - 10.8 x10'3/uL 12/07/2018 1:47 PM CDT [facility] RBC 4.71 4.10 - 5.40 x10'6/uL 12/07/2018 1:47 PM CDT [facility] HGB 14.6 12.0 - 16.0 G/DL 12/07/2018 1:47 PM CDT [facility] HCT 42.4 36.0 - 47.0 % 12/07/2018 1:47 PM CDT [facility] MCV 90.0 78.0 - 100.0 FL 12/07/2018 1:47 PM CDT [facility] MCH 31.0 27.0 - 31.0 PG 12/07/2018 1:47 PM CDT [facility] MCHC 34.4 33.0 - 36.0 G/DL 12/07/2018 1:47 PM CDT [facility] RDW 12.2 11.5 - 14.5 % 12/07/2018 1:47 PM CDT [facility] PLT 283 150 - 350 x10'3/uL 12/07/2018 1:47 PM CDT [facility] MPV 10.0 7.4 - 10.4 FL 12/07/2018 1:47 PM CDT [facility] DIFFERENTIAL COMMENT NORMAL REFERENCE RANGE NOT ESTABLISHED FOR THE PROPORTIONAL LEUKOCYTE DIFFERENTIAL. 12/07/2018 1:47 PM CDT [facility] SEG NEUTROPHILS 51.6 % 9 1:47 PM CDT [facility] LYMPHOCYTES 36.6 % 12/07/2018 1:47 PM CDT [facility] MONOCYTES 8.3 % 12/07/2018 1:47 PM CDT [facility] EOSINOPHILS 2.5 % 12/07/2018 1:47 PM CDT [facility] BASOPHILS 1.0 % 12/07/2018 1:47 PM CDT [facility] IMMATURE GRANS % 0.0 % 12/08/19 19 1:47 PM CDT [facility] NRBC 0.0 % 12/07/2018 1:47 PM CDT [facility] ABS. NEUTROPHILS 3.16 1.60 - 8.30 x10'3/uL 12/07/2018 1:47 PM CDT [facility] ABS. LYMPHOCYTES 2.24 0.80 - 4.70 x10'3/uL 12/07/2018 1:47 PM CDT [facility] ABS. MONOCYTES 0.51 0.00 - 1.50 x10'3/uL 12/07/2018 1:47 PM CDT [facility] ABS. EOSINOPHILS 0.15 0.00 - 0.40 x10'3/uL 12/07/2018 1:47 PM CDT [facility] ABS. BASOPHILS 0.06 0.00 - 0.20 x10'3/uL 12/07/2018 1:47 PM CDT [facility] ABS. IMMATURE GRANULOCYTES 0.00 0.00 - 0.03 x10'3/uL 12/07/2018 1:47 PM CDT [facility] ABS. NUCLEATED RBC'S 0.00 0.00 x10'3/uL 12/07/2018 1:47 PM CDT [facility] OTHER (type in comments) 12/07/2018 1:15 PM CDT 12/07/2018 1:45 PM CDT Comment:WHOLE BLOOD SAMPLE us Generic Conversion Md MIR LABORATORY Final R esult [facility] [address] [place] [address], documented in this encounter Visit Diagnoses Not on filedocumented in this encounter
--- OUTSIDE RECORDS SUMMARY | 2024-08-03 02:10 | XMS_ITS | Encounter Summary ---
Author Organization [facility] Address [facility] [facility] [address] [place] [address] Care Team Providers Care Chip Tuner Name Role Phone Isaias Grier MD Primary Care Provider Encounter Details Date Type Department Care Team (Latest Contact Info) Description 03/20/2019 3:26 PM CDT - 03/20/2019 11:59 PM CDT Hospital Encounter [facility] [address] [place] [address] Isaias Grier MD [address] [place] [phone] Discharge Disposition: Home or Self Care [...] joint documented in this encounter Care Teams Chip Tuner Relationship Specialty Start Date End Date Isaias Grier MD [address] [place] [phone] PCP - General FAMILY PRACTICE 01/29/19 03/18/21 documented as of this encounter
--- OUTSIDE RECORDS SUMMARY | 2024-08-03 02:10 | XMS_ITS | Encounter Summary ---
Author Organization [facility] Address [facility] [facility] [place] [address] [place] [address] Care Team Providers Care Supervisor Border Department Name Role Phone Isaias Grier MD Primary Care Provider Encounter Details Date Type Department Care Team (Latest Contact Info) Description 01/29/2019 3:54 PM CDT - 01/29/2019 11:59 PM CDT Hospital Encounter [facility] [address] [place] [address] Isaias Grier MD [address] [place] [phone] Discharge Disposition: Home or Self Care [...] 1 8 03/01/20 [facility] [place] [address] [facility] [place] BLOOD SUGAR [...] pathologic soft tissue calcifications. Procedure Note Homero Navarrete MD - 01/29/2019 Examination: Left knee, 3 [...] leg documented in this encounter Care Teams Supervisor Border Department Relationship Specialty Start Date End Date Isaias Grier MD [address] [place] [phone] PCP - General FAMILY PRACTICE 01/29/19 03/18/21 documented as of this encounter
--- OUTSIDE RECORDS SUMMARY | 2024-08-03 02:10 | XMS_ITS | Encounter Summary ---
Author Organization [facility] Address [facility] [place] [address] [place] [address] Care Team Providers Care Drafting Layout Worker Name Role Phone Isaias Grier MD Primary Care Provider [phone] Reason for Referral * Imaging (Emergency) - Closed Specialty Diagnoses / Procedures Referred By Alexis salazar Referred To Contact RADIOLOGY Procedures CT HEAD WO CON Sami Aguilera MD Phone: tel: fax: Referral ID Status Reason Start Date Expiration Date Visits Re quested Visits Authorized [id number] Closed 06/10/2019 07/10/2020 1 1 UELS PRODUCTION TECHNICIAN Reason for Visit * Reason Comments Abdominal Pain Encounter Details Date Type Department Care Team (Late st Contact Info) Description 06/10/2019 5:57 AM BIOFUELS PRODUCTION TECHNICIAN - 06/10/2019 7:42 AM BIOFUELS PRODUCTION TECHNICIAN Emergency [facility] [address] [place] [address] [place] [address] Sami Aguilera MD [address] [place] [id number] Abdominal Pain Discharge Disposition: Home or [...] Comments Blood Pressure 98/75 06/10/2019 7:00 AM BIOFUELS PRODUCTION TECHNICIAN Pulse 95 06/10/2019 6:29 AM BIOFUELS PRODUCTION TECHNICIAN Temperature 36.3 ??C (97.3 ??F) 06/10/2019 5:50 AM CS T Respiratory Rate 16 06/10/2019 6:29 AM BIOFUELS PRODUCTION TECHNICIAN Oxygen Saturation 100% 06/10/2019 7:30 AM BIOFUELS PRODUCTION TECHNICIAN Inhaled Oxygen Concentration - - Weight 50.1 kg (110 lb 6.4 oz) 06/10/2019 5:50 A M BIOFUELS PRODUCTION TECHNICIAN Height 165.1 cm (5' 5 ) 06/10/2019 5:50 AM BIOFUELS PRODUCTION TECHNICIAN Body Mass Index 18.37 06/10/2019 5:50 AM BIOFUELS PRODUCTION TECHNICIAN documented in this encounter Discharge Instructions * Attachments The following attachments cannot be sent through Care Everywhere. * Headache, Adult (Kosovan) * Hyperglycemia Discharge Instructions, Adult (K[place]ovan) documented in this encounter Medications at Time [...] AM CST Report given to RYAN Martin UELS PRODUCTION TECHNICIAN * Fela Rojas RN - 06/10/2019 6:48 AM CST LEFT ER 0620/RETURN TO ER 0625 UELS PRODUCTION TECHNICIAN * Fela Rojas RN - 06/10/2019 6:48 AM CST LEFT ER 0620/RETURN TO ER 0625 UELS PRODUCTION TECHNICIAN * Fela Rojas RN - 06/10/2019 6:47 AM CST LEFT ER 0620/RETURN TO ER 0625 UELS PRODUCTION TECHNICIAN * Fela Rojas RN - 06/10/2019 6:47 AM CST LEFT ER 0620/RETURN TO ER 0625 UELS PRODUCTION TECHNICIAN * Fela Rojas RN - 06/10/2019 6:24 [address] CST Back from CT UELS PRODUCTION TECHNICIAN * Fela Rojas RN - 06/10/2019 6:20 AM CST Down to CT UELS PRODUCTION TECHNICIAN * Soheila Trujillo - 06/10/2019 5:52 AM CST Blood Glucose obtained. 265. UELS PRODUCTION TECHNICIAN * Fela Rojas RN - 06/10/2019 5:50 AM CST Arrives via EMS, abdominal pain, n/v and head ache. States she might of had a seizure last night, but is unaware. Is a type 1 DM, states her blood sugar has been high. UELS PRODUCTION TECHNICIAN * Nahum Bang MD - 06/10/2019 5:49 [...] file Gets together: Not on file Attends yarsani service: Not on file Active member of [...] HEAD WO CON Final Result by User, [id number] (06/10 639) EXAMINATION: CT HEAD WITHOUT CONTRAST [...] HEADACHE 2. Hyperglycemia HYPERGLYCEMIA Isaias Grier MD [address] [place] [phone] Schedule an appointment as soon as possible for a visit New Prescriptions PROMETHAZINE 25 MG TABLET Take 1 tablet (25 mg total) by mouth every 6 (six) hours as needed for Nausea. Sami Aguilera MD 06/10/19 0653 Nahum Bang MD 06/10/19 0728 UELS PRODUCTION TECHNICIAN UELS PRODUCTION TECHNICIAN documented in this encounter Plan of Treatment Not on file documented as of this encounter Procedures Procedure Name Priority Date/Time Associated Diagnosis Comments URINALYSIS WI REFLEX TO CULTURE STAT 06/10/2019 7:10 AM BIOFUELS PRODUCTION TECHNICIAN TEST URINE STAT 06/10/2019 7:[address] [address] [address] HEAD WO CON STAT 06/10/2019 6:28 AM BIOFUELS PRODUCTION TECHNICIAN BETA-HYDROXYBUTYRATE STAT 06/10/2019 6:02 AM BIOFUELS PRODUCTION TECHNICIAN BLOOD GAS, VENOUS STAT 06/10/2019 6:0 2 AM BIOFUELS PRODUCTION TECHNICIAN COMPREHENSIVE METABOLIC PANEL STAT 06/10/2019 6:02 AM BIOFUELS PRODUCTION TECHNICIAN CBC W/DIFF AUTOMATED STAT 06/10/2019 6:02 AM BIOFUELS PRODUCTION TECHNICIAN LIPASE STAT 06/10/2019 6:02 AM BIOFUELS PRODUCTION TECHNICIAN documented in this encounter Results * (ABNORMAL) URINALYSIS WI REFLEX TO CULTURE (06/10/2019 7:10 AM BIOFUELS PRODUCTION TECHNICIAN) COLOR (U) YELLOW 06/10/2019 7:24 AM BIOFUELS PRODUCTION TECHNICIAN [facility] TRANSPARENCY CLEAR 06/10/2019 7:24 AM BIOFUELS PRODUCTION TECHNICIAN [facility] SPECIFIC GRAVITY (U) 1.025 1.000 - 1.025 06/10/2019 7:24 AM BIOFUELS PRODUCTION TECHNICIAN [facility] U PH 5.5 5.0 - 8.0 06/10/2019 7:24 AM BIOFUELS PRODUCTION TECHNICIAN [facility] LEUKOCYTES (U) NEGATIVE NEGATIVE 06/10/2019 7:24 AM BIOFUELS PRODUCTION TECHNICIAN [facility] NITRITES NEGATIVE NEGATIVE 06/10/2019 7:[address] [facility] PROTEIN (U) NEGATIVE NEGATIVE 06/10/2019 7:[address] [facility] URINE GLUCOSE 2+(A) NEGATIVE 06/10/2019 7:24 AM BIOFUELS PRODUCTION TECHNICIAN [facility] KETONES MG/DL (U) 2+(A) NEGATIVE 06/10/2019 7:24 AM BIOFUELS PRODUCTION TECHNICIAN [facility] UROBILINOGEN 0.2 <1.0 EU/DL 06/10/2019 7:[address] [facility] BLOOD (U) NEGATIVE NEGATIVE 06/10/2019 7:[address] [facility] WBC/HPF 0-5 0 - 5 /HPF 06/10/2019 7:24 AM BIOFUELS PRODUCTION TECHNICIAN [facility] EPI/HPF MANY /LPF 06/10/2019 7:24 AM BIOFUELS PRODUCTION TECHNICIAN [facility] BACTERIA (U) 1+ /HPF 06/10/2019 7:[address] [facility] BILIRUBIN (U) NEGATIVE NEGATIVE 06/10/2019 7:24 AM BIOFUELS PRODUCTION TECHNICIAN [facility] CULTURE & SENSITIVITY INDICATED? NOT INDICATED 06/10/2019 7:24 AM BIOFUELS PRODUCTION TECHNICIAN [facility] URINE SPECIMEN FROM URETHRA / Unknown 06/10/2019 7:10 AM BIOFUELS PRODUCTION TECHNICIAN Sami Aguilera MD URINE ORDERABLES [place] [address], * TEST URINE (06/10/2019 7:10 AM BIOFUELS PRODUCTION TECHNICIAN) PREG TEST NEGATIVE 06/10/2019 7:24 AM BIOFUELS PRODUCTION TECHNICIAN [facility] SPECIFIC GRAVITY (U) 1.025 06/10/2019 7:24 AM BIOFUELS PRODUCTION TECHNICIAN [facility] URINE SPECIMEN FROM URETHRA / Unknown 06/10/2019 7:10 AM BIOFUELS PRODUCTION TECHNICIAN us Sami Aguilera MD URINE ORDERABLES Final Result [facility] [address] [place] [address], [place] [phone] * CT HEAD WO CON (06/10/2019 6:28 AM BIOFUELS PRODUCTION TECHNICIAN) Anatomical Region Laterality Modality Head Computed Tomogra phy 06/10/2019 6:36 AM BIOFUELS PRODUCTION TECHNICIAN Impressions 06/10/2019 6:38 AM BIOFUELS PRODUCTION TECHNICIAN IMPRESSION: No acute intracranial abnormality. Electronically signed by: ??Javon Davis M.D. 06/10/2019 6:38:00 AM Narrative 06/10/2019 6:38 AM BIOFUELS PRODUCTION TECHNICIAN EXAMINATION: CT HEAD WITHOUT CONTRAST DATE: 06/10/2019 [...] (ABNORMAL) Blood gas, venous (06/10/2019 6:02 AM BIOFUELS PRODUCTION TECHNICIAN) O2 SAT VENOUS 93(H) 40 - 70 % 06/10/2019 6:12 AM BIOFUELS PRODUCTION TECHNICIAN [facility] PH VENOUS 7.35 7.35 - 7.45 06/10/2019 6:[address] [facility] PCO2 VENOUS 42.2 41.0 - 51.0 MMHG 06/10/2019 6:[address] [facility] PO2 VENOUS 74.0(H) 20.0 - 40.0 MM HG 06/10/2019 6:[address] [facility] BASE DEFICIT VENOUS 2.5 MMOL/L 06/10/2019 6:[address] [facility] BICARB VENOUS 22.5 22.0 - 29.0 MMOL/L 06/10/2019 6:[address] [facility] TCO2 23.8(L) 25.0 - 29.0 MMOL/L 06/10/2019 6:[address] [facility] LITER FLOW AIR 06/10/2019 6:[address] [facility] Blood specimen (specimen) 06/10/2019 6:02 AM BIOFUELS PRODUCTION TECHNICIAN Sami Aguilera MD LABORATORY Final Result [facility] [address] [place] [address], * (ABNORMAL) BETA-HYDROXYBUTYRATE (06/10/2019 6:02 AM BIOFUELS PRODUCTION TECHNICIAN) BETA-HYDROXYBU TYRATE 2.9(H) 0.0 - 0.3 MMOL/L 06/10/2019 6:12 AM BIOFUELS PRODUCTION TECHNICIAN [facility] 06/10/2019 6:02 AM BIOFUELS PRODUCTION TECHNICIAN us Sami Aguilera MD LABORATORY Final Result [facility] [address] [place] [address], * LIPASE (06/10/2019 6:02 AM BIOFUELS PRODUCTION TECHNICIAN) LIPASE 84 73 - 393 UNITS/L 06/10/2019 6:[address] [facility] 06/10/2019 6:02 AM BIOFUELS PRODUCTION TECHNICIAN Sami Aguilera MD LABORATORY Final Result Performing Organization Address City/[facility]/ZIP Co de Phone Number [facility] [address] [place] [address], * (ABNORMAL) COMPREHENSIVE METABOLIC PANEL (06/10/2019 6:02 AM BIOFUELS PRODUCTION TECHNICIAN) SODIUM S/P/B 133(L) 136 - 145 MMOL/L 06/10/2019 6:[address] [facility] POTASSIUM S/P/B 4.1 3.5 - 5.1 MMOL/L 06/10/2019 6:[address] [facility] CHLORIDE S/P/B 99 98 - 107 MMOL/L 06/10/2019 6:[address] [facility] CO2 22.0 21.0 - 32.0 MMOL/L 06/10/2019 6:[address] [facility] GLUCOSE 288(H) 70 - 99 MG/DL 06/10/2019 6:[address] [facility] Comment: FASTING GLUCOSE 100 TO 125 MG/DL IS CONSISTENT WITH IMPAIRED FASTING GLUCOSE. FASTING GLUCOSE >125 MG/DL IS CONSISTENT WITH DIABETES. RANDOM GLUCOSE >200 MG/DL WITH HYPERGLYCEMIC SYMPTOMS IS CONSISTENT WITH DIABETES. PER ADA GUIDELINES BUN 22 6 - 24 MG/DL 06/10/2019 6:[address] [facility] CREATININE S/P/B 0.75 0.55 - 1.02 MG/DL 06/10/2019 6:[address] [facility] CALCIUM S/P/B 8.8 8.4 - 10.5 MG/DL 06/10/2019 6:[address] [facility] BILIRUBIN TOTAL S/P/B 0.6 0.2 - 1.0 MG/DL 06/10/2019 6:[address] [facility] ALKALINE PHOSPHATASE S/P/B 76 37 - 98 U/L 06/10/2019 6:[address] [facility] AST 18 15 - 37 U/L 06/10/2019 6:[address] [facility] ALT 23 14 - 59 U/L 06/10/2019 6:[address] [facility] TOTAL PROTEIN S/P/B 7.4 6.4 - 8.2 G/DL 06/10/2019 6:[address] [facility] ALBUMIN S/P/B 3.7 3.4 - 5.0 G/DL 06/10/2019 6:[address] [facility] ANION GAP 12.0 5.0 - 15.0 MMOL/L 06/10/2019 6:[address] [facility] OSMOLALITY (CALC) 290 MOSM/KG 06/10/2019 6:[address] [facility] Comment:REFERENCE RANGE NOT ESTABLISHED EGFR NON-AFR. AMER. >90 >89 ML/MIN/1 .73 M2 06/10/2019 6:[address] [facility] EGFR AFR. AMER. >90 >89 ML/MIN/1 .73 M2 06/10/2019 6:[address] [facility] GFR NOTES THE ESTIMATED GFR IS CALCULATED USING THE 2009 CKD-EPI EQUATION. THE FOLLOWING CATEGORIES FOR GRADING RENAL FUNCTION ARE RECOMMENDED BY THE INTERNATIONAL SOCIETY OF NEPHROLOGY (KDIGO 2012 CLINICAL PRACTICE GUIDELINE). 06/10/2019 6:[address] [facility] Comment: G1,NORMAL OR HIGH: >89 ml/min/1.73 m2 G2,MILDLY DECREASED: 60-89 ml/min/1.73 m2 G3A,MILDLY TO MODERATELY DECREASED: 45-59 ml/min/1.73 m2 G3B,MODERATELY TO SEVERELY DECREASED: 30-44 ml/min/1.73 m2 G4,SEVERELY DECREASED: 15-29 ml/min/1.73 m2 G5,KIDNEY FAILURE: <15 ml/min/1.73 m2 06/10/2019 6:02 AM BIOFUELS PRODUCTION TECHNICIAN Sami Aguilera MD LABORATORY Final Result [facility] [address] [place] [address], * CBC W/DIFF AUTOMATED (06/10/2019 6:02 AM BIOFUELS PRODUCTION TECHNICIAN) WBC 7.2 4.5 - 10.8 x10'3/uL 06/10/2019 6:[address] [facility] RBC 4.51 4.10 - 5.40 x10'6/uL 06/10/2019 6:[address] [facility] HGB 14.0 12.0 - 16.0 G/DL 06/10/2019 6:[address] [facility] HCT 40.8 36.0 - 47.0 % 06/10/2019 6:[address] [facility] MCV 90.5 78.0 - 100.0 FL 06/10/2019 6:[address] [facility] MCH 31.0 27.0 - 31.0 PG 06/10/2019 6:[address] [facility] MCHC 34.3 33.0 - 36.0 G/DL 06/10/2019 6:[address] [facility] RDW 11.9 11.5 - 14.5 % 06/10/2019 6:[address] [facility] PLT 282 150 - 350 x10'3/uL 06/10/2019 6:[address] [facility] MPV 10.0 7.4 - 10.4 FL 06/10/2019 6:[address] [facility] DIFFERENTIAL COMMENT NORMAL REFERENCE RANGE NOT ESTABLISHED FOR THE PROPORTIONAL LEUKOCYTE DIFFERENTIAL. 06/10/2019 6:[address] [facility] SEG NEUTROPHILS 65.7 % 9 6:[address] [facility] LYMPHOCYTES 26.1 % 06/10/2019 6:13 AM BIOFUELS PRODUCTION TECHNICIAN [facility] MONOCYTES 6.3 % 06/10/2019 6:13 AM BIOFUELS PRODUCTION TECHNICIAN [facility] EOSINOPHILS 1.1 % 06/10/2019 6:[address] [facility] BASOPHILS 0.7 % 06/10/2019 6:[address] [facility] IMMATURE GRANS % 0.1 % 06/10/20 6:13 AM BIOFUELS PRODUCTION TECHNICIAN [facility] NRBC 0.0 % 06/10/2019 6:13 AM BIOFUELS PRODUCTION TECHNICIAN [facility] ABS. NEUTROPHILS 4.71 1.60 - 8.30 x10'3/uL 06/10/2019 6:13 AM BIOFUELS PRODUCTION TECHNICIAN [facility] ABS. LYMPHOCYTES 1.87 0.80 - 4.70 x10'3/uL 06/10/2019 6:[address] [facility] ABS. MONOCYTES 0.45 0.00 - 1.50 x10'3/uL 06/10/2019 6:13 AM BIOFUELS PRODUCTION TECHNICIAN [facility] ABS. EOSINOPHILS 0.08 0.00 - 0.40 x10'3/uL 06/10/2019 6:13 AM BIOFUELS PRODUCTION TECHNICIAN [facility] ABS. BASOPHILS 0.05 0.00 - 0.20 x10'3/uL 06/10/2019 6:[address] [facility] ABS. IMMATURE GRANULOCYTES 0.01 0.00 - 0.03 x10'3/uL 06/10/2019 6:[address] [facility] ABS. NUCLEATED RBC'S 0.00 0.00 x10'3/uL 06/10/2019 6:[address] [facility] 06/10/2019 6:02 AM BIOFUELS PRODUCTION TECHNICIAN us Sami Aguielra MD LABORATORY Final Result [facility] [address] [place] [address], documented in this encounter Visit Diagnoses Diagnosis Headache- Primary Hyperglycemia Other abnormal glucose documented in this encounter Administered Medications Inactive Administered Medications - up to 3 most recent administrations Medication Order MAR Action Action Date Dose Rate Site morphine injection 4 mg 4 mg, Intravenous, Once, 1 dose, On Sun06/10/19 at 0615 Given 06/10/2019 6:26 AM BIOFUELS PRODUCTION TECHNICIAN 4 mg promethazine (PHENERGAN) injection 12.5 mg 12.5 mg, Intravenous, Once, 1 dose, On Sun06/10/19 at 0645 Given 06/10/2019 6:36 AM BIOFUELS PRODUCTION TECHNICIAN 12.5 mg sodium chloride 0.9% bolus infusion SOLN 1,000 mL 1,000 mL, Intravenous, Administer over 15 Minutes, Once, 1 dose, On Sun06/10/19 at 0615 New Bag 06/10/2019 6:27 AM BIOFUELS PRODUCTION TECHNICIAN 1,000 mLs documented in this encounter Active and Recently Administered Medications Times are shown in BIOFUELS PRODUCTION TECHNICIAN. Scheduled Medication Order 06/08/2019 06/09/2019 06/10/2019 morphine [...] RN) documented in this encounter Care Teams Drafting Layout Worker Relationship Specialty Start Date End Date Isaias Grier MD [address] [place] [phone] PCP - General FAMILY PRACTICE 01/29/19 03/18/21 documented as of this encounter
--- OUTSIDE RECORDS SUMMARY | 2024-08-03 02:10 | XMS_ITS | Encounter Summary ---
Author Organization [facility] Address Critical access hospital[facility] [place] [address] [place] [address] Care Team Providers Care Legal Clerk Name Role Phone Unavailable Primary Care Provider Unavailabl e Encounter Details Date Type Department Care Team (Late st Contact Info) Description 11/06/[address] [address] [place] [address] Isaias Grier MD [address] [place] [phone] Social History Tobacco Use Types Packs/Day [...]
--- OUTSIDE RECORDS SUMMARY | 2024-08-03 02:10 | XMS_ITS | Encounter Summary ---
Author Organization [facility] Address Count includes the [facility] [place] [address] [place] [address] Care Team Providers Care Submarine Advisory Team Watch Officer Name Role Phone Unavailable Primary Care Provider Unavailabl e Reason for Visit * Reason Comments Echo (SCAN) Encounter Details Date Type Department Care Team ([facility] st Contact Info) Description 09/30/2018 Scan [facility] [address] [place] [phone] Scanned, Documents Echo (SCAN) Social History Tobacco [...]
--- OUTSIDE RECORDS SUMMARY | 2024-08-03 02:10 | XMS_ITS | Encounter Summary ---
Author Organization [facility] Address [facility] [place] [address] [place] [address] Care Team Providers Care Spring Clipper Name Role Phone Unavailable Primary Care Provider Unavailabl e Encounter Details Date Type Department Care Team (Late st Contact Info) Description 11/14/2018 Abstract [facility] [address] [place] [address] Sami Aguilera MD [address] [place] [address] Social History Tobacco Use Types Packs/Day [...] GLUCOSE BLOOD, QNT (11/14/2018 6:57 AM CDT) [facility] GLUCOSE POC 360(H) 70 - 140 MG/DL 11/14/2018 6:59 AM CDT [facility] ORDERS INTERFACE 11/14/2018 6:57 AM CDT 11/14/2018 6:59 AM CDT us Generic Conversion Md MIR LABORATORY Final R esult [facility] ORDERS INTERFACE US * (ABNORMAL) Blood gas, venous (11/14/2018 5:17 AM CDT) [facility] O2 SAT VENOUS 90(H) 40 - 70 % 11/14/2018 5:30 AM CDT [facility] PH VENOUS 7.17(LL) 7.35 - 7.45 11/14/2018 5:30 AM CDT [facility] Comment:CRITICAL VALUECALLED [facility] [place] [address]30READ BACK AND VERIFIED PCO2 26.2(L) 41.0 - 51.0 MMHG 11/14/2018 5:30 AM CDT [facility] PO2 VENOUS 82.0(H) 20.0 - 40.0 MM HG 11/14/2018 5:30 AM CDT [facility] BASE DEFICIT VENOUS 18.4 MMOL/L 11/14/2018 5:30 AM CDT [facility] BICARB VENOUS 9.1(L) 22.0 - 29.0 MMOL/L 11/14/2018 5:30 AM CDT [facility] TCO2 9.9(L) 25.0 - 29.0 MMOL/L 11/14/2018 5:30 AM CDT [facility] LITER FLOW ROOM AIR 11/14/2018 5:23 AM CDT [facility] 11/14/2018 5:17 AM CDT 11/14/2018 5:22 AM CDT us Generic Conversion Md MIR LABORATORY Final R esult Performing Organization Address [facility]/ZIP Co de Phone Number [facility] [address] [place] [address], * (ABNORMAL) LIPASE (11/14/2018 5:17 AM CDT) LIPASE 61(L) 73 - 393 UNITS/L 11/14/2018 5:50 AM CDT [facility] SERUM OR PLASMA SPECIMEN / Unknown 11/14/2018 5:17 AM CDT 11/14/2018 5:21 AM CDT us Generic Conversion Md MIR LABORATORY Final R esult Performing Organization Address [facility] Co de Phone Number [facility] [address] [place] [address], [place] [phone] * (ABNORMAL) LACTIC ACID (11/14/2018 5:17 AM CDT) LACTIC ACID VENOUS 3.0(H) 0.4 - 2.0 MMOL/L 11/14/2018 5:44 AM CDT [facility] Comment: AN ORDER FOR A REPEAT LACTIC ACID TEST IS REQUIRED WITHIN 6 HOURS OF DIAGNOSIS ON A PATIENT WITH SEVERE SEPSIS. PLASMA SPECIMEN / Unknown 11/14/2018 5:17 AM CDT 11/14/2018 5:21 AM CDT us Generic Conversion Md MIR LABORATORY Final R esult Performing Organization Address City/[facility]/ZIP Co de Phone Number [facility] [address] [place] [address], * (ABNORMAL) COMPREHENSIVE METABOLIC PANEL (11/14/2018 5:17 AM CDT) SODIUM S/P/B 129(L) 136 - 145 MMOL/L 11/14/2018 5:50 AM CDT [facility] POTASSIUM S/P/B 4.6 3.5 - 5.1 MMOL/L 11/14/2018 5:50 AM CDT [facility] CHLORIDE S/P/B 92(L) 98 - 107 MMOL/L 11/14/2018 5:50 AM CDT [facility] CO2 9.3(LL) 21.0 - 32.0 MMOL/L 11/14/2018 5:50 AM CDT [facility] Comment:ETCR CALLED CRITICAL RESULTS AT [id number] TO AND READ BACK BY DIANDRA GLUCOSE 522(HH) 70 - 140 MG/DL 11/14/2018 5:50 AM CDT [facility] Comment:ETCR CALLED CRITICAL RESULTS AT [id number] TO AND READ BACK BY DIANDRA BUN 28(H) 6 - 24 MG/DL 11/14/2018 5:50 AM CDT [facility] CREATININE S/P/B 1.31(H) 0.55 - 1.02 MG/DL 11/14/2018 5:50 AM CDT [facility] CALCIUM S/P/B 9.3 8.4 - 10.5 MG/DL 11/14/2018 5:50 AM CDT [facility] BILIRUBIN TOTAL S/P/B 1.2(H) 0.2 - 1.0 MG/DL 11/14/2018 5:50 AM CDT [facility] ALKALINE PHOSPHATASE S/P/B 98 37 - 98 U/L 11/14/2018 5:50 AM CDT [facility] AST 26 15 - 37 U/L 11/14/2018 5:50 AM CDT [facility] ALT 29 14 - 59 U/L 11/14/2018 5:50 AM CDT [facility] TOTAL PROTEIN S/P/B 8.7(H) 6.4 - 8.2 G/DL 11/14/2018 5:50 AM CDT [facility] ALBUMIN S/P/B 4.6 3.4 - 5.0 G/DL 11/14/2018 5:50 AM CDT [facility] ANION GAP 27.7 MMOL/L 11/14/2018 5:50 AM CDT [facility] Comment:REFERENCE RANGE NOT ESTABLISHED OSMOLALITY (CALC) 297 MOSM/KG 11/14/2018 5:50 AM CDT [facility] Comment:REFERENCE RANGE NOT ESTABLISHED EGFR NON-AFR. AMER. 55(L) >89 ML/MIN/1 .73 M2 11/14/2018 5:50 AM CDT [facility] EGFR AFR. AMER. 64(L) >89 ML/MIN/1 .73 M2 11/14/2018 5:50 AM CDT [facility] GFR NOTES THE ESTIMATED GFR IS CALCULATED USING THE 2009 CKD-EPI EQUATION. THE FOLLOWING CATEGORIES FOR GRADING RENAL FUNCTION ARE RECOMMENDED BY THE INTERNATIONAL SOCIETY OF NEPHROLOGY (KDIGO 2012 CLINICAL PRACTICE GUIDELINE). 11/14/2018 5:50 AM CDT [facility] Comment: G1,NORMAL OR HIGH: >89 ml/min/1.73 m2G2,MILDLY DECREASED: 60-89 ml/min/1.73 m2G3A,MILDLY TO MODERATELY DECREASED: 45-59 ml/min/1.73 m2G3B,MODERATELY TO SEVERELY DECREASED: 30-44 ml/min/1.73 m2G4,SEVERELY DECREASED: 15-29 ml/min/1.73 m2G5,KIDNEY FAILURE: <15 ml/min/1.73 m2 PLASMA SPECIMEN / Unknown 11/14/2018 5:17 AM CDT 11/14/2018 5:21 AM CDT us Generic Conversion Md MIR LABORATORY Final R esult [facility] [address] [place] [address], * (ABNORMAL) CBC W/DIFF AUTOMATED (11/14/2018 5:17 AM CDT) WBC 20.1(H) 4.5 - 10.8 x10'3/uL 11/14/2018 5:29 AM CDT [facility] RBC 4.75 4.10 - 5.40 x10'6/uL 11/14/2018 5:29 AM CDT [facility] HGB 14.6 12.0 - 16.0 G/DL 11/14/2018 5:29 AM CDT [facility] HCT 43.0 36.0 - 47.0 % 11/14/2018 5:29 AM CDT [facility] MCV 90.5 78.0 - 100.0 FL 11/14/2018 5:29 AM CDT [facility] MCH 30.7 27.0 - 31.0 PG 11/14/2018 5:29 AM CDT [facility] MCHC 34.0 33.0 - 36.0 G/DL 11/14/2018 5:29 AM CDT [facility] RDW 11.4(L) 11.5 - 14.5 % 11/14/2018 5:29 AM CDT [facility] PLT 283 150 - 350 x10'3/uL 11/14/2018 5:29 AM CDT [facility] MPV 10.6(H) 7.4 - 10.4 FL 11/14/2018 5:29 AM CDT [facility] DIFFERENTIAL COMMENT NORMAL REFERENCE RANGE NOT ESTABLISHED FOR THE PROPORTIONAL LEUKOCYTE DIFFERENTIAL. 11/14/2018 5:29 AM CDT [facility] SEG NEUTROPHILS 81.0 % 9 5:29 AM CDT [facility] LYMPHOCYTES 10.8 % 11/14/2018 5:29 AM CDT [facility] MONOCYTES 6.9 % 11/14/2018 5:29 AM CDT [facility] EOSINOPHILS 0.2 % 11/14/2018 5:29 AM CDT [facility] BASOPHILS 0.6 % 11/14/2018 5:29 AM CDT [facility] IMMATURE GRANS % 0.5 % 04/25/20 19 5:29 AM CDT [facility] NRBC 0.0 % 11/14/2018 5:29 AM CDT [facility] ABS. NEUTROPHILS 16.26(H) 1.60 - 8.30 x10'3/uL 11/14/2018 5:29 AM CDT [facility] ABS. LYMPHOCYTES 2.18 0.80 - 4.70 x10'3/uL 11/14/2018 5:29 AM CDT [facility] ABS. MONOCYTES 1.39 0.00 - 1.50 x10'3/uL 11/14/2018 5:29 AM CDT [facility] ABS. EOSINOPHILS 0.04 0.00 - 0.40 x10'3/uL 11/14/2018 5:29 AM CDT [facility] ABS. BASOPHILS 0.13 0.00 - 0.20 x10'3/uL 11/14/2018 5:29 AM CDT [facility] ABS. IMMATURE GRANULOCYTES 0.10(H) 0.00 - 0.03 x10'3/uL 11/14/2018 5:29 AM CDT [facility] ABS. NUCLEATED RBC'S 0.00 0.00 x10'3/uL 11/14/2018 5:29 AM CDT [facility] OTHER (type in comments) 11/14/2018 5:17 AM CDT 11/14/2018 5:21 AM CDT Comment:WHOLE BLOOD SAMPLE us Generic Conversion Md MIR LABORATORY Final R esult [facility] [address] [place] [address], * (ABNORMAL) BETA-HYDROXYBUTYRATE (11/14/2018 5:17 AM CDT) BETA-HYDROXYBU TYRATE 5.6(H) 0.0 - 0.3 MMOL/L 11/14/2018 5:30 AM CDT [facility] SERUM OR PLASMA SPECIMEN / Unknown 11/14/2018 5:17 AM CDT 11/14/2018 5:21 AM CDT us Generic Conversion Md MIR LABORATORY Final R theo [facility] [address] [place] [address], * (ABNORMAL) GLUCOSE BLOOD, QNT (11/14/2018 5:05 AM CDT) Pathologist [facility] GLUCOSE POC 475(H) 70 - 140 MG/DL 11/14/2018 5:06 AM CDT [facility] ORDERS INTERFACE 11/14/2018 5:05 AM CDT 11/14/2018 5:06 AM CDT us Generic Conversion Md MIR LABORATORY Final R theo [facility] ORDERS INTERFACE US documented in this encounter Visit Diagnoses Diagnosis Type 1 diabetes mellitus with ketoacidosis and without coma (CMS/HCC [facility]) Type I (juvenile type) diabetes mellitus with ketoacidosis, not stated as uncontrolled documented in this encounter
--- OUTSIDE RECORDS SUMMARY | 2024-08-03 02:10 | XMS_ITS | Encounter Summary ---
Author Organization [facility] Address [facility] [facility] [place] [address] [place] [address] Care Team Providers Care Teller Head Name Role Phone Unavailable Primary Care Provider Unavailabl e Reason for Visit * Reason Comments Holter Monitor Report (SCAN) Encounter Details Date Type Department Care Team ([facility] Contact Info) Description 12/20/2018 Scan [facility] [address] [place] [id number] Scanned, Documents Holter Monitor Report (SCAN) Social [...]
--- OUTSIDE RECORDS SUMMARY | 2024-08-03 02:10 | XMS_ITS | Encounter Summary ---
Author Organization [facility] Address [facility] [facility] [place] [address] [place] [address] Care Team Providers Care Assistant Housekeeping Manager Name Role Phone Unavailable Primary Care Provider Unavailabl e Encounter Details Date Type Department Care Team (Late st Contact Info) Description 09/30/[address] [facility] [address] [place] [address] Isaias Grier MD [address] [place] [phone] Social History Tobacco Use Types Packs/Day [...]
--- OUTSIDE RECORDS SUMMARY | 2024-08-03 02:10 | XMS_ITS | Encounter Summary ---
Author Organization [facility] Address [address] [facility] [place] [address] [place] [address] Care Team Providers Care Set Illustrator Name Role Phone Unavailable Primary Care Provider Unavailabl e Encounter Details Date Type Department Care Team (Late st Contact Info) Description 09/03/2018 Abstract [facility] [address] [place] [address] Monserrat Kim MD [address] [facility] [place] [address] Social History Tobacco Use Types [...] BLOOD, QNT Routine 09/03/2018 8: 46 AM HAND CANDLE MOLDER PARTIAL THROMBOPLASTIN TIME,PTT STAT 09/03/2018 8:25 AM HAND CANDLE MOLDER PROTHROMBIN TIME, VENOUS STAT 09/03/2018 8:25 AM HAND CANDLE MOLDER COMPREHENSIVE METABOLIC PANEL STAT 09/03/2018 8:25 AM HAND CANDLE MOLDER LACTIC ACID STAT 09/03/2018 8:25 AM HAND CANDLE MOLDER CBC W/DIFF AUTOMATED STAT 09/03/2018 8:25 AM HAND CANDLE MOLDER LIPASE STAT 09/03/2018 8:25 AM HAND CANDLE MOLDER documented in this encounter Results * (ABNORMAL) GLUCOSE BLOOD, QNT (09/03/2018 8:46 AM HAND CANDLE MOLDER) GLUCOSE POC 161(H) 70 - 140 MG/DL 09/03/2018 9:48 AM HAND CANDLE MOLDER [facility] ORDERS INTERFACE 09/03/2018 8:46 AM HAND CANDLE MOLDER 09/03/2018 9:48 AM HAND CANDLE MOLDER us Generic Conversion Md MIR LABORATORY Final R esult [facility] ORDERS INTERFACE US * PARTIAL THROMBOPLASTIN TIME,PTT (09/03/2018 8:25 AM HAND CANDLE MOLDER) Pathologist [facility] PTT 29.9 25.0 - 34.0 SEC 09/03/2018 9:45 AM HAND CANDLE MOLDER [facility] Comment:THERAPEUTIC RANGE: 4 5.0-75.0 SEC PLASMA SPECIMEN / Unknown 09/03/2018 8:25 AM HAND CANDLE MOLDER 09/03/2018 9:31 AM HAND CANDLE MOLDER us Generic Conversion Md MIR LABORATORY Final R esult [facility] [place] [address], * PROTIME/INR, VENOUS (09/03/2018 8:25 AM HAND CANDLE MOLDER) PROTIME 12.8 10.9 - 13.3 SEC 09/03/2018 9:45 AM HAND CANDLE MOLDER [facility] INR 1.1 0.9 - 1.1 09/03/2018 9:45 AM HAND CANDLE MOLDER [facility] 09/03/2018 8:25 AM HAND CANDLE MOLDER 09/03/2018 9:31 AM HAND CANDLE MOLDER us Generic Conversion Md MIR LABORATORY Final R eslucina Performing Organization Address [facility]/ZIP Co de Phone Number [facility] [address] [place] [address], * (ABNORMAL) LIPASE (09/03/2018 8:25 AM HAND CANDLE MOLDER) LIPASE 45(L) 73 - 393 UNITS/L 09/03/2018 9:58 AM HAND CANDLE MOLDER [facility] SERUM OR PLASMA SPECIMEN / Unknown 09/03/2018 8:25 AM HAND CANDLE MOLDER 09/03/2018 9:31 AM HAND CANDLE MOLDER us Generic Conversion Md MIR LABORATORY Final R theo Performing Organization Address [facility] Co de Phone Number [facility] [address] [place] [address], [place] [phone] * LACTIC ACID (09/03/2018 8:25 AM HAND CANDLE MOLDER) LACTIC ACID VENOUS 0.7 0.4 - 2.0 MMOL/L 09/03/2018 10:01 AM HAND CANDLE MOLDER [facility] PLASMA SPECIMEN / Unknown 09/03/2018 8:25 AM HAND CANDLE MOLDER 09/03/2018 9:31 AM HAND CANDLE MOLDER us Generic Conversion Md MIR LABORATORY Final R eslucina Performing Organization Address [facility]/ZIP Co de Phone Number [facility] [address] [place] [address], [place] [phone] * (ABNORMAL) COMPREHENSIVE METABOLIC PANEL (09/03/2018 8:25 AM HAND CANDLE MOLDER) SODIUM S/P/B 137 136 - 145 MMOL/L 09/03/2018 9:58 AM HAND CANDLE MOLDER [facility] POTASSIUM S/P/B 3.7 3.5 - 5.1 MMOL/L 09/03/2018 9:58 AM [facility] CHLORIDE S/P/B 100 98 - 107 MMOL/L 09/03/2018 9:58 AM [facility] CO2 20.9(L) 21.0 - 32.0 MMOL/L 09/03/2018 9:58 AM [facility] GLUCOSE 175(H) 70 - 140 MG/DL 09/03/2018 9:58 AM [facility] BUN 12 6 - 24 MG/DL 09/03/2018 9:58 AM [facility] CREATININE S/P/B 0.72 0.55 - 1.02 MG/DL 09/03/2018 9:58 AM [facility] CALCIUM S/P/B 8.7 8.4 - 10.5 MG/DL 09/03/2018 9:58 AM [facility] BILIRUBIN TOTAL S/P/B 0.7 0.2 - 1.0 MG/DL 09/03/2018 9:58 AM [facility] ALKALINE PHOSPHATASE S/P/B 67 37 - 98 U/L 09/03/2018 9:58 AM [facility] AST 14(L) 15 - 37 U/L 09/03/2018 9:58 AM [facility] ALT 19 14 - 59 U/L 09/03/2018 9:58 AM [facility] TOTAL PROTEIN S/P/B 7.1 6.4 - 8.2 G/DL 09/03/2018 9:58 AM [facility] ALBUMIN S/P/B 3.4 3.4 - 5.0 G/DL 09/03/2018 9:58 AM [facility] ANION GAP 16.1 MMOL/L 09/03/2018 9:58 AM [facility] Comment:REFERENCE RANGE NOT ESTABLISHED OSMOLALITY (CALC) 288 MOSM/KG 09/03/2018 9:58 AM [facility] Comment:REFERENCE RANGE NOT ESTABLISHED EGFR NON-AFR. AMER. >90 >89 ML/MIN/1 .73 M2 09/03/2018 9:58 AM [facility] EGFR AFR. AMER. >90 >89 ML/MIN/1 .73 M2 09/03/2018 9:58 AM [facility] GFR NOTES THE ESTIMATED GFR IS CALCULATED USING THE 2009 CKD-EPI EQUATION. THE FOLLOWING CATEGORIES FOR GRADING RENAL FUNCTION ARE RECOMMENDED BY THE INTERNATIONAL SOCIETY OF NEPHROLOGY (KDIGO 2012 CLINICAL PRACTICE GUIDELINE). 09/03/2018 9:58 AM [facility] Comment: G1,NORMAL OR HIGH: >89 ml/min/1.73 m2G2,MILDLY DECREASED: 60-89 ml/min/1.73 m2G3A,MILDLY TO MODERATELY DECREASED: 45-59 ml/min/1.73 m2G3B,MODERATELY TO SEVERELY DECREASED: 30-44 ml/min/1.73 m2G4,SEVERELY DECREASED: 15-29 ml/min/1.73 m2G5,KIDNEY FAILURE: <15 ml/min/1.73 m2 PLASMA SPECIMEN / Unknown 09/03/2018 8:25 AM HAND CANDLE MOLDER 09/03/2018 9:31 AM HAND CANDLE MOLDER us Generic Conversion Md MIR LABORATORY Final R esult [facility] [address] [place] [address], * (ABNORMAL) CBC W/DIFF AUTOMATED (09/03/2018 8:25 AM HAND CANDLE MOLDER) WBC 6.0 4.5 - 10.8 x10'3/uL 09/03/2018 9:34 AM [facility] RBC 4.09(L) 4.10 - 5.40 x10'6/uL 09/03/2018 9:34 AM [facility] HGB 12.7 12.0 - 16.0 G/DL 09/03/2018 9:34 AM [facility] HCT 37.7 36.0 - 47.0 % 09/03/2018 9:34 AM [facility] MCV 92.2 78.0 - 100.0 FL 09/03/2018 9:34 AM [facility] MCH 31.1(H) 27.0 - 31.0 PG 09/03/2018 9:34 AM [facility] MCHC 33.7 33.0 - 36.0 G/DL 09/03/2018 9:34 AM [facility] RDW 12.4 11.5 - 14.5 % 09/03/2018 9:34 AM [facility] PLT 244 150 - 350 x10'3/uL 09/03/2018 9:34 AM [facility] MPV 9.9 7.4 - 10.4 FL 09/03/2018 9:34 AM [facility] SEG NEUTROPHILS 64.2 % 9 9:34 AM [facility] LYMPHOCYTES 26.0 % 09/03/2018 9:34 AM [facility] MONOCYTES 7.5 % 09/03/2018 9:34 AM [facility] EOSINOPHILS 1.3 % 09/03/2018 9:34 AM [facility] BASOPHILS 0.7 % 09/03/2018 9:34 AM [facility] IMMATURE GRANS % 0.3 % 09/03/19 19 9:34 AM [facility] NRBC 0.0 % 09/03/2018 9:34 AM [facility] ABS. NEUTROPHILS 3.87 1.60 - 8.30 x10'3/uL 09/03/2018 9:34 AM [facility] ABS. LYMPHOCYTES 1.57 0.80 - 4.70 x10'3/uL 09/03/2018 9:34 AM [facility] ABS. MONOCYTES 0.45 0.00 - 1.50 x10'3/uL 09/03/2018 9:34 AM [facility] ABS. EOSINOPHILS 0.08 0.00 - 0.40 x10'3/uL 09/03/2018 9:34 AM [facility] ABS. BASOPHILS 0.04 0.00 - 0.20 x10'3/uL 09/03/2018 9:34 AM [facility] ABS. IMMATURE GRANULOCYTES 0.02 0.00 - 0.03 x10'3/uL 09/03/2018 9:34 AM HAND CANDLE MOLDER [facility] ABS. NUCLEATED RBC'S 0.00 0.00 x10'3/uL 09/03/2018 9:34 AM HAND CANDLE MOLDER [facility] OTHER (type in comments) 09/03/2018 8:25 AM HAND CANDLE MOLDER 09/03/2018 9:31 AM HAND CANDLE MOLDER Comment:WHOLE BLOOD SAMPLE us Generic Conversion Md MIR LABORATORY Final R esult [facility] [address] [place] [address], documented in this encounter Visit Diagnoses Diagnosis Vomiting Vomiting alone documented in this encounter
--- OUTSIDE RECORDS SUMMARY | 2024-08-03 02:11 | XMS_ITS | Encounter Summary ---
Author Organization [facility] Address [address] [facility] [place] [place] [address] [place] [address] Care Team Providers Care Rooming House Operator Name Role Phone Unavailable Primary Care Provider Unavailabl e Encounter Details Date Type Department Care Team (Late st Contact Info) Description 08/08/2017 Orders Only [facility] CONVERSION [address] [place] [address] , Generic Conversion, Social History [...] ALARCON DOCKED DEVICE Routine 08/09/2017 11:35 AM TELEMEDICINE PHYSICIAN VANCOMYCIN TROUGH TIMED 08/09/2017 6:3 6 AM TELEMEDICINE PHYSICIAN BASIC METABOLIC PANEL TIMED 08/09/2017 6:36 AM TELEMEDICINE PHYSICIAN CBC, AUTO, NO DIFF TIMED 08/09/2017 6: 36 AM TELEMEDICINE PHYSICIAN POCT GLUCOSE - ALARCON DOCKED DEVICE Routine 08/09/2017 6:23 AM TELEMEDICINE PHYSICIAN POCT GLUCOSE - ALARCON DOCKED DEVICE Routine 08/09/2017 3:58 AM TELEMEDICINE PHYSICIAN POCT GLUCOSE - ALARCON DOCKED DEVICE Routine 08/08/2017 8:22 PM TELEMEDICINE PHYSICIAN POCT GLUCOSE - ALARCON DOCKED DEVICE Routine 08/08/2017 7:42 PM TELEMEDICINE PHYSICIAN POCT GLUCOSE - ALARCON DOCKED DEVICE Routine 08/08/2017 4:58 PM TELEMEDICINE PHYSICIAN POCT GLUCOSE - ALARCON DOCKED DEVICE Routine 08/08/2017 12:52 PM TELEMEDICINE PHYSICIAN POCT GLUCOSE - ALARCON DOCKED DEVICE Routine 08/08/2017 12:12 PM TELEMEDICINE PHYSICIAN POCT GLUCOSE - ALARCON DOCKED DEVICE Routine 08/08/2017 10:23 AM TELEMEDICINE PHYSICIAN POCT GLUCOSE - ALARCON DOCKED DEVICE Routine 08/08/2017 10:03 AM TELEMEDICINE PHYSICIAN POCT GLUCOSE - ALARCON DOCKED DEVICE Routine 08/08/2017 7:42 AM TELEMEDICINE PHYSICIAN BASIC METABOLIC PANEL TIMED 08/08/2017 3:41 AM TELEMEDICINE PHYSICIAN CBC W/DIFF AUTOMATED TIMED 08/08/2017 3:40 AM TELEMEDICINE PHYSICIAN POCT GLUCOSE - ALARCON DOCKED DEVICE Routine 08/08/2017 1:11 AM TELEMEDICINE PHYSICIAN documented in this encounter Results * (ABNORMAL) POCT glucose (08/09/2017 11:35 AM TELEMEDICINE PHYSICIAN) Pathologist [facility] GLUCOSE POC 157(H) 70 - 109 08/09/2017 12:41 PM TELEMEDICINE PHYSICIAN [facility] ORDERS INTERFACE WHOLE BLOOD SPECIMEN / Unknown 08/09/2017 11:35 AM TELEMEDICINE PHYSICIAN 08/09/2017 12:41 PM TELEMEDICINE PHYSICIAN us Generic Conversion Md MIR POCT ORDERABLES - DEVIC E Final Result [facility] ORDERS INTERFACE US * (ABNORMAL) BASIC METABOLIC PANEL (08/09/2017 6:36 AM TELEMEDICINE PHYSICIAN) Pathologist [facility] SODIUM S/P/B 134(L) 135 - 147 MMOL/L 08/09/2017 8:10 AM [facility] POTASSIUM S/P/B 4.3 3.5 - 5.0 MMOL/L 08/09/2017 8:10 AM [facility] CHLORIDE S/P/B 105 98 - 107 MMOL/L 08/09/2017 8:10 AM [facility] CO2 22.6 22 - 29 MMOL/L 08/09/2017 8:10 AM [facility] GLUCOSE 403(H) 70 - 109 MG/DL 08/09/2017 8:10 AM [facility] BUN 16 7 - 19 MG/DL 08/09/2017 8:10 AM [facility] CREATININE S/P/B 0.86 0.60 - 1.10 MG/DL 08/09/2017 8:10 AM [facility] CALCIUM S/P/B 8.9 8.4 - 10.2 MG/DL 08/09/2017 8:10 AM [facility] EGFR NON-AFR. AMER. 79 >60 ML/MIN/1.7 3 M2 08/09/2017 8:10 AM [facility] EGFR AFR. AMER. 95 >60 ML/MIN/1.7 3 M2 08/09/2017 8:10 AM [facility] ANION GAP 6.4 MMOL/L 08/09/2017 8:10 AM [facility] OSMOLALITY (CALC) 286 MOSM/KG 08/09/2017 8:10 AM [facility] PLASMA SPECIMEN / Unknown 08/09/2017 6:36 AM TELEMEDICINE PHYSICIAN 08/09/2017 7:39 AM [facility] us Generic Conversion Md MIR LABORATORY Final R esult [facility] [address] [place] [address], [id number] * (ABNORMAL) CBC, AUTO, NO DIFF (08/09/2017 6:36 AM TELEMEDICINE PHYSICIAN) WBC 6.9 4.0 - 10.8 x10'3/uL 08/09/2017 7:53 AM [facility] RBC 3.91(L) 4.10 - 5.40 x10'6/uL 08/09/2017 7:53 AM [facility] HGB 12.0 12.0 - 16.0 G/DL 08/09/2017 7:53 AM [facility] HCT 34.4(L) 36.0 - 47.0 % 08/09/2017 7:53 AM [facility] MCV 88.0 78.0 - 100.0 FL 08/09/2017 7:53 AM [facility] MCH 30.7 27.0 - 31.0 PG 08/09/2017 7:53 AM [facility] MCHC 34.9 33.0 - 36.0 G/DL 08/09/2017 7:53 AM [facility] RDW 12.1 11.5 - 14.5 % 08/09/2017 7:53 AM [facility] PLT 265 150 - 350 x10'3/uL 08/09/2017 7:53 AM [facility] MPV 10.1 7.4 - 10.4 FL 08/09/2017 7:53 AM [facility] PLASMA SPECIMEN / Unknown 08/09/2017 6:36 AM TELEMEDICINE PHYSICIAN 08/09/2017 7:39 AM [facility] us Generic Conversion Md MIR LABORATORY Final R esult [facility] [address] [place] [address], [id number] * VANCOMYCIN TROUGH (08/09/2017 6:36 AM TELEMEDICINE PHYSICIAN) VANCOMYCIN TROUGH 15.3 10 - 20 MCG/ML 08/09/2017 10:02 AM [facility] SERUM OR PLASMA SPECIMEN / Unknown 08/09/2017 6:36 AM TELEMEDICINE PHYSICIAN 08/09/2017 7:39 AM TELEMEDICINE PHYSICIAN us Generic Conversion Md MIR LABORATORY Final R esult Performing Organization Address [facility]/ZIP Co de Phone Number [facility] [address] [place] [address], [id number] * (ABNORMAL) POCT glucose (08/09/2017 6:23 AM TELEMEDICINE PHYSICIAN) GLUCOSE POC 382(H) 70 - 109 08/09/2017 7:26 AM TELEMEDICINE PHYSICIAN [facility] ORDERS INTERFACE WHOLE BLOOD SPECIMEN / Unknown 08/09/2017 6:23 AM TELEMEDICINE PHYSICIAN 08/09/2017 7:26 AM TELEMEDICINE PHYSICIAN us Generic Conversion Md MIR POCT ORDERABLES - DEVIC E Final Result Performing Organization Address [facility] Co de Phone Number [facility] ORDERS INTERFACE US * (ABNORMAL) POCT glucose (08/09/2017 3:58 AM TELEMEDICINE PHYSICIAN) GLUCOSE POC 324(H) 70 - 109 08/09/2017 5:00 AM TELEMEDICINE PHYSICIAN [facility] ORDERS INTERFACE WHOLE BLOOD SPECIMEN / Unknown 08/09/2017 3:58 AM TELEMEDICINE PHYSICIAN 08/09/2017 5:00 AM TELEMEDICINE PHYSICIAN us Generic Conversion Md MIR POCT ORDERABLES - DEVIC E Final Result Performing Organization Address City/[facility]/ZIP Co de Phone Number [facility] ORDERS INTERFACE US * (ABNORMAL) POCT glucose (08/08/2017 8:22 PM TELEMEDICINE PHYSICIAN) GLUCOSE POC 111(H) 70 - 109 08/09/2017 6:05 AM TELEMEDICINE PHYSICIAN [facility] ORDERS INTERFACE WHOLE BLOOD SPECIMEN / Unknown 08/08/2017 8:22 PM TELEMEDICINE PHYSICIAN 08/09/2017 6:04 AM TELEMEDICINE PHYSICIAN us Generic Conversion Md MIR POCT ORDERABLES - DEVIC E Final Result Performing Organization Address City/[facility]/ZIP Co de Phone Number [facility] ORDERS INTERFACE US * (ABNORMAL) POCT glucose (08/08/2017 7:42 PM TELEMEDICINE PHYSICIAN) GLUCOSE POC 42(L) 70 - 109 08/08/2017 8:45 PM TELEMEDICINE PHYSICIAN [facility] ORDERS INTERFACE WHOLE BLOOD SPECIMEN / Unknown 08/08/2017 7:42 PM TELEMEDICINE PHYSICIAN 08/08/2017 8:45 PM TELEMEDICINE PHYSICIAN us Generic Conversion Md MIR POCT ORDERABLES - DEVIC E Final Result Performing Organization Address [facility]/ZIP Co de Phone Number [facility] ORDERS INTERFACE US * (ABNORMAL) POCT glucose (08/08/2017 4:58 PM TELEMEDICINE PHYSICIAN) GLUCOSE POC 112(H) 70 - 109 08/08/2017 6:07 PM TELEMEDICINE PHYSICIAN [facility] ORDERS INTERFACE WHOLE BLOOD SPECIMEN / Unknown 08/08/2017 4:58 PM TELEMEDICINE PHYSICIAN 08/08/2017 6:07 PM TELEMEDICINE PHYSICIAN us Generic Conversion Md MIR POCT ORDERABLES - DEVIC E Final Result Performing Organization Address [facility] Co de Phone Number [facility] ORDERS INTERFACE US * (ABNORMAL) POCT glucose (08/08/2017 12:52 PM TELEMEDICINE PHYSICIAN) GLUCOSE POC 223(H) 70 - 109 08/08/2017 1:54 PM TELEMEDICINE PHYSICIAN [facility] ORDERS INTERFACE WHOLE BLOOD SPECIMEN / Unknown 08/08/2017 12:52 PM TELEMEDICINE PHYSICIAN 08/08/2017 1:54 PM TELEMEDICINE PHYSICIAN us Generic Conversion Md MIR POCT ORDERABLES - DEVIC E Final Result [facility] ORDERS INTERFACE US * (ABNORMAL) POCT glucose (08/08/2017 12:12 PM TELEMEDICINE PHYSICIAN) GLUCOSE POC 32(L) 70 - 109 08/08/2017 1:14 PM TELEMEDICINE PHYSICIAN [facility] ORDERS INTERFACE WHOLE BLOOD SPECIMEN / Unknown 08/08/2017 12:12 PM TELEMEDICINE PHYSICIAN 08/08/2017 1:14 PM TELEMEDICINE PHYSICIAN us Generic Conversion Md MIR POCT ORDERABLES - DEVIC E Final Result [facility] ORDERS INTERFACE US * (ABNORMAL) POCT glucose (08/08/2017 10:23 AM TELEMEDICINE PHYSICIAN) GLUCOSE POC 159(H) 70 - 109 08/08/2017 11:26 AM TELEMEDICINE PHYSICIAN [facility] ORDERS INTERFACE WHOLE BLOOD SPECIMEN / Unknown 08/08/2017 10:23 AM TELEMEDICINE PHYSICIAN 08/08/2017 11:26 AM TELEMEDICINE PHYSICIAN us Generic Conversion Md MIR POCT ORDERABLES - DEVIC E Final Result Performing Organization Address [facility] Co de Phone Number [facility] ORDERS INTERFACE US * (ABNORMAL) POCT glucose (08/08/2017 10:03 AM TELEMEDICINE PHYSICIAN) GLUCOSE POC 22(L) 70 - 109 08/08/2017 5:42 PM TELEMEDICINE PHYSICIAN [facility] ORDERS INTERFACE WHOLE BLOOD SPECIMEN / Unknown 08/08/2017 10:03 AM TELEMEDICINE PHYSICIAN 08/08/2017 5:42 PM TELEMEDICINE PHYSICIAN us Generic Conversion Md MIR POCT ORDERABLES - DEVIC E Final Result Performing Organization Address [facility]/ZIP Co de Phone Number [facility] ORDERS INTERFACE US * POCT glucose (08/08/2017 7:42 AM TELEMEDICINE PHYSICIAN) GLUCOSE POC 84 70 - 109 08/08/2017 8:52 AM TELEMEDICINE PHYSICIAN [facility] ORDERS INTERFACE WHOLE BLOOD SPECIMEN / Unknown 08/08/2017 7:42 AM TELEMEDICINE PHYSICIAN 08/08/2017 8:52 AM TELEMEDICINE PHYSICIAN us Generic Conversion Md MIR POCT ORDERABLES - DEVIC E Final Result [facility] ORDERS INTERFACE US * (ABNORMAL) BASIC METABOLIC PANEL (08/08/2017 3:41 AM TELEMEDICINE PHYSICIAN) SODIUM S/P/B 138 135 - 147 MMOL/L 08/08/2017 5:53 AM [facility] POTASSIUM S/P/B 3.6 3.5 - 5.0 MMOL/L 08/08/2017 5:53 AM [facility] CHLORIDE S/P/B 104 98 - 107 MMOL/L 08/08/2017 5:53 AM [facility] CO2 25.5 22 - 29 MMOL/L 08/08/2017 5:53 AM [facility] GLUCOSE 128(H) 70 - 109 MG/DL 08/08/2017 5:53 AM [facility] BUN 10 7 - 19 MG/DL 08/08/2017 5:53 AM [facility] CREATININE S/P/B 0.72 0.60 - 1.10 MG/DL 08/08/2017 5:53 AM [facility] CALCIUM S/P/B 8.9 8.4 - 10.2 MG/DL 08/08/2017 5:53 AM [facility] EGFR NON-AFR. AMER. 96 >60 ML/MIN/1.7 3 M2 08/08/2017 5:53 AM [facility] EGFR AFR. AMER. 117 >60 ML/MIN/1.7 3 M2 08/08/2017 5:53 AM [facility] ANION GAP 8.5 MMOL/L 08/08/2017 5:53 AM [facility] OSMOLALITY (CALC) 276 MOSM/KG 08/08/2017 5:53 AM [facility] PLASMA SPECIMEN / Unknown 08/08/2017 3:41 AM TELEMEDICINE PHYSICIAN 08/08/2017 5:20 AM TELEMEDICINE PHYSICIAN us Generic Conversion Md MIR LABORATORY Final R esult [facility] [address] [place] [address], [id number] * (ABNORMAL) CBC W/DIFF AUTOMATED (08/08/2017 3:40 AM TELEMEDICINE PHYSICIAN) [facility] WBC 6.9 4.0 - 10.8 x10'3/uL 08/08/2017 5:31 AM [facility] RBC 3.87(L) 4.10 - 5.40 x10'6/uL 08/08/2017 5:31 AM [facility] HGB 11.7(L) 12.0 - 16.0 G/DL 08/08/2017 5:31 AM [facility] HCT 34.3(L) 36.0 - 47.0 % 08/08/2017 5:31 AM [facility] MCV 88.6 78.0 - 100.0 FL 08/08/2017 5:31 AM [facility] MCH 30.2 27.0 - 31.0 PG 08/08/2017 5:31 AM [facility] MCHC 34.1 33.0 - 36.0 G/DL 08/08/2017 5:31 AM [facility] RDW 12.0 11.5 - 14.5 % 08/08/2017 5:31 AM [facility] PLT 292 150 - 350 x10'3/uL 08/08/2017 5:31 AM [facility] MPV 9.8 7.4 - 10.4 FL 08/08/2017 5:31 AM [facility] ABS. NEUTROPHILS TOTAL 3.85 1.60 - 8.30 x10'3/uL 08/08/2017 5:31 AM [facility] ABS. LYMPHOCYTES 2.46 0.80 - 4.70 x10'3/uL 08/08/2017 5:31 AM [facility] ABS. MONOCYTES 0.39 0.00 - 1.50 x10'3/uL 08/08/2017 5:31 AM [facility] ABS. EOSINOPHILS 0.13 0.00 - 0.40 x10'3/uL 08/08/2017 5:31 AM TELEMEDICINE PHYSICIAN [facility] ABS. BASOPHILS 0.04 0.00 - 0.20 x10'3/uL 08/08/2017 5:31 AM TELEMEDICINE PHYSICIAN [facility] ABS. IMMATURE GRANULOCYTES 0.04(H) 0.00 - 0.03 x10'3/uL 08/08/2017 5:31 AM TELEMEDICINE PHYSICIAN [facility] ABS. NUCLEATED RBC'S 0.04(H) 0.0 x10'3/uL 08/08/2017 5:31 AM TELEMEDICINE PHYSICIAN [facility] PLASMA SPECIMEN / Unknown 08/08/2017 3:40 AM TELEMEDICINE PHYSICIAN 08/08/2017 5:20 AM TELEMEDICINE PHYSICIAN us Generic Conversion Md MIR LABORATORY Final R esult Performing Organization Address City/[facility]/ZIP Co de Phone Number [facility] [address] [place] [address], [id number] * (ABNORMAL) POCT glucose (08/08/2017 1:11 AM TELEMEDICINE PHYSICIAN) [facility] GLUCOSE POC 128(H) 70 - 109 08/08/2017 11:26 AM TELEMEDICINE PHYSICIAN [facility] ORDERS INTERFACE WHOLE BLOOD SPECIMEN / Unknown 08/08/2017 1:11 AM TELEMEDICINE PHYSICIAN 08/08/2017 11:26 AM TELEMEDICINE PHYSICIAN us Generic Conversion Md MIR POCT ORDERABLES - DEVIC E Final Result [facility] ORDERS INTERFACE US documented in this encounter Visit Diagnoses Not on filedocumented in this encounter
--- OUTSIDE RECORDS SUMMARY | 2024-08-03 02:11 | XMS_ITS | Encounter Summary ---
Author Organization [facility] Address [facility] [facility] [place] [address] [place] [address] Care Team Providers Care Inspector Missile Name Role Phone Unavailable Primary Care Provider Unavailabl e Encounter Details Date Type Department Care Team (Late st Contact Info) Description 10/31/2016 Abstract [facility] [address] [place] [address] Sami Aguilera MD [address] [place] [id number] Social History Tobacco Use Types Packs/Day [...]
--- OUTSIDE RECORDS SUMMARY | 2024-08-03 02:11 | XMS_ITS | Encounter Summary ---
Author Organization [facility] Address [facility] [place] [address] [place] [address] Care Team Providers Care Collar Baster Jumpbasting Name Role Phone Unavailable Primary Care Provider Unavailabl e Encounter Details Date Type Department Care Team (Latest Contact Info) Description 04/08/2018 Abstract [facility] , Carolee Duenas MD Social [...] Layer (04/08/2018 6:52 AM CDT) [facility]AP [facility]ME[facility] ?[address] ?[place] [address] ? Department of Pathology ? Pathology Report ? CERVICAL/VAGINAL PAP SMEAR REPORT Name: STEPH ROBERTO ? Age: 5 1990 (Age: 27) ? Location: [id number] Sex: F ?Collected Date: 04/08/2018 Hospital #: [id number] ?Date Received: 04/11/2018 Date Reported: 04/12/2018 Provider: SABA JUDGE ?[facility] INTERPRETATION CERVICAL/ENDOCERVIC AL, PAP TEST: ? SATISFACTORY FOR EVALUATION. ENDOCERVICAL/TRANSF ORMATION ZONE COMPONENT PRESENT. ? NEGATIVE FOR INTRAEPITHELIAL LESION OR MALIGNANCY. SHIFT IN BACTERIAL DENNIS SUGGESTIVE OF BACTERIAL VAGINOSIS. Electronically Signed Out Chet Durant M.D. Brooke Stoll, [facility] CLINICAL HISTORY HEALTH MAINTENANCE ThinPrep Pap Test [...]
--- OUTSIDE RECORDS SUMMARY | 2024-08-03 02:11 | XMS_ITS | Encounter Summary ---
Author Organization [facility] Address [address] [facility] [place] [address] [place] [address] Care Team Providers Care Management And Budget Analyst Name Role Phone Unavailable Primary Care Provider Unavailabl e Encounter Details Date Type Department Care Team (Late st Contact Info) Description 04/08/2018 Abstract [facility] [address] [place] [address] Sami Aguilera MD [address] [place] [id number] Social History Tobacco Use Types Packs/Day [...] GLUCOSE BLOOD, QNT (04/08/2018 10:56 AM CDT) [facility] GLUCOSE POC 224(H) 70 - 140 MG/DL 04/08/2018 10:57 AM CDT [facility] ORDERS INTERFACE 04/08/2018 10:5 6 AM CDT 04/08/2018 10:57 AM CDT us Generic Conversion Md MIR LABORATORY Final R esult [facility] ORDERS INTERFACE US * (ABNORMAL) BETA-HYDROXYBUTYRATE (04/08/2018 10:04 AM CDT) [facility] BETA-HYDROXYBU TYRATE 6.5(H) 0.0 - 0.3 MMOL/L 04/08/2018 10:10 AM CDT [facility] SERUM OR PLASMA SPECIMEN / Unknown 04/08/2018 10:04 AM CDT 04/08/2018 10:06 AM CDT us Generic Conversion Md MIR LABORATORY Final R esult [facility] [place] [address], * (ABNORMAL) Blood gas, venous (04/08/2018 10:04 AM CDT) [facility] O2 SAT VENOUS 39(L) 40 - 70 % 04/08/2018 10:10 AM CDT [facility] PH VENOUS 7.23(L) 7.35 - 7.45 04/08/2018 10:10 AM CDT [facility] PCO2 32.9(L) 41.0 - 51.0 MMHG 04/08/2018 10:10 AM CDT [facility] PO2 VENOUS 33.0 20.0 - 40.0 MM HG 04/08/2018 10:10 AM CDT [facility] BASE DEFICIT VENOUS 13.0 MMOL/L 04/08/2018 10:10 AM CDT [facility] BICARB VENOUS 13.3(L) 22.0 - 29.0 MMOL/L 04/08/2018 10:10 AM CDT [facility] TCO2 14.3(L) 25.0 - 29.0 MMOL/L 04/08/2018 10:10 AM CDT [facility] LITER FLOW ROOM AIR 04/08/2018 10:06 AM CDT [facility] 04/08/2018 10:0 4 AM CDT 04/08/2018 10:06 AM CDT us Generic Conversion Md MIR LABORATORY Final R esult [facility] [address] [place] [address], * (ABNORMAL) COMPREHENSIVE METABOLIC PANEL (04/08/2018 8:48 AM CDT) SODIUM S/P/B 129(L) 136 - 145 MMOL/L 04/08/2018 9:10 AM CDT [facility] POTASSIUM S/P/B 4.4 3.5 - 5.1 MMOL/L 04/08/2018 9:10 AM CDT [facility] CHLORIDE S/P/B 93(L) 98 - 107 MMOL/L 04/08/2018 9:10 AM CDT [facility] CO2 15.2(L) 21.0 - 32.0 MMOL/L 04/08/2018 9:10 AM CDT [facility] GLUCOSE 387(H) 70 - 140 MG/DL 04/08/2018 9:10 AM CDT [facility] BUN 21 6 - 24 MG/DL 04/08/2018 9:10 AM CDT [facility] CREATININE S/P/B 1.13(H) 0.55 - 1.02 MG/DL 04/08/2018 9:10 AM CDT [facility] CALCIUM S/P/B 9.0 8.4 - 10.5 MG/DL 04/08/2018 9:10 AM [facility] BILIRUBIN TOTAL S/P/B 0.8 0.2 - 1.0 MG/DL 04/08/2018 9:10 AM [facility] ALKALINE PHOSPHATASE S/P/B 94 37 - 98 U/L 04/08/2018 9:10 AM [facility] AST 19 15 - 37 U/L 04/08/2018 9:10 AM [facility] ALT 30 14 - 59 U/L 04/08/2018 9:10 AM [facility] TOTAL PROTEIN S/P/B 8.2 6.4 - 8.2 G/DL 04/08/2018 9:10 AM [facility] ALBUMIN S/P/B 3.8 3.4 - 5.0 G/DL 04/08/2018 9:10 AM [facility] ANION GAP 20.8 MMOL/L 04/08/2018 9:10 AM [facility] Comment:REFERENCE RANGE NOT ESTABLISHED OSMOLALITY (CALC) 287 MOSM/KG 018 9:10 AM [facility] Comment:REFERENCE RANGE NOT ESTABLISHED EGFR NON-AFR. AMER. 66(L) >89 ML/MIN/1. 73 M2 04/08/2018 9:10 AM [facility] Comment: THE ESTIMATED GFR IS CALCULATED [...] ML/MIN/1. 73 M2 04/08/2018 9:10 AM CDT [facility] Comment: THE ESTIMATED GFR IS [...] MIR LABORATORY Final R esult [facility] [address] [place] [address], * (ABNORMAL) CBC W/DIFF AUTOMATED (04/08/2018 8:48 AM CDT) WBC 7.4 4.5 - 10.8 x10'3/uL 04/08/2018 8:53 AM CDT [facility] RBC 4.39 4.10 - 5.40 x10'6/uL 04/08/2018 8:53 AM CDT [facility] HGB 13.7 12.0 - 16.0 G/DL 04/08/2018 8:53 AM CDT [facility] HCT 39.7 36.0 - 47.0 % 04/08/2018 8:53 AM CDT [facility] MCV 90.4 78.0 - 100.0 FL 04/08/2018 8:53 AM CDT [facility] MCH 31.2(H) 27.0 - 31.0 PG 04/08/2018 8:53 AM CDT [facility] MCHC 34.5 33.0 - 36.0 G/DL 04/08/2018 8:53 AM CDT [facility] RDW 11.6 11.5 - 14.5 % 04/08/2018 8:53 AM CDT [facility] PLT 252 150 - 350 x10'3/uL 04/08/2018 8:53 AM CDT [facility] MPV 9.8 7.4 - 10.4 FL 04/08/2018 8:53 AM CDT [facility] SEG NEUTROPHILS 70.1 % 8 8:53 AM CDT [facility] LYMPHOCYTES 21.1 % 04/08/2018 8:53 AM CDT [facility] MONOCYTES 7.3 % 04/08/2018 8:53 AM CDT [facility] EOSINOPHILS 0.5 % 04/08/2018 8:53 AM CDT [facility] BASOPHILS 0.7 % 04/08/2018 8:53 AM CDT [facility] IMMATURE GRANS % 0.3 % 04/08/20 18 8:53 AM CDT [facility] NRBC 0.0 % 04/08/2018 8:53 AM CDT [facility] ABS. NEUTROPHILS 5.20 1.60 - 8.30 x10'3/uL 04/08/2018 8:53 AM CDT [facility] ABS. LYMPHOCYTES 1.56 0.80 - 4.70 x10'3/uL 04/08/2018 8:53 AM CDT [facility] ABS. MONOCYTES 0.54 0.00 - 1.50 x10'3/uL 04/08/2018 8:53 AM CDT [facility] ABS. EOSINOPHILS 0.04 0.00 - 0.40 x10'3/uL 04/08/2018 8:53 AM CDT [facility] ABS. BASOPHILS 0.05 0.00 - 0.20 x10'3/uL 04/08/2018 8:53 AM CDT [facility] ABS. IMMATURE GRANULOCYTES 0.02 0.00 - 0.03 x10'3/uL 04/08/2018 8:53 AM CDT [facility] ABS. NUCLEATED RBC'S 0.00 0.00 x10'3/uL 04/08/2018 8:53 AM CDT [facility] OTHER (type in comments) 04/08/2018 8:48 AM CDT 04/08/2018 8:51 AM CDT Comment:WHOLE BLOOD SAMPLE us Generic Conversion Md [facility] Final R esult [facility] [address] [place] [address], documented in this encounter Visit Diagnoses Diagnosis Type 1 diabetes mellitus with ketoacidosis and without coma (CMS/HCC HHS/HCC) Type I (juvenile type) diabetes mellitus with ketoacidosis, not stated as uncontrolled documented in this encounter
--- OUTSIDE RECORDS SUMMARY | 2024-08-03 02:11 | XMS_ITS | Encounter Summary ---
Author Organization [facility] Address [address] [place] [address] [place] [address] Care Team Providers Care Recruiter Manager Name Role Phone Unavailable Primary Care Provider Unavailabl e Encounter Details Date Type Department Care Team (Late st Contact Info) Description 01/26/2018 Abstract [facility] [address] [place] [address] Nahum Bang MD [address] [address] Social History Tobacco Use Types [...] COLOR (U) YELLOW 01/26/2018 5:05 PM CDT [facility] TRANSPARENCY CLEAR 01/26/2018 5:05 PM CDT [facility] SPECIFIC GRAVITY (U) 1.015 1.000 - 1.025 01/26/2018 5:05 PM CDT [facility] U PH 6.0 5.0 - 8.0 01/26/2018 5:05 PM CDT [facility] LEUKOCYTES (U) NEGATIVE NEGATIVE 01/26/2018 5:05 PM CDT [facility] NITRITES NEGATIVE NEGATIVE 01/26/2018 5:05 PM CDT [facility] PROTEIN (U) NEGATIVE NEGATIVE 01/26/2018 5:05 PM CDT [facility] URINE GLUCOSE NEGATIVE NEGATIVE 01/26/2018 5:05 PM CDT [facility] KETONES MG/DL (U) NEGATIVE NEGATIVE 01/26/2018 5:05 PM CDT [facility] UROBILINOGEN 0.2 <1.0 EU/DL 01/26/2018 5:05 PM CDT [facility] BILIRUBIN (U) NEGATIVE NEGATIVE 01/26/2018 5:05 PM CDT [facility] BLOOD (U) TRACE(A) NEGATIVE 01/26/2018 5:05 PM CDT [facility] WBC/HPF 0-5 0 - 5 /HPF 01/26/2018 5:05 PM CDT [facility] RBC/HPF 0-5 0 - 5 /HPF 01/26/2018 5:05 PM CDT [facility] EPI/HPF MANY /LPF 01/26/2018 5:05 PM CDT [facility] BACTERIA (U) 1+ /HPF 01/26/2018 5:05 PM CDT [facility] MUCUS PRESENT 01/26/2018 5:05 PM CDT [facility] CULTURE & SENSITIVITY INDICATED? NOT INDICATED 01/26/2018 5:05 PM CDT [facility] OTHER (type in comments) 01/26/2018 4:42 PM CDT 01/26/2018 4:54 PM CDT Comment:URINE SPECIMEN~URINE SPECIMEN us Generic Conversion Md [facility] URINE ORDERABLES Final Result Performing Organization Address City/[facility]/ZIP Co de Phone Number [facility] [address] [place] [address], [place] [phone] * TEST URINE (01/26/2018 4:42 PM CDT) PREG TEST NEGATIVE 01/26/2018 4:59 PM CDT [facility] SPECIFIC GRAVITY (U) 1.015 01/26/2018 4:59 PM CDT [facility] URINE SPECIMEN / Unknown 01/26/2018 4:42 PM CDT 01/26/2018 4:54 PM CDT us Generic Conversion Md [facility] URINE ORDERABLES Final Result Performing Organization Address [facility] Co de Phone Number [facility] [address] [place] [address], [place] [phone] * (ABNORMAL) COMPREHENSIVE METABOLIC PANEL (01/26/2018 4:34 PM CDT) GLUCOSE 161(H) 70 - 99 MG/DL 01/26/2018 4:56 PM CDT [facility] BUN 9 7 - 19 MG/DL 01/26/2018 4:56 PM CDT [facility] CREATININE S/P/B 0.77 0.57 - 1.11 MG/DL 01/26/2018 4:56 PM CDT [facility] SODIUM S/P/B 138 136 - 145 MMOL/L 01/26/2018 4:56 PM CDT [facility] POTASSIUM S/P/B 3.6 3.5 - 5.1 MMOL/L 01/26/2018 4:56 PM CDT [facility] CHLORIDE S/P/B 103 98 - 107 MMOL/L 01/26/2018 4:56 PM CDT [facility] CO2 25.0 22.0 - 29.0 MMOL/L 01/26/2018 4:56 PM CDT [facility] CALCIUM S/P/B 9.4 8.4 - 10.2 MG/DL 01/26/2018 4:56 PM CDT [facility] BILIRUBIN TOTAL S/P/B 0.5 0.2 - 1.2 MG/DL 01/26/2018 4:56 PM CDT [facility] TOTAL PROTEIN S/P/B 7.3 6.0 - 8.3 G/DL 01/26/2018 4:56 PM CDT [facility] ALBUMIN S/P/B 4.2 3.5 - 5.2 G/DL 01/26/2018 4:56 PM T [facility] AST 19 5 - 34 U/L 01/26/2018 4:56 PM T [facility] ALT 32 0 - 55 U/L 01/26/2018 4:56 PM T [facility] ALKALINE PHOSPHATASE S/P/B 97 50 - 136 U/L 01/26/2018 4:56 PM T [facility] OSMOLALITY (CALC) 278 275 - 300 MOSM/KG 01/26/2018 4:56 PM T [facility] A/G RATIO 1.4 1.0 - 1.6 RATIO 01/26/2018 4:56 PM T [facility] BUN CREATININE RATIO 11.7(L) 12 - 20 01/26/2018 4:56 PM T [facility] ANION GAP 10.0 7 - 16 MMOL/L 01/26/2018 4:56 PM T [facility] EGFR NON-AFR. AMER. >60 >60 ML/MIN/1.7 3 M2 01/26/2018 4:56 PM T [facility] EGFR AFR. AMER. >60 >60 ML/MIN/1.7 3 M2 01/26/2018 4:56 PM CDT [facility] 01/26/2018 4:34 PM CDT 01/26/2018 4:36 PM CDT us Generic Conversion Md [facility] LABORATORY Final R esult [facility] [address] [place] [address], * CBC W/DIFF AUTOMATED (01/26/2018 4:34 PM CDT) WBC 5.2 4.5 - 10.8 x10'3/uL 01/26/2018 4:46 PM CDT [facility] RBC 4.23 4.10 - 5.40 x10'6/uL 01/26/2018 4:46 PM CDT [facility] HGB 12.8 12.0 - 16.0 G/DL 01/26/2018 4:46 PM CDT [facility] HCT 37.7 36.0 - 47.0 % 01/26/2018 4:46 PM CDT [facility] MCV 89.1 78.0 - 100.0 FL 01/26/2018 4:46 PM CDT [facility] MCH 30.3 27.0 - 31.0 PG 01/26/2018 4:46 PM CDT [facility] MCHC 34.0 33.0 - 36.0 G/DL 01/26/2018 4:46 PM CDT [facility] RDW 12.1 11.5 - 14.5 % 01/26/2018 4:46 PM CDT [facility] PLT 288 150 - 350 x10'3/uL 01/26/2018 4:46 PM CDT [facility] MPV 9.5 7.4 - 10.4 FL 01/26/2018 4:46 PM CDT [facility] SEG NEUTROPHILS 50 % 8 5:03 PM CDT [facility] LYMPHOCYTES 45 % 01/26/2018 5:03 PM CDT [facility] MONOCYTES 3 % 01/26/2018 5:03 PM CDT [facility] EOSINOPHILS 2 % 01/26/2018 5:03 PM CDT [facility] ABS. NEUTROPHILS CALCULATED 2.60 1.60 - 8.30 x10'3/uL 01/26/2018 5:03 PM CDT [facility] ABS. LYMPHOCYTES 2.34 0.80 - 4.70 x10'3/uL 01/26/2018 5:03 PM CDT [facility] ABS. MONOCYTES 0.16 0.10 - 1.50 x10'3/uL 01/26/2018 5:03 PM CDT [facility] ABS. EOSINOPHILS 0.10 0.00 - 0.40 x10'3/uL 01/26/2018 5:03 PM CDT [facility] PLT MORPH. NORMAL 01/26/2018 5:03 PM CDT [facility] RBC MORPHOLOGY NORMAL 01/26/2018 5:03 PM CDT [facility] WBC MORPHOLOGY ATYPICAL LYMPHS 01/26/2018 5:03 PM CDT [facility] OTHER (type in comments) 01/26/2018 4:34 PM CDT 01/26/2018 4:36 PM CDT Comment:WHOLE BLOOD SAMPLE us Generic Conversion Md [facility] LABORATORY Final R esult [facility] [phone] * (ABNORMAL) GLUCOSE BLOOD, QNT (01/26/2018 3:50 PM CDT) GLUCOSE POC 157(H) 70 - 99 MG/DL 01/26/2018 3:53 PM CDT [facility] ORDERS INTERFACE 01/26/2018 3:50 PM CDT 01/26/2018 3:53 PM CDT us Generic Conversion Md [facility] LABORATORY Final R esult [facility] ORDERS INTERFACE US documented in this encounter Visit Diagnoses Diagnosis Nausea with vomiting documented in this encounter
--- OUTSIDE RECORDS SUMMARY | 2024-08-03 02:11 | XMS_ITS | Encounter Summary ---
Author Organization [facility] Address [facility] [facility] [place] [address] [place] [address] Care Team Providers Care Candy Bar Attendant Name Role Phone Unavailable Primary Care Provider Unavailabl e Encounter Details Date Type Department Care Team (Late st Contact Info) Description 09/02/[address] [facility] [address] [place] [address] Alli Villegas MD [address], [place] [id number] Social History Tobacco Use Types Packs/Day Years [...]
--- OUTSIDE RECORDS SUMMARY | 2024-08-03 02:11 | XMS_ITS | Encounter Summary ---
Author Organization [facility] Address On license of [facility] [facility] [place] [address] [place] [address] Care Team Providers Care Neuropsychology Director Name Role Phone Unavailable Primary Care Provider Unavailabl e Encounter Details Date Type Department Care Team (Late st Contact Info) Description 08/04/[address] [facility] [address] [place] [address] Timothy Graham MD [address] [place] [address] Social History Tobacco Use Types [...]
--- OUTSIDE RECORDS SUMMARY | 2024-08-03 02:11 | XMS_ITS | Encounter Summary ---
Author Organization [facility] Address [facility] [facility] [place] [address] [place] [address] Care Team Providers Care Licensed Life And Health Agent Name Role Phone Unavailable Primary Care Provider Unavailabl e Encounter Details Date Type Department Care Team (Late st Contact Info) Description 12/22/2014 Abstract [facility] [address] [place] [address] Sami Aguilera MD [address] [place] [address] Social History Tobacco Use Types Packs/Day [...]
--- OUTSIDE RECORDS SUMMARY | 2024-08-03 02:11 | XMS_ITS | Encounter Summary ---
Author Organization [facility] Address [facility] [place] [address] [place] [address] Care Team Providers Care Guard Dance Hall Name Role Phone Unavailable Primary Care Provider Unavailabl e Encounter Details Date Type Department Care Team (Late st Contact Info) Description 09/02/2014 Abstract [facility] [address] [facility] [place] [address] [place] [id number] [place] [address] [place] [address] Social History Tobacco Use Types Packs/Day [...]
--- OUTSIDE RECORDS SUMMARY | 2024-08-03 02:11 | XMS_ITS | Encounter Summary ---
Author Organization [facility] Address [facility] [place] [address] [place] [address] Care Team Providers Care Animal Therapist Name Role Phone Unavailable Primary Care Provider Unavailabl e Encounter Details Date Type Department Care Team (Late st Contact Info) Description 06/02/2014 Abstract [facility] [address] [facility] [address] [address] [address] [place] [address] Sami Aguilera MD [address] [place] [address] Social History Tobacco Use Types Packs/Day [...]
--- OUTSIDE RECORDS SUMMARY | 2024-08-03 02:11 | XMS_ITS | Encounter Summary ---
Author Organization [facility] Address [facility] [place] [address] [place] [address] Care Team Providers Care Channel Program Manager Name Role Phone Unavailable Primary Care Provider Unavailabl e Reason for Referral * Imaging (Urgent) - Closed Specialty Diagnoses / Procedures Referred By Alexis t Referred To Contact Procedures CT ABD+PEL W CON Aissatou Hughes MD Phone: tel: fax: Referral ID Status Reason Start Date Expiration Date Visits Re quested Visits Authorized [id number] Closed 04/10/2018 05/10/2019 1 1 * Imaging (Urgent) - Closed Specialty Diagnoses / Procedures Referred By Alexis t Referred To Contact Procedures US RETROPERITONEAL COMP US RENAL Anson Dominique DO Referral ID Status Reason Start Date Expiration Date Visits Re quested Visits Authorized [id number] Closed 04/08/2018 05/08/2019 1 1 * Imaging (Routine) - Closed Specialty Diagnoses / Procedures Referred By Alexis t Referred To Contact Procedures USE ECHOCARDIOGRAM Lissy Godfrey APRN Phone: tel: fax: Referral ID Status Reason Start Date Expiration Date Visits Re quested Visits Authorized [id number] Closed 04/08/2018 05/08/2019 1 1 Reason for Visit * Auth/Cert Specialty Diagnoses / Procedures Referred By Alexis t Referred To Contact Diagnoses DKA Diabetic ketoacidosis Procedures GENERAL Referral ID Status Reason Start Date Expiration Date Visits Re quested Visits Authorized [id number] 1 1 Encounter Details Date Type Department Care Team (Latest Contact Info) Description 04/08/2018 12:18 PM CDT - 04/11/2018 5:41 PM CDT [facility] [address] [place] [address] Anson Dominique DO Patel, Parth R, MD [address] [place] [phone] Sanjana Samson MD Discharge Disposition: Left [...] Physician Discharge Summary Patient ID: Steph Roberto [id number] 27-year-old 1990 Admit date: 04/08/2018 Expected Discharge Date: Admitting Physician: Sanjana Samson MD Discharge Physician: SANJANA SAMSON MD Admission Diagnoses: DKA Diabetic ketoacidosis Discharge Diagnoses: DKA, hypoglycemia, UTI Discharged Condition: fair Hospital Course: A 27-year-old female with a past medical history of DMI, HLD, GERD, anxiety, depression, smoker, and UTI who presented to [facility] ICU from [facility] in [place] for Diabetic Ketoacidosis. .? #Diabetic Ketoacidosis: with [...] Nitrofurantoin BID x 5 days -UC from [facility] grew E.Coli SS to Macrobid ?? #Concern for PID as patient reports new sexual partner and poor adherence to condom use, along withnot being seen by her OPEN HEARTH FURNACE OPERATOR HELPER for pap or STI testing in several years. Urine test negative. Renal US negative for pyelonephritis -MINDI OPEN HEARTH FURNACE OPERATOR HELPER consulted for suspected PID, we appreciate your [...] 04/09/2018 Echocardiography Report Pat.Name: STEPH ROBERTO Pat.ID: [id number] St.Date: 04/08/2018 Refer.MD: LISSY GODFREY Exam Time: 2:27:00 PM Study Type:ECHO WITH CARDIAC DOPPLER COMP Height: 165cmWeight: 50kg BSA: 1.53 m2 Age: 5 1990,27Y Sex: FEMALE BP: 108/57 HR: 97 bpm Sonogrphr: Noel Alfonso [facility] Pat. Stat.:Inpatient Room: [place] [address] CPT: 27903 Reason for Study:LV function assessment Procedures:2D, M-mode, [...] Mass 2D Value 79.7 g LV Mass Xsvhi6S Value 52.1 g/m2 RA Volume Atrial Vaz [...] 2.46 cm Right Ventricle 2.53 cm Major [place] 6.37 cm MMODE TA Tricuspid Annul 2.11 cm ++++++++++++++++++++++++++++++++++++ WALL MOTION: ++++++++++++++++++++++++++++++++++++ RESTING WALL MOTION: All uirbe are normal Wall Index = 1 Signed [...] MINI PEN NEEDLES 31G X 5 MM [facility] USE FOR INJECTIONS FOUR TIMES A DAY [...] mL 3 mL Nebulization Q4HPRN Lissy Godfrey, ZIGZAG MACHINE OPERATOR ??? magnesium oxide (MAG-OX) tablet 400 mg [...] mg 20 mg Oral QPM Lissy Godfrey, ZIGZAG MACHINE OPERATOR 20 mg at ??? senna-docusate (SENOKOT-S) 8.6-50 MG tablet 1 tablet 1 tablet Oral Nightly at bedtime Lissy Godfrey, ZIGZAG MACHINE OPERATOR 1 tablet at 04/09/182128 Allergies Allergen Reactions [...] 04/09/2018 Echocardiography Report Pat.Name: PARDEEPRAFATTabitha Huffman Pat.ID: [id number] St.Date: 04/08/2018 Refer.:LISSY GODFREY Exam Time: 2:27:00 PM Study Type:ECHO WITH CARDIAC DOPPLER COMP Height: 165cm Weight: 50kg BSA: 1.53 m2 Age: 5 1990,27Y Sex: FEMALE BP: 108/57 HR: 97 bpm Sonogrphr: Noel Alfonso [facility] Pat. Stat.:Inpatient Room: [place] [address] CPT: 01155 Reason for Study:LV function assessment Procedures:2D, M-mode, [...] Mass 2D Value 79.7 g LV Mass Grrop3O Value 52.1 g/m2 RA Volume Atrial Vaz [...] 2.46 cm Right Ventricle 2.53 cm Major [place] 6.37 cm MMODE TA Tricuspid Annul 2.11 [...] anxiety, depression,smoker, and UTI who presented to [facility] ICU from [place] in [place] for DKA. GI was consulted for abdominal [...] encounter of 04/08/18 ECG 12 lead Narrative [place] [address] [place] [address] Test Date: 2018-04-08 Pat Name: STEPH ROBERTO Department: 1 Room: [place] [address] Gender: Female Content Assistant: TERESA RM : 1990 Requested By: LISSY GODFREY Order Number: [id number] Reading MD: Galen Hernandez Measurements Intervals [place] Rate: 99 P: 57 LA: 135 QRS: 68 QRSD: 73 T: 44 QT: 348 QTc: 447 Interpretive Statements SINUS RHYTHM ECG 12 lead Narrative [place] [address] [place] [address] Test Date: 2018-04-10 Pat Name: SETPH ROBERTO Department: 1 Room: [facility] Gender: Female Content Assistant: [place] : 1990 Requested By: SANJANA SAMSON Order Number: [id number] Reading MD: Galen Hernandez Measurements Intervals [place] Rate: 82 P: 34 LA: 132 QRS: 63 QRSD: 78 T: 43 [...] depression, smoker, and UTI who presented to [facility] ICU from [place] in [place] for Diabetic Ketoacidosis. . ? #Diabetic Ketoacidosis: [...] Nitrofurantoin BID x 5 days -UC from [facility] grew E.Coli SS to Macrobid #Concern for PID as patient reports new sexual partner and poor adherence to condom use, along withnot being seen by her OPEN HEARTH FURNACE OPERATOR HELPER for pap or STI testing in several years. Urine test negative. Renal US negative for pyelonephritis -MINDI OPEN HEARTH FURNACE OPERATOR HELPER consulted for suspected PID, we appreciate your [...] Emely Edouard - 04/11/2018 12:11 PM CDT PRINCIPAL LIBRARIAN provided Pt a list of endocrinologists that cover Pt's area. 1 listed in [place]. Pt frustrated and trying to get a [...] Diabetes who presents as a transport from [facility] in [place] due to concern for diabetic ketoacidosis.??MINDI OPEN HEARTH FURNACE OPERATOR HELPER consulted dueto concern for PID with new [...] is recommended given this clinical picture -MINDI OPEN HEARTH FURNACE OPERATOR HELPER will sign off at this time and [...] acetaminophen, dextrose, dextrose, glucagon, hydrocodone-acetaminophen, ipratropium-albuterol, ondansetron [facility] ASSESSMENT /PLAN Steph Roberto is a 27-year-old female with the following history as recorded in EpicCare: Problem List Items Addressed This Visit None PLAN: A 27-year-old female with a past medical history of DMI, HLD, GERD, anxiety, depression, smoker, and UTI who presented to [facility] ICU from [place] in [place] for Diabetic Ketoacidosis. . ? #Diabetic Ketoacidosis: [...] x 5 days -will follow UC from [facility] #Concern for PID as patient reports new sexual partner and poor adherence to condom use, along withnot being seen by her OPEN HEARTH FURNACE OPERATOR HELPER for pap or STI testing in several years. Urine test negative. Renal US negative for pyelonephritis -MINDI OPEN HEARTH FURNACE OPERATOR HELPER consulted for suspected PID, we appreciate your [...] Diabetes who presents as a transport from [facility] in [place] due to concern for diabetic ketoacidosis. -discussed [...] connecting with a PCP due to having [employer] managed Medicaid. LEGAL SUMMER INTERN locatedtwo clinics near her that accept that insurance but patient states that she has been to both and does not find the level of care provided at either to be satisfactory. 04/09/18 6259 Referral Data Referral Source Self-referral Referral Reason Discharge Planning Source of Information Patient;Nurse;Chart review Patient Information OB Patient < 19 yrs old No Primary Caregiver Self Support System Immediate family;Extended family;Friends Baseline ADL's Functional Status Independent Living Arrangements Children;Parent Type of Residence Private residence Ambulation Independent Bathing/Grooming Independent Dressing Independent Behavior Oriented;Cooperative Communication Talks;Understands speaking;Understands [place] Socioeconomic Needs Caregiver Needed No At Risk of Abuse or Neglect No Income Information Financial Concerns Medication;Other (comment) (Patient has [employer] managed Medicaid and is having difficulty finding [...] depression, smoker, and UTI who presented to [facility] ICU from [place] in [place] for Diabetic Ketoacidosis. The patient had been seen in [facility] ED about a week prior to this for UTI and bronchitis, for which she was sent home on Augmentin. The patient went back to the [facility] ED on 04/08 in the morning with complaints of nausea/vomiting with inability to take PO x 2 days and abdominal pain. Upon evaluation, she was found to be in DKA, she was transferred to [facility] ICU for a higher level of [...] along with not being seen by her OPEN HEARTH FURNACE OPERATOR HELPER for pap or STI testing in several years --MINDI OPEN HEARTH FURNACE OPERATOR HELPER consulted for suspected PID, we appreciate your help --Urine test negative --Yellow vaginal discharge noted by patient --No CVA tenderness on physical exam --Renal US negative for pyelonephritis --Chlamydia and gonorrhea pending --Vaginitis showed gardnerella but no trichomonas --OPEN HEARTH FURNACE OPERATOR HELPER to follow-up on swab results with no [...] to be transferred out of ICU to [facility] Hospitalist Dr. Albin Sims. Past Medical [...] 650 mg Oral Q4H PRN Lissy Godfrey, ZIGZAG MACHINE OPERATOR ??? dextrose (GLUTOSE) 40 % oral gel [...] Units Subcutaneous 3 times per day Lissy oGdfrey APRN 5,000 Units at 04/08/18 1844 ??? insulin glargine (LANTUS) injection 20 Units 20 Units Subcutaneous BID Anson Dominique, 20 Units at 04/09/18 0820 ??? insulin lispro (HUMALOG) injection 0-8 Units 0-8 Units Subcutaneous 4x Daily AC and at bedtime Anson Dominique, DO ??? ipratropium-albuterol (DUONEB) 0.5-2.5 (3) MG/3ML nebulizer solution 3 mL 3 mL Nebulization Q4HPRN Lissy Godfrey, ZIGZAG MACHINE OPERATOR ??? nitrofurantoin (macrocrystal-monohydrate) (MACROBID) capsule 100 mg 100 mg Oral 2 times per dayAnson Dominique, DO 100 mg at 04/09/18 1122 ??? ondansetron (ZOFRAN) injection 4 mg 4 mg Intravenous Q6H PRN Eder Sexton MD 4 mg at 04/09/18 0557 ??? pravastatin (PRAVACHOL) tablet 20 mg 20 mg Oral QPM Lissy Godfrey, ZIGZAG MACHINE OPERATOR ??? senna-docusate (SENOKOT-S) 8.6-50 MG tablet 1 tablet 1 tablet Oral Nightly at bedtime Lissy Godfrey, ZIGZAG MACHINE OPERATOR 1 tablet at 04/08/182032 Allergies Allergen Reactions [...] and skin. [facility] [place] [facility] service. Patient will be signed out to Dr. Nancy Sims by MEDICAL OFFICE PROFESSIONAL INSTRUCTOR. * Adam Waters [facility] - 04/09/2018 1:09 PM CDT Pharmacy Clinical Services: Sign off note Pharmacy has been consulted to dose vancomycin per Dr. Dominique. Pharmacy will now sign off dosing asthe drug has been discontinued. Thank you for allowing us the opportunity to participate in the care of Steph Roberto. Please let pharmacy know if we can be of further assistance. ADAM WATERS [facility] Phone number: [phone] 04/09/2018 1:09 PM * Leta Saenz, RD [...] foods that contain small amounts of peanuts. Cultural/Rastafarian food preferences: none Neuro: WDL Cardiorespiratory: room [...] Nutrient Needs Calories: 1531 kcal/day, based on Bowman-St Jeor x 1.25 Protein: 60 gm/day, based [...] Dr. Sheikh ADAM WATERS RP Phone number: [phone] 04/08/2018 2:50 PM * Anson Dominique DO [...] encounter H&P Notes * Lissy Armida Godfrey, ZIGZAG MACHINE OPERATOR - 04/08/2018 3:59 PM CDT Attending Provider: [...] depression, smoker, and UTI who presented to [facility] ICU from [place] in [place] for Diabetic Ketoacidosis. The patient had been seen in [place]'s ED about a week prior to this for UTI and bronchitis, for which she was sent home on Augmentin. The patient went back to the [facility] ED on 04/08 in the morning with complaints of nausea/vomiting with inability to take PO x 2 days and abdominal pain. Upon evaluation, she was found to be in DKA, she was [facility] ICUfor [facility] of care. [...] depression, smoker, and UTI who presented to [facility] ICU from [place] in [place] for Diabetic Ketoacidosis. The patient had been seen in [place]'s ED about a week prior to this for UTI and bronchitis, for which she was sent home on Augmentin. The patient went back to the [facility] ED on 04/08 in the morning with complaints of nausea/vomiting with inability to take PO x 2 days and abdominal pain. Upon evaluation, she was found to be in DKA, she was transferred to [facility] ICU for a higher level of [...] persistent UTI and possibly PID, for which OPEN HEARTH FURNACE OPERATOR HELPER consulted for further work-up --Testing also being performed to rule out STIs, HIV, , etc. as mentioned below 3. Urinary tract infection --Despite completion of Augmentin course --Initiate Vancomycin and Zosyn and deescalate as appropriate --Concern for PID as patient reports new sexual partner and poor adherence to condom use, along with not being seen by her OPEN HEARTH FURNACE OPERATOR HELPER for pap or STI testing in several years --MINDI OPEN HEARTH FURNACE OPERATOR HELPER consulted for suspected PID, we appreciate your [...] Sub-cu Heparin TID GI Prophylaxis: Not indicated Apck Catheter: Not indicated Central Line: Not indicated [...] IP CONSULT TO ENDOCRINOLOGY Patient Name: Steph oRberto Date of : 1990 Admission Date: 04/08/2018 [...] when herblood sugar dropped in 40s and [facility] endocrinology was consulted to assist [...] Ref Range COLOR YELLOW TRANSPARENCY HAZY Specific Mccaus[place] (U) 1.013 1.002 - 1.035 U PH [...] Echocardiography Report Pat.Name: STEPH ROBERTO Armida Pat.ID: [id number] .Date: 04/08/2018 Refer.MD:LISSY GODFREY Exam Time: 2:27:00 PM Study Type:ECHO WITH CARDIAC DOPPLER COMP Height: 165cm Weight: 50kg BSA: 1.53 m2 Age: 5 1990,27Y Sex: FEMALE BP: 108/57 HR: 97 bpm Sonogrphr: Noel Alfonso [facility] Pat. Stat.:Inpatient Room: [place] [address] CPT: 48750 Reason for Study:LV function assessment Procedures:2D, M-mode, [...] LV Mass 2D Value 79.7 gLV Mass Vxdlu3X Value 52.1 g/m2 RA Volume Atrial Vaz [...] 2.46 cm Right Ventricle 2.53 cm Major [place] 6.37 cm MMODE TA Tricuspid Annul 2.11 [...] MD, 04/08/2018 2:30 PM Order Doctor: LISSY GODFERY Us Retroperitoneal Comp Result Date: 04/08/2018 EXAM: [...] anxiety, depression,smoker, and UTI who presented to [facility] ICU from [place] in [place] for DKA. GI was consulted for abdominal [...] thyroid function should have already been ordered. #[id number] /NTS * Saba Judge MD - 04/08/2018 3:44 PM CDTAssociated Order(s): IP CONSULT TO RUBBER STAMP ASSEMBLER OBGYN Consult Note Patient Name: Steph Roberto Date of : 1990 Admission Date: 04/08/2018 Attending Physician: César Jenkins MD Resident Physician: Saba Judge MD Reason for Consultation: R/O pelvic inflammatory disease History of Present Illness: Steph Roberto is a 27-year-old with Type 1 Diabetes who presents as a transport from [facility] in [place] due to concern for diabetic ketoacidosis. MINDI OPEN HEARTH FURNACE OPERATOR HELPER is consulted dueto concern for pelvic inflammatory disease. She was initially seen at [facility] 4 days ago with cough, urinary [...] diabetic ketoacidosis and was transpor jacob from [place] [facility] ICU. Her abdominal pain is localized to [...] frequency. SKIN: denies any rashes or lesions. STAFF DEVELOPMENT COORDINATOR: see HPI PHYSICAL Temp: [98.8 ??F (37.1 [...] COLOR LIGHT YELLOW TRANSPARENCY SLIGHTLY CLOUDY Specific [place]cc[place] (U) 1.017 1.002 - 1.035 U PH [...] 70 - 109 ECG 12 lead Narrative [place] [address] [place] [address] Test Date: 2018-04-08 Pat Name: STEPH ROBERTO Department: 1 Room: [id number] Gender: Female Content Assistant: TERESA RM : 1990 Requested By: LISSY GODFREY Order Number: [id number] Reading MD: Galen Hernandez Measurements Intervals [place] Rate: 99 P: 57 LA: 135 QRS: 68 QRSD: 73 T: 44 QT: 348 QTc: 447 Interpretive Statements SINUS RHYTHM ASSESSMENT/PLAN Steph Roberto is a 27-year-old with Type 1 Diabetes who presents as a transport from [facility] in [place] due to concern for diabetic ketoacidosis. MINDI OPEN HEARTH FURNACE OPERATOR HELPER is consulted dueto concern for pelvic inflammatory disease. -Low concern for PID given no uterine or cervical motion tenderness, normal white count and afebrile. Vaginal discharge is likely physiologic or infectious etiology. -gonorrhea, chlamydia and vaginitis swabs collected. Pap collected -MINDI OPEN HEARTH FURNACE OPERATOR HELPER will follow up results of swabs. No [...] 3:44 AM CDT Patient voiced concerns to feature writer about becoming hypoglycemic related to insulin [...] Date/Time Associated Diagnosis Comments POCT GLUCOSE - ALACRON DOCKED DEVICE Routine 04/11/2018 12:43 PM CDT [...] 70 - 109 04/11/2018 6:12 PM CDT [facility] LAB ORDERS INTERFACE 04/11/2018 12:4 3 PM CDT us Sanjana Samson MD POCT ORDERABLES - DEVICE Fi nal Result [facility] LAB ORDERS INTERFACE US * (ABNORMAL) POCT glucose (04/11/2018 10:28 AM CDT) GLUCOSE POC 229(H) 70 - 109 04/11/2018 10:30 AM CDT [facility] LAB ORDERS INTERFACE 04/11/2018 10:2 8 AM CDT us Sanjana Samson MD POCT ORDERABLES - DEVICE Fi nal Result [facility] LAB ORDERS INTERFACE US * POCT glucose (04/11/2018 9:10 AM CDT) GLUCOSE POC 74 70 - 109 04/11/2018 9:15 AM CDT [facility] LAB ORDERS INTERFACE 04/11/2018 9:10 AM CDT us Sanjana Samson MD POCT ORDERABLES - DEVICE Fi nal Result Performing Organization Address [facility] de Phone Number [facility] LAB ORDERS INTERFACE US * (ABNORMAL) POCT glucose (04/11/2018 8:42 AM CDT) GLUCOSE POC 43(L) 70 - 109 04/11/2018 9:14 AM CDT [facility] LAB ORDERS INTERFACE 04/11/2018 8:42 AM CDT us Sanjana Samson MD POCT ORDERABLES - DEVICE Fi nal Result Performing Organization Address [facility] de Phone Number [facility] LAB ORDERS INTERFACE US * (ABNORMAL) BASIC METABOLIC PANEL (04/11/2018 7:48 AM CDT) SODIUM S/P/B 139 136 - 145 MMOL/L 04/11/2018 8:27 AM CDT [facility] POTASSIUM S/P/B 3.5 3.5 - 5.1 MMOL/L 04/11/2018 8:27 AM CDT [facility] CHLORIDE S/P/B 104 98 - 107 MMOL/L 04/11/2018 8:27 AM CDT [facility] CO2 29.3 21.0 - 32.0 MMOL/L 04/11/2018 8:27 AM CDT [facility] GLUCOSE 55(L) 74 - 106 MG/DL 04/11/2018 8:27 AM CDT [facility] BUN 5(L) 7 - 18 MG/DL 04/11/2018 8:27 AM CDT [facility] CREATININE S/P/B 0.55 0.55 - 1.02 MG/DL 04/11/2018 8:27 AM T [facility] CALCIUM S/P/B 8.4 8.4 - 10.5 [...] CDT Anson Dominique DO LABORATORY Final Result [facility] [address] [place] [address], [place] [phone] * (ABNORMAL) CBC, AUTO, NO DIFF (04/11/2018 7:48 AM CDT) WBC 2.6(L) 4.0 - 10.8 x10'3/uL 04/11/2018 8:04 AM CDT [facility] RBC 3.95(L) 4.10 - 5.40 x10'6/uL 04/11/2018 8:04 AM CDT [facility] HGB 12.1 12.0 - 16.0 G/DL 04/11/2018 8:04 AM CDT [facility] HCT 34.5(L) 36.0 - 47.0 % 04/11/2018 8:04 AM CDT [facility] MCV 87.3 78.0 - 100.0 FL 04/11/2018 8:04 AM CDT [facility] MCH 30.6 27.0 - 31.0 PG 04/11/2018 8:04 AM CDT [facility] MCHC 35.1 33.0 - 36.0 G/DL 04/11/2018 8:04 AM CDT [facility] RDW 11.7 11.5 - 14.5 % 04/11/2018 8:04 AM CDT [facility] PLT 167 150 - 350 x10'3/uL 04/11/2018 8:04 AM CDT [facility] MPV 9.6 7.4 - 10.4 FL 04/11/2018 8:04 AM CDT [facility] 04/11/2018 7:48 AM CDT Lissy Godfrey ZIGZAG MACHINE OPERATOR LABORATORY Final R esult [facility] [address] [place] [address], [id number] * POCT glucose (04/11/2018 5:33 AM CDT) GLUCOSE POC 95 70 - 109 04/11/2018 5:34 AM CDT [facility] LAB ORDERS INTERFACE 04/11/2018 5:33 AM CDT Sanjana Samson MD POCT ORDERABLES - DEVICE Fi nal Result Performing Organization Address [facility] Co de Phone Number [facility] LAB ORDERS INTERFACE US * (ABNORMAL) POCT glucose (04/11/2018 3:38 AM CDT) GLUCOSE POC 130(H) 70 - 109 04/11/2018 3:41 AM CDT [facility] LAB ORDERS INTERFACE 04/11/2018 3:38 AM CDT Sanjana Samson MD POCT ORDERABLES - DEVICE Fi nal Result Performing Organization Address [facility] Co de Phone Number [facility] LAB ORDERS INTERFACE US * (ABNORMAL) POCT glucose (04/10/2018 11:33 PM CDT) GLUCOSE POC 168(H) 70 - 109 04/10/2018 11:37 PM CDT [facility] LAB ORDERS INTERFACE 04/10/2018 11:3 3 PM CDT us Sanjana Samson MD POCT ORDERABLES - DEVICE Fi nal Result Performing Organization Address [facility] Co de Phone Number [facility] LAB ORDERS INTERFACE US * (ABNORMAL) POCT glucose (04/10/2018 9:31 PM CDT) GLUCOSE POC 188(H) 70 - 109 04/10/2018 9:45 PM CDT [facility] LAB ORDERS INTERFACE 04/10/2018 9:31 PM CDT us Sanjana Samson MD POCT ORDERABLES - DEVICE Fi nal Result Performing Organization Address [facility] Co de Phone Number [facility] LAB ORDERS INTERFACE US * (ABNORMAL) POCT glucose (04/10/2018 8:17 PM CDT) GLUCOSE POC 237(H) 70 - 109 04/10/2018 8:20 PM CDT [facility] LAB ORDERS INTERFACE 04/10/2018 8:17 PM CDT us Sanjana Samson MD POCT ORDERABLES - DEVICE Fi nal Result Performing Organization Address [facility] de Phone Number [facility] LAB ORDERS INTERFACE US * CT [...] 70 - 109 04/10/2018 5:12 PM CDT [facility] LAB ORDERS INTERFACE 04/10/2018 4:21 PM CDT Sanjana Samson MD POCT ORDERABLES - DEVICE Fi nal Result Performing Organization Address [facility]/ZIP Co de Phone Number [facility] LAB ORDERS INTERFACE US * POCT glucose (04/10/2018 2:49 PM CDT) GLUCOSE POC 87 70 - 109 04/10/2018 2:52 PM CDT [facility] LAB ORDERS INTERFACE Comment:RN Notified 04/10/2018 2:49 PM CDT Sanjana Samson MD POCT ORDERABLES - DEVICE Fi nal Result Performing Organization Address [facility]/State/ZIP Co de Phone Number [facility] LAB ORDERS INTERFACE US * (ABNORMAL) POCT glucose (04/10/2018 2:31 PM CDT) GLUCOSE POC 54(L) 70 - 109 04/10/2018 2:33 PM CDT [facility] LAB ORDERS INTERFACE Comment:RN Notified 04/10/2018 2:31 PM CDT us Sanjana Samson MD POCT ORDERABLES - DEVICE Fi nal Result [facility] LAB ORDERS INTERFACE US * ECG 12 lead (04/10/2018 12:24 PM CDT) 04/10/2018 12:2 4 PM CDT Narrative [facility] RADIOLOGY - 04/10/2018 1:45 PM CDT ? [facility] ? [address], [place] ??[address] ? Test Date: ?2018-04-10 Pat Name: ? STEPHTabitha ROBERTO ? Department: ?? 1 ? Room: ? 712AA Gender: ? Female ? Content Assistant: ?? [place] : ?1990 ? Requested By: SANJANA SAMSON Order Number: [id number] ? Reading : ?? Galen Hernandez ? Measurements Intervals ?[place] ? Rate: ? 82 ? P: ?34 LA: ? 132 ?QRS: ?63 QRSD: ? 78 ? T: ?43 QT: ? 356 ? QTc: ?418 ? Interpretive Statements SINUS RHYTHM POSSIBLE RIGHT VENTRICULAR CONDUCTION DELAY NONSPECIFIC T-WAVE ABNORMALITY Procedure Note Galen Hernandez MD - 04/10/2018 [place] [address] [place] [address] Test Date: 2018-04-10 Pat Name: STEPH ROBERTO Department: 1 Room: [facility] Gender: Female Content Assistant: [place] : 1990 Requested By: SANJANA SAMSON Order Number: [id number] Rony MD: Galen Hernandez Measurements Intervals [place] Rate: 82 P: 34 LA: 132 QRS: 63 QRSD: 78 T: 43 QT: 356 QTc: 418 Interpretive Statements SINUS RHYTHM POSSIBLE RIGHT VENTRICULAR CONDUCTION DELAY NONSPECIFIC T-WAVE ABNORMALITY us Sanjana Samson MD ECG ORDERABLES Final Resul t [facility] * (ABNORMAL) URINALYSIS (04/10/2018 11:40 AM CDT) COLOR (U) YELLOW 04/10/2018 1:32 PM CDT [facility] TRANSPARENCY HAZY 04/10/2018 1:32 PM CDT [facility] SPECIFIC GRAVITY (U) 1.013 1.002 - 1.035 04/10/2018 1:32 PM CDT [facility] U PH 6.0 5 - 8 04/10/2018 1:32 PM CDT [facility] PROTEIN (U) NEGATIVE NEGATIVE 04/10/2018 1:32 PM CDT [facility] URINE GLUCOSE NEGATIVE NEGATIVE MG/DL 04/10/2018 1:32 PM CDT [facility] KETONES MG/DL (U) 20(A) NEGATIVE 04/10/2018 1:32 PM CDT [facility] BILIRUBIN (U) NEGATIVE NEGATIVE 04/10/2018 1:32 PM CDT [facility] BLOOD (U) NEGATIVE NEGATIVE 04/10/2018 1:32 PM CDT [facility] NITRITES NEGATIVE NEGATIVE 04/10/2018 1:32 PM CDT [facility] UROBILINOGEN NORMAL 0 - 1 EU/DL 04/10/2018 1:32 PM CDT [facility] LEUKOCYTES (U) NEGATIVE NEGATIVE 04/10/2018 1:32 PM CDT [facility] RBC/HPF <1 0 - 3 /HPF 04/10/2018 1:32 PM CDT [facility] WBC/HPF 1 0 - 6 /HPF 04/10/2018 1:32 PM CDT [facility] BACTERIA (U) NONE /HPF 04/10/2018 1:32 PM CDT [facility] SQUAMOUS EPITHELIALS 12 04/10/2018 1:32 PM CDT [facility] URINE SPECIMEN OBTAINED BY CLEAN CATCH PROCEDURE / Unknown 04/10/2018 11:40 AM CDT Sanjana Samson MD URINE ORDERABLES Final Resu lt Performing Organization Address City/[facility]/ZIP Co de Phone Number [facility] [address] [place] [address], [phone] * (ABNORMAL) POCT glucose (04/10/2018 10:27 AM CDT) GLUCOSE POC 162(H) 70 - 109 04/10/2018 10:34 AM CDT [facility] ORDERS INTERFACE 04/10/2018 10:2 7 AM CDT Albin Sims MD POCT ORDERABLES - DEVICE Final Result Performing Organization Address [facility] Co de Phone Number [facility] ORDERS INTERFACE US * (ABNORMAL) CBC, AUTO, NO DIFF (04/10/2018 3:30 AM CDT) WBC 3.8(L) 4.0 - 10.8 x10'3/uL 04/10/2018 3:54 AM CDT [facility] RBC 3.67(L) 4.10 - 5.40 x10'6/uL 04/10/2018 3:54 AM CDT [facility] HGB 11.3(L) 12.0 - 16.0 G/DL 04/10/2018 3:54 AM CDT [facility] HCT 32.8(L) 36.0 - 47.0 % 04/10/2018 3:54 AM CDT [facility] MCV 89.4 78.0 - 100.0 FL 04/10/2018 3:54 AM CDT [facility] MCH 30.8 27.0 - 31.0 PG 04/10/2018 3:54 AM CDT [facility] MCHC 34.5 33.0 - 36.0 G/DL 04/10/2018 3:54 AM CDT [facility] RDW 11.9 11.5 - 14.5 % 04/10/2018 3:54 AM CDT [facility] PLT 182 150 - 350 x10'3/uL 04/10/2018 3:54 AM CDT [facility] MPV 9.8 7.4 - 10.4 FL 04/10/2018 3:54 AM CDT [facility] 04/10/2018 3:30 AM CDT Lissy Godfrey APRN LABORATORY Final R esult Performing Organization Address [facility] Co de Phone Number [facility] [address] [place] [address], [phone] * (ABNORMAL) THYROID STIM HORMONE, TSH (04/10/2018 3:29 AM CDT) TSH 6.290(H) 0.358 - 3.740 uIU/ML 04/10/2018 5:59 PM CDT [facility] 04/10/2018 3:29 AM CDT Aissatou Hughes MD LABORATORY Final Result Performing Organization Address [facility] Co de Phone Number [facility] [address] [place] [address], [phone] * (ABNORMAL) MAGNESIUM (04/10/2018 3:29 AM CDT) MAGNESIUM 1.5(L) 1.6 - 2.6 MG/DL 04/10/2018 4:03 AM CDT [facility] 04/10/2018 3:29 AM CDT Albin Sims MD LABORATORY Final Result Performing Organization Address [facility] de Phone Number [facility] [address] [place] [address], [phone] * ELECTROLYTE PANEL (04/10/2018 3:29 AM CDT) SODIUM S/P/B 136 136 - 145 MMOL/L 04/10/2018 5:35 PM CDT [facility] Comment: ELECTROLYTE PANEL AND MG CREDITED. DUPLICATE ORDER POTASSIUM S/P/B 4.2 3.5 - 5.1 MMOL/L 04/10/2018 4:03 AM CDT [facility] CHLORIDE S/P/B 105 98 - 107 MMOL/L 04/10/2018 4:03 AM CDT [facility] CO2 24.5 21.0 - 32.0 MMOL/L 04/10/2018 4:03 AM CDT [facility] ANION GAP 6.5 MMOL/L 04/10/2018 5:35 PM CDT [facility] Comment:REFERENCE RANGE NOT ESTABLISHED 04/10/2018 3:29 AM CDT Albin Sims MD LABORATORY Final Result Performing Organization Address [facility] de Phone Number [facility] [address] [place] [address], [phone] * (ABNORMAL) BASIC METABOLIC PANEL (04/10/2018 3:29 AM CDT) SODIUM S/P/B 136 136 - 145 MMOL/L 04/10/2018 4:07 AM CDT [facility] POTASSIUM S/P/B 4.2 3.5 - 5.1 MMOL/L 04/10/2018 4:07 AM CDT [facility] CHLORIDE S/P/B 105 98 - 107 MMOL/L 04/10/2018 4:07 AM CDT [facility] CO2 24.3 21.0 - 32.0 MMOL/L [...] <15 ml/min/1.73 m2 04/10/2018 3:29 AM CDT [facility] LABORATORY Final Result Performing Organization Address [facility] de Phone Number [facility] [address] [place] [address], [phone] * PHOSPHORUS, INORGANIC PHOSPHATE (04/10/2018 3:29 AM CDT) PHOSPHORUS 2.9 2.5 - 4.9 MG/DL 04/10/2018 4:07 AM CDT [facility] 04/10/2018 3:29 AM CDT [facility] LABORATORY Final Result Performing Organization Address [facility] de Phone Number [facility] [address] [place] [address], [place] [phone] * MAGNESIUM (04/10/2018 3:29 AM CDT) MAGNESIUM 1.6 1.6 - 2.6 MG/DL 04/10/2018 4:07 AM CDT [facility] 04/10/2018 3:29 AM CDT [facility] LABORATORY Final Result Performing Organization Address [facility] Co de Phone Number [facility] [address] [place] [address], [place] [phone] * (ABNORMAL) POCT glucose (04/10/2018 2:38 AM CDT) GLUCOSE POC 254(H) 70 - 109 04/10/2018 2:43 AM CDT [facility] ORDERS INTERFACE 04/10/2018 2:38 AM CDT us Albin Sims MD POCT ORDERABLES - DEVICE Final Result Performing Organization Address [facility] Co de Phone Number [facility] ORDERS INTERFACE US * (ABNORMAL) POCT glucose (04/09/2018 8:35 PM CDT) GLUCOSE POC 121(H) 70 - 109 04/09/2018 9:13 PM CDT [facility] ORDERS INTERFACE 04/09/2018 8:35 PM CDT us Albin Sims MD POCT ORDERABLES - DEVICE Final Result Performing Organization Address [facility] de Phone Number [facility] ORDERS INTERFACE US * (ABNORMAL) POCT glucose (04/09/2018 4:11 PM CDT) GLUCOSE POC 372(H) 70 - 109 04/09/2018 4:13 PM CDT [facility] ORDERS INTERFACE Comment:RN Notified 04/09/2018 4:11 PM CDT us Albin Sims MD POCT ORDERABLES - DEVICE Final Result Performing Organization Address [facility] Co de Phone Number [facility] ORDERS INTERFACE US * POCT glucose (04/09/2018 9:53 AM CDT) GLUCOSE POC 77 70 - 109 04/09/2018 9:55 AM CDT [facility] ORDERS INTERFACE Comment:RN Notified 04/09/2018 9:53 AM CDT us Anson Dominique DO POCT ORDERABLES - DEVICE Final Result Performing Organization Address [facility] Co de Phone Number [facility] ORDERS INTERFACE US * (ABNORMAL) POCT glucose (04/09/2018 6:53 AM CDT) GLUCOSE POC 130(H) 70 - 109 04/09/2018 6:55 AM CDT [facility] ORDERS INTERFACE 04/09/2018 6:53 AM CDT us Anson Dominique DO POCT ORDERABLES - DEVICE Final Result Performing Organization Address City/[facility]/ZIP Co de Phone Number [facility] ORDERS INTERFACE US * (ABNORMAL) POCT glucose (04/09/2018 6:00 AM CDT) GLUCOSE POC 154(H) 70 - 109 04/09/2018 6:03 AM CDT [facility] ORDERS INTERFACE 04/09/2018 6:00 AM CDT us Anson Dominique DO POCT ORDERABLES - DEVICE Final Result Performing Organization Address [facility] Co de Phone Number [facility] ORDERS INTERFACE US * (ABNORMAL) POCT glucose (04/09/2018 4:10 AM CDT) GLUCOSE POC 195(H) 70 - 109 04/09/2018 4:14 AM CDT [facility] ORDERS INTERFACE 04/09/2018 4:10 AM CDT us Anson Dominique DO POCT ORDERABLES - DEVICE Final Result Performing Organization Address [facility] Co de Phone Number [facility] ORDERS INTERFACE US * PHOSPHORUS, INORGANIC PHOSPHATE (04/09/2018 4:05 AM CDT) PHOSPHORUS 2.7 2.5 - 4.9 MG/DL 04/09/2018 4:49 AM CDT [facility] 04/09/2018 4:05 AM CDT us Anson Dominique DO LABORATORY Final Result Performing Organization Address City/[facility]/ZIP Co de Phone Number [facility] [address] [place] [address], [place] [phone] * (ABNORMAL) MAGNESIUM (04/09/2018 4:05 AM CDT) Pathologist [facility] MAGNESIUM 1.5(L) 1.6 - 2.6 MG/DL 04/09/2018 4:49 AM CDT [facility] 04/09/2018 4:05 AM CDT [facility] LABORATORY Final Result [facility] [address] [place] [address], [phone] * (ABNORMAL) CBC, AUTO, NO DIFF (04/09/2018 4:05 AM CDT) Pathologist [facility] WBC 5.9 4.0 - 10.8 x10'3/uL 04/09/2018 4:25 AM CDT [facility] RBC 3.31(L) 4.10 - 5.40 x10'6/uL 04/09/2018 4:25 AM CDT [facility] HGB 10.2(L) 12.0 - 16.0 G/DL 04/09/2018 4:25 AM CDT [facility] HCT 29.1(L) 36.0 - 47.0 % 04/09/2018 4:25 AM CDT [facility] MCV 87.9 78.0 - 100.0 FL 04/09/2018 4:25 AM CDT [facility] MCH 30.8 27.0 - 31.0 PG 04/09/2018 4:25 AM CDT [facility] MCHC 35.1 33.0 - 36.0 G/DL 04/09/2018 4:25 AM CDT [facility] RDW 11.9 11.5 - 14.5 % 04/09/2018 4:25 AM CDT [facility] PLT 210 150 - 350 x10'3/uL 04/09/2018 4:25 AM CDT [facility] MPV 9.7 7.4 - 10.4 FL 04/09/2018 4:25 AM CDT [facility] 04/09/2018 4:05 AM CDT Lissy Godfrey ZIGZAG MACHINE OPERATOR LABORATORY Final R esult [facility] [address] [place] [address], [phone] * (ABNORMAL) BASIC METABOLIC PANEL (04/09/2018 4:05 AM CDT) SODIUM S/P/B 141 136 - 145 MMOL/L 04/09/2018 4:49 AM CDT [facility] POTASSIUM S/P/B 3.6 3.5 - 5.1 MMOL/L 04/09/2018 4:49 AM CDT [facility] CHLORIDE S/P/B 113(H) 98 - 107 MMOL/L 04/09/2018 4:49 AM CDT [facility] CO2 19.2(L) 21.0 - 32.0 MMOL/L 04/09/2018 4:49 AM CDT [facility] GLUCOSE 171(H) 74 - 106 MG/DL 04/09/2018 4:49 AM CDT [facility] BUN 5(L) 7 - 18 MG/DL 04/09/2018 4:49 AM CDT [facility] CREATININE S/P/B 0.62 0.55 - 1.02 MG/DL 04/09/2018 4:49 AM CDT [facility] CALCIUM S/P/B 7.4(L) 8.4 - 10.5 MG/DL 04/09/2018 4:49 AM CDT [facility] ANION GAP 8.8 MMOL/L 04/09/2018 4:49 AM CDT [facility] Comment:REFERENCE RANGE NOT ESTABLISHED OSMOLALITY (CALC) 293 MOSM/KG 018 4:49 AM CDT [facility] Comment:REFERENCE RANGE NOT ESTABLISHED EGFR NON-AFR. AMER. >90 >90 ML/MIN/1. 73 M2 04/09/2018 4:49 AM CDT [facility] Comment: THE ESTIMATED GFR IS CALCULATED [...] ML/MIN/1. 73 M2 04/09/2018 4:49 AM CDT [facility] Comment: THE ESTIMATED GFR IS CALCULATED [...] 04/09/2018 4:05 AM CDT us Lissy Godfrey ZIGZAG MACHINE OPERATOR LABORATORY Final R esult [facility] [address] [place] [address], [phone] * BETA-HYDROXYBUTYRATE (04/09/2018 4:05 AM CDT) BETA-HYDROXYBUT YRATE 0.3 0.0 - 0.3 MMOL/L 04/09/2018 4:47 AM CDT [facility] 04/09/2018 4:05 AM CDT Anson Dominique DO LABORATORY Final Result Performing Organization Address City/[facility] Co de Phone Number [facility] [address] [place] [address], [phone] * (ABNORMAL) POCT glucose (04/09/2018 2:04 AM CDT) GLUCOSE POC 199(H) 70 - 109 04/09/2018 2:06 AM CDT [facility] ORDERS INTERFACE 04/09/2018 2:04 AM CDT [facility] PO[facility] ORDERABLES - DEVICE Final Result Performing Organization Address [facility] de Phone Number [facility] ORDERS INTERFACE US * PHOSPHORUS, INORGANIC PHOSPHATE (04/09/2018 12:17 AM CDT) PHOSPHORUS 3.8 2.5 - 4.9 MG/DL 04/09/2018 12:55 AM CDT [facility] 04/09/2018 12:1 7 AM CDT Lissy Godfrey ZIGZAG MACHINE OPERATOR LABORATORY Final R esult Performing Organization Address [facility] Co de Phone Number [facility] [address] [place] [address], [phone] * MAGNESIUM (04/09/2018 12:17 AM CDT) MAGNESIUM 1.7 1.6 - 2.6 MG/DL 04/09/2018 12:53 AM CDT [facility] 04/09/2018 12:1 7 AM CDT us Lissy Godfrey ZIGZAG MACHINE OPERATOR LABORATORY Final R esult [facility] [address] [place] [address], [phone] * (ABNORMAL) BASIC METABOLIC PANEL (04/09/2018 12:17 AM CDT) SODIUM S/P/B 140 136 - 145 MMOL/L 04/09/2018 12:53 AM CDT [facility] POTASSIUM S/P/B 3.8 3.5 - 5.1 MMOL/L 04/09/2018 12:53 AM CDT [facility] CHLORIDE S/P/B 111(H) 98 - 107 MMOL/L 04/09/2018 12:53 AM CDT [facility] CO2 18.5(L) 21.0 - 32.0 MMOL/L 04/09/2018 12:53 AM CDT [facility] GLUCOSE 174(H) 74 - 106 MG/DL 04/09/2018 12:53 AM CDT [facility] BUN 6(L) 7 - 18 MG/DL 04/09/2018 12:53 AM CDT [facility] CREATININE S/P/B 0.61 0.55 - 1.02 MG/DL 04/09/2018 12:53 AM CDT [facility] CALCIUM S/P/B 7.7(L) 8.4 - 10.5 MG/DL 04/09/2018 12:53 AM CDT [facility] ANION GAP 10.5 MMOL/L 04/09/2018 12:53 AM CDT [facility] Comment:REFERENCE RANGE NOT ESTABLISHED OSMOLALITY (CALC) 292 MOSM/KG 018 12:53 AM CDT [facility] Comment:REFERENCE RANGE NOT ESTABLISHED EGFR NON-AFR. AMER. >90 >90 ML/MIN/1. 73 M2 04/09/2018 12:53 AM CDT [facility] Comment: THE ESTIMATED GFR IS CALCULATED [...] ML/MIN/1. 73 M2 04/09/2018 12:53 AM CDT [facility] Comment: THE ESTIMATED GFR IS CALCULATED [...] 12:1 7 AM CDT us Lissy Godfrey ZIGZAG MACHINE OPERATOR LABORATORY Final R esult [facility] [address] [place] [address], [phone] * (ABNORMAL) POCT glucose (04/09/2018 12:17 AM CDT) [facility] GLUCOSE POC 184(H) 70 - 109 04/09/2018 12:21 AM CDT [facility] ORDERS INTERFACE 04/09/2018 12:1 7 AM CDT us Anson Dominique DO POCT ORDERABLES - DEVICE Final Result Performing Organization Address [facility] Co de Phone Number [facility] ORDERS INTERFACE US * (ABNORMAL) BETA-HYDROXYBUTYRATE (04/09/2018 12:17 AM CDT) BETA-HYDROXYBU TYRATE 0.4(H) 0.0 - 0.3 MMOL/L 04/09/2018 12:30 AM CDT [facility] 04/09/2018 12:1 7 AM CDT us Anson Dominique DO LABORATORY Final Result Performing Organization Address [facility] de Phone Number [facility] [address] [place] [address], [phone] * (ABNORMAL) POCT glucose (04/08/2018 11:11 PM CDT) GLUCOSE POC 178(H) 70 - 109 04/08/2018 11:13 PM CDT [facility] ORDERS INTERFACE 04/08/2018 11:1 1 PM CDT us Anson Dominique DO POCT ORDERABLES - DEVICE Final Result Performing Organization Address [facility] Co de Phone Number [facility] ORDERS INTERFACE US * (ABNORMAL) PHOSPHORUS, INORGANIC PHOSPHATE (04/08/2018 8:58 PM CDT) PHOSPHORUS 1.2(L) 2.5 - 4.9 MG/DL 04/08/2018 9:58 PM CDT [facility] 04/08/2018 8:58 PM CDT us Anson Dominique DO LABORATORY Final Result Performing Organization Address [facility] Co de Phone Number [facility] [address] [place] [address], [phone] * MAGNESIUM (04/08/2018 8:58 PM CDT) MAGNESIUM 2.0 1.6 - 2.6 MG/DL 04/08/2018 9:40 PM CDT [facility] 04/08/2018 8:58 PM CDT [facility] LABORATORY Final Result Performing Organization Address [facility] Co de Phone Number [facility] [address] [place] [address], [phone] * (ABNORMAL) BETA-HYDROXYBUTYRATE (04/08/2018 8:58 PM CDT) BETA-HYDROXYBU TYRATE 0.8(H) 0.0 - 0.3 MMOL/L 04/08/2018 9:16 PM CDT [facility] 04/08/2018 8:58 PM CDT [facility] LABORATORY Final Result Performing Organization Address City/State/[facility] Co de Phone Number [facility] [address] [place] [address], [phone] * (ABNORMAL) BASIC METABOLIC PANEL (04/08/2018 8:58 PM CDT) SODIUM S/P/B 138 136 - 145 MMOL/L 04/08/2018 9:40 PM CDT [facility] POTASSIUM S/P/B 3.8 3.5 - 5.1 MMOL/L 04/08/2018 9:40 PM CDT [facility] CHLORIDE S/P/B 110(H) 98 - 107 MMOL/L 04/08/2018 9:40 PM CDT [facility] CO2 18.5(L) 21.0 - 32.0 MMOL/L [...] m2 04/08/2018 8:58 PM CDT Lissy Godfrey ZIGZAG MACHINE OPERATOR LABORATORY Final R esult [facility] [address] [place] [phone], [phone] * (ABNORMAL) POCT glucose (04/08/2018 7:14 PM CDT) GLUCOSE POC 151(H) 70 - 109 04/08/2018 7:26 PM CDT [facility] ORDERS INTERFACE 04/08/2018 7:14 PM CDT Anson Dominique DO POCT ORDERABLES - DEVICE Final Result Performing Organization Address [facility] Co de Phone Number [facility] ORDERS INTERFACE US * (ABNORMAL) POCT glucose (04/08/2018 6:10 PM CDT) GLUCOSE POC 154(H) 70 - 109 04/08/2018 6:40 PM CDT [facility] ORDERS INTERFACE 04/08/2018 6:10 PM CDT Anson Dominique DO POCT ORDERABLES - DEVICE Final Result [facility] ORDERS INTERFACE US * (ABNORMAL) POCT glucose (04/08/2018 5:10 PM CDT) GLUCOSE POC 132(H) 70 - 109 04/08/2018 5:11 PM CDT [facility] ORDERS INTERFACE 04/08/2018 5:10 PM CDT us Anson Dominique POCT ORDERABLES - DEVICE Final Result Performing Organization Address [facility] Co de Phone Number [facility] ORDERS INTERFACE US * SYPHILIS/RPR/VDRL; QUAL (04/08/2018 4:30 PM CDT) RPR NON-REACTIV E NON-REACTI VE 04/09/2018 11:29 AM CDT [facility] 04/08/2018 4:30 PM CDT Lissy Godfrey APRN LABORATORY Final R esult Performing Organization Address [facility] de Phone Number [facility] [address] [place] [address], [phone] * HIV - RAPID (04/08/2018 4:30 PM CDT) HIV RAPID NON-REACTI VE NON-REACTI VE 04/08/2018 8:08 PM CDT [facility] Comment:HIV 1 p24 Ag and HIV 1/ HIV 2 Ab not detected. 04/08/2018 4:30 PM CDT Lissy Godfrey APRN LABORATORY Final R esult Performing Organization Address [facility] de Phone Number [facility] [address] [place] [address], [place] [phone] * (ABNORMAL) PHOSPHORUS, INORGANIC PHOSPHATE (04/08/2018 4:30 PM CDT) PHOSPHORUS 1.3(L) 2.5 - 4.9 MG/DL 04/08/2018 5:36 PM CDT [facility] 04/08/2018 4:30 PM CDT us Lissy Godfrey ZIGZAG MACHINE OPERATOR LABORATORY Final R esult [facility] [address] [place] [address], [phone] * (ABNORMAL) BASIC METABOLIC PANEL (04/08/2018 4:30 PM CDT) SODIUM S/P/B 134(L) 136 - 145 MMOL/L 04/08/2018 5:36 PM CDT [facility] POTASSIUM S/P/B 4.0 3.5 - 5.1 MMOL/L 04/08/2018 5:36 PM CDT [facility] CHLORIDE S/P/B 112(H) 98 - 107 MMOL/L 04/08/2018 5:36 PM CDT [facility] CO2 11.7(L) 21.0 - 32.0 MMOL/L 04/08/2018 5:36 PM CDT [facility] GLUCOSE 114(H) 74 - 106 MG/DL 04/08/2018 5:36 PM CDT [facility] BUN 11 7 - 18 MG/DL 04/08/2018 5:36 PM CDT [facility] CREATININE S/P/B 0.75 0.55 - 1.02 MG/DL 04/08/2018 5:36 PM CDT [facility] CALCIUM S/P/B 6.8(L) 8.4 - 10.5 MG/DL 04/08/2018 5:36 PM CDT [facility] ANION GAP 10.3 MMOL/L 04/08/2018 5:36 PM CDT [facility] Comment:REFERENCE RANGE NOT ESTABLISHED OSMOLALITY (CALC) 278 MOSM/KG 018 5:36 PM CDT [facility] Comment:REFERENCE RANGE NOT ESTABLISHED EGFR NON-AFR. AMER. >90 >90 ML/MIN/1. 73 M2 04/08/2018 5:36 PM CDT [facility] Comment: THE ESTIMATED GFR IS CALCULATED [...] ML/MIN/1. 73 M2 04/08/2018 5:36 PM CDT [facility] Comment: THE ESTIMATED GFR IS CALCULATED [...] Lissy Godfrey APRN LABORATORY Final R esult [facility] [address] [place] [address], [phone] * (ABNORMAL) POCT glucose (04/08/2018 3:57 PM CDT) GLUCOSE POC 120(H) 70 - 109 04/08/2018 5:11 PM CDT [facility] ORDERS INTERFACE 04/08/2018 3:57 PM CDT Anson Dominique DO POCT ORDERABLES - DEVICE Final Result [facility] ORDERS INTERFACE US * VAGINITIS SCREEN (04/08/2018 3:28 PM CDT) SPEC DESCRIPTION CERVIX 04/08/2018 4:33 PM CDT [facility] SPECIAL REQUESTS NO SPECIAL REQUEST 04/08/2018 4:33 PM CDT [facility] RESULT TRICHOMONAS VAGINALIS NEGATIVE 04/08/2018 5:21 PM CDT [facility] RESULT GARDNERELLA VAGINALIS POSITIVE 04/08/2018 5:21 PM CDT [facility] RESULT JOHNY SPECIES NEGATIVE 04/08/2018 5:21 PM CDT [facility] SPECIMEN FROM UTERINE CERVIX / Unknown 04/08/2018 3:28 PM CDT 04/08/2018 4:33 PM CDT us Saba Judge MD MICROBIOLOGY - GENERAL ORDERABL ES Final Result Performing Organization Address [facility] Co de Phone Number [facility] [address] [place] [address], [phone] * US RETROPERITONEAL COMP (04/08/2018 3:21 PM [...] ?Echocardiography Report Pat.Name: ??STEPH ROBERTO ? Pat.ID: ?[id number] ? St.Date: ?? 04/08/2018 ? Refer.MD: ??LISSY GODFREY ? Exam Time: 2:27:00 PM ? Study Type:ECHO WITH CARDIAC DOPPLER COMP Height: ?165cm ? Weight: ?50kg ? BSA: ? 1.53 m2 ?Age: ??1990,27Y ? Sex: ? FEMALE ?BP: ?108/57 ? HR: ?97 bpm ?Sonogrphr: Noel Alfonso RDCS ? Pat. Stat.:Inpatient ? Room: ?[facility] ? CPT: ?? 23298 ? Reason for Study:LV function assessment Procedures:2D, [...] Value ? 79.7 g ? LV Mass [id number] ?? Value ? 52.1 g/m2 ? RA [...] ? Right Ventricle ??2.53 cm ?? Major [place] ?6.37 cm ?MMODE TA ?? Tricuspid Annul ??2.11 cm ? ++++++++++++++++++++++++++++++++++++ WALL MOTION: ++++++++++++++++++++++++++++++++++++ RESTING WALL MOTION: All uribe are normal Wall Index = 1 Signed 04/09/2018 06:59 AM Adama Hicks M.D. Procedure Note Osmar Hicks MD - 04/09/2018 Echocardiography Report Pat.Name: STEPH ROBERTO Pat.ID: [id number] .Date: 04/08/2018 Refer.MD: LISSY GODFREY Exam Time: 2:27:00 PM Study Type:ECHO WITH CARDIAC DOPPLER COMP Height: 165cm Weight: 50kg BSA: 1.53 m2 Age: 5 1990,27Y Sex: FEMALE BP: 108/57 HR: 97 bpm Sonogrphr: Noel Alfonso [facility] Pat. Stat.:Inpatient Room: [place] [address] CPT: 44077 Reason for Study:LV function assessment Procedures:2D, M-mode, [...] Mass 2D Value 79.7 g LV Mass [id number] Value 52.1 g/m2 RA Volume Atrial Vaz [...] 2.46 cm Right Ventricle 2.53 cm Major [place] 6.37 cm MMODE TA Tricuspid Annul 2.11 cm ++++++++++++++++++++++++++++++++++++ WALL MOTION: ++++++++++++++++++++++++++++++++++++ RESTING WALL MOTION: All uribe are normal Wall Index = 1 Signed 04/09/2018 06:59 AM Adama Hicks M.D. us Lissy Godfrey ZIGZAG MACHINE OPERATOR ECHO Final R esult * CHLAMYDIA GC RNA (04/08/2018 3:00 PM CDT) SPECIMEN CERVIX 04/09/2018 10:39 AM CDT [facility] CHLAMYDIA RNA TMA NEGATIVE NEGATIVE 04/10/2018 2:32 PM CDT [facility] Comment: A NEGATIVE RESULT DOES NOT PRECLUDE THE PRESENCE OF A CT INFECTION BECAUSE RESULTS ARE DEPENDENT ON ADEQUATE SPECIMEN COLLECTION, ABSENCE OF INHIBITORS, AND SUFFICIENT rRNA TO BE DETECTED. N.GONORRHOEAE RNA TMA NEGATIVE NEGATIVE 04/10/2018 2:32 PM CDT [facility] Comment: A NEGATIVE RESULT DOES NOT PRECLUDE THE PRESENCE OF A GC INFECTION BECAUSE RESULTS ARE DEPENDENT ON ADEQUATE SPECIMEN COLLECTION, ABSENCE OF INHIBITORS, AND SUFFICIENT rRNA TO BE DETECTED. CERVIX UTERI STRUCTURE / Unknown 04/08/2018 3:00 PM CDT Saba Judge MD MICROBIOLOGY - GENERAL ORDERABL ES Final Result [facility] [address] [place] [address], [facility] [address] [place] [address], [phone] * TEST URINE (04/08/2018 2:25 PM CDT) PREG TEST NEGATIVE 04/08/2018 2:50 PM CDT [facility] URINE SPECIMEN FROM URETHRA / Unknown 04/08/2018 2:25 PM CDT us Lissy Godfrey APRN URINE ORDERABLES Final Result [facility] [address] [place] [address], [place] [phone] * (ABNORMAL) URINALYSIS (04/08/2018 2:25 PM CDT) COLOR (U) LIGHT YELLOW 04/08/2018 2:58 PM CDT [facility] TRANSPARENCY SLIGHTLY CLOUDY 04/08/2018 2:58 PM CDT [facility] SPECIFIC GRAVITY (U) 1.017 1.002 - 1.035 04/08/2018 2:58 PM CDT [facility] U PH 5.0 5 - 8 04/08/2018 2:58 PM CDT [facility] PROTEIN (U) NEGATIVE NEGATIVE 04/08/2018 2:58 PM CDT [facility] URINE GLUCOSE >=500(A) NEGATIVE MG/DL 04/08/2018 2:58 PM CDT [facility] KETONES MG/DL (U) 80(A) NEGATIVE 04/08/2018 2:58 PM CDT [facility] BILIRUBIN (U) NEGATIVE NEGATIVE 04/08/2018 2:58 PM CDT [facility] BLOOD (U) NEGATIVE NEGATIVE 04/08/2018 2:58 PM CDT [facility] NITRITES NEGATIVE NEGATIVE 04/08/2018 2:58 PM CDT [facility] UROBILINOGEN NORMAL 0 - 1 EU/DL 04/08/2018 2:58 PM CDT [facility] LEUKOCYTES (U) NEGATIVE NEGATIVE 04/08/2018 2:58 PM CDT [facility] RBC/HPF 3 0 - 3 /HPF 04/08/2018 2:58 PM CDT [facility] WBC/HPF 1 0 - 6 /HPF 04/08/2018 2:58 PM CDT [facility] BACTERIA (U) NONE /HPF 04/08/2018 2:58 PM CDT [facility] SQUAMOUS EPITHELIALS 20 04/08/2018 2:58 PM CDT [facility] URINE SPECIMEN OBTAINED BY CLEAN CATCH PROCEDURE / Unknown 04/08/2018 2:25 PM CDT Lissy Godfrey ZIGZAG MACHINE OPERATOR URINE ORDERABLES Final Result [facility] [address] [place] [address], [phone] * CULTURE URINE (04/08/2018 2:25 PM CDT) SPEC DESCRIPTION URINE CLEAN CATCH 04/08/2018 2:23 PM CDT [facility] SPECIAL REQUESTS NO SPECIAL REQUEST 04/08/2018 2:23 PM CDT [facility] CULTURE RESULT FEW CONTAMINANTS 03/23 8:41 PM CDT [facility] URINE SPECIMEN OBTAINED BY CLEAN CATCH PROCEDURE / Unknown 04/08/2018 2:25 PM CDT 04/08/2018 2:31 PM CDT us Lissy Godfrey ZIGZAG MACHINE OPERATOR MICROBIOLOGY - GENERAL ORDERABLES Final Result [facility] [address] [place] [address], [phone] * XR CHEST PORTABLE (04/08/2018 2:05 PM [...] PM Order Doctor: LISSY GODFREY Lissy Godfrey ZIGZAG MACHINE OPERATOR GENERAL IMAGING Final R esult * (ABNORMAL) POCT glucose (04/08/2018 1:52 PM CDT) GLUCOSE POC 274(H) 70 - 109 04/08/2018 5:11 PM CDT [facility] ORDERS INTERFACE 04/08/2018 1:52 PM CDT Anson Dominique DO POCT ORDERABLES - DEVICE Final Result [facility] ORDERS INTERFACE US * ECG 12 lead (04/08/2018 1:15 PM CDT) 04/08/2018 1:15 PM CDT Narrative [facility] - 04/08/2018 3:49 PM CDT ? [facility] ? [address], [place] ??[address] ? Test Date: ?2018-04-08 Pat Name: ? STEPH PARDEEP ? Department: ?? 1 ? Room: ? [id number] Gender: ? Female ? Content Assistant: ?? TERESA RM : ?1990 ? Requested By: LISSY MENDESWORTH Order Number: [id number] ? Reading MD: ?? Galen Hernandez ? Measurements Intervals ?[place] ? Rate: ? 99 ? P: ?57 LA: ? 135 ?QRS: ?68 QRSD: ? 73 ? T: ?44 QT: ? 348 ? QTc: ?447 ? Interpretive Statements SINUS RHYTHM Procedure Note Galen Hernandez MD - 04/08/2018 [facility] [address] [place] [address] Test Date: 2018-04-08 Pat Name: STEPH ROBERTO Department: 1 Room: [place] [address] Gender: Female Content Assistant: TERESA RM : 1990 Requested By: LISSY GODFREY Order Number: [id number] Reading MD: Galen Hernandez Measurements Intervals [place] Rate: 99 P: 57 LA: 135 QRS: 68 QRSD: 73 T: 44 QT: 348 QTc: 447 Interpretive Statements SINUS RHYTHM us Lissy Godfrey ZIGZAG MACHINE OPERATOR ECG ORDERABLES Final R esult Performing Organization Address City/[facility]/ZIP Co de Phone Number [facility] * MRSA PCR nares Screening (04/08/2018 1:13 PM CDT) SPECIMEN SOURCE RESPIRATORY, NOSE 04/08/2018 1:18 PM CDT [facility] MRSA BY PCR NASAL METHICILLIN RESISTANT STAPH AUREUS NOT DETECTED 04/09/2018 11:49 AM CDT [facility] NASAL STRUCTURE / Unknown 04/08/2018 1:13 PM CDT Anson Dominique DO MICROBIOLOGY - GENERAL ORDERABL ES Final Result Performing Organization Address [facility] Co de Phone Number [facility] [address] [place] [address], [phone] * (ABNORMAL) Blood gas, venous (04/08/2018 1:13 PM CDT) PH VENOUS 7.20(L) 7.32 - 7.42 04/08/2018 1:53 PM CDT [facility] PCO2 29.7(L) 41 - 51 MMHG 04/08/2018 1:53 PM CDT [facility] PO2 VENOUS 116.0(H) 25 - 40 MM HG 04/08/2018 1:53 PM CDT [facility] BICARB VENOUS 11.2(L) 24 - 28 MMOL/L 04/08/2018 1:53 PM CDT [facility] TCO2 12.1(L) 25 - 40 MMOL/L 04/08/2018 1:53 PM CDT [facility] BASE DEFICIT VENOUS 15.6(H) 0 - 2 MMOL/L 04/08/2018 1:53 PM CDT [facility] CARBONIC ACID VENOUS 0.9 MMOL/L 04/08/2018 1:53 PM CDT [facility] Blood specimen (specimen) 04/08/2018 1:13 PM CDT Lissy Godfrey ZIGZAG MACHINE OPERATOR LABORATORY Final R esult Performing Organization Address [facility] Co de Phone Number [facility] [address] [place] [address], [phone] * (ABNORMAL) BETA-HYDROXYBUTYRATE (04/08/2018 1:13 PM CDT) BETA-HYDROXYBU TYRATE 6.1(H) 0.0 - 0.3 MMOL/L 04/08/2018 1:51 PM CDT [facility] 04/08/2018 1:13 PM CDT Lissy Godfrey APRN LABORATORY Final R esult Performing Organization Address [facility] Co de Phone Number [facility] [address] [place] [address], [place] [phone] * THROMBOPLASTIN TIME PARTIAL,PTT (04/08/2018 1:13 PM CDT) PTT 24.6 22.0 - 35.0 SEC 04/08/2018 1:54 PM CDT [facility] 04/08/2018 1:13 PM CDT Lissy Godfrey APRN LABORATORY Final R esult Performing Organization Address [facility] Co de Phone Number [facility] [address] [place] [address], [place] [phone] * PROTHROMBIN TIME, VENOUS (04/08/2018 1:13 PM CDT) [facility] PROTIME 13.7 11.6 - 14.3 SEC 04/08/2018 1:53 PM CDT [facility] INR 1.1 0.9 - 1.1 04/08/2018 1:53 PM CDT [facility] 04/08/2018 1:13 PM CDT Lissy Godfrey APRN LABORATORY Final R [facility] Performing Organization Address [facility] Co de Phone Number [facility] [address] [place] [address], [phone] * (ABNORMAL) HEMOGLOBIN, GLYCATED (04/08/2018 12:41 PM CDT) [facility] HGB A1C 10.2(H) 4.2 - 6.3 % 04/09/2018 4:13 AM CDT [facility] ESTIMATED AVG GLUCOSE 246(H) 74 - 106 MG/DL 04/09/2018 4:13 AM CDT [facility] 04/08/2018 12:4 1 PM CDT Lissy Godfrey APRN LABORATORY Final R eslucina Performing Organization Address City/[facility] Co de Phone Number [facility] [address] [place] [address], [place] [phone] * CULTURE, BACTERIA, BLOOD (04/08/2018 12:41 PM CDT) [facility] SPEC DESCRIPTION BLOOD 04/08/2018 12:47 PM CDT [facility] SPECIAL REQUESTS NO SPECIAL REQUEST 04/08/2018 12:47 PM CDT [facility] CULTURE RESULT NO GROWTH 5 DAYS 04/13/2018 11:45 PM CDT [facility] BLOOD SPECIMEN OBTAINED FOR BLOOD CULTURE / Unknown 04/08/2018 12:41 PM CDT 04/08/2018 5:04 PM CDT Lissy Godfrey ZIGZAG MACHINE OPERATOR MICROBIOLOGY - GENERAL ORDERABLES Final Result Performing Organization Address [facility]/ZIP Co de Phone Number [facility] [address] [place] [address], [phone] * CULTURE, BACTERIA, BLOOD (04/08/2018 12:41 PM CDT) SPEC DESCRIPTION BLOOD 04/08/20 5:05 PM CDT [facility] SPECIAL REQUESTS BLOOD-AERO BIC BOTTLE ONLY 04/08/2018 5:05 PM CDT [facility] CULTURE RESULT NO GROWTH 5 DAYS 04/13/2018 11:45 PM CDT [facility] BLOOD SPECIMEN OBTAINED FOR BLOOD CULTURE / Unknown 04/08/2018 12:41 PM CDT 04/08/2018 5:05 PM CDT Lissy Godfrey ZIGZAG MACHINE OPERATOR MICROBIOLOGY - GENERAL ORDERABLES Final Result Performing Organization Address [facility] Co de Phone Number [facility] [address] [place] [address], [phone] * (ABNORMAL) CBC W/DIFF AUTOMATED (04/08/2018 12:41 PM CDT) WBC 8.0 4.0 - 10.8 x10'3/uL 04/08/2018 2:14 PM CDT [facility] RBC 4.09(L) 4.10 - 5.40 x10'6/uL 04/08/2018 2:14 PM CDT [facility] HGB 12.6 12.0 - 16.0 G/DL 04/08/2018 2:14 PM CDT [facility] HCT 37.2 36.0 - 47.0 % 04/08/2018 2:14 PM CDT [facility] MCV 91.0 78.0 - 100.0 FL 04/08/2018 2:14 PM CDT [facility] MCH 30.8 27.0 - 31.0 PG 04/08/2018 2:14 PM CDT [facility] MCHC 33.9 33.0 - 36.0 G/DL 04/08/2018 2:14 PM CDT [facility] RDW 11.9 11.5 - 14.5 % 04/08/2018 2:14 PM CDT [facility] PLT 210 150 - 350 x10'3/uL 04/08/2018 2:14 PM CDT [facility] MPV 10.3 7.4 - 10.4 FL 04/08/2018 2:14 PM CDT [facility] ABS. NEUTROPHILS TOTAL 5.55 1.60 - 8.30 x10'3/uL 04/08/2018 2:14 PM CDT [facility] ABS. LYMPHOCYTES 1.81 0.80 - 4.70 x10'3/uL 04/08/2018 2:14 PM CDT [facility] ABS. MONOCYTES 0.49 0.00 - 1.50 x10'3/uL 04/08/2018 2:14 PM CDT [facility] ABS. EOSINOPHILS 0.04 0.00 - 0.40 x10'3/uL 04/08/2018 2:14 PM CDT [facility] ABS. BASOPHILS 0.06 0.00 - 0.20 x10'3/uL 04/08/2018 2:14 PM CDT [facility] ABS. IMMATURE GRANULOCYTES 0.02 0.00 - 0.03 x10'3/uL 04/08/2018 2:14 PM CDT [facility] ABS. NUCLEATED RBC'S 0.00 0.0 x10'3/uL 04/08/2018 2:14 PM CDT [facility] 04/08/2018 12:4 1 PM CDT us Donaldson Armida Godfrey ZIGZAG MACHINE OPERATOR LABORATORY Final R esult Performing Organization Address [facility] Co de Phone Number [facility] [address] [place] [address], [phone] * LACTIC ACID (04/08/2018 12:41 PM CDT) Pathologist [facility] LACTIC ACID VENOUS 0.8 0.4 - 2.0 MMOL/L 04/08/2018 2:49 PM CDT [facility] 04/08/2018 12:4 1 PM CDT us Donaldson Armida Godfrey APRN LABORATORY Final R esult Performing Organization Address [facility] de Phone Number [facility] [address] [place] [address], [place] [phone] * (ABNORMAL) POCT glucose (04/08/2018 12:26 PM CDT) [facility] GLUCOSE POC 247(H) 70 - 109 04/08/2018 12:31 PM CDT [facility] ORDERS INTERFACE 04/08/2018 12:2 6 PM CDT Anson Dominique DO POCT ORDERABLES - DEVICE Final Result Performing Organization Address [facility] Co de Phone Number [facility] ORDERS INTERFACE US * (ABNORMAL) LIPID PANEL (04/08/2018 12:13 PM CDT) CHOLESTEROL 206 MG/DL 04/08/2018 2:19 PM CDT [facility] Comment:HIGH: > OR = 240 TRIGLYCERIDES 385 MG/DL 04/08/2018 2:19 PM CDT [facility] Comment:200-499 HIGH HDL 43(L) >49 MG/DL 04/08/2018 2:19 PM CDT [facility] LDL (CALCULATED) 86 MG/DL 04/08/20 18 2:19 PM CDT [facility] Comment:<100 OPTIMAL VLDL CALCULATION 77 MG/DL 04/08/20 18 2:19 PM CDT [facility] Comment:REFERENCE RANGE NOT ESTABLISHED CHOL/HDL RATIO 4.8 04/08/2018 2:19 PM CDT [facility] Comment:REFERENCE RANGE NOT ESTABLISHED LDL/HDL 2.0 04/08/2018 2:19 PM CDT [facility] Comment:REFERENCE RANGE NOT ESTABLISHED NON HDL CHOLESTEROL 163 MG/DL 04/08/2018 2:19 PM CDT [facility] Comment:REFERENCE RANGE NOT ESTABLISHED 04/08/2018 12:1 3 PM CDT Lissy Godfrey [facility] Final R critical [facility] hospital Performing Organization Address City/[facility] Co de Phone Number [facility] [address] [place] [address], [phone] * (ABNORMAL) LIPASE (04/08/2018 12:13 PM CDT) Pathologist [facility] LIPASE 60(L) 73 - 393 UNITS/L 04/08/2018 2:19 PM CDT [facility] 04/08/2018 12:1 3 PM CDT Lissy Godfrey [facility] Final R [facility] Performing Organization Address [facility] Co de Phone Number [facility] [address] [place] [address], [phone] * THYROID STIM HORMONE, TSH (04/08/2018 12:13 PM CDT) TSH 3.200 0.358 - 3.740 uIU/ML 04/08/2018 2:19 PM CDT [facility] 04/08/2018 12:1 3 PM CDT us Lissy Godfrey APRN LABORATORY Final R esult Performing Organization Address [facility] Co de Phone Number [facility] [address] [place] [address], [place] [phone] * PHOSPHORUS, INORGANIC PHOSPHATE (04/08/2018 12:13 PM CDT) PHOSPHORUS 2.6 2.5 - 4.9 MG/DL 04/08/2018 2:19 PM CDT [facility] 04/08/2018 12:1 3 PM CDT us Lissy Godfrey APRN LABORATORY Final R esult Performing Organization Address [facility] de Phone Number [facility] [address] [place] [address], [place] [phone] * MAGNESIUM (04/08/2018 12:13 PM CDT) MAGNESIUM 1.7 1.6 - 2.6 MG/DL 04/08/2018 2:19 PM CDT [facility] 04/08/2018 12:1 3 PM CDT us Lissy Godfrey APRN LABORATORY Final R esult Performing Organization Address [facility] Co de Phone Number [facility] [address] [place] [address], [place] [phone] * TROPONIN, QUANT (04/08/2018 12:13 PM CDT) TROPONIN I <0.015 <0.045 ng/mL. 04/08/2018 2:19 PM CDT [facility] 04/08/2018 12:1 3 PM CDT us Lissy Huffman Garett ZIGZAG MACHINE OPERATOR LABORATORY Final R esult Performing Organization Address City/[facility]/ZIP Co de Phone Number [facility] [address] [place] [address], [place] [phone] * CK (CPK) (04/08/2018 12:13 PM CDT) CPK 52 26 - 192 U/L 04/08/2018 2:19 PM CDT [facility] 04/08/2018 12:1 3 PM CDT Lissy Godfrey ZIGZAG MACHINE OPERATOR LABORATORY Final R esult Performing Organization Address [facility] Co de Phone Number [facility] [address] [place] [address], [place] [phone] * (ABNORMAL) COMPREHENSIVE METABOLIC PANEL (04/08/2018 12:13 PM CDT) SODIUM S/P/B 132(L) 136 - 145 MMOL/L 04/08/2018 2:19 PM CDT [facility] POTASSIUM S/P/B 4.4 3.5 - 5.1 MMOL/L 04/08/2018 2:19 PM CDT [facility] CHLORIDE S/P/B 104 98 - 107 MMOL/L 04/08/2018 2:19 PM CDT [facility] CO2 12.3(L) 21.0 - 32.0 MMOL/L 04/08/2018 2:19 PM CDT [facility] GLUCOSE 264(H) 74 - 106 MG/DL 04/08/2018 2:19 PM CDT [facility] BUN 16 7 - 18 MG/DL 04/08/2018 2:19 PM CDT [facility] CREATININE S/P/B 0.95 0.55 - 1.02 MG/DL 04/08/2018 2:19 PM CDT [facility] CALCIUM S/P/B 7.8(L) 8.4 - 10.5 MG/DL 04/08/2018 2:19 PM T [facility] BILIRUBIN TOTAL S/P/B 0.6 0.2 - [...] ML/MIN/1. 73 M2 04/08/2018 2:19 PM CDT [facility] Comment: THE ESTIMATED GFR IS CALCULATED [...] 12:1 3 PM CDT us Lissy Godfrey ZIGZAG MACHINE OPERATOR LABORATORY Final R esult [facility] [address] [place] [address], [phone] * Cytopath Cerv/Vag Thin Layer (04/08/2018 6:52 AM CDT) THIN PREP PAP ? [facility] ?[address] ?[place] [address] ? Department of Pathology ? Pathology Report ? CERVICAL/VAGINAL PAP SMEAR REPORT Name: STEPH ROBERTO ? Age: 5 1990 (Age: 27) ? Location: [address] Sex: F ?Collected Date: 04/08/2018 Hospital #: [id number] ?Date Received: 04/11/2018 Date Reported: 04/12/2018 Provider: SABA JUDGE ?[facility] INTERPRETATION CERVICAL/ENDOCERVI KENN, PAP TEST: ? SATISFACTORY [...] is not effective in detecting cervical adenocarcinoma. [facility] 04/08/2018 6:52 AM CDT 04/11/2018 6:52 AM CDT Comment:CERVICAL/ENDOCERVICA L us Saba Judge MD PATHOLOGY/CYTOLOGY ORDERABLES F inal Result [facility] [address] [place] [address], documented in this encounter Visit Diagnoses Diagnosis Diabetic ketoacidosis ([facility])- Primary Type II or unspecified type diabetes mellitus with ketoacidosis, not stated as uncontrolled High anion gap metabolic acidosis Acidosis Type 1 diabetes mellitus ([facility]) Type I (juvenile type) diabetes mellitus without [...] 1 dose, On Sun04/08/18 at 1415 [facility] 04/08/2018 2:59 PM CDT 1,000 mLs lactated ringers bolus infusion 2,000 mL 2,000 mL, Intravenous, Administer over 15 Minutes, Once, 1 dose, On Sun04/08/18 at 1845 [facility] 04/08/2018 6:39 PM CDT 2,000 mLs magnesium oxide (MAG-OX) tablet 400 mg 400 mg, Oral, Daily, First dose on Sun04/10/18 at 1000, Until Discontinued Given 04/11/2018 7:59 AM CDT 400 mg Given 04/10/2018 11:00 AM CDT 400 mg magnesium sulfate IVPB 2 g 2 g, Intravenous, at 25 mL/hr, Once, 1 dose, On Sun04/08/18 at 1730 [facility] 04/08/2018 6:43 PM CDT 2 g 25 mL/hr magnesium sulfate IVPB 2 g 2 g, Intravenous, at 25 mL/hr, Once, 1 dose, On Sun04/09/18 at 0815 [facility] 04/09/2018 8:21 AM CDT 2 g 25 [...] Harjinder Olmstead RN)[phone] (Not Given - Provider: Harjinder Olmstead RN - Reason: Other - Comment: [...] Discontinued 2128 (Given - Provider: Marge Leon, RYAN) 2034 (Given - Provider: Sarah Guzman, RYAN) [...] RN) 0342 (Given - Provider: Sarah Guzman, RYAN)0964 (Given - Provider: Milli Bean RN) iopamidol [...]
--- OUTSIDE RECORDS SUMMARY | 2024-08-03 02:11 | XMS_ITS | Encounter Summary ---
Author Organization [facility] Address [address] [facility] [place] [address] [place] [address] Care Team Providers Care Business Info Consultant Name Role Phone Unavailable Primary Care Provider Unavailabl e Encounter Details Date Type Department Care Team (Late st Contact Info) Description 04/22/2017 Abstract [place] [facility] [address] [facility] [address] [place] [address] Rudy Martin MD [address] [place] [address] Social History Tobacco Use Types [...] - 99 MG/DL 04/23/2017 7:10 AM CDT [facility] ORDERS INTERFACE 04/22/2017 12:0 5 PM CDT 04/23/2017 7:10 AM CDT us Generic Conversion Md MIR LABORATORY Final R esult Performing Organization Address City/[facility]/ZIP Co de Phone Number [facility] ORDERS INTERFACE US * (ABNORMAL) LIPASE (04/22/2017 10:00 AM CDT) Pathologist [facility] LIPASE 7(L) 8 - 78 UNITS/L 04/22/2017 10:50 AM CDT [facility] SERUM OR PLASMA SPECIMEN / Unknown 04/22/2017 10:00 AM CDT 04/22/2017 10:25 AM CDT us Generic Conversion Md MIR LABORATORY Final R esult [facility] [place] [address], * (ABNORMAL) COMPREHENSIVE METABOLIC PANEL (04/22/2017 10:00 AM CDT) GLUCOSE 328(H) 70 - 99 MG/DL 04/22/2017 10:50 AM CDT [facility] BUN 18 7 - 19 MG/DL 04/22/2017 10:50 AM CDT [facility] CREATININE S/P/B 1.15(H) 0.57 - 1.11 MG/DL 04/22/2017 10:50 AM CDT [facility] SODIUM S/P/B 132(L) 136 - 145 MMOL/L 04/22/2017 10:50 AM CDT [facility] POTASSIUM S/P/B 4.4 3.5 - 5.1 MMOL/L 04/22/2017 10:50 AM CDT [facility] CHLORIDE S/P/B 94(L) 98 - 107 MMOL/L 04/22/2017 10:50 AM CDT [facility] CO2 17.0(L) 22.0 - 29.0 MMOL/L 04/22/2017 10:50 AM CDT [facility] CALCIUM S/P/B 10.4(H) 8.4 - 10.2 MG/DL 04/22/2017 10:50 AM CDT [facility] BILIRUBIN TOTAL S/P/B 1.1 0.2 - 1.2 MG/DL 04/22/2017 10:50 AM CDT [facility] TOTAL PROTEIN S/P/B 9.2(H) 6.0 - 8.3 G/DL 04/22/2017 10:50 AM CDT [facility] ALBUMIN S/P/B 4.9 3.5 - 5.2 G/DL 04/22/2017 10:50 AM CDT [facility] AST 19 5 - 34 U/L 04/22/2017 10:50 AM CDT [facility] ALT 24 0 - 55 U/L 04/22/2017 10:50 AM CDT [facility] ALKALINE PHOSPHATASE S/P/B 122 50 - 136 U/L 04/22/2017 10:50 AM CDT [facility] OSMOLALITY (CALC) 279 275 - 300 MOSM/KG 04/22/2017 10:50 AM CDT [facility] A/G RATIO 1.1 1.0 - 1.6 RATIO 04/22/2017 10:50 AM CDT [facility] BUN CREATININE RATIO 15.7 12 - 20 04/22/2017 10:50 AM CDT [facility] ANION GAP 21.0(H) 7 - 16 MMOL/L 04/22/2017 10:50 AM CDT [facility] EGFR NON-AFR. AMER. >60 >60 ML/MIN/1.7 3 M2 04/22/2017 10:50 AM CDT [facility] EGFR AFR. AMER. >60 >60 ML/MIN/1.7 3 M2 04/22/2017 10:50 AM CDT [facility] 04/22/2017 10:0 0 AM CDT 04/22/2017 10:25 AM CDT us Generic Conversion Md MIR LABORATORY Final R esult [facility] [address] [place] [address], * (ABNORMAL) CBC W/DIFF AUTOMATED (04/22/2017 10:00 AM CDT) WBC 7.4 4.5 - 10.8 x10'3/uL 04/22/2017 10:27 AM CDT [facility] RBC 4.91 4.10 - 5.40 x10'6/uL 04/22/2017 10:27 AM CDT [facility] HGB 14.9 12.0 - 16.0 G/DL 04/22/2017 10:27 AM CDT [facility] HCT 42.4 36.0 - 47.0 % 04/22/2017 10:27 AM CDT [facility] MCV 86.4 78.0 - 100.0 FL 04/22/2017 10:27 AM CDT [facility] MCH 30.3 27.0 - 31.0 PG 04/22/2017 10:27 AM CDT [facility] MCHC 35.1 33.0 - 36.0 G/DL 04/22/2017 10:27 AM CDT [facility] RDW 12.1 11.5 - 14.5 % 04/22/2017 10:27 AM CDT [facility] PLT 290 150 - 350 x10'3/uL 04/22/2017 10:27 AM CDT [facility] MPV 10.2 7.4 - 10.4 FL 04/22/2017 10:27 AM CDT [facility] SEG NEUTROPHILS 54.4 % 7 10:27 AM CDT [facility] LYMPHOCYTES 29.3 % 04/22/2017 10:27 AM CDT [facility] MONOCYTES 6.9 % 04/22/2017 10:27 AM CDT [facility] EOSINOPHILS 8.1 % 04/22/2017 10:27 AM CDT [facility] BASOPHILS 1.2 % 04/22/2017 10:27 AM T [facility] IMMATURE GRANS % 0.1 % 04/22/20 17 10:27 AM CDT [facility] NRBC 0.0 % 04/22/2017 10:27 AM T [facility] ABS. NEUTROPHILS 4.02 1.60 - 8.30 x10'3/uL 04/22/2017 10:27 AM T [facility] ABS. LYMPHOCYTES 2.17 0.80 - 4.70 x10'3/uL 04/22/2017 10:27 AM T [facility] ABS. MONOCYTES 0.51 0.00 - 1.50 x10'3/uL 04/22/2017 10:27 AM T [facility] ABS. EOSINOPHILS 0.60(H) 0.00 - 0.40 x10'3/uL 04/22/2017 10:27 AM T [facility] ABS. BASOPHILS 0.09 0.00 - 0.20 x10'3/uL 04/22/2017 10:27 AM T [facility] ABS. IMMATURE GRANULOCYTES 0.01 0.00 - 0.03 x10'3/uL 04/22/2017 10:27 AM T [facility] ABS. NUCLEATED RBC'S 0.00 0.00 x10'3/uL 04/22/2017 10:27 AM T [facility] OTHER (type in comments) 04/22/2017 10:00 AM CDT 04/22/2017 10:25 AM CDT Comment:WHOLE BLOOD SAMPLE us Generic Conversion Md MIR LABORATORY Final R esult Performing Organization Address [facility]/ZIP Co de Phone Number [facility] [address] [place] [id number], * (ABNORMAL) BETA-HYDROXYBUTYRATE (04/22/2017 10:00 AM CDT) BETA-HYDROXYBU TYRATE 4.9(H) 0.0 - 0.3 MMOL/L 04/22/2017 10:26 AM CDT [facility] SERUM OR PLASMA SPECIMEN / Unknown 04/22/2017 10:00 AM CDT 04/22/2017 10:25 AM CDT us Generic Conversion Md MIR LABORATORY Final R theo Performing Organization Address [facility]/ZIP Co de Phone Number [facility] [address] [place] [address], * (ABNORMAL) URINALYSIS WI REFLEX TO CULTURE (04/22/2017 10:00 AM CDT) COLOR (U) YELLOW 04/22/2017 10:31 AM CDT [facility] TRANSPARENCY CLEAR 04/22/2017 10:31 AM CDT [facility] SPECIFIC GRAVITY (U) 1.030(H) 1.000 - 1.025 04/22/2017 10:31 AM CDT [facility] Comment:EQUAL TO OR GREATER THAN U PH 6.0 5.0 - 8.0 04/22/2017 10:31 AM CDT [facility] LEUKOCYTES (U) NEGATIVE NEGATIVE 04/22/2017 10:31 AM CDT [facility] NITRITES NEGATIVE NEGATIVE 04/22/2017 10:31 AM CDT [facility] PROTEIN (U) 1+(A) NEGATIVE 04/22/2017 10:31 AM CDT [facility] URINE GLUCOSE 2+(A) NEGATIVE 04/22/2017 10:31 AM CDT [facility] KETONES MG/DL (U) 3+(A) NEGATIVE 04/22/2017 10:31 AM CDT [facility] UROBILINOGEN 0.2 <1.0 EU/DL 04/22/2017 10:31 AM CDT [facility] BLOOD (U) NEGATIVE NEGATIVE 04/22/2017 10:31 AM CDT [facility] WBC/HPF 0-5 0 - 5 /HPF 04/22/2017 10:31 AM CDT [facility] RBC/HPF 0-5 0 - 5 /HPF 04/22/2017 10:31 AM CDT [facility] EPI/HPF MANY /LPF 04/22/2017 10:31 AM CDT [facility] MUCUS PRESENT 04/22/2017 10:31 AM CDT [facility] BILIRUBIN (U) NEGATIVE NEGATIVE 04/22/2017 10:31 AM CDT [facility] CULTURE & SENSITIVITY INDICATED? NOT INDICATED 04/22/2017 10:34 AM CDT [facility] OTHER (type in comments) 04/22/2017 10:00 AM CDT 04/22/2017 10:17 AM CDT Comment:URINE SPECIMEN~URINE SPECIMEN us Generic Conversion Md MIR URINE ORDERABLES Final Result [facility] [address] [place] [place] [address], * TEST URINE (04/22/2017 10:00 AM CDT) PREG TEST NEGATIVE 04/22/2017 10:29 AM CDT [facility] SPECIFIC GRAVITY (U) >1.030 04/22/2017 10:29 AM CDT [facility] URINE SPECIMEN / Unknown 04/22/2017 10:00 AM CDT 04/22/2017 10:17 AM CDT us Generic Conversion Md MIR URINE ORDERABLES Final Result [facility] [place] [address], * (ABNORMAL) GLUCOSE BLOOD, QNT (04/22/2017 9:50 AM CDT) GLUCOSE POC 276(H) 70 - 99 MG/DL 04/22/2017 9:52 AM CDT [facility] ORDERS INTERFACE 04/22/2017 9:50 AM CDT 04/22/2017 9:51 AM CDT us Generic Conversion Md MIR LABORATORY Final R esult [facility] ORDERS INTERFACE US documented in this encounter Visit Diagnoses Diagnosis Noninfective gastroenteritis and colitis Other and unspecified noninfectious gastroenteritis and colitis documented in this encounter
--- OUTSIDE RECORDS SUMMARY | 2024-08-03 02:11 | XMS_ITS | Encounter Summary ---
Author Organization [facility] Address [address] [facility] [place] [address] [place] [address] Care Team Providers Care End User Support Specialist Name Role Phone Unavailable Primary Care Provider Unavailabl e Encounter Details Date Type Department Care Team (Late st Contact Info) Description 08/29/2017 Abstract [place] [facility] [address] [place] [address] Arnoldo Gale MD [address] [place] [address] Social History Tobacco Use Types Packs/Day Years [...] BLOOD, QNT Routine 08/29/2017 4: 41 PM MOBILE APPLICATION ENGINEER BLOOD GAS, VENOUS STAT 08/29/2017 3:4 0 PM MOBILE APPLICATION ENGINEER COMPREHENSIVE METABOLIC PANEL STAT 08/29/2017 3:40 PM MOBILE APPLICATION ENGINEER LACTIC ACID STAT 08/29/2017 3:40 PM MOBILE APPLICATION ENGINEER CULTURE, BACTERIA, BLOOD STAT 08/29/2017 3:40 PM MOBILE APPLICATION ENGINEER CULTURE, BACTERIA, BLOOD STAT 08/29/2017 3:40 PM MOBILE APPLICATION ENGINEER CBC W/DIFF AUTOMATED STAT 08/29/2017 3:40 PM MOBILE APPLICATION ENGINEER PHOSPHORUS, INORGANIC PHOSPHATE STAT 08/29/2017 3:40 PM MOBILE APPLICATION ENGINEER MAGNESIUM STAT 08/29/2017 3:40 PM MOBILE APPLICATION ENGINEER documented in this encounter Results * (ABNORMAL) GLUCOSE BLOOD, QNT (08/29/2017 4:41 PM MOBILE APPLICATION ENGINEER) [facility] GLUCOSE POC 243(H) 70 - 99 MG/DL 08/29/2017 4:42 PM MOBILE APPLICATION ENGINEER [facility] ORDERS INTERFACE 08/29/2017 4:41 PM MOBILE APPLICATION ENGINEER 08/29/2017 4:42 PM MOBILE APPLICATION ENGINEER us Generic Conversion Md MIR LABORATORY Final R esult [facility] ORDERS INTERFACE US * CULTURE, BACTERIA, BLOOD (08/29/2017 3:40 PM MOBILE APPLICATION ENGINEER) Pathologist [facility] SPEC DESCRIPTION BLOOD 08/29/2017 3:47 PM MOBILE APPLICATION ENGINEER [facility] SPECIAL REQUESTS NO SPECIAL REQUEST 08/29/2017 3:47 PM MOBILE APPLICATION ENGINEER [facility] CULTURE RESULT NO GROWTH 5 DAYS 09/03/2017 5:46 AM MOBILE APPLICATION ENGINEER [facility] BLOOD SPECIMEN OBTAINED FOR BLOOD CULTURE / Unknown 08/29/2017 3:40 PM MOBILE APPLICATION ENGINEER 08/29/2017 3:51 PM MOBILE APPLICATION ENGINEER us Generic Conversion Md MIR MICROBIOLOGY - GENERAL ORDERABLES Final Result [facility] [address] [place] [address], * CULTURE, BACTERIA, BLOOD (08/29/2017 3:40 PM MOBILE APPLICATION ENGINEER) SPEC DESCRIPTION BLOOD 08/29/2017 3:47 PM MOBILE APPLICATION ENGINEER [facility] SPECIAL REQUESTS NO SPECIAL REQUEST 08/29/2017 3:47 PM MOBILE APPLICATION ENGINEER [facility] CULTURE RESULT NO GROWTH 5 DAYS 09/03/2017 5:[address] [facility] BLOOD SPECIMEN OBTAINED FOR BLOOD CULTURE / Unknown 08/29/2017 3:40 PM MOBILE APPLICATION ENGINEER 08/29/2017 3:50 PM MOBILE APPLICATION ENGINEER us Generic Conversion Md MIR MICROBIOLOGY - GENERAL ORDERABLES Final Result [facility] [employer] [place] [address], * (ABNORMAL) Blood gas, venous (08/29/2017 3:40 PM MOBILE APPLICATION ENGINEER) O2 SAT VENOUS 92(H) 40 - 70 % 08/29/2017 3:[address] [facility] PH VENOUS 7.35 7.35 - 7.45 08/29/2017 3:[address] [facility] PCO2 42.8 41.0 - 51.0 MMHG 08/29/2017 3:[address] [facility] PO2 VENOUS 66.0(H) 20.0 - 40.0 MM HG 08/29/2017 3:[address] [facility] BASE DEFICIT VENOUS 2.0 MMOL/L 08/29/2017 3:[address] [facility] BICARB VENOUS 23.1 22.0 - 29.0 MMOL/L 08/29/2017 3:[address] [facility] TCO2 24.4(L) 25.0 - 29.0 MMOL/L 08/29/2017 3:[address] [facility] LITER FLOW ROOM AIR 08/29/2017 3:[address] [facility] 08/29/2017 3:40 PM MOBILE APPLICATION ENGINEER 08/29/2017 3:48 PM MOBILE APPLICATION ENGINEER us Generic Conversion Md MIR LABORATORY Final R esult [facility] [address] [place] [address], * PHOSPHORUS, INORGANIC PHOSPHATE (08/29/2017 3:40 PM MOBILE APPLICATION ENGINEER) PHOSPHORUS 2.6 2.5 - 4.9 MG/DL 08/29/2017 4:12 PM MOBILE APPLICATION ENGINEER [facility] SERUM OR PLASMA SPECIMEN / Unknown 08/29/2017 3:40 PM MOBILE APPLICATION ENGINEER 08/29/2017 3:48 PM MOBILE APPLICATION ENGINEER us Generic Conversion Md MIR LABORATORY Final R esult Performing Organization Address City/[facility]/[place] [address], * MAGNESIUM (08/29/2017 3:40 PM MOBILE APPLICATION ENGINEER) MAGNESIUM 1.8 1.6 - 2.6 MG/DL 08/29/2017 4:12 PM MOBILE APPLICATION ENGINEER [facility] SERUM OR PLASMA SPECIMEN / Unknown 08/29/2017 3:40 PM MOBILE APPLICATION ENGINEER 08/29/2017 3:48 PM MOBILE APPLICATION ENGINEER us Generic Conversion Md MIR LABORATORY Final R eslucina Performing Organization Address City/[facility]/ZIP Co de Phone Number [facility] [address] [place] [address], [place] [phone] * LACTIC ACID (08/29/2017 3:40 PM MOBILE APPLICATION ENGINEER) LACTIC ACID VENOUS 1.2 0.5 - 2.2 MMOL/L 08/29/2017 4:06 PM MOBILE APPLICATION ENGINEER [facility] PLASMA SPECIMEN / Unknown 08/29/2017 3:40 PM MOBILE APPLICATION ENGINEER 08/29/2017 3:48 PM MOBILE APPLICATION ENGINEER us Generic Conversion Md MIR LABORATORY Final R theo Performing Organization Address [facility]/ZIP Co de Phone Number [facility] [address] [place] [address], [place] [phone] * (ABNORMAL) COMPREHENSIVE METABOLIC PANEL (08/29/2017 3:40 PM MOBILE APPLICATION ENGINEER) GLUCOSE 311(H) 70 - 99 MG/DL 08/29/2017 4:[address] [facility] BUN 15 7 - 19 MG/DL 08/29/2017 4:[address] [facility] CREATININE S/P/B 0.85 0.57 - 1.11 MG/DL 08/29/2017 4:[address] [facility] SODIUM S/P/B 137 136 - 145 MMOL/L 08/29/2017 4:[address] [facility] POTASSIUM S/P/B 4.1 3.5 - 5.1 MMOL/L 08/29/2017 4:[address] [facility] CHLORIDE S/P/B 101 98 - 107 MMOL/L 08/29/2017 4:[address] [facility] CO2 21.0(L) 22.0 - 29.0 MMOL/L 08/29/2017 4:[address] [facility] CALCIUM S/P/B 9.2 8.4 - 10.2 MG/DL 08/29/2017 4:[address] [facility] BILIRUBIN TOTAL S/P/B 1.0 0.2 - 1.2 MG/DL 08/29/2017 4:[address] [facility] TOTAL PROTEIN S/P/B 7.6 6.0 - 8.3 G/DL 08/29/2017 4:[address] [facility] ALBUMIN S/P/B 4.2 3.5 - 5.2 G/DL 08/29/2017 4:[address] [facility] AST 18 5 - 34 U/L 08/29/2017 4:[address] [facility] ALT 14 0 - 55 U/L 08/29/2017 4:[address] [facility] ALKALINE PHOSPHATASE S/P/B 72 50 - 136 U/L 08/29/2017 4:[address] [facility] OSMOLALITY (CALC) 286 275 - 300 MOSM/KG 08/29/2017 4:[address] [facility] A/G RATIO 1.2 1.0 - 1.6 RATIO 08/29/2017 4:12 PM MOBILE APPLICATION ENGINEER [facility] BUN CREATININE RATIO 17.6 12 - 20 08/29/2017 4:[address] [facility] ANION GAP 15.0 7 - 16 MMOL/L 08/29/2017 4:[address] [facility] EGFR NON-AFR. AMER. >60 >60 ML/MIN/1.7 3 M2 08/29/2017 4:12 PM MOBILE APPLICATION ENGINEER [facility] EGFR AFR. AMER. >60 >60 ML/MIN/1.7 3 M2 08/29/2017 4:[address] [facility] 08/29/2017 3:40 PM MOBILE APPLICATION ENGINEER 08/29/2017 3:48 PM MOBILE APPLICATION ENGINEER us Generic Conversion Md MIR LABORATORY Final R esult [facility] [place] [address], * CBC W/DIFF AUTOMATED (08/29/2017 3:40 PM MOBILE APPLICATION ENGINEER) WBC 8.8 4.5 - 10.8 x10'3/uL 08/29/2017 3:[address] [facility] RBC 4.49 4.10 - 5.40 x10'6/uL 08/29/2017 3:[address] [facility] HGB 13.7 12.0 - 16.0 G/DL 08/29/2017 3:[address] [facility] HCT 39.7 36.0 - 47.0 % 08/29/2017 3:[address] [facility] MCV 88.4 78.0 - 100.0 FL 08/29/2017 3:[address] [facility] MCH 30.5 27.0 - 31.0 PG 08/29/2017 3:[address] [facility] MCHC 34.5 33.0 - 36.0 G/DL 08/29/2017 3:[address] [facility] RDW 12.1 11.5 - 14.5 % 08/29/2017 3:[address] [facility] PLT 250 150 - 350 x10'3/uL 08/29/2017 3:[address] [facility] MPV 10.0 7.4 - 10.4 FL 08/29/2017 3:[address] [facility] SEG NEUTROPHILS 72.9 % 8 3:[address] [facility] LYMPHOCYTES 18.6 % 08/29/2017 3:[address] [facility] MONOCYTES 5.2 % 08/29/2017 3:[address] [facility] EOSINOPHILS 2.3 % 08/29/2017 3:[address] [facility] BASOPHILS 0.8 % 08/29/2017 3:[address] [facility] IMMATURE GRANS % 0.2 % 08/29/19 18 3:[address] [facility] NRBC 0.0 % 08/29/2017 3:[address] [facility] ABS. NEUTROPHILS 6.45 1.60 - 8.30 x10'3/uL 08/29/2017 3:[address] [facility] ABS. LYMPHOCYTES 1.64 0.80 - 4.70 x10'3/uL 08/29/2017 3:[address] [facility] ABS. MONOCYTES 0.46 0.00 - 1.50 x10'3/uL 08/29/2017 3:[address] [facility] ABS. EOSINOPHILS 0.20 0.00 - 0.40 x10'3/uL 08/29/2017 3:[address] [facility] ABS. BASOPHILS 0.07 0.00 - 0.20 x10'3/uL 08/29/2017 3:[address] [facility] ABS. IMMATURE GRANULOCYTES 0.02 0.00 - 0.03 x10'3/uL 08/29/2017 3:[address] [facility] ABS. NUCLEATED RBC'S 0.00 0.00 x10'3/uL 08/29/2017 3:55 PM MOBILE APPLICATION ENGINEER [facility] OTHER (type in comments) 08/29/2017 3:40 PM MOBILE APPLICATION ENGINEER 08/29/2017 3:48 PM MOBILE APPLICATION ENGINEER Comment:WHOLE BLOOD SAMPLE us Generic Conversion Md MIR LABORATORY Final R esult [facility] [address] [place] [address], documented in this encounter Visit Diagnoses Diagnosis Vomiting Vomiting alone documented in this encounter
--- OUTSIDE RECORDS SUMMARY | 2024-08-03 02:11 | XMS_ITS | Encounter Summary ---
Author Organization [facility] Address [facility] [facility] [place] [address] [place] [address] Care Team Providers Care Billboard Poster Helper Name Role Phone Unavailable Primary Care Provider Unavailabl e Encounter Details Date Type Department Care Team (Late st Contact Info) Description 10/04/2015 [facility] [place] [facility] [address] [place] [address] Social History Tobacco Use Types [...]
--- OUTSIDE RECORDS SUMMARY | 2024-08-03 02:11 | XMS_ITS | Encounter Summary ---
Author Organization [facility] Address [facility] [facility] [place] [address] [place] [address] Care Team Providers Care Heat Treater Head Name Role Phone Unavailable Primary Care Provider Unavailabl e Encounter Details Date Type Department Care Team (Late st Contact Info) Description 01/24/2018 Abstract [place] [facility] [address] [place] [address] Ye Vincent MD [address] [facility] [address] [place], [place] [id number] Social History Tobacco Use Types Packs/Day Years [...]
--- OUTSIDE RECORDS SUMMARY | 2024-08-03 02:11 | XMS_ITS | Encounter Summary ---
Author Organization [facility] Address [address] [place] [address] [place] [address] Care Team Providers Care Smokehouse Operator Name Role Phone Unavailable Primary Care Provider Unavailabl e Encounter Details Date Type Department Care Team (Late st Contact Info) Description 09/15/2017 Abstract [facility] [address] [place] [address] [place] [address] [place] [address] Social History Tobacco Use Types [...] BLOOD, QNT Routine 09/19/2017 9: 15 AM FISH NET MAKER GLUCOSE BLOOD, QNT Routine 09/19/2017 5: 57 AM FISH NET MAKER GLUCOSE BLOOD, QNT Routine 09/18/2017 10 :46 PM FISH NET MAKER GLUCOSE BLOOD, QNT Routine 09/18/2017 8: 04 PM FISH NET MAKER GLUCOSE BLOOD, QNT Routine 09/18/2017 7: 09 PM FISH NET MAKER GLUCOSE BLOOD, QNT Routine 09/18/2017 6: 56 PM FISH NET MAKER GLUCOSE BLOOD, QNT Routine 09/18/2017 6: 41 PM FISH NET MAKER GLUCOSE BLOOD, QNT Routine 09/18/2017 4: 13 PM FISH NET MAKER GLUCOSE BLOOD, QNT Routine 09/18/2017 12 :17 PM FISH NET MAKER GLUCOSE BLOOD, QNT Routine 09/18/2017 11 :43 AM FISH NET MAKER GLUCOSE BLOOD, QNT Routine 09/18/2017 10 :59 AM FISH NET MAKER BASIC METABOLIC PANEL Routine 09/18/2017 5:00 AM FISH NET MAKER CBC W/DIFF AUTOMATED Routine 09/18/2017 5:00 AM FISH [employer] MAKER GLUCOSE BLOOD, QNT Routine 09/18/2017 5: 00 AM FISH NET MAKER GLUCOSE BLOOD, QNT Routine 09/17/2017 8: 09 PM FISH NET MAKER GLUCOSE BLOOD, QNT Routine 09/17/2017 4: 22 PM FISH NET MAKER GLUCOSE BLOOD, QNT Routine 09/17/2017 11 :58 AM FISH NET MAKER BASIC METABOLIC PANEL Routine 09/17/2017 9:42 AM FISH NET MAKER CBC W/DIFF AUTOMATED Routine 09/17/2017 9:42 AM FISH NET MAKER GLUCOSE BLOOD, QNT Routine 09/17/2017 5: 58 AM FISH NET MAKER GLUCOSE BLOOD, QNT Routine 09/16/2017 9: 10 PM FISH NET MAKER GLUCOSE BLOOD, QNT Routine 09/16/2017 4: 43 PM FISH NET MAKER GLUCOSE BLOOD, QNT Routine 09/16/2017 11 :52 AM FISH NET MAKER BASIC METABOLIC PANEL Routine 09/16/2017 5:45 AM FISH NET MAKER CBC W/DIFF AUTOMATED Routine 09/16/2017 5:45 AM FISH NET MAKER GLUCOSE BLOOD, QNT Routine 09/16/2017 3: 15 AM FISH NET MAKER GLUCOSE BLOOD, QNT Routine 09/16/2017 2: 38 AM FISH NET MAKER URINALYSIS WI REFLEX TO CULTURE STAT 09/15/2017 7:00 PM FISH NET MAKER TEST URINE STAT 09/15/2017 7:00 PM FISH NET MAKER INFLUENZA A & B STAT 09/15/2017 6:34 PM FISH NET MAKER CULTURE, BACTERIA, BLOOD STAT 09/15/2017 5:42 PM FISH NET MAKER COMPREHENSIVE METABOLIC PANEL STAT 09/15/2017 5:35 PM FISH NET MAKER LACTIC ACID STAT 09/15/2017 5:35 PM FISH NET MAKER CULTURE, BACTERIA, BLOOD STAT 09/15/2017 5:35 PM FISH NET MAKER CBC W/DIFF AUTOMATED STAT 09/15/2017 5:35 PM FISH NET MAKER LIPASE STAT 09/15/2017 5:35 PM FISH NET MAKER documented in this encounter Results * GLUCOSE BLOOD, QNT (09/19/2017 9:15 AM FISH NET MAKER) [facility] GLUCOSE POC 89 70 - 99 MG/DL 09/19/2017 9:22 AM FISH NET MAKER [facility] ORDERS INTERFACE 09/19/2017 9:15 AM FISH NET MAKER 09/19/2017 9:22 AM FISH NET MAKER us Generic Conversion Md M[facility] LABORAT[facility] Final R esult [facility] ORDERS INTERFACE US * (ABNORMAL) GLUCOSE BLOOD, QNT (09/19/2017 5:57 AM FISH NET MAKER) GLUCOSE POC 62(L) 70 - 99 MG/DL 09/19/2017 6:00 AM FISH NET MAKER [facility] ORDERS INTERFACE 09/19/2017 5:57 AM FISH NET MAKER 09/19/2017 6:00 AM FISH NET MAKER us Generic Conversion Md [facility] LABORAT[facility] Final R esult Performing Organization Address [facility] Co de Phone Number [facility] ORDERS INTERFACE US * (ABNORMAL) GLUCOSE BLOOD, QNT (09/18/2017 10:46 PM FISH NET MAKER) GLUCOSE POC 126(H) 70 - 99 MG/DL 09/18/2017 10:48 PM FISH NET MAKER [facility] ORDERS INTERFACE 09/18/2017 10:4 6 PM FISH NET MAKER 09/18/2017 10:48 PM FISH NET MAKER us Generic Conversion Md M[facility] LABORAT[facility] Final R esult Performing Organization Address [facility] Co de Phone Number [facility] ORDERS INTERFACE US * GLUCOSE BLOOD, QNT (09/18/2017 8:04 PM FISH NET MAKER) GLUCOSE POC 83 70 - 99 MG/DL 09/18/2017 8:08 PM FISH NET MAKER [facility] ORDERS INTERFACE 09/18/2017 8:04 PM FISH NET MAKER 09/18/2017 8:08 PM FISH NET MAKER us Generic Conversion Md M[facility] LABORAT[facility] Final R esult Performing Organization Address City/[facility]/ZIP Co de Phone Number [facility] ORDERS INTERFACE US * (ABNORMAL) GLUCOSE BLOOD, QNT (09/18/2017 7:09 PM FISH NET MAKER) GLUCOSE POC 59(L) 70 - 99 MG/DL 09/18/2017 7:11 PM FISH NET MAKER [facility] ORDERS INTERFACE 09/18/2017 7:09 PM FISH NET MAKER 09/18/2017 7:11 PM FISH NET MAKER us Generic Conversion Md [facility] LAB[facility] Final R theo [facility] ORDERS INTERFACE US * (ABNORMAL) GLUCOSE BLOOD, QNT (09/18/2017 6:56 PM FISH NET MAKER) GLUCOSE POC 48(L) 70 - 99 MG/DL 09/18/2017 7:11 PM FISH NET MAKER [facility] ORDERS INTERFACE 09/18/2017 6:56 PM FISH NET MAKER 09/18/2017 7:11 PM FISH NET MAKER us Generic Conversion Md M[facility] LABORAT[facility] Final R esult Performing Organization Address [facility]/ZIP Co de Phone Number [facility] ORDERS INTERFACE US * (ABNORMAL) GLUCOSE BLOOD, QNT (09/18/2017 6:41 PM FISH NET MAKER) GLUCOSE POC 35(L) 70 - 99 MG/DL 09/18/2017 7:11 PM FISH NET MAKER [facility] ORDERS INTERFACE 09/18/2017 6:41 PM FISH NET MAKER 09/18/2017 7:11 PM FISH NET MAKER us Generic Conversion Md MIR LABORATORY Final R [facility] Performing Organization Address [facility] Co de Phone Number [facility] ORDERS INTERFACE US * (ABNORMAL) GLUCOSE BLOOD, QNT (09/18/2017 4:13 PM FISH NET MAKER) GLUCOSE POC 234(H) 70 - 99 MG/DL 09/18/2017 4:21 PM FISH NET MAKER [facility] ORDERS INTERFACE 09/18/2017 4:13 PM FISH NET MAKER 09/18/2017 4:21 PM FISH NET MAKER us Generic Conversion Md [facility] LABORAT[facility] Final R esult Performing Organization Address City/[facility]/ZIP Co de Phone Number [facility] ORDERS INTERFACE US * GLUCOSE BLOOD, QNT (09/18/2017 12:17 PM FISH NET MAKER) GLUCOSE POC 72 70 - 99 MG/DL 09/18/2017 12:21 PM FISH NET MAKER [facility] ORDERS INTERFACE 09/18/2017 12:1 7 PM FISH NET MAKER 09/18/2017 12:21 PM FISH NET MAKER us Generic Conversion Md [facility] LABORAT[facility] Final R theo Performing Organization Address [facility] Co de Phone Number [facility] ORDERS INTERFACE US * (ABNORMAL) GLUCOSE BLOOD, QNT (09/18/2017 11:43 AM FISH NET MAKER) GLUCOSE POC 52(L) 70 - 99 MG/DL 09/18/2017 11:48 AM FISH NET MAKER [facility] ORDERS INTERFACE 09/18/2017 11:4 3 AM FISH NET MAKER 09/18/2017 11:48 AM FISH NET MAKER us Generic Conversion Md [facility] LABOR[facility] Final R [facility] Performing Organization Address [facility] Phone Number [facility] ORDERS INTERFACE US * (ABNORMAL) GLUCOSE BLOOD, QNT (09/18/2017 10:59 AM FISH NET MAKER) GLUCOSE POC 57(L) 70 - 99 MG/DL 09/18/2017 11:01 AM FISH NET MAKER [facility] ORDERS INTERFACE 09/18/2017 10:5 9 AM FISH NET MAKER 09/18/2017 11:01 AM FISH NET MAKER us Generic Conversion Md M[facility] LABORATORY Final R [facility] Performing Organization Address [facility] Phone Number [facility] ORDERS INTERFACE US * GLUCOSE BLOOD, QNT (09/18/2017 5:00 AM FISH NET MAKER) GLUCOSE POC 82 70 - 99 MG/DL 09/18/2017 5:02 AM FISH NET MAKER [facility] ORDERS INTERFACE 09/18/2017 5:00 AM FISH NET MAKER 09/18/2017 5:02 AM FISH NET MAKER us Generic Conversion Md [facility] LABORAT[facility] Final R [facility] Performing Organization Address [facility] Co de Phone Number [facility] ORDERS INTERFACE US * (ABNORMAL) CBC W/DIFF AUTOMATED (09/18/2017 5:00 AM FISH NET MAKER) WBC 6.2 4.5 - 10.8 x10'3/uL 09/18/2017 5:37 AM [facility] RBC 3.38(L) 4.10 - 5.40 x10'6/uL 09/18/2017 5:37 AM [facility] HGB 10.3(L) 12.0 - 16.0 G/DL 09/18/2017 5:37 AM [facility] HCT 30.8(L) 36.0 - 47.0 % 09/18/2017 5:37 AM [facility] MCV 91.1 78.0 - 100.0 FL 09/18/2017 5:37 AM [facility] MCH 30.5 27.0 - 31.0 PG 09/18/2017 5:37 AM [facility] MCHC 33.4 33.0 - 36.0 G/DL 09/18/2017 5:37 AM [facility] RDW 12.1 11.5 - 14.5 % 09/18/2017 5:37 AM [facility] PLT 238 150 - 350 x10'3/uL 09/18/2017 5:37 AM [facility] MPV 9.8 7.4 - 10.4 FL 09/18/2017 5:37 AM [facility] SEG NEUTROPHILS 59.7 % 8 5:37 AM [facility] LYMPHOCYTES 30.6 % 09/18/2017 5:37 AM [facility] MONOCYTES 6.0 % 09/18/2017 5:37 AM [facility] EOSINOPHILS 3.2 % 09/18/2017 5:37 AM [facility] BASOPHILS 0.3 % 09/18/2017 5:37 AM [facility] IMMATURE GRANS % 0.2 % 09/18/19 18 5:37 AM [facility] NRBC 0.0 % 09/18/2017 5:37 AM [facility] ABS. NEUTROPHILS 3.71 1.60 - 8.30 x10'3/uL 09/18/2017 5:37 AM [facility] ABS. LYMPHOCYTES 1.90 0.80 - 4.70 x10'3/uL 09/18/2017 5:37 AM [facility] ABS. MONOCYTES 0.37 0.00 - 1.50 x10'3/uL 09/18/2017 5:37 AM [facility] ABS. EOSINOPHILS 0.20 0.00 - 0.40 x10'3/uL 09/18/2017 5:37 AM FISH NET MAKER [facility] ABS. BASOPHILS 0.02 0.00 - 0.20 x10'3/uL 09/18/2017 5:37 AM [facility] ABS. IMMATURE GRANULOCYTES 0.01 0.00 - 0.03 x10'3/uL 09/18/2017 5:37 AM [facility] ABS. NUCLEATED RBC'S 0.00 0.00 x10'3/uL 09/18/2017 5:37 AM [facility] OTHER (type in comments) 09/18/2017 5:00 AM FISH NET MAKER 09/18/2017 5:29 AM FISH NET MAKER Comment:WHOLE BLOOD SAMPLE us Generic Conversion Md [facility] Final R esult [facility] [address] [place] [address], * (ABNORMAL) BASIC METABOLIC PANEL (09/18/2017 5:00 AM FISH NET MAKER) GLUCOSE 92 70 - 99 MG/DL 09/18/2017 5:52 AM [facility] BUN 4(L) 7 - 19 MG/DL 09/18/2017 5:52 AM [facility] CREATININE S/P/B 0.63 0.57 - 1.11 MG/DL 09/18/2017 5:52 AM [facility] SODIUM S/P/B 141 136 - 145 MMOL/L 09/18/2017 5:52 AM [facility] POTASSIUM S/P/B 3.6 3.5 - 5.1 MMOL/L 09/18/2017 5:52 AM [facility] CHLORIDE S/P/B 109(H) 98 - 107 MMOL/L 09/18/2017 5:52 AM [facility] CO2 25.0 22.0 - 29.0 MMOL/L 09/18/2017 5:52 AM [facility] CALCIUM S/P/B 8.4 8.4 - 10.2 MG/DL 09/18/2017 5:52 AM [facility] EGFR NON-AFR. AMER. >60 >60 ML/MIN/1.7 3 M2 09/18/2017 5:52 AM [facility] EGFR AFR. AMER. >60 >60 ML/MIN/1.7 3 M2 09/18/2017 5:52 AM [facility] ANION GAP 7.0 7 - 16 MMOL/L 09/18/2017 5:52 AM [facility] 09/18/2017 5:00 AM FISH NET MAKER 09/18/2017 5:29 AM FISH NET MAKER us Generic Conversion Md [facility] LABOR[facility] Final R esult [facility] [address] [place] [address] * (ABNORMAL) GLUCOSE BLOOD, QNT (09/17/2017 8:09 PM FISH NET MAKER) GLUCOSE POC 171(H) 70 - 99 MG/DL 09/17/2017 9:07 PM FISH NET MAKER [facility] ORDERS INTERFACE 09/17/2017 8:09 PM FISH NET MAKER 09/17/2017 9:07 PM FISH NET MAKER us Generic Conversion Md [facility] LABOR[facility] Final R esult [facility] ORDERS INTERFACE US * GLUCOSE BLOOD, QNT (09/17/2017 4:22 PM FISH NET MAKER) GLUCOSE POC 96 70 - 99 MG/DL 09/17/2017 4:25 PM FISH NET MAKER [facility] ORDERS INTERFACE 09/17/2017 4:22 PM FISH NET MAKER 09/17/2017 4:25 PM FISH NET MAKER us Generic Conversion Md [facility] LABORAT[facility] Final R esult [facility] ORDERS INTERFACE US * (ABNORMAL) GLUCOSE BLOOD, QNT (09/17/2017 11:58 AM FISH NET MAKER) Pathologist [facility] GLUCOSE POC 247(H) 70 - 99 MG/DL 09/17/2017 12:02 PM FISH NET MAKER [facility] ORDERS INTERFACE 09/17/2017 11:5 8 AM FISH NET MAKER 09/17/2017 12:01 PM FISH NET MAKER us Generic Conversion Md [facility] LABOR[facility] Final R esult Performing Organization Address City/[facility]/ZIP Co de Phone Number [facility] ORDERS INTERFACE US * (ABNORMAL) CBC W/DIFF AUTOMATED (09/17/2017 9:42 AM FISH NET MAKER) [facility] WBC 9.2 4.5 - 10.8 x10'3/uL 09/17/2017 9:50 AM [facility] RBC 3.65(L) 4.10 - 5.40 x10'6/uL 09/17/2017 9:50 AM [facility] HGB 11.1(L) 12.0 - 16.0 G/DL 09/17/2017 9:50 AM [facility] HCT 32.9(L) 36.0 - 47.0 % 09/17/2017 9:50 AM [facility] MCV 90.1 78.0 - 100.0 FL 09/17/2017 9:50 AM [facility] MCH 30.4 27.0 - 31.0 PG 09/17/2017 9:50 AM [facility] MCHC 33.7 33.0 - 36.0 G/DL 09/17/2017 9:50 AM [facility] RDW 12.0 11.5 - 14.5 % 09/17/2017 9:50 AM [facility] PLT 199 150 - 350 x10'3/uL 09/17/2017 9:50 AM [facility] MPV 9.8 7.4 - 10.4 FL 09/17/2017 9:50 AM [facility] SEG NEUTROPHILS 81.0 % 8 9:50 AM [facility] LYMPHOCYTES 14.0 % 09/17/2017 9:50 AM [facility] MONOCYTES 4.2 % 09/17/2017 9:50 AM [facility] EOSINOPHILS 0.5 % 09/17/2017 9:50 AM [facility] BASOPHILS 0.1 % 09/17/2017 9:50 AM [facility] IMMATURE GRANS % 0.2 % 09/17/19 18 9:50 AM [facility] NRBC 0.0 % 09/17/2017 9:50 AM [facility] ABS. NEUTROPHILS 7.41 1.60 - 8.30 x10'3/uL 09/17/2017 9:50 AM [facility] ABS. LYMPHOCYTES 1.28 0.80 - 4.70 x10'3/uL 09/17/2017 9:50 AM [facility] ABS. MONOCYTES 0.38 0.00 - 1.50 x10'3/uL 09/17/2017 9:50 AM [facility] ABS. EOSINOPHILS 0.05 0.00 - 0.40 x10'3/uL 09/17/2017 9:50 AM [facility] ABS. BASOPHILS 0.01 0.00 - 0.20 x10'3/uL 09/17/2017 9:50 AM [facility] ABS. IMMATURE GRANULOCYTES 0.02 0.00 - 0.03 x10'3/uL 09/17/2017 9:50 AM [facility] ABS. NUCLEATED RBC'S 0.00 0.00 x10'3/uL 09/17/2017 9:50 AM [facility] OTHER (type in comments) 09/17/2017 9:42 AM FISH NET MAKER 09/17/2017 9:48 AM FISH NET MAKER Comment:WHOLE BLOOD SAMPLE us Generic Conversion Md [facility] Final R esult [facility] [address] [place] [address], * (ABNORMAL) BASIC METABOLIC PANEL (09/17/2017 9:42 AM FISH NET MAKER) GLUCOSE 161(H) 70 - 99 MG/DL 09/17/2017 10:05 AM [facility] BUN 6(L) 7 - 19 MG/DL 09/17/2017 10:05 AM [facility] CREATININE S/P/B 0.65 0.57 - 1.11 MG/DL 09/17/2017 10:05 AM [facility] SODIUM S/P/B 136 136 - 145 MMOL/L 09/17/2017 10:05 AM [facility] POTASSIUM S/P/B 3.8 3.5 - 5.1 MMOL/L 09/17/2017 10:05 AM [facility] CHLORIDE S/P/B 105 98 - 107 MMOL/L 09/17/2017 10:05 AM [facility] CO2 19.0(L) 22.0 - 29.0 MMOL/L 09/17/2017 10:05 AM [facility] CALCIUM S/P/B 8.8 8.4 - 10.2 MG/DL 09/17/2017 10:05 AM [facility] EGFR NON-AFR. AMER. >60 >60 ML/MIN/1.7 3 M2 09/17/2017 10:05 AM [facility] EGFR AFR. AMER. >60 >60 ML/MIN/1.7 3 M2 09/17/2017 10:05 AM [facility] ANION GAP 12.0 7 - 16 MMOL/L 09/17/2017 10:05 AM [facility] 09/17/2017 9:42 AM FISH NET MAKER 09/17/2017 9:48 AM FISH NET MAKER us Generic Conversion Md MIR LABORAT[facility] Final R esult [facility] [place] [id number], * (ABNORMAL) GLUCOSE BLOOD, QNT (09/17/2017 5:58 AM FISH NET MAKER) GLUCOSE POC 288(H) 70 - 99 MG/DL 09/17/2017 6:02 AM FISH NET MAKER [facility] ORDERS INTERFACE 09/17/2017 5:58 AM FISH NET MAKER 09/17/2017 6:02 AM FISH NET MAKER us Generic Conversion Md [facility] LABORAT[facility] Final R theo Performing Organization Address [facility] Co de Phone Number [facility] ORDERS INTERFACE US * (ABNORMAL) GLUCOSE BLOOD, QNT (09/16/2017 9:10 PM FISH NET MAKER) GLUCOSE POC 215(H) 70 - 99 MG/DL 09/16/2017 9:15 PM FISH NET MAKER [facility] ORDERS INTERFACE 09/16/2017 9:10 PM FISH NET MAKER 09/16/2017 9:15 PM FISH NET MAKER us Generic Conversion Md MIR LABORAT[facility] Final [facility] Performing Organization Address [facility] Co de Phone Number [facility] ORDERS INTERFACE US * (ABNORMAL) GLUCOSE BLOOD, QNT (09/16/2017 4:43 PM FISH NET MAKER) GLUCOSE POC 296(H) 70 - 99 MG/DL 09/16/2017 4:56 PM FISH NET MAKER [facility] ORDERS INTERFACE 09/16/2017 4:43 PM FISH NET MAKER 09/16/2017 4:55 PM FISH NET MAKER us Generic Conversion Md M[facility] LABORAT[facility] Final R [facility] Performing Organization Address City/[facility]/ZIP Co de Phone Number [facility] ORDERS INTERFACE US * (ABNORMAL) GLUCOSE BLOOD, QNT (09/16/2017 11:52 AM FISH NET MAKER) GLUCOSE POC 160(H) 70 - 99 MG/DL 09/16/2017 12:07 PM FISH NET MAKER [facility] ORDERS INTERFACE 09/16/2017 11:5 2 AM FISH NET MAKER 09/16/2017 12:07 PM FISH NET MAKER us Generic Conversion Md [facility] LABOR[facility] Final R esult [facility] ORDERS INTERFACE US * (ABNORMAL) CBC W/DIFF AUTOMATED (09/16/2017 5:45 AM FISH NET MAKER) WBC 10.7 4.5 - 10.8 x10'3/uL 09/16/2017 6:17 AM [facility] RBC 3.61(L) 4.10 - 5.40 x10'6/uL 09/16/2017 6:17 AM [facility] HGB 11.4(L) 12.0 - 16.0 G/DL 09/16/2017 6:17 AM [facility] HCT 32.5(L) 36.0 - 47.0 % 09/16/2017 6:17 AM [facility] MCV 90.0 78.0 - 100.0 FL 09/16/2017 6:17 AM [facility] MCH 31.6(H) 27.0 - 31.0 PG 09/16/2017 6:17 AM [facility] MCHC 35.1 33.0 - 36.0 G/DL 09/16/2017 6:17 AM [facility] RDW 11.9 11.5 - 14.5 % 09/16/2017 6:17 AM [facility] PLT 155 150 - 350 x10'3/uL 09/16/2017 6:17 AM [facility] MPV 10.1 7.4 - 10.4 FL 09/16/2017 6:17 AM [facility] SEG NEUTROPHILS 82.3 % 8 6:17 AM [facility] LYMPHOCYTES 11.9 % 09/16/2017 6:17 AM [facility] MONOCYTES 5.3 % 09/16/2017 6:17 AM [facility] EOSINOPHILS 0.1 % 09/16/2017 6:17 AM [facility] BASOPHILS 0.1 % 09/16/2017 6:17 AM [facility] IMMATURE GRANS % 0.3 % 09/16/19 18 6:17 AM [facility] NRBC 0.0 % 09/16/2017 6:17 AM [facility] ABS. NEUTROPHILS 8.78(H) 1.60 - 8.30 x10'3/uL 09/16/2017 6:17 AM [facility] ABS. LYMPHOCYTES 1.27 0.80 - 4.70 x10'3/uL 09/16/2017 6:17 AM [facility] ABS. MONOCYTES 0.56 0.00 - 1.50 x10'3/uL 09/16/2017 6:17 AM [facility] ABS. EOSINOPHILS 0.01 0.00 - 0.40 x10'3/uL 09/16/2017 6:17 AM [facility] ABS. BASOPHILS 0.01 0.00 - 0.20 x10'3/uL 09/16/2017 6:17 AM [facility] ABS. IMMATURE GRANULOCYTES 0.03 0.00 - 0.03 x10'3/uL 09/16/2017 6:17 AM [facility] ABS. NUCLEATED RBC'S 0.00 0.00 x10'3/uL 09/16/2017 6:17 AM [facility] OTHER (type in comments) 09/16/2017 5:45 AM FISH NET MAKER 09/16/2017 6:12 AM FISH NET MAKER Comment:WHOLE BLOOD SAMPLE us Generic Conversion Md [facility] LAB[facility] Final R esult [facility] [address] [place] [address], * (ABNORMAL) BASIC METABOLIC PANEL (09/16/2017 5:45 AM FISH NET MAKER) [facility] Signature GLUCOSE 89 70 - 99 MG/DL 09/16/2017 6:37 AM [facility] BUN 5(L) 7 - 19 MG/DL 09/16/2017 6:37 AM [facility] CREATININE S/P/B 0.63 0.57 - 1.11 MG/DL 09/16/2017 6:37 AM [facility] SODIUM S/P/B 139 136 - 145 MMOL/L 09/16/2017 6:37 AM [facility] POTASSIUM S/P/B 3.3(L) 3.5 - 5.1 MMOL/L 09/16/2017 6:37 AM [facility] CHLORIDE S/P/B 106 98 - 107 MMOL/L 09/16/2017 6:37 AM [facility] CO2 23.0 22.0 - 29.0 MMOL/L 09/16/2017 6:37 AM [facility] CALCIUM S/P/B 7.8(L) 8.4 - 10.2 MG/DL 09/16/2017 6:37 AM [facility] EGFR NON-AFR. AMER. >60 >60 ML/MIN/1.7 3 M2 09/16/2017 6:37 AM [facility] EGFR AFR. AMER. >60 >60 ML/MIN/1.7 3 M2 09/16/2017 6:37 AM [facility] ANION GAP 10.0 7 - 16 MMOL/L 09/16/2017 6:37 AM [facility] 09/16/2017 5:45 AM [employer] 09/16/2017 6:12 AM [facility] us Generic Conversion Md [facility] Final R esult [facility] [address] [place] [address], * GLUCOSE BLOOD, QNT (09/16/2017 3:15 AM [employer] NET [employer]ER) GLUCOSE POC 78 70 - 99 MG/DL 09/16/2017 3:17 AM [facility] ORDERS INTERFACE 09/16/2017 3:15 AM [employer] 09/16/2017 3:17 AM [employer] us Generic Conversion Md [facility] Final R esult [facility] ORDERS INTERFACE US * (ABNORMAL) GLUCOSE BLOOD, QNT (09/16/2017 2:38 AM [employer]ER) GLUCOSE POC 49(L) 70 - 99 MG/DL 09/16/2017 2:40 AM [facility] LAB ORDERS INTERFACE 09/16/2017 2:38 AM [employer] 09/16/2017 2:40 AM [employer] us Generic Conversion [facility] Final R esult Performing Organization Address [facility] Co de Phone Number [facility] ORDERS INTERFACE US * (ABNORMAL) URINALYSIS WI REFLEX TO CULTURE (09/15/2017 7:00 PM [employer]ER) COLOR (U) YELLOW 09/15/2017 7:20 PM [facility] TRANSPARENCY SLIGHTLY CLOUDY 09/15/2017 7:20 PM [facility] SPECIFIC GRAVITY (U) 1.015 1.000 - 1.025 09/15/2017 7:20 PM [facility] U PH 6.0 5.0 - 8.0 09/15/2017 7:20 PM [facility] LEUKOCYTES (U) NEGATIVE NEGATIVE 09/15/2017 7:20 PM [facility] NITRITES NEGATIVE NEGATIVE 09/15/2017 7:20 PM [facility] PROTEIN (U) NEGATIVE NEGATIVE 09/15/2017 7:20 PM [facility] URINE GLUCOSE NEGATIVE NEGATIVE 09/15/2017 7:20 PM [facility] KETONES MG/DL (U) 1+(A) NEGATIVE 09/15/2017 7:20 PM [facility] UROBILINOGEN 0.2 <1.0 EU/DL 09/15/2017 7:20 PM [facility] BILIRUBIN (U) NEGATIVE NEGATIVE 09/15/2017 7:20 PM [facility] BLOOD (U) NEGATIVE NEGATIVE 09/15/2017 7:20 PM [employer] [facility] WBC/HPF 0-5 0 - 5 /HPF 09/15/2017 7:20 PM [facility] RBC/HPF 0-5 0 - 5 /HPF 09/15/2017 7:20 PM [facility] EPI/HPF MODERATE /LPF 09/15/2017 7:20 PM [facility] BACTERIA (U) 1+ /HPF 09/15/2017 7:20 PM [facility] [facility] LAB MUCUS PRESENT 09/15/2017 7:20 PM [facility] CULTURE & SENSITIVITY INDICATED? NOT INDICATED NOT INDICATED 09/15/2017 7:20 PM [facility] OTHER (type in comments) 09/15/2017 7:00 PM FISH NET MAKER 09/15/2017 7:07 PM FISH NET MAKER Comment:URINE SPECIMEN~URINE SPECIMEN us Generic Conversion Md MIR [place] [address], [place] [phone] * TEST URINE (09/15/2017 7:00 PM FISH NET MAKER) PREG TEST NEGATIVE 09/15/2017 7:17 PM [facility] SPECIFIC GRAVITY (U) 1.015 09/15/2017 7:17 PM [facility] URINE SPECIMEN / Unknown 09/15/2017 7:00 PM FISH NET MAKER 09/15/2017 7:07 PM FISH NET MAKER us Generic Conversion Md MIR URINE ORDERABLES Final Result Performing Organization Address City/[facility]/ZIP Co de Phone Number [facility] [address] [place] [address], [place] [phone] * INFLUENZA A & B (09/15/2017 6:34 PM FISH NET MAKER) SPEC DESCRIPTION NASOPHARYNGEAL SWAB 09/15/2017 6:13 PM [facility] NET MAKER [facility] SPECIAL REQUESTS NO SPECIAL REQUEST 09/15/2017 6:13 PM [facility] NET MAKER [facility] RESULT NEGATIVE 09/15/2017 7:05 PM FISH NET MAKER [facility] RESULT A NEGATIVE RESULT DOES NOT EXCLUDE INFLUENZA VIRUS INFECTION. ??IF INFLUENZA IS CIRCULATING IN YOUR COMMUNITY, A DIAGNOSIS OF INFLUENZA SHOULD BE CONSIDERED BASED ON A PATIENT'S CLINICAL PRESENTATION AND EMPIRIC ANTIVIRAL TREATMENT SHOULD BE CONSIDERED IF INDICATED. 09/15/2017 7:05 PM FISH NET MAKER [facility] NASOPHARYNGEAL SWAB / Unknown 09/15/2017 6:34 PM FISH NET MAKER 09/15/2017 6:42 PM FISH NET MAKER us Generic Conversion Md MIR MICROBIOLOGY - GENERAL ORDERABLES Final Result Performing Organization Address City/[facility]/ZIP Co de Phone Number [facility] [address] [place], [place] [address], [place] [phone] * CULTURE, BACTERIA, BLOOD (09/15/2017 5:42 PM FISH NET MAKER) SPEC DESCRIPTION BLOOD 09/15/2017 5:25 PM FISH NET MAKER [facility] SPECIAL REQUESTS NO SPECIAL REQUEST 09/15/2017 5:25 PM FISH NET MAKER [facility] CULTURE RESULT NO GROWTH 5 DAYS 09/20/2017 6:22 AM FISH NET MAKER [facility] BLOOD SPECIMEN OBTAINED FOR BLOOD CULTURE / Unknown 09/15/2017 5:42 PM FISH NET MAKER 09/15/2017 5:48 PM FISH NET MAKER us Generic Conversion Md MIR MICROBIOLOGY - GENERAL ORDERABLES Final Result [facility] [address] [place] [address], [place] [phone] * CULTURE, BACTERIA, BLOOD (09/15/2017 5:35 PM FISH NET MAKER) SPEC DESCRIPTION BLOOD 09/15/2017 5:25 PM FISH NET MAKER [facility] SPECIAL REQUESTS NO SPECIAL REQUEST 09/15/2017 5:25 PM FISH NET MAKER [facility] CULTURE RESULT NO GROWTH 5 DAYS 09/20/2017 6:22 AM FISH NET MAKER [facility] BLOOD SPECIMEN OBTAINED FOR BLOOD CULTURE / Unknown 09/15/2017 5:35 PM FISH NET MAKER 09/15/2017 5:48 PM FISH NET MAKER us Generic Conversion Md MIR MICROBIOLOGY - GENERAL ORDERABLES Final Result Performing Organization Address [facility]/ZIP Co de Phone Number [facility] [address] [place] [address], [place] [phone] * (ABNORMAL) LIPASE (09/15/2017 5:35 PM FISH NET MAKER) LIPASE <2(L) 8 - 78 UNITS/L 09/15/2017 6:07 PM FISH NET MAKER [facility] SERUM OR PLASMA SPECIMEN / Unknown 09/15/2017 5:35 PM FISH NET MAKER 09/15/2017 5:47 PM FISH NET MAKER us Generic Conversion Md MIR LABORATORY Final R esult Performing Organization Address [facility] Co de Phone Number [facility] [address] [place] [address], [place] [phone] * LACTIC ACID (09/15/2017 5:35 PM FISH NET MAKER) LACTIC ACID VENOUS 0.9 0.5 - 2.2 MMOL/L 09/15/2017 6:00 PM FISH NET MAKER [facility] PLASMA SPECIMEN / Unknown 09/15/2017 5:35 PM FISH NET MAKER 09/15/2017 5:47 PM FISH NET MAKER us Generic Conversion Md MIR LABORATORY Final R esult Performing Organization Address [facility]/ZIP Co de Phone Number [facility] [address] [place] [address], [place] [phone] * (ABNORMAL) COMPREHENSIVE METABOLIC PANEL (09/15/2017 5:35 PM FISH NET MAKER) GLUCOSE 151(H) 70 - 99 MG/DL 09/15/2017 6:07 PM FISH NET MAKER [facility] BUN 6(L) 7 - 19 MG/DL 09/15/2017 6:07 PM [facility] CREATININE S/P/B 0.72 0.57 - 1.11 MG/DL 09/15/2017 6:07 PM [facility] SODIUM S/P/B 133(L) 136 - 145 MMOL/L 09/15/2017 6:07 PM [facility] POTASSIUM S/P/B 3.6 3.5 - 5.1 MMOL/L 09/15/2017 6:07 PM [facility] CHLORIDE S/P/B 98 98 - 107 MMOL/L 09/15/2017 6:07 PM [facility] CO2 24.0 22.0 - 29.0 MMOL/L 09/15/2017 6:07 PM [facility] CALCIUM S/P/B 9.1 8.4 - 10.2 MG/DL 09/15/2017 6:07 PM [facility] BILIRUBIN TOTAL S/P/B 0.4 0.2 - 1.2 MG/DL 09/15/2017 6:07 PM [facility] TOTAL PROTEIN S/P/B 7.6 6.0 - 8.3 G/DL 09/15/2017 6:07 PM [facility] ALBUMIN S/P/B 3.9 3.5 - 5.2 G/DL 09/15/2017 6:07 PM [facility] AST 22 5 - 34 U/L 09/15/2017 6:07 PM [facility] ALT 14 0 - 55 U/L 09/15/2017 6:07 PM [facility] ALKALINE PHOSPHATASE S/P/B 83 50 - 136 U/L 09/15/2017 6:07 PM [facility] OSMOLALITY (CALC) 267(L) 275 - 300 MOSM/KG 09/15/2017 6:07 PM [facility] A/G RATIO 1.1 1.0 - 1.6 RATIO 09/15/2017 6:07 PM [facility] BUN CREATININE RATIO 8.3(L) 12 - 20 09/15/2017 6:07 PM [facility] ANION GAP 11.0 7 - 16 MMOL/L 09/15/2017 6:07 PM FISH NET MAKER [facility] EGFR NON-AFR. AMER. >60 >60 ML/MIN/1.7 3 M2 09/15/2017 6:07 PM FISH NET MAKER [facility] EGFR AFR. AMER. >60 >60 ML/MIN/1.7 3 M2 09/15/2017 6:07 PM FISH NET MAKER [facility] 09/15/2017 5:35 PM FISH NET MAKER 09/15/2017 5:47 PM FISH NET MAKER us Generic Conversion Md MIR LABORATORY Final R esult [facility] [address] [place] [address], * (ABNORMAL) CBC W/DIFF AUTOMATED (09/15/2017 5:35 PM FISH NET MAKER) WBC 9.0 4.5 - 10.8 x10'3/uL 09/15/2017 5:50 PM [facility] RBC 4.21 4.10 - 5.40 x10'6/uL 09/15/2017 5:50 PM [facility] HGB 13.1 12.0 - 16.0 G/DL 09/15/2017 5:50 PM [facility] HCT 37.1 36.0 - 47.0 % 09/15/2017 5:50 PM [facility] MCV 88.1 78.0 - 100.0 FL 09/15/2017 5:50 PM [facility] MCH 31.1(H) 27.0 - 31.0 PG 09/15/2017 5:50 PM [facility] MCHC 35.3 33.0 - 36.0 G/DL 09/15/2017 5:50 PM [facility] RDW 11.8 11.5 - 14.5 % 09/15/2017 5:50 PM [facility] PLT 183 150 - 350 x10'3/uL 09/15/2017 5:50 PM [facility] MPV 9.6 7.4 - 10.4 FL 09/15/2017 5:50 PM FISH NET MAKER [facility] SEG NEUTROPHILS 81.3 % 8 5:50 PM [facility] LYMPHOCYTES 14.0 % 09/15/2017 5:50 PM [facility] MONOCYTES 4.1 % 09/15/2017 5:50 PM [facility] EOSINOPHILS 0.2 % 09/15/2017 5:50 PM [facility] BASOPHILS 0.1 % 09/15/2017 5:50 PM [facility] IMMATURE GRANS % 0.3 % 09/15/19 18 5:50 PM [facility] NRBC 0.0 % 09/15/2017 5:50 PM [facility] ABS. NEUTROPHILS 7.31 1.60 - 8.30 x10'3/uL 09/15/2017 5:50 PM [facility] ABS. LYMPHOCYTES 1.26 0.80 - 4.70 x10'3/uL 09/15/2017 5:50 PM [facility] ABS. MONOCYTES 0.37 0.00 - 1.50 x10'3/uL 09/15/2017 5:50 PM [facility] ABS. EOSINOPHILS 0.02 0.00 - 0.40 x10'3/uL 09/15/2017 5:50 PM [facility] ABS. BASOPHILS 0.01 0.00 - 0.20 x10'3/uL 09/15/2017 5:50 PM [facility] ABS. IMMATURE GRANULOCYTES 0.03 0.00 - 0.03 x10'3/uL 09/15/2017 5:50 PM [facility] ABS. NUCLEATED RBC'S 0.00 0.00 x10'3/uL 09/15/2017 5:50 PM [facility] OTHER (type in comments) 09/15/2017 5:35 PM FISH NET MAKER 09/15/2017 5:47 PM FISH NET MAKER Comment:WHOLE BLOOD SAMPLE us Generic Conversion Md MIR LABORATORY Final R esult [facility] [address] [place] [address], documented in this encounter Visit Diagnoses Diagnosis Pneumonia Pneumonia, organism unspecified documented in this encounter
--- OUTSIDE RECORDS SUMMARY | 2024-08-03 02:11 | XMS_ITS | Encounter Summary ---
Author Organization [facility] Address [address] [facility] [place] [address] [place] [address] Care Team Providers Care Vacuum Frame Operator Name Role Phone Unavailable Primary Care Provider Unavailabl e Encounter Details Date Type Department Care Team (Late st Contact Info) Description 04/14/2016 Abstract [facility] [address] [place] [address] Eliz Carrera MD [address] [place] [address] Social History Tobacco Use Types Packs/Day Years [...]
--- OUTSIDE RECORDS SUMMARY | 2024-08-03 02:11 | XMS_ITS | Encounter Summary ---
Author Organization [facility] Address [facility] [place] [address] [place] [address] Care Team Providers Care Sales Executive Insurance Name Role Phone Unavailable Primary Care Provider Unavailabl e Encounter Details Date Type Department Care Team (Late st Contact Info) Description 03/26/2015 Real [facility] [address] [place] [address] , Carolee Duenas MD Social History Tobacco [...]
--- OUTSIDE RECORDS SUMMARY | 2024-08-03 02:11 | XMS_ITS | Encounter Summary ---
Author Organization [facility] Address [facility] [facility]. [place], [place] [address] [place] [address] Care Team Providers Care Chairman And Ceo Name Role Phone Unavailable Primary Care Provider Unavailabl e Encounter Details Date Type Department Care Team (Latest Contact Info) Description 08/07/2017 Abstract [facility] Medical [facility] Social History Tobacco Use [...]
--- OUTSIDE RECORDS SUMMARY | 2024-08-03 02:11 | XMS_ITS | Encounter Summary ---
Author Organization [facility] Address [facility] [facility]. [place], [place] [address] [place] [address] Care Team Providers Care White Kid Buffer Name Role Phone Unavailable Primary Care Provider Unavailabl e Encounter Details Date Type Department Care Team (Latest Contact Info) Description 11/29/2015 Abstract [facility] Social History Tobacco Use [...]
--- OUTSIDE RECORDS SUMMARY | 2024-08-03 02:11 | XMS_ITS | Encounter Summary ---
Author Organization [facility] Address [facility] [facility]. [place], [place] [address] [place] [address] Care Team Providers Care Pot Puller Name Role Phone Unavailable Primary Care Provider Unavailabl e Encounter Details Date Type Department Care Team (Latest Contact Info) Description 08/08/2017 Abstract [facility] Social History Tobacco Use Types [...]
--- OUTSIDE RECORDS SUMMARY | 2024-08-03 02:11 | XMS_ITS | Encounter Summary ---
Author Organization [facility] Address [facility] [facility] [place] [address] [place] [address] Care Team Providers Care Medicaid Specialist Name Role Phone Unavailable Primary Care Provider Unavailabl e Encounter Details Date Type Department Care Team (Late st Contact Info) Description 06/15/2014 Abstract [facility] [address] [place] [address] Social History Tobacco Use Types Packs/Day Years [...]
--- OUTSIDE RECORDS SUMMARY | 2024-08-03 02:11 | XMS_ITS | Encounter Summary ---
Author Organization [facility] Address [facility] [place] [address] [place] [address] Care Team Providers Care Wardrobe Specialty Worker Name Role Phone Unavailable Primary Care Provider Unavailabl e Encounter Details Date Type Department Care Team (Late st Contact Info) Description 11/28/2015 Abstract [facility] [address] [place] [address] Eduardo Oakley MD [address] [place] [address] Social History Tobacco Use Types Packs/Day [...] AM CDT) 11/28/2015 8:49 AM CDT Narrative [facility] - 11/29/2015 9:39 AM CDT ? [facility] ? [address] [place], [place] ??[address] ? Test Date: ?2015-11-28 Pat Name: ? STEPH PARDEEP ? Department: ?? 1 ? Room: ? 0718 Gender: ? 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 [place] : ?1990 ? Requested By: LETA PERDUE Order Number: [id number] ? Reading MD: ?? Galen Mary ? Measurements Intervals ?[place] ? Rate: ? 87 ? P: ?42 SD: ? 146 ?QRS: ?69 QRSD: ? 79 ? T: ?31 QT: ? 377 ? QTc: ?454 ? Interpretive Statements SINUS RHYTHM NONSPECIFIC T-WAVE ABNORMALITY Procedure Note , Generic Conversion, - 03/18/2019 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: [place] : 1990 Requested By: LETA PERDUE Order Number: [id number] Reading MD: Galen Hernandez Measurements Intervals [place] Rate: 87 P: 42 SD: 146 QRS: 69 QRSD: 79 T: 31 QT: 377 QTc: 454 Interpretive Statements SINUS RHYTHM NONSPECIFIC T-WAVE ABNORMALITY us Generic Conversion Md MIR ECG ORDERABLES Final R esult [facility] documented in this encounter Visit Diagnoses Diagnosis Type 1 diabetes mellitus with ketoacidosis and without coma ([facility]) Type I (juvenile type) diabetes mellitus with ketoacidosis, not stated as uncontrolled documented in this encounter
--- OUTSIDE RECORDS SUMMARY | 2024-08-03 02:11 | XMS_ITS | Encounter Summary ---
Author Organization [facility] Address [facility] [place] [address] [place] [address] Care Team Providers Care Training And Development Project Leader Name Role Phone Unavailable Primary Care Provider Unavailabl e Encounter Details Date Type Department Care Team (Late st Contact Info) Description 04/24/[address] [facility] [address] [place] [address] Timothy Graham MD [address] [place] [address] Social History Tobacco Use Types [...]
--- OUTSIDE RECORDS SUMMARY | 2024-08-03 02:11 | XMS_ITS | Encounter Summary ---
Author Organization [facility] Address [address] [facility] [place] [address] [place] [address] Care Team Providers Care Wheel And Axle Inspector Name Role Phone Unavailable Primary Care Provider Unavailabl e Encounter Details Date Type Department Care Team (Late st Contact Info) Description 03/18/2015 Abstract [facility] [address] [place] [address] [place] [address] [place] [address] Social History Tobacco Use Types [...]
--- OUTSIDE RECORDS SUMMARY | 2024-08-03 02:11 | XMS_ITS | Encounter Summary ---
Author Organization [facility] Address [address] [facility] [place] [address] [place] [address] Care Team Providers Care Pediatric Cardiologist Name Role Phone Unavailable Primary Care Provider Unavailabl e Encounter Details Date Type Department Care Team (Latest Contact Info) Description 04/10/2018 Abstract [facility] Medical Group Aissatou Pascal MD [address] [place] [address] Social History Tobacco Use Types Packs/Day Years [...] PM CDT Narrative 04/10/2018 7:05 PM T [address] [address] PATIENT NAME: STEPH ROBERTO EXAM: CT abdomen/pelvis [...] Procedure Note Carolee Back MD - 06/04/2018 [facility] [address] [place], [place] [address] PATIENT NAME: STEPH ROBERTO EXAM: CT abdomen/pelvis [...]
--- OUTSIDE RECORDS SUMMARY | 2024-08-03 02:11 | XMS_ITS | Encounter Summary ---
Author Organization [facility] Address [facility] [facility] [place] [address] [place] [address] Care Team Providers Care Alterations Workroom Clerk Name Role Phone Unavailable Primary Care Provider Unavailabl e Encounter Details Date Type Department Care Team (Late st Contact Info) Description 06/04/2014 Abstract [place] [facility] [address] [place] [address] Chiqui Saunders, DO [address] [place], [place] [address] Social History Tobacco Use Types Packs/Day Years [...]
--- OUTSIDE RECORDS SUMMARY | 2024-08-03 02:11 | XMS_ITS | Encounter Summary ---
Author Organization [facility] Address [address] [place] [address] [place] [address] Care Team Providers Care Chief Wharfinger Name Role Phone Unavailable Primary Care Provider Unavailabl e Encounter Details Date Type Department Care Team (Late st Contact Info) Description 04/23/2017 Abstract [place] [facility] [address] [place] [address] Lalit Logan MD [address] [place] [address] Social History Tobacco Use Types [...] - 99 MG/DL 04/24/2017 6:32 AM CDT [facility] INTERFACE 04/24/2017 6:30 AM CDT 04/24/2017 6:32 AM CDT us Generic Conversion Md MIR LABORATORY Final R eslucina [facility] INTERFACE US * THYROID STIM HORMONE, TSH (04/24/2017 5:58 AM CDT) TSH 4.838 0.350 - 4.940 uIU/ML 04/24/2017 6:45 AM CDT [facility] SERUM OR PLASMA SPECIMEN / Unknown 04/24/2017 5:58 AM CDT 04/24/2017 6:03 AM CDT us Generic Conversion Md MIR LABORATORY Final R esult [facility] [address] [place] [address], * (ABNORMAL) GLUCOSE BLOOD, QNT (04/24/2017 5:58 AM CDT) GLUCOSE 61(L) 70 - 99 MG/DL 04/24/2017 6:19 AM CDT [facility] SERUM OR PLASMA SPECIMEN / Unknown 04/24/2017 5:58 AM CDT 04/24/2017 6:03 AM CDT us Generic Conversion Md MIR LABORATORY Final R esult Performing Organization Address [facility] Co de Phone Number [facility] [address] [place] [phone], * (ABNORMAL) HEMOGLOBIN, GLYCOSYLATED (04/24/2017 5:58 AM CDT) HGB A1C 12.7(H) 4.5 - 6.0 % 04/24/2017 6:18 AM CDT [facility] Comment: ADA GUIDELINES 63072.7 TO 6.4% INCREASED RISK OF DIABETES> OR = 6.5% CONSISTENT WITH DIABETES ESTIMATED AVG GLUCOSE 318(H) 70 - 99 MG/DL 04/24/2017 6:18 AM CDT [facility] 04/24/2017 5:58 AM CDT 04/24/2017 6:04 AM CDT us Generic Conversion Md MIR LABORATORY Final R esult Performing Organization Address City/[facility]/ZIP Co de Phone Number [facility] [address] [place] [address], * (ABNORMAL) PHOSPHORUS, INORGANIC PHOSPHATE (04/24/2017 4:58 AM CDT) PHOSPHORUS 1.8(L) 2.5 - 4.9 MG/DL 04/24/2017 5:21 AM CDT [facility] SERUM OR PLASMA SPECIMEN / Unknown 04/24/2017 4:58 AM CDT 04/24/2017 5:01 AM CDT us Generic Conversion Md MIR LABORATORY Final R esult [facility] [address] [place] [phone], * (ABNORMAL) BASIC METABOLIC PANEL (04/24/2017 4:58 AM CDT) GLUCOSE 80 70 - 99 MG/DL 04/24/2017 5:21 AM CDT [facility] BUN 5(L) 7 - 19 MG/DL 04/24/2017 5:21 AM CDT [facility] CREATININE S/P/B 0.69 0.57 - 1.11 MG/DL 04/24/2017 5:21 AM CDT [facility] SODIUM S/P/B 136 136 - 145 MMOL/L 04/24/2017 5:21 AM CDT [facility] POTASSIUM S/P/B 3.7 3.5 - 5.1 MMOL/L 04/24/2017 5:21 AM CDT [facility] CHLORIDE S/P/B 109(H) 98 - 107 MMOL/L 04/24/2017 5:21 AM CDT [facility] CO2 19.0(L) 22.0 - 29.0 MMOL/L 04/24/2017 5:21 AM CDT [facility] CALCIUM S/P/B 8.3(L) 8.4 - 10.2 MG/DL 04/24/2017 5:21 AM CDT [facility] EGFR NON-AFR. AMER. >60 >60 ML/MIN/1.7 3 M2 04/24/2017 5:21 AM CDT [facility] EGFR AFR. AMER. >60 >60 ML/MIN/1.7 3 M2 04/24/2017 5:21 AM CDT [facility] ANION GAP 8.0 7 - 16 MMOL/L 04/24/2017 5:21 AM CDT [facility] 04/24/2017 4:58 AM CDT 04/24/2017 5:01 AM CDT us Generic Conversion Md MIR LABORATORY Final R theo Performing Organization Address [facility]/ZIP Co de Phone Number [facility] [address] [place] [phone], * BETA-HYDROXYBUTYRATE (04/24/2017 4:58 AM CDT) BETA-HYDROXYBUT YRATE 0.2 0.0 - 0.3 MMOL/L 04/24/2017 5:09 AM CDT [facility] SERUM OR PLASMA SPECIMEN / Unknown 04/24/2017 4:58 AM CDT 04/24/2017 5:01 AM CDT us Generic Conversion Md MIR LABORATORY Final R theo Performing Organization Address City/[facility]/ZIP Co de Phone Number [facility] [address] [place] [address], [place] [phone] * GLUCOSE BLOOD, QNT (04/24/2017 3:53 AM CDT) GLUCOSE 89 70 - 99 MG/DL 04/24/2017 4:13 AM CDT [facility] SERUM OR PLASMA SPECIMEN / Unknown 04/24/2017 3:53 AM CDT 04/24/2017 3:59 AM CDT us Generic Conversion Md MIR LABORATORY Final R theo Performing Organization Address City/[facility] Co de Phone Number [facility] [address] [place] [phone], * (ABNORMAL) BASIC METABOLIC PANEL (04/24/2017 2:56 AM CDT) GLUCOSE 127(H) 70 - 99 MG/DL 04/24/2017 3:23 AM CDT [facility] BUN 7 7 - 19 MG/DL 04/24/2017 3:23 AM CDT [facility] CREATININE S/P/B 0.74 0.57 - 1.11 MG/DL 04/24/2017 3:23 AM CDT [facility] SODIUM S/P/B 133(L) 136 - 145 MMOL/L 04/24/2017 3:23 AM CDT [facility] POTASSIUM S/P/B 3.8 3.5 - 5.1 MMOL/L 04/24/2017 3:23 AM CDT [facility] CHLORIDE S/P/B 107 98 - 107 MMOL/L 04/24/2017 3:23 AM CDT [facility] CO2 19.0(L) 22.0 - 29.0 MMOL/L 04/24/2017 3:23 AM CDT [facility] CALCIUM S/P/B 8.3(L) 8.4 - 10.2 MG/DL 04/24/2017 3:23 AM CDT [facility] EGFR NON-AFR. AMER. >60 >60 ML/MIN/1.7 3 M2 04/24/2017 3:23 AM CDT [facility] EGFR AFR. AMER. >60 >60 ML/MIN/1.7 3 M2 04/24/2017 3:23 AM CDT [facility] ANION GAP 7.0 7 - 16 MMOL/L 04/24/2017 3:23 AM CDT [facility] 04/24/2017 2:56 AM CDT 04/24/2017 3:03 AM CDT us Generic Conversion Md MIR LABORATORY Final R esult [facility] [address] [place] [address], * (ABNORMAL) GLUCOSE BLOOD, QNT (04/24/2017 1:57 AM CDT) GLUCOSE 140(H) 70 - 99 MG/DL 04/24/2017 2:23 AM CDT [facility] SERUM OR PLASMA SPECIMEN / Unknown 04/24/2017 1:57 AM CDT 04/24/2017 2:03 AM CDT us Generic Conversion Md MIR LABORATORY Final R esult [facility] [address] [place] [address], * (ABNORMAL) BASIC METABOLIC PANEL (04/24/2017 1:06 AM CDT) GLUCOSE 149(H) 70 - 99 MG/DL 04/24/2017 1:30 AM CDT [facility] BUN 7 7 - 19 MG/DL 04/24/2017 1:30 AM CDT [facility] CREATININE S/P/B 0.79 0.57 - 1.11 MG/DL 04/24/2017 1:30 AM CDT [facility] SODIUM S/P/B 132(L) 136 - 145 MMOL/L 04/24/2017 1:30 AM CDT [facility] POTASSIUM S/P/B 3.9 3.5 - 5.1 MMOL/L 04/24/2017 1:30 AM CDT [facility] CHLORIDE S/P/B 105 98 - 107 MMOL/L 04/24/2017 1:30 AM CDT [facility] CO2 18.0(L) 22.0 - 29.0 MMOL/L 04/24/2017 1:30 AM CDT [facility] CALCIUM S/P/B 8.1(L) 8.4 - 10.2 MG/DL 04/24/2017 1:30 AM CDT [facility] EGFR NON-AFR. AMER. >60 >60 ML/MIN/1.7 3 M2 04/24/2017 1:30 AM CDT [facility] EGFR AFR. AMER. >60 >60 ML/MIN/1.7 3 M2 04/24/2017 1:30 AM CDT [facility] ANION GAP 9.0 7 - 16 MMOL/L 04/24/2017 1:30 AM CDT [facility] 04/24/2017 1:06 AM CDT 04/24/2017 1:09 AM CDT us Generic Conversion Md MIR LABORATORY Final R theo Performing Organization Address [facility]/ZIP Co de Phone Number [facility] [address] [place] [address], [place] [phone] * (ABNORMAL) GLUCOSE BLOOD, QNT (04/24/2017 12:27 AM CDT) GLUCOSE 157(H) 70 - 99 MG/DL 04/24/2017 12:46 AM CDT [facility] SERUM OR PLASMA SPECIMEN / Unknown 04/24/2017 12:27 AM CDT 04/24/2017 12:31 AM CDT us Generic Conversion Md MIR LABORATORY Final R theo Performing Organization Address [facility] Co de Phone Number [facility] [address] [place] [address], [place] [phone] * (ABNORMAL) PHOSPHORUS, INORGANIC PHOSPHATE (04/23/2017 10:55 PM CDT) PHOSPHORUS 1.4(L) 2.5 - 4.9 MG/DL 04/23/2017 11:21 PM CDT [facility] SERUM OR PLASMA SPECIMEN / Unknown 04/23/2017 10:55 PM CDT 04/23/2017 11:01 PM CDT us Generic Conversion Md MIR LABORATORY Final R theo Performing Organization Address [facility]/ZIP Co de Phone Number [facility] [address] [place] [address], [place] [phone] * (ABNORMAL) BASIC METABOLIC PANEL (04/23/2017 10:55 PM CDT) GLUCOSE 135(H) 70 - 99 MG/DL 04/23/2017 11:21 PM CDT [facility] BUN 8 7 - 19 MG/DL 04/23/2017 11:21 PM CDT [facility] CREATININE S/P/B 0.78 0.57 - 1.11 MG/DL 04/23/2017 11:21 PM CDT [facility] SODIUM S/P/B 133(L) 136 - 145 MMOL/L 04/23/2017 11:21 PM CDT [facility] POTASSIUM S/P/B 3.9 3.5 - 5.1 MMOL/L 04/23/2017 11:21 PM CDT [facility] CHLORIDE S/P/B 106 98 - 107 MMOL/L 04/23/2017 11:21 PM CDT [facility] CO2 20.0(L) 22.0 - 29.0 MMOL/L 04/23/2017 11:21 PM CDT [facility] CALCIUM S/P/B 8.0(L) 8.4 - 10.2 MG/DL 04/23/2017 11:21 PM CDT [facility] EGFR NON-AFR. AMER. >60 >60 ML/MIN/1.7 3 M2 04/23/2017 11:21 PM CDT [facility] EGFR AFR. AMER. >60 >60 ML/MIN/1.7 3 M2 04/23/2017 11:21 PM CDT [facility] ANION GAP 7.0 7 - 16 MMOL/L 04/23/2017 11:21 PM CDT [facility] 04/23/2017 10:5 5 PM CDT 04/23/2017 11:01 PM CDT us Generic Conversion Md MIR LABORATORY Final R esult [facility] [address] [place] [address], * (ABNORMAL) BETA-HYDROXYBUTYRATE (04/23/2017 10:55 PM CDT) BETA-HYDROXYBU TYRATE 0.8(H) 0.0 - 0.3 MMOL/L 04/23/2017 11:04 PM CDT [facility] SERUM OR PLASMA SPECIMEN / Unknown 04/23/2017 10:55 PM CDT 04/23/2017 11:01 PM CDT us Generic Conversion Md MIR LABORATORY Final R esult Performing Organization Address [facility]/ZIP Co de Phone Number [facility] [address] [place] [address], * GLUCOSE BLOOD, QNT (04/23/2017 10:03 PM CDT) GLUCOSE 98 70 - 99 MG/DL 04/23/2017 10:41 PM CDT [facility] SERUM OR PLASMA SPECIMEN / Unknown 04/23/2017 10:03 PM CDT 04/23/2017 10:11 PM CDT us Generic Conversion Md [facility] LABORAT[facility] Final R esult Performing Organization Address City/[facility] Co de Phone Number [facility] [address] [place] [address], [place] [phone] * (ABNORMAL) BASIC METABOLIC PANEL (04/23/2017 8:58 PM CDT) GLUCOSE 97 70 - 99 MG/DL 04/23/2017 9:32 PM CDT [facility] BUN 9 7 - 19 MG/DL 04/23/2017 9:32 PM CDT [facility] CREATININE S/P/B 0.75 0.57 - 1.11 MG/DL 04/23/2017 9:32 PM CDT [facility] SODIUM S/P/B 134(L) 136 - 145 MMOL/L 04/23/2017 9:32 PM CDT [facility] POTASSIUM S/P/B 4.0 3.5 - 5.1 MMOL/L 04/23/2017 9:32 PM CDT [facility] CHLORIDE S/P/B 108(H) 98 - 107 MMOL/L 04/23/2017 9:32 PM CDT [facility] CO2 18.0(L) 22.0 - 29.0 MMOL/L 04/23/2017 9:32 PM CDT [facility] CALCIUM S/P/B 8.0(L) 8.4 - 10.2 MG/DL 04/23/2017 9:32 PM CDT [facility] EGFR NON-AFR. AMER. >60 >60 ML/MIN/1.7 3 M2 04/23/2017 9:32 PM CDT [facility] EGFR AFR. AMER. >60 >60 ML/MIN/1.7 3 M2 04/23/2017 9:32 PM CDT [facility] ANION GAP 8.0 7 - 16 MMOL/L 04/23/2017 9:32 PM CDT [facility] 04/23/2017 8:58 PM CDT 04/23/2017 9:04 PM CDT us Generic Conversion Md MIR LABORATORY Final R esult Performing Organization Address City/[facility]/ZIP Co de Phone Number [facility] [address] [place] [address], * (ABNORMAL) GLUCOSE BLOOD, QNT (04/23/2017 7:57 PM CDT) GLUCOSE 114(H) 70 - 99 MG/DL 04/23/2017 8:20 PM CDT [facility] SERUM OR PLASMA SPECIMEN / Unknown 04/23/2017 7:57 PM CDT 04/23/2017 8:04 PM CDT us Generic Conversion Md MIR LABORATORY Final R esult [facility] [place] [address], [place] [phone] * (ABNORMAL) CALCIUM (04/23/2017 7:05 PM CDT) CALCIUM S/P/B 8.1(L) 8.4 - 10.2 MG/DL 04/23/2017 7:28 PM CDT [facility] SERUM OR PLASMA SPECIMEN / Unknown 04/23/2017 7:05 PM CDT 04/23/2017 7:11 PM CDT us Generic Conversion Md [facility] LABORAT[facility] Final R esult [facility] [address] [place] [address], * (ABNORMAL) ARTERIAL BLOOD GAS (04/23/2017 7:05 PM CDT) O2 SATURATION 100 95 - 100 % 04/23/2017 7:12 PM CDT [facility] PH ARTERIAL 7.38 7.35 - 7.45 04/23/2017 7:12 PM CDT [facility] PCO2 27.5(L) 34.0 - 45.0 MMHG 04/23/2017 7:12 PM CDT [facility] PO2 139.0(H) 80.0 - 95.0 MMHG 04/23/2017 7:12 PM CDT [facility] BASE DEFICIT 7.4 MMOL/L 04/23/2017 7:12 PM CDT [facility] BICARB ARTERIAL 16.1(L) 18.0 - 23.0 MMOL/L 04/23/2017 7:12 PM CDT [facility] TCO2 16.9(L) 18.0 - 23.0 MMOL/L 04/23/2017 7:12 PM CDT [facility] LITER FLOW ROOM AIR 04/23/2017 7:10 PM CDT [facility] SURJIT TEST N/A 04/23/2017 7:10 PM CDT [facility] DRAW SITE LT BRACH 04/23/2017 7:10 PM CDT [facility] 04/23/2017 7:05 PM CDT 04/23/2017 7:10 PM CDT us Generic Conversion Md MIR LABORATORY Final R esult [facility] [address] [place] [address], * (ABNORMAL) BASIC METABOLIC PANEL (04/23/2017 7:05 PM CDT) GLUCOSE 151(H) 70 - 99 MG/DL 04/23/2017 7:30 PM CDT [facility] BUN 9 7 - 19 MG/DL 04/23/2017 7:30 PM CDT [facility] CREATININE S/P/B 0.78 0.57 - 1.11 MG/DL 04/23/2017 7:30 PM CDT [facility] SODIUM S/P/B 133(L) 136 - 145 MMOL/L 04/23/2017 7:30 PM CDT [facility] POTASSIUM S/P/B 4.1 3.5 - 5.1 MMOL/L 04/23/2017 7:30 PM CDT [facility] CHLORIDE S/P/B 109(H) 98 - 107 MMOL/L 04/23/2017 7:30 PM CDT [facility] CO2 15.0(L) 22.0 - 29.0 MMOL/L 04/23/2017 7:30 PM CDT [facility] CALCIUM S/P/B 8.0(L) 8.4 - 10.2 MG/DL 04/23/2017 7:30 PM CDT [facility] EGFR NON-AFR. AMER. >60 >60 ML/MIN/1.7 3 M2 04/23/2017 7:30 PM CDT [facility] EGFR AFR. AMER. >60 >60 ML/MIN/1.7 3 M2 04/23/2017 7:30 PM CDT [facility] ANION GAP 9.0 7 - 16 MMOL/L 04/23/2017 7:30 PM CDT [facility] 04/23/2017 7:05 PM CDT 04/23/2017 7:11 PM CDT us Generic Conversion Md M[facility] LABORATORY Final R esult [facility] [address] [place] [address], * (ABNORMAL) URINALYSIS (04/23/2017 6:00 PM CDT) COLOR (U) STRAW 04/23/2017 6:11 PM CDT [facility] TRANSPARENCY HAZY 04/23/2017 6:11 PM CDT [facility] SPECIFIC GRAVITY (U) 1.020 1.000 - 1.025 04/23/2017 6:11 PM CDT [facility] U PH 5.5 5.0 - 8.0 04/23/2017 6:11 PM CDT [facility] LEUKOCYTES (U) NEGATIVE NEGATIVE 04/23/2017 6:11 PM CDT [facility] NITRITES NEGATIVE NEGATIVE 04/23/2017 6:11 PM CDT [facility] PROTEIN (U) NEGATIVE NEGATIVE 04/23/2017 6:11 PM CDT [facility] URINE GLUCOSE 2+(A) NEGATIVE 04/23/2017 6:11 PM CDT [facility] KETONES MG/DL (U) 3+(A) NEGATIVE 04/23/2017 6:11 PM CDT [facility] UROBILINOGEN 0.2 <1.0 EU/DL 04/23/2017 6:11 PM CDT [facility] BILIRUBIN (U) NEGATIVE NEGATIVE 04/23/2017 6:11 PM CDT [facility] BLOOD (U) NEGATIVE NEGATIVE 04/23/2017 6:11 PM CDT [facility] WBC/HPF 0-5 0 - 5 /HPF 04/23/2017 6:11 PM CDT [facility] EPI/HPF MANY /LPF 04/23/2017 6:11 PM CDT [facility] 04/23/2017 6:00 PM CDT 04/23/2017 6:04 PM CDT us Generic Conversion Md MIR URINE ORDERABLES Final Result Performing Organization Address City/[facility]/ZIP Co de Phone Number [facility] [address] [place] [address], * (ABNORMAL) GLUCOSE BLOOD, QNT (04/23/2017 5:52 PM CDT) GLUCOSE 145(H) 70 - 99 MG/DL 04/23/2017 6:14 PM CDT [facility] SERUM OR PLASMA SPECIMEN / Unknown 04/23/2017 5:52 PM CDT 04/23/2017 5:59 PM CDT us Generic Conversion Md M[facility] LABORAT[facility] Final R eslucina Performing Organization Address [facility] Co de Phone Number [facility] [address] [place] [address], * (ABNORMAL) GLUCOSE BLOOD, QNT (04/23/2017 5:16 PM CDT) GLUCOSE POC 164(H) 70 - 99 MG/DL 04/23/2017 5:19 PM CDT [facility] ORDERS INTERFACE 04/23/2017 5:16 PM CDT 04/23/2017 5:19 PM CDT us Generic Conversion Md MIR LABORATORY Final R esult Performing Organization Address City/[facility]/ZIP Co de Phone Number [facility] ORDERS INTERFACE US * (ABNORMAL) PHOSPHORUS, INORGANIC PHOSPHATE (04/23/2017 5:05 PM CDT) PHOSPHORUS 0.8(LL) 2.5 - 4.9 MG/DL 04/23/2017 5:32 PM CDT [facility] Comment:CRITICAL [place] [id number] BACK AND VERIFIED SERUM OR PLASMA SPECIMEN / Unknown 04/23/2017 5:05 PM CDT 04/23/2017 5:06 PM CDT us Generic Conversion Md [facility] LABOR[facility] Final R eslucina [facility] [address] [place] [address], * (ABNORMAL) BASIC METABOLIC PANEL (04/23/2017 5:05 PM CDT) [facility] Signature GLUCOSE 140(H) 70 - 99 MG/DL 04/23/2017 5:32 PM CDT [facility] BUN 9 7 - 19 MG/DL 04/23/2017 5:32 PM CDT [facility] CREATININE S/P/B 0.84 0.57 - 1.11 MG/DL 04/23/2017 5:32 PM CDT [facility] SODIUM S/P/B 135(L) 136 - 145 MMOL/L 04/23/2017 5:32 PM CDT [facility] POTASSIUM S/P/B 3.7 3.5 - 5.1 MMOL/L 04/23/2017 5:32 PM CDT [facility] CHLORIDE S/P/B 108(H) 98 - 107 MMOL/L 04/23/2017 5:32 PM CDT [facility] CO2 14.0(L) 22.0 - 29.0 MMOL/L 04/23/2017 5:32 PM CDT [facility] CALCIUM S/P/B 7.8(L) 8.4 - 10.2 MG/DL 04/23/2017 5:32 PM CDT [facility] EGFR NON-AFR. AMER. >60 >60 ML/MIN/1.7 3 M2 04/23/2017 5:32 PM CDT [facility] EGFR AFR. AMER. >60 >60 ML/MIN/1.7 3 M2 04/23/2017 5:32 PM CDT [facility] ANION GAP 13.0 7 - 16 MMOL/L 04/23/2017 5:32 PM CDT [facility] 04/23/2017 5:05 PM CDT 04/23/2017 5:06 PM CDT us Generic Conversion Md M[facility]ORAT[facility] Final R esult [facility] [address] [place] [address], [place] [phone] * (ABNORMAL) BETA-HYDROXYBUTYRATE (04/23/2017 5:05 PM CDT) BETA-HYDROXYBU TYRATE 3.6(H) 0.0 - 0.3 MMOL/L 04/23/2017 5:09 PM CDT [facility] SERUM OR PLASMA SPECIMEN / Unknown 04/23/2017 5:05 PM CDT 04/23/2017 5:06 PM CDT us Generic Conversion [facility] Final R esult Performing Organization Address City/[facility]/ZIP Co de Phone Number [facility] [place] [address], [place] [phone] * (ABNORMAL) GLUCOSE BLOOD, QNT (04/23/2017 4:09 PM CDT) Pathologist [facility] GLUCOSE POC 219(H) 70 - 99 MG/DL 04/23/2017 4:14 PM CDT [facility] ORDERS INTERFACE 04/23/2017 4:09 PM CDT 04/23/2017 4:14 PM CDT us Generic Conversion [facility] Final R eslucina Performing Organization Address City/[facility]/ZIP Co de Phone Number [facility] ORDERS INTERFACE [place] * (ABNORMAL) PH-VENOUS (04/23/2017 3:30 PM CDT) Pathologist [facility] PH VENOUS 7.19(LL) 7.35 - 7.45 04/23/2017 4:17 PM CDT [facility] Comment:[place] [address]READ BACK AND VERIFIEDRESULT CHECKED VENOUS BLOOD SPECIMEN / Unknown 04/23/2017 3:30 PM CDT 04/23/2017 4:15 PM CDT us Generic Conversion [facility] Final R esult [facility] [address] [place] [address], [place] [phone] * (ABNORMAL) BASIC METABOLIC PANEL (04/23/2017 3:30 PM CDT) GLUCOSE 260(H) 70 - 99 MG/DL 04/23/2017 4:06 PM CDT [facility] BUN 10 7 - 19 MG/DL 04/23/2017 4:06 PM CDT [facility] CREATININE S/P/B 0.89 0.57 - 1.11 MG/DL 04/23/2017 4:06 PM CDT [facility] SODIUM S/P/B 133(L) 136 - 145 MMOL/L 04/23/2017 4:06 PM CDT [facility] POTASSIUM S/P/B 4.1 3.5 - 5.1 MMOL/L 04/23/2017 4:06 PM CDT [facility] CHLORIDE S/P/B 107 98 - 107 MMOL/L 04/23/2017 4:06 PM CDT [facility] CO2 10.0(LL) 22.0 - 29.0 MMOL/L 04/23/2017 4:06 PM CDT [facility] Comment:CRITICAL VALUECALLED [place] 160[address]READ BACK AND VERIFIED CALCIUM S/P/B 7.6(L) 8.4 - 10.2 MG/DL 04/23/2017 4:06 PM CDT [facility] EGFR NON-AFR. AMER. >60 >60 ML/MIN/1.7 3 M2 04/23/2017 4:06 PM CDT [facility] EGFR AFR. AMER. >60 >60 ML/MIN/1.7 3 M2 04/23/2017 4:06 PM CDT [facility] ANION GAP 16.0 7 - 16 MMOL/L 04/23/2017 4:06 PM CDT [facility] 04/23/2017 3:30 PM CDT 04/23/2017 3:44 PM CDT us Generic Conversion [facility] Final R esult Performing Organization Address City/[facility]/ZIP Co de Phone Number [facility] [address] [place] [address], * (ABNORMAL) GLUCOSE BLOOD, QNT (04/23/2017 3:06 PM CDT) GLUCOSE POC 325(H) 70 - 99 MG/DL 04/23/2017 3:07 PM CDT [facility] ORDERS INTERFACE 04/23/2017 3:06 PM CDT 04/23/2017 3:07 PM CDT us Generic Conversion [facility] Final R lucina Performing Organization Address [facility]/ZIP Co de Phone Number [facility] ORDERS INTERFACE US * (ABNORMAL) GLUCOSE BLOOD, QNT (04/23/2017 1:38 PM CDT) GLUCOSE POC 262(H) 70 - 99 MG/DL 04/23/2017 1:41 PM CDT [facility] ORDERS INTERFACE 04/23/2017 1:38 PM CDT 04/23/2017 1:41 PM CDT us Generic Conversion [facility] Luis venegas Performing Organization Address [facility]/ZIP Co de Phone Number [facility] ORDERS INTERFACE US * (ABNORMAL) BASIC METABOLIC PANEL (04/23/2017 1:30 PM CDT) GLUCOSE 319(H) 70 - 99 MG/DL 04/23/2017 2:14 PM CDT [facility] BUN 12 7 - 19 MG/DL 04/23/2017 2:14 PM CDT [facility] CREATININE S/P/B 0.86 0.57 - 1.11 MG/DL 04/23/2017 2:14 PM CDT [facility] SODIUM S/P/B 133(L) 136 - 145 MMOL/L 04/23/2017 2:14 PM CDT [facility] POTASSIUM S/P/B 4.9 3.5 - 5.1 MMOL/L 04/23/2017 2:14 PM CDT [facility] CHLORIDE S/P/B 106 98 - 107 MMOL/L 04/23/2017 2:14 PM CDT [facility] CO2 9.0(LL) 22.0 - 29.0 MMOL/L 04/23/2017 2:14 PM CDT [facility] Comment:CRITICAL VALUECALLED TOHEATHER ON 3RD AT 1414READ BACK AND VERIFIED CALCIUM S/P/B 7.6(L) 8.4 - 10.2 MG/DL 04/23/2017 2:14 PM CDT [facility] EGFR NON-AFR. AMER. >60 >60 ML/MIN/1.7 3 M2 04/23/2017 2:14 PM CDT [facility] EGFR AFR. AMER. >60 >60 ML/MIN/1.7 3 M2 04/23/2017 2:14 PM CDT [facility] ANION GAP 18.0(H) 7 - 16 MMOL/L 04/23/2017 2:14 PM CDT [facility] 04/23/2017 1:30 PM CDT 04/23/2017 1:53 PM CDT us Generic Conversion Md MIR LABORATORY Final R esult [facility] [place] [address], * (ABNORMAL) GLUCOSE BLOOD, QNT (04/23/2017 12:19 PM CDT) Pathologist [facility] GLUCOSE POC 204(H) 70 - 99 MG/DL 04/24/2017 4:19 AM CDT [facility] ORDERS INTERFACE 04/23/2017 12:1 9 PM CDT 04/24/2017 4:19 AM CDT us Generic Conversion Md MIR LABORATORY Final R esult [facility] ORDERS INTERFACE US * (ABNORMAL) URINALYSIS WI REFLEX TO CULTURE (04/23/2017 11:15 AM CDT) COLOR (U) YELLOW 04/23/2017 11:29 AM CDT [facility] TRANSPARENCY CLEAR 04/23/2017 11:29 AM CDT [facility] SPECIFIC GRAVITY (U) 1.030(H) 1.000 - 1.025 04/23/2017 11:29 AM CDT [facility] Comment:EQUAL TO OR GREATER THAN U PH 5.5 5.0 - 8.0 04/23/2017 11:29 AM CDT [facility] LEUKOCYTES (U) NEGATIVE NEGATIVE 04/23/2017 11:29 AM CDT [facility] NITRITES NEGATIVE NEGATIVE 04/23/2017 11:29 AM CDT [facility] PROTEIN (U) TRACE(A) NEGATIVE 04/23/2017 11:29 AM CDT [facility] URINE GLUCOSE NEGATIVE NEGATIVE 04/23/2017 11:29 AM CDT [facility] KETONES MG/DL (U) 3+(A) NEGATIVE 04/23/2017 11:29 AM CDT [facility] UROBILINOGEN 0.2 <1.0 EU/DL 04/23/2017 11:29 AM CDT [facility] BLOOD (U) NEGATIVE NEGATIVE 04/23/2017 11:29 AM CDT [facility] WBC/HPF 0-5 0 - 5 /HPF 04/23/2017 11:29 AM CDT [facility] EPI/HPF MANY /LPF 04/23/2017 11:29 AM CDT [facility] BACTERIA (U) TRACE /HPF 04/23/2017 11:29 AM CDT [facility] MUCUS PRESENT 04/23/2017 11:29 AM CDT [facility] OTHER CASTS (U) HYALINE /LPF 7 11:29 AM CDT [facility] Comment:5-10 BILIRUBIN (U) NEGATIVE NEGATIVE 04/23/2017 11:29 AM CDT [facility] CULTURE & SENSITIVITY INDICATED? NOT INDICATED 04/23/2017 11:29 AM CDT [facility] OTHER (type in comments) 04/23/2017 11:15 AM CDT 04/23/2017 11:18 AM CDT Comment:URINE SPECIMEN~URINE SPECIMEN us Generic Conversion Md MIR URINE ORDERABLES Final Result Performing Organization Address [facility] de Phone Number [address] [address], * TEST URINE (04/23/2017 11:15 AM CDT) PREG TEST NEGATIVE 04/23/2017 11:24 AM CDT [facility] SPECIFIC GRAVITY (U) >1.030 04/23/2017 11:24 AM CDT [facility] URINE SPECIMEN / Unknown 04/23/2017 11:15 AM CDT 04/23/2017 11:18 AM CDT us Generic Conversion Md MIR URINE ORDERABLES Final Result Performing Organization Address [facility] de Phone Number [facility] [address] [place] [address], * (ABNORMAL) PHOSPHORUS, INORGANIC PHOSPHATE (04/23/2017 11:05 AM CDT) PHOSPHORUS 1.9(L) 2.5 - 4.9 MG/DL 04/23/2017 12:13 PM CDT [facility] SERUM OR PLASMA SPECIMEN / Unknown 04/23/2017 11:05 AM CDT 04/23/2017 11:50 AM CDT us Generic Conversion Md MIR LABORATORY Final R esult Performing Organization Address [facility] Co de Phone Number [facility] [address] [place] [address], * (ABNORMAL) MAGNESIUM (04/23/2017 11:05 AM CDT) MAGNESIUM 1.4(L) 1.6 - 2.6 MG/DL 04/23/2017 12:13 PM CDT [facility] SERUM OR PLASMA SPECIMEN / Unknown 04/23/2017 11:05 AM CDT 04/23/2017 11:50 AM CDT us Generic Conversion Md MIR LABORATORY Final R esult Performing Organization Address City/[facility]/ZIP Co de Phone Number [facility] [address] [place] [address], * (ABNORMAL) BETA-HYDROXYBUTYRATE (04/23/2017 11:05 AM CDT) BETA-HYDROXYBU TYRATE 5.7(H) 0.0 - 0.3 MMOL/L 04/23/2017 11:52 AM CDT [facility] SERUM OR PLASMA SPECIMEN / Unknown 04/23/2017 11:05 AM CDT 04/23/2017 11:50 AM CDT us Generic Conversion Md MIR LABORATORY Final R esult Performing Organization Address City/[facility]/ZIP Co de Phone Number [facility] [address] [place] [address], * (ABNORMAL) BASIC METABOLIC PANEL (04/23/2017 11:05 AM CDT) GLUCOSE 137(H) 70 - 99 MG/DL 04/23/2017 11:34 AM CDT [facility] BUN 16 7 - 19 MG/DL 04/23/2017 11:34 AM CDT [facility] CREATININE S/P/B 0.84 0.57 - 1.11 MG/DL 04/23/2017 11:34 AM CDT [facility] SODIUM S/P/B 135(L) 136 - 145 MMOL/L 04/23/2017 11:34 AM CDT [facility] POTASSIUM S/P/B 4.6 3.5 - 5.1 MMOL/L 04/23/2017 11:34 AM CDT [facility] CHLORIDE S/P/B 105 98 - 107 MMOL/L 04/23/2017 11:34 AM CDT [facility] CO2 14.0(L) 22.0 - 29.0 MMOL/L 04/23/2017 11:34 AM CDT [facility] CALCIUM S/P/B 8.0(L) 8.4 - 10.2 MG/DL 04/23/2017 11:34 AM CDT [facility] EGFR NON-AFR. AMER. >60 >60 ML/MIN/1.7 3 M2 04/23/2017 11:34 AM CDT [facility] EGFR AFR. AMER. >60 >60 ML/MIN/1.7 3 M2 04/23/2017 11:34 AM CDT [facility] ANION GAP 16.0 7 - 16 MMOL/L 04/23/2017 11:34 AM CDT [facility] 04/23/2017 11:0 5 AM CDT 04/23/2017 11:10 AM CDT us Generic Conversion Md MIR LABORATORY Final R esinscription [facility] health center [facility] [phone] * (ABNORMAL) GLUCOSE BLOOD, QNT (04/23/2017 10:20 AM CDT) GLUCOSE POC 156(H) 70 - 99 MG/DL 04/23/2017 10:22 AM CDT [facility] ORDERS INTERFACE 04/23/2017 10:2 0 AM CDT 04/23/2017 10:22 AM CDT us Generic Conversion Md MIR LABORATORY Final R esult [facility] ORDERS INTERFACE US * (ABNORMAL) Blood gas, venous (04/23/2017 9:30 AM CDT) O2 SAT VENOUS 51 40 - 70 % 04/23/2017 9:52 AM CDT [facility] PH VENOUS 7.24(L) 7.35 - 7.45 04/23/2017 9:52 AM CDT [facility] PCO2 35.9(L) 41.0 - 51.0 MMHG 04/23/2017 9:52 AM CDT [facility] PO2 VENOUS 28.0 20.0 - 40.0 MM HG 04/23/2017 9:52 AM CDT [facility] BASE DEFICIT VENOUS 11.2 MMOL/L 04/23/2017 9:52 AM CDT [facility] BICARB VENOUS 15.0(L) 22.0 - 29.0 MMOL/L 04/23/2017 9:52 AM CDT [facility] TCO2 16.1(L) 25.0 - 29.0 MMOL/L 04/23/2017 9:52 AM CDT [facility] LITER FLOW ROOM AIR 04/23/2017 9:34 AM CDT [facility] 04/23/2017 9:30 AM CDT 04/23/2017 9:34 AM CDT us Generic Conversion Md MIR LABORATORY Final R esult Performing Organization Address City/[facility]/ZIP Co de Phone Number [facility] [address] [place] [address], * (ABNORMAL) BETA-HYDROXYBUTYRATE (04/23/2017 8:35 AM CDT) BETA-HYDROXYBU TYRATE 5.6(H) 0.0 - 0.3 MMOL/L 04/23/2017 8:52 AM CDT [facility] SERUM OR PLASMA SPECIMEN / Unknown 04/23/2017 8:35 AM CDT 04/23/2017 8:47 AM CDT us Generic Conversion Md MIR LABORATORY Final R esult [facility] [address] [place] [address], * LIPASE (04/23/2017 8:35 AM CDT) LIPASE 8 8 - 78 UNITS/L 04/23/2017 9:31 AM CDT [facility] SERUM OR PLASMA SPECIMEN / Unknown 04/23/2017 8:35 AM CDT 04/23/2017 8:39 AM CDT us Generic Conversion Md MIR LABORATORY Final R esult Performing Organization Address City/[facility]/ZIP Co de Phone Number [facility] [address] [place] [address], * LACTIC ACID (04/23/2017 8:35 AM CDT) [facility] LACTIC ACID VENOUS 1.4 0.5 - 2.2 MMOL/L 04/23/2017 9:10 AM CDT [facility] PLASMA SPECIMEN / Unknown 04/23/2017 8:35 AM CDT 04/23/2017 8:39 AM CDT us Generic Conversion Md MIR LABORATORY Final R esinscription [facility] health center Performing Organization Address City/[facility]/ZIP Co de Phone Number [facility] [address] [place] [address], * (ABNORMAL) COMPREHENSIVE METABOLIC PANEL (04/23/2017 8:35 AM CDT) [facility] GLUCOSE 250(H) 70 - 99 MG/DL 04/23/2017 9:14 AM CDT [facility] BUN 17 7 - 19 MG/DL 04/23/2017 9:14 AM CDT [facility] CREATININE S/P/B 1.16(H) 0.57 - 1.11 MG/DL 04/23/2017 9:14 AM CDT [facility] SODIUM S/P/B 131(L) 136 - 145 MMOL/L 04/23/2017 9:14 AM CDT [facility] POTASSIUM S/P/B 3.9 3.5 - 5.1 MMOL/L 04/23/2017 9:14 AM [facility] CHLORIDE S/P/B 94(L) 98 - 107 MMOL/L 04/23/2017 9:14 AM [facility] CO2 14.0(L) 22.0 - 29.0 MMOL/L 04/23/2017 9:14 AM [facility] CALCIUM S/P/B 10.3(H) 8.4 - 10.2 MG/DL 04/23/2017 9:14 AM [facility] BILIRUBIN TOTAL S/P/B 1.2 0.2 - 1.2 MG/DL 04/23/2017 9:14 AM [facility] TOTAL PROTEIN S/P/B 9.1(H) 6.0 - 8.3 G/DL 04/23/2017 9:14 AM [facility] ALBUMIN S/P/B 4.9 3.5 - 5.2 G/DL 04/23/2017 9:31 AM [facility] AST 24 5 - 34 U/L 04/23/2017 9:14 AM [facility] ALT 26 0 - 55 U/L 04/23/2017 9:14 AM [facility] ALKALINE PHOSPHATASE S/P/B 116 50 - 136 U/L 04/23/2017 9:14 AM [facility] OSMOLALITY (CALC) 273(L) 275 - 300 MOSM/KG 04/23/2017 9:14 AM [facility] A/G RATIO 1.2 1.0 - 1.6 RATIO 04/23/2017 9:31 AM [facility] BUN CREATININE RATIO 14.7 12 - 20 04/23/2017 9:14 AM [facility] ANION GAP 23.0(H) 7 - 16 MMOL/L 04/23/2017 9:14 AM [facility] EGFR NON-AFR. AMER. 59(L) >60 ML/MIN/1.7 3 M2 04/23/2017 9:14 AM [facility] EGFR AFR. AMER. >60 >60 ML/MIN/1.7 3 M2 04/23/2017 9:14 AM CDT [facility] 04/23/2017 8:35 AM CDT 04/23/2017 8:39 AM CDT us Generic Conversion Md MIR LABORATORY Final R esult [facility] [address] [place] [address], * (ABNORMAL) CBC W/DIFF AUTOMATED (04/23/2017 8:35 AM CDT) WBC 10.3 4.5 - 10.8 x10'3/uL 04/23/2017 8:44 AM CDT [facility] RBC 5.09 4.10 - 5.40 x10'6/uL 04/23/2017 8:44 AM CDT [facility] HGB 15.5 12.0 - 16.0 G/DL 04/23/2017 8:44 AM CDT [facility] HCT 44.9 36.0 - 47.0 % 04/23/2017 8:44 AM CDT [facility] MCV 88.2 78.0 - 100.0 FL 04/23/2017 8:44 AM CDT [facility] MCH 30.5 27.0 - 31.0 PG 04/23/2017 8:44 AM CDT [facility] MCHC 34.5 33.0 - 36.0 G/DL 04/23/2017 8:44 AM CDT [facility] RDW 12.1 11.5 - 14.5 % 04/23/2017 8:44 AM CDT [facility] PLT 314 150 - 350 x10'3/uL 04/23/2017 8:44 AM CDT [facility] MPV 9.5 7.4 - 10.4 FL 04/23/2017 8:44 AM CDT [facility] SEG NEUTROPHILS 56.1 % 7 8:44 AM CDT [facility] LYMPHOCYTES 27.8 % 04/23/2017 8:44 AM CDT [facility] MONOCYTES 6.2 % 04/23/2017 8:44 AM CDT [facility] EOSINOPHILS 8.4 % 04/23/2017 8:44 AM CDT [facility] BASOPHILS 1.2 % 04/23/2017 8:44 AM CDT [facility] IMMATURE GRANS % 0.3 % 04/23/20 17 8:44 AM CDT [facility] NRBC 0.0 % 04/23/2017 8:44 AM CDT [facility] ABS. NEUTROPHILS 5.77 1.60 - 8.30 x10'3/uL 04/23/2017 8:44 AM CDT [facility] ABS. LYMPHOCYTES 2.86 0.80 - 4.70 x10'3/uL 04/23/2017 8:44 AM CDT [facility] ABS. MONOCYTES 0.64 0.00 - 1.50 x10'3/uL 04/23/2017 8:44 AM CDT [facility] ABS. EOSINOPHILS 0.86(H) 0.00 - 0.40 x10'3/uL 04/23/2017 8:44 AM CDT [facility] ABS. BASOPHILS 0.12 0.00 - 0.20 x10'3/uL 04/23/2017 8:44 AM CDT [facility] ABS. IMMATURE GRANULOCYTES 0.03 0.00 - 0.03 x10'3/uL 04/23/2017 8:44 AM CDT [facility] ABS. NUCLEATED RBC'S 0.00 0.00 x10'3/uL 04/23/2017 8:44 AM CDT [facility] OTHER (type in comments) 04/23/2017 8:35 AM CDT 04/23/2017 8:39 AM CDT Comment:WHOLE BLOOD SAMPLE us Generic Conversion Md MIR LABORATORY Final R esult [facility] [address] [place], [place] [address] [phone] * (ABNORMAL) GLUCOSE BLOOD, QNT (04/23/2017 8:20 AM CDT) GLUCOSE POC 188(H) 70 - 99 MG/DL 04/23/2017 8:22 AM CDT [facility] ORDERS INTERFACE 04/23/2017 8:20 AM CDT 04/23/2017 8:22 AM CDT us Generic Conversion Md MIR LABORATORY Final R esult [facility] ORDERS INTERFACE US documented in this encounter Visit Diagnoses Diagnosis Type 1 diabetes mellitus with ketoacidosis and without coma ([facility]/HCC HHS/HCC) Type I (juvenile type) diabetes mellitus with ketoacidosis, not stated as uncontrolled documented in this encounter
--- OUTSIDE RECORDS SUMMARY | 2024-08-03 02:11 | XMS_ITS | Encounter Summary ---
Author Organization [facility] Address [facility] [place], [place] [address] [place] [id number] Care Team Providers Care Manager Skilled Name Role Phone Unavailable Primary Care Provider Unavailabl e Encounter Details Date Type Department Care Team (Latest Contact Info) Description 11/28/2015 Abstract [facility] Social History Tobacco Use Types [...]
--- OUTSIDE RECORDS SUMMARY | 2024-08-03 02:11 | XMS_ITS | Encounter Summary ---
Author Organization [facility] Address [facility] [place] [address] [place] [address] Care Team Providers Care Legal Paraprofessional Name Role Phone Unavailable Primary Care Provider Unavailabl e Encounter Details Date Type Department Care Team (Late st Contact Info) Description 01/01/2018 Abstract [facility] [address] [place] [address] Sami Aguilera MD [address] [place] [id number] Social History Tobacco Use Types Packs/Day [...]
--- OUTSIDE RECORDS SUMMARY | 2024-08-03 02:11 | XMS_ITS | Encounter Summary ---
Author Organization [facility] Address [facility] [place] [address] [place] [address] Care Team Providers Care Sheet Cutting Operator Name Role Phone Unavailable Primary Care Provider Unavailabl e Encounter Details Date Type Department Care Team (Late st Contact Info) Description 08/07/2017 Abstract [facility] [address] [place] [address] Rigo Le MD [address] [place], [place] [address] Social History Tobacco Use Types Packs/Day Years [...] WOUND, W/GRAM STAIN Routine 08/07/2017 7:30 PM DEMO COORDINATOR CULTURE, BACTERIA, BLOOD STAT 08/07/2017 7:02 PM DEMO COORDINATOR BASIC METABOLIC PANEL STAT 08/07/2017 5:05 PM DEMO COORDINATOR CBC W/DIFF AUTOMATED STAT 08/07/2017 5:05 PM DEMO COORDINATOR documented in this encounter Results * CULTURE, WOUND, W/GRAM STAIN (08/07/2017 7:30 PM DEMO COORDINATOR) SPEC DESCRIPTION EAR 08/07/2017 7:28 PM DEMO COORDINATOR [facility] SPECIAL REQUESTS NO SPECIAL REQUEST 08/07/2017 7:28 PM DEMO COORDINATOR [facility] CULTURE RESULT MANYSTAPHYLOCOCCUS AUREUS 08/10/2017 10:10 AM DEMO COORDINATOR [facility] EAR SWAB SPECIMEN / Unknown 08/07/2017 7:30 PM DEMO COORDINATOR 08/07/2017 7:39 PM DEMO COORDINATOR Narrative Organism Antibiotic Method Susceptibility Unknown CLINDAMYCIN [...] MIR MICROBIOLOGY - GENERAL ORDERABLES Final Result [facility] [address] [place] [address], [id number] [facility]ly [facility], 1930[id number] [place] [address], * CULTURE, BACTERIA, BLOOD (08/07/2017 7:02 PM DEMO COORDINATOR) SPEC DESCRIPTION BLOOD 08/07/2017 6:46 PM DEMO COORDINATOR [facility] SPECIAL REQUESTS NO SPECIAL REQUEST 08/07/2017 6:46 PM DEMO COORDINATOR [facility] CULTURE RESULT NO GROWTH 5 DAYS 08/12/2017 6:45 AM DEMO COORDINATOR [facility] BLOOD SPECIMEN OBTAINED FOR BLOOD CULTURE / Unknown 08/07/2017 7:02 PM DEMO COORDINATOR 08/07/2017 7:07 PM DEMO COORDINATOR us Generic Conversion Md MIR MICROBIOLOGY - GENERAL ORDERABLES Final Result [facility] [address] [place] [address], * (ABNORMAL) CBC W/DIFF AUTOMATED (08/07/2017 5:05 PM DEMO COORDINATOR) WBC 10.3 4.5 - 10.8 x10'3/uL 08/07/2017 5:11 PM DEMO COORDINATOR [facility] RBC 3.67(L) 4.10 - 5.40 x10'6/uL 08/07/2017 5:11 PM DEMO COORDINATOR [facility] HGB 11.3(L) 12.0 - 16.0 G/DL 08/07/2017 5:11 PM DEMO COORDINATOR [facility] HCT 32.1(L) 36.0 - 47.0 % 08/07/2017 5:11 PM DEMO COORDINATOR [facility] MCV 87.5 78.0 - 100.0 FL 08/07/2017 5:11 PM DEMO COORDINATOR [facility] MCH 30.8 27.0 - 31.0 PG 08/07/2017 5:11 PM DEMO COORDINATOR [facility] MCHC 35.2 33.0 - 36.0 G/DL 08/07/2017 5:11 PM [facility] RDW 11.9 11.5 - 14.5 % 08/07/2017 5:11 PM DEMO COORDINATOR [facility] PLT 267 150 - 350 x10'3/uL 08/07/2017 5:11 PM DEMO COORDINATOR [facility] MPV 9.4 7.4 - 10.4 FL 08/07/2017 5:11 PM DEMO COORDINATOR [facility] SEG NEUTROPHILS 66.2 % 8 5:11 PM DEMO COORDINATOR [facility] LYMPHOCYTES 27.0 % 08/07/2017 5:11 PM DEMO COORDINATOR [facility] MONOCYTES 4.2 % 08/07/2017 5:11 PM DEMO COORDINATOR [facility] EOSINOPHILS 1.8 % 08/07/2017 5:11 PM [facility] BASOPHILS 0.6 % 08/07/2017 5:11 PM [facility] IMMATURE GRANS % 0.2 % 08/07/19 18 5:11 PM [facility] NRBC 0.0 % 08/07/2017 5:11 PM [facility] ABS. NEUTROPHILS 6.83 1.60 - 8.30 x10'3/uL 08/07/2017 5:11 PM [facility] ABS. LYMPHOCYTES 2.78 0.80 - 4.70 x10'3/uL 08/07/2017 5:11 PM [facility] ABS. MONOCYTES 0.43 0.00 - 1.50 x10'3/uL 08/07/2017 5:11 PM [facility] ABS. EOSINOPHILS 0.19 0.00 - 0.40 x10'3/uL 08/07/2017 5:11 PM [facility] ABS. BASOPHILS 0.06 0.00 - 0.20 x10'3/uL 08/07/2017 5:11 PM [facility] ABS. IMMATURE GRANULOCYTES 0.02 0.00 - 0.03 x10'3/uL 08/07/2017 5:11 PM [facility] ABS. NUCLEATED RBC'S 0.00 0.00 x10'3/uL 08/07/2017 5:11 PM [facility] OTHER (type in comments) 08/07/2017 5:05 PM DEMO COORDINATOR 08/07/2017 5:09 PM DEMO COORDINATOR Comment:WHOLE BLOOD SAMPLE us Generic Conversion Md MIR LABORATORY Final R esult [facility] [address] [place] [address], * (ABNORMAL) BASIC METABOLIC PANEL (08/07/2017 5:05 PM DEMO COORDINATOR) GLUCOSE 318(H) 70 - 99 MG/DL 08/07/2017 5:27 PM [facility] BUN 11 7 - 19 MG/DL 08/07/2017 5:27 PM [facility] CREATININE S/P/B 0.80 0.57 - 1.11 MG/DL 08/07/2017 5:27 PM [facility] SODIUM S/P/B 133(L) 136 - 145 MMOL/L 08/07/2017 5:27 PM [facility] POTASSIUM S/P/B 3.8 3.5 - 5.1 MMOL/L 08/07/2017 5:27 PM [facility] CHLORIDE S/P/B 101 98 - 107 MMOL/L 08/07/2017 5:27 PM [facility] CO2 24.0 22.0 - 29.0 MMOL/L 08/07/2017 5:27 PM [facility] CALCIUM S/P/B 9.0 8.4 - 10.2 MG/DL 08/07/2017 5:27 PM [facility] EGFR NON-AFR. AMER. >60 >60 ML/MIN/1.7 3 M2 08/07/2017 5:27 PM [facility] EGFR AFR. AMER. >60 >60 ML/MIN/1.7 3 M2 08/07/2017 5:27 PM [facility] ANION GAP 8.0 7 - 16 MMOL/L 08/07/2017 5:27 PM [facility] 08/07/2017 5:05 PM DEMO COORDINATOR 08/07/2017 5:09 PM DEMO COORDINATOR us Generic Conversion [facility] Final R esult [facility] [address] [place] [address], documented in this encounter Visit Diagnoses Diagnosis Other otitis externa, left ear documented in this encounter
--- OUTSIDE RECORDS SUMMARY | 2024-08-03 02:11 | XMS_ITS | Encounter Summary ---
Author Organization [facility] Address [facility] [facility] [place] [address] [place] [address] Care Team Providers Care Cardroom Drawing Runner Name Role Phone Unavailable Primary Care Provider Unavailabl e Encounter Details Date Type Department Care Team (Late st Contact Info) Description 04/08/2016 Abstract [facility] [address] [address] Social History Tobacco Use Types [...]
--- OUTSIDE RECORDS SUMMARY | 2024-08-03 02:11 | XMS_ITS | Encounter Summary ---
Author Organization [facility] Address [address] [facility] [place] [address] [place] [address] Care Team Providers Care Certified Substance Abuse Counselor Name Role Phone Unavailable Primary Care Provider Unavailabl e Encounter Details Date Type Department Care Team (Late st Contact Info) Description 11/28/2015 Abstract [facility] [address] [place] [address] Shane De La Rosa MD [address] [facility] [address] [place] [address] Social History Tobacco Use Types [...] diabetes mellitus with ketoacidosis and without coma ([facility]) Type I (juvenile type) diabetes mellitus with ketoacidosis, not stated as uncontrolled documented in this encounter
--- OUTSIDE RECORDS SUMMARY | 2024-08-03 02:11 | XMS_ITS | Encounter Summary ---
Author Organization [facility] Address [facility] [facility] [place], [place] [id number] [place] [id number] Care Team Providers Care Marketing Designer Name Role Phone Unavailable Primary Care Provider Unavailabl e Encounter Details Date Type Department Care Team (Latest Contact Info) Description 08/09/2017 Abstract [facility] Social History Tobacco Use Types [...]
--- OUTSIDE RECORDS SUMMARY | 2024-08-03 02:11 | XMS_ITS | Encounter Summary ---
Author Organization [facility] Address [facility] [place] [address] [place] [address] Care Team Providers Care Electrolysis Engineer Name Role Phone Unavailable Primary Care Provider Unavailabl e Encounter Details Date Type Department Care Team (Late st Contact Info) Description 08/07/2017 Abstract [facility] [address] [place] [address] Raz Washington Jr., MD [address] [place] [id number] Social History Tobacco Use Types Packs/Day Years [...]
--- OUTSIDE RECORDS SUMMARY | 2024-08-03 02:11 | XMS_ITS | Encounter Summary ---
Author Organization [facility] Address [facility] [place] [place] [address] [place] [address] Care Team Providers Care Project Asst Name Role Phone Unavailable Primary Care Provider Unavailabl e Encounter Details Date Type Department Care Team (Late st Contact Info) Description 09/02/2014 Abstract [place] [facility] [address] [facility] [place] [address] [place] [address] [facility] [address] [place] [address] Social History Tobacco Use Types Packs/Day [...]
--- OUTSIDE RECORDS SUMMARY | 2024-08-03 02:11 | XMS_ITS | Encounter Summary ---
Author Organization [facility] Address [facility]6 [facility] [place] [address] [place] [address] Care Team Providers Care Wall Worker Name Role Phone Unavailable Primary Care Provider Unavailabl e Encounter Details Date Type Department Care Team (Late st Contact Info) Description 06/22/2015 Abstract [place] [facility] [address] [place] [address] Richard Esquivel MD [address] [place] [phone] Social History Tobacco Use Types Packs/Day [...]
--- OUTSIDE RECORDS SUMMARY | 2024-08-03 02:11 | XMS_ITS | Encounter Summary ---
Author Organization [facility] Address [facility] [place] [address] [place] [address] Care Team Providers Care Sports Team Marketing Intern Name Role Phone Unavailable Primary Care Provider Unavailabl e Encounter Details Date Type Department Care Team (Late st Contact Info) Description 04/04/2018 Abstract [place] [facility] [address] [place] [address] Sami Aguilear MD [address] [place] [address] Social History Tobacco Use Types Packs/Day [...] URINE CLEAN CATCH 04/04/2018 7:[address] [facility] SPECIAL REQUESTS NO SPECIAL REQUEST 04/04/2018 7:[address] [facility] CULTURE RESULT >25,000 TO 50,000 CFU/mLESCHE RICHIA COLI 04/05/2018 9:51 PM CDT [facility] URINE SPECIMEN OBTAINED BY CLEAN CATCH [...] Unknown ERTAPENEM JASON (VITEK) Sensitive Unknown NITROFURANTOIN JASON (VITEK) Sensitive Unknown GENTAMICIN JASON (VITEK) [...] MIR MICROBIOLOGY - GENERAL ORDERABLES Final Result [facility] [address] [place] [address], [place] [phone] [facility] [address] [place] [address], * (ABNORMAL) URINALYSIS (04/04/2018 7:35 AM CDT) COLOR (U) BRIGHT 04/04/2018 7:[address] [facility] TRANSPARENCY CLOUDY 04/04/2018 7:[address] [facility] SPECIFIC GRAVITY (U) 1.010 1.000 - 1.025 04/04/2018 7:[address] [facility] U PH 7.0 5.0 - 8.0 04/04/2018 7:[address] [facility] LEUKOCYTES (U) TRACE(A) NEGATIVE 04/04/2018 7:[address] [facility] NITRITES POSITIVE(A) NEGATIVE 04/04/2018 7:[address] [facility] PROTEIN (U) 1+(A) NEGATIVE 04/04/2018 7:[address] [facility] URINE GLUCOSE 3+(A) NEGATIVE 04/04/2018 7:[address] [facility] KETONES MG/DL (U) NEGATIVE NEGATIVE 04/04/2018 7:[address] [facility] UROBILINOGEN 1.0(H) <1.0 EU/DL 04/04/2018 7:[address] [facility] BILIRUBIN (U) NEGATIVE NEGATIVE 04/04/2018 7:[address] [facility] BLOOD (U) TRACE(A) NEGATIVE 04/04/2018 7:[address] [facility] WBC/HPF 20-50(A) 0 - 5 /HPF 04/04/2018 7:[address] [facility] RBC/HPF 0-5 0 - 5 /HPF 04/04/2018 7:[address] [facility] EPI/HPF MANY /LPF 04/04/2018 7:[address] [facility] BACTERIA (U) 2+ /HPF 04/04/2018 7:[address] [facility] MUCUS PRESENT 04/04/2018 7:[address] [facility] COMMENT (U) FEW WHITE BLOOD CELL CLUMPS. 04/04/2018 7:[address] [facility] 04/04/2018 7:35 AM CDT 04/04/2018 7:42 AM CDT us Generic Conversion Md MIR URINE ORDERABLES Final Result Performing Organization Address [facility]/ZIP Co de Phone Number [facility] [address] [place] [address], [place] [phone] * TEST URINE (04/04/2018 7:35 AM CDT) PREG TEST NEGATIVE 04/04/2018 7:[address] [facility] SPECIFIC GRAVITY (U) 1.010 04/04/2018 7:[address] [facility] URINE SPECIMEN / Unknown 04/04/2018 7:35 AM CDT 04/04/2018 7:42 AM CDT us Generic Conversion Md MIR URINE ORDERABLES Final Result Performing Organization Address [facility] Co de Phone Number [facility] [address] [place] [address], [place] [phone] documented in this encounter Visit Diagnoses Diagnosis Acute bronchitis documented in this encounter
--- OUTSIDE RECORDS SUMMARY | 2024-08-03 02:11 | XMS_ITS | Encounter Summary ---
Author Organization [facility] Address [address] [facility] [place] [place] [address] [place] [address] Care Team Providers Care Sas Developer Name Role Phone Unavailable Primary Care Provider Unavailabl e Encounter Details Date Type Department Care Team (Late st Contact Info) Description 01/05/2017 Abstract [facility] [facility] [address] [place] [address] Cindy Moon MD [address] [place] [address] Social History Tobacco Use Types Packs/Day [...] URINE CLEAN CATCH 01/05/2017 9:15 AM CDT [facility] SPECIAL REQUESTS NO SPECIAL REQUEST 01/05/2017 9:15 AM CDT [facility] CULTURE RESULT FEW CONTAMINANTS 12/21 3:59 AM CDT [facility] URINE SPECIMEN OBTAINED BY CLEAN CATCH PROCEDURE / Unknown 01/05/2017 9:10 AM CDT 01/05/2017 9:17 AM CDT us Generic Conversion Md MIR MICROBIOLOGY - GENERAL ORDERABLES Final Result Performing Organization Address City/State/[facility] Co de Phone Number [facility] [address] [place] [address], [place] [phone] [facility] [address] [place] [address], [place] [phone] * (ABNORMAL) URINALYSIS (01/05/2017 9:10 AM CDT) COLOR (U) YELLOW 01/05/2017 9:32 AM CDT [facility] TRANSPARENCY HAZY 01/05/2017 9:32 AM CDT [facility] SPECIFIC GRAVITY (U) 1.025 1.000 - 1.025 01/05/2017 9:32 AM CDT [facility] U PH 6.0 5.0 - 8.0 01/05/2017 9:32 AM CDT [facility] LEUKOCYTES (U) NEGATIVE NEGATIVE 01/05/2017 9:32 AM CDT [facility] NITRITES NEGATIVE NEGATIVE 01/05/2017 9:32 AM CDT [facility] PROTEIN (U) TRACE(A) NEGATIVE 01/05/2017 9:32 AM CDT [facility] URINE GLUCOSE 2+(A) NEGATIVE 01/05/2017 9:32 AM CDT [facility] KETONES MG/DL (U) TRACE(A) NEGATIVE 01/05/2017 9:32 AM CDT [facility] UROBILINOGEN 0.2 <1.0 EU/DL 01/05/2017 9:32 AM CDT [facility] BILIRUBIN (U) NEGATIVE NEGATIVE 01/05/2017 9:32 AM CDT [facility] BLOOD (U) NEGATIVE NEGATIVE 01/05/2017 9:32 AM CDT [facility] WBC/HPF 5-10(A) 0 - 5 /HPF 01/05/2017 9:32 AM CDT [facility] RBC/HPF 0-5 0 - 5 /HPF 01/05/2017 9:32 AM CDT [facility] EPI/HPF MANY /LPF 01/05/2017 9:32 AM CDT [facility] MUCUS PRESENT 01/05/2017 9:32 AM CDT [facility] 01/05/2017 9:10 AM CDT 01/05/2017 9:17 AM CDT us Generic Conversion Md MIR URINE ORDERABLES Final Result [facility] [address] [place] [address], * Blood gas, venous (01/05/2017 9:07 AM CDT) O2 SAT VENOUS 51 40 - 70 % 01/05/2017 9:22 AM CDT [facility] PH VENOUS 7.39 7.35 - 7.45 01/05/2017 9:22 AM CDT [facility] PCO2 45.6 41.0 - 51.0 MMHG 01/05/2017 9:22 AM CDT [facility] PO2 VENOUS 30.0 20.0 - 40.0 MM HG 01/05/2017 9:22 AM CDT [facility] VENOUS BASE EXCESS 1.9 MMOL/L 01/05/2017 9:22 AM CDT [facility] BICARB VENOUS 26.9 22.0 - 29.0 MMOL/L 01/05/2017 9:22 AM CDT [facility] TCO2 28.3 25.0 - 29.0 MMOL/L 01/05/2017 9:22 AM CDT [facility] LITER FLOW ROOM AIR 01/05/2017 9:13 AM CDT [facility] 01/05/2017 9:07 AM CDT 01/05/2017 9:13 AM CDT us Generic Conversion Md MIR LABORATORY Final R eslucina Performing Organization Address City/[facility]/ZIP Co de Phone Number [facility] [address] [place] [address], [place] [phone] * PROTIME/INR, VENOUS (01/05/2017 9:07 AM CDT) PROTIME 12.0 10.5 - 12.9 SEC 01/05/2017 9:22 AM CDT [facility] INR 1.0 0.9 - 1.1 01/05/2017 9:22 AM CDT [facility] 01/05/2017 9:07 AM CDT 01/05/2017 9:13 AM CDT us Generic Conversion Md MIR LABORATORY Final R eslucina [facility] [address] [place] [address], * CBC W/DIFF AUTOMATED (01/05/2017 9:07 AM CDT) WBC 7.4 4.5 - 10.8 x10'3/uL 01/05/2017 9:15 AM CDT [facility] RBC 4.76 4.10 - 5.40 x10'6/uL 01/05/2017 9:15 AM CDT [facility] HGB 14.6 12.0 - 16.0 G/DL 01/05/2017 9:15 AM CDT [facility] HCT 40.8 36.0 - 47.0 % 01/05/2017 9:15 AM CDT [facility] MCV 85.7 78.0 - 100.0 FL 01/05/2017 9:15 AM CDT [facility] MCH 30.7 27.0 - 31.0 PG 01/05/2017 9:15 AM CDT [facility] MCHC 35.8 33.0 - 36.0 G/DL 01/05/2017 9:15 AM CDT [facility] RDW 11.8 11.5 - 14.5 % 01/05/2017 9:15 AM CDT [facility] PLT 304 150 - 350 x10'3/uL 01/05/2017 9:15 AM CDT [facility] MPV 9.8 7.4 - 10.4 FL 01/05/2017 9:15 AM CDT [facility] SEG NEUTROPHILS 60.2 % 7 9:15 AM CDT [facility] LYMPHOCYTES 31.4 % 01/05/2017 9:15 AM CDT [facility] MONOCYTES 5.9 % 01/05/2017 9:15 AM CDT [facility] EOSINOPHILS 1.9 % 01/05/2017 9:15 AM CDT [facility] BASOPHILS 0.5 % 01/05/2017 9:15 AM CDT [facility] IMMATURE GRANS % 0.1 % 01/06/20 17 9:15 AM CDT [facility] NRBC 0.0 % 01/05/2017 9:15 AM CDT [facility] ABS. NEUTROPHILS 4.45 1.60 - 8.30 x10'3/uL 01/05/2017 9:15 AM CDT [facility] ABS. LYMPHOCYTES 2.32 0.80 - 4.70 x10'3/uL 01/05/2017 9:15 AM CDT [facility] ABS. MONOCYTES 0.44 0.00 - 1.50 x10'3/uL 01/05/2017 9:15 AM CDT [facility] ABS. EOSINOPHILS 0.14 0.00 - 0.40 x10'3/uL 01/05/2017 9:15 AM CDT [facility] ABS. BASOPHILS 0.04 0.00 - 0.20 x10'3/uL 01/05/2017 9:15 AM CDT [facility] ABS. IMMATURE GRANULOCYTES 0.01 0.00 - 0.03 x10'3/uL 01/05/2017 9:15 AM CDT [facility] ABS. NUCLEATED RBC'S 0.00 0.00 x10'3/uL 01/05/2017 9:15 AM CDT [facility] OTHER (type in comments) 01/05/2017 9:07 AM CDT 01/05/2017 9:13 AM CDT Comment:WHOLE BLOOD SAMPLE us Generic Conversion Md MIR LABORATORY Final R esult [facility] [address] [place] [address], * (ABNORMAL) BASIC METABOLIC PANEL (01/05/2017 9:07 AM CDT) GLUCOSE 174(H) 70 - 99 MG/DL 01/05/2017 9:33 AM CDT [facility] BUN 13 7 - 19 MG/DL 01/05/2017 9:33 AM CDT [facility] CREATININE S/P/B 0.81 0.57 - 1.11 MG/DL 01/05/2017 9:33 AM CDT [facility] SODIUM S/P/B 142 136 - 145 MMOL/L 01/05/2017 9:33 AM CDT [facility] POTASSIUM S/P/B 3.9 3.5 - 5.1 MMOL/L 01/05/2017 9:33 AM CDT [facility] CHLORIDE S/P/B 102 98 - 107 MMOL/L 01/05/2017 9:33 AM CDT [facility] CO2 27.0 22.0 - 29.0 MMOL/L 01/05/2017 9:33 AM CDT [facility] CALCIUM S/P/B 10.0 8.4 - 10.2 MG/DL 01/05/2017 9:33 AM CDT [facility] EGFR NON-AFR. AMER. >60 >60 ML/MIN/1.7 3 M2 01/05/2017 9:33 AM CDT [facility] EGFR AFR. AMER. >60 >60 ML/MIN/1.7 3 M2 01/05/2017 9:33 AM CDT [facility] ANION GAP 13.0 7 - 16 MMOL/L 01/05/2017 9:33 AM CDT [facility] 01/05/2017 9:07 AM CDT 01/05/2017 9:13 AM CDT us Generic Conversion Md MIR [place]ORATORY [place] [address], * (ABNORMAL) BETA-HYDROXYBUTYRATE (01/05/2017 9:07 AM CDT) BETA-HYDROXYBU TYRATE 0.9(H) 0.0 - 0.3 MMOL/L 01/05/2017 9:17 AM CDT [facility] SERUM OR PLASMA SPECIMEN / Unknown 01/05/2017 9:07 AM CDT 01/05/2017 9:13 AM CDT us Generic Conversion Md MIR LABORATORY Final R esult [facility] [address] [place], [place] [address] [place] [address], * (ABNORMAL) POCT glucose (01/05/2017 8:42 AM CDT) GLUCOSE POC 176(H) 70 - 99 MG/DL 01/05/2017 9:12 PM CDT [facility] ORDERS INTERFACE 01/05/2017 8:42 AM CDT 01/05/2017 9:11 PM CDT us Generic Conversion Md MIR POCT ORDERABLES - DEVIC E Final Result [facility] ORDERS INTERFACE US documented in this encounter Visit Diagnoses Diagnosis Gastritis without bleeding Unspecified gastritis and gastroduodenitis without mention of hemorrhage documented in this encounter
--- OUTSIDE RECORDS SUMMARY | 2024-08-03 02:11 | XMS_ITS | Encounter Summary ---
Author Organization [facility] Address [facility] access hospital6 [facility] [place] [address] [place] [address] Care Team Providers Care Sterile Processing Manager Name Role Phone Unavailable Primary Care Provider Unavailabl e Encounter Details Date Type Department Care Team (Late st Contact Info) Description 01/28/2016 Abstract [place] [facility] [address] [place] [address] Social History Tobacco Use Types [...]
--- OUTSIDE RECORDS SUMMARY | 2024-08-03 02:11 | XMS_ITS | Encounter Summary ---
Author Organization [facility] Address [facility]6 [facility] [place] [address] [place] [address] Care Team Providers Care Covered Buckle Assembler Name Role Phone Unavailable Primary Care Provider Unavailabl e Encounter Details Date Type Department Care Team (Late st Contact Info) Description 10/15/2016 Abstract [place] [facility] [address] [address] Social History Tobacco Use Types Packs/Day Years [...]
--- OUTSIDE RECORDS SUMMARY | 2024-08-03 02:12 | XMS_ITS | Encounter Summary ---
Author Organization [facility] Address [facility]6 [facility] [place] [address] [place] [address] Care Team Providers Care Cupola Worker Name Role Phone Unavailable Primary Care Provider Unavailabl e Encounter Details Date Type Department Care Team (Late st Contact Info) Description 11/17/2010 Abstract [facility] [address] [place] [address] Social History Tobacco Use Types Packs/Day Years [...]
--- OUTSIDE RECORDS SUMMARY | 2024-08-03 02:12 | XMS_ITS | Encounter Summary ---
Author Organization [facility] Address [facility]6 [facility] [place] [place] [address] [place] [address] Care Team Providers Care Director Of Religious Life Name Role Phone Unavailable Primary Care Provider Unavailabl e Encounter Details Date Type Department Care Team (Late st Contact Info) Description 05/10/2004 Abstract [facility] [address] [place] [address] Manuel Kwok MD [address] [place] [address] Social History Tobacco Use Types [...]
--- OUTSIDE RECORDS SUMMARY | 2024-08-03 02:12 | XMS_ITS | Encounter Summary ---
Author Organization [facility] Address [facility]6 [facility] [place] [address] [place] [address] Care Team Providers Care Tray Room Worker Name Role Phone Unavailable Primary Care Provider Unavailabl e Encounter Details Date Type Department Care Team (Late st Contact Info) Description 03/25/[address] [facility] [address] [place] [address] Karen Jalloh MD [address] [place] [address] Social History Tobacco Use Types [...]
--- OUTSIDE RECORDS SUMMARY | 2024-08-03 02:12 | XMS_ITS | Encounter Summary ---
Author Organization [facility] Address [address] [facility] [place] [address] [place] [address] Care Team Providers Care Design Engineer Name Role Phone Unavailable Primary Care Provider Unavailabl e Encounter Details Date Type Department Care Team (Late st Contact Info) Description 01/06/2008 Abstract [place] [facility] [address] [place] [address] Carlos Rodriguez, DO Social History Tobacco Use [...]
--- OUTSIDE RECORDS SUMMARY | 2024-08-03 02:12 | XMS_ITS | Encounter Summary ---
Author Organization [facility] Address [facility]6 [facility] [place] [address] [place] [address] Care Team Providers Care Lab Tech Name Role Phone Unavailable Primary Care Provider Unavailabl e Encounter Details Date Type Department Care Team (Late st Contact Info) Description 03/10/[address] [facility] [address] [facility] [place] [place] [address] Timothy Graham MD [address] [place] [address] Social History Tobacco Use Types [...]
--- OUTSIDE RECORDS SUMMARY | 2024-08-03 02:12 | XMS_ITS | Encounter Summary ---
Author Organization [facility] Address [facility]6 [facility] [place] [address] [place] [address] Care Team Providers Care Health Promotion Educator Name Role Phone Unavailable Primary Care Provider Unavailabl e Encounter Details Date Type Department Care Team (Late st Contact Info) Description 09/26/2011 Abstract [facility] [address] [place], [place] [address] Ed Jasso MD [address] [place] [address] Social History Tobacco Use Types [...] I diabetes mellitus with ketoacidosis, uncontrolled (CMS/HCC [facility]) Type I (juvenile type) diabetes mellitus with ketoacidosis, uncontrolled documented in this encounter
--- OUTSIDE RECORDS SUMMARY | 2024-08-03 02:12 | XMS_ITS | Encounter Summary ---
Author Organization [facility] Address [address] [facility] [place] [address] [place] [address] Care Team Providers Care Certified Master Safecracker Name Role Phone Unavailable Primary Care Provider Unavailabl e Encounter Details Date Type Department Care Team (Late st Contact Info) Description 11/25/2007 Abstract [facility] [address] [place] [address] Mireya Cruz MD [address] [place] [address] Social History Tobacco Use Types [...]
--- OUTSIDE RECORDS SUMMARY | 2024-08-03 02:12 | XMS_ITS | Encounter Summary ---
Author Organization [facility] Address [facility] [place] [address] [place] [address] Care Team Providers Care Assembly Machine Set Up Mechanic Name Role Phone Unavailable Primary Care Provider Unavailabl e Encounter Details Date Type Department Care Team (Late st Contact Info) Description 04/23/2012 Abstract [facility] [address] [place], [place] [id number] Manuel Kwok MD [address] [place] [address] Social History Tobacco Use Types [...]
--- OUTSIDE RECORDS SUMMARY | 2024-08-03 02:12 | XMS_ITS | Encounter Summary ---
Author Organization [facility] Address [facility]6 [facility] [place] [address] [place] [address] Care Team Providers Care Editor School Photograph Name Role Phone Unavailable Primary Care Provider Unavailabl e Encounter Details Date Type Department Care Team (Late st Contact Info) Description 11/02/[address] [place], [place] [address] Karen Jalloh MD [address] [place] [phone] Social History Tobacco Use Types Packs/Day Years [...]
--- OUTSIDE RECORDS SUMMARY | 2024-08-03 02:12 | XMS_ITS | Encounter Summary ---
Author Organization [facility] Address [address] [facility] [place] [address] [place] [address] Care Team Providers Care Mathematics Department Chair Name Role Phone Unavailable Primary Care Provider Unavailabl e Encounter Details Date Type Department Care Team (Late st Contact Info) Description 11/22/2010 Abstract [facility] [address] [place] [address] Raz Amador MD [address] [place] [address] Social History Tobacco Use Types [...]
--- OUTSIDE RECORDS SUMMARY | 2024-08-03 02:12 | XMS_ITS | Encounter Summary ---
Author Organization [facility] Address [facility]6 [facility] [place] [address] [place] [address] Care Team Providers Care Freight Claim Investigator Name Role Phone Unavailable Primary Care Provider Unavailabl e Encounter Details Date Type Department Care Team (Late st Contact Info) Description 05/11/[address] [facility] [address] [place] [address] Karen Jalloh MD [address] [place] [address] Social History Tobacco Use Types [...]
--- OUTSIDE RECORDS SUMMARY | 2024-08-03 02:12 | XMS_ITS | Encounter Summary ---
Author Organization [facility] Address [facility] [place] [address] [place] [address] Care Team Providers Care Farm Implement Engine Mechanic Name Role Phone Unavailable Primary Care Provider Unavailabl e Encounter Details Date Type Department Care Team (Late st Contact Info) Description 05/31/[address] [facility] [address] [place] [address] Karen Jalloh MD [address] [place] [address] Social History Tobacco Use Types [...]
--- OUTSIDE RECORDS SUMMARY | 2024-08-03 02:12 | XMS_ITS | Encounter Summary ---
Author Organization [facility] Address [address] [facility] [place] [address] [place] [address] Care Team Providers Care Senior Research Consultant Name Role Phone Unavailable Primary Care Provider Unavailabl e Encounter Details Date Type Department Care Team (Late st Contact Info) Description 05/09/2010 Abstract [facility] [address] [place], [place] [address] Sana Brantley MD [address] [place] [address] Social History Tobacco Use Types [...] Encounter for supervision of normal in multigravida ([facility]) documented in this encounter
--- OUTSIDE RECORDS SUMMARY | 2024-08-03 02:12 | XMS_ITS | Encounter Summary ---
Author Organization [facility] Address [facility]6 [facility] [place] [address] [place] [address] Care Team Providers Care Supervisor Alteration Workroom Name Role Phone Unavailable Primary Care Provider Unavailabl e Encounter Details Date Type Department Care Team (Late st Contact Info) Description 12/27/2005 Abstract [facility] [address] [place] [address] Manuel Kwok MD [address] [place] [address] Social History Tobacco Use Types [...]
--- OUTSIDE RECORDS SUMMARY | 2024-08-03 02:12 | XMS_ITS | Encounter Summary ---
Author Organization [facility] Address [address] [facility] [place] [address] [place] [address] Care Team Providers Care Cat Sitter Name Role Phone Unavailable Primary Care Provider Unavailabl e Encounter Details Date Type Department Care Team (Late st Contact Info) Description 06/22/2010 Abstract [facility] [address] [place] [address] Karlo Lopez MD [address] [place] [address] Social History Tobacco Use Types [...]
--- OUTSIDE RECORDS SUMMARY | 2024-08-03 02:12 | XMS_ITS | Encounter Summary ---
Author Organization [facility] Address [facility] [place] [address] [place] [address] Care Team Providers Care Vice President Of Talent Management Name Role Phone Unavailable Primary Care Provider Unavailabl e Encounter Details Date Type Department Care Team (Late st Contact Info) Description 05/02/[address] [facility] [address] [place] [address] Karen Jalloh MD [address] [place] [address] Social History Tobacco Use Types [...]
--- OUTSIDE RECORDS SUMMARY | 2024-08-03 02:12 | XMS_ITS | Encounter Summary ---
Author Organization [facility] Address [facility] [place] [address] [place] [address] Care Team Providers Care Cash Shortage Investigator Name Role Phone Unavailable Primary Care Provider Unavailabl e Encounter Details Date Type Department Care Team (Late st Contact Info) Description 05/15/2012 Abstract [facility] [address] [place] [address] Isaias Saenz MD [address] [place] [address] Social History Tobacco Use Types [...]
--- OUTSIDE RECORDS SUMMARY | 2024-08-03 02:12 | XMS_ITS | Encounter Summary ---
Author Organization [facility] Address [facility] [place] [address] [place] [address] Care Team Providers Care Property Investor Name Role Phone Unavailable Primary Care Provider Unavailabl e Encounter Details Date Type Department Care Team (Late st Contact Info) Description 10/05/1995 Abstract [facility] [address] [place] [address] , Generic Conversion, Social History [...]
--- OUTSIDE RECORDS SUMMARY | 2024-08-03 02:12 | XMS_ITS | Encounter Summary ---
Author Organization [facility] Address [facility] [place] [address] [place] [address] Care Team Providers Care Baggage Agent Supervisor Name Role Phone Unavailable Primary Care Provider Unavailabl e Encounter Details Date Type Department Care Team (Late st Contact Info) Description 02/23/1997 Abstract [facility] [address] [place] [address] , Generic Conversion, Social History [...]
--- OUTSIDE RECORDS SUMMARY | 2024-08-03 02:12 | XMS_ITS | Encounter Summary ---
Author Organization [facility] Address [facility] [place] [address] [place] [address] Care Team Providers Care Instructional Writer Name Role Phone Unavailable Primary Care Provider Unavailabl e Encounter Details Date Type Department Care Team (Late st Contact Info) Description 11/05/[address] [facility] [address] [place] [address] Humble Wills MD [address] [place] [address] Social History Tobacco Use Types [...]
--- OUTSIDE RECORDS SUMMARY | 2024-08-03 02:12 | XMS_ITS | Encounter Summary ---
Author Organization [facility] Address [facility] [address] [place] [address] Care Team Providers Care Arcgis Developer Name Role Phone Unavailable Primary Care Provider Unavailabl e Encounter Details Date Type Department Care Team (Late st Contact Info) Description 07/11/2010 Abstract [facility] [address] [place] [address] Chuy Ponce MD [address] [place] [phone] Social History Tobacco Use Types Packs/Day Years [...]
--- OUTSIDE RECORDS SUMMARY | 2024-08-03 02:12 | XMS_ITS | Encounter Summary ---
Author Organization [facility] Address [facility] [place] [address] [place] [address] Care Team Providers Care Clinical Rn Name Role Phone Unavailable Primary Care Provider Unavailabl e Encounter Details Date Type Department Care Team (Late st Contact Info) Description 08/16/1998 Abstract [facility] [address] [place] [address] , Generic Conversion, Social History [...]
--- OUTSIDE RECORDS SUMMARY | 2024-08-03 02:12 | XMS_ITS | Encounter Summary ---
Author Organization [facility] Address [facility] [place] [address] [place] [address] Care Team Providers Care Combat Control Manager Name Role Phone Unavailable Primary Care Provider Unavailabl e Encounter Details Date Type Department Care Team (Late st Contact Info) Description 05/04/[address] [address] [place] [address] Karen Jalloh MD [address] [place] [address] Social History Tobacco Use Types [...]
--- OUTSIDE RECORDS SUMMARY | 2024-08-03 02:12 | XMS_ITS | Encounter Summary ---
Author Organization [facility] Address [facility]6 [facility] [place] [address] [place] [address] Care Team Providers Care Cone Chocolate Dipper Name Role Phone Unavailable Primary Care Provider Unavailabl e Encounter Details Date Type Department Care Team (Late st Contact Info) Description 02/22/2014 Abstract [facility] [address] [place] [address] Jose Delgado MD [address] [place] [address] Social History Tobacco Use Types [...]
--- OUTSIDE RECORDS SUMMARY | 2024-08-03 02:12 | XMS_ITS | Encounter Summary ---
Author Organization [facility] Address [facility]6 [facility] [place] [address] [place] [address] Care Team Providers Care Arterial Embalmer Name Role Phone Unavailable Primary Care Provider Unavailabl e Encounter Details Date Type Department Care Team (Late st Contact Info) Description 10/01/2007 Abstract [facility] [address] [place] [address] Chuy Ponce MD [address] [place] [phone] Social History Tobacco Use Types Packs/Day Years [...]
--- OUTSIDE RECORDS SUMMARY | 2024-08-03 02:12 | XMS_ITS | Encounter Summary ---
Author Organization [facility] Address [facility] [place] [address] [place] [address] Care Team Providers Care Single Needle Operator Name Role Phone Unavailable Primary Care Provider Unavailabl e Encounter Details Date Type Department Care Team (Late st Contact Info) Description 11/21/2007 Abstract [facility] [address] [place] [address] Karen Jalloh MD [address] [place] [address] Social History Tobacco Use Types [...]
--- OUTSIDE RECORDS SUMMARY | 2024-08-03 02:12 | XMS_ITS | Encounter Summary ---
Author Organization [facility] Address [facility] [place] [address] [place] [address] Care Team Providers Care Pigeon Fancier Name Role Phone Unavailable Primary Care Provider Unavailabl e Encounter Details Date Type Department Care Team (Late st Contact Info) Description 11/19/2011 Abstract [facility] [address] [facility] [place] [address] Bigg Riley MD [address] [place], [place] [address] Social History Tobacco Use Types Packs/Day Years [...]
--- OUTSIDE RECORDS SUMMARY | 2024-08-03 02:12 | XMS_ITS | Encounter Summary ---
Author Organization [facility] Address [facility] [place] [address] [place] [address] Care Team Providers Care Hairspring Ii Inspector Name Role Phone Unavailable Primary Care Provider Unavailabl e Encounter Details Date Type Department Care Team (Late st Contact Info) Description 06/19/2010 Abstract [facility] [facility] [address] [facility] [facility] [place] [address] Social History Tobacco Use Types [...]
--- OUTSIDE RECORDS SUMMARY | 2024-08-03 02:12 | XMS_ITS | Encounter Summary ---
Author Organization [facility] Address [facility]6 [facility] [place] [address] [place] [address] Care Team Providers Care Dry Molder Name Role Phone Unavailable Primary Care Provider Unavailabl e Encounter Details Date Type Department Care Team (Late st Contact Info) Description 10/04/2010 Abstract [facility] [address] [place] [address] Social History Tobacco Use Types Packs/Day Years [...]
--- OUTSIDE RECORDS SUMMARY | 2024-08-03 02:12 | XMS_ITS | Encounter Summary ---
Author Organization [facility] Address [facility] [place] [facility] [facility] [place] [address] [place] [address] Care Team Providers Care Continuity Coordinator Name Role Phone Unavailable Primary Care Provider Unavailabl e Encounter Details Date Type Department Care Team (Late st Contact Info) Description 02/02/2013 Abstract [facility] [address] [facility] [facility] [place] [address] Social History Tobacco Use Types Packs/Day Years [...]
--- OUTSIDE RECORDS SUMMARY | 2024-08-03 02:12 | XMS_ITS | Encounter Summary ---
Author Organization [facility] Address On [facility] of [facility] [place] [address] [place] [address] Care Team Providers Care Nursing Program Director Name Role Phone Unavailable Primary Care Provider Unavailabl e Encounter Details Date Type Department Care Team (Late st Contact Info) Description 01/04/2012 Abstract [facility] [address] [place], [place] [address] Manuel Kwok MD [address] [place] [address] Social History Tobacco Use Types [...]
--- OUTSIDE RECORDS SUMMARY | 2024-08-03 02:12 | XMS_ITS | Encounter Summary ---
Author Organization [facility] Address [facility] [place] [address] [place] [address] Care Team Providers Care Industrial Spray Painter Name Role Phone Unavailable Primary Care Provider Unavailabl e Encounter Details Date Type Department Care Team (Late st Contact Info) Description 01/21/2002 Abstract [facility] [address] [place] [address] , Generic Conversion, Social History [...]
--- OUTSIDE RECORDS SUMMARY | 2024-08-03 02:12 | XMS_ITS | Encounter Summary ---
Author Organization [facility] Address [address] [facility] [place] [address] [place] [address] Care Team Providers Care Truck Hopper Name Role Phone Unavailable Primary Care Provider Unavailabl e Encounter Details Date Type Department Care Team (Late st Contact Info) Description 08/25/2013 Abstract [facility] [address] [place] [address] Bigg Riley MD [address] [place], [place] [address] Social History Tobacco Use Types Packs/Day Years [...]
--- OUTSIDE RECORDS SUMMARY | 2024-08-03 02:12 | XMS_ITS | Encounter Summary ---
Author Organization [facility] Address [facility] [place], [place] [address] [place] [address] Care Team Providers Care Emergency Room Physician Name Role Phone Unavailable Primary Care Provider Unavailabl e Encounter Details Date Type Department Care Team (Latest Contact Info) Description 12/13/2012 Abstract [facility] Social History [...]
--- OUTSIDE RECORDS SUMMARY | 2024-08-03 02:12 | XMS_ITS | Encounter Summary ---
Author Organization [facility] Address [facility] [place] [place] [address] [place] [address] Care Team Providers Care Spinning Bath Person Name Role Phone Unavailable Primary Care Provider Unavailabl e Encounter Details Date Type Department Care Team (Late st Contact Info) Description 02/09/2011 Abstract [facility] [address] [place] [address] Social History Tobacco Use Types Packs/Day Years [...]
--- OUTSIDE RECORDS SUMMARY | 2024-08-03 02:12 | XMS_ITS | Encounter Summary ---
Author Organization [facility] Address [address] [facility] [place] [address] [place] [address] Care Team Providers Care Horticultural Specialty Grower Inside Name Role Phone Unavailable Primary Care Provider Unavailabl e Encounter Details Date Type Department Care Team (Late st Contact Info) Description 11/15/[address] [address] [facility] [facility] [address] [facility] [address] [place] [address] Chuy Jimenez MD [address] [place] [address] Social History Tobacco Use Types [...]
--- OUTSIDE RECORDS SUMMARY | 2024-08-03 02:12 | XMS_ITS | Encounter Summary ---
Author Organization [facility] Address [facility]6 [place] [address] [place] [address] Care Team Providers Care Machine Joint Cutter Name Role Phone Unavailable Primary Care Provider Unavailabl e Encounter Details Date Type Department Care Team (Late st Contact Info) Description 11/03/[address] [address] [place] [address] Adolfo Logan MD [address] [place] [address] Social History Tobacco Use Types [...]
--- OUTSIDE RECORDS SUMMARY | 2024-08-03 02:12 | XMS_ITS | Encounter Summary ---
Author Organization [facility] Address [facility] [place] [address] [place] [address] Care Team Providers Care Automatic Spreader Operator Name Role Phone Unavailable Primary Care Provider Unavailabl e Encounter Details Date Type Department Care Team (Late st Contact Info) Description 05/25/[address] [facility] [address] [place] [address] Social History Tobacco Use Types Packs/Day Years [...]
--- OUTSIDE RECORDS SUMMARY | 2024-08-03 02:12 | XMS_ITS | Encounter Summary ---
Author Organization [facility] Address [facility]6 [facility] [place] [address] [place] [address] Care Team Providers Care Panman Name Role Phone Unavailable Primary Care Provider Unavailabl e Encounter Details Date Type Department Care Team (Late st Contact Info) Description 06/06/2013 Abstract [facility] [address] [facility] [address] [place] [address] Kaleb Hernandez Jr., MD [address] [place] [address] Social History Tobacco Use Types [...]
--- OUTSIDE RECORDS SUMMARY | 2024-08-03 02:12 | XMS_ITS | Encounter Summary ---
Author Organization [facility] Address [facility] [place] [address] [place] [address] Care Team Providers Care Injection Maintenance Technician Name Role Phone Unavailable Primary Care Provider Unavailabl e Encounter Details Date Type Department Care Team (Late st Contact Info) Description 04/14/2010 Abstract [facility] [address] [place] [address] Social History Tobacco Use Types Packs/Day Years [...]
--- OUTSIDE RECORDS SUMMARY | 2024-08-03 02:12 | XMS_ITS | Encounter Summary ---
Author Organization [facility] Address [facility]6 [facility] [place] [address] [place] [address] Care Team Providers Care Wet Wheeler Name Role Phone Unavailable Primary Care Provider Unavailabl e Encounter Details Date Type Department Care Team (Late st Contact Info) Description 05/04/[address] [address] [place] [address] Karen Jalloh MD [address] [place] [address] Social History Tobacco Use Types [...]
--- OUTSIDE RECORDS SUMMARY | 2024-08-03 02:12 | XMS_ITS | Encounter Summary ---
Author Organization [facility] Address [facility]6 [place] [address] [place] [address] Care Team Providers Care Commercial Teller Name Role Phone Unavailable Primary Care Provider Unavailabl e Encounter Details Date Type Department Care Team (Late st Contact Info) Description 05/23/2012 Abstract [facility] [address] [place] [address] Manuel Kwok MD [address] [place] [address] Social History Tobacco Use Types [...]
--- OUTSIDE RECORDS SUMMARY | 2024-08-03 02:12 | XMS_ITS | Encounter Summary ---
Author Organization [facility] Address [facility]6 [facility] [place] [address] [place] [address] Care Team Providers Care Electrologist Name Role Phone Unavailable Primary Care Provider Unavailabl e Encounter Details Date Type Department Care Team (Late st Contact Info) Description 06/02/[address] [address] [place] [address] , Carolee Duenas MD Social [...]
--- OUTSIDE RECORDS SUMMARY | 2024-08-03 02:12 | XMS_ITS | Encounter Summary ---
Author Organization [facility] Address [facility]6 [facility] [place] [address] [place] [address] Care Team Providers Care Blanchard Grinder Operator Name Role Phone Unavailable Primary Care Provider Unavailabl e Encounter Details Date Type Department Care Team (Late st Contact Info) Description 06/17/[address] [facility] [address] [place] [address] , Carolee Duenas MD Social [...]
--- OUTSIDE RECORDS SUMMARY | 2024-08-03 02:12 | XMS_ITS | Encounter Summary ---
Author Organization [facility] Address [facility]6 [place] [address] [place] [address] Care Team Providers Care Financial Risk Manager Name Role Phone Unavailable Primary Care Provider Unavailabl e Encounter Details Date Type Department Care Team (Late st Contact Info) Description 04/30/[address] [address] [place] [address] Karen Jalloh MD [address] [place] [address] Social History Tobacco Use Types [...]
--- OUTSIDE RECORDS SUMMARY | 2024-08-03 02:12 | XMS_ITS | Encounter Summary ---
Author Organization [facility] Address [facility]6 [facility] [place] [address] [place] [address] Care Team Providers Care Computer Networking Instructor Adjunct Name Role Phone Unavailable Primary Care Provider Unavailabl e Encounter Details Date Type Department Care Team (Late st Contact Info) Description 04/24/2010 Abstract [facility] [address] [place] [address] Chuy Ponce MD [address] [place] [address] Social History Tobacco Use Types Packs/Day Years [...]
--- OUTSIDE RECORDS SUMMARY | 2024-08-03 02:12 | XMS_ITS | Encounter Summary ---
Author Organization [facility] Address [facility] access hospital6 [place] [address] [place] [address] Care Team Providers Care Computer Numerical Control Machinist Name Role Phone Unavailable Primary Care Provider Unavailabl e Encounter Details Date Type Department Care Team (Late st Contact Info) Description 07/16/2012 Abstract [facility] [address] [facility] [place] [address] Isaias Grier MD [address] [place] [address] Social History Tobacco Use Types Packs/Day [...]
--- OUTSIDE RECORDS SUMMARY | 2024-08-03 02:12 | XMS_ITS | Encounter Summary ---
Author Organization [facility] Address [facility] [place] [address] [place] [address] Care Team Providers Care Dental Mechanic Name Role Phone Unavailable Primary Care Provider Unavailabl e Encounter Details Date Type Department Care Team (Late st Contact Info) Description 11/06/2010 Abstract [facility] [address] [place] [address] Social History Tobacco Use Types Packs/Day Years [...]
--- OUTSIDE RECORDS SUMMARY | 2024-08-03 02:12 | XMS_ITS | Encounter Summary ---
Author Organization [facility] Address [facility]6 [facility] [place] [address] [place] [address] Care Team Providers Care Globe Tester Name Role Phone Unavailable Primary Care Provider Unavailabl e Encounter Details Date Type Department Care Team (Late st Contact Info) Description 09/11/2005 Abstract [facility] [address] [place] [address] Manuel Kwok MD [address] [place] [address] Social History Tobacco Use Types [...]
--- OUTSIDE RECORDS SUMMARY | 2024-08-03 02:12 | XMS_ITS | Encounter Summary ---
Author Organization [facility] Address [facility] [place] [address] [place] [address] Care Team Providers Care Polishing Machine Operator Name Role Phone Unavailable Primary Care Provider Unavailabl e Encounter Details Date Type Department Care Team (Late st Contact Info) Description 08/17/[address] [facility] [address] [place] [address] Social History Tobacco Use Types Packs/Day Years [...] Encounter for supervision of normal in multigravida ([facility]) documented in this encounter
--- OUTSIDE RECORDS SUMMARY | 2024-08-03 02:12 | XMS_ITS | Encounter Summary ---
Author Organization [facility] Address [facility]6 [facility] [place] [address] [place] [address] Care Team Providers Care Winding Lathe Operator Name Role Phone Unavailable Primary Care Provider Unavailabl e Encounter Details Date Type Department Care Team (Late st Contact Info) Description 01/20/2002 Abstract [facility] [address] [place] [address] , Generic Conversion, Social History [...]
--- OUTSIDE RECORDS SUMMARY | 2024-08-03 02:12 | XMS_ITS | Encounter Summary ---
Author Organization [facility] Address [address] [facility] [place] [address] [place] [address] Care Team Providers Care Size Roller Operator Name Role Phone Unavailable Primary Care Provider Unavailabl e Encounter Details Date Type Department Care Team (Late st Contact Info) Description 08/29/2010 Abstract [facility] [place] [address] [place] [address] Cierra Collier MD [address] [place] [address] Social History Tobacco Use Types [...]
--- OUTSIDE RECORDS SUMMARY | 2024-08-03 02:12 | XMS_ITS | Encounter Summary ---
Author Organization [facility] Address [facility] [place] [place] [address] [place] [address] Care Team Providers Care Wafer Fab Operator Name Role Phone Unavailable Primary Care Provider Unavailabl e Encounter Details Date Type Department Care Team (Late st Contact Info) Description 05/03/[address] [facility] [address] [place] [address] Karen Jalloh MD [address] [place] [address] Social History Tobacco Use Types [...]
--- OUTSIDE RECORDS SUMMARY | 2024-08-03 02:12 | XMS_ITS | Encounter Summary ---
Author Organization [facility] Address [facility] [place] [address] [place] [address] Care Team Providers Care Closing Coordinator Name Role Phone Unavailable Primary Care Provider Unavailabl e Encounter Details Date Type Department Care Team (Late st Contact Info) Description 10/27/[address] [facility] [address] [place] [address] Karen Jalloh MD [address] [place] [address] Social History Tobacco Use Types [...]
--- OUTSIDE RECORDS SUMMARY | 2024-08-03 02:12 | XMS_ITS | Encounter Summary ---
Author Organization [facility] Address [facility] [place] [address] [place] [address] Care Team Providers Care Pole Inspector Name Role Phone Unavailable Primary Care Provider Unavailabl e Encounter Details Date Type Department Care Team (Late st Contact Info) Description 05/07/[address] [facility] [address] [place] [address] Karen Jalloh MD [address] [place] [address] Social History Tobacco Use Types [...]
--- OUTSIDE RECORDS SUMMARY | 2024-08-03 02:12 | XMS_ITS | Encounter Summary ---
Author Organization [facility] Address [address] [place] [address] [place] [address] Care Team Providers Care Semiconductor Wafer Inspector Name Role Phone Unavailable Primary Care Provider Unavailabl e Encounter Details Date Type Department Care Team (Late st Contact Info) Description 07/22/2012 Abstract [facility] Nuclear Medicine [address] [place] [address] Katalina Ospina MD [address] [address] [place] [address] Social History Tobacco Use Types [...]
--- OUTSIDE RECORDS SUMMARY | 2024-08-03 02:12 | XMS_ITS | Encounter Summary ---
Author Organization [facility] Address [facility] [place] [address] [place] [address] Care Team Providers Care Plate Finisher Name Role Phone Unavailable Primary Care Provider Unavailabl e Encounter Details Date Type Department Care Team (Late st Contact Info) Description 07/23/2012 Abstract [facility] [address] [address] Social History Tobacco Use Types Packs/Day Years [...]
--- OUTSIDE RECORDS SUMMARY | 2024-08-03 02:12 | XMS_ITS | Encounter Summary ---
Author Organization [facility] Address [facility]6 [facility] [place] [address] [place] [address] Care Team Providers Care Occupational Nurse Name Role Phone Unavailable Primary Care Provider Unavailabl e Encounter Details Date Type Department Care Team (Late st Contact Info) Description 02/13/2002 Abstract [facility] [address] [place] [address] , Generic Conversion, Social History [...]
--- OUTSIDE RECORDS SUMMARY | 2024-08-03 02:12 | XMS_ITS | Encounter Summary ---
Author Organization [facility] Address [facility] [place] [address] [place] [address] Care Team Providers Care Fashion Adviser Name Role Phone Unavailable Primary Care Provider Unavailabl e Encounter Details Date Type Department Care Team (Late st Contact Info) Description 11/03/2008 Abstract [facility] Intermediate Care Unit [address] [place] [address] Social History Tobacco Use Types Packs/Day Years [...]
--- OUTSIDE RECORDS SUMMARY | 2024-08-03 02:12 | XMS_ITS | Encounter Summary ---
Author Organization [facility] Address [facility] [place] [address] [place] [address] Care Team Providers Care Steam Bone Press Tender Name Role Phone Unavailable Primary Care Provider Unavailabl e Encounter Details Date Type Department Care Team (Late st Contact Info) Description 12/21/2006 Abstract [facility] [address] [place] [address] Social History Tobacco Use Types Packs/Day Years [...]
--- OUTSIDE RECORDS SUMMARY | 2024-08-03 02:12 | XMS_ITS | Encounter Summary ---
Author Organization [facility] Address [facility]6 [facility] [place] [address] [place] [address] Care Team Providers Care Jewelry Coater Name Role Phone Unavailable Primary Care Provider Unavailabl e Encounter Details Date Type Department Care Team (Late st Contact Info) Description 04/24/[address] [facility] [address] [place] [address] Manuel Kwok MD [address] [place] [address] Social History Tobacco Use Types [...]
--- OUTSIDE RECORDS SUMMARY | 2024-08-03 02:12 | XMS_ITS | Encounter Summary ---
Author Organization [facility] Address [facility] [facility] [place] [address] [place] [address] Care Team Providers Care Event Decorator And Designer Name Role Phone Unavailable Primary Care Provider Unavailabl e Encounter Details Date Type Department Care Team (Late st Contact Info) Description 09/26/2011 Abstract [facility] [address] [facility] [address] Isaias Saenz MD [address] [place] [place] [address] Social History Tobacco Use Types [...]
--- OUTSIDE RECORDS SUMMARY | 2024-08-03 02:12 | XMS_ITS | Encounter Summary ---
Author Organization [facility] Address [facility] [place] [address] [place] [address] Care Team Providers Care Property Disposal Officer Name Role Phone Unavailable Primary Care Provider Unavailabl e Encounter Details Date Type Department Care Team (Late st Contact Info) Description 04/28/2013 Abstract [facility] [address] [place] [address] Karen Jalloh MD [address] [place] [address] Social History Tobacco Use Types [...]
--- OUTSIDE RECORDS SUMMARY | 2024-08-03 02:12 | XMS_ITS | Encounter Summary ---
Author Organization [facility] Address [address] [place] [address] [place] [address] Care Team Providers Care Hide Puller Name Role Phone Unavailable Primary Care Provider Unavailabl e Encounter Details Date Type Department Care Team (Late st Contact Info) Description 03/10/2014 Abstract [facility] [address] [place], [place] [address] Kirk Hurtado, BARBECUE COOK [address] [facility], [place], [place] [address] Social History Tobacco Use Types Packs/Day Years [...]
--- OUTSIDE RECORDS SUMMARY | 2024-08-03 02:12 | XMS_ITS | Encounter Summary ---
Author Organization [facility] Address [facility] [place] [address] [place] [address] Care Team Providers Care Religious Education Teacher Name Role Phone Unavailable Primary Care Provider Unavailabl e Encounter Details Date Type Department Care Team (Late st Contact Info) Description 05/28/[address] [address] [place] [place] [address] Karen Jalloh MD [address] [place] [address] Social History Tobacco Use Types [...]
--- OUTSIDE RECORDS SUMMARY | 2024-08-03 02:12 | XMS_ITS | Encounter Summary ---
Author Organization [facility] Address [facility] [address] [place] [address] Care Team Providers Care Leather Worker Name Role Phone Unavailable Primary Care Provider Unavailabl e Encounter Details Date Type Department Care Team (Late st Contact Info) Description 05/18/[address] [address] [place] [address] Karen Jalloh MD [address] [place] [address] Social History Tobacco Use Types [...]
--- OUTSIDE RECORDS SUMMARY | 2024-08-03 02:12 | XMS_ITS | Encounter Summary ---
Author Organization [facility] Address [facility] [place] [address] [place] [address] Care Team Providers Care Billing Administrator Name Role Phone Unavailable Primary Care Provider Unavailabl e Encounter Details Date Type Department Care Team (Late st Contact Info) Description 01/26/2003 Abstract [facility] [address] [place] [address] , Generic Conversion, Social History [...]
--- OUTSIDE RECORDS SUMMARY | 2024-08-03 02:12 | XMS_ITS | Encounter Summary ---
Author Organization [facility] Address Count includes the [facility]6 [facility] [place] [address] [place] [address] Care Team Providers Care Child Development Associate Teacher Name Role Phone Unavailable Primary Care Provider Unavailabl e Encounter Details Date Type Department Care Team (Late st Contact Info) Description 04/28/2013 Abstract [facility] [address] [facility] [place] [address] Alli Villegas MD [address] [place] [address] Social History Tobacco Use Types [...]
--- OUTSIDE RECORDS SUMMARY | 2024-08-03 02:12 | XMS_ITS | Encounter Summary ---
Author Organization [facility] Address [facility]6 [place] [address] [place] [address] Care Team Providers Care Violin Restorer Name Role Phone Unavailable Primary Care Provider Unavailabl e Encounter Details Date Type Department Care Team (Late st Contact Info) Description 05/21/[address] [address] [place] [address] Karen Jalloh MD [address] [place] [address] Social History Tobacco Use Types [...]
--- OUTSIDE RECORDS SUMMARY | 2024-08-03 02:12 | XMS_ITS | Encounter Summary ---
Author Organization [facility] Address Pending [facility]6 [facility] [address] [place] [address] Care Team Providers Care Sex Offender Treatment Professional Name Role Phone Unavailable Primary Care Provider Unavailabl e Encounter Details Date Type Department Care Team (Late st Contact Info) Description 12/20/2006 Abstract [facility] [address] [place] [address] Manuel Kwok MD [address] [place] [address] Social History Tobacco Use Types [...]
--- OUTSIDE RECORDS SUMMARY | 2024-08-03 02:12 | XMS_ITS | Encounter Summary ---
Author Organization [facility] Address [facility]6 [facility] [place] [address] [place] [address] Care Team Providers Care Technical Sales Specialist Name Role Phone Unavailable Primary Care Provider Unavailabl e Encounter Details Date Type Department Care Team (Late st Contact Info) Description 10/04/1995 Abstract [facility] [address] [place] [address] , Generic Conversion, Social History [...]
--- OUTSIDE RECORDS SUMMARY | 2024-08-03 02:12 | XMS_ITS | Encounter Summary ---
Author Organization [facility] Address [facility]6 [facility] [place] [address] [place] [address] Care Team Providers Care Diesel Electrician Name Role Phone Unavailable Primary Care Provider Unavailabl e Encounter Details Date Type Department Care Team (Late st Contact Info) Description 08/25/2013 Abstract [facility] [address] [place] [place] [address] Social History Tobacco Use Types Packs/Day Years [...]
--- OUTSIDE RECORDS SUMMARY | 2024-08-03 02:12 | XMS_ITS | Encounter Summary ---
Author Organization [facility] Address [facility]6 [place] [address] [place] [address] Care Team Providers Care Concrete Engineer Name Role Phone Unavailable Primary Care Provider Unavailabl e Encounter Details Date Type Department Care Team (Late st Contact Info) Description 09/30/2008 Abstract [facility] [address] [place] [address] Cuhy Ponce MD [address] [place] [id number] Social History Tobacco Use Types Packs/Day Years [...]
--- OUTSIDE RECORDS SUMMARY | 2024-08-03 02:12 | XMS_ITS | Encounter Summary ---
Author Organization [facility] Address [facility] [place] [address] [place] [address] Care Team Providers Care Entry Level Software Developer Name Role Phone Unavailable Primary Care Provider Unavailabl e Encounter Details Date Type Department Care Team (Late st Contact Info) Description 10/09/1999 Abstract [facility] [address] [place] [address] , Generic Conversion, Social History [...]
--- OUTSIDE RECORDS SUMMARY | 2024-08-03 02:12 | XMS_ITS | Encounter Summary ---
Author Organization [facility] Address [facility]6 [place] [address] [place] [address] Care Team Providers Care Senior Oracle Applications Developer Name Role Phone Unavailable Primary Care Provider Unavailabl e Encounter Details Date Type Department Care Team (Late st Contact Info) Description 04/26/[address] [address] [place] [address] Manuel Kwok MD [address] [place] [address] Social History Tobacco Use Types [...]
--- OUTSIDE RECORDS SUMMARY | 2024-08-03 02:12 | XMS_ITS | Encounter Summary ---
Author Organization [facility] Address [facility]6 [place] [address] [place] [address] Care Team Providers Care Friction Welding Machine Operator Name Role Phone Unavailable Primary Care Provider Unavailabl e Encounter Details Date Type Department Care Team (Late st Contact Info) Description 05/14/[address] [address] [place] [address] Karen Jalloh MD [address] [place] [address] Social History Tobacco Use Types [...]
--- OUTSIDE RECORDS SUMMARY | 2024-08-03 02:12 | XMS_ITS | Encounter Summary ---
Author Organization [facility] Address [facility]6 [place] [address] [place] [address] Care Team Providers Care Career Center Director Name Role Phone Unavailable Primary Care Provider Unavailabl e Encounter Details Date Type Department Care Team (Late st Contact Info) Description 04/20/2012 Abstract [facility] [address] [place] [address] Social History Tobacco Use Types Packs/Day Years [...]
--- OUTSIDE RECORDS SUMMARY | 2024-08-03 02:12 | XMS_ITS | Encounter Summary ---
Author Organization [facility] Address Critical access hospital6 [facility] [place] [address] [place] [address] Care Team Providers Care Nitrocellulose Maker Name Role Phone Unavailable Primary Care Provider Unavailabl e Encounter Details Date Type Department Care Team (Late st Contact Info) Description 01/10/2010 Abstract [facility] [address] [place] [address] Karen Jalloh MD [address] [place] [address] Social History Tobacco Use Types [...]
--- OUTSIDE RECORDS SUMMARY | 2024-08-03 02:12 | XMS_ITS | Encounter Summary ---
Author Organization [facility] Address Critical access hospital6 [facility] [address] [place] [address] Care Team Providers Care Software Performance Engineer Name Role Phone Unavailable Primary Care Provider Unavailabl e Encounter Details Date Type Department Care Team (Late st Contact Info) Description 04/16/[address] [address] [place] [address] Karen Jalloh MD [address] [place] [address] Social History Tobacco Use Types [...]
--- OUTSIDE RECORDS SUMMARY | 2024-08-03 02:12 | XMS_ITS | Encounter Summary ---
Author Organization [facility] Address [facility] [place] [address] [place] [address] Care Team Providers Care Pediatrician/Medical Doctor Name Role Phone Unavailable Primary Care Provider Unavailabl e Encounter Details Date Type Department Care Team (Late st Contact Info) Description 05/18/[address] [address] [place] [address] Karen Jalloh MD [address] [place] [address] Social History Tobacco Use Types [...]
--- OUTSIDE RECORDS SUMMARY | 2024-08-03 02:12 | XMS_ITS | Encounter Summary ---
Author Organization [facility] Address [facility]6 [place] [address] [place] [address] Care Team Providers Care Reimbursement Counselor Name Role Phone Unavailable Primary Care Provider Unavailabl e Encounter Details Date Type Department Care Team (Late st Contact Info) Description 11/14/[address] [facility] [address] [place] [address] Social History Tobacco Use Types Packs/Day Years [...] Encounter for supervision of normal in multigravida ([facility]) documented in this encounter
--- OUTSIDE RECORDS SUMMARY | 2024-08-03 02:12 | XMS_ITS | Encounter Summary ---
Author Organization [facility] Address [facility]6 [place] [address] [place] [address] Care Team Providers Care Training Executive Name Role Phone Unavailable Primary Care Provider Unavailabl e Encounter Details Date Type Department Care Team (Late st Contact Info) Description 12/27/2005 Abstract [facility] [address] [place] [address] Jose R Ramirez MD [address] [place] [address] Social History Tobacco Use Types Packs/Day Years [...]
--- OUTSIDE RECORDS SUMMARY | 2024-08-03 02:12 | XMS_ITS | Encounter Summary ---
Author Organization [facility] Address [facility] [place] [address] [place] [address] Care Team Providers Care Final Assembly Worker Name Role Phone Unavailable Primary Care Provider Unavailabl e Encounter Details Date Type Department Care Team (Late st Contact Info) Description 10/17/[address] [facility] [address] [place] [address] Manuel Kwok MD [address] [place] [address] Social History Tobacco Use Types [...]
--- OUTSIDE RECORDS SUMMARY | 2024-08-03 02:12 | XMS_ITS | Encounter Summary ---
Author Organization [facility] Address [facility]6 [facility] [place] [address] [place] [address] Care Team Providers Care Supervisor Tree Trimming Name Role Phone Unavailable Primary Care Provider Unavailabl e Encounter Details Date Type Department Care Team (Late st Contact Info) Description 01/26/2003 Abstract [facility] [address] [place] [address] , Generic Conversion, Social History [...]
--- OUTSIDE RECORDS SUMMARY | 2024-08-03 02:12 | XMS_ITS | Encounter Summary ---
Author Organization [facility] Address [facility] [place] [address] [place] [address] Care Team Providers Care Technology And Engineering Teacher Name Role Phone Unavailable Primary Care Provider Unavailabl e Encounter Details Date Type Department Care Team (Late st Contact Info) Description 01/11/2006 Abstract [facility] [address] [place] [address] Manuel Kwok MD [address] [place] [address] Social History Tobacco Use Types [...]
--- OUTSIDE RECORDS SUMMARY | 2024-08-03 02:12 | XMS_ITS | Encounter Summary ---
Author Organization [facility] Address [facility]6 [place] [address] [place] [address] Care Team Providers Care Electrician Chief Name Role Phone Unavailable Primary Care Provider Unavailabl e Encounter Details Date Type Department Care Team (Late st Contact Info) Description 10/11/2005 Abstract [facility] [address] [place] [address] Manuel Kwok MD [address] [place] [address] Social History Tobacco Use Types [...]
--- OUTSIDE RECORDS SUMMARY | 2024-08-03 02:12 | XMS_ITS | Encounter Summary ---
Author Organization [facility] Address [facility] [place] [address] [place] [address] Care Team Providers Care Ship'S Officer Name Role Phone Unavailable Primary Care Provider Unavailabl e Encounter Details Date Type Department Care Team (Late st Contact Info) Description 11/20/2011 Abstract [facility] Intensive Care Unit - 4B [address] [place] [address] Izaiah [place] MD Social History Tobacco Use [...]
--- OUTSIDE RECORDS SUMMARY | 2024-08-03 02:12 | XMS_ITS | Encounter Summary ---
Author Organization [facility] Address [facility] [place] [address] [place] [address] Care Team Providers Care Apprentice Name Role Phone Unavailable Primary Care Provider Unavailabl e Encounter Details Date Type Department Care Team (Late st Contact Info) Description 10/08/2005 Abstract [facility] [address] [place] [address] Social History Tobacco Use Types Packs/Day Years [...]
--- OUTSIDE RECORDS SUMMARY | 2024-08-03 02:12 | XMS_ITS | Encounter Summary ---
Author Organization [facility] Address [facility]6 [facility] [address] [place] [address] Care Team Providers Care Assignment Clerk Name Role Phone Unavailable Primary Care Provider Unavailabl e Encounter Details Date Type Department Care Team (Late st Contact Info) Description 10/03/1997 Abstract [facility] [address] [address] , Generic Conversion, Social History [...]
--- OUTSIDE RECORDS SUMMARY | 2024-08-03 02:12 | XMS_ITS | Encounter Summary ---
Author Organization [facility] Address [facility]6 [place] [address] [place] [address] Care Team Providers Care Manager Engine Name Role Phone Unavailable Primary Care Provider Unavailabl e Encounter Details Date Type Department Care Team (Late st Contact Info) Description 11/10/1995 Abstract [facility] [address] [place] [address] , Generic Conversion, Social History [...]
--- OUTSIDE RECORDS SUMMARY | 2024-08-03 02:12 | XMS_ITS | Encounter Summary ---
Author Organization [facility] Address [facility]6 [place] [address] [place] [address] Care Team Providers Care Mine Deputy Name Role Phone Unavailable Primary Care Provider Unavailabl e Encounter Details Date Type Department Care Team (Late st Contact Info) Description 04/20/[address] [facility] [address] [place] [address] Karen Jalloh MD [address] [place] [address] Social History Tobacco Use Types [...]
--- OUTSIDE RECORDS SUMMARY | 2024-08-03 02:13 | XMS_ITS | Encounter Summary ---
Author Organization [facility] Address [facility]6 [facility] [place] [address] [place] [address] Care Team Providers Care Economist Research Assistant Name Role Phone Unavailable Primary Care Provider Unavailabl e Encounter Details Date Type Department Care Team (Late st Contact Info) Description 01/31/1990 Abstract [facility] [address] [place] [address] , Generic Conversion, Social History [...]
--- OUTSIDE RECORDS SUMMARY | 2024-08-03 02:13 | XMS_ITS | Encounter Summary ---
Author Organization [facility] Address [facility]6 [facility] [place] [address] [place] [address] Care Team Providers Care Hydro Mechanic Name Role Phone Unavailable Primary Care Provider Unavailabl e Encounter Details Date Type Department Care Team (Late st Contact Info) Description 02/14/1990 Abstract [facility] [address] [place] [address] , Generic Conversion, Social History [...]
== END 2024-07-27 07:10 | disposition home or self-care (01) ==
PROVIDERS: Emergency Provider Internal Medicine Critical Care Medicine; PCP Family Medicine
DX: J10.1 Influenza due to other identified influenza virus with other respiratory manifestations (principal); E10.65 Type 1 diabetes mellitus with hyperglycemia; Z79.4 Long term (current) use of insulin; F17.210 Nicotine dependence, cigarettes, uncomplicated; F12.90 Cannabis use, unspecified, uncomplicated; Z20.822 Contact with and (suspected) exposure to COVID-19
CPT/HCPCS: 36415; 80048; 80053; 81001; 82948; 83605; 83690; 84443; 84484; 85025; 87637; 96361; 96374; 96375; 99284; J0780; J1171; J1815; J2405; J7030; J7120

== ENCOUNTER 2024-12-11 00:37 | Emergency (ER) | payer OTHER, SELFPAY ==
--- NOTE | ~2024-12-11 | XR_ITS ---
AP and lateral views of the right femur Clinical History: Pain at insulin pump Findings: No acute fracture or dislocation is seen. Osseous alignment is anatomic. Visualized joint s paces are grossly preserved. Insulin pump noted overlying the proximal thigh. Impression: Insulin pump present. No acute abnormality seen. Reviewed, dictated and finalized at [facility]. Impression: Insulin pump present. No acute abnormality seen.
--- OUTSIDE RECORDS SUMMARY | 2024-12-11 00:39 | XMS_ITS | Data Portability ---
Author Organization [facility] Address [address] [place] [address] Assessment No assessment recorded. Plan of Treatment [...] Address Organization Details Recorded Time Acute vaginitis 80913113 Active 2019 Vulvovagin itis;Recor ded Elsewhere: No Locatio n: [facility] rce: EHR Chroni c: N Practice ID: [id number] Billa ble Time: 03:30:00 PM Not Available [facility] 0 17:45:04 Bleeding 308331474 Active 2018 Abnormal uterine and vaginal bleeding, unspecifie d;Recorded Elsewhere: No Locatio n: [facility] rce: EHR Chroni c: N Practice ID: [id number] Billa ble Time: 01:00:00 PM Not Available [facility] 0 17:45:04 Pelvic and perineal pain 240941231 Active 2018 Pelvic and perineal pain;Pract ice ID: 0001 Not Available [facility] 0 17:45:04 test negative 802142107 Active 2018 Encounter for test, result negative;P ractice ID: 0001 Not Available [facility] 0 17:45:04 Finding of menstrual bleeding Active 2018 Excessive and frequent menstruati on with regular cycle;Prac kylee ID: 0001 Not Available [facility] 0 17:45:04 Steriliza tion procedure Active 2019 Encounter for sterilizat ion;Practi ce ID: 0001 Not Available [facility] 0 17:45:05 Lesion of ovary Active 2019 Other ovarian cyst, right side;Pract ice ID: 0001 Not Available [facility] 0 17:45:[address] Concept Active 2019 Oth complicati ons of procedures , NEC, init;Pract ice ID: 0001 Not Available [facility] 0 17:45:05 Inflammat ory disease of the uterus 01574256 Active 2019 Inflammato ry disease of uterus, unspecifie d;Practice ID: 0001 Not Available [facility] 0 17:45:05 Urinary tract infectiou s disease 57188771 Active 2019 Urinary tract infection, site not specified; Practice ID: 0001 Not Available [facility] 0 17:45:[address] Concept Active 2019 Oth complicati ons of procedures , NEC, subs;Pract ice ID: 0001 Not Available [facility] 0 17:45:05 Sexual function painful Active 2019 Dyspareuni a;Recorded Elsewhere: No Locatio n: [facility] rce: EHR Chroni c: N Practice ID: 0001 Billa ble Time: 03:30:00 PM Not Available [facility] 0 17:45:07 Notes:Infection following a procedure, unspecified, init Practice ID: [id number] Problem Notes None recorded. Procedures Surgical History Date Name Laterality Status Provider Name and Address Organization Details Recorded Time 020 TOTAL LAPAROSCOPIC HYSTERECTOMY (SURG) completed Rufina Luz [facility] 12/23/2019 14:32:37 013 cholecystectomy completed Elena Cross [facility] 12/16/2019 13:36:17 011 section completed Elena TRINH KIRAN SAHU [facility] 12/16/2019 13:36:52 Imaging Results None recorded. Procedure Notes None recorded. Medical Equipment None Reported. Allergies Allergen ID Allergen Name Allergen Category Reaction Reaction Severity Criticality Documentation Date Start Date Code Code System Note Provider Name and Address Organization Details Recorded Time 24101 latex environme nt,medica tion Not available Not available Not available 07/09/2020 75287 91 RxNorm Comme nt: Locat ion: Kiran sahu [facility]; Not Available [facility] 0 14:20:58 Medications Name Sig Start Date [...] Prescrib ed Elsewher e: Yes Loca tion: [facility] odify By: anitra Encounte r DateTime : 12/05/19 19 01:00:00 PM Not Available Not Available Not Available ClearLax 17 gram/dose oral powder 01/01 completed Not Available Not Available Not Available Tirosint 13 mcg capsule take 1 capsule by oral route every day 09/02 completed Prescrib ed Elsewher e: Yes Loca tion: [facility] odify By: anitra Encounte r DateTime [...] Available Not Available Not Available Dexcom G6 Liability Claims Manager active Not Available Not Available Not Available Vitals Date Recorded Body height Body mass index (BMI) Body weight Systolic blood pressure Diastolic blood pressure Provider Name and Address Organization Details Last Updated DateTime 12/16/2019 165.1 cm 19.1 kg/m2 12361.12 g 99 mm[Hg] 64 mm[Hg] [facility] 0 11:42:35 Date Recorded Body height Body mass index (BMI) Body weight Systolic blood pressure Diastolic blood pressure Provider Name and Address Organization Details Last Updated DateTime 01/02/2020 165.1 cm 19 kg/m2 50403.53 g 106 mm[Hg] 72 mm[Hg] [facility] 0 12:19:02 Date Recorded Body height Body mass index (BMI) Body weight Systolic blood pressure Diastolic blood pressure Provider Name and Address Organization Details Last Updated DateTime 01/05/2020 165.1 cm 19.3 kg/m2 45376.71 g 106 mm[Hg] 73 mm[Hg] [facility] 0 13:00:35 Social History None recorded. [...] Code Diagnosis Note [id number] Zeb Worley MD [facility] [address] [address] 12/16/2019 11:30:01 12/16/2019 15:48:11 Menorrhagia 091877355 N92.0 Chronic pe lvic pain of female 532125052 R10.2 Dysmenorrhea 251284322 N 94.6 This patient is a 29-year-ol d female with severe menorrhagi a, dysmenorrh ea, pelvic pain and dyspareuni a. We have agreed to perform total laparoscop ic hysterecto my and bilateral salpingo-o ophorectom y. She understand s the risk, benefits, and alternativ es. She is completed the informed consent process and is ready to proceed. [id number] Zeb Worley MD [facility] [address] [address] 01/02/2020 12:03:07 01/05/2020 20:37:39 Postoperative visit 397710639 Z09 This patient is a 29-year-ol d female presents forpostopf ollow-up. She is 1weekposto pfrom aTLH.It was aTLHBSO. She is recovering normally. She feels great.She is having minimalmen opausal symptoms. She is receiving estrogen replacemen t therapy. e will follow-up as needed.She has no signsor symptoms ofDKA. [id number] Zeb Worley MD [facility] [address] [address] 01/05/2020 12:35:13 01/06/2020 15:29:36 Postoperative visit [id number] Z09 This patient is a 29-year-ol d [...] Cantu Member ID Guarantor Name 12/16/2019 1 [facility] PRIOR TO 01/20/2021 (MEDICAID REPLACEMENT - HMO) Steph Camacho [id number] 01/02/2020 1 [facility] PRIOR TO 01/20/2021 (MEDICAID REPLACEMENT - HMO) Steph Camacho [id number] 01/05/2020 1 [facility] PRIOR TO 01/20/2021 (MEDICAID REPLACEMENT - HMO) Steph Camacho [id number] Notes Date Note Type Note Provider Name [...] infection. Zeb Worley MD [address], [place], [address], [facility] 12/16/2019 14:37:13 01/02/2020 text/html Patient is a 29-year-old female presents for postop follow-up. She is one-week postop from a total laparoscopic hysterectomy and bilateral salpingo-oophorect екатерина. She is recovering normally. No evidence of DKA. Her blood sugars are well controlled Zeb Worley MD [address], [place], [address], [facility] 01/05/2020 20:37:38 01/05/2020 text/html This patient is a 29-year-old female presents for postop follow-up. She is 1 week postop from a H. It was a [facility] BSO. She is recovering normally. She feels great. She is having minimal menopausal symptoms. She is receiving estrogen replacement therapy. She will follow-up as needed. She has no signs or symptoms of DKA. Zeb Worley MD [address], [place], [address], [facility] 01/05/2020 17:45:19 OBGyn Episode Ob Episode Information Episode Created Date Number of Fetuses Patient Bloodtype Patient rh Status Prepregnancy Weight lbs Domestic Partner Domestic Partner Phone Father Name Terrazzo Mechanic Status 12/16/19 20 1 CLOSED Fetus Data [...]
[2024-12-11 00:41] VITALS: BP 135/92; PULSE 89; RESP 18; TEMP 36.1; O2SAT 100
--- NOTE | 2024-12-11 01:21 | ED_ITS ---
HPI - Extremity Injury (Lower) General Chief Complaint: Extremity Injury, Lower Stated Complaint: THIGH PAIN Source: patient Mode of arrival: ambulatory Limitations: no limitations History of Present Illness HPI Narrative: 34-year-old female with a history of IBS, endometritis, status post hysterectomy, GERD, hypothyroidism, diabetes mellitus on insulin pump presents to the ED with a 2 day history of -- right lateral thigh pain. patient has difficulty walking. -- Painful erythematous rash on the right lateral thigh. No fever or chills. Patient has had uncontrolled diabetes mellitus with an HbA1c of greater than 12, 2 weeks ago. No history of trauma. Onset (ago): day(s) ( Two days) Injury: Right: thigh Severity: severe Relieving factors: immobilization Exacerbating factors: movement Other symptoms: none Related Data Home Medications ?Medication ?Instructions ?Recorded ?Confirmed ?Last Taken ?Type insulin lispro 100 unit/mL 3 unit continuous subcutaneous 07/25/19 07/27/24 07/27/24 History subcutaneous solution (Admelog infusion DIRECTED U-100 Insulin lispro) levothyroxine 50 mcg capsule 50 mcg PO DAILY 12/16/19 07/27/24 07/26/24 History blood-glucose sensor (Dexcom G6 11/06/20 07/27/24 05/30/24 History Sensor device) omeprazole 40 mg capsule,delayed 40 mg PO DAILY 07/05/23 07/27/24 07/26/24 History release Allergies Allergy/AdvReac Type Severity Reaction Status Date / Time Latex, Natural Rubber Allergy Severe Hives Verified 12/11/24 00:53 peanut oil Allergy Severe Difficulty Verified 12/11/24 00:53 Breathing Review of Systems 2 Review of Systems: All systems reviewed & are unremarkable except as noted in HPI and below Constitutional: Constitutional: Reports as per HPI and Reports no additional constitutional complaints Eyes: Eyes: Reports as per HPI and Reports no additional eye complaints ENT: Reports system reviewed and no additional complaints, except as documented and Reports as per HPI Cardiovascular: Cardiovascular: Reports as per HPI and Reports no additional cardiovascular complaints Respiratory: Respiratory: Reports as per HPI and Reports no additional respiratory complaints Gastrointestinal: Gastrointestinal: Reports as per HPI and Reports no additional gastrointestinal complaints Genitourinary: Genitourinary: Reports no additional female genitourinary complaints and Reports as per HPI Musculoskeletal: Musculoskeletal: Reports no additional musculoskeletal complaints and Reports as per HPI Comments: right thigh pain Integumentary/Breasts: Skin/Breast: Reports system reviewed and no additional complaints, except as docu Comments: erythematous rash to right lateral thigh which is warm to touch Neurologic: Reports system reviewed and no additional complaints, except as documented and Reports as per HPI Psychiatric: Psychiatric: Reports no additional psychiatric complaints and Reports as per HPI Endocrine: Endocrine: Reports no additional endocrine complaints and Reports as per HPI Hematologic/Lymphatic: Hematologic/Lymphatic: Reports no additional hematologic/lymphatic complaints and Reports as per HPI Allergic/Immunologic: Allergic/Immunologic: Reports no additional allergic/immunologic complaints and Reports as per HPI [facility] Past Medical History Medical History Urinary tract infection Endometriosis Irritable bowel syndrome with constipation Ovarian cyst Endometritis History of seizure As a child. History of UTI Hypothyroidism Type 1 diabetes mellitus Acute cervicitis GERD (gastroesophageal reflux disease) Dysmenorrhea Surgical History Surgical History H/O: hysterectomy 12/23/[address] san Status post cholecystectomy Status post ovarian cystectomy 08/06/19 Dr San. Status post tubal ligation 08/06/19 Dr San. Status post endometrial ablation 08/06/19 Dr San. Family History Family History Mother Lupus (systemic lupus erythematosus) Scleroderma Diabetes mellitus Heart disease Renal disease Cerebrovascular accident History of blood clots Grandparent Hypertension Father CAD (coronary artery disease) Social History Social History Social History: The patient lives in [place], [place] with her 8-year-old daughter. 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 She tells me she smokes 7-8 cigarettes a day for the last 10 years. She reports occasional marijuana use. She denies alcohol use. Her PCP is Dr. Rodney Grier. She designates her mother, Olya Rodriguez, as her surrogate decision maker and she is full code status. Smoking packs per day: 0.5 Smoking cigarettes per day: 10.0 Years smoked: 4 Smoking pack-years: 2.00 Smoking status: Current some day smoker Tobacco type: cigarettes Second hand tobacco smoke exposure: Yes Smoking end date: 12/22/19 Alcohol intake: never Drinks per week: 1 Substance use: current Substance use type: marijuana Last use: Patient reports last use of Marijuana about 3 weeks ago Gender identity (if verbalized by the patient): Female Sexual Orientation (if Verbalized by the Patient): Straight or Heterosexual Spiritual care concerns: No Agree to blood products: Yes Exam 2 Narrative: afebrile. Blood pressure stable. Oxygen saturation of 100% on room air. Const: General: no acute distress Nutritional Appearance: thin O rientation/consciousness: patient oriented x3 Limitations: no limitations HENMT: Head: normal to inspection Ears: external ears normal F nimesh/Nose/Sinus: Normal external nose present Face and sinus: normal facial exam Mouth: Yes Normal oral and palatal mucosa present Throat: posterior oropharynx normal Eyes: Conjunctivae: conjunctivae normal Pupils: Equal, round and reactive pupils present EOM: EOMs intact bilaterally Direct Ophthalmoscopy: no photophobia Neck: Neck: normal visual inspection, no lymphadenopathy and no meningeal signs Chest: Chest palpation & inspection: normal inspection of the chest Resp: Effort & Inspection: normal respiratory effort Auscultation: clear to auscultation bilaterally Cardio: Rate: regular rate Rhythm: regular rhythm GI: GI Palp: Yes Soft to palpation Auscultation: normal bowel sounds O ther: No tenderness/rigidity / rebound. : General: Yes no CVA tenderness Back/Spine/Pelvis: Back: no CVA tenderness Skin: Other: Right lateral thigh has an sitx42s 15 cms. tender palpation warm to touch. No regional lymphadenopathy Neuro: General: patient oriented x3, moves all extremities, no meningeal signs, no focal motor deficits and CN's II-XI intact bilaterally Cranial nerves: Yes Nystagmus not present Speech: normal speech Gait exam (Neuro): Normal gait present Extrem: General: normal to inspection and no clubbing, cyanosis or edema O ther: right thigh pain /cellulitis right lateral no increase in size of the thigh. Psych: Mental Status: mental status grossly normal Affect: normal affect Course Course Emergency Course: right lateral thigh cellulitis / thigh pain-- patient had an x-ray of the femur which did not show any acute findings. Patient had a normal white cell count and a normal lactate. No thigh swelling. The patient was noted to have a normal D-dim Will treat with Augmentin. Blood sugar is 65. Vital Signs Vital signs: Vital Signs Temperature 36.1 C L 12/11/24 00:41 Pulse Rate 89 12/11/24 00:41 Respiratory Rate 18 12/11/24 00:41 Blood Pressure 135/92 H 12/11/24 00:41 Pulse Oximetry 100 12/11/24 00:41 Oxygen Delivery Room Air 12/11/24 00:41 Temperature 36.1 C L 12/11/24 00:41 Pulse Rate 89 12/11/24 00:41 Respiratory Rate 18 12/11/24 00:41 Blood Pressure 135/92 H 12/11/24 00:41 Pulse Oximetry 100 12/11/24 00:41 Oxygen Delivery Room Air 12/11/24 00:41 MDM - Extremity Injury (Lower) MDM Narrative Medical decision making narrative: Thigh cellulitis low blood sugar Differential Diagnosis Differential diagnosis: Likely other Medical Records Medical records narrative: DVT, femur fracture, Lab Data Attestation: I reviewed the patient's lab results. 12/11/24 01:41 12/11/24 01:41 Labs: Lab Results 12/11/24 12/11/24 Range/Units 01:41 01:51 WBC 9.4 (4.8-10.8) K/mm3 RBC 3.90 L (4.20-5.40) M/mm3 Hgb 11.9 L (12.0-15.0) g/dL Hct 35.8 (35.0-49.0) % MCV 91.8 (78.0-102.0) fL MCH 30.5 (27.0-31.0) pg MCHC 33.2 (32-36) g/dL RDW 12.4 (11.6-14.4) % Plt Count 250 (150-420) K/mm3 MPV 9.4 (9.2-11.8) fl Immature Gran % (Auto) 0.3 H (0.0-0.0) % Neut % (Auto) 65.9 (50.0-70.0) % Lymph % (Auto) 25.1 (18.0-42.0) % Rush % (Auto) 7.1 (2.0-11.0) % Eos % (Auto) 1.1 (1.0-6.0) % Baso % (Auto) 0.5 (0.0-1.0) % Lymph # (Auto) 2.36 (1.10-4.50) K/mm3 Rush # (Auto) 0.67 (0.10-0.90) K/mm3 Eos # (Auto) 0.10 (0.02-0.50) K/mm3 Baso # (Auto) 0.05 (0.00-0.10) K/mm3 Abs Immat Gran (auto) 0.03 H (0.00-0.00) K/mm3 Absolute Neuts (auto) 6.21 (1.70-7.20) K/mm3 Absolute Nucleated RBC 0.00 (0.00-0.00) K/mm3 Nucleated RBC % 0.0 (0-0.0) % D-Dimer 0.38 (0.19-0.50) mg/L Sodium 137 (137-145) mmol/L Potassium 3.8 (3.4-5.0) mmol/L Chloride 106 (98-107) mmol/L Carbon Dioxide 28 (22-30) mmol/L Anion Gap 3 L (4-12) mmol/L BUN 20 H D (7-17) mg/dL Creatinine 0.99 (0.7-1.0) mg/dL Estim Creat Clear Calc 54 ml/min Estimated GFR > 60 (59 - ) Glucose 65 (65-110) mg/dL Calculated Osmolality 284 L (285-295) mOsm/kg Lactic Acid 0.6 (0.4-2.0) mmol/L Calcium 9.0 (8.4-10.2) mg/dL Magnesium 1.7 (1.6-2.3) mg/dL Total Bilirubin 0.6 (0.2-1.3) mg/dL AST 32 (14-36) U/L ALT 25 (6-35) U/L Alkaline Phosphatase 109 (38-126) U/L Total Protein 7.8 (6.3-8.2) g/dL Albumin 4.3 (3.5-5.1) g/dL Urine Color Yellow (Yellow) Urine Appearance Clear (Clear) Urine pH 5.5 (5.0-8.0) Ur Specific [place] 1.020 (1.010-1.020) Urine Protein 1+ H (Negative) Urine Glucose (UA) Negative (Negative) Urine Ketones Trace H (Negative) Ur Blood (Man) Negative (Negative) Urine Nitrate Negative (Negative) Urine Bilirubin Negative (Negative) Urine Urobilinogen 0.2 (0.2-1.0) mg/dL Leukocyte Esterase Rfl Negative (Negative) KURT/UL Urine RBC 0-2 (0-2) /hpf Urine WBC 0-3 (0-3) /hpf Ur Squamous Epith Cells Rare (Few) /hpf Urine Bacteria Trace (None) /hpf Discharge Plan Discharge Clinical Impression: Cellulitis of right thigh Patient Disposition: Home Condition: Stable Instructions: Antibiotic Form, Cellulitis (ED) Patient Language: Comoran Prescriptions: New amoxicillin-pot clavulanate 875-125 mg tablet 1 tablet PO Q12H Qty: 14 0RF No Action (DME) Dexcom G6 Sensor Device MISCELLANEOUS omeprazole 40 mg capsule,delayed release(DR/EC) 40 mg PO DAILY levothyroxine 75 mcg capsule 75 mcg PO DAILY Qty: 90 0RF prochlorperazine [Compazine] 25 mg suppository 25 mg RECTAL Q12H PRN (Reason: nausea and vomiting) Qty: 12 0RF insulin lispro [Admelog U-100 Insulin lispro] 100 unit/mL Solution 3 unit continuous subcutaneous infusion DIRECTED Rx Instructions: 3 UNITS/PER HOUR CONTINOUS INSULIN PUMP- BOLUS DOSE W MEALS levothyroxine 50 mcg Capsule 50 mcg PO DAILY Follow-up/Referrals: Mary,Renee Amato MD [Primary Care Provider] - Time of Disposition: 02:15
--- NOTE | 2024-12-11 01:41 | PC.NURSE ---
LAB HAS FINISHED AT THE BEDSIDE. BEING TAKEN TO THE BATHROOM FOR URINE SAMPLE.
[2024-12-11 01:44] LABS: Basophils Absolute Auto 0.05 K/mm3 (0.00-0.10); Basophils Percent Auto 0.5 % (0.0-1.0); Eosinophils Percent Auto 1.1 % (1.0-6.0); Hematocrit 35.8 % (35.0-49.0); Hemoglobin 11.9 g/dL (12.0-15.0); Immature Granulocyte Absolute 0.03 K/mm3 (0.00-0.00); Immature Granulocyte Percent A 0.3 % (0.0-0.0); Lymphocytes Absolute Auto 2.36 K/mm3 (1.10-4.50); Lymphocytes Percent Auto 25.1 % (18.0-42.0); Mean Corpuscular HGB Conc 33.2 g/dL (32-36); Mean Corpuscular Hemoglobin 30.5 pg (27.0-31.0); Mean Corpuscular Volume 91.8 fL (78.0-102.0); Mean Platelet Volume 9.4 fl (9.2-11.8); Monocytes Absolute Auto 0.67 K/mm3 (0.10-0.90); Monocytes Percent Auto 7.1 % (2.0-11.0); Neutrophils Absolute Auto 6.21 K/mm3 (1.70-7.20); Neutrophils Percent Auto 65.9 % (50.0-70.0); Platelet Count Result 250 K/mm3 (150-420); Red Cell Distribution Width 12.4 % (11.6-14.4); White Blood Count 9.4 K/mm3 (4.8-10.8)
[2024-12-11 01:54] LABS: Add Urine Microscopic? YES; Appearance Urine Clear (Clear); Bilirubin Urine Negative (Negative); Blood Urine Negative (Negative); Color Urine Yellow (Yellow); Glucose Urine UA Negative (Negative); Ketones Urine Trace (Negative); Leukocyte Esterase Ur Negative LEU/UL (Negative); Nitrate Urine Negative (Negative); Protein Urine 1+ (Negative); Urobilinogen Urine 0.2 mg/dL (0.2-1.0); pH Urine 5.5 (5.0-8.0)
[2024-12-11 01:56] LABS: Alanine Aminotransferase 25 U/L (6-35); Albumin Level 4.3 g/dL (3.5-5.1); Alkaline Phosphatase 109 U/L (38-126); Anion Gap 3 mmol/L (4-12); Aspartate Amino Transferase 32 U/L (14-36); Bilirubin,Total 0.6 mg/dL (0.2-1.3); Blood Urea Nitrogen 20 mg/dL (7-17); Carbon Dioxide 28 mmol/L (22-30); Chloride 106 mmol/L (98-107); Estimated CRCL calculation 54 ml/min; Estimated Glomerular Filt Rate > 60; Glucose 65 mg/dL (65-110); Lactic Acid Reflex 0.6 mmol/L (0.4-2.0); Magnesium 1.7 mg/dL (1.6-2.3); Osmolality Calculated 284 mOsm/kg (285-295); Potassium 3.8 mmol/L (3.4-5.0); Sodium 137 mmol/L (137-145); Total Protein 7.8 g/dL (6.3-8.2)
[2024-12-11 01:57] LABS: D Dimer 0.38 mg/L (0.19-0.50)
[2024-12-11 01:57] LABS: Bacteria Urine Trace /hpf; RBC Urine 0-2 /hpf (0-2); Squamous Epithelial Cell Urine Rare /hpf (Few); WBC Urine 0-3 /hpf (0-3)
[2024-12-11] MEDS: KETOROLAC 15 MG/ML VIAL (*BKC) IV PUSH (01:57)
[2024-12-11] MEDS: PIPERACILLN/TAZ 3.375GM/NS50ML 3.375 GM/50 ML BAG IVPB (01:57)
[2024-12-11 02:55] VITALS: BP 101/68; PULSE 84; RESP 18; TEMP 36.2; O2SAT 97
--- NOTE | 2024-12-13 14:30 | PC.NURSE ---
PRELIMINARY BLOOD CULTURE REPORT; NO GROWTH TO DATE.
--- NOTE | 2024-12-18 13:31 | PC.NURSE ---
final blood cultures x2 reviewed. no growth after 5 days. no change in plan of care
== END 2024-12-11 02:56 | disposition home or self-care (01) ==
PROVIDERS: Emergency Provider Internal Medicine Critical Care Medicine; PCP Family Medicine
DX: L03.115 Cellulitis of right lower limb (principal); E10.9 Type 1 diabetes mellitus without complications; E03.9 Hypothyroidism, unspecified; K21.9 Gastro-esophageal reflux disease without esophagitis; Z96.41 Presence of insulin pump (external) (internal); R21 Rash and other nonspecific skin eruption; Z79.4 Long term (current) use of insulin; F17.210 Nicotine dependence, cigarettes, uncomplicated; F12.90 Cannabis use, unspecified, uncomplicated
CPT/HCPCS: 36415; 73552; 80053; 81001; 83605; 83735; 85025; 85380; 87040; 96365; 96375; 99284; J1885; J2543

== ENCOUNTER 2025-01-02 22:50 | Emergency (ER) | payer OTHER, SELFPAY ==
--- NOTE | ~2025-01-02 | CT_ITS ---
CT brain wo con Ordering provider: Sami Stewart MD History: 34 years Female with . unresponsiveness. PASSED OUT AT WORK. BLOOD SUGAR ISSUES. . Comparison: None. Technique: CT of the head without contrast. Radiation reduction technique utilized.The dose-length product was 605.33 mGy-cm FINDINGS: BRAIN PARENCHYMA AND CSF SPACES: Possibility of a hypodensity in the jacob is not excluded. This may b e artifactual. MRI evaluation advised. No midline shift, mass effect or hemorrhage. The brain parenc hyma and CSF spaces are otherwise normal. VISUALIZED PARANASAL SINUSES: Well aerated. MASTOIDS: Well aerated. BONES: The bones appear intact. SOFT TISSUES: Visualized nasopharynx is normal. Soft tissue density in the left parietal scalp. Othe rwise, Superficial soft tissues are normal. IMPRESSION: Possible hypodensity in the jacob. MRI is advised. Otherwise, No acute intracranial findings. Reviewed, dictated and finalized at location A. IMPRESSION: Possible hypodensity in the jacob. MRI is advised. Otherwise, No acute intracran ial findings.
[2025-01-02 22:50] VITALS: PULSE 94; RESP 16; TEMP 36.4; O2SAT 99
--- OUTSIDE RECORDS SUMMARY | 2025-01-02 22:53 | XMS_ITS | Data Portability ---
Author Organization [facility] Address [address] [place] [address] Assessment No assessment recorded. Plan of Treatment [...] Address Organization Details Recorded Time Acute vaginitis 93552799 Active 2019 Vulvovagin itis;Recor ded Elsewhere: No Locatio n: [facility] rce: EHR Chroni c: N Practice ID: [id number] Billa ble Time: 03:30:00 PM Not Available [facility] 0 17:45:04 Bleeding 944364234 Active 2018 Abnormal uterine and vaginal bleeding, unspecifie d;Recorded Elsewhere: No Locatio n: [facility] Cecile rce: EHR Chroni c: N Practice ID: [id number] Billa ble Time: 01:00:00 PM Not Available [facility] 0 17:[facility]:04 Pelvic and perineal pain 796276987 Active 2018 Pelvic and perineal pain;Pract ice ID: 0001 Not Available [facility] 0 17:45:04 test negative 127759682 Active 2018 Encounter for test, result negative;P ractice ID: 0001 Not Available [facility] 0 17:45:04 Finding of menstrual bleeding Active 2018 Excessive and frequent menstruati on with regular cycle;Prac kylee ID: 0001 Not Available [facility] 0 17:45:04 Steriliza tion procedure Active 2019 Encounter for sterilizat ion;Practi ce ID: 0001 Not Available [facility] 0 17:45:05 Lesion of ovary Active 2019 Other ovarian cyst, right side;Pract ice ID: 0001 Not Available [facility] 0 17:45:[address] Concept Active 2019 Oth complicati ons of procedures , NEC, init;Pract ice ID: 0001 Not Available [facility] 0 17:45:05 Inflammat ory disease of the uterus 61993266 Active 2019 Inflammato ry disease of uterus, unspecifie d;Practice ID: 0001 Not Available [facility] 0 17:45:05 Urinary tract infectiou s disease 50271286 Active 2019 Urinary tract infection, site not specified; Practice ID: 0001 Not Available [facility] 0 17:45:[address] Concept Active 2019 Oth complicati ons of procedures , NEC, subs;Pract ice ID: 0001 Not Available [facility] 0 17:45:05 Sexual function painful Active 2019 Dyspareuni a;Recorded Elsewhere: No Locatio n: [facility] Cec[facility] rce: EHR Chroni c: N Practice ID: 0001 Billa ble Time: 03:30:00 PM Not Available [facility] 0 17:45:07 Notes:Infection following a procedure, unspecified, init Practice ID: 0001 Problem Notes None recorded. Procedures Surgical History Date Name Laterality Status Provider Name and Address Organization Details Recorded Time 020 TOTAL LAPAROSCOPIC HYSTERECTOMY (SURG) completed Rufina Luz [facility] 12/23/2019 14:32:37 013 cholecystectomy completed Elena Cross [facility] 12/16/2019 13:36:17 011 section completed Elena TRINH [facility] 12/16/2019 13:36:52 Imaging Results None recorded. Procedure Notes None recorded. Medical Equipment None Reported. Allergies Allergen ID Allergen Name Allergen Category Reaction Reaction Severity Criticality Documentation Date Start Date Code Code System Note Provider Name and Address Organization Details Recorded Time 59711 latex environme nt,medica tion Not available Not available Not available 07/09/2020 70797 91 RxNorm Comme nt: Locat ion: Kiran sahu [facility]; Not Available [facility] 0 14:20:58 Medications Name Sig Start [...] Prescrib ed Elsewher e: Yes Loca tion: [facility] odify By: anitra Encounte r DateTime : 12/05/19 19 01:00:00 PM Not Available Not Available Not Available ClearLax 17 gram/dose oral powder 01/01 completed Not Available Not Available Not Available Tirosint 13 mcg capsule take 1 capsule by oral route every day 09/02 completed Prescrib ed Elsewher e: Yes Loca tion: [facility] odify By: anitra Encounte r DateTime [...] Available Not Available Not Available Dexcom G6 Acid Splicer active Not Available Not Available Not Available Vitals Date Recorded Body height Body mass index (BMI) Body weight Systolic blood pressure Diastolic blood pressure Provider Name and Address Organization Details Last Updated DateTime 12/16/2019 165.1 cm 19.1 kg/m2 70939.12 g 99 mm[Hg] 64 mm[Hg] [facility] 0 11:42:35 Date Recorded Body height Body mass index (BMI) Body weight Systolic blood pressure Diastolic blood pressure Provider Name and Address Organization Details Last Updated DateTime 01/02/2020 165.1 cm 19 kg/m2 67353.53 g 106 mm[Hg] 72 mm[Hg] [place] 0 12:19:02 Date Recorded Body height Body mass index (BMI) Body weight Systolic blood pressure Diastolic blood pressure Provider Name and Address Organization Details Last Updated DateTime 01/05/2020 165.1 cm 19.3 kg/m2 14943.71 g 106 mm[Hg] 73 mm[Hg] [facility] 0 13:00:35 Social History None [...] Code Diagnosis Note [id number] Zeb Worley MD [facility] [address] [address] 12/16/2019 11:30:01 12/16/2019 15:48:11 Menorrhagia 664654658 N92.0 Chronic pe lvic pain of female 006548340 R10.2 Dysmenorrhea 090363843 N 94.6 This patient is a 29-year-ol d female with severe menorrhagi a, dysmenorrh ea, pelvic pain and dyspareuni a. We have agreed to perform total laparoscop ic hysterecto my and bilateral salpingo-o ophorectom y. She understand s the risk, benefits, and alternativ es. She is completed the informed consent process and is ready to proceed. [id number] Zeb Worley MD [facility] [address] [address] 01/02/2020 12:03:07 01/05/2020 20:37:39 Postoperative visit [id number] Z09 This patient is a 29-year-ol d female presents forpostopf ollow-up. She is 1weekposto pfrom aTLH.It was aTLHBSO. She is recovering normally. She feels great.She is having minimalmen opausal symptoms. She is receiving estrogen replacemen t therapy. e will follow-up as needed.She has no signsor symptoms ofDKA. [id number] Zeb Worley MD [facility] [address] [address] 01/05/2020 12:35:13 01/06/2020 15:29:36 Postoperative visit [id number] Z09 This patient is a 29-year-ol d [...] Recorded Advance Directives Directive None Recorded Payers Insurance Date Sequence Insurance Name Policy Number Policy Cantu Covered Member ID Cantu Member ID Guarantor Name 01/03/2020 1 [facility] PRIOR TO 01/20/2021 (MEDICAID REPLACEMENT - HMO) Steph Camacho [id number] Notes Date Note Type Note Provider Name [...] infection. Zeb Worley MD [address], [place], [address], [facility] 12/16/2019 14:37:13 01/02/2020 text/html Patient is a 29-year-old female presents for postop follow-up. She is one-week postop from a total laparoscopic hysterectomy and bilateral salpingo-oophorect екатерина. She is recovering normally. No evidence of DKA. Her blood sugars are well controlled Zeb Worley MD [address], [place], [address], [facility] 01/05/2020 20:37:38 01/05/2020 text/html This patient is a 29-year-old female presents for postop follow-up. She is 1 week postop from a [facility]. It was a [facility] BSO. She is recovering normally. She feels great. She is having minimal menopausal symptoms. She is receiving estrogen replacement therapy. She will follow-up as needed. She has no signs or symptoms of DKA. Zeb Worley MD [address], [place], [address], [facility] 01/05/2020 17:45:19 OBGyn Episode Ob Episode Information Episode Created Date Number of Fetuses Patient Bloodtype Patient rh Status Prepregnancy Weight lbs Domestic Partner Domestic Partner Phone Father Name Manager Managed Care Status 12/16/19 20 1 CLOSED Fetus Data [...]
--- NOTE | 2025-01-02 23:00 | ED_ITS ---
HPI - General Adult General Chief complaint: Unspecified Stated complaint: Low Blood Sugar Time Seen by Provider: 01/02/25 23:00 Source: patient Mode of arrival: ambulatory Limitations: no limitations History of Present Illness HPI narrative: 34-year-old female with a history of IBS, ovarian cyst, GERD, hypothyroidism, diabetes mellitus on insulin pump noted -- low blood sugars in the 40s. This happened at 10:20 p.m. The patient drank juice and ate a bowel of nodules following which her blood pressure did improve. -- The patient became unconscious for approximately 3 minutes with resolution and a blood sugar came up. The patient was treated with cellulitis around 3 weeks ago with Augmentin. A diabetic specialist increased the insulin on insulin pump. On presentation to the ED the patient was noted to have a blood sugar of 338, 306. Patient also complains of -- palpitation -- sweating the patient has been having recurrent low blood pressure was after her insulin pump was readjusted. The patient has been using intermittent glucagon. The patient ran out of the Glucagon injection as a result of which she could not take that during the episode of hypoglycemia which happened prior to coming to the ED. The patient was started on D10 drip by EMS. When his sugar was noted to be greater than 300 her D10 drip was discontinued. Onset (ago): hour(s) ( 1 hour ago) Associated symptoms: confusion and diaphoresis Treatments prior to arrival: other ( D 10 W) Related Data Home Medications ?Medication ?Instructions ?Recorded ?Confirmed ?Last Taken ?Type insulin lispro 100 unit/mL 3 unit continuous subcutaneous 07/25/19 01/03/25 07/27/24 History subcutaneous solution (Admelog infusion DIRECTED U-100 Insulin lispro) levothyroxine 50 mcg capsule 50 mcg PO DAILY 12/16/19 01/03/25 07/26/24 History blood-glucose sensor (Dexcom G6 11/06/20 07/27/24 05/30/24 History Sensor device) Allergies Allergy/AdvReac Type Severity Reaction Status Date / Time Latex, Natural Rubber Allergy Severe Hives Verified 01/02/25 23:50 peanut oil Allergy Severe Difficulty Verified 01/02/25 23:50 Breathing Review of Systems 2 Review of Systems: All systems reviewed & are unremarkable except as noted in HPI and below Constitutional: Constitutional: Reports as per HPI, Reports excessive sweating and Reports other ( unresponsive for 3 minutes with spontaneous resolution) Eyes: Eyes: Reports as per HPI and Reports no additional eye complaints ENT: Reports system reviewed and no additional complaints, except as documented and Reports as per HPI Cardiovascular: Cardiovascular: Reports as per HPI and Reports no additional cardiovascular complaints Respiratory: Respiratory: Reports as per HPI and Reports no additional respiratory complaints Gastrointestinal: Gastrointestinal: Reports as per HPI and Reports no additional gastrointestinal complaints Genitourinary: Genitourinary: Reports no additional female genitourinary complaints and Reports as per HPI Musculoskeletal: Musculoskeletal: Reports no additional musculoskeletal complaints and Reports as per HPI Integumentary/Breasts: Skin/Breast: Reports system reviewed and no additional complaints, except as docu Comments: right lateral thigh cellulitis of an area measuring 5 cm. She was seen for cellulitis in this region 3 weeks ago and prescribed Augmentin 875. Neurologic: Reports system reviewed and no additional complaints, except as documented and Reports as per HPI Comments: Transient unresponsiveness with spontaneous resolution Psychiatric: Psychiatric: Reports no additional psychiatric complaints and Reports as per HPI Endocrine: Endocrine: Reports no additional endocrine complaints and Reports as per HPI Hematologic/Lymphatic: Hematologic/Lymphatic: Reports no additional hematologic/lymphatic complaints and Reports as per HPI Allergic/Immunologic: Allergic/Immunologic: Reports no additional allergic/immunologic complaints and Reports as per HPI [facility] Past Medical History Medical History Urinary tract infection Endometriosis Irritable bowel syndrome with constipation Ovarian cyst Endometritis History of seizure As a child. History of UTI Hypothyroidism Type 1 diabetes mellitus Acute cervicitis GERD (gastroesophageal reflux disease) Dysmenorrhea Surgical History Surgical History H/O: hysterectomy 12/23/[address] san Status post cholecystectomy Status post ovarian cystectomy 08/06/19 Dr San. Status post tubal ligation 08/06/19 Dr San. Status post endometrial ablation 08/06/19 Dr San. Family History Family History Mother Lupus (systemic lupus erythematosus) Scleroderma Diabetes mellitus Heart disease Renal disease Cerebrovascular accident History of blood clots Grandparent Hypertension Father CAD (coronary artery disease) Social History Social History Social History: The patient lives in [place], [place] with her 8-year-old daughter. She is a ouhs-nq-tsxg mother and previously worked 15 years as a [employer]. She tells me she smokes 7-8 cigarettes a day for the last 10 years. She reports occasional marijuana use. She denies alcohol use. Her PCP is Dr. Rodney Grier. She designates her mother, Olya Rodriguez, as her surrogate decision maker and she is full code status. Smoking packs per day: 0.5 Smoking cigarettes per day: 10.0 Years smoked: 4 Smoking pack-years: 2.00 Smoking status: Current some day smoker Tobacco type: cigarettes Second hand tobacco smoke exposure: Yes Smoking end date: 12/22/19 Alcohol intake: never Drinks per week: 1 Substance use: current Substance use type: marijuana Last use: Patient reports last use of Marijuana about 3 weeks ago Gender identity (if verbalized by the patient): Female Sexual Orientation (if Verbalized by the Patient): Straight or Heterosexual Spiritual care concerns: No Agree to blood products: Yes Exam 2 Narrative: vital stable Const: General: cooperative, healthy appearing, comfortable and no acute distress Nutritional Appearance: average body habitus O rientation/consciousness: oriented to person, oriented to place, oriented to time and patient oriented x3 HENMT: Head: normal to inspection Eyes: General: appearance normal, both eyes and all related structures A lignment and Position: alignment normal Eyelids: eyelids normal C onjunctivae: conjunctivae normal Sclera: sclerae normal Cornea: corneas normal Pupils: Equal, round and reactive pupils present Neck: Neck: normal visual inspection, full ROM, no lymphadenopathy and no meningeal signs Chest: Chest palpation & inspection: normal inspection of the chest Resp: Effort & Inspection: normal respiratory effort Auscultation: clear to auscultation bilaterally Cardio: Palpation: normal PMI Rate: regular rate Rhythm: regular rhythm GI: Inspection: normal to inspection Other: no tenderness/rigidity/rebound. Back/Spine/Pelvis: Back: no CVA tenderness Skin: General skin exam: normal color Other: Right lateral thigh has a 5 cm erythematous area which is warm and tender to touch Neuro: General: oriented to person, oriented to place and oriented to time Extrem: General: normal to inspection, full ROM and capillary refill normal Psych: Appearance: grossly normal Mental Status: mental status grossly normal Course Course Emergency Course: hypoglycemia Currently hyperglycemic. Of dextrose drip. Will give a bolus of 500 mL of normal saline. transient unresponsiveness with low blood sugar which resolved spontaneously with improvement in blood sugar. Duration of unresponsiveness 3 minutes. Questionable pontine hypodensity-- The patient does not have any neuro deficits. No quadriparesis. No dysarthria or dysphagia. Will transfer the patient to neurology specialist Vital Signs Vital signs: Vital Signs Temperature 36.4 C 01/02/25 22:50 Pulse Rate 94 01/02/25 22:50 Respiratory Rate 16 01/02/25 22:50 Pulse Oximetry 99 01/02/25 22:50 Oxygen Delivery Room Air 01/02/25 22:50 Temperature 36.4 C 01/02/25 22:50 Pulse Rate 84 01/03/25 01:15 Respiratory Rate 16 01/03/25 01:15 Blood Pressure 120/81 01/03/25 01:15 Pulse Oximetry 100 01/03/25 01:15 Oxygen Delivery Room Air 01/02/25 22:50 Medical Decision Making MDM Narrative Medical decision making narrative: hypoglycemia transient unresponsiveness possibly secondary to hypoglycemia pontine hypodensity-- offered to transfer the patient to a neurologist. I explained to the patient the significance of pontine hypodensity. Patient wants to leave AMA. Differential Diagnosis Differential Diagnosis: CVA with stroke Medical Records Medical records reviewed: Yes I reviewed the external patient's medical records. Vital Signs Vital Signs: Vital Signs Temperature 36.4 C 01/02/25 22:50 Pulse Rate 94 01/02/25 22:50 Respiratory Rate 16 01/02/25 22:50 Pulse Oximetry 99 01/02/25 22:50 Oxygen Delivery Room Air 01/02/25 22:50 Temperature 36.4 C 01/02/25 22:50 Pulse Rate 84 01/03/25 01:15 Respiratory Rate 16 01/03/25 01:15 Blood Pressure 120/81 01/03/25 01:15 Pulse Oximetry 100 01/03/25 01:15 Oxygen Delivery Room Air 01/02/25 22:50 Lab Data Lab results reviewed: Yes I reviewed the patient's lab results. 01/02/25 23:26 01/02/25 23:26 Labs: Lab Results 01/02/25 01/02/25 01/02/25 Range/Units 23:08 23:26 23:51 WBC 5.3 (4.8-10.8) K/mm3 RBC 3.85 L (4.20-5.40) M/mm3 Hgb 11.7 L (12.0-15.0) g/dL Hct 35.3 (35.0-49.0) % MCV 91.7 (78.0-102.0) fL MCH 30.4 (27.0-31.0) pg MCHC 33.1 (32-36) g/dL RDW 12.0 (11.6-14.4) % Plt Count 294 (150-420) K/mm3 MPV 9.9 (9.2-11.8) fl Immature Gran % (Auto) 0.4 H (0.0-0.0) % Neut % (Auto) 58.3 (50.0-70.0) % Lymph % (Auto) 32.8 (18.0-42.0) % [place] % (Auto) 6.2 (2.0-11.0) % Eos % (Auto) 1.5 (1.0-6.0) % Baso % (Auto) 0.8 (0.0-1.0) % Lymph # (Auto) 1.74 (1.10-4.50) K/mm3 [place] # (Auto) 0.33 (0.10-0.90) K/mm3 Eos # (Auto) 0.08 (0.02-0.50) K/mm3 Baso # (Auto) 0.04 (0.00-0.10) K/mm3 Abs Immat Gran (auto) 0.02 H (0.00-0.00) K/mm3 Absolute Neuts (auto) 3.10 (1.70-7.20) K/mm3 Absolute Nucleated RBC 0.00 (0.00-0.00) K/mm3 Nucleated RBC % 0.0 (0-0.0) % Sodium 133 L (137-145) mmol/L Potassium 3.7 (3.4-5.0) mmol/L Chloride 102 (98-107) mmol/L Carbon Dioxide 26 (22-30) mmol/L Anion Gap 5 (4-12) mmol/L BUN 26 H (7-17) mg/dL Creatinine 1.11 H (0.7-1.0) mg/dL Estim Creat Clear Calc 46 ml/min Estimated GFR 56 L (59 - ) Glucose 272 H (65-110) mg/dL POC Capillary Glucose 303 H 338 H 286 H (65-105) mg/dl Calculated Osmolality 290 (285-295) mOsm/kg Lactic Acid 1.4 (0.4-2.0) mmol/L Calcium 8.7 (8.4-10.2) mg/dL Total Bilirubin 0.4 (0.2-1.3) mg/dL AST 32 (14-36) U/L ALT 23 (6-35) U/L Alkaline Phosphatase 94 (38-126) U/L Troponin I < 0.012 (0.000-0.034) ng/mL Total Protein 7.6 (6.3-8.2) g/dL Albumin 4.2 (3.5-5.1) g/dL Lipase 85 (23-300) U/L 01/03/25 01/03/25 Range/Units 00:26 01:00 WBC (4.8-10.8) K/mm3 RBC (4.20-5.40) M/mm3 Hgb (12.0-15.0) g/dL Hct (35.0-49.0) % MCV (78.0-102.0) fL MCH (27.0-31.0) pg MCHC (32-36) g/dL RDW (11.6-14.4) % Plt Count (150-420) K/mm3 MPV (9.2-11.8) fl Immature Gran % (Auto) (0.0-0.0) % Neut % (Auto) (50.0-70.0) % Lymph % (Auto) (18.0-42.0) % [place] % (Auto) (2.0-11.0) % Eos % (Auto) (1.0-6.0) % Baso % (Auto) (0.0-1.0) % Lymph # (Auto) (1.10-4.50) K/mm3 [place] # (Auto) (0.10-0.90) K/mm3 Eos # (Auto) (0.02-0.50) K/mm3 Baso # (Auto) (0.00-0.10) K/mm3 Abs Immat Gran (auto) (0.00-0.00) K/mm3 Absolute Neuts (auto) (1.70-7.20) K/mm3 Absolute Nucleated RBC (0.00-0.00) K/mm3 Nucleated RBC % (0-0.0) % Sodium (137-145) mmol/L Potassium (3.4-5.0) mmol/L Chloride (98-107) mmol/L Carbon Dioxide (22-30) mmol/L Anion Gap (4-12) mmol/L BUN (7-17) mg/dL Creatinine (0.7-1.0) mg/dL Estim Creat Clear Calc ml/min Estimated GFR (59 - ) Glucose (65-110) mg/dL POC Capillary Glucose 238 H 232 H (65-105) mg/dl Calculated Osmolality (285-295) mOsm/kg Lactic Acid (0.4-2.0) mmol/L Calcium (8.4-10.2) mg/dL Total Bilirubin (0.2-1.3) mg/dL AST (14-36) U/L ALT (6-35) U/L Alkaline Phosphatase (38-126) U/L Troponin I (0.000-0.034) ng/mL Total Protein (6.3-8.2) g/dL Albumin (3.5-5.1) g/dL Lipase (23-300) U/L Discharge Plan Discharge Clinical Impression: Hypoglycemia associated with type 2 diabetes mellitus, Unresponsive episode, Cerebrovascular accident (CVA) of pontine structure Patient Disposition: Left Against Medical Advice Condition: Unstable Patient Language: Turkish Prescriptions: No Action (DME) Dexcom G6 Sensor Device MISCELLANEOUS amoxicillin-pot clavulanate 875-125 mg tablet 1 tablet PO Q12H Qty: 14 0RF levothyroxine 75 mcg capsule 75 mcg PO DAILY Qty: 90 0RF insulin lispro [Admelog U-100 Insulin lispro] 100 unit/mL Solution 3 unit continuous subcutaneous infusion DIRECTED Rx Instructions: 3 UNITS/PER HOUR CONTINOUS INSULIN PUMP- BOLUS DOSE W MEALS levothyroxine 50 mcg Capsule 50 mcg PO DAILY Follow-up/Referrals: eRnee Hernandez MD [Primary Care Provider] - Time of Disposition: 01:25 Quality Stroke Date of last known normal: 01/02/25 Time of last known normal: 22:40 Stroke Scale Stroke Scale 1: 1a Level of consciousness: alert-0 1b Level of consciousness questions: answers both correctly-0 1c Level of consciousness commands: obeys both correctly-0 2 Best gaze: normal-0 3 Visual: no visual loss-0 4 Facial palsy: normal-0 5a Motor: left arm: no drift-0 5b Motor: right arm: no drift-0 6a Motor: left leg: no drift-0 6b Motor: right leg: no drift-0 7 Limb ataxia: absent-0 8 Sensory: normal-0 9 Best language: no aphasia-0 10 Dysarthria: normal-0 11 Extinction and inattention: no abnormality-0 Level:: 0
--- NOTE | 2025-01-02 23:02 | PC.NURSE ---
DR ODOM AT THE BEDSIDE
--- NOTE | 2025-01-02 23:09 | PC.NURSE ---
CURRENT BLOOD GLUCOSE IS 306. PATIENTS GLUCOSE READER IS AT 226
[2025-01-02 23:13] LABS: Glucose Point of Care 303 mg/dl (65-105)
--- NOTE | 2025-01-02 23:15 | PC.NURSE ---
LAB DRAW HAS BEEN COMPLETED
[2025-01-02 23:16] VITALS: BP 119/82; PULSE 85; RESP 18; O2SAT 100
--- NOTE | 2025-01-02 23:20 | ECG_ITS ---
Test Date: 2025-01-02 23:26:31 Measurements Intervals [place] Rate: 86 P: 31 NV: 131 QRS: 74 QRSD: 79 T: 68 QT: 371 QTc: 445 Interpretive Statements SINUS RHYTHM BORDERLINE R WAVE PROGRESSION, ANTERIOR LEADS BASELINE ARTIFACT- I, III, AVL BORDERLINE ECG Compared to ECG 01/04/2024 01:56:49 HEART RATE HAS DECREASED Electronically Signed On 01-03-2025 07:21:24 CDT by Pete Hernandez D.O.
--- NOTE | 2025-01-02 23:23 | PC.NURSE ---
BLOOD GLUCOSE 336, PER PATIENTS DEXCOM, READING AT 324
[2025-01-02 23:29] LABS: Glucose Point of Care 338 mg/dl (65-105)
[2025-01-02 23:37] LABS: Basophils Absolute Auto 0.04 K/mm3 (0.00-0.10); Basophils Percent Auto 0.8 % (0.0-1.0); Eosinophils Absolute Auto 0.08 K/mm3 (0.02-0.50); Eosinophils Percent Auto 1.5 % (1.0-6.0); Hematocrit 35.3 % (35.0-49.0); Hemoglobin 11.7 g/dL (12.0-15.0); Immature Granulocyte Absolute 0.02 K/mm3 (0.00-0.00); Immature Granulocyte Percent A 0.4 % (0.0-0.0); Lymphocytes Absolute Auto 1.74 K/mm3 (1.10-4.50); Lymphocytes Percent Auto 32.8 % (18.0-42.0); Mean Corpuscular HGB Conc 33.1 g/dL (32-36); Mean Corpuscular Hemoglobin 30.4 pg (27.0-31.0); Mean Corpuscular Volume 91.7 fL (78.0-102.0); Mean Platelet Volume 9.9 fl (9.2-11.8); Monocytes Absolute Auto 0.33 K/mm3 (0.10-0.90); Monocytes Percent Auto 6.2 % (2.0-11.0); Neutrophils Percent Auto 58.3 % (50.0-70.0); Platelet Count Result 294 K/mm3 (150-420); Red Blood Count 3.85 M/mm3 (4.20-5.40); White Blood Count 5.3 K/mm3 (4.8-10.8)
[2025-01-02 23:38] VITALS: BP 110/74; PULSE 92; RESP 16; O2SAT 100
--- NOTE | 2025-01-02 23:44 | PC.NURSE ---
PATIENT IS RESTING ON STRETCHER. FAMILY MEMBER AT THE BEDSIDE. PATIENT CONTINUES TO CHECK HER BLOOD SUGAR VIA DEXCOM CGM.
[2025-01-02 23:46] VITALS: BP 107/67; PULSE 94; RESP 18; O2SAT 100
--- NOTE | 2025-01-02 23:49 | PC.NURSE ---
MONICA MCCARTY, AT THE BEDSIDE REPEATING BLOOD GLUCOSE
[2025-01-02 23:55] LABS: Alanine Aminotransferase 23 U/L (6-35); Albumin Level 4.2 g/dL (3.5-5.1); Alkaline Phosphatase 94 U/L (38-126); Anion Gap 5 mmol/L (4-12); Aspartate Amino Transferase 32 U/L (14-36); Bilirubin,Total 0.4 mg/dL (0.2-1.3); Blood Urea Nitrogen 26 mg/dL (7-17); Calcium 8.7 mg/dL (8.4-10.2); Carbon Dioxide 26 mmol/L (22-30); Chloride 102 mmol/L (98-107); Estimated CRCL calculation 46 ml/min; Estimated Glomerular Filt Rate 56; Glucose 272 mg/dL (65-110); Lipase 85 U/L (23-300); Osmolality Calculated 290 mOsm/kg (285-295); Potassium 3.7 mmol/L (3.4-5.0); Sodium 133 mmol/L (137-145); Total Protein 7.6 g/dL (6.3-8.2)
[2025-01-02 23:55] LABS: Glucose Point of Care 286 mg/dl (65-105)
[2025-01-02 23:56] LABS: Lactic Acid Reflex 1.4 mmol/L (0.4-2.0)
[2025-01-03 00:01] VITALS: BP 100/61; PULSE 90; RESP 16; O2SAT 100
[2025-01-03 00:07] LABS: Troponin I < 0.012 ng/mL (0.000-0.034)
[2025-01-03 00:16] VITALS: BP 99/62; PULSE 92; RESP 16; O2SAT 100
--- NOTE | 2025-01-03 00:26 | PC.NURSE ---
BLOOD GLUCOSE 238. DEXCOM READING 221. DR ODOM HAS BEEN NOTIFIED
[2025-01-03 00:29] LABS: Glucose Point of Care 238 mg/dl (65-105)
[2025-01-03 00:31] VITALS: BP 114/76; PULSE 97; RESP 18; O2SAT 100
[2025-01-03] MEDS: SODIUM CHLORIDE 0.9% IV 500 ML 999 ML IV CONT (00:32)
[2025-01-03 00:46] VITALS: BP 131/90; PULSE 84; RESP 16; O2SAT 100
--- NOTE | 2025-01-03 00:54 | PC.NURSE ---
PATIENT WAS MADE AWARE THAT DR ODOM WOULD LIKE TO TRANSFER PATIENT TO ANOTHER FACILITY FOR NEUROLOGY AND MRI SCAN. PATIENT IS UPSET THAT SHE WOULD HAVE TO BE TRANSFERRED. PATIENT STATES I PASSED OUT BECAUSE MY SUGAR WAS LOW. EXPLAINED RESULTS OF CT TO PATIENT AGAIN. ENCOURAGED PATIENT TO BE SEEN BY NEUROLOGY AND HAVE MRI DONE CONSIDERING RESULTS OF CT. PATIENT AT THIS TIME IS UNSURE OF WHAT SHE WANTS TO DO. PATIENT WANTS TO FOLLOW UP WITH PCP AND HAVE OUTPATIENT APPOINTMENT MADE WITH NEUROLOGY. DR ODOM HAS BEEN NOTIFIED. WILL CHECK BACK WITH PATIENT IN APPROX 10 MINUTES
[2025-01-03 01:00] VITALS: BP 109/82; PULSE 86; RESP 16; O2SAT 100
[2025-01-03 01:04] LABS: Glucose Point of Care 232 mg/dl (65-105)
[2025-01-03 01:15] VITALS: BP 120/81; PULSE 84; RESP 16; O2SAT 100
--- NOTE | 2025-01-03 01:18 | PC.NURSE ---
PATIENT HAS DECIDED THAT SHE DOES NOT WANT TO BE TRANSFERRED FOR FURTHER TESTING. EXPLAINED RISKS AND BENEFITS AGAIN TO PATIENT. CONTINUES TO WANT TO LEAVE. DR ODOM HAS BEEN UPDATED. HE HAS BEEN GIVEN AMA FORM TO FILL OUT
--- NOTE | 2025-01-03 01:23 | PC.NURSE ---
PATIENT IV BEING REMOVED. PATIENT BEING REMOVED FROM MONITOR.
== END 2025-01-03 01:37 | disposition left against medical advice (07) ==
PROVIDERS: Emergency Provider Internal Medicine Critical Care Medicine; PCP Family Medicine
DX: E10.641 Type 1 diabetes mellitus with hypoglycemia with coma (principal); I63.89 Other cerebral infarction; E03.9 Hypothyroidism, unspecified; F17.210 Nicotine dependence, cigarettes, uncomplicated
CPT/HCPCS: 36415; 70450; 80053; 82948; 83605; 83690; 84484; 85025; 93005; 99284; J7040

== ENCOUNTER 2025-03-03 22:30 | Emergency (ER) | payer OTHER, SELFPAY ==
[2025-03-03 22:31] VITALS: BP 132/89; PULSE 86; RESP 14; TEMP 36.6; O2SAT 99
--- NOTE | 2025-03-03 22:32 | ED_ITS ---
HPI - Female Genitourinary General Chief complaint: Urogenital-Female Stated complaint: Sick Time Seen by Provider: 03/03/25 22:31 Source: patient Mode of arrival: ambulatory Limitations: no limitations History of Present Illness HPI Narrative: Patient is a 34-year-old female with diabetes 1 here with not feeling well and having some increased frequency of urination and some lower back pain bilaterally. No fever chills. No nausea vomiting or diarrhea. She has some diffuse abdominal pain more so at the suprapubic region. She took azo. Blood sugars at home have been in range. MD elicited complaint: UTI ( Increased urination frequency) and back pain Pertinent past history: hysterectomy Onset (ago): day(s) (2) Location of symptoms: suprapubic and low back Severity: mild Female Urogenital Radiation: Suprapubic Severity scale (1-10): 3 Quality of pain: stabbing Consistency: constant Vaginal discharge: none Vaginal bleeding: none Urinary symptoms: Urgency and Frequency Exacerbating factors: none Relieving factors: none Associated symptoms: headaches and back pain Treatment prior to arrival: none Sexual activity: Yes Patient : No Related Data Home Medications ?Medication ?Instructions ?Recorded ?Confirmed ?Last Taken ?Type insulin lispro 100 unit/mL 3 unit continuous subcutaneous 07/25/19 01/03/25 07/27/24 History subcutaneous solution (Admelog infusion DIRECTED U-100 Insulin lispro) levothyroxine 50 mcg capsule 50 mcg PO DAILY 12/16/19 01/03/25 07/26/24 History blood-glucose sensor (Dexcom G6 11/06/20 07/27/24 05/30/24 History Sensor device) Allergies Allergy/AdvReac Type Severity Reaction Status Date / Time Latex, Natural Rubber Allergy Severe Hives Verified 03/03/25 22:35 peanut oil Allergy Severe Difficulty Verified 03/03/25 22:35 Breathing Review of Systems 2 Review of Systems: All systems reviewed & are unremarkable except as noted in HPI and below Constitutional: Constitutional: Reports no additional constitutional complaints Eyes: Eyes: Reports no additional eye complaints ENT: Reports system reviewed and no additional complaints, except as documented Cardiovascular: Cardiovascular: Reports no additional cardiovascular complaints Respiratory: Respiratory: Reports no additional respiratory complaints Gastrointestinal: Gastrointestinal: Reports no additional gastrointestinal complaints Genitourinary: Genitourinary: Reports no additional female genitourinary complaints Musculoskeletal: Musculoskeletal: Reports no additional musculoskeletal complaints Integumentary/Breasts: Skin/Breast: Reports system reviewed and no additional complaints, except as docu Neurologic: Reports system reviewed and no additional complaints, except as documented Psychiatric: Psychiatric: Reports no additional psychiatric complaints Endocrine: Endocrine: Reports no additional endocrine complaints Hematologic/Lymphatic: Hematologic/Lymphatic: Reports no additional hematologic/lymphatic complaints Allergic/Immunologic: Allergic/Immunologic: Reports no additional allergic/immunologic complaints PMFSH Past Medical History Medical History Urinary tract infection Endometriosis Irritable bowel syndrome with constipation Ovarian cyst Endometritis History of seizure As a child. History of UTI Hypothyroidism Type 1 diabetes mellitus Acute cervicitis GERD (gastroesophageal reflux disease) Dysmenorrhea Surgical History Surgical History H/O: hysterectomy 12/23/[address] san Status post cholecystectomy Status post ovarian cystectomy 08/06/19 Dr San. Status post tubal ligation 08/06/19 Dr San. Status post endometrial ablation 08/06/19 Dr San. Family History Family History Mother Lupus (systemic lupus erythematosus) Scleroderma Diabetes mellitus Heart disease Renal disease Cerebrovascular accident History of blood clots Grandparent Hypertension Father CAD (coronary artery disease) Social History Social History Social History: The patient lives in [place], [place] with her 8-year-old daughter. She is a [id number] mother and previously worked 15 years as a [employer]. She tells me she smokes 7-8 cigarettes a day for the last 10 years. She reports occasional marijuana use. She denies alcohol use. Her PCP is Dr. Rodney Grier. She designates her mother, Olya Rodriguez, as her surrogate decision maker and she is full code status. Smoking packs per day: 0.5 Smoking cigarettes per day: 10.0 Years smoked: 4 Smoking pack-years: 2.00 Smoking status: Current some day smoker Tobacco type: cigarettes Second hand tobacco smoke exposure: Yes Smoking end date: 12/22/19 Alcohol intake: never Drinks per week: 1 Substance use: current Substance use type: marijuana Last use: Patient reports last use of Marijuana about 3 weeks ago Gender identity (if verbalized by the patient): Female Sexual Orientation (if Verbalized by the Patient): Straight or Heterosexual Spiritual care concerns: No Agree to blood products: Yes Exam 2 Const: General: healthy appearing and no acute distress Nutritional Appearance: well nourished Orientation/consciousness: patient oriented x3 Limitations: no limitations HENMT: Head: normal to inspection Ears: external ears normal F nimesh/Nose/Sinus: Normal external nose present Eyes: Conjunctivae: conjunctivae normal Pupils: Equal, round and reactive pupils present EOM: EOMs intact bilaterally Neck: Neck: normal visual inspection Chest: Chest palpation & inspection: normal inspection of the chest Resp: Effort & Inspection: normal respiratory effort and not labored A uscultation: clear to auscultation bilaterally and no crackles Cardio: Rate: regular rate Rhythm: regular rhythm Heart sounds: no murmurs GI: Inspection: non-distended GI Palp: Yes Soft to palpation, Yes Tenderness to palpation present (GI) ( suprapubic), No Guarding due to palpation present (GI), No Rigid due to palpation, No Hernia present, No Palpable mass present and No Rebound tenderness present Auscultation: normal bowel sounds : General: Yes bladder normal to palpation Back/Spine/Pelvis: Back: no CVA tenderness Skin: General skin exam: normal color Rashes: no rashes Wounds: no wounds Neuro: General: patient oriented x3, moves all extremities and no meningeal signs Extrem: General: normal to inspection Psych: Appearance: grossly normal Mental Status: mental status grossly normal Affect: normal affect Course Vital Signs Vital signs: Vital Signs Temperature 36.6 C 03/03/25 22:31 Pulse Rate 86 03/03/25 22:31 Respiratory Rate 14 03/03/25 22:31 Blood Pressure 132/89 03/03/25 22:31 Pulse Oximetry 99 03/03/25 22:31 Oxygen Delivery Room Air 03/03/25 22:31 Temperature 36.6 C 03/03/25 22:31 Pulse Rate 86 03/03/25 22:31 Respiratory Rate 14 03/03/25 22:31 Blood Pressure 132/89 03/03/25 22:31 Pulse Oximetry 99 03/03/25 22:31 Oxygen Delivery Room Air 03/03/25 22:31 MDM - Female Genitourinary MDM Narrative Medical decision making narrative: patient is a 34-year-old female with diabetes 1 here with urinary changes and associated headache. She is to get an MRI of her brain with her primary doctor planned from her last ER visit for an abnormality in the jacob. We will check some labs and urine. Blood sugar was 91. No laboratory data to suggest DKA. Lab Data Attestation: I reviewed the patient's lab results. 03/03/25 22:51 03/03/25 22:51 Labs: Lab Results 03/03/25 03/03/25 03/03/25 Range/Units 22:30 22:44 22:51 WBC 6.4 (4.8-10.8) K/mm3 RBC 4.06 L (4.20-5.40) M/mm3 Hgb 12.1 (12.0-15.0) g/dL Hct 37.1 (35.0-49.0) % MCV 91.4 (78.0-102.0) fL MCH 29.8 (27.0-31.0) pg MCHC 32.6 (32-36) g/dL RDW 12.0 (11.6-14.4) % Plt Count 249 (150-420) K/mm3 MPV 9.5 (9.2-11.8) fl Immature Gran % (Auto) 0.2 H (0.0-0.0) % Neut % (Auto) 52.7 (50.0-70.0) % Lymph % (Auto) 37.2 (18.0-42.0) % [place] % (Auto) 7.2 (2.0-11.0) % Eos % (Auto) 1.6 (1.0-6.0) % Baso % (Auto) 1.1 H (0.0-1.0) % Lymph # (Auto) 2.39 (1.10-4.50) K/mm3 [place] # (Auto) 0.46 (0.10-0.90) K/mm3 Eos # (Auto) 0.10 (0.02-0.50) K/mm3 Baso # (Auto) 0.07 (0.00-0.10) K/mm3 Abs Immat Gran (auto) 0.01 H (0.00-0.00) K/mm3 Absolute Neuts (auto) 3.39 (1.70-7.20) K/mm3 Absolute Nucleated RBC 0.00 (0.00-0.00) K/mm3 Nucleated RBC % 0.0 (0-0.0) % Sodium 138 (137-145) mmol/L Potassium 4.0 (3.4-5.0) mmol/L Chloride 104 (98-107) mmol/L Carbon Dioxide 30 (22-30) mmol/L Anion Gap 4 (4-12) mmol/L BUN 22 H (7-17) mg/dL Creatinine 0.83 (0.7-1.0) mg/dL Estim Creat Clear Calc 59 ml/min Estimated GFR > 60 (59 - ) Glucose 101 (65-110) mg/dL POC Capillary Glucose 91 (65-105) mg/dl Calculated Osmolality 289 (285-295) mOsm/kg Lactic Acid 1.0 (0.4-2.0) mmol/L Calcium 9.3 (8.4-10.2) mg/dL Total Bilirubin 0.5 (0.2-1.3) mg/dL AST 27 (14-36) U/L ALT 23 (6-35) U/L Alkaline Phosphatase 106 (38-126) U/L Total Protein 7.8 (6.3-8.2) g/dL Albumin 4.4 (3.5-5.1) g/dL Urine Color Kristine A (Yellow) Urine Appearance Clear (Clear) Urine pH 7.0 (5.0-8.0) Ur Specific [place] 1.015 (1.010-1.020) Urine Protein 2+ H (Negative) Urine Glucose (UA) Negative (Negative) Urine Ketones Negative (Negative) Ur Blood (Man) Negative (Negative) Urine Nitrate Positive H (Negative) Urine Bilirubin Negative (Negative) Urine Urobilinogen 1.0 (0.2-1.0) mg/dL Leukocyte Esterase Rfl Negative (Negative) KURT/UL Urine RBC 3-5 H (0-2) /hpf Urine WBC 10-15 H (0-3) /hpf Ur Squamous Epith Cells Few (Few) /hpf Urine Bacteria Trace (None) /hpf Urine Test Negative Discharge Plan Discharge Clinical Impression: Acute UTI Patient Disposition: Home Condition: Stable Instructions: Antibiotic Form, Urinary Tract Infection in Women (ED) Patient Language: Mohawk Prescriptions: New sulfamethoxazole-trimethoprim [Bactrim DS] 800-160 mg tablet 1 tablet PO BID 7 Days Qty: 14 0RF No Action (DME) Dexcom G6 Sensor Device MISCELLANEOUS amoxicillin-pot clavulanate 875-125 mg tablet 1 tablet PO Q12H Qty: 14 0RF levothyroxine 75 mcg capsule 75 mcg PO DAILY Qty: 90 0RF insulin lispro [Admelog U-100 Insulin lispro] 100 unit/mL Solution 3 unit continuous subcutaneous infusion DIRECTED Rx Instructions: 3 UNITS/PER HOUR CONTINOUS INSULIN PUMP- BOLUS DOSE W MEALS levothyroxine 50 mcg Capsule 50 mcg PO DAILY Follow-up/Referrals: Renee Hernandez MD [Primary Care Provider] - Time of Disposition: 23:12
--- OUTSIDE RECORDS SUMMARY | 2025-03-03 22:32 | XMS_ITS | Clinical Summary ---
Author Organization [facility] Address [address] [place] [address] Care Team Providers Care Rn Physician Office Name Role Phone Renee Hernandez MD Primary Care Provider [phone] Allergies Active Allergy Reactions Criticality Noted Date Comments Latex Hives 07/27/2019 Peanut-Containing Drug Products Anaphylaxis High 11/2019 Medications levothyroxine 25 MCG tablet Take 40 mcg by mouth daily. 4 05/22/20 Active pantoprazole EC 40 MG tablet Take 40 mg by mouth daily. 3 05/22/20 19 Active NON FORMULARYIndicatio ns:avalog insulin via continuous [...] Problem Noted Date Diagnosed Date Diabetic ketoacidosis ([facility]) 04/08/20 18 High anion gap metabolic acidosis 04/08/2018 Type 1 diabetes mellitus ([facility]) 04/08 Hyponatremia 04/08/2018 Hyperglycemia 04/08/2018 Hyperlipidemia 04/08/2018 Smoker 04/08/2018 Anxiety 04/08/2018 Depression 04/08/2018 UTI (urinary tract infection) 04/08/2018 Immunizations Immunization Administration Dates Next Due Dtp (Generic) 03/01/1994,10/10/1991,01/31/1991 [...] 110 03/30/2021 6:40 PM CDT Temperature 36.4 C (97.5 F) 03/30/2021 6:40 PM CDT Respiratory Rate 18 03/30/2021 6:40 PM CDT Oxygen Saturation 97% 03/30/2021 6:40 PM CDT Inhaled Oxygen Concentration - - Weight 48.7 kg (107 lb 6 oz) 03/30/2021 6:40 PM CDT Height 165.1 cm (5' 5) 03/30/2021 6:40 PM CDT Body Mass Index 17.87 03/30/2021 6:40 PM CDT Plan of Treatment Health Maintenance Due Date Last Done Comments Kidney Health Evaluation 1988 Annual Physical 11/28/1991 DTaP, Tdap and Td Vaccines (5 - Tdap) 03/07/2003 03/06/2003, 03/01/1994, 10/10/1991, Additional history exists Diabetes: Retinopathy Eye Exam 2006 Hepatitis C 2006 HPV Vaccines (1 - 3-dose SCDM series) 11/28/2015 Pneumococcal Vaccine: Pediatrics (0 to 5 Years) and At-Risk Patients (6 to 49 Years) (2 of 2 - PCV) 06/23/2016 06/23/2015 Hemoglobin A1C 10/06/2018 04/08/2018, 04/24/2017 Cervical Cancer Screening Pap with HPV Testing (Age 30 to 64) Every 5 Years 2018 Lipid Panel 04/08/2019 04/08/2018 Cervical Cancer Screening Pap Smear (Age 30 to 64) Every 3 Years 04/08/2021 04/08/2018, 04/08/2018 Cervical Cancer Screening with HPV 04/08/2021 COVID-19 Vaccine (2023- season) 2024 Hepatitis B Vaccines Completed 10/11/1998, 06/14/1998, 04/15/1998 Meningococcal B Vaccine Aged Out No l onger eligible based on patient's age to complete this topic Meningococcal Vaccine Aged Out No fernanda criselda eligible based on patient's age to complete this topic RSV Immunizations Under 20 Months Aged Out No longer eligible based on patient's age to complete this topic Procedures Procedure Name Priority Date/Time Associated Diagnosis Comments HEMOGLOBIN, GLYCOSYLATED Routine 04/08/2018 12:41 PM CDT LIPID PANEL Routine 04/08/2018 12:13 PM CDT CYTOPATH CERV/VAG THIN LAYER Routine 04/08/2018 6:52 AM CDT from Last 3 Months or Most Recently Relevant to Health Maintenance Results * (ABNORMAL) HEMOGLOBIN, GLYCATED (04/08/2018 12:41 PM CDT) HGB A1C 10.2(H) 4.2 - 6.3 % 04/09/2018 4:13 AM CDT [facility] ESTIMATED AVG GLUCOSE 246(H) 74 - 106 MG/DL 04/09/2018 4:13 AM CDT [facility] 04/08/2018 12:4 1 PM CDT [facility] Final R esult Performing Organization Address City/[facility]/ZIP Co de Phone Number [facility] [address] [place] [address], [place] [phone] * (ABNORMAL) LIPID PANEL (04/08/2018 12:13 PM [...] 04/08/2018 12:1 3 PM CDT [facility] Final R esult Performing Organization Address [facility] Co de Phone Number [facility] [address] [place] [address], [place] [phone] * Cytopath Cerv/Vag Thin Layer (04/08/2018 6:52 AM CDT) THIN PREP PAP [facility] [address] [place] [address] Department of Pathology Pathology Report CERVICAL/VAGINAL PAP SMEAR REPORT Name: STEPH ROBERTO Armida Age: 5 1990 (Age: 27) Location: [address] Sex: F Collected Date: 04/08/2018 Hospital #: [id number] Date Received: 04/11/2018 Date Reported: 04/12/2018 Provider: SABA DOMINIQUE INTERPRETATION CERVICAL/ENDOCERVI KENN, PAP TEST: SATISFACTORY FOR EVALUATION. ENDOCERVICAL/TRANS FORMATION ZONE COMPONENT PRESENT. NEGATIVE FOR INTRAEPITHELIAL LESION OR MALIGNANCY. SHIFT IN BACTERIAL DENNIS SUGGESTIVE OF BACTERIAL VAGINOSIS. Electronically Signed Out Chet Durant M.D. Brooke Stoll, LYNDSEY (ASCP) CLINICAL HISTORY HEALTH MAINTENANCE ThinPrep Pap Test Only Date of Last Menstrual Period: 03/16/18 Menstrual Status: Regular SPECIMEN SUBMITTED CERVICAL/ENDOCERVI KENN Specimen Received:1 Thin Prep Vial, Image Assisted Pap (SMD) Please note: The Pap smear is not a diagnostic test. It is a screening test. Negative results on combined screening (Pap test and HPV-DNA) have a high negative predictive value (99.1-100 percent) for cervical cancer. The pap test is not effective in detecting cervical adenocarcinoma. [facility] 04/08/2018 6:52 AM CDT 04/11/2018 6:52 AM CDT Comment:CERVICAL/ENDOCERVICA L us Saba Alejandre MD PATHOLOGY/CYTOLOGY ORDERABLES F inal Result [facility] [address] [place] [address], from Last 3 Months or Most Recently Relevant to Health Maintenance Insurance [facility] Advance Directives * Full Code (Latest Code Status on File) Date Activated Date Inactivated Comments 04/08/2018 12:45 PM 04/11/2018 7:42 PM Care Teams Rn Physician Office Relationship Specialty Start Date End Date Renee Hernandez MD [address] [place] [id number] PCP - General FAMILY PRACTICE 03/19/21
--- OUTSIDE RECORDS SUMMARY | 2025-03-03 22:32 | XMS_ITS | Encounter Summary ---
Author Organization [facility] Address [address] [place] [address] Care Team Providers Care Floor Associate Name Role Phone Isaias Grier MD Primary Care Provider [phone] Renee Hernandez MD Primary Care Provider [phone] Encounter Details Date Type Department Care Team (Late st Contact Info) Description 12/28/2018 Abstract SFL CONVERSION [address] [place] [address] , Generic Conversion, Social History Tobacco Use [...] documented as of this encounter Care Teams Floor Associate Relationship Specialty Start Date End Date Isaias Grier MD [address] [place] [phone] PCP - General FAMILY PRACTICE 01/29/19 03/18/21 Renee Hernandez MD [address] [place] [phone] PCP - General FAMILY PRACTICE 03/19/21 documented as of this encounter
[2025-03-03 22:39] LABS: Appearance Urine Clear (Clear); Glucose Urine UA Negative (Negative); Leukocyte Esterase Ur Negative LEU/UL (Negative); Nitrate Urine Positive (Negative); Specific Grav Ur 1.015 (1.010-1.020)
[2025-03-03 22:43] LABS: Pregnancy On Board Control Positive
[2025-03-03 22:56] LABS: Hematocrit 37.1 % (35.0-49.0); Hemoglobin 12.1 g/dL (12.0-15.0); Immature Granulocyte Percent A 0.2 % (0.0-0.0); Lymphocytes Absolute Auto 2.39 K/mm3 (1.10-4.50); Mean Corpuscular HGB Conc 32.6 g/dL (32-36); Mean Corpuscular Hemoglobin 29.8 pg (27.0-31.0); Mean Corpuscular Volume 91.4 fL (78.0-102.0); Nucleated Red Blood Cells Absolute Auto 0.00 K/mm3 (0.00-0.00); Nucleated Red Blood Cells Perc 0.0 % (0-0.0); Platelet Count Result 249 K/mm3 (150-420); Red Blood Count 4.06 M/mm3 (4.20-5.40); White Blood Count 6.4 K/mm3 (4.8-10.8)
[2025-03-03 22:57] LABS: Add Urine Microscopic? YES
[2025-03-03 23:08] LABS: Alanine Aminotransferase 23 U/L (6-35); Albumin Level 4.4 g/dL (3.5-5.1); Alkaline Phosphatase 106 U/L (38-126); Anion Gap 4 mmol/L (4-12); Aspartate Amino Transferase 27 U/L (14-36); Bilirubin,Total 0.5 mg/dL (0.2-1.3); Blood Urea Nitrogen 22 mg/dL (7-17); Calcium 9.3 mg/dL (8.4-10.2); Carbon Dioxide 30 mmol/L (22-30); Chloride 104 mmol/L (98-107); Estimated CRCL calculation 59 ml/min; Estimated Glomerular Filt Rate > 60; Glucose 101 mg/dL (65-110); Osmolality Calculated 289 mOsm/kg (285-295); Potassium 4.0 mmol/L (3.4-5.0); Sodium 138 mmol/L (137-145); Total Protein 7.8 g/dL (6.3-8.2)
[2025-03-03] MEDS: SULFAMETHOXAZOLE/TRIMETHOPRIM 800/160 MG DS TABLET 1 TAB PO (23:20)
--- NOTE | 2025-03-06 12:45 | PC.NURSE ---
URINE CULTURE FINAL NO GROWTH
== END 2025-03-03 23:25 | disposition home or self-care (01) ==
PROVIDERS: Emergency Provider Emergency Medicine; PCP Family Medicine
DX: N39.0 Urinary tract infection, site not specified (principal); E10.9 Type 1 diabetes mellitus without complications; E03.9 Hypothyroidism, unspecified; F17.210 Nicotine dependence, cigarettes, uncomplicated
CPT/HCPCS: 36415; 80053; 81001; 81025; 82948; 83605; 85025; 99283; A9270